=== PATIENT | female | born 1980 | race American Indian/Alaskan Native ===

== ENCOUNTER 2016-05-09 16:28 | Observation (INO) | payer OTHER ==
[2016-05-09 16:42] VITALS: BMI 20.7
[2016-05-09] MEDS ORDERED: Sodium Chloride 0.9% 1,000 ML IV STA (17:12)
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
[2016-05-09 17:40] LABS: HEMATOCRIT 24.5 % (36.0-48.0); MEAN CELL VOLUME 95.7 fL (80.0-105.0); MEAN CORPUSCULAR HEMOGLOBIN 34.4 pg (25.0-35.0); MEAN CORPUSCULAR HGB CONC 35.9 g/dl (31.0-37.0); MEAN PLATELET VOLUME 10.7 fl (7.0-11.0); PLATELET COUNT 149 10^3/uL (120.0-450.0); WHITE BLOOD COUNT 8.3 10^3/ul (4.5-11.0)
[2016-05-09 17:43] LABS: ADD MANUAL DIFF? YES
[2016-05-09 17:44] LABS: RETIC% 15.89 % (0.5-1.5)
[2016-05-09 17:47] LABS: ALB/GLOB RATIO 0.8 (1.1-1.8); ALKALINE PHOSPHATASE 121 U/L (38-133); ALT/SGPT 91 U/L (7-56); AST/SGOT 148 U/L (15-39); BILIRUBIN,TOTAL 2.6 mg/dL (0.2-1.3); BLOOD UREA NITROGEN 16 mg/dL (7-21); CALCIUM 9.2 mg/dL (8.4-10.5); CARBON DIOXIDE 33 mmol/L (21-33); CHLORIDE 96 mmol/L (98-107); GFR AFRICAN-AMERICAN > 60; GLUCOSE,RANDOM 107 mg/dL (70-110); POTASSIUM 4.3 mmol/L (3.6-5.0); SODIUM 137 mmol/L (132-148); TOTAL PROTEIN 8.4 g/dL (5.8-8.3)
[2016-05-09] MEDS ORDERED: HYDROmorphone 1 mg/ml ISec IVP STA ×2 (18:20→19:53)
[2016-05-09 18:21] LABS: EOSINOPHIL 3 % (0.0-3.0); NEUTROPHIL 38 % (50.0-70.0); NUCLEATED RED BLOOD CELL 3 %
[2016-05-09 18:22] LABS: ANISOCYTOSIS 2+; HYPOCHROMIA 1+; LARGE PLATELETS PRESENT; MICROCYTOSIS 1+; POIKILOCYTOSIS 2+; POLYCHROMASIA 1+; TARGET CELLS 1+
[2016-05-09 19:32] LABS: INR 1.09 (0.93-1.08); PARTIAL THROMBOPLASTIN TIME 27.3 Seconds (23.7-30.8)
[2016-05-09] MEDS ORDERED: Sodium Chloride 0.9% 500 ML IV STA (19:54)
[2016-05-10] MEDS ORDERED: FLUTICASONE PROPIONATE 110 MCG PO PRN (00:35)
[2016-05-10] MEDS: HYDROmorphone 0.5 mg/0.5 ml ISec IVP PRN ×6 (00:56→20:32)
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
[2016-05-10] MEDS: Potassium Chloride 20 MEQ in Dextrose 5%/0.45% NS 1,000 ML IV SCH ×3 (01:56→17:09)
[2016-05-10 07:52] LABS: ADD MANUAL DIFF? NO
[2016-05-10 07:58] LABS: BASO # 0.03 K/mm3 (0.0-2.0); BASO % 0.4 % (0.0-3.0); EOS # 0.1 (0.0-0.7); EOS % 1.7 % (1.5-5.0); GRAN % 33.4 % (50.0-68.0); LYMPH % 51.9 % (22.0-35.0); MEAN CELL VOLUME 97.6 fL (80.0-105.0); MEAN CORPUSCULAR HEMOGLOBIN 34.4 pg (25.0-35.0); MEAN CORPUSCULAR HGB CONC 35.3 g/dl (31.0-37.0); MEAN PLATELET VOLUME 10.2 fl (7.0-11.0); MONO % 12.6 % (1.0-6.0); PLATELET COUNT 135 10^3/uL (120.0-450.0); WHITE BLOOD COUNT 7.8 10^3/ul (4.5-11.0)
[2016-05-10 08:12] LABS: ALB/GLOB RATIO 0.8 (1.1-1.8); ALKALINE PHOSPHATASE 100 U/L (38-133); ALT/SGPT 82 U/L (7-56); AST/SGOT 129 U/L (15-39); BILIRUBIN,DIRECT 0.8 mg/dL (0.0-0.4); BILIRUBIN,TOTAL 1.8 mg/dL (0.2-1.3); BLOOD UREA NITROGEN 11 mg/dL (7-21); CALCIUM 8.1 mg/dL (8.4-10.5); CARBON DIOXIDE 29 mmol/L (21-33); CHLORIDE 102 mmol/L (98-107); GFR AFRICAN-AMERICAN > 60; GLUCOSE,RANDOM 97 mg/dL (70-110); MAGNESIUM 1.7 mg/dL (1.7-2.2); PHOSPHOROUS 4.4 mg/dL (2.5-4.5); POTASSIUM 4.5 mmol/L (3.6-5.0); SODIUM 136 mmol/L (132-148); TOTAL PROTEIN 7.2 g/dL (5.8-8.3)
[2016-05-10 08:16] LABS: IRON 224 ug/dL (45-180)
[2016-05-10 08:25] LABS: HEMATOCRIT 20.7 % (36.0-48.0)
[2016-05-10 08:40] LABS: ARTERIAL BLOOD GAS HCO3 23.7 mmol/L (21-28); ARTERIAL BLOOD GAS O2 CAPACITY 9.8 mL/dl (16-24); ARTERIAL BLOOD GAS O2 CONTENT 9.7 ML/dl (15-23); ARTERIAL BLOOD GAS PH 7.35 (7.35-7.45); ARTERIAL BLOOD HGB O2 SAT 93.9 % (95.0-98.0); CARBOXYHEMOGLOBIN 4.1 % (0.5-1.5); HHB 1.4 % (0-5); METHEMOGLOBIN 0.6 % (0.0-3.0)
[2016-05-10] MEDS: Pantoprazole 40 mg EC Tab PO SCH ×2 (08:59→17:00)
[2016-05-10] MEDS: POLYETHYLENE GLYCOL 3350 17 GM/Dose PACKET PO SCH (08:59)
[2016-05-10] MEDS: Divalproex 250 mg DR (BID formulation) PO SCH ×2 (08:59→17:02)
--- NOTE | 2016-05-10 09:08 | RAD ---
HISTORY: back pain COMPARISON: 04/22/2016 FINDINGS: LUNGS: No active pulmonary disease. PLEURA: No significant pleural effusion identified, no pneumothorax apparent. CARDIOVASCULAR: Mild cardiomegaly OSSEOUS STRUCTURES: No significant abnormalities. VISUALIZED UPPER ABDOMEN: Normal. OTHER FINDINGS: Right-sided Port-A-Cath IMPRESSION: No active disease.
--- NOTE | 2016-05-10 10:42 | CARD ---
APPROVED REPORT EKG Measurement Heart [id number] <Conclusion> Normal sinus rhythm Nonspecific T wave abnormality No change
[2016-05-10 13:10] LABS: FOLATE 5.9 ng/mL
[2016-05-11] MEDS: HYDROmorphone 0.5 mg/0.5 ml ISec IVP PRN ×3 (01:41→13:05)
[2016-05-11 07:27] LABS: MEAN CELL VOLUME 97.8 fL (80.0-105.0); MEAN CORPUSCULAR HEMOGLOBIN 34.6 pg (25.0-35.0); MEAN CORPUSCULAR HGB CONC 35.4 g/dl (31.0-37.0); MEAN PLATELET VOLUME 10.4 fl (7.0-11.0); PLATELET COUNT 151 10^3/uL (120.0-450.0); WHITE BLOOD COUNT 7.7 10^3/ul (4.5-11.0)
[2016-05-11 07:29] VITALS: O2SAT 97
[2016-05-11 07:35] LABS: ALB/GLOB RATIO 0.8 (1.1-1.8); ALKALINE PHOSPHATASE 98 U/L (38-133); ALT/SGPT 96 U/L (7-56); AST/SGOT 144 U/L (15-39); BILIRUBIN,TOTAL 2.2 mg/dL (0.2-1.3); BLOOD UREA NITROGEN 10 mg/dL (7-21); CALCIUM 8.7 mg/dL (8.4-10.5); CARBON DIOXIDE 30 mmol/L (21-33); CHLORIDE 99 mmol/L (98-107); GFR AFRICAN-AMERICAN > 60; GLUCOSE,RANDOM 104 mg/dL (70-110); MAGNESIUM 1.6 mg/dL (1.7-2.2); PHOSPHOROUS 4.7 mg/dL (2.5-4.5); POTASSIUM 5.1 mmol/L (3.6-5.0); SODIUM 133 mmol/L (132-148); TOTAL PROTEIN 7.6 g/dL (5.8-8.3)
[2016-05-11 07:52] LABS: RETIC% 15.21 % (0.5-1.5)
[2016-05-11 07:53] LABS: HEMATOCRIT 22.3 % (36.0-48.0)
[2016-05-11] MEDS ORDERED: Magnesium Sulfate 2 GM in Sodium Chloride 0.9% 100 ML IVPB ONE (07:56)
[2016-05-11] MEDS: Divalproex 250 mg DR (BID formulation) PO SCH (09:27)
[2016-05-11] MEDS: Potassium Chloride 20 MEQ in Dextrose 5%/0.45% NS 1,000 ML IV SCH (09:27)
[2016-05-11] MEDS: Pantoprazole 40 mg EC Tab PO SCH (09:28)
[2016-05-11] MEDS: POLYETHYLENE GLYCOL 3350 17 GM/Dose PACKET PO SCH (09:39)
--- NOTE | 2016-05-11 12:40 | CP.PCM.DIS ---
<Taya Ron - Last Filed: 05/11/16 22:36> Provider - Provider Date of Admission: 05/10/16 00:05 Attending physician: Marco Green MD Primary care physician: Charissa Gill MD Consults: Heme/onc Tristian Palmer Time Spent in preparation of Discharge (in minutes): 40 Diagnosis - Discharge Diagnosis (1) Sickle cell crisis Status: Resolved (2) Depression Status: Chronic (3) Elevated LFTs Status: Chronic (4) Bipolar disorder Status: Chronic (5) Anxiety Status: Chronic (6) Cerebral palsy Status: Chronic Hospital Course - Lab Results Lab Results: Most Recent Lab Values WBC 7.7 10^3/ul (4.5-11.0) 05/11/16 07:12 RBC 2.28 10^6/uL (3.5-6.1) L 05/11/16 07:12 Hgb 7.9 gm/dL (12.0-16.0) L 05/11/16 07:12 Hct 22.3 % (36.0-48.0) L 05/11/16 07:12 MCV 97.8 fL (80.0-105.0) 05/11/16 07:12 MCH 34.6 pg (25.0-35.0) 05/11/16 07:12 MCHC 35.4 g/dl (31.0-37.0) 05/11/16 07:12 Plt Count 151 10^3/uL (120.0-450.0) 05/11/16 07:12 MPV 10.4 fl (7.0-11.0) 05/11/16 07:12 Gran % 33.4 % (50.0-68.0) L 05/10/16 07:30 Lymph % (Auto) 51.9 % (22.0-35.0) H 05/10/16 07:30 Woodruff % (Auto) 12.6 % (1.0-6.0) H 05/10/16 07:30 Eos % (Auto) 1.7 % (1.5-5.0) 05/10/16 07:30 Baso % (Auto) 0.4 % (0.0-3.0) 05/10/16 07:30 Gran # 2.60 (1.4-6.5) 05/10/16 07:30 Lymph # 4.0 (1.2-3.4) H 05/10/16 07:30 Woodruff # 1.0 (0.1-0.6) H 05/10/16 07:30 Eos # 0.1 (0.0-0.7) 05/10/16 07:30 Baso # 0.03 K/mm3 (0.0-2.0) 05/10/16 07:30 Neutrophils % (Manual) 38 % (50.0-70.0) L 05/09/16 17:30 Lymphocytes % (Manual) 51 % (22.0-35.0) H 05/09/16 17:30 Monocytes % (Manual) 8 % (1.0-6.0) H 05/09/16 17:30 Eosinophils % (Manual) 3 % (0.0-3.0) 05/09/16 17:30 Nucleated RBC % 3 % 05/09/16 17:30 Large Platelets Present 05/09/16 17:30 Polychromasia 1+ 05/09/16 17:30 Hypochromasia 1+ 05/09/16 17:30 Poikilocytosis (manual 2+ 05/09/16 17:30 Anisocytosis (manual) 2+ 05/09/16 17:30 Microcytosis (manual) 1+ 05/09/16 17:30 Macrocytosis (manual) 1+ 05/09/16 17:30 Sickle Cells 2+ 05/09/16 17:30 Target Cells 1+ 05/09/16 17:30 Retic Count 15.21 % (0.5-1.5) H* 05/11/16 07:00 PT 11.8 Seconds (9.9-11.8) 05/09/16 17:50 INR 1.09 (0.93-1.08) H 05/09/16 17:50 APTT 27.3 Seconds (23.7-30.8) 05/09/16 17:50 pCO2 43 mm/Hg (35-45) 05/10/16 08:30 pO2 87.0 mm/Hg (80-100) 05/10/16 08:30 HCO3 23.7 mmol/L (21-28) 05/10/16 08:30 ABG pH 7.35 (7.35-7.45) 05/10/16 08:30 ABG Total CO2 25.0 mmol.L (22-28) 05/10/16 08:30 ABG O2 Saturation 98.5 % (95-98) H 05/10/16 08:30 ABG O2 Content 9.7 ML/dl (15-23) L 05/10/16 08:30 ABG Base Excess -1.8 mmol/L (-2.0-3.0) 05/10/16 08:30 ABG Hemoglobin 7.2 g/dL (11.7-17.4) L 05/10/16 08:30 ABG Carboxyhemoglobin 4.1 % (0.5-1.5) H 05/10/16 08:30 POC ABG HHb (Measured) 1.4 % (0-5) 05/10/16 08:30 ABG Methemoglobin 0.6 % (0.0-3.0) 05/10/16 08:30 ABG O2 Capacity 9.8 mL/dl (16-24) L 05/10/16 08:30 Hgb O2 Saturation 93.9 % (95.0-98.0) L 05/10/16 08:30 FiO2 21.0 % 05/10/16 08:30 Sodium 133 mmol/L (132-148) 05/11/16 07:12 Potassium 5.1 mmol/L (3.6-5.0) H 05/11/16 07:12 Chloride 99 mmol/L (98-107) 05/11/16 07:12 Carbon Dioxide 30 mmol/L (21-33) 05/11/16 07:12 Anion Gap 9 (10-20) L 05/11/16 07:12 BUN 10 mg/dL (7-21) 05/11/16 07:12 Creatinine 0.4 mg/dL (0.5-1.4) L 05/11/16 07:12 Est GFR ( Amer) > 60 05/11/16 07:12 Est GFR (Non-Af Amer) > 60 05/11/16 07:12 Random Glucose 104 mg/dL (70-110) 05/11/16 07:12 Calcium 8.7 mg/dL (8.4-10.5) 05/11/16 07:12 Phosphorus 4.7 mg/dL (2.5-4.5) H 05/11/16 07:12 Magnesium 1.6 mg/dL (1.7-2.2) L 05/11/16 07:12 Iron 224 ug/dL (45-180) H 05/10/16 07:30 TIBC 230 ug/dL (265-497) L 05/10/16 07:30 % Saturation 97 % (20-55) H 05/10/16 07:30 Transferrin 158.55 mg/dL (206-381) L 05/10/16 07:30 Ferritin > 63776.0 ng/mL 05/10/16 07:30 Total Bilirubin 2.2 mg/dL (0.2-1.3) H 05/11/16 07:12 Direct Bilirubin 0.8 mg/dL (0.0-0.4) H 05/10/16 07:30 AST 144 U/L (15-39) H 05/11/16 07:12 ALT 96 U/L (7-56) H 05/11/16 07:12 Alkaline Phosphatase 98 U/L (38-133) 05/11/16 07:12 Lactate Dehydrogenase 782 U/L (333-699) H 05/09/16 17:30 Total Protein 7.6 g/dL (5.8-8.3) 05/11/16 07:12 Albumin 3.4 g/dL (3.0-4.8) 05/11/16 07:12 Globulin 4.2 gm/dL 05/11/16 07:12 Albumin/Globulin Ratio 0.8 (1.1-1.8) L 05/11/16 07:12 Vitamin B12 417 pg/mL (239-931) 05/10/16 07:30 Folate 5.9 ng/mL 05/10/16 07:30 Valproic Acid 10 ug/mL (50.0-100.0) L 05/10/16 07:30 Blood Type B POSITIVE 05/10/16 00:49 Antibody Screen Negative 05/10/16 00:49 BBK History Checked Patient has bt 05/10/16 00:49 - Hospital Course Hospital Course: 35 year old female with past medical history of cerebral palsy , bipolar disorder, depression, sickle cell disease, PTSD, anxiety, pancreatitis , previous sickle cell crisis, and asthma presents for generalized body aches. Patient was recently admitted to [facility] for sickle cell crisis, and was discharged on 04/30/16. She initially states that her body aches began 1 day prior, but on repeat questioning states they have been ongoing for ~1 week. She describes it as a generalized body pain, burning sensation, similar to her prior sickle cell crises. Home pain medications failed to control her pain. Denies chest pain, shortness of breath, nausea, emesis, focal weakness, vision changes, loss of gait, or syncopal/near-syncopal episodes. Pain control with 0.5mg IV dailudid prn and aggressive fluid hydration. Iron panel showed Iron of 224, TIBC of 230, saturation of 97, transferrin of 158.55, B12, Folate lvl within normal limits. Heme/onc was consulted. Patient seems to resting comfortably, plan on decreasing fluid rate over the weekend. Pain managment remains the same, on regular diet. Throughout patient's hospital course patient did not speak much, most of her response were one or two words. Nursing staff report patient was seen ambulating by herself without difficulties, but refused to be walked by staff. When patient was asked if there is any social issues at home, she denied. Offered psychiatry consult but refused. The discharge plan and follow ups were extensively discussed with the patient who verbalized with understanding. At this time, after discussion of all issues, the patient was deemed medically fit for discharge. - Date & Time of H&P Date of H&P: 05/10/16 Time of H&P: 02:39 Discharge Exam - Head Exam Head Exam: ATRAUMATIC, NORMAL INSPECTION, NORMOCEPHALIC - Eye Exam Eye Exam: Normal appearance - ENT Exam ENT Exam: Mucous Membranes Moist - Neck Exam Neck exam: Normal Inspection - Respiratory Exam Respiratory Exam: Clear to PA & Lateral, NORMAL BREATHING PATTERN, UNREMARKABLE - Cardiovascular Exam Cardiovascular Exam: Tachycardia, REGULAR RHYTHM, +S1, +S2 - GI/Abdominal Exam GI & Abdominal Exam: Normal Bowel Sounds, Soft - Extremities Exam Extremities exam: pedal pulses present - Neurological Exam Neurological exam: Alert, Oriented x3 - Psychiatric Exam Psychiatric exam: Flat Affect - Skin Skin Exam: Intact, Normal Color, Warm Discharge Plan - Follow Up Plan Condition: GOOD Disposition: HOME/ ROUTINE Instructions: Sickle Cell Crisis (DC) Additional Instructions: Patient was instructed with follow up with PMD and Heme/onc within 1 week of hospital discharge Patient will take home meds as instructed Go to the nearest ED if symptoms worsen or return Referrals: Charissa Gill MD [Primary Care Provider] - Tristian Palacios MD [Staff Provider] - <Marco Green - Last Filed: 05/12/16 11:20> Provider - Provider Date of Admission: 05/10/16 00:05 Attending physician: Marco Green MD Primary care physician: Charissa Gill MD Hospital Course - Lab Results Lab Results: Most Recent Lab Values WBC 7.7 10^3/ul (4.5-11.0) 05/11/16 07:12 RBC 2.28 10^6/uL (3.5-6.1) L 05/11/16 07:12 Hgb 7.9 gm/dL (12.0-16.0) L 05/11/16 07:12 Hct 22.3 % (36.0-48.0) L 05/11/16 07:12 MCV 97.8 fL (80.0-105.0) 05/11/16 07:12 MCH 34.6 pg (25.0-35.0) 05/11/16 07:12 MCHC 35.4 g/dl (31.0-37.0) 05/11/16 07:12 Plt Count 151 10^3/uL (120.0-450.0) 05/11/16 07:12 MPV 10.4 fl (7.0-11.0) 05/11/16 07:12 Gran % 33.4 % (50.0-68.0) L 05/10/16 07:30 Lymph % (Auto) 51.9 % (22.0-35.0) H 05/10/16 07:30 Woodruff % (Auto) 12.6 % (1.0-6.0) H 05/10/16 07:30 Eos % (Auto) 1.7 % (1.5-5.0) 05/10/16 07:30 Baso % (Auto) 0.4 % (0.0-3.0) 05/10/16 07:30 Gran # 2.60 (1.4-6.5) 05/10/16 07:30 Lymph # 4.0 (1.2-3.4) H 05/10/16 07:30 Woodruff # 1.0 (0.1-0.6) H 05/10/16 07:30 Eos # 0.1 (0.0-0.7) 05/10/16 07:30 Baso # 0.03 K/mm3 (0.0-2.0) 05/10/16 07:30 Neutrophils % (Manual) 38 % (50.0-70.0) L 05/09/16 17:30 Lymphocytes % (Manual) 51 % (22.0-35.0) H 05/09/16 17:30 Monocytes % (Manual) 8 % (1.0-6.0) H 05/09/16 17:30 Eosinophils % (Manual) 3 % (0.0-3.0) 05/09/16 17:30 Nucleated RBC % 3 % 05/09/16 17:30 Large Platelets Present 05/09/16 17:30 Polychromasia 1+ 05/09/16 17:30 Hypochromasia 1+ 05/09/16 17:30 Poikilocytosis (manual 2+ 05/09/16 17:30 Anisocytosis (manual) 2+ 05/09/16 17:30 Microcytosis (manual) 1+ 05/09/16 17:30 Macrocytosis (manual) 1+ 05/09/16 17:30 Sickle Cells 2+ 05/09/16 17:30 Target Cells 1+ 05/09/16 17:30 Retic Count 15.21 % (0.5-1.5) H* 05/11/16 07:00 PT 11.8 Seconds (9.9-11.8) 05/09/16 17:50 INR 1.09 (0.93-1.08) H 05/09/16 17:50 APTT 27.3 Seconds (23.7-30.8) 05/09/16 17:50 pCO2 43 mm/Hg (35-45) 05/10/16 08:30 pO2 87.0 mm/Hg (80-100) 05/10/16 08:30 HCO3 23.7 mmol/L (21-28) 05/10/16 08:30 ABG pH 7.35 (7.35-7.45) 05/10/16 08:30 ABG Total CO2 25.0 mmol.L (22-28) 05/10/16 08:30 ABG O2 Saturation 98.5 % (95-98) H 05/10/16 08:30 ABG O2 Content 9.7 ML/dl (15-23) L 05/10/16 08:30 ABG Base Excess -1.8 mmol/L (-2.0-3.0) 05/10/16 08:30 ABG Hemoglobin 7.2 g/dL (11.7-17.4) L 05/10/16 08:30 ABG Carboxyhemoglobin 4.1 % (0.5-1.5) H 05/10/16 08:30 POC ABG HHb (Measured) 1.4 % (0-5) 05/10/16 08:30 ABG Methemoglobin 0.6 % (0.0-3.0) 05/10/16 08:30 ABG O2 Capacity 9.8 mL/dl (16-24) L 05/10/16 08:30 Hgb O2 Saturation 93.9 % (95.0-98.0) L 05/10/16 08:30 FiO2 21.0 % 05/10/16 08:30 Sodium 133 mmol/L (132-148) 05/11/16 07:12 Potassium 5.1 mmol/L (3.6-5.0) H 05/11/16 07:12 Chloride 99 mmol/L (98-107) 05/11/16 07:12 Carbon Dioxide 30 mmol/L (21-33) 05/11/16 07:12 Anion Gap 9 (10-20) L 05/11/16 07:12 BUN 10 mg/dL (7-21) 05/11/16 07:12 Creatinine 0.4 mg/dL (0.5-1.4) L 05/11/16 07:12 Est GFR ( Amer) > 60 05/11/16 07:12 Est GFR (Non-Af Amer) > 60 05/11/16 07:12 Random Glucose 104 mg/dL (70-110) 05/11/16 07:12 Calcium 8.7 mg/dL (8.4-10.5) 05/11/16 07:12 Phosphorus 4.7 mg/dL (2.5-4.5) H 05/11/16 07:12 Magnesium 1.6 mg/dL (1.7-2.2) L 05/11/16 07:12 Iron 224 ug/dL (45-180) H 05/10/16 07:30 TIBC 230 ug/dL (265-497) L 05/10/16 07:30 % Saturation 97 % (20-55) H 05/10/16 07:30 Transferrin 158.55 mg/dL (206-381) L 05/10/16 07:30 Ferritin > 89777.0 ng/mL 05/10/16 07:30 Total Bilirubin 2.2 mg/dL (0.2-1.3) H 05/11/16 07:12 Direct Bilirubin 0.8 mg/dL (0.0-0.4) H 05/10/16 07:30 AST 144 U/L (15-39) H 05/11/16 07:12 ALT 96 U/L (7-56) H 05/11/16 07:12 Alkaline Phosphatase 98 U/L (38-133) 05/11/16 07:12 Lactate Dehydrogenase 782 U/L (333-699) H 05/09/16 17:30 Total Protein 7.6 g/dL (5.8-8.3) 05/11/16 07:12 Albumin 3.4 g/dL (3.0-4.8) 05/11/16 07:12 Globulin 4.2 gm/dL 05/11/16 07:12 Albumin/Globulin Ratio 0.8 (1.1-1.8) L 05/11/16 07:12 Vitamin B12 417 pg/mL (239-931) 05/10/16 07:30 Folate 5.9 ng/mL 05/10/16 07:30 Valproic Acid 10 ug/mL (50.0-100.0) L 05/10/16 07:30 Blood Type B POSITIVE 05/10/16 00:49 Antibody Screen Negative 05/10/16 00:49 BBK History Checked Patient has bt 05/10/16 00:49 Attending/Attestation - Attestation I have personally seen and examined this patient.: Yes I have fully participated in the care of the patient.: Yes I have reviewed all pertinent clinical information, including history, physical exam and plan: Yes Notes (Text): 05/11/16 35 year old female with past medical history of bipolar, depression, anemia, history of iron overload, and sickle cell disease who presented with generalized aches. She was admitted for acute sickle cell crisis. She was started on iv fluids, oxygen and analgesics. Her symptoms improved the following 2 days. She appeared comfortable in bed. As per nurse she has been ambulating in her room. She was seen by her biomed tech as well. She has anemia which is stable. Patient is discharged to her [place] [facility] today. Follow up with her pmd. Follow up with biomed tech. Marco Green MD Hospitalist.
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
[2016-05-11 16:08] VITALS: BP 102/71; PULSE 82; RESP 18; TEMP 98.6
== END 2016-05-11 17:46 | disposition home or self-care (01) ==
LOC: ED 16:28 → ERH 05-10 00:05 → 3RNO 05-10 02:41
PROVIDERS: ADMIT Hospitalist; ATTEND Internal Medicine
DX: D57.00 Hb-SS disease with crisis, unspecified (principal); E83.111 Hemochromatosis due to repeated red blood cell transfusions; D69.6 Thrombocytopenia, unspecified; F31.9 Bipolar disorder, unspecified; Z96.643 Presence of artificial hip joint, bilateral; F43.10 Post-traumatic stress disorder, unspecified; G80.9 Cerebral palsy, unspecified; I10 Essential (primary) hypertension; J45.909 Unspecified asthma, uncomplicated; Z87.440 Personal history of urinary (tract) infections; Z90.49 Acquired absence of other specified parts of digestive tract; Z90.81 Acquired absence of spleen; Z87.42 Personal history of other diseases of the female genital tract; Z88.6 Allergy status to analgesic agent; Z88.5 Allergy status to narcotic agent; Z91.018 Allergy to other foods; R71.8 Other abnormality of red blood cells; D75.89 Other specified diseases of blood and blood-forming organs; J84.10 Pulmonary fibrosis, unspecified; Z87.19 Personal history of other diseases of the digestive system; K59.00 Constipation, unspecified; R79.89 Other specified abnormal findings of blood chemistry
CPT/HCPCS: 36415; 71010; 80053; 80164; 82248; 82607; 82728; 82746; 82803; 83615; 83735; 84100; 84466; 85025; 85027; 85044; 85610; 85730; 86850; 86900; 93005; 96361; 96365; 96375; 96376; 99283; G0378; J1170; J2405; J3475; J7040; J7042

== ENCOUNTER 2016-05-19 07:25 | Observation (INO) | payer OTHER ==
[2016-05-19 07:27] VITALS: BMI 20.7
[2016-05-19 07:55] VITALS: RESP 18; TEMP 98.7
[2016-05-19] MEDS ORDERED: Sodium Chloride 0.9% 1,000 ML IV STA ×2 (08:07→09:25)
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
[2016-05-19 09:09] LABS: ADD MANUAL DIFF? NO
[2016-05-19 09:20] LABS: BASO # 0.03 [, K/mm3] (0.0-2.0); BASO % 0.3 % (0.0-3.0); EOS # 0.1 (0.0-0.7); EOS % 0.9 % (1.5-5.0); GRAN # 5.44 (1.4-6.5); GRAN % 56.8 % (50.0-68.0); LYMPH # 3.1 (1.2-3.4); LYMPH % 32.4 % (22.0-35.0); MEAN CELL VOLUME 101.7 fL (80.0-105.0); MEAN CORPUSCULAR HEMOGLOBIN 36.6 pg (25.0-35.0); MEAN PLATELET VOLUME 10.6 fl (7.0-11.0); MONO # 0.9 (0.1-0.6); MONO % 9.6 % (1.0-6.0); PLATELET COUNT 97 [, 10^3/uL] (120.0-450.0); WHITE BLOOD COUNT 9.6 [, 10^3/ul] (4.5-11.0)
[2016-05-19 09:22] LABS: HEMATOCRIT 23.6 % (36.0-48.0)
[2016-05-19 09:23] LABS: RETIC% 16.19 % (0.5-1.5)
[2016-05-19 09:26] LABS: ALB/GLOB RATIO 0.9 (1.1-1.8); ALKALINE PHOSPHATASE 124 U/L (38-133); ALT/SGPT 108 U/L (7-56); AST/SGOT 165 U/L (15-39); BILIRUBIN,TOTAL 2.7 mg/dL (0.2-1.3); BLOOD UREA NITROGEN 18 mg/dL (7-21); CALCIUM 9.1 mg/dL (8.4-10.5); CARBON DIOXIDE 28 mmol/L (21-33); CHLORIDE 97 mmol/L (98-107); GFR AFRICAN-AMERICAN > 60; GLUCOSE,RANDOM 98 mg/dL (70-110); MAGNESIUM 1.6 mg/dL (1.7-2.2); SODIUM 136 mmol/L (132-148); TOTAL PROTEIN 8.7 g/dL (5.8-8.3)
[2016-05-19 09:37] LABS: TROPONIN I 0.02 ng/mL
[2016-05-19 12:49] VITALS: O2SAT 98
[2016-05-19 12:50] VITALS: BP 122/70; PULSE 88
[2016-05-19] MEDS ORDERED: HYDROmorphone 1 mg/ml ISec IVP STA (12:59)
--- NOTE | 2016-05-19 14:18 | RAD ---
HISTORY: chest pain COMPARISON: 04/22/2016 FINDINGS: The right IJV line terminates at the cavoatrial junction. LUNGS: There are low lung volumes. There is airspace disease in the left lower lobe. PLEURA: No significant pleural effusion identified, no pneumothorax apparent. CARDIOVASCULAR: Normal. OSSEOUS STRUCTURES: No significant abnormalities. VISUALIZED UPPER ABDOMEN: Normal. OTHER FINDINGS: None. IMPRESSION: Suspect left lower lobe atelectasis/pneumonia.
--- NOTE | 2016-05-19 18:26 | CARD ---
APPROVED REPORT EKG Measurement Heart [id number] <Conclusion> Normal sinus rhythm Nonspecific T wave abnormality Abnormal ECG
== END 2016-05-19 14:04 | disposition home or self-care (01) ==
LOC: ED 07:25 → EROBSV 08:09
PROVIDERS: ADMIT Emergency Medicine; ATTEND Emergency Medicine
DX: D57.00 Hb-SS disease with crisis, unspecified (principal); I10 Essential (primary) hypertension
CPT/HCPCS: 36415; 71010; 80053; 82550; 83615; 83735; 84484; 85025; 85044; 93005; 96361; 96374; 99284; G0378; J1170; J7040

== ENCOUNTER 2016-05-19 23:36 | Observation (INO) | payer OTHER ==
[2016-05-19 23:36] VITALS: BMI 20.7
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
[2016-05-20] MEDS ORDERED: Sodium Chloride 0.9% 1,000 ML IV STA (00:07)
[2016-05-20] MEDS ORDERED: HYDROmorphone 1 mg/ml ISec IVP STA ×2 (00:08→01:26)
[2016-05-20] MEDS ORDERED: DiphenhydrAMINE 50 mg/ml Inj IVP ONE ×2 (00:08→01:26)
[2016-05-20] MEDS ORDERED: Sodium Chloride 0.9% 1,000 ML IV SCH ×2 (00:15→02:45)
[2016-05-20 00:51] LABS: MEAN CELL VOLUME 101.7 fL (80.0-105.0); MEAN CORPUSCULAR HEMOGLOBIN 37.1 pg (25.0-35.0); MEAN CORPUSCULAR HGB CONC 36.4 g/dl (31.0-37.0); PLATELET COUNT 105 10^3/uL (120.0-450.0); WHITE BLOOD COUNT 10.1 10^3/ul (4.5-11.0)
[2016-05-20 01:01] LABS: INR 1.11 (0.93-1.08); PARTIAL THROMBOPLASTIN TIME 28.8 Seconds (23.7-30.8)
[2016-05-20 01:03] LABS: ALB/GLOB RATIO 0.9 (1.1-1.8); ALKALINE PHOSPHATASE 121 U/L (38-133); ALT/SGPT 98 U/L (7-56); AST/SGOT 148 U/L (15-39); BILIRUBIN,TOTAL 2.5 mg/dL (0.2-1.3); BLOOD UREA NITROGEN 11 mg/dL (7-21); CALCIUM 8.9 mg/dL (8.4-10.5); CARBON DIOXIDE 27 mmol/L (21-33); CHLORIDE 95 mmol/L (98-107); GFR AFRICAN-AMERICAN > 60; GLUCOSE,RANDOM 99 mg/dL (70-110); POTASSIUM 4.6 mmol/L (3.6-5.0); SODIUM 131 mmol/L (132-148); TOTAL PROTEIN 8.3 g/dL (5.8-8.3)
[2016-05-20 01:06] LABS: HEMATOCRIT 23.6 % (36.0-48.0); RETIC% 15.23 % (0.5-1.5)
[2016-05-20 01:14] LABS: TROPONIN I 0.02 ng/mL
[2016-05-20 01:24] LABS: RED CELL DISTRIBUTION WIDTH 32.9 % (11.5-14.5)
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
[2016-05-20 07:04] LABS: ALB/GLOB RATIO 0.8 (1.1-1.8); ALKALINE PHOSPHATASE 105 U/L (38-133); ALT/SGPT 97 U/L (7-56); AST/SGOT 139 U/L (15-39); BILIRUBIN,TOTAL 2.5 mg/dL (0.2-1.3); BLOOD UREA NITROGEN 9 mg/dL (7-21); CALCIUM 8.3 mg/dL (8.4-10.5); CARBON DIOXIDE 26 mmol/L (21-33); CHLORIDE 102 mmol/L (98-107); GFR AFRICAN-AMERICAN > 60; GLUCOSE,RANDOM 88 mg/dL (70-110); POTASSIUM 4.3 mmol/L (3.6-5.0); SODIUM 137 mmol/L (132-148); TOTAL PROTEIN 7.6 g/dL (5.8-8.3)
[2016-05-20 07:11] LABS: MEAN CELL VOLUME 102.4 fL (80.0-105.0); MEAN CORPUSCULAR HEMOGLOBIN 36.5 pg (25.0-35.0); MEAN CORPUSCULAR HGB CONC 35.7 g/dl (31.0-37.0); PLATELET COUNT 102 10^3/uL (120.0-450.0); WHITE BLOOD COUNT 9.7 10^3/ul (4.5-11.0)
[2016-05-20 07:19] LABS: IRON 175 ug/dL (45-180)
[2016-05-20 07:46] LABS: ADD MANUAL DIFF? YES; HEMATOCRIT 21.3 % (36.0-48.0)
--- NOTE | 2016-05-20 08:29 | RAD ---
HISTORY: pain COMPARISON: 05/19/2016 FINDINGS: LUNGS: No active pulmonary disease. PLEURA: No significant pleural effusion identified, no pneumothorax apparent. CARDIOVASCULAR: Mild cardiomegaly OSSEOUS STRUCTURES: No significant abnormalities. VISUALIZED UPPER ABDOMEN: Normal. OTHER FINDINGS: None. IMPRESSION: No active disease.
[2016-05-20 08:53] LABS: ATYPICAL LYMPHOCYTE 3 % (0.0-0.0)
[2016-05-20 08:54] LABS: ANISOCYTOSIS 1+; HYPOCHROMIA 2+; NEUTROPHIL 45 % (50.0-70.0); PLATELET ESTIMATE LOW (NORMAL); POIKILOCYTOSIS SLIGHT; POLYCHROMASIA SLIGHT; TARGET CELLS SLIGHT
[2016-05-20 08:55] LABS: NUCLEATED RED BLOOD CELL 1 %
[2016-05-20 08:56] LABS: OVALOCYTES 1+; TEAR DROP CELLS SLIGHT
[2016-05-20] MEDS: HYDROmorphone 0.5 mg/0.5 ml ISec IVP PRN ×4 (09:18→21:46)
[2016-05-20] MEDS: Divalproex 250 mg DR (BID formulation) PO SCH ×2 (09:21→17:26)
[2016-05-20] MEDS: Multivitamin Therapeutic Tab PO SCH (09:21)
--- NOTE | 2016-05-20 11:46 | CARD ---
APPROVED REPORT EKG Measurement Heart [id number] <Conclusion> Normal sinus rhythm Minimal voltage criteria for LVH, may be normal variant Nonspecific T wave abnormality Abnormal ECG
[2016-05-20] MEDS: Sodium Chloride 0.9% 1,000 ML IV SCH (13:19)
[2016-05-20] MEDS: QUEtiapine 50 mg XR Tab PO SCH (13:20)
[2016-05-20] MEDS: Hydrocerin(120 gm) TOP SCH (19:00)
[2016-05-20] MEDS: Mometasone 220 mcg/puff-14 puff Inh IH SCH (19:20)
[2016-05-21] MEDS: HYDROmorphone 0.5 mg/0.5 ml ISec IVP PRN ×6 (02:43→22:03)
[2016-05-21 06:58] LABS: ALB/GLOB RATIO 0.8 (1.1-1.8); ALKALINE PHOSPHATASE 115 U/L (38-133); ALT/SGPT 91 U/L (7-56); AST/SGOT 130 U/L (15-39); BILIRUBIN,TOTAL 2.4 mg/dL (0.2-1.3); BLOOD UREA NITROGEN 6 mg/dL (7-21); CALCIUM 8.4 mg/dL (8.4-10.5); CARBON DIOXIDE 27 mmol/L (21-33); CHLORIDE 102 mmol/L (98-107); GFR AFRICAN-AMERICAN > 60; GLUCOSE,RANDOM 86 mg/dL (70-110); POTASSIUM 4.1 mmol/L (3.6-5.0); SODIUM 137 mmol/L (132-148); TOTAL PROTEIN 7.5 g/dL (5.8-8.3)
[2016-05-21 07:16] LABS: MEAN CELL VOLUME 104.2 fL (80.0-105.0); MEAN CORPUSCULAR HEMOGLOBIN 37.2 pg (25.0-35.0); MEAN CORPUSCULAR HGB CONC 35.7 g/dl (31.0-37.0); MEAN PLATELET VOLUME 10.4 fl (7.0-11.0); PLATELET COUNT 126 10^3/uL (120.0-450.0); WHITE BLOOD COUNT 7.6 10^3/ul (4.5-11.0)
[2016-05-21 07:39] LABS: HEMATOCRIT 22.4 % (36.0-48.0)
[2016-05-21 07:40] LABS: RETIC% 12.86 % (0.5-1.5)
[2016-05-21 08:05] VITALS: RESP 18
[2016-05-21] MEDS: Divalproex 250 mg DR (BID formulation) PO SCH ×2 (10:57→18:32)
[2016-05-21] MEDS: Multivitamin Therapeutic Tab PO SCH (10:57)
[2016-05-21] MEDS: Hydrocerin(120 gm) TOP SCH (10:59)
[2016-05-21] MEDS: Sodium Chloride 0.9% 1,000 ML IV SCH (11:03)
[2016-05-21] MEDS: QUEtiapine 50 mg XR Tab PO SCH (13:51)
--- NOTE | 2016-05-21 16:01 | CP.PCM.PN ---
<Taya Ron - Last Filed: 05/21/16 22:59> Subjective - Date & Time of Evaluation Date of Evaluation: 05/21/16 Time of Evaluation: 09:00 - Subjective Subjective: Patient seen and examined at bedside. No acute events overnight. Patient is lethargic during examination, responded with short, one word answers. Patient reports of decreased of appetite and unable to ambulate due to weakness, but she was able walk to the restroom by herself. Patient still complains of chest pain and abdominal pain, requesting for more pain medication. Objective - Vital Signs/Intake and Output Vital Signs (last 24 hours): Temp Pulse Resp BP Pulse Ox 98.9 F 83 18 97/61 L 100 05/21/16 07:30 05/21/16 07:30 05/21/16 07:30 05/21/16 07:30 05/21/16 07:30 Intake and Output: 05/21/16 05/21/16 06:59 18:59 Intake Total 240 1560 Output Total 600 Balance 240 960 - Medications Medications: Current Medications Divalproex Sodium (Depakote Dr (*Bid*)) 250 mg PO BID [facility] PRN Reason: Protocol Last Admin: 05/21/16 10:57 Dose: 250 mg Docusate Sodium (Colace) 100 mg PO TID [facility] Last Admin: 05/21/16 13:52 Dose: Not Given Famotidine (Pepcid) 20 mg PO DAILY [facility] Last Admin: 05/21/16 10:57 Dose: 20 mg Folic Acid (Folic Acid) 1 mg PO DAILY [facility] Last Admin: 05/21/16 10:57 Dose: 1 mg Hydromorphone HCl (Dilaudid) 0.5 mg IVP Q4H PRN PRN Reason: Pain, severe (8-10) Last Admin: 05/21/16 14:49 Dose: 0.5 mg Hydroxyurea (Hydrea) 500 mg PO BID [facility] Last Admin: 05/21/16 10:59 Dose: 500 mg Sodium Chloride (Sodium Chloride 0.9%) 1,000 mls @ 80 mls/hr IV .[id number] [facility] Mometasone Furoate (Asmanex Twisthaler 220 Mcg) 220 puff IH QPM [facility] Last Admin: 05/20/16 19:20 Dose: 1 puff Multi-Ingredient Cream (Hydrocerin Cream) 0 ea TOP DAILY [facility] Last Admin: 05/21/16 10:59 Dose: 1 appl Multivitamins (Thera Tab) 1 tab PO DAILY [facility] Last Admin: 05/21/16 10:57 Dose: 1 tab Quetiapine Fumarate (Seroquel Xr) 100 mg PO DAILY [facility] PRN Reason: Protocol Last Admin: 05/21/16 13:51 Dose: Not Given Trazodone HCl (Desyrel) 50 mg PO HS [facility] Last Admin: 05/20/16 21:46 Dose: 50 mg Vitamin E (Vitamin E 400 Units Cap) 400 intlu PO DAILY [facility] Last Admin: 05/21/16 10:57 Dose: 400 intlu - Labs Labs: 05/21/16 06:00 05/21/16 06:00 PT 12.0 Seconds (9.9-11.8) H 05/20/16 00:20 INR 1.11 (0.93-1.08) H 05/20/16 00:20 APTT 28.8 Seconds (23.7-30.8) 05/20/16 00:20 - Constitutional Appears: No Acute Distress, Chronically Ill - Head Exam Head Exam: ATRAUMATIC, NORMOCEPHALIC - Eye Exam Eye Exam: Normal appearance - ENT Exam ENT Exam: Mucous Membranes Moist - Neck Exam Neck Exam: Normal Inspection - Respiratory Exam Respiratory Exam: Clear to Ausculation Bilateral, NORMAL BREATHING PATTERN. absent: Rhonchi, Wheezes, Respiratory Distress - Cardiovascular Exam Cardiovascular Exam: REGULAR RHYTHM, +S1, +S2. absent: Murmur - GI/Abdominal Exam GI & Abdominal Exam: Soft, Tenderness (diffused abdominal tenderness), Normal Bowel Sounds. absent: Hernia - Extremities Exam Extremities Exam: Normal Capillary Refill. absent: Pedal Edema, Tenderness - Neurological Exam Neurological Exam: Alert, Awake, Oriented x3 - Psychiatric Exam Additional comments: lethargic - Skin Skin Exam: Intact, Warm Assessment and Plan - Assessment and Plan (Free Text) Assessment: 35 year old female with past medical history of cerebral palsy, sickle cell anemia, HTN, bipolar disorder, and asthma was admitted for sickle cell crisis Generalized body aches Likely secondary to sickle cell crisis, known multiple crises Sees Dr. Palacios as outpatient, consultation placed H/H improving 822.4 today, with no active bleeding Decreased IVF NS to 80ml/hr Retic count improved, 12.86 today Iron 175, TIBC 240, %Sat 73 Continue dilaudid 0.5mg q4 PRN for pain Continue MVI and folate Continue Hydroxyurea 500mg po BID NC 2L O2 Vitals q4h Aspiration and fall precautions Advanced to regular diet as pt's lethargy improved Transaminitis - chronic At about known range of values Previous work up has been negative Improving AST/ALT, 130/91 Psych illness Will continue home medications Prophylactic measures Pepcid for GI ppx Colace for constipation Incentive spirometer <Marco Green - Last Filed: 05/22/16 06:47> Objective - Vital Signs/Intake and Output Vital Signs (last 24 hours): Temp Pulse Resp BP Pulse Ox 98.9 F 93 H 18 117/82 97 05/21/16 16:00 05/21/16 16:00 05/21/16 16:00 05/21/16 16:00 05/21/16 16:00 Intake and Output: 05/21/16 05/22/16 18:59 06:59 Intake Total 1560 120 Output Total 600 1000 Balance 960 -880 - Medications Medications: Current Medications Divalproex Sodium (Depakote Dr (*Bid*)) 250 mg PO BID [facility] PRN Reason: Protocol Last Admin: 05/21/16 18:32 Dose: 250 mg Docusate Sodium (Colace) 100 mg PO TID [facility] Last Admin: 05/21/16 18:33 Dose: 100 mg Famotidine (Pepcid) 20 mg PO DAILY [facility] Last Admin: 05/21/16 10:57 Dose: 20 mg Folic Acid (Folic Acid) 1 mg PO DAILY [facility] Last Admin: 05/21/16 10:57 Dose: 1 mg Hydromorphone HCl (Dilaudid) 0.5 mg IVP Q4H PRN PRN Reason: Pain, severe (8-10) Last Admin: 05/22/16 06:07 Dose: 0.5 mg Hydroxyurea (Hydrea) 500 mg PO BID [facility] Last Admin: 05/21/16 18:32 Dose: 500 mg Sodium Chloride (Sodium Chloride 0.9%) 1,000 mls @ 80 mls/hr IV .[id number] [facility] Mometasone Furoate (Asmanex Twisthaler 220 Mcg) 220 puff IH QPM [facility] Last Admin: 05/21/16 18:34 Dose: 1 puff Multi-Ingredient Cream (Hydrocerin Cream) 0 ea TOP DAILY [facility] Last Admin: 05/21/16 10:59 Dose: 1 appl Multivitamins (Thera Tab) 1 tab PO DAILY [facility] Last Admin: 05/21/16 10:57 Dose: 1 tab Quetiapine Fumarate (Seroquel Xr) 100 mg PO DAILY [facility] PRN Reason: Protocol Last Admin: 05/21/16 13:51 Dose: Not Given Trazodone HCl (Desyrel) 50 mg PO HS [facility] Last Admin: 05/21/16 22:03 Dose: 50 mg Vitamin E (Vitamin E 400 Units Cap) 400 intlu PO DAILY [facility] Last Admin: 05/21/16 10:57 Dose: 400 intlu - Labs Labs: 05/21/16 06:00 05/21/16 06:00 PT 12.0 Seconds (9.9-11.8) H 05/20/16 00:20 INR 1.11 (0.93-1.08) H 05/20/16 00:20 APTT 28.8 Seconds (23.7-30.8) 05/20/16 00:20 Attending/Attestation - Attestation I have personally seen and examined this patient.: Yes I have fully participated in the care of the patient.: Yes I have reviewed all pertinent clinical information, including history, physical exam and plan: Yes Notes (Text): 05/21/16 35 year old female with past medical history of sickle cell anemia, history of iron overload and bipolar disorder presented with generalized pain secondary to sickle cell crisis. She is on iv fluids and analgesics. Symptoms are slowly improving. Hematology is following the patient. Anemia and LFTs are stable. Reticulocyte count is improving. Out of bed to chair is ordered. Possible d/c planning in 24-48 hrs if symptoms continue to improve. Marco Green MD Hospitalist.
[2016-05-21] MEDS: Mometasone 220 mcg/puff-14 puff Inh IH SCH (18:34)
--- NOTE | 2016-05-22 01:09 | CP.PCM.CON ---
History of Present Illness - History of Present Illness History of Present Illness: 35 year old female with a history of sickle cell anemia and bipolar disorder, admitted with sickle cell vasocclusive crisis. She reports her pain began in her back and legs and spread to her whole body. This is consistent with prior sickle cell pain crisis. She denies shortness of breath and chest pain. Past medical history: Sickle cell disease, bipolar disorder. Past surgical history: portacath removal, cholecystectomy Family history: Both parents have sickle trait. Social history: Denies tobacco, alcohol, and illicit drug use. Allergies: Acetaminophen, aspirin, oxycodone. Review of systems: All remaining ROS including HEENT, cardiovascular, respiratory, gastrointestinal, genitourinary, musculoskeletal, dermatologic, neurologic, and psychiatric are negative unless mentioned in the HPI. Past Patient History - Infectious Disease Hx of Infectious Diseases: None - Tetanus Immunizations Tetanus Immunization: Up to Date - Past Medical History & Family History Past Medical History?: Yes - Past Social History Smoking Status: Unknown If Ever Smoked - CARDIAC Hx Cardiac Disorders: Yes Hx Hypertension: Yes - PULMONARY Hx Respiratory Disorders: Yes Hx Asthma: Yes Hx Bronchitis: Yes - NEUROLOGICAL Hx Neurological Disorder: Yes - HEENT Hx HEENT Problems: No - RENAL Hx Chronic Kidney Disease: No - ENDOCRINE/METABOLIC Hx Endocrine Disorders: Yes - HEMATOLOGICAL/ONCOLOGICAL Hx Blood Disorders: Yes Hx Anemia: Yes (Sickle Cell) Hx Sickle Cell Disease: Yes - INTEGUMENTARY Hx Dermatological Problems: No - MUSCULOSKELETAL/RHEUMATOLOGICAL Hx Falls: Yes - GASTROINTESTINAL Hx Gastrointestinal Disorders: Yes Hx Gall Bladder Disease: Yes (Cholecystectomy) Hx Pancreatitis: Yes - GENITOURINARY/GYNECOLOGICAL Hx Genitourinary Disorders: Yes Hx Sexually Transmitted Disorders: Yes (GENITAL HERPES) Hx Urinary Tract Infection: Yes - PSYCHIATRIC Hx Substance Use: No - SURGICAL HISTORY Hx Cholecystectomy: Yes Hx Joint Replacement: Yes Hx Musculoskeletal Surgery: Yes Hx Splenectomy: Yes - ANESTHESIA Hx Anesthesia: Yes Hx Anesthesia Reactions: No Hx Malignant Hyperthermia: No Meds Allergies/Adverse Reactions: Allergies Allergy/AdvReac Type Severity Reaction Status Date / Time acetaminophen Allergy RASH Verified 05/19/16 07:50 aspirin Allergy RASH Verified 05/19/16 07:50 coconut oil Allergy RASH Verified 05/19/16 07:50 morphine Allergy SWELLING Verified 05/19/16 07:50 mushroom Allergy URTICARIA Verified 05/19/16 07:50 oxycodone Allergy RASH Verified 05/19/16 07:50 - Medications Medications: Current Medications Divalproex Sodium (Depakote Dr (*Bid*)) 250 mg PO BID [facility] PRN Reason: Protocol Last Admin: 05/21/16 18:32 Dose: 250 mg Docusate Sodium (Colace) 100 mg PO TID [facility] Last Admin: 05/21/16 18:33 Dose: 100 mg Famotidine (Pepcid) 20 mg PO DAILY [facility] Last Admin: 05/21/16 10:57 Dose: 20 mg Folic Acid (Folic Acid) 1 mg PO DAILY [facility] Last Admin: 05/21/16 10:57 Dose: 1 mg Hydromorphone HCl (Dilaudid) 0.5 mg IVP Q4H PRN PRN Reason: Pain, severe (8-10) Last Admin: 05/21/16 22:03 Dose: 0.5 mg Hydroxyurea (Hydrea) 500 mg PO BID [facility] Last Admin: 05/21/16 18:32 Dose: 500 mg Sodium Chloride (Sodium Chloride 0.9%) 1,000 mls @ 80 mls/hr IV .[id number] [facility] Mometasone Furoate (Asmanex Twisthaler 220 Mcg) 220 puff IH QPM [facility] Last Admin: 05/21/16 18:34 Dose: 1 puff Multi-Ingredient Cream (Hydrocerin Cream) 0 ea TOP DAILY [facility] Last Admin: 05/21/16 10:59 Dose: 1 appl Multivitamins (Thera Tab) 1 tab PO DAILY [facility] Last Admin: 05/21/16 10:57 Dose: 1 tab Quetiapine Fumarate (Seroquel Xr) 100 mg PO DAILY [facility] PRN Reason: Protocol Last Admin: 05/21/16 13:51 Dose: Not Given Trazodone HCl (Desyrel) 50 mg PO HS [facility] Last Admin: 05/21/16 22:03 Dose: 50 mg Vitamin E (Vitamin E 400 Units Cap) 400 intlu PO DAILY [facility] Last Admin: 05/21/16 10:57 Dose: 400 intlu Physical Exam - Head Exam Head Exam: ATRAUMATIC - Eye Exam Eye Exam: Scleral icterus - ENT Exam ENT Exam: Mucous Membranes Dry - Respiratory Exam Respiratory Exam: NORMAL BREATHING PATTERN - Cardiovascular Exam Cardiovascular Exam: +S1, +S2 - GI/Abdominal Exam GI & Abdominal Exam: Normal Bowel Sounds - Extremities Exam Extremities exam: Positive for: normal inspection - Neurological Exam Neurological exam: Oriented x3 - Psychiatric Exam Psychiatric exam: Flat Affect, Normal Mood - Skin Skin Exam: Warm Results - Vital Signs Recent Vital Signs: Last Vital Signs Temp 98.9 F 05/21/16 16:00 Pulse 93 H 05/21/16 16:00 Resp 18 05/21/16 16:00 BP 117/82 05/21/16 16:00 Pulse Ox 97 05/21/16 16:00 - Labs Result Diagrams: 05/21/16 06:00 05/21/16 06:00 Labs: Laboratory Results - last 24 hr 05/21/16 06:00 WBC 7.6 D RBC 2.15 L Hgb 8.0 L Hct 22.4 L MCV 104.2 MCH 37.2 H MCHC 35.7 Plt Count 126 MPV 10.4 Retic Count 12.86 H* Sodium 137 Potassium 4.1 Chloride 102 Carbon Dioxide 27 Anion Gap 12 BUN 6 L Creatinine 0.4 L Est GFR ( Amer) > 60 Est GFR (Non-Af Amer) > 60 Random Glucose 86 Calcium 8.4 Total Bilirubin 2.4 H AST 130 H ALT 91 H Alkaline Phosphatase 115 Total Protein 7.5 Albumin 3.3 Globulin 4.2 Albumin/Globulin Ratio 0.8 L Assessment & Plan (1) Sickle cell pain crisis Assessment and Plan: IV fluids, folic acid, pain meds, 02 via NC Status: Acute (2) Iron overload due to repeated red blood cell transfusions Assessment and Plan: outpatient chelation Status: Chronic (3) Thrombocytopenia Assessment and Plan: secondary to hydroxyurea Status: Acute (4) Sickle cell anemia Assessment and Plan: folic acid and hydrea Thank you for this interesting consult. Status: Chronic
[2016-05-22] MEDS: HYDROmorphone 0.5 mg/0.5 ml ISec IVP PRN ×4 (01:51→15:06)
[2016-05-22 07:16] LABS: MEAN CORPUSCULAR HEMOGLOBIN 37.2 pg (25.0-35.0); MEAN CORPUSCULAR HGB CONC 36.9 g/dl (31.0-37.0); PLATELET COUNT 93 10^3/uL (120.0-450.0); WHITE BLOOD COUNT 7.2 10^3/ul (4.5-11.0)
[2016-05-22 07:20] VITALS: BP 103/65; PULSE 115; TEMP 99.1; O2SAT 98
[2016-05-22 07:26] LABS: ALB/GLOB RATIO 0.8 (1.1-1.8); ALKALINE PHOSPHATASE 126 U/L (38-133); ALT/SGPT 83 U/L (7-56); AST/SGOT 117 U/L (15-39); BILIRUBIN,TOTAL 3.1 mg/dL (0.2-1.3); BLOOD UREA NITROGEN 8 mg/dL (7-21); CALCIUM 8.5 mg/dL (8.4-10.5); CARBON DIOXIDE 29 mmol/L (21-33); CHLORIDE 100 mmol/L (95-110); GFR AFRICAN-AMERICAN > 60; GLUCOSE,RANDOM 104 mg/dL (70-110); POTASSIUM 4.4 mmol/L (3.6-5.0); SODIUM 136 mmol/L (132-148); TOTAL PROTEIN 7.6 g/dL (5.8-8.3)
[2016-05-22 07:35] LABS: HEMATOCRIT 19.8 % (36.0-48.0); RETIC% 12.18 % (0.5-1.5)
[2016-05-22] MEDS: Sodium Chloride 0.9% 1,000 ML IV SCH ×2 (08:01→13:44)
[2016-05-22] MEDS: QUEtiapine 50 mg XR Tab PO SCH (10:21)
[2016-05-22] MEDS: Divalproex 250 mg DR (BID formulation) PO SCH ×2 (10:22→17:34)
[2016-05-22] MEDS: Hydrocerin(120 gm) TOP SCH (10:22)
[2016-05-22] MEDS: Multivitamin Therapeutic Tab PO SCH (10:26)
--- NOTE | 2016-05-22 15:17 | CP.PCM.DIS ---
<Taya Ron - Last Filed: 05/23/16 22:49> Provider - Provider Date of Admission: 05/20/16 01:55 Attending physician: Marco Green MD Primary care physician: Dr. Jhaveri Consults: Heme/onco: Dr. Palacios Time Spent in preparation of Discharge (in minutes): 40 Diagnosis - Discharge Diagnosis (1) Sickle cell pain crisis Status: Chronic (2) Transaminitis Status: Chronic (3) Bipolar disorder Status: Chronic (4) Cerebral palsy Status: Chronic (5) Hypertension Status: Chronic Hospital Course - Lab Results Lab Results: Most Recent Lab Values WBC 7.2 10^3/ul (4.5-11.0) 05/22/16 06:30 RBC 1.96 10^6/uL (3.5-6.1) L 05/22/16 06:30 Hgb 7.3 gm/dL (12.0-16.0) L 05/22/16 06:30 Hct 19.8 % (36.0-48.0) L* 05/22/16 06:30 MCV 101.0 fL (80.0-105.0) 05/22/16 06:30 MCH 37.2 pg (25.0-35.0) H 05/22/16 06:30 MCHC 36.9 g/dl (31.0-37.0) 05/22/16 06:30 RDW 32.9 % (11.5-14.5) H 05/20/16 00:20 Plt Count 93 10^3/uL (120.0-450.0) L 05/22/16 06:30 MPV 10.0 fl (7.0-11.0) 05/22/16 06:30 Neutrophils % (Manual) 45 % (50.0-70.0) L 05/20/16 06:35 Lymphocytes % (Manual) 46 % (22.0-35.0) H 05/20/16 06:35 Atypical Lymphs % 3 % (0.0-0.0) H 05/20/16 06:35 Monocytes % (Manual) 6 % (1.0-6.0) 05/20/16 06:35 Nucleated RBC % 1 % 05/20/16 06:35 Platelet Evaluation Low (NORMAL) 05/20/16 06:35 Polychromasia Slight 05/20/16 06:35 Hypochromasia 2+ 05/20/16 06:35 Poikilocytosis (manual Slight 05/20/16 06:35 Basophilic Stippling Slight 05/20/16 06:35 Anisocytosis (manual) 1+ 05/20/16 06:35 Macrocytosis (manual) Slight 05/20/16 06:35 Target Cells Slight 05/20/16 06:35 Tear Drop Cells Slight 05/20/16 06:35 Ovalocytes 1+ 05/20/16 06:35 Retic Count 12.18 % (0.5-1.5) H* 05/22/16 06:30 PT 12.0 Seconds (9.9-11.8) H 05/20/16 00:20 INR 1.11 (0.93-1.08) H 05/20/16 00:20 APTT 28.8 Seconds (23.7-30.8) 05/20/16 00:20 Sodium 136 mmol/L (132-148) 05/22/16 06:30 Potassium 4.4 mmol/L (3.6-5.0) 05/22/16 06:30 Chloride 100 mmol/L (95-110) 05/22/16 06:30 Carbon Dioxide 29 mmol/L (21-33) 05/22/16 06:30 Anion Gap 11 (10-20) 05/22/16 06:30 BUN 8 mg/dL (7-21) 05/22/16 06:30 Creatinine 0.4 mg/dL (0.5-1.4) L 05/22/16 06:30 Est GFR ( Amer) > 60 05/22/16 06:30 Est GFR (Non-Af Amer) > 60 05/22/16 06:30 Random Glucose 104 mg/dL (70-110) 05/22/16 06:30 Calcium 8.5 mg/dL (8.4-10.5) 05/22/16 06:30 Iron 175 ug/dL (45-180) 05/20/16 06:35 TIBC 240 ug/dL (265-497) L 05/20/16 06:35 % Saturation 73 % (20-55) H 05/20/16 06:35 Ferritin > 67855.0 ng/mL 05/20/16 06:35 Total Bilirubin 3.1 mg/dL (0.2-1.3) H 05/22/16 06:30 AST 117 U/L (15-39) H 05/22/16 06:30 ALT 83 U/L (7-56) H 05/22/16 06:30 Alkaline Phosphatase 126 U/L (38-133) 05/22/16 06:30 Lactate Dehydrogenase 745 U/L (333-699) H 05/20/16 00:20 Total Creatine Kinase < 20 U/L (35-230) L 05/20/16 00:20 Troponin I 0.02 ng/mL 05/20/16 00:20 Total Protein 7.6 g/dL (5.8-8.3) 05/22/16 06:30 Albumin 3.4 g/dL (3.0-4.8) 05/22/16 06:30 Globulin 4.2 gm/dL 05/22/16 06:30 Albumin/Globulin Ratio 0.8 (1.1-1.8) L 05/22/16 06:30 - Hospital Course Hospital Course: 35 year old female with past medical history of cerebral palsy, sickle cell anemia, HTN, bipolar disorder, and asthma, who [place] [facility] with 10/10 body aches for 2 days. Patient was recently admitted 04/30/16 and then again on 05/10/16. Patient states that she did well for some time after discharge but then began to have a return of her pain. Patient describes pain as generalized, originally starting in the legs, 10/10 at its worst, constant with ups and downs, non-radiating, dull-ache in nature, not associated with other symptoms, worsened by movement, not improved by anything, and just like her previous sickle cell crises. Patient denies any changes that may have lead to this particular pain and denied any trauma. Patient states that the pain has gotten so bad that she has been unable to walk around which she can normally do and has decreased her appetite as well. In the ED, CXR showed no active disease. Her reticulocyte count was 15.32. Patient was given IVF, Benadryl, dilaudid. Upon admission, patient was placed on NS@ 100ml/hr, hydroxyurea, multivitamin and folate. Iron was normal, TIBC was slightly on the lower range of 240. patient's heme/onc Dr. Palacios was consulted. Patient's reticulocyte count and LFT improve steadily during her hospital course. Patient was advanced to regular diet, tolerated well. Patient refused to participate in physical therapy but stated she was able to go use the restroom by herself. The discharge plan and follow ups were extensively discussed with the patient. At this time, after discussion of all issues, the patient was deemed medically fit for discharge. - Date & Time of H&P Date of H&P: 05/20/16 Time of H&P: 02:37 Discharge Exam - Head Exam Head Exam: ATRAUMATIC - Eye Exam Eye Exam: EOMI, PERRL - ENT Exam ENT Exam: Mucous Membranes Moist - Neck Exam Neck exam: Normal Inspection - Respiratory Exam Respiratory Exam: Clear to PA & Lateral. absent: Rhonchi, Wheezes, Respiratory Distress - Cardiovascular Exam Cardiovascular Exam: REGULAR RHYTHM, RRR, +S1, +S2 - GI/Abdominal Exam GI & Abdominal Exam: Normal Bowel Sounds, Soft. absent: Tenderness - Extremities Exam Additional comments: tenderness to palpation of extremities - Neurological Exam Neurological exam: Alert, Oriented x3 - Psychiatric Exam Psychiatric exam: Flat Affect - Skin Skin Exam: Dry, Intact, Warm Discharge Plan - Follow Up Plan Condition: STABLE Disposition: OTHER INSTITUTION Instructions: Asthma (DC), Bipolar Disorder (DC), Sickle Cell Crisis (DC), Cerebral Palsy (DC), Chronic Hypertension (DC) Additional Instructions: -Patient was instructed to follow up with PMD and heme/onc Dr. Palacios -Patient will continue to take medications as prescribed -Go to the nearest ED if symptoms return or worsen Referrals: Tristian Palacios MD [Staff Provider] - <Marco Green - Last Filed: 05/24/16 06:39> Provider - Provider Date of Admission: 05/20/16 01:55 Attending physician: Marco Green MD Hospital Course - Lab Results Lab Results: Most Recent Lab Values WBC 7.2 10^3/ul (4.5-11.0) 05/22/16 06:30 RBC 1.96 10^6/uL (3.5-6.1) L 05/22/16 06:30 Hgb 7.3 gm/dL (12.0-16.0) L 05/22/16 06:30 Hct 19.8 % (36.0-48.0) L* 05/22/16 06:30 MCV 101.0 fL (80.0-105.0) 05/22/16 06:30 MCH 37.2 pg (25.0-35.0) H 05/22/16 06:30 MCHC 36.9 g/dl (31.0-37.0) 05/22/16 06:30 RDW 32.9 % (11.5-14.5) H 05/20/16 00:20 Plt Count 93 10^3/uL (120.0-450.0) L 05/22/16 06:30 MPV 10.0 fl (7.0-11.0) 05/22/16 06:30 Neutrophils % (Manual) 45 % (50.0-70.0) L 05/20/16 06:35 Lymphocytes % (Manual) 46 % (22.0-35.0) H 05/20/16 06:35 Atypical Lymphs % 3 % (0.0-0.0) H 05/20/16 06:35 Monocytes % (Manual) 6 % (1.0-6.0) 05/20/16 06:35 Nucleated RBC % 1 % 05/20/16 06:35 Platelet Evaluation Low (NORMAL) 05/20/16 06:35 Polychromasia Slight 05/20/16 06:35 Hypochromasia 2+ 05/20/16 06:35 Poikilocytosis (manual Slight 05/20/16 06:35 Basophilic Stippling Slight 05/20/16 06:35 Anisocytosis (manual) 1+ 05/20/16 06:35 Macrocytosis (manual) Slight 05/20/16 06:35 Target Cells Slight 05/20/16 06:35 Tear Drop Cells Slight 05/20/16 06:35 Ovalocytes 1+ 05/20/16 06:35 Retic Count 12.18 % (0.5-1.5) H* 05/22/16 06:30 PT 12.0 Seconds (9.9-11.8) H 05/20/16 00:20 INR 1.11 (0.93-1.08) H 05/20/16 00:20 APTT 28.8 Seconds (23.7-30.8) 05/20/16 00:20 Sodium 136 mmol/L (132-148) 05/22/16 06:30 Potassium 4.4 mmol/L (3.6-5.0) 05/22/16 06:30 Chloride 100 mmol/L (95-110) 05/22/16 06:30 Carbon Dioxide 29 mmol/L (21-33) 05/22/16 06:30 Anion Gap 11 (10-20) 05/22/16 06:30 BUN 8 mg/dL (7-21) 05/22/16 06:30 Creatinine 0.4 mg/dL (0.5-1.4) L 05/22/16 06:30 Est GFR ( Amer) > 60 05/22/16 06:30 Est GFR (Non-Af Amer) > 60 05/22/16 06:30 Random Glucose 104 mg/dL (70-110) 05/22/16 06:30 Calcium 8.5 mg/dL (8.4-10.5) 05/22/16 06:30 Iron 175 ug/dL (45-180) 05/20/16 06:35 TIBC 240 ug/dL (265-497) L 05/20/16 06:35 % Saturation 73 % (20-55) H 05/20/16 06:35 Ferritin > 12282.0 ng/mL 05/20/16 06:35 Total Bilirubin 3.1 mg/dL (0.2-1.3) H 05/22/16 06:30 AST 117 U/L (15-39) H 05/22/16 06:30 ALT 83 U/L (7-56) H 05/22/16 06:30 Alkaline Phosphatase 126 U/L (38-133) 05/22/16 06:30 Lactate Dehydrogenase 745 U/L (333-699) H 05/20/16 00:20 Total Creatine Kinase < 20 U/L (35-230) L 05/20/16 00:20 Troponin I 0.02 ng/mL 05/20/16 00:20 Total Protein 7.6 g/dL (5.8-8.3) 05/22/16 06:30 Albumin 3.4 g/dL (3.0-4.8) 05/22/16 06:30 Globulin 4.2 gm/dL 05/22/16 06:30 Albumin/Globulin Ratio 0.8 (1.1-1.8) L 05/22/16 06:30 Attending/Attestation - Attestation I have personally seen and examined this patient.: Yes I have fully participated in the care of the patient.: Yes I have reviewed all pertinent clinical information, including history, physical exam and plan: Yes Notes (Text): 05/22/16 35 year old female with past medical history of sickle cell anemia, history of iron overload and bipolar disorder presented with generalized pain secondary to sickle cell crisis. She was started on iv fluids and analgesics with improvement of symptoms. She looks fairly comfortable today. She was out of bed to chair yesterday. She was seen by her slat twister. Her LFTs are stable. Her anemia is baseline. She does have history of iron overload after multiple transfusions. She is discharged home to follow up with her pmd. Follow up with slat twister. Monitor labs (hemoglobin/LFTs) closely as outpatient. Marco Green MD Hospitalist.
[2016-05-22] MEDS: Mometasone 220 mcg/puff-14 puff Inh IH SCH (17:35)
== END 2016-05-22 18:50 | disposition home or self-care (01) ==
LOC: ED 23:36 → ERH 05-20 01:55 → 5RNO 05-20 03:17
PROVIDERS: ADMIT Hospitalist; ATTEND Internal Medicine
DX: D57.00 Hb-SS disease with crisis, unspecified (principal); G80.9 Cerebral palsy, unspecified; F31.9 Bipolar disorder, unspecified; I10 Essential (primary) hypertension; D69.6 Thrombocytopenia, unspecified; J45.909 Unspecified asthma, uncomplicated; E83.111 Hemochromatosis due to repeated red blood cell transfusions; R74.0 Nonspecific elevation of levels of transaminase and lactic acid dehydrogenase [LDH]; Z88.6 Allergy status to analgesic agent; Z83.2 Family history of diseases of the blood and blood-forming organs and certain disorders involving the immune mechanism
CPT/HCPCS: 36415; 71010; 80053; 82550; 82728; 83540; 83550; 83615; 84484; 85025; 85027; 85044; 85610; 85730; 93005; 96361; 96374; 96375; 96376; 99283; G0378; J1170; J1200; J7040

== ENCOUNTER 2016-05-27 14:36 | Inpatient (IN) | payer OTHER ==
[2016-05-27] MEDS ORDERED: Sodium Chloride 0.9% 1,000 ML IV STA (15:06)
[2016-05-27] MEDS ORDERED: HYDROmorphone 1 mg/ml ISec IVP STA ×3 (15:07→16:53)
[2016-05-27] MEDS ORDERED: DiphenhydrAMINE 50 mg/ml Inj IVP STA (15:07)
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
[2016-05-27 16:25] LABS: PH,URINE 7.5 (4.7-8.0); URINE BILIRUBIN NEGATIVE (NEGATIVE); URINE BLOOD NEGATIVE (NEGATIVE); URINE GLUCOSE (UA) NEGATIVE (NEGATIVE); URINE KETONE NEGATIVE (NEGATIVE); URINE LEUKOCYTE ESTERASE NEGATIVE Leu/uL (NEGATIVE); URINE PROTEIN NEGATIVE mg/dL (<30 mg/dL)
[2016-05-27 16:30] LABS: MEAN CELL VOLUME 107.9 fL (80.0-105.0); MEAN CORPUSCULAR HEMOGLOBIN 38.1 pg (25.0-35.0); MEAN CORPUSCULAR HGB CONC 35.3 g/dl (31.0-37.0); MEAN PLATELET VOLUME 10.7 fl (7.0-11.0); PLATELET COUNT 165 10^3/uL (120.0-450.0); RED CELL DISTRIBUTION WIDTH 37.8 % (11.5-14.5); WHITE BLOOD COUNT 16.3 10^3/ul (4.5-11.0)
[2016-05-27 16:37] LABS: ALB/GLOB RATIO 0.8 (1.1-1.8); ALKALINE PHOSPHATASE 136 U/L (38-133); ALT/SGPT 70 U/L (7-56); AST/SGOT 110 U/L (15-39); BILIRUBIN,TOTAL 2.7 mg/dL (0.2-1.3); BLOOD UREA NITROGEN 14 mg/dL (7-21); CALCIUM 8.8 mg/dL (8.4-10.5); CARBON DIOXIDE 30 mmol/L (21-33); CHLORIDE 101 mmol/L (98-107); GFR AFRICAN-AMERICAN > 60; GLUCOSE,RANDOM 100 mg/dL (70-110); SODIUM 139 mmol/L (132-148); URINE APPEARANCE CLEAR (CLEAR); URINE COLOR YELLOW (YELLOW)
[2016-05-27 16:42] LABS: HEMATOCRIT 21.8 % (36.0-48.0); RETIC% 22.67 % (0.5-1.5)
[2016-05-27 16:43] LABS: ADD MANUAL DIFF? YES
[2016-05-27] MEDS: Sodium Chloride 0.9% 1,000 ML IV SCH ×2 (17:42→22:48)
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
--- NOTE | 2016-05-27 18:51 | CARD ---
APPROVED REPORT EKG Measurement Heart [id number] <Conclusion> Normal sinus rhythm Minimal voltage criteria for LVH, may be normal variant Nonspecific T wave abnormality Abnormal ECG
[2016-05-27 19:28] LABS: CORRECTED WBC 9.1 K/mm3 (4.5-11.0); EOSINOPHIL 2 % (0.0-3.0); HYPOCHROMIA 2+; NEUTROPHIL 61 % (50.0-70.0); NUCLEATED RED BLOOD CELL 79 %; PLATELET ESTIMATE NORMAL (NORMAL)
[2016-05-27 19:29] LABS: ANISOCYTOSIS 2+; MICROCYTOSIS 2+; SPHEROCYTE SLIGHT; STOMATOCYTE 1+; TARGET CELLS SLIGHT
[2016-05-27] MEDS: QUEtiapine 50 mg XR Tab PO SCH (20:52)
[2016-05-27] MEDS: Multivitamin Therapeutic Tab PO SCH (20:52)
[2016-05-27] MEDS: DiphenhydrAMINE 50 mg/ml Inj IVP PRN (22:16)
[2016-05-27] MEDS: HYDROmorphone 0.5 mg/0.5 ml ISec IVP PRN (22:16)
[2016-05-27 22:35] VITALS: BMI 22.6
[2016-05-28] MEDS: HYDROmorphone 0.5 mg/0.5 ml ISec IVP PRN ×5 (02:57→21:44)
[2016-05-28] MEDS: Sodium Chloride 0.9% 1,000 ML IV SCH ×5 (02:58→23:39)
[2016-05-28 06:35] LABS: MEAN CELL VOLUME 108.4 fL (80.0-105.0); MEAN CORPUSCULAR HEMOGLOBIN 37.7 pg (25.0-35.0); MEAN CORPUSCULAR HGB CONC 34.8 g/dl (31.0-37.0); MEAN PLATELET VOLUME 10.3 fl (7.0-11.0); PLATELET COUNT 125 10^3/uL (120.0-450.0)
[2016-05-28 06:42] LABS: HEMATOCRIT 18.1 % (36.0-48.0); RETIC% 24.88 % (0.5-1.5)
[2016-05-28 06:43] LABS: ADD MANUAL DIFF? YES
[2016-05-28 06:59] LABS: BLOOD UREA NITROGEN 9 mg/dL (7-21); CALCIUM 7.9 mg/dL (8.4-10.5); CARBON DIOXIDE 26 mmol/L (21-33); CHLORIDE 108 mmol/L (98-107); GFR AFRICAN-AMERICAN > 60; GLUCOSE,RANDOM 80 mg/dL (70-110); POTASSIUM 4.1 mmol/L (3.6-5.0); SODIUM 139 mmol/L (132-148)
--- NOTE | 2016-05-28 08:13 | RAD ---
HISTORY: medical clearance COMPARISON: 05/19/2016 FINDINGS: LUNGS: Patchy opacity right base and at left base. Infiltrate versus atelectasis. Followup advised. PLEURA: No significant pleural effusion identified, no pneumothorax apparent. CARDIOVASCULAR: Normal heart size. Right central venous infusion port. OSSEOUS STRUCTURES: No significant abnormalities. VISUALIZED UPPER ABDOMEN: Normal. OTHER FINDINGS: None. IMPRESSION: Bibasilar patchy opacities. Rule out developing pneumonia.
[2016-05-28 08:21] LABS: EOSINOPHIL 1 % (0.0-3.0)
[2016-05-28 08:22] LABS: ANISOCYTOSIS 1+; CORRECTED WBC 11.1 K/mm3 (4.5-11.0); HYPOCHROMIA 2+; MYELOCYTE 1 %; NEUTROPHIL 59 % (50.0-70.0); NUCLEATED RED BLOOD CELL 35 %; PLATELET ESTIMATE LOW (NORMAL); POIKILOCYTOSIS SLIGHT; POLYCHROMASIA 1+
[2016-05-28] MEDS: DiphenhydrAMINE 50 mg/ml Inj IVP PRN ×3 (08:22→21:44)
[2016-05-28 08:23] LABS: OVALOCYTES SLIGHT; STOMATOCYTE SLIGHT; TEAR DROP CELLS SLIGHT
--- NOTE | 2016-05-28 09:28 | CP.PCM.PN ---
<Harman Benoit - Last Filed: 05/28/16 14:16> Subjective - Date & Time of Evaluation Date of Evaluation: 05/28/16 Time of Evaluation: 07:35 - Subjective Subjective: PGY-1 Medicine Progress Note for Dr. Pritchett Patient seen and examined at bedside. No acute event overnight. Patient lying in bed in acute distress. Patient is complaining of pain in chest, hips, and legs. Patient stated that it is 10/10, excruciating pain. She is asking for pain medication since pain is unbearable. Her hemoglobin today was low, so 1 unit of PRBC will be transfused today. Denied fever/chills, SOB, palpitations, n /v/d, numbness/tingling, urinary symptoms, incontinence. Objective - Vital Signs/Intake and Output Vital Signs (last 24 hours): Temp Pulse Resp BP Pulse Ox 98.3 F 85 18 102/65 94 L 05/28/16 06:00 05/28/16 08:21 05/28/16 06:00 05/28/16 08:21 05/28/16 06:00 Intake and Output: 05/28/16 05/28/16 06:59 18:59 Intake Total 3000 Balance 3000 - Medications Medications: Current Medications Diphenhydramine HCl (Benadryl) 25 mg IVP Q6 PRN PRN Reason: Itching / Pruritus Last Admin: 05/28/16 08:22 Dose: 25 mg Divalproex Sodium (Depakote Dr (*Bid*)) 250 mg PO BID [facility] PRN Reason: Protocol Docusate Sodium (Colace) 100 mg PO TID [facility] Last Admin: 05/27/16 20:01 Dose: 100 mg Enoxaparin Sodium (Lovenox) 40 mg SC DAILY [facility] PRN Reason: Protocol Famotidine (Pepcid) 20 mg PO DAILY [facility] Last Admin: 05/27/16 20:01 Dose: 20 mg Folic Acid (Folic Acid) 1 mg PO DAILY [facility] Last Admin: 05/27/16 20:02 Dose: 1 mg Hydromorphone HCl (Dilaudid) 0.5 mg IVP Q4H PRN PRN Reason: Pain, moderate (4-7) Last Admin: 05/28/16 08:23 Dose: 0.5 mg Hydroxyurea (Hydrea) 500 mg PO BID [facility] Last Admin: 05/27/16 20:52 Dose: 500 mg Sodium Chloride (Sodium Chloride 0.9%) 1,000 mls @ 200 mls/hr IV .Q5H [facility] Last Admin: 05/28/16 08:24 Dose: 200 mls/hr Multi-Ingredient Cream (Hydrocerin Cream) 0 ea TOP DAILY [facility] Multivitamins (Thera Tab) 1 tab PO DAILY [facility] Last Admin: 05/27/16 20:52 Dose: 1 tab Quetiapine Fumarate (Seroquel Xr) 100 mg PO DAILY [facility] PRN Reason: Protocol Last Admin: 05/27/16 20:52 Dose: 100 mg Trazodone HCl (Desyrel) 50 mg PO HS PRN PRN Reason: Pain, moderate (4-7) - Labs Labs: 05/28/16 06:00 05/28/16 06:00 - Constitutional Appears: In Acute Distress - Head Exam Head Exam: ATRAUMATIC, NORMOCEPHALIC - Eye Exam Eye Exam: EOMI, Normal appearance Pupil Exam: PERRL - ENT Exam ENT Exam: Mucous Membranes Moist - Neck Exam Neck Exam: Normal Inspection - Respiratory Exam Respiratory Exam: Chest Wall Tenderness, Clear to Ausculation Bilateral, NORMAL BREATHING PATTERN - Cardiovascular Exam Cardiovascular Exam: RRR, +S1 - GI/Abdominal Exam GI & Abdominal Exam: Soft, Tenderness, Normal Bowel Sounds. absent: Distended, Firm, Guarding, Rigid, Rebound - Extremities Exam Extremities Exam: Normal Capillary Refill, Tenderness. absent: Calf Tenderness , Pedal Edema - Back Exam Back Exam: absent: CVA tenderness (L), CVA tenderness (R) - Neurological Exam Neurological Exam: Alert, Awake, CN II-XII Intact, Oriented x3 - Psychiatric Exam Psychiatric exam: Agitated - Skin Skin Exam: Dry, Intact, Normal Color, Warm Assessment and Plan - Assessment and Plan (Free Text) Plan: 35 year old female with PMH for cerebral palsy, sickle cell anemia, HTN, bipolar disorder, and asthma, who presented to [facility] with generalized pain 1. Sickle Cell Crisis Hgb 6.3 transfuse 1 unit PRBC, consent obtained Retic count increasing to 24.88 NS @ 200 ml/hr dilaudid 0.5 mg q4 PRN for pain Multivitamin 1 tab PO daily Folic Acid 1 mg PO daily Hydroxyurea 500 PO BID Heme/Onc consult, Dr. Palacios, help appreciated Aspiration and fall precautions Regular diet 2. Bipolar Disorder Depakote 250 mg PO BID Trazodone 50 mg PO HS PRN Seroquel 100 mg PO daily 3. Prophyactic measures Colace 100 PO TID Pepcid 20 mg PO daily Lovenox 40 mg SC daily Hydrocerin cream PRN <ShreyasNetojayjeff - Last Filed: 05/28/16 15:20> Objective - Vital Signs/Intake and Output Vital Signs (last 24 hours): Temp Pulse Resp BP Pulse Ox 98.1 F 83 17 104/66 94 L 05/28/16 13:08 05/28/16 13:08 05/28/16 13:08 05/28/16 13:08 05/28/16 06:00 Intake and Output: 05/28/16 05/28/16 06:59 18:59 Intake Total 3000 757 Output Total 700 Balance 3000 57 - Medications Medications: Current Medications Diphenhydramine HCl (Benadryl) 25 mg IVP Q6 PRN PRN Reason: Itching / Pruritus Last Admin: 05/28/16 08:22 Dose: 25 mg Divalproex Sodium (Depakote Dr (*Bid*)) 250 mg PO BID [facility] PRN Reason: Protocol Last Admin: 05/28/16 10:26 Dose: 250 mg Docusate Sodium (Colace) 100 mg PO TID [facility] Last Admin: 05/28/16 13:50 Dose: Not Given Enoxaparin Sodium (Lovenox) 40 mg SC DAILY [facility] PRN Reason: Protocol Last Admin: 05/28/16 09:48 Dose: 40 mg Famotidine (Pepcid) 20 mg PO DAILY [facility] Last Admin: 05/28/16 09:48 Dose: 20 mg Folic Acid (Folic Acid) 1 mg PO DAILY [facility] Last Admin: 05/28/16 09:48 Dose: 1 mg Hydromorphone HCl (Dilaudid) 0.5 mg IVP Q4H PRN PRN Reason: Pain, moderate (4-7) Last Admin: 05/28/16 12:29 Dose: 0.5 mg Hydroxyurea (Hydrea) 500 mg PO BID [facility] Last Admin: 05/28/16 10:26 Dose: 500 mg Sodium Chloride (Sodium Chloride 0.9%) 1,000 mls @ 200 mls/hr IV .Q5H [facility] Last Admin: 05/28/16 12:26 Dose: Not Given Multi-Ingredient Cream (Hydrocerin Cream) 0 ea TOP DAILY [facility] Last Admin: 05/28/16 10:26 Dose: 1 applic Multivitamins (Thera Tab) 1 tab PO DAILY [facility] Last Admin: 05/28/16 09:48 Dose: 1 tab Quetiapine Fumarate (Seroquel Xr) 100 mg PO DAILY [facility] PRN Reason: Protocol Last Admin: 05/28/16 09:48 Dose: 100 mg Trazodone HCl (Desyrel) 50 mg PO HS PRN PRN Reason: Pain, moderate (4-7) - Labs Labs: 05/28/16 06:00 05/28/16 06:00 Assessment and Plan - Assessment and Plan (Free Text) Assessment: Attending note: patient seen and examined with resident. This is a 35 year old female with history of sickle cell anemia, cerebral palsy , bipolar disorder who got admitted for evaluation of vaso-occlusive crises. continue oxygen, IV fluids, IV Dilaudid. still with generalized bodyache. retic count is 24. 1 unit of PRBC transfusion ordered. Continue hydrea and folic acid. Hematology evaluation requested. Chelation as an outpatient for iron overload is recommended. Upon discharge patient will follow up with hematology and was PMD . Attending/Attestation - Attestation I have personally seen and examined this patient.: Yes I have fully participated in the care of the patient.: Yes I have reviewed all pertinent clinical information, including history, physical exam and plan: Yes
[2016-05-28] MEDS: Enoxaparin 40 mg Syringe SC SCH (09:48)
[2016-05-28] MEDS: QUEtiapine 50 mg XR Tab PO SCH (09:48)
[2016-05-28] MEDS: Multivitamin Therapeutic Tab PO SCH (09:48)
[2016-05-28] MEDS: Divalproex 250 mg DR (BID formulation) PO SCH ×2 (10:26→17:52)
[2016-05-28] MEDS: Hydrocerin(120 gm) TOP SCH (10:26)
[2016-05-28] MEDS ORDERED: HYDROmorphone 0.5 mg/0.5 ml ISec IVP ONE (10:59)
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
[2016-05-29] MEDS: HYDROmorphone 0.5 mg/0.5 ml ISec IVP PRN ×5 (03:09→23:45)
[2016-05-29] MEDS: DiphenhydrAMINE 50 mg/ml Inj IVP PRN ×3 (03:09→23:48)
[2016-05-29] MEDS: Sodium Chloride 0.9% 1,000 ML IV SCH ×4 (04:15→19:25)
[2016-05-29] MEDS: Divalproex 250 mg DR (BID formulation) PO SCH ×2 (09:52→18:22)
[2016-05-29] MEDS: QUEtiapine 50 mg XR Tab PO SCH (09:52)
[2016-05-29] MEDS: Multivitamin Therapeutic Tab PO SCH (09:52)
[2016-05-29] MEDS: Enoxaparin 40 mg Syringe SC SCH (09:53)
--- NOTE | 2016-05-29 10:10 | CP.PCM.PN ---
<Brandy Galarza - Last Filed: 05/29/16 13:43> Subjective - Date & Time of Evaluation Date of Evaluation: 05/29/16 Time of Evaluation: 09:30 - Subjective Subjective: Hospitalists Progress note for Dr. Pritchett Pt s/e at bedside this AM. NAEO. Patient is able to be roused but lethargic because she just received her pain medication injection. Reports she is in pain but does not answer any other questions. Objective - Vital Signs/Intake and Output Vital Signs (last 24 hours): Temp Pulse Resp BP Pulse Ox 98.5 F 87 19 120/77 96 05/28/16 16:00 05/28/16 16:00 05/28/16 16:00 05/28/16 16:00 05/28/16 16:00 Intake and Output: 05/29/16 05/29/16 06:59 18:59 Intake Total 3320 Output Total 800 Balance 2520 - Medications Medications: Current Medications Diphenhydramine HCl (Benadryl) 25 mg IVP Q6 PRN PRN Reason: Itching / Pruritus Last Admin: 05/29/16 03:09 Dose: 25 mg Divalproex Sodium (Depakote Dr (*Bid*)) 250 mg PO BID [facility] PRN Reason: Protocol Last Admin: 05/29/16 09:52 Dose: 250 mg Docusate Sodium (Colace) 100 mg PO TID [facility] Last Admin: 05/29/16 09:53 Dose: 100 mg Enoxaparin Sodium (Lovenox) 40 mg SC DAILY [facility] PRN Reason: Protocol Last Admin: 05/29/16 09:53 Dose: 40 mg Famotidine (Pepcid) 20 mg PO DAILY [facility] Last Admin: 05/29/16 09:53 Dose: 20 mg Folic Acid (Folic Acid) 1 mg PO DAILY [facility] Last Admin: 05/29/16 09:53 Dose: 1 mg Hydromorphone HCl (Dilaudid) 0.5 mg IVP Q4H PRN PRN Reason: Pain, moderate (4-7) Last Admin: 05/29/16 08:03 Dose: 0.5 mg Hydroxyurea (Hydrea) 500 mg PO BID [facility] Last Admin: 05/28/16 17:57 Dose: 500 mg Sodium Chloride (Sodium Chloride 0.9%) 1,000 mls @ 200 mls/hr IV .Q5H [facility] Last Admin: 05/29/16 09:54 Dose: 200 mls/hr Multi-Ingredient Cream (Hydrocerin Cream) 0 ea TOP DAILY [facility] Last Admin: 05/28/16 10:26 Dose: 1 applic Multivitamins (Thera Tab) 1 tab PO DAILY [facility] Last Admin: 05/29/16 09:52 Dose: 1 tab Quetiapine Fumarate (Seroquel Xr) 100 mg PO DAILY [facility] PRN Reason: Protocol Last Admin: 05/29/16 09:52 Dose: 100 mg Trazodone HCl (Desyrel) 50 mg PO HS PRN PRN Reason: Pain, moderate (4-7) - Labs Labs: 05/28/16 06:00 05/28/16 06:00 - Constitutional Appears: Non-toxic, No Acute Distress - Head Exam Head Exam: ATRAUMATIC, NORMOCEPHALIC - Eye Exam Eye Exam: Normal appearance. absent: Conjunctival injection, Scleral icterus - ENT Exam ENT Exam: Mucous Membranes Moist, Normal Oropharynx - Respiratory Exam Respiratory Exam: Clear to Ausculation Bilateral, NORMAL BREATHING PATTERN. absent: Accessory Muscle Use, Respiratory Distress - Cardiovascular Exam Cardiovascular Exam: RRR, +S1, +S2 - GI/Abdominal Exam GI & Abdominal Exam: Soft, Tenderness (diffusely tender to palpation worst in the RLQ). absent: Distended - Extremities Exam Extremities Exam: absent: Calf Tenderness, Pedal Edema - Neurological Exam Neurological Exam: Altered - Psychiatric Exam Psychiatric exam: Flat Affect - Skin Skin Exam: Dry, Normal Color, Warm Assessment and Plan - Assessment and Plan (Free Text) Assessment: 35 year old female with PMH including cerebral palsy, sickle cell anemia, HTN, bipolar disorder, and asthma, who presented to [facility] with generalized pain in sickle cell crisis 1. Sickle Cell Crisis Hgb 8.5 up from 6.3 yesterday after 1PRBC unit transfused Retic count decreasing to 19.8 from 24.88 yesterday NS @ 200 ml/hr dilaudid 0.5 mg q4 PRN for pain Multivitamin 1 tab PO daily Folic Acid 1 mg PO daily Hydroxyurea 500 PO BID Heme/Onc consult, Dr. Palacios, recs: hydration, folate, avoid transfusion therapy as much as possible d/t liver transaminitis, outpatient chelation therapy Aspiration and fall precautions Regular diet--encourage fluid intake 2. Bipolar Disorder Depakote 250 mg PO BID Trazodone 50 mg PO HS PRN Seroquel 100 mg PO daily 3. Prophyactic measures Colace 100 PO TID Pepcid 20 mg PO daily Lovenox 40 mg SC daily Hydrocerin cream PRN Dispo: anticipate continued inpatient admission to for at least the next 24 hours <Jemma Pritchett - Last Filed: 05/29/16 17:44> Objective - Vital Signs/Intake and Output Vital Signs (last 24 hours): Temp Pulse Resp BP Pulse Ox 99 F 83 20 116/76 96 05/29/16 16:00 05/29/16 16:00 05/29/16 16:00 05/29/16 16:00 05/29/16 16:00 Intake and Output: 05/29/16 05/29/16 06:59 18:59 Intake Total 3320 420 Output Total 800 1400 Balance 2520 -980 - Medications Medications: Current Medications Diphenhydramine HCl (Benadryl) 25 mg IVP Q6 PRN PRN Reason: Itching / Pruritus Last Admin: 05/29/16 03:09 Dose: 25 mg Divalproex Sodium (Depakote Dr (*Bid*)) 250 mg PO BID [facility] PRN Reason: Protocol Last Admin: 05/29/16 09:52 Dose: 250 mg Docusate Sodium (Colace) 100 mg PO TID [facility] Last Admin: 05/29/16 14:05 Dose: 100 mg Enoxaparin Sodium (Lovenox) 40 mg SC DAILY [facility] PRN Reason: Protocol Last Admin: 05/29/16 09:53 Dose: 40 mg Famotidine (Pepcid) 20 mg PO DAILY [facility] Last Admin: 05/29/16 09:53 Dose: 20 mg Folic Acid (Folic Acid) 1 mg PO DAILY [facility] Last Admin: 05/29/16 09:53 Dose: 1 mg Hydromorphone HCl (Dilaudid) 0.5 mg IVP Q4H PRN PRN Reason: Pain, moderate (4-7) Last Admin: 05/29/16 14:05 Dose: 0.5 mg Hydroxyurea (Hydrea) 500 mg PO BID [facility] Last Admin: 05/29/16 10:24 Dose: 500 mg Sodium Chloride (Sodium Chloride 0.9%) 1,000 mls @ 200 mls/hr IV .Q5H [facility] Last Admin: 05/29/16 15:10 Dose: 200 mls/hr Levofloxacin/Dextrose (Levaquin 500mg) 100 mls @ 100 mls/hr IVPB DAILY [facility] Last Admin: 05/29/16 15:08 Dose: 100 mls/hr Multi-Ingredient Cream (Hydrocerin Cream) 0 ea TOP DAILY [facility] Last Admin: 05/29/16 11:00 Dose: 1 applic Multivitamins (Thera Tab) 1 tab PO DAILY [facility] Last Admin: 05/29/16 09:52 Dose: 1 tab Quetiapine Fumarate (Seroquel Xr) 100 mg PO DAILY [facility] PRN Reason: Protocol Last Admin: 05/29/16 09:52 Dose: 100 mg Trazodone HCl (Desyrel) 50 mg PO HS PRN PRN Reason: Pain, moderate (4-7) - Labs Labs: 05/29/16 10:20 05/29/16 10:20 Assessment and Plan - Assessment and Plan (Free Text) Assessment: Attending note: patient seen and examined with resident. This is a 35 year old female with history of sickle cell anemia, cerebral palsy , bipolar disorder who got admitted for evaluation of vaso-occlusive crises. continue oxygen, IV fluids, IV Dilaudid. improving slowly. patient got 1 unit of PRBC transfusion yesterday. Hb is 8.5. retic count is 19. Continue hydrea and folic acid. Hematology evaluation appreciated. leukocytosis is improving; chest x-ray showed possible infiltrate vs atelectasis. repeat cxr ordered. Patient is afebrile and nontoxic. procalcitonin level ordered. started on levofloxacin. Chelation as an outpatient for iron overload is recommended. Upon discharge patient will follow up with hematology and was PMD . Attending/Attestation - Attestation I have personally seen and examined this patient.: Yes I have fully participated in the care of the patient.: Yes I have reviewed all pertinent clinical information, including history, physical exam and plan: Yes
[2016-05-29 10:53] LABS: HEMATOCRIT 23.8 % (36.0-48.0); MEAN CELL VOLUME 104.4 fL (80.0-105.0); MEAN CORPUSCULAR HEMOGLOBIN 37.3 pg (25.0-35.0); MEAN CORPUSCULAR HGB CONC 35.7 g/dl (31.0-37.0); MEAN PLATELET VOLUME 10.5 fl (7.0-11.0); PLATELET COUNT 151 10^3/uL (120.0-450.0); RED CELL DISTRIBUTION WIDTH 33.2 % (11.5-14.5); WHITE BLOOD COUNT 10.2 10^3/ul (4.5-11.0)
[2016-05-29 10:58] LABS: ALB/GLOB RATIO 0.7 (1.1-1.8); ALKALINE PHOSPHATASE 128 U/L (38-133); ALT/SGPT 89 U/L (7-56); AST/SGOT 110 U/L (15-39); BILIRUBIN,TOTAL 3.1 mg/dL (0.2-1.3); BLOOD UREA NITROGEN 4 mg/dL (7-21); CALCIUM 7.9 mg/dL (8.4-10.5); CARBON DIOXIDE 25 mmol/L (21-33); CHLORIDE 109 mmol/L (98-107); GFR AFRICAN-AMERICAN > 60; GLUCOSE,RANDOM 80 mg/dL (70-110); POTASSIUM 3.6 mmol/L (3.6-5.0); SODIUM 140 mmol/L (132-148)
[2016-05-29] MEDS: Hydrocerin(120 gm) TOP SCH (11:00)
[2016-05-29 11:02] LABS: RETIC% 19.81 % (0.5-1.5)
[2016-05-29 11:51] LABS: ADD MANUAL DIFF? YES
[2016-05-29 11:52] LABS: ANISOCYTOSIS 2+; EOSINOPHIL 2 % (0.0-3.0); HYPOCHROMIA 2+; MYELOCYTE 3 %; NEUTROPHIL 56 % (50.0-70.0); NUCLEATED RED BLOOD CELL 27 %; PLATELET ESTIMATE NORMAL (NORMAL); POIKILOCYTOSIS 1+; POLYCHROMASIA 1+
[2016-05-29 11:53] LABS: OVALOCYTES 1+; TEAR DROP CELLS SLIGHT
--- NOTE | 2016-05-29 16:51 | RAD ---
HISTORY: r/o pneumonia follow up COMPARISON: No prior. TECHNIQUE: Chest PA and lateral FINDINGS: LUNGS: Poor inspiration with low lung volumes, crowded bronchovascular markings and mild bibasilar atelectasis and or residual infiltrates slightly improved from prior study. Findings may represent a improving pneumonic infiltrates however underlying mild venous congestion not completely excluded. Questionable small layering effusions. . PLEURA: No pneumothorax apparent. CARDIOVASCULAR: Heart appears enlarged. OSSEOUS STRUCTURES: No significant abnormalities. VISUALIZED UPPER ABDOMEN: Normal. OTHER FINDINGS: No change right IJ MediPort tip in the SVC. IMPRESSION: Poor inspiration with low lung volumes, crowded bronchovascular markings and mild bibasilar atelectasis and or residual infiltrates slightly improved from prior study. Findings may represent a improving pneumonic infiltrates however underlying mild venous congestion not completely excluded. Questionable small layering effusions.
--- NOTE | 2016-05-29 19:39 | CP.PCM.PN ---
Subjective - Date & Time of Evaluation Date of Evaluation: 05/29/16 Time of Evaluation: 18:00 - Subjective Subjective: Has pain Objective - Vital Signs/Intake and Output Vital Signs (last 24 hours): Temp Pulse Resp BP Pulse Ox 99 F 83 20 116/76 96 05/29/16 16:00 05/29/16 16:00 05/29/16 16:00 05/29/16 16:00 05/29/16 16:00 Intake and Output: 05/29/16 05/30/16 18:59 06:59 Intake Total 420 Output Total 1400 Balance -980 - Medications Medications: Current Medications Diphenhydramine HCl (Benadryl) 25 mg IVP Q6 PRN PRN Reason: Itching / Pruritus Last Admin: 05/29/16 18:22 Dose: 25 mg Divalproex Sodium (Depakote Dr (*Bid*)) 250 mg PO BID [facility] PRN Reason: Protocol Last Admin: 05/29/16 18:22 Dose: 250 mg Docusate Sodium (Colace) 100 mg PO TID [facility] Last Admin: 05/29/16 18:22 Dose: 100 mg Enoxaparin Sodium (Lovenox) 40 mg SC DAILY [facility] PRN Reason: Protocol Last Admin: 05/29/16 09:53 Dose: 40 mg Famotidine (Pepcid) 20 mg PO DAILY [facility] Last Admin: 05/29/16 09:53 Dose: 20 mg Folic Acid (Folic Acid) 1 mg PO DAILY [facility] Last Admin: 05/29/16 09:53 Dose: 1 mg Hydromorphone HCl (Dilaudid) 0.5 mg IVP Q4H PRN PRN Reason: Pain, moderate (4-7) Last Admin: 05/29/16 18:23 Dose: 0.5 mg Hydroxyurea (Hydrea) 500 mg PO BID [facility] Last Admin: 05/29/16 18:25 Dose: 500 mg Sodium Chloride (Sodium Chloride 0.9%) 1,000 mls @ 200 mls/hr IV .Q5H [facility] Last Admin: 05/29/16 19:25 Dose: Not Given Levofloxacin/Dextrose (Levaquin 500mg) 100 mls @ 100 mls/hr IVPB DAILY [facility] Last Admin: 05/29/16 15:08 Dose: 100 mls/hr Multi-Ingredient Cream (Hydrocerin Cream) 0 ea TOP DAILY [facility] Last Admin: 05/29/16 11:00 Dose: 1 applic Multivitamins (Thera Tab) 1 tab PO DAILY [facility] Last Admin: 05/29/16 09:52 Dose: 1 tab Quetiapine Fumarate (Seroquel Xr) 100 mg PO DAILY [facility] PRN Reason: Protocol Last Admin: 05/29/16 09:52 Dose: 100 mg Trazodone HCl (Desyrel) 50 mg PO HS PRN PRN Reason: Pain, moderate (4-7) - Labs Labs: 05/29/16 10:20 05/29/16 10:20 - Head Exam Head Exam: ATRAUMATIC - Eye Exam Eye Exam: Normal appearance - ENT Exam ENT Exam: Mucous Membranes Dry - Respiratory Exam Respiratory Exam: NORMAL BREATHING PATTERN - Cardiovascular Exam Cardiovascular Exam: +S1, +S2 - GI/Abdominal Exam GI & Abdominal Exam: Normal Bowel Sounds - Neurological Exam Neurological Exam: Oriented x3 - Psychiatric Exam Psychiatric exam: Normal Affect, Normal Mood - Skin Skin Exam: Warm Assessment and Plan (1) Sickle cell pain crisis Assessment & Plan: IV fluids, pain meds, folic acid, 02 via NC s/p PRBC transfusion Status: Acute (2) Iron overload due to repeated red blood cell transfusions Assessment & Plan: minimize transfusion support outpatient chelation Status: Chronic (3) Thrombocytopenia Assessment & Plan: mild, secondary to hydrea Status: Acute (4) Sickle cell anemia Assessment & Plan: folic acid and hydrea Status: Chronic
[2016-05-30] MEDS: Sodium Chloride 0.9% 1,000 ML IV SCH ×5 (00:59→20:00)
[2016-05-30] MEDS: HYDROmorphone 0.5 mg/0.5 ml ISec IVP PRN ×5 (03:25→20:06)
[2016-05-30 06:48] LABS: MEAN CELL VOLUME 104.7 fL (80.0-105.0); MEAN CORPUSCULAR HEMOGLOBIN 37.3 pg (25.0-35.0); MEAN CORPUSCULAR HGB CONC 35.6 g/dl (31.0-37.0); MEAN PLATELET VOLUME 10.3 fl (7.0-11.0); PLATELET COUNT 130 10^3/uL (120.0-450.0); RED CELL DISTRIBUTION WIDTH 32.7 % (11.5-14.5); WHITE BLOOD COUNT 9.1 10^3/ul (4.5-11.0)
[2016-05-30 06:49] LABS: ALB/GLOB RATIO 0.7 (1.1-1.8); ALKALINE PHOSPHATASE 120 U/L (38-133); ALT/SGPT 87 U/L (7-56); AST/SGOT 106 U/L (15-39); BLOOD UREA NITROGEN 5 mg/dL (7-21); CALCIUM 7.8 mg/dL (8.4-10.5); CARBON DIOXIDE 25 mmol/L (21-33); CHLORIDE 110 mmol/L (98-107); GFR AFRICAN-AMERICAN > 60; GLUCOSE,RANDOM 75 mg/dL (70-110); POTASSIUM 3.7 mmol/L (3.6-5.0); SODIUM 142 mmol/L (132-148); TOTAL PROTEIN 6.5 g/dL (5.8-8.3)
[2016-05-30 06:54] LABS: ADD MANUAL DIFF? YES
[2016-05-30 06:56] LABS: RETIC% 20.44 % (0.5-1.5)
[2016-05-30 06:57] LABS: HEMATOCRIT 22.2 % (36.0-48.0)
[2016-05-30] MEDS: DiphenhydrAMINE 50 mg/ml Inj IVP PRN ×2 (07:43→15:58)
[2016-05-30 08:56] LABS: ATYPICAL LYMPHOCYTE 2 % (0.0-0.0); EOSINOPHIL 5 % (0.0-3.0); NEUTROPHIL 61 % (50.0-70.0)
[2016-05-30 08:57] LABS: ANISOCYTOSIS 2+; CORRECTED WBC 7.5 K/mm3 (4.5-11.0); HYPOCHROMIA 2+; NUCLEATED RED BLOOD CELL 22 %; OVALOCYTES 1+; PLATELET ESTIMATE NORMAL (NORMAL); POIKILOCYTOSIS 2+; POLYCHROMASIA 1+; TARGET CELLS SLIGHT; TEAR DROP CELLS SLIGHT
[2016-05-30] MEDS: Multivitamin Therapeutic Tab PO SCH (10:07)
[2016-05-30] MEDS: Enoxaparin 40 mg Syringe SC SCH (10:07)
[2016-05-30] MEDS: Hydrocerin(120 gm) TOP SCH (10:09)
[2016-05-30] MEDS: QUEtiapine 50 mg XR Tab PO SCH (10:13)
[2016-05-30] MEDS: Divalproex 250 mg DR (BID formulation) PO SCH ×2 (10:14→17:43)
--- NOTE | 2016-05-30 12:59 | CP.PCM.PN ---
<Brandy Galarza - Last Filed: 05/30/16 13:06> Subjective - Date & Time of Evaluation Date of Evaluation: 05/30/16 Time of Evaluation: 10:45 - Subjective Subjective: Hospitalists progress note for Dr. Pritchett Pt s/e at bedside this AM. NAEO. Patient is still mildly lethargic, but more interactive than yesterday. States that she has sharp, diffuse chest pain worse with inhalation and exhalation, but denies any palpitations or tachycardia. Denies any SOB but reports an intermittent non-productive cough. Also complains of R leg pain but denies fevers, chills, nausea, vomiting, diarrhea, constipation. Encouraged PO fluid intake and incentive spirometer use. Objective - Vital Signs/Intake and Output Vital Signs (last 24 hours): Temp Pulse Resp BP Pulse Ox 98.3 F 71 20 119/74 97 05/30/16 06:00 05/30/16 06:00 05/30/16 06:00 05/30/16 06:00 05/30/16 06:00 Intake and Output: 05/30/16 05/30/16 06:59 18:59 Intake Total 240 Output Total 1200 Balance -960 - Medications Medications: Current Medications Diphenhydramine HCl (Benadryl) 25 mg IVP Q6 PRN PRN Reason: Itching / Pruritus Last Admin: 05/30/16 07:43 Dose: 25 mg Divalproex Sodium (Depakote Dr (*Bid*)) 250 mg PO BID [facility] PRN Reason: Protocol Last Admin: 05/30/16 10:14 Dose: 250 mg Docusate Sodium (Colace) 100 mg PO TID [facility] Last Admin: 05/30/16 10:05 Dose: 100 mg Enoxaparin Sodium (Lovenox) 40 mg SC DAILY [facility] PRN Reason: Protocol Last Admin: 05/30/16 10:07 Dose: 40 mg Famotidine (Pepcid) 20 mg PO DAILY [facility] Last Admin: 05/30/16 10:07 Dose: 20 mg Folic Acid (Folic Acid) 1 mg PO DAILY [facility] Last Admin: 05/30/16 10:07 Dose: 1 mg Hydromorphone HCl (Dilaudid) 0.5 mg IVP Q4H PRN PRN Reason: Pain, moderate (4-7) Last Admin: 05/30/16 12:08 Dose: 0.5 mg Hydroxyurea (Hydrea) 500 mg PO BID [facility] Last Admin: 05/30/16 10:07 Dose: 500 mg Sodium Chloride (Sodium Chloride 0.9%) 1,000 mls @ 200 mls/hr IV .Q5H [facility] Last Admin: 05/30/16 10:07 Dose: 200 mls/hr Levofloxacin/Dextrose (Levaquin 500mg) 100 mls @ 100 mls/hr IVPB DAILY [facility] Last Admin: 05/30/16 10:08 Dose: 100 mls/hr Multi-Ingredient Cream (Hydrocerin Cream) 0 ea TOP DAILY [facility] Last Admin: 05/30/16 10:09 Dose: 1 applic Multivitamins (Thera Tab) 1 tab PO DAILY [facility] Last Admin: 05/30/16 10:07 Dose: 1 tab Quetiapine Fumarate (Seroquel Xr) 100 mg PO DAILY [facility] PRN Reason: Protocol Last Admin: 05/30/16 10:13 Dose: 100 mg Trazodone HCl (Desyrel) 50 mg PO HS PRN PRN Reason: Pain, moderate (4-7) - Labs Labs: 05/30/16 06:30 05/30/16 06:30 - Constitutional Appears: Non-toxic, No Acute Distress - Head Exam Head Exam: ATRAUMATIC, NORMOCEPHALIC - Eye Exam Eye Exam: Normal appearance. absent: Conjunctival injection, Scleral icterus - ENT Exam ENT Exam: Mucous Membranes Moist, Normal Oropharynx - Respiratory Exam Respiratory Exam: Clear to Ausculation Bilateral, NORMAL BREATHING PATTERN. absent: Accessory Muscle Use, Respiratory Distress - Cardiovascular Exam Cardiovascular Exam: RRR, +S1, +S2. absent: Murmur - GI/Abdominal Exam GI & Abdominal Exam: Soft. absent: Distended, Tenderness - Extremities Exam Extremities Exam: Calf Tenderness (R calf tenderness). absent: Pedal Edema Additional comments: no calf swelling or erythema, dependent 1+ pitting edema on dependent portions of lower extremities BL - Neurological Exam Neurological Exam: Altered, Awake - Psychiatric Exam Psychiatric exam: Flat Affect, Normal Mood - Skin Skin Exam: Dry, Intact, Normal Color, Warm Assessment and Plan - Assessment and Plan (Free Text) Assessment: 35 year old female with PMH including cerebral palsy, sickle cell anemia, HTN, bipolar disorder, and asthma, who presented to [facility] [place] with generalized pain in sickle cell crisis 1. Sickle Cell Crisis Hgb down to 7.9 from 8.5 yesterday. Continue to monitor closely Retic count up to 20.44 from 19.8 yesterday NS @ 200 ml/hr dilaudid 0.5 mg q4 PRN for pain Multivitamin 1 tab PO daily Folic Acid 1 mg PO daily Hydroxyurea 500 PO BID Heme/Onc consult, Dr. Palacios, recs: hydration, folate, avoid transfusion therapy as much as possible d/t liver transaminitis, outpatient chelation therapy Aspiration and fall precautions Regular diet--encourage fluid intake 2. Bilateral pulmonary opacities: pneumonia vs atelectasis vs acute chest syndrome CXR on 05/27: Bibasilar patchy infiltrates--atelectasis vs pneumonia CXR P&A on 05/29: improving pneumonic infiltrates vs mild venous congestion, possible small effusion 1unit PRBC's administered 2 days ago CBC down to 9.1 from 16.3 at admit Levaquin 500mg QD Duonebs Q6 Incentive spirometer Respiratory therapy consult--Appreciate help 3. Bipolar Disorder Depakote 250 mg PO BID Trazodone 50 mg PO HS PRN Seroquel 100 mg PO daily 4. Prophylactic measures Colace 100 PO TID Pepcid 20 mg PO daily Lovenox 40 mg SC daily Hydrocerin cream PRN Dispo: anticipate continued inpatient admission to for at least the next 24 hours PT/OT consults <Jemam Pritchett - Last Filed: 05/30/16 16:45> Objective - Vital Signs/Intake and Output Vital Signs (last 24 hours): Temp Pulse Resp BP Pulse Ox 98.6 F 84 18 129/88 92 L 05/30/16 16:00 05/30/16 16:00 05/30/16 16:00 05/30/16 16:00 05/30/16 16:00 Intake and Output: 05/30/16 05/30/16 06:59 18:59 Intake Total 240 480 Output Total 1200 800 Balance -960 -320 - Medications Medications: Current Medications Albuterol/Ipratropium (Duoneb 3 Mg/0.5 Mg (3 Ml) Ud) 3 ml IH [id number] [facility] Diphenhydramine HCl (Benadryl) 25 mg IVP Q6 PRN PRN Reason: Itching / Pruritus Last Admin: 05/30/16 15:58 Dose: 25 mg Divalproex Sodium (Depakote Dr (*Bid*)) 250 mg PO BID [facility] PRN Reason: Protocol Last Admin: 05/30/16 10:14 Dose: 250 mg Docusate Sodium (Colace) 100 mg PO TID [facility] Last Admin: 05/30/16 14:24 Dose: 100 mg Enoxaparin Sodium (Lovenox) 40 mg SC DAILY [facility] PRN Reason: Protocol Last Admin: 05/30/16 10:07 Dose: 40 mg Famotidine (Pepcid) 20 mg PO DAILY [facility] Last Admin: 05/30/16 10:07 Dose: 20 mg Folic Acid (Folic Acid) 1 mg PO DAILY [facility] Last Admin: 05/30/16 10:07 Dose: 1 mg Hydromorphone HCl (Dilaudid) 0.5 mg IVP Q4H PRN PRN Reason: Pain, moderate (4-7) Last Admin: 05/30/16 15:58 Dose: 0.5 mg Hydroxyurea (Hydrea) 500 mg PO BID [facility] Last Admin: 05/30/16 10:07 Dose: 500 mg Sodium Chloride (Sodium Chloride 0.9%) 1,000 mls @ 200 mls/hr IV .Q5H [facility] Last Admin: 05/30/16 15:59 Dose: 200 mls/hr Levofloxacin/Dextrose (Levaquin 500mg) 100 mls @ 100 mls/hr IVPB DAILY [facility] Last Admin: 05/30/16 10:08 Dose: 100 mls/hr Multi-Ingredient Cream (Hydrocerin Cream) 0 ea TOP DAILY [facility] Last Admin: 05/30/16 10:09 Dose: 1 applic Multivitamins (Thera Tab) 1 tab PO DAILY [facility] Last Admin: 05/30/16 10:07 Dose: 1 tab Quetiapine Fumarate (Seroquel Xr) 100 mg PO DAILY [facility] PRN Reason: Protocol Last Admin: 05/30/16 10:13 Dose: 100 mg Trazodone HCl (Desyrel) 50 mg PO HS PRN PRN Reason: Pain, moderate (4-7) - Labs Labs: 05/30/16 06:30 05/30/16 06:30 Assessment and Plan - Assessment and Plan (Free Text) Assessment: Attending note: patient seen and examined with resident. This is a 35 year old female with history of sickle cell anemia, cerebral palsy , bipolar disorder who got admitted for evaluation of vaso-occlusive crises. continue oxygen, IV fluids, IV Dilaudid. improving slowly. patient got 1 unit of PRBC transfusion. Hb is 7.9. retic count is 20. Continue hydrea and folic acid. Hematology evaluation appreciated. leukocytosis resolved. chest x-ray showed possible infiltrate vs atelectasis. repeat cxr showed improving infiltrate with possible congestion. Patient is afebrile and nontoxic. procalcitonin level is low. on levofloxacin. Chelation as an outpatient for iron overload is recommended. Upon discharge patient will follow up with hematology and was PMD .
[2016-05-30] MEDS: Albuterol-Ipratrop 3 mg / 0.5 (3 ml) UD IH SCH (20:13)
--- NOTE | 2016-05-31 | CP.PCM.PN ---
Subjective - Date & Time of Evaluation Date of Evaluation: 05/30/16 Time of Evaluation: 16:00 - Subjective Subjective: Has pain in legs Objective - Vital Signs/Intake and Output Vital Signs (last 24 hours): Temp Pulse Resp BP Pulse Ox 98.6 F 84 18 129/88 92 L 05/30/16 16:00 05/30/16 16:00 05/30/16 16:00 05/30/16 16:00 05/30/16 16:00 Intake and Output: 05/30/16 05/31/16 18:59 06:59 Intake Total 480 360 Output Total 800 600 Balance -320 -240 - Medications Medications: Current Medications Albuterol/Ipratropium (Duoneb 3 Mg/0.5 Mg (3 Ml) Ud) 3 ml IH Q9PGION [facility] Last Admin: 05/30/16 20:13 Dose: 3 ml Diphenhydramine HCl (Benadryl) 25 mg IVP Q6 PRN PRN Reason: Itching / Pruritus Last Admin: 05/30/16 15:58 Dose: 25 mg Divalproex Sodium (Depakote Dr (*Bid*)) 250 mg PO BID [facility] PRN Reason: Protocol Last Admin: 05/30/16 17:43 Dose: 250 mg Docusate Sodium (Colace) 100 mg PO TID [facility] Last Admin: 05/30/16 17:43 Dose: 100 mg Enoxaparin Sodium (Lovenox) 40 mg SC DAILY [facility] PRN Reason: Protocol Last Admin: 05/30/16 10:07 Dose: 40 mg Famotidine (Pepcid) 20 mg PO DAILY [facility] Last Admin: 05/30/16 10:07 Dose: 20 mg Folic Acid (Folic Acid) 1 mg PO DAILY [facility] Last Admin: 05/30/16 10:07 Dose: 1 mg Hydromorphone HCl (Dilaudid) 0.5 mg IVP Q4H PRN PRN Reason: Pain, moderate (4-7) Last Admin: 05/30/16 20:06 Dose: 0.5 mg Hydroxyurea (Hydrea) 500 mg PO BID [facility] Last Admin: 05/30/16 17:44 Dose: 500 mg Sodium Chloride (Sodium Chloride 0.9%) 1,000 mls @ 200 mls/hr IV .Q5H [facility] Last Admin: 05/30/16 15:59 Dose: 200 mls/hr Levofloxacin/Dextrose (Levaquin 500mg) 100 mls @ 100 mls/hr IVPB DAILY [facility] Last Admin: 05/30/16 10:08 Dose: 100 mls/hr Multi-Ingredient Cream (Hydrocerin Cream) 0 ea TOP DAILY [facility] Last Admin: 05/30/16 10:09 Dose: 1 applic Multivitamins (Thera Tab) 1 tab PO DAILY [facility] Last Admin: 05/30/16 10:07 Dose: 1 tab Quetiapine Fumarate (Seroquel Xr) 100 mg PO DAILY [facility] PRN Reason: Protocol Last Admin: 05/30/16 10:13 Dose: 100 mg Trazodone HCl (Desyrel) 50 mg PO PRN PRN Reason: Pain, moderate (4-7) - Labs Labs: 05/30/16 06:30 05/30/16 06:30 - Head Exam Head Exam: ATRAUMATIC - Eye Exam Eye Exam: Scleral icterus - ENT Exam ENT Exam: Mucous Membranes Dry - Respiratory Exam Respiratory Exam: NORMAL BREATHING PATTERN - Cardiovascular Exam Cardiovascular Exam: +S1, +S2 - GI/Abdominal Exam GI & Abdominal Exam: Normal Bowel Sounds Assessment and Plan (1) Sickle cell pain crisis Assessment & Plan: IV fluids, folic acid, pain meds, 02 via NC s/p PRBC transfusion Status: Acute (2) Iron overload due to repeated red blood cell transfusions Assessment & Plan: outpatient chelation Status: Chronic (3) Thrombocytopenia Assessment & Plan: mild secondary to hydrea Status: Acute (4) Sickle cell anemia Assessment & Plan: folic acid and hydrea Status: Chronic
[2016-05-31] MEDS: HYDROmorphone 0.5 mg/0.5 ml ISec IVP PRN ×6 (01:14→21:17)
[2016-05-31] MEDS: DiphenhydrAMINE 50 mg/ml Inj IVP PRN ×3 (01:14→17:04)
[2016-05-31] MEDS: Albuterol-Ipratrop 3 mg / 0.5 (3 ml) UD IH SCH ×4 (01:49→19:40)
[2016-05-31] MEDS: Sodium Chloride 0.9% 1,000 ML IV SCH ×4 (02:00→22:16)
[2016-05-31 06:39] LABS: BASO # 0.03 K/mm3 (0.0-2.0); BASO % 0.4 % (0.0-3.0); EOS # 0.2 (0.0-0.7); GRAN # 4.54 (1.4-6.5); GRAN % 53.1 % (50.0-68.0); LYMPH # 3.3 (1.2-3.4); LYMPH % 38.2 % (22.0-35.0); MEAN CELL VOLUME 104.9 fL (80.0-105.0); MEAN CORPUSCULAR HEMOGLOBIN 37.2 pg (25.0-35.0); MEAN CORPUSCULAR HGB CONC 35.5 g/dl (31.0-37.0); MEAN PLATELET VOLUME 9.6 fl (7.0-11.0); MONO # 0.5 (0.1-0.6); MONO % 6.3 % (1.0-6.0); PLATELET COUNT 138 10^3/uL (120.0-450.0); RED CELL DISTRIBUTION WIDTH 31.1 % (11.5-14.5)
[2016-05-31 06:50] LABS: HEMATOCRIT 23.4 % (36.0-48.0)
[2016-05-31 07:02] LABS: ADD MANUAL DIFF? NO; ALB/GLOB RATIO 0.7 (1.1-1.8); ALKALINE PHOSPHATASE 108 U/L (38-133); ALT/SGPT 79 U/L (7-56); AST/SGOT 96 U/L (15-39); BILIRUBIN,TOTAL 2.4 mg/dL (0.2-1.3); BLOOD UREA NITROGEN 3 mg/dL (7-21); CALCIUM 7.7 mg/dL (8.4-10.5); CARBON DIOXIDE 27 mmol/L (21-33); CHLORIDE 108 mmol/L (98-107); GFR AFRICAN-AMERICAN > 60; GLUCOSE,RANDOM 97 mg/dL (70-110); POTASSIUM 3.3 mmol/L (3.6-5.0); SODIUM 141 mmol/L (132-148); TOTAL PROTEIN 6.6 g/dL (5.8-8.3)
--- NOTE | 2016-05-31 08:55 | CP.PCM.PN ---
<Ayana Benoity - Last Filed: 05/31/16 12:19> Subjective - Date & Time of Evaluation Date of Evaluation: 05/31/16 Time of Evaluation: 07:20 - Subjective Subjective: PGY-1 Medicine Progress Note for Dr. Pritchett Patient seen and examined at bedside. No acute event overnight. Patient lying in bed comfortably. She is still complaining of pain in hips and bilateral chest. Patient has poor oral intake. She has not been drinking or eating much. Denied fever/chills, sob, palpitations, abd pain, n/v/d, constipation. Objective - Vital Signs/Intake and Output Vital Signs (last 24 hours): Temp Pulse Resp BP Pulse Ox 98.6 F 84 18 129/88 92 L 05/30/16 16:00 05/30/16 16:00 05/30/16 16:00 05/30/16 16:00 05/30/16 16:00 Intake and Output: 05/31/16 05/31/16 06:59 18:59 Intake Total 360 240 Output Total 600 Balance -240 240 - Medications Medications: Current Medications Albuterol/Ipratropium (Duoneb 3 Mg/0.5 Mg (3 Ml) Ud) 3 ml IH [id number] [facility] Last Admin: 05/31/16 08:20 Dose: Not Given Diphenhydramine HCl (Benadryl) 25 mg IVP Q6 PRN PRN Reason: Itching / Pruritus Last Admin: 05/31/16 01:14 Dose: 25 mg Divalproex Sodium (Depakote Dr (*Bid*)) 250 mg PO BID [facility] PRN Reason: Protocol Last Admin: 05/30/16 17:43 Dose: 250 mg Docusate Sodium (Colace) 100 mg PO TID [facility] Last Admin: 05/30/16 17:43 Dose: 100 mg Enoxaparin Sodium (Lovenox) 40 mg SC DAILY [facility] PRN Reason: Protocol Last Admin: 05/30/16 10:07 Dose: 40 mg Famotidine (Pepcid) 20 mg PO DAILY [facility] Last Admin: 05/30/16 10:07 Dose: 20 mg Folic Acid (Folic Acid) 1 mg PO DAILY [facility] Last Admin: 05/30/16 10:07 Dose: 1 mg Hydromorphone HCl (Dilaudid) 0.5 mg IVP Q4H PRN PRN Reason: Pain, moderate (4-7) Last Admin: 05/31/16 05:02 Dose: 0.5 mg Hydroxyurea (Hydrea) 500 mg PO BID [facility] Last Admin: 05/30/16 17:44 Dose: 500 mg Sodium Chloride (Sodium Chloride 0.9%) 1,000 mls @ 200 mls/hr IV .Q5H [facility] Last Admin: 05/31/16 02:00 Dose: 200 mls/hr Levofloxacin/Dextrose (Levaquin 500mg) 100 mls @ 100 mls/hr IVPB DAILY [facility] Last Admin: 05/30/16 10:08 Dose: 100 mls/hr Multi-Ingredient Cream (Hydrocerin Cream) 0 ea TOP DAILY [facility] Last Admin: 05/30/16 10:09 Dose: 1 applic Multivitamins (Thera Tab) 1 tab PO DAILY [facility] Last Admin: 05/30/16 10:07 Dose: 1 tab Quetiapine Fumarate (Seroquel Xr) 100 mg PO DAILY [facility] PRN Reason: Protocol Last Admin: 05/30/16 10:13 Dose: 100 mg Trazodone HCl (Desyrel) 50 mg PO HS PRN PRN Reason: Pain, moderate (4-7) - Labs Labs: 05/31/16 06:30 05/31/16 06:30 - Constitutional Appears: No Acute Distress - Head Exam Head Exam: ATRAUMATIC, NORMOCEPHALIC - Eye Exam Eye Exam: EOMI, Normal appearance Pupil Exam: PERRL - ENT Exam ENT Exam: Mucous Membranes Moist - Neck Exam Neck Exam: Normal Inspection - Respiratory Exam Respiratory Exam: Clear to Ausculation Bilateral, NORMAL BREATHING PATTERN - Cardiovascular Exam Cardiovascular Exam: REGULAR RHYTHM, +S1, +S2 - GI/Abdominal Exam GI & Abdominal Exam: Soft, Normal Bowel Sounds. absent: Tenderness - Extremities Exam Extremities Exam: Normal Capillary Refill - Back Exam Back Exam: absent: CVA tenderness (L), CVA tenderness (R) - Neurological Exam Neurological Exam: Alert, Awake, CN II-XII Intact, Oriented x3 - Psychiatric Exam Psychiatric exam: Normal Affect, Normal Mood - Skin Skin Exam: Dry, Intact, Normal Color, Warm Assessment and Plan - Assessment and Plan (Free Text) Plan: 35 year old female with PMH including cerebral palsy, sickle cell anemia, HTN, bipolar disorder, and asthma, who presented to [facility] with generalized pain in sickle cell crisis 1. Sickle Cell Crisis Continue to monitor closely Hgb Retic count downtrending NS @ 125 ml/hr Dilaudid 0.5 mg q4 PRN for pain Multivitamin 1 tab PO daily Folic Acid 1 mg PO daily Hydroxyurea 500 PO BID Heme/Onc consult, Dr. Palacios, recs: hydration, folate, avoid transfusion therapy as much as possible d/t liver transaminitis, outpatient chelation therapy Aspiration and fall precautions Regular diet--encourage fluid intake 2. Bilateral pulmonary opacities: pneumonia vs atelectasis vs acute chest syndrome CXR on 05/27: Bibasilar patchy infiltrates--atelectasis vs pneumonia CXR P&A on 05/29: improving pneumonic infiltrates vs mild venous congestion, possible small effusion transfused 1 unit PRBC this admission Levaquin 500 mg IVPB daily Duonebs Q6 Incentive spirometer Respiratory therapy consult, help appreciated 3. Bipolar Disorder Depakote 250 mg PO BID Trazodone 50 mg PO HS PRN Seroquel 100 mg PO daily 4. Prophylactic measures Colace 100 PO TID Pepcid 20 mg PO daily Lovenox 40 mg SC daily Hydrocerin cream PRN <Jemma Pritchett - Last Filed: 05/31/16 15:48> Objective - Vital Signs/Intake and Output Vital Signs (last 24 hours): Temp Pulse Resp BP Pulse Ox 98.1 F 84 20 131/89 100 05/31/16 06:00 05/31/16 06:00 05/31/16 06:00 05/31/16 06:00 05/31/16 06:00 Intake and Output: 05/31/16 05/31/16 06:59 18:59 Intake Total 360 240 Output Total 600 Balance -240 240 - Medications Medications: Current Medications Albuterol/Ipratropium (Duoneb 3 Mg/0.5 Mg (3 Ml) Ud) 3 ml IH [id number] [facility] Last Admin: 05/31/16 13:37 Dose: Not Given Diphenhydramine HCl (Benadryl) 25 mg IVP Q6 PRN PRN Reason: Itching / Pruritus Last Admin: 05/31/16 09:08 Dose: 25 mg Divalproex Sodium (Depakote Dr (*Bid*)) 250 mg PO BID [facility] PRN Reason: Protocol Last Admin: 05/31/16 09:07 Dose: 250 mg Docusate Sodium (Colace) 100 mg PO TID [facility] Last Admin: 05/31/16 13:00 Dose: 100 mg Enoxaparin Sodium (Lovenox) 40 mg SC DAILY [facility] PRN Reason: Protocol Last Admin: 05/31/16 09:06 Dose: 40 mg Famotidine (Pepcid) 20 mg PO DAILY [facility] Last Admin: 05/31/16 09:07 Dose: 20 mg Folic Acid (Folic Acid) 1 mg PO DAILY [facility] Last Admin: 05/31/16 09:08 Dose: 1 mg Hydromorphone HCl (Dilaudid) 0.5 mg IVP Q4H PRN PRN Reason: Pain, moderate (4-7) Last Admin: 05/31/16 13:01 Dose: 0.5 mg Hydroxyurea (Hydrea) 500 mg PO BID [facility] Last Admin: 05/31/16 10:35 Dose: 500 mg Levofloxacin/Dextrose (Levaquin 500mg) 100 mls @ 100 mls/hr IVPB DAILY [facility] Last Admin: 05/31/16 09:05 Dose: 100 mls/hr Sodium Chloride (Sodium Chloride 0.9%) 1,000 mls @ 125 mls/hr IV .Q8H [facility] Multi-Ingredient Cream (Hydrocerin Cream) 0 ea TOP DAILY [facility] Last Admin: 05/31/16 10:35 Dose: 1 applic Multivitamins (Thera Tab) 1 tab PO DAILY [facility] Last Admin: 05/31/16 09:06 Dose: 1 tab Quetiapine Fumarate (Seroquel Xr) 100 mg PO DAILY [facility] PRN Reason: Protocol Last Admin: 05/31/16 09:07 Dose: 100 mg Trazodone HCl (Desyrel) 50 mg PO HS PRN PRN Reason: Pain, moderate (4-7) - Labs Labs: 05/31/16 06:30 05/31/16 06:30 Assessment and Plan - Assessment and Plan (Free Text) Assessment: Attending note: patient seen and examined with resident. This is a 35 year old female with history of sickle cell anemia, cerebral palsy , bipolar disorder who got admitted for evaluation of vaso-occlusive crises. continue oxygen, IV fluids, IV Dilaudid. improving slowly. patient got 1 unit of PRBC transfusion. Hb is8.3. retic count is 17.5 . Continue hydrea and folic acid. Hematology evaluation appreciated. leukocytosis resolved. chest x-ray showed possible infiltrate vs atelectasis. repeat cxr showed improving infiltrate with possible congestion. Patient is afebrile and nontoxic. procalcitonin level is low. on levofloxacin. Chelation as an outpatient for iron overload is recommended. Upon discharge patient will follow up with hematology and was PMD . Attending/Attestation - Attestation I have personally seen and examined this patient.: Yes I have fully participated in the care of the patient.: Yes I have reviewed all pertinent clinical information, including history, physical exam and plan: Yes
[2016-05-31] MEDS ORDERED: Potassium Chloride 20 mEq ER Tab PO ONE (08:56)
[2016-05-31] MEDS: Enoxaparin 40 mg Syringe SC SCH (09:06)
[2016-05-31] MEDS: Multivitamin Therapeutic Tab PO SCH (09:06)
[2016-05-31] MEDS: Divalproex 250 mg DR (BID formulation) PO SCH ×2 (09:07→17:05)
[2016-05-31] MEDS: QUEtiapine 50 mg XR Tab PO SCH (09:07)
[2016-05-31] MEDS: Hydrocerin(120 gm) TOP SCH (10:35)
[2016-05-31 10:51] LABS: WHITE BLOOD COUNT 8.5 10^3/ul (4.5-11.0)
[2016-06-01] MEDS: DiphenhydrAMINE 50 mg/ml Inj IVP PRN ×3 (01:20→17:53)
[2016-06-01] MEDS: HYDROmorphone 0.5 mg/0.5 ml ISec IVP PRN ×5 (01:20→21:44)
[2016-06-01] MEDS: Albuterol-Ipratrop 3 mg / 0.5 (3 ml) UD IH SCH ×4 (03:06→20:45)
[2016-06-01] MEDS: Sodium Chloride 0.9% 1,000 ML IV SCH ×2 (05:43→10:19)
[2016-06-01 06:19] LABS: ADD MANUAL DIFF? NO
[2016-06-01 06:24] LABS: BASO # 0.02 K/mm3 (0.0-2.0); BASO % 0.3 % (0.0-3.0); EOS # 0.2 (0.0-0.7); EOS % 1.9 % (1.5-5.0); GRAN # 3.63 (1.4-6.5); GRAN % 46.8 % (50.0-68.0); LYMPH # 3.4 (1.2-3.4); LYMPH % 43.9 % (22.0-35.0); MEAN CELL VOLUME 105.5 fL (80.0-105.0); MEAN CORPUSCULAR HEMOGLOBIN 36.7 pg (25.0-35.0); MEAN CORPUSCULAR HGB CONC 34.8 g/dl (31.0-37.0); MEAN PLATELET VOLUME 9.6 fl (7.0-11.0); MONO # 0.6 (0.1-0.6); MONO % 7.1 % (1.0-6.0); PLATELET COUNT 103 10^3/uL (120.0-450.0); RED CELL DISTRIBUTION WIDTH 30.1 % (11.5-14.5); WHITE BLOOD COUNT 7.8 10^3/ul (4.5-11.0)
[2016-06-01 06:30] LABS: ALB/GLOB RATIO 0.8 (1.1-1.8); ALKALINE PHOSPHATASE 110 U/L (38-133); ALT/SGPT 71 U/L (7-56); AST/SGOT 87 U/L (15-39); BILIRUBIN,TOTAL 2.5 mg/dL (0.2-1.3); BLOOD UREA NITROGEN 4 mg/dL (7-21); CALCIUM 7.9 mg/dL (8.4-10.5); CARBON DIOXIDE 27 mmol/L (21-33); CHLORIDE 108 mmol/L (95-110); GFR AFRICAN-AMERICAN > 60; GLUCOSE,RANDOM 89 mg/dL (70-110); POTASSIUM 3.9 mmol/L (3.6-5.0); SODIUM 143 mmol/L (132-148); TOTAL PROTEIN 6.7 g/dL (5.8-8.3)
[2016-06-01 06:39] LABS: RETIC% 14.09 % (0.5-1.5)
[2016-06-01] MEDS ORDERED: Magnesium Citrate Oral SOL (300 ml) PO ONE (08:45)
[2016-06-01] MEDS: Divalproex 250 mg DR (BID formulation) PO SCH (09:42)
[2016-06-01] MEDS: QUEtiapine 50 mg XR Tab PO SCH (09:43)
[2016-06-01] MEDS: Multivitamin Therapeutic Tab PO SCH (09:43)
[2016-06-01] MEDS: POLYETHYLENE GLYCOL 3350 17 GM/Dose PACKET PO SCH ×2 (09:44→17:51)
[2016-06-01] MEDS: Enoxaparin 40 mg Syringe SC SCH (09:44)
--- NOTE | 2016-06-01 12:19 | CP.PCM.PN ---
<Joao Conklin - Last Filed: 06/01/16 19:07> Subjective - Date & Time of Evaluation Date of Evaluation: 06/01/16 Time of Evaluation: 07:30 - Subjective Subjective: Patient seen and examined at bedside. No acute events overnight. Patient lying in bed comfortably. ROS was unable to be obtained due to pt. declining interview , but she did complain of constipation. Objective - Vital Signs/Intake and Output Vital Signs (last 24 hours): Temp Pulse Resp BP Pulse Ox 98.3 F 74 18 133/90 95 06/01/16 11:01 06/01/16 11:01 06/01/16 11:01 06/01/16 11:01 06/01/16 11:01 Intake and Output: 06/01/16 06/01/16 06:59 18:59 Intake Total 2400 Output Total 500 Balance 1900 - Medications Medications: Current Medications Albuterol/Ipratropium (Duoneb 3 Mg/0.5 Mg (3 Ml) Ud) 3 ml IH [id number] [facility] Last Admin: 06/01/16 07:17 Dose: Not Given Diphenhydramine HCl (Benadryl) 25 mg IVP Q6 PRN PRN Reason: Itching / Pruritus Last Admin: 06/01/16 09:42 Dose: 25 mg Divalproex Sodium (Depakote Dr (*Bid*)) 250 mg PO BID [facility] PRN Reason: Protocol Last Admin: 06/01/16 09:42 Dose: 250 mg Docusate Sodium (Colace) 100 mg PO TID [facility] Last Admin: 06/01/16 09:43 Dose: 100 mg Enoxaparin Sodium (Lovenox) 40 mg SC DAILY [facility] PRN Reason: Protocol Last Admin: 06/01/16 09:44 Dose: 40 mg Famotidine (Pepcid) 20 mg PO DAILY [facility] Last Admin: 06/01/16 09:41 Dose: 20 mg Folic Acid (Folic Acid) 1 mg PO DAILY [facility] Last Admin: 06/01/16 09:43 Dose: 1 mg Hydromorphone HCl (Dilaudid) 0.5 mg IVP Q4H PRN PRN Reason: Pain, moderate (4-7) Last Admin: 06/01/16 06:00 Dose: 0.5 mg Hydroxyurea (Hydrea) 500 mg PO BID [facility] Last Admin: 06/01/16 09:53 Dose: 500 mg Levofloxacin/Dextrose (Levaquin 500mg) 100 mls @ 100 mls/hr IVPB DAILY [facility] Last Admin: 06/01/16 09:48 Dose: 100 mls/hr Sodium Chloride (Sodium Chloride 0.9%) 1,000 mls @ 125 mls/hr IV .Q8H [facility] Last Admin: 06/01/16 10:19 Dose: 125 mls/hr Multi-Ingredient Cream (Hydrocerin Cream) 0 ea TOP DAILY [facility] Last Admin: 05/31/16 10:35 Dose: 1 applic Multivitamins (Thera Tab) 1 tab PO DAILY [facility] Last Admin: 06/01/16 09:43 Dose: 1 tab Polyethylene Glycol (Miralax) 17 gm PO BID [facility] Last Admin: 06/01/16 09:44 Dose: 17 gm Quetiapine Fumarate (Seroquel Xr) 100 mg PO DAILY [facility] PRN Reason: Protocol Last Admin: 06/01/16 09:43 Dose: 100 mg Trazodone HCl (Desyrel) 50 mg PO PRN PRN Reason: Pain, moderate (4-7) - Labs Labs: 06/01/16 06:15 06/01/16 06:15 - Constitutional Appears: Non-toxic, No Acute Distress - Head Exam Head Exam: ATRAUMATIC, NORMOCEPHALIC - Eye Exam Eye Exam: EOMI - ENT Exam ENT Exam: Mucous Membranes Moist - Respiratory Exam Respiratory Exam: Clear to Ausculation Bilateral, NORMAL BREATHING PATTERN - Cardiovascular Exam Cardiovascular Exam: REGULAR RHYTHM, +S1, +S2. absent: JVD - GI/Abdominal Exam GI & Abdominal Exam: Soft, Tenderness - Neurological Exam Neurological Exam: Alert, Awake, Oriented x3 - Psychiatric Exam Psychiatric exam: Depressed, Flat Affect - Skin Skin Exam: Dry, Intact, Normal Color, Warm Assessment and Plan - Assessment and Plan (Free Text) Assessment: 35 year old female who is well known to this hospital with PMH including cerebral palsy, sickle cell anemia, HTN, bipolar disorder, and asthma, who presented to [facility] with generalized pain in sickle cell crisis. Plan: 1. Sickle Cell Crisis Continue to monitor CBC closely Hgb 8.0 on 06/01 Retic count downtrending to 14.5 on 06/01 NS @ 125 ml/hr Dilaudid 0.5 mg q4 PRN for pain Multivitamin 1 tab PO daily Folic Acid 1 mg PO daily Hydroxyurea 500 PO BID Heme/Onc consult, Dr. Palacios, recs: hydration, folate, avoid transfusion therapy as much as possible d/t liver transaminitis, outpatient chelation therapy Aspiration and fall precautions Regular diet--encourage fluid intake 2. Bilateral pulmonary opacities: pneumonia vs atelectasis vs acute chest syndrome CXR on 05/27: Bibasilar patchy infiltrates--atelectasis vs pneumonia CXR P&A on 05/29: improving pneumonic infiltrates vs mild venous congestion, possible small effusion transfused 1 unit PRBC this admission Levaquin 500 mg IVPB daily Duonebs Q6 Incentive spirometer Respiratory therapy consult, help appreciated 3. Bipolar Disorder Depakote 250 mg PO BID Trazodone 50 mg PO HS PRN Seroquel 100 mg PO daily 4. Constipation Colace 100 PO TID Mirlax 17gm PO BID Mag Citrate one time dose 5. Prophylactic measures Pepcid 20 mg PO daily Lovenox 40 mg SC daily Hydrocerin cream PRN <Jemma Pritchett - Last Filed: 06/02/16 10:57> Objective - Vital Signs/Intake and Output Vital Signs (last 24 hours): Temp Pulse Resp BP Pulse Ox 98.3 F 83 18 127/81 94 L 06/02/16 09:36 06/02/16 09:36 06/02/16 09:36 06/02/16 09:36 06/02/16 09:36 Intake and Output: 06/02/16 06/02/16 06:59 18:59 Intake Total 120 Output Total 900 Balance -780 - Medications Medications: Current Medications Albuterol/Ipratropium (Duoneb 3 Mg/0.5 Mg (3 Ml) Ud) 3 ml IH [id number] [facility] Last Admin: 06/02/16 08:55 Dose: 3 ml Diphenhydramine HCl (Benadryl) 25 mg IVP Q6 PRN PRN Reason: Itching / Pruritus Last Admin: 06/02/16 10:20 Dose: 25 mg Divalproex Sodium (Depakote Dr (*Bid*)) 250 mg PO BID [facility] PRN Reason: Protocol Last Admin: 06/02/16 10:20 Dose: 250 mg Docusate Sodium (Colace) 100 mg PO TID [facility] Last Admin: 06/02/16 10:19 Dose: 100 mg Enoxaparin Sodium (Lovenox) 40 mg SC DAILY [facility] PRN Reason: Protocol Last Admin: 06/02/16 10:20 Dose: 40 mg Famotidine (Pepcid) 20 mg PO DAILY [facility] Last Admin: 06/02/16 10:18 Dose: 20 mg Folic Acid (Folic Acid) 1 mg PO DAILY [facility] Last Admin: 06/02/16 10:19 Dose: 1 mg Hydromorphone HCl (Dilaudid) 0.5 mg IVP Q4H PRN PRN Reason: Pain, moderate (4-7) Last Admin: 06/02/16 10:21 Dose: 0.5 mg Hydroxyurea (Hydrea) 500 mg PO BID [facility] Last Admin: 06/02/16 10:23 Dose: 500 mg Levofloxacin/Dextrose (Levaquin 500mg) 100 mls @ 100 mls/hr IVPB DAILY [facility] Last Admin: 06/02/16 10:20 Dose: 100 mls/hr Sodium Chloride (Sodium Chloride 0.9%) 1,000 mls @ 125 mls/hr IV .Q8H [facility] Last Admin: 06/02/16 04:02 Dose: Not Given Multi-Ingredient Cream (Hydrocerin Cream) 0 ea TOP DAILY [facility] Last Admin: 06/01/16 13:10 Dose: 1 applic Multivitamins (Thera Tab) 1 tab PO DAILY [facility] Last Admin: 06/02/16 10:19 Dose: 1 tab Polyethylene Glycol (Miralax) 17 gm PO BID [facility] Last Admin: 06/02/16 10:19 Dose: 17 gm Quetiapine Fumarate (Seroquel Xr) 100 mg PO DAILY [facility] PRN Reason: Protocol Last Admin: 06/02/16 10:17 Dose: 100 mg Trazodone HCl (Desyrel) 50 mg PO HS PRN PRN Reason: Pain, moderate (4-7) Last Admin: 06/01/16 21:44 Dose: 50 mg - Labs Labs: 06/02/16 05:30 06/02/16 05:30 Assessment and Plan - Assessment and Plan (Free Text) Assessment: Attending note: patient seen and examined with resident. This is a 35 year old female with history of sickle cell anemia, cerebral palsy , bipolar disorder who got admitted for evaluation of vaso-occlusive crises. continue oxygen, IV fluids, IV Dilaudid. improving slowly. patient got 1 unit of PRBC transfusion. HB is 8. retic count is 14 . Continue hydrea and folic acid. Hematology evaluation appreciated. leukocytosis resolved. chest x-ray showed possible infiltrate vs atelectasis. repeat cxr showed improving infiltrate with possible congestion. Patient is afebrile and nontoxic. procalcitonin level is low. on levofloxacin. Chelation as an outpatient for iron overload is recommended. Upon discharge patient will follow up with hematology and was PMD . Attending/Attestation - Attestation I have personally seen and examined this patient.: Yes I have fully participated in the care of the patient.: Yes I have reviewed all pertinent clinical information, including history, physical exam and plan: Yes
[2016-06-01] MEDS: Hydrocerin(120 gm) TOP SCH (13:10)
--- NOTE | 2016-06-01 16:46 | CP.PCM.PN ---
Subjective - Date & Time of Evaluation Date of Evaluation: 06/01/16 Time of Evaluation: 15:00 - Subjective Subjective: Has pain in legs Objective - Vital Signs/Intake and Output Vital Signs (last 24 hours): Temp Pulse Resp BP Pulse Ox 98.3 F 74 18 133/90 95 06/01/16 11:01 06/01/16 11:01 06/01/16 11:01 06/01/16 11:01 06/01/16 11:01 Intake and Output: 06/01/16 06/01/16 06:59 18:59 Intake Total 2400 480 Output Total 500 Balance 1900 480 - Medications Medications: Current Medications Albuterol/Ipratropium (Duoneb 3 Mg/0.5 Mg (3 Ml) Ud) 3 ml IH [id number] [facility] Last Admin: 06/01/16 13:13 Dose: Not Given Diphenhydramine HCl (Benadryl) 25 mg IVP Q6 PRN PRN Reason: Itching / Pruritus Last Admin: 06/01/16 09:42 Dose: 25 mg Divalproex Sodium (Depakote Dr (*Bid*)) 250 mg PO BID [facility] PRN Reason: Protocol Last Admin: 06/01/16 09:42 Dose: 250 mg Docusate Sodium (Colace) 100 mg PO TID [facility] Last Admin: 06/01/16 13:09 Dose: 100 mg Enoxaparin Sodium (Lovenox) 40 mg SC DAILY [facility] PRN Reason: Protocol Last Admin: 06/01/16 09:44 Dose: 40 mg Famotidine (Pepcid) 20 mg PO DAILY [facility] Last Admin: 06/01/16 09:41 Dose: 20 mg Folic Acid (Folic Acid) 1 mg PO DAILY [facility] Last Admin: 06/01/16 09:43 Dose: 1 mg Hydromorphone HCl (Dilaudid) 0.5 mg IVP Q4H PRN PRN Reason: Pain, moderate (4-7) Last Admin: 06/01/16 13:08 Dose: 0.5 mg Hydroxyurea (Hydrea) 500 mg PO BID [facility] Last Admin: 06/01/16 09:53 Dose: 500 mg Levofloxacin/Dextrose (Levaquin 500mg) 100 mls @ 100 mls/hr IVPB DAILY [facility] Last Admin: 06/01/16 09:48 Dose: 100 mls/hr Sodium Chloride (Sodium Chloride 0.9%) 1,000 mls @ 125 mls/hr IV .Q8H [facility] Last Admin: 06/01/16 10:19 Dose: 125 mls/hr Multi-Ingredient Cream (Hydrocerin Cream) 0 ea TOP DAILY [facility] Last Admin: 06/01/16 13:10 Dose: 1 applic Multivitamins (Thera Tab) 1 tab PO DAILY [facility] Last Admin: 06/01/16 09:43 Dose: 1 tab Polyethylene Glycol (Miralax) 17 gm PO BID [facility] Last Admin: 06/01/16 09:44 Dose: 17 gm Quetiapine Fumarate (Seroquel Xr) 100 mg PO DAILY [facility] PRN Reason: Protocol Last Admin: 06/01/16 09:43 Dose: 100 mg Trazodone HCl (Desyrel) 50 mg PO PRN PRN Reason: Pain, moderate (4-7) - Labs Labs: 06/01/16 06:15 06/01/16 06:15 - Head Exam Head Exam: ATRAUMATIC - Eye Exam Eye Exam: Scleral icterus - ENT Exam ENT Exam: Mucous Membranes Dry - Respiratory Exam Respiratory Exam: NORMAL BREATHING PATTERN - Cardiovascular Exam Cardiovascular Exam: +S1, +S2 - GI/Abdominal Exam GI & Abdominal Exam: Normal Bowel Sounds Assessment and Plan (1) Sickle cell pain crisis Assessment & Plan: IV fluids, pain meds, folic acid, 02 via NC s/p PRBC transfusion Status: Acute (2) Iron overload due to repeated red blood cell transfusions Assessment & Plan: outpatient chelation Status: Chronic (3) Thrombocytopenia Assessment & Plan: secondary to hydrea Status: Acute (4) Sickle cell anemia Assessment & Plan: outpatient folic acid and hydrea Status: Chronic
[2016-06-02] MEDS: DiphenhydrAMINE 50 mg/ml Inj IVP PRN ×3 (01:29→18:26)
[2016-06-02] MEDS: HYDROmorphone 0.5 mg/0.5 ml ISec IVP PRN ×6 (01:29→21:53)
[2016-06-02] MEDS: Albuterol-Ipratrop 3 mg / 0.5 (3 ml) UD IH SCH ×4 (01:43→19:30)
[2016-06-02] MEDS: Sodium Chloride 0.9% 1,000 ML IV SCH ×2 (04:02→11:19)
[2016-06-02 05:39] LABS: ADD MANUAL DIFF? NO
[2016-06-02 05:51] LABS: ALB/GLOB RATIO 0.8 (1.1-1.8); ALKALINE PHOSPHATASE 110 U/L (38-133); ALT/SGPT 69 U/L (7-56); AST/SGOT 82 U/L (15-39); BILIRUBIN,TOTAL 2.9 mg/dL (0.2-1.3); BLOOD UREA NITROGEN 4 mg/dL (7-21); CALCIUM 8.1 mg/dL (8.4-10.5); CARBON DIOXIDE 31 mmol/L (21-33); CHLORIDE 104 mmol/L (98-107); GFR AFRICAN-AMERICAN > 60; GLUCOSE,RANDOM 83 mg/dL (70-110); POTASSIUM 3.7 mmol/L (3.6-5.0); SODIUM 139 mmol/L (132-148)
[2016-06-02 05:52] LABS: BASO # 0.02 K/mm3 (0.0-2.0); BASO % 0.3 % (0.0-3.0); EOS # 0.1 (0.0-0.7); EOS % 1.5 % (1.5-5.0); GRAN # 3.04 (1.4-6.5); GRAN % 41.5 % (50.0-68.0); LYMPH # 3.7 (1.2-3.4); LYMPH % 50.3 % (22.0-35.0); MEAN CELL VOLUME 104.6 fL (80.0-105.0); MEAN CORPUSCULAR HEMOGLOBIN 36.5 pg (25.0-35.0); MEAN CORPUSCULAR HGB CONC 34.9 g/dl (31.0-37.0); MEAN PLATELET VOLUME 9.4 fl (7.0-11.0); MONO # 0.5 (0.1-0.6); MONO % 6.4 % (1.0-6.0); PLATELET COUNT 78 10^3/uL (120.0-450.0); RED CELL DISTRIBUTION WIDTH 28.9 % (11.5-14.5); WHITE BLOOD COUNT 7.3 10^3/ul (4.5-11.0)
[2016-06-02 05:53] LABS: RETIC% 11.16 % (0.5-1.5)
[2016-06-02 05:54] LABS: HEMATOCRIT 22.9 % (36.0-48.0)
[2016-06-02] MEDS: QUEtiapine 50 mg XR Tab PO SCH (10:17)
[2016-06-02] MEDS: Multivitamin Therapeutic Tab PO SCH (10:19)
[2016-06-02] MEDS: POLYETHYLENE GLYCOL 3350 17 GM/Dose PACKET PO SCH ×2 (10:19→18:21)
[2016-06-02] MEDS: Enoxaparin 40 mg Syringe SC SCH (10:20)
[2016-06-02] MEDS: Divalproex 250 mg DR (BID formulation) PO SCH ×2 (10:20→18:21)
--- NOTE | 2016-06-02 10:51 | CP.PCM.PN ---
<KayceeHarman - Last Filed: 06/02/16 10:46> Subjective - Date & Time of Evaluation Date of Evaluation: 06/02/16 Time of Evaluation: 08:30 - Subjective Subjective: PGY-1 Medicine Progress Note for Dr. Pritchett Patient seen and examined at bedside. No acute event overnight. Patient lying in bed in mild distress and crying. Patient is complaining of upper abdominal pain. She stated she is constipated. Patient was encouraged to drink Mag Citrate but was refusing due to "bad taste." Patient has not had BM in a couple days. She is also complaining of generalized pain still. Denied fever/chills, cp , sob, palpitations, abd pain, n/v/d. Objective - Vital Signs/Intake and Output Vital Signs (last 24 hours): Temp Pulse Resp BP Pulse Ox 98.3 F 83 18 127/81 94 L 06/02/16 09:36 06/02/16 09:36 06/02/16 09:36 06/02/16 09:36 06/02/16 09:36 Intake and Output: 06/02/16 06/02/16 06:59 18:59 Intake Total 120 Output Total 900 Balance -780 - Medications Medications: Current Medications Albuterol/Ipratropium (Duoneb 3 Mg/0.5 Mg (3 Ml) Ud) 3 ml IH [id number] [facility] Last Admin: 06/02/16 08:55 Dose: 3 ml Diphenhydramine HCl (Benadryl) 25 mg IVP Q6 PRN PRN Reason: Itching / Pruritus Last Admin: 06/02/16 10:20 Dose: 25 mg Divalproex Sodium (Depakote Dr (*Bid*)) 250 mg PO BID [facility] PRN Reason: Protocol Last Admin: 06/02/16 10:20 Dose: 250 mg Docusate Sodium (Colace) 100 mg PO TID [facility] Last Admin: 06/02/16 10:19 Dose: 100 mg Enoxaparin Sodium (Lovenox) 40 mg SC DAILY [facility] PRN Reason: Protocol Last Admin: 06/02/16 10:20 Dose: 40 mg Famotidine (Pepcid) 20 mg PO DAILY [facility] Last Admin: 06/02/16 10:18 Dose: 20 mg Folic Acid (Folic Acid) 1 mg PO DAILY [facility] Last Admin: 06/02/16 10:19 Dose: 1 mg Hydromorphone HCl (Dilaudid) 0.5 mg IVP Q4H PRN PRN Reason: Pain, moderate (4-7) Last Admin: 06/02/16 10:21 Dose: 0.5 mg Hydroxyurea (Hydrea) 500 mg PO BID [facility] Last Admin: 06/02/16 10:23 Dose: 500 mg Levofloxacin/Dextrose (Levaquin 500mg) 100 mls @ 100 mls/hr IVPB DAILY [facility] Last Admin: 06/02/16 10:20 Dose: 100 mls/hr Sodium Chloride (Sodium Chloride 0.9%) 1,000 mls @ 125 mls/hr IV .Q8H [facility] Last Admin: 06/02/16 04:02 Dose: Not Given Multi-Ingredient Cream (Hydrocerin Cream) 0 ea TOP DAILY [facility] Last Admin: 06/01/16 13:10 Dose: 1 applic Multivitamins (Thera Tab) 1 tab PO DAILY [facility] Last Admin: 06/02/16 10:19 Dose: 1 tab Polyethylene Glycol (Miralax) 17 gm PO BID [facility] Last Admin: 06/02/16 10:19 Dose: 17 gm Quetiapine Fumarate (Seroquel Xr) 100 mg PO DAILY [facility] PRN Reason: Protocol Last Admin: 06/02/16 10:17 Dose: 100 mg Trazodone HCl (Desyrel) 50 mg PO HS PRN PRN Reason: Pain, moderate (4-7) Last Admin: 06/01/16 21:44 Dose: 50 mg - Labs Labs: 06/02/16 05:30 06/02/16 05:30 - Constitutional Appears: In Acute Distress (crying ) - Head Exam Head Exam: ATRAUMATIC, NORMOCEPHALIC - Eye Exam Eye Exam: EOMI, Normal appearance Pupil Exam: PERRL - ENT Exam ENT Exam: Mucous Membranes Moist - Neck Exam Neck Exam: Normal Inspection - Respiratory Exam Respiratory Exam: Clear to Ausculation Bilateral, NORMAL BREATHING PATTERN - Cardiovascular Exam Cardiovascular Exam: RRR, +S1, +S2 - GI/Abdominal Exam GI & Abdominal Exam: Distended (mild), Soft, Tenderness (upper abdomen), Normal Bowel Sounds. absent: Guarding, Rebound - Extremities Exam Extremities Exam: Normal Capillary Refill. absent: Calf Tenderness - Back Exam Back Exam: absent: CVA tenderness (L), CVA tenderness (R) - Neurological Exam Neurological Exam: Alert, Awake, CN II-XII Intact, Oriented x3 - Psychiatric Exam Psychiatric exam: Anxious - Skin Skin Exam: Dry, Intact, Normal Color, Warm Assessment and Plan - Assessment and Plan (Free Text) Plan: 35 year old female who is well known to this hospital with PMH including cerebral palsy, sickle cell anemia, HTN, bipolar disorder and asthma, admitted for sickle cell crisis. 1. Sickle Cell Crisis Continue to monitor Hgb (8.0 today) Retic count downtrending 11.16 NS @ 125 ml/hr Dilaudid 0.5 mg Q4H PRN for pain Multivitamin 1 tab PO daily Folic Acid 1 mg PO daily Hydroxyurea 500 mg PO BID Heme/Onc consult, Dr. Palacios, help appreciated (hydration, folate, avoid transfusion therapy as much as possible d/t liver transaminitis, outpatient chelation therapy) Aspiration and fall precautions Regular diet--encourage fluid intake 2. Bilateral pulmonary opacities pneumonia vs atelectasis vs acute chest syndrome CXR on 05/27: Bibasilar patchy infiltrates--atelectasis vs pneumonia CXR P&A on 05/29: improving pneumonic infiltrates vs mild venous congestion, possible small effusion transfused 1 unit PRBC this admission Levaquin 500 mg IVPB daily Duonebs 3 mL IH Q6H Incentive spirometer Respiratory therapy consult, help appreciated 3. Bipolar Disorder Depakote 250 mg PO BID Trazodone 50 mg PO HS PRN Seroquel 100 mg PO daily 4. Constipation Colace 100 PO TID Mirlax 17gm PO BID Mag Citrate 300 mL PO ONCE 5. Prophylactic measures Pepcid 20 mg PO daily Lovenox 40 mg SC daily Hydrocerin cream PRN <Jemma Pritchett - Last Filed: 06/02/16 14:55> Objective - Vital Signs/Intake and Output Vital Signs (last 24 hours): Temp Pulse Resp BP Pulse Ox 98.3 F 83 18 127/81 94 L 06/02/16 09:36 06/02/16 09:36 06/02/16 09:36 06/02/16 09:36 06/02/16 09:36 Intake and Output: 06/02/16 06/02/16 06:59 18:59 Intake Total 120 Output Total 900 Balance -780 - Medications Medications: Current Medications Albuterol/Ipratropium (Duoneb 3 Mg/0.5 Mg (3 Ml) Ud) 3 ml IH [id number] [facility] Last Admin: 06/02/16 14:05 Dose: 3 ml Diphenhydramine HCl (Benadryl) 25 mg IVP Q6 PRN PRN Reason: Itching / Pruritus Last Admin: 06/02/16 10:20 Dose: 25 mg Divalproex Sodium (Depakote Dr (*Bid*)) 250 mg PO BID [facility] PRN Reason: Protocol Last Admin: 06/02/16 10:20 Dose: 250 mg Docusate Sodium (Colace) 100 mg PO TID [facility] Last Admin: 06/02/16 14:15 Dose: 100 mg Enoxaparin Sodium (Lovenox) 40 mg SC DAILY [facility] PRN Reason: Protocol Last Admin: 06/02/16 10:20 Dose: 40 mg Famotidine (Pepcid) 20 mg PO DAILY [facility] Last Admin: 06/02/16 10:18 Dose: 20 mg Folic Acid (Folic Acid) 1 mg PO DAILY [facility] Last Admin: 06/02/16 10:19 Dose: 1 mg Hydromorphone HCl (Dilaudid) 0.5 mg IVP Q4H PRN PRN Reason: Pain, moderate (4-7) Last Admin: 06/02/16 14:15 Dose: 0.5 mg Hydroxyurea (Hydrea) 500 mg PO BID [facility] Last Admin: 06/02/16 10:23 Dose: 500 mg Levofloxacin/Dextrose (Levaquin 500mg) 100 mls @ 100 mls/hr IVPB DAILY [facility] Last Admin: 06/02/16 10:20 Dose: 100 mls/hr Sodium Chloride (Sodium Chloride 0.9%) 1,000 mls @ 125 mls/hr IV .Q8H [facility] Last Admin: 06/02/16 11:19 Dose: 125 mls/hr Multi-Ingredient Cream (Hydrocerin Cream) 0 ea TOP DAILY [facility] Last Admin: 06/02/16 11:19 Dose: 1 applic Multivitamins (Thera Tab) 1 tab PO DAILY [facility] Last Admin: 06/02/16 10:19 Dose: 1 tab Polyethylene Glycol (Miralax) 17 gm PO BID [facility] Last Admin: 06/02/16 10:19 Dose: 17 gm Quetiapine Fumarate (Seroquel Xr) 100 mg PO DAILY [facility] PRN Reason: Protocol Last Admin: 06/02/16 10:17 Dose: 100 mg Trazodone HCl (Desyrel) 50 mg PO HS PRN PRN Reason: Pain, moderate (4-7) Last Admin: 06/01/16 21:44 Dose: 50 mg - Labs Labs: 06/02/16 05:30 06/02/16 05:30 Assessment and Plan - Assessment and Plan (Free Text) Assessment: Attending note: patient seen and examined with resident. This is a 35 year old female with history of sickle cell anemia, cerebral palsy , bipolar disorder who got admitted for evaluation of vaso-occlusive crises. continue oxygen, IV fluids, IV Dilaudid. improving slowly. patient got 1 unit of PRBC transfusion. HB is 8. retic count is 11 . Continue hydrea and folic acid. Hematology evaluation appreciated. leukocytosis resolved. chest x-ray showed possible infiltrate vs atelectasis. repeat cxr showed improving infiltrate with possible congestion. Patient is afebrile and nontoxic. procalcitonin level is low. on levofloxacin. constipation; patient one bowel movement yesterday. continue Colace, MiraLAX and magnesium citrate one dose. Chelation as an outpatient for iron overload is recommended. possible discharge home tomorrow. Upon discharge patient will follow up with hematology and was PMD . Attending/Attestation - Attestation I have personally seen and examined this patient.: Yes I have fully participated in the care of the patient.: Yes I have reviewed all pertinent clinical information, including history, physical exam and plan: Yes
[2016-06-02] MEDS: Hydrocerin(120 gm) TOP SCH (11:19)
[2016-06-02 18:20] VITALS: RESP 20
[2016-06-03] MEDS: Albuterol-Ipratrop 3 mg / 0.5 (3 ml) UD IH SCH ×4 (01:42→20:29)
[2016-06-03] MEDS: DiphenhydrAMINE 50 mg/ml Inj IVP PRN ×3 (03:18→19:42)
[2016-06-03] MEDS: HYDROmorphone 0.5 mg/0.5 ml ISec IVP PRN ×6 (03:19→23:46)
[2016-06-03 04:09] LABS: ALB/GLOB RATIO 0.8 (1.1-1.8); ALKALINE PHOSPHATASE 110 U/L (38-133); ALT/SGPT 65 U/L (7-56); AST/SGOT 87 U/L (15-39); BILIRUBIN,TOTAL 2.5 mg/dL (0.2-1.3); BLOOD UREA NITROGEN 3 mg/dL (7-21); CALCIUM 8.3 mg/dL (8.4-10.5); CARBON DIOXIDE 30 mmol/L (21-33); CHLORIDE 104 mmol/L (98-107); GFR AFRICAN-AMERICAN > 60; GLUCOSE,RANDOM 84 mg/dL (70-110); POTASSIUM 3.7 mmol/L (3.6-5.0); SODIUM 140 mmol/L (132-148); TOTAL PROTEIN 6.8 g/dL (5.8-8.3)
[2016-06-03 05:05] LABS: BASO # 0.04 K/mm3 (0.0-2.0); BASO % 0.6 % (0.0-3.0); EOS # 0.2 (0.0-0.7); EOS % 2.9 % (1.5-5.0); GRAN # 3.14 (1.4-6.5); GRAN % 47.7 % (50.0-68.0); LYMPH # 2.7 (1.2-3.4); LYMPH % 40.4 % (22.0-35.0); MEAN CELL VOLUME 104.9 fL (80.0-105.0); MEAN CORPUSCULAR HEMOGLOBIN 37.6 pg (25.0-35.0); MEAN CORPUSCULAR HGB CONC 35.8 g/dl (31.0-37.0); MEAN PLATELET VOLUME 10.5 fl (7.0-11.0); MONO # 0.6 (0.1-0.6); MONO % 8.4 % (1.0-6.0); PLATELET COUNT 82 10^3/uL (120.0-450.0); WHITE BLOOD COUNT 6.6 10^3/ul (4.5-11.0)
[2016-06-03 05:12] LABS: HEMATOCRIT 21.5 % (36.0-48.0)
[2016-06-03 05:13] LABS: RETIC% 9.78 % (0.5-1.5)
[2016-06-03 05:14] LABS: ADD MANUAL DIFF? NO
[2016-06-03] MEDS: Sodium Chloride 0.9% 1,000 ML IV SCH ×3 (06:12→17:14)
[2016-06-03] MEDS: POLYETHYLENE GLYCOL 3350 17 GM/Dose PACKET PO SCH ×2 (10:05→17:14)
[2016-06-03] MEDS: Multivitamin Therapeutic Tab PO SCH (10:05)
[2016-06-03] MEDS: QUEtiapine 50 mg XR Tab PO SCH (10:05)
[2016-06-03] MEDS: Divalproex 250 mg DR (BID formulation) PO SCH ×2 (10:06→17:14)
[2016-06-03] MEDS: Enoxaparin 40 mg Syringe SC SCH (10:06)
[2016-06-03] MEDS: Hydrocerin(120 gm) TOP SCH (10:08)
--- NOTE | 2016-06-03 14:17 | CP.PCM.PN ---
<Elisha Mace - Last Filed: 06/03/16 16:41> Subjective - Date & Time of Evaluation Date of Evaluation: 06/03/16 Time of Evaluation: 14:13 - Subjective Subjective: HOSPITALIST PROGRESS NOTE Pt seen and examined at bedside. No acute events overnight. Pt is c/o of chronic Cp and abd pain. Pt also has cough present but denies having any SOB. Pt is tolerating diet and denies having any N/V/D/C. Objective - Vital Signs/Intake and Output Vital Signs (last 24 hours): Temp Pulse Resp BP Pulse Ox 98 F 84 20 134/93 H 100 06/03/16 07:45 06/03/16 07:45 06/03/16 07:45 06/03/16 07:45 06/03/16 07:45 Intake and Output: 06/03/16 06/03/16 06:59 18:59 Intake Total 360 Output Total 2000 Balance -1640 - Medications Medications: Current Medications Albuterol/Ipratropium (Duoneb 3 Mg/0.5 Mg (3 Ml) Ud) 3 ml IH [id number] [facility] Last Admin: 06/03/16 13:55 Dose: Not Given Diphenhydramine HCl (Benadryl) 25 mg IVP Q6 PRN PRN Reason: Itching / Pruritus Last Admin: 06/03/16 10:06 Dose: 25 mg Divalproex Sodium (Depakote Dr (*Bid*)) 250 mg PO BID [facility] PRN Reason: Protocol Last Admin: 06/03/16 10:06 Dose: 250 mg Docusate Sodium (Colace) 100 mg PO TID [facility] Last Admin: 06/03/16 13:39 Dose: 100 mg Enoxaparin Sodium (Lovenox) 40 mg SC DAILY [facility] PRN Reason: Protocol Last Admin: 06/03/16 10:06 Dose: 40 mg Famotidine (Pepcid) 20 mg PO DAILY [facility] Last Admin: 06/03/16 10:05 Dose: 20 mg Folic Acid (Folic Acid) 1 mg PO DAILY [facility] Last Admin: 06/03/16 10:05 Dose: 1 mg Hydromorphone HCl (Dilaudid) 0.5 mg IVP Q4H PRN PRN Reason: Pain, moderate (4-7) Last Admin: 06/03/16 10:12 Dose: 0.5 mg Hydroxyurea (Hydrea) 500 mg PO BID [facility] Last Admin: 06/03/16 10:08 Dose: 500 mg Levofloxacin/Dextrose (Levaquin 500mg) 100 mls @ 100 mls/hr IVPB DAILY [facility] Last Admin: 06/03/16 10:05 Dose: 100 mls/hr Sodium Chloride (Sodium Chloride 0.9%) 1,000 mls @ 125 mls/hr IV .Q8H [facility] Last Admin: 06/03/16 10:08 Dose: 125 mls/hr Multi-Ingredient Cream (Hydrocerin Cream) 0 ea TOP DAILY [facility] Last Admin: 06/03/16 10:08 Dose: 1 applic Multivitamins (Thera Tab) 1 tab PO DAILY [facility] Last Admin: 06/03/16 10:05 Dose: 1 tab Polyethylene Glycol (Miralax) 17 gm PO BID [facility] Last Admin: 06/03/16 10:05 Dose: 17 gm Quetiapine Fumarate (Seroquel Xr) 100 mg PO DAILY [facility] PRN Reason: Protocol Last Admin: 06/03/16 10:05 Dose: 100 mg Trazodone HCl (Desyrel) 50 mg PO HS PRN PRN Reason: Pain, moderate (4-7) Last Admin: 06/01/16 21:44 Dose: 50 mg - Labs Labs: 06/03/16 03:30 06/03/16 03:30 - Constitutional Appears: Non-toxic, No Acute Distress - Head Exam Head Exam: ATRAUMATIC - ENT Exam ENT Exam: Mucous Membranes Moist - Respiratory Exam Respiratory Exam: Clear to Ausculation Bilateral. absent: Accessory Muscle Use , Rales, Rhonchi, Wheezes - Cardiovascular Exam Cardiovascular Exam: REGULAR RHYTHM, +S1, +S2. absent: Gallop, Rubs, Murmur - GI/Abdominal Exam GI & Abdominal Exam: Soft. absent: Distended, Firm, Guarding, Rigid, Tenderness - Extremities Exam Extremities Exam: absent: Pedal Edema - Neurological Exam Neurological Exam: Alert, Awake, Oriented x3 - Psychiatric Exam Psychiatric exam: Normal Affect, Normal Mood - Skin Skin Exam: Dry, Intact, Normal Color, Warm Assessment and Plan - Assessment and Plan (Free Text) Assessment: 35 year old female who is well known to this hospital with PMH including cerebral palsy, sickle cell anemia, HTN, bipolar disorder and asthma, admitted for sickle cell crisis. 1. Sickle Cell Crisis Continue to monitor Hgb (7.7 today) Retic count downtrending 9.78 NS @ 125 ml/hr Dilaudid 0.5 mg Q4H PRN for pain Multivitamin 1 tab PO daily Folic Acid 1 mg PO daily Hydroxyurea 500 mg PO BID Heme/Onc consult, Dr. Palacios, help appreciated (hydration, folate, avoid transfusion therapy as much as possible d/t liver transaminitis, outpatient chelation therapy) Aspiration and fall precautions Regular diet--encourage fluid intake 2. Bilateral pulmonary opacities pneumonia vs atelectasis vs acute chest syndrome Procal is low Will repeat CXR today CXR on 05/27: Bibasilar patchy infiltrates--atelectasis vs pneumonia CXR P&A on 05/29: improving pneumonic infiltrates vs mild venous congestion, possible small effusion transfused 1 unit PRBC this admission Levaquin 500 mg IVPB daily Duonebs 3 mL IH Q6H Incentive spirometer Respiratory therapy consult, help appreciated 3. Bipolar Disorder Depakote 250 mg PO BID Trazodone 50 mg PO HS PRN Seroquel 100 mg PO daily 4. Constipation Colace 100 PO TID Mirlax 17gm PO BID Mag Citrate 300 mL PO ONCE 5. Prophylactic measures Pepcid 20 mg PO daily Lovenox 40 mg SC daily Hydrocerin cream PRN Case discussed with attending Dr. Lyndsey Noble <Lyndsey Noble - Last Filed: 06/03/16 17:08> Objective - Vital Signs/Intake and Output Vital Signs (last 24 hours): Temp Pulse Resp BP Pulse Ox 98 F 84 20 134/93 H 100 06/03/16 07:45 06/03/16 07:45 06/03/16 07:45 06/03/16 07:45 06/03/16 07:45 Intake and Output: 06/03/16 06/03/16 06:59 18:59 Intake Total 360 Output Total 2000 Balance -1640 - Medications Medications: Current Medications Albuterol/Ipratropium (Duoneb 3 Mg/0.5 Mg (3 Ml) Ud) 3 ml IH [id number] [facility] Last Admin: 06/03/16 13:55 Dose: Not Given Diphenhydramine HCl (Benadryl) 25 mg IVP Q6 PRN PRN Reason: Itching / Pruritus Last Admin: 06/03/16 10:06 Dose: 25 mg Divalproex Sodium (Depakote Dr (*Bid*)) 250 mg PO BID [facility] PRN Reason: Protocol Last Admin: 06/03/16 10:06 Dose: 250 mg Docusate Sodium (Colace) 100 mg PO TID [facility] Last Admin: 06/03/16 13:39 Dose: 100 mg Enoxaparin Sodium (Lovenox) 40 mg SC DAILY [facility] PRN Reason: Protocol Last Admin: 06/03/16 10:06 Dose: 40 mg Famotidine (Pepcid) 20 mg PO DAILY [facility] Last Admin: 06/03/16 10:05 Dose: 20 mg Folic Acid (Folic Acid) 1 mg PO DAILY [facility] Last Admin: 06/03/16 10:05 Dose: 1 mg Hydromorphone HCl (Dilaudid) 0.5 mg IVP Q4H PRN PRN Reason: Pain, moderate (4-7) Last Admin: 06/03/16 15:39 Dose: 0.5 mg Hydroxyurea (Hydrea) 500 mg PO BID [facility] Last Admin: 06/03/16 10:08 Dose: 500 mg Levofloxacin/Dextrose (Levaquin 500mg) 100 mls @ 100 mls/hr IVPB DAILY [facility] Last Admin: 06/03/16 10:05 Dose: 100 mls/hr Sodium Chloride (Sodium Chloride 0.9%) 1,000 mls @ 125 mls/hr IV .Q8H [facility] Last Admin: 06/03/16 10:08 Dose: 125 mls/hr Multi-Ingredient Cream (Hydrocerin Cream) 0 ea TOP DAILY [facility] Last Admin: 06/03/16 10:08 Dose: 1 applic Multivitamins (Thera Tab) 1 tab PO DAILY [facility] Last Admin: 06/03/16 10:05 Dose: 1 tab Polyethylene Glycol (Miralax) 17 gm PO BID [facility] Last Admin: 06/03/16 10:05 Dose: 17 gm Quetiapine Fumarate (Seroquel Xr) 100 mg PO DAILY [facility] PRN Reason: Protocol Last Admin: 06/03/16 10:05 Dose: 100 mg Trazodone HCl (Desyrel) 50 mg PO HS PRN PRN Reason: Pain, moderate (4-7) Last Admin: 06/01/16 21:44 Dose: 50 mg - Labs Labs: 06/03/16 03:30 06/03/16 03:30 Attending/Attestation - Attestation I have personally seen and examined this patient.: Yes I have fully participated in the care of the patient.: Yes I have reviewed all pertinent clinical information, including history, physical exam and plan: Yes Notes (Text): I have seen and examined patient at bedside with the resident. Agree with the above note. Briefly, this is a 35 year old female with history of sickle cell anemia, cerebral palsy, bipolar disorder who got admitted for evaluation of vaso -occlusive crises. Still complaining of abdominal and chest pain. Continue oxygen, IV fluids, IV Dilaudid. She was given 1 unit of PRBC transfusion during this hospitalization. Hb is stable. Retic is 9 today. Continue hydrea and folic acid. Hematology evaluation appreciated. CXR showed improving infiltrate with possible congestion. Procalcitonin level is low. She has been on levofloxacin. She has one BM yesterday. Continue colace and miralax. Chelation as an outpatient for iron overload is recommended. Possible discharge home tomorrow. Upon discharge patient will follow up with hematology and was PMD . Dr Lyndsey Noble
--- NOTE | 2016-06-03 14:59 | RAD ---
HISTORY: cough COMPARISON: 05/29/2016 FINDINGS: LUNGS: No active pulmonary disease. PLEURA: No significant pleural effusion identified, no pneumothorax apparent. CARDIOVASCULAR: Mild to moderate cardiomegaly and mild vascular congestion OSSEOUS STRUCTURES: No significant abnormalities. VISUALIZED UPPER ABDOMEN: Normal. OTHER FINDINGS: None. IMPRESSION: Mild to moderate cardiomegaly and mild vascular congestion
--- NOTE | 2016-06-03 21:05 | CP.PCM.PN ---
Subjective - Date & Time of Evaluation Date of Evaluation: 06/03/16 Time of Evaluation: 18:00 - Subjective Subjective: Has pain. Objective - Vital Signs/Intake and Output Vital Signs (last 24 hours): Temp Pulse Resp BP Pulse Ox 98.4 F 89 20 123/87 96 06/03/16 16:00 06/03/16 16:00 06/03/16 16:00 06/03/16 16:00 06/03/16 16:00 - Medications Medications: Current Medications Albuterol/Ipratropium (Duoneb 3 Mg/0.5 Mg (3 Ml) Ud) 3 ml IH [id number] [facility] Last Admin: 06/03/16 20:29 Dose: 3 ml Diphenhydramine HCl (Benadryl) 25 mg IVP Q6 PRN PRN Reason: Itching / Pruritus Last Admin: 06/03/16 19:42 Dose: 25 mg Divalproex Sodium (Depakote Dr (*Bid*)) 250 mg PO BID [facility] PRN Reason: Protocol Last Admin: 06/03/16 17:14 Dose: 250 mg Docusate Sodium (Colace) 100 mg PO TID [facility] Last Admin: 06/03/16 17:14 Dose: 100 mg Enoxaparin Sodium (Lovenox) 40 mg SC DAILY [facility] PRN Reason: Protocol Last Admin: 06/03/16 10:06 Dose: 40 mg Famotidine (Pepcid) 20 mg PO DAILY [facility] Last Admin: 06/03/16 10:05 Dose: 20 mg Folic Acid (Folic Acid) 1 mg PO DAILY [facility] Last Admin: 06/03/16 10:05 Dose: 1 mg Hydromorphone HCl (Dilaudid) 0.5 mg IVP Q4H PRN PRN Reason: Pain, moderate (4-7) Last Admin: 06/03/16 19:42 Dose: 0.5 mg Hydroxyurea (Hydrea) 500 mg PO BID [facility] Last Admin: 06/03/16 17:50 Dose: 500 mg Levofloxacin/Dextrose (Levaquin 500mg) 100 mls @ 100 mls/hr IVPB DAILY [facility] Last Admin: 06/03/16 10:05 Dose: 100 mls/hr Sodium Chloride (Sodium Chloride 0.9%) 1,000 mls @ 125 mls/hr IV .Q8H [facility] Last Admin: 06/03/16 17:14 Dose: 125 mls/hr Multi-Ingredient Cream (Hydrocerin Cream) 0 ea TOP DAILY [facility] Last Admin: 06/03/16 10:08 Dose: 1 applic Multivitamins (Thera Tab) 1 tab PO DAILY [facility] Last Admin: 06/03/16 10:05 Dose: 1 tab Polyethylene Glycol (Miralax) 17 gm PO BID [facility] Last Admin: 06/03/16 17:14 Dose: 17 gm Quetiapine Fumarate (Seroquel Xr) 100 mg PO DAILY [facility] PRN Reason: Protocol Last Admin: 06/03/16 10:05 Dose: 100 mg Trazodone HCl (Desyrel) 50 mg PO PRN PRN Reason: Pain, moderate (4-7) Last Admin: 06/01/16 21:44 Dose: 50 mg - Labs Labs: 06/03/16 03:30 06/03/16 03:30 - Head Exam Head Exam: ATRAUMATIC - Eye Exam Eye Exam: Scleral icterus - ENT Exam ENT Exam: Mucous Membranes Dry - Respiratory Exam Respiratory Exam: NORMAL BREATHING PATTERN - Cardiovascular Exam Cardiovascular Exam: +S1, +S2 - GI/Abdominal Exam GI & Abdominal Exam: Normal Bowel Sounds Assessment and Plan (1) Sickle cell pain crisis Assessment & Plan: IV fluids, pain meds, folic acid, 02 via NC s/p PRBC transfusion Status: Acute (2) Iron overload due to repeated red blood cell transfusions Assessment & Plan: outpatient chelation Status: Chronic (3) Thrombocytopenia Assessment & Plan: secondary to hydrea Status: Acute (4) Sickle cell anemia Assessment & Plan: folic acid and hydrea Status: Chronic
[2016-06-04] MEDS: Sodium Chloride 0.9% 1,000 ML IV SCH (01:24)
[2016-06-04] MEDS: HYDROmorphone 0.5 mg/0.5 ml ISec IVP PRN ×3 (03:44→12:41)
[2016-06-04 06:22] LABS: MEAN CELL VOLUME 104.3 fL (80.0-105.0); MEAN CORPUSCULAR HEMOGLOBIN 36.5 pg (25.0-35.0); MEAN PLATELET VOLUME 10.1 fl (7.0-11.0); PLATELET COUNT 96 10^3/uL (120.0-450.0); RED CELL DISTRIBUTION WIDTH 28.3 % (11.5-14.5); WHITE BLOOD COUNT 7.5 10^3/ul (4.5-11.0)
[2016-06-04 06:33] LABS: ALB/GLOB RATIO 0.7 (1.1-1.8); ALKALINE PHOSPHATASE 107 U/L (38-133); ALT/SGPT 67 U/L (7-56); AST/SGOT 91 U/L (15-39); BILIRUBIN,TOTAL 2.5 mg/dL (0.2-1.3); BLOOD UREA NITROGEN 3 mg/dL (7-21); CALCIUM 8.1 mg/dL (8.4-10.5); CARBON DIOXIDE 30 mmol/L (21-33); CHLORIDE 104 mmol/L (98-107); GFR AFRICAN-AMERICAN > 60; GLUCOSE,RANDOM 89 mg/dL (70-110); POTASSIUM 3.9 mmol/L (3.6-5.0); SODIUM 141 mmol/L (132-148); TOTAL PROTEIN 6.9 g/dL (5.8-8.3)
[2016-06-04 06:41] LABS: HEMATOCRIT 21.7 % (36.0-48.0)
[2016-06-04 06:42] LABS: ADD MANUAL DIFF? YES
[2016-06-04 07:00] LABS: BAND 1 % (0-2); BASOPHIL 1 % (0.0-1.0); CORRECTED WBC 6.9 K/mm3 (4.5-11.0); EOSINOPHIL 2 % (0.0-3.0); HYPOCHROMIA 2+; NEUTROPHIL 41 % (50.0-70.0); NUCLEATED RED BLOOD CELL 9 %; PLATELET ESTIMATE LOW (NORMAL); POLYCHROMASIA 1+; TARGET CELLS 3+
[2016-06-04] MEDS: DiphenhydrAMINE 50 mg/ml Inj IVP PRN (07:52)
[2016-06-04 08:12] LABS: RETIC% 12.13 % (0.5-1.5)
[2016-06-04] MEDS: Albuterol-Ipratrop 3 mg / 0.5 (3 ml) UD IH SCH ×2 (08:15→13:27)
[2016-06-04] MEDS: Hydrocerin(120 gm) TOP SCH (10:18)
[2016-06-04] MEDS: POLYETHYLENE GLYCOL 3350 17 GM/Dose PACKET PO SCH (10:18)
[2016-06-04] MEDS: Multivitamin Therapeutic Tab PO SCH (10:18)
[2016-06-04] MEDS: QUEtiapine 50 mg XR Tab PO SCH (10:18)
[2016-06-04] MEDS: Enoxaparin 40 mg Syringe SC SCH (10:18)
[2016-06-04] MEDS: Divalproex 250 mg DR (BID formulation) PO SCH (10:19)
--- NOTE | 2016-06-04 16:15 | CP.PCM.DIS ---
<Elisha Mace - Last Filed: 06/04/16 16:06> Provider - Provider Date of Admission: 05/27/16 17:28 Attending physician: Lyndsey Noble MD Primary care physician: Charissa Gill MD Consults: Heme/onc: Dr. Palacios Time Spent in preparation of Discharge (in minutes): 45 Diagnosis - Discharge Diagnosis (1) Sickle cell pain crisis Status: Acute (2) Thrombocytopenia Status: Chronic (3) Abdominal pain Status: Chronic (4) Cerebral palsy Status: Chronic Hospital Course - Lab Results Lab Results: Most Recent Lab Values WBC 7.5 10^3/ul (4.5-11.0) 06/04/16 05:45 RBC 2.08 10^6/uL (3.5-6.1) L 06/04/16 05:45 Hgb 7.6 gm/dL (12.0-16.0) L 06/04/16 05:45 Hct 21.7 % (36.0-48.0) L 06/04/16 05:45 MCV 104.3 fL (80.0-105.0) 06/04/16 05:45 MCH 36.5 pg (25.0-35.0) H 06/04/16 05:45 MCHC 35.0 g/dl (31.0-37.0) 06/04/16 05:45 RDW 28.3 % (11.5-14.5) H 06/04/16 05:45 Plt Count 96 10^3/uL (120.0-450.0) L 06/04/16 05:45 MPV 10.1 fl (7.0-11.0) 06/04/16 05:45 Gran % 47.7 % (50.0-68.0) L 06/03/16 03:30 Lymph % (Auto) 40.4 % (22.0-35.0) H 06/03/16 03:30 [place] % (Auto) 8.4 % (1.0-6.0) H 06/03/16 03:30 Eos % (Auto) 2.9 % (1.5-5.0) 06/03/16 03:30 Baso % (Auto) 0.6 % (0.0-3.0) 06/03/16 03:30 Gran # 3.14 (1.4-6.5) 06/03/16 03:30 Lymph # 2.7 (1.2-3.4) 06/03/16 03:30 [place] # 0.6 (0.1-0.6) 06/03/16 03:30 Eos # 0.2 (0.0-0.7) 06/03/16 03:30 Baso # 0.04 K/mm3 (0.0-2.0) 06/03/16 03:30 Corrected WBC (Man) 6.9 K/mm3 (4.5-11.0) 06/04/16 05:45 Neutrophils % (Manual) 41 % (50.0-70.0) L 06/04/16 05:45 Band Neutrophils % 1 % (0-2) 06/04/16 05:45 Lymphocytes % (Manual) 49 % (22.0-35.0) H 06/04/16 05:45 Atypical Lymphs % 2 % (0.0-0.0) H 05/30/16 06:30 Monocytes % (Manual) 6 % (1.0-6.0) 06/04/16 05:45 Eosinophils % (Manual) 2 % (0.0-3.0) 06/04/16 05:45 Basophils % (Manual) 1 % (0.0-1.0) 06/04/16 05:45 Myelocytes % 3 % 05/29/16 10:20 Nucleated RBC % 9 % 06/04/16 05:45 Platelet Evaluation Low (NORMAL) 06/04/16 05:45 Polychromasia 1+ 06/04/16 05:45 Hypochromasia 2+ 06/04/16 05:45 Poikilocytosis (manual 2+ 05/30/16 06:30 Anisocytosis (manual) 2+ 05/30/16 06:30 Microcytosis (manual) 2+ 05/27/16 16:00 Macrocytosis (manual) 1+ 05/30/16 06:30 Spherocytes Slight 05/27/16 16:00 Sickle Cells 2+ 06/04/16 05:45 Target Cells 3+ 06/04/16 05:45 Tear Drop Cells Slight 05/30/16 06:30 Ovalocytes 1+ 05/30/16 06:30 Stomatocytes Slight 05/28/16 06:00 Acanthocytes (Spur) Slight 05/30/16 06:30 Rouleaux Slight 05/30/16 06:30 Retic Count 12.13 % (0.5-1.5) H* 06/04/16 06:30 Sodium 141 mmol/L (132-148) 06/04/16 05:45 Potassium 3.9 mmol/L (3.6-5.0) 06/04/16 05:45 Chloride 104 mmol/L (98-107) 06/04/16 05:45 Carbon Dioxide 30 mmol/L (21-33) 06/04/16 05:45 Anion Gap 11 (10-20) 06/04/16 05:45 BUN 3 mg/dL (7-21) L 06/04/16 05:45 Creatinine 0.4 mg/dL (0.5-1.4) L 06/04/16 05:45 Est GFR ( Amer) > 60 06/04/16 05:45 Est GFR (Non-Af Amer) > 60 06/04/16 05:45 Random Glucose 89 mg/dL (70-110) 06/04/16 05:45 Calcium 8.1 mg/dL (8.4-10.5) L 06/04/16 05:45 Total Bilirubin 2.5 mg/dL (0.2-1.3) H 06/04/16 05:45 AST 91 U/L (15-39) H 06/04/16 05:45 ALT 67 U/L (7-56) H 06/04/16 05:45 Alkaline Phosphatase 107 U/L (38-133) 06/04/16 05:45 Total Protein 6.9 g/dL (5.8-8.3) 06/04/16 05:45 Albumin 2.9 g/dL (3.0-4.8) L 06/04/16 05:45 Globulin 4.0 gm/dL 06/04/16 05:45 Albumin/Globulin Ratio 0.7 (1.1-1.8) L 06/04/16 05:45 Procalcitonin 0.15 NG/ML (0.19-0.49) L 05/30/16 06:30 Urine Color Yellow (YELLOW) 05/27/16 16:00 Urine Appearance Clear (CLEAR) 05/27/16 16:00 Urine pH 7.5 (4.7-8.0) 05/27/16 16:00 Ur Specific [place] 1.015 (1.005-1.035) 05/27/16 16:00 Urine Protein Negative mg/dL (<30 mg/dL) 05/27/16 16:00 Urine Glucose (UA) Negative mg/dL (NEGATIVE) 05/27/16 16:00 Urine Ketones Negative mg/dL (NEGATIVE) 05/27/16 16:00 Urine Blood Negative (NEGATIVE) 05/27/16 16:00 Urine Nitrate Negative (NEGATIVE) 05/27/16 16:00 Urine Bilirubin Negative (NEGATIVE) 05/27/16 16:00 Urine Urobilinogen 1.0 E.U./dL (<1 E.U./dL) H 05/27/16 16:00 Ur Leukocyte Esterase Negative Luz/uL (NEGATIVE) 05/27/16 16:00 Urine HCG, Qual Negative (NEGATIVE) 05/27/16 16:00 Blood Type B POSITIVE 05/28/16 07:58 Antibody Screen Negative 05/28/16 07:58 Crossmatch See Detail 05/28/16 07:58 BBK History Checked Patient has bt 05/28/16 07:58 - Hospital Course Hospital Course: 35 year old female with PMH for cerebral palsy, sickle cell anemia, HTN, bipolar disorder, and asthma who presented to [facility] [place], [place] with generalized pain for 2 days. Patient was recently admitted three times this month for similar complaint. Patient stated that she was fine for 2 days but then pain came back worse. She rated pain as 10/10 in severity. She described pain as a constant, dull ache that started in the legs with radiation to hips and upper body. She said this pain is similar to previous sickle cell crises. Movement exacerbates pain while nothing alleviates it. Patient denies any trauma. Denied fever/chills , cp, sob, palpitations, abd pain, n/v/d, constipation, incontinence, numbness/ tingling. Patient had CXR on admission which showed bibasilar patchy opacities. EKG on admission showed NSR with nonspecific T wave changes. Patient was given IV fluids and home medication of hydrea and folic acid. Patient was also given pain medication. Patient hemoglobin the day after admission was 6.3 and she was transfused 1 unit of PRBC. Heme/onc was consulted and recommended minimal transfusions for anemia as well as the current medical management. Patient had 2 repeated CXR during hospital stay which showed improvement in the vascular congestion. Reticulocyte count was monitored daily during the stay and it improved daily. Patient's symptoms improved as well. Follow up with Primary physician in 1 week. Follow up with Dr. Palacios in 1 week If you experience any Shortness of breath, chest pain, nausea or vomiting call primary care physician and go to the nearest E.R. Patient is asked to continue the following medications: Trazadone 50 mg PO HS PRN, Tramadol 50 mg PO Q8, Seroquel 100 mg PO QD, Multivitamin 1 tab PO QD, Hydrea 500 mg PO BID, Hydrocerin cream 1 application top daily, Folic acid 1 mg PO QD, Fluticasone propionate 110 mcg PO BID, Depakote 250 mg PO BID, Colace 100 mg PO TID. Patient is given written scripts. Please see MAR for full details. - Date & Time of H&P Date of H&P: 06/04/16 Time of H&P: 16:07 Discharge Exam - Head Exam Head Exam: ATRAUMATIC - Eye Exam Eye Exam: EOMI - ENT Exam ENT Exam: Mucous Membranes Moist - Respiratory Exam Respiratory Exam: Clear to PA & Lateral. absent: Accessory Muscle Use, Rales, Rhonchi, Wheezes, Respiratory Distress - Cardiovascular Exam Cardiovascular Exam: REGULAR RHYTHM. absent: Diastolic murmur, Gallop, Rubs, Systolic Murmur - GI/Abdominal Exam GI & Abdominal Exam: Normal Bowel Sounds, Soft. absent: Distended, Firm, Guarding, Rebound, Tenderness - Neurological Exam Neurological exam: Alert, Oriented x3 - Psychiatric Exam Psychiatric exam: Normal Affect, Normal Mood - Skin Skin Exam: Dry, Intact, Normal Color, Warm Discharge Plan - Discharge Medications Prescriptions: Albuterol/Ipratropium [Duoneb 3 mg/0.5 mg (3 ml) UD] 3 ml IH [id number] #1 neb Fluticasone Propionate 110 mcg PO BID PRN #5 PRN Reason: SOB Tramadol HCl 50 mg PO Q8 PRN #20 PRN Reason: Pain, Mild (1-3) Docusate [Colace] 100 mg PO TID #90 cap Divalproex [Depakote DR (*BID*)] 250 mg PO BID #60 tcp traZODone [Desyrel] 50 mg PO HS PRN #15 tab PRN Reason: Pain, Moderate (4-7) Hydroxyurea [Hydrea] 500 mg PO BID #60 cap Hydrocerin [Hydrocerin Cream] 1 applic TOP DAILY #2 jar Polyethylene Glycol 3350 [Miralax] 17 gm PO BID #30 packet QUEtiapine [Seroquel XR] 100 mg PO DAILY #15 ter Multivitamin Therapeutic Tab [Thera Tab] 1 tab PO DAILY #30 tab - Follow Up Plan Condition: STABLE Disposition: OTHER INSTITUTION Instructions: Constipation (DC), Sickle Cell Crisis (DC) Additional Instructions: Follow up with Primary physician in 1 week. Follow up with Dr. Palacios in 1 week If you experience any Shortness of breath, chest pain, nausea or vomiting call primary care physician and go to the nearest E.R. Patient is asked to continue the following medications: Trazadone 50 mg PO HS PRN, Tramadol 50 mg PO Q8, Seroquel 100 mg PO QD, Multivitamin 1 tab PO QD, Hydrea 500 mg PO BID, Hydrocerin cream 1 application top daily, Folic acid 1 mg PO QD, Fluticasone propionate 110 mcg PO BID, Depakote 250 mg PO BID, Colace 100 mg PO TID. Patient is given written scripts. Referrals: Charissa Gill MD [Primary Care Provider] - <Lyndsey Noble - Last Filed: 06/04/16 17:28> Provider - Provider Date of Admission: 05/27/16 17:28 Attending physician: Lyndsey Noble MD Primary care physician: Charissa Gill MD Hospital Course - Lab Results Lab Results: Most Recent Lab Values WBC 7.5 10^3/ul (4.5-11.0) 06/04/16 05:45 RBC 2.08 10^6/uL (3.5-6.1) L 06/04/16 05:45 Hgb 7.6 gm/dL (12.0-16.0) L 06/04/16 05:45 Hct 21.7 % (36.0-48.0) L 06/04/16 05:45 MCV 104.3 fL (80.0-105.0) 06/04/16 05:45 MCH 36.5 pg (25.0-35.0) H 06/04/16 05:45 MCHC 35.0 g/dl (31.0-37.0) 06/04/16 05:45 RDW 28.3 % (11.5-14.5) H 06/04/16 05:45 Plt Count 96 10^3/uL (120.0-450.0) L 06/04/16 05:45 MPV 10.1 fl (7.0-11.0) 06/04/16 05:45 Gran % 47.7 % (50.0-68.0) L 06/03/16 03:30 Lymph % (Auto) 40.4 % (22.0-35.0) H 06/03/16 03:30 [place] % (Auto) 8.4 % (1.0-6.0) H 06/03/16 03:30 Eos % (Auto) 2.9 % (1.5-5.0) 06/03/16 03:30 Baso % (Auto) 0.6 % (0.0-3.0) 06/03/16 03:30 Gran # 3.14 (1.4-6.5) 06/03/16 03:30 Lymph # 2.7 (1.2-3.4) 06/03/16 03:30 [place] # 0.6 (0.1-0.6) 06/03/16 03:30 Eos # 0.2 (0.0-0.7) 06/03/16 03:30 Baso # 0.04 K/mm3 (0.0-2.0) 06/03/16 03:30 Corrected WBC (Man) 6.9 K/mm3 (4.5-11.0) 06/04/16 05:45 Neutrophils % (Manual) 41 % (50.0-70.0) L 06/04/16 05:45 Band Neutrophils % 1 % (0-2) 06/04/16 05:45 Lymphocytes % (Manual) 49 % (22.0-35.0) H 06/04/16 05:45 Atypical Lymphs % 2 % (0.0-0.0) H 05/30/16 06:30 Monocytes % (Manual) 6 % (1.0-6.0) 06/04/16 05:45 Eosinophils % (Manual) 2 % (0.0-3.0) 06/04/16 05:45 Basophils % (Manual) 1 % (0.0-1.0) 06/04/16 05:45 Myelocytes % 3 % 05/29/16 10:20 Nucleated RBC % 9 % 06/04/16 05:45 Platelet Evaluation Low (NORMAL) 06/04/16 05:45 Polychromasia 1+ 06/04/16 05:45 Hypochromasia 2+ 06/04/16 05:45 Poikilocytosis (manual 2+ 05/30/16 06:30 Anisocytosis (manual) 2+ 05/30/16 06:30 Microcytosis (manual) 2+ 05/27/16 16:00 Macrocytosis (manual) 1+ 05/30/16 06:30 Spherocytes Slight 05/27/16 16:00 Sickle Cells 2+ 06/04/16 05:45 Target Cells 3+ 06/04/16 05:45 Tear Drop Cells Slight 05/30/16 06:30 Ovalocytes 1+ 05/30/16 06:30 Stomatocytes Slight 05/28/16 06:00 Acanthocytes (Spur) Slight 05/30/16 06:30 Rouleaux Slight 05/30/16 06:30 Retic Count 12.13 % (0.5-1.5) H* 06/04/16 06:30 Sodium 141 mmol/L (132-148) 06/04/16 05:45 Potassium 3.9 mmol/L (3.6-5.0) 06/04/16 05:45 Chloride 104 mmol/L (98-107) 06/04/16 05:45 Carbon Dioxide 30 mmol/L (21-33) 06/04/16 05:45 Anion Gap 11 (10-20) 06/04/16 05:45 BUN 3 mg/dL (7-21) L 06/04/16 05:45 Creatinine 0.4 mg/dL (0.5-1.4) L 06/04/16 05:45 Est GFR ( Amer) > 60 06/04/16 05:45 Est GFR (Non-Af Amer) > 60 06/04/16 05:45 Random Glucose 89 mg/dL (70-110) 06/04/16 05:45 Calcium 8.1 mg/dL (8.4-10.5) L 06/04/16 05:45 Total Bilirubin 2.5 mg/dL (0.2-1.3) H 06/04/16 05:45 AST 91 U/L (15-39) H 06/04/16 05:45 ALT 67 U/L (7-56) H 06/04/16 05:45 Alkaline Phosphatase 107 U/L (38-133) 06/04/16 05:45 Total Protein 6.9 g/dL (5.8-8.3) 06/04/16 05:45 Albumin 2.9 g/dL (3.0-4.8) L 06/04/16 05:45 Globulin 4.0 gm/dL 06/04/16 05:45 Albumin/Globulin Ratio 0.7 (1.1-1.8) L 06/04/16 05:45 Procalcitonin 0.15 NG/ML (0.19-0.49) L 05/30/16 06:30 Urine Color Yellow (YELLOW) 05/27/16 16:00 Urine Appearance Clear (CLEAR) 05/27/16 16:00 Urine pH 7.5 (4.7-8.0) 05/27/16 16:00 Ur Specific [place] 1.015 (1.005-1.035) 05/27/16 16:00 Urine Protein Negative mg/dL (<30 mg/dL) 05/27/16 16:00 Urine Glucose (UA) Negative mg/dL (NEGATIVE) 05/27/16 16:00 Urine Ketones Negative mg/dL (NEGATIVE) 05/27/16 16:00 Urine Blood Negative (NEGATIVE) 05/27/16 16:00 Urine Nitrate Negative (NEGATIVE) 05/27/16 16:00 Urine Bilirubin Negative (NEGATIVE) 05/27/16 16:00 Urine Urobilinogen 1.0 E.U./dL (<1 E.U./dL) H 05/27/16 16:00 Ur Leukocyte Esterase Negative Luz/uL (NEGATIVE) 05/27/16 16:00 Urine HCG, Qual Negative (NEGATIVE) 05/27/16 16:00 Blood Type B POSITIVE 05/28/16 07:58 Antibody Screen Negative 05/28/16 07:58 Crossmatch See Detail 05/28/16 07:58 BBK History Checked Patient has bt 05/28/16 07:58 Attending/Attestation - Attestation I have personally seen and examined this patient.: Yes I have fully participated in the care of the patient.: Yes I have reviewed all pertinent clinical information, including history, physical exam and plan: Yes Notes (Text): I have seen and examined patient at bedside with the resident. Agree with the above note. Briefly, this is a 35 year old female with history of sickle cell anemia, cerebral palsy, bipolar disorder who got admitted for evaluation of vaso -occlusive crises. Patient does not appear to be in pain. She had abdominal pain most likely due to constipation. She was given 1 unit of PRBC transfusion during this hospitalization. Hb is stable. Continue hydrea and folic acid. Hematology evaluation appreciated. CXR showed improving infiltrate with possible congestion. Procalcitonin level is low. She has been on levofloxacin which will be stopped today. Continue colace and miralax. Chelation as an outpatient for iron overload is recommended. Upon discharge patient will follow up with hematology and PMD . Dr Lyndesy Noble
[2016-06-04 16:59] VITALS: BP 122/74; PULSE 93; TEMP 98.6; O2SAT 98
== END 2016-06-04 17:22 | disposition home or self-care (01) | DRG 395 ==
LOC: ED 14:36 → ERH 17:28 → 3RNO 21:13
PROVIDERS: ADMIT Internal Medicine; ATTEND Hospitalist
PROC: 30233N1 Transfusion of Nonautologous Red Blood Cells into Peripheral Vein, Percutaneous Approach (ICD-10-PCS; principal; 2016-05-30)
PROC: 3E0F7GC Introduction of Other Therapeutic Substance into Respiratory Tract, Via Natural or Artificial Opening (ICD-10-PCS; 2016-05-30)
DX: D57.00 Hb-SS disease with crisis, unspecified (principal); D69.6 Thrombocytopenia, unspecified; E83.111 Hemochromatosis due to repeated red blood cell transfusions; I10 Essential (primary) hypertension; F41.9 Anxiety disorder, unspecified; F43.10 Post-traumatic stress disorder, unspecified; J45.909 Unspecified asthma, uncomplicated; G80.9 Cerebral palsy, unspecified; F31.9 Bipolar disorder, unspecified; R52 Pain, unspecified; K59.00 Constipation, unspecified; D72.829 Elevated white blood cell count, unspecified; Z90.81 Acquired absence of spleen; Z90.49 Acquired absence of other specified parts of digestive tract

== ENCOUNTER 2016-06-10 17:47 | Inpatient (IN) | payer OTHER ==
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
[2016-06-10 19:11] LABS: ADD MANUAL DIFF? NO
[2016-06-10 19:30] LABS: ALB/GLOB RATIO 0.8 (1.1-1.8); ALKALINE PHOSPHATASE 120 U/L (38-133); ALT/SGPT 96 U/L (7-56); AST/SGOT 140 U/L (15-39); BILIRUBIN,TOTAL 2.7 mg/dL (0.2-1.3); BLOOD UREA NITROGEN 17 mg/dL (7-21); CALCIUM 9.2 mg/dL (8.4-10.5); CARBON DIOXIDE 30 mmol/L (21-33); CHLORIDE 100 mmol/L (98-107); GFR AFRICAN-AMERICAN > 60; GLUCOSE,RANDOM 108 mg/dL (70-110); POTASSIUM 4.3 mmol/L (3.6-5.0); SODIUM 138 mmol/L (132-148); TOTAL PROTEIN 8.6 g/dL (5.8-8.3)
[2016-06-10] MEDS ORDERED: HYDROmorphone 1 mg/ml ISec IVP STA (19:42)
[2016-06-10 19:43] LABS: BASO # 0.05 K/mm3 (0.0-2.0); BASO % 0.5 % (0.0-3.0); EOS # 0.2 (0.0-0.7); EOS % 1.6 % (1.5-5.0); GRAN # 4.78 (1.4-6.5); GRAN % 45.7 % (50.0-68.0); LYMPH # 4.3 (1.2-3.4); LYMPH % 40.8 % (22.0-35.0); MEAN CELL VOLUME 105.4 fL (80.0-105.0); MEAN CORPUSCULAR HEMOGLOBIN 37.8 pg (25.0-35.0); MEAN CORPUSCULAR HGB CONC 35.9 g/dl (31.0-37.0); MONO # 1.2 (0.1-0.6); MONO % 11.4 % (1.0-6.0); PLATELET COUNT 94 10^3/uL (120.0-450.0); RED CELL DISTRIBUTION WIDTH 27.9 % (11.5-14.5); WHITE BLOOD COUNT 10.5 10^3/ul (4.5-11.0)
[2016-06-10 19:46] LABS: HEMATOCRIT 23.4 % (36.0-48.0); RETIC% 14.82 % (0.5-1.5)
[2016-06-10 19:49] LABS: INR 1.15 (0.93-1.08); PARTIAL THROMBOPLASTIN TIME 38.4 Seconds (23.7-30.8)
[2016-06-10] MEDS ORDERED: DiphenhydrAMINE 50 mg/ml Inj IVP STA (19:54)
[2016-06-10] MEDS ORDERED: HYDROmorphone 0.5 mg/0.5 ml ISec IVP PRN (21:22)
[2016-06-10] MEDS ORDERED: Albuterol 0.083% Inhal Sol (2.5 mg/3 mL) UD IH PRN (21:41)
[2016-06-10] MEDS ORDERED: Sodium Chloride 0.9% 1,000 ML IV SCH (21:45)
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
[2016-06-10] MEDS ORDERED: cefTRIAXone 1 gm 100 ML IVPB STA (21:59)
[2016-06-10] MEDS ORDERED: Azithromycin 500MG/NS 250ml 250 ML IVPB STA (21:59)
[2016-06-10] MEDS ORDERED: ASMANEX 100 MCG INH SCH (22:00)
[2016-06-10] MEDS ORDERED: Albuterol-Ipratrop 3 mg / 0.5 (3 ml) UD IH PRN (22:22)
[2016-06-11] MEDS: HYDROmorphone 1 mg/ml ISec IVP PRN ×5 (01:00→20:49)
[2016-06-11] MEDS: Sodium Chloride 0.9% 1,000 ML IV SCH ×5 (02:44→18:33)
[2016-06-11 03:19] VITALS: BMI 18.7
[2016-06-11 05:52] LABS: URINE BILIRUBIN NEGATIVE (NEGATIVE); URINE BLOOD TRACE-LYSED (NEGATIVE); URINE GLUCOSE (UA) NEGATIVE (NEGATIVE); URINE KETONE NEGATIVE (NEGATIVE); URINE LEUKOCYTE ESTERASE NEGATIVE Leu/uL (NEGATIVE); URINE PROTEIN NEGATIVE mg/dL (<30 mg/dL)
[2016-06-11 06:11] LABS: URINE COLOR YELLOW (YELLOW)
[2016-06-11 06:12] LABS: URINE APPEARANCE CLEAR (CLEAR)
[2016-06-11 06:16] LABS: URINE BACTERIA OCC (NEG); URINE EPITHELIAL CELLS 0 - 2 /hpf (0-5); URINE RBC 0 - 2 /hpf (0-2); URINE WBC 0 - 2 /hpf (0-6)
[2016-06-11 06:30] LABS: ARTERIAL BLOOD GAS HCO3 28.2 mmol/L (21-28); ARTERIAL BLOOD GAS O2 CAPACITY 10.3 mL/dl (16-24); ARTERIAL BLOOD GAS O2 CONTENT 9.9 ML/dl (15-23); ARTERIAL BLOOD GAS PH 7.36 (7.35-7.45); ARTERIAL BLOOD HGB O2 SAT 89.9 % (95.0-98.0); CARBOXYHEMOGLOBIN 5.5 % (0.5-1.5); METHEMOGLOBIN 0.6 % (0.0-3.0)
[2016-06-11] MEDS: Pantoprazole 40 mg EC Tab PO SCH (07:56)
--- NOTE | 2016-06-11 07:59 | CP.PCM.PN ---
<Brandy Galarza - Last Filed: 06/11/16 18:41> Subjective - Date & Time of Evaluation Date of Evaluation: 06/11/16 Time of Evaluation: 09:45 - Subjective Subjective: Hosptalist progress note for Dr. Lyndsey Noble Patient s/e at bedside this AM. NAEO. Patient is lethargic and only answers questions with mono-syllables after multiple verbal proddings. Reports persistent chest pain and intermittent cough, denies palpitations, SOB, fevers, chills, nausea, vomiting, abdominal pain, extremity pain, calf tenderness or swelling, or any other symptoms. Objective - Vital Signs/Intake and Output Vital Signs (last 24 hours): Temp Pulse Resp BP Pulse Ox 98.4 F 104 H 19 113/82 99 06/11/16 05:25 06/11/16 05:25 06/11/16 05:25 06/11/16 05:25 06/11/16 05:25 Intake and Output: 06/11/16 06/11/16 06:59 18:59 Intake Total 520 Output Total 900 Balance -380 - Medications Medications: Current Medications Albuterol/Ipratropium (Duoneb 3 Mg/0.5 Mg (3 Ml) Ud) 3 ml IH Q2H PRN PRN Reason: Shortness of Breath Divalproex Sodium (Depakote Dr (*Bid*)) 250 mg PO BID ARLETTE PRN Reason: Protocol Folic Acid (Folic Acid) 1 mg PO DAILY ARLE[facility]E Hydromorphone HCl (Dilaudid) 0.5 mg IVP Q4H PRN PRN Reason: Pain, moderate (4-7) Hydromorphone HCl (Dilaudid) 1 mg IVP Q4H PRN PRN Reason: Pain, severe (8-10) Last Admin: 06/11/16 07:57 Dose: 1 mg Hydroxyurea (Hydrea) 500 mg PO BID ARLETTE Sodium Chloride (Sodium Chloride 0.9%) 1,000 mls @ 150 mls/hr IV .Q6H40M ARLETTE Last Admin: 06/11/16 03:48 Dose: Not Given Azithromycin (Zithromax 500mg In Ns) 250 mls @ 167 mls/hr IVPB DAILY ARLETTE PRN Reason: Protocol Ceftriaxone Sodium (Rocephin 1 Gram Ivpb) 100 mls @ 100 mls/hr IVPB DAILY AR[facility]E PRN Reason: Protocol Multivitamins/Minerals (Therapeutic-M Tab) 1 tab PO DAILY [facility]E Pantoprazole Sodium (Protonix Ec Tab) 40 mg PO ACB ARLETTE Last Admin: 06/11/16 07:56 Dose: 40 mg Trazodone HCl (Desyrel) 25 mg PO HS ARLETTE Last Admin: 06/11/16 02:11 Dose: 25 mg - Labs Labs: PT 12.4 Seconds (9.9-11.8) H 06/10/16 19:05 INR 1.15 (0.93-1.08) H 06/10/16 19:05 APTT 38.4 Seconds (23.7-30.8) H 06/10/16 19:05 - Constitutional Appears: Non-toxic, No Acute Distress - Head Exam Head Exam: ATRAUMATIC, NORMOCEPHALIC - Eye Exam Eye Exam: Normal appearance. absent: Conjunctival injection, Scleral icterus - ENT Exam ENT Exam: Mucous Membranes Moist, Normal Oropharynx - Respiratory Exam Respiratory Exam: Clear to Ausculation Bilateral, NORMAL BREATHING PATTERN. absent: Accessory Muscle Use, Respiratory Distress - Cardiovascular Exam Cardiovascular Exam: Tachycardia, REGULAR RHYTHM. absent: +S1, +S2, Murmur - GI/Abdominal Exam GI & Abdominal Exam: Distended (mild distention), Soft, Tenderness (moderate tenderness in the lower abdomen BL). absent: Guarding, Rigid, Rebound - Extremities Exam Extremities Exam: absent: Calf Tenderness, Pedal Edema, Tenderness - Neurological Exam Neurological Exam: Altered (lethargic), Awake, Oriented x3 - Psychiatric Exam Psychiatric exam: Flat Affect, Normal Mood - Skin Skin Exam: Dry, Intact, Normal Color, Warm Assessment and Plan - Assessment and Plan (Free Text) Assessment: This is a 35Y F with PMH sickle cell, cerebral palsy, asthma, HTN and bipolar disorder admitted for acute chest syndrome. Plan: 1. Acute chest syndrome CXR: moderate cardiomegaly, mild vascular congestion EKG: sinus tachycardia, LVH, non-specific t-wave abnormality. Grossly unchanged from prior ABG: mild hypercapnea, no acidosis/alkalosis d-dimer elevated at 1.98 Duplex ultrasound of LE BL: no DVT hgb stable at 8.4, retic count up 17 from 14.8 yesterday Plan - Rocephin, Zithromax - Continue NC 2L - Pt does not have hypoxia at present time, but if becomes hypoxic-consider exchange transfusion - Heme consulted- Dr. Palacios--appreciate recs - Duoneb prn - Hydroxyurea BID - NS@150 - Dilaudid prn pain - Continue to monitor CBC and reticulocyte count - MVI 2. Chronic systolic CHF ECHO 12/2015: LVEF: 40.2%, mild/mod systolic impairment, hypokinesis of left ventricle, mild pulmonary HTN Cardiology consult: continue IV hydration, rocephin, zithromax, lasix if necessary for fluid overload Plan - Continue to follow cardiology recs - lasix if necessary for fluid overload 3. Cerebral Palsy - Continue Depakote - Continue multivitamin and folic acid 4. Hx of Bipolar disorder - Continue Trazodone (home med) GI ppx: Protonix DVT ppx: SCDs patient seen and discussed with Dr. Lyndsey Galarza, PGY1 <Lyndsey Noble B - Last Filed: 06/17/16 17:17> Objective - Vital Signs/Intake and Output Vital Signs (last 24 hours): Temp Pulse Resp BP Pulse Ox 98.2 F 94 H 18 117/80 92 L 06/17/16 16:00 06/17/16 16:00 06/17/16 16:00 06/17/16 16:00 06/17/16 16:00 Intake and Output: 06/17/16 06/17/16 06:59 18:59 Intake Total 720 970 Output Total 500 Balance 220 970 - Medications Medications: Current Medications Albuterol/Ipratropium (Duoneb 3 Mg/0.5 Mg (3 Ml) Ud) 3 ml IH Q2H PRN PRN Reason: Shortness of Breath Diphenhydramine HCl (Benadryl) 25 mg IVP Q8 PRN PRN Reason: Allergy symptoms Last Admin: 06/17/16 13:09 Dose: 25 mg Divalproex Sodium (Depakote Dr (*Bid*)) 250 mg PO BID ARLETTE PRN Reason: Protocol Last Admin: 06/17/16 08:59 Dose: 250 mg Docusate Sodium (Colace) 100 mg PO BID [facility] Last Admin: 06/17/16 08:59 Dose: 100 mg Enoxaparin Sodium (Lovenox) 30 mg SC DAILY [facility] PRN Reason: Protocol Last Admin: 06/17/16 08:59 Dose: 30 mg Famotidine (Pepcid) 20 mg PO 1000,2200 [facility] Folic Acid (Folic Acid) 1 mg PO DAILY [facility] Last Admin: 06/17/16 08:59 Dose: 1 mg Guaifenesin (Robitussin) 200 mg PO Q4H PRN PRN Reason: Cough and congestion Last Admin: 06/13/16 21:02 Dose: 200 mg Hydromorphone HCl (Dilaudid) 0.5 mg IVP Q4H PRN PRN Reason: Pain, moderate (4-7) Hydromorphone HCl (Dilaudid) 1 mg IVP Q4H PRN PRN Reason: Pain, severe (8-10) Last Admin: 06/17/16 13:09 Dose: 1 mg Hydroxyurea (Hydrea) 500 mg PO BID [facility] Last Admin: 06/15/16 17:43 Dose: 500 mg Sodium Chloride (Sodium Chloride 0.9%) 1,000 mls @ 150 mls/hr IV .Q6H40M [facility] Last Admin: 06/16/16 09:53 Dose: 150 mls/hr Magnesium Hydroxide (Milk Of Magnesia) 30 ml PO DAILY PRN PRN Reason: Constipation Multivitamins/Minerals (Therapeutic-M Tab) 1 tab PO DAILY [facility] Last Admin: 06/17/16 08:59 Dose: 1 tab Ondansetron HCl (Zofran Inj) 4 mg IVP Q4H PRN PRN Reason: Nausea/Vomiting Last Admin: 06/11/16 18:57 Dose: 4 mg Trazodone HCl (Desyrel) 25 mg PO HS [facility] Last Admin: 06/16/16 21:04 Dose: 25 mg - Labs Labs: 06/17/16 05:45 06/17/16 05:45 PT 12.0 Seconds (9.9-11.8) H 06/13/16 10:45 INR 1.11 (0.93-1.08) H 06/13/16 10:45 APTT 38.4 Seconds (23.7-30.8) H 06/10/16 19:05 Attending/Attestation - Attestation I have personally seen and examined this patient.: Yes I have fully participated in the care of the patient.: Yes I have reviewed all pertinent clinical information, including history, physical exam and plan: Yes Notes (Text): I have seen and examined the patient with the resident.This is a 35 year old female with history of sickle cell anemia, cerebral palsy, bipolar disorder who got admitted for evaluation of vaso-occlusive crises/Acute chest syndrome. She appears very tired, lethargic and is answering questions minimally. Continue oxygen, IV fluids, IV Dilaudid. Retic count is high. Continue hydrea and folic acid. Hematology evaluation appreciated. Plan to avoid transfusion secondary to iron overload. Chest x-ray showed possible infiltrate vs atelectasis. Will order for repeat CXR. procalcitonin is is negative. Patient is afebrile and nontoxic and is on Rocephin and Zithromax. Chelation as an outpatient for iron overload is recommended. Upon discharge patient will follow up with hematology and was PMD . Dr Lyndsey Noble
[2016-06-11 08:13] LABS: ADD MANUAL DIFF? NO
[2016-06-11 08:21] LABS: BASO # 0.05 K/mm3 (0.0-2.0); BASO % 0.5 % (0.0-3.0); EOS # 0.2 (0.0-0.7); EOS % 2.2 % (1.5-5.0); GRAN # 4.93 (1.4-6.5); GRAN % 50.9 % (50.0-68.0); LYMPH # 3.5 (1.2-3.4); LYMPH % 36.1 % (22.0-35.0); MEAN CELL VOLUME 105.4 fL (80.0-105.0); MEAN CORPUSCULAR HEMOGLOBIN 37.5 pg (25.0-35.0); MEAN CORPUSCULAR HGB CONC 35.6 g/dl (31.0-37.0); MEAN PLATELET VOLUME 10.6 fl (7.0-11.0); MONO % 10.3 % (1.0-6.0); PLATELET COUNT 130 10^3/uL (120.0-450.0); RED CELL DISTRIBUTION WIDTH 27.3 % (11.5-14.5); WHITE BLOOD COUNT 9.7 10^3/ul (4.5-11.0)
[2016-06-11 08:26] LABS: HEMATOCRIT 23.6 % (36.0-48.0)
[2016-06-11 08:29] LABS: ALB/GLOB RATIO 0.8 (1.1-1.8); ALKALINE PHOSPHATASE 113 U/L (38-133); ALT/SGPT 91 U/L (7-56); AST/SGOT 133 U/L (15-39); BILIRUBIN,TOTAL 2.3 mg/dL (0.2-1.3); BLOOD UREA NITROGEN 13 mg/dL (7-21); CALCIUM 8.8 mg/dL (8.4-10.5); CARBON DIOXIDE 30 mmol/L (21-33); CHLORIDE 103 mmol/L (98-107); GFR AFRICAN-AMERICAN > 60; GLUCOSE,RANDOM 94 mg/dL (70-110); POTASSIUM 4.7 mmol/L (3.6-5.0); SODIUM 141 mmol/L (132-148); TOTAL PROTEIN 8.2 g/dL (5.8-8.3)
[2016-06-11 08:32] LABS: RETIC% 17.01 % (0.5-1.5)
[2016-06-11 08:34] LABS: INR 1.12 (0.93-1.08)
--- NOTE | 2016-06-11 09:17 | RAD ---
HISTORY: cp COMPARISON: 06/03/2016 FINDINGS: LUNGS: No active pulmonary disease. PLEURA: No significant pleural effusion identified, no pneumothorax apparent. CARDIOVASCULAR: Moderate cardiomegaly. Mild vascular congestion OSSEOUS STRUCTURES: No significant abnormalities. VISUALIZED UPPER ABDOMEN: Normal. OTHER FINDINGS: None. IMPRESSION: Moderate cardiomegaly. Mild vascular congestion
[2016-06-11] MEDS ORDERED: ASMANEX 100 MCG IH SCH (10:00)
[2016-06-11] MEDS: Divalproex 250 mg DR (BID formulation) PO SCH ×2 (10:29→17:51)
[2016-06-11] MEDS: Multivitamin With Minerals Tab PO SCH (10:29)
[2016-06-11] MEDS: cefTRIAXone 1 gm 100 ML IVPB SCH (10:30)
[2016-06-11] MEDS: HYDROmorphone 0.5 mg/0.5 ml ISec IVP PRN ×2 (11:40→17:52)
[2016-06-11] MEDS: Azithromycin 500MG/NS 250ml 250 ML IVPB SCH (11:42)
--- NOTE | 2016-06-11 12:10 | CARD ---
APPROVED REPORT EKG Measurement Heart [id number] <Conclusion> Sinus tachycardia Minimal voltage criteria for LVH, may be normal variant Nonspecific T wave abnormality Abnormal ECG
--- NOTE | 2016-06-11 13:57 | CON ---
DATE: 06/11/2016 REASON FOR CONSULTATION: Chest pain. HISTORY OF PRESENT ILLNESS: The patient is a 35-year-old who has a history of sickle cell anemia, hy pertension, bipolar disorder, bronchial asthma, presented because of sharp chest pain associated with shortness of breath and productive cough. The patient denies any fever or chills. The patient was evaluated in December of last year and echocardiographic study revealed mildly to moderately impaired ejection fraction with global hypokinesis of the left ventricle, ejection fraction estimated at abou t 40% with mild pulmonary hypertension. SOCIAL HISTORY: The patient is a nonsmoker. MEDICATIONS: Depakote 250 mg twice a day, Desyrel 25 mg at bedtime, Dilaudid 0.5 mg intravenously q. 4 hours p.r.n., hydroxyurea 500 mg p.o. twice a day, Rocephin 1 gram intravenously once a day, folic acid 1 mg once a day, ____ inhaler q.2 hours p.r.n., normal saline at 150 mL an hour, Zithromax 500 m g intravenously daily. PHYSICAL EXAMINATION: GENERAL: The patient is a young middle-aged female who does not appear to be in any distress. VITAL SIGNS: Blood pressure 125/84, heart rate 96, temperature 98.3, respirations 18. HEENT: Pale conjunctivae. CHEST: Bilateral rhonchi. HEART: S1, S2 regular. ABDOMEN: Soft. EXTREMITIES: No edema, no calf tenderness. LABORATORY DATA: Hemoglobin and hematocrit 8.4 and 23.6. White count and platelet count are within normal limits. Reticulocyte count is elevated at 17.01. D-dimer is slightly elevated at 1.98. Toda y's SMA-7 is within normal limits except for creatinine of 0.4. Total bilirubin is 2.3. Urine pregn maurice test is negative. EKG revealed sinus tachycardia at rate 125, nonspecific T-wave changes. Ches t x-ray revealed mild cardiomegaly and mild vascular congestion. ASSESSMENT: 1. Atypical chest pain. 2. Consider sickle cell crisis. 3. Mild congestive heart failure. 4. Bipolar disorder. 5. Rule out underlying pneumonia. RECOMMENDATIONS: Continue current intravenous hydration. Continue IV Rocephin and IV Zithromax. Wa tch for any signs of volume overload. Consider IV Lasix if the patient develops florid CHF ____ hydr ation. Venous Doppler of lower extremity was negative for DVT in December of last year. Pedro Luis Deshpande MD cc: [id number] TT: 06/11/2016 13:56:46 Confirmation # [id number] Dictation # [id number]
[2016-06-11] MEDS ORDERED: POLYETHYLENE GLYCOL 3350 17 GM/Dose PACKET PO PRN (18:33)
--- NOTE | 2016-06-11 18:55 | US ---
HISTORY: Leg pain and swelling. Evaluate for DVT PHYSICIAN(S): Noé Whalen MD. TECHNIQUE: Duplex sonography and color-flow Doppler with graded compression were used to evaluate the deep venous systems of both lower extremities. FINDINGS: The visualized deep venous systems of both lower extremities are sonographically normal and compressible. Normal wave forms and augmentation are seen. There is no sonographic evidence for deep venous thrombosis in the visualized segments of both lower extremities. IMPRESSION: No sonographic evidence for deep venous thrombosis in the visualized segments of both lower extremities.
[2016-06-12] MEDS: Sodium Chloride 0.9% 1,000 ML IV SCH ×3 (00:52→22:24)
--- NOTE | 2016-06-12 00:52 | CP.PCM.CON ---
History of Present Illness - History of Present Illness History of Present Illness: 35 year old female with a history of sickle cell anemia and bipolar disorder, admitted with chest pain and concern for acute chest syndrome. She has been admitted more frequently from her baseline. She reports she has been having sharp chest pain. She denies fevers and chills. She has no shortness of breath. Past medical history: Sickle cell disease, bipolar disorder. Past surgical history: portacath removal, cholecystectomy Family history: Both parents have sickle trait. Social history: Denies tobacco, alcohol, and illicit drug use. Allergies: Acetaminophen, aspirin, oxycodone. Review of systems: All remaining ROS including HEENT, cardiovascular, respiratory, gastrointestinal, genitourinary, musculoskeletal, dermatologic, neurologic, and psychiatric are negative unless mentioned in the HPI. Past Patient History - Infectious Disease Hx of Infectious Diseases: None - Tetanus Immunizations Tetanus Immunization: Up to Date - Past Medical History & Family History Past Medical History?: Yes - Past Social History Smoking Status: Unknown If Ever Smoked - CARDIAC Hx Cardiac Disorders: No - PULMONARY Hx Respiratory Disorders: Yes Hx Asthma: Yes Hx Bronchitis: Yes Hx Pneumonia: Yes - NEUROLOGICAL Hx Neurological Disorder: Yes (cerebral palsy) - HEENT Hx HEENT Problems: No - RENAL Hx Chronic Kidney Disease: No - ENDOCRINE/METABOLIC Hx Endocrine Disorders: Yes - HEMATOLOGICAL/ONCOLOGICAL Hx Blood Disorders: Yes Hx Anemia: Yes (Sickle Cell) Hx Sickle Cell Disease: Yes - INTEGUMENTARY Hx Dermatological Problems: No - MUSCULOSKELETAL/RHEUMATOLOGICAL Hx Musculoskeletal Disorders: Yes Hx Falls: Yes - GASTROINTESTINAL Hx Gastrointestinal Disorders: Yes Hx Gall Bladder Disease: Yes (Cholecystectomy) Hx Pancreatitis: Yes - GENITOURINARY/GYNECOLOGICAL Hx Genitourinary Disorders: Yes Hx Sexually Transmitted Disorders: Yes (GENITAL HERPES) Hx Urinary Tract Infection: Yes - PSYCHIATRIC Hx Psychophysiologic Disorder: Yes Hx Anxiety: Yes Hx Bipolar Disorder: Yes Hx Depression: Yes Hx Substance Use: No - SURGICAL HISTORY Hx Surgeries: Yes Hx Cholecystectomy: Yes Hx Joint Replacement: Yes (R hip) Hx Splenectomy: Yes - ANESTHESIA Hx Anesthesia: Yes Hx Anesthesia Reactions: No Hx Malignant Hyperthermia: No Meds Allergies/Adverse Reactions: Allergies Allergy/AdvReac Type Severity Reaction Status Date / Time acetaminophen Allergy RASH Verified 06/10/16 18:11 aspirin Allergy RASH Verified 06/10/16 18:11 coconut oil Allergy RASH Verified 06/10/16 18:11 morphine Allergy SWELLING Verified 06/10/16 18:11 mushroom Allergy URTICARIA Verified 06/10/16 18:11 oxycodone Allergy RASH Verified 06/10/16 18:11 - Medications Medications: Current Medications Albuterol/Ipratropium (Duoneb 3 Mg/0.5 Mg (3 Ml) Ud) 3 ml IH Q2H PRN PRN Reason: Shortness of Breath Divalproex Sodium (Depakote Dr (*Bid*)) 250 mg PO BID [facility] PRN Reason: Protocol Last Admin: 06/11/16 17:51 Dose: 250 mg Docusate Sodium (Colace) 100 mg PO BID [facility] Last Admin: 06/11/16 18:59 Dose: 100 mg Folic Acid (Folic Acid) 1 mg PO DAILY [facility] Last Admin: 06/11/16 10:29 Dose: 1 mg Hydromorphone HCl (Dilaudid) 0.5 mg IVP Q4H PRN PRN Reason: Pain, moderate (4-7) Last Admin: 06/11/16 17:52 Dose: 0.5 mg Hydromorphone HCl (Dilaudid) 1 mg IVP Q4H PRN PRN Reason: Pain, severe (8-10) Last Admin: 06/11/16 20:49 Dose: 1 mg Hydroxyurea (Hydrea) 500 mg PO BID [facility] Last Admin: 06/11/16 18:33 Dose: 500 mg Sodium Chloride (Sodium Chloride 0.9%) 1,000 mls @ 150 mls/hr IV .Q6H40M [facility] Last Admin: 06/11/16 18:33 Dose: 150 mls/hr Azithromycin (Zithromax 500mg In Ns) 250 mls @ 167 mls/hr IVPB DAILY [facility] PRN Reason: Protocol Last Admin: 06/11/16 11:42 Dose: 167 mls/hr Ceftriaxone Sodium (Rocephin 1 Gram Ivpb) 100 mls @ 100 mls/hr IVPB DAILY [facility] PRN Reason: Protocol Last Admin: 06/11/16 10:30 Dose: 100 mls/hr Multivitamins/Minerals (Therapeutic-M Tab) 1 tab PO DAILY [facility] Last Admin: 06/11/16 10:29 Dose: 1 tab Ondansetron HCl (Zofran Inj) 4 mg IVP Q4H PRN PRN Reason: Nausea/Vomiting Last Admin: 06/11/16 18:57 Dose: 4 mg Pantoprazole Sodium (Protonix Ec Tab) 40 mg PO ACB [facility] Last Admin: 06/11/16 07:56 Dose: 40 mg Polyethylene Glycol (Miralax) 17 gm PO Q8H PRN PRN Reason: Constipation Trazodone HCl (Desyrel) 25 mg PO HS [facility] Last Admin: 06/11/16 21:43 Dose: 25 mg Physical Exam - Head Exam Head Exam: ATRAUMATIC - Eye Exam Eye Exam: Normal appearance - ENT Exam ENT Exam: Mucous Membranes Dry - Respiratory Exam Respiratory Exam: NORMAL BREATHING PATTERN - Cardiovascular Exam Cardiovascular Exam: +S1, +S2 - GI/Abdominal Exam GI & Abdominal Exam: Normal Bowel Sounds - Extremities Exam Extremities exam: Positive for: normal inspection - Neurological Exam Neurological exam: Oriented x3 - Psychiatric Exam Psychiatric exam: Normal Affect, Normal Mood - Skin Skin Exam: Warm Results - Vital Signs Recent Vital Signs: Last Vital Signs Temp 98.3 F 06/11/16 17:28 Pulse 99 H 06/11/16 18:00 Resp 18 06/11/16 17:28 BP 110/74 06/11/16 17:28 Pulse Ox 99 06/11/16 05:25 - Labs Result Diagrams: 06/11/16 08:02 06/11/16 08:02 Labs: Laboratory Results - last 24 hr 06/11/16 06/11/16 06/11/16 03:00 03:30 05:30 WBC RBC Hgb Hct MCV MCH MCHC RDW Plt Count MPV Gran % Lymph % (Auto) [place] % (Auto) Eos % (Auto) Baso % (Auto) Gran # Lymph # Childress # Eos # Baso # Retic Count PT INR D-Dimer, Quantitative pCO2 50 H pO2 73.0 L HCO3 28.2 H ABG pH 7.36 ABG Total CO2 29.7 H ABG O2 Saturation 95.7 ABG O2 Content 9.9 L ABG Base Excess 2.4 ABG Hemoglobin 7.7 L ABG Carboxyhemoglobin 5.5 H POC ABG HHb (Measured) 4.0 ABG Methemoglobin 0.6 ABG O2 Capacity 10.3 L Hgb O2 Saturation 89.9 L FiO2 21.0 Sodium Potassium Chloride Carbon Dioxide Anion Gap BUN Creatinine Est GFR ( Amer) Est GFR (Non-Af Amer) Random Glucose Calcium Total Bilirubin AST ALT Alkaline Phosphatase Troponin I 0.02 Total Protein Albumin Globulin Albumin/Globulin Ratio Procalcitonin Urine Color Yellow Urine Appearance Clear Urine pH 7.0 Ur Specific Ahmeek 1.010 Urine Protein Negative Urine Glucose (UA) Negative Urine Ketones Negative Urine Blood Trace-lysed H Urine Nitrate Negative Urine Bilirubin Negative Urine Urobilinogen 1.0 H Ur Leukocyte Esterase Negative Urine RBC 0 - 2 Urine WBC 0 - 2 Ur Epithelial Cells 0 - 2 Urine Bacteria Occ Urine HCG, Qual Negative 06/11/16 06/11/16 08:02 08:30 WBC 9.7 RBC 2.24 L Hgb 8.4 L Hct 23.6 L MCV 105.4 H MCH 37.5 H MCHC 35.6 RDW 27.3 H Plt Count 130 MPV 10.6 Gran % 50.9 Lymph % (Auto) 36.1 H Childress % (Auto) 10.3 H Eos % (Auto) 2.2 Baso % (Auto) 0.5 Gran # 4.93 Lymph # 3.5 H Childress # 1.0 H Eos # 0.2 Baso # 0.05 Retic Count 17.01 H* PT 12.1 H INR 1.12 H D-Dimer, Quantitative 1.98 H pCO2 pO2 HCO3 ABG pH ABG Total CO2 ABG O2 Saturation ABG O2 Content ABG Base Excess ABG Hemoglobin ABG Carboxyhemoglobin POC ABG HHb (Measured) ABG Methemoglobin ABG O2 Capacity Hgb O2 Saturation FiO2 Sodium 141 Potassium 4.7 Chloride 103 Carbon Dioxide 30 Anion Gap 13 BUN 13 Creatinine 0.4 L Est GFR ( Amer) > 60 Est GFR (Non-Af Amer) > 60 Random Glucose 94 Calcium 8.8 Total Bilirubin 2.3 H AST 133 H ALT 91 H Alkaline Phosphatase 113 Troponin I Total Protein 8.2 Albumin 3.7 Globulin 4.5 Albumin/Globulin Ratio 0.8 L Procalcitonin 0.41 Urine Color Urine Appearance Urine pH Ur Specific Ahmeek Urine Protein Urine Glucose (UA) Urine Ketones Urine Blood Urine Nitrate Urine Bilirubin Urine Urobilinogen Ur Leukocyte Esterase Urine RBC Urine WBC Ur Epithelial Cells Urine Bacteria Urine HCG, Qual Assessment & Plan (1) Acute chest syndrome Assessment and Plan: vital signs stable mild tachycardia IV fluids, pain meds, folic acid, 02 via NC Status: Acute (2) Iron overload due to repeated red blood cell transfusions Assessment and Plan: outpatient chelation Status: Chronic (3) Thrombocytopenia Assessment and Plan: mild secondary to hydrea Status: Chronic (4) Sickle cell anemia Assessment and Plan: folic acid and hydrea Thank you for this interesting consult. Status: Chronic
[2016-06-12] MEDS: HYDROmorphone 1 mg/ml ISec IVP PRN ×6 (00:54→20:24)
[2016-06-12 07:24] LABS: ADD MANUAL DIFF? NO
[2016-06-12 07:27] LABS: BASO # 0.07 K/mm3 (0.0-2.0); BASO % 0.8 % (0.0-3.0); EOS # 0.3 (0.0-0.7); EOS % 3.4 % (1.5-5.0); GRAN # 2.87 (1.4-6.5); GRAN % 32.8 % (50.0-68.0); LYMPH # 4.5 (1.2-3.4); LYMPH % 51.3 % (22.0-35.0); MEAN CORPUSCULAR HEMOGLOBIN 37.7 pg (25.0-35.0); MEAN CORPUSCULAR HGB CONC 35.2 g/dl (31.0-37.0); MEAN PLATELET VOLUME 10.4 fl (7.0-11.0); MONO % 11.7 % (1.0-6.0); PLATELET COUNT 145 10^3/uL (120.0-450.0); RED CELL DISTRIBUTION WIDTH 28.3 % (11.5-14.5); WHITE BLOOD COUNT 8.8 10^3/ul (4.5-11.0)
[2016-06-12 07:30] LABS: RETIC% 20.85 % (0.5-1.5)
[2016-06-12 07:35] LABS: INR 1.14 (0.93-1.08)
[2016-06-12 07:42] LABS: ALB/GLOB RATIO 0.8 (1.1-1.8); ALKALINE PHOSPHATASE 113 U/L (38-133); ALT/SGPT 96 U/L (7-56); AST/SGOT 140 U/L (15-39); BILIRUBIN,TOTAL 1.8 mg/dL (0.2-1.3); BLOOD UREA NITROGEN 8 mg/dL (7-21); CALCIUM 8.4 mg/dL (8.4-10.5); CARBON DIOXIDE 28 mmol/L (21-33); CHLORIDE 102 mmol/L (98-107); GFR AFRICAN-AMERICAN > 60; GLUCOSE,RANDOM 102 mg/dL (70-110); POTASSIUM 4.3 mmol/L (3.6-5.0); SODIUM 139 mmol/L (132-148); TOTAL PROTEIN 7.9 g/dL (5.8-8.3)
[2016-06-12] MEDS: Pantoprazole 40 mg EC Tab PO SCH (08:14)
[2016-06-12] MEDS: Divalproex 250 mg DR (BID formulation) PO SCH ×2 (11:03→18:10)
[2016-06-12] MEDS: Multivitamin With Minerals Tab PO SCH (11:04)
[2016-06-12] MEDS: Azithromycin 500MG/NS 250ml 250 ML IVPB SCH (11:04)
[2016-06-12] MEDS: cefTRIAXone 1 gm 100 ML IVPB SCH (11:05)
--- NOTE | 2016-06-12 12:53 | RAD ---
HISTORY: r/o infiltrate vs congestion COMPARISON: 06/10/2016 at 9:52 p.m. FINDINGS: LUNGS: Pulmonary vasculature borderline increased- minimal pulmonary venous congestion possible. No consolidation seen PLEURA: No significant pleural effusion identified, no pneumothorax apparent. CARDIOVASCULAR: Cardiomegaly unchanged. Right central line tip in right atrium not significantly changed OSSEOUS STRUCTURES: No significant abnormalities. VISUALIZED UPPER ABDOMEN: Normal. OTHER FINDINGS: None. IMPRESSION: Cardiomegaly and possible minimal pulmonary venous congestion findings not significantly changed. Right central line placement as above. No pneumothorax
[2016-06-12] MEDS: POLYETHYLENE GLYCOL 3350 17 GM/Dose PACKET PO SCH ×2 (13:00→21:18)
--- NOTE | 2016-06-12 16:52 | PN ---
DATE: 06/12/2016 The patient denies chest pain at this time. She is sleepy . PHYSICAL EXAMINATION: VITAL SIGNS: Blood pressure 127/79, heart rate 96, temperature 98.4, respirations 18. HEENT: Pale conjunctivae. CHEST: Minimal rhonchi. HEART: S1, S2 regular. EXTREMITIES: No edema. LABORATORIES: Today's hemoglobin and hematocrit 8.1 and 23. White count and platelet count are with in normal limits. Retic count still elevated at 20.85. Today's SMA-7 is within normal limits except for creatinine 0.4. Total bilirubin has improved to 1.8. ASSESSMENT: 1. Sickle cell crisis. 2. Atypical chest pain. 3. Mild congestive heart failure. 4. Bipolar disorder. RECOMMENDATIONS: Case was discussed with Dr. Noble, the wildlife conservationist. Continue current hydroxyurea, I V Rocephin and IV Zithromax. Continue hydration with normal saline at 150 mL an hour. Continue Depa kote and Desyrel. Pedro Luis Deshpande MD cc: [id number] TT: 06/12/2016 16:51:11 Confirmation # [id number] Dictation # [id number] dn
--- NOTE | 2016-06-12 17:24 | CP.PCM.PN ---
<Brandy Galarza - Last Filed: 06/12/16 23:17> Subjective - Date & Time of Evaluation Date of Evaluation: 06/12/16 Time of Evaluation: 07:30 - Subjective Subjective: Hospitalist progress note for Dr. Noble Pt s/e at bedside this. AM. NAEO. Patient is still lethargic but more alert and interactive today than yesterday. Patient complains of persistent chest pain and SOB, denies radiating pain to the shoulders or neck, cough, nausea, vomiting , fevers, chills, constipatin, dysuria, leg swelling or tenderness. Objective - Vital Signs/Intake and Output Vital Signs (last 24 hours): Temp Pulse Resp BP Pulse Ox 98.4 F 96 H 18 127/79 99 06/12/16 12:00 06/12/16 14:00 06/12/16 12:00 06/12/16 12:00 06/12/16 05:45 Intake and Output: 06/12/16 06/12/16 06:59 18:59 Intake Total 3600 360 Output Total 700 800 Balance 2900 -440 - Medications Medications: Current Medications Albuterol/Ipratropium (Duoneb 3 Mg/0.5 Mg (3 Ml) Ud) 3 ml IH Q2H PRN PRN Reason: Shortness of Breath Divalproex Sodium (Depakote Dr (*Bid*)) 250 mg PO BID [facility] PRN Reason: Protocol Last Admin: 06/12/16 11:03 Dose: 250 mg Docusate Sodium (Colace) 100 mg PO BID [facility] Last Admin: 06/12/16 11:03 Dose: 100 mg Folic Acid (Folic Acid) 1 mg PO DAILY [facility] Last Admin: 06/12/16 11:04 Dose: 1 mg Hydromorphone HCl (Dilaudid) 0.5 mg IVP Q4H PRN PRN Reason: Pain, moderate (4-7) Last Admin: 06/11/16 17:52 Dose: 0.5 mg Hydromorphone HCl (Dilaudid) 1 mg IVP Q4H PRN PRN Reason: Pain, severe (8-10) Last Admin: 06/12/16 16:09 Dose: 1 mg Hydroxyurea (Hydrea) 500 mg PO BID [facility] Last Admin: 06/12/16 11:59 Dose: 500 mg Sodium Chloride (Sodium Chloride 0.9%) 1,000 mls @ 150 mls/hr IV .Q6H40M [facility] Last Admin: 06/12/16 06:58 Dose: 150 mls/hr Azithromycin (Zithromax 500mg In Ns) 250 mls @ 167 mls/hr IVPB DAILY [facility] PRN Reason: Protocol Last Admin: 06/12/16 11:04 Dose: 167 mls/hr Ceftriaxone Sodium (Rocephin 1 Gram Ivpb) 100 mls @ 100 mls/hr IVPB DAILY [facility] PRN Reason: Protocol Last Admin: 06/12/16 11:05 Dose: 100 mls/hr Multivitamins/Minerals (Therapeutic-M Tab) 1 tab PO DAILY [facility] Last Admin: 06/12/16 11:04 Dose: 1 tab Ondansetron HCl (Zofran Inj) 4 mg IVP Q4H PRN PRN Reason: Nausea/Vomiting Last Admin: 06/11/16 18:57 Dose: 4 mg Pantoprazole Sodium (Protonix Ec Tab) 40 mg PO ACB [facility] Last Admin: 06/12/16 08:14 Dose: 40 mg Polyethylene Glycol (Miralax) 17 gm PO Q8H [facility] Trazodone HCl (Desyrel) 25 mg PO HS [facility] Last Admin: 06/11/16 21:43 Dose: 25 mg - Labs Labs: 06/12/16 06:30 06/12/16 06:30 PT 12.3 Seconds (9.9-11.8) H 06/12/16 06:30 INR 1.14 (0.93-1.08) H 06/12/16 06:30 APTT 38.4 Seconds (23.7-30.8) H 06/10/16 19:05 - Constitutional Appears: Non-toxic, No Acute Distress - Head Exam Head Exam: ATRAUMATIC, NORMOCEPHALIC - Eye Exam Eye Exam: Normal appearance. absent: Conjunctival injection, Scleral icterus - ENT Exam ENT Exam: Mucous Membranes Moist, Normal Oropharynx - Respiratory Exam Respiratory Exam: Decreased Breath Sounds, NORMAL BREATHING PATTERN. absent: Accessory Muscle Use, Rales, Rhonchi, Wheezes, Respiratory Distress - Cardiovascular Exam Cardiovascular Exam: Tachycardia, REGULAR RHYTHM, +S1, +S2. absent: Murmur - GI/Abdominal Exam GI & Abdominal Exam: Distended (moderately distended), Soft. absent: Tenderness - Extremities Exam Extremities Exam: absent: Calf Tenderness, Pedal Edema, Tenderness - Neurological Exam Neurological Exam: Altered, Awake, Oriented x3 - Psychiatric Exam Psychiatric exam: Depressed, Flat Affect - Skin Skin Exam: Dry, Intact, Normal Color, Warm Assessment and Plan - Assessment and Plan (Free Text) Assessment: This is a 35Y F with PMH sickle cell, cerebral palsy, asthma, HTN and bipolar disorder admitted for acute chest syndrome. Plan: 1. Acute chest syndrome CXR: moderate cardiomegaly, mild vascular congestion, no infiltrate hgb slight drop at 8.1 down from 8.4, retic count up to 20 from 17 yesterday Plan - Zithromax - Continue NC 2L - Pt does not have hypoxia at present time, but if becomes hypoxic-consider exchange transfusion - Heme consulted- Dr. Palacios--appreciate recs - Duoneb prn - Hydroxyurea BID - NS@150 - Dilaudid prn pain - Continue to monitor CBC and reticulocyte count - MVI 2. Chronic systolic CHF ECHO 12/2015: LVEF: 40.2%, mild/mod systolic impairment, hypokinesis of left ventricle, mild pulmonary HTN Cardiology consult: continue IV hydration, rocephin, zithromax, lasix if necessary for fluid overload Plan - Continue to follow cardiology recs - lasix if necessary for fluid overload - repeat CXR in the AM 3. Cerebral Palsy - Continue Depakote - Continue multivitamin and folic acid 4. Hx of Bipolar disorder - Continue Trazodone (home med) 5. Hx of constipation -miralax, colace -continue to monitor GI ppx: Protonix DVT ppx: SCDs patient seen and discussed with Dr. Lyndsey Galarza, PGY1 <Lyndsey Noble B - Last Filed: 06/17/16 17:16> Objective - Vital Signs/Intake and Output Vital Signs (last 24 hours): Temp Pulse Resp BP Pulse Ox 98.2 F 94 H 18 117/80 92 L 06/17/16 16:00 06/17/16 16:00 06/17/16 16:00 06/17/16 16:00 06/17/16 16:00 Intake and Output: 06/17/16 06/17/16 06:59 18:59 Intake Total 720 970 Output Total 500 Balance 220 970 - Medications Medications: Current Medications Albuterol/Ipratropium (Duoneb 3 Mg/0.5 Mg (3 Ml) Ud) 3 ml IH Q2H PRN PRN Reason: Shortness of Breath Diphenhydramine HCl (Benadryl) 25 mg IVP Q8 PRN PRN Reason: Allergy symptoms Last Admin: 06/17/16 13:09 Dose: 25 mg Divalproex Sodium (Depakote Dr (*Bid*)) 250 mg PO BID [facility] PRN Reason: Protocol Last Admin: 06/17/16 08:59 Dose: 250 mg Docusate Sodium (Colace) 100 mg PO BID [facility] Last Admin: 06/17/16 08:59 Dose: 100 mg Enoxaparin Sodium (Lovenox) 30 mg SC DAILY [facility] PRN Reason: Protocol Last Admin: 06/17/16 08:59 Dose: 30 mg Famotidine (Pepcid) 20 mg PO 1000,2200 [facility] Folic Acid (Folic Acid) 1 mg PO DAILY [facility] Last Admin: 06/17/16 08:59 Dose: 1 mg Guaifenesin (Robitussin) 200 mg PO Q4H PRN PRN Reason: Cough and congestion Last Admin: 06/13/16 21:02 Dose: 200 mg Hydromorphone HCl (Dilaudid) 0.5 mg IVP Q4H PRN PRN Reason: Pain, moderate (4-7) Hydromorphone HCl (Dilaudid) 1 mg IVP Q4H PRN PRN Reason: Pain, severe (8-10) Last Admin: 06/17/16 13:09 Dose: 1 mg Hydroxyurea (Hydrea) 500 mg PO BID [facility] Last Admin: 06/15/16 17:43 Dose: 500 mg Sodium Chloride (Sodium Chloride 0.9%) 1,000 mls @ 150 mls/hr IV .Q6H40M [facility] Last Admin: 06/16/16 09:53 Dose: 150 mls/hr Magnesium Hydroxide (Milk Of Magnesia) 30 ml PO DAILY [facility] PRN Reason: Constipation Multivitamins/Minerals (Therapeutic-M Tab) 1 tab PO DAILY [facility] Last Admin: 06/17/16 08:59 Dose: 1 tab Ondansetron HCl (Zofran Inj) 4 mg IVP Q4H PRN PRN Reason: Nausea/Vomiting Last Admin: 06/11/16 18:57 Dose: 4 mg Trazodone HCl (Desyrel) 25 mg PO HS [facility] Last Admin: 06/16/16 21:04 Dose: 25 mg - Labs Labs: 06/17/16 05:45 06/17/16 05:45 PT 12.0 Seconds (9.9-11.8) H 06/13/16 10:45 INR 1.11 (0.93-1.08) H 06/13/16 10:45 APTT 38.4 Seconds (23.7-30.8) H 06/10/16 19:05 Attending/Attestation - Attestation I have personally seen and examined this patient.: Yes I have fully participated in the care of the patient.: Yes I have reviewed all pertinent clinical information, including history, physical exam and plan: Yes Notes (Text): I have seen and examined the patient with the resident.This is a 35 year old female with history of sickle cell anemia, cerebral palsy, bipolar disorder who got admitted for evaluation of vaso-occlusive crises/Acute chest syndrome. Continue oxygen, IV fluids, IV Dilaudid. Retic count is improving. Continue hydrea and folic acid. Hematology evaluation appreciated. Plan to avoid transfusion secondary to iron overload. Chest x-ray showed possible infiltrate vs atelectasis. Will order for repeat CXR. procalcitonin is is negative. Patient is afebrile and nontoxic and is on Rocephin and Zithromax. Chelation as an outpatient for iron overload is recommended. Upon discharge patient will follow up with hematology and was PMD . Dr Lyndsey Noble
[2016-06-13] MEDS: HYDROmorphone 1 mg/ml ISec IVP PRN ×6 (00:03→21:42)
--- NOTE | 2016-06-13 01:08 | CP.PCM.PN ---
Subjective - Date & Time of Evaluation Date of Evaluation: 06/12/16 Time of Evaluation: 18:50 - Subjective Subjective: Has chest pain, more interactive today. Objective - Vital Signs/Intake and Output Vital Signs (last 24 hours): Temp Pulse Resp BP Pulse Ox 98.1 F 86 18 120/86 99 06/12/16 18:00 06/12/16 18:00 06/12/16 18:00 06/12/16 18:00 06/12/16 05:45 Intake and Output: 06/12/16 06/13/16 18:59 06:59 Intake Total 360 Output Total 800 Balance -440 - Medications Medications: Current Medications Albuterol/Ipratropium (Duoneb 3 Mg/0.5 Mg (3 Ml) Ud) 3 ml IH Q2H PRN PRN Reason: Shortness of Breath Divalproex Sodium (Depakote Dr (*Bid*)) 250 mg PO BID [facility] PRN Reason: Protocol Last Admin: 06/12/16 18:10 Dose: 250 mg Docusate Sodium (Colace) 100 mg PO BID [facility] Last Admin: 06/12/16 18:09 Dose: 100 mg Folic Acid (Folic Acid) 1 mg PO DAILY [facility] Last Admin: 06/12/16 11:04 Dose: 1 mg Hydromorphone HCl (Dilaudid) 0.5 mg IVP Q4H PRN PRN Reason: Pain, moderate (4-7) Last Admin: 06/11/16 17:52 Dose: 0.5 mg Hydromorphone HCl (Dilaudid) 1 mg IVP Q4H PRN PRN Reason: Pain, severe (8-10) Last Admin: 06/13/16 00:03 Dose: 1 mg Hydroxyurea (Hydrea) 500 mg PO BID [facility] Last Admin: 06/12/16 19:03 Dose: 500 mg Sodium Chloride (Sodium Chloride 0.9%) 1,000 mls @ 150 mls/hr IV .Q6H40M [facility] Last Admin: 06/12/16 22:24 Dose: 150 mls/hr Azithromycin (Zithromax 500mg In Ns) 250 mls @ 167 mls/hr IVPB DAILY [facility] PRN Reason: Protocol Last Admin: 06/12/16 11:04 Dose: 167 mls/hr Ceftriaxone Sodium (Rocephin 1 Gram Ivpb) 100 mls @ 100 mls/hr IVPB DAILY [facility] PRN Reason: Protocol Last Admin: 06/12/16 11:05 Dose: 100 mls/hr Multivitamins/Minerals (Therapeutic-M Tab) 1 tab PO DAILY [facility] Last Admin: 06/12/16 11:04 Dose: 1 tab Ondansetron HCl (Zofran Inj) 4 mg IVP Q4H PRN PRN Reason: Nausea/Vomiting Last Admin: 06/11/16 18:57 Dose: 4 mg Pantoprazole Sodium (Protonix Ec Tab) 40 mg PO ACB [facility] Last Admin: 06/12/16 08:14 Dose: 40 mg Polyethylene Glycol (Miralax) 17 gm PO Q8H [facility] Last Admin: 06/12/16 21:18 Dose: Not Given Trazodone HCl (Desyrel) 25 mg PO HS [facility] Last Admin: 06/12/16 21:19 Dose: 25 mg - Labs Labs: 06/12/16 06:30 06/12/16 06:30 PT 12.3 Seconds (9.9-11.8) H 06/12/16 06:30 INR 1.14 (0.93-1.08) H 06/12/16 06:30 APTT 38.4 Seconds (23.7-30.8) H 06/10/16 19:05 - Head Exam Head Exam: ATRAUMATIC - Eye Exam Eye Exam: Normal appearance - ENT Exam ENT Exam: Mucous Membranes Dry - Respiratory Exam Respiratory Exam: Decreased Breath Sounds - Cardiovascular Exam Cardiovascular Exam: +S1, +S2 - GI/Abdominal Exam GI & Abdominal Exam: Normal Bowel Sounds Assessment and Plan (1) Acute chest syndrome Assessment & Plan: stable vital signs tbili down trending, retic count elevated, H/H stable IV fluids, pain meds, folic acid, 02 via NC Status: Acute (2) Iron overload due to repeated red blood cell transfusions Assessment & Plan: transaminitis noted outpatient chelation minimize transfusion support Status: Chronic (3) Thrombocytopenia Assessment & Plan: improved Status: Chronic (4) Sickle cell anemia Assessment & Plan: folic acid and hydrea Status: Chronic
[2016-06-13] MEDS: Sodium Chloride 0.9% 1,000 ML IV SCH ×3 (04:08→20:00)
[2016-06-13] MEDS: POLYETHYLENE GLYCOL 3350 17 GM/Dose PACKET PO SCH ×3 (05:07→21:02)
[2016-06-13 07:48] LABS: BLOOD UREA NITROGEN 7 mg/dL (7-21); CALCIUM 8.6 mg/dL (8.4-10.5); CARBON DIOXIDE 27 mmol/L (21-33); CHLORIDE 104 mmol/L (98-107); GFR AFRICAN-AMERICAN > 60; GLUCOSE,RANDOM 84 mg/dL (70-110); POTASSIUM 4.9 mmol/L (3.6-5.0); SODIUM 139 mmol/L (132-148)
[2016-06-13 08:42] LABS: BASO # 0.03 K/mm3 (0.0-2.0); BASO % 0.3 % (0.0-3.0); EOS # 0.4 (0.0-0.7); EOS % 4.2 % (1.5-5.0); GRAN # 3.35 (1.4-6.5); GRAN % 37.3 % (50.0-68.0); LYMPH # 4.4 (1.2-3.4); LYMPH % 48.6 % (22.0-35.0); MEAN CELL VOLUME 107.7 fL (80.0-105.0); MEAN CORPUSCULAR HEMOGLOBIN 38.2 pg (25.0-35.0); MEAN CORPUSCULAR HGB CONC 35.4 g/dl (31.0-37.0); MEAN PLATELET VOLUME 10.2 fl (7.0-11.0); MONO # 0.9 (0.1-0.6); MONO % 9.6 % (1.0-6.0); PLATELET COUNT 136 10^3/uL (120.0-450.0); RED CELL DISTRIBUTION WIDTH 27.3 % (11.5-14.5)
[2016-06-13] MEDS: Pantoprazole 40 mg EC Tab PO SCH (08:46)
[2016-06-13 09:03] LABS: HEMATOCRIT 23.7 % (36.0-48.0)
[2016-06-13 09:04] LABS: ADD MANUAL DIFF? NO; RETIC% 18.78 % (0.5-1.5)
[2016-06-13] MEDS: cefTRIAXone 1 gm 100 ML IVPB SCH (09:10)
--- NOTE | 2016-06-13 09:38 | CP.PCM.PN ---
<RamyVibha - Last Filed: 06/13/16 16:09> Subjective - Date & Time of Evaluation Date of Evaluation: 06/13/16 Time of Evaluation: 16:09 - Subjective Subjective: Pt s&e. [place]. Pt cont to have CP. ambulates with help. +void, no other complaints Objective - Vital Signs/Intake and Output Vital Signs (last 24 hours): Temp Pulse Resp BP Pulse Ox 97.9 F 85 20 109/62 99 06/13/16 05:54 06/13/16 05:54 06/13/16 05:54 06/13/16 05:54 06/13/16 05:54 Intake and Output: 06/13/16 06/13/16 06:59 18:59 Intake Total 3620 Output Total 1200 Balance 2420 - Medications Medications: Current Medications Albuterol/Ipratropium (Duoneb 3 Mg/0.5 Mg (3 Ml) Ud) 3 ml IH Q2H PRN PRN Reason: Shortness of Breath Divalproex Sodium (Depakote Dr (*Bid*)) 250 mg PO BID [facility] PRN Reason: Protocol Last Admin: 06/12/16 18:10 Dose: 250 mg Docusate Sodium (Colace) 100 mg PO BID [facility] Last Admin: 06/12/16 18:09 Dose: 100 mg Folic Acid (Folic Acid) 1 mg PO DAILY [facility] Last Admin: 06/12/16 11:04 Dose: 1 mg Hydromorphone HCl (Dilaudid) 0.5 mg IVP Q4H PRN PRN Reason: Pain, moderate (4-7) Last Admin: 06/11/16 17:52 Dose: 0.5 mg Hydromorphone HCl (Dilaudid) 1 mg IVP Q4H PRN PRN Reason: Pain, severe (8-10) Last Admin: 06/13/16 08:46 Dose: 1 mg Hydroxyurea (Hydrea) 500 mg PO BID [facility] Last Admin: 06/12/16 19:03 Dose: 500 mg Sodium Chloride (Sodium Chloride 0.9%) 1,000 mls @ 150 mls/hr IV .Q6H40M [facility] Last Admin: 06/13/16 04:08 Dose: 150 mls/hr Azithromycin (Zithromax 500mg In Ns) 250 mls @ 167 mls/hr IVPB DAILY [facility] PRN Reason: Protocol Last Admin: 06/12/16 11:04 Dose: 167 mls/hr Ceftriaxone Sodium (Rocephin 1 Gram Ivpb) 100 mls @ 100 mls/hr IVPB DAILY [facility] PRN Reason: Protocol Last Admin: 06/13/16 09:10 Dose: 100 mls/hr Multivitamins/Minerals (Therapeutic-M Tab) 1 tab PO DAILY [facility] Last Admin: 06/12/16 11:04 Dose: 1 tab Ondansetron HCl (Zofran Inj) 4 mg IVP Q4H PRN PRN Reason: Nausea/Vomiting Last Admin: 06/11/16 18:57 Dose: 4 mg Pantoprazole Sodium (Protonix Ec Tab) 40 mg PO ACB [facility] Last Admin: 06/13/16 08:46 Dose: 40 mg Polyethylene Glycol (Miralax) 17 gm PO Q8H [facility] Last Admin: 06/13/16 05:07 Dose: Not Given Trazodone HCl (Desyrel) 25 mg PO HS [facility] Last Admin: 06/12/16 21:19 Dose: 25 mg - Labs Labs: 06/13/16 08:30 06/13/16 06:45 PT 12.3 Seconds (9.9-11.8) H 06/12/16 06:30 INR 1.14 (0.93-1.08) H 06/12/16 06:30 APTT 38.4 Seconds (23.7-30.8) H 06/10/16 19:05 - Constitutional Appears: Non-toxic - Head Exam Head Exam: ATRAUMATIC, NORMAL INSPECTION, NORMOCEPHALIC - Eye Exam Eye Exam: EOMI, Normal appearance, PERRL Pupil Exam: NORMAL ACCOMODATION, PERRL - ENT Exam ENT Exam: Mucous Membranes Moist, Normal Exam - Neck Exam Neck Exam: Full ROM, Normal Inspection. absent: Lymphadenopathy - Respiratory Exam Respiratory Exam: Clear to Ausculation Bilateral, NORMAL BREATHING PATTERN - Cardiovascular Exam Cardiovascular Exam: REGULAR RHYTHM, +S1, +S2. absent: Murmur - GI/Abdominal Exam GI & Abdominal Exam: Soft, Normal Bowel Sounds. absent: Distended, Tenderness - Extremities Exam Extremities Exam: Full ROM, Normal Capillary Refill, Normal Inspection. absent : Joint Swelling, Pedal Edema - Back Exam Back Exam: NORMAL INSPECTION - Neurological Exam Neurological Exam: Alert, Awake, CN II-XII Intact, Normal Gait, Oriented x3 - Psychiatric Exam Psychiatric exam: Normal Affect, Normal Mood Assessment and Plan - Assessment and Plan (Free Text) Assessment: This is a 35Y F with PMH sickle cell, cerebral palsy, asthma, HTN and bipolar disorder admitted for acute chest syndrome. Plan: 1. Acute chest syndrome CXR: moderate cardiomegaly, mild vascular congestion, no infiltrate hgb slight drop at 8.1 down from 8.4, retic count up to 20 from 17 yesterday Plan - Zithromax - Continue NC 2L - Pt does not have hypoxia at present time, but if becomes hypoxic-consider exchange transfusion - Heme consulted- Dr. Palacios- Outpt chelation - Duoneb prn - Hydroxyurea BID - NS@150 - Dilaudid prn pain - Continue to monitor CBC and reticulocyte count - MVI 2. Chronic systolic CHF ECHO 12/2015: LVEF: 40.2%, mild/mod systolic impairment, hypokinesis of left ventricle, mild pulmonary HTN Cardiology consult: continue IV hydration, rocephin, zithromax, lasix if necessary for fluid overload Plan - Continue to follow cardiology recs - lasix if necessary for fluid overload - repeat CXR: decreased lung volume. 3. Cerebral Palsy - Continue Depakote - Continue multivitamin and folic acid 4. Hx of Bipolar disorder - Continue Trazodone (home med) 5. Hx of constipation -miralax, colace -continue to monitor GI ppx: Protonix DVT ppx: SCDs <Jemma Pritchett - Last Filed: 06/13/16 17:41> Objective - Vital Signs/Intake and Output Vital Signs (last 24 hours): Temp Pulse Resp BP Pulse Ox 97.9 F 81 16 112/68 99 06/13/16 12:00 06/13/16 12:00 06/13/16 12:00 06/13/16 12:00 06/13/16 05:54 Intake and Output: 06/13/16 06/13/16 06:59 18:59 Intake Total 3620 Output Total 1200 Balance 2420 - Medications Medications: Current Medications Albuterol/Ipratropium (Duoneb 3 Mg/0.5 Mg (3 Ml) Ud) 3 ml IH Q2H PRN PRN Reason: Shortness of Breath Divalproex Sodium (Depakote Dr (*Bid*)) 250 mg PO BID [facility] PRN Reason: Protocol Last Admin: 06/13/16 11:07 Dose: 250 mg Docusate Sodium (Colace) 100 mg PO BID [facility] Last Admin: 06/13/16 11:07 Dose: 100 mg Folic Acid (Folic Acid) 1 mg PO DAILY [facility] Last Admin: 06/13/16 11:08 Dose: 1 mg Hydromorphone HCl (Dilaudid) 0.5 mg IVP Q4H PRN PRN Reason: Pain, moderate (4-7) Last Admin: 06/11/16 17:52 Dose: 0.5 mg Hydromorphone HCl (Dilaudid) 1 mg IVP Q4H PRN PRN Reason: Pain, severe (8-10) Last Admin: 06/13/16 13:10 Dose: 1 mg Hydroxyurea (Hydrea) 500 mg PO BID [facility] Last Admin: 06/12/16 19:03 Dose: 500 mg Sodium Chloride (Sodium Chloride 0.9%) 1,000 mls @ 150 mls/hr IV .Q6H40M [facility] Last Admin: 06/13/16 11:04 Dose: 150 mls/hr Azithromycin (Zithromax 500mg In Ns) 250 mls @ 167 mls/hr IVPB DAILY [facility] PRN Reason: Protocol Last Admin: 06/13/16 11:06 Dose: 167 mls/hr Ceftriaxone Sodium (Rocephin 1 Gram Ivpb) 100 mls @ 100 mls/hr IVPB DAILY [facility] PRN Reason: Protocol Last Admin: 06/13/16 09:10 Dose: 100 mls/hr Multivitamins/Minerals (Therapeutic-M Tab) 1 tab PO DAILY [facility] Last Admin: 06/13/16 11:08 Dose: 1 tab Ondansetron HCl (Zofran Inj) 4 mg IVP Q4H PRN PRN Reason: Nausea/Vomiting Last Admin: 06/11/16 18:57 Dose: 4 mg Pantoprazole Sodium (Protonix Ec Tab) 40 mg PO ACB [facility] Last Admin: 06/13/16 08:46 Dose: 40 mg Polyethylene Glycol (Miralax) 17 gm PO Q8H [facility] Last Admin: 06/13/16 13:07 Dose: Not Given Trazodone HCl (Desyrel) 25 mg PO HS [facility] Last Admin: 06/12/16 21:19 Dose: 25 mg - Labs Labs: 06/13/16 08:30 06/13/16 06:45 PT 12.0 Seconds (9.9-11.8) H 06/13/16 10:45 INR 1.11 (0.93-1.08) H 06/13/16 10:45 APTT 38.4 Seconds (23.7-30.8) H 06/10/16 19:05 Assessment and Plan - Assessment and Plan (Free Text) Assessment: Attending note: patient seen and examined with resident. This is a 35 year old female with history of sickle cell anemia, cerebral palsy , bipolar disorder who got admitted for evaluation of vaso-occlusive crises/ Acute chest syndrome. continue oxygen, IV fluids, IV Dilaudid. Retic count is improving. Continue hydrea and folic acid. Hematology evaluation appreciated. avoid transfusion secondary to iron overload. chest x-ray showed possible infiltrate vs atelectasis. repeat chest x-ray is negative for infiltrates or CHF. procalcitonin is is negative. Patient is afebrile and nontoxic. on Rocephin and Zithromax. bowel regimen with continue Colace, MiraLAX . Chelation as an outpatient for iron overload is recommended. bipolar disorder; continue medications. Upon discharge patient will follow up with hematology and was PMD . Attending/Attestation - Attestation I have personally seen and examined this patient.: Yes I have fully participated in the care of the patient.: Yes I have reviewed all pertinent clinical information, including history, physical exam and plan: Yes
--- NOTE | 2016-06-13 10:19 | RAD ---
HISTORY: Chest pain, assess for fluid overload COMPARISON: 06/12/2016 FINDINGS: The right MediPort terminates at the cavoatrial junction LUNGS: There are low lung volumes. There is left basilar atelectasis. There is no focal consolidation. PLEURA: No significant pleural effusion identified, no pneumothorax apparent. CARDIOVASCULAR: Normal. OSSEOUS STRUCTURES: No significant abnormalities. VISUALIZED UPPER ABDOMEN: Normal. OTHER FINDINGS: None. IMPRESSION: Right MediPort terminates at the cavoatrial junction. Low lung volumes may be related to poor inspiratory effort. No radiographic evidence for congestive heart failure.
[2016-06-13] MEDS: Azithromycin 500MG/NS 250ml 250 ML IVPB SCH (11:06)
[2016-06-13] MEDS: Divalproex 250 mg DR (BID formulation) PO SCH ×2 (11:07→18:52)
[2016-06-13] MEDS: Multivitamin With Minerals Tab PO SCH (11:08)
[2016-06-13 11:09] LABS: INR 1.11 (0.93-1.08)
--- NOTE | 2016-06-13 14:48 | PN ---
DATE: 06/13/2016 The patient is still experiencing sharp chest pain. Shortness of breath has improved. PHYSICAL EXAMINATION: VITAL SIGNS: Blood pressure 112/68, heart rate 81, temperature 97.9, respirations 16. HEENT: Pale conjunctivae. CHEST: Minimal rhonchi. HEART: S1, S2 regular. EXTREMITIES: No edema. LABORATORIES: Hemoglobin and hematocrit 8.4 and 23.7, white count and platelet count are within norm al limits. Today's retic count is 18.78. SMA-7 today is within normal limits except for BUN of 0.4. ASSESSMENT: 1. Sickle cell crisis. 2. Atypical chest pain. RECOMMENDATIONS: Continue current IV Dilaudid p.r.n. Continue hydroxyurea. Continue IV Rocephin an d IV Zithromax. Continue normal saline infusion at 150 mL an hour. Pedro Luis Deshpande MD cc: [id number] TT: 06/13/2016 14:48:07 Confirmation # [id number] Dictation # [id number] [email or web address]
[2016-06-13] MEDS ORDERED: guaiFENesin 200 mg/10 ml Syrup UD PO PRN (20:51)
[2016-06-14] MEDS: HYDROmorphone 1 mg/ml ISec IVP PRN ×5 (02:18→20:01)
[2016-06-14] MEDS: Sodium Chloride 0.9% 1,000 ML IV SCH ×3 (02:20→20:01)
[2016-06-14] MEDS: POLYETHYLENE GLYCOL 3350 17 GM/Dose PACKET PO SCH ×3 (05:04→20:31)
--- NOTE | 2016-06-14 05:20 | CP.PCM.PN ---
Subjective - Date & Time of Evaluation Date of Evaluation: 06/13/16 Time of Evaluation: 15:00 - Subjective Subjective: Has sharp chest pain Objective - Vital Signs/Intake and Output Vital Signs (last 24 hours): Temp Pulse Resp BP Pulse Ox 98.7 F 84 20 108/80 99 06/13/16 16:00 06/13/16 16:00 06/13/16 16:00 06/13/16 16:00 06/13/16 16:00 Intake and Output: 06/13/16 06/14/16 18:59 06:59 Intake Total 780 Output Total 1750 Balance -970 - Medications Medications: Current Medications Albuterol/Ipratropium (Duoneb 3 Mg/0.5 Mg (3 Ml) Ud) 3 ml IH Q2H PRN PRN Reason: Shortness of Breath Divalproex Sodium (Depakote Dr (*Bid*)) 250 mg PO BID [facility] PRN Reason: Protocol Last Admin: 06/13/16 18:52 Dose: 250 mg Docusate Sodium (Colace) 100 mg PO BID [facility] Last Admin: 06/13/16 18:52 Dose: 100 mg Folic Acid (Folic Acid) 1 mg PO DAILY [facility] Last Admin: 06/13/16 11:08 Dose: 1 mg Guaifenesin (Robitussin) 200 mg PO Q4H PRN PRN Reason: Cough and congestion Last Admin: 06/13/16 21:02 Dose: 200 mg Hydromorphone HCl (Dilaudid) 0.5 mg IVP Q4H PRN PRN Reason: Pain, moderate (4-7) Last Admin: 06/11/16 17:52 Dose: 0.5 mg Hydromorphone HCl (Dilaudid) 1 mg IVP Q4H PRN PRN Reason: Pain, severe (8-10) Last Admin: 06/14/16 02:18 Dose: 1 mg Hydroxyurea (Hydrea) 500 mg PO BID [facility] Last Admin: 06/13/16 18:52 Dose: 500 mg Sodium Chloride (Sodium Chloride 0.9%) 1,000 mls @ 150 mls/hr IV .Q6H40M [facility] Last Admin: 06/14/16 02:20 Dose: 150 mls/hr Azithromycin (Zithromax 500mg In Ns) 250 mls @ 167 mls/hr IVPB DAILY [facility] PRN Reason: Protocol Last Admin: 06/13/16 11:06 Dose: 167 mls/hr Ceftriaxone Sodium (Rocephin 1 Gram Ivpb) 100 mls @ 100 mls/hr IVPB DAILY [facility] PRN Reason: Protocol Last Admin: 06/13/16 09:10 Dose: 100 mls/hr Multivitamins/Minerals (Therapeutic-M Tab) 1 tab PO DAILY [facility] Last Admin: 06/13/16 11:08 Dose: 1 tab Ondansetron HCl (Zofran Inj) 4 mg IVP Q4H PRN PRN Reason: Nausea/Vomiting Last Admin: 06/11/16 18:57 Dose: 4 mg Pantoprazole Sodium (Protonix Ec Tab) 40 mg PO ACB [facility] Last Admin: 06/13/16 08:46 Dose: 40 mg Polyethylene Glycol (Miralax) 17 gm PO Q8H [facility] Last Admin: 06/14/16 05:04 Dose: Not Given Trazodone HCl (Desyrel) 25 mg PO HS [facility] Last Admin: 06/13/16 21:02 Dose: 25 mg - Labs Labs: 06/13/16 08:30 06/13/16 06:45 PT 12.0 Seconds (9.9-11.8) H 06/13/16 10:45 INR 1.11 (0.93-1.08) H 06/13/16 10:45 APTT 38.4 Seconds (23.7-30.8) H 06/10/16 19:05 - Head Exam Head Exam: ATRAUMATIC - Eye Exam Eye Exam: Normal appearance - ENT Exam ENT Exam: Mucous Membranes Dry - Respiratory Exam Respiratory Exam: NORMAL BREATHING PATTERN - Cardiovascular Exam Cardiovascular Exam: +S1, +S2 - GI/Abdominal Exam GI & Abdominal Exam: Normal Bowel Sounds Assessment and Plan (1) Acute chest syndrome Assessment & Plan: stable vital signs IV fluids, folic acid, pain meds, 02 via NC H/H stable Status: Acute (2) Iron overload due to repeated red blood cell transfusions Assessment & Plan: outpatient chelation LFTs elevated Status: Chronic (3) Thrombocytopenia Assessment & Plan: mild, secondary to hydrea Status: Chronic (4) Sickle cell anemia Assessment & Plan: folic acid and hydrea Status: Chronic
[2016-06-14 07:06] LABS: ADD MANUAL DIFF? NO
[2016-06-14 07:10] LABS: BASO # 0.03 K/mm3 (0.0-2.0); BASO % 0.4 % (0.0-3.0); EOS # 0.3 (0.0-0.7); EOS % 3.3 % (1.5-5.0); GRAN # 3.62 (1.4-6.5); GRAN % 44.7 % (50.0-68.0); LYMPH # 3.5 (1.2-3.4); LYMPH % 42.7 % (22.0-35.0); MEAN CELL VOLUME 107.7 fL (80.0-105.0); MEAN CORPUSCULAR HEMOGLOBIN 38.5 pg (25.0-35.0); MEAN CORPUSCULAR HGB CONC 35.7 g/dl (31.0-37.0); MEAN PLATELET VOLUME 9.8 fl (7.0-11.0); MONO # 0.7 (0.1-0.6); MONO % 8.9 % (1.0-6.0); PLATELET COUNT 105 10^3/uL (120.0-450.0); RED CELL DISTRIBUTION WIDTH 27.8 % (11.5-14.5); WHITE BLOOD COUNT 8.1 10^3/ul (4.5-11.0)
[2016-06-14 07:18] LABS: BLOOD UREA NITROGEN 7 mg/dL (7-21); CALCIUM 8.1 mg/dL (8.4-10.5); CARBON DIOXIDE 31 mmol/L (21-33); CHLORIDE 104 mmol/L (98-107); GFR AFRICAN-AMERICAN > 60; GLUCOSE,RANDOM 87 mg/dL (70-110); POTASSIUM 4.3 mmol/L (3.6-5.0); SODIUM 141 mmol/L (132-148)
[2016-06-14 07:31] LABS: RETIC% 15.95 % (0.5-1.5)
[2016-06-14] MEDS: Pantoprazole 40 mg EC Tab PO SCH (08:10)
[2016-06-14] MEDS: Multivitamin With Minerals Tab PO SCH (10:36)
[2016-06-14] MEDS: Divalproex 250 mg DR (BID formulation) PO SCH ×2 (10:36→17:47)
--- NOTE | 2016-06-14 12:24 | CP.PCM.PN ---
<Brandy Galarza - Last Filed: 06/14/16 12:24> Subjective - Date & Time of Evaluation Date of Evaluation: 06/14/16 Time of Evaluation: 08:00 - Subjective Subjective: Hospitalist progress note for Dr. Pritchett Pt s/e at bedside this AM. NAEO. Patient still complains of chest pain, but denies SOB, fevers, chills, nausea, vomiting, diarrhea, constipation, or any other symptoms. Objective - Vital Signs/Intake and Output Vital Signs (last 24 hours): Temp Pulse Resp BP Pulse Ox 98.7 F 84 20 108/80 99 06/13/16 16:00 06/13/16 16:00 06/13/16 16:00 06/13/16 16:00 06/13/16 16:00 Intake and Output: 06/14/16 06/14/16 06:59 18:59 Intake Total 780 0 Output Total 1750 Balance -970 0 - Medications Medications: Current Medications Albuterol/Ipratropium (Duoneb 3 Mg/0.5 Mg (3 Ml) Ud) 3 ml IH Q2H PRN PRN Reason: Shortness of Breath Divalproex Sodium (Depakote Dr (*Bid*)) 250 mg PO BID [facility] PRN Reason: Protocol Last Admin: 06/14/16 10:36 Dose: 250 mg Docusate Sodium (Colace) 100 mg PO BID [facility] Last Admin: 06/14/16 10:36 Dose: 100 mg Folic Acid (Folic Acid) 1 mg PO DAILY [facility] Last Admin: 06/14/16 10:36 Dose: 1 mg Guaifenesin (Robitussin) 200 mg PO Q4H PRN PRN Reason: Cough and congestion Last Admin: 06/13/16 21:02 Dose: 200 mg Hydromorphone HCl (Dilaudid) 0.5 mg IVP Q4H PRN PRN Reason: Pain, moderate (4-7) Last Admin: 06/11/16 17:52 Dose: 0.5 mg Hydromorphone HCl (Dilaudid) 1 mg IVP Q4H PRN PRN Reason: Pain, severe (8-10) Last Admin: 06/14/16 10:36 Dose: 1 mg Hydroxyurea (Hydrea) 500 mg PO BID [facility] Last Admin: 06/14/16 11:15 Dose: 500 mg Sodium Chloride (Sodium Chloride 0.9%) 1,000 mls @ 150 mls/hr IV .Q6H40M [facility] Last Admin: 06/14/16 02:20 Dose: 150 mls/hr Multivitamins/Minerals (Therapeutic-M Tab) 1 tab PO DAILY [facility] Last Admin: 06/14/16 10:36 Dose: 1 tab Ondansetron HCl (Zofran Inj) 4 mg IVP Q4H PRN PRN Reason: Nausea/Vomiting Last Admin: 06/11/16 18:57 Dose: 4 mg Pantoprazole Sodium (Protonix Ec Tab) 40 mg PO ACB [facility] Last Admin: 06/14/16 08:10 Dose: 40 mg Polyethylene Glycol (Miralax) 17 gm PO Q8H [facility] Last Admin: 06/14/16 05:04 Dose: Not Given Trazodone HCl (Desyrel) 25 mg PO HS [facility] Last Admin: 06/13/16 21:02 Dose: 25 mg - Labs Labs: 06/14/16 06:50 06/14/16 06:50 PT 12.0 Seconds (9.9-11.8) H 06/13/16 10:45 INR 1.11 (0.93-1.08) H 06/13/16 10:45 APTT 38.4 Seconds (23.7-30.8) H 06/10/16 19:05 - Constitutional Appears: Well, Non-toxic, No Acute Distress - Head Exam Head Exam: ATRAUMATIC, NORMOCEPHALIC - Eye Exam Eye Exam: Normal appearance. absent: Conjunctival injection, Scleral icterus - ENT Exam ENT Exam: Mucous Membranes Moist, Normal Oropharynx - Respiratory Exam Respiratory Exam: Clear to Ausculation Bilateral. absent: Accessory Muscle Use , Rales, Rhonchi, Wheezes, Respiratory Distress - Cardiovascular Exam Cardiovascular Exam: RRR, +S1, +S2. absent: Murmur - GI/Abdominal Exam GI & Abdominal Exam: Distended (mild distention), Soft. absent: Tenderness - Extremities Exam Extremities Exam: absent: Calf Tenderness, Pedal Edema, Tenderness - Neurological Exam Neurological Exam: Altered (lethargic), Awake, Oriented x3 - Psychiatric Exam Psychiatric exam: Flat Affect, Normal Mood - Skin Skin Exam: Dry, Intact, Normal Color, Warm Assessment and Plan - Assessment and Plan (Free Text) Assessment: This is a 35Y F with PMH sickle cell, cerebral palsy, asthma, HTN and bipolar disorder admitted for acute chest syndrome. Plan: 1. Acute chest syndrome CXR: moderate cardiomegaly, mild vascular congestion, no infiltrate hgb 7.4 this AM, retic count up to 15 down from 18 yesterday procalcitonin <0.05 Plan - D/C Zithromax - Continue NC 2L - Hold transfusion until hgb <7.0 - Heme consulted- Dr. Palacios- Outpt chelation - Duoneb prn - Hydroxyurea BID - NS@150--decrease tomorrow - Dilaudid prn pain - Continue to monitor CBC and reticulocyte count - MVI 2. Chronic systolic CHF ECHO 12/2015: LVEF: 40.2%, mild/mod systolic impairment, hypokinesis of left ventricle, mild pulmonary HTN Cardiology consult: continue IV hydration, rocephin, zithromax, lasix if necessary for fluid overload Plan - Continue to follow cardiology recs - lasix if necessary for fluid overload - Decrease IVF tomorrow if reticulocyte count continues to decrease 3. Cerebral Palsy - Continue Depakote - Continue multivitamin and folic acid 4. Hx of Bipolar disorder - Continue Trazodone (home med) 5. Hx of constipation -miralax, colace -continue to monitor GI ppx: Protonix DVT ppx: SCDs Patient <Jemma Pritchett - Last Filed: 06/14/16 15:03> Objective - Vital Signs/Intake and Output Vital Signs (last 24 hours): Temp Pulse Resp BP Pulse Ox 98.7 F 84 20 108/80 99 06/13/16 16:00 06/13/16 16:00 06/13/16 16:00 06/13/16 16:00 06/13/16 16:00 Intake and Output: 06/14/16 06/14/16 06:59 18:59 Intake Total 780 0 Output Total 1750 Balance -970 0 - Medications Medications: Current Medications Albuterol/Ipratropium (Duoneb 3 Mg/0.5 Mg (3 Ml) Ud) 3 ml IH Q2H PRN PRN Reason: Shortness of Breath Divalproex Sodium (Depakote Dr (*Bid*)) 250 mg PO BID [facility] PRN Reason: Protocol Last Admin: 06/14/16 10:36 Dose: 250 mg Docusate Sodium (Colace) 100 mg PO BID [facility] Last Admin: 06/14/16 10:36 Dose: 100 mg Folic Acid (Folic Acid) 1 mg PO DAILY [facility] Last Admin: 06/14/16 10:36 Dose: 1 mg Guaifenesin (Robitussin) 200 mg PO Q4H PRN PRN Reason: Cough and congestion Last Admin: 06/13/16 21:02 Dose: 200 mg Hydromorphone HCl (Dilaudid) 0.5 mg IVP Q4H PRN PRN Reason: Pain, moderate (4-7) Last Admin: 06/14/16 12:40 Dose: 0.5 mg Hydromorphone HCl (Dilaudid) 1 mg IVP Q4H PRN PRN Reason: Pain, severe (8-10) Last Admin: 06/14/16 10:36 Dose: 1 mg Hydroxyurea (Hydrea) 500 mg PO BID [facility] Last Admin: 06/14/16 11:15 Dose: 500 mg Sodium Chloride (Sodium Chloride 0.9%) 1,000 mls @ 150 mls/hr IV .Q6H40M [facility] Last Admin: 06/14/16 02:20 Dose: 150 mls/hr Multivitamins/Minerals (Therapeutic-M Tab) 1 tab PO DAILY [facility] Last Admin: 06/14/16 10:36 Dose: 1 tab Ondansetron HCl (Zofran Inj) 4 mg IVP Q4H PRN PRN Reason: Nausea/Vomiting Last Admin: 06/11/16 18:57 Dose: 4 mg Pantoprazole Sodium (Protonix Ec Tab) 40 mg PO ACB [facility] Last Admin: 06/14/16 08:10 Dose: 40 mg Polyethylene Glycol (Miralax) 17 gm PO Q8H [facility] Last Admin: 06/14/16 12:31 Dose: Not Given Trazodone HCl (Desyrel) 25 mg PO HS [facility] Last Admin: 06/13/16 21:02 Dose: 25 mg - Labs Labs: 06/14/16 06:50 06/14/16 06:50 PT 12.0 Seconds (9.9-11.8) H 06/13/16 10:45 INR 1.11 (0.93-1.08) H 06/13/16 10:45 APTT 38.4 Seconds (23.7-30.8) H 06/10/16 19:05 Assessment and Plan - Assessment and Plan (Free Text) Assessment: Attending note: patient seen and examined with resident. This is a 35 year old female with history of sickle cell anemia, cerebral palsy , bipolar disorder who got admitted for evaluation of vaso-occlusive crises/ Acute chest syndrome. continue oxygen, IV fluids, IV Dilaudid. Retic count is improving. hb is 7.5. Continue hydrea and folic acid. Hematology evaluation appreciated. avoid transfusion secondary to iron overload. bowel regimen with continue Colace, MiraLAX . Chelation as an outpatient for iron overload is recommended. bipolar disorder; continue medications. Upon discharge patient will follow up with hematology and was PMD . Attending/Attestation - Attestation I have personally seen and examined this patient.: Yes I have fully participated in the care of the patient.: Yes I have reviewed all pertinent clinical information, including history, physical exam and plan: Yes
[2016-06-14] MEDS: HYDROmorphone 0.5 mg/0.5 ml ISec IVP PRN ×2 (12:40→17:56)
[2016-06-14] MEDS: DiphenhydrAMINE 50 mg/ml Inj IVP PRN (18:20)
--- NOTE | 2016-06-14 18:36 | PN ---
DATE: 06/14/2016 The patient complains of sharp chest pain upon breathing. She denies any abdominal pain, denies any dizziness. PHYSICAL EXAMINATION: VITAL SIGNS: Blood pressure 108/80, heart rate 84, temperature 98.7, respirations 20. HEENT: Pale conjunctivae. CHEST: Minimal rhonchi. HEART: S1, S2 regular. EXTREMITIES: No edema. LABORATORIES: Hemoglobin and hematocrit are 7.5 and 21.0, platelet count is 105,000. Retic count to day is 15.95. Today's SMA-7 is within normal limits except for creatinine of 0.4. ASSESSMENT: 1. Atypical chest pain, myocardial infarction is ruled out. 2. Sickle cell anemia as well as crisis. RECOMMENDATIONS: Continue current IV hydration. Continue folic acid, hydroxyurea and p.r.n. IV Dila udid. Pedro Luis Deshpande MD cc: [id number] TT: 06/14/2016 18:35:03 Confirmation # [id number] Dictation # [id number] mn
[2016-06-15] MEDS: HYDROmorphone 1 mg/ml ISec IVP PRN ×4 (03:30→17:42)
[2016-06-15] MEDS: POLYETHYLENE GLYCOL 3350 17 GM/Dose PACKET PO SCH ×3 (04:17→21:24)
[2016-06-15 06:48] LABS: ADD MANUAL DIFF? NO
[2016-06-15 06:49] LABS: BASO # 0.03 K/mm3 (0.0-2.0); BASO % 0.4 % (0.0-3.0); EOS # 0.3 (0.0-0.7); EOS % 3.4 % (1.5-5.0); GRAN # 3.69 (1.4-6.5); GRAN % 45.9 % (50.0-68.0); LYMPH # 3.3 (1.2-3.4); LYMPH % 40.5 % (22.0-35.0); MEAN CELL VOLUME 106.5 fL (80.0-105.0); MEAN CORPUSCULAR HEMOGLOBIN 38.5 pg (25.0-35.0); MEAN CORPUSCULAR HGB CONC 36.2 g/dl (31.0-37.0); MEAN PLATELET VOLUME 9.7 fl (7.0-11.0); MONO # 0.8 (0.1-0.6); MONO % 9.8 % (1.0-6.0); PLATELET COUNT 94 10^3/uL (120.0-450.0); RED CELL DISTRIBUTION WIDTH 27.8 % (11.5-14.5)
[2016-06-15 06:51] LABS: HEMATOCRIT 21.3 % (36.0-48.0)
[2016-06-15 06:53] LABS: RETIC% 13.22 % (0.5-1.5)
[2016-06-15 07:02] LABS: BLOOD UREA NITROGEN 8 mg/dL (7-21); CALCIUM 8.4 mg/dL (8.4-10.5); CARBON DIOXIDE 32 mmol/L (21-33); CHLORIDE 104 mmol/L (98-107); GFR AFRICAN-AMERICAN > 60; GLUCOSE,RANDOM 82 mg/dL (70-110); POTASSIUM 4.2 mmol/L (3.6-5.0); SODIUM 142 mmol/L (132-148)
[2016-06-15] MEDS: Pantoprazole 40 mg EC Tab PO SCH (07:44)
[2016-06-15] MEDS: Divalproex 250 mg DR (BID formulation) PO SCH ×2 (10:05→17:42)
[2016-06-15] MEDS: Enoxaparin 30 mg Syringe SC SCH (10:05)
[2016-06-15] MEDS: Multivitamin With Minerals Tab PO SCH (10:05)
[2016-06-15] MEDS: Sodium Chloride 0.9% 1,000 ML IV SCH (10:06)
[2016-06-15] MEDS: HYDROmorphone 0.5 mg/0.5 ml ISec IVP PRN ×3 (10:10→21:24)
--- NOTE | 2016-06-15 11:17 | CP.PCM.PN ---
<Elisha Mace - Last Filed: 06/15/16 11:08> Subjective - Date & Time of Evaluation Date of Evaluation: 06/15/16 Time of Evaluation: 11:08 - Subjective Subjective: HOSPITALIST PROGRESS NOTE Pt seen and examined at bedside. No acute events overnight. Patient is tolerating Pt continues to c/o of chest pain. Denies having any SOB, abd pain, N/V/D/C, fevers or chills. Objective - Vital Signs/Intake and Output Vital Signs (last 24 hours): Temp Pulse Resp BP Pulse Ox 98.7 F 71 20 134/84 100 06/15/16 07:55 06/15/16 07:55 06/15/16 07:55 06/15/16 07:55 06/15/16 07:55 Intake and Output: 06/15/16 06/15/16 06:59 18:59 Intake Total 660 120 Output Total 1050 Balance -390 120 - Medications Medications: Current Medications Albuterol/Ipratropium (Duoneb 3 Mg/0.5 Mg (3 Ml) Ud) 3 ml IH Q2H PRN PRN Reason: Shortness of Breath Diphenhydramine HCl (Benadryl) 25 mg IVP Q4H PRN PRN Reason: Allergy symptoms Last Admin: 06/14/16 18:20 Dose: 25 mg Divalproex Sodium (Depakote Dr (*Bid*)) 250 mg PO BID [facility] PRN Reason: Protocol Last Admin: 06/15/16 10:05 Dose: 250 mg Docusate Sodium (Colace) 100 mg PO BID [facility] Last Admin: 06/15/16 10:05 Dose: 100 mg Enoxaparin Sodium (Lovenox) 30 mg SC DAILY [facility] PRN Reason: Protocol Last Admin: 06/15/16 10:05 Dose: 30 mg Folic Acid (Folic Acid) 1 mg PO DAILY [facility] Last Admin: 06/15/16 10:05 Dose: 1 mg Guaifenesin (Robitussin) 200 mg PO Q4H PRN PRN Reason: Cough and congestion Last Admin: 06/13/16 21:02 Dose: 200 mg Hydromorphone HCl (Dilaudid) 0.5 mg IVP Q4H PRN PRN Reason: Pain, moderate (4-7) Last Admin: 06/15/16 10:10 Dose: 0.5 mg Hydromorphone HCl (Dilaudid) 1 mg IVP Q4H PRN PRN Reason: Pain, severe (8-10) Last Admin: 06/15/16 07:41 Dose: 1 mg Hydroxyurea (Hydrea) 500 mg PO BID [facility] Last Admin: 06/15/16 10:09 Dose: 500 mg Sodium Chloride (Sodium Chloride 0.9%) 1,000 mls @ 125 mls/hr IV .Q8H [facility] Last Admin: 06/15/16 10:06 Dose: 125 mls/hr Multivitamins/Minerals (Therapeutic-M Tab) 1 tab PO DAILY [facility] Last Admin: 06/15/16 10:05 Dose: 1 tab Ondansetron HCl (Zofran Inj) 4 mg IVP Q4H PRN PRN Reason: Nausea/Vomiting Last Admin: 06/11/16 18:57 Dose: 4 mg Pantoprazole Sodium (Protonix Ec Tab) 40 mg PO ACB [facility] Last Admin: 06/15/16 07:44 Dose: 40 mg Polyethylene Glycol (Miralax) 17 gm PO Q8H [facility] Last Admin: 06/15/16 04:17 Dose: Not Given Trazodone HCl (Desyrel) 25 mg PO HS [facility] Last Admin: 06/14/16 21:05 Dose: 25 mg - Labs Labs: 06/15/16 06:46 06/15/16 06:46 PT 12.0 Seconds (9.9-11.8) H 06/13/16 10:45 INR 1.11 (0.93-1.08) H 06/13/16 10:45 APTT 38.4 Seconds (23.7-30.8) H 06/10/16 19:05 - Constitutional Appears: Non-toxic, No Acute Distress - Head Exam Head Exam: ATRAUMATIC - Eye Exam Eye Exam: EOMI - Respiratory Exam Respiratory Exam: Clear to Ausculation Bilateral, NORMAL BREATHING PATTERN. absent: Rales, Rhonchi, Wheezes - Cardiovascular Exam Cardiovascular Exam: REGULAR RHYTHM, +S1, +S2. absent: Gallop, Rubs, Murmur - GI/Abdominal Exam GI & Abdominal Exam: Soft. absent: Distended, Firm, Guarding, Rigid, Tenderness , Normal Bowel Sounds - Extremities Exam Extremities Exam: absent: Calf Tenderness, Pedal Edema - Neurological Exam Neurological Exam: Alert, Awake, Oriented x3 - Psychiatric Exam Psychiatric exam: Normal Affect, Normal Mood - Skin Skin Exam: Dry, Intact, Normal Color, Warm Assessment and Plan - Assessment and Plan (Free Text) Assessment: This is a 35Y F with PMH sickle cell, cerebral palsy, asthma, HTN and bipolar disorder admitted for acute chest syndrome. Plan: 1. Acute chest syndrome CXR: moderate cardiomegaly, mild vascular congestion, no infiltrate Hgb stable today. retic count 13.22 down from 15 yesterday procalcitonin <0.05 Plan - Continue NC 2L - Hold transfusion until hgb <7.0 - Heme consulted- Dr. Bai- Outpt chelation - Duoneb prn - Hydroxyurea BID, folic acid qd - NS@125 - Dilaudid prn pain - Continue to monitor CBC and reticulocyte count - MVI 2. Chronic systolic CHF ECHO 12/2015: LVEF: 40.2%, mild/mod systolic impairment, hypokinesis of left ventricle, mild pulmonary HTN Cardiology consult: continue IV hydration, rocephin, zithromax, lasix if necessary for fluid overload Plan - Continue to follow cardiology recs - lasix if necessary for fluid overload - Decrease IVF tomorrow if reticulocyte count continues to decrease 3. Cerebral Palsy - Continue Depakote - Continue multivitamin and folic acid 4. Hx of Bipolar disorder - Continue Trazodone (home med) 5. Hx of constipation -miralax, colace -continue to monitor GI ppx: Protonix DVT ppx: SCDs Case discussed with attending Dr. Pritchett <Jemma Pritchett - Last Filed: 06/15/16 13:28> Objective - Vital Signs/Intake and Output Vital Signs (last 24 hours): Temp Pulse Resp BP Pulse Ox 98.7 F 71 20 134/84 100 06/15/16 07:55 06/15/16 07:55 06/15/16 07:55 06/15/16 07:55 06/15/16 07:55 Intake and Output: 06/15/16 06/15/16 06:59 18:59 Intake Total 660 120 Output Total 1050 Balance -390 120 - Medications Medications: Current Medications Albuterol/Ipratropium (Duoneb 3 Mg/0.5 Mg (3 Ml) Ud) 3 ml IH Q2H PRN PRN Reason: Shortness of Breath Diphenhydramine HCl (Benadryl) 25 mg IVP Q4H PRN PRN Reason: Allergy symptoms Last Admin: 06/14/16 18:20 Dose: 25 mg Divalproex Sodium (Depakote Dr (*Bid*)) 250 mg PO BID [facility] PRN Reason: Protocol Last Admin: 06/15/16 10:05 Dose: 250 mg Docusate Sodium (Colace) 100 mg PO BID [facility] Last Admin: 06/15/16 10:05 Dose: 100 mg Enoxaparin Sodium (Lovenox) 30 mg SC DAILY [facility] PRN Reason: Protocol Last Admin: 06/15/16 10:05 Dose: 30 mg Folic Acid (Folic Acid) 1 mg PO DAILY [facility] Last Admin: 06/15/16 10:05 Dose: 1 mg Guaifenesin (Robitussin) 200 mg PO Q4H PRN PRN Reason: Cough and congestion Last Admin: 06/13/16 21:02 Dose: 200 mg Hydromorphone HCl (Dilaudid) 0.5 mg IVP Q4H PRN PRN Reason: Pain, moderate (4-7) Last Admin: 06/15/16 10:10 Dose: 0.5 mg Hydromorphone HCl (Dilaudid) 1 mg IVP Q4H PRN PRN Reason: Pain, severe (8-10) Last Admin: 06/15/16 13:04 Dose: 1 mg Hydroxyurea (Hydrea) 500 mg PO BID [facility] Last Admin: 06/15/16 10:09 Dose: 500 mg Sodium Chloride (Sodium Chloride 0.9%) 1,000 mls @ 125 mls/hr IV .Q8H [facility] Last Admin: 06/15/16 10:06 Dose: 125 mls/hr Multivitamins/Minerals (Therapeutic-M Tab) 1 tab PO DAILY [facility] Last Admin: 06/15/16 10:05 Dose: 1 tab Ondansetron HCl (Zofran Inj) 4 mg IVP Q4H PRN PRN Reason: Nausea/Vomiting Last Admin: 06/11/16 18:57 Dose: 4 mg Pantoprazole Sodium (Protonix Ec Tab) 40 mg PO ACB [facility] Last Admin: 06/15/16 07:44 Dose: 40 mg Polyethylene Glycol (Miralax) 17 gm PO Q8H [facility] Last Admin: 06/15/16 04:17 Dose: Not Given Trazodone HCl (Desyrel) 25 mg PO HS [facility] Last Admin: 06/14/16 21:05 Dose: 25 mg - Labs Labs: 06/15/16 06:46 06/15/16 06:46 PT 12.0 Seconds (9.9-11.8) H 06/13/16 10:45 INR 1.11 (0.93-1.08) H 06/13/16 10:45 APTT 38.4 Seconds (23.7-30.8) H 06/10/16 19:05 Assessment and Plan - Assessment and Plan (Free Text) Assessment: Attending note: patient seen and examined with resident. This is a 35 year old female with history of sickle cell anemia, cerebral palsy , bipolar disorder who got admitted for evaluation of vaso-occlusive crises/ Acute chest syndrome. continue oxygen, IV fluids, IV Dilaudid. Retic count is improving. hb is 7.7. retic count is 13. Continue hydrea and folic acid. . avoid transfusion secondary to iron overload. Case discussed with hematology dr. bai in detail. bowel regimen with continue Colace, MiraLAX . Chelation as an outpatient for iron overload is recommended. bipolar disorder; continue medications. Upon discharge patient will follow up with hematology and was PMD . Attending/Attestation - Attestation I have personally seen and examined this patient.: Yes I have fully participated in the care of the patient.: Yes I have reviewed all pertinent clinical information, including history, physical exam and plan: Yes
--- NOTE | 2016-06-15 18:39 | CP.PCM.PN ---
Subjective - Date & Time of Evaluation Date of Evaluation: 06/15/16 Time of Evaluation: 17:00 - Subjective Subjective: Still having chest pain but appears more comfortable Objective - Vital Signs/Intake and Output Vital Signs (last 24 hours): Temp Pulse Resp BP Pulse Ox 98.6 F 87 19 101/67 96 06/15/16 16:40 06/15/16 16:40 06/15/16 16:40 06/15/16 16:40 06/15/16 16:40 Intake and Output: 06/15/16 06/15/16 06:59 18:59 Intake Total 660 840 Output Total 1050 Balance -390 840 - Medications Medications: Current Medications Albuterol/Ipratropium (Duoneb 3 Mg/0.5 Mg (3 Ml) Ud) 3 ml IH Q2H PRN PRN Reason: Shortness of Breath Diphenhydramine HCl (Benadryl) 25 mg IVP Q4H PRN PRN Reason: Allergy symptoms Last Admin: 06/14/16 18:20 Dose: 25 mg Divalproex Sodium (Depakote Dr (*Bid*)) 250 mg PO BID [facility] PRN Reason: Protocol Last Admin: 06/15/16 17:42 Dose: 250 mg Docusate Sodium (Colace) 100 mg PO BID [facility] Last Admin: 06/15/16 17:42 Dose: 100 mg Enoxaparin Sodium (Lovenox) 30 mg SC DAILY [facility] PRN Reason: Protocol Last Admin: 06/15/16 10:05 Dose: 30 mg Folic Acid (Folic Acid) 1 mg PO DAILY [facility] Last Admin: 06/15/16 10:05 Dose: 1 mg Guaifenesin (Robitussin) 200 mg PO Q4H PRN PRN Reason: Cough and congestion Last Admin: 06/13/16 21:02 Dose: 200 mg Hydromorphone HCl (Dilaudid) 0.5 mg IVP Q4H PRN PRN Reason: Pain, moderate (4-7) Last Admin: 06/15/16 16:05 Dose: 0.5 mg Hydromorphone HCl (Dilaudid) 1 mg IVP Q4H PRN PRN Reason: Pain, severe (8-10) Last Admin: 06/15/16 17:42 Dose: 1 mg Hydroxyurea (Hydrea) 500 mg PO BID [facility] Last Admin: 06/15/16 17:43 Dose: 500 mg Sodium Chloride (Sodium Chloride 0.9%) 1,000 mls @ 125 mls/hr IV .Q8H [facility] Last Admin: 06/15/16 10:06 Dose: 125 mls/hr Multivitamins/Minerals (Therapeutic-M Tab) 1 tab PO DAILY [facility] Last Admin: 06/15/16 10:05 Dose: 1 tab Ondansetron HCl (Zofran Inj) 4 mg IVP Q4H PRN PRN Reason: Nausea/Vomiting Last Admin: 06/11/16 18:57 Dose: 4 mg Pantoprazole Sodium (Protonix Ec Tab) 40 mg PO ACB [facility] Last Admin: 06/15/16 07:44 Dose: 40 mg Polyethylene Glycol (Miralax) 17 gm PO Q8H [facility] Last Admin: 06/15/16 14:53 Dose: Not Given Trazodone HCl (Desyrel) 25 mg PO HS [facility] Last Admin: 06/14/16 21:05 Dose: 25 mg - Labs Labs: 06/15/16 06:46 06/15/16 06:46 PT 12.0 Seconds (9.9-11.8) H 06/13/16 10:45 INR 1.11 (0.93-1.08) H 06/13/16 10:45 APTT 38.4 Seconds (23.7-30.8) H 06/10/16 19:05 - Head Exam Head Exam: ATRAUMATIC - ENT Exam ENT Exam: Mucous Membranes Dry - Respiratory Exam Respiratory Exam: NORMAL BREATHING PATTERN - Cardiovascular Exam Cardiovascular Exam: +S1, +S2 - GI/Abdominal Exam GI & Abdominal Exam: Normal Bowel Sounds Assessment and Plan (1) Acute chest syndrome Assessment & Plan: IV fluids, pain meds, folic acid, o2 via NC vital stable Status: Acute (2) Iron overload due to repeated red blood cell transfusions Assessment & Plan: minimize transfusion support outpatient chelation Status: Chronic (3) Thrombocytopenia Assessment & Plan: secondary to hydrea Status: Chronic (4) Sickle cell anemia Assessment & Plan: outpatient folic acid and hydrea Status: Chronic
[2016-06-15] MEDS: DiphenhydrAMINE 50 mg/ml Inj IVP PRN (21:23)
[2016-06-16] MEDS: HYDROmorphone 1 mg/ml ISec IVP PRN ×6 (00:50→21:04)
[2016-06-16] MEDS: HYDROmorphone 0.5 mg/0.5 ml ISec IVP PRN (02:49)
[2016-06-16] MEDS: Sodium Chloride 0.9% 1,000 ML IV SCH ×2 (03:56→09:53)
[2016-06-16] MEDS: DiphenhydrAMINE 50 mg/ml Inj IVP PRN ×4 (04:01→17:07)
[2016-06-16] MEDS: POLYETHYLENE GLYCOL 3350 17 GM/Dose PACKET PO SCH ×3 (06:04→22:00)
[2016-06-16 06:17] LABS: BASO # 0.03 K/mm3 (0.0-2.0); BASO % 0.4 % (0.0-3.0); EOS # 0.3 (0.0-0.7); EOS % 3.2 % (1.5-5.0); GRAN # 3.31 (1.4-6.5); GRAN % 39.3 % (50.0-68.0); LYMPH # 4.1 (1.2-3.4); LYMPH % 48.5 % (22.0-35.0); MEAN CORPUSCULAR HEMOGLOBIN 38.3 pg (25.0-35.0); MEAN CORPUSCULAR HGB CONC 36.1 g/dl (31.0-37.0); MEAN PLATELET VOLUME 9.4 fl (7.0-11.0); MONO # 0.7 (0.1-0.6); MONO % 8.6 % (1.0-6.0); PLATELET COUNT 77 10^3/uL (120.0-450.0); WHITE BLOOD COUNT 8.4 10^3/ul (4.5-11.0)
[2016-06-16 06:26] LABS: HEMATOCRIT 19.4 % (36.0-48.0); RETIC% 14.34 % (0.5-1.5)
[2016-06-16 06:27] LABS: BLOOD UREA NITROGEN 7 mg/dL (7-21); CALCIUM 8.2 mg/dL (8.4-10.5); CARBON DIOXIDE 31 mmol/L (21-33); CHLORIDE 102 mmol/L (95-110); GFR AFRICAN-AMERICAN > 60; GLUCOSE,RANDOM 87 mg/dL (70-110); SODIUM 140 mmol/L (132-148)
[2016-06-16 06:58] LABS: ADD MANUAL DIFF? NO
[2016-06-16] MEDS: Pantoprazole 40 mg EC Tab PO SCH (08:04)
[2016-06-16] MEDS: Multivitamin With Minerals Tab PO SCH (09:52)
[2016-06-16] MEDS: Enoxaparin 30 mg Syringe SC SCH (09:52)
[2016-06-16] MEDS: Divalproex 250 mg DR (BID formulation) PO SCH ×2 (09:52→17:08)
--- NOTE | 2016-06-16 10:25 | CP.PCM.PN ---
<Elisha Mace - Last Filed: 06/16/16 10:21> Subjective - Date & Time of Evaluation Date of Evaluation: 06/16/16 Time of Evaluation: 10:50 - Subjective Subjective: HOSPITALIST PROGRESS NOTE Pt seen and exmained. resting comfortably. No acute events overnight. Denies having any Cp, SOB, abd pain. tolerating diet. Objective - Vital Signs/Intake and Output Vital Signs (last 24 hours): Temp Pulse Resp BP Pulse Ox 98.6 F 87 19 101/67 96 06/15/16 16:40 06/15/16 16:40 06/15/16 16:40 06/15/16 16:40 06/15/16 16:40 - Medications Medications: Current Medications Albuterol/Ipratropium (Duoneb 3 Mg/0.5 Mg (3 Ml) Ud) 3 ml IH Q2H PRN PRN Reason: Shortness of Breath Diphenhydramine HCl (Benadryl) 25 mg IVP Q8 PRN PRN Reason: Allergy symptoms Divalproex Sodium (Depakote Dr (*Bid*)) 250 mg PO BID [facility] PRN Reason: Protocol Last Admin: 06/16/16 09:52 Dose: 250 mg Docusate Sodium (Colace) 100 mg PO BID [facility] Last Admin: 06/16/16 09:52 Dose: 100 mg Enoxaparin Sodium (Lovenox) 30 mg SC DAILY [facility] PRN Reason: Protocol Last Admin: 06/16/16 09:52 Dose: 30 mg Folic Acid (Folic Acid) 1 mg PO DAILY [facility] Last Admin: 06/16/16 09:53 Dose: 1 mg Guaifenesin (Robitussin) 200 mg PO Q4H PRN PRN Reason: Cough and congestion Last Admin: 06/13/16 21:02 Dose: 200 mg Hydromorphone HCl (Dilaudid) 0.5 mg IVP Q4H PRN PRN Reason: Pain, moderate (4-7) Last Admin: 06/16/16 02:49 Dose: 0.5 mg Hydromorphone HCl (Dilaudid) 1 mg IVP Q4H PRN PRN Reason: Pain, severe (8-10) Last Admin: 06/16/16 08:04 Dose: 1 mg Hydroxyurea (Hydrea) 500 mg PO BID [facility] Last Admin: 06/15/16 17:43 Dose: 500 mg Sodium Chloride (Sodium Chloride 0.9%) 1,000 mls @ 150 mls/hr IV .Q6H40M [facility] Last Admin: 06/16/16 09:53 Dose: 150 mls/hr Multivitamins/Minerals (Therapeutic-M Tab) 1 tab PO DAILY [facility] Last Admin: 06/16/16 09:52 Dose: 1 tab Ondansetron HCl (Zofran Inj) 4 mg IVP Q4H PRN PRN Reason: Nausea/Vomiting Last Admin: 06/11/16 18:57 Dose: 4 mg Pantoprazole Sodium (Protonix Ec Tab) 40 mg PO ACB [facility] Last Admin: 06/16/16 08:04 Dose: 40 mg Polyethylene Glycol (Miralax) 17 gm PO Q8H [facility] Last Admin: 06/16/16 06:04 Dose: Not Given Trazodone HCl (Desyrel) 25 mg PO HS [facility] Last Admin: 06/15/16 21:24 Dose: 25 mg - Labs Labs: 06/16/16 06:10 06/16/16 06:10 PT 12.0 Seconds (9.9-11.8) H 06/13/16 10:45 INR 1.11 (0.93-1.08) H 06/13/16 10:45 APTT 38.4 Seconds (23.7-30.8) H 06/10/16 19:05 - Constitutional Appears: Non-toxic, No Acute Distress - Head Exam Head Exam: ATRAUMATIC - Respiratory Exam Respiratory Exam: Clear to Ausculation Bilateral. absent: Rales, Rhonchi, Wheezes - Cardiovascular Exam Cardiovascular Exam: REGULAR RHYTHM, +S1, +S2. absent: Gallop, Rubs, Murmur - GI/Abdominal Exam GI & Abdominal Exam: Soft. absent: Distended, Firm, Guarding, Rigid, Tenderness - Skin Skin Exam: Dry, Intact, Warm Assessment and Plan - Assessment and Plan (Free Text) Assessment: This is a 35Y F with PMH sickle cell, cerebral palsy, asthma, HTN and bipolar disorder admitted for acute chest syndrome. Plan: 1. Acute chest syndrome CXR: moderate cardiomegaly, mild vascular congestion, no infiltrate Hgb decreased from 7.7 to 7.0. Retic count increased from 13.22 to 14.34 procalcitonin <0.05 Plan - Continue NC 2L - Hold transfusion until hgb <7.0. will order type and cross. will also check hepatitis panel. - Heme consulted- Dr. Bai- Outpt chelation - Duoneb prn - Hydroxyurea BID (hold), folic acid qd - NS@150 - Dilaudid prn pain - Continue to monitor CBC and reticulocyte count - MVI 2. Chronic systolic CHF ECHO 12/2015: LVEF: 40.2%, mild/mod systolic impairment, hypokinesis of left ventricle, mild pulmonary HTN Cardiology consult: continue IV hydration, rocephin, zithromax, lasix if necessary for fluid overload Plan - Continue to follow cardiology recs - lasix if necessary for fluid overload - Decrease IVF tomorrow if reticulocyte count continues to decrease 3. Cerebral Palsy - Continue Depakote - Continue multivitamin and folic acid 4. Hx of Bipolar disorder - Continue Trazodone (home med) 5. Hx of constipation -miralax, colace -continue to monitor GI ppx: Protonix DVT ppx: SCDs Case discussed with attending Dr. Pritchett <Jemma Pritchett - Last Filed: 06/16/16 10:58> Objective - Vital Signs/Intake and Output Vital Signs (last 24 hours): Temp Pulse Resp BP Pulse Ox 98.6 F 87 19 101/67 96 06/15/16 16:40 06/15/16 16:40 06/15/16 16:40 06/15/16 16:40 06/15/16 16:40 - Medications Medications: Current Medications Albuterol/Ipratropium (Duoneb 3 Mg/0.5 Mg (3 Ml) Ud) 3 ml IH Q2H PRN PRN Reason: Shortness of Breath Diphenhydramine HCl (Benadryl) 25 mg IVP Q8 PRN PRN Reason: Allergy symptoms Divalproex Sodium (Depakote Dr (*Bid*)) 250 mg PO BID [facility] PRN Reason: Protocol Last Admin: 06/16/16 09:52 Dose: 250 mg Docusate Sodium (Colace) 100 mg PO BID [facility] Last Admin: 06/16/16 09:52 Dose: 100 mg Enoxaparin Sodium (Lovenox) 30 mg SC DAILY [facility] PRN Reason: Protocol Last Admin: 06/16/16 09:52 Dose: 30 mg Folic Acid (Folic Acid) 1 mg PO DAILY [facility] Last Admin: 06/16/16 09:53 Dose: 1 mg Guaifenesin (Robitussin) 200 mg PO Q4H PRN PRN Reason: Cough and congestion Last Admin: 06/13/16 21:02 Dose: 200 mg Hydromorphone HCl (Dilaudid) 0.5 mg IVP Q4H PRN PRN Reason: Pain, moderate (4-7) Last Admin: 06/16/16 02:49 Dose: 0.5 mg Hydromorphone HCl (Dilaudid) 1 mg IVP Q4H PRN PRN Reason: Pain, severe (8-10) Last Admin: 06/16/16 08:04 Dose: 1 mg Hydroxyurea (Hydrea) 500 mg PO BID [facility] Last Admin: 06/15/16 17:43 Dose: 500 mg Sodium Chloride (Sodium Chloride 0.9%) 1,000 mls @ 150 mls/hr IV .Q6H40M [facility] Last Admin: 06/16/16 09:53 Dose: 150 mls/hr Multivitamins/Minerals (Therapeutic-M Tab) 1 tab PO DAILY [facility] Last Admin: 06/16/16 09:52 Dose: 1 tab Ondansetron HCl (Zofran Inj) 4 mg IVP Q4H PRN PRN Reason: Nausea/Vomiting Last Admin: 06/11/16 18:57 Dose: 4 mg Pantoprazole Sodium (Protonix Ec Tab) 40 mg PO ACB [facility] Last Admin: 06/16/16 08:04 Dose: 40 mg Polyethylene Glycol (Miralax) 17 gm PO Q8H [facility] Last Admin: 06/16/16 06:04 Dose: Not Given Trazodone HCl (Desyrel) 25 mg PO HS [facility] Last Admin: 06/15/16 21:24 Dose: 25 mg - Labs Labs: 06/16/16 06:10 06/16/16 06:10 PT 12.0 Seconds (9.9-11.8) H 06/13/16 10:45 INR 1.11 (0.93-1.08) H 06/13/16 10:45 APTT 38.4 Seconds (23.7-30.8) H 06/10/16 19:05 Assessment and Plan - Assessment and Plan (Free Text) Assessment: Attending note: patient seen and examined with resident. This is a 35 year old female with history of sickle cell anemia, cerebral palsy , bipolar disorder who got admitted for evaluation of vaso-occlusive crises/ Acute chest syndrome. continue oxygen, IV fluids, IV Dilaudid. Retic count is improving. hb is 7.0. retic count is 14. Hold hydrea due to thrombocytopenia worsening. restart as outpatient. Continue folic acid. avoid transfusion secondary to iron overload. follow-up CBC tomorrow. Transfusion if hemoglobin less than 7. Case discussed with hematology dr. bai in detail. bowel regimen with continue Colace, MiraLAX . Chelation as an outpatient for iron overload is recommended. bipolar disorder; continue medications. Upon discharge patient will follow up with hematology and was PMD . Attending/Attestation - Attestation I have personally seen and examined this patient.: Yes I have fully participated in the care of the patient.: Yes I have reviewed all pertinent clinical information, including history, physical exam and plan: Yes
[2016-06-17] MEDS: HYDROmorphone 1 mg/ml ISec IVP PRN ×6 (00:58→21:24)
[2016-06-17] MEDS: POLYETHYLENE GLYCOL 3350 17 GM/Dose PACKET PO SCH (04:42)
[2016-06-17 06:15] LABS: BLOOD UREA NITROGEN 7 mg/dL (7-21); CALCIUM 8.1 mg/dL (8.4-10.5); CARBON DIOXIDE 29 mmol/L (21-33); CHLORIDE 102 mmol/L (98-107); GFR AFRICAN-AMERICAN > 60; GLUCOSE,RANDOM 84 mg/dL (70-110); SODIUM 139 mmol/L (132-148)
[2016-06-17 06:24] LABS: BASO # 0.04 K/mm3 (0.0-2.0); BASO % 0.4 % (0.0-3.0); EOS # 0.3 (0.0-0.7); EOS % 3.5 % (1.5-5.0); GRAN # 4.19 (1.4-6.5); GRAN % 45.5 % (50.0-68.0); LYMPH # 3.7 (1.2-3.4); LYMPH % 39.9 % (22.0-35.0); MEAN CELL VOLUME 104.1 fL (80.0-105.0); MEAN CORPUSCULAR HEMOGLOBIN 38.6 pg (25.0-35.0); MEAN CORPUSCULAR HGB CONC 37.1 g/dl (31.0-37.0); MEAN PLATELET VOLUME 9.9 fl (7.0-11.0); MONO % 10.7 % (1.0-6.0); PLATELET COUNT 85 10^3/uL (120.0-450.0); RED CELL DISTRIBUTION WIDTH 27.5 % (11.5-14.5); WHITE BLOOD COUNT 9.2 10^3/ul (4.5-11.0)
[2016-06-17 06:28] LABS: HEMATOCRIT 17.8 % (36.0-48.0); RETIC% 14.98 % (0.5-1.5)
[2016-06-17 06:56] LABS: ADD MANUAL DIFF? NO
[2016-06-17] MEDS: Pantoprazole 40 mg EC Tab PO SCH (08:47)
[2016-06-17] MEDS: Multivitamin With Minerals Tab PO SCH (08:59)
[2016-06-17] MEDS: Divalproex 250 mg DR (BID formulation) PO SCH ×2 (08:59→17:25)
[2016-06-17] MEDS: Enoxaparin 30 mg Syringe SC SCH (08:59)
--- NOTE | 2016-06-17 10:19 | CARD ---
APPROVED REPORT EKG Measurement Heart [id number] IA [id number] <Conclusion> Normal sinus rhythm Nonspecific T wave abnormality Abnormal ECG
[2016-06-17] MEDS ORDERED: Magnesium Hydroxide Susp 30 ml UD PO PRN (12:05)
--- NOTE | 2016-06-17 12:10 | CP.PCM.PN ---
<Alberto Duvall - Last Filed: 06/17/16 12:07> Subjective - Date & Time of Evaluation Date of Evaluation: 06/17/16 Time of Evaluation: 07:20 - Subjective Subjective: Hopitalist Progress Note: Pt seen and examined at bedside. No acute events overnight. Pt is resting comfortably in bed. C/o of mild chest pain controlled with pain meds. Denies any Smith, dizziness, f/c, SOB, abd pain, n/v, urinary or bm changes. Objective - Vital Signs/Intake and Output Vital Signs (last 24 hours): Temp Pulse Resp BP Pulse Ox 98.3 F 92 H 17 116/78 94 L 06/17/16 06:00 06/17/16 06:00 06/17/16 06:00 06/17/16 06:00 06/17/16 06:00 Intake and Output: 06/17/16 06/17/16 06:59 18:59 Intake Total 720 Output Total 500 Balance 220 - Medications Medications: Current Medications Albuterol/Ipratropium (Duoneb 3 Mg/0.5 Mg (3 Ml) Ud) 3 ml IH Q2H PRN PRN Reason: Shortness of Breath Diphenhydramine HCl (Benadryl) 25 mg IVP Q8 PRN PRN Reason: Allergy symptoms Last Admin: 06/16/16 17:07 Dose: 25 mg Divalproex Sodium (Depakote Dr (*Bid*)) 250 mg PO BID [facility] PRN Reason: Protocol Last Admin: 06/17/16 08:59 Dose: 250 mg Docusate Sodium (Colace) 100 mg PO BID [facility] Last Admin: 06/17/16 08:59 Dose: 100 mg Enoxaparin Sodium (Lovenox) 30 mg SC DAILY [facility] PRN Reason: Protocol Last Admin: 06/17/16 08:59 Dose: 30 mg Famotidine (Pepcid) 20 mg PO 1000,2200 [facility] Folic Acid (Folic Acid) 1 mg PO DAILY [facility] Last Admin: 06/17/16 08:59 Dose: 1 mg Guaifenesin (Robitussin) 200 mg PO Q4H PRN PRN Reason: Cough and congestion Last Admin: 06/13/16 21:02 Dose: 200 mg Hydroxyurea (Hydrea) 500 mg PO BID [facility] Last Admin: 06/15/16 17:43 Dose: 500 mg Sodium Chloride (Sodium Chloride 0.9%) 1,000 mls @ 150 mls/hr IV .Q6H40M [facility] Last Admin: 06/16/16 09:53 Dose: 150 mls/hr Magnesium Hydroxide (Milk Of Magnesia) 30 ml PO DAILY PRN PRN Reason: Constipation Multivitamins/Minerals (Therapeutic-M Tab) 1 tab PO DAILY [facility] Last Admin: 06/17/16 08:59 Dose: 1 tab Ondansetron HCl (Zofran Inj) 4 mg IVP Q4H PRN PRN Reason: Nausea/Vomiting Last Admin: 06/11/16 18:57 Dose: 4 mg Trazodone HCl (Desyrel) 25 mg PO [facility] Last Admin: 06/16/16 21:04 Dose: 25 mg - Labs Labs: 06/17/16 05:45 06/17/16 05:45 PT 12.0 Seconds (9.9-11.8) H 06/13/16 10:45 INR 1.11 (0.93-1.08) H 06/13/16 10:45 APTT 38.4 Seconds (23.7-30.8) H 06/10/16 19:05 - Constitutional Appears: No Acute Distress - Head Exam Head Exam: ATRAUMATIC, NORMAL INSPECTION, NORMOCEPHALIC - Eye Exam Eye Exam: EOMI, Normal appearance, PERRL Pupil Exam: NORMAL ACCOMODATION, PERRL - ENT Exam ENT Exam: Mucous Membranes Moist, Normal Exam - Neck Exam Neck Exam: Full ROM, Normal Inspection. absent: Lymphadenopathy - Respiratory Exam Respiratory Exam: Clear to Ausculation Bilateral, NORMAL BREATHING PATTERN. absent: Wheezes - Cardiovascular Exam Cardiovascular Exam: REGULAR RHYTHM, RRR, +S1, +S2. absent: Murmur - GI/Abdominal Exam GI & Abdominal Exam: Soft. absent: Distended, Tenderness - Extremities Exam Extremities Exam: Full ROM, Normal Capillary Refill, Normal Inspection. absent : Joint Swelling, Pedal Edema - Neurological Exam Neurological Exam: Alert, Awake, Oriented x3 - Psychiatric Exam Psychiatric exam: Normal Affect, Normal Mood - Skin Skin Exam: Dry, Intact, Normal Color, Warm Assessment and Plan - Assessment and Plan (Free Text) Assessment: This is a 35Y F with PMH sickle cell, cerebral palsy, asthma, HTN and bipolar disorder admitted for acute chest syndrome. 1. Acute chest syndrome - Dilaudid prn pain - folic acid qd - NS@150 - CXR: moderate cardiomegaly, mild vascular congestion, no infiltrate - Hgb decreased from 7.0 --> 6.6 1 Unit of PRBC ordered - Retic count increased from 14.34 --> 14.98 cont to monitor - Procalcitonin <0.05 - Continue NC 2L - Duoneb prn - Hold transfusion until hgb <7.0 - Heme consulted- Dr. Palacios- Outpt chelation - Hydroxyurea BID (hold) - f/u hepatitis panel. 2. Chronic systolic CHF - ECHO 12/2015: LVEF: 40.2%, mild/mod systolic impairment, hypokinesis of left ventricle, mild pulmonary HTN - Cardiology consult: continue current management - Decrease IVF if reticulocyte count continues to decrease 3. Cerebral Palsy - Stable - Continue multivitamin and folic acid 4. Hx of Bipolar disorder - Continue Depakote - Continue Trazodone (home med) 5. Hx of constipation - D/ivonne miralax, and added Milk of mag - Cont colace - continue to monitor 6. GI ppx: Protonix - DVT ppx: SCDs Case and plan was seen, reviewed, and discussed in detail with Dr Noble. <Lyndsey Noble - Last Filed: 06/17/16 17:13> Objective - Vital Signs/Intake and Output Vital Signs (last 24 hours): Temp Pulse Resp BP Pulse Ox 98.2 F 94 H 18 117/80 92 L 06/17/16 16:00 06/17/16 16:00 06/17/16 16:00 06/17/16 16:00 06/17/16 16:00 Intake and Output: 06/17/16 06/17/16 06:59 18:59 Intake Total 720 970 Output Total 500 Balance 220 970 - Medications Medications: Current Medications Albuterol/Ipratropium (Duoneb 3 Mg/0.5 Mg (3 Ml) Ud) 3 ml IH Q2H PRN PRN Reason: Shortness of Breath Diphenhydramine HCl (Benadryl) 25 mg IVP Q8 PRN PRN Reason: Allergy symptoms Last Admin: 06/17/16 13:09 Dose: 25 mg Divalproex Sodium (Depakote Dr (*Bid*)) 250 mg PO BID [facility] PRN Reason: Protocol Last Admin: 06/17/16 08:59 Dose: 250 mg Docusate Sodium (Colace) 100 mg PO BID [facility] Last Admin: 06/17/16 08:59 Dose: 100 mg Enoxaparin Sodium (Lovenox) 30 mg SC DAILY [facility] PRN Reason: Protocol Last Admin: 06/17/16 08:59 Dose: 30 mg Famotidine (Pepcid) 20 mg PO 1000,2200 [facility] Folic Acid (Folic Acid) 1 mg PO DAILY [facility] Last Admin: 06/17/16 08:59 Dose: 1 mg Guaifenesin (Robitussin) 200 mg PO Q4H PRN PRN Reason: Cough and congestion Last Admin: 06/13/16 21:02 Dose: 200 mg Hydromorphone HCl (Dilaudid) 0.5 mg IVP Q4H PRN PRN Reason: Pain, moderate (4-7) Hydromorphone HCl (Dilaudid) 1 mg IVP Q4H PRN PRN Reason: Pain, severe (8-10) Last Admin: 06/17/16 13:09 Dose: 1 mg Hydroxyurea (Hydrea) 500 mg PO BID [facility] Last Admin: 06/15/16 17:43 Dose: 500 mg Sodium Chloride (Sodium Chloride 0.9%) 1,000 mls @ 150 mls/hr IV .Q6H40M [facility] Last Admin: 06/16/16 09:53 Dose: 150 mls/hr Magnesium Hydroxide (Milk Of Magnesia) 30 ml PO DAILY PRN PRN Reason: Constipation Multivitamins/Minerals (Therapeutic-M Tab) 1 tab PO DAILY [facility] Last Admin: 06/17/16 08:59 Dose: 1 tab Ondansetron HCl (Zofran Inj) 4 mg IVP Q4H PRN PRN Reason: Nausea/Vomiting Last Admin: 06/11/16 18:57 Dose: 4 mg Trazodone HCl (Desyrel) 25 mg PO [facility] Last Admin: 06/16/16 21:04 Dose: 25 mg - Labs Labs: 06/17/16 05:45 06/17/16 05:45 PT 12.0 Seconds (9.9-11.8) H 04/20/17 10:45 INR 1.11 (0.93-1.08) H 06/13/16 10:45 APTT 38.4 Seconds (23.7-30.8) H 06/10/16 19:05 Attending/Attestation - Attestation I have personally seen and examined this patient.: Yes I have fully participated in the care of the patient.: Yes I have reviewed all pertinent clinical information, including history, physical exam and plan: Yes Notes (Text): I have seen and examined patient at bedside. Agree with the note above with the addition/ exception of the following: This is a 35 year old female with history of sickle cell anemia, cerebral palsy, bipolar disorder who got admitted for evaluation of vaso-occlusive crises. She appears comfortable however continues to complain of chest pain. Hb is 6.6 today and retic is 14. Will transfuse her 1 unit of prbc. Consent obtained for blood transfusion. Continue oxygen, IVF, anagesics. Hold hydrea due to thrombocytopenia worsening. Will restart upon discharge. Continue folic acid. She needs Chelation as an outpatient for iron overload is recommended. Continue depakote for bipolar disorder. Upon discharge patient will follow up with hematology and was PMD . Dr Lyndsey Noble
[2016-06-17] MEDS: DiphenhydrAMINE 50 mg/ml Inj IVP PRN (13:09)
[2016-06-17] MEDS: Sodium Chloride 0.9% 1,000 ML IV SCH (17:26)
[2016-06-17 20:34] LABS: MEAN CELL VOLUME 98.6 fL (80.0-105.0); MEAN CORPUSCULAR HGB CONC 36.5 g/dl (31.0-37.0); MEAN PLATELET VOLUME 10.6 fl (7.0-11.0); PLATELET COUNT 114 10^3/uL (120.0-450.0); WHITE BLOOD COUNT 8.6 10^3/ul (4.5-11.0)
[2016-06-17 20:41] LABS: ADD MANUAL DIFF? YES
[2016-06-17 20:45] LABS: HEMATOCRIT 21.9 % (36.0-48.0)
[2016-06-17 21:45] LABS: ANISOCYTOSIS 1+; EOSINOPHIL 2 % (0.0-3.0)
[2016-06-17 21:47] LABS: NEUTROPHIL 40 % (50.0-70.0)
[2016-06-18] MEDS: HYDROmorphone 1 mg/ml ISec IVP PRN ×4 (01:25→19:57)
[2016-06-18] MEDS: Sodium Chloride 0.9% 1,000 ML IV SCH ×2 (01:27→19:54)
[2016-06-18 08:38] LABS: MEAN CELL VOLUME 98.2 fL (80.0-105.0); MEAN CORPUSCULAR HEMOGLOBIN 36.2 pg (25.0-35.0); MEAN CORPUSCULAR HGB CONC 36.9 g/dl (31.0-37.0); MEAN PLATELET VOLUME 10.2 fl (7.0-11.0); RED CELL DISTRIBUTION WIDTH 30.2 % (11.5-14.5); WHITE BLOOD COUNT 7.4 10^3/ul (4.5-11.0)
[2016-06-18 08:40] LABS: RETIC% 19.32 % (0.5-1.5)
[2016-06-18 08:41] LABS: HEMATOCRIT 21.4 % (36.0-48.0)
[2016-06-18 08:47] LABS: ALB/GLOB RATIO 0.7 (1.1-1.8); ALKALINE PHOSPHATASE 102 U/L (38-133); ALT/SGPT 74 U/L (7-56); AST/SGOT 123 U/L (15-39); BILIRUBIN,TOTAL 2.6 mg/dL (0.2-1.3); BLOOD UREA NITROGEN 3 mg/dL (7-21); CARBON DIOXIDE 28 mmol/L (21-33); CHLORIDE 105 mmol/L (95-110); GFR AFRICAN-AMERICAN > 60; GLUCOSE,RANDOM 87 mg/dL (70-110); POTASSIUM 3.7 mmol/L (3.6-5.0); SODIUM 141 mmol/L (132-148); TOTAL PROTEIN 7.2 g/dL (5.8-8.3)
--- NOTE | 2016-06-18 09:20 | CP.PCM.PN ---
<Shahla Gannon - Last Filed: 06/18/16 11:11> Subjective - Date & Time of Evaluation Date of Evaluation: 06/18/16 Time of Evaluation: 09:16 - Subjective Subjective: Hospitalist Progress Note Patient seen and examined at bedside. There were no acute overnight events. She reports that she still has chest pain. It does not radiate. It is worse with deep breaths. Upon examination, patient was resting comfortably in bed. She denies SOB, fever, chills, n/v/d, abdominal pain, dysuria or hematuria. Objective - Vital Signs/Intake and Output Vital Signs (last 24 hours): Temp Pulse Resp BP Pulse Ox 98.2 F 94 H 18 117/80 92 L 06/17/16 16:00 06/17/16 16:00 06/17/16 16:00 06/17/16 16:00 06/17/16 16:00 Intake and Output: 06/18/16 06/18/16 06:59 18:59 Intake Total 360 Output Total 300 Balance 60 - Medications Medications: Current Medications Albuterol/Ipratropium (Duoneb 3 Mg/0.5 Mg (3 Ml) Ud) 3 ml IH Q2H PRN PRN Reason: Shortness of Breath Diphenhydramine HCl (Benadryl) 25 mg IVP Q8 PRN PRN Reason: Allergy symptoms Last Admin: 06/17/16 13:09 Dose: 25 mg Divalproex Sodium (Depakote Dr (*Bid*)) 250 mg PO BID [facility] PRN Reason: Protocol Last Admin: 06/17/16 17:25 Dose: 250 mg Docusate Sodium (Colace) 100 mg PO BID [facility] Last Admin: 06/17/16 17:25 Dose: 100 mg Enoxaparin Sodium (Lovenox) 30 mg SC DAILY [facility] PRN Reason: Protocol Last Admin: 06/17/16 08:59 Dose: 30 mg Famotidine (Pepcid) 20 mg PO 1000,2200 [facility] Last Admin: 06/17/16 21:23 Dose: 20 mg Folic Acid (Folic Acid) 1 mg PO DAILY [facility] Last Admin: 06/17/16 08:59 Dose: 1 mg Guaifenesin (Robitussin) 200 mg PO Q4H PRN PRN Reason: Cough and congestion Last Admin: 06/13/16 21:02 Dose: 200 mg Hydromorphone HCl (Dilaudid) 0.5 mg IVP Q4H PRN PRN Reason: Pain, moderate (4-7) Hydromorphone HCl (Dilaudid) 1 mg IVP Q4H PRN PRN Reason: Pain, severe (8-10) Last Admin: 06/18/16 01:25 Dose: 1 mg Hydroxyurea (Hydrea) 500 mg PO BID [facility] Last Admin: 06/15/16 17:43 Dose: 500 mg Sodium Chloride (Sodium Chloride 0.9%) 1,000 mls @ 150 mls/hr IV .Q6H40M [facility] Last Admin: 06/18/16 01:27 Dose: 150 mls/hr Magnesium Hydroxide (Milk Of Magnesia) 30 ml PO DAILY PRN PRN Reason: Constipation Multivitamins/Minerals (Therapeutic-M Tab) 1 tab PO DAILY [facility] Last Admin: 06/17/16 08:59 Dose: 1 tab Ondansetron HCl (Zofran Inj) 4 mg IVP Q4H PRN PRN Reason: Nausea/Vomiting Last Admin: 06/11/16 18:57 Dose: 4 mg Trazodone HCl (Desyrel) 25 mg PO HS [facility] Last Admin: 06/17/16 21:24 Dose: 25 mg - Labs Labs: 06/18/16 08:30 06/18/16 08:30 PT 12.0 Seconds (9.9-11.8) H 06/13/16 10:45 INR 1.11 (0.93-1.08) H 06/13/16 10:45 APTT 38.4 Seconds (23.7-30.8) H 06/10/16 19:05 - Constitutional Appears: No Acute Distress - Head Exam Head Exam: ATRAUMATIC, NORMAL INSPECTION, NORMOCEPHALIC - Eye Exam Eye Exam: Normal appearance Pupil Exam: NORMAL ACCOMODATION - ENT Exam ENT Exam: Mucous Membranes Moist - Respiratory Exam Respiratory Exam: NORMAL BREATHING PATTERN. absent: Clear to Ausculation Bilateral, Rales, Rhonchi, Wheezes Additional comments: R portocath in place - Cardiovascular Exam Cardiovascular Exam: REGULAR RHYTHM, +S1, +S2. absent: Gallop, Rubs, Murmur - GI/Abdominal Exam GI & Abdominal Exam: Soft, Normal Bowel Sounds. absent: Rigid, Tenderness, Mass , Rebound - Extremities Exam Extremities Exam: Normal Inspection. absent: Calf Tenderness, Pedal Edema - Neurological Exam Neurological Exam: Alert, Awake, CN II-XII Intact, Oriented x3 - Psychiatric Exam Psychiatric exam: Normal Affect, Normal Mood - Skin Skin Exam: Dry, Intact, Normal Color, Warm Assessment and Plan - Assessment and Plan (Free Text) Assessment: This is a 35Y AA F with PMH cerebral palsy, HTN, bipolar disorder and sickle cell disease admitted for acute chest syndrome secondary to sickle cell crisis. Plan: 1. Acute Chest Syndrome - Secondary to sickle cell crisis - Transfused 1U of PRBC yesterday - Hgb increased from 6.6 to 7.9 - Now in hemolysis- Reticulocyte increase from 15 to 19.32. with bilirubin increased to 2.6 from 1.7 - Continue to monitor CBC and reticulocyte count - Continue Pain control with dilaudid - Continue NC 2L to maintain spO2>90% - Duoneb prn SOB - Hep panel negative - Continue to hold Hydroxyurea for low platelets - Heme consulted- recommended outpatient chelation therapy - Zofran prn nausea 2. CHF (Chronic) - Continue IVF- NS@150 - will decrease IVF if reticulocyte count decreases - Cardiology Consulted- continue current management - Daily weight, strict I&O - Robitussin prn cough 3. Hx Cerebral Palsy - Continue Depakote - Continue multivitamin and folic acid 4. Hx of Bipolar disorder - Continue Trazodone and Depakote 5. Hx of constipation - Continue colace and milk of mag - continue to monitor GI ppx: Pepcid DVT ppx: Lovenox Case seen, discussed and reviewed with attending Geraldine Gannon PGY1 <Lyndsey Noble - Last Filed: 06/18/16 16:34> Objective - Vital Signs/Intake and Output Vital Signs (last 24 hours): Temp Pulse Resp BP Pulse Ox 97.8 F 71 20 151/94 H 97 06/18/16 06:00 06/18/16 06:00 06/18/16 06:00 06/18/16 06:00 06/18/16 06:00 Intake and Output: 06/18/16 06/18/16 06:59 18:59 Intake Total 360 600 Output Total 300 Balance 60 600 - Medications Medications: Current Medications Albuterol/Ipratropium (Duoneb 3 Mg/0.5 Mg (3 Ml) Ud) 3 ml IH Q2H PRN PRN Reason: Shortness of Breath Diphenhydramine HCl (Benadryl) 25 mg IVP Q8 PRN PRN Reason: Allergy symptoms Last Admin: 06/18/16 14:48 Dose: 25 mg Divalproex Sodium (Depakote Dr (*Bid*)) 250 mg PO BID [facility] PRN Reason: Protocol Last Admin: 06/18/16 09:24 Dose: 250 mg Docusate Sodium (Colace) 100 mg PO BID [facility] Last Admin: 06/18/16 09:24 Dose: 100 mg Enoxaparin Sodium (Lovenox) 30 mg SC DAILY [facility] PRN Reason: Protocol Last Admin: 06/18/16 09:25 Dose: 30 mg Famotidine (Pepcid) 20 mg PO 1000,2200 [facility] Last Admin: 06/18/16 09:25 Dose: 20 mg Folic Acid (Folic Acid) 1 mg PO DAILY [facility] Last Admin: 06/18/16 09:25 Dose: 1 mg Guaifenesin (Robitussin) 200 mg PO Q4H PRN PRN Reason: Cough and congestion Last Admin: 06/13/16 21:02 Dose: 200 mg Hydromorphone HCl (Dilaudid) 0.5 mg IVP Q4H PRN PRN Reason: Pain, moderate (4-7) Hydromorphone HCl (Dilaudid) 1 mg IVP Q4H PRN PRN Reason: Pain, severe (8-10) Last Admin: 06/18/16 14:49 Dose: 1 mg Hydroxyurea (Hydrea) 500 mg PO BID [facility] Last Admin: 06/18/16 10:04 Dose: 500 mg Sodium Chloride (Sodium Chloride 0.9%) 1,000 mls @ 150 mls/hr IV .Q6H40M [facility] Last Admin: 06/18/16 01:27 Dose: 150 mls/hr Magnesium Hydroxide (Milk Of Magnesia) 30 ml PO DAILY PRN PRN Reason: Constipation Multivitamins/Minerals (Therapeutic-M Tab) 1 tab PO DAILY [facility] Last Admin: 06/18/16 09:25 Dose: 1 tab Ondansetron HCl (Zofran Inj) 4 mg IVP Q4H PRN PRN Reason: Nausea/Vomiting Last Admin: 06/11/16 18:57 Dose: 4 mg Trazodone HCl (Desyrel) 25 mg PO HS [facility] Last Admin: 06/17/16 21:24 Dose: 25 mg - Labs Labs: 06/18/16 08:30 06/18/16 08:30 PT 12.0 Seconds (9.9-11.8) H 06/13/16 10:45 INR 1.11 (0.93-1.08) H 06/13/16 10:45 APTT 38.4 Seconds (23.7-30.8) H 06/10/16 19:05 Attending/Attestation - Attestation I have personally seen and examined this patient.: Yes I have fully participated in the care of the patient.: Yes I have reviewed all pertinent clinical information, including history, physical exam and plan: Yes Notes (Text): I have seen and examined patient at bedside. Agree with the note above with the addition/ exception of the following: This is a 35 year old female with history of sickle cell anemia, cerebral palsy, bipolar disorder who got admitted for evaluation of vaso-occlusive crises. She appears comfortable however continues to complain of chest pain which gets worse with deep breaths. Hb is 7.8 today and retic is 18. She was given 1 unit of prbc yesterday. Continue oxygen, IVF, anagesics. Hold hydrea due to thrombocytopenia. Will restart upon discharge. Continue folic acid. She needs Chelation as an outpatient for iron overload is recommended. Continue depakote for bipolar disorder. Will discuss with casework specialist regarding her disposition plan and multiple readmissions. Upon discharge patient will follow up with hematology and was PMD . Dr Lyndsey Noble
[2016-06-18] MEDS: Divalproex 250 mg DR (BID formulation) PO SCH ×2 (09:24→17:18)
[2016-06-18] MEDS: Multivitamin With Minerals Tab PO SCH (09:25)
[2016-06-18] MEDS: Enoxaparin 30 mg Syringe SC SCH (09:25)
[2016-06-18] MEDS: DiphenhydrAMINE 50 mg/ml Inj IVP PRN (14:48)
[2016-06-19] MEDS: HYDROmorphone 1 mg/ml ISec IVP PRN ×4 (00:05→22:53)
[2016-06-19] MEDS: DiphenhydrAMINE 50 mg/ml Inj IVP PRN ×3 (00:28→22:53)
[2016-06-19] MEDS: Sodium Chloride 0.9% 1,000 ML IV SCH ×3 (02:54→19:24)
[2016-06-19 06:53] LABS: ALB/GLOB RATIO 0.7 (1.1-1.8); ALKALINE PHOSPHATASE 102 U/L (38-133); ALT/SGPT 78 U/L (7-56); AST/SGOT 114 U/L (15-39); BILIRUBIN,TOTAL 2.5 mg/dL (0.2-1.3); BLOOD UREA NITROGEN 3 mg/dL (7-21); CALCIUM 8.1 mg/dL (8.4-10.5); CARBON DIOXIDE 27 mmol/L (21-33); CHLORIDE 107 mmol/L (98-107); GFR AFRICAN-AMERICAN > 60; GLUCOSE,RANDOM 88 mg/dL (70-110); POTASSIUM 3.7 mmol/L (3.6-5.0); SODIUM 141 mmol/L (132-148); TOTAL PROTEIN 7.1 g/dL (5.8-8.3)
[2016-06-19 07:20] LABS: MEAN CELL VOLUME 99.1 fL (80.0-105.0); MEAN CORPUSCULAR HEMOGLOBIN 35.2 pg (25.0-35.0); MEAN CORPUSCULAR HGB CONC 35.5 g/dl (31.0-37.0); MEAN PLATELET VOLUME 10.1 fl (7.0-11.0); RED CELL DISTRIBUTION WIDTH 30.6 % (11.5-14.5); WHITE BLOOD COUNT 7.3 10^3/ul (4.5-11.0)
--- NOTE | 2016-06-19 07:20 | CP.PCM.PN ---
Subjective - Date & Time of Evaluation Date of Evaluation: 06/18/16 Time of Evaluation: 19:05 - Subjective Subjective: Has chest pain, appetite improved Objective - Vital Signs/Intake and Output Vital Signs (last 24 hours): Temp Pulse Resp BP Pulse Ox 98.8 F 70 18 146/90 99 06/18/16 18:00 06/18/16 18:00 06/18/16 18:00 06/18/16 18:00 06/18/16 18:00 Intake and Output: 06/19/16 06/19/16 06:59 18:59 Intake Total 3880 Output Total 3200 Balance 680 - Medications Medications: Current Medications Albuterol/Ipratropium (Duoneb 3 Mg/0.5 Mg (3 Ml) Ud) 3 ml IH Q2H PRN PRN Reason: Shortness of Breath Diphenhydramine HCl (Benadryl) 25 mg IVP Q8 PRN PRN Reason: Allergy symptoms Last Admin: 06/19/16 00:28 Dose: 25 mg Divalproex Sodium (Depakote Dr (*Bid*)) 250 mg PO BID [facility] PRN Reason: Protocol Last Admin: 06/18/16 17:18 Dose: 250 mg Docusate Sodium (Colace) 100 mg PO BID [facility] Last Admin: 06/18/16 17:18 Dose: 100 mg Enoxaparin Sodium (Lovenox) 30 mg SC DAILY [facility] PRN Reason: Protocol Last Admin: 06/18/16 09:25 Dose: 30 mg Famotidine (Pepcid) 20 mg PO 1000,2200 [facility] Last Admin: 06/18/16 21:42 Dose: 20 mg Folic Acid (Folic Acid) 1 mg PO DAILY [facility] Last Admin: 06/18/16 09:25 Dose: 1 mg Guaifenesin (Robitussin) 200 mg PO Q4H PRN PRN Reason: Cough and congestion Last Admin: 06/13/16 21:02 Dose: 200 mg Hydromorphone HCl (Dilaudid) 0.5 mg IVP Q4H PRN PRN Reason: Pain, moderate (4-7) Hydromorphone HCl (Dilaudid) 1 mg IVP Q4H PRN PRN Reason: Pain, severe (8-10) Last Admin: 06/19/16 06:04 Dose: 1 mg Hydroxyurea (Hydrea) 500 mg PO BID [facility] Last Admin: 06/18/16 10:04 Dose: 500 mg Sodium Chloride (Sodium Chloride 0.9%) 1,000 mls @ 150 mls/hr IV .Q6H40M [facility] Last Admin: 06/19/16 02:54 Dose: 150 mls/hr Magnesium Hydroxide (Milk Of Magnesia) 30 ml PO DAILY PRN PRN Reason: Constipation Multivitamins/Minerals (Therapeutic-M Tab) 1 tab PO DAILY [facility] Last Admin: 06/18/16 09:25 Dose: 1 tab Ondansetron HCl (Zofran Inj) 4 mg IVP Q4H PRN PRN Reason: Nausea/Vomiting Last Admin: 06/11/16 18:57 Dose: 4 mg Trazodone HCl (Desyrel) 25 mg PO [facility] Last Admin: 06/18/16 21:42 Dose: 25 mg - Labs Labs: 06/18/16 08:30 06/19/16 05:30 PT 12.0 Seconds (9.9-11.8) H 06/13/16 10:45 INR 1.11 (0.93-1.08) H 06/13/16 10:45 APTT 38.4 Seconds (23.7-30.8) H 06/10/16 19:05 - Head Exam Head Exam: ATRAUMATIC - Eye Exam Eye Exam: Normal appearance - ENT Exam ENT Exam: Mucous Membranes Dry - Respiratory Exam Respiratory Exam: NORMAL BREATHING PATTERN - Cardiovascular Exam Cardiovascular Exam: +S1, +S2 - GI/Abdominal Exam GI & Abdominal Exam: Normal Bowel Sounds Assessment and Plan (1) Acute chest syndrome Assessment & Plan: IV fluids, pain meds, folic acid, 02 via NC s/p PRBC transfusion Status: Acute (2) Iron overload due to repeated red blood cell transfusions Assessment & Plan: outpatient chelation Status: Chronic (3) Thrombocytopenia Assessment & Plan: mild secondary to hydrea Status: Chronic (4) Sickle cell anemia Assessment & Plan: folic acid and hydrea Status: Chronic
[2016-06-19 07:51] LABS: HEMATOCRIT 21.4 % (36.0-48.0)
[2016-06-19 07:52] LABS: RETIC% 21.44 % (0.5-1.5)
[2016-06-19] MEDS: Multivitamin With Minerals Tab PO SCH (09:20)
[2016-06-19] MEDS: Divalproex 250 mg DR (BID formulation) PO SCH ×2 (09:21→17:16)
[2016-06-19] MEDS: Enoxaparin 30 mg Syringe SC SCH (09:21)
[2016-06-19] MEDS: HYDROmorphone 0.5 mg/0.5 ml ISec IVP PRN ×2 (09:40→18:57)
--- NOTE | 2016-06-19 11:36 | CP.PCM.PN ---
<Shahla Gannon - Last Filed: 06/19/16 11:29> Subjective - Date & Time of Evaluation Date of Evaluation: 06/19/16 Time of Evaluation: 11:29 - Subjective Subjective: Hospitalist Progress Note Patient seen and examined at bedside. There were no acute overnight events. She reports that she still has chest pain especially with movement and deep breaths. She denies SOB, n/v/d, numbness/tingling, dysuria, hematuria, fever or chills. Objective - Vital Signs/Intake and Output Vital Signs (last 24 hours): Temp Pulse Resp BP Pulse Ox 98.7 F 89 20 117/80 100 06/19/16 06:00 06/19/16 06:00 06/19/16 06:00 06/19/16 06:00 06/19/16 06:00 Intake and Output: 06/19/16 06/19/16 06:59 18:59 Intake Total 3880 1000 Output Total 3200 Balance 680 1000 - Medications Medications: Current Medications Albuterol/Ipratropium (Duoneb 3 Mg/0.5 Mg (3 Ml) Ud) 3 ml IH Q2H PRN PRN Reason: Shortness of Breath Diphenhydramine HCl (Benadryl) 25 mg IVP Q8 PRN PRN Reason: Allergy symptoms Last Admin: 06/19/16 11:01 Dose: 25 mg Divalproex Sodium (Depakote Dr (*Bid*)) 250 mg PO BID [facility] PRN Reason: Protocol Last Admin: 06/19/16 09:21 Dose: 250 mg Docusate Sodium (Colace) 100 mg PO BID [facility] Last Admin: 06/19/16 09:20 Dose: 100 mg Enoxaparin Sodium (Lovenox) 30 mg SC DAILY [facility] PRN Reason: Protocol Last Admin: 06/19/16 09:21 Dose: 30 mg Famotidine (Pepcid) 20 mg PO 1000,2200 [facility] Last Admin: 06/19/16 09:21 Dose: 20 mg Folic Acid (Folic Acid) 1 mg PO DAILY [facility] Last Admin: 06/19/16 09:20 Dose: 1 mg Guaifenesin (Robitussin) 200 mg PO Q4H PRN PRN Reason: Cough and congestion Last Admin: 06/13/16 21:02 Dose: 200 mg Hydromorphone HCl (Dilaudid) 0.5 mg IVP Q4H PRN PRN Reason: Pain, moderate (4-7) Last Admin: 06/19/16 09:40 Dose: 0.5 mg Hydromorphone HCl (Dilaudid) 1 mg IVP Q4H PRN PRN Reason: Pain, severe (8-10) Last Admin: 06/19/16 06:04 Dose: 1 mg Hydroxyurea (Hydrea) 500 mg PO BID [facility] Last Admin: 06/18/16 10:04 Dose: 500 mg Sodium Chloride (Sodium Chloride 0.9%) 1,000 mls @ 150 mls/hr IV .Q6H40M [facility] Last Admin: 06/19/16 09:34 Dose: 150 mls/hr Magnesium Hydroxide (Milk Of Magnesia) 30 ml PO DAILY PRN PRN Reason: Constipation Multivitamins/Minerals (Therapeutic-M Tab) 1 tab PO DAILY [facility] Last Admin: 06/19/16 09:20 Dose: 1 tab Ondansetron HCl (Zofran Inj) 4 mg IVP Q4H PRN PRN Reason: Nausea/Vomiting Last Admin: 06/11/16 18:57 Dose: 4 mg Trazodone HCl (Desyrel) 25 mg PO HS [facility] Last Admin: 06/18/16 21:42 Dose: 25 mg - Labs Labs: 06/19/16 05:30 06/19/16 05:30 PT 12.0 Seconds (9.9-11.8) H 06/13/16 10:45 INR 1.11 (0.93-1.08) H 06/13/16 10:45 APTT 38.4 Seconds (23.7-30.8) H 06/10/16 19:05 - Constitutional Appears: No Acute Distress - Head Exam Head Exam: ATRAUMATIC, NORMAL INSPECTION, NORMOCEPHALIC - Eye Exam Eye Exam: Normal appearance Pupil Exam: NORMAL ACCOMODATION - ENT Exam ENT Exam: Mucous Membranes Moist - Neck Exam Neck Exam: Normal Inspection - Respiratory Exam Respiratory Exam: Clear to Ausculation Bilateral, NORMAL BREATHING PATTERN. absent: Rales, Rhonchi, Wheezes - Cardiovascular Exam Cardiovascular Exam: REGULAR RHYTHM, +S1, +S2. absent: Gallop, Rubs, Murmur - GI/Abdominal Exam GI & Abdominal Exam: Soft, Normal Bowel Sounds. absent: Rigid, Tenderness, Mass , Rebound - Extremities Exam Extremities Exam: Normal Inspection. absent: Calf Tenderness, Pedal Edema - Neurological Exam Neurological Exam: Alert, Awake, CN II-XII Intact - Psychiatric Exam Psychiatric exam: Normal Affect, Normal Mood - Skin Skin Exam: Dry, Normal Color, Warm Assessment and Plan - Assessment and Plan (Free Text) Assessment: This is a 35Y AA F with PMH cerebral palsy, HTN, bipolar disorder and sickle cell disease admitted for acute chest syndrome secondary to sickle cell crisis. Plan: 1. Acute Chest Syndrome - Secondary to sickle cell crisis- now in active crisis - Hgb 7.6. Retic increased to 21 - Spoke with Dr. Palacios- will transfuse 1U PRBC today. We will monitor her CBC in AM and transfuse 1 more Unit depending on labs - Dilaudid prn pain, Duoneb prn SOB - Continue NC 2L to maintain spO2>90% - Hydroxyurea on hold for low platelets - Zofran prn nausea, Robitussin prn cough 2. CHF (Chronic) - Continue NS@150 - Cardiology Consulted- continue current management - Daily weight, strict I&O 3. Hx Cerebral Palsy - Continue Deparkote, multivitamin and folic acid 4. Hx of Bipolar disorder - Continue Trazodone and Depakote 5. Hx of constipation - Continue Colace and Milk of magnesia GI ppx: Pepcid DVT ppx: Lovenox Case seen, discussed and reviewed with attending Geraldine Gannon PGY1 <Lyndsey Noble B - Last Filed: 06/19/16 15:11> Objective - Vital Signs/Intake and Output Vital Signs (last 24 hours): Temp Pulse Resp BP Pulse Ox 98.7 F 89 20 117/80 100 06/19/16 06:00 06/19/16 06:00 06/19/16 06:00 06/19/16 06:00 06/19/16 06:00 Intake and Output: 06/19/16 06/19/16 06:59 18:59 Intake Total 3880 1000 Output Total 3200 Balance 680 1000 - Medications Medications: Current Medications Albuterol/Ipratropium (Duoneb 3 Mg/0.5 Mg (3 Ml) Ud) 3 ml IH Q2H PRN PRN Reason: Shortness of Breath Diphenhydramine HCl (Benadryl) 25 mg IVP Q8 PRN PRN Reason: Allergy symptoms Last Admin: 06/19/16 11:01 Dose: 25 mg Divalproex Sodium (Depakote Dr (*Bid*)) 250 mg PO BID [facility] PRN Reason: Protocol Last Admin: 06/19/16 09:21 Dose: 250 mg Docusate Sodium (Colace) 100 mg PO BID [facility] Last Admin: 06/19/16 09:20 Dose: 100 mg Enoxaparin Sodium (Lovenox) 30 mg SC DAILY [facility] PRN Reason: Protocol Last Admin: 06/19/16 09:21 Dose: 30 mg Famotidine (Pepcid) 20 mg PO 1000,2200 [facility] Last Admin: 06/19/16 09:21 Dose: 20 mg Folic Acid (Folic Acid) 1 mg PO DAILY [facility] Last Admin: 06/19/16 09:20 Dose: 1 mg Guaifenesin (Robitussin) 200 mg PO Q4H PRN PRN Reason: Cough and congestion Last Admin: 06/13/16 21:02 Dose: 200 mg Hydromorphone HCl (Dilaudid) 0.5 mg IVP Q4H PRN PRN Reason: Pain, moderate (4-7) Last Admin: 06/19/16 09:40 Dose: 0.5 mg Hydromorphone HCl (Dilaudid) 1 mg IVP Q4H PRN PRN Reason: Pain, severe (8-10) Last Admin: 06/19/16 14:45 Dose: 1 mg Hydroxyurea (Hydrea) 500 mg PO BID [facility] Last Admin: 06/18/16 10:04 Dose: 500 mg Sodium Chloride (Sodium Chloride 0.9%) 1,000 mls @ 150 mls/hr IV .Q6H40M [facility] Last Admin: 06/19/16 09:34 Dose: 150 mls/hr Magnesium Hydroxide (Milk Of Magnesia) 30 ml PO DAILY PRN PRN Reason: Constipation Multivitamins/Minerals (Therapeutic-M Tab) 1 tab PO DAILY [facility] Last Admin: 06/19/16 09:20 Dose: 1 tab Ondansetron HCl (Zofran Inj) 4 mg IVP Q4H PRN PRN Reason: Nausea/Vomiting Last Admin: 04/18/17 18:57 Dose: 4 mg Trazodone HCl (Desyrel) 25 mg PO HS [facility] Last Admin: 06/18/16 21:42 Dose: 25 mg - Labs Labs: 06/19/16 05:30 06/19/16 05:30 PT 12.0 Seconds (9.9-11.8) H 06/13/16 10:45 INR 1.11 (0.93-1.08) H 06/13/16 10:45 APTT 38.4 Seconds (23.7-30.8) H 06/10/16 19:05 Attending/Attestation - Attestation I have personally seen and examined this patient.: Yes I have fully participated in the care of the patient.: Yes I have reviewed all pertinent clinical information, including history, physical exam and plan: Yes Notes (Text): I have seen and examined patient at bedside. Agree with the note above with the addition/ exception of the following: This is a 35 year old female with history of sickle cell anemia, cerebral palsy, bipolar disorder who got admitted for evaluation of vaso-occlusive crises/ acute chest syndrome. She appears comfortable however she continues to complain of chest pain which gets worse with deep breaths or with sitting up. Hb is 7.6 today and retic is 21. She was given 1 unit of prbc 2 days ago. Plan to transfuse 1 unit of prbc today as well. Continue oxygen, IVF, anagesics. Hold hydrea due to thrombocytopenia. Will restart upon discharge. Continue folic acid. She needs Chelation as an outpatient for iron overload is recommended. Continue depakote for bipolar disorder. Will discuss with case supervisor regarding her disposition plan and multiple readmissions. Upon discharge patient will follow up with hematology and PMD . Dr Lyndsey Noble
--- NOTE | 2016-06-19 22:44 | CP.PCM.PN ---
Subjective - Date & Time of Evaluation Date of Evaluation: 06/19/16 Time of Evaluation: 19:05 - Subjective Subjective: Cont. to have chest pain, exacerbated by deep breaths Objective - Vital Signs/Intake and Output Vital Signs (last 24 hours): Temp Pulse Resp BP Pulse Ox 98.2 F 80 18 132/90 100 06/19/16 18:30 06/19/16 18:30 06/19/16 18:30 06/19/16 18:30 06/19/16 16:00 Intake and Output: 06/19/16 06/20/16 18:59 06:59 Intake Total 1283 1000 Balance 1283 1000 - Medications Medications: Current Medications Albuterol/Ipratropium (Duoneb 3 Mg/0.5 Mg (3 Ml) Ud) 3 ml IH Q2H PRN PRN Reason: Shortness of Breath Diphenhydramine HCl (Benadryl) 25 mg IVP Q8 PRN PRN Reason: Allergy symptoms Last Admin: 06/19/16 11:01 Dose: 25 mg Divalproex Sodium (Depakote Dr (*Bid*)) 250 mg PO BID [facility] PRN Reason: Protocol Last Admin: 06/19/16 17:16 Dose: 250 mg Docusate Sodium (Colace) 100 mg PO BID [facility] Last Admin: 06/19/16 17:16 Dose: 100 mg Enoxaparin Sodium (Lovenox) 30 mg SC DAILY [facility] PRN Reason: Protocol Last Admin: 06/19/16 09:21 Dose: 30 mg Famotidine (Pepcid) 20 mg PO 1000,2200 [facility] Last Admin: 06/19/16 09:21 Dose: 20 mg Folic Acid (Folic Acid) 1 mg PO DAILY [facility] Last Admin: 06/19/16 09:20 Dose: 1 mg Guaifenesin (Robitussin) 200 mg PO Q4H PRN PRN Reason: Cough and congestion Last Admin: 06/13/16 21:02 Dose: 200 mg Hydromorphone HCl (Dilaudid) 0.5 mg IVP Q4H PRN PRN Reason: Pain, moderate (4-7) Last Admin: 06/19/16 18:57 Dose: 0.5 mg Hydromorphone HCl (Dilaudid) 1 mg IVP Q4H PRN PRN Reason: Pain, severe (8-10) Last Admin: 06/19/16 14:45 Dose: 1 mg Hydroxyurea (Hydrea) 500 mg PO BID [facility] Last Admin: 06/18/16 10:04 Dose: 500 mg Sodium Chloride (Sodium Chloride 0.9%) 1,000 mls @ 150 mls/hr IV .Q6H40M [facility] Last Admin: 06/19/16 19:24 Dose: 150 mls/hr Magnesium Hydroxide (Milk Of Magnesia) 30 ml PO DAILY PRN PRN Reason: Constipation Multivitamins/Minerals (Therapeutic-M Tab) 1 tab PO DAILY [facility] Last Admin: 06/19/16 09:20 Dose: 1 tab Ondansetron HCl (Zofran Inj) 4 mg IVP Q4H PRN PRN Reason: Nausea/Vomiting Last Admin: 06/11/16 18:57 Dose: 4 mg Trazodone HCl (Desyrel) 25 mg PO HS [facility] Last Admin: 06/18/16 21:42 Dose: 25 mg - Labs Labs: 06/19/16 05:30 06/19/16 05:30 PT 12.0 Seconds (9.9-11.8) H 06/13/16 10:45 INR 1.11 (0.93-1.08) H 06/13/16 10:45 APTT 38.4 Seconds (23.7-30.8) H 06/10/16 19:05 - Head Exam Head Exam: ATRAUMATIC - Eye Exam Eye Exam: Normal appearance - ENT Exam ENT Exam: Mucous Membranes Dry - Respiratory Exam Respiratory Exam: NORMAL BREATHING PATTERN - Cardiovascular Exam Cardiovascular Exam: +S1, +S2 - GI/Abdominal Exam GI & Abdominal Exam: Normal Bowel Sounds Assessment and Plan (1) Acute chest syndrome Assessment & Plan: IV fluids, pain meds, folic acid, 02 via NC 1U PRBC today Status: Acute (2) Iron overload due to repeated red blood cell transfusions Assessment & Plan: outpatient chelation Status: Chronic (3) Thrombocytopenia Assessment & Plan: mild secondary to hydrea Status: Chronic (4) Sickle cell anemia Assessment & Plan: outpatient folic acid and hydrea Status: Chronic
[2016-06-20] MEDS: Sodium Chloride 0.9% 1,000 ML IV SCH ×3 (02:00→21:59)
[2016-06-20] MEDS: HYDROmorphone 0.5 mg/0.5 ml ISec IVP PRN ×4 (04:32→18:08)
[2016-06-20 06:58] LABS: ALB/GLOB RATIO 0.7 (1.1-1.8); ALKALINE PHOSPHATASE 108 U/L (38-133); ALT/SGPT 78 U/L (7-56); AST/SGOT 118 U/L (15-39); BILIRUBIN,TOTAL 2.6 mg/dL (0.2-1.3); BLOOD UREA NITROGEN 2 mg/dL (7-21); CALCIUM 8.3 mg/dL (8.4-10.5); CARBON DIOXIDE 29 mmol/L (21-33); CHLORIDE 108 mmol/L (98-107); GFR AFRICAN-AMERICAN > 60; GLUCOSE,RANDOM 84 mg/dL (70-110); POTASSIUM 3.6 mmol/L (3.6-5.0); SODIUM 143 mmol/L (132-148); TOTAL PROTEIN 7.3 g/dL (5.8-8.3)
[2016-06-20 07:03] LABS: HEMATOCRIT 25.1 % (36.0-48.0); MEAN CELL VOLUME 95.8 fL (80.0-105.0); MEAN CORPUSCULAR HGB CONC 35.5 g/dl (31.0-37.0); PLATELET COUNT 111 10^3/uL (120.0-450.0); RED CELL DISTRIBUTION WIDTH 30.3 % (11.5-14.5); WHITE BLOOD COUNT 8.1 10^3/ul (4.5-11.0)
[2016-06-20 07:38] LABS: RETIC% 16.04 % (0.5-1.5)
[2016-06-20] MEDS: DiphenhydrAMINE 50 mg/ml Inj IVP PRN ×2 (08:43→18:15)
--- NOTE | 2016-06-20 09:32 | CP.PCM.PN ---
<JagdeepShahla - Last Filed: 06/20/16 12:41> Subjective - Date & Time of Evaluation Date of Evaluation: 06/20/16 Time of Evaluation: 09:25 - Subjective Subjective: Hospitalist Progress Note Patient seen and examined at bedside. There were no acute overnight events. She still says her chest hurts with deep respiration. She denies n/v/d, numbness/ tingling, SOB, hematuria, dysuria. Objective - Vital Signs/Intake and Output Vital Signs (last 24 hours): Temp Pulse Resp BP Pulse Ox 98.8 F 70 20 136/89 94 L 06/20/16 06:00 06/20/16 06:00 06/20/16 06:00 06/20/16 06:00 06/20/16 06:00 Intake and Output: 06/20/16 06/20/16 06:59 18:59 Intake Total 3920 1000 Output Total 0 Balance 3920 1000 - Medications Medications: Current Medications Albuterol/Ipratropium (Duoneb 3 Mg/0.5 Mg (3 Ml) Ud) 3 ml IH Q2H PRN PRN Reason: Shortness of Breath Diphenhydramine HCl (Benadryl) 25 mg IVP Q8 PRN PRN Reason: Allergy symptoms Last Admin: 06/20/16 08:43 Dose: 25 mg Divalproex Sodium (Depakote Dr (*Bid*)) 250 mg PO BID [facility] PRN Reason: Protocol Last Admin: 06/19/16 17:16 Dose: 250 mg Docusate Sodium (Colace) 100 mg PO BID [facility] Last Admin: 06/19/16 17:16 Dose: 100 mg Enoxaparin Sodium (Lovenox) 30 mg SC DAILY [facility] PRN Reason: Protocol Last Admin: 06/19/16 09:21 Dose: 30 mg Famotidine (Pepcid) 20 mg PO 1000,2200 [facility] Last Admin: 06/19/16 22:54 Dose: 20 mg Folic Acid (Folic Acid) 1 mg PO DAILY [facility] Last Admin: 06/19/16 09:20 Dose: 1 mg Guaifenesin (Robitussin) 200 mg PO Q4H PRN PRN Reason: Cough and congestion Last Admin: 06/13/16 21:02 Dose: 200 mg Hydromorphone HCl (Dilaudid) 0.5 mg IVP Q4H PRN PRN Reason: Pain, moderate (4-7) Last Admin: 06/20/16 08:44 Dose: 0.5 mg Hydromorphone HCl (Dilaudid) 1 mg IVP Q4H PRN PRN Reason: Pain, severe (8-10) Last Admin: 06/19/16 22:53 Dose: 1 mg Hydroxyurea (Hydrea) 500 mg PO BID [facility] Last Admin: 06/18/16 10:04 Dose: 500 mg Sodium Chloride (Sodium Chloride 0.9%) 1,000 mls @ 150 mls/hr IV .Q6H40M [facility] Last Admin: 06/20/16 08:45 Dose: 150 mls/hr Magnesium Hydroxide (Milk Of Magnesia) 30 ml PO DAILY PRN PRN Reason: Constipation Last Admin: 06/19/16 23:04 Dose: 30 ml Multivitamins/Minerals (Therapeutic-M Tab) 1 tab PO DAILY [facility] Last Admin: 06/19/16 09:20 Dose: 1 tab Ondansetron HCl (Zofran Inj) 4 mg IVP Q4H PRN PRN Reason: Nausea/Vomiting Last Admin: 06/11/16 18:57 Dose: 4 mg Trazodone HCl (Desyrel) 25 mg PO HS [facility] Last Admin: 06/19/16 22:55 Dose: 25 mg - Labs Labs: 06/20/16 05:30 06/20/16 05:30 PT 12.0 Seconds (9.9-11.8) H 06/13/16 10:45 INR 1.11 (0.93-1.08) H 06/13/16 10:45 APTT 38.4 Seconds (23.7-30.8) H 06/10/16 19:05 - Constitutional Appears: No Acute Distress - Head Exam Head Exam: ATRAUMATIC, NORMAL INSPECTION, NORMOCEPHALIC - Eye Exam Eye Exam: Normal appearance, PERRL Pupil Exam: NORMAL ACCOMODATION, PERRL - ENT Exam ENT Exam: Mucous Membranes Moist - Neck Exam Neck Exam: Full ROM, Normal Inspection - Respiratory Exam Respiratory Exam: Clear to Ausculation Bilateral, NORMAL BREATHING PATTERN. absent: Rales, Rhonchi, Wheezes - Cardiovascular Exam Cardiovascular Exam: REGULAR RHYTHM, +S1, +S2. absent: Gallop, Rubs, Murmur - GI/Abdominal Exam GI & Abdominal Exam: Soft, Normal Bowel Sounds. absent: Rigid, Tenderness, Mass - Extremities Exam Extremities Exam: Normal Inspection. absent: Calf Tenderness, Pedal Edema - Neurological Exam Neurological Exam: Alert, Awake, CN II-XII Intact - Skin Skin Exam: Dry, Intact, Normal Color, Warm Assessment and Plan - Assessment and Plan (Free Text) Assessment: This is a 35Y AA F with PMH cerebral palsy, HTN, bipolar disorder and sickle cell disease admitted for acute chest syndrome secondary to sickle cell crisis. Plan: 1. Acute Chest Syndrome - Secondary to sickle cell crisis - s/p transfusion 1U PRBC- Hgb increased to 8.9, retic decreased to 16 - spoke with Dr. Palacios- will transfuse one more unit PRBC - Continue Duoneb prn, pain control prn, Zofran prn nausea, Robitussin prn cough - NC 2L to maintain spO2>90% - Hydroxyurea on hold for low platelets 2. CHF (Chronic) - NS@150 - Daily weight - strict I&O - Cardiology Consulted 3. Cerebral Palsy - Deparkote, Folic acid, Multivitamin 4.Bipolar disorder - Continue Trazodone - Continue Depakote 5. Hx of constipation - Colace and Milk of magnesia GI ppx: Pepcid DVT ppx: Lovenox Case seen, discussed and reviewed with attending Geraldine Gannon PGY1 <Lyndsey Noble - Last Filed: 06/20/16 15:17> Objective - Vital Signs/Intake and Output Vital Signs (last 24 hours): Temp Pulse Resp BP Pulse Ox 98.6 F 88 17 122/77 94 L 06/20/16 15:01 06/20/16 15:01 06/20/16 15:01 06/20/16 15:01 06/20/16 06:00 Intake and Output: 06/20/16 06/20/16 06:59 18:59 Intake Total 3920 1420 Output Total 0 Balance 3920 1420 - Medications Medications: Current Medications Albuterol/Ipratropium (Duoneb 3 Mg/0.5 Mg (3 Ml) Ud) 3 ml IH Q2H PRN PRN Reason: Shortness of Breath Diphenhydramine HCl (Benadryl) 25 mg IVP Q8 PRN PRN Reason: Allergy symptoms Last Admin: 06/20/16 08:43 Dose: 25 mg Divalproex Sodium (Depakote Dr (*Bid*)) 250 mg PO BID [facility] PRN Reason: Protocol Last Admin: 06/20/16 10:51 Dose: 250 mg Docusate Sodium (Colace) 100 mg PO BID [facility] Last Admin: 06/20/16 10:52 Dose: 100 mg Enoxaparin Sodium (Lovenox) 30 mg SC DAILY [facility] PRN Reason: Protocol Last Admin: 06/20/16 10:52 Dose: 30 mg Famotidine (Pepcid) 20 mg PO 1000,2200 [facility] Last Admin: 06/20/16 10:52 Dose: 20 mg Folic Acid (Folic Acid) 1 mg PO DAILY [facility] Last Admin: 06/20/16 10:52 Dose: 1 mg Guaifenesin (Robitussin) 200 mg PO Q4H PRN PRN Reason: Cough and congestion Last Admin: 06/13/16 21:02 Dose: 200 mg Hydromorphone HCl (Dilaudid) 0.5 mg IVP Q4H PRN PRN Reason: Pain, moderate (4-7) Last Admin: 06/20/16 12:52 Dose: 0.5 mg Hydromorphone HCl (Dilaudid) 1 mg IVP Q4H PRN PRN Reason: Pain, severe (8-10) Last Admin: 06/19/16 22:53 Dose: 1 mg Hydroxyurea (Hydrea) 500 mg PO BID [facility] Last Admin: 06/18/16 10:04 Dose: 500 mg Sodium Chloride (Sodium Chloride 0.9%) 1,000 mls @ 150 mls/hr IV .Q6H40M [facility] Last Admin: 06/20/16 08:45 Dose: 150 mls/hr Magnesium Hydroxide (Milk Of Magnesia) 30 ml PO DAILY PRN PRN Reason: Constipation Last Admin: 06/19/16 23:04 Dose: 30 ml Multivitamins/Minerals (Therapeutic-M Tab) 1 tab PO DAILY [facility] Last Admin: 06/20/16 10:52 Dose: 1 tab Ondansetron HCl (Zofran Inj) 4 mg IVP Q4H PRN PRN Reason: Nausea/Vomiting Last Admin: 06/11/16 18:57 Dose: 4 mg Trazodone HCl (Desyrel) 25 mg PO HS [facility] Last Admin: 06/19/16 22:55 Dose: 25 mg - Labs Labs: 06/20/16 05:30 06/20/16 05:30 PT 12.0 Seconds (9.9-11.8) H 06/13/16 10:45 INR 1.11 (0.93-1.08) H 06/13/16 10:45 APTT 38.4 Seconds (23.7-30.8) H 06/10/16 19:05 Attending/Attestation - Attestation I have personally seen and examined this patient.: Yes I have fully participated in the care of the patient.: Yes I have reviewed all pertinent clinical information, including history, physical exam and plan: Yes Notes (Text): I have seen and examined patient at bedside. Agree with the note above with the addition/ exception of the following: This is a 35 year old female with history of sickle cell anemia, cerebral palsy, bipolar disorder who got admitted for evaluation of vaso-occlusive crises/ acute chest syndrome. She appears comfortable however she continues to complain of chest pain which gets worse with deep breaths or with sitting up. Hb is 8.6 today and retic is 16. She was given 2 units of prbc so far. Plan to give one more unit today. Continue oxygen, IVF, anagesics. Hold hydrea due to thrombocytopenia. Will restart upon discharge. Continue folic acid. She needs Chelation as an outpatient for iron overload is recommended. Continue depakote for bipolar disorder. Discussed with caser regarding her disposition plan and multiple readmissions. Upon discharge patient will follow up with hematology and PMD . Dr Lyndsey Noble
[2016-06-20] MEDS: Divalproex 250 mg DR (BID formulation) PO SCH ×2 (10:51→18:08)
[2016-06-20] MEDS: Enoxaparin 30 mg Syringe SC SCH (10:52)
[2016-06-20] MEDS: Multivitamin With Minerals Tab PO SCH (10:52)
[2016-06-20] MEDS: HYDROmorphone 1 mg/ml ISec IVP PRN (21:52)
[2016-06-21] MEDS: HYDROmorphone 0.5 mg/0.5 ml ISec IVP PRN (05:02)
[2016-06-21] MEDS: DiphenhydrAMINE 50 mg/ml Inj IVP PRN ×3 (06:32→22:19)
[2016-06-21 07:13] LABS: ALB/GLOB RATIO 0.8 (1.1-1.8); ALKALINE PHOSPHATASE 100 U/L (38-133); ALT/SGPT 71 U/L (7-56); AST/SGOT 117 U/L (15-39); BILIRUBIN,TOTAL 2.6 mg/dL (0.2-1.3); BLOOD UREA NITROGEN 3 mg/dL (7-21); CALCIUM 8.6 mg/dL (8.4-10.5); CARBON DIOXIDE 28 mmol/L (21-33); CHLORIDE 102 mmol/L (98-107); GFR AFRICAN-AMERICAN > 60; GLUCOSE,RANDOM 114 mg/dL (70-110); SODIUM 139 mmol/L (132-148); TOTAL PROTEIN 7.4 g/dL (5.8-8.3)
[2016-06-21 07:20] LABS: HEMATOCRIT 29.8 % (36.0-48.0); MEAN CELL VOLUME 95.2 fL (80.0-105.0); MEAN CORPUSCULAR HEMOGLOBIN 34.2 pg (25.0-35.0); MEAN CORPUSCULAR HGB CONC 35.9 g/dl (31.0-37.0); MEAN PLATELET VOLUME 9.9 fl (7.0-11.0); RED CELL DISTRIBUTION WIDTH 28.5 % (11.5-14.5); WHITE BLOOD COUNT 7.3 10^3/ul (4.5-11.0)
[2016-06-21 07:25] LABS: POTASSIUM 3.8 mmol/L (3.6-5.0)
[2016-06-21 07:28] LABS: RETIC% 12.56 % (0.5-1.5)
[2016-06-21] MEDS: Divalproex 250 mg DR (BID formulation) PO SCH ×2 (09:15→17:17)
[2016-06-21] MEDS: Enoxaparin 30 mg Syringe SC SCH (09:16)
[2016-06-21] MEDS: Multivitamin With Minerals Tab PO SCH (09:16)
[2016-06-21] MEDS: Sodium Chloride 0.9% 1,000 ML IV SCH ×2 (09:18→21:09)
[2016-06-21] MEDS: HYDROmorphone 1 mg/ml ISec IVP PRN ×5 (09:23→22:25)
--- NOTE | 2016-06-21 10:44 | CP.PCM.PN ---
<JagdeepShahla - Last Filed: 06/21/16 10:41> Subjective - Date & Time of Evaluation Date of Evaluation: 06/21/16 Time of Evaluation: 10:41 - Subjective Subjective: Hospitalist Progress Note Patient seen and examined at bedside. There were no acute overnight events. The patient was resting comfortably this AM. Once awoken, patient reports that her chest hurts and reports it does not radiate. It is worse with deep breaths. It is located in the middle of her upper chest. She has had this pain since admission. She denies SOB, n/v/d, numbness/tingling, dysuria or hematuria. Objective - Vital Signs/Intake and Output Vital Signs (last 24 hours): Temp Pulse Resp BP Pulse Ox 98.1 F 82 20 131/87 97 06/20/16 17:36 06/20/16 17:36 06/20/16 17:36 06/20/16 17:36 06/20/16 16:00 Intake and Output: 06/21/16 06/21/16 06:59 18:59 Intake Total 900 1000 Output Total 350 Balance 550 1000 - Medications Medications: Current Medications Albuterol/Ipratropium (Duoneb 3 Mg/0.5 Mg (3 Ml) Ud) 3 ml IH Q2H PRN PRN Reason: Shortness of Breath Diphenhydramine HCl (Benadryl) 25 mg IVP Q8 PRN PRN Reason: Allergy symptoms Last Admin: 06/21/16 06:32 Dose: 25 mg Divalproex Sodium (Depakote Dr (*Bid*)) 250 mg PO BID [facility] PRN Reason: Protocol Last Admin: 06/21/16 09:15 Dose: 250 mg Docusate Sodium (Colace) 100 mg PO BID [facility] Last Admin: 06/21/16 09:15 Dose: 100 mg Enoxaparin Sodium (Lovenox) 30 mg SC DAILY [facility] PRN Reason: Protocol Last Admin: 06/21/16 09:16 Dose: 30 mg Famotidine (Pepcid) 20 mg PO 1000,2200 [facility] Last Admin: 06/21/16 09:15 Dose: 20 mg Folic Acid (Folic Acid) 1 mg PO DAILY [facility] Last Admin: 06/21/16 09:16 Dose: 1 mg Guaifenesin (Robitussin) 200 mg PO Q4H PRN PRN Reason: Cough and congestion Last Admin: 06/13/16 21:02 Dose: 200 mg Hydromorphone HCl (Dilaudid) 0.5 mg IVP Q4H PRN PRN Reason: Pain, moderate (4-7) Last Admin: 06/21/16 05:02 Dose: 0.5 mg Hydromorphone HCl (Dilaudid) 1 mg IVP Q4H PRN PRN Reason: Pain, severe (8-10) Last Admin: 06/21/16 09:23 Dose: 1 mg Hydroxyurea (Hydrea) 500 mg PO BID [facility] Last Admin: 06/18/16 10:04 Dose: 500 mg Sodium Chloride (Sodium Chloride 0.9%) 1,000 mls @ 100 mls/hr IV .Q10H [facility] Last Admin: 06/21/16 09:18 Dose: 100 mls/hr Magnesium Hydroxide (Milk Of Magnesia) 30 ml PO DAILY PRN PRN Reason: Constipation Last Admin: 06/19/16 23:04 Dose: 30 ml Multivitamins/Minerals (Therapeutic-M Tab) 1 tab PO DAILY [facility] Last Admin: 06/21/16 09:16 Dose: 1 tab Ondansetron HCl (Zofran Inj) 4 mg IVP Q4H PRN PRN Reason: Nausea/Vomiting Last Admin: 06/11/16 18:57 Dose: 4 mg Trazodone HCl (Desyrel) 25 mg PO HS [facility] Last Admin: 06/20/16 21:52 Dose: 25 mg - Labs Labs: 06/21/16 05:00 06/21/16 05:00 PT 12.0 Seconds (9.9-11.8) H 06/13/16 10:45 INR 1.11 (0.93-1.08) H 06/13/16 10:45 APTT 38.4 Seconds (23.7-30.8) H 06/10/16 19:05 - Constitutional Appears: No Acute Distress - Head Exam Head Exam: NORMAL INSPECTION - Eye Exam Eye Exam: Normal appearance Pupil Exam: NORMAL ACCOMODATION - ENT Exam ENT Exam: Mucous Membranes Moist - Neck Exam Neck Exam: Normal Inspection - Respiratory Exam Respiratory Exam: Clear to Ausculation Bilateral, NORMAL BREATHING PATTERN. absent: Rales, Rhonchi, Wheezes - Cardiovascular Exam Cardiovascular Exam: REGULAR RHYTHM, +S1, +S2. absent: Gallop, Rubs - GI/Abdominal Exam GI & Abdominal Exam: Soft, Normal Bowel Sounds. absent: Rigid, Tenderness, Mass , Rebound - Extremities Exam Extremities Exam: Normal Inspection. absent: Calf Tenderness, Pedal Edema - Neurological Exam Neurological Exam: Awake, CN II-XII Intact - Psychiatric Exam Psychiatric exam: Normal Affect, Normal Mood - Skin Skin Exam: Dry, Normal Color, Warm Assessment and Plan - Assessment and Plan (Free Text) Assessment: This is a 35Y AA F with PMH cerebral palsy, HTN, bipolar disorder and sickle cell disease admitted for acute chest syndrome secondary to sickle cell crisis. Plan: 1. Acute Chest Syndrome - Secondary to sickle cell crisis - s/p transfusion 2U PRBC - Retic now down to 12.56 (was 16) and Hgb increased to 10.7 (was 8.9) - Hydrea on hold for low platelet count - Continue pain control with Dilaudid - Duoneb prn SOB, Robitussin prn cough - Maintain spO2>90%, NC prn 2. CHF - Chronic (EF 40%) - Continue to monitor Daily weight and strict I&O - NS@100 - Cardiology Consulted- continue present management 3. Cerebral Palsy - Continue Depakote, Folic acid, Multivitamin 4.Bipolar disorder - Trazodone and Depakote 5. Hx of constipation - Continue colace and milk of magnesia GI ppx: Pepcid DVT ppx: Lovenox Case seen, discussed and reviewed with attending Geraldine Gannon PGY1 <Lyndsey Nbole - Last Filed: 06/21/16 17:48> Objective - Vital Signs/Intake and Output Vital Signs (last 24 hours): Temp Pulse Resp BP Pulse Ox 98.4 F 81 19 112/77 98 06/21/16 16:00 06/21/16 16:00 06/21/16 16:00 06/21/16 16:00 06/21/16 16:00 Intake and Output: 06/21/16 06/21/16 06:59 18:59 Intake Total 900 1000 Output Total 350 Balance 550 1000 - Medications Medications: Current Medications Albuterol/Ipratropium (Duoneb 3 Mg/0.5 Mg (3 Ml) Ud) 3 ml IH Q2H PRN PRN Reason: Shortness of Breath Diphenhydramine HCl (Benadryl) 25 mg IVP Q8 PRN PRN Reason: Allergy symptoms Last Admin: 06/21/16 14:24 Dose: 25 mg Divalproex Sodium (Depakote Dr (*Bid*)) 250 mg PO BID [facility] PRN Reason: Protocol Last Admin: 06/21/16 17:17 Dose: 250 mg Docusate Sodium (Colace) 100 mg PO BID [facility] Last Admin: 06/21/16 17:17 Dose: 100 mg Enoxaparin Sodium (Lovenox) 30 mg SC DAILY [facility] PRN Reason: Protocol Last Admin: 06/21/16 09:16 Dose: 30 mg Famotidine (Pepcid) 20 mg PO 1000,2200 [facility] Last Admin: 06/21/16 09:15 Dose: 20 mg Folic Acid (Folic Acid) 1 mg PO DAILY [facility] Last Admin: 06/21/16 09:16 Dose: 1 mg Guaifenesin (Robitussin) 200 mg PO Q4H PRN PRN Reason: Cough and congestion Last Admin: 06/13/16 21:02 Dose: 200 mg Hydromorphone HCl (Dilaudid) 0.5 mg IVP Q4H PRN PRN Reason: Pain, moderate (4-7) Hydromorphone HCl (Dilaudid) 1 mg IVP Q4H PRN PRN Reason: Pain, severe (8-10) Last Admin: 06/21/16 14:24 Dose: 1 mg Hydroxyurea (Hydrea) 500 mg PO BID [facility] Last Admin: 06/18/16 10:04 Dose: 500 mg Sodium Chloride (Sodium Chloride 0.9%) 1,000 mls @ 100 mls/hr IV .Q10H [facility] Last Admin: 06/21/16 09:18 Dose: 100 mls/hr Ibuprofen (Motrin Tab) 400 mg PO Q6H PRN PRN Reason: Pain, moderate (4-7) Magnesium Hydroxide (Milk Of Magnesia) 30 ml PO DAILY PRN PRN Reason: Constipation Last Admin: 06/19/16 23:04 Dose: 30 ml Multivitamins/Minerals (Therapeutic-M Tab) 1 tab PO DAILY [facility] Last Admin: 06/21/16 09:16 Dose: 1 tab Ondansetron HCl (Zofran Inj) 4 mg IVP Q4H PRN PRN Reason: Nausea/Vomiting Last Admin: 06/11/16 18:57 Dose: 4 mg Trazodone HCl (Desyrel) 25 mg PO HS [facility] Last Admin: 06/20/16 21:52 Dose: 25 mg - Labs Labs: 06/21/16 05:00 06/21/16 05:00 PT 12.0 Seconds (9.9-11.8) H 06/13/16 10:45 INR 1.11 (0.93-1.08) H 06/13/16 10:45 APTT 38.4 Seconds (23.7-30.8) H 06/10/16 19:05 Attending/Attestation - Attestation I have personally seen and examined this patient.: Yes I have fully participated in the care of the patient.: Yes I have reviewed all pertinent clinical information, including history, physical exam and plan: Yes Notes (Text): I have seen and examined patient at bedside. Agree with the note above with the addition/ exception of the following: This is a 35 year old female with history of sickle cell anemia, cerebral palsy, bipolar disorder who got admitted for evaluation of vaso-occlusive crises/ acute chest syndrome. Patient still complains of chest pain. Hb is 10.7 today and retic is 12. She was given 3 units of prbc so far. Discussed with Dr Palacios. Motrin prn started. Continue oxygen, IVF, anagesics. Hold hydrea due to thrombocytopenia. Will restart upon discharge. Continue folic acid. She needs Chelation as an outpatient for iron overload is recommended. Continue depakote for bipolar disorder. Discussed with case management specialist regarding her disposition plan and multiple readmissions. Upon discharge patient will follow up with hematology and PMD . Dr Lyndsey Noble
[2016-06-22] MEDS: HYDROmorphone 1 mg/ml ISec IVP PRN ×5 (03:21→22:07)
[2016-06-22] MEDS: Sodium Chloride 0.9% 1,000 ML IV SCH (04:30)
[2016-06-22 07:15] LABS: ALB/GLOB RATIO 0.7 (1.1-1.8); ALKALINE PHOSPHATASE 102 U/L (38-133); ALT/SGPT 75 U/L (7-56); AST/SGOT 120 U/L (15-39); BILIRUBIN,TOTAL 2.9 mg/dL (0.2-1.3); BLOOD UREA NITROGEN 3 mg/dL (7-21); CALCIUM 8.4 mg/dL (8.4-10.5); CARBON DIOXIDE 30 mmol/L (21-33); CHLORIDE 103 mmol/L (98-107); GFR AFRICAN-AMERICAN > 60; GLUCOSE,RANDOM 82 mg/dL (70-110); SODIUM 141 mmol/L (132-148); TOTAL PROTEIN 7.4 g/dL (5.8-8.3)
[2016-06-22 07:47] LABS: HEMATOCRIT 29.8 % (36.0-48.0); MEAN CELL VOLUME 96.1 fL (80.0-105.0); MEAN CORPUSCULAR HEMOGLOBIN 33.9 pg (25.0-35.0); MEAN CORPUSCULAR HGB CONC 35.2 g/dl (31.0-37.0); MEAN PLATELET VOLUME 10.6 fl (7.0-11.0); PLATELET COUNT 78 10^3/uL (120.0-450.0); WHITE BLOOD COUNT 7.2 10^3/ul (4.5-11.0)
[2016-06-22 07:48] LABS: RETIC% 12.11 % (0.5-1.5)
[2016-06-22] MEDS: DiphenhydrAMINE 50 mg/ml Inj IVP PRN ×2 (08:19→17:30)
[2016-06-22] MEDS: Multivitamin With Minerals Tab PO SCH (11:15)
[2016-06-22] MEDS: Divalproex 250 mg DR (BID formulation) PO SCH ×2 (11:15→17:30)
[2016-06-22] MEDS: Enoxaparin 30 mg Syringe SC SCH (11:16)
--- NOTE | 2016-06-22 12:54 | CP.PCM.PN ---
<Alberto Duvall - Last Filed: 06/22/16 12:50> Subjective - Date & Time of Evaluation Date of Evaluation: 06/22/16 Time of Evaluation: 08:00 - Subjective Subjective: Hospitalist Progress Note Patient seen and examined at bedside. There were no acute overnight events. Patient was resting comfortably in bed. C/o mild chest pain that is non radiating. She denies Smith, dizziness, f/c, SOB, n/v/d, dysuria or hematuria. Objective - Vital Signs/Intake and Output Vital Signs (last 24 hours): Temp Pulse Resp BP Pulse Ox 98.1 F 72 18 133/91 H 95 06/22/16 06:00 06/22/16 06:00 06/22/16 06:00 06/22/16 06:00 06/22/16 06:00 Intake and Output: 06/22/16 06/22/16 06:59 18:59 Intake Total 120 Output Total 1050 Balance -930 - Medications Medications: Current Medications Albuterol/Ipratropium (Duoneb 3 Mg/0.5 Mg (3 Ml) Ud) 3 ml IH Q2H PRN PRN Reason: Shortness of Breath Diphenhydramine HCl (Benadryl) 25 mg IVP Q8 PRN PRN Reason: Allergy symptoms Last Admin: 06/22/16 08:19 Dose: 25 mg Divalproex Sodium (Depakote Dr (*Bid*)) 250 mg PO BID [facility] PRN Reason: Protocol Last Admin: 06/22/16 11:15 Dose: 250 mg Docusate Sodium (Colace) 100 mg PO BID [facility] Last Admin: 06/22/16 11:15 Dose: 100 mg Enoxaparin Sodium (Lovenox) 30 mg SC DAILY [facility] PRN Reason: Protocol Last Admin: 06/22/16 11:16 Dose: 30 mg Famotidine (Pepcid) 20 mg PO 1000,2200 [facility] Last Admin: 06/22/16 11:15 Dose: 20 mg Folic Acid (Folic Acid) 1 mg PO DAILY [facility] Last Admin: 06/22/16 11:15 Dose: 1 mg Guaifenesin (Robitussin) 200 mg PO Q4H PRN PRN Reason: Cough and congestion Last Admin: 06/13/16 21:02 Dose: 200 mg Hydromorphone HCl (Dilaudid) 0.5 mg IVP Q4H PRN PRN Reason: Pain, moderate (4-7) Hydromorphone HCl (Dilaudid) 1 mg IVP Q4H PRN PRN Reason: Pain, severe (8-10) Last Admin: 06/22/16 08:20 Dose: 1 mg Hydroxyurea (Hydrea) 500 mg PO BID [facility] Last Admin: 06/18/16 10:04 Dose: 500 mg Sodium Chloride (Sodium Chloride 0.9%) 1,000 mls @ 100 mls/hr IV .Q10H [facility] Last Admin: 06/22/16 04:30 Dose: 100 mls/hr Ibuprofen (Motrin Tab) 400 mg PO Q6H PRN PRN Reason: Pain, moderate (4-7) Magnesium Hydroxide (Milk Of Magnesia) 30 ml PO DAILY PRN PRN Reason: Constipation Last Admin: 06/19/16 23:04 Dose: 30 ml Multivitamins/Minerals (Therapeutic-M Tab) 1 tab PO DAILY [facility] Last Admin: 06/22/16 11:15 Dose: 1 tab Ondansetron HCl (Zofran Inj) 4 mg IVP Q4H PRN PRN Reason: Nausea/Vomiting Last Admin: 06/11/16 18:57 Dose: 4 mg Trazodone HCl (Desyrel) 25 mg PO [facility] Last Admin: 06/21/16 21:03 Dose: 25 mg - Labs Labs: 06/22/16 06:30 06/22/16 06:30 PT 12.0 Seconds (9.9-11.8) H 06/13/16 10:45 INR 1.11 (0.93-1.08) H 06/13/16 10:45 APTT 38.4 Seconds (23.7-30.8) H 06/10/16 19:05 - Constitutional Appears: No Acute Distress - Head Exam Head Exam: ATRAUMATIC, NORMAL INSPECTION, NORMOCEPHALIC - Eye Exam Eye Exam: EOMI, Normal appearance, PERRL Pupil Exam: NORMAL ACCOMODATION, PERRL - ENT Exam ENT Exam: Mucous Membranes Moist, Normal Exam - Respiratory Exam Respiratory Exam: Clear to Ausculation Bilateral, NORMAL BREATHING PATTERN. absent: Wheezes - Cardiovascular Exam Cardiovascular Exam: REGULAR RHYTHM, RRR, +S1, +S2. absent: Murmur - GI/Abdominal Exam GI & Abdominal Exam: Soft. absent: Distended, Tenderness - Extremities Exam Extremities Exam: Full ROM, Normal Capillary Refill, Normal Inspection. absent : Joint Swelling, Pedal Edema - Back Exam Back Exam: NORMAL INSPECTION - Neurological Exam Neurological Exam: Alert, Awake, CN II-XII Intact, Oriented x3 - Psychiatric Exam Psychiatric exam: Normal Affect, Normal Mood - Skin Skin Exam: Dry, Intact, Normal Color, Warm Assessment and Plan - Assessment and Plan (Free Text) Assessment: This is a 35Y AA F with PMH cerebral palsy, HTN, bipolar disorder and sickle cell disease admitted for acute chest syndrome secondary to sickle cell crisis. 1. Acute Chest Syndrome 2/2 sickle cell crisis - s/p transfusion 2U PRBC - Retic now down to 12.56 --> 12.11 - Hgb 10.5 - Hydrea on hold for low platelet count - Pain control with Dilaudid and motrin - Duoneb prn SOB, Robitussin prn cough - Maintain spO2>90%, NC prn 2. CHF - Chronic (EF 40%) - Continue to monitor Daily weight and strict I&O - fluids NS@100 - Cardiology Consulted- continue present management 3. Cerebral Palsy - Continue Depakote, Folic acid, Multivitamin 4.Bipolar disorder - Trazodone and Depakote 5. Hx of constipation - Continue colace and milk of magnesia 6. GI ppx: Pepcid DVT ppx: Lovenox Case and plan was seen, reviewed, and discussed in detail with Dr Silverman. <Lyndsey Noble - Last Filed: 06/22/16 15:17> Objective - Vital Signs/Intake and Output Vital Signs (last 24 hours): Temp Pulse Resp BP Pulse Ox 98.1 F 72 18 133/91 H 95 06/22/16 06:00 06/22/16 06:00 06/22/16 06:00 06/22/16 06:00 06/22/16 06:00 Intake and Output: 06/22/16 06/22/16 06:59 18:59 Intake Total 120 Output Total 1050 Balance -930 - Medications Medications: Current Medications Albuterol/Ipratropium (Duoneb 3 Mg/0.5 Mg (3 Ml) Ud) 3 ml IH Q2H PRN PRN Reason: Shortness of Breath Diphenhydramine HCl (Benadryl) 25 mg IVP Q8 PRN PRN Reason: Allergy symptoms Last Admin: 06/22/16 08:19 Dose: 25 mg Divalproex Sodium (Depakote Dr (*Bid*)) 250 mg PO BID [facility] PRN Reason: Protocol Last Admin: 06/22/16 11:15 Dose: 250 mg Docusate Sodium (Colace) 100 mg PO BID [facility] Last Admin: 06/22/16 11:15 Dose: 100 mg Enoxaparin Sodium (Lovenox) 30 mg SC DAILY [facility] PRN Reason: Protocol Last Admin: 06/22/16 11:16 Dose: 30 mg Famotidine (Pepcid) 20 mg PO 1000,2200 [facility] Last Admin: 06/22/16 11:15 Dose: 20 mg Folic Acid (Folic Acid) 1 mg PO DAILY [facility] Last Admin: 06/22/16 11:15 Dose: 1 mg Guaifenesin (Robitussin) 200 mg PO Q4H PRN PRN Reason: Cough and congestion Last Admin: 06/13/16 21:02 Dose: 200 mg Hydromorphone HCl (Dilaudid) 0.5 mg IVP Q4H PRN PRN Reason: Pain, moderate (4-7) Hydromorphone HCl (Dilaudid) 1 mg IVP Q4H PRN PRN Reason: Pain, severe (8-10) Last Admin: 06/22/16 12:49 Dose: 1 mg Hydroxyurea (Hydrea) 500 mg PO BID [facility] Last Admin: 06/18/16 10:04 Dose: 500 mg Sodium Chloride (Sodium Chloride 0.9%) 1,000 mls @ 100 mls/hr IV .Q10H [facility] Last Admin: 06/22/16 04:30 Dose: 100 mls/hr Ibuprofen (Motrin Tab) 400 mg PO Q6H PRN PRN Reason: Pain, moderate (4-7) Magnesium Hydroxide (Milk Of Magnesia) 30 ml PO DAILY PRN PRN Reason: Constipation Last Admin: 06/19/16 23:04 Dose: 30 ml Multivitamins/Minerals (Therapeutic-M Tab) 1 tab PO DAILY [facility] Last Admin: 06/22/16 11:15 Dose: 1 tab Ondansetron HCl (Zofran Inj) 4 mg IVP Q4H PRN PRN Reason: Nausea/Vomiting Last Admin: 06/11/16 18:57 Dose: 4 mg Trazodone HCl (Desyrel) 25 mg PO HS [facility] Last Admin: 06/21/16 21:03 Dose: 25 mg - Labs Labs: 06/22/16 06:30 06/22/16 06:30 PT 12.0 Seconds (9.9-11.8) H 06/13/16 10:45 INR 1.11 (0.93-1.08) H 06/13/16 10:45 APTT 38.4 Seconds (23.7-30.8) H 06/10/16 19:05 Attending/Attestation - Attestation I have personally seen and examined this patient.: Yes I have fully participated in the care of the patient.: Yes I have reviewed all pertinent clinical information, including history, physical exam and plan: Yes Notes (Text): I have seen and examined patient at bedside. Agree with the note above with the addition/ exception of the following: This is a 35 year old female with history of sickle cell anemia, cerebral palsy, bipolar disorder who got admitted for evaluation of vaso-occlusive crises/ acute chest syndrome. Patient states that today chest pain is slightly better but not completely resolved. Discussed with Dr Palacios in detail yesterday. Most likely chest pain is secondary to costochonditis and therefore trial with NSAID's started. Explained to the patient that her blood work looks good and she will probably be discharged in a day if she continues to feel better. Patient verbalized understanding. She was given 3 units of prbc so far. Continue oxygen, IVF, anagesics. Hold hydrea due to thrombocytopenia. Will restart upon discharge. Continue folic acid. She needs Chelation as an outpatient for iron overload is recommended. Continue depakote for bipolar disorder. Discussed with bilingual patient support caseworker regarding her disposition plan and multiple readmissions. Upon discharge patient will follow up with hematology and PMD . Dr Lyndsey Noble
[2016-06-22] MEDS: HYDROmorphone 0.5 mg/0.5 ml ISec IVP PRN (17:30)
--- NOTE | 2016-06-23 01:18 | CP.PCM.PN ---
Subjective - Date & Time of Evaluation Date of Evaluation: 06/21/16 Time of Evaluation: 13:00 - Subjective Subjective: Has burning chest pain Objective - Vital Signs/Intake and Output Vital Signs (last 24 hours): Temp Pulse Resp BP Pulse Ox 98.1 F 72 18 133/91 H 95 06/22/16 06:00 06/22/16 06:00 06/22/16 06:00 06/22/16 06:00 06/22/16 06:00 Intake and Output: 06/22/16 06/23/16 18:59 06:59 Intake Total 120 Output Total 200 Balance -80 - Medications Medications: Current Medications Albuterol/Ipratropium (Duoneb 3 Mg/0.5 Mg (3 Ml) Ud) 3 ml IH Q2H PRN PRN Reason: Shortness of Breath Diphenhydramine HCl (Benadryl) 25 mg IVP Q8 PRN PRN Reason: Allergy symptoms Last Admin: 06/22/16 17:30 Dose: 25 mg Divalproex Sodium (Depakote Dr (*Bid*)) 250 mg PO BID [facility] PRN Reason: Protocol Last Admin: 06/22/16 17:30 Dose: 250 mg Docusate Sodium (Colace) 100 mg PO BID [facility] Last Admin: 06/22/16 17:30 Dose: 100 mg Enoxaparin Sodium (Lovenox) 30 mg SC DAILY [facility] PRN Reason: Protocol Last Admin: 06/22/16 11:16 Dose: 30 mg Famotidine (Pepcid) 20 mg PO 1000,2200 [facility] Last Admin: 06/22/16 22:08 Dose: 20 mg Folic Acid (Folic Acid) 1 mg PO DAILY [facility] Last Admin: 06/22/16 11:15 Dose: 1 mg Guaifenesin (Robitussin) 200 mg PO Q4H PRN PRN Reason: Cough and congestion Last Admin: 06/13/16 21:02 Dose: 200 mg Hydromorphone HCl (Dilaudid) 0.5 mg IVP Q4H PRN PRN Reason: Pain, moderate (4-7) Last Admin: 06/22/16 17:30 Dose: 0.5 mg Hydromorphone HCl (Dilaudid) 1 mg IVP Q4H PRN PRN Reason: Pain, severe (8-10) Last Admin: 06/22/16 22:07 Dose: 1 mg Hydroxyurea (Hydrea) 500 mg PO BID [facility] Last Admin: 06/18/16 10:04 Dose: 500 mg Sodium Chloride (Sodium Chloride 0.9%) 1,000 mls @ 100 mls/hr IV .Q10H [facility] Last Admin: 06/22/16 04:30 Dose: 100 mls/hr Ibuprofen (Motrin Tab) 400 mg PO Q6H PRN PRN Reason: Pain, moderate (4-7) Magnesium Hydroxide (Milk Of Magnesia) 30 ml PO DAILY PRN PRN Reason: Constipation Last Admin: 06/19/16 23:04 Dose: 30 ml Multivitamins/Minerals (Therapeutic-M Tab) 1 tab PO DAILY [facility] Last Admin: 06/22/16 11:15 Dose: 1 tab Ondansetron HCl (Zofran Inj) 4 mg IVP Q4H PRN PRN Reason: Nausea/Vomiting Last Admin: 06/11/16 18:57 Dose: 4 mg Trazodone HCl (Desyrel) 25 mg PO HS [facility] Last Admin: 06/22/16 22:05 Dose: 25 mg - Labs Labs: 06/22/16 06:30 06/22/16 06:30 PT 12.0 Seconds (9.9-11.8) H 06/13/16 10:45 INR 1.11 (0.93-1.08) H 06/13/16 10:45 APTT 38.4 Seconds (23.7-30.8) H 06/10/16 19:05 - Head Exam Head Exam: ATRAUMATIC - Eye Exam Eye Exam: Normal appearance - ENT Exam ENT Exam: Mucous Membranes Dry - Respiratory Exam Respiratory Exam: NORMAL BREATHING PATTERN - Cardiovascular Exam Cardiovascular Exam: +S1, +S2 - GI/Abdominal Exam GI & Abdominal Exam: Normal Bowel Sounds Assessment and Plan (1) Acute chest syndrome Assessment & Plan: IV fluids, pain meds, folic acid, [address] kemp for NSAID use for pleuritic chest pain Status: Acute (2) Iron overload due to repeated red blood cell transfusions Assessment & Plan: outpatient chelation Status: Chronic (3) Thrombocytopenia Assessment & Plan: secondary to hyrea Status: Chronic (4) Sickle cell anemia Assessment & Plan: folic acid and hydrea Status: Chronic
[2016-06-23] MEDS: DiphenhydrAMINE 50 mg/ml Inj IVP PRN ×2 (02:18→16:43)
[2016-06-23] MEDS: HYDROmorphone 1 mg/ml ISec IVP PRN ×2 (02:20→06:08)
[2016-06-23] MEDS: Sodium Chloride 0.9% 1,000 ML IV SCH ×2 (05:43→16:43)
[2016-06-23 06:22] LABS: ALB/GLOB RATIO 0.7 (1.1-1.8); ALKALINE PHOSPHATASE 105 U/L (38-133); ALT/SGPT 76 U/L (7-56); AST/SGOT 124 U/L (15-39); BILIRUBIN,TOTAL 3.1 mg/dL (0.2-1.3); BLOOD UREA NITROGEN 6 mg/dL (7-21); CALCIUM 8.5 mg/dL (8.4-10.5); CARBON DIOXIDE 30 mmol/L (21-33); CHLORIDE 102 mmol/L (98-107); GFR AFRICAN-AMERICAN > 60; GLUCOSE,RANDOM 89 mg/dL (70-110); POTASSIUM 4.1 mmol/L (3.6-5.0); SODIUM 138 mmol/L (132-148); TOTAL PROTEIN 7.5 g/dL (5.8-8.3)
[2016-06-23 06:40] LABS: MEAN CELL VOLUME 96.2 fL (80.0-105.0); MEAN CORPUSCULAR HGB CONC 35.3 g/dl (31.0-37.0); MEAN PLATELET VOLUME 10.5 fl (7.0-11.0); PLATELET COUNT 66 10^3/uL (120.0-450.0); RED CELL DISTRIBUTION WIDTH 25.4 % (11.5-14.5); WHITE BLOOD COUNT 7.1 10^3/ul (4.5-11.0)
[2016-06-23 06:50] LABS: RETIC% 8.93 % (0.5-1.5)
[2016-06-23] MEDS: Multivitamin With Minerals Tab PO SCH (10:21)
[2016-06-23] MEDS: Divalproex 250 mg DR (BID formulation) PO SCH ×2 (10:21→17:33)
[2016-06-23] MEDS: Enoxaparin 30 mg Syringe SC SCH (10:21)
[2016-06-23] MEDS: HYDROmorphone 0.5 mg/0.5 ml ISec IVP PRN ×3 (10:24→20:13)
--- NOTE | 2016-06-23 11:25 | CP.PCM.PN ---
Subjective - Date & Time of Evaluation Date of Evaluation: 06/23/16 Time of Evaluation: 09:00 - Subjective Subjective: patient seen and examined with resident. Patient is resting comfortably. Denies any fevers, chills. Tolerating diet. Generalized bodyache is improving. Review of Systems - Constitutional Constitutional: absent: Fever, Chills - EENT Nose/Mouth/Throat: absent: Nasal Congestion - Cardiovascular Cardiovascular: absent: Chest Pain - Respiratory Respiratory: absent: Cough, Dyspnea, Dyspnea on Exertion - Musculoskeletal Musculoskeletal: Myalgias - Psychiatric Psychiatric: Depression - Hematologic/Lymphatic Hematologic: absent: Easy Bleeding, Easy Bruising Objective - Vital Signs/Intake and Output Vital Signs (last 24 hours): Temp Pulse Resp BP Pulse Ox 97.0 F L 70 17 133/84 95 06/23/16 06:00 06/23/16 06:00 06/23/16 06:00 06/23/16 06:00 06/23/16 06:00 Intake and Output: 06/23/16 06/23/16 06:59 18:59 Intake Total 1220 Output Total 800 Balance 420 - Medications Medications: Current Medications Albuterol/Ipratropium (Duoneb 3 Mg/0.5 Mg (3 Ml) Ud) 3 ml IH Q2H PRN PRN Reason: Shortness of Breath Diphenhydramine HCl (Benadryl) 25 mg IVP Q8 PRN PRN Reason: Allergy symptoms Last Admin: 06/23/16 02:18 Dose: 25 mg Divalproex Sodium (Depakote Dr (*Bid*)) 250 mg PO BID [facility] PRN Reason: Protocol Last Admin: 06/23/16 10:21 Dose: 250 mg Docusate Sodium (Colace) 100 mg PO BID [facility] Last Admin: 06/23/16 10:21 Dose: 100 mg Enoxaparin Sodium (Lovenox) 30 mg SC DAILY [facility] PRN Reason: Protocol Last Admin: 06/23/16 10:21 Dose: 30 mg Famotidine (Pepcid) 20 mg PO 1000,2200 [facility] Last Admin: 06/23/16 10:21 Dose: 20 mg Folic Acid (Folic Acid) 1 mg PO DAILY [facility] Last Admin: 06/23/16 10:21 Dose: 1 mg Guaifenesin (Robitussin) 200 mg PO Q4H PRN PRN Reason: Cough and congestion Last Admin: 06/13/16 21:02 Dose: 200 mg Hydromorphone HCl (Dilaudid) 0.5 mg IVP Q4H PRN PRN Reason: Pain, moderate (4-7) Last Admin: 06/23/16 10:24 Dose: 0.5 mg Hydroxyurea (Hydrea) 500 mg PO BID [facility] Last Admin: 06/18/16 10:04 Dose: 500 mg Sodium Chloride (Sodium Chloride 0.9%) 1,000 mls @ 100 mls/hr IV .Q10H [facility] Last Admin: 06/23/16 05:43 Dose: 100 mls/hr Ibuprofen (Motrin Tab) 400 mg PO Q6H PRN PRN Reason: Pain, moderate (4-7) Magnesium Hydroxide (Milk Of Magnesia) 30 ml PO DAILY PRN PRN Reason: Constipation Last Admin: 06/19/16 23:04 Dose: 30 ml Multivitamins/Minerals (Therapeutic-M Tab) 1 tab PO DAILY [facility] Last Admin: 06/23/16 10:21 Dose: 1 tab Ondansetron HCl (Zofran Inj) 4 mg IVP Q4H PRN PRN Reason: Nausea/Vomiting Last Admin: 06/11/16 18:57 Dose: 4 mg Trazodone HCl (Desyrel) 25 mg PO HS [facility] Last Admin: 06/22/16 22:05 Dose: 25 mg - Labs Labs: 06/23/16 06:00 06/23/16 06:00 PT 12.0 Seconds (9.9-11.8) H 06/13/16 10:45 INR 1.11 (0.93-1.08) H 06/13/16 10:45 APTT 38.4 Seconds (23.7-30.8) H 06/10/16 19:05 - Constitutional Appears: Well, Non-toxic - Head Exam Head Exam: NORMAL INSPECTION - Eye Exam Eye Exam: Normal appearance - ENT Exam ENT Exam: Mucous Membranes Moist - Respiratory Exam Respiratory Exam: Clear to Ausculation Bilateral - Cardiovascular Exam Cardiovascular Exam: REGULAR RHYTHM - GI/Abdominal Exam GI & Abdominal Exam: Soft, Normal Bowel Sounds. absent: Tenderness - Extremities Exam Extremities Exam: Tenderness - Back Exam Back Exam: absent: CVA tenderness (L), CVA tenderness (R) - Neurological Exam Neurological Exam: Alert - Psychiatric Exam Psychiatric exam: Flat Affect - Skin Skin Exam: Normal Color Assessment and Plan - Assessment and Plan (Free Text) Assessment: This is a 35 year old AAF with PMH cerebral palsy, HTN, bipolar disorder and sickle cell disease admitted for acute chest syndrome secondary to sickle cell crisis. 1. Acute Chest Syndrome 2/2 sickle cell crisis s/p 3 units PRBC transfusion. hemoglobin is 10.6. Retic count is 9.3. improving slowly. Possible discharge home tomorrow. continue oxygen, IV fluids,folic acid. Hydrea on hold for low platelet count Pain control with Dilaudid and motrin Duoneb prn SOB, Robitussin prn cough Maintain spO2>90%, NC prn 2. Cerebral Palsy 3.Bipolar disorder continue Trazodone , Depakote. 4. Hx of constipation Continue colace . 5. GI ppx: Pepcid DVT ppx: Lovenox upon discharge the patient will follow up with PMd DR. Gill and hematology DR. Palacios.
--- NOTE | 2016-06-23 21:29 | CP.PCM.PN ---
Subjective - Date & Time of Evaluation Date of Evaluation: 06/23/16 Time of Evaluation: 13:20 - Subjective Subjective: Has achy/burning chest pain but improving Objective - Vital Signs/Intake and Output Vital Signs (last 24 hours): Temp Pulse Resp BP Pulse Ox 97.0 F L 70 17 133/84 95 06/23/16 06:00 06/23/16 06:00 06/23/16 06:00 06/23/16 06:00 06/23/16 06:00 Intake and Output: 06/23/16 06/24/16 18:59 06:59 Intake Total 420 Output Total 600 Balance -180 - Medications Medications: Current Medications Albuterol/Ipratropium (Duoneb 3 Mg/0.5 Mg (3 Ml) Ud) 3 ml IH Q2H PRN PRN Reason: Shortness of Breath Diphenhydramine HCl (Benadryl) 25 mg IVP Q8 PRN PRN Reason: Allergy symptoms Last Admin: 06/23/16 16:43 Dose: 25 mg Divalproex Sodium (Depakote Dr (*Bid*)) 250 mg PO BID [facility] PRN Reason: Protocol Last Admin: 06/23/16 17:33 Dose: 250 mg Docusate Sodium (Colace) 100 mg PO BID [facility] Last Admin: 06/23/16 17:33 Dose: 100 mg Enoxaparin Sodium (Lovenox) 30 mg SC DAILY [facility] PRN Reason: Protocol Last Admin: 06/23/16 10:21 Dose: 30 mg Famotidine (Pepcid) 20 mg PO 1000,2200 [facility] Last Admin: 06/23/16 10:21 Dose: 20 mg Folic Acid (Folic Acid) 1 mg PO DAILY [facility] Last Admin: 06/23/16 10:21 Dose: 1 mg Guaifenesin (Robitussin) 200 mg PO Q4H PRN PRN Reason: Cough and congestion Last Admin: 06/13/16 21:02 Dose: 200 mg Hydromorphone HCl (Dilaudid) 0.5 mg IVP Q4H PRN PRN Reason: Pain, moderate (4-7) Last Admin: 06/23/16 20:13 Dose: 0.5 mg Hydroxyurea (Hydrea) 500 mg PO BID [facility] Last Admin: 06/18/16 10:04 Dose: 500 mg Sodium Chloride (Sodium Chloride 0.9%) 1,000 mls @ 100 mls/hr IV .Q10H [facility] Last Admin: 06/23/16 16:43 Dose: 100 mls/hr Ibuprofen (Motrin Tab) 400 mg PO Q6H PRN PRN Reason: Pain, moderate (4-7) Magnesium Hydroxide (Milk Of Magnesia) 30 ml PO DAILY PRN PRN Reason: Constipation Last Admin: 06/19/16 23:04 Dose: 30 ml Multivitamins/Minerals (Therapeutic-M Tab) 1 tab PO DAILY [facility] Last Admin: 06/23/16 10:21 Dose: 1 tab Ondansetron HCl (Zofran Inj) 4 mg IVP Q4H PRN PRN Reason: Nausea/Vomiting Last Admin: 06/11/16 18:57 Dose: 4 mg Trazodone HCl (Desyrel) 25 mg PO HS [facility] Last Admin: 06/22/16 22:05 Dose: 25 mg - Labs Labs: 06/23/16 06:00 06/23/16 06:00 PT 12.0 Seconds (9.9-11.8) H 06/13/16 10:45 INR 1.11 (0.93-1.08) H 06/13/16 10:45 APTT 38.4 Seconds (23.7-30.8) H 06/10/16 19:05 - Head Exam Head Exam: ATRAUMATIC - Eye Exam Eye Exam: Normal appearance - ENT Exam ENT Exam: Mucous Membranes Dry - Respiratory Exam Respiratory Exam: NORMAL BREATHING PATTERN - Cardiovascular Exam Cardiovascular Exam: +S1, +S2 - GI/Abdominal Exam GI & Abdominal Exam: Normal Bowel Sounds Assessment and Plan (1) Acute chest syndrome Assessment & Plan: IV fluids, pain meds, folic acid, 02 via NC s/p PRBC transfusion Status: Acute (2) Iron overload due to repeated red blood cell transfusions Assessment & Plan: outpatient chelation Status: Chronic (3) Thrombocytopenia Assessment & Plan: hydrea on hold consider D/C lovenox in AM if plt lower Status: Chronic (4) Sickle cell anemia Assessment & Plan: outpatient hydrea and folic acid Status: Chronic
[2016-06-24] MEDS: Sodium Chloride 0.9% 1,000 ML IV SCH ×2 (02:40→21:32)
[2016-06-24] MEDS: HYDROmorphone 0.5 mg/0.5 ml ISec IVP PRN ×5 (02:40→21:41)
[2016-06-24] MEDS: DiphenhydrAMINE 50 mg/ml Inj IVP PRN ×2 (05:29→15:51)
[2016-06-24 07:12] LABS: HEMATOCRIT 30.4 % (36.0-48.0); MEAN CELL VOLUME 95.9 fL (80.0-105.0); MEAN CORPUSCULAR HEMOGLOBIN 33.1 pg (25.0-35.0); MEAN CORPUSCULAR HGB CONC 34.5 g/dl (31.0-37.0); PLATELET COUNT 53 10^3/uL (120.0-450.0); RED CELL DISTRIBUTION WIDTH 23.7 % (11.5-14.5); RETIC% 7.92 % (0.5-1.5); WHITE BLOOD COUNT 8.1 10^3/ul (4.5-11.0)
[2016-06-24 07:18] LABS: ALB/GLOB RATIO 0.7 (1.1-1.8); ALKALINE PHOSPHATASE 106 U/L (38-133); ALT/SGPT 84 U/L (7-56); AST/SGOT 135 U/L (15-39); BILIRUBIN,TOTAL 2.8 mg/dL (0.2-1.3); BLOOD UREA NITROGEN 11 mg/dL (7-21); CALCIUM 8.2 mg/dL (8.4-10.5); CARBON DIOXIDE 28 mmol/L (21-33); CHLORIDE 103 mmol/L (95-110); GFR AFRICAN-AMERICAN > 60; GLUCOSE,RANDOM 88 mg/dL (70-110); POTASSIUM 4.4 mmol/L (3.6-5.0); SODIUM 138 mmol/L (132-148); TOTAL PROTEIN 7.6 g/dL (5.8-8.3)
[2016-06-24] MEDS: Multivitamin With Minerals Tab PO SCH (09:36)
[2016-06-24] MEDS: Divalproex 250 mg DR (BID formulation) PO SCH ×2 (09:36→17:35)
--- NOTE | 2016-06-24 10:01 | CP.PCM.PN ---
<SteffanieShahla augustine - Last Filed: 06/24/16 10:41> Subjective - Date & Time of Evaluation Date of Evaluation: 06/24/16 Time of Evaluation: 09:52 - Subjective Subjective: Hospitalist Progress Note Patient seen and examined at bedside. There were no acute overnight events. She says her chest still hurts with deep inspiration, but has improved since admission. She denies n/v/d, numbness/tingling, SOB, dysuria or hematuria. Objective - Vital Signs/Intake and Output Vital Signs (last 24 hours): Temp Pulse Resp BP Pulse Ox 97.7 F 85 17 103/69 94 L 06/24/16 06:00 06/24/16 06:00 06/24/16 06:00 06/24/16 06:00 06/24/16 06:00 Intake and Output: 06/24/16 06/24/16 06:59 18:59 Intake Total 3240 Output Total 1200 Balance 2040 - Medications Medications: Current Medications Albuterol/Ipratropium (Duoneb 3 Mg/0.5 Mg (3 Ml) Ud) 3 ml IH Q2H PRN PRN Reason: Shortness of Breath Diphenhydramine HCl (Benadryl) 25 mg IVP Q8 PRN PRN Reason: Allergy symptoms Last Admin: 06/24/16 05:29 Dose: 25 mg Divalproex Sodium (Depakote Dr (*Bid*)) 250 mg PO BID [facility] PRN Reason: Protocol Last Admin: 06/24/16 09:36 Dose: 250 mg Docusate Sodium (Colace) 100 mg PO BID [facility] Last Admin: 06/24/16 09:36 Dose: 100 mg Famotidine (Pepcid) 20 mg PO 1000,2200 [facility] Last Admin: 06/24/16 09:36 Dose: 20 mg Folic Acid (Folic Acid) 1 mg PO DAILY [facility] Last Admin: 06/24/16 09:36 Dose: 1 mg Guaifenesin (Robitussin) 200 mg PO Q4H PRN PRN Reason: Cough and congestion Last Admin: 06/13/16 21:02 Dose: 200 mg Hydromorphone HCl (Dilaudid) 0.5 mg IVP Q4H PRN PRN Reason: Pain, moderate (4-7) Last Admin: 06/24/16 09:37 Dose: 0.5 mg Hydroxyurea (Hydrea) 500 mg PO BID [facility] Last Admin: 06/18/16 10:04 Dose: 500 mg Sodium Chloride (Sodium Chloride 0.9%) 1,000 mls @ 100 mls/hr IV .Q10H [facility] Last Admin: 06/24/16 02:40 Dose: 100 mls/hr Ibuprofen (Motrin Tab) 400 mg PO Q6H PRN PRN Reason: Pain, moderate (4-7) Magnesium Hydroxide (Milk Of Magnesia) 30 ml PO DAILY PRN PRN Reason: Constipation Last Admin: 06/19/16 23:04 Dose: 30 ml Multivitamins/Minerals (Therapeutic-M Tab) 1 tab PO DAILY [facility] Last Admin: 06/24/16 09:36 Dose: 1 tab Ondansetron HCl (Zofran Inj) 4 mg IVP Q4H PRN PRN Reason: Nausea/Vomiting Last Admin: 06/11/16 18:57 Dose: 4 mg Trazodone HCl (Desyrel) 25 mg PO HS [facility] Last Admin: 06/23/16 21:33 Dose: 25 mg - Labs Labs: 06/24/16 06:00 06/24/16 06:00 PT 12.0 Seconds (9.9-11.8) H 06/13/16 10:45 INR 1.11 (0.93-1.08) H 06/13/16 10:45 APTT 38.4 Seconds (23.7-30.8) H 06/10/16 19:05 - Constitutional Appears: No Acute Distress - Head Exam Head Exam: NORMAL INSPECTION - Eye Exam Pupil Exam: NORMAL ACCOMODATION - ENT Exam ENT Exam: Mucous Membranes Moist - Neck Exam Neck Exam: Full ROM, Normal Inspection - Respiratory Exam Respiratory Exam: Clear to Ausculation Bilateral, NORMAL BREATHING PATTERN. absent: Rales, Rhonchi, Wheezes, Respiratory Distress, Stridor - Cardiovascular Exam Cardiovascular Exam: REGULAR RHYTHM, +S1, +S2. absent: Gallop, Rubs, Murmur - GI/Abdominal Exam GI & Abdominal Exam: Soft, Normal Bowel Sounds. absent: Rigid, Tenderness, Mass , Rebound - Extremities Exam Extremities Exam: Normal Inspection. absent: Calf Tenderness, Pedal Edema - Neurological Exam Neurological Exam: Awake, CN II-XII Intact, Oriented x3 - Psychiatric Exam Psychiatric exam: Normal Affect, Normal Mood - Skin Skin Exam: Dry, Normal Color, Warm Assessment and Plan - Assessment and Plan (Free Text) Assessment: This is a 35Y Female with PMH cerebral palsy, HTN, bipolar disorder and sickle cell disease admitted for acute chest syndrome secondary to sickle cell crisis. Plan: 1. Acute chest syndrome- improved - s/p PRBC x 3 - Hgb stable at 10.5, Retic now 7.9 - Continue to monitor CBC - Dilaudid and Motrin prn pain, Zofran prn nausea, Robitussin prn cough - Duoneb prn SOB - NS@100 - Outpatient chelation therapy - Continue O2 supplementation and folic acid 2. Thrombocytopenia - r/o HIT - Platelets dropped to 53 over past few days - Lovenox stopped - Continue to hold Hydrea - Will check manual diff, HIT-AB and serotonin assay - Spoke with Dr. Palacios- if platelets increase in AM- pt can be d/c and will follow up lab results as outpatient 3. CHF (Chronic) - NS@100 - Strict I&O, daily weight - Continue to monitor for fluid overload 4. Cerebral palsy - Continue Depakote, Multivitamin 5. Bipolar Disorder - Continue Depakote and Trazodone 6. Constipation - Continue colace and milk of mag GI ppx: Pepcid DVT ppx: SCDs Dispo: If platelets increase tomorrow- will D/C in AM. Pt can follow up with Dr. Gill (PMD) and Dr. Palacios (Heme) as outpatient Case seen, discussed and reviewed with attending Geraldine Gannon PGY1 <Jemma Pritchett - Last Filed: 06/24/16 14:10> Objective - Vital Signs/Intake and Output Vital Signs (last 24 hours): Temp Pulse Resp BP Pulse Ox 97.7 F 85 17 103/69 94 L 06/24/16 06:00 06/24/16 06:00 06/24/16 06:00 06/24/16 06:00 06/24/16 06:00 Intake and Output: 06/24/16 06/24/16 06:59 18:59 Intake Total 3240 Output Total 1200 Balance 2040 - Medications Medications: Current Medications Albuterol/Ipratropium (Duoneb 3 Mg/0.5 Mg (3 Ml) Ud) 3 ml IH Q2H PRN PRN Reason: Shortness of Breath Diphenhydramine HCl (Benadryl) 25 mg IVP Q8 PRN PRN Reason: Allergy symptoms Last Admin: 06/24/16 05:29 Dose: 25 mg Divalproex Sodium (Depakote Dr (*Bid*)) 250 mg PO BID [facility] PRN Reason: Protocol Last Admin: 06/24/16 09:36 Dose: 250 mg Docusate Sodium (Colace) 100 mg PO BID [facility] Last Admin: 06/24/16 09:36 Dose: 100 mg Famotidine (Pepcid) 20 mg PO 1000,2200 [facility] Last Admin: 06/24/16 09:36 Dose: 20 mg Folic Acid (Folic Acid) 1 mg PO DAILY [facility] Last Admin: 06/24/16 09:36 Dose: 1 mg Guaifenesin (Robitussin) 200 mg PO Q4H PRN PRN Reason: Cough and congestion Last Admin: 06/13/16 21:02 Dose: 200 mg Hydromorphone HCl (Dilaudid) 0.5 mg IVP Q4H PRN PRN Reason: Pain, moderate (4-7) Last Admin: 06/24/16 13:42 Dose: 0.5 mg Hydroxyurea (Hydrea) 500 mg PO BID [facility] Last Admin: 06/18/16 10:04 Dose: 500 mg Sodium Chloride (Sodium Chloride 0.9%) 1,000 mls @ 100 mls/hr IV .Q10H [facility] Last Admin: 06/24/16 02:40 Dose: 100 mls/hr Ibuprofen (Motrin Tab) 400 mg PO Q6H PRN PRN Reason: Pain, moderate (4-7) Magnesium Hydroxide (Milk Of Magnesia) 30 ml PO DAILY PRN PRN Reason: Constipation Last Admin: 06/19/16 23:04 Dose: 30 ml Multivitamins/Minerals (Therapeutic-M Tab) 1 tab PO DAILY [facility] Last Admin: 06/24/16 09:36 Dose: 1 tab Ondansetron HCl (Zofran Inj) 4 mg IVP Q4H PRN PRN Reason: Nausea/Vomiting Last Admin: 06/11/16 18:57 Dose: 4 mg Trazodone HCl (Desyrel) 25 mg PO HS [facility] Last Admin: 06/23/16 21:33 Dose: 25 mg - Labs Labs: 06/24/16 06:00 06/24/16 06:00 PT 12.0 Seconds (9.9-11.8) H 06/13/16 10:45 INR 1.11 (0.93-1.08) H 06/13/16 10:45 APTT 38.4 Seconds (23.7-30.8) H 06/10/16 19:05 Attending/Attestation - Attestation I have personally seen and examined this patient.: Yes I have fully participated in the care of the patient.: Yes I have reviewed all pertinent clinical information, including history, physical exam and plan: Yes Notes (Text): 06/24/16 14:08 Attending note; Patient seen and examined with resident. Currently complaining of nonspecific chest and back discomfort. Sitting in chair. Sickle cell crisis is improving. Retic count is 7.9. thrombocytopenia; Hydrea on hold. DC heparin or Lovenox. IF platelet count improves possible discharge home tomorrow with close outpatient follow-up. Case discussed with hematology Dr. palacios in detail. 06/24/16 14:10
[2016-06-24 20:43] VITALS: RESP 19
[2016-06-25] MEDS: HYDROmorphone 0.5 mg/0.5 ml ISec IVP PRN ×2 (04:02→09:20)
[2016-06-25 07:03] LABS: HEMATOCRIT 29.8 % (36.0-48.0); MEAN CELL VOLUME 95.5 fL (80.0-105.0); MEAN CORPUSCULAR HEMOGLOBIN 32.7 pg (25.0-35.0); MEAN CORPUSCULAR HGB CONC 34.2 g/dl (31.0-37.0); PLATELET COUNT 56 10^3/uL (120.0-450.0); RED CELL DISTRIBUTION WIDTH 23.1 % (11.5-14.5); WHITE BLOOD COUNT 6.5 10^3/ul (4.5-11.0)
[2016-06-25 07:13] LABS: ALB/GLOB RATIO 0.8 (1.1-1.8); ALKALINE PHOSPHATASE 95 U/L (38-133); ALT/SGPT 80 U/L (7-56); AST/SGOT 128 U/L (15-39); BILIRUBIN,TOTAL 3.2 mg/dL (0.2-1.3); BLOOD UREA NITROGEN 8 mg/dL (7-21); CALCIUM 8.7 mg/dL (8.4-10.5); CARBON DIOXIDE 26 mmol/L (21-33); CHLORIDE 103 mmol/L (98-107); GFR AFRICAN-AMERICAN > 60; GLUCOSE,RANDOM 92 mg/dL (70-110); POTASSIUM 4.4 mmol/L (3.6-5.0); SODIUM 137 mmol/L (132-148); TOTAL PROTEIN 8.1 g/dL (5.8-8.3)
[2016-06-25 09:01] VITALS: BP 127/99; PULSE 70; TEMP 98.3; O2SAT 100
[2016-06-25] MEDS: Multivitamin With Minerals Tab PO SCH (09:20)
[2016-06-25] MEDS: Divalproex 250 mg DR (BID formulation) PO SCH ×2 (09:20→17:12)
--- NOTE | 2016-06-25 09:45 | CP.PCM.DIS ---
<Shahla Gannon - Last Filed: 06/25/16 13:31> Provider - Provider Date of Admission: 06/10/16 21:12 Attending physician: Jemma Pritchett MD Primary care physician: Charissa Gill MD Consults: Cardio: Dr. Deshpande Heme: Dr. Palacios Time Spent in preparation of Discharge (in minutes): 45 Hospital Course - Lab Results Lab Results: Most Recent Lab Values WBC 6.5 10^3/ul (4.5-11.0) 06/25/16 06:30 RBC 3.12 10^6/uL (3.5-6.1) L 06/25/16 06:30 Hgb 10.2 gm/dL (12.0-16.0) L 06/25/16 06:30 Hct 29.8 % (36.0-48.0) L 06/25/16 06:30 MCV 95.5 fL (80.0-105.0) 06/25/16 06:30 MCH 32.7 pg (25.0-35.0) 06/25/16 06:30 MCHC 34.2 g/dl (31.0-37.0) 06/25/16 06:30 RDW 23.1 % (11.5-14.5) H 06/25/16 06:30 Plt Count 56 10^3/uL (120.0-450.0) L 06/25/16 06:30 Manual Plt Count 60 K/mm3 (120-450) L* 06/25/16 06:30 MPV 10.5 fl (7.0-11.0) 06/23/16 06:00 Gran % 45.5 % (50.0-68.0) L 06/17/16 05:45 Lymph % (Auto) 39.9 % (22.0-35.0) H 06/17/16 05:45 Davison % (Auto) 10.7 % (1.0-6.0) H 06/17/16 05:45 Eos % (Auto) 3.5 % (1.5-5.0) 06/17/16 05:45 Baso % (Auto) 0.4 % (0.0-3.0) 06/17/16 05:45 Gran # 4.19 (1.4-6.5) 06/17/16 05:45 Lymph # 3.7 (1.2-3.4) H 06/17/16 05:45 Davison # 1.0 (0.1-0.6) H 06/17/16 05:45 Eos # 0.3 (0.0-0.7) 06/17/16 05:45 Baso # 0.04 K/mm3 (0.0-2.0) 06/17/16 05:45 Neutrophils % (Manual) 40 % (50.0-70.0) L 06/17/16 20:10 Lymphocytes % (Manual) 50 % (22.0-35.0) H 06/17/16 20:10 Monocytes % (Manual) 8 % (1.0-6.0) H 06/17/16 20:10 Eosinophils % (Manual) 2 % (0.0-3.0) 06/17/16 20:10 Anisocytosis (manual) 1+ 06/17/16 20:10 Retic Count 5.10 % (0.5-1.5) H 06/25/16 06:30 PT 12.0 Seconds (9.9-11.8) H 06/13/16 10:45 INR 1.11 (0.93-1.08) H 06/13/16 10:45 APTT 38.4 Seconds (23.7-30.8) H 06/10/16 19:05 D-Dimer, Quantitative 1.98 mg/L FEU (0-0.50) H 06/11/16 08:30 pCO2 50 mm/Hg (35-45) H 06/11/16 05:30 pO2 73.0 mm/Hg (80-100) L 06/11/16 05:30 HCO3 28.2 mmol/L (21-28) H 06/11/16 05:30 ABG pH 7.36 (7.35-7.45) 06/11/16 05:30 ABG Total CO2 29.7 mmol.L (22-28) H 06/11/16 05:30 ABG O2 Saturation 95.7 % (95-98) 06/11/16 05:30 ABG O2 Content 9.9 ML/dl (15-23) L 06/11/16 05:30 ABG Base Excess 2.4 mmol/L (-2.0-3.0) 06/11/16 05:30 ABG Hemoglobin 7.7 g/dL (11.7-17.4) L 06/11/16 05:30 ABG Carboxyhemoglobin 5.5 % (0.5-1.5) H 06/11/16 05:30 POC ABG HHb (Measured) 4.0 % (0-5) 06/11/16 05:30 ABG Methemoglobin 0.6 % (0.0-3.0) 06/11/16 05:30 ABG O2 Capacity 10.3 mL/dl (16-24) L 06/11/16 05:30 Hgb O2 Saturation 89.9 % (95.0-98.0) L 06/11/16 05:30 FiO2 21.0 % 06/11/16 05:30 Sodium 137 mmol/L (132-148) 06/25/16 06:30 Potassium 4.4 mmol/L (3.6-5.0) 06/25/16 06:30 Chloride 103 mmol/L (98-107) 06/25/16 06:30 Carbon Dioxide 26 mmol/L (21-33) 06/25/16 06:30 Anion Gap 12 (10-20) 06/25/16 06:30 BUN 8 mg/dL (7-21) 06/25/16 06:30 Creatinine 0.4 mg/dL (0.5-1.4) L 06/25/16 06:30 Est GFR ( Amer) > 60 06/25/16 06:30 Est GFR (Non-Af Amer) > 60 06/25/16 06:30 Random Glucose 92 mg/dL (70-110) 06/25/16 06:30 Calcium 8.7 mg/dL (8.4-10.5) 06/25/16 06:30 Total Bilirubin 3.2 mg/dL (0.2-1.3) H 06/25/16 06:30 AST 128 U/L (15-39) H 06/25/16 06:30 ALT 80 U/L (7-56) H 06/25/16 06:30 Alkaline Phosphatase 95 U/L (38-133) 06/25/16 06:30 Troponin I 0.02 ng/mL 06/11/16 03:00 Total Protein 8.1 g/dL (5.8-8.3) 06/25/16 06:30 Albumin 3.5 g/dL (3.0-4.8) 06/25/16 06:30 Globulin 4.6 gm/dL 06/25/16 06:30 Albumin/Globulin Ratio 0.8 (1.1-1.8) L 06/25/16 06:30 Procalcitonin 0.41 NG/ML (0.19-0.49) 06/11/16 08:30 Beta HCG, Quant < 2.39 mIU/mL (0-6.15) 06/10/16 19:05 Urine Color Yellow (YELLOW) 06/11/16 03:30 Urine Appearance Clear (CLEAR) 06/11/16 03:30 Urine pH 7.0 (4.7-8.0) 06/11/16 03:30 Ur Specific [place] 1.010 (1.005-1.035) 06/11/16 03:30 Urine Protein Negative mg/dL (<30 mg/dL) 06/11/16 03:30 Urine Glucose (UA) Negative mg/dL (NEGATIVE) 06/11/16 03:30 Urine Ketones Negative mg/dL (NEGATIVE) 06/11/16 03:30 Urine Blood Trace-lysed (NEGATIVE) H 06/11/16 03:30 Urine Nitrate Negative (NEGATIVE) 06/11/16 03:30 Urine Bilirubin Negative (NEGATIVE) 06/11/16 03:30 Urine Urobilinogen 1.0 E.U./dL (<1 E.U./dL) H 06/11/16 03:30 Ur Leukocyte Esterase Negative Luz/uL (NEGATIVE) 06/11/16 03:30 Urine RBC 0 - 2 /hpf (0-2) 06/11/16 03:30 Urine WBC 0 - 2 /hpf (0-6) 06/11/16 03:30 Ur Epithelial Cells 0 - 2 /hpf (0-5) 06/11/16 03:30 Urine Bacteria Occ (NEG) 06/11/16 03:30 Urine HCG, Qual Negative (NEGATIVE) 06/11/16 03:30 Hepatitis A IgM Ab Negative (NEGATIVE) 06/17/16 05:45 Hep Bs Antigen Negative (NEGATIVE) 06/17/16 05:45 Hep B Core IgM Ab Negative (NEGATIVE) 06/17/16 05:45 Hepatitis C Antibody Negative (NEGATIVE) 06/17/16 05:45 Blood Type B POSITIVE 06/19/16 12:21 Antibody Screen Negative 06/19/16 12:21 Crossmatch See Detail 06/19/16 12:21 BBK History Checked Patient has bt 06/19/16 12:21 - Hospital Course Hospital Course: This is a 35Y Female with PMH cerebral palsy, HTN, bipolar disorder, CHF (EF~40%) and sickle cell disease admitted for acute chest syndrome secondary to sickle cell crisis. Cardiology was consulted for the chest pain. As per cardiology, the patient is stable and should continue present management.The patient remained stable throughout her stay and received 3 PRBC. Her CBC and reticulocyte count was monitored daily. Her reticulocyte count has trended down and her hemoglobin remained stable. Of note, patient did develop thrombocytopenia. Her lovenox was stopped and she was monitored for Heparin-induced thrombocytopenia. Her platelets did become to increase after lovenox d/c. Hematology, Dr. Palacios, who sees her as outpatient was consulted. He reports that the patient will need outpatient chelation therapy for iron overload and will follow up with the HIT-ab lab results as outpatient. The patient was also instructed to not take her Hydrea for thrombocytopenia. The decision to continue the medication will be up to Dr. Palacios. She will continue her other home medications and states she does not need refills. She still complains of chest discomfort with deep inspiration. She was given a prescription for Motrin 400mg TID prn pain as well as Protonix 40mg qd both for 5 days. She can follow up with Dr. Palacios in 1 week as well as her PMD Dr. Gill. - Date & Time of H&P Date of H&P: 06/10/16 Time of H&P: 21:00 Discharge Exam - Head Exam Head Exam: NORMAL INSPECTION - Eye Exam Eye Exam: EOMI, Normal appearance, PERRL Pupil Exam: NORMAL ACCOMODATION, PERRL - ENT Exam ENT Exam: Mucous Membranes Moist - Neck Exam Neck exam: Full Rom - Respiratory Exam Respiratory Exam: Clear to PA & Lateral, NORMAL BREATHING PATTERN, UNREMARKABLE. absent: Rales, Rhonchi, Wheezes - Cardiovascular Exam Cardiovascular Exam: REGULAR RHYTHM, +S1, +S2. absent: Gallop, Rubs, Systolic Murmur - GI/Abdominal Exam GI & Abdominal Exam: Normal Bowel Sounds, Soft, Unremarkable. absent: Guarding , Mass, Rebound, Rigid, Tenderness - Extremities Exam Extremities exam: normal inspection - Neurological Exam Neurological exam: Alert, CN II-XII Intact, Oriented x3 - Psychiatric Exam Psychiatric exam: Normal Affect, Normal Mood - Skin Skin Exam: Dry, Intact, Normal Color, Warm Discharge Plan - Discharge Medications Prescriptions: Ibuprofen [Motrin] 400 mg PO TID #15 tab Pantoprazole Sodium [Protonix] 40 mg PO DAILY #5 ect - Follow Up Plan Condition: FAIR Disposition: HOME/ ROUTINE Instructions: Chest Pain (DC), Sickle Cell Crisis (DC) Additional Instructions: 1. Please do not take Hydrea until you follow up with Dr. Palacios in 1 week 2. Please follow up with Dr. Jhaveri in 1 week. 3. Continue home medications. Except Hydrea 4. Follow up with Dr. Palacios for outpatient chelation therapy. 5. Take Motrin 400mg Three times per day prn pain. Please take Protonix once daily with Motrin to reduce risk of GI upset. Referrals: Charissa Gill MD [Primary Care Provider] - Tristian Palacios MD [Staff Provider] - Clinical Quality Measures - Date & Time of Discharge Summary Date of Discharge Summary: 06/25/16 Time of Discharge Summary: 13:33 <Jemma Pritchett - Last Filed: 06/25/16 14:52> Provider - Provider Date of Admission: 06/10/16 21:12 Attending physician: Jemma Pritchett MD Primary care physician: Charissa Gill MD Hospital Course - Lab Results Lab Results: Most Recent Lab Values WBC 6.5 10^3/ul (4.5-11.0) 06/25/16 06:30 RBC 3.12 10^6/uL (3.5-6.1) L 06/25/16 06:30 Hgb 10.2 gm/dL (12.0-16.0) L 06/25/16 06:30 Hct 29.8 % (36.0-48.0) L 06/25/16 06:30 MCV 95.5 fL (80.0-105.0) 06/25/16 06:30 MCH 32.7 pg (25.0-35.0) 06/25/16 06:30 MCHC 34.2 g/dl (31.0-37.0) 06/25/16 06:30 RDW 23.1 % (11.5-14.5) H 06/25/16 06:30 Plt Count 56 10^3/uL (120.0-450.0) L 06/25/16 06:30 Manual Plt Count 60 K/mm3 (120-450) L* 06/25/16 06:30 MPV 10.5 fl (7.0-11.0) 06/23/16 06:00 Gran % 45.5 % (50.0-68.0) L 06/17/16 05:45 Lymph % (Auto) 39.9 % (22.0-35.0) H 06/17/16 05:45 Davison % (Auto) 10.7 % (1.0-6.0) H 06/17/16 05:45 Eos % (Auto) 3.5 % (1.5-5.0) 06/17/16 05:45 Baso % (Auto) 0.4 % (0.0-3.0) 06/17/16 05:45 Gran # 4.19 (1.4-6.5) 06/17/16 05:45 Lymph # 3.7 (1.2-3.4) H 06/17/16 05:45 Davison # 1.0 (0.1-0.6) H 06/17/16 05:45 Eos # 0.3 (0.0-0.7) 06/17/16 05:45 Baso # 0.04 K/mm3 (0.0-2.0) 06/17/16 05:45 Neutrophils % (Manual) 40 % (50.0-70.0) L 06/17/16 20:10 Lymphocytes % (Manual) 50 % (22.0-35.0) H 06/17/16 20:10 Monocytes % (Manual) 8 % (1.0-6.0) H 06/17/16 20:10 Eosinophils % (Manual) 2 % (0.0-3.0) 06/17/16 20:10 Anisocytosis (manual) 1+ 06/17/16 20:10 Retic Count 5.10 % (0.5-1.5) H 06/25/16 06:30 PT 12.0 Seconds (9.9-11.8) H 06/13/16 10:45 INR 1.11 (0.93-1.08) H 06/13/16 10:45 APTT 38.4 Seconds (23.7-30.8) H 06/10/16 19:05 D-Dimer, Quantitative 1.98 mg/L FEU (0-0.50) H 06/11/16 08:30 pCO2 50 mm/Hg (35-45) H 06/11/16 05:30 pO2 73.0 mm/Hg (80-100) L 06/11/16 05:30 HCO3 28.2 mmol/L (21-28) H 06/11/16 05:30 ABG pH 7.36 (7.35-7.45) 06/11/16 05:30 ABG Total CO2 29.7 mmol.L (22-28) H 06/11/16 05:30 ABG O2 Saturation 95.7 % (95-98) 06/11/16 05:30 ABG O2 Content 9.9 ML/dl (15-23) L 06/11/16 05:30 ABG Base Excess 2.4 mmol/L (-2.0-3.0) 06/11/16 05:30 ABG Hemoglobin 7.7 g/dL (11.7-17.4) L 06/11/16 05:30 ABG Carboxyhemoglobin 5.5 % (0.5-1.5) H 06/11/16 05:30 POC ABG HHb (Measured) 4.0 % (0-5) 06/11/16 05:30 ABG Methemoglobin 0.6 % (0.0-3.0) 06/11/16 05:30 ABG O2 Capacity 10.3 mL/dl (16-24) L 06/11/16 05:30 Hgb O2 Saturation 89.9 % (95.0-98.0) L 06/11/16 05:30 FiO2 21.0 % 06/11/16 05:30 Sodium 137 mmol/L (132-148) 06/25/16 06:30 Potassium 4.4 mmol/L (3.6-5.0) 06/25/16 06:30 Chloride 103 mmol/L (98-107) 06/25/16 06:30 Carbon Dioxide 26 mmol/L (21-33) 06/25/16 06:30 Anion Gap 12 (10-20) 06/25/16 06:30 BUN 8 mg/dL (7-21) 06/25/16 06:30 Creatinine 0.4 mg/dL (0.5-1.4) L 06/25/16 06:30 Est GFR ( Amer) > 60 06/25/16 06:30 Est GFR (Non-Af Amer) > 60 06/25/16 06:30 Random Glucose 92 mg/dL (70-110) 06/25/16 06:30 Calcium 8.7 mg/dL (8.4-10.5) 06/25/16 06:30 Total Bilirubin 3.2 mg/dL (0.2-1.3) H 06/25/16 06:30 AST 128 U/L (15-39) H 06/25/16 06:30 ALT 80 U/L (7-56) H 06/25/16 06:30 Alkaline Phosphatase 95 U/L (38-133) 06/25/16 06:30 Troponin I 0.02 ng/mL 06/11/16 03:00 Total Protein 8.1 g/dL (5.8-8.3) 06/25/16 06:30 Albumin 3.5 g/dL (3.0-4.8) 06/25/16 06:30 Globulin 4.6 gm/dL 06/25/16 06:30 Albumin/Globulin Ratio 0.8 (1.1-1.8) L 06/25/16 06:30 Procalcitonin 0.41 NG/ML (0.19-0.49) 06/11/16 08:30 Beta HCG, Quant < 2.39 mIU/mL (0-6.15) 06/10/16 19:05 Urine Color Yellow (YELLOW) 06/11/16 03:30 Urine Appearance Clear (CLEAR) 06/11/16 03:30 Urine pH 7.0 (4.7-8.0) 06/11/16 03:30 Ur Specific [place] 1.010 (1.005-1.035) 06/11/16 03:30 Urine Protein Negative mg/dL (<30 mg/dL) 06/11/16 03:30 Urine Glucose (UA) Negative mg/dL (NEGATIVE) 06/11/16 03:30 Urine Ketones Negative mg/dL (NEGATIVE) 06/11/16 03:30 Urine Blood Trace-lysed (NEGATIVE) H 06/11/16 03:30 Urine Nitrate Negative (NEGATIVE) 06/11/16 03:30 Urine Bilirubin Negative (NEGATIVE) 06/11/16 03:30 Urine Urobilinogen 1.0 E.U./dL (<1 E.U./dL) H 06/11/16 03:30 Ur Leukocyte Esterase Negative Luz/uL (NEGATIVE) 06/11/16 03:30 Urine RBC 0 - 2 /hpf (0-2) 06/11/16 03:30 Urine WBC 0 - 2 /hpf (0-6) 06/11/16 03:30 Ur Epithelial Cells 0 - 2 /hpf (0-5) 06/11/16 03:30 Urine Bacteria Occ (NEG) 06/11/16 03:30 Urine HCG, Qual Negative (NEGATIVE) 06/11/16 03:30 Hepatitis A IgM Ab Negative (NEGATIVE) 06/17/16 05:45 Hep Bs Antigen Negative (NEGATIVE) 06/17/16 05:45 Hep B Core IgM Ab Negative (NEGATIVE) 06/17/16 05:45 Hepatitis C Antibody Negative (NEGATIVE) 06/17/16 05:45 Blood Type B POSITIVE 06/19/16 12:21 Antibody Screen Negative 06/19/16 12:21 Crossmatch See Detail 06/19/16 12:21 BBK History Checked Patient has bt 06/19/16 12:21 Attending/Attestation - Attestation I have personally seen and examined this patient.: Yes I have fully participated in the care of the patient.: Yes I have reviewed all pertinent clinical information, including history, physical exam and plan: Yes Notes (Text): 06/25/16 14:50 Attending note; Patient seen and examined with resident. 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 Currently complaining of nonspecific discomfort. Sickle cell crisis resolved. Retic count is 5.1. HB is 10.2. thrombocytopenia; Hydrea on hold. Follow up with Dr. Palacios in 3 to 5 days. Case discussed with hematology Dr. palacios in detail. Follow-up with PMD . 06/25/16 14:50
[2016-06-25] MEDS: DiphenhydrAMINE 50 mg/ml Inj IVP PRN (09:48)
[2016-06-25] MEDS ORDERED: HYDROmorphone 0.5 mg/0.5 ml ISec IVP STA (16:39)
[2016-06-26 13:46] LABS: HEPARIN-IND PLATELET AB Negative (Negative)
[2016-06-26 16:40] LABS: UFH SRA RESULT Negative (Negative)
== END 2016-06-25 18:29 | disposition home or self-care (01) | DRG 574 ==
LOC: ED 17:47 → ERH 21:12 → 2RNO 06-11 02:54 → 3RNO 06-13 12:28
PROVIDERS: ADMIT Internal Medicine; ATTEND Internal Medicine
PROC: 30233N1 Transfusion of Nonautologous Red Blood Cells into Peripheral Vein, Percutaneous Approach (ICD-10-PCS; principal; 2016-06-17)
DX: D57.01 Hb-SS disease with acute chest syndrome (principal); I50.22 Chronic systolic (congestive) heart failure; I11.0 Hypertensive heart disease with heart failure; D69.6 Thrombocytopenia, unspecified; E83.111 Hemochromatosis due to repeated red blood cell transfusions; I27.2 Other secondary pulmonary hypertension; F31.9 Bipolar disorder, unspecified; J45.909 Unspecified asthma, uncomplicated; G80.9 Cerebral palsy, unspecified; K59.00 Constipation, unspecified; Z88.6 Allergy status to analgesic agent

== ENCOUNTER 2016-07-01 15:42 | Emergency (ER) | payer OTHER ==
[2016-07-01 16:16] VITALS: BMI 19.2
[2016-07-01 16:19] VITALS: RESP 18; O2SAT 98
[2016-07-01] MEDS ORDERED: Albuterol-Ipratrop 3 mg / 0.5 (3 ml) UD IH STA (16:35)
[2016-07-01 17:29] LABS: ADD MANUAL DIFF? NO
[2016-07-01 17:41] LABS: BASO # 0.05 [, K/mm3] (0.0-2.0); BASO % 0.8 % (0.0-3.0); EOS # 0.1 (0.0-0.7); EOS % 1.4 % (1.5-5.0); GRAN # 3.12 (1.4-6.5); GRAN % 47.3 % (50.0-68.0); LYMPH # 2.5 (1.2-3.4); LYMPH % 37.7 % (22.0-35.0); MEAN CELL VOLUME 93.7 fL (80.0-105.0); MEAN CORPUSCULAR HEMOGLOBIN 32.5 pg (25.0-35.0); MEAN CORPUSCULAR HGB CONC 34.7 g/dl (31.0-37.0); MEAN PLATELET VOLUME 11.1 fl (7.0-11.0); MONO # 0.8 (0.1-0.6); MONO % 12.8 % (1.0-6.0); PLATELET COUNT 140 [, 10^3/uL] (120.0-450.0); RED CELL DISTRIBUTION WIDTH 22.6 % (11.5-14.5); WHITE BLOOD COUNT 6.6 [, 10^3/ul] (4.5-11.0)
[2016-07-01] MEDS ORDERED: HYDROmorphone 1 mg/ml ISec IVP STA (17:43)
[2016-07-01 17:47] LABS: HEMATOCRIT 23.9 % (36.0-48.0)
[2016-07-01 17:48] LABS: URINE BILIRUBIN NEGATIVE (NEGATIVE); URINE BLOOD NEGATIVE (NEGATIVE); URINE GLUCOSE (UA) NEGATIVE (NEGATIVE); URINE KETONE NEGATIVE (NEGATIVE); URINE LEUKOCYTE ESTERASE NEGATIVE Leu/uL (NEGATIVE); URINE PROTEIN NEGATIVE mg/dL (<30 mg/dL)
[2016-07-01 17:48] LABS: ALB/GLOB RATIO 0.7 (1.1-1.8); ALKALINE PHOSPHATASE 110 U/L (38-133); ALT/SGPT 129 U/L (7-56); AST/SGOT 163 U/L (15-39); BILIRUBIN,TOTAL 2.1 mg/dL (0.2-1.3); BLOOD UREA NITROGEN 15 mg/dL (7-21); CALCIUM 8.7 mg/dL (8.4-10.5); CARBON DIOXIDE 30 mmol/L (21-33); CHLORIDE 103 mmol/L (98-107); GFR AFRICAN-AMERICAN > 60; GLUCOSE,RANDOM 96 mg/dL (70-110); MAGNESIUM 1.7 mg/dL (1.7-2.2); POTASSIUM 4.4 mmol/L (3.6-5.0); SODIUM 140 mmol/L (132-148); TOTAL PROTEIN 8.5 g/dL (5.8-8.3)
[2016-07-01 17:49] LABS: URINE APPEARANCE CLEAR (CLEAR); URINE COLOR YELLOW (YELLOW)
[2016-07-01 17:57] LABS: TROPONIN I 0.02 ng/mL
--- NOTE | 2016-07-01 19:03 | ED PDOC ---
Arrival/HPI - General Chief Complaint: Chest Pain Time Seen by Provider: 07/01/16 15:44 Historian: Patient - History of Present Illness Narrative History of Present Illness (Text): 07/01/16 15:45 A 35 year old female, who has a extensive past medical history, presents to the emergency department complaining of her typical chest pains. Patient presented to the emergency department numerous times and has been admitted multiple times for the same complaints. Patient denies any shortness of breath, fever, cough or other complaints. Patient was recently discharged from the hospital after being evaluated for the same time. PMD: Dr. Gill Time/Duration: Prior to Arrival Symptom Onset: Sudden Symptom Course: Unchanged Quality: Other Activities at Onset: Rest Context: Home Past Medical History - Provider Review Nursing Documentation Reviewed: Yes - Infectious Disease Hx of Infectious Diseases: None - Tetanus Immunization Tetanus Immunization: Up to Date - Cardiac Hx Cardiac Disorders: No - Pulmonary Hx Respiratory Disorders: Yes Hx Asthma: Yes Hx Bronchitis: Yes Hx Pneumonia: Yes - Neurological Hx Neurological Disorder: Yes (cerebral palsy) - HEENT Hx HEENT Disorder: No - Renal Hx Renal Disorder: No - Endocrine/Metabolic Hx Endocrine Disorders: Yes - Hematological/Oncological Hx Blood Disorders: Yes Hx Anemia: Yes (Sickle Cell) Hx Sickle Cell Disease: Yes - Integumentary Hx Dermatological Disorder: No - Musculoskeletal/Rheumatological Hx Musculoskeletal Disorders: Yes Hx Falls: Yes - Gastrointestinal Hx Gastrointestinal Disorders: Yes Hx Gall Bladder Disease: Yes (Cholecystectomy) Hx Pancreatitis: Yes - Genitourinary/Gynecological Hx Genitourinary Disorders: Yes Hx Sexually Transmitted Diseases: Yes (GENITAL HERPES) Hx Urinary Tract Infection: Yes - Psychiatric Hx Psychophysiologic Disorder: Yes Hx Anxiety: Yes Hx Bipolar Disorder: Yes Hx Depression: Yes Hx Substance Use: No - Surgical History Hx Cholecystectomy: Yes Hx Joint Replacement: Yes (R hip) Hx Splenectomy: Yes - Anesthesia Hx Anesthesia: Yes Hx Anesthesia Reactions: No Hx Malignant Hyperthermia: No - Suicidal Assessment Feels Threatened In Home Enviroment: No Family/Social History - Physician Review Nursing Documentation Reviewed: Yes Family/Social History: Unknown Family HX Smoking Status: Unknown If Ever Smoked Hx Alcohol Use: No Hx Substance Use: No Hx Substance Use Treatment: No Allergies/Home Meds Allergies/Adverse Reactions: Allergies acetaminophen Allergy (Verified 07/01/16 16:16) RASH aspirin Allergy (Verified 07/01/16 16:16) RASH coconut oil Allergy (Verified 07/01/16 16:16) RASH morphine Allergy (Verified 07/01/16 16:16) SWELLING mushroom Allergy (Verified 07/01/16 16:16) URTICARIA oxycodone Allergy (Verified 07/01/16 16:16) RASH Home Medications: Home Meds Medication Instructions Recorded Confirmed Albuterol HFA [Ventolin HFA 90 90 mcg IH PRN PRN 06/10/16 06/10/16 mcg/actuation (8 g)] Ammonium Lactate 12% [Lac-Hydrin 1 appful TOP DAILY 06/10/16 06/10/16 12% Cream (140 g)] Levonorgestrel-Ethin Estradiol 1 tab PO DAILY 06/10/16 06/10/16 [Aviane-28 Tablet] Mometasone Furoate [Asmanex Hfa] 100 mcg IH BID 06/10/16 06/10/16 Multivitamin with Iron [Tab-A-Will 1 tab PO DAILY 06/10/16 06/10/16 with Iron] traZODone [Desyrel] 25 mg PO HS 06/10/16 06/10/16 Review of Systems - Physician Review All systems were reviewed & negative as marked: Yes - Review of Systems Constitutional: absent: Fevers Respiratory: absent: SOB, Cough Cardiovascular: Chest Pain Physical Exam Vital Signs Reviewed: Yes Vital Signs Temp Pulse Resp BP Pulse Ox 07/02/16 00:30 97.9 F 96 H 18 120/66 98 07/01/16 17:54 114 H 18 118/68 98 07/01/16 16:19 98.0 F 120 H 18 121/79 98 Temperature: Afebrile Blood Pressure: Normal Pulse: Tachycardic Respiratory Rate: Normal Appearance: Positive for: Well-Appearing, Non-Toxic, Comfortable Pain Distress: None Mental Status: Positive for: Alert and Oriented X 3 - Systems Exam Head: Present: Atraumatic, Normocephalic Pupils: Present: PERRL Extroacular Muscles: Present: EOMI Conjunctiva: Present: Normal Mouth: Present: Moist Mucous Membranes Neck: Present: Normal Range of Motion Respiratory/Chest: Present: Clear to Auscultation, Good Air Exchange. No: Respiratory Distress, Accessory Muscle Use Cardiovascular: Present: Normal S1, S2, Tachycardic. No: Murmurs Abdomen: Present: Normal Bowel Sounds. No: Tenderness, Distention, Peritoneal Signs Back: Present: Normal Inspection Upper Extremity: Present: Normal Inspection. No: Cyanosis, Edema Lower Extremity: Present: Normal Inspection. No: Edema Neurological: Present: GCS=15, CN II-XII Intact, Speech Normal Skin: Present: Warm, Dry, Normal Color. No: Rashes Psychiatric: Present: Alert, Oriented x 3, Normal Insight, Normal Concentration Medical Decision Making ED Course and Treatment: 07/01/16 15:45 Impression: A 35 year old female with chest pain. Differential Diagnosis include but are not limited to: ACS Plan: -- EKG -- Chest X-ray -- Labs -- Urinalysis -- Duoneb and Solu-Medrol -- Reassess and disposition Prior Visits: Notes and results from previous visits were reviewed. Patient last discharged from the hospital 6 days ago after a 2 and half week stay and work up for the same complaint. Progress Notes: EKG: Ordered, reviewed, and independently interpreted the EKG. Rate : 116 BPM Rhythm : Sinus tachycardia Interpretation : normal axis, normal intervals. - Lab Interpretations Lab Results: 07/01/16 17:00 07/01/16 17:00 Lab Results 07/01/16 17:30: Urine Color Yellow, Urine Appearance Clear, Urine pH 7.0, Ur Specific [place] 1.010, Urine Protein Negative, Urine Glucose (UA) Negative, Urine Ketones Negative, Urine Blood Negative, Urine Nitrate Negative, Urine Bilirubin Negative, Urine Urobilinogen 2.0 H, Ur Leukocyte Esterase Negative 07/01/16 17:00: Sodium 140, Potassium 4.4, Chloride 103, Carbon Dioxide 30, Anion Gap 11, BUN 15, Creatinine 0.5, Est GFR ( Amer) > 60, Est GFR (Non- Af Amer) > 60, Random Glucose 96, Calcium 8.7, Magnesium 1.7, Total Bilirubin 2.1 H, AST 163 H, ALT 129 H, Alkaline Phosphatase 110, Lactate Dehydrogenase 600 , Total Creatine Kinase < 20 L, Troponin I 0.02, Total Protein 8.5 H, Albumin 3.6, Globulin 4.9, Albumin/Globulin Ratio 0.7 L 07/01/16 17:00: WBC 6.6, RBC 2.55 L, Hgb 8.3 L, Hct 23.9 L, MCV 93.7, MCH 32.5, MCHC 34.7, RDW 22.6 H, Plt Count 140, MPV 11.1 H, Gran % 47.3 L, Lymph % (Auto) 37.7 H, Bell % (Auto) 12.8 H, Eos % (Auto) 1.4 L, Baso % (Auto) 0.8, Gran # 3.12 , Lymph # 2.5, Bell # 0.8 H, Eos # 0.1, Baso # 0.05 I have reviewed the lab results: Yes - RAD Interpretation Radiology Orders: 07/01/16 16:30 CHEST PORTABLE [RAD] Stat - Medication Orders Current Medication Orders: Discontinued Medications Albuterol/Ipratropium (Duoneb 3 Mg/0.5 Mg (3 Ml) Ud) 3 ml IH STAT STA Stop: 07/01/16 16:36 Last Admin: 07/01/16 17:38 Dose: 3 ml Hydromorphone HCl (Dilaudid) 1 mg IVP STAT STA Stop: 07/01/16 17:44 Last Admin: 07/01/16 18:07 Dose: 1 mg Methylprednisolone (Solu-Medrol) 125 mg IVP STAT STA Stop: 07/01/16 16:36 Last Admin: 07/01/16 17:38 Dose: 125 mg - Scribe Statement The provider has reviewed the documentation as recorded by the Marco Antonio Cerda Provider Scribe Attestation: All medical record entries made by the Kelseaibarmando were at my direction and personally dictated by me. I have reviewed the chart and agree that the record accurately reflects my personal performance of the history, physical exam, medical decision making, and the department course for this patient. I have also personally directed, reviewed, and agree with the discharge instructions and disposition. Disposition/Present on Arrival - Present on Arrival Any Indicators Present on Arrival: No History of DVT/PE: No History of Uncontrolled Diabetes: No Urinary Catheter: No History of Decub. Ulcer: No History Surgical Site Infection Following: None - Disposition Have Diagnosis and Disposition been Completed?: Yes Diagnosis: Sickle cell anemia Disposition: HOME/ ROUTINE Disposition Time: 18:00 Condition: GOOD Discharge Instructions (ExitCare): Sickle Cell Anemia (GEN) Additional Instructions: Thank you for letting us take care of you today. Your provider was Dr. Laboy. You were treated for sickle cell disease. The emergency medical care you received today was directed at your acute symptoms. If you were prescribed any medication, please fill it and take as directed. It may take several days for your symptoms to resolve. Return to the Emergency Department if your symptoms worsen, do not improve, or if you have any other problems. Please contact your doctor or call one of the physicians/clinics you have been referred to that are listed on the Patient Visit Information form that is included in your discharge packet. Bring any paperwork you were given at discharge with you along with any medications you are taking to your follow up visit. Our treatment cannot replace ongoing medical care by a primary care provider (PCP) outside of the emergency department. Thank you for allowing the [facility] team to be part of your care today. Follow up with your doctor in 3-4 days to be re-evaluated. Referrals: Charissa Gill MD [Primary Care Provider] - Follow up with primary
[2016-07-02 01:31] VITALS: BP 120/66; PULSE 96; TEMP 97.9
--- NOTE | 2016-07-02 07:25 | RAD ---
HISTORY: chest pain COMPARISON: Comparison is made to the previous study dated 06/13/2016 FINDINGS: LUNGS: No evidence of new infiltrate or consolidation in the lungs. PLEURA: No significant pleural effusion identified, no pneumothorax apparent. CARDIOVASCULAR: The cardiac silhouette is prominent in size this portable study. OSSEOUS STRUCTURES: No significant abnormalities. VISUALIZED UPPER ABDOMEN: Normal. OTHER FINDINGS: Right-sided Infusaport is seen in place. IMPRESSION: No significant interval change since the previous exam noted.
--- NOTE | 2016-07-02 08:51 | CARD ---
APPROVED REPORT EKG Measurement Heart [id number] [place] P33 [id number] <Conclusion> Sinus tachycardia Moderate voltage criteria for LVH, may be normal variant T wave abnormality, consider anterior ischemia Abnormal ECG
== END 2016-07-02 01:20 | disposition home or self-care (01) ==
LOC: ED 15:42
DX: D57.1 Sickle-cell disease without crisis (principal)
CPT/HCPCS: 71010; 80053; 81003; 82550; 83615; 83735; 84484; 85025; 93005; 96374; 96375; 99284; J1170; J2930

== ENCOUNTER 2016-07-05 12:52 | Inpatient (IN) | payer OTHER ==
[2016-07-05 13:12] VITALS: BMI 27.4
--- NOTE | 2016-07-05 13:33 | ED PDOC ---
Arrival/HPI - General Historian: Patient - History of Present Illness Time/Duration: Other (Prior to EMS arrival) Symptom Course: Unchanged Quality: Other Context: Other <Vance Castillo - Last Filed: 07/05/16 18:49> <Nile Salcedo - Last Filed: 07/05/16 21:10> - General Time Seen by Provider: 07/05/16 13:32 - History of Present Illness Narrative History of Present Illness (Text): 07/05/16 13:33 A 35 year old female, whose past medical history includes cerebral palsy, bipolar disorder, depression, sickle cell disease, hypertension, anxiety, pancreatitis and asthma, presents to the emergency department complaining of retrosternal chest pain prior to EMS arrival. Patient describes her pain as a pressure sensation and denies any radiation. She denies any relieving or exacerbating factors. Patient denies any fever, chills, nausea, vomiting, abdominal pain, shortness of breath or any other complaints. PMD: Dr. Gill (Vance Castillo) Past Medical History - Provider Review Nursing Documentation Reviewed: Yes - Infectious Disease Hx of Infectious Diseases: None - Tetanus Immunization Tetanus Immunization: Up to Date - Cardiac Hx Cardiac Disorders: No - Pulmonary Hx Respiratory Disorders: Yes Hx Asthma: Yes Hx Bronchitis: Yes Hx Pneumonia: Yes - Neurological Hx Neurological Disorder: Yes (cerebral palsy) - HEENT Hx HEENT Disorder: No - Renal Hx Renal Disorder: No - Endocrine/Metabolic Hx Endocrine Disorders: Yes - Hematological/Oncological Hx Blood Disorders: Yes Hx Anemia: Yes (Sickle Cell) Hx Sickle Cell Disease: Yes - Integumentary Hx Dermatological Disorder: No - Musculoskeletal/Rheumatological Hx Musculoskeletal Disorders: Yes Hx Falls: Yes - Gastrointestinal Hx Gastrointestinal Disorders: Yes Hx Gall Bladder Disease: Yes (Cholecystectomy) Hx Pancreatitis: Yes - Genitourinary/Gynecological Hx Genitourinary Disorders: Yes Hx Sexually Transmitted Diseases: Yes (GENITAL HERPES) Hx Urinary Tract Infection: Yes - Psychiatric Hx Psychophysiologic Disorder: Yes Hx Anxiety: Yes Hx Bipolar Disorder: Yes Hx Depression: Yes Hx Substance Use: No - Surgical History Hx Cholecystectomy: Yes Hx Joint Replacement: Yes (R hip) Hx Splenectomy: Yes - Anesthesia Hx Anesthesia: Yes Hx Anesthesia Reactions: No Hx Malignant Hyperthermia: No - Suicidal Assessment Feels Threatened In Home Enviroment: No <Vance Castillo - Last Filed: 07/05/16 18:49> Family/Social History - Physician Review Nursing Documentation Reviewed: Yes Family/Social History: No Known Family HX Smoking Status: Unknown If Ever Smoked Hx Alcohol Use: No Hx Substance Use: No Hx Substance Use Treatment: No <Vance Castillo - Last Filed: 07/05/16 18:49> Allergies/Home Meds <Vance Castillo - Last Filed: 07/05/16 18:49> <Nile Salcedo - Last Filed: 07/05/16 21:10> Allergies/Adverse Reactions: Allergies acetaminophen Allergy (Verified 07/01/16 16:16) RASH aspirin Allergy (Verified 07/01/16 16:16) RASH coconut oil Allergy (Verified 07/01/16 16:16) RASH morphine Allergy (Verified 07/01/16 16:16) SWELLING mushroom Allergy (Verified 07/01/16 16:16) URTICARIA oxycodone Allergy (Verified 07/01/16 16:16) RASH Home Medications: Home Meds Medication Instructions Recorded Confirmed Albuterol HFA [Ventolin HFA 90 90 mcg IH PRN PRN 06/10/16 06/10/16 mcg/actuation (8 g)] Ammonium Lactate 12% [Lac-Hydrin 1 appful TOP DAILY 06/10/16 06/10/16 12% Cream (140 g)] Levonorgestrel-Ethin Estradiol 1 tab PO DAILY 06/10/16 06/10/16 [Aviane-28 Tablet] Mometasone Furoate [Asmanex Hfa] 100 mcg IH BID 06/10/16 06/10/16 Multivitamin with Iron [Tab-A-Will 1 tab PO DAILY 06/10/16 06/10/16 with Iron] traZODone [Desyrel] 25 mg PO HS 06/10/16 06/10/16 Physical Exam Vital Signs Reviewed: Yes Temperature: Afebrile Blood Pressure: Normal Pulse: Tachycardic Respiratory Rate: Normal Appearance: Positive for: Well-Appearing, Non-Toxic, Comfortable Pain Distress: None Mental Status: Positive for: Alert and Oriented X 3 <Vance Castillo - Last Filed: 07/05/16 18:49> <Nile Salcedo - Last Filed: 07/05/16 21:10> - Physical Exam Narrative Physical Exam (Text): - Review of Systems Constitutional: Normal. absent: Fatigue, Weight Change, Fevers Eyes: Normal ENT: Normal Respiratory: Normal absent: SOB, Cough, Sputum Cardiovascular: (+) Chest pain absent: Palpitations, Syncope Gastrointestinal: Normal absent: Abdominal pain, Diarrhea, Nausea, Vomiting Genitourinary: Normal. absent: Dysuria, Frequency, Hematuria Musculoskeletal: Normal. absent: Arthralgias, Back Pain, Neck Pain Skin: Normal Neurological: Normal absent: Focal Weakness Endocrine: Normal Hemo/Lymphatic: Normal Psychiatric: Normal - Physical exam Patient appears age appropriate, speaking full sentences without difficulty - Systems Exam Head: Present: Atraumatic, Normocephalic Pupils: Present: PERRL Extraocular Muscles: Present: EOMI Conjunctiva: Present: Normal Mouth: Present: Moist Mucous Membranes Neck: Present: Normal Range of Motion. No: MIDLINE TENDERNESS, Paraspinal Tenderness Respiratory/Chest: Present: Clear to Auscultation, Good Air Exchange. No: Respiratory Distress, Accessory Muscle Use, Tachypnic Cardiovascular: Present: Regular Rate and Rhythm, Normal S1, S2, Peripheral Pulses Present. No: Murmurs Abdomen: Present: Normal Bowel Sounds, No: Tenderness, Peritoneal Signs, Rebound, Guarding, Distention Back: Present: Normal Inspection. No: Midline Tenderness, Paraspinal Tenderness Upper Extremity: Present: Normal Inspection. No: Cyanosis, Edema Lower Extremity: Present: Normal Inspection. No: Edema Neurological: Present: GCS=15, Speech Normal, cranial nerves II through XII fully intact with no cerebellar abnormality, neuro-sensory fully intact. No focal neurological deficits. Skin: Present: Warm, Dry, Normal Color. No: Rashes Lymphatic: Present: OX3, NI, NC Psychiatric: Present: Alert, Oriented x 3, Normal Insight, Normal Concentration (Zelikson,Vance) Vital Signs Temp Pulse Pulse Resp BP BP Pulse Ox 07/05/16 19:50 75 18 124/62 98 07/05/16 17:01 79 18 126/65 98 07/05/16 15:35 89 18 128/67 98 07/05/16 14:42 92 H 18 130/68 98 07/05/16 13:12 98.2 F 100 H 18 132/71 98 07/05/16 13:10 100 H 132/71 Medical Decision Making <Vance Castillo - Last Filed: 07/05/16 18:49> <Nile Salcedo - Last Filed: 07/05/16 21:10> ED Course and Treatment: 07/05/16 13:33 Impression: A 35 year old female with retrosternal chest pain. Physical exam unremarkable. Plan: -- Chest xray -- EKG -- Labs -- Aspirin -- Reassess and disposition Prior Visits: Notes and results from previous visits were reviewed. Patient last seen in ED on 07/01/16 for chest pain. (Vance Castillo) 07/05/16 20:37 Case was endorsed to me from pending CT chest angio.Results negative for PE.Pt. interviewed and examimed.Pt. now with generalized body aches she states c/w her sickle cell disease.Pain meds ordered.Pt. will be kept for obsevation /pain management.Case d/w registered medical transcriptionist and house doctor .Accepted to the hospitalist service (Nile Salcedo) - RAD Interpretation Radiology Orders: 07/05/16 13:38 CHEST PORTABLE [RAD] Stat - Medication Orders Current Medication Orders: Discontinued Medications Diphenhydramine HCl (Benadryl) 25 mg IVP ONCE ONE Stop: 07/05/16 20:23 Hydromorphone HCl (Dilaudid) 1 mg IVP STAT STA Stop: 07/05/16 20:23 ED OBSERVATION Date of observation admission: 07/05/16 Time of observation admission: 13:38 <Vance Castillo - Last Filed: 07/05/16 18:49> <Nile Salcedo - Last Filed: 07/05/16 21:10> - Observation admission statement Patient is being placed in observation because:: Chest pain (Vance Castillo) - Goals of Observation Goals of observation are:: Monitor and treat patients symptoms (Vance Castillo) - Progress Note Progress Note: 07/05/16 13:38 Patient with chest pain. Chest xray, EKG, labs ordered. Will re-evaluate after medication administered. EKG shows NSR at [address]-segment elevations, normal intervals. Interpreted by me. 07/05/16 18:49 informed by RN that pt has no IV access pt states her port is good for IV contrast which she has received in the past 07/05/16 19:00 signed out in stable condition to Dr. Salcedo, pending CT, reeval, dispo ( Vance Castillo) 07/05/16 19:00 Patient signed out to me pending CT read, reevaluation, and disposition. 35 year old female presented with retrosternal chest pain prior to arrival. 07/05/16 20:24 EXAM: CT Angiography Chest With Intravenous Contrast FINDINGS: Artifacts: Motion artifact degrades image quality. Heart, aorta and Pulmonary arteries: The heart is enlarged.There is minimal fluid in the pericardial recesses.There is no aneurysm or dissection.There are vascular calcifications.there are no central pulmonary emboli. Allowing for patient motion, no peripheral emboli are identified. Lungs and pleural spaces: Trachea and main bronchi are patent. There are asymmetric groundglass opacities bilaterally. There is airspace at the lung bases right greater than left. There is nodular scarring at the right base similar to that seen on the prior study. There is no lobar or segmental consolidation. There are no effusions. Mediastinum: There are mildly enlarged mediastinal nodes. There are no pathologically enlarged hilar nodes. Esophagus is unremarkable. There is a small hiatal hernia. Thyroid: Thyroid is not optimally demonstrated. Bones/joints: There are degenerative changes in the osseus structures. Soft tissues: unremarkable Upper abdomen: The spleen is absent. Liver is incompletely imaged but appears enlarged. Tubes, lines and devices: There is a Port-A-Cath in the right chest wall. Catheter tip is at the cavoatrial junction. IMPRESSION: Limited by patient motion, no aneurysm, dissection or pulmonary embolus; asymmetric airspace disease with scarring at the lung bases right greater than left, no lobar or segmental consolidation Dictated and Authenticated by: Kirsty Self MD 07/05/2016 8:13 PM Eastern Time ([place] & [place]) (Nile Salcedo) Disposition/Present on Arrival - Present on Arrival Any Indicators Present on Arrival: No History of DVT/PE: No History of Uncontrolled Diabetes: No Urinary Catheter: No History Surgical Site Infection Following: None - Disposition Have Diagnosis and Disposition been Completed?: Yes Disposition Time: 13:38 Patient Plan: Observation <Vance Castillo - Last Filed: 07/05/16 18:49> - Present on Arrival Any Indicators Present on Arrival: No History of DVT/PE: No History of Uncontrolled Diabetes: No Urinary Catheter: No History of Decub. Ulcer: No History Surgical Site Infection Following: None - Disposition Have Diagnosis and Disposition been Completed?: Yes Disposition Time: 20:36 Patient Plan: Observation <Nile Salcedo - Last Filed: 07/05/16 21:10> - Disposition Diagnosis: Chest pain, Sickle cell pain crisis Disposition: HOSPITALIZED Patient Problems: Current Active Problems Problem Status Onset Chest pain Acute Sickle cell pain crisis Acute Condition: STABLE
[2016-07-05 16:25] LABS: MEAN CELL VOLUME 95.2 fL (80.0-105.0); MEAN CORPUSCULAR HEMOGLOBIN 33.3 pg (25.0-35.0); MEAN PLATELET VOLUME 10.4 fl (7.0-11.0); PLATELET COUNT 165 10^3/uL (120.0-450.0); RED CELL DISTRIBUTION WIDTH 23.8 % (11.5-14.5); WHITE BLOOD COUNT 10.2 10^3/ul (4.5-11.0)
[2016-07-05 16:29] LABS: ALB/GLOB RATIO 0.8 (1.1-1.8); ALKALINE PHOSPHATASE 120 U/L (38-133); ALT/SGPT 106 U/L (7-56); AST/SGOT 130 U/L (15-39); BILIRUBIN,TOTAL 1.6 mg/dL (0.2-1.3); BLOOD UREA NITROGEN 16 mg/dL (7-21); CALCIUM 7.5 mg/dL (8.4-10.5); CARBON DIOXIDE 28 mmol/L (21-33); CHLORIDE 101 mmol/L (98-107); GFR AFRICAN-AMERICAN > 60; GLUCOSE,RANDOM 87 mg/dL (70-110); POTASSIUM 5.2 mmol/L (3.6-5.0); SODIUM 138 mmol/L (132-148); TOTAL PROTEIN 8.9 g/dL (5.8-8.3)
[2016-07-05 16:31] LABS: ADD MANUAL DIFF? YES
[2016-07-05 16:38] LABS: INR 1.14 (0.93-1.08); PARTIAL THROMBOPLASTIN TIME 29.2 Seconds (23.7-30.8)
[2016-07-05 16:40] LABS: TROPONIN I 0.02 ng/mL
[2016-07-05 16:52] LABS: D DIMER 0.75 mg/L FEU (0-0.50)
[2016-07-05 17:16] LABS: ATYPICAL LYMPHOCYTE 2 % (0.0-0.0)
[2016-07-05 17:17] LABS: ANISOCYTOSIS 1+; EOSINOPHIL 2 % (0.0-3.0); HYPOCHROMIA 2+; LARGE PLATELETS PRESENT; MICROCYTOSIS 1+; NEUTROPHIL 40 % (50.0-70.0); NUCLEATED RED BLOOD CELL 3 %; OVALOCYTES 1+; POIKILOCYTOSIS 2+; POLYCHROMASIA 1+; TARGET CELLS 1+
[2016-07-05] MEDS ORDERED: Iohexol 350 MG/100 ML VIAL ONE (18:22)
--- NOTE | 2016-07-05 20:13 | CT ---
EXAM: CT Angiography Chest With Intravenous Contrast CLINICAL HISTORY: 35 years old, female; Signs and symptoms; Dyspnea; Additional info: R/O pe TECHNIQUE: Axial computed tomographic angiography images of the chest with intravenous contrast using pulmonary embolism protocol. This CT exam was performed using one or more of the following dose reduction techniques: automated exposure control, adjustment of the mA and/or kV according to patient size, and/or use of iterative reconstruction technique. MIP reconstructed images were created and reviewed. Coronal and sagittal reformatted images were created and reviewed. CONTRAST: 100 mL of [id number] administered intravenously. EXAM DATE/TIME: 07/05/2016 5:10 PM COMPARISON: CT - CHEST W/O CONTRAST 06/22/2015 10:46:48 PM FINDINGS: Artifacts: Motion artifact degrades image quality. Heart, aorta and Pulmonary arteries: The heart is enlarged.There is minimal fluid in the pericardial recesses.There is no aneurysm or dissection.There are vascular calcifications.there are no central pulmonary emboli. Allowing for patient motion, no peripheral emboli are identified. Lungs and pleural spaces: Trachea and main bronchi are patent. There are asymmetric groundglass opacities bilaterally. There is airspace at the lung bases right greater than left. There is nodular scarring at the right base similar to that seen on the prior study. There is no lobar or segmental consolidation. There are no effusions. Mediastinum: There are mildly enlarged mediastinal nodes. There are no pathologically enlarged hilar nodes. Esophagus is unremarkable. There is a small hiatal hernia. Thyroid: Thyroid is not optimally demonstrated. Bones/joints: There are degenerative changes in the osseus structures. Soft tissues: unremarkable Upper abdomen: The spleen is absent. Liver is incompletely imaged but appears enlarged. Tubes, lines and devices: There is a Port-A-Cath in the right chest wall. Catheter tip is at the cavoatrial junction. IMPRESSION: Limited by patient motion, no aneurysm, dissection or pulmonary embolus; asymmetric airspace disease with scarring at the lung bases right greater than left, no lobar or segmental consolidation Additional findings as described above.
[2016-07-05] MEDS ORDERED: DiphenhydrAMINE 50 mg/ml Inj IVP ONE (20:22)
[2016-07-05] MEDS ORDERED: HYDROmorphone 1 mg/ml ISec IVP STA (20:22)
[2016-07-05] MEDS ORDERED: Sodium Chloride 0.9% 1,000 ML IV SCH (22:15)
[2016-07-05 22:49] LABS: RETIC% 6.64 % (0.5-1.5)
--- NOTE | 2016-07-05 23:26 | CP.PCM.HP ---
<Juan C Frias - Last Filed: 07/06/16 00:18> History of Present Illness - History of Present Illness History of Present Illness: 35 y/o F with PMH sickle cell, cerebral palsy, asthma, HTN and bipolar disorder presents to the ED for chest pain x 1 day. Pt states the pain came on suddenly this morning and has had similar pain in the past. She reports the pain is located in the middle of her chest and is nonradiating. The pain is constant and she rates the pain as a 10/10. Pt states pain feels like someone is consistently punching her in the chest. She states she took pain medication at home, but it did not help. Pt frequently comes into the hospital with similar symptoms. She denies having any recent cough, cold, mucous production, or fevers. Pt was here 1 month ago for a similar sickle cell crisis. Of note, pt did not follow up with hematology, Philip Dumont, as instructed to in prior discharge. Pt was suppose to stop taking hydroxyurea, but states she has not. She denies SOB, n/v/d, fever, chills, numbness/tingling, headaches, dysuria, body aches. PMH: sickle cell, cerebral palsy, asthma, HTN and bipolar disorder Surgical Hx: Hip surgery, Portacath, Cholecystectomy SH: Denies tobacco, alcohol, or illicit drug use FH: Sickle cell trait in both parents All: tylenol, ASA, coconut oil, Morphine, Mushroom Medication: See MAR Present on Admission - Present on Admission Any Indicators Present on Admission: No Review of Systems - Constitutional Constitutional: absent: Fatigue, Fever - EENT Eyes: absent: Blurred Vision, Change in Vision Nose/Mouth/Throat: absent: Nasal Congestion, Nasal Discharge - Cardiovascular Cardiovascular: Chest Pain. absent: Irregular Heart Rhythm - Respiratory Respiratory: absent: Cough, Dyspnea - Gastrointestinal Gastrointestinal: absent: Abdominal Pain, Diarrhea, Vomiting - Genitourinary Genitourinary: absent: Difficulty Urinating, Dysuria - Integumentary Integumentary: absent: New Lesions, Rash - Neurological Neurological: absent: Numbness, Syncope, Tingling - Hematologic/Lymphatic Hematologic: absent: Easy Bleeding, Easy Bruising Past Patient History - Infectious Disease Hx of Infectious Diseases: None - Tetanus Immunizations Tetanus Immunization: Up to Date - Past Medical History & Family History Past Medical History?: Yes - Past Social History Smoking Status: Unknown If Ever Smoked - CARDIAC Hx Cardiac Disorders: No - PULMONARY Hx Respiratory Disorders: Yes Hx Asthma: Yes Hx Bronchitis: Yes Hx Pneumonia: Yes - NEUROLOGICAL Hx Neurological Disorder: Yes (cerebral palsy) - HEENT Hx HEENT Problems: No - RENAL Hx Chronic Kidney Disease: No - ENDOCRINE/METABOLIC Hx Endocrine Disorders: Yes - HEMATOLOGICAL/ONCOLOGICAL Hx Blood Disorders: Yes Hx Anemia: Yes (Sickle Cell) Hx Sickle Cell Disease: Yes - INTEGUMENTARY Hx Dermatological Problems: No - MUSCULOSKELETAL/RHEUMATOLOGICAL Hx Musculoskeletal Disorders: Yes Hx Falls: Yes - GASTROINTESTINAL Hx Gastrointestinal Disorders: Yes Hx Gall Bladder Disease: Yes (Cholecystectomy) Hx Pancreatitis: Yes - GENITOURINARY/GYNECOLOGICAL Hx Genitourinary Disorders: Yes Hx Sexually Transmitted Disorders: Yes (GENITAL HERPES) Hx Urinary Tract Infection: Yes - PSYCHIATRIC Hx Psychophysiologic Disorder: Yes Hx Anxiety: Yes Hx Bipolar Disorder: Yes Hx Depression: Yes Hx Substance Use: No - SURGICAL HISTORY Hx Cholecystectomy: Yes Hx Joint Replacement: Yes (R hip) Hx Splenectomy: Yes - ANESTHESIA Hx Anesthesia: Yes Hx Anesthesia Reactions: No Hx Malignant Hyperthermia: No Meds Allergies/Adverse Reactions: Allergies Allergy/AdvReac Type Severity Reaction Status Date / Time acetaminophen Allergy RASH Verified 07/01/16 16:16 aspirin Allergy RASH Verified 07/01/16 16:16 coconut oil Allergy RASH Verified 07/01/16 16:16 morphine Allergy SWELLING Verified 07/01/16 16:16 mushroom Allergy URTICARIA Verified 07/01/16 16:16 oxycodone Allergy RASH Verified 07/01/16 16:16 Physical Exam - Constitutional Appears: Toxic, No Acute Distress - Head Exam Head Exam: ATRAUMATIC, NORMAL INSPECTION, NORMOCEPHALIC - Eye Exam Eye Exam: EOMI, Normal appearance, PERRL - ENT Exam ENT Exam: Mucous Membranes Dry - Neck Exam Neck exam: Positive for: Normal Inspection. Negative for: Lymphadenopathy - Respiratory Exam Respiratory Exam: Chest Wall Tenderness, Clear to Auscultation Bilateral, NORMAL BREATHING PATTERN. absent: Rales, Rhonchi - Cardiovascular Exam Cardiovascular Exam: RRR, +S1, +S2 - GI/Abdominal Exam GI & Abdominal Exam: Normal Bowel Sounds, Soft. absent: Tenderness - Extremities Exam Extremities exam: Positive for: normal inspection. Negative for: calf tenderness, pedal edema - Neurological Exam Neurological exam: Alert, CN II-XII Intact, Oriented x3 - Skin Skin Exam: Dry, Normal Color, Warm Results - Vital Signs Recent Vital Signs: Last Vital Signs Temp 98.2 F 07/05/16 13:12 Pulse 96 H 07/05/16 21:40 Resp 18 07/05/16 21:40 BP 118/80 07/05/16 21:40 Pulse Ox 98 07/05/16 21:40 - Labs Result Diagrams: 07/05/16 16:08 07/05/16 16:08 Labs: Laboratory Results - last 24 hr 07/05/16 07/05/16 07/05/16 16:08 16:08 16:08 WBC 10.2 D RBC 2.52 L Hgb 8.4 L Hct 24.0 L MCV 95.2 MCH 33.3 MCHC 35.0 RDW 23.8 H Plt Count 165 MPV 10.4 Neutrophils % (Manual) 40 L Lymphocytes % (Manual) 49 H Atypical Lymphs % 2 H Monocytes % (Manual) 7 H Eosinophils % (Manual) 2 Nucleated RBC % 3 Large Platelets Present Polychromasia 1+ Hypochromasia 2+ Poikilocytosis (manual 2+ Anisocytosis (manual) 1+ Microcytosis (manual) 1+ Macrocytosis (manual) 1+ Sickle Cells 1+ Target Cells 1+ Ovalocytes 1+ Retic Count PT 12.3 H INR 1.14 H APTT 29.2 D-Dimer, Quantitative 0.75 H Sodium 138 Potassium 5.2 H Chloride 101 Carbon Dioxide 28 Anion Gap 14 BUN 16 Creatinine 0.4 L Est GFR ( Amer) > 60 Est GFR (Non-Af Amer) > 60 Random Glucose 87 Calcium 7.5 L Total Bilirubin 1.6 H AST 130 H ALT 106 H Alkaline Phosphatase 120 Lactate Dehydrogenase 559 Total Creatine Kinase < 20 L Troponin I 0.02 Total Protein 8.9 H Albumin 3.9 Globulin 5.1 Albumin/Globulin Ratio 0.8 L 07/05/16 16:08 WBC RBC Hgb Hct MCV MCH MCHC RDW Plt Count MPV Neutrophils % (Manual) Lymphocytes % (Manual) Atypical Lymphs % Monocytes % (Manual) Eosinophils % (Manual) Nucleated RBC % Large Platelets Polychromasia Hypochromasia Poikilocytosis (manual Anisocytosis (manual) Microcytosis (manual) Macrocytosis (manual) Sickle Cells Target Cells Ovalocytes Retic Count 6.64 H PT INR APTT D-Dimer, Quantitative Sodium Potassium Chloride Carbon Dioxide Anion Gap BUN Creatinine Est GFR ( Amer) Est GFR (Non-Af Amer) Random Glucose Calcium Total Bilirubin AST ALT Alkaline Phosphatase Lactate Dehydrogenase Total Creatine Kinase Troponin I Total Protein Albumin Globulin Albumin/Globulin Ratio Assessment & Plan - Assessment and Plan (Free Text) Plan: 35 y/o F with PMH of sickle cell, cerebral palsy, asthma, HTN and bipolar disorder presents with acute chest syndrome secondary to sickle cell crisis. Pt will be admitted to remote telemetry for further management. Pt will be started on IVF and adequate pain control. Plan: 1. Acute chest syndrome Continue to monitor CBC and reticulocyte count in AM Hydroxyurea will be held as per last hematology note. Pt has not followed up with hematology. NS@150 Dilaudid prn 2. Hx of Cerebral Palsy Continue Depakote Continue multivitamin and folic acid 3. Hx of Bipolar disorder Continue Trazodone 4. Hx of Asthma Continue albuterol prn PPX Protonix SCDs Seen, reviewed, and discussed with attending Rodriguez, PGY-1 <Elsa ANGUIANO,Jonathan - Last Filed: 07/06/16 04:10> Results - Vital Signs Recent Vital Signs: Last Vital Signs Temp 98.2 F 07/05/16 13:12 Pulse 96 H 07/05/16 21:40 Resp 21 07/06/16 00:35 BP 118/80 07/05/16 21:40 Pulse Ox 98 07/05/16 21:40 - Labs Result Diagrams: 07/05/16 16:08 07/05/16 16:08 Labs: Laboratory Results - last 24 hr 07/05/16 07/05/16 07/05/16 16:08 16:08 16:08 WBC 10.2 D RBC 2.52 L Hgb 8.4 L Hct 24.0 L MCV 95.2 MCH 33.3 MCHC 35.0 RDW 23.8 H Plt Count 165 MPV 10.4 Neutrophils % (Manual) 40 L Lymphocytes % (Manual) 49 H Atypical Lymphs % 2 H Monocytes % (Manual) 7 H Eosinophils % (Manual) 2 Nucleated RBC % 3 Large Platelets Present Polychromasia 1+ Hypochromasia 2+ Poikilocytosis (manual 2+ Anisocytosis (manual) 1+ Microcytosis (manual) 1+ Macrocytosis (manual) 1+ Sickle Cells 1+ Target Cells 1+ Ovalocytes 1+ Retic Count PT 12.3 H INR 1.14 H APTT 29.2 D-Dimer, Quantitative 0.75 H Sodium 138 Potassium 5.2 H Chloride 101 Carbon Dioxide 28 Anion Gap 14 BUN 16 Creatinine 0.4 L Est GFR ( Amer) > 60 Est GFR (Non-Af Amer) > 60 Random Glucose 87 Calcium 7.5 L Total Bilirubin 1.6 H AST 130 H ALT 106 H Alkaline Phosphatase 120 Lactate Dehydrogenase 559 Total Creatine Kinase < 20 L Troponin I 0.02 Total Protein 8.9 H Albumin 3.9 Globulin 5.1 Albumin/Globulin Ratio 0.8 L 07/05/16 16:08 WBC RBC Hgb Hct MCV MCH MCHC RDW Plt Count MPV Neutrophils % (Manual) Lymphocytes % (Manual) Atypical Lymphs % Monocytes % (Manual) Eosinophils % (Manual) Nucleated RBC % Large Platelets Polychromasia Hypochromasia Poikilocytosis (manual Anisocytosis (manual) Microcytosis (manual) Macrocytosis (manual) Sickle Cells Target Cells Ovalocytes Retic Count 6.64 H PT INR APTT D-Dimer, Quantitative Sodium Potassium Chloride Carbon Dioxide Anion Gap BUN Creatinine Est GFR ( Amer) Est GFR (Non-Af Amer) Random Glucose Calcium Total Bilirubin AST ALT Alkaline Phosphatase Lactate Dehydrogenase Total Creatine Kinase Troponin I Total Protein Albumin Globulin Albumin/Globulin Ratio Attending/Attestation - Attestation I have personally seen and examined this patient.: Yes I have fully participated in the care of the patient.: Yes I have reviewed all pertinent clinical information: Yes Notes (Text): 07/06/16 04:04 -I agree with the above H&P completed by the resident physician EXCEPT for the following additions and/or corrections: The patient is a 35 year old woman with a history of sickle cell anemia, cerebral palsy, asthma and HTN, who presents with generalized body pain consistent with her previous sickle cell related pain crises. Of note, the patient is being admitted for sickle cell pain crisis (and NOT acute chest syndrome as incorrectly stated in the resident's assessment and plan above). The patient doesn't have any significant respiratory symptoms and no new infiltrates on her chest imaging. She will be treated with aggressive IVF's and pain control with IV Dilaudid. 07/06/16 04:09
[2016-07-06] MEDS ORDERED: Albuterol 0.083% Inhal Sol (2.5 mg/3 mL) UD IH PRN ×2 (02:09→16:32)
[2016-07-06] MEDS: DiphenhydrAMINE 50 mg/ml Inj IVP PRN ×4 (04:21→22:05)
[2016-07-06] MEDS: HYDROmorphone 1 mg/ml ISec IVP PRN ×5 (04:22→22:05)
[2016-07-06 05:15] LABS: MEAN CELL VOLUME 95.2 fL (80.0-105.0); MEAN CORPUSCULAR HEMOGLOBIN 32.9 pg (25.0-35.0); MEAN CORPUSCULAR HGB CONC 34.5 g/dl (31.0-37.0); MEAN PLATELET VOLUME 10.1 fl (7.0-11.0); RED CELL DISTRIBUTION WIDTH 23.7 % (11.5-14.5); WHITE BLOOD COUNT 10.8 10^3/ul (4.5-11.0)
[2016-07-06 05:24] LABS: ALB/GLOB RATIO 0.7 (1.1-1.8); ALKALINE PHOSPHATASE 112 U/L (38-133); ALT/SGPT 106 U/L (7-56); AST/SGOT 130 U/L (15-39); BILIRUBIN,TOTAL 1.5 mg/dL (0.2-1.3); BLOOD UREA NITROGEN 14 mg/dL (7-21); CALCIUM 8.6 mg/dL (8.4-10.5); CARBON DIOXIDE 28 mmol/L (21-33); CHLORIDE 104 mmol/L (98-107); GFR AFRICAN-AMERICAN > 60; GLUCOSE,RANDOM 76 mg/dL (70-110); POTASSIUM 4.6 mmol/L (3.6-5.0); SODIUM 139 mmol/L (132-148); TOTAL PROTEIN 8.4 g/dL (5.8-8.3)
[2016-07-06 05:36] LABS: TROPONIN I 0.02 ng/mL
[2016-07-06] MEDS: Sodium Chloride 0.9% 1,000 ML IV SCH ×5 (05:58→23:00)
[2016-07-06] MEDS: Ammonium Lactate 12% Cream (140 g) TOP SCH (09:10)
[2016-07-06] MEDS: Divalproex 250 mg DR (BID formulation) PO SCH ×2 (09:12→18:01)
--- NOTE | 2016-07-06 09:47 | CARD ---
APPROVED REPORT EKG Measurement Heart [id number] <Conclusion> Normal sinus rhythm Nonspecific T wave abnormality No change
--- NOTE | 2016-07-06 10:11 | CARD ---
APPROVED REPORT EKG Measurement Heart [id number] <Conclusion> Normal sinus rhythm Mild NSSTW changes No change
--- NOTE | 2016-07-06 10:38 | RAD ---
PROCEDURE: CHEST RADIOGRAPH HISTORY: cough COMPARISON: 07/01/2016 FINDINGS: LUNGS: Increased pulmonary vascular congestion. PLEURA: No significant pleural effusion. CARDIOVASCULAR: Enlarged heart. OSSEOUS STRUCTURES: No significant abnormalities. VISUALIZED UPPER ABDOMEN: Upper abdomen is suboptimally evaluated. OTHER FINDINGS: Right-sided medication port with the distal tip of the catheter overlying the projection of the right atrium, as before. IMPRESSION: Increased pulmonary vascular congestion. Other findings as above.
[2016-07-06 16:14] LABS: TROPONIN I 0.02 ng/mL
[2016-07-07] MEDS: HYDROmorphone 1 mg/ml ISec IVP PRN ×6 (02:33→22:50)
[2016-07-07] MEDS: Pantoprazole 40 mg EC Tab PO SCH (05:50)
[2016-07-07] MEDS: Sodium Chloride 0.9% 1,000 ML IV SCH ×3 (05:51→19:53)
[2016-07-07] MEDS: DiphenhydrAMINE 50 mg/ml Inj IVP PRN ×3 (06:30→18:32)
[2016-07-07 08:01] LABS: MEAN CORPUSCULAR HEMOGLOBIN 32.6 pg (25.0-35.0); MEAN CORPUSCULAR HGB CONC 34.3 g/dl (31.0-37.0); MEAN PLATELET VOLUME 10.3 fl (7.0-11.0); RED CELL DISTRIBUTION WIDTH 23.1 % (11.5-14.5); WHITE BLOOD COUNT 10.6 10^3/ul (4.5-11.0)
[2016-07-07 08:06] LABS: ALB/GLOB RATIO 0.7 (1.1-1.8); ALKALINE PHOSPHATASE 109 U/L (38-133); ALT/SGPT 99 U/L (7-56); AST/SGOT 123 U/L (15-39); BILIRUBIN,TOTAL 1.6 mg/dL (0.2-1.3); BLOOD UREA NITROGEN 9 mg/dL (7-21); CALCIUM 8.3 mg/dL (8.4-10.5); CARBON DIOXIDE 27 mmol/L (21-33); CHLORIDE 104 mmol/L (98-107); GFR AFRICAN-AMERICAN > 60; GLUCOSE,RANDOM 79 mg/dL (70-110); POTASSIUM 4.5 mmol/L (3.6-5.0); SODIUM 137 mmol/L (132-148); TOTAL PROTEIN 7.7 g/dL (5.8-8.3)
[2016-07-07 08:26] LABS: RETIC% 7.54 % (0.5-1.5)
[2016-07-07] MEDS: Divalproex 250 mg DR (BID formulation) PO SCH ×2 (09:29→18:31)
[2016-07-07] MEDS: Ammonium Lactate 12% Cream (140 g) TOP SCH (09:29)
--- NOTE | 2016-07-07 11:07 | CP.PCM.PN ---
<Joao Conklin - Last Filed: 07/07/16 15:51> Subjective - Date & Time of Evaluation Date of Evaluation: 07/06/16 Time of Evaluation: 08:00 - Subjective Subjective: 35 y/o F with PMH sickle cell, cerebral palsy, asthma, HTN and bipolar disorder presents to the ED for chest pain x 1 day. Pt states the pain came on suddenly this morning and has had similar pain in the past. She reports the pain is located in the middle of her chest and is nonradiating. Today, pt. has no new complaints and denies headaches, fever, chills SOB, n/v/d, or body aches. Objective - Vital Signs/Intake and Output Vital Signs (last 24 hours): Temp Pulse Resp BP Pulse Ox 98.7 F 81 18 100/70 94 L 07/07/16 06:00 07/07/16 06:00 07/07/16 06:00 07/07/16 06:00 07/07/16 06:00 Intake and Output: 07/07/16 07/07/16 06:59 18:59 Intake Total 1860 Output Total 1300 Balance 560 - Medications Medications: Current Medications Albuterol Sulfate (Albuterol 0.083% Inhal Rika (2.5 Mg/3 Ml) Ud) 2.5 mg IH [id number] PRN PRN Reason: Shortness of Breath Last Admin: 07/06/16 16:37 Dose: 2.5 mg Benzonatate (Tessalon Perles) 100 mg PO TID [facility] Last Admin: 07/07/16 09:29 Dose: 100 mg Diphenhydramine HCl (Benadryl) 25 mg IVP Q6H PRN PRN Reason: Other Last Admin: 07/07/16 06:30 Dose: 25 mg Divalproex Sodium (Depakote Dr (*Bid*)) 250 mg PO BID [facility] PRN Reason: Protocol Last Admin: 07/07/16 09:29 Dose: 250 mg Folic Acid (Folic Acid) 1 mg PO DAILY [facility] Last Admin: 07/07/16 09:29 Dose: 1 mg Hydromorphone HCl (Dilaudid) 1 mg IVP Q4H PRN PRN Reason: Pain, severe (8-10) Last Admin: 07/07/16 10:41 Dose: 1 mg Sodium Chloride (Sodium Chloride 0.9%) 1,000 mls @ 150 mls/hr IV .Q6H40M [facility] Last Admin: 07/07/16 05:51 Dose: 150 mls/hr Lactic Acid (Lac-Hydrin 12% Cream (140 G)) 0 ea TOP DAILY [facility] Last Admin: 07/07/16 09:29 Dose: 1 g Lorazepam (Ativan) 2 mg IVP Q4H PRN; Protocol PRN Reason: Seizure activity Pantoprazole Sodium (Protonix Ec Tab) 40 mg PO 0630 [facility] Last Admin: 07/07/16 05:50 Dose: 40 mg Trazodone HCl (Desyrel) 25 mg PO HS [facility] Last Admin: 07/06/16 22:00 Dose: 25 mg - Labs Labs: 07/07/16 06:30 07/07/16 06:30 PT 12.3 Seconds (9.9-11.8) H 07/05/16 16:08 INR 1.14 (0.93-1.08) H 07/05/16 16:08 APTT 29.2 Seconds (23.7-30.8) 07/05/16 16:08 - Constitutional Appears: Cachectic, Chronically Ill - Head Exam Head Exam: ATRAUMATIC, NORMOCEPHALIC - Eye Exam Eye Exam: EOMI - ENT Exam ENT Exam: Mucous Membranes Moist - Neck Exam Neck Exam: absent: Lymphadenopathy, Thyromegaly - Respiratory Exam Respiratory Exam: Clear to Ausculation Bilateral, NORMAL BREATHING PATTERN. absent: Wheezes - Cardiovascular Exam Cardiovascular Exam: REGULAR RHYTHM, RRR, +S1, +S2. absent: JVD - GI/Abdominal Exam GI & Abdominal Exam: Soft, Normal Bowel Sounds. absent: Tenderness - Extremities Exam Extremities Exam: absent: Joint Swelling, Pedal Edema - Neurological Exam Neurological Exam: Alert, Awake - Psychiatric Exam Psychiatric exam: Flat Affect, Normal Mood - Skin Skin Exam: Dry, Intact, Normal Color, Warm Assessment and Plan - Assessment and Plan (Free Text) Assessment: 35 y/o F with PMH of sickle cell, cerebral palsy, asthma, HTN and bipolar disorder presents with acute chest syndrome secondary to sickle cell crisis. Pt will be admitted to remote telemetry for further management. Pt will be started on IVF and adequate pain control. Plan: 1. Sickle Cell Crisis Continue to monitor CBC and reticulocyte count in AM Hydroxyurea will be held as per last hematology note. Pt has not followed up with hematology. NS@150 Dilaudid 1mg q4 prn Chest CT please see full report -limited by pt. motion, no aneurysm, dissection or PE -asymmetric airspace dz with scarring at the lung bases R>L, no lobar or segmental consolidation. Chest XRAY -Increased pulm vasc filiberto EKG -NSR at 76 -Mild NSSTW changes Troponins "-" x3 Hgb of 7.6 - will not transfuse unless Hgb falls below 7.0 Type & Screen Folic Acid 1mg PO daily 2. Hx of Cerebral Palsy Continue Depakote 250mg PO BID Continue multivitamin and folic acid 3. Hx of Bipolar disorder Continue Trazodone 4. Hx of Asthma Continue albuterol prn Tessalon Pearls 100mg PO TID 5. Insomnia Trazadone 25mg HS PPX Protonix 40mg daily SCDs Benedryll 25mg IV q6 prn Ammonium Lactate topical Seen, reviewed, and discussed with attending <Lyndsey Noble - Last Filed: 07/15/16 14:36> Objective - Vital Signs/Intake and Output Vital Signs (last 24 hours): Temp Pulse Resp BP Pulse Ox 98.9 F 78 20 130/81 97 07/15/16 08:53 07/15/16 08:53 07/15/16 08:53 07/15/16 08:53 07/15/16 08:53 Intake and Output: 07/15/16 07/15/16 06:59 18:59 Intake Total 4800 360 Balance 4800 360 - Medications Medications: Current Medications Albuterol Sulfate (Albuterol 0.083% Inhal Rika (2.5 Mg/3 Ml) Ud) 2.5 mg IH [id number] PRN PRN Reason: Shortness of Breath Last Admin: 07/06/16 16:37 Dose: 2.5 mg Dexamethasone (Decadron) 2 mg PO DAILY [facility] Last Admin: 07/15/16 12:32 Dose: 2 mg Diphenhydramine HCl (Benadryl) 25 mg IVP Q6H PRN PRN Reason: Other Last Admin: 07/15/16 08:42 Dose: 25 mg Divalproex Sodium (Depakote Dr (*Bid*)) 250 mg PO BID [facility] PRN Reason: Protocol Last Admin: 07/15/16 09:11 Dose: 250 mg Folic Acid (Folic Acid) 1 mg PO DAILY [facility] Last Admin: 07/15/16 09:12 Dose: 1 mg Guaifenesin (Robitussin) 100 mg PO Q4H PRN PRN Reason: Cough Hydromorphone HCl (Dilaudid) 0.5 mg IVP Q4H PRN PRN Reason: Pain, severe (8-10) Last Admin: 07/15/16 12:29 Dose: 0.5 mg Sodium Chloride (Sodium Chloride 0.9%) 1,000 mls @ 200 mls/hr IV .Q5H [facility] Last Admin: 07/15/16 05:30 Dose: 200 mls/hr Lactic Acid (Lac-Hydrin 12% Cream (140 G)) 0 ea TOP DAILY [facility] Last Admin: 07/14/16 10:38 Dose: 1 applic Lorazepam (Ativan) 1 mg IVP Q4H PRN; Protocol PRN Reason: Seizure activity Pantoprazole Sodium (Protonix Ec Tab) 40 mg PO 0630 [facility] Last Admin: 07/15/16 05:31 Dose: 40 mg Trazodone HCl (Desyrel) 25 mg PO HS [facility] Last Admin: 07/14/16 21:17 Dose: 25 mg - Labs Labs: 07/15/16 06:30 07/15/16 06:30 PT 12.3 Seconds (9.9-11.8) H 07/05/16 16:08 INR 1.14 (0.93-1.08) H 07/05/16 16:08 APTT 29.2 Seconds (23.7-30.8) 07/05/16 16:08 Attending/Attestation - Attestation I have personally seen and examined this patient.: Yes I have fully participated in the care of the patient.: Yes I have reviewed all pertinent clinical information, including history, physical exam and plan: Yes Notes (Text): Patient seen and examined with the resident. Agree with the above note with the following additions/ exceptions: This is 35 year old female with a past medical history of sickle cell anemia, bipolar disorder, cerebral palsy is admitted with sickle cell crisis. Continue oxygen, IV fluids, IV Dilaudid, folic acid. Patient is crying in pain today. Complains that her appetite is suppressed. Hydrea is on hold secondary to thrombocytopenia. Hematology evaluation pending. Avoid transfusions due to iron overload. Upon discharge the patient will follow-up with PMD . Follow-up with hematology Dr. Palacios for outpatient chelation therapy. Dr Lyndsey Noble
--- NOTE | 2016-07-07 16:28 | CP.PCM.PN ---
<Joao Conklin - Last Filed: 07/07/16 17:26> Subjective - Date & Time of Evaluation Date of Evaluation: 07/07/16 Time of Evaluation: 08:00 - Subjective Subjective: 35 y/o F with PMH sickle cell, cerebral palsy, asthma, HTN and bipolar disorder presents to the ED for chest pain x 1 day. Pt states the pain came on suddenly this morning and has had similar pain in the past. She reports the pain is located in the middle of her chest and is nonradiating. Today, pt. complains of a cough which exacerbates her chest pain. She denies headaches, fever, chills SOB, n/v/d, or body aches. Objective - Vital Signs/Intake and Output Vital Signs (last 24 hours): Temp Pulse Resp BP Pulse Ox 98.7 F 90 18 100/70 94 L 07/07/16 06:00 07/07/16 13:59 07/07/16 06:00 07/07/16 06:00 07/07/16 06:00 Intake and Output: 07/07/16 07/07/16 06:59 18:59 Intake Total 1860 Output Total 1300 Balance 560 - Medications Medications: Current Medications Albuterol Sulfate (Albuterol 0.083% Inhal Rika (2.5 Mg/3 Ml) Ud) 2.5 mg IH [id number] PRN PRN Reason: Shortness of Breath Last Admin: 07/06/16 16:37 Dose: 2.5 mg Benzonatate (Tessalon Perles) 100 mg PO TID [facility] Last Admin: 07/07/16 13:29 Dose: 100 mg Diphenhydramine HCl (Benadryl) 25 mg IVP Q6H PRN PRN Reason: Other Last Admin: 07/07/16 13:28 Dose: 25 mg Divalproex Sodium (Depakote Dr (*Bid*)) 250 mg PO BID [facility] PRN Reason: Protocol Last Admin: 07/07/16 09:29 Dose: 250 mg Folic Acid (Folic Acid) 1 mg PO DAILY [facility] Last Admin: 07/07/16 09:29 Dose: 1 mg Hydromorphone HCl (Dilaudid) 1 mg IVP Q4H PRN PRN Reason: Pain, severe (8-10) Last Admin: 07/07/16 14:33 Dose: 1 mg Sodium Chloride (Sodium Chloride 0.9%) 1,000 mls @ 150 mls/hr IV .Q6H40M [facility] Last Admin: 07/07/16 13:30 Dose: 150 mls/hr Lactic Acid (Lac-Hydrin 12% Cream (140 G)) 0 ea TOP DAILY [facility] Last Admin: 07/07/16 09:29 Dose: 1 g Lorazepam (Ativan) 2 mg IVP Q4H PRN; Protocol PRN Reason: Seizure activity Pantoprazole Sodium (Protonix Ec Tab) 40 mg PO 0630 [facility] Last Admin: 07/07/16 05:50 Dose: 40 mg Trazodone HCl (Desyrel) 25 mg PO HS [facility] Last Admin: 07/06/16 22:00 Dose: 25 mg - Labs Labs: 07/07/16 06:30 07/07/16 06:30 PT 12.3 Seconds (9.9-11.8) H 07/05/16 16:08 INR 1.14 (0.93-1.08) H 07/05/16 16:08 APTT 29.2 Seconds (23.7-30.8) 07/05/16 16:08 - Constitutional Appears: Cachectic, Chronically Ill - Head Exam Head Exam: ATRAUMATIC, NORMOCEPHALIC - Eye Exam Eye Exam: EOMI - ENT Exam ENT Exam: Mucous Membranes Moist - Neck Exam Neck Exam: absent: Lymphadenopathy, Thyromegaly - Respiratory Exam Respiratory Exam: Clear to Ausculation Bilateral, NORMAL BREATHING PATTERN. absent: Wheezes - Cardiovascular Exam Cardiovascular Exam: REGULAR RHYTHM, RRR, +S1, +S2. absent: JVD - GI/Abdominal Exam GI & Abdominal Exam: Soft, Normal Bowel Sounds. absent: Tenderness - Extremities Exam Extremities Exam: absent: Joint Swelling, Pedal Edema - Neurological Exam Neurological Exam: Alert, Awake - Psychiatric Exam Psychiatric exam: Flat Affect, Normal Mood - Skin Skin Exam: Dry, Intact, Normal Color, Warm Assessment and Plan - Assessment and Plan (Free Text) Assessment: 35 y/o F with PMH of sickle cell, cerebral palsy, asthma, HTN and bipolar disorder presents in likely sickle cell crisis. Plan: 1. Sickle Cell Crisis Continue to monitor CBC and reticulocyte count in AM Hydroxyurea will be held as per last hematology note. Pt has not followed up with hematology. NS@150 Dilaudid 1mg q4 prn Chest CT please see full report -limited by pt. motion, no aneurysm, dissection or PE -asymmetric airspace dz with scarring at the lung bases R>L, no lobar or segmental consolidation. Chest XRAY -Increased pulm vasc filiberto EKG -NSR at 76 -Mild NSSTW changes Troponins "-" x3 Hgb of 7.6 - will not transfuse unless Hgb falls below 7.0 Type & Screen Folic Acid 1mg PO daily If retic are >10 and Hgb not stable, continue treatment 2. Hx of Cerebral Palsy Continue Depakote 250mg PO BID Continue multivitamin and folic acid 3. Hx of Bipolar disorder Continue Trazodone 4. Hx of Asthma Continue albuterol prn Tessalon Pearls 100mg PO TID 5. Insomnia Trazadone 25mg HS PPX Protonix 40mg daily SCDs Benedryll 25mg IV q6 prn Ammonium Lactate topical Seen, reviewed, and discussed with attending <Lyndsey Noble - Last Filed: 07/15/16 14:21> Objective - Vital Signs/Intake and Output Vital Signs (last 24 hours): Temp Pulse Resp BP Pulse Ox 98.9 F 78 20 130/81 97 07/15/16 08:53 07/15/16 08:53 07/15/16 08:53 07/15/16 08:53 07/15/16 08:53 Intake and Output: 07/15/16 07/15/16 06:59 18:59 Intake Total 4800 360 Balance 4800 360 - Medications Medications: Current Medications Albuterol Sulfate (Albuterol 0.083% Inhal Rika (2.5 Mg/3 Ml) Ud) 2.5 mg IH [id number] PRN PRN Reason: Shortness of Breath Last Admin: 07/06/16 16:37 Dose: 2.5 mg Dexamethasone (Decadron) 2 mg PO DAILY [facility] Last Admin: 07/15/16 12:32 Dose: 2 mg Diphenhydramine HCl (Benadryl) 25 mg IVP Q6H PRN PRN Reason: Other Last Admin: 07/15/16 08:42 Dose: 25 mg Divalproex Sodium (Depakote Dr (*Bid*)) 250 mg PO BID [facility] PRN Reason: Protocol Last Admin: 07/15/16 09:11 Dose: 250 mg Folic Acid (Folic Acid) 1 mg PO DAILY [facility] Last Admin: 07/15/16 09:12 Dose: 1 mg Guaifenesin (Robitussin) 100 mg PO Q4H PRN PRN Reason: Cough Hydromorphone HCl (Dilaudid) 0.5 mg IVP Q4H PRN PRN Reason: Pain, severe (8-10) Last Admin: 07/15/16 12:29 Dose: 0.5 mg Sodium Chloride (Sodium Chloride 0.9%) 1,000 mls @ 200 mls/hr IV .Q5H [facility] Last Admin: 07/15/16 05:30 Dose: 200 mls/hr Lactic Acid (Lac-Hydrin 12% Cream (140 G)) 0 ea TOP DAILY [facility] Last Admin: 07/14/16 10:38 Dose: 1 applic Lorazepam (Ativan) 1 mg IVP Q4H PRN; Protocol PRN Reason: Seizure activity Pantoprazole Sodium (Protonix Ec Tab) 40 mg PO 0630 [facility] Last Admin: 07/15/16 05:31 Dose: 40 mg Trazodone HCl (Desyrel) 25 mg PO HS [facility] Last Admin: 07/14/16 21:17 Dose: 25 mg - Labs Labs: 07/15/16 06:30 07/15/16 06:30 PT 12.3 Seconds (9.9-11.8) H 07/05/16 16:08 INR 1.14 (0.93-1.08) H 07/05/16 16:08 APTT 29.2 Seconds (23.7-30.8) 07/05/16 16:08 Attending/Attestation - Attestation I have personally seen and examined this patient.: Yes I have fully participated in the care of the patient.: Yes I have reviewed all pertinent clinical information, including history, physical exam and plan: Yes Notes (Text): Patient seen and examined with the resident. Agree with the above note with the following additions/ exceptions: This is 35 year old female with a past medical history of sickle cell anemia, bipolar disorder, cerebral palsy is admitted with sickle cell crisis. Continue oxygen, IV fluids, IV Dilaudid, folic acid. Hydrea is on hold secondary to thrombocytopenia. Hematology evaluation pending. Avoid transfusions due to iron overload. Upon discharge the patient will follow-up with PMD . Follow-up with hematology Dr. Palacios for outpatient chelation therapy. Dr Lyndsey Noble
--- NOTE | 2016-07-08 00:39 | CP.PCM.CON ---
History of Present Illness - History of Present Illness History of Present Illness: 35 year old female with a history of sickle cell anemia and bipolar disorder, admitted with chest pain. She has been admitted more frequently from her baseline. She reports she has been having sharp chest pain. CT angio of the chest was negative for PE. She denies fevers and chills. She has no shortness of breath. Past medical history: Sickle cell disease, bipolar disorder. Past surgical history: portacath removal, cholecystectomy Family history: Both parents have sickle trait. Social history: Denies tobacco, alcohol, and illicit drug use. Allergies: Acetaminophen, aspirin, oxycodone. Review of systems: All remaining ROS including HEENT, cardiovascular, respiratory, gastrointestinal, genitourinary, musculoskeletal, dermatologic, neurologic, and psychiatric are negative unless mentioned in the HPI. Past Patient History - Infectious Disease Hx of Infectious Diseases: None - Tetanus Immunizations Tetanus Immunization: Up to Date - Past Medical History & Family History Past Medical History?: Yes - Past Social History Smoking Status: Former Smoker - CARDIAC Hx Cardiac Disorders: Yes Hx Angina: Yes Hx Hypertension: Yes - PULMONARY Hx Respiratory Disorders: Yes Hx Asthma: Yes Hx Bronchitis: Yes Hx Pneumonia: Yes Hx Respiratory Aspiration: Yes - NEUROLOGICAL Hx Neurological Disorder: No - HEENT Hx HEENT Problems: No - RENAL Hx Chronic Kidney Disease: No - ENDOCRINE/METABOLIC Hx Endocrine Disorders: Yes - HEMATOLOGICAL/ONCOLOGICAL Hx Blood Disorders: Yes Hx Sickle Cell Disease: Yes Other/Comment: sickle cell - INTEGUMENTARY Hx Dermatological Problems: Yes Hx Eczema: Yes - MUSCULOSKELETAL/RHEUMATOLOGICAL Hx Musculoskeletal Disorders: Yes Hx Back Pain: Yes Hx Falls: No Hx Unsteady Gait: Yes - GASTROINTESTINAL Hx Gastrointestinal Disorders: Yes Hx Gastroesophageal Reflux: Yes Hx Pancreatitis: Yes - GENITOURINARY/GYNECOLOGICAL Hx Genitourinary Disorders: Yes Hx Urinary Tract Infection: Yes - PSYCHIATRIC Hx Psychophysiologic Disorder: Yes Hx Anxiety: Yes Hx Bipolar Disorder: Yes - SURGICAL HISTORY Hx Surgeries: Yes Hx Cholecystectomy: Yes Hx Splenectomy: Yes - ANESTHESIA Hx Anesthesia: Yes Hx Anesthesia Reactions: No Hx Malignant Hyperthermia: No Meds Allergies/Adverse Reactions: Allergies Allergy/AdvReac Type Severity Reaction Status Date / Time acetaminophen Allergy RASH Verified 07/01/16 16:16 aspirin Allergy RASH Verified 07/01/16 16:16 coconut oil Allergy RASH Verified 07/01/16 16:16 morphine Allergy SWELLING Verified 07/01/16 16:16 mushroom Allergy URTICARIA Verified 07/01/16 16:16 oxycodone Allergy RASH Verified 07/01/16 16:16 - Medications Medications: Current Medications Albuterol Sulfate (Albuterol 0.083% Inhal Rika (2.5 Mg/3 Ml) Ud) 2.5 mg IH [id number] PRN PRN Reason: Shortness of Breath Last Admin: 07/06/16 16:37 Dose: 2.5 mg Benzonatate (Tessalon Perles) 100 mg PO TID [facility] Last Admin: 07/07/16 18:32 Dose: 100 mg Diphenhydramine HCl (Benadryl) 25 mg IVP Q6H PRN PRN Reason: Other Last Admin: 07/07/16 18:32 Dose: 25 mg Divalproex Sodium (Depakote Dr (*Bid*)) 250 mg PO BID [facility] PRN Reason: Protocol Last Admin: 07/07/16 18:31 Dose: 250 mg Folic Acid (Folic Acid) 1 mg PO DAILY [facility] Last Admin: 07/07/16 09:29 Dose: 1 mg Hydromorphone HCl (Dilaudid) 1 mg IVP Q4H PRN PRN Reason: Pain, severe (8-10) Last Admin: 07/07/16 22:50 Dose: 1 mg Sodium Chloride (Sodium Chloride 0.9%) 1,000 mls @ 150 mls/hr IV .Q6H40M [facility] Last Admin: 07/07/16 19:53 Dose: 150 mls/hr Lactic Acid (Lac-Hydrin 12% Cream (140 G)) 0 ea TOP DAILY [facility] Last Admin: 07/07/16 09:29 Dose: 1 g Lorazepam (Ativan) 2 mg IVP Q4H PRN; Protocol PRN Reason: Seizure activity Pantoprazole Sodium (Protonix Ec Tab) 40 mg PO 0630 [facility] Last Admin: 07/07/16 05:50 Dose: 40 mg Trazodone HCl (Desyrel) 25 mg PO HS [facility] Last Admin: 07/07/16 21:24 Dose: 25 mg Physical Exam - Head Exam Head Exam: ATRAUMATIC - Eye Exam Eye Exam: Normal appearance - ENT Exam ENT Exam: Mucous Membranes Dry - Respiratory Exam Respiratory Exam: NORMAL BREATHING PATTERN - Cardiovascular Exam Cardiovascular Exam: +S1, +S2 - GI/Abdominal Exam GI & Abdominal Exam: Normal Bowel Sounds - Neurological Exam Neurological exam: Oriented x3 - Psychiatric Exam Psychiatric exam: Normal Affect, Normal Mood - Skin Skin Exam: Warm Results - Vital Signs Recent Vital Signs: Last Vital Signs Temp 98.4 F 07/07/16 18:55 Pulse 74 07/07/16 18:55 Resp 19 07/07/16 18:55 BP 107/77 07/07/16 18:55 Pulse Ox 95 07/07/16 18:55 - Labs Result Diagrams: 07/07/16 06:30 07/07/16 06:30 Labs: Laboratory Results - last 24 hr 07/07/16 07/07/16 07/07/16 06:30 06:30 06:30 WBC 10.6 RBC 2.21 L Hgb 7.2 L Hct 21.0 L MCV 95.0 MCH 32.6 MCHC 34.3 RDW 23.1 H Plt Count 133 MPV 10.3 Retic Count Sodium 137 Potassium 4.5 Chloride 104 Carbon Dioxide 27 Anion Gap 11 BUN 9 Creatinine 0.4 L Est GFR ( Amer) > 60 Est GFR (Non-Af Amer) > 60 Random Glucose 79 Calcium 8.3 L Total Bilirubin 1.6 H AST 123 H ALT 99 H Alkaline Phosphatase 109 Total Protein 7.7 Albumin 3.1 Globulin 4.6 Albumin/Globulin Ratio 0.7 L Blood Type B POSITIVE Antibody Screen Negative BBK History Checked Patient has bt 07/07/16 06:30 WBC RBC Hgb Hct MCV MCH MCHC RDW Plt Count MPV Retic Count 7.54 H Sodium Potassium Chloride Carbon Dioxide Anion Gap BUN Creatinine Est GFR ( Amer) Est GFR (Non-Af Amer) Random Glucose Calcium Total Bilirubin AST ALT Alkaline Phosphatase Total Protein Albumin Globulin Albumin/Globulin Ratio Blood Type Antibody Screen BBK History Checked Assessment & Plan (1) Sickle cell pain crisis Assessment and Plan: IV fluids, pain meds, folic acid, 02 via NC Status: Acute (2) Thrombocytopenia Assessment and Plan: mild secondary to hydrea; can be restarted as outpatient Status: Chronic (3) Iron overload due to repeated red blood cell transfusions Assessment and Plan: minimize transfusions outpatient chelation Status: Chronic (4) Sickle cell anemia Assessment and Plan: outpatient folic acid and hydrea Thank you for this interesting consult. Status: Chronic
[2016-07-08] MEDS: HYDROmorphone 1 mg/ml ISec IVP PRN ×4 (02:29→14:58)
[2016-07-08] MEDS: DiphenhydrAMINE 50 mg/ml Inj IVP PRN ×3 (02:30→18:38)
[2016-07-08] MEDS: Sodium Chloride 0.9% 1,000 ML IV SCH ×4 (03:00→18:38)
[2016-07-08] MEDS: Pantoprazole 40 mg EC Tab PO SCH (05:27)
[2016-07-08 07:18] LABS: MEAN CELL VOLUME 94.9 fL (80.0-105.0); MEAN CORPUSCULAR HEMOGLOBIN 33.2 pg (25.0-35.0); MEAN PLATELET VOLUME 10.7 fl (7.0-11.0); RED CELL DISTRIBUTION WIDTH 23.2 % (11.5-14.5); WHITE BLOOD COUNT 10.8 10^3/ul (4.5-11.0)
[2016-07-08 07:51] LABS: ALB/GLOB RATIO 0.7 (1.1-1.8); ALKALINE PHOSPHATASE 106 U/L (38-133); ALT/SGPT 96 U/L (7-56); AST/SGOT 119 U/L (15-39); BILIRUBIN,TOTAL 1.7 mg/dL (0.2-1.3); BLOOD UREA NITROGEN 7 mg/dL (7-21); CALCIUM 8.2 mg/dL (8.4-10.5); CARBON DIOXIDE 26 mmol/L (21-33); CHLORIDE 104 mmol/L (98-107); GFR AFRICAN-AMERICAN > 60; GLUCOSE,RANDOM 92 mg/dL (70-110); POTASSIUM 4.1 mmol/L (3.6-5.0); SODIUM 138 mmol/L (132-148); TOTAL PROTEIN 7.4 g/dL (5.8-8.3)
[2016-07-08 08:04] LABS: HEMATOCRIT 20.3 % (36.0-48.0)
--- NOTE | 2016-07-08 10:32 | CP.PCM.PN ---
<Joao Conklin - Last Filed: 07/08/16 16:08> Subjective - Date & Time of Evaluation Date of Evaluation: 07/08/16 Time of Evaluation: 07:10 - Subjective Subjective: 35 y/o F with PMH sickle cell, cerebral palsy, asthma, HTN and bipolar disorder presents to the ED for chest pain x 1 day. Pt states the pain came on suddenly this morning and has had similar pain in the past. She reports the pain is located in the middle of her chest and is nonradiating. Today, she only complained of mild chest pain and was able to sit up in bed to eat her meal. She denies headaches, fever, chills SOB, n/v/d, or body aches. Objective - Vital Signs/Intake and Output Vital Signs (last 24 hours): Temp Pulse Resp BP Pulse Ox 98.4 F 98 H 18 114/83 95 07/08/16 06:00 07/08/16 06:00 07/08/16 06:00 07/08/16 06:00 07/08/16 06:00 Intake and Output: 07/08/16 07/08/16 06:59 18:59 Intake Total 2220 Output Total 1200 Balance 1020 - Medications Medications: Current Medications Albuterol Sulfate (Albuterol 0.083% Inhal Rika (2.5 Mg/3 Ml) Ud) 2.5 mg IH [id number] PRN PRN Reason: Shortness of Breath Last Admin: 07/06/16 16:37 Dose: 2.5 mg Benzonatate (Tessalon Perles) 100 mg PO TID [facility] Last Admin: 07/07/16 18:32 Dose: 100 mg Diphenhydramine HCl (Benadryl) 25 mg IVP Q6H PRN PRN Reason: Other Last Admin: 07/08/16 02:30 Dose: 25 mg Divalproex Sodium (Depakote Dr (*Bid*)) 250 mg PO BID [facility] PRN Reason: Protocol Last Admin: 07/07/16 18:31 Dose: 250 mg Folic Acid (Folic Acid) 1 mg PO DAILY [facility] Last Admin: 07/07/16 09:29 Dose: 1 mg Hydromorphone HCl (Dilaudid) 1 mg IVP Q4H PRN PRN Reason: Pain, severe (8-10) Last Admin: 07/08/16 06:14 Dose: 1 mg Sodium Chloride (Sodium Chloride 0.9%) 1,000 mls @ 150 mls/hr IV .Q6H40M [facility] Last Admin: 07/08/16 03:00 Dose: 150 mls/hr Lactic Acid (Lac-Hydrin 12% Cream (140 G)) 0 ea TOP DAILY [facility] Last Admin: 07/07/16 09:29 Dose: 1 g Lorazepam (Ativan) 2 mg IVP Q4H PRN; Protocol PRN Reason: Seizure activity Pantoprazole Sodium (Protonix Ec Tab) 40 mg PO 0630 [facility] Last Admin: 07/08/16 05:27 Dose: 40 mg Trazodone HCl (Desyrel) 25 mg PO HS [facility] Last Admin: 07/07/16 21:24 Dose: 25 mg - Labs Labs: 07/08/16 07:00 07/08/16 07:00 PT 12.3 Seconds (9.9-11.8) H 07/05/16 16:08 INR 1.14 (0.93-1.08) H 07/05/16 16:08 APTT 29.2 Seconds (23.7-30.8) 07/05/16 16:08 - Constitutional Appears: Non-toxic, No Acute Distress - Head Exam Head Exam: ATRAUMATIC, NORMOCEPHALIC - Eye Exam Eye Exam: EOMI - ENT Exam ENT Exam: Mucous Membranes Moist - Neck Exam Neck Exam: absent: Lymphadenopathy, Thyromegaly - Respiratory Exam Respiratory Exam: Clear to Ausculation Bilateral, NORMAL BREATHING PATTERN. absent: Wheezes - Cardiovascular Exam Cardiovascular Exam: Tachycardia, REGULAR RHYTHM, +S1, +S2 - GI/Abdominal Exam GI & Abdominal Exam: Soft, Normal Bowel Sounds. absent: Tenderness - Extremities Exam Extremities Exam: absent: Joint Swelling, Tenderness - Neurological Exam Neurological Exam: Alert, Awake, Oriented x3 - Psychiatric Exam Psychiatric exam: Flat Affect, Normal Mood - Skin Skin Exam: Dry, Intact, Normal Color, Warm Assessment and Plan - Assessment and Plan (Free Text) Assessment: 35 y/o F with PMH of sickle cell, cerebral palsy, asthma, HTN and bipolar disorder presents in likely sickle cell crisis. Plan: 1. Sickle Cell Crisis Continue to monitor CBC and reticulocyte count in AM Hydroxyurea will be held as per last hematology note. Pt has not followed up with hematology. NS@150 Dilaudid 1mg q4 prn Chest CT please see full report -limited by pt. motion, no aneurysm, dissection or PE -asymmetric airspace dz with scarring at the lung bases R>L, no lobar or segmental consolidation. Chest XRAY -Increased pulm vasc filiberto EKG -NSR at 76 -Mild NSSTW changes Troponins "-" x3 Hgb of 7.1 on 07/08 - will not transfuse unless Hgb falls below 7.0 Type & Screen Folic Acid 1mg PO daily Retic on 07/08 9.76 will continue treatment 2. Hx of Cerebral Palsy Continue Depakote 250mg PO BID Continue multivitamin and folic acid 3. Hx of Bipolar disorder Continue Trazodone 4. Hx of Asthma Continue albuterol prn Tessalon Pearls 100mg PO TID 5. Insomnia Trazadone 25mg HS PPX Protonix 40mg daily SCDs Benedryll 25mg IV q6 prn Ammonium Lactate topical Seen, reviewed, and discussed with attending <Jemma Pritchett - Last Filed: 07/08/16 17:21> Objective - Vital Signs/Intake and Output Vital Signs (last 24 hours): Temp Pulse Resp BP Pulse Ox 98.4 F 98 H 18 114/83 95 07/08/16 06:00 07/08/16 06:00 07/08/16 06:00 07/08/16 06:00 07/08/16 06:00 Intake and Output: 07/08/16 07/08/16 06:59 18:59 Intake Total 2220 720 Output Total 1200 1000 Balance 1020 -280 - Medications Medications: Current Medications Albuterol Sulfate (Albuterol 0.083% Inhal Rika (2.5 Mg/3 Ml) Ud) 2.5 mg IH [id number] PRN PRN Reason: Shortness of Breath Last Admin: 07/06/16 16:37 Dose: 2.5 mg Benzonatate (Tessalon Perles) 100 mg PO TID [facility] Last Admin: 07/08/16 14:57 Dose: Not Given Diphenhydramine HCl (Benadryl) 25 mg IVP Q6H PRN PRN Reason: Other Last Admin: 07/08/16 10:48 Dose: 25 mg Divalproex Sodium (Depakote Dr (*Bid*)) 250 mg PO BID [facility] PRN Reason: Protocol Last Admin: 07/08/16 10:48 Dose: 250 mg Folic Acid (Folic Acid) 1 mg PO DAILY [facility] Last Admin: 07/08/16 10:48 Dose: 1 mg Hydromorphone HCl (Dilaudid) 0.5 mg IVP Q4H PRN PRN Reason: Pain, severe (8-10) Sodium Chloride (Sodium Chloride 0.9%) 1,000 mls @ 150 mls/hr IV .Q6H40M [facility] Last Admin: 07/08/16 17:07 Dose: 150 mls/hr Lactic Acid (Lac-Hydrin 12% Cream (140 G)) 0 ea TOP DAILY [facility] Last Admin: 07/08/16 10:50 Dose: 1 applic Lorazepam (Ativan) 2 mg IVP Q4H PRN; Protocol PRN Reason: Seizure activity Pantoprazole Sodium (Protonix Ec Tab) 40 mg PO 0630 [facility] Last Admin: 07/08/16 05:27 Dose: 40 mg Trazodone HCl (Desyrel) 25 mg PO HS [facility] Last Admin: 07/07/16 21:24 Dose: 25 mg - Labs Labs: 07/08/16 07:00 07/08/16 07:00 PT 12.3 Seconds (9.9-11.8) H 07/05/16 16:08 INR 1.14 (0.93-1.08) H 07/05/16 16:08 APTT 29.2 Seconds (23.7-30.8) 07/05/16 16:08 Attending/Attestation - Attestation I have personally seen and examined this patient.: Yes I have fully participated in the care of the patient.: Yes I have reviewed all pertinent clinical information, including history, physical exam and plan: Yes Notes (Text): 07/08/16 17:18 Attending note; Patient seen and examined with the resident. Patient is a 35-year-old female with a past medical history of sickle cell anemia, bipolar disorder, cerebral palsy is admitted with sickle cell crisis. Continue oxygen, IV fluids, IV Dilaudid, folic acid. Hydrea is on hold secondary to thrombocytopenia. Hematology evaluation with Dr. Palacios appreciated. Avoid transfusions due to iron overload. Upon discharge the patient will follow-up with PMD . Follow-up with hematology Dr. Palacios for outpatient chelation therapy.
[2016-07-08] MEDS: Divalproex 250 mg DR (BID formulation) PO SCH ×2 (10:48→18:38)
[2016-07-08] MEDS: Ammonium Lactate 12% Cream (140 g) TOP SCH (10:50)
[2016-07-08 11:41] LABS: RETIC% 9.76 % (0.5-1.5)
[2016-07-08] MEDS: HYDROmorphone 0.5 mg/0.5 ml ISec IVP PRN ×2 (18:38→22:19)
[2016-07-09] MEDS: HYDROmorphone 0.5 mg/0.5 ml ISec IVP PRN ×5 (02:25→23:38)
[2016-07-09] MEDS: DiphenhydrAMINE 50 mg/ml Inj IVP PRN ×3 (02:25→19:31)
[2016-07-09] MEDS: Pantoprazole 40 mg EC Tab PO SCH (05:54)
[2016-07-09 06:20] LABS: MEAN CELL VOLUME 94.1 fL (80.0-105.0); MEAN CORPUSCULAR HEMOGLOBIN 33.2 pg (25.0-35.0); MEAN CORPUSCULAR HGB CONC 35.3 g/dl (31.0-37.0); MEAN PLATELET VOLUME 10.3 fl (7.0-11.0); PLATELET COUNT 136 10^3/uL (120.0-450.0); RED CELL DISTRIBUTION WIDTH 24.1 % (11.5-14.5); WHITE BLOOD COUNT 12.1 10^3/ul (4.5-11.0)
[2016-07-09 06:37] LABS: ALB/GLOB RATIO 0.7 (1.1-1.8); ALKALINE PHOSPHATASE 112 U/L (38-133); ALT/SGPT 97 U/L (7-56); AST/SGOT 120 U/L (15-39); BILIRUBIN,TOTAL 1.6 mg/dL (0.2-1.3); BLOOD UREA NITROGEN 5 mg/dL (7-21); CALCIUM 8.6 mg/dL (8.4-10.5); CARBON DIOXIDE 29 mmol/L (21-33); CHLORIDE 104 mmol/L (95-110); GFR AFRICAN-AMERICAN > 60; GLUCOSE,RANDOM 87 mg/dL (70-110); POTASSIUM 4.1 mmol/L (3.6-5.0); SODIUM 139 mmol/L (132-148); TOTAL PROTEIN 7.5 g/dL (5.8-8.3)
[2016-07-09 06:42] LABS: HEMATOCRIT 20.7 % (36.0-48.0); RETIC% 14.02 % (0.5-1.5)
[2016-07-09 07:02] LABS: ADD MANUAL DIFF? YES
[2016-07-09 07:04] LABS: BAND 1 % (0-2); CORRECTED WBC 11.5 K/mm3 (4.5-11.0); EOSINOPHIL 2 % (0.0-3.0); MYELOCYTE 4 %; NEUTROPHIL 48 % (50.0-70.0); NUCLEATED RED BLOOD CELL 5 %; PLATELET ESTIMATE NORMAL (NORMAL)
[2016-07-09 07:05] LABS: ANISOCYTOSIS 2+; POIKILOCYTOSIS 2+; TARGET CELLS 3+
[2016-07-09 07:06] LABS: POLYCHROMASIA 1+
[2016-07-09] MEDS: Divalproex 250 mg DR (BID formulation) PO SCH ×2 (10:25→17:28)
[2016-07-09] MEDS: Ammonium Lactate 12% Cream (140 g) TOP SCH (10:45)
--- NOTE | 2016-07-09 12:40 | CP.PCM.PN ---
<Joao Conklin - Last Filed: 07/09/16 17:03> Subjective - Date & Time of Evaluation Date of Evaluation: 07/09/16 Time of Evaluation: 08:00 - Subjective Subjective: 35 y/o F with PMH sickle cell, cerebral palsy, asthma, HTN and bipolar disorder presents to the ED for chest pain x 1 day. Pt stated the pain came on suddenly that morning and has had similar pain in the past. She reported the pain is located in the middle of her chest and is nonradiating. Today, she complained of the same chest pain. She appeared tired and would only respond to yes/no questions. She denies headaches, fever, chills SOB, n/v/d, or body aches. Objective - Vital Signs/Intake and Output Vital Signs (last 24 hours): Temp Pulse Resp BP Pulse Ox 98.7 F 85 16 111/75 97 07/09/16 06:00 07/09/16 06:00 07/09/16 06:00 07/09/16 06:00 07/09/16 06:00 Intake and Output: 07/09/16 07/09/16 06:59 18:59 Intake Total 120 Output Total 900 Balance -780 - Medications Medications: Current Medications Albuterol Sulfate (Albuterol 0.083% Inhal Rika (2.5 Mg/3 Ml) Ud) 2.5 mg IH [id number] PRN PRN Reason: Shortness of Breath Last Admin: 07/06/16 16:37 Dose: 2.5 mg Benzonatate (Tessalon Perles) 100 mg PO TID [facility] Last Admin: 07/09/16 10:25 Dose: 100 mg Diphenhydramine HCl (Benadryl) 25 mg IVP Q6H PRN PRN Reason: Other Last Admin: 07/09/16 10:25 Dose: 25 mg Divalproex Sodium (Depakote Dr (*Bid*)) 250 mg PO BID [facility] PRN Reason: Protocol Last Admin: 07/09/16 10:25 Dose: 250 mg Folic Acid (Folic Acid) 1 mg PO DAILY [facility] Last Admin: 07/09/16 10:25 Dose: 1 mg Hydromorphone HCl (Dilaudid) 0.5 mg IVP Q4H PRN PRN Reason: Pain, severe (8-10) Last Admin: 07/09/16 10:25 Dose: 0.5 mg Sodium Chloride (Sodium Chloride 0.9%) 1,000 mls @ 150 mls/hr IV .Q6H40M [facility] Last Admin: 07/08/16 18:38 Dose: 150 mls/hr Lactic Acid (Lac-Hydrin 12% Cream (140 G)) 0 ea TOP DAILY [facility] Last Admin: 07/09/16 10:45 Dose: 1 applic Lorazepam (Ativan) 2 mg IVP Q4H PRN; Protocol PRN Reason: Seizure activity Pantoprazole Sodium (Protonix Ec Tab) 40 mg PO 0630 [facility] Last Admin: 07/09/16 05:54 Dose: 40 mg Trazodone HCl (Desyrel) 25 mg PO HS [facility] Last Admin: 07/08/16 21:20 Dose: 25 mg - Labs Labs: 07/09/16 06:00 07/09/16 06:00 PT 12.3 Seconds (9.9-11.8) H 07/05/16 16:08 INR 1.14 (0.93-1.08) H 07/05/16 16:08 APTT 29.2 Seconds (23.7-30.8) 07/05/16 16:08 - Constitutional Appears: Non-toxic, No Acute Distress - Head Exam Head Exam: ATRAUMATIC, NORMOCEPHALIC - Eye Exam Eye Exam: EOMI - ENT Exam ENT Exam: Mucous Membranes Moist - Neck Exam Neck Exam: absent: Lymphadenopathy, Thyromegaly - Respiratory Exam Respiratory Exam: Clear to Ausculation Bilateral, NORMAL BREATHING PATTERN. absent: Wheezes - Cardiovascular Exam Cardiovascular Exam: Tachycardia, REGULAR RHYTHM, +S1, +S2 - GI/Abdominal Exam GI & Abdominal Exam: Soft, Normal Bowel Sounds. absent: Tenderness - Extremities Exam Extremities Exam: absent: Joint Swelling, Tenderness - Neurological Exam Neurological Exam: Alert, Awake, Oriented x3 - Psychiatric Exam Psychiatric exam: Flat Affect, Normal Mood - Skin Skin Exam: Dry, Intact, Normal Color, Warm Assessment and Plan - Assessment and Plan (Free Text) Assessment: 35 y/o F with PMH of sickle cell, cerebral palsy, asthma, HTN and bipolar disorder presents in likely sickle cell crisis. Her reticulocyte count has been increasing. Plan: 1. Sickle Cell Crisis Continue to monitor CBC and reticulocyte count in AM -Hgb is stable above 7 and reticulocytes are trending up. Hydroxyurea will be held as per last hematology note. Pt has not followed up with hematology. NS@150 Dilaudid 1mg q4 prn Chest CT please see full report -limited by pt. motion, no aneurysm, dissection or PE -asymmetric airspace dz with scarring at the lung bases R>L, no lobar or segmental consolidation. Chest XRAY -Increased pulm vasc filiberto EKG -NSR at 76 -Mild NSSTW changes Troponins "-" x3 Hgb of 7.1 on 07/08 - will not transfuse unless Hgb falls below 7.0 Hgb of 7.3 on 07/09 Type & Screen Folic Acid 1mg PO daily Retic on 07/08 9.76 Retic on 07/09 14.02 will continue treatment 2. Hx of Cerebral Palsy Continue Depakote 250mg PO BID Continue multivitamin and folic acid 3. Hx of Bipolar disorder Continue Trazodone 4. Hx of Asthma Continue albuterol prn Tessalon Pearls 100mg PO TID 5. Insomnia Trazadone 25mg HS PPX Protonix 40mg daily SCDs Benedryll 25mg IV q6 prn Ammonium Lactate topical Seen, reviewed, and discussed with attending <Jemma Pritchett - Last Filed: 07/10/16 16:59> Objective - Vital Signs/Intake and Output Vital Signs (last 24 hours): Temp Pulse Resp BP Pulse Ox 98.6 F 81 20 129/85 97 07/10/16 10:07 07/10/16 10:07 07/10/16 10:07 07/10/16 10:07 07/09/16 16:00 Intake and Output: 07/10/16 07/10/16 06:59 18:59 Intake Total 360 540 Output Total 600 1800 Balance -240 -1260 - Medications Medications: Current Medications Albuterol Sulfate (Albuterol 0.083% Inhal Rika (2.5 Mg/3 Ml) Ud) 2.5 mg IH [id number] PRN PRN Reason: Shortness of Breath Last Admin: 07/06/16 16:37 Dose: 2.5 mg Benzonatate (Tessalon Perles) 100 mg PO TID [facility] Last Admin: 07/10/16 14:54 Dose: 100 mg Diphenhydramine HCl (Benadryl) 25 mg IVP Q6H PRN PRN Reason: Other Last Admin: 07/10/16 14:48 Dose: 25 mg Divalproex Sodium (Depakote Dr (*Bid*)) 250 mg PO BID [facility] PRN Reason: Protocol Last Admin: 07/10/16 10:23 Dose: 250 mg Folic Acid (Folic Acid) 1 mg PO DAILY [facility] Last Admin: 07/10/16 10:24 Dose: 1 mg Hydromorphone HCl (Dilaudid) 0.5 mg IVP Q4H PRN PRN Reason: Pain, severe (8-10) Last Admin: 07/10/16 14:48 Dose: 0.5 mg Sodium Chloride (Sodium Chloride 0.9%) 1,000 mls @ 200 mls/hr IV .Q5H [facility] Last Admin: 07/10/16 15:32 Dose: 200 mls/hr Lactic Acid (Lac-Hydrin 12% Cream (140 G)) 0 ea TOP DAILY [facility] Last Admin: 07/10/16 10:30 Dose: 1 applic Lorazepam (Ativan) 2 mg IVP Q4H PRN; Protocol PRN Reason: Seizure activity Pantoprazole Sodium (Protonix Ec Tab) 40 mg PO 0630 [facility] Last Admin: 07/10/16 05:31 Dose: 40 mg Trazodone HCl (Desyrel) 25 mg PO HS [facility] Last Admin: 07/09/16 21:27 Dose: 25 mg - Labs Labs: 07/10/16 05:30 07/10/16 05:30 PT 12.3 Seconds (9.9-11.8) H 07/05/16 16:08 INR 1.14 (0.93-1.08) H 07/05/16 16:08 APTT 29.2 Seconds (23.7-30.8) 07/05/16 16:08 Attending/Attestation - Attestation I have personally seen and examined this patient.: Yes I have fully participated in the care of the patient.: Yes I have reviewed all pertinent clinical information, including history, physical exam and plan: Yes Notes (Text): 07/10/16 16:58 Attending note; Patient seen and examined with the resident. Patient is a 35-year-old female with a past medical history of sickle cell anemia, bipolar disorder, cerebral palsy is admitted with sickle cell crisis. Continue oxygen, IV fluids, IV Dilaudid, folic acid. Hydrea is on hold secondary to thrombocytopenia. Hematology evaluation with Dr. Palacios appreciated. reticulocyte count is 17 today. IV fluids increased. Avoid transfusions due to iron overload. Upon discharge the patient will follow-up with PMD . Follow-up with hematology Dr. Palacios for outpatient chelation therapy.
[2016-07-09] MEDS: Sodium Chloride 0.9% 1,000 ML IV SCH (13:02)
[2016-07-10] MEDS: DiphenhydrAMINE 50 mg/ml Inj IVP PRN ×3 (05:30→23:17)
[2016-07-10] MEDS: Pantoprazole 40 mg EC Tab PO SCH (05:31)
[2016-07-10] MEDS: Sodium Chloride 0.9% 1,000 ML IV SCH ×5 (05:31→20:22)
[2016-07-10] MEDS: HYDROmorphone 0.5 mg/0.5 ml ISec IVP PRN ×5 (05:31→23:12)
[2016-07-10 06:34] LABS: ADD MANUAL DIFF? NO
[2016-07-10 07:07] LABS: ALB/GLOB RATIO 0.7 (1.1-1.8); ALKALINE PHOSPHATASE 114 U/L (38-133); ALT/SGPT 87 U/L (7-56); AST/SGOT 109 U/L (15-39); BILIRUBIN,TOTAL 1.7 mg/dL (0.2-1.3); BLOOD UREA NITROGEN 5 mg/dL (7-21); CALCIUM 8.5 mg/dL (8.4-10.5); CARBON DIOXIDE 28 mmol/L (21-33); CHLORIDE 105 mmol/L (98-107); GFR AFRICAN-AMERICAN > 60; GLUCOSE,RANDOM 86 mg/dL (70-110); POTASSIUM 3.8 mmol/L (3.6-5.0); SODIUM 141 mmol/L (132-148); TOTAL PROTEIN 7.6 g/dL (5.8-8.3)
[2016-07-10 07:33] LABS: MEAN CELL VOLUME 94.8 fL (80.0-105.0); MEAN CORPUSCULAR HEMOGLOBIN 32.3 pg (25.0-35.0); MEAN CORPUSCULAR HGB CONC 34.1 g/dl (31.0-37.0); PLATELET COUNT 137 10^3/uL (120.0-450.0); RED CELL DISTRIBUTION WIDTH 25.3 % (11.5-14.5)
[2016-07-10 07:36] LABS: RETIC% 17.05 % (0.5-1.5)
[2016-07-10 08:22] LABS: HEMATOCRIT 21.7 % (36.0-48.0)
[2016-07-10 08:27] LABS: BASO # 0.08 K/mm3 (0.0-2.0); BASO % 0.6 % (0.0-3.0); EOS # 0.4 (0.0-0.7); EOS % 2.8 % (1.5-5.0); GRAN # 6.37 (1.4-6.5); GRAN % 50.5 % (50.0-68.0); LYMPH # 4.6 (1.2-3.4); LYMPH % 36.4 % (22.0-35.0); MONO # 1.2 (0.1-0.6); MONO % 9.7 % (1.0-6.0)
--- NOTE | 2016-07-10 09:54 | CP.PCM.PN ---
<Joao Conklin - Last Filed: 07/10/16 17:07> Subjective - Date & Time of Evaluation Date of Evaluation: 07/10/16 Time of Evaluation: 07:00 - Subjective Subjective: 35 y/o F with PMH sickle cell, cerebral palsy, asthma, HTN and bipolar disorder presented to the ED for chest pain x 1 day. There were no acute events overnight. Today, she complained of chest pain that was not better or worse since admission. She appeared tired and would only respond to yes/no questions again. Her reticulocyte count was up at 17. She was again encouraged to eat. She denies headaches, fever, chills SOB, n/v/d, or body aches. Objective - Vital Signs/Intake and Output Vital Signs (last 24 hours): Temp Pulse Resp BP Pulse Ox 98.7 F 95 H 19 121/84 97 07/09/16 16:00 07/09/16 18:00 07/09/16 16:00 07/09/16 16:00 07/09/16 16:00 Intake and Output: 07/10/16 07/10/16 06:59 18:59 Intake Total 360 0 Output Total 600 700 Balance -240 -700 - Medications Medications: Current Medications Albuterol Sulfate (Albuterol 0.083% Inhal Rika (2.5 Mg/3 Ml) Ud) 2.5 mg IH [id number] PRN PRN Reason: Shortness of Breath Last Admin: 07/06/16 16:37 Dose: 2.5 mg Benzonatate (Tessalon Perles) 100 mg PO TID [facility] Last Admin: 07/09/16 17:27 Dose: 100 mg Diphenhydramine HCl (Benadryl) 25 mg IVP Q6H PRN PRN Reason: Other Last Admin: 07/10/16 05:30 Dose: 25 mg Divalproex Sodium (Depakote Dr (*Bid*)) 250 mg PO BID [facility] PRN Reason: Protocol Last Admin: 07/09/16 17:28 Dose: 250 mg Folic Acid (Folic Acid) 1 mg PO DAILY [facility] Last Admin: 07/09/16 10:25 Dose: 1 mg Hydromorphone HCl (Dilaudid) 0.5 mg IVP Q4H PRN PRN Reason: Pain, severe (8-10) Last Admin: 07/10/16 05:31 Dose: 0.5 mg Sodium Chloride (Sodium Chloride 0.9%) 1,000 mls @ 150 mls/hr IV .Q6H40M [facility] Last Admin: 07/10/16 05:31 Dose: 150 mls/hr Lactic Acid (Lac-Hydrin 12% Cream (140 G)) 0 ea TOP DAILY [facility] Last Admin: 07/09/16 10:45 Dose: 1 applic Lorazepam (Ativan) 2 mg IVP Q4H PRN; Protocol PRN Reason: Seizure activity Pantoprazole Sodium (Protonix Ec Tab) 40 mg PO 0630 [facility] Last Admin: 07/10/16 05:31 Dose: 40 mg Trazodone HCl (Desyrel) 25 mg PO HS [facility] Last Admin: 07/09/16 21:27 Dose: 25 mg - Labs Labs: 07/10/16 05:30 07/10/16 05:30 PT 12.3 Seconds (9.9-11.8) H 07/05/16 16:08 INR 1.14 (0.93-1.08) H 07/05/16 16:08 APTT 29.2 Seconds (23.7-30.8) 07/05/16 16:08 - Constitutional Appears: Non-toxic, No Acute Distress - Head Exam Head Exam: ATRAUMATIC, NORMOCEPHALIC - Eye Exam Eye Exam: EOMI - ENT Exam ENT Exam: Mucous Membranes Moist - Neck Exam Neck Exam: absent: Lymphadenopathy, Thyromegaly - Respiratory Exam Respiratory Exam: Clear to Ausculation Bilateral, NORMAL BREATHING PATTERN. absent: Wheezes - Cardiovascular Exam Cardiovascular Exam: Tachycardia, REGULAR RHYTHM, +S1, +S2 - GI/Abdominal Exam GI & Abdominal Exam: Soft, Normal Bowel Sounds. absent: Tenderness - Extremities Exam Extremities Exam: absent: Joint Swelling, Tenderness - Neurological Exam Neurological Exam: Alert, Awake, Oriented x3 - Psychiatric Exam Psychiatric exam: Flat Affect, Normal Mood - Skin Skin Exam: Dry, Intact, Normal Color, Warm Assessment and Plan - Assessment and Plan (Free Text) Assessment: 35 y/o F with PMH of sickle cell, cerebral palsy, asthma, HTN and bipolar disorder presents in likely sickle cell crisis. Her reticulocyte count has been increasing since admission. Plan: 1. Sickle Cell Crisis Continue to monitor CBC and reticulocyte count in AM -Hgb is stable above 7 and reticulocytes are trending up. Hydroxyurea will be held as per last hematology note. Pt has not followed up with hematology. increase NS to 200ml/hr Dilaudid 1mg q4 prn Continue multivitamin and folic acid Chest CT please see full report -limited by pt. motion, no aneurysm, dissection or PE -asymmetric airspace dz with scarring at the lung bases R>L, no lobar or segmental consolidation. Chest XRAY -Increased pulm vasc filiberto EKG -NSR at 76 -Mild NSSTW changes Troponins "-" x3 Hgb of 7.1 on 07/08 - will not transfuse unless Hgb falls below 7.0 Hgb of 7.3 on 07/09, 7.4 on 07/10 Type & Screen Folic Acid 1mg PO daily Retic on 07/08 9.76 Retic on 07/09 14.02 Retic on 07/10 17.05 will continue treatment 2. Hx of Cerebral Palsy 3. Hx of Bipolar disorder Continue Depakote 250mg PO BID Continue Trazodone 4. Hx of Asthma Continue albuterol prn Tessalon Pearls 100mg PO TID 5. Insomnia Trazadone 25mg HS PPX Protonix 40mg daily SCDs Benedryll 25mg IV q6 prn Ammonium Lactate topical Seen, reviewed, and discussed with attending <Jemma Pritchett - Last Filed: 07/10/16 17:30> Objective - Vital Signs/Intake and Output Vital Signs (last 24 hours): Temp Pulse Resp BP Pulse Ox 98.6 F 81 20 129/85 97 07/10/16 10:07 07/10/16 10:07 07/10/16 10:07 07/10/16 10:07 07/09/16 16:00 Intake and Output: 07/10/16 07/10/16 06:59 18:59 Intake Total 360 540 Output Total 600 1800 Balance -240 -1260 - Medications Medications: Current Medications Albuterol Sulfate (Albuterol 0.083% Inhal Rika (2.5 Mg/3 Ml) Ud) 2.5 mg IH [id number] PRN PRN Reason: Shortness of Breath Last Admin: 07/06/16 16:37 Dose: 2.5 mg Benzonatate (Tessalon Perles) 100 mg PO TID [facility] Last Admin: 07/10/16 17:18 Dose: 100 mg Diphenhydramine HCl (Benadryl) 25 mg IVP Q6H PRN PRN Reason: Other Last Admin: 07/10/16 14:48 Dose: 25 mg Divalproex Sodium (Depakote Dr (*Bid*)) 250 mg PO BID [facility] PRN Reason: Protocol Last Admin: 07/10/16 17:18 Dose: 250 mg Folic Acid (Folic Acid) 1 mg PO DAILY [facility] Last Admin: 07/10/16 10:24 Dose: 1 mg Hydromorphone HCl (Dilaudid) 0.5 mg IVP Q4H PRN PRN Reason: Pain, severe (8-10) Last Admin: 07/10/16 14:48 Dose: 0.5 mg Sodium Chloride (Sodium Chloride 0.9%) 1,000 mls @ 200 mls/hr IV .Q5H [facility] Last Admin: 07/10/16 15:32 Dose: 200 mls/hr Lactic Acid (Lac-Hydrin 12% Cream (140 G)) 0 ea TOP DAILY [facility] Last Admin: 07/10/16 10:30 Dose: 1 applic Lorazepam (Ativan) 1 mg IVP Q4H PRN; Protocol PRN Reason: Seizure activity Pantoprazole Sodium (Protonix Ec Tab) 40 mg PO 0630 [facility] Last Admin: 07/10/16 05:31 Dose: 40 mg Trazodone HCl (Desyrel) 25 mg PO HS [facility] Last Admin: 07/09/16 21:27 Dose: 25 mg - Labs Labs: 07/10/16 05:30 07/10/16 05:30 PT 12.3 Seconds (9.9-11.8) H 07/05/16 16:08 INR 1.14 (0.93-1.08) H 07/05/16 16:08 APTT 29.2 Seconds (23.7-30.8) 07/05/16 16:08 Attending/Attestation - Attestation I have personally seen and examined this patient.: Yes I have fully participated in the care of the patient.: Yes I have reviewed all pertinent clinical information, including history, physical exam and plan: Yes Notes (Text): 07/10/16 17:30 Attending note; Patient seen and examined with the resident. Patient is a 35-year-old female with a past medical history of sickle cell anemia, bipolar disorder, cerebral palsy is admitted with sickle cell crisis. Continue oxygen, IV fluids, IV Dilaudid, folic acid. Hydrea is on hold secondary to thrombocytopenia. Hematology evaluation with Dr. Palacios appreciated. reticulocyte count is 17. IV fluid increased. Monitor closely. Avoid transfusions due to iron overload. Upon discharge the patient will follow-up with PMD . Follow-up with hematology Dr. Palacios for outpatient chelation therapy.
[2016-07-10] MEDS: Divalproex 250 mg DR (BID formulation) PO SCH ×2 (10:23→17:18)
[2016-07-10] MEDS: Ammonium Lactate 12% Cream (140 g) TOP SCH (10:30)
--- NOTE | 2016-07-10 19:17 | CP.PCM.PN ---
Subjective - Date & Time of Evaluation Date of Evaluation: 07/10/16 Time of Evaluation: 19:00 - Subjective Subjective: Has chest pain Objective - Vital Signs/Intake and Output Vital Signs (last 24 hours): Temp Pulse Resp BP Pulse Ox 98.6 F 82 20 129/85 97 07/10/16 10:07 07/10/16 18:00 07/10/16 10:07 07/10/16 10:07 07/09/16 16:00 Intake and Output: 07/10/16 07/11/16 18:59 06:59 Intake Total 540 Output Total 1800 Balance -1260 - Medications Medications: Current Medications Albuterol Sulfate (Albuterol 0.083% Inhal Rika (2.5 Mg/3 Ml) Ud) 2.5 mg IH [id number] PRN PRN Reason: Shortness of Breath Last Admin: 07/06/16 16:37 Dose: 2.5 mg Benzonatate (Tessalon Perles) 100 mg PO TID [facility] Last Admin: 07/10/16 17:18 Dose: 100 mg Diphenhydramine HCl (Benadryl) 25 mg IVP Q6H PRN PRN Reason: Other Last Admin: 07/10/16 14:48 Dose: 25 mg Divalproex Sodium (Depakote Dr (*Bid*)) 250 mg PO BID [facility] PRN Reason: Protocol Last Admin: 07/10/16 17:18 Dose: 250 mg Folic Acid (Folic Acid) 1 mg PO DAILY [facility] Last Admin: 07/10/16 10:24 Dose: 1 mg Hydromorphone HCl (Dilaudid) 0.5 mg IVP Q4H PRN PRN Reason: Pain, severe (8-10) Last Admin: 07/10/16 14:48 Dose: 0.5 mg Sodium Chloride (Sodium Chloride 0.9%) 1,000 mls @ 200 mls/hr IV .Q5H [facility] Last Admin: 07/10/16 15:32 Dose: 200 mls/hr Lactic Acid (Lac-Hydrin 12% Cream (140 G)) 0 ea TOP DAILY [facility] Last Admin: 07/10/16 10:30 Dose: 1 applic Lorazepam (Ativan) 1 mg IVP Q4H PRN; Protocol PRN Reason: Seizure activity Pantoprazole Sodium (Protonix Ec Tab) 40 mg PO 0630 [facility] Last Admin: 07/10/16 05:31 Dose: 40 mg Trazodone HCl (Desyrel) 25 mg PO HS [facility] Last Admin: 07/09/16 21:27 Dose: 25 mg - Labs Labs: 07/10/16 05:30 07/10/16 05:30 PT 12.3 Seconds (9.9-11.8) H 07/05/16 16:08 INR 1.14 (0.93-1.08) H 07/05/16 16:08 APTT 29.2 Seconds (23.7-30.8) 07/05/16 16:08 - Head Exam Head Exam: ATRAUMATIC - Eye Exam Eye Exam: Normal appearance - ENT Exam ENT Exam: Mucous Membranes Dry - Respiratory Exam Respiratory Exam: NORMAL BREATHING PATTERN - Cardiovascular Exam Cardiovascular Exam: +S1, +S2 - GI/Abdominal Exam GI & Abdominal Exam: Normal Bowel Sounds Assessment and Plan (1) Sickle cell pain crisis Assessment & Plan: IV fluids, pain meds, folic acid, 02 via NC H/H fairly stable Status: Acute (2) Thrombocytopenia Assessment & Plan: mild secondary to hydroxyurea Status: Chronic (3) Iron overload due to repeated red blood cell transfusions Assessment & Plan: outpatient chelation Status: Chronic (4) Sickle cell anemia Assessment & Plan: folic acid and hydrea Status: Chronic
[2016-07-11] MEDS: Sodium Chloride 0.9% 1,000 ML IV SCH (19:30)
[2016-07-11] MEDS: HYDROmorphone 0.5 mg/0.5 ml ISec IVP PRN (21:06)
[2016-07-12] MEDS: HYDROmorphone 0.5 mg/0.5 ml ISec IVP PRN ×6 (01:09→21:02)
[2016-07-12] MEDS: DiphenhydrAMINE 50 mg/ml Inj IVP PRN ×3 (01:09→17:17)
[2016-07-12] MEDS: Sodium Chloride 0.9% 1,000 ML IV SCH ×5 (01:12→21:24)
[2016-07-12] MEDS: Pantoprazole 40 mg EC Tab PO SCH (05:49)
[2016-07-12 06:59] LABS: ADD MANUAL DIFF? NO
[2016-07-12 07:15] LABS: BASO # 0.05 K/mm3 (0.0-2.0); BASO % 0.4 % (0.0-3.0); EOS # 0.4 (0.0-0.7); EOS % 2.9 % (1.5-5.0); GRAN # 6.95 (1.4-6.5); GRAN % 53.9 % (50.0-68.0); LYMPH # 4.6 (1.2-3.4); LYMPH % 35.4 % (22.0-35.0); MEAN CELL VOLUME 93.1 fL (80.0-105.0); MEAN CORPUSCULAR HEMOGLOBIN 31.9 pg (25.0-35.0); MEAN CORPUSCULAR HGB CONC 34.3 g/dl (31.0-37.0); MEAN PLATELET VOLUME 10.5 fl (7.0-11.0); MONO % 7.4 % (1.0-6.0); PLATELET COUNT 110 10^3/uL (120.0-450.0); RED CELL DISTRIBUTION WIDTH 24.6 % (11.5-14.5); WHITE BLOOD COUNT 12.9 10^3/ul (4.5-11.0)
[2016-07-12 07:49] LABS: ALB/GLOB RATIO 0.7 (1.1-1.8); ALKALINE PHOSPHATASE 107 U/L (38-133); ALT/SGPT 72 U/L (7-56); AST/SGOT 85 U/L (15-39); BILIRUBIN,TOTAL 2.1 mg/dL (0.2-1.3); BLOOD UREA NITROGEN 4 mg/dL (7-21); CALCIUM 8.2 mg/dL (8.4-10.5); CARBON DIOXIDE 27 mmol/L (21-33); CHLORIDE 104 mmol/L (98-107); GFR AFRICAN-AMERICAN > 60; GLUCOSE,RANDOM 81 mg/dL (70-110); POTASSIUM 3.7 mmol/L (3.6-5.0); SODIUM 140 mmol/L (132-148); TOTAL PROTEIN 7.3 g/dL (5.8-8.3)
[2016-07-12 08:22] LABS: HEMATOCRIT 21.6 % (36.0-48.0)
[2016-07-12 08:27] LABS: RETIC% 16.93 % (0.5-1.5)
[2016-07-12] MEDS: Divalproex 250 mg DR (BID formulation) PO SCH ×2 (09:36→17:17)
[2016-07-12] MEDS: Ammonium Lactate 12% Cream (140 g) TOP SCH (09:37)
--- NOTE | 2016-07-12 09:43 | CP.PCM.PN ---
<Joao Conklin - Last Filed: 07/12/16 21:55> Subjective - Date & Time of Evaluation Date of Evaluation: 07/12/16 Time of Evaluation: 07:45 - Subjective Subjective: 35 y/o F with PMH sickle cell, cerebral palsy, asthma, HTN and bipolar disorder presented to the ED for chest pain x 1 day. There were no acute events overnight. Pt. is still complaining of chest pain, made worse on palpation that has not improved since admission. Her reticulocyte count came down slightly to 16.93. She was again encouraged to eat. She denies headache, fever, chills, SOB , n/v/d, or body aches. Objective - Vital Signs/Intake and Output Vital Signs (last 24 hours): Temp Pulse Resp BP Pulse Ox 98.0 F 71 20 119/79 98 07/12/16 00:00 07/12/16 06:00 07/12/16 00:00 07/12/16 00:00 07/12/16 00:00 Intake and Output: 07/12/16 07/12/16 06:59 18:59 Intake Total 2880 0 Output Total 800 400 Balance 2080 -400 - Medications Medications: Current Medications Albuterol Sulfate (Albuterol 0.083% Inhal Rika (2.5 Mg/3 Ml) Ud) 2.5 mg IH [id number] PRN PRN Reason: Shortness of Breath Last Admin: 07/06/16 16:37 Dose: 2.5 mg Benzonatate (Tessalon Perles) 100 mg PO TID [facility] Last Admin: 07/12/16 09:24 Dose: 100 mg Diphenhydramine HCl (Benadryl) 25 mg IVP Q6H PRN PRN Reason: Other Last Admin: 07/12/16 09:22 Dose: 25 mg Divalproex Sodium (Depakote Dr (*Bid*)) 250 mg PO BID [facility] PRN Reason: Protocol Last Admin: 07/12/16 09:36 Dose: 250 mg Folic Acid (Folic Acid) 1 mg PO DAILY [facility] Last Admin: 07/12/16 09:24 Dose: 1 mg Hydromorphone HCl (Dilaudid) 0.5 mg IVP Q4H PRN PRN Reason: Pain, severe (8-10) Last Admin: 07/12/16 09:23 Dose: 0.5 mg Sodium Chloride (Sodium Chloride 0.9%) 1,000 mls @ 200 mls/hr IV .Q5H [facility] Last Admin: 07/12/16 09:37 Dose: 200 mls/hr Lactic Acid (Lac-Hydrin 12% Cream (140 G)) 0 ea TOP DAILY [facility] Last Admin: 07/12/16 09:37 Dose: 1 applic Lorazepam (Ativan) 1 mg IVP Q4H PRN; Protocol PRN Reason: Seizure activity Pantoprazole Sodium (Protonix Ec Tab) 40 mg PO 0630 [facility] Last Admin: 07/12/16 05:49 Dose: 40 mg Trazodone HCl (Desyrel) 25 mg PO HS [facility] Last Admin: 07/11/16 21:15 Dose: 25 mg - Labs Labs: 07/12/16 06:00 07/12/16 06:00 PT 12.3 Seconds (9.9-11.8) H 07/05/16 16:08 INR 1.14 (0.93-1.08) H 07/05/16 16:08 APTT 29.2 Seconds (23.7-30.8) 07/05/16 16:08 - Constitutional Appears: Non-toxic, No Acute Distress - Head Exam Head Exam: ATRAUMATIC, NORMOCEPHALIC - Eye Exam Eye Exam: EOMI - ENT Exam ENT Exam: Mucous Membranes Moist - Neck Exam Neck Exam: absent: Lymphadenopathy, Thyromegaly - Respiratory Exam Respiratory Exam: Clear to Ausculation Bilateral, NORMAL BREATHING PATTERN. absent: Wheezes - Cardiovascular Exam Cardiovascular Exam: Tachycardia, REGULAR RHYTHM, +S1, +S2 - GI/Abdominal Exam GI & Abdominal Exam: Soft, Normal Bowel Sounds. absent: Tenderness - Extremities Exam Extremities Exam: absent: Joint Swelling, Tenderness - Neurological Exam Neurological Exam: Alert, Awake, Oriented x3 - Psychiatric Exam Psychiatric exam: Flat Affect, Normal Mood - Skin Skin Exam: Dry, Intact, Normal Color, Warm Assessment and Plan - Assessment and Plan (Free Text) Assessment: 35 y/o F with PMH of sickle cell, cerebral palsy, asthma, HTN and bipolar disorder presents in likely sickle cell crisis. Pt. has been stable with Hgb of 7.4 and she has had elevated Reticulocytes. Continue oxygen, IV fluids, IV Dilaudid, folic acid. Plan: 1. Sickle Cell Crisis Continue to monitor CBC and reticulocyte count in AM -Hgb is stable above 7 and reticulocytes are 16.93 Hydroxyurea will be held as per last hematology note. Pt has not followed up with hematology. increase NS to 200ml/hr Dilaudid 1mg q4 prn Multivitamin and folic acid Chest CT please see full report -limited by pt. motion, no aneurysm, dissection or PE -asymmetric airspace dz with scarring at the lung bases R>L, no lobar or segmental consolidation. Chest XRAY -Increased pulm vasc filiberto EKG -NSR at 76 -Mild NSSTW changes Troponins "-" x3 Hgb of 7.1 on 07/08 - will not transfuse unless Hgb falls below 7.0 Hgb of 7.3 on 07/09, 7.4 on 07/10, 7.4 on 07/12 Type & Screen Folic Acid 1mg PO daily Retic on 07/08 9.76 Retic on 07/09 14.02 Retic on 07/10 17.05 Retic on 07/12 16.93 2. Hx of Cerebral Palsy 3. Hx of Bipolar disorder Continue Depakote 250mg PO BID Continue Trazodone 4. Hx of Asthma Continue albuterol prn Tessalon Pearls 100mg PO TID 5. Insomnia Trazadone 25mg HS PPX Protonix 40mg daily SCDs Benedryll 25mg IV q6 prn Ammonium Lactate topical <ShivamasaCharan fredericka - Last Filed: 07/13/16 14:42> Objective - Vital Signs/Intake and Output Vital Signs (last 24 hours): Temp Pulse Resp BP Pulse Ox 98.4 F 72 18 140/87 97 07/13/16 08:11 07/13/16 08:11 07/13/16 08:11 07/13/16 08:11 07/13/16 08:11 Intake and Output: 07/13/16 07/13/16 06:59 18:59 Intake Total 2400 480 Output Total 1000 Balance 2400 -520 - Medications Medications: Current Medications Albuterol Sulfate (Albuterol 0.083% Inhal Rika (2.5 Mg/3 Ml) Ud) 2.5 mg IH [id number] PRN PRN Reason: Shortness of Breath Last Admin: 07/06/16 16:37 Dose: 2.5 mg Benzonatate (Tessalon Perles) 100 mg PO TID [facility] Last Admin: 07/13/16 10:14 Dose: 100 mg Diphenhydramine HCl (Benadryl) 25 mg IVP Q6H PRN PRN Reason: Other Last Admin: 07/13/16 10:21 Dose: 25 mg Divalproex Sodium (Depakote Dr (*Bid*)) 250 mg PO BID [facility] PRN Reason: Protocol Last Admin: 07/13/16 10:14 Dose: 250 mg Folic Acid (Folic Acid) 1 mg PO DAILY [facility] Last Admin: 07/13/16 10:14 Dose: 1 mg Hydromorphone HCl (Dilaudid) 0.5 mg IVP Q4H PRN PRN Reason: Pain, severe (8-10) Last Admin: 07/13/16 10:15 Dose: 0.5 mg Sodium Chloride (Sodium Chloride 0.9%) 1,000 mls @ 200 mls/hr IV .Q5H [facility] Last Admin: 07/13/16 10:15 Dose: 200 mls/hr Lactic Acid (Lac-Hydrin 12% Cream (140 G)) 0 ea TOP DAILY [facility] Last Admin: 07/13/16 10:15 Dose: 1 applic Lorazepam (Ativan) 1 mg IVP Q4H PRN; Protocol PRN Reason: Seizure activity Pantoprazole Sodium (Protonix Ec Tab) 40 mg PO 0630 [facility] Last Admin: 07/13/16 06:50 Dose: 40 mg Trazodone HCl (Desyrel) 25 mg PO HS [facility] Last Admin: 07/12/16 21:19 Dose: 25 mg - Labs Labs: 07/13/16 06:00 07/13/16 06:00 PT 12.3 Seconds (9.9-11.8) H 07/05/16 16:08 INR 1.14 (0.93-1.08) H 07/05/16 16:08 APTT 29.2 Seconds (23.7-30.8) 07/05/16 16:08 Attending/Attestation - Attestation I have personally seen and examined this patient.: Yes I have fully participated in the care of the patient.: Yes I have reviewed all pertinent clinical information, including history, physical exam and plan: Yes Notes (Text): 07/13/16 14:41 Attending note; Patient seen and examined with the resident. Patient is a 35-year-old female with a past medical history of sickle cell anemia, bipolar disorder, cerebral palsy is admitted with sickle cell crisis. Continue oxygen, IV fluids, IV Dilaudid, folic acid. Hydrea is on hold secondary to thrombocytopenia. Hematology evaluation with Dr. Palacios appreciated. reticulocyte count is 16.93. HB is 7.4. IV fluid increased. Monitor closely. Avoid transfusions due to iron overload. Upon discharge the patient will follow-up with PMD . Follow-up with hematology Dr. Palacios for outpatient chelation therapy.
[2016-07-12 12:30] LABS: HEMATOCRIT 22.1 % (36.0-48.0); MEAN CELL VOLUME 94.8 fL (80.0-105.0); MEAN CORPUSCULAR HEMOGLOBIN 33.5 pg (25.0-35.0); MEAN CORPUSCULAR HGB CONC 35.3 g/dl (31.0-37.0); MEAN PLATELET VOLUME 11.1 fl (7.0-11.0); RED CELL DISTRIBUTION WIDTH 25.2 % (11.5-14.5); RETIC% 16.58 % (0.5-1.5); WHITE BLOOD COUNT 12.1 10^3/ul (4.5-11.0)
[2016-07-12 13:33] LABS: ALB/GLOB RATIO 0.7 (1.1-1.8); ALKALINE PHOSPHATASE 109 U/L (38-133); ALT/SGPT 79 U/L (7-56); AST/SGOT 93 U/L (15-39); BILIRUBIN,TOTAL 1.9 mg/dL (0.2-1.3); BLOOD UREA NITROGEN 4 mg/dL (7-21); CALCIUM 8.5 mg/dL (8.4-10.5); CARBON DIOXIDE 28 mmol/L (21-33); CHLORIDE 105 mmol/L (98-107); GFR AFRICAN-AMERICAN > 60; GLUCOSE,RANDOM 82 mg/dL (70-110); SODIUM 140 mmol/L (132-148); TOTAL PROTEIN 7.4 g/dL (5.8-8.3)
[2016-07-13] MEDS: HYDROmorphone 0.5 mg/0.5 ml ISec IVP PRN ×5 (01:06→19:40)
[2016-07-13] MEDS: Sodium Chloride 0.9% 1,000 ML IV SCH ×5 (04:03→23:48)
[2016-07-13 06:40] LABS: ADD MANUAL DIFF? NO
[2016-07-13] MEDS: Pantoprazole 40 mg EC Tab PO SCH (06:50)
[2016-07-13 06:58] LABS: ALB/GLOB RATIO 0.8 (1.1-1.8); ALKALINE PHOSPHATASE 111 U/L (38-133); ALT/SGPT 76 U/L (7-56); AST/SGOT 99 U/L (15-39); BILIRUBIN,TOTAL 2.7 mg/dL (0.2-1.3); BLOOD UREA NITROGEN 5 mg/dL (7-21); CALCIUM 8.4 mg/dL (8.4-10.5); CARBON DIOXIDE 28 mmol/L (21-33); CHLORIDE 107 mmol/L (98-107); GFR AFRICAN-AMERICAN > 60; GLUCOSE,RANDOM 90 mg/dL (70-110); POTASSIUM 3.8 mmol/L (3.6-5.0); SODIUM 140 mmol/L (132-148); TOTAL PROTEIN 7.1 g/dL (5.8-8.3)
[2016-07-13 07:10] LABS: BASO # 0.07 K/mm3 (0.0-2.0); BASO % 0.5 % (0.0-3.0); EOS # 0.4 (0.0-0.7); EOS % 2.3 % (1.5-5.0); GRAN % 57.2 % (50.0-68.0); LYMPH % 32.9 % (22.0-35.0); MEAN CELL VOLUME 92.7 fL (80.0-105.0); MEAN CORPUSCULAR HEMOGLOBIN 32.5 pg (25.0-35.0); MEAN PLATELET VOLUME 10.3 fl (7.0-11.0); MONO # 1.1 (0.1-0.6); MONO % 7.1 % (1.0-6.0); PLATELET COUNT 110 10^3/uL (120.0-450.0); RED CELL DISTRIBUTION WIDTH 24.2 % (11.5-14.5)
[2016-07-13 08:20] LABS: HEMATOCRIT 21.7 % (36.0-48.0); RETIC% 18.36 % (0.5-1.5)
[2016-07-13] MEDS: Divalproex 250 mg DR (BID formulation) PO SCH ×2 (10:14→19:51)
[2016-07-13] MEDS: Ammonium Lactate 12% Cream (140 g) TOP SCH (10:15)
[2016-07-13] MEDS: DiphenhydrAMINE 50 mg/ml Inj IVP PRN ×2 (10:21→19:40)
--- NOTE | 2016-07-13 14:37 | CP.PCM.PN ---
Subjective - Date & Time of Evaluation Date of Evaluation: 07/12/16 Time of Evaluation: 19:30 - Subjective Subjective: Has chronic chest pain Objective - Vital Signs/Intake and Output Vital Signs (last 24 hours): Temp Pulse Resp BP Pulse Ox 98.4 F 72 18 140/87 97 07/13/16 08:11 07/13/16 08:11 07/13/16 08:11 07/13/16 08:11 07/13/16 08:11 Intake and Output: 07/13/16 07/13/16 06:59 18:59 Intake Total 2400 Balance 2400 - Medications Medications: Current Medications Albuterol Sulfate (Albuterol 0.083% Inhal Rika (2.5 Mg/3 Ml) Ud) 2.5 mg IH [id number] PRN PRN Reason: Shortness of Breath Last Admin: 07/06/16 16:37 Dose: 2.5 mg Benzonatate (Tessalon Perles) 100 mg PO TID [facility] Last Admin: 07/13/16 10:14 Dose: 100 mg Diphenhydramine HCl (Benadryl) 25 mg IVP Q6H PRN PRN Reason: Other Last Admin: 07/13/16 10:21 Dose: 25 mg Divalproex Sodium (Depakote Dr (*Bid*)) 250 mg PO BID [facility] PRN Reason: Protocol Last Admin: 07/13/16 10:14 Dose: 250 mg Folic Acid (Folic Acid) 1 mg PO DAILY [facility] Last Admin: 07/13/16 10:14 Dose: 1 mg Hydromorphone HCl (Dilaudid) 0.5 mg IVP Q4H PRN PRN Reason: Pain, severe (8-10) Last Admin: 07/13/16 10:15 Dose: 0.5 mg Sodium Chloride (Sodium Chloride 0.9%) 1,000 mls @ 200 mls/hr IV .Q5H [facility] Last Admin: 07/13/16 10:15 Dose: 200 mls/hr Lactic Acid (Lac-Hydrin 12% Cream (140 G)) 0 ea TOP DAILY [facility] Last Admin: 07/13/16 10:15 Dose: 1 applic Lorazepam (Ativan) 1 mg IVP Q4H PRN; Protocol PRN Reason: Seizure activity Pantoprazole Sodium (Protonix Ec Tab) 40 mg PO 0630 [facility] Last Admin: 07/13/16 06:50 Dose: 40 mg Trazodone HCl (Desyrel) 25 mg PO HS [facility] Last Admin: 07/12/16 21:19 Dose: 25 mg - Labs Labs: 07/13/16 06:00 07/13/16 06:00 PT 12.3 Seconds (9.9-11.8) H 07/05/16 16:08 INR 1.14 (0.93-1.08) H 07/05/16 16:08 APTT 29.2 Seconds (23.7-30.8) 07/05/16 16:08 - Head Exam Head Exam: ATRAUMATIC - Eye Exam Eye Exam: Normal appearance - ENT Exam ENT Exam: Mucous Membranes Dry - Respiratory Exam Respiratory Exam: NORMAL BREATHING PATTERN - Cardiovascular Exam Cardiovascular Exam: +S1, +S2 - GI/Abdominal Exam GI & Abdominal Exam: Normal Bowel Sounds - Extremities Exam Extremities Exam: Normal Inspection Assessment and Plan (1) Sickle cell pain crisis Assessment & Plan: IV fluids, pain meds, folic acid, 02 via NC Status: Acute (2) Thrombocytopenia Assessment & Plan: mild, no intervention Status: Chronic (3) Iron overload due to repeated red blood cell transfusions Assessment & Plan: outpatient chelation Status: Chronic (4) Sickle cell anemia Assessment & Plan: folic acid and hydrea Status: Chronic
--- NOTE | 2016-07-13 14:38 | CP.PCM.PN ---
Subjective - Date & Time of Evaluation Date of Evaluation: 07/13/16 Time of Evaluation: 13:50 - Subjective Subjective: Has chronic chest pain. Objective - Vital Signs/Intake and Output Vital Signs (last 24 hours): Temp Pulse Resp BP Pulse Ox 98.4 F 72 18 140/87 97 07/13/16 08:11 07/13/16 08:11 07/13/16 08:11 07/13/16 08:11 07/13/16 08:11 Intake and Output: 07/13/16 07/13/16 06:59 18:59 Intake Total 2400 480 Output Total 1000 Balance 2400 -520 - Medications Medications: Current Medications Albuterol Sulfate (Albuterol 0.083% Inhal Rika (2.5 Mg/3 Ml) Ud) 2.5 mg IH [id number] PRN PRN Reason: Shortness of Breath Last Admin: 07/06/16 16:37 Dose: 2.5 mg Benzonatate (Tessalon Perles) 100 mg PO TID [facility] Last Admin: 07/13/16 10:14 Dose: 100 mg Diphenhydramine HCl (Benadryl) 25 mg IVP Q6H PRN PRN Reason: Other Last Admin: 07/13/16 10:21 Dose: 25 mg Divalproex Sodium (Depakote Dr (*Bid*)) 250 mg PO BID [facility] PRN Reason: Protocol Last Admin: 07/13/16 10:14 Dose: 250 mg Folic Acid (Folic Acid) 1 mg PO DAILY [facility] Last Admin: 07/13/16 10:14 Dose: 1 mg Hydromorphone HCl (Dilaudid) 0.5 mg IVP Q4H PRN PRN Reason: Pain, severe (8-10) Last Admin: 07/13/16 10:15 Dose: 0.5 mg Sodium Chloride (Sodium Chloride 0.9%) 1,000 mls @ 200 mls/hr IV .Q5H [facility] Last Admin: 07/13/16 10:15 Dose: 200 mls/hr Lactic Acid (Lac-Hydrin 12% Cream (140 G)) 0 ea TOP DAILY [facility] Last Admin: 07/13/16 10:15 Dose: 1 applic Lorazepam (Ativan) 1 mg IVP Q4H PRN; Protocol PRN Reason: Seizure activity Pantoprazole Sodium (Protonix Ec Tab) 40 mg PO 0630 [facility] Last Admin: 07/13/16 06:50 Dose: 40 mg Trazodone HCl (Desyrel) 25 mg PO HS [facility] Last Admin: 07/12/16 21:19 Dose: 25 mg - Labs Labs: 07/13/16 06:00 07/13/16 06:00 PT 12.3 Seconds (9.9-11.8) H 07/05/16 16:08 INR 1.14 (0.93-1.08) H 07/05/16 16:08 APTT 29.2 Seconds (23.7-30.8) 07/05/16 16:08 - Head Exam Head Exam: ATRAUMATIC - Eye Exam Eye Exam: Normal appearance - ENT Exam ENT Exam: Mucous Membranes Dry - Respiratory Exam Respiratory Exam: NORMAL BREATHING PATTERN - Cardiovascular Exam Cardiovascular Exam: +S1, +S2 - GI/Abdominal Exam GI & Abdominal Exam: Normal Bowel Sounds Assessment and Plan (1) Sickle cell pain crisis Assessment & Plan: IV fluids, pain meds, folic acid, 02 via NC Status: Acute (2) Thrombocytopenia Assessment & Plan: mild, no intervention Status: Chronic (3) Iron overload due to repeated red blood cell transfusions Assessment & Plan: outpatient chelation Status: Chronic (4) Sickle cell anemia Assessment & Plan: folic acid and hydre Status: Chronic
--- NOTE | 2016-07-13 18:28 | CP.PCM.PN ---
<Tamy Norwood - Last Filed: 07/13/16 18:28> Subjective - Date & Time of Evaluation Date of Evaluation: 07/13/16 Time of Evaluation: 11:30 - Subjective Subjective: PGY-1 Medicine progress note Patient seen and examined at bedside. No acute distress. There were no acute events overnight per nurse. Pt. is still complaining of chest pain, made worse on palpation that has not improved since admission. She also report abdominal tenderness. Her reticulocyte count has increased compared to yesterday. She was again encouraged to eat. She denies headache, fever, chills, SOB, n/v/d. Objective - Vital Signs/Intake and Output Vital Signs (last 24 hours): Temp Pulse Resp BP Pulse Ox 97 F L 90 20 161/81 H 97 07/13/16 17:17 07/13/16 17:17 07/13/16 17:17 07/13/16 17:17 07/13/16 08:11 Intake and Output: 07/13/16 07/13/16 06:59 18:59 Intake Total 2400 480 Output Total 1000 Balance 2400 -520 - Medications Medications: Current Medications Albuterol Sulfate (Albuterol 0.083% Inhal Rika (2.5 Mg/3 Ml) Ud) 2.5 mg IH [id number] PRN PRN Reason: Shortness of Breath Last Admin: 07/06/16 16:37 Dose: 2.5 mg Benzonatate (Tessalon Perles) 100 mg PO TID [facility] Last Admin: 07/13/16 14:45 Dose: Not Given Diphenhydramine HCl (Benadryl) 25 mg IVP Q6H PRN PRN Reason: Other Last Admin: 07/13/16 10:21 Dose: 25 mg Divalproex Sodium (Depakote Dr (*Bid*)) 250 mg PO BID [facility] PRN Reason: Protocol Last Admin: 07/13/16 10:14 Dose: 250 mg Folic Acid (Folic Acid) 1 mg PO DAILY [facility] Last Admin: 07/13/16 10:14 Dose: 1 mg Hydromorphone HCl (Dilaudid) 0.5 mg IVP Q4H PRN PRN Reason: Pain, severe (8-10) Last Admin: 07/13/16 15:30 Dose: 0.5 mg Sodium Chloride (Sodium Chloride 0.9%) 1,000 mls @ 200 mls/hr IV .Q5H [facility] Last Admin: 07/13/16 15:46 Dose: 200 mls/hr Lactic Acid (Lac-Hydrin 12% Cream (140 G)) 0 ea TOP DAILY [facility] Last Admin: 07/13/16 10:15 Dose: 1 applic Lorazepam (Ativan) 1 mg IVP Q4H PRN; Protocol PRN Reason: Seizure activity Pantoprazole Sodium (Protonix Ec Tab) 40 mg PO 0630 [facility] Last Admin: 07/13/16 06:50 Dose: 40 mg Trazodone HCl (Desyrel) 25 mg PO HS [facility] Last Admin: 07/12/16 21:19 Dose: 25 mg - Labs Labs: 07/13/16 06:00 07/13/16 06:00 PT 12.3 Seconds (9.9-11.8) H 07/05/16 16:08 INR 1.14 (0.93-1.08) H 07/05/16 16:08 APTT 29.2 Seconds (23.7-30.8) 07/05/16 16:08 - Constitutional Appears: No Acute Distress - Head Exam Head Exam: ATRAUMATIC, NORMOCEPHALIC - Eye Exam Eye Exam: Normal appearance - ENT Exam ENT Exam: Mucous Membranes Moist - Respiratory Exam Respiratory Exam: Chest Wall Tenderness, Clear to Ausculation Bilateral, NORMAL BREATHING PATTERN. absent: Decreased Breath Sounds, Rhonchi, Wheezes, Respiratory Distress - Cardiovascular Exam Cardiovascular Exam: REGULAR RHYTHM. absent: Tachycardia, Murmur - GI/Abdominal Exam GI & Abdominal Exam: Soft, Tenderness, Normal Bowel Sounds. absent: Firm, Guarding - Extremities Exam Extremities Exam: Normal Inspection - Neurological Exam Neurological Exam: Alert, Awake, Oriented x3 Assessment and Plan - Assessment and Plan (Free Text) Assessment: 35 y/o F with PMH of sickle cell, cerebral palsy, asthma, HTN and bipolar disorder presents in likely sickle cell crisis. Pt. has been stable with Hgb of 7.6 today and she has had elevated Reticulocytes. Continue oxygen, IV fluids, IV Dilaudid, folic acid. Plan: 1. Sickle Cell Crisis - Continue to monitor CBC and reticulocyte count in AM - Hgb is stable above 7 and reticulocytes are elevated at 18.36 - Hydroxyurea will be held as per last hematology note. Pt has not followed up with hematology. - cont NS at 200ml/hr - Dilaudid 1mg q4 prn - Multivitamin and folic acid - will not transfuse unless Hgb falls below 7.0 - Type & Screen - chest pain and abd pain likely due to crisis 2. chest pain - Chest CT was limited by pt. motion, showed no aneurysm, dissection or PE, asymmetric airspace dz with scarring at the lung bases R>L, no lobar or segmental consolidation. (please see full report) - Chest XRAY showed Increased pulm vasc filiberto - EKG showed NSR at 76, Mild NSSTW changes - Troponins negative x3 3. Hx of Bipolar disorder - Continue Depakote 250mg PO BID - Continue Trazodone 4. Hx of Asthma - Continue albuterol prn - Tessalon Pearls 100mg PO TID 5. Insomnia - Trazadone 25mg HS 6. Hx of Cerebral Palsy PPX Protonix 40mg daily SCDs Benedryll 25mg IV q6 prn Ammonium Lactate topical <Jemma Pritchett - Last Filed: 07/14/16 11:39> Objective - Vital Signs/Intake and Output Vital Signs (last 24 hours): Temp Pulse Resp BP Pulse Ox 97.7 F 75 18 140/75 98 07/14/16 08:28 07/14/16 08:28 07/14/16 08:28 07/14/16 08:28 07/14/16 08:28 Intake and Output: 07/14/16 07/14/16 06:59 18:59 Intake Total 4800 Balance 4800 - Medications Medications: Current Medications Albuterol Sulfate (Albuterol 0.083% Inhal Rika (2.5 Mg/3 Ml) Ud) 2.5 mg IH [id number] PRN PRN Reason: Shortness of Breath Last Admin: 07/06/16 16:37 Dose: 2.5 mg Benzonatate (Tessalon Perles) 100 mg PO TID [facility] Last Admin: 07/14/16 10:37 Dose: 100 mg Diphenhydramine HCl (Benadryl) 25 mg IVP Q6H PRN PRN Reason: Other Last Admin: 07/14/16 10:35 Dose: 25 mg Divalproex Sodium (Depakote Dr (*Bid*)) 250 mg PO BID [facility] PRN Reason: Protocol Last Admin: 07/14/16 10:37 Dose: 250 mg Folic Acid (Folic Acid) 1 mg PO DAILY [facility] Last Admin: 07/14/16 10:37 Dose: 1 mg Hydromorphone HCl (Dilaudid) 0.5 mg IVP Q4H PRN PRN Reason: Pain, severe (8-10) Last Admin: 07/14/16 10:36 Dose: 0.5 mg Sodium Chloride (Sodium Chloride 0.9%) 1,000 mls @ 200 mls/hr IV .Q5H [facility] Last Admin: 07/14/16 10:38 Dose: 200 mls/hr Lactic Acid (Lac-Hydrin 12% Cream (140 G)) 0 ea TOP DAILY [facility] Last Admin: 07/14/16 10:38 Dose: 1 applic Lorazepam (Ativan) 1 mg IVP Q4H PRN; Protocol PRN Reason: Seizure activity Pantoprazole Sodium (Protonix Ec Tab) 40 mg PO 0630 [facility] Last Admin: 07/14/16 05:31 Dose: 40 mg Trazodone HCl (Desyrel) 25 mg PO HS [facility] Last Admin: 07/13/16 21:20 Dose: 25 mg - Labs Labs: 07/14/16 05:45 07/14/16 05:45 PT 12.3 Seconds (9.9-11.8) H 07/05/16 16:08 INR 1.14 (0.93-1.08) H 07/05/16 16:08 APTT 29.2 Seconds (23.7-30.8) 07/05/16 16:08 Attending/Attestation - Attestation I have personally seen and examined this patient.: Yes I have fully participated in the care of the patient.: Yes I have reviewed all pertinent clinical information, including history, physical exam and plan: Yes Notes (Text): 07/14/16 11:38 Attending note; Patient seen and examined with the resident. Patient is a 35-year-old female with a past medical history of sickle cell anemia, bipolar disorder, cerebral palsy is admitted with sickle cell crisis. Continue oxygen, IV fluids, IV Dilaudid, folic acid. Hydrea is on hold secondary to thrombocytopenia. Hematology evaluation with Dr. Palacios appreciated. reticulocyte count is 18.3. HB is 7.6. continue IV fluid increased. Monitor closely. Avoid transfusions due to iron overload. Upon discharge the patient will follow-up with PMD . Follow-up with hematology Dr. Palacios for outpatient chelation therapy.
[2016-07-14] MEDS: HYDROmorphone 0.5 mg/0.5 ml ISec IVP PRN ×6 (00:37→23:33)
[2016-07-14] MEDS: Sodium Chloride 0.9% 1,000 ML IV SCH ×6 (02:16→23:33)
[2016-07-14] MEDS: DiphenhydrAMINE 50 mg/ml Inj IVP PRN ×3 (05:05→18:45)
[2016-07-14] MEDS: Pantoprazole 40 mg EC Tab PO SCH (05:31)
[2016-07-14 05:50] LABS: ADD MANUAL DIFF? NO
[2016-07-14 06:01] LABS: BASO # 0.05 K/mm3 (0.0-2.0); BASO % 0.4 % (0.0-3.0); EOS # 0.3 (0.0-0.7); EOS % 2.4 % (1.5-5.0); GRAN # 6.99 (1.4-6.5); GRAN % 53.1 % (50.0-68.0); LYMPH # 4.8 (1.2-3.4); LYMPH % 36.4 % (22.0-35.0); MEAN CELL VOLUME 92.3 fL (80.0-105.0); MEAN CORPUSCULAR HEMOGLOBIN 32.4 pg (25.0-35.0); MEAN CORPUSCULAR HGB CONC 35.1 g/dl (31.0-37.0); MEAN PLATELET VOLUME 10.7 fl (7.0-11.0); MONO % 7.7 % (1.0-6.0); PLATELET COUNT 95 10^3/uL (120.0-450.0); RED CELL DISTRIBUTION WIDTH 24.7 % (11.5-14.5); WHITE BLOOD COUNT 13.2 10^3/ul (4.5-11.0)
[2016-07-14 06:08] LABS: RETIC% 20.28 % (0.5-1.5)
[2016-07-14 06:09] LABS: HEMATOCRIT 20.5 % (36.0-48.0)
[2016-07-14 06:12] LABS: ALB/GLOB RATIO 0.8 (1.1-1.8); ALKALINE PHOSPHATASE 113 U/L (38-133); ALT/SGPT 76 U/L (7-56); AST/SGOT 101 U/L (15-39); BILIRUBIN,TOTAL 2.7 mg/dL (0.2-1.3); BLOOD UREA NITROGEN 6 mg/dL (7-21); CALCIUM 8.2 mg/dL (8.4-10.5); CARBON DIOXIDE 29 mmol/L (21-33); CHLORIDE 107 mmol/L (98-107); GFR AFRICAN-AMERICAN > 60; GLUCOSE,RANDOM 87 mg/dL (70-110); POTASSIUM 3.7 mmol/L (3.6-5.0); SODIUM 140 mmol/L (132-148)
[2016-07-14] MEDS: Divalproex 250 mg DR (BID formulation) PO SCH ×2 (10:37→18:29)
[2016-07-14] MEDS: Ammonium Lactate 12% Cream (140 g) TOP SCH (10:38)
--- NOTE | 2016-07-14 11:36 | CP.PCM.PN ---
<Elisha Mace - Last Filed: 07/14/16 11:31> Subjective - Date & Time of Evaluation Date of Evaluation: 07/14/16 Time of Evaluation: 11:31 - Subjective Subjective: HOSPITALISTS PROGRESS NOTE Pt is seen and examined at bedside. No acute events overnight. Patient continues to complain of CP. She denies having any SOB, abd pain, N/V/D/C. Patient is tolerating diet. Objective - Vital Signs/Intake and Output Vital Signs (last 24 hours): Temp Pulse Resp BP Pulse Ox 97.7 F 75 18 140/75 98 07/14/16 08:28 07/14/16 08:28 07/14/16 08:28 07/14/16 08:28 07/14/16 08:28 Intake and Output: 07/14/16 07/14/16 06:59 18:59 Intake Total 4800 Balance 4800 - Medications Medications: Current Medications Albuterol Sulfate (Albuterol 0.083% Inhal Rika (2.5 Mg/3 Ml) Ud) 2.5 mg IH [id number] PRN PRN Reason: Shortness of Breath Last Admin: 07/06/16 16:37 Dose: 2.5 mg Benzonatate (Tessalon Perles) 100 mg PO TID [facility] Last Admin: 07/14/16 10:37 Dose: 100 mg Diphenhydramine HCl (Benadryl) 25 mg IVP Q6H PRN PRN Reason: Other Last Admin: 07/14/16 10:35 Dose: 25 mg Divalproex Sodium (Depakote Dr (*Bid*)) 250 mg PO BID [facility] PRN Reason: Protocol Last Admin: 07/14/16 10:37 Dose: 250 mg Folic Acid (Folic Acid) 1 mg PO DAILY [facility] Last Admin: 07/14/16 10:37 Dose: 1 mg Hydromorphone HCl (Dilaudid) 0.5 mg IVP Q4H PRN PRN Reason: Pain, severe (8-10) Last Admin: 07/14/16 10:36 Dose: 0.5 mg Sodium Chloride (Sodium Chloride 0.9%) 1,000 mls @ 200 mls/hr IV .Q5H [facility] Last Admin: 07/14/16 10:38 Dose: 200 mls/hr Lactic Acid (Lac-Hydrin 12% Cream (140 G)) 0 ea TOP DAILY [facility] Last Admin: 07/14/16 10:38 Dose: 1 applic Lorazepam (Ativan) 1 mg IVP Q4H PRN; Protocol PRN Reason: Seizure activity Pantoprazole Sodium (Protonix Ec Tab) 40 mg PO 0630 [facility] Last Admin: 07/14/16 05:31 Dose: 40 mg Trazodone HCl (Desyrel) 25 mg PO HS [facility] Last Admin: 07/13/16 21:20 Dose: 25 mg - Labs Labs: 07/14/16 05:45 07/14/16 05:45 PT 12.3 Seconds (9.9-11.8) H 07/05/16 16:08 INR 1.14 (0.93-1.08) H 07/05/16 16:08 APTT 29.2 Seconds (23.7-30.8) 07/05/16 16:08 - Constitutional Appears: Non-toxic, No Acute Distress - Head Exam Head Exam: ATRAUMATIC - ENT Exam ENT Exam: Mucous Membranes Moist - Respiratory Exam Respiratory Exam: Clear to Ausculation Bilateral. absent: Rales, Rhonchi, Wheezes - Cardiovascular Exam Cardiovascular Exam: REGULAR RHYTHM, +S1, +S2 - GI/Abdominal Exam GI & Abdominal Exam: Soft. absent: Distended, Firm, Guarding, Rigid, Tenderness - Extremities Exam Extremities Exam: absent: Pedal Edema, Tenderness - Neurological Exam Neurological Exam: Alert, Awake, Oriented x3 - Psychiatric Exam Psychiatric exam: Normal Affect, Normal Mood - Skin Skin Exam: Dry, Intact, Normal Color, Warm Assessment and Plan - Assessment and Plan (Free Text) Assessment: 35 y/o F with PMH of sickle cell, cerebral palsy, asthma, HTN and bipolar disorder presents in likely sickle cell crisis. Today, hgb is trending down and retic count has increased to 20.28 Plan: 1. Sickle Cell Crisis - Continue to monitor CBC and reticulocyte count in AM - Hydroxyurea will be held as per last hematology note. Pt has not followed up with hematology. - cont NS at 200ml/hr - Dilaudid 1mg q4 prn - Multivitamin and folic acid - will not transfuse unless Hgb falls below 7.0 - Type & Screen - chest pain and abd pain likely due to crisis - Regular diet with nutritional supplements (Ensure) ordered 2. chest pain - Chest CT from 07/05 was limited by pt. motion, showed no aneurysm, dissection or PE, asymmetric airspace dz with scarring at the lung bases R>L, no lobar or segmental consolidation. (please see full report) - Chest XRAY showed Increased pulm vasc filiberto - EKG showed NSR at 76, Mild NSSTW changes - Troponins negative x3 3. Hx of Bipolar disorder - Continue Depakote 250mg PO BID - Continue Trazodone 4. Hx of Asthma - Continue albuterol prn - Tessalon Pearls 100mg PO TID 5. Insomnia - Trazadone 25mg HS 6. Hx of Cerebral Palsy PPX Protonix 40mg daily SCDs Benedryll 25mg IV q6 prn Ammonium Lactate topical <Jemma Pritchett - Last Filed: 07/14/16 11:40> Objective - Vital Signs/Intake and Output Vital Signs (last 24 hours): Temp Pulse Resp BP Pulse Ox 97.7 F 75 18 140/75 98 07/14/16 08:28 07/14/16 08:28 07/14/16 08:28 07/14/16 08:28 07/14/16 08:28 Intake and Output: 07/14/16 07/14/16 06:59 18:59 Intake Total 4800 Balance 4800 - Medications Medications: Current Medications Albuterol Sulfate (Albuterol 0.083% Inhal Rika (2.5 Mg/3 Ml) Ud) 2.5 mg IH [id number] PRN PRN Reason: Shortness of Breath Last Admin: 07/06/16 16:37 Dose: 2.5 mg Benzonatate (Tessalon Perles) 100 mg PO TID [facility] Last Admin: 07/14/16 10:37 Dose: 100 mg Diphenhydramine HCl (Benadryl) 25 mg IVP Q6H PRN PRN Reason: Other Last Admin: 07/14/16 10:35 Dose: 25 mg Divalproex Sodium (Depakote Dr (*Bid*)) 250 mg PO BID [facility] PRN Reason: Protocol Last Admin: 07/14/16 10:37 Dose: 250 mg Folic Acid (Folic Acid) 1 mg PO DAILY [facility] Last Admin: 07/14/16 10:37 Dose: 1 mg Hydromorphone HCl (Dilaudid) 0.5 mg IVP Q4H PRN PRN Reason: Pain, severe (8-10) Last Admin: 07/14/16 10:36 Dose: 0.5 mg Sodium Chloride (Sodium Chloride 0.9%) 1,000 mls @ 200 mls/hr IV .Q5H [facility] Last Admin: 07/14/16 10:38 Dose: 200 mls/hr Lactic Acid (Lac-Hydrin 12% Cream (140 G)) 0 ea TOP DAILY [facility] Last Admin: 07/14/16 10:38 Dose: 1 applic Lorazepam (Ativan) 1 mg IVP Q4H PRN; Protocol PRN Reason: Seizure activity Pantoprazole Sodium (Protonix Ec Tab) 40 mg PO 0630 [facility] Last Admin: 07/14/16 05:31 Dose: 40 mg Trazodone HCl (Desyrel) 25 mg PO HS [facility] Last Admin: 07/13/16 21:20 Dose: 25 mg - Labs Labs: 07/14/16 05:45 07/14/16 05:45 PT 12.3 Seconds (9.9-11.8) H 07/05/16 16:08 INR 1.14 (0.93-1.08) H 07/05/16 16:08 APTT 29.2 Seconds (23.7-30.8) 07/05/16 16:08 Attending/Attestation - Attestation I have personally seen and examined this patient.: Yes I have fully participated in the care of the patient.: Yes I have reviewed all pertinent clinical information, including history, physical exam and plan: Yes Notes (Text): 07/14/16 11:40 Attending note; Patient seen and examined with the resident. Patient is a 35-year-old female with a past medical history of sickle cell anemia, bipolar disorder, cerebral palsy is admitted with sickle cell crisis. Continue oxygen, IV fluids, IV Dilaudid, folic acid. Hydrea is on hold secondary to thrombocytopenia. Hematology evaluation with Dr. Palacios appreciated. reticulocyte count is 20. HB is 7.2. IV fluid increased. Monitor closely. we'll transfuse if HB is less than 7. Mild leukocytosis; secondary to crisis. Patient is afebrilend nontoxic. Avoid transfusions due to iron overload. Upon discharge the patient will follow-up with PMD . Follow-up with hematology Dr. Palacios for outpatient chelation therapy.
[2016-07-15] MEDS: DiphenhydrAMINE 50 mg/ml Inj IVP PRN ×3 (03:42→17:00)
[2016-07-15] MEDS: HYDROmorphone 0.5 mg/0.5 ml ISec IVP PRN ×5 (03:43→22:03)
[2016-07-15] MEDS: Sodium Chloride 0.9% 1,000 ML IV SCH ×4 (05:30→21:54)
[2016-07-15] MEDS: Pantoprazole 40 mg EC Tab PO SCH (05:31)
[2016-07-15 06:43] LABS: ADD MANUAL DIFF? NO
[2016-07-15 07:16] LABS: BASO # 0.04 K/mm3 (0.0-2.0); BASO % 0.3 % (0.0-3.0); EOS # 0.3 (0.0-0.7); EOS % 2.2 % (1.5-5.0); GRAN # 6.59 (1.4-6.5); GRAN % 54.2 % (50.0-68.0); LYMPH # 4.2 (1.2-3.4); LYMPH % 34.7 % (22.0-35.0); MEAN CELL VOLUME 91.9 fL (80.0-105.0); MEAN CORPUSCULAR HEMOGLOBIN 32.7 pg (25.0-35.0); MEAN CORPUSCULAR HGB CONC 35.6 g/dl (31.0-37.0); MEAN PLATELET VOLUME 10.2 fl (7.0-11.0); MONO % 8.6 % (1.0-6.0); PLATELET COUNT 110 10^3/uL (120.0-450.0); RED CELL DISTRIBUTION WIDTH 25.2 % (11.5-14.5); WHITE BLOOD COUNT 12.2 10^3/ul (4.5-11.0)
[2016-07-15 07:20] LABS: ALB/GLOB RATIO 0.8 (1.1-1.8); ALKALINE PHOSPHATASE 111 U/L (38-133); ALT/SGPT 74 U/L (7-56); AST/SGOT 100 U/L (15-39); BILIRUBIN,TOTAL 2.8 mg/dL (0.2-1.3); BLOOD UREA NITROGEN 3 mg/dL (7-21); CALCIUM 8.1 mg/dL (8.4-10.5); CARBON DIOXIDE 28 mmol/L (21-33); CHLORIDE 107 mmol/L (98-107); GFR AFRICAN-AMERICAN > 60; GLUCOSE,RANDOM 81 mg/dL (70-110); POTASSIUM 3.7 mmol/L (3.6-5.0); SODIUM 140 mmol/L (132-148); TOTAL PROTEIN 6.9 g/dL (5.8-8.3)
[2016-07-15 07:54] LABS: HEMATOCRIT 20.5 % (36.0-48.0)
[2016-07-15 07:55] LABS: RETIC% 21.38 % (0.5-1.5)
[2016-07-15] MEDS: Divalproex 250 mg DR (BID formulation) PO SCH ×2 (09:11→17:00)
[2016-07-15] MEDS ORDERED: guaiFENesin 100 mg/5 ml Syrup UD PO PRN (12:00)
[2016-07-15] MEDS: Ammonium Lactate 12% Cream (140 g) TOP SCH (14:36)
--- NOTE | 2016-07-15 18:44 | CP.PCM.PN ---
<ConklinJoao - Last Filed: 07/15/16 22:15> Subjective - Date & Time of Evaluation Date of Evaluation: 07/15/16 Time of Evaluation: 07:30 - Subjective Subjective: HOSPITALISTS PROGRESS NOTE Pt is seen and examined at bedside. No acute events overnight. Patient continues to complain of CP. She denies having any SOB, abd pain, N/V/D/C. Since her stay she normally eats about one meal a day. However, she has been more talkative and willing to provide information. Objective - Vital Signs/Intake and Output Vital Signs (last 24 hours): Temp Pulse Resp BP Pulse Ox 98.9 F 78 20 130/81 97 07/15/16 08:53 07/15/16 08:53 07/15/16 08:53 07/15/16 08:53 07/15/16 08:53 Intake and Output: 07/15/16 07/15/16 06:59 18:59 Intake Total 4800 360 Balance 4800 360 - Medications Medications: Current Medications Albuterol Sulfate (Albuterol 0.083% Inhal Rika (2.5 Mg/3 Ml) Ud) 2.5 mg IH [id number] PRN PRN Reason: Shortness of Breath Last Admin: 07/06/16 16:37 Dose: 2.5 mg Dexamethasone (Decadron) 2 mg PO DAILY [facility] Last Admin: 07/15/16 12:32 Dose: 2 mg Diphenhydramine HCl (Benadryl) 25 mg IVP Q6H PRN PRN Reason: Other Last Admin: 07/15/16 17:00 Dose: 25 mg Divalproex Sodium (Depakote Dr (*Bid*)) 250 mg PO BID [facility] PRN Reason: Protocol Last Admin: 07/15/16 17:00 Dose: 250 mg Folic Acid (Folic Acid) 1 mg PO DAILY [facility] Last Admin: 07/15/16 09:12 Dose: 1 mg Guaifenesin (Robitussin) 100 mg PO Q4H PRN PRN Reason: Cough Hydromorphone HCl (Dilaudid) 0.5 mg IVP Q4H PRN PRN Reason: Pain, severe (8-10) Last Admin: 07/15/16 17:00 Dose: 0.5 mg Sodium Chloride (Sodium Chloride 0.9%) 1,000 mls @ 200 mls/hr IV .Q5H [facility] Last Admin: 07/15/16 16:44 Dose: 200 mls/hr Lactic Acid (Lac-Hydrin 12% Cream (140 G)) 0 ea TOP DAILY [facility] Last Admin: 07/15/16 14:36 Dose: 1 applic Lorazepam (Ativan) 1 mg IVP Q4H PRN; Protocol PRN Reason: Seizure activity Pantoprazole Sodium (Protonix Ec Tab) 40 mg PO 0630 [facility] Last Admin: 07/15/16 05:31 Dose: 40 mg Trazodone HCl (Desyrel) 25 mg PO HS [facility] Last Admin: 07/14/16 21:17 Dose: 25 mg - Labs Labs: 07/15/16 06:30 07/15/16 06:30 PT 12.3 Seconds (9.9-11.8) H 07/05/16 16:08 INR 1.14 (0.93-1.08) H 07/05/16 16:08 APTT 29.2 Seconds (23.7-30.8) 07/05/16 16:08 - Constitutional Appears: Non-toxic, No Acute Distress - Head Exam Head Exam: ATRAUMATIC, NORMOCEPHALIC - Eye Exam Eye Exam: EOMI - ENT Exam ENT Exam: Mucous Membranes Moist - Neck Exam Neck Exam: absent: Lymphadenopathy, Thyromegaly - Respiratory Exam Respiratory Exam: Clear to Ausculation Bilateral, NORMAL BREATHING PATTERN. absent: Wheezes - Cardiovascular Exam Cardiovascular Exam: Tachycardia, REGULAR RHYTHM, +S1, +S2 - GI/Abdominal Exam GI & Abdominal Exam: Soft, Normal Bowel Sounds. absent: Tenderness - Extremities Exam Extremities Exam: absent: Joint Swelling, Tenderness - Neurological Exam Neurological Exam: Alert, Awake, Oriented x3 - Psychiatric Exam Psychiatric exam: Flat Affect, Normal Mood - Skin Skin Exam: Dry, Intact, Normal Color, Warm Assessment and Plan - Assessment and Plan (Free Text) Assessment: 35 y/o F with PMH of sickle cell, cerebral palsy, asthma, HTN and bipolar disorder presents in likely sickle cell crisis. Pt. has been stable with Hgb of 7.4 and she has had elevated Reticulocytes. Continue oxygen, IV fluids, IV Dilaudid, folic acid. Plan: 1. Sickle Cell Crisis Continue to monitor CBC and reticulocyte count in AM -Hgb is stable above 7 and reticulocytes are 16.93 Hydroxyurea will be held as per last hematology note. Pt has not followed up with hematology. increase NS to 200ml/hr Dilaudid 1mg q4 prn Multivitamin and folic acid Chest CT please see full report -limited by pt. motion, no aneurysm, dissection or PE -asymmetric airspace dz with scarring at the lung bases R>L, no lobar or segmental consolidation. Chest XRAY -Increased pulm vasc filiberto EKG -NSR at 76 -Mild NSSTW changes Troponins "-" x3 Hgb of 7.1 on 07/08 - will not transfuse unless Hgb falls below 7.0 Hgb of 7.3 on 07/09, 7.4 on 07/10, 7.4 on 07/12 Type & Screen Folic Acid 1mg PO daily Retic on 07/08 9.76 Retic on 07/09 14.02 Retic on 07/10 17.05 Retic on 07/12 16.93 Retic on 07/15 21.38 Heme/Onc Consult - Dr. Stevens - appreciate recs 2. Hx of Cerebral Palsy 3. Hx of Bipolar disorder Continue Depakote 250mg PO BID Continue Trazodone 4. Hx of Asthma Continue albuterol prn Robitussin 100mg PO q4 prn for cough 5. Insomnia Trazadone 25mg HS 6. Anorexia Dexamethasone 2mg daily PPX Protonix 40mg daily SCDs Benedryl 25mg IV q6 prn Ammonium Lactate topical <Lyndsey Noble B - Last Filed: 07/16/16 16:30> Objective - Vital Signs/Intake and Output Vital Signs (last 24 hours): Temp Pulse Resp BP Pulse Ox 98.7 F 82 20 135/84 97 07/16/16 06:00 07/16/16 06:00 07/16/16 06:00 07/16/16 06:00 07/16/16 06:00 Intake and Output: 07/16/16 07/16/16 06:59 18:59 Intake Total 3360 Output Total 1500 Balance 1860 - Medications Medications: Current Medications Albuterol Sulfate (Albuterol 0.083% Inhal Rika (2.5 Mg/3 Ml) Ud) 2.5 mg IH [id number] PRN PRN Reason: Shortness of Breath Last Admin: 07/06/16 16:37 Dose: 2.5 mg Albuterol/Ipratropium (Duoneb 3 Mg/0.5 Mg (3 Ml) Ud) 3 ml IH [id number] [facility] Last Admin: 07/16/16 13:35 Dose: 3 ml Dexamethasone (Decadron) 2 mg PO DAILY [facility] Last Admin: 07/16/16 10:52 Dose: Not Given Diphenhydramine HCl (Benadryl) 25 mg IVP Q6H PRN PRN Reason: Other Last Admin: 07/16/16 11:23 Dose: 25 mg Divalproex Sodium (Depakote Dr (*Bid*)) 250 mg PO BID [facility] PRN Reason: Protocol Last Admin: 07/16/16 10:44 Dose: 250 mg Folic Acid (Folic Acid) 1 mg PO DAILY [facility] Last Admin: 07/16/16 10:44 Dose: 1 mg Guaifenesin (Robitussin) 100 mg PO Q4H PRN PRN Reason: Cough Hydromorphone HCl (Dilaudid) 0.5 mg IVP Q4H PRN PRN Reason: Pain, severe (8-10) Last Admin: 07/16/16 11:24 Dose: 0.5 mg Sodium Chloride (Sodium Chloride 0.9%) 1,000 mls @ 200 mls/hr IV .Q5H [facility] Last Admin: 07/16/16 07:56 Dose: 200 mls/hr Lactic Acid (Lac-Hydrin 12% Cream (140 G)) 0 ea TOP DAILY [facility] Last Admin: 07/16/16 10:46 Dose: 1 applic Lorazepam (Ativan) 1 mg IVP Q4H PRN; Protocol PRN Reason: Seizure activity Pantoprazole Sodium (Protonix Ec Tab) 40 mg PO 0630 [facility] Last Admin: 07/16/16 05:47 Dose: 40 mg Trazodone HCl (Desyrel) 25 mg PO HS [facility] Last Admin: 07/15/16 21:53 Dose: 25 mg - Labs Labs: 07/16/16 07:30 07/16/16 07:30 PT 12.3 Seconds (9.9-11.8) H 07/05/16 16:08 INR 1.14 (0.93-1.08) H 07/05/16 16:08 APTT 29.2 Seconds (23.7-30.8) 07/05/16 16:08 Attending/Attestation - Attestation I have personally seen and examined this patient.: Yes I have fully participated in the care of the patient.: Yes I have reviewed all pertinent clinical information, including history, physical exam and plan: Yes Notes (Text): I have seen and examined patient with the resident. This is 35 year old female with history of sickle cell anemia, bipolar disorder, cerebral palsy, CHF with systolic dysfunction (EF~ 40%) who was admitted with sickle cell crisis. Continue oxygen, IV fluids, IV Dilaudid and folic acid. Hydrea is on hold secondary to thrombocytopenia. Hematology evaluation with Dr. Palacios appreciated. Reticulocyte count is 21. Hb is 7.2. Continue IVF. we'll transfuse if HB is less than 7. Avoid transfusions due to iron overload. Complains of loss of appetite. Discussed with Chemical Educator. Will start dexamethasone. Mild leukocytosis is secondary to crisis. Patient is afebrile and nontoxic. Upon discharge the patient will follow-up with PMD . Follow-up with hematology Dr. Palacios for outpatient chelation therapy. Dr Lyndsey Noble
[2016-07-16] MEDS: HYDROmorphone 0.5 mg/0.5 ml ISec IVP PRN ×5 (02:59→22:15)
[2016-07-16] MEDS: DiphenhydrAMINE 50 mg/ml Inj IVP PRN ×3 (02:59→17:20)
[2016-07-16] MEDS: Sodium Chloride 0.9% 1,000 ML IV SCH ×4 (03:04→22:16)
[2016-07-16] MEDS: Pantoprazole 40 mg EC Tab PO SCH (05:47)
[2016-07-16 07:39] LABS: ADD MANUAL DIFF? NO
[2016-07-16 07:52] LABS: ALB/GLOB RATIO 0.8 (1.1-1.8); ALKALINE PHOSPHATASE 129 U/L (38-133); ALT/SGPT 77 U/L (7-56); AST/SGOT 117 U/L (15-39); BILIRUBIN,TOTAL 2.9 mg/dL (0.2-1.3); BLOOD UREA NITROGEN 4 mg/dL (7-21); CALCIUM 8.4 mg/dL (8.4-10.5); CARBON DIOXIDE 26 mmol/L (21-33); CHLORIDE 106 mmol/L (95-110); GFR AFRICAN-AMERICAN > 60; GLUCOSE,RANDOM 108 mg/dL (70-110); POTASSIUM 3.9 mmol/L (3.6-5.0); SODIUM 139 mmol/L (132-148); TOTAL PROTEIN 7.4 g/dL (5.8-8.3)
[2016-07-16 08:03] LABS: BASO # 0.03 K/mm3 (0.0-2.0); BASO % 0.2 % (0.0-3.0); EOS # 0.1 (0.0-0.7); GRAN # 8.49 (1.4-6.5); GRAN % 58.4 % (50.0-68.0); LYMPH # 4.7 (1.2-3.4); MEAN CELL VOLUME 92.6 fL (80.0-105.0); MEAN CORPUSCULAR HEMOGLOBIN 32.9 pg (25.0-35.0); MEAN CORPUSCULAR HGB CONC 35.5 g/dl (31.0-37.0); MEAN PLATELET VOLUME 10.9 fl (7.0-11.0); MONO # 1.2 (0.1-0.6); MONO % 8.4 % (1.0-6.0); PLATELET COUNT 119 10^3/uL (120.0-450.0); RED CELL DISTRIBUTION WIDTH 25.7 % (11.5-14.5); WHITE BLOOD COUNT 14.5 10^3/ul (4.5-11.0)
[2016-07-16 08:10] LABS: HEMATOCRIT 21.4 % (36.0-48.0); RETIC% 22.72 % (0.5-1.5)
--- NOTE | 2016-07-16 09:52 | CP.PCM.PN ---
<Joao Conklin - Last Filed: 07/16/16 16:47> Subjective - Date & Time of Evaluation Date of Evaluation: 07/16/16 Time of Evaluation: 07:30 - Subjective Subjective: HOSPITALISTS PROGRESS NOTE Pt is seen and examined at bedside. No acute events overnight. Patient continues to complain of CP. She denies having any SOB, abd pain, N/V/D/C. She did eat most of her breakfast today and she was encouraged to eat more. Objective - Vital Signs/Intake and Output Vital Signs (last 24 hours): Temp Pulse Resp BP Pulse Ox 98.7 F 82 20 135/84 97 07/16/16 06:00 07/16/16 06:00 07/16/16 06:00 07/16/16 06:00 07/16/16 06:00 Intake and Output: 07/16/16 07/16/16 06:59 18:59 Intake Total 3360 Output Total 1500 Balance 1860 - Medications Medications: Current Medications Albuterol Sulfate (Albuterol 0.083% Inhal Rika (2.5 Mg/3 Ml) Ud) 2.5 mg IH [id number] PRN PRN Reason: Shortness of Breath Last Admin: 07/06/16 16:37 Dose: 2.5 mg Dexamethasone (Decadron) 2 mg PO DAILY [facility] Last Admin: 07/15/16 12:32 Dose: 2 mg Diphenhydramine HCl (Benadryl) 25 mg IVP Q6H PRN PRN Reason: Other Last Admin: 07/16/16 02:59 Dose: 25 mg Divalproex Sodium (Depakote Dr (*Bid*)) 250 mg PO BID [facility] PRN Reason: Protocol Last Admin: 07/15/16 17:00 Dose: 250 mg Folic Acid (Folic Acid) 1 mg PO DAILY [facility] Last Admin: 07/15/16 09:12 Dose: 1 mg Guaifenesin (Robitussin) 100 mg PO Q4H PRN PRN Reason: Cough Hydromorphone HCl (Dilaudid) 0.5 mg IVP Q4H PRN PRN Reason: Pain, severe (8-10) Last Admin: 07/16/16 07:48 Dose: 0.5 mg Sodium Chloride (Sodium Chloride 0.9%) 1,000 mls @ 200 mls/hr IV .Q5H [facility] Last Admin: 07/16/16 07:56 Dose: 200 mls/hr Lactic Acid (Lac-Hydrin 12% Cream (140 G)) 0 ea TOP DAILY [facility] Last Admin: 07/15/16 14:36 Dose: 1 applic Lorazepam (Ativan) 1 mg IVP Q4H PRN; Protocol PRN Reason: Seizure activity Pantoprazole Sodium (Protonix Ec Tab) 40 mg PO 0630 [facility] Last Admin: 07/16/16 05:47 Dose: 40 mg Trazodone HCl (Desyrel) 25 mg PO HS [facility] Last Admin: 07/15/16 21:53 Dose: 25 mg - Labs Labs: 07/16/16 07:30 07/16/16 07:30 PT 12.3 Seconds (9.9-11.8) H 07/05/16 16:08 INR 1.14 (0.93-1.08) H 07/05/16 16:08 APTT 29.2 Seconds (23.7-30.8) 07/05/16 16:08 - Constitutional Appears: Non-toxic, No Acute Distress - Head Exam Head Exam: ATRAUMATIC, NORMOCEPHALIC - Eye Exam Eye Exam: EOMI - ENT Exam ENT Exam: Mucous Membranes Moist - Neck Exam Neck Exam: absent: Lymphadenopathy, Thyromegaly - Respiratory Exam Respiratory Exam: Clear to Ausculation Bilateral, NORMAL BREATHING PATTERN. absent: Wheezes - Cardiovascular Exam Cardiovascular Exam: Tachycardia, REGULAR RHYTHM, +S1, +S2 - GI/Abdominal Exam GI & Abdominal Exam: Soft, Normal Bowel Sounds. absent: Tenderness - Extremities Exam Extremities Exam: absent: Joint Swelling, Tenderness - Neurological Exam Neurological Exam: Alert, Awake, Oriented x3 - Psychiatric Exam Psychiatric exam: Flat Affect, Normal Mood - Skin Skin Exam: Dry, Intact, Normal Color, Warm Assessment and Plan - Assessment and Plan (Free Text) Assessment: 35 y/o F with PMH of sickle cell, cerebral palsy, asthma, HTN and bipolar disorder presents in likely sickle cell crisis. Pt. has been stable with Hgb of 7.4 and she has had elevated Reticulocytes. Continue oxygen, IV fluids, IV Dilaudid, folic acid. Plan: 1. Sickle Cell Crisis Continue to monitor CBC and reticulocyte count in AM -Hgb is stable above 7 and reticulocytes are trending up to 22.72 -will not transfuse unless Hgb falls below 7.0 -Type & Screen -Folic Acid 1mg PO daily Heme/Onc Consult - Dr. Stevens - appreciate recs Hydroxyurea will be held as per last hematology note. Pt has not followed up with hematology. increase NS to 200ml/hr Dilaudid 1mg q4 prn Multivitamin Chest CT - please see full report -limited by pt. motion, no aneurysm, dissection or PE -asymmetric airspace dz with scarring at the lung bases R>L, no lobar or segmental consolidation. Chest XRAY -Increased pulm vasc filiberto EKG -NSR at 76 -Mild NSSTW changes Troponins "-" x3 2. Hx of Bipolar disorder Continue Depakote 250mg PO BID Continue Trazodone 3. Hx of Asthma Continue albuterol prn added Duonebs 3ml IH q6 [facility] Robitussin 100mg PO q4 prn for cough 4. Insomnia Trazadone 25mg HS 5. Anorexia Dexamethasone 2mg daily PPX Protonix 40mg daily SCDs Benedryl 25mg IV q6 prn Ammonium Lactate topical <Lyndsey Noble - Last Filed: 07/17/16 10:09> Objective - Vital Signs/Intake and Output Vital Signs (last 24 hours): Temp Pulse Resp BP Pulse Ox 97.6 F 80 20 134/90 98 07/16/16 16:00 07/16/16 16:00 07/16/16 16:00 07/16/16 16:00 07/16/16 16:00 Intake and Output: 07/17/16 07/17/16 06:59 18:59 Intake Total 3060 Output Total 700 Balance 2360 - Medications Medications: Current Medications Albuterol Sulfate (Albuterol 0.083% Inhal Rika (2.5 Mg/3 Ml) Ud) 2.5 mg IH [id number] PRN PRN Reason: Shortness of Breath Last Admin: 07/06/16 16:37 Dose: 2.5 mg Albuterol/Ipratropium (Duoneb 3 Mg/0.5 Mg (3 Ml) Ud) 3 ml IH [id number] [facility] Last Admin: 07/17/16 08:11 Dose: Not Given Dexamethasone (Decadron) 2 mg PO DAILY [facility] Last Admin: 07/16/16 10:52 Dose: Not Given Diphenhydramine HCl (Benadryl) 25 mg IVP Q6H PRN PRN Reason: Other Last Admin: 07/17/16 08:29 Dose: 25 mg Divalproex Sodium (Depakote Dr (*Bid*)) 250 mg PO BID [facility] PRN Reason: Protocol Last Admin: 07/16/16 17:21 Dose: 250 mg Folic Acid (Folic Acid) 1 mg PO DAILY [facility] Last Admin: 07/16/16 10:44 Dose: 1 mg Guaifenesin (Robitussin) 100 mg PO Q4H PRN PRN Reason: Cough Hydromorphone HCl (Dilaudid) 0.5 mg IVP Q4H PRN PRN Reason: Pain, severe (8-10) Last Admin: 07/17/16 08:23 Dose: 0.5 mg Sodium Chloride (Sodium Chloride 0.9%) 1,000 mls @ 200 mls/hr IV .Q5H [facility] Last Admin: 07/17/16 05:36 Dose: 200 mls/hr Lactic Acid (Lac-Hydrin 12% Cream (140 G)) 0 ea TOP DAILY [facility] Last Admin: 07/16/16 10:46 Dose: 1 applic Lorazepam (Ativan) 1 mg IVP Q4H PRN; Protocol PRN Reason: Seizure activity Pantoprazole Sodium (Protonix Ec Tab) 40 mg PO 0630 [facility] Last Admin: 07/17/16 05:36 Dose: 40 mg Trazodone HCl (Desyrel) 25 mg PO HS [facility] Last Admin: 07/16/16 21:35 Dose: 25 mg - Labs Labs: 07/17/16 07:00 07/17/16 07:00 PT 12.3 Seconds (9.9-11.8) H 07/05/16 16:08 INR 1.14 (0.93-1.08) H 07/05/16 16:08 APTT 29.2 Seconds (23.7-30.8) 07/05/16 16:08 Attending/Attestation - Attestation I have personally seen and examined this patient.: Yes I have fully participated in the care of the patient.: Yes I have reviewed all pertinent clinical information, including history, physical exam and plan: Yes Notes (Text): I have seen and examined patient with the resident. This is 35 year old female with history of sickle cell anemia, bipolar disorder, cerebral palsy, CHF with systolic dysfunction (EF~ 40%) who was admitted with sickle cell crisis. Continue oxygen, IV fluids, IV Dilaudid and folic acid. Hydrea is on hold secondary to thrombocytopenia. Hematology evaluation with Dr. Palacios appreciated. Reticulocyte count is 22. Hb is 7.6. Continue IVF. Plan to transfuse if HB is less than 7. Avoid transfusions due to iron overload. Complains of loss of appetite. Discussed with Sales Support Specialist who recommended to start dexamethasone however she refused to take that. Mild leukocytosis is secondary to crisis. Patient is afebrile and nontoxic. Upon discharge the patient will follow-up with PMD . Follow-up with hematology Dr. Palacios for outpatient chelation therapy. Dr Lyndsey Noble
[2016-07-16] MEDS: Divalproex 250 mg DR (BID formulation) PO SCH ×2 (10:44→17:21)
[2016-07-16] MEDS: Ammonium Lactate 12% Cream (140 g) TOP SCH (10:46)
[2016-07-16] MEDS: Albuterol-Ipratrop 3 mg / 0.5 (3 ml) UD IH SCH ×2 (13:35→19:38)
--- NOTE | 2016-07-16 19:41 | CP.PCM.PN ---
Subjective - Date & Time of Evaluation Date of Evaluation: 07/16/16 Time of Evaluation: 19:00 - Subjective Subjective: Has same chest pain Objective - Vital Signs/Intake and Output Vital Signs (last 24 hours): Temp Pulse Resp BP Pulse Ox 97.6 F 80 20 134/90 98 07/16/16 16:00 07/16/16 16:00 07/16/16 16:00 07/16/16 16:00 07/16/16 16:00 - Medications Medications: Current Medications Albuterol Sulfate (Albuterol 0.083% Inhal Rika (2.5 Mg/3 Ml) Ud) 2.5 mg IH [id number] PRN PRN Reason: Shortness of Breath Last Admin: 07/06/16 16:37 Dose: 2.5 mg Albuterol/Ipratropium (Duoneb 3 Mg/0.5 Mg (3 Ml) Ud) 3 ml IH [id number] [facility] Last Admin: 07/16/16 19:38 Dose: 3 ml Dexamethasone (Decadron) 2 mg PO DAILY [facility] Last Admin: 07/16/16 10:52 Dose: Not Given Diphenhydramine HCl (Benadryl) 25 mg IVP Q6H PRN PRN Reason: Other Last Admin: 07/16/16 17:20 Dose: 25 mg Divalproex Sodium (Depakote Dr (*Bid*)) 250 mg PO BID [facility] PRN Reason: Protocol Last Admin: 07/16/16 17:21 Dose: 250 mg Folic Acid (Folic Acid) 1 mg PO DAILY [facility] Last Admin: 07/16/16 10:44 Dose: 1 mg Guaifenesin (Robitussin) 100 mg PO Q4H PRN PRN Reason: Cough Hydromorphone HCl (Dilaudid) 0.5 mg IVP Q4H PRN PRN Reason: Pain, severe (8-10) Last Admin: 07/16/16 17:20 Dose: 0.5 mg Sodium Chloride (Sodium Chloride 0.9%) 1,000 mls @ 200 mls/hr IV .Q5H [facility] Last Admin: 07/16/16 17:20 Dose: 200 mls/hr Lactic Acid (Lac-Hydrin 12% Cream (140 G)) 0 ea TOP DAILY [facility] Last Admin: 07/16/16 10:46 Dose: 1 applic Lorazepam (Ativan) 1 mg IVP Q4H PRN; Protocol PRN Reason: Seizure activity Pantoprazole Sodium (Protonix Ec Tab) 40 mg PO 0630 [facility] Last Admin: 07/16/16 05:47 Dose: 40 mg Trazodone HCl (Desyrel) 25 mg PO HS [facility] Last Admin: 07/15/16 21:53 Dose: 25 mg - Labs Labs: 07/16/16 07:30 07/16/16 07:30 PT 12.3 Seconds (9.9-11.8) H 07/05/16 16:08 INR 1.14 (0.93-1.08) H 07/05/16 16:08 APTT 29.2 Seconds (23.7-30.8) 07/05/16 16:08 - Head Exam Head Exam: ATRAUMATIC - Eye Exam Eye Exam: Normal appearance - ENT Exam ENT Exam: Mucous Membranes Dry - Respiratory Exam Respiratory Exam: NORMAL BREATHING PATTERN - Cardiovascular Exam Cardiovascular Exam: +S1, +S2 - GI/Abdominal Exam GI & Abdominal Exam: Normal Bowel Sounds Assessment and Plan (1) Sickle cell pain crisis Assessment & Plan: IV fluids, folic acid, pain meds, 02 via NC Status: Acute (2) Thrombocytopenia Assessment & Plan: improving Status: Chronic (3) Iron overload due to repeated red blood cell transfusions Assessment & Plan: outpatient chelation Status: Chronic (4) Sickle cell anemia Assessment & Plan: hydrea and folic acid Status: Chronic
[2016-07-17] MEDS: Albuterol-Ipratrop 3 mg / 0.5 (3 ml) UD IH SCH ×4 (02:40→22:45)
[2016-07-17] MEDS: HYDROmorphone 0.5 mg/0.5 ml ISec IVP PRN ×2 (02:42→08:23)
[2016-07-17] MEDS: DiphenhydrAMINE 50 mg/ml Inj IVP PRN ×3 (02:42→13:52)
[2016-07-17] MEDS: Sodium Chloride 0.9% 1,000 ML IV SCH (05:36)
[2016-07-17] MEDS: Pantoprazole 40 mg EC Tab PO SCH (05:36)
[2016-07-17 07:38] LABS: ADD MANUAL DIFF? NO
[2016-07-17 07:54] LABS: BASO # 0.05 K/mm3 (0.0-2.0); BASO % 0.4 % (0.0-3.0); EOS # 0.2 (0.0-0.7); EOS % 1.4 % (1.5-5.0); GRAN # 6.92 (1.4-6.5); GRAN % 50.6 % (50.0-68.0); LYMPH # 5.2 (1.2-3.4); LYMPH % 38.3 % (22.0-35.0); MEAN CELL VOLUME 92.6 fL (80.0-105.0); MEAN CORPUSCULAR HEMOGLOBIN 33.3 pg (25.0-35.0); MEAN PLATELET VOLUME 10.8 fl (7.0-11.0); MONO # 1.3 (0.1-0.6); MONO % 9.3 % (1.0-6.0); PLATELET COUNT 119 10^3/uL (120.0-450.0); RED CELL DISTRIBUTION WIDTH 26.1 % (11.5-14.5); WHITE BLOOD COUNT 13.7 10^3/ul (4.5-11.0)
[2016-07-17 08:05] LABS: ALB/GLOB RATIO 0.8 (1.1-1.8); ALKALINE PHOSPHATASE 97 U/L (38-133); ALT/SGPT 72 U/L (7-56); AST/SGOT 96 U/L (15-39); BILIRUBIN,TOTAL 2.1 mg/dL (0.2-1.3); BLOOD UREA NITROGEN 3 mg/dL (7-21); CALCIUM 8.3 mg/dL (8.4-10.5); CARBON DIOXIDE 27 mmol/L (21-33); CHLORIDE 108 mmol/L (98-107); GFR AFRICAN-AMERICAN > 60; GLUCOSE,RANDOM 93 mg/dL (70-110); POTASSIUM 3.3 mmol/L (3.6-5.0); SODIUM 142 mmol/L (132-148); TOTAL PROTEIN 6.8 g/dL (5.8-8.3)
[2016-07-17 08:46] LABS: RETIC% 24.08 % (0.5-1.5)
[2016-07-17] MEDS ORDERED: Potassium Chloride 20 mEq ER Tab PO ONE (09:29)
[2016-07-17] MEDS: Divalproex 250 mg DR (BID formulation) PO SCH ×3 (11:07→18:05)
[2016-07-17] MEDS: Ammonium Lactate 12% Cream (140 g) TOP SCH (11:10)
[2016-07-17] MEDS: HYDROmorphone 0.5 mg/0.5 ml ISec IVP SCH ×2 (12:48→18:31)
--- NOTE | 2016-07-17 13:46 | CP.PCM.PN ---
<ConklinJoao - Last Filed: 07/17/16 21:11> Subjective - Date & Time of Evaluation Date of Evaluation: 07/17/16 Time of Evaluation: 08:00 - Subjective Subjective: PGY-1 [facility] PROGRESS NOTE Pt is seen and examined at bedside. No acute events overnight. Patient continues to complain of CP. She denies having any SOB, abd pain, N/V/D/C and is eating more. She received one breathing treatment yesterday with no change in her cough. Objective - Vital Signs/Intake and Output Vital Signs (last 24 hours): Temp Pulse Resp BP Pulse Ox 97.4 F L 90 18 119/77 98 07/17/16 06:00 07/17/16 06:00 07/17/16 06:00 07/17/16 06:00 07/17/16 06:00 Intake and Output: 07/17/16 07/17/16 06:59 18:59 Intake Total 3060 Output Total 700 Balance 2360 - Medications Medications: Current Medications Albuterol Sulfate (Albuterol 0.083% Inhal Rika (2.5 Mg/3 Ml) Ud) 2.5 mg IH [id number] PRN PRN Reason: Shortness of Breath Last Admin: 07/06/16 16:37 Dose: 2.5 mg Albuterol/Ipratropium (Duoneb 3 Mg/0.5 Mg (3 Ml) Ud) 3 ml IH [id number] [facility]PL[facility] Last Admin: 07/17/16 08:11 Dose: Not Given Dexamethasone (Decadron) 2 mg PO DAILY [facility] Last Admin: 07/17/16 11:08 Dose: 2 mg Diphenhydramine HCl (Benadryl) 25 mg IVP Q6H PRN PRN Reason: Other Last Admin: 07/17/16 08:29 Dose: 25 mg Divalproex Sodium (Depakote Dr (*Bid*)) 250 mg PO BID [facility] PRN Reason: Protocol Last Admin: 07/17/16 11:09 Dose: 250 mg Folic Acid (Folic Acid) 1 mg PO DAILY [facility] Last Admin: 07/17/16 11:10 Dose: 1 mg Guaifenesin (Robitussin) 100 mg PO Q4H PRN PRN Reason: Cough Hydromorphone HCl (Dilaudid) 0.5 mg IVP Q6 [facility] Last Admin: 07/17/16 12:48 Dose: 0.5 mg Sodium Chloride (Sodium Chloride 0.9%) 1,000 mls @ 200 mls/hr IV .Q5H [facility] Last Admin: 07/17/16 05:36 Dose: 200 mls/hr Lactic Acid (Lac-Hydrin 12% Cream (140 G)) 0 ea TOP DAILY [facility] Last Admin: 07/17/16 11:10 Dose: 1 applic Lorazepam (Ativan) 1 mg IVP Q4H PRN; Protocol PRN Reason: Seizure activity Pantoprazole Sodium (Protonix Ec Tab) 40 mg PO 0630 [facility] Last Admin: 07/17/16 05:36 Dose: 40 mg Trazodone HCl (Desyrel) 25 mg PO HS [facility] Last Admin: 07/16/16 21:35 Dose: 25 mg - Labs Labs: 07/17/16 07:00 07/17/16 07:00 PT 12.3 Seconds (9.9-11.8) H 07/05/16 16:08 INR 1.14 (0.93-1.08) H 07/05/16 16:08 APTT 29.2 Seconds (23.7-30.8) 07/05/16 16:08 - Constitutional Appears: Non-toxic, No Acute Distress - Head Exam Head Exam: ATRAUMATIC, NORMOCEPHALIC - Eye Exam Eye Exam: EOMI - ENT Exam ENT Exam: Mucous Membranes Moist - Neck Exam Neck Exam: absent: Lymphadenopathy, Thyromegaly - Respiratory Exam Respiratory Exam: Clear to Ausculation Bilateral, NORMAL BREATHING PATTERN. absent: Wheezes - Cardiovascular Exam Cardiovascular Exam: Tachycardia, REGULAR RHYTHM, +S1, +S2 - GI/Abdominal Exam GI & Abdominal Exam: Soft, Normal Bowel Sounds. absent: Tenderness - Extremities Exam Extremities Exam: absent: Joint Swelling, Tenderness - Neurological Exam Neurological Exam: Alert, Awake, Oriented x3 - Psychiatric Exam Psychiatric exam: Flat Affect, Normal Mood - Skin Skin Exam: Dry, Intact, Normal Color, Warm Assessment and Plan - Assessment and Plan (Free Text) Assessment: 35 y/o F with PMH of sickle cell, cerebral palsy, asthma, HTN and bipolar disorder presents in likely sickle cell crisis. Pt. has been stable with Hgb in the low 7's and she has had elevated Reticulocytes. Continue oxygen, IV fluids, IV Dilaudid, folic acid. Plan: 1. Sickle Cell Crisis Continue to monitor CBC and reticulocyte count in AM -Hgb is stable above 7 and reticulocytes are trending up to 22.72 -will not transfuse unless Hgb falls below 7.0 -Type & Screen -Folic Acid 1mg PO daily -Transfused 1u of blood, will follow CBC in the am Heme/Onc Consult - Dr. Stevens - appreciate recs Hydroxyurea will be held as per last hematology note. Pt has not followed up with hematology. increase NS to 200ml/hr changed Dilaudid to 1mg q6 prn Multivitamin Chest CT - please see full report -limited by pt. motion, no aneurysm, dissection or PE -asymmetric airspace dz with scarring at the lung bases R>L, no lobar or segmental consolidation. -Maalox prn Chest XRAY -Increased pulm vasc filiberto EKG -NSR at 76 -Mild NSSTW changes Troponins "-" x3 2. Hx of Bipolar disorder Continue Depakote 250mg PO BID Continue Trazodone 3. Hx of Asthma Continue albuterol prn added Duonebs 3ml IH q6 [facility] Robitussin 100mg PO q4 prn for cough 4. Insomnia Trazadone 25mg HS 5. Anorexia Dexamethasone 2mg daily PPX Protonix 40mg daily, Maalox prn SCDs Benedryl 25mg IV q6 prn Ammonium Lactate topical <Lyndsey Noble - Last Filed: 07/18/16 09:12> Objective - Vital Signs/Intake and Output Vital Signs (last 24 hours): Temp Pulse Resp BP Pulse Ox 97.4 F L 76 18 142/102 H 96 07/18/16 08:47 07/18/16 08:47 07/18/16 08:47 07/18/16 08:47 07/18/16 08:47 Intake and Output: 07/18/16 07/18/16 06:59 18:59 Intake Total 670 Output Total 750 Balance -80 - Medications Medications: Current Medications Al Hydrox/Mg Hydrox/Simethicone (Maalox Plus 30 Ml) 30 ml PO DAILY PRN PRN Reason: Indigestion / Heartburn Albuterol Sulfate (Albuterol 0.083% Inhal Rika (2.5 Mg/3 Ml) Ud) 2.5 mg IH [id number] PRN PRN Reason: Shortness of Breath Last Admin: 07/06/16 16:37 Dose: 2.5 mg Albuterol/Ipratropium (Duoneb 3 Mg/0.5 Mg (3 Ml) Ud) 3 ml IH [id number] REPLACED BY [facility] Last Admin: 07/18/16 08:32 Dose: 3 ml Dexamethasone (Decadron) 2 mg PO DAILY [facility] Last Admin: 07/17/16 11:08 Dose: 2 mg Diphenhydramine HCl (Benadryl) 25 mg IVP Q6H PRN PRN Reason: Other Last Admin: 07/18/16 06:56 Dose: 25 mg Divalproex Sodium (Depakote Dr (*Bid*)) 250 mg PO BID [facility]PL[facility] PRN Reason: Protocol Last Admin: 07/17/16 18:05 Dose: 250 mg Folic Acid (Folic Acid) 1 mg PO DAILY [facility] Last Admin: 07/17/16 11:10 Dose: 1 mg Guaifenesin (Robitussin) 100 mg PO Q4H PRN PRN Reason: Cough Hydromorphone HCl (Dilaudid) 0.5 mg IVP Q6 [facility]PL[facility] Last Admin: 07/18/16 06:57 Dose: 0.5 mg Sodium Chloride (Sodium Chloride 0.9%) 1,000 mls @ 200 mls/hr IV .Q5H REPLACED BY [facility] Last Admin: 07/17/16 05:36 Dose: 200 mls/hr Lactic Acid (Lac-Hydrin 12% Cream (140 G)) 0 ea TOP DAILY [facility] Last Admin: 07/17/16 11:10 Dose: 1 applic Lorazepam (Ativan) 1 mg IVP Q4H PRN; Protocol PRN Reason: Seizure activity Pantoprazole Sodium (Protonix Ec Tab) 40 mg PO 0630 [facility] Last Admin: 07/18/16 06:56 Dose: 40 mg Trazodone HCl (Desyrel) 25 mg PO HS [facility]PL[facility] Last Admin: 07/17/16 22:08 Dose: 25 mg - Labs Labs: 07/18/16 07:00 07/18/16 07:00 PT 12.3 Seconds (9.9-11.8) H 07/05/16 16:08 INR 1.14 (0.93-1.08) H 07/05/16 16:08 APTT 29.2 Seconds (23.7-30.8) 07/05/16 16:08 Attending/Attestation - Attestation I have personally seen and examined this patient.: Yes I have fully participated in the care of the patient.: Yes I have reviewed all pertinent clinical information, including history, physical exam and plan: Yes Notes (Text): I have seen and examined patient with the resident. This is 35 year old female with history of sickle cell anemia, bipolar disorder, cerebral palsy, CHF with systolic dysfunction (EF~ 40%) who was admitted with sickle cell crisis. Continue oxygen, IV fluids, IV Dilaudid and folic acid. Hydrea is on hold secondary to thrombocytopenia. Hematology evaluation with Dr. Palacios appreciated. Reticulocyte count is 24. Hb is 7.2. Continue IVF. Will give 1 units of prbc as per heme onc. Avoid transfusions due to iron overload. Complains of loss of appetite. Discussed with Driver Manager who recommended to start dexamethasone however she refused to take that. Mild leukocytosis is secondary to crisis. Patient is afebrile and nontoxic. It seems like that she had multiple admissions in the hospital due to social issue which she does not want to discuss with us. Dr Palacios recommended psych consult. As per him, patient has been very depressed and anxious for the past 6 months due to issues with her sisters and required multiple hospitalization. She also refused to go to [facility]. Patient currently resides in shelter. Upon discharge the patient will follow-up with PMD . Follow-up with hematology Dr. Palacios for outpatient chelation therapy. Dr Lyndsey Noble
[2016-07-17] MEDS ORDERED: Alum-Mag Hydrox-Simethicone Susp (30 mL) PO STA (14:17)
[2016-07-17] MEDS ORDERED: Alum-Mag Hydrox-Simethicone Susp (30 mL) PO PRN (14:17)
[2016-07-18] MEDS: DiphenhydrAMINE 50 mg/ml Inj IVP PRN ×2 (00:07→06:56)
[2016-07-18] MEDS: HYDROmorphone 0.5 mg/0.5 ml ISec IVP SCH ×2 (00:07→06:57)
[2016-07-18] MEDS: Pantoprazole 40 mg EC Tab PO SCH ×2 (06:55→06:56)
[2016-07-18 07:14] LABS: ADD MANUAL DIFF? NO
[2016-07-18 07:22] LABS: BASO # 0.04 K/mm3 (0.0-2.0); BASO % 0.3 % (0.0-3.0); EOS # 0.2 (0.0-0.7); EOS % 1.4 % (1.5-5.0); GRAN # 6.58 (1.4-6.5); GRAN % 48.6 % (50.0-68.0); HEMATOCRIT 25.5 % (36.0-48.0); LYMPH # 5.6 (1.2-3.4); LYMPH % 41.1 % (22.0-35.0); MEAN CELL VOLUME 90.1 fL (80.0-105.0); MEAN CORPUSCULAR HEMOGLOBIN 31.4 pg (25.0-35.0); MEAN CORPUSCULAR HGB CONC 34.9 g/dl (31.0-37.0); MONO # 1.2 (0.1-0.6); MONO % 8.6 % (1.0-6.0); PLATELET COUNT 116 10^3/uL (120.0-450.0); RED CELL DISTRIBUTION WIDTH 24.7 % (11.5-14.5); WHITE BLOOD COUNT 13.6 10^3/ul (4.5-11.0)
[2016-07-18 07:36] LABS: RETIC% 20.82 % (0.5-1.5)
[2016-07-18 07:48] LABS: ALB/GLOB RATIO 0.9 (1.1-1.8); ALKALINE PHOSPHATASE 110 U/L (38-133); ALT/SGPT 76 U/L (7-56); AST/SGOT 107 U/L (15-39); BILIRUBIN,TOTAL 2.9 mg/dL (0.2-1.3); BLOOD UREA NITROGEN 7 mg/dL (7-21); CALCIUM 8.9 mg/dL (8.4-10.5); CARBON DIOXIDE 27 mmol/L (21-33); CHLORIDE 105 mmol/L (95-110); GFR AFRICAN-AMERICAN > 60; GLUCOSE,RANDOM 99 mg/dL (70-110); POTASSIUM 4.1 mmol/L (3.6-5.0); SODIUM 140 mmol/L (132-148); TOTAL PROTEIN 7.6 g/dL (5.8-8.3)
[2016-07-18] MEDS: Albuterol-Ipratrop 3 mg / 0.5 (3 ml) UD IH SCH ×3 (08:32→19:59)
[2016-07-18] MEDS ORDERED: Sodium Chloride 0.9% 1,000 ML IV SCH (09:10)
--- NOTE | 2016-07-18 14:59 | CON ---
DATE: 07/18/2016 Shortly, patient is a 35-year-old -Wel[place] female with history of neurocognitive disorder. T he patient has low intellectual functioning. The patient also has history of mental illness, major d epressive disorder versus schizoaffective disorder. The patient was admitted on the medical floor, a s per patient, for chest pain. The patient has sickle cell anemia, most likely sickle cell crisis. Psych consult was called for evaluation of depressive symptoms as well as patient has history of bein g on psychotropic medication. The patient was seen and examined. The patient presented to be [facility], but patient was able to provide minimal information. The patient reported that she did not slee p last night and that is why she feels sleepy. The patient reported that her chest pain is a little better. The patient reported that she was compliant with the medication. She lives in a custodial. This clinical writer had no access to the previous records because [facility] is down. Medical team resumed a ll of the psychotropic medication what she needs to be on. We will continue monitoring. As per nurs ing staff, patient does not have any behavioral issues. Pleasant, cooperative, socially appropriate. PAST PSYCHIATRIC HISTORY: The patient has multiple admissions into the psychiatric inpatient unit in the past, was on psychotropic medications in the past. The patient has history of threatening to ki ll herself or kill others. This clinical writer needs to check previous records. MENTAL STATUS EXAMINATION: The patient presented to be sleepy, easily arousable. Intermittent eye c ontact. Speech was underproductive. There is some poverty of speech and poverty of thoughts. Mood described as "I'm fine." Affect was flat. Thought process concrete. Thought content: The patient denied visual, auditory, or tactile hallucinations, denied paranoid ideations. The patient does not present to be psychotic, but guarded. Insight and judgment are limited. Impulses are well controlle d. IMPRESSION: As per history, patient has neurocognitive deficit, low intelligence quotient, history o f schizoaffective disorder. The patient has sickle cell anemia, most likely has sickle cell crisis. PLAN: Medications were confirmed and resumed by medical team. We will check previous history. We w ill monitor patient closely. The patient does not need to be on 1:1 as of now. Collateral informati on will be obtained from the custodial where patient lives. Thank you very much for letting me participate in care of your patient. Fadia Odonnell MD cc: [phone] TT: 07/18/2016 14:58:20 Confirmation # [id number] Dictation # [id number]
--- NOTE | 2016-07-18 19:54 | CARD ---
APPROVED REPORT EXAM: Two-dimensional and M-mode echocardiogram with Doppler and color Doppler. INDICATION CP/POSSIBLE PERICARDIAL EFFUSION 2D DIMENSIONS Left Atrium (2D)4.9 (1.6-4.0cm)IVSd0.9 (0.7-1.1cm) LVDd4.9 (3.9-5.9cm)PWd1.1 (0.7-1.1cm) LVDs3.9 (2.5-4.0cm)FS (%) 19.4 % LVEF (%)39.7 (>50%) M-Mode DIMENSIONS Aortic Root3.00 (2.2-3.7cm)Aortic Cusp Exc.1.90 (1.5-2.0cm) Aortic Valve AoV Peak Jekyjorx316.0cm/Nicci Peak GR.13mmHg Mitral Valve E/A ratio0.0 TDI E/Lateral E'0.0E/Medial E'0.0 Pulmonary Valve PV Peak Kbzxdgig41.3cm/sPV Peak Grad.2mmHg Tricuspid Valve TR Peak [id number]/sRAP [id number] Peak Gr.35mmHg [id number] LEFT VENTRICLE The left ventricle is normal size. There is normal left ventricular wall thickness. The systolic function is mildly to moderately impaired.EF-35-40% There is global hypokinesis of the left ventricle. Transmitral Doppler flow pattern is Grade III-reversible restrictive diastolic dysfunction. No left ventricle thrombus noted on this study. There is no ventricular septal defect visualized. There is no left ventricular aneurysm. There is no mass noted in the left ventricle. RIGHT VENTRICLE The right ventricle is normal size. There is normal right ventricular wall thickness. The right ventricular systolic function is normal. ATRIA The left atrium is mildly dilated. The right atrium size is normal. The interatrial septum is intact with no evidence for an atrial septal defect. AORTIC VALVE The aortic valve is thickened but opens well. There is trace aortic regurgitation. There is no aortic valvular stenosis. There is no aortic valvular vegetation. MITRAL VALVE The mitral valve is thickened but opens well. Mitral regurgitation is mild to moderate. There is no mitral valve stenosis. There is no evidence of mitral valve prolapse. TRICUSPID VALVE The tricuspid valve leaflets are thickened , but open well. There is moderate tricuspid regurgitation.RVSP-45 mmof hg. There is no tricuspid valve stenosis. There is no tricuspid valve prolapse or vegetation. PULMONIC VALVE The pulmonic valve is mildly thickened. There is trace pulmonic valvular regurgitation. There is no pulmonic valvular stenosis. GREAT VESSELS The aortic root is normal in size. The ascending aorta is normal in size. The pulmonary artery is normal. The IVC is dilated. PERICARDIAL EFFUSION There is no pleural effusion. There is no pericardial effusion. <Conclusion> The left ventricle is normal size. There is normal left ventricular wall thickness. The systolic function is mildly to moderately impaired.EF-35-40% There is trace aortic regurgitation. Mitral regurgitation is mild to moderate. There is moderate tricuspid regurgitation.RVSP-45 mmof hg. The IVC is dilated. There is no pericardial effusion. No thrombus or vegetation noted.
--- NOTE | 2016-07-18 21:15 | CP.PCM.PN ---
Subjective - Date & Time of Evaluation Date of Evaluation: 07/18/16 Time of Evaluation: 19:00 - Subjective Subjective: Has burning chest pain Objective - Vital Signs/Intake and Output Vital Signs (last 24 hours): Temp Pulse Resp BP Pulse Ox 99.9 F H 93 H 20 136/90 96 07/18/16 16:00 07/18/16 16:00 07/18/16 16:00 07/18/16 16:00 07/18/16 16:00 - Medications Medications: Current Medications Al Hydrox/Mg Hydrox/Simethicone (Maalox Plus 30 Ml) 30 ml PO DAILY PRN PRN Reason: Indigestion / Heartburn Albuterol Sulfate (Albuterol 0.083% Inhal Rika (2.5 Mg/3 Ml) Ud) 2.5 mg IH [id number] PRN PRN Reason: Shortness of Breath Last Admin: 07/06/16 16:37 Dose: 2.5 mg Albuterol/Ipratropium (Duoneb 3 Mg/0.5 Mg (3 Ml) Ud) 3 ml IH [id number] [facility] Last Admin: 07/18/16 19:59 Dose: 3 ml Dexamethasone (Decadron) 2 mg PO DAILY [facility] Last Admin: 07/17/16 11:08 Dose: 2 mg Diphenhydramine HCl (Benadryl) 25 mg IVP Q6H PRN PRN Reason: Other Last Admin: 07/18/16 06:56 Dose: 25 mg Divalproex Sodium (Depakote Dr (*Bid*)) 250 mg PO BID [facility] PRN Reason: Protocol Last Admin: 07/17/16 18:05 Dose: 250 mg Folic Acid (Folic Acid) 1 mg PO DAILY [facility] Last Admin: 07/17/16 11:10 Dose: 1 mg Guaifenesin (Robitussin) 100 mg PO Q4H PRN PRN Reason: Cough Hydromorphone HCl (Dilaudid) 0.5 mg IVP Q6 [facility] Last Admin: 07/18/16 06:57 Dose: 0.5 mg Sodium Chloride (Sodium Chloride 0.9%) 1,000 mls @ 150 mls/hr IV .Q6H40M [facility] Lactic Acid (Lac-Hydrin 12% Cream (140 G)) 0 ea TOP DAILY [facility] Last Admin: 07/17/16 11:10 Dose: 1 applic Lorazepam (Ativan) 1 mg IVP Q4H PRN; Protocol PRN Reason: Seizure activity Pantoprazole Sodium (Protonix Ec Tab) 40 mg PO 0630 [facility] Last Admin: 07/18/16 06:56 Dose: 40 mg Trazodone HCl (Desyrel) 25 mg PO HS [facility] Last Admin: 07/17/16 22:08 Dose: 25 mg - Labs Labs: 07/18/16 07:00 07/18/16 07:00 PT 12.3 Seconds (9.9-11.8) H 07/05/16 16:08 INR 1.14 (0.93-1.08) H 07/05/16 16:08 APTT 29.2 Seconds (23.7-30.8) 07/05/16 16:08 - Head Exam Head Exam: ATRAUMATIC - Eye Exam Eye Exam: Normal appearance - ENT Exam ENT Exam: Mucous Membranes Dry - Respiratory Exam Respiratory Exam: NORMAL BREATHING PATTERN - Cardiovascular Exam Cardiovascular Exam: +S1, +S2 - GI/Abdominal Exam GI & Abdominal Exam: Normal Bowel Sounds Assessment and Plan (1) Sickle cell pain crisis Assessment & Plan: IV fluids, pain meds, folic acid, 02 via NC s/p PRBC transfusion Status: Acute (2) Thrombocytopenia Status: Chronic (3) Iron overload due to repeated red blood cell transfusions Status: Chronic (4) Sickle cell anemia Assessment & Plan: folic acid and hydrea Status: Chronic
--- NOTE | 2016-07-18 22:30 | CP.PCM.PN ---
<Joao Conklin - Last Filed: 07/19/16 00:13> Subjective - Date & Time of Evaluation Date of Evaluation: 07/18/16 Time of Evaluation: 07:30 - Subjective Subjective: PGY-1 HOSPITALISTS PROGRESS NOTE Pt is seen and examined at bedside. No acute events overnight. Patient continues to complain of CP. She denies having any SOB, abd pain, N/V/D/C and is eating more. Psych consult was ordered to assess whether another cause, possibly psychosomatic could be contributing to her CP. Objective - Vital Signs/Intake and Output Vital Signs (last 24 hours): Temp Pulse Resp BP Pulse Ox 99.9 F H 93 H 20 136/90 96 07/18/16 16:00 07/18/16 16:00 07/18/16 16:00 07/18/16 16:00 07/18/16 16:00 Intake and Output: 07/18/16 07/19/16 18:59 06:59 Intake Total 480 Output Total 500 Balance -20 - Medications Medications: Current Medications Al Hydrox/Mg Hydrox/Simethicone (Maalox Plus 30 Ml) 30 ml PO DAILY PRN PRN Reason: Indigestion / Heartburn Albuterol Sulfate (Albuterol 0.083% Inhal Rika (2.5 Mg/3 Ml) Ud) 2.5 mg IH [id number] PRN PRN Reason: Shortness of Breath Last Admin: 07/06/16 16:37 Dose: 2.5 mg Albuterol/Ipratropium (Duoneb 3 Mg/0.5 Mg (3 Ml) Ud) 3 ml IH [id number] [facility] Last Admin: 07/18/16 19:59 Dose: 3 ml Dexamethasone (Decadron) 2 mg PO DAILY [facility] Last Admin: 07/17/16 11:08 Dose: 2 mg Diphenhydramine HCl (Benadryl) 25 mg IVP Q6H PRN PRN Reason: Other Last Admin: 07/18/16 06:56 Dose: 25 mg Divalproex Sodium (Depakote Dr (*Bid*)) 250 mg PO BID [facility] PRN Reason: Protocol Last Admin: 07/17/16 18:05 Dose: 250 mg Folic Acid (Folic Acid) 1 mg PO DAILY [facility] Last Admin: 07/17/16 11:10 Dose: 1 mg Guaifenesin (Robitussin) 100 mg PO Q4H PRN PRN Reason: Cough Hydromorphone HCl (Dilaudid) 0.5 mg IVP Q6 [facility] Last Admin: 07/18/16 06:57 Dose: 0.5 mg Sodium Chloride (Sodium Chloride 0.9%) 1,000 mls @ 150 mls/hr IV .Q6H40M [facility] Lactic Acid (Lac-Hydrin 12% Cream (140 G)) 0 ea TOP DAILY [facility] Last Admin: 07/17/16 11:10 Dose: 1 applic Lorazepam (Ativan) 1 mg IVP Q4H PRN; Protocol PRN Reason: Seizure activity Pantoprazole Sodium (Protonix Ec Tab) 40 mg PO 0630 [facility] Last Admin: 07/18/16 06:56 Dose: 40 mg Trazodone HCl (Desyrel) 25 mg PO HS [facility] Last Admin: 07/17/16 22:08 Dose: 25 mg - Labs Labs: 07/18/16 07:00 07/18/16 07:00 PT 12.3 Seconds (9.9-11.8) H 07/05/16 16:08 INR 1.14 (0.93-1.08) H 07/05/16 16:08 APTT 29.2 Seconds (23.7-30.8) 07/05/16 16:08 - Constitutional Appears: Non-toxic, No Acute Distress - Head Exam Head Exam: ATRAUMATIC, NORMOCEPHALIC - Eye Exam Eye Exam: EOMI - ENT Exam ENT Exam: Mucous Membranes Moist - Neck Exam Neck Exam: absent: Lymphadenopathy, Thyromegaly - Respiratory Exam Respiratory Exam: Clear to Ausculation Bilateral, NORMAL BREATHING PATTERN. absent: Wheezes - Cardiovascular Exam Cardiovascular Exam: Tachycardia, REGULAR RHYTHM, +S1, +S2 - GI/Abdominal Exam GI & Abdominal Exam: Soft, Normal Bowel Sounds. absent: Tenderness - Extremities Exam Extremities Exam: absent: Joint Swelling, Tenderness - Neurological Exam Neurological Exam: Alert, Awake, Oriented x3 - Psychiatric Exam Psychiatric exam: Flat Affect, Normal Mood - Skin Skin Exam: Dry, Intact, Normal Color, Warm Assessment and Plan - Assessment and Plan (Free Text) Assessment: 35 y/o F with PMH of sickle cell, cerebral palsy, asthma, HTN and bipolar disorder presents in likely sickle cell crisis. Pt. has been stable with Hgb in the low 7's and she has had elevated Reticulocytes. Continue oxygen, IV fluids, IV Dilaudid, folic acid. Plan: 1. Sickle Cell Crisis Continue to monitor CBC and reticulocyte count in AM -Hgb is stable above 7 and reticulocytes are trending up to 22.72 -will not transfuse unless Hgb falls below 7.0 -Type & Screen -Folic Acid 1mg PO daily -Transfused 1u of blood, will follow CBC in the am Hgb jumped to 8.9 an reticulocytes dropped to 20.82 Heme/Onc Consult - Dr. Stevens - appreciate recs Hydroxyurea will be held as per last hematology note. Pt has not followed up with hematology. increase NS to 200ml/hr changed Dilaudid to 1mg q6 prn Multivitamin 2. Chest Pain Chest CT - please see full report -limited by pt. motion, no aneurysm, dissection or PE -asymmetric airspace dz with scarring at the lung bases R>L, no lobar or segmental consolidation. -Maalox prn Chest XRAY -Increased pulm vasc filiberto EKG -NSR at 76 -Mild NSSTW changes Troponins "-" x3 Echocardiogram -EF 35-40% -trace AR, mild to mod MR, mod TR -IVC dilated -no pericardial effusion, no thrombus or vegetations Psych Consult - possibly psychosomatic etiology -appreciate recs. 3. Hx of Bipolar disorder Continue Depakote 250mg PO BID Continue Trazodone 4. Hx of Asthma Continue albuterol prn added Duonebs 3ml IH q6 ARLETTE Robitussin 100mg PO q4 prn for cough 5. Insomnia Trazadone 25mg HS 6. Anorexia Dexamethasone 2mg daily PPX Protonix 40mg daily, Maalox prn SCDs Benedryl 25mg IV q6 prn Ammonium Lactate topical <Lyndsey Noble - Last Filed: 07/19/16 11:45> Objective - Vital Signs/Intake and Output Vital Signs (last 24 hours): Temp Pulse Resp BP Pulse Ox 98.4 F 81 18 133/95 H 99 07/19/16 08:05 07/19/16 08:05 07/19/16 08:05 07/19/16 08:05 07/19/16 08:05 Intake and Output: 07/19/16 07/19/16 06:59 18:59 Intake Total 480 Output Total 500 Balance -20 - Medications Medications: Current Medications Al Hydrox/Mg Hydrox/Simethicone (Maalox Plus 30 Ml) 30 ml PO DAILY PRN PRN Reason: Indigestion / Heartburn Albuterol Sulfate (Albuterol 0.083% Inhal Rika (2.5 Mg/3 Ml) Ud) 2.5 mg IH [id number] PRN PRN Reason: Shortness of Breath Last Admin: 07/06/16 16:37 Dose: 2.5 mg Albuterol/Ipratropium (Duoneb 3 Mg/0.5 Mg (3 Ml) Ud) 3 ml IH [id number] [facility] Last Admin: 07/19/16 07:50 Dose: Not Given Dexamethasone (Decadron) 2 mg PO DAILY [facility] Last Admin: 07/17/16 11:08 Dose: 2 mg Diphenhydramine HCl (Benadryl) 25 mg IVP Q6H PRN PRN Reason: Other Last Admin: 07/18/16 06:56 Dose: 25 mg Divalproex Sodium (Depakote Dr (*Bid*)) 250 mg PO BID ARLETTE PRN Reason: Protocol Last Admin: 07/17/16 18:05 Dose: 250 mg Folic Acid (Folic Acid) 1 mg PO DAILY [facility] Last Admin: 07/17/16 11:10 Dose: 1 mg Guaifenesin (Robitussin) 100 mg PO Q4H PRN PRN Reason: Cough Hydromorphone HCl (Dilaudid) 0.5 mg IVP Q6 [facility] Last Admin: 07/19/16 06:16 Dose: Not Given Sodium Chloride (Sodium Chloride 0.9%) 1,000 mls @ 150 mls/hr IV .Q6H40M [facility] Lactic Acid (Lac-Hydrin 12% Cream (140 G)) 0 ea TOP DAILY [facility] Last Admin: 07/17/16 11:10 Dose: 1 applic Lorazepam (Ativan) 1 mg IVP Q4H PRN; Protocol PRN Reason: Seizure activity Pantoprazole Sodium (Protonix Ec Tab) 40 mg PO 0630 [facility] Last Admin: 07/19/16 06:39 Dose: 40 mg Trazodone HCl (Desyrel) 25 mg PO HS [facility] Last Admin: 07/18/16 22:28 Dose: 25 mg - Labs Labs: 07/18/16 07:00 07/18/16 07:00 PT 12.3 Seconds (9.9-11.8) H 07/05/16 16:08 INR 1.14 (0.93-1.08) H 07/05/16 16:08 APTT 29.2 Seconds (23.7-30.8) 07/05/16 16:08 Attending/Attestation - Attestation I have personally seen and examined this patient.: Yes I have fully participated in the care of the patient.: Yes I have reviewed all pertinent clinical information, including history, physical exam and plan: Yes Notes (Text): I have seen and examined patient with the resident. This is 35 year old female with history of sickle cell anemia, bipolar disorder, cerebral palsy, CHF with systolic dysfunction (EF~ 40%) who was admitted with sickle cell crisis. Continue oxygen, IV fluids, IV Dilaudid and folic acid. Hydrea is on hold secondary to thrombocytopenia. Hematology evaluation with Dr. Palacios appreciated. Reticulocyte count is 20. Hb is 8.9. Continue IVF. Status post 1 unit of prbc. Avoid transfusions due to iron overload. Complains of loss of appetite. Discussed with [employer] who recommended to start dexamethasone however she refused to take that. Mild leukocytosis is secondary to crisis. Patient is afebrile and nontoxic. It seems like that she had multiple admissions in the hospital due to social issue which she does not want to discuss with us. Dr Palacios recommended psych consult. As per him, patient has been very depressed and anxious for the past 6 months due to issues with her sisters and required multiple hospitalization. She also refused to go to long-term. Patient currently resides in [facility]. Psych consult appreciated. Patient is cleared to go home. Upon discharge the patient will follow-up with PMD . Follow-up with hematology Dr. Palacios for outpatient chelation therapy. Dr Lyndsey Noble
--- NOTE | 2016-07-18 22:31 | CP.PCM.DIS ---
<Lyndsey Noble - Last Filed: 07/20/16 09:47> Provider - Provider Date of Admission: 07/06/16 22:11 Attending physician: Lyndsey Noble MD Primary care physician: Charissa Gill MD [facility] - Lab Results Lab Results: Most Recent Lab Values WBC 13.6 10^3/ul (4.5-11.0) H 07/18/16 07:00 RBC 2.83 10^6/uL (3.5-6.1) L 07/18/16 07:00 Hgb 8.9 gm/dL (12.0-16.0) L 07/18/16 07:00 Hct 25.5 % (36.0-48.0) L 07/18/16 07:00 MCV 90.1 fL (80.0-105.0) 07/18/16 07:00 MCH 31.4 pg (25.0-35.0) 07/18/16 07:00 MCHC 34.9 g/dl (31.0-37.0) 07/18/16 07:00 RDW 24.7 % (11.5-14.5) H 07/18/16 07:00 Plt Count 116 10^3/uL (120.0-450.0) L 07/18/16 07:00 MPV 10.8 fl (7.0-11.0) 07/17/16 07:00 Gran % 48.6 % (50.0-68.0) L 07/18/16 07:00 Lymph % (Auto) 41.1 % (22.0-35.0) H 07/18/16 07:00 [place] % (Auto) 8.6 % (1.0-6.0) H 07/18/16 07:00 Eos % (Auto) 1.4 % (1.5-5.0) L 07/18/16 07:00 Baso % (Auto) 0.3 % (0.0-3.0) 07/18/16 07:00 Gran # 6.58 (1.4-6.5) H 07/18/16 07:00 Lymph # 5.6 (1.2-3.4) H 07/18/16 07:00 [place] # 1.2 (0.1-0.6) H 07/18/16 07:00 Eos # 0.2 (0.0-0.7) 07/18/16 07:00 Baso # 0.04 K/mm3 (0.0-2.0) 07/18/16 07:00 Corrected WBC (Man) 11.5 K/mm3 (4.5-11.0) H 07/09/16 06:00 Neutrophils % (Manual) 48 % (50.0-70.0) L 07/09/16 06:00 Band Neutrophils % 1 % (0-2) 07/09/16 06:00 Lymphocytes % (Manual) 35 % (22.0-35.0) 07/09/16 06:00 Atypical Lymphs % 2 % (0.0-0.0) H 07/05/16 16:08 Monocytes % (Manual) 10 % (1.0-6.0) H 07/09/16 06:00 Eosinophils % (Manual) 2 % (0.0-3.0) 07/09/16 06:00 Myelocytes % 4 % 07/09/16 06:00 Nucleated RBC % 5 % 07/09/16 06:00 Platelet Evaluation Normal (NORMAL) 07/09/16 06:00 Large Platelets Present 07/05/16 16:08 Polychromasia 1+ 07/09/16 06:00 Hypochromasia 2+ 07/05/16 16:08 Poikilocytosis (manual 2+ 07/09/16 06:00 Anisocytosis (manual) 2+ 07/09/16 06:00 Microcytosis (manual) 1+ 07/05/16 16:08 Macrocytosis (manual) 1+ 07/05/16 16:08 Sickle Cells 2+ 07/09/16 06:00 Target Cells 3+ 07/09/16 06:00 Ovalocytes 1+ 07/05/16 16:08 Retic Count 20.82 % (0.5-1.5) H* 07/18/16 07:00 PT 12.3 Seconds (9.9-11.8) H 07/05/16 16:08 INR 1.14 (0.93-1.08) H 07/05/16 16:08 APTT 29.2 Seconds (23.7-30.8) 07/05/16 16:08 D-Dimer, Quantitative 0.75 mg/L FEU (0-0.50) H 07/05/16 16:08 Sodium 140 mmol/L (132-148) 07/18/16 07:00 Potassium 4.1 mmol/L (3.6-5.0) 07/18/16 07:00 Chloride 105 mmol/L (95-110) 07/18/16 07:00 Carbon Dioxide 27 mmol/L (21-33) 07/18/16 07:00 Anion Gap 12 (10-20) 07/18/16 07:00 BUN 7 mg/dL (7-21) 07/18/16 07:00 Creatinine 0.5 mg/dL (0.5-1.4) 07/18/16 07:00 Est GFR ( Amer) > 60 07/18/16 07:00 Est GFR (Non-Af Amer) > 60 07/18/16 07:00 Random Glucose 99 mg/dL (70-110) 07/18/16 07:00 Calcium 8.9 mg/dL (8.4-10.5) 07/18/16 07:00 Total Bilirubin 2.9 mg/dL (0.2-1.3) H 07/18/16 07:00 AST 107 U/L (15-39) H 07/18/16 07:00 ALT 76 U/L (7-56) H 07/18/16 07:00 Alkaline Phosphatase 110 U/L (38-133) 07/18/16 07:00 Lactate Dehydrogenase 512 U/L (333-699) 07/06/16 15:30 Total Creatine Kinase < 20 U/L (35-230) L 07/06/16 15:30 Troponin I 0.02 ng/mL 07/06/16 15:30 Total Protein 7.6 g/dL (5.8-8.3) 07/18/16 07:00 Albumin 3.6 g/dL (3.0-4.8) 07/18/16 07:00 Globulin 4.0 gm/dL 07/18/16 07:00 Albumin/Globulin Ratio 0.9 (1.1-1.8) L 07/18/16 07:00 Urine HCG, Qual Negative (NEGATIVE) 07/06/16 08:19 Blood Type B POSITIVE 07/17/16 16:02 Antibody Screen Negative 07/17/16 16:02 Crossmatch See Detail 07/17/16 16:02 BBK History Checked Patient has bt 07/17/16 16:02 Discharge Plan - Follow Up Plan Condition: STABLE Disposition: HOME/ ROUTINE Instructions: Chest Pain (ED), Chest Pain (DC), Chest Pain (GEN), Sickle Cell Crisis (DC) Additional Instructions: Pt. is medically stable for discharge. Please resume your home medications. Please return if your symptoms worsen or any new concerning symptoms arise. Please follow up with Dr. Stevens, your network operations center engineer within 1 week. Please follow up with your primary care provider within 1 week. Please eat a healthy diet and exercise regularly. Thank you for allowing us to take part in your care. Referrals: Charissa Gill MD [Primary Care Provider] - Attending/Attestation - Attestation I have personally seen and examined this patient.: Yes I have fully participated in the care of the patient.: Yes I have reviewed all pertinent clinical information, including history, physical exam and plan: Yes Notes (Text): I have seen and examined patient with the resident. This is 35 year old female with history of sickle cell anemia, bipolar disorder, cerebral palsy, CHF with systolic dysfunction (EF~ 40%) who was admitted with sickle cell crisis. She was given oxygen, IV fluids, IV Dilaudid and folic acid. Hydrea was on hold secondary to thrombocytopenia and recommend to resume at home. Hematology evaluation with Dr. Palacios appreciated. Reticulocyte count is 20. Hb is 8.9. She was given 1 unit of prbc. Avoid unnecessary transfusions due to iron overload. Today patient feels well and is agreeable to go back to [facility]. Complains of loss of appetite. Discussed with [employer] who recommended to start dexamethasone however she refused to take that. Mild leukocytosis is secondary to crisis. Patient is afebrile and nontoxic. It seems like that she had multiple admissions in the hospital due to social issue which she does not want to discuss with us. Dr Palacios recommended psych consult. As per him, patient has been very depressed and anxious for the past 6 months due to issues with her sisters and required multiple hospitalization. She also refused to go to [facility]. Patient currently resides in [facility]. Psych consult appreciated. Patient is cleared to go home. Upon discharge the patient will follow-up with PMD . Follow-up with hematology Dr. Palacios for outpatient chelation therapy. Dr Lyndsey Noble <Joao Conklin - Last Filed: 07/20/16 17:21> Provider - Provider Date of Admission: 07/06/16 22:11 Attending physician: Lyndsey Noble MD Primary care physician: Charissa Gill MD Time Spent in preparation of Discharge (in minutes): 35 Diagnosis - Discharge Diagnosis (1) Chest pain Status: Acute Hospital Course - Lab Results Lab Results: Most Recent Lab Values WBC 13.6 10^3/ul (4.5-11.0) H 07/18/16 07:00 RBC 2.83 10^6/uL (3.5-6.1) L 07/18/16 07:00 Hgb 8.9 gm/dL (12.0-16.0) L 07/18/16 07:00 Hct 25.5 % (36.0-48.0) L 07/18/16 07:00 MCV 90.1 fL (80.0-105.0) 07/18/16 07:00 MCH 31.4 pg (25.0-35.0) 07/18/16 07:00 MCHC 34.9 g/dl (31.0-37.0) 07/18/16 07:00 RDW 24.7 % (11.5-14.5) H 07/18/16 07:00 Plt Count 116 10^3/uL (120.0-450.0) L 07/18/16 07:00 MPV 10.8 fl (7.0-11.0) 07/17/16 07:00 Gran % 48.6 % (50.0-68.0) L 07/18/16 07:00 Lymph % (Auto) 41.1 % (22.0-35.0) H 07/18/16 07:00 [place] % (Auto) 8.6 % (1.0-6.0) H 07/18/16 07:00 Eos % (Auto) 1.4 % (1.5-5.0) L 07/18/16 07:00 Baso % (Auto) 0.3 % (0.0-3.0) 07/18/16 07:00 Gran # 6.58 (1.4-6.5) H 07/18/16 07:00 Lymph # 5.6 (1.2-3.4) H 07/18/16 07:00 [place] # 1.2 (0.1-0.6) H 07/18/16 07:00 Eos # 0.2 (0.0-0.7) 07/18/16 07:00 Baso # 0.04 K/mm3 (0.0-2.0) 07/18/16 07:00 Corrected WBC (Man) 11.5 K/mm3 (4.5-11.0) H 07/09/16 06:00 Neutrophils % (Manual) 48 % (50.0-70.0) L 07/09/16 06:00 Band Neutrophils % 1 % (0-2) 07/09/16 06:00 Lymphocytes % (Manual) 35 % (22.0-35.0) 07/09/16 06:00 Atypical Lymphs % 2 % (0.0-0.0) H 07/05/16 16:08 Monocytes % (Manual) 10 % (1.0-6.0) H 07/09/16 06:00 Eosinophils % (Manual) 2 % (0.0-3.0) 07/09/16 06:00 Myelocytes % 4 % 07/09/16 06:00 Nucleated RBC % 5 % 07/09/16 06:00 Platelet Evaluation Normal (NORMAL) 07/09/16 06:00 Large Platelets Present 07/05/16 16:08 Polychromasia 1+ 07/09/16 06:00 Hypochromasia 2+ 07/05/16 16:08 Poikilocytosis (manual 2+ 07/09/16 06:00 Anisocytosis (manual) 2+ 07/09/16 06:00 Microcytosis (manual) 1+ 07/05/16 16:08 Macrocytosis (manual) 1+ 07/05/16 16:08 Sickle Cells 2+ 07/09/16 06:00 Target Cells 3+ 07/09/16 06:00 Ovalocytes 1+ 07/05/16 16:08 Retic Count 20.82 % (0.5-1.5) H* 07/18/16 07:00 PT 12.3 Seconds (9.9-11.8) H 07/05/16 16:08 INR 1.14 (0.93-1.08) H 07/05/16 16:08 APTT 29.2 Seconds (23.7-30.8) 07/05/16 16:08 D-Dimer, Quantitative 0.75 mg/L FEU (0-0.50) H 07/05/16 16:08 Sodium 140 mmol/L (132-148) 07/18/16 07:00 Potassium 4.1 mmol/L (3.6-5.0) 07/18/16 07:00 Chloride 105 mmol/L (95-110) 07/18/16 07:00 Carbon Dioxide 27 mmol/L (21-33) 07/18/16 07:00 Anion Gap 12 (10-20) 07/18/16 07:00 BUN 7 mg/dL (7-21) 07/18/16 07:00 Creatinine 0.5 mg/dL (0.5-1.4) 07/18/16 07:00 Est GFR ( Amer) > 60 07/18/16 07:00 Est GFR (Non-Af Amer) > 60 07/18/16 07:00 Random Glucose 99 mg/dL (70-110) 07/18/16 07:00 Calcium 8.9 mg/dL (8.4-10.5) 07/18/16 07:00 Total Bilirubin 2.9 mg/dL (0.2-1.3) H 07/18/16 07:00 AST 107 U/L (15-39) H 07/18/16 07:00 ALT 76 U/L (7-56) H 07/18/16 07:00 Alkaline Phosphatase 110 U/L (38-133) 07/18/16 07:00 Lactate Dehydrogenase 512 U/L (333-699) 07/06/16 15:30 Total Creatine Kinase < 20 U/L (35-230) L 07/06/16 15:30 Troponin I 0.02 ng/mL 07/06/16 15:30 Total Protein 7.6 g/dL (5.8-8.3) 07/18/16 07:00 Albumin 3.6 g/dL (3.0-4.8) 07/18/16 07:00 Globulin 4.0 gm/dL 07/18/16 07:00 Albumin/Globulin Ratio 0.9 (1.1-1.8) L 07/18/16 07:00 Urine HCG, Qual Negative (NEGATIVE) 07/06/16 08:19 Blood Type B POSITIVE 07/17/16 16:02 Antibody Screen Negative 07/17/16 16:02 Crossmatch See Detail 07/17/16 16:02 BBK History Checked Patient has bt 07/17/16 16:02 - Hospital Course Hospital Course: 35 y/o F with PMH sickle cell, cerebral palsy, asthma, HTN and bipolar disorder presented to the ED for chest pain. Pt states the pain came on suddenly this morning and has had similar pain in the past. She reports the pain is located in the middle of her chest and is nonradiating. Serial Troponins were negative, EKG showed mild non-specific ST changes and chest xray showed pulm vasc congestion. Echocardiogram showed EF 35-40% with no evidence of pericardial effusion, thrombus or vegetations. Chest CT showed no evidence of aneurysm, dissection or PE. Psych was also consulted to asses there could be another cause to her hospital admission. Also, during her stay her Hgb was low, just above 7 and her reticulocytes were increasing daily. Pt. was monitored for possible sickle cell crisis, but clinically did not appear in a crisis. Pt. was transfused 1u of blood and Hgb/reticulocytes count improved markedly. She was discharged home and advised to follow up with her Hemetologist and PMD. This is a brief account of her stay. For more details please see her chart. - Date & Time of H&P Date of H&P: 07/19/16 Time of H&P: 08:20 Discharge Exam - Head Exam Head Exam: ATRAUMATIC - Eye Exam Eye Exam: EOMI - ENT Exam ENT Exam: Mucous Membranes Moist - Neck Exam Neck exam: Full Rom - Respiratory Exam Respiratory Exam: Clear to PA & Lateral, NORMAL BREATHING PATTERN, UNREMARKABLE - Cardiovascular Exam Cardiovascular Exam: REGULAR RHYTHM, RRR, +S1, +S2. absent: JVD - GI/Abdominal Exam GI & Abdominal Exam: Normal Bowel Sounds, Soft, Unremarkable. absent: Tenderness - Extremities Exam Extremities exam: pedal pulses present - Back Exam Back exam: absent: CVA tenderness (L), CVA tenderness (R), rash noted, tenderness - Neurological Exam Neurological exam: Alert, Oriented x3 - Psychiatric Exam Psychiatric exam: Agitated - Skin Skin Exam: Dry, Intact, Normal Color, Warm
[2016-07-19] MEDS: Albuterol-Ipratrop 3 mg / 0.5 (3 ml) UD IH SCH ×2 (01:37→07:50)
[2016-07-19 01:55] VITALS: RESP 18
[2016-07-19] MEDS: HYDROmorphone 0.5 mg/0.5 ml ISec IVP SCH ×2 (06:13→06:16)
[2016-07-19] MEDS: Pantoprazole 40 mg EC Tab PO SCH (06:39)
[2016-07-19 08:06] VITALS: BP 133/95; PULSE 81; TEMP 98.4; O2SAT 99
--- NOTE | 2016-07-19 11:26 | PN ---
DATE: 07/19/2016 Shortly, the patient is a 35-year-old -[place] female with long history of schizoaffective di sorder. The patient also has neurocognitive disorder. The patient was admitted on the medical side for sickle cell crisis. Psych consult was called for evaluation of mood symptoms. The patient was s een and examined initially yesterday. This technical report writer is following up on this patient today. The patien t presented to be alert. The patient denied feeling depressed, denied thoughts of harming herself or others, denied hearing voices, denied seeing things. The patient is aware of her discharge plan. T he patient does not have any behavioral disturbances. VITAL SIGNS: Stable. Blood pressure 133/95. MEDICATIONS: Reviewed. The patient is on dexamethasone, Benadryl, Depakote 250 twice a day, folic a solange, Robitussin, Dilaudid, lorazepam as needed, sodium chloride, trazodone 25 mg at the nighttime. Labs reviewed. MENTAL STATUS EXAMINATION: The patient presented to be alert. There is some psychomotor retardation . Intermittent eye contact. Speech was minimal, low volume, underproductive. Thought process seems to be concrete. Thought content: The patient denied visual, auditory, or tactile hallucinations. Denied paranoid ideations. The patient denied thoughts of harming herself or others, denied intent o r plan. Insight and judgment are limited, but impulses are well predictable. IMPRESSION: As per history, schizoaffective disorder, multiple medical issues, sickle cell crisis wh ich is improving. The patient also has neurocognitive limitation. PLAN: Continue current management. Continue current medications. The patient will be discharged to day to the residential. The patient needs to be followed up with outpatient psychiatrist within 1 wee k after discharge from the medical side. The patient seems to be not in danger to self or others. T here is no behavioral incident on the medical floor. Thank you very much for letting me participate in care of your patient. This technical report writer discussed the ca se with Dr. Raysa Noble yesterday. Fadia Odonnell MD cc: [id number] TT: 07/19/2016 11:25:24 Confirmation # [id number] Dictation # [id number] tn
== END 2016-07-19 11:59 | disposition home or self-care (01) | DRG 574 ==
LOC: ED 12:52 → EROBSV 13:46 → ERH 20:33 → 3RSO 07-06 00:17 → OBSVTOIN 07-06 22:11
PROVIDERS: ADMIT Internal Medicine; ATTEND Hospitalist
PROC: 30233N1 Transfusion of Nonautologous Red Blood Cells into Peripheral Vein, Percutaneous Approach (ICD-10-PCS; principal; 2016-07-17)
DX: D57.00 Hb-SS disease with crisis, unspecified (principal); I50.20 Unspecified systolic (congestive) heart failure; I11.0 Hypertensive heart disease with heart failure; F25.9 Schizoaffective disorder, unspecified; D69.59 Other secondary thrombocytopenia; T45.1X5A Adverse effect of antineoplastic and immunosuppressive drugs, initial encounter; G80.9 Cerebral palsy, unspecified; F31.9 Bipolar disorder, unspecified; J45.909 Unspecified asthma, uncomplicated; E83.111 Hemochromatosis due to repeated red blood cell transfusions; G47.00 Insomnia, unspecified; R63.0 Anorexia; F45.8 Other somatoform disorders; F45.41 Pain disorder exclusively related to psychological factors; R07.89 Other chest pain; Z88.6 Allergy status to analgesic agent; Z83.2 Family history of diseases of the blood and blood-forming organs and certain disorders involving the immune mechanism

== ENCOUNTER 2016-08-09 00:24 | Inpatient (IN) | payer OTHER ==
[2016-08-09 00:42] VITALS: BMI 20.7
--- NOTE | 2016-08-09 00:45 | ED PDOC ---
Arrival/HPI - General Historian: Patient - History of Present Illness Time/Duration: < week Quality: Aching Context: Home <Maryanne Michelle - Last Filed: 08/09/16 01:35> <Lobo Tong - Last Filed: 08/09/16 04:55> - General Time Seen by Provider: 08/09/16 00:32 - History of Present Illness Narrative History of Present Illness (Text): 08/09/16 00:45 This 35 year old female, whose past medical history includes cerebral palsy, bipolar disorder, depression, sickle cell disease, hypertension, anxiety, pancreatitis and asthma, presents to the emergency department complaining of upper and lower back pain x 5 days. Patient denies trauma, sob, cp, abdominal pain, pelvic pain, urinary symptoms, dizziness, recent travel or sick contact. Patient was texting when I entered her room. (Maryanne Michelle) Past Medical History - Provider Review Nursing Documentation Reviewed: Yes - Infectious Disease Hx of Infectious Diseases: None - Tetanus Immunization Tetanus Immunization: Up to Date - Cardiac Hx Cardiac Disorders: Yes Hx Angina: Yes Hx Hypertension: Yes - Pulmonary Hx Respiratory Disorders: Yes Hx Asthma: Yes Hx Bronchitis: Yes Hx Pneumonia: Yes Hx Respiratory Aspiration: Yes - Neurological Hx Neurological Disorder: No - HEENT Hx HEENT Disorder: No - Renal Hx Renal Disorder: No - Endocrine/Metabolic Hx Endocrine Disorders: Yes - Hematological/Oncological Hx Blood Disorders: Yes Hx Sickle Cell Disease: Yes Other/Comment: sickle cell - Integumentary Hx Dermatological Disorder: Yes Hx Eczema: Yes - Musculoskeletal/Rheumatological Hx Musculoskeletal Disorders: Yes Hx Back Pain: Yes Hx Falls: No Hx Unsteady Gait: Yes - Gastrointestinal Hx Gastrointestinal Disorders: Yes Hx Gastroesophageal Reflux: Yes Hx Pancreatitis: Yes - Genitourinary/Gynecological Hx Genitourinary Disorders: Yes Hx Urinary Tract Infection: Yes - Psychiatric Hx Psychophysiologic Disorder: Yes Hx Anxiety: Yes Hx Bipolar Disorder: Yes Hx Substance Use: No - Surgical History Hx Cholecystectomy: Yes Hx Splenectomy: Yes - Anesthesia Hx Anesthesia: Yes Hx Anesthesia Reactions: No Hx Malignant Hyperthermia: No - Suicidal Assessment Feels Threatened In Home Enviroment: No <Maryanne Michelle - Last Filed: 08/09/16 01:35> Family/Social History - Physician Review Nursing Documentation Reviewed: Yes Family/Social History: No Known Family HX Smoking Status: Former Smoker Hx Alcohol Use: No Hx Substance Use: No Hx Substance Use Treatment: No <Maryanne Michelle P - Last Filed: 08/09/16 01:35> Allergies/Home Meds <Maryanne Michelle P - Last Filed: 08/09/16 01:35> <Lobo Tong - Last Filed: 08/09/16 04:55> Allergies/Adverse Reactions: Allergies acetaminophen Allergy (Verified 07/01/16 16:16) RASH aspirin Allergy (Verified 07/01/16 16:16) RASH coconut oil Allergy (Verified 07/01/16 16:16) RASH morphine Allergy (Verified 07/01/16 16:16) SWELLING mushroom Allergy (Verified 07/01/16 16:16) URTICARIA oxycodone Allergy (Verified 07/01/16 16:16) RASH Review of Systems - Review of Systems Constitutional: Normal. absent: Fatigue, Weight Change, Fevers Eyes: Normal ENT: Normal Respiratory: Normal, Cough. absent: SOB, Sputum, Wheezing Cardiovascular: Normal Gastrointestinal: Normal Genitourinary Female: Normal Musculoskeletal: Back Pain, Myalgias Skin: Normal. absent: Rash Neurological: Normal. absent: Headache, Dizziness Endocrine: Normal Hemo/Lymphatic: Normal Psychiatric: Normal <Maryanne Michelle P - Last Filed: 08/09/16 01:35> Physical Exam Temperature: Afebrile Blood Pressure: Normal Pulse: Tachycardic Respiratory Rate: Normal Appearance: Positive for: Well-Appearing, Non-Toxic, Comfortable Pain Distress: None Mental Status: Positive for: Alert and Oriented X 3 - Systems Exam Head: Present: Atraumatic, Normocephalic Pupils: Present: PERRL Extroacular Muscles: Present: EOMI Conjunctiva: Present: Normal Mouth: Present: Moist Mucous Membranes Neck: Present: Normal Range of Motion. No: Meningeal Signs Respiratory/Chest: Present: Clear to Auscultation, Good Air Exchange. No: Respiratory Distress, Accessory Muscle Use Cardiovascular: Present: Regular Rate and Rhythm, Normal S1, S2. No: Murmurs Abdomen: Present: Normal Bowel Sounds. No: Tenderness, Distention, Peritoneal Signs Back: Present: Normal Inspection Upper Extremity: Present: Normal Inspection, Normal ROM, NORMAL PULSES, Neurovascularly Intact, Capillary Refill < 2s. No: Cyanosis, Edema Lower Extremity: Present: Normal Inspection, NORMAL PULSES, Normal ROM, Neurovascularly Intact, Capillary Refill < 2 s. No: Edema Neurological: Present: GCS=15, CN II-XII Intact, Speech Normal, Motor Func Grossly Intact, Normal Sensory Function, Normal Cerebellar Funct, Memory Normal Skin: Present: Warm, Dry, Normal Color. No: Rashes Psychiatric: Present: Alert, Oriented x 3, Normal Insight, Normal Concentration <Michelle,Nahim P - Last Filed: 08/09/16 01:35> Medical Decision Making Reassessment Condition: Re-examined, Improved <Michelle,Nahim P - Last Filed: 08/09/16 01:35> <Lobo Tong - Last Filed: 08/09/16 04:55> ED Course and Treatment: 08/09/16 04:52 Patient seen and evaluated. She continues to be in pain and tachycardic. Hgb is 7.8 with reticulocyte count >22%; will hold on transfusion at this time, per last hematology note. Given dilaudid with minimal relief. CXR is unchanged from previous. Will observe further for treatment of sickle cell crisis. Case discussed with Dr. Good. (Lobo Tong) - Lab Interpretations Lab Results: 08/09/16 03:19 08/09/16 03:19 Lab Results 08/09/16 03:19: Sodium 138, Potassium 4.1, Chloride 103, Carbon Dioxide 28, Anion Gap 11, BUN 10, Creatinine 0.4 L, Est GFR ( Amer) > 60, Est GFR ( Non-Af Amer) > 60, Random Glucose 98, Calcium 8.6, Total Bilirubin 3.2 H, AST 178 H, ALT 112 H, Alkaline Phosphatase 169 H, Lactate Dehydrogenase 884 H, Total Protein 8.2, Albumin 3.6, Globulin 4.6, Albumin/Globulin Ratio 0.8 L 08/09/16 03:19: WBC 11.9 H, RBC 2.30 L, Hgb 7.8 L, Hct 22.6 L, MCV 98.3, MCH 33.9, MCHC 34.5, RDW 26.8 H, Plt Count 150, MPV 11.1 H, Gran % 53.0, Lymph % ( Auto) 35.8 H, Winston % (Auto) 9.0 H, Eos % (Auto) 1.6, Baso % (Auto) 0.6, Gran # 6.30, Lymph # 4.3 H, Winston # 1.1 H, Eos # 0.2, Baso # 0.07, Retic Count 22.82 H* 08/09/16 01:07: Urine HCG, Qual Negative - RAD Interpretation Narrative RAD Interpretations (Text): 08/09/16 01:35 Chest x-rays: No infiltrates (Maryanne Michelle) Radiology Orders: 08/09/16 00:44 CXR [CHEST PORTABLE] [RAD] Stat - Medication Orders Current Medication Orders: Discontinued Medications Hydromorphone HCl (Dilaudid) 1 mg IVP STAT STA Stop: 08/09/16 01:03 Last Admin: 08/09/16 03:24 Dose: 1 mg Disposition/Present on Arrival - Present on Arrival History of DVT/PE: No History of Uncontrolled Diabetes: No Urinary Catheter: No History Surgical Site Infection Following: None <Maryanne Michelle - Last Filed: 08/09/16 01:35> - Present on Arrival Any Indicators Present on Arrival: No - Disposition Have Diagnosis and Disposition been Completed?: Yes Disposition Time: 04:40 Patient Plan: Observation <Lobo Tong - Last Filed: 08/09/16 04:55> - Disposition Diagnosis: Sickle cell pain crisis Disposition: HOSPITALIZED Condition: FAIR
[2016-08-09] MEDS ORDERED: HYDROmorphone 1 mg/ml ISec IVP STA (01:02)
[2016-08-09 03:41] LABS: ADD MANUAL DIFF? NO
[2016-08-09 03:49] LABS: BASO # 0.07 K/mm3 (0.0-2.0); BASO % 0.6 % (0.0-3.0); EOS # 0.2 (0.0-0.7); EOS % 1.6 % (1.5-5.0); LYMPH # 4.3 (1.2-3.4); LYMPH % 35.8 % (22.0-35.0); MEAN CELL VOLUME 98.3 fL (80.0-105.0); MEAN CORPUSCULAR HEMOGLOBIN 33.9 pg (25.0-35.0); MEAN CORPUSCULAR HGB CONC 34.5 g/dl (31.0-37.0); MEAN PLATELET VOLUME 11.1 fl (7.0-11.0); MONO # 1.1 (0.1-0.6); PLATELET COUNT 150 10^3/uL (120.0-450.0); RED CELL DISTRIBUTION WIDTH 26.8 % (11.5-14.5); WHITE BLOOD COUNT 11.9 10^3/ul (4.5-11.0)
[2016-08-09 03:55] LABS: ALB/GLOB RATIO 0.8 (1.1-1.8); ALKALINE PHOSPHATASE 169 U/L (38-133); ALT/SGPT 112 U/L (7-56); AST/SGOT 178 U/L (15-39); BILIRUBIN,TOTAL 3.2 mg/dL (0.2-1.3); BLOOD UREA NITROGEN 10 mg/dL (7-21); CALCIUM 8.6 mg/dL (8.4-10.5); CARBON DIOXIDE 28 mmol/L (21-33); CHLORIDE 103 mmol/L (98-107); GFR AFRICAN-AMERICAN > 60; GLUCOSE,RANDOM 98 mg/dL (70-110); POTASSIUM 4.1 mmol/L (3.6-5.0); SODIUM 138 mmol/L (132-148); TOTAL PROTEIN 8.2 g/dL (5.8-8.3)
[2016-08-09 04:02] LABS: HEMATOCRIT 22.6 % (36.0-48.0); RETIC% 22.82 % (0.5-1.5)
--- NOTE | 2016-08-09 05:03 | CP.PCM.HP ---
<Ethan Lam - Last Filed: 08/09/16 05:26> History of Present Illness - History of Present Illness History of Present Illness: CC: Pain everywhere This is a 35yo F well known to the medical service w/ a PMhx of cerebral palsy, bipolar disorder, depression, sickle cell disease, hypertension, anxiety, pancreatitis and asthma, CHF w/ EF of 35% and many social problems who is coming to the hospital complaining of pain everywhere. Upon questioning multiple times, she finally localized the majority of her pain to her back, but again states that the pain is simply 'everywhere'. she states that she is taking all of her medications as prescribed. She states she has not missed any of them. States that the tramadol that she is given as an outpatient does not help her pain at all. She denies all other symptoms; denies SOB, ABBOTT, CP, abdominal pain, N/V/D, dysuria/freq/urg, lower exrtremity pain/swelling, depression/anxiety/thoughts to hurt self or others PMhx: cerebral palsy, bipolar disorder, depression, sickle cell disease, hypertension, anxiety, pancreatitis and asthma, CHF w/ EF of 35% Meds: please refer to MAR; she did not bring her list in with her this time but all medicatoins that were given on her last admission were re-started Social: lives in a snf; was not very forthcoming about how that's going; former smoker, stopped 10 years ago; denies EtOH or other drugs Surgeries: gallbladder removal for stones Allergies: morphine and oxycodone although demanding dilaudid for pain control Present on Admission - Present on Admission Any Indicators Present on Admission: No History of DVT/PE: No History of Uncontrolled Diabetes: No Urinary Catheter: No Decubitus Ulcer Present: No Past Patient History - Infectious Disease Hx of Infectious Diseases: None - Tetanus Immunizations Tetanus Immunization: Up to Date - Past Medical History & Family History Past Medical History?: Yes - Past Social History Smoking Status: Former Smoker - CARDIAC Hx Cardiac Disorders: Yes Hx Angina: Yes Hx Hypertension: Yes - PULMONARY Hx Respiratory Disorders: Yes Hx Asthma: Yes Hx Bronchitis: Yes Hx Pneumonia: Yes Hx Respiratory Aspiration: Yes - NEUROLOGICAL Hx Neurological Disorder: No - HEENT Hx HEENT Problems: No - RENAL Hx Chronic Kidney Disease: No - ENDOCRINE/METABOLIC Hx Endocrine Disorders: Yes - HEMATOLOGICAL/ONCOLOGICAL Hx Blood Disorders: Yes Hx Sickle Cell Disease: Yes Other/Comment: sickle cell - INTEGUMENTARY Hx Dermatological Problems: Yes Hx Eczema: Yes - MUSCULOSKELETAL/RHEUMATOLOGICAL Hx Musculoskeletal Disorders: Yes Hx Back Pain: Yes Hx Falls: No Hx Unsteady Gait: Yes - GASTROINTESTINAL Hx Gastrointestinal Disorders: Yes Hx Gastroesophageal Reflux: Yes Hx Pancreatitis: Yes - GENITOURINARY/GYNECOLOGICAL Hx Genitourinary Disorders: Yes Hx Urinary Tract Infection: Yes - PSYCHIATRIC Hx Psychophysiologic Disorder: Yes Hx Anxiety: Yes Hx Bipolar Disorder: Yes Hx Substance Use: No - SURGICAL HISTORY Hx Cholecystectomy: Yes Hx Splenectomy: Yes - ANESTHESIA Hx Anesthesia: Yes Hx Anesthesia Reactions: No Hx Malignant Hyperthermia: No Meds Allergies/Adverse Reactions: Allergies Allergy/AdvReac Type Severity Reaction Status Date / Time acetaminophen Allergy RASH Verified 07/01/16 16:16 aspirin Allergy RASH Verified 07/01/16 16:16 coconut oil Allergy RASH Verified 07/01/16 16:16 morphine Allergy SWELLING Verified 07/01/16 16:16 mushroom Allergy URTICARIA Verified 07/01/16 16:16 oxycodone Allergy RASH Verified 07/01/16 16:16 Physical Exam - Constitutional Appears: Well, Non-toxic Additional comments: lethargic female responding appropriately to questions, able to move all extremities in no obvious signs of distress - Head Exam Head Exam: ATRAUMATIC - Eye Exam Eye Exam: EOMI - ENT Exam ENT Exam: Mucous Membranes Moist - Respiratory Exam Respiratory Exam: Clear to Auscultation Bilateral, NORMAL BREATHING PATTERN. absent: Rales, Rhonchi, Wheezes - Cardiovascular Exam Cardiovascular Exam: REGULAR RHYTHM - GI/Abdominal Exam GI & Abdominal Exam: Normal Bowel Sounds, Soft. absent: Tenderness - Rectal Exam Rectal Exam: Deferred - Extremities Exam Extremities exam: Positive for: normal inspection. Negative for: calf tenderness, pedal edema - Back Exam Back exam: NORMAL INSPECTION. absent: CVA tenderness (L), CVA tenderness (R) - Neurological Exam Neurological exam: Alert, Oriented x3 - Psychiatric Exam Psychiatric exam: Normal Affect - Skin Skin Exam: Intact Results - Vital Signs Recent Vital Signs: Last Vital Signs Temp 98.3 F 08/09/16 00:46 Pulse 107 H 08/09/16 00:46 Resp 18 08/09/16 00:46 BP 124/84 08/09/16 00:46 Pulse Ox 98 08/09/16 00:46 - Labs Result Diagrams: 08/09/16 03:19 08/09/16 03:19 Assessment & Plan - Assessment and Plan (Free Text) Assessment: 35yo F admitted for intractable pain 2/2 to sickle cell disease Intractable Pain -This patients labs in terms of hemoglobin and reticulocyte count are at what seems her baseline on last discharge -pain seeking behavior; patient demanding dilaudid -dilaudid ordered with benadryl; patient only taking tramadol at home -patient is resting comfortably in bed, was sleeping for the majority of the night cerebral palsy -patient is only ambulatory with wheelchair bipolar disorder -will continue with depakote Sickle cell disease/Crisis -Heme Onc Consult; Dr Palacios; Recs appreciated -retic count at baseline hypertension -metoprolol and lisinopril ordered asthma, -PRN albuterol CHF w/ EF of 35% -metoprolol 12.5mg BID -lisinopril 2.5mg daily Prophylaxis -Lovenox SC -Pepcid -heart healthy diet Case discussed with Dr. Latisha Lam PGY1 Night Float Decision To Admit - Pt Status Changed To: Hospital Disposition Of: Observation - . Bed Request Type: Med/Surg Admitting Physician: Brittnee Good <Brittnee Good - Last Filed: 08/10/16 03:38> Results - Vital Signs Recent Vital Signs: Last Vital Signs Temp 98 F 08/09/16 16:00 Pulse 86 08/09/16 17:58 Resp 16 08/09/16 16:00 BP 120/85 08/09/16 17:58 Pulse Ox 99 08/09/16 16:00 - Labs Result Diagrams: 08/09/16 03:19 08/09/16 03:19 Attending/Attestation - Attestation I have personally seen and examined this patient.: Yes I have fully participated in the care of the patient.: Yes I have reviewed all pertinent clinical information: Yes Notes (Text): 08/10/16 03:37 Patient was [facility] in [facility] [place] Agree with history, physical examination, assessment and plan.
[2016-08-09] MEDS ORDERED: Albuterol 0.083% Inhal Sol (2.5 mg/3 mL) UD IH PRN ×2 (05:04→05:20)
[2016-08-09] MEDS ORDERED: Sodium Chloride 0.9% 1,000 ML IV SCH (05:15)
[2016-08-09] MEDS ORDERED: DiphenhydrAMINE 50 mg/ml Inj IVP PRN (05:20)
[2016-08-09] MEDS: HYDROmorphone 2 mg/ml ISec IVP PRN ×2 (08:10→12:41)
--- NOTE | 2016-08-09 09:16 | RAD ---
HISTORY: cough COMPARISON: 07/06/2016 FINDINGS: LUNGS: No active pulmonary disease. PLEURA: No significant pleural effusion identified, no pneumothorax apparent. CARDIOVASCULAR: Mild cardiomegaly OSSEOUS STRUCTURES: No significant abnormalities. VISUALIZED UPPER ABDOMEN: Normal. OTHER FINDINGS: Right-sided Port-A-Cath IMPRESSION: No active disease.
[2016-08-09] MEDS: Multivitamin With Minerals Tab PO SCH ×2 (10:23→12:24)
[2016-08-09] MEDS: Divalproex 250 mg DR (BID formulation) PO SCH ×3 (10:23→18:01)
[2016-08-09] MEDS: Sodium Chloride 0.9% 1,000 ML IV SCH ×2 (12:21→17:39)
[2016-08-09] MEDS: Aluminum Hydrox Gel 320 mg/5 ml Susp(480 ml) PO SCH (13:50)
[2016-08-09] MEDS: HYDROmorphone 1 mg/ml ISec IVP PRN ×2 (18:11→21:46)
[2016-08-09] MEDS: Mometasone 220 mcg/puff-14 puff Inh IH SCH (20:16)
[2016-08-09] MEDS: DiphenhydrAMINE 50 mg/ml Inj IVP PRN (21:45)
[2016-08-10] MEDS: HYDROmorphone 1 mg/ml ISec IVP PRN ×6 (01:19→21:16)
[2016-08-10] MEDS: DiphenhydrAMINE 50 mg/ml Inj IVP PRN ×4 (04:47→21:17)
[2016-08-10 06:58] LABS: ADD MANUAL DIFF? NO
[2016-08-10 07:11] LABS: BASO # 0.04 K/mm3 (0.0-2.0); BASO % 0.3 % (0.0-3.0); EOS # 0.2 (0.0-0.7); EOS % 1.3 % (1.5-5.0); GRAN # 6.27 (1.4-6.5); GRAN % 52.2 % (50.0-68.0); LYMPH # 4.4 (1.2-3.4); LYMPH % 36.9 % (22.0-35.0); MEAN CORPUSCULAR HEMOGLOBIN 33.2 pg (25.0-35.0); MEAN CORPUSCULAR HGB CONC 33.5 g/dl (31.0-37.0); MEAN PLATELET VOLUME 10.7 fl (7.0-11.0); MONO # 1.1 (0.1-0.6); MONO % 9.3 % (1.0-6.0); PLATELET COUNT 131 10^3/uL (120.0-450.0); RED CELL DISTRIBUTION WIDTH 25.2 % (11.5-14.5)
[2016-08-10 07:19] LABS: ALB/GLOB RATIO 0.8 (1.1-1.8); ALKALINE PHOSPHATASE 148 U/L (38-133); ALT/SGPT 108 U/L (7-56); AST/SGOT 160 U/L (15-39); BILIRUBIN,TOTAL 2.6 mg/dL (0.2-1.3); BLOOD UREA NITROGEN 10 mg/dL (7-21); CALCIUM 8.1 mg/dL (8.4-10.5); CARBON DIOXIDE 25 mmol/L (21-33); CHLORIDE 110 mmol/L (98-107); GFR AFRICAN-AMERICAN > 60; GLUCOSE,RANDOM 92 mg/dL (70-110); MAGNESIUM 1.8 mg/dL (1.7-2.2); POTASSIUM 4.4 mmol/L (3.6-5.0); SODIUM 139 mmol/L (132-148); TOTAL PROTEIN 7.6 g/dL (5.8-8.3)
[2016-08-10 07:25] LABS: HEMATOCRIT 20.6 % (36.0-48.0)
[2016-08-10 07:26] LABS: RETIC% 21.06 % (0.5-1.5)
[2016-08-10] MEDS: Divalproex 250 mg DR (BID formulation) PO SCH ×2 (09:00→17:16)
[2016-08-10] MEDS: Aluminum Hydrox Gel 320 mg/5 ml Susp(480 ml) PO SCH (09:01)
[2016-08-10] MEDS: Multivitamin With Minerals Tab PO SCH (09:01)
[2016-08-10] MEDS ORDERED: guaiFENesin 200 mg/10 ml Syrup UD PO PRN (12:09)
--- NOTE | 2016-08-10 12:10 | CP.PCM.PN ---
<Alberto Duvall - Last Filed: 08/10/16 12:07> Subjective - Date & Time of Evaluation Date of Evaluation: 08/10/16 Time of Evaluation: 09:30 - Subjective Subjective: Hospitalist Progress note: Pt seen and examined at bedside. No acute events overnight. Pt c/o of mild chest pain associated with sickle cell worse with cough. No other complaints. Pt denies any al, dizziness, f/c, sob, abd pain, n/v/d. Objective - Vital Signs/Intake and Output Vital Signs (last 24 hours): Temp Pulse Resp BP Pulse Ox 98 F 83 16 115/69 99 08/09/16 16:00 08/10/16 09:08 08/09/16 16:00 08/10/16 09:08 08/09/16 16:00 Intake and Output: 08/10/16 08/10/16 06:59 18:59 Intake Total 420 Balance 420 - Medications Medications: Current Medications Acetaminophen (Tylenol 325mg Tab) 650 mg PO Q6H PRN PRN Reason: Fever >100.4 F Albuterol Sulfate (Albuterol 0.083% Inhal Rika (2.5 Mg/3 Ml) Ud) 2.5 mg IH Q2H PRN PRN Reason: SOb Aluminum Hydroxide (Aluminum Hydroxide Gel 320mg /5ml Susp (Bulk)) 30 ml PO DAILY [facility] Last Admin: 08/10/16 09:01 Dose: Not Given Diphenhydramine HCl (Benadryl) 25 mg IVP Q4H PRN PRN Reason: Allergy symptoms Last Admin: 08/10/16 04:47 Dose: 25 mg Divalproex Sodium (Depakote Dr (*Bid*)) 250 mg PO BID [facility]LETTE PRN Reason: Protocol Last Admin: 08/10/16 09:00 Dose: 250 mg Famotidine (Pepcid) 20 mg PO BID [facility] Last Admin: 08/10/16 09:01 Dose: 20 mg Folic Acid (Folic Acid) 1 mg PO DAILY [facility] Last Admin: 08/10/16 09:01 Dose: 1 mg Hydromorphone HCl (Dilaudid) 1 mg IVP Q4H PRN PRN Reason: Pain, severe (8-10) Last Admin: 08/10/16 09:06 Dose: 1 mg Sodium Chloride (Sodium Chloride 0.9%) 1,000 mls @ 200 mls/hr IV .Q5H [facility] Last Admin: 08/09/16 17:39 Dose: 200 mls/hr Lisinopril (Zestril) 2.5 mg PO DAILY [facility] Last Admin: 08/10/16 09:08 Dose: 2.5 mg Metoprolol Tartrate (Lopressor) 12.5 mg PO BID [facility] Last Admin: 08/10/16 09:07 Dose: 12.5 mg Mometasone Furoate (Asmanex Twisthaler 220 Mcg) 1 puff IH QPM [facility] Last Admin: 08/09/16 20:16 Dose: 1 puff Multivitamins/Minerals (Therapeutic-M Tab) 1 tab PO 0800 [facility] Last Admin: 08/10/16 09:01 Dose: 1 tab Tramadol HCl (Ultram) 50 mg PO TID [facility] Last Admin: 08/10/16 09:01 Dose: Not Given - Labs Labs: 08/10/16 06:45 08/10/16 06:45 - Constitutional Appears: Well, No Acute Distress - Head Exam Head Exam: ATRAUMATIC, NORMAL INSPECTION, NORMOCEPHALIC - Eye Exam Eye Exam: EOMI, Normal appearance, PERRL - ENT Exam ENT Exam: Mucous Membranes Moist, Normal Exam - Neck Exam Neck Exam: Full ROM, Normal Inspection. absent: Lymphadenopathy - Respiratory Exam Respiratory Exam: Clear to Ausculation Bilateral, NORMAL BREATHING PATTERN. absent: Wheezes - Cardiovascular Exam Cardiovascular Exam: REGULAR RHYTHM, RRR, +S1, +S2. absent: Murmur - GI/Abdominal Exam GI & Abdominal Exam: Soft, Normal Bowel Sounds. absent: Distended, Tenderness - Extremities Exam Extremities Exam: Full ROM, Normal Capillary Refill, Normal Inspection. absent : Joint Swelling, Pedal Edema - Back Exam Back Exam: NORMAL INSPECTION - Neurological Exam Neurological Exam: Alert, Awake, Oriented x3 - Psychiatric Exam Psychiatric exam: Normal Affect, Normal Mood - Skin Skin Exam: Dry, Intact, Normal Color, Warm Assessment and Plan - Assessment and Plan (Free Text) Assessment: 35yo F with pmh of cerebral palsy, bipolar disorder, depression, sickle cell disease, hypertension, anxiety, pancreatitis and asthma, CHF w/ EF of 35% admitted for intractable pain 2/2 to sickle cell disease. 1. Intractable Pain 2/2 sickle cell dx - Cont Dilaudid 1mg Q4H for pain - D/ivonne Tramadol - Cont NS @ 200 2. Anemia - 2/2 Sickle cell disease - Hb of 7.8--> 6.9 - Conent for blood obtained; Ordered 1 unit PRBC -Heme Onc Consult; Dr Palacios; Recs appreciated -retic count 22.82-->21.06 - Monitor CBC and retic count 3. cerebral palsy -patient is only ambulatory with wheelchair 4. bipolar disorder -will continue with depakote 5. hypertension - Cont metoprolol and lisinopril 6. asthma, - PRN albuterol 7. CHF w/ EF of 35% -metoprolol 12.5mg BID -lisinopril 2.5mg daily 8. Prophylaxis - SCD & Pepcid -heart healthy diet Case and plan was seen reviewed and discussed in detail with Dr Green. <Marco Green - Last Filed: 08/10/16 12:54> Objective - Vital Signs/Intake and Output Vital Signs (last 24 hours): Temp Pulse Resp BP Pulse Ox 98 F 83 16 115/69 99 08/09/16 16:00 08/10/16 09:08 08/09/16 16:00 08/10/16 09:08 08/09/16 16:00 Intake and Output: 08/10/16 08/10/16 06:59 18:59 Intake Total 420 Balance 420 - Medications Medications: Current Medications Acetaminophen (Tylenol 325mg Tab) 650 mg PO Q6H PRN PRN Reason: Fever >100.4 F Albuterol Sulfate (Albuterol 0.083% Inhal Rika (2.5 Mg/3 Ml) Ud) 2.5 mg IH Q2H PRN PRN Reason: SOb Aluminum Hydroxide (Aluminum Hydroxide Gel 320mg /5ml Susp (Bulk)) 30 ml PO DAILY [facility] Last Admin: 08/10/16 09:01 Dose: Not Given Diphenhydramine HCl (Benadryl) 25 mg IVP Q4H PRN PRN Reason: Allergy symptoms Last Admin: 08/10/16 04:47 Dose: 25 mg Divalproex Sodium (Depakote Dr (*Bid*)) 250 mg PO BID ARLETTE PRN Reason: Protocol Last Admin: 08/10/16 09:00 Dose: 250 mg Famotidine (Pepcid) 20 mg PO BID [facility] Last Admin: 08/10/16 09:01 Dose: 20 mg Folic Acid (Folic Acid) 1 mg PO DAILY [facility] Last Admin: 08/10/16 09:01 Dose: 1 mg Guaifenesin (Robitussin) 200 mg PO Q4H PRN PRN Reason: Cough and congestion Hydromorphone HCl (Dilaudid) 1 mg IVP Q4H PRN PRN Reason: Pain, severe (8-10) Last Admin: 08/10/16 09:06 Dose: 1 mg Sodium Chloride (Sodium Chloride 0.9%) 1,000 mls @ 200 mls/hr IV .Q5H [facility] Last Admin: 08/09/16 17:39 Dose: 200 mls/hr Lisinopril (Zestril) 2.5 mg PO DAILY [facility] Last Admin: 08/10/16 09:08 Dose: 2.5 mg Metoprolol Tartrate (Lopressor) 12.5 mg PO BID [facility] Last Admin: 08/10/16 09:07 Dose: 12.5 mg Mometasone Furoate (Asmanex Twisthaler 220 Mcg) 1 puff IH QPM [facility] Last Admin: 08/09/16 20:16 Dose: 1 puff Multivitamins/Minerals (Therapeutic-M Tab) 1 tab PO 0800 [facility] Last Admin: 08/10/16 09:01 Dose: 1 tab - Labs Labs: 08/10/16 06:45 08/10/16 06:45 Attending/Attestation - Attestation I have personally seen and examined this patient.: Yes I have fully participated in the care of the patient.: Yes I have reviewed all pertinent clinical information, including history, physical exam and plan: Yes Notes (Text): 08/10/16 12:50 35 year old female with past medical history of sickle cell disease, hypertension, asthma, cerebral palsy, and bipolar/depression who presented with sickle cell crisis. Continue with iv fluids and analgesics. Hematology evaluation is pending. Hemoglobin is 6.9 today and she has consented for 1 unit of prbc transfusion. Will monitor closely as she has history of iron overload due to multiple transfusions in the past. Marco Green MD Hospitalist.
[2016-08-10] MEDS: Sodium Chloride 0.9% 1,000 ML IV SCH ×3 (13:12→23:00)
[2016-08-10] MEDS: Mometasone 220 mcg/puff-14 puff Inh IH SCH (17:16)
[2016-08-11] MEDS: HYDROmorphone 1 mg/ml ISec IVP PRN ×6 (01:32→21:56)
[2016-08-11] MEDS: DiphenhydrAMINE 50 mg/ml Inj IVP PRN ×4 (01:39→21:56)
[2016-08-11 06:21] LABS: URINE BILIRUBIN NEGATIVE (NEGATIVE); URINE BLOOD TRACE-INTACT (NEGATIVE); URINE GLUCOSE (UA) NEGATIVE (NEGATIVE); URINE KETONE NEGATIVE (NEGATIVE); URINE LEUKOCYTE ESTERASE NEGATIVE Leu/uL (NEGATIVE); URINE PROTEIN NEGATIVE mg/dL (<30 mg/dL)
[2016-08-11 06:25] LABS: URINE APPEARANCE CLEAR (CLEAR); URINE COLOR YELLOW (YELLOW)
[2016-08-11 06:45] LABS: URINE BACTERIA RARE (NEG); URINE EPITHELIAL CELLS 0 - 2 /hpf (0-5); URINE RBC 0 - 2 /hpf (0-2)
[2016-08-11 07:50] LABS: ADD MANUAL DIFF? NO
[2016-08-11 08:18] LABS: ALB/GLOB RATIO 0.8 (1.1-1.8); ALKALINE PHOSPHATASE 154 U/L (38-133); ALT/SGPT 100 U/L (7-56); AST/SGOT 145 U/L (15-39); BILIRUBIN,TOTAL 2.7 mg/dL (0.2-1.3); BLOOD UREA NITROGEN 11 mg/dL (7-21); CALCIUM 8.3 mg/dL (8.4-10.5); CARBON DIOXIDE 24 mmol/L (21-33); CHLORIDE 106 mmol/L (95-110); GFR AFRICAN-AMERICAN > 60; GLUCOSE,RANDOM 78 mg/dL (70-110); POTASSIUM 4.2 mmol/L (3.6-5.0); SODIUM 136 mmol/L (132-148); TOTAL PROTEIN 7.3 g/dL (5.8-8.3)
[2016-08-11 08:21] LABS: BASO # 0.03 K/mm3 (0.0-2.0); BASO % 0.3 % (0.0-3.0); EOS # 0.2 (0.0-0.7); GRAN # 4.95 (1.4-6.5); GRAN % 44.7 % (50.0-68.0); LYMPH # 4.6 (1.2-3.4); LYMPH % 41.9 % (22.0-35.0); MEAN CELL VOLUME 95.8 fL (80.0-105.0); MEAN CORPUSCULAR HEMOGLOBIN 33.1 pg (25.0-35.0); MEAN CORPUSCULAR HGB CONC 34.5 g/dl (31.0-37.0); MEAN PLATELET VOLUME 10.5 fl (7.0-11.0); MONO # 1.2 (0.1-0.6); MONO % 11.1 % (1.0-6.0); PLATELET COUNT 118 10^3/uL (120.0-450.0); WHITE BLOOD COUNT 11.1 10^3/ul (4.5-11.0)
[2016-08-11 08:25] LABS: RETIC% 16.63 % (0.5-1.5)
[2016-08-11 08:58] LABS: HEMATOCRIT 22.6 % (36.0-48.0)
[2016-08-11] MEDS: Divalproex 250 mg DR (BID formulation) PO SCH ×2 (10:03→18:22)
[2016-08-11] MEDS: Multivitamin With Minerals Tab PO SCH (10:04)
[2016-08-11] MEDS: Aluminum Hydrox Gel 320 mg/5 ml Susp(480 ml) PO SCH (10:05)
--- NOTE | 2016-08-11 12:08 | CP.PCM.PN ---
<Rafat Vega - Last Filed: 08/11/16 12:10> Subjective - Date & Time of Evaluation Date of Evaluation: 08/11/16 Time of Evaluation: 12:05 - Subjective Subjective: Medicine progress note. Attending: Dr. Green. Pt seen/examined at bedside. No acute distress. Pt still in some pain. Retic count improving, s/p 1 unit of blood that had to arrive from [place]. Will f/u CBC. Objective - Vital Signs/Intake and Output Vital Signs (last 24 hours): Temp Pulse Resp BP Pulse Ox 98 F 91 H 18 115/78 99 08/11/16 08:26 08/11/16 10:12 08/11/16 08:26 08/11/16 10:12 08/11/16 08:26 Intake and Output: 08/11/16 08/11/16 06:59 18:59 Intake Total 1317 Output Total 400 Balance 917 - Medications Medications: Current Medications Acetaminophen (Tylenol 325mg Tab) 650 mg PO Q6H PRN PRN Reason: Fever >100.4 F Albuterol Sulfate (Albuterol 0.083% Inhal Rika (2.5 Mg/3 Ml) Ud) 2.5 mg IH Q2H PRN PRN Reason: SOb Aluminum Hydroxide (Aluminum Hydroxide Gel 320mg /5ml Susp (Bulk)) 30 ml PO DAILY [facility] Last Admin: 08/11/16 10:05 Dose: Not Given Diphenhydramine HCl (Benadryl) 25 mg IVP Q4H PRN PRN Reason: Allergy symptoms Last Admin: 08/11/16 10:04 Dose: 25 mg Divalproex Sodium (Depakote Dr (*Bid*)) 250 mg PO BID [facility] PRN Reason: Protocol Last Admin: 08/11/16 10:03 Dose: 250 mg Famotidine (Pepcid) 20 mg PO BID [facility] Last Admin: 08/11/16 10:04 Dose: 20 mg Folic Acid (Folic Acid) 1 mg PO DAILY [facility] Last Admin: 08/11/16 10:03 Dose: 1 mg Guaifenesin (Robitussin) 200 mg PO Q4H PRN PRN Reason: Cough and congestion Hydromorphone HCl (Dilaudid) 1 mg IVP Q4H PRN PRN Reason: Pain, severe (8-10) Last Admin: 08/11/16 10:04 Dose: 1 mg Sodium Chloride (Sodium Chloride 0.9%) 1,000 mls @ 100 mls/hr IV .Q10H [facility] Last Admin: 08/10/16 23:00 Dose: 100 mls/hr Lisinopril (Zestril) 2.5 mg PO DAILY [facility] Last Admin: 08/11/16 10:04 Dose: 2.5 mg Metoprolol Tartrate (Lopressor) 12.5 mg PO BID [facility] Last Admin: 08/11/16 10:04 Dose: 12.5 mg Mometasone Furoate (Asmanex Twisthaler 220 Mcg) 1 puff IH QPM [facility] Last Admin: 08/10/16 17:16 Dose: 1 puff Multivitamins/Minerals (Therapeutic-M Tab) 1 tab PO 0800 [facility] Last Admin: 08/11/16 10:04 Dose: 1 tab - Labs Labs: 08/11/16 07:50 08/11/16 07:50 - Constitutional Appears: Non-toxic, No Acute Distress - Head Exam Head Exam: ATRAUMATIC, NORMAL INSPECTION, NORMOCEPHALIC - Eye Exam Eye Exam: EOMI - ENT Exam ENT Exam: Mucous Membranes Moist - Neck Exam Neck Exam: Full ROM, Normal Inspection - Respiratory Exam Respiratory Exam: NORMAL BREATHING PATTERN. absent: Respiratory Distress - Cardiovascular Exam Cardiovascular Exam: +S1, +S2 - GI/Abdominal Exam GI & Abdominal Exam: Tenderness, Normal Bowel Sounds Additional comments: Mild tenderness to palpation - Extremities Exam Extremities Exam: Full ROM, Normal Inspection - Neurological Exam Neurological Exam: Alert, Awake, Oriented x3 - Psychiatric Exam Psychiatric exam: Flat Affect - Skin Skin Exam: Dry, Intact, Normal Color, Warm Assessment and Plan - Assessment and Plan (Free Text) Assessment: This is a 35 yo female with past medical hx of cerebral palsy, bipolar disorder , depression, sickle cell disease, hypertension, anxiety, pancreatitis and asthma, CHF w/ EF of 35% admitted for intractable pain 2/2 to sickle cell disease. 1. Intractable Pain 2/2 sickle cell dx - Cont Dilaudid 1mg Q4H for pain - D/ivonne Tramadol - Cont NS @ 200>> will decrease fluids in light of CHF hx 2. Anemia - 2/2 Sickle cell disease -Heme Onc Consult; Dr Palacios; Recs appreciated -retic count trending down -s/p 1 unit; will f/u CBC to monitor for stability - Monitor CBC and retic count -continue folic acid daily 3. cerebral palsy -patient is only ambulatory with wheelchair -continue to monitor 4. bipolar disorder -will continue with depakote 5. hypertension - Continue metoprolol and lisinopril 6. asthma, - PRN albuterol 7. CHF w/ EF of 35% -metoprolol 12.5mg BID -lisinopril 2.5mg daily -will decrease fluid rate. 8. Prophylaxis - SCD & Pepcid -heart healthy diet Case and plan was seen reviewed and discussed in detail with Dr Green. <Marco Green - Last Filed: 08/12/16 09:04> Objective - Vital Signs/Intake and Output Vital Signs (last 24 hours): Temp Pulse Resp BP Pulse Ox 97.7 F 106 H 16 123/81 92 L 08/12/16 07:30 08/12/16 07:30 08/12/16 07:30 08/12/16 07:30 08/12/16 07:30 Intake and Output: 08/12/16 08/12/16 06:59 18:59 Intake Total 600 Balance 600 - Medications Medications: Current Medications Acetaminophen (Tylenol 325mg Tab) 650 mg PO Q6H PRN PRN Reason: Fever >100.4 F Albuterol Sulfate (Albuterol 0.083% Inhal Rika (2.5 Mg/3 Ml) Ud) 2.5 mg IH Q2H PRN PRN Reason: SOb Aluminum Hydroxide (Aluminum Hydroxide Gel 320mg /5ml Susp (Bulk)) 30 ml PO DAILY [facility] Last Admin: 08/11/16 10:05 Dose: Not Given Benzonatate (Tessalon Perles) 100 mg PO BID PRN PRN Reason: Cough Diphenhydramine HCl (Benadryl) 25 mg IVP Q4H PRN PRN Reason: Allergy symptoms Last Admin: 08/12/16 07:03 Dose: 25 mg Divalproex Sodium (Depmichael Dumont (*Bid*)) 250 mg PO BID [facility] PRN Reason: Protocol Last Admin: 08/11/16 18:22 Dose: 250 mg Famotidine (Pepcid) 20 mg PO BID [facility] Last Admin: 06/18/17 18:22 Dose: 20 mg Folic Acid (Folic Acid) 1 mg PO DAILY [facility] Last Admin: 08/11/16 10:03 Dose: 1 mg Guaifenesin (Robitussin) 200 mg PO Q4H PRN PRN Reason: Cough and congestion Hydromorphone HCl (Dilaudid) 1 mg IVP Q4H PRN PRN Reason: Pain, severe (8-10) Last Admin: 08/12/16 07:03 Dose: 1 mg Sodium Chloride (Sodium Chloride 0.9%) 1,000 mls @ 100 mls/hr IV .Q10H [facility] Last Admin: 08/12/16 01:24 Dose: 100 mls/hr Lisinopril (Zestril) 2.5 mg PO DAILY [facility] Last Admin: 08/11/16 10:04 Dose: 2.5 mg Metoclopramide HCl (Reglan) 10 mg IVP Q8H PRN PRN Reason: Vomitus Metoprolol Tartrate (Lopressor) 12.5 mg PO BID [facility] Last Admin: 08/11/16 18:23 Dose: 12.5 mg Mometasone Furoate (Asmanex Twisthaler 220 Mcg) 1 puff IH QPM [facility] Last Admin: 08/11/16 18:22 Dose: 1 puff Multivitamins/Minerals (Therapeutic-M Tab) 1 tab PO 1000 [facility] Ondansetron HCl (Zofran Inj) 8 mg IVP Q6H PRN PRN Reason: Nausea/Vomiting Last Admin: 08/12/16 07:02 Dose: 8 mg - Labs Labs: 08/12/16 07:00 08/12/16 07:00 Attending/Attestation - Attestation I have personally seen and examined this patient.: Yes I have fully participated in the care of the patient.: Yes I have reviewed all pertinent clinical information, including history, physical exam and plan: Yes Notes (Text): 08/11/16 35 year old female with past medical history of sickle cell disease, hypertension, asthma, cerebral palsy, and bipolar/depression who presented with sickle cell crisis. Continue with iv fluids and analgesics. Hematology evaluation is pending. Hemoglobin was 6.9 yesterday who which she received 1 unit of prbc transfusion. Repeat hemoglobin today is 7.8. Will monitor closely as she has history of iron overload due to multiple transfusions in the past. Reticulocyte count also improved today to 16.63. Marco Green MD Hospitalist.
[2016-08-11] MEDS: Sodium Chloride 0.9% 1,000 ML IV SCH (14:09)
[2016-08-11] MEDS: Mometasone 220 mcg/puff-14 puff Inh IH SCH (18:22)
--- NOTE | 2016-08-11 23:36 | CP.PCM.CON ---
History of Present Illness - History of Present Illness History of Present Illness: 35 year old female with a history of sickle cell anemia and bipolar disorder, admitted with sickle cell pain crisis. She has been admitted more frequently from her baseline. She reports she has been having sharp chest pain and diffuse bone pain. She denies fevers and chills. She has no shortness of breath. Past medical history: Sickle cell disease, bipolar disorder. Past surgical history: portacath removal, cholecystectomy Family history: Both parents have sickle trait. Social history: Denies tobacco, alcohol, and illicit drug use. Allergies: Acetaminophen, aspirin, oxycodone. Review of systems: All remaining ROS including HEENT, cardiovascular, respiratory, gastrointestinal, genitourinary, musculoskeletal, dermatologic, neurologic, and psychiatric are negative unless mentioned in the HPI. Past Patient History - Infectious Disease Hx of Infectious Diseases: None - Tetanus Immunizations Tetanus Immunization: Up to Date - Past Medical History & Family History Past Medical History?: Yes - Past Social History Smoking Status: Former Smoker - CARDIAC Hx Angina: Yes Hx Hypertension: Yes - PULMONARY Hx Asthma: Yes - NEUROLOGICAL Hx Neurological Disorder: No - HEENT Hx HEENT Problems: No - RENAL Hx Chronic Kidney Disease: No - ENDOCRINE/METABOLIC Hx Endocrine Disorders: Yes - HEMATOLOGICAL/ONCOLOGICAL Hx Anemia: Yes - INTEGUMENTARY Hx Dermatological Problems: Yes Hx Eczema: Yes - MUSCULOSKELETAL/RHEUMATOLOGICAL Hx Falls: No - GASTROINTESTINAL Hx Gastrointestinal Disorders: Yes Hx Gastroesophageal Reflux: Yes Hx Pancreatitis: Yes - GENITOURINARY/GYNECOLOGICAL Hx Genitourinary Disorders: Yes Hx Urinary Tract Infection: Yes - PSYCHIATRIC Hx Substance Use: No - SURGICAL HISTORY Hx Cholecystectomy: Yes Hx Splenectomy: Yes - ANESTHESIA Hx Anesthesia: Yes Hx Anesthesia Reactions: No Hx Malignant Hyperthermia: No Meds Allergies/Adverse Reactions: Allergies Allergy/AdvReac Type Severity Reaction Status Date / Time acetaminophen Allergy RASH Verified 07/01/16 16:16 aspirin Allergy RASH Verified 07/01/16 16:16 coconut oil Allergy RASH Verified 07/01/16 16:16 morphine Allergy SWELLING Verified 07/01/16 16:16 mushroom Allergy URTICARIA Verified 07/01/16 16:16 oxycodone Allergy RASH Verified 07/01/16 16:16 - Medications Medications: Current Medications Acetaminophen (Tylenol 325mg Tab) 650 mg PO Q6H PRN PRN Reason: Fever >100.4 F Albuterol Sulfate (Albuterol 0.083% Inhal Rika (2.5 Mg/3 Ml) Ud) 2.5 mg IH Q2H PRN PRN Reason: SOb Aluminum Hydroxide (Aluminum Hydroxide Gel 320mg /5ml Susp (Bulk)) 30 ml PO DAILY [facility] Last Admin: 08/11/16 10:05 Dose: Not Given Benzonatate (Tessalon Perles) 100 mg PO BID PRN PRN Reason: Cough Diphenhydramine HCl (Benadryl) 25 mg IVP Q4H PRN PRN Reason: Allergy symptoms Last Admin: 08/11/16 21:56 Dose: 25 mg Divalproex Sodium (Depakote Dr (*Bid*)) 250 mg PO BID [facility] PRN Reason: Protocol Last Admin: 08/11/16 18:22 Dose: 250 mg Famotidine (Pepcid) 20 mg PO BID [facility] Last Admin: 08/11/16 18:22 Dose: 20 mg Folic Acid (Folic Acid) 1 mg PO DAILY [facility] Last Admin: 08/11/16 10:03 Dose: 1 mg Guaifenesin (Robitussin) 200 mg PO Q4H PRN PRN Reason: Cough and congestion Hydromorphone HCl (Dilaudid) 1 mg IVP Q4H PRN PRN Reason: Pain, severe (8-10) Last Admin: 08/11/16 21:56 Dose: 1 mg Sodium Chloride (Sodium Chloride 0.9%) 1,000 mls @ 100 mls/hr IV .Q10H [facility] Last Admin: 08/11/16 14:09 Dose: 100 mls/hr Lisinopril (Zestril) 2.5 mg PO DAILY [facility] Last Admin: 08/11/16 10:04 Dose: 2.5 mg Metoprolol Tartrate (Lopressor) 12.5 mg PO BID [facility] Last Admin: 08/11/16 18:23 Dose: 12.5 mg Mometasone Furoate (Asmanex Twisthaler 220 Mcg) 1 puff IH QPM [facility] Last Admin: 08/11/16 18:22 Dose: 1 puff Multivitamins/Minerals (Therapeutic-M Tab) 1 tab PO 0800 [facility] Last Admin: 08/11/16 10:04 Dose: 1 tab Physical Exam - Head Exam Head Exam: ATRAUMATIC - Eye Exam Eye Exam: Normal appearance - ENT Exam ENT Exam: Mucous Membranes Dry - Respiratory Exam Respiratory Exam: NORMAL BREATHING PATTERN - Cardiovascular Exam Cardiovascular Exam: +S1, +S2 - GI/Abdominal Exam GI & Abdominal Exam: Normal Bowel Sounds - Extremities Exam Extremities exam: Positive for: normal inspection - Neurological Exam Neurological exam: Oriented x3 - Psychiatric Exam Psychiatric exam: Depressed - Skin Skin Exam: Warm Results - Vital Signs Recent Vital Signs: Last Vital Signs Temp 98.2 F 08/11/16 16:00 Pulse 95 H 08/11/16 18:23 Resp 18 08/11/16 16:00 BP 116/79 08/11/16 18:23 Pulse Ox 98 08/11/16 16:00 - Labs Result Diagrams: 08/11/16 07:50 08/11/16 07:50 Labs: Laboratory Results - last 24 hr 08/10/16 08/11/16 08/11/16 12:01 06:00 07:50 WBC 11.1 H RBC 2.36 L Hgb 7.8 L Hct 22.6 L MCV 95.8 MCH 33.1 MCHC 34.5 RDW 22.0 H Plt Count 118 L MPV 10.5 Gran % 44.7 L Lymph % (Auto) 41.9 H [place] % (Auto) 11.1 H Eos % (Auto) 2.0 Baso % (Auto) 0.3 Gran # 4.95 Lymph # 4.6 H [place] # 1.2 H Eos # 0.2 Baso # 0.03 Retic Count Sodium Potassium Chloride Carbon Dioxide Anion Gap BUN Creatinine Est GFR ( Amer) Est GFR (Non-Af Amer) Random Glucose Calcium Total Bilirubin AST ALT Alkaline Phosphatase Total Protein Albumin Globulin Albumin/Globulin Ratio Urine Color Yellow Urine Appearance Clear Urine pH 6.0 Ur Specific [place] 1.015 Urine Protein Negative Urine Glucose (UA) Negative Urine Ketones Negative Urine Blood Trace-intact H Urine Nitrate Negative Urine Bilirubin Negative Urine Urobilinogen 1.0 H Ur Leukocyte Esterase Negative Urine RBC 0 - 2 Urine WBC 1 - 3 Ur Epithelial Cells 0 - 2 Urine Bacteria Rare Blood Type B POSITIVE Antibody Screen Negative Crossmatch See Detail BBK History Checked Patient has bt 08/11/16 08/11/16 07:50 07:51 WBC RBC Hgb Hct MCV MCH MCHC RDW Plt Count MPV Gran % Lymph % (Auto) [place] % (Auto) Eos % (Auto) Baso % (Auto) Gran # Lymph # [place] # Eos # Baso # Retic Count 16.63 H* Sodium 136 Potassium 4.2 Chloride 106 Carbon Dioxide 24 Anion Gap 10 BUN 11 Creatinine 0.4 L Est GFR ( Amer) > 60 Est GFR (Non-Af Amer) > 60 Random Glucose 78 Calcium 8.3 L Total Bilirubin 2.7 H AST 145 H ALT 100 H Alkaline Phosphatase 154 H Total Protein 7.3 Albumin 3.3 Globulin 4.0 Albumin/Globulin Ratio 0.8 L Urine Color Urine Appearance Urine pH Ur Specific [place] Urine Protein Urine Glucose (UA) Urine Ketones Urine Blood Urine Nitrate Urine Bilirubin Urine Urobilinogen Ur Leukocyte Esterase Urine RBC Urine WBC Ur Epithelial Cells Urine Bacteria Blood Type Antibody Screen Crossmatch BBK History Checked Assessment & Plan (1) Sickle cell pain crisis Assessment and Plan: IV fluids, pain meds, folic acid, 02 via NC s/p PRBC transfusion Status: Acute (2) Leukocytosis Assessment and Plan: mild may be reactive to sickle crisis Status: Acute (3) Thrombocytopenia Assessment and Plan: mild, cont. to monitor Status: Chronic (4) Iron overload due to repeated red blood cell transfusions Assessment and Plan: outpatient chelation Status: Chronic (5) Sickle cell anemia Assessment and Plan: folic acid and hydrea Thank you for this interesting consult. Status: Chronic
[2016-08-12] MEDS: Sodium Chloride 0.9% 1,000 ML IV SCH ×2 (01:24→22:43)
[2016-08-12] MEDS: HYDROmorphone 1 mg/ml ISec IVP PRN ×3 (02:10→11:16)
[2016-08-12] MEDS: DiphenhydrAMINE 50 mg/ml Inj IVP PRN ×5 (02:10→20:19)
[2016-08-12 07:09] LABS: ADD MANUAL DIFF? NO
[2016-08-12 07:24] LABS: BASO # 0.03 K/mm3 (0.0-2.0); BASO % 0.3 % (0.0-3.0); EOS # 0.1 (0.0-0.7); EOS % 1.1 % (1.5-5.0); GRAN # 5.52 (1.4-6.5); GRAN % 62.3 % (50.0-68.0); LYMPH # 2.3 (1.2-3.4); MEAN CELL VOLUME 92.1 fL (80.0-105.0); MEAN CORPUSCULAR HEMOGLOBIN 32.9 pg (25.0-35.0); MEAN CORPUSCULAR HGB CONC 35.7 g/dl (31.0-37.0); MEAN PLATELET VOLUME 10.2 fl (7.0-11.0); MONO # 0.9 (0.1-0.6); MONO % 10.3 % (1.0-6.0); PLATELET COUNT 139 10^3/uL (120.0-450.0); RED CELL DISTRIBUTION WIDTH 22.9 % (11.5-14.5); WHITE BLOOD COUNT 8.9 10^3/ul (4.5-11.0)
[2016-08-12 07:36] LABS: ALB/GLOB RATIO 0.8 (1.1-1.8); ALKALINE PHOSPHATASE 166 U/L (38-133); ALT/SGPT 101 U/L (7-56); AST/SGOT 178 U/L (15-39); BILIRUBIN,TOTAL 4.5 mg/dL (0.2-1.3); BLOOD UREA NITROGEN 8 mg/dL (7-21); CALCIUM 8.5 mg/dL (8.4-10.5); CARBON DIOXIDE 28 mmol/L (21-33); CHLORIDE 105 mmol/L (95-110); GFR AFRICAN-AMERICAN > 60; GLUCOSE,RANDOM 95 mg/dL (70-110); POTASSIUM 3.9 mmol/L (3.6-5.0); SODIUM 138 mmol/L (132-148); TOTAL PROTEIN 7.4 g/dL (5.8-8.3)
[2016-08-12 07:38] LABS: HEMATOCRIT 22.1 % (36.0-48.0)
[2016-08-12 08:23] LABS: RETIC% 18.97 % (0.5-1.5)
[2016-08-12] MEDS: Divalproex 250 mg DR (BID formulation) PO SCH ×2 (09:03→18:17)
[2016-08-12] MEDS: Multivitamin With Minerals Tab PO SCH ×2 (09:04→13:00)
[2016-08-12] MEDS ORDERED: HYDROmorphone 1 mg/ml ISec IVP PRN (12:33)
--- NOTE | 2016-08-12 12:40 | CP.PCM.PN ---
<Rafat Vega - Last Filed: 08/12/16 12:43> Subjective - Date & Time of Evaluation Date of Evaluation: 08/12/16 Time of Evaluation: 12:35 - Subjective Subjective: Medicine progress note. Attending: Dr. Green Pt seen and examined at bedside. No acute distress. Pt had an episode of vomiting this morning. No fevers, chills, diarrhea. Retic count trending down, HGB stable. Objective - Vital Signs/Intake and Output Vital Signs (last 24 hours): Temp Pulse Resp BP Pulse Ox 97.7 F 106 H 16 123/81 92 L 08/12/16 07:30 08/12/16 09:02 08/12/16 07:30 08/12/16 09:02 08/12/16 07:30 Intake and Output: 08/12/16 08/12/16 06:59 18:59 Intake Total 600 Balance 600 - Medications Medications: Current Medications Acetaminophen (Tylenol 325mg Tab) 650 mg PO Q6H PRN PRN Reason: Fever >100.4 F Albuterol Sulfate (Albuterol 0.083% Inhal Rika (2.5 Mg/3 Ml) Ud) 2.5 mg IH Q2H PRN PRN Reason: SOb Aluminum Hydroxide (Aluminum Hydroxide Gel 320mg /5ml Susp (Bulk)) 30 ml PO DAILY [facility] Last Admin: 08/11/16 10:05 Dose: Not Given Benzonatate (Tessalon Perles) 100 mg PO BID PRN PRN Reason: Cough Diphenhydramine HCl (Benadryl) 25 mg IVP Q4H PRN PRN Reason: Allergy symptoms Last Admin: 08/12/16 11:18 Dose: 25 mg Divalproex Sodium (Depakote Dr (*Bid*)) 250 mg PO BID [facility] PRN Reason: Protocol Last Admin: 08/12/16 09:03 Dose: 250 mg Famotidine (Pepcid) 20 mg PO BID [facility] Last Admin: 08/12/16 09:03 Dose: 20 mg Folic Acid (Folic Acid) 1 mg PO DAILY [facility] Last Admin: 08/12/16 09:03 Dose: 1 mg Guaifenesin (Robitussin) 200 mg PO Q4H PRN PRN Reason: Cough and congestion Hydromorphone HCl (Dilaudid) 0.5 mg IVP Q4H PRN PRN Reason: Pain, severe (8-10) Sodium Chloride (Sodium Chloride 0.9%) 1,000 mls @ 100 mls/hr IV .Q10H [facility] Last Admin: 08/12/16 01:24 Dose: 100 mls/hr Lisinopril (Zestril) 2.5 mg PO DAILY [facility] Last Admin: 08/12/16 09:01 Dose: 2.5 mg Metoclopramide HCl (Reglan) 10 mg IVP Q8H PRN PRN Reason: Vomitus Metoprolol Tartrate (Lopressor) 12.5 mg PO BID [facility] Last Admin: 08/12/16 09:02 Dose: 12.5 mg Mometasone Furoate (Asmanex Twisthaler 220 Mcg) 1 puff IH QPM [facility] Last Admin: 08/11/16 18:22 Dose: 1 puff Multivitamins/Minerals (Therapeutic-M Tab) 1 tab PO 1000 [facility] Ondansetron HCl (Zofran Inj) 8 mg IVP Q6H PRN PRN Reason: Nausea/Vomiting Last Admin: 08/12/16 07:02 Dose: 8 mg - Labs Labs: 08/12/16 07:00 08/12/16 07:00 - Constitutional Appears: Non-toxic, No Acute Distress - Head Exam Head Exam: ATRAUMATIC, NORMAL INSPECTION, NORMOCEPHALIC - Eye Exam Eye Exam: EOMI - ENT Exam ENT Exam: Mucous Membranes Moist - Neck Exam Neck Exam: Full ROM, Normal Inspection - Respiratory Exam Respiratory Exam: NORMAL BREATHING PATTERN. absent: Respiratory Distress - Cardiovascular Exam Cardiovascular Exam: +S1, +S2 - GI/Abdominal Exam GI & Abdominal Exam: Soft, Normal Bowel Sounds. absent: Tenderness - Extremities Exam Extremities Exam: Full ROM, Normal Inspection - Neurological Exam Neurological Exam: Alert, Awake, Oriented x3 - Psychiatric Exam Psychiatric exam: Normal Affect, Normal Mood - Skin Skin Exam: Dry, Intact, Normal Color, Warm Assessment and Plan - Assessment and Plan (Free Text) Assessment: This is a 35 yo female with past medical hx of cerebral palsy, bipolar disorder , depression, sickle cell disease, hypertension, anxiety, pancreatitis and asthma, CHF w/ EF of 35% admitted for intractable pain 2/2 to sickle cell disease. 1. Intractable Pain 2/2 sickle cell dx - Taper Dilaudid to 0.5mg Q4H for pain - D/ivonne Tramadol - Cont NS @ 200>> will decrease fluids in light of CHF hx>> NS 100 currently 2. Anemia - 2/2 Sickle cell disease -Heme Onc Consult; Dr Palacios; Recs appreciated -retic count trending down -s/p 1 unit; will f/u CBC to monitor for stability - Monitor CBC and retic count -continue folic acid daily 3. cerebral palsy -patient is only ambulatory with wheelchair -continue to monitor 4. bipolar disorder -will continue with depakote 5. hypertension - Continue metoprolol and lisinopril 6. asthma, - PRN albuterol 7. CHF w/ EF of 35% -metoprolol 12.5mg BID -lisinopril 2.5mg daily -will decrease fluid rate. 8. Prophylaxis - SCD & Pepcid -heart healthy diet Case and plan was seen reviewed and discussed in detail with Dr Green. <Marco Green - Last Filed: 08/12/16 17:32> Objective - Vital Signs/Intake and Output Vital Signs (last 24 hours): Temp Pulse Resp BP Pulse Ox 99 F 90 16 121/86 92 L 08/12/16 16:00 08/12/16 16:00 08/12/16 16:00 08/12/16 16:00 08/12/16 16:00 Intake and Output: 08/12/16 08/12/16 06:59 18:59 Intake Total 600 360 Balance 600 360 - Medications Medications: Current Medications Acetaminophen (Tylenol 325mg Tab) 650 mg PO Q6H PRN PRN Reason: Fever >100.4 F Albuterol Sulfate (Albuterol 0.083% Inhal Rika (2.5 Mg/3 Ml) Ud) 2.5 mg IH Q2H PRN PRN Reason: SOb Aluminum Hydroxide (Aluminum Hydroxide Gel 320mg /5ml Susp (Bulk)) 30 ml PO DAILY [facility] Last Admin: 08/12/16 14:30 Dose: Not Given Benzonatate (Tessalon Perles) 100 mg PO BID PRN PRN Reason: Cough Diphenhydramine HCl (Benadryl) 25 mg IVP Q4H PRN PRN Reason: Allergy symptoms Last Admin: 08/12/16 15:43 Dose: 25 mg Divalproex Sodium (Depakote Dr (*Bid*)) 250 mg PO BID [facility] PRN Reason: Protocol Last Admin: 08/12/16 09:03 Dose: 250 mg Famotidine (Pepcid) 20 mg PO BID [facility] Last Admin: 08/12/16 09:03 Dose: 20 mg Folic Acid (Folic Acid) 1 mg PO DAILY [facility] Last Admin: 08/12/16 09:03 Dose: 1 mg Guaifenesin (Robitussin) 200 mg PO Q4H PRN PRN Reason: Cough and congestion Hydromorphone HCl (Dilaudid) 0.5 mg IVP Q4 PRN PRN Reason: Pain, severe (8-10) Last Admin: 08/12/16 15:42 Dose: 0.5 mg Sodium Chloride (Sodium Chloride 0.9%) 1,000 mls @ 100 mls/hr IV .Q10H [facility] Last Admin: 08/12/16 01:24 Dose: 100 mls/hr Lisinopril (Zestril) 2.5 mg PO DAILY [facility] Last Admin: 08/12/16 09:01 Dose: 2.5 mg Metoclopramide HCl (Reglan) 10 mg IVP Q8H PRN PRN Reason: Vomitus Metoprolol Tartrate (Lopressor) 12.5 mg PO BID [facility] Last Admin: 08/12/16 09:02 Dose: 12.5 mg Mometasone Furoate (Asmanex Twisthaler 220 Mcg) 1 puff IH QPM [facility] Last Admin: 08/11/16 18:22 Dose: 1 puff Multivitamins/Minerals (Therapeutic-M Tab) 1 tab PO 1000 [facility] Last Admin: 08/12/16 13:00 Dose: Not Given Ondansetron HCl (Zofran Inj) 4 mg IVP Q6H PRN PRN Reason: Nausea/Vomiting - Labs Labs: 08/12/16 07:00 08/12/16 07:00 Attending/Attestation - Attestation I have personally seen and examined this patient.: Yes I have fully participated in the care of the patient.: Yes I have reviewed all pertinent clinical information, including history, physical exam and plan: Yes Notes (Text): 08/12/16 17:31 35 year old female with past medical history of sickle cell disease, hypertension, asthma, cerebral palsy, and bipolar/depression who presented with sickle cell crisis. She is on iv fluids and analgesics. Hematology evaluation was appreciated. Her hemoglobin improved after one unit of prbc transfusion. Will monitor closely as she has history of iron overload due to multiple transfusions in the past. Today she is lethargic so we will begin to taper her dilaudid. Marco Green MD Hospitalist.
[2016-08-12] MEDS: Aluminum Hydrox Gel 320 mg/5 ml Susp(480 ml) PO SCH (14:30)
[2016-08-12] MEDS: HYDROmorphone 0.5 mg/0.5 ml ISec IVP PRN ×2 (15:42→20:20)
[2016-08-12] MEDS: Mometasone 220 mcg/puff-14 puff Inh IH SCH (18:19)
[2016-08-13] MEDS: HYDROmorphone 0.5 mg/0.5 ml ISec IVP PRN ×6 (00:23→22:56)
[2016-08-13] MEDS: DiphenhydrAMINE 50 mg/ml Inj IVP PRN ×6 (00:24→22:56)
[2016-08-13 07:06] LABS: ADD MANUAL DIFF? NO
[2016-08-13 07:16] LABS: BASO # 0.05 K/mm3 (0.0-2.0); BASO % 0.5 % (0.0-3.0); EOS # 0.2 (0.0-0.7); EOS % 1.9 % (1.5-5.0); GRAN # 4.73 (1.4-6.5); GRAN % 43.9 % (50.0-68.0); LYMPH # 4.4 (1.2-3.4); LYMPH % 40.9 % (22.0-35.0); MEAN CELL VOLUME 92.5 fL (80.0-105.0); MEAN CORPUSCULAR HEMOGLOBIN 32.9 pg (25.0-35.0); MEAN CORPUSCULAR HGB CONC 35.5 g/dl (31.0-37.0); MEAN PLATELET VOLUME 10.2 fl (7.0-11.0); MONO # 1.4 (0.1-0.6); MONO % 12.8 % (1.0-6.0); PLATELET COUNT 145 10^3/uL (120.0-450.0); RED CELL DISTRIBUTION WIDTH 22.7 % (11.5-14.5); WHITE BLOOD COUNT 10.8 10^3/ul (4.5-11.0)
[2016-08-13 07:31] LABS: ALB/GLOB RATIO 0.7 (1.1-1.8); ALKALINE PHOSPHATASE 141 U/L (38-133); ALT/SGPT 102 U/L (7-56); AST/SGOT 168 U/L (15-39); BILIRUBIN,TOTAL 4.4 mg/dL (0.2-1.3); BLOOD UREA NITROGEN 8 mg/dL (7-21); CALCIUM 8.2 mg/dL (8.4-10.5); CARBON DIOXIDE 28 mmol/L (21-33); CHLORIDE 107 mmol/L (98-107); GFR AFRICAN-AMERICAN > 60; GLUCOSE,RANDOM 86 mg/dL (70-110); MAGNESIUM 1.5 mg/dL (1.7-2.2); PHOSPHOROUS 3.4 mg/dL (2.5-4.5); POTASSIUM 3.8 mmol/L (3.6-5.0); SODIUM 139 mmol/L (132-148); TOTAL PROTEIN 6.9 g/dL (5.8-8.3)
[2016-08-13 08:10] LABS: HEMATOCRIT 21.1 % (36.0-48.0)
[2016-08-13] MEDS: Aluminum Hydrox Gel 320 mg/5 ml Susp(480 ml) PO SCH (10:39)
[2016-08-13] MEDS: Divalproex 250 mg DR (BID formulation) PO SCH ×2 (10:50→17:23)
[2016-08-13] MEDS: Multivitamin With Minerals Tab PO SCH (10:51)
--- NOTE | 2016-08-13 12:37 | CP.PCM.PN ---
<Rafat Vega - Last Filed: 08/13/16 12:38> Subjective - Date & Time of Evaluation Date of Evaluation: 08/13/16 Time of Evaluation: 12:35 - Subjective Subjective: Medicine progress note. Attending: Dr. Green Pt seen/examined at bedside. No acute distress. No events overnight. Pt still lethargic, ROS very limited. No more vomiting. Objective - Vital Signs/Intake and Output Vital Signs (last 24 hours): Temp Pulse Resp BP Pulse Ox 98.8 F 91 H 18 114/73 94 L 08/13/16 07:30 08/13/16 10:49 08/13/16 07:30 08/13/16 10:49 08/13/16 07:30 Intake and Output: 08/13/16 08/13/16 06:59 18:59 Intake Total 1520 Balance 1520 - Medications Medications: Current Medications Acetaminophen (Tylenol 325mg Tab) 650 mg PO Q6H PRN PRN Reason: Fever >100.4 F Albuterol Sulfate (Albuterol 0.083% Inhal Rika (2.5 Mg/3 Ml) Ud) 2.5 mg IH Q2H PRN PRN Reason: SOb Aluminum Hydroxide (Aluminum Hydroxide Gel 320mg /5ml Susp (Bulk)) 30 ml PO DAILY [facility] Last Admin: 08/13/16 10:39 Dose: Not Given Benzonatate (Tessalon Perles) 100 mg PO BID PRN PRN Reason: Cough Diphenhydramine HCl (Benadryl) 25 mg IVP Q4H PRN PRN Reason: Allergy symptoms Last Admin: 08/13/16 10:51 Dose: 25 mg Divalproex Sodium (Depakote Dr (*Bid*)) 250 mg PO BID [facility] PRN Reason: Protocol Last Admin: 08/13/16 10:50 Dose: 250 mg Famotidine (Pepcid) 20 mg PO BID [facility] Last Admin: 08/13/16 10:51 Dose: 20 mg Folic Acid (Folic Acid) 1 mg PO DAILY [facility] Last Admin: 08/13/16 10:49 Dose: 1 mg Guaifenesin (Robitussin) 200 mg PO Q4H PRN PRN Reason: Cough and congestion Hydromorphone HCl (Dilaudid) 0.5 mg IVP Q4 PRN PRN Reason: Pain, severe (8-10) Last Admin: 08/13/16 10:48 Dose: 0.5 mg Sodium Chloride (Sodium Chloride 0.9%) 1,000 mls @ 100 mls/hr IV .Q10H [facility] Last Admin: 08/12/16 22:43 Dose: 100 mls/hr Lisinopril (Zestril) 2.5 mg PO DAILY [facility] Last Admin: 08/13/16 10:50 Dose: 2.5 mg Metoclopramide HCl (Reglan) 10 mg IVP Q8H PRN PRN Reason: Vomitus Metoprolol Tartrate (Lopressor) 12.5 mg PO BID [facility] Last Admin: 08/13/16 10:49 Dose: 12.5 mg Mometasone Furoate (Asmanex Twisthaler 220 Mcg) 1 puff IH QPM [facility] Last Admin: 08/12/16 18:19 Dose: 1 puff Multivitamins/Minerals (Therapeutic-M Tab) 1 tab PO 1000 [facility] Last Admin: 08/13/16 10:51 Dose: 1 tab Ondansetron HCl (Zofran Inj) 4 mg IVP Q6H PRN PRN Reason: Nausea/Vomiting - Labs Labs: 08/13/16 06:30 08/13/16 06:30 - Constitutional Appears: Non-toxic, No Acute Distress - Head Exam Head Exam: ATRAUMATIC, NORMAL INSPECTION, NORMOCEPHALIC - Eye Exam Eye Exam: EOMI - ENT Exam ENT Exam: Mucous Membranes Moist - Neck Exam Neck Exam: Full ROM, Normal Inspection - Respiratory Exam Respiratory Exam: NORMAL BREATHING PATTERN. absent: Respiratory Distress - Cardiovascular Exam Cardiovascular Exam: +S1, +S2 - GI/Abdominal Exam GI & Abdominal Exam: Soft, Normal Bowel Sounds. absent: Tenderness - Extremities Exam Extremities Exam: Full ROM, Normal Inspection - Back Exam Back Exam: NORMAL INSPECTION - Neurological Exam Neurological Exam: Alert, Awake - Psychiatric Exam Psychiatric exam: Flat Affect - Skin Skin Exam: Dry, Intact, Normal Color, Warm Assessment and Plan - Assessment and Plan (Free Text) Assessment: This is a 35 yo female with past medical hx of cerebral palsy, bipolar disorder , depression, sickle cell disease, hypertension, anxiety, pancreatitis and asthma, CHF w/ EF of 35% admitted for intractable pain 2/2 to sickle cell disease. 1. Intractable Pain 2/2 sickle cell dx - Taper Dilaudid to 0.5mg Q4H for pain - D/ivonne Tramadol - Cont NS @ 200>> will decrease fluids in light of CHF hx>> NS 100 currently 2. Anemia - 2/2 Sickle cell disease -Heme Onc Consult; Dr Palacios; Recs appreciated -retic count trending down -s/p 1 unit; will f/u CBC to monitor for stability - Monitor CBC and retic count -continue folic acid daily 3. cerebral palsy -patient is only ambulatory with wheelchair -continue to monitor 4. bipolar disorder -will continue with depakote 5. hypertension - Continue metoprolol and lisinopril 6. asthma, - PRN albuterol 7. CHF w/ EF of 35% -metoprolol 12.5mg BID -lisinopril 2.5mg daily -will decrease fluid rate. 8. Prophylaxis - SCD & Pepcid -heart healthy diet Case and plan was seen reviewed and discussed in detail with Dr Green. <Marco Green - Last Filed: 08/13/16 17:35> Objective - Vital Signs/Intake and Output Vital Signs (last 24 hours): Temp Pulse Resp BP Pulse Ox 98.5 F 84 18 124/84 100 08/13/16 16:00 08/13/16 17:24 08/13/16 16:00 08/13/16 17:24 08/13/16 16:00 Intake and Output: 08/13/16 08/13/16 06:59 18:59 Intake Total 1520 Balance 1520 - Medications Medications: Current Medications Acetaminophen (Tylenol 325mg Tab) 650 mg PO Q6H PRN PRN Reason: Fever >100.4 F Albuterol Sulfate (Albuterol 0.083% Inhal Rika (2.5 Mg/3 Ml) Ud) 2.5 mg IH Q2H PRN PRN Reason: SOb Aluminum Hydroxide (Aluminum Hydroxide Gel 320mg /5ml Susp (Bulk)) 30 ml PO DAILY [facility] Last Admin: 08/13/16 10:39 Dose: Not Given Benzonatate (Tessalon Perles) 100 mg PO BID PRN PRN Reason: Cough Diphenhydramine HCl (Benadryl) 25 mg IVP Q4H PRN PRN Reason: Allergy symptoms Last Admin: 08/13/16 14:53 Dose: 25 mg Divalproex Sodium (Depakote Dr (*Bid*)) 250 mg PO BID [facility] PRN Reason: Protocol Last Admin: 08/13/16 17:23 Dose: 250 mg Famotidine (Pepcid) 20 mg PO BID [facility] Last Admin: 08/13/16 17:24 Dose: 20 mg Folic Acid (Folic Acid) 1 mg PO DAILY [facility] Last Admin: 08/13/16 10:49 Dose: 1 mg Guaifenesin (Robitussin) 200 mg PO Q4H PRN PRN Reason: Cough and congestion Hydromorphone HCl (Dilaudid) 0.5 mg IVP Q4 PRN PRN Reason: Pain, severe (8-10) Last Admin: 08/13/16 14:51 Dose: 0.5 mg Sodium Chloride (Sodium Chloride 0.9%) 1,000 mls @ 100 mls/hr IV .Q10H [facility] Last Admin: 08/12/16 22:43 Dose: 100 mls/hr Lisinopril (Zestril) 2.5 mg PO DAILY [facility] Last Admin: 08/13/16 10:50 Dose: 2.5 mg Metoclopramide HCl (Reglan) 10 mg IVP Q8H PRN PRN Reason: Vomitus Metoprolol Tartrate (Lopressor) 12.5 mg PO BID [facility] Last Admin: 08/13/16 17:24 Dose: 12.5 mg Mometasone Furoate (Asmanex Twisthaler 220 Mcg) 1 puff IH QPM [facility] Last Admin: 08/13/16 17:26 Dose: 1 puff Multivitamins/Minerals (Therapeutic-M Tab) 1 tab PO 1000 [facility] Last Admin: 08/13/16 10:51 Dose: 1 tab Ondansetron HCl (Zofran Inj) 4 mg IVP Q6H PRN PRN Reason: Nausea/Vomiting - Labs Labs: 08/13/16 06:30 08/13/16 06:30 Attending/Attestation - Attestation I have personally seen and examined this patient.: Yes I have fully participated in the care of the patient.: Yes I have reviewed all pertinent clinical information, including history, physical exam and plan: Yes Notes (Text): 08/13/16 17:31 35 year old female with past medical history of sickle cell disease, hypertension, asthma, cerebral palsy, and bipolar/depression who presented with sickle cell crisis. Continue with iv fluids and analgesics. She was seen by telephone operator receptionist, Dr. Palacios. Today she is not lethargic but does not conversant limiting her answers to 1 or 2 words. She received one unit of prbc transfusion since admission. Hemoglobin today is 7.5. Will monitor closely as she has history of iron overload due to multiple transfusions in the past. Marco Green MD Hospitalist.
[2016-08-13] MEDS: Mometasone 220 mcg/puff-14 puff Inh IH SCH (17:26)
[2016-08-13] MEDS: Sodium Chloride 0.9% 1,000 ML IV SCH (18:25)
--- NOTE | 2016-08-13 20:05 | CP.PCM.PN ---
Subjective - Date & Time of Evaluation Date of Evaluation: 08/13/16 Time of Evaluation: 14:20 - Subjective Subjective: Has pain Objective - Vital Signs/Intake and Output Vital Signs (last 24 hours): Temp Pulse Resp BP Pulse Ox 98.5 F 84 18 124/84 100 08/13/16 16:00 08/13/16 17:24 08/13/16 16:00 08/13/16 17:24 08/13/16 16:00 - Medications Medications: Current Medications Acetaminophen (Tylenol 325mg Tab) 650 mg PO Q6H PRN PRN Reason: Fever >100.4 F Albuterol Sulfate (Albuterol 0.083% Inhal Rika (2.5 Mg/3 Ml) Ud) 2.5 mg IH Q2H PRN PRN Reason: SOb Aluminum Hydroxide (Aluminum Hydroxide Gel 320mg /5ml Susp (Bulk)) 30 ml PO DAILY [facility] Last Admin: 08/13/16 10:39 Dose: Not Given Benzonatate (Tessalon Perles) 100 mg PO BID PRN PRN Reason: Cough Diphenhydramine HCl (Benadryl) 25 mg IVP Q4H PRN PRN Reason: Allergy symptoms Last Admin: 08/13/16 19:03 Dose: 25 mg Divalproex Sodium (Depakote Dr (*Bid*)) 250 mg PO BID [facility] PRN Reason: Protocol Last Admin: 08/13/16 17:23 Dose: 250 mg Famotidine (Pepcid) 20 mg PO BID [facility] Last Admin: 08/13/16 17:24 Dose: 20 mg Folic Acid (Folic Acid) 1 mg PO DAILY [facility] Last Admin: 08/13/16 10:49 Dose: 1 mg Guaifenesin (Robitussin) 200 mg PO Q4H PRN PRN Reason: Cough and congestion Hydromorphone HCl (Dilaudid) 0.5 mg IVP Q4 PRN PRN Reason: Pain, severe (8-10) Last Admin: 08/13/16 19:04 Dose: 0.5 mg Sodium Chloride (Sodium Chloride 0.9%) 1,000 mls @ 100 mls/hr IV .Q10H [facility] Last Admin: 08/13/16 18:25 Dose: 100 mls/hr Lisinopril (Zestril) 2.5 mg PO DAILY [facility] Last Admin: 08/13/16 10:50 Dose: 2.5 mg Metoclopramide HCl (Reglan) 10 mg IVP Q8H PRN PRN Reason: Vomitus Metoprolol Tartrate (Lopressor) 12.5 mg PO BID [facility] Last Admin: 08/13/16 17:24 Dose: 12.5 mg Mometasone Furoate (Asmanex Twisthaler 220 Mcg) 1 puff IH QPM [facility] Last Admin: 08/13/16 17:26 Dose: 1 puff Multivitamins/Minerals (Therapeutic-M Tab) 1 tab PO 1000 [facility] Last Admin: 08/13/16 10:51 Dose: 1 tab Ondansetron HCl (Zofran Inj) 4 mg IVP Q6H PRN PRN Reason: Nausea/Vomiting - Labs Labs: 08/13/16 06:30 08/13/16 06:30 - Head Exam Head Exam: ATRAUMATIC - Eye Exam Eye Exam: Scleral icterus - ENT Exam ENT Exam: Mucous Membranes Dry - Respiratory Exam Respiratory Exam: NORMAL BREATHING PATTERN - Cardiovascular Exam Cardiovascular Exam: +S1, +S2 - GI/Abdominal Exam GI & Abdominal Exam: Normal Bowel Sounds - Extremities Exam Extremities Exam: Pedal Edema Assessment and Plan (1) Sickle cell pain crisis Assessment & Plan: IV fluids, pain meds, folic acid, 02 via NC s/p PRBC transfusion Status: Acute (2) Iron overload due to repeated red blood cell transfusions Assessment & Plan: outpatient chelation minimize transfusion support Status: Chronic (3) Sickle cell anemia Assessment & Plan: folic acid and hydrea Status: Chronic
[2016-08-14] MEDS: DiphenhydrAMINE 50 mg/ml Inj IVP PRN ×4 (03:02→23:01)
[2016-08-14] MEDS: HYDROmorphone 0.5 mg/0.5 ml ISec IVP PRN ×3 (03:05→10:41)
[2016-08-14] MEDS: Sodium Chloride 0.9% 1,000 ML IV SCH ×2 (06:27→16:50)
[2016-08-14 06:59] LABS: ADD MANUAL DIFF? NO
[2016-08-14 07:13] LABS: BASO # 0.05 K/mm3 (0.0-2.0); BASO % 0.5 % (0.0-3.0); EOS # 0.2 (0.0-0.7); EOS % 2.3 % (1.5-5.0); GRAN # 4.92 (1.4-6.5); GRAN % 46.2 % (50.0-68.0); LYMPH # 4.2 (1.2-3.4); LYMPH % 39.7 % (22.0-35.0); MEAN CELL VOLUME 94.3 fL (80.0-105.0); MEAN CORPUSCULAR HEMOGLOBIN 32.6 pg (25.0-35.0); MEAN CORPUSCULAR HGB CONC 34.6 g/dl (31.0-37.0); MEAN PLATELET VOLUME 10.5 fl (7.0-11.0); MONO # 1.2 (0.1-0.6); MONO % 11.3 % (1.0-6.0); PLATELET COUNT 152 10^3/uL (120.0-450.0); RED CELL DISTRIBUTION WIDTH 22.8 % (11.5-14.5); WHITE BLOOD COUNT 10.6 10^3/ul (4.5-11.0)
[2016-08-14 07:26] LABS: ALB/GLOB RATIO 0.8 (1.1-1.8); ALKALINE PHOSPHATASE 127 U/L (38-133); ALT/SGPT 98 U/L (7-56); AST/SGOT 152 U/L (15-39); BILIRUBIN,TOTAL 2.6 mg/dL (0.2-1.3); BLOOD UREA NITROGEN 8 mg/dL (7-21); CALCIUM 8.1 mg/dL (8.4-10.5); CARBON DIOXIDE 27 mmol/L (21-33); CHLORIDE 107 mmol/L (98-107); GFR AFRICAN-AMERICAN > 60; GLUCOSE,RANDOM 81 mg/dL (70-110); MAGNESIUM 1.4 mg/dL (1.7-2.2); PHOSPHOROUS 3.7 mg/dL (2.5-4.5); POTASSIUM 3.4 mmol/L (3.6-5.0); SODIUM 139 mmol/L (132-148); TOTAL PROTEIN 6.4 g/dL (5.8-8.3)
[2016-08-14 07:36] LABS: HEMATOCRIT 21.7 % (36.0-48.0)
[2016-08-14] MEDS ORDERED: Magnesium Sulfate 2 GM in Sodium Chloride 0.9% 100 ML IVPB ONE (07:53)
[2016-08-14] MEDS ORDERED: Potassium Chloride 20 mEq ER Tab PO ONE (07:53)
[2016-08-14 09:10] LABS: RETIC% 23.18 % (0.5-1.5)
[2016-08-14] MEDS: Multivitamin With Minerals Tab PO SCH (10:42)
[2016-08-14] MEDS: Divalproex 250 mg DR (BID formulation) PO SCH ×2 (10:42→17:15)
--- NOTE | 2016-08-14 11:20 | CP.PCM.PN ---
<Rafat Vega - Last Filed: 08/14/16 11:21> Subjective - Date & Time of Evaluation Date of Evaluation: 08/14/16 Time of Evaluation: 11:20 - Subjective Subjective: Medicine progress note. Attending: Dr. Green Pt seen/examined at bedside. No acute distress. No events overnight. Pt not eating a lot, lying in bed. HGB stabe. No fevers, chills, vomiting, diarrhea. Objective - Vital Signs/Intake and Output Vital Signs (last 24 hours): Temp Pulse Resp BP Pulse Ox 98.5 F 85 20 113/72 94 L 08/14/16 07:30 08/14/16 10:44 08/14/16 07:30 08/14/16 10:44 08/14/16 07:30 Intake and Output: 08/14/16 08/14/16 06:59 18:59 Intake Total 3000 Balance 3000 - Medications Medications: Current Medications Acetaminophen (Tylenol 325mg Tab) 650 mg PO Q6H PRN PRN Reason: Fever >100.4 F Albuterol Sulfate (Albuterol 0.083% Inhal Rika (2.5 Mg/3 Ml) Ud) 2.5 mg IH Q2H PRN PRN Reason: SOb Aluminum Hydroxide (Aluminum Hydroxide Gel 320mg /5ml Susp (Bulk)) 30 ml PO DAILY [facility] Last Admin: 08/13/16 10:39 Dose: Not Given Benzonatate (Tessalon Perles) 100 mg PO BID PRN PRN Reason: Cough Diphenhydramine HCl (Benadryl) 25 mg IVP Q4H PRN PRN Reason: Allergy symptoms Last Admin: 08/14/16 06:32 Dose: 25 mg Divalproex Sodium (Depakote Dr (*Bid*)) 250 mg PO BID [facility] PRN Reason: Protocol Last Admin: 08/14/16 10:42 Dose: 250 mg Famotidine (Pepcid) 20 mg PO BID [facility] Last Admin: 08/14/16 10:42 Dose: 20 mg Folic Acid (Folic Acid) 1 mg PO DAILY [facility] Last Admin: 08/14/16 10:42 Dose: 1 mg Guaifenesin (Robitussin) 200 mg PO Q4H PRN PRN Reason: Cough and congestion Hydromorphone HCl (Dilaudid) 0.5 mg IVP Q4 PRN PRN Reason: Pain, severe (8-10) Last Admin: 08/14/16 10:41 Dose: 0.5 mg Sodium Chloride (Sodium Chloride 0.9%) 1,000 mls @ 100 mls/hr IV .Q10H [facility] Last Admin: 08/14/16 06:27 Dose: 100 mls/hr Lisinopril (Zestril) 2.5 mg PO DAILY [facility] Last Admin: 08/14/16 10:44 Dose: 2.5 mg Metoclopramide HCl (Reglan) 10 mg IVP Q8H PRN PRN Reason: Vomitus Metoprolol Tartrate (Lopressor) 12.5 mg PO BID [facility] Last Admin: 08/14/16 10:42 Dose: 12.5 mg Mometasone Furoate (Asmanex Twisthaler 220 Mcg) 1 puff IH QPM [facility] Last Admin: 08/13/16 17:26 Dose: 1 puff Multivitamins/Minerals (Therapeutic-M Tab) 1 tab PO 1000 [facility] Last Admin: 08/14/16 10:42 Dose: 1 tab Ondansetron HCl (Zofran Inj) 4 mg IVP Q6H PRN PRN Reason: Nausea/Vomiting - Labs Labs: 08/14/16 06:30 08/14/16 06:30 - Constitutional Appears: Non-toxic, No Acute Distress - Head Exam Head Exam: ATRAUMATIC, NORMAL INSPECTION, NORMOCEPHALIC - Eye Exam Eye Exam: EOMI - ENT Exam ENT Exam: Mucous Membranes Moist - Neck Exam Neck Exam: Full ROM, Normal Inspection - Respiratory Exam Respiratory Exam: NORMAL BREATHING PATTERN. absent: Respiratory Distress - Cardiovascular Exam Cardiovascular Exam: +S1, +S2 - GI/Abdominal Exam GI & Abdominal Exam: Soft, Normal Bowel Sounds. absent: Tenderness - Extremities Exam Extremities Exam: Full ROM, Normal Inspection - Neurological Exam Neurological Exam: Alert, Awake - Psychiatric Exam Psychiatric exam: Depressed, Flat Affect - Skin Skin Exam: Dry, Intact, Normal Color, Warm Assessment and Plan - Assessment and Plan (Free Text) Assessment: This is a 35 yo female with past medical hx of cerebral palsy, bipolar disorder , depression, sickle cell disease, hypertension, anxiety, pancreatitis and asthma, CHF w/ EF of 35% admitted for intractable pain 2/2 to sickle cell disease. 1. Intractable Pain 2/2 sickle cell dx - Taper Dilaudid to 0.5mg Q4H for pain - D/ivonne Tramadol - Cont NS @ 200>> will decrease fluids in light of CHF hx>> NS 100 currently -will taper benadryl to IV q 6 hrs 2. Anemia - 2/2 Sickle cell disease -Heme Onc Consult; Dr Palacios; Recs appreciated -retic count trending down -s/p 1 unit; will f/u CBC to monitor for stability - Monitor CBC and retic count -continue folic acid daily 3. cerebral palsy -patient is only ambulatory with wheelchair -continue to monitor 4. bipolar disorder -will continue with depakote 5. hypertension - Continue metoprolol and lisinopril 6. asthma, - PRN albuterol 7. CHF w/ EF of 35% -metoprolol 12.5mg BID -lisinopril 2.5mg daily -will decrease fluid rate. 8. Prophylaxis - SCD & Pepcid -heart healthy diet Case and plan was seen reviewed and discussed in detail with Dr Green. <Marco Green - Last Filed: 08/14/16 17:56> Objective - Vital Signs/Intake and Output Vital Signs (last 24 hours): Temp Pulse Resp BP Pulse Ox 97.8 F 83 20 158/95 H 93 L 08/14/16 16:36 08/14/16 17:06 08/14/16 16:36 08/14/16 17:06 08/14/16 16:36 Intake and Output: 08/14/16 08/14/16 06:59 18:59 Intake Total 3000 240 Balance 3000 240 - Medications Medications: Current Medications Acetaminophen (Tylenol 325mg Tab) 650 mg PO Q6H PRN PRN Reason: Fever >100.4 F Albuterol Sulfate (Albuterol 0.083% Inhal Rika (2.5 Mg/3 Ml) Ud) 2.5 mg IH Q2H PRN PRN Reason: SOb Aluminum Hydroxide (Aluminum Hydroxide Gel 320mg /5ml Susp (Bulk)) 30 ml PO DAILY [facility] Last Admin: 08/14/16 16:16 Dose: 30 ml Benzonatate (Tessalon Perles) 100 mg PO BID PRN PRN Reason: Cough Diphenhydramine HCl (Benadryl) 25 mg IVP Q6 PRN PRN Reason: Allergy symptoms Last Admin: 08/14/16 15:10 Dose: 25 mg Divalproex Sodium (Depakote Dr (*Bid*)) 250 mg PO BID [facility] PRN Reason: Protocol Last Admin: 08/14/16 17:15 Dose: 250 mg Famotidine (Pepcid) 20 mg PO BID [facility] Last Admin: 08/14/16 17:06 Dose: 20 mg Folic Acid (Folic Acid) 1 mg PO DAILY [facility] Last Admin: 08/14/16 10:42 Dose: 1 mg Guaifenesin (Robitussin) 200 mg PO Q4H PRN PRN Reason: Cough and congestion Hydromorphone HCl (Dilaudid) 0.5 mg IVP Q6 [facility] Last Admin: 08/14/16 17:09 Dose: 0.5 mg Sodium Chloride (Sodium Chloride 0.9%) 1,000 mls @ 100 mls/hr IV .Q10H [facility] Last Admin: 08/14/16 16:50 Dose: 100 mls/hr Lisinopril (Zestril) 2.5 mg PO DAILY [facility] Last Admin: 08/14/16 10:44 Dose: 2.5 mg Metoclopramide HCl (Reglan) 10 mg IVP Q8H PRN PRN Reason: Vomitus Metoprolol Tartrate (Lopressor) 12.5 mg PO BID [facility] Last Admin: 08/14/16 17:06 Dose: 12.5 mg Mometasone Furoate (Asmanex Twisthaler 220 Mcg) 1 puff IH QPM [facility] Last Admin: 08/13/16 17:26 Dose: 1 puff Multivitamins/Minerals (Therapeutic-M Tab) 1 tab PO 1000 [facility] Last Admin: 08/14/16 10:42 Dose: 1 tab Ondansetron HCl (Zofran Inj) 4 mg IVP Q6H PRN PRN Reason: Nausea/Vomiting - Labs Labs: 08/14/16 06:30 08/14/16 06:30 Attending/Attestation - Attestation I have personally seen and examined this patient.: Yes I have fully participated in the care of the patient.: Yes I have reviewed all pertinent clinical information, including history, physical exam and plan: Yes Notes (Text): 08/14/16 17:54 35 year old female with past medical history of sickle cell disease, hypertension, asthma, cerebral palsy, and bipolar/depression who presented with sickle cell crisis. She is on iv fluids and analgesics which we will taper. She was seen by restaurant inspector, Dr. Palacios. She received one unit of prbc transfusion since admission. Hemoglobin today is stable at 7.5. Will monitor closely as she has history of iron overload due to multiple transfusions in the past. Patient appears in depressed mood today. Does not answer to much questions except to one or two word answers. She is more withdrawn today as per staff as well. Will request for psychiatry evaluation. Marco Green MD Hospitalist.
[2016-08-14] MEDS: Aluminum Hydrox Gel 320 mg/5 ml Susp(480 ml) PO SCH (16:16)
[2016-08-14] MEDS: HYDROmorphone 0.5 mg/0.5 ml ISec IVP SCH ×2 (17:09→23:01)
[2016-08-14] MEDS: Mometasone 220 mcg/puff-14 puff Inh IH SCH (18:45)
[2016-08-15] MEDS: Sodium Chloride 0.9% 1,000 ML IV SCH ×2 (02:42→15:29)
[2016-08-15] MEDS: DiphenhydrAMINE 50 mg/ml Inj IVP PRN ×4 (05:04→23:17)
[2016-08-15] MEDS: HYDROmorphone 0.5 mg/0.5 ml ISec IVP SCH ×4 (05:04→23:17)
[2016-08-15 06:58] LABS: ADD MANUAL DIFF? NO
[2016-08-15 07:35] LABS: ALB/GLOB RATIO 0.7 (1.1-1.8); ALKALINE PHOSPHATASE 135 U/L (38-133); ALT/SGPT 93 U/L (7-56); AST/SGOT 143 U/L (15-39); BILIRUBIN,TOTAL 3.2 mg/dL (0.2-1.3); BLOOD UREA NITROGEN 8 mg/dL (7-21); CARBON DIOXIDE 28 mmol/L (21-33); CHLORIDE 108 mmol/L (98-107); GFR AFRICAN-AMERICAN > 60; GLUCOSE,RANDOM 81 mg/dL (70-110); MAGNESIUM 1.6 mg/dL (1.7-2.2); PHOSPHOROUS 3.2 mg/dL (2.5-4.5); POTASSIUM 3.8 mmol/L (3.6-5.0); SODIUM 140 mmol/L (132-148); TOTAL PROTEIN 6.8 g/dL (5.8-8.3)
[2016-08-15 07:37] LABS: BASO # 0.04 K/mm3 (0.0-2.0); BASO % 0.4 % (0.0-3.0); EOS # 0.2 (0.0-0.7); EOS % 1.9 % (1.5-5.0); GRAN # 4.87 (1.4-6.5); GRAN % 51.4 % (50.0-68.0); LYMPH # 3.4 (1.2-3.4); LYMPH % 35.6 % (22.0-35.0); MEAN CELL VOLUME 95.6 fL (80.0-105.0); MEAN CORPUSCULAR HEMOGLOBIN 32.3 pg (25.0-35.0); MEAN CORPUSCULAR HGB CONC 33.8 g/dl (31.0-37.0); MEAN PLATELET VOLUME 10.8 fl (7.0-11.0); MONO % 10.7 % (1.0-6.0); PLATELET COUNT 139 10^3/uL (120.0-450.0); RED CELL DISTRIBUTION WIDTH 24.8 % (11.5-14.5); WHITE BLOOD COUNT 9.5 10^3/ul (4.5-11.0)
[2016-08-15 07:43] LABS: HEMATOCRIT 21.6 % (36.0-48.0)
[2016-08-15] MEDS ORDERED: Magnesium Sulfate 2 GM in Sodium Chloride 0.9% 100 ML IVPB ONE (07:54)
[2016-08-15 08:12] LABS: RETIC% 24.75 % (0.5-1.5)
--- NOTE | 2016-08-15 10:27 | CON ---
DATE: 08/15/2016 HISTORY OF PRESENT ILLNESS: Shortly, the patient is a 35-year-old female with repor michelle history of bipolar disorder, cerebral palsy, developmental disability. The [facility]. The patient was seen in [facility] for outpatient. The patient was a dmitted on the medical side for evaluation of sickle cell crisis. Psych consult was called for evalu ation of mood symptoms. The patient has history of bipolar disorder on medication management. This patient is very familiar to this telegraphic typewriter operator from the previous admissions on the medical side. The patient was seen and evaluated today at the morning time. The patient presented to be sleepy. T he patient is on pain medication and Benadryl. The patient reported that she feels okay. Denied jhonny ng depressed. The patient denied hearing voices, denied seeing things, denied thoughts of harming he rself or others. PAST PSYCHIATRIC HISTORY: The patient has history of mental illness, cerebral palsy, but as per [facility] report, the patient has never been admitted to the psychiatric inpatient unit at least to the [facility]. MEDICATIONS: Reviewed. The patient is on Benadryl IV push, Depakote 250 b.i.d., Pepcid, folic acid, Robitussin, Dilaudid, lisinopril, Reglan, Lopressor. The patient also is on Zofran and sodium chlor [facility]. LABORATORY DATA: Reviewed. Hemoglobin 7.3, hematocrit 21.6, granulocytes within normal limits 4.87. Electrolytes: Chloride 108. AST and ALT are 143 and 93. Urinalysis: Blood trace. Microbiology: Reports reviewed. Discussed with the nursing staff. As per nursing staff, the patient wants to be on pain medication, asking [id number] to be given Dilaudid and Benadryl. After that, she wants to sleep all day lo ng. The patient does not have any agitation or aggression, but very low profile. Yesterday, the pat ient ate by herself. There are no signs of agitation or aggression, no signs of psychosis. This telegraphic typewriter operator called to the patient's pharmacy [facility] pharmacy, . Medications were confirmed in regard to the psychotropic medication. The patient was on Seroquel 100 mg daily. We will resume that. The patient was on Depakote 250 mg twice a day, multivitamins and folic acid. The patient was seen by ____ at [facility]. Last prescription was given in [place] [facility]. After that, Dr. Lyndsey Noble was giving the patient prescriptions, and the patient has frequent ho spitalizations to the medical side. MENTAL STATUS EXAMINATION: The patient presented to be sleepy, marginal personal hygiene. The patie nt's eye contact was intermittent. Mood described okay. Affect was flat. Thought process concrete. Thought content: The patient denied visual, auditory, or tactile hallucinations. Denied paranoid ideations. The patient denied thoughts of harming herself or others, denied intent or plan. Insight and judgment seem to be fair. Impulses are well controlled. IMPRESSION: As per history, the patient has bipolar disorder, developmental disability. The patient has also cerebral palsy. The patient has multiple medical issues - sickle cell, and the patient was admitted for evaluation and stabilization of sickle cell crisis. The patient also has history of fr equent urinary tract infection. PLAN: Continue current management. Depakote was resumed by medical team. We will follow up on Depa kote level tomorrow. Seroquel at the nighttime will be resumed. Please contact long term for more detailed information. Please make sure that the patient has a followup appointment at [facility]. Should you have any questions, give me a call back. This telegraphic typewriter operator will follow up o n this patient every other day. The patient seems to be stable. Should have any questions, give me a call back. Thank you very much for letting me participate in the care of your patient. Fadia Odonnell MD cc: [id number] TT: 08/15/2016 10:27:08 Confirmation # [id number] Dictation # [id number] manda
[2016-08-15] MEDS: Aluminum Hydrox Gel 320 mg/5 ml Susp(480 ml) PO SCH (10:45)
[2016-08-15] MEDS: Divalproex 250 mg DR (BID formulation) PO SCH ×2 (10:54→17:24)
[2016-08-15] MEDS: Multivitamin With Minerals Tab PO SCH (10:54)
--- NOTE | 2016-08-15 11:27 | CP.PCM.PN ---
<Rafat Vega - Last Filed: 08/15/16 11:27> Subjective - Date & Time of Evaluation Date of Evaluation: 08/15/16 Time of Evaluation: 11:25 - Subjective Subjective: Progress note. Attending: Dr. Green Pt seen and examined at bedside. No acute distress. No events overnight. Pt more alert during rounds, will get PT see. Psych consult pending. Plan for dc tomorrow. Objective - Vital Signs/Intake and Output Vital Signs (last 24 hours): Temp Pulse Resp BP Pulse Ox 98 F 81 18 132/84 95 08/15/16 08:31 08/15/16 10:52 08/15/16 08:31 08/15/16 10:52 08/15/16 08:31 Intake and Output: 08/15/16 08/15/16 06:59 18:59 Intake Total 3060 Balance 3060 - Medications Medications: Current Medications Acetaminophen (Tylenol 325mg Tab) 650 mg PO Q6H PRN PRN Reason: Fever >100.4 F Albuterol Sulfate (Albuterol 0.083% Inhal Rika (2.5 Mg/3 Ml) Ud) 2.5 mg IH Q2H PRN PRN Reason: SOb Aluminum Hydroxide (Aluminum Hydroxide Gel 320mg /5ml Susp (Bulk)) 30 ml PO DAILY [facility] Last Admin: 08/15/16 10:45 Dose: 30 ml Benzonatate (Tessalon Perles) 100 mg PO BID PRN PRN Reason: Cough Diphenhydramine HCl (Benadryl) 25 mg IVP Q6 PRN PRN Reason: Allergy symptoms Last Admin: 08/15/16 10:55 Dose: 25 mg Divalproex Sodium (Depakote Dr (*Bid*)) 250 mg PO BID [facility] PRN Reason: Protocol Last Admin: 08/15/16 10:54 Dose: 250 mg Famotidine (Pepcid) 20 mg PO BID [facility] Last Admin: 08/15/16 10:49 Dose: 20 mg Folic Acid (Folic Acid) 1 mg PO DAILY [facility] Last Admin: 08/15/16 10:54 Dose: 1 mg Guaifenesin (Robitussin) 200 mg PO Q4H PRN PRN Reason: Cough and congestion Last Admin: 08/15/16 05:21 Dose: 200 mg Hydromorphone HCl (Dilaudid) 0.5 mg IVP Q6 [facility] Last Admin: 08/15/16 11:03 Dose: 0.5 mg Sodium Chloride (Sodium Chloride 0.9%) 1,000 mls @ 100 mls/hr IV .Q10H [facility] Last Admin: 08/15/16 02:42 Dose: 100 mls/hr Lisinopril (Zestril) 2.5 mg PO DAILY [facility] Last Admin: 08/15/16 10:52 Dose: 2.5 mg Metoclopramide HCl (Reglan) 10 mg IVP Q8H PRN PRN Reason: Vomitus Metoprolol Tartrate (Lopressor) 12.5 mg PO BID [facility] Last Admin: 08/15/16 10:49 Dose: 12.5 mg Mometasone Furoate (Asmanex Twisthaler 220 Mcg) 1 puff IH QPM [facility] Last Admin: 08/13/16 17:26 Dose: 1 puff Multivitamins/Minerals (Therapeutic-M Tab) 1 tab PO 1000 [facility] Last Admin: 08/15/16 10:54 Dose: 1 tab Ondansetron HCl (Zofran Inj) 4 mg IVP Q6H PRN PRN Reason: Nausea/Vomiting Quetiapine Fumarate (Seroquel) 100 mg PO HS [facility] PRN Reason: Protocol - Labs Labs: 08/15/16 06:45 08/15/16 06:45 - Constitutional Appears: Non-toxic, No Acute Distress - Head Exam Head Exam: ATRAUMATIC, NORMAL INSPECTION, NORMOCEPHALIC - Eye Exam Eye Exam: EOMI - ENT Exam ENT Exam: Mucous Membranes Moist - Neck Exam Neck Exam: Full ROM, Normal Inspection - Respiratory Exam Respiratory Exam: NORMAL BREATHING PATTERN. absent: Respiratory Distress - Cardiovascular Exam Cardiovascular Exam: +S1, +S2 - GI/Abdominal Exam GI & Abdominal Exam: Soft, Tenderness, Normal Bowel Sounds - Extremities Exam Extremities Exam: Full ROM, Normal Inspection - Neurological Exam Neurological Exam: Alert, Awake, Oriented x3 - Psychiatric Exam Psychiatric exam: Normal Affect, Normal Mood - Skin Skin Exam: Dry, Intact, Normal Color, Warm Assessment and Plan - Assessment and Plan (Free Text) Assessment: This is a 35 yo female with past medical hx of cerebral palsy, bipolar disorder , depression, sickle cell disease, hypertension, anxiety, pancreatitis and asthma, CHF w/ EF of 35% admitted for intractable pain 2/2 to sickle cell disease. 1. Intractable Pain 2/2 sickle cell dx - Taper Dilaudid to 0.5mg Q6H for pain - D/ivonne Tramadol - Cont NS @ 200>> will decrease fluids in light of CHF hx>> NS 100 currently -will taper benadryl to IV q 6 hrs 2. Anemia - 2/2 Sickle cell disease -Heme Onc Consult; Dr Palacios; Recs appreciated -retic count trending down -s/p 1 unit; will f/u CBC to monitor for stability - Monitor CBC and retic count -continue folic acid daily 3. cerebral palsy -patient is only ambulatory with wheelchair -continue to monitor 4. bipolar disorder -will continue with depakote -psych consult. recs appreciated. 5. hypertension - Continue metoprolol and lisinopril 6. asthma, - PRN albuterol 7. CHF w/ EF of 35% -metoprolol 12.5mg BID -lisinopril 2.5mg daily -will decrease fluid rate. 8. Prophylaxis - SCD & Pepcid -heart healthy diet -PT to see and treat Dispo: plan for PT to see today, will get clearance from psych, plan for discharge tomorrow Case and plan was seen reviewed and discussed in detail with Dr Green. <Marco Green - Last Filed: 08/15/16 17:41> Objective - Vital Signs/Intake and Output Vital Signs (last 24 hours): Temp Pulse Resp BP Pulse Ox 98.2 F 79 20 103/72 95 08/15/16 16:00 08/15/16 16:00 08/15/16 16:00 08/15/16 16:00 08/15/16 16:00 Intake and Output: 08/15/16 08/15/16 06:59 18:59 Intake Total 3060 Balance 3060 - Medications Medications: Current Medications Acetaminophen (Tylenol 325mg Tab) 650 mg PO Q6H PRN PRN Reason: Fever >100.4 F Albuterol Sulfate (Albuterol 0.083% Inhal Rika (2.5 Mg/3 Ml) Ud) 2.5 mg IH Q2H PRN PRN Reason: SOb Aluminum Hydroxide (Aluminum Hydroxide Gel 320mg /5ml Susp (Bulk)) 30 ml PO DAILY [facility] Last Admin: 08/15/16 10:45 Dose: 30 ml Benzonatate (Tessalon Perles) 100 mg PO BID PRN PRN Reason: Cough Diphenhydramine HCl (Benadryl) 25 mg IVP Q6 PRN PRN Reason: Allergy symptoms Last Admin: 08/15/16 10:55 Dose: 25 mg Divalproex Sodium (Depakote Dr (*Bid*)) 250 mg PO BID [facility] PRN Reason: Protocol Last Admin: 08/15/16 10:54 Dose: 250 mg Famotidine (Pepcid) 20 mg PO BID [facility] Last Admin: 08/15/16 10:49 Dose: 20 mg Folic Acid (Folic Acid) 1 mg PO DAILY [facility] Last Admin: 08/15/16 10:54 Dose: 1 mg Guaifenesin (Robitussin) 200 mg PO Q4H PRN PRN Reason: Cough and congestion Last Admin: 08/15/16 05:21 Dose: 200 mg Hydromorphone HCl (Dilaudid) 0.5 mg IVP Q6 [facility] Last Admin: 08/15/16 11:03 Dose: 0.5 mg Sodium Chloride (Sodium Chloride 0.9%) 1,000 mls @ 100 mls/hr IV .Q10H [facility] Last Admin: 08/15/16 15:29 Dose: 100 mls/hr Lisinopril (Zestril) 2.5 mg PO DAILY [facility] Last Admin: 08/15/16 10:52 Dose: 2.5 mg Metoclopramide HCl (Reglan) 10 mg IVP Q8H PRN PRN Reason: Vomitus Metoprolol Tartrate (Lopressor) 12.5 mg PO BID [facility] Last Admin: 08/15/16 10:49 Dose: 12.5 mg Mometasone Furoate (Asmanex Twisthaler 220 Mcg) 1 puff IH QPM [facility] Last Admin: 08/14/16 18:45 Dose: Not Given Multivitamins/Minerals (Therapeutic-M Tab) 1 tab PO 1000 [facility] Last Admin: 08/15/16 10:54 Dose: 1 tab Ondansetron HCl (Zofran Inj) 4 mg IVP Q6H PRN PRN Reason: Nausea/Vomiting Quetiapine Fumarate (Seroquel) 100 mg PO HS [facility] PRN Reason: Protocol - Labs Labs: 08/15/16 06:45 08/15/16 06:45 Attending/Attestation - Attestation I have personally seen and examined this patient.: Yes I have fully participated in the care of the patient.: Yes I have reviewed all pertinent clinical information, including history, physical exam and plan: Yes Notes (Text): 08/15/16 17:39 35 year old female with past medical history of sickle cell disease, hypertension, asthma, cerebral palsy, and bipolar/depression who presented with sickle cell crisis. She is on iv fluids and analgesics. Hematology is following. She received one unit of prbc transfusion since admission. Hemoglobin has improved since. Will monitor closely as she has history of iron overload due to multiple transfusions in the past. Patient appears more alert today at her baseline. States she wasn't talking for the past few days because she "didn't feel like it". Psychiatry evaluation was requested from yesterday. D/c planning possibly tomorrow if no acute changes. Marco Green MD Hospitalist.
[2016-08-15] MEDS: Mometasone 220 mcg/puff-14 puff Inh IH SCH (17:19)
--- NOTE | 2016-08-15 17:20 | CP.PCM.PN ---
Subjective - Date & Time of Evaluation Date of Evaluation: 08/15/16 Time of Evaluation: 17:00 - Subjective Subjective: Appears better but reports to continued pain Objective - Vital Signs/Intake and Output Vital Signs (last 24 hours): Temp Pulse Resp BP Pulse Ox 98 F 81 18 132/84 95 08/15/16 08:31 08/15/16 10:52 08/15/16 08:31 08/15/16 10:52 08/15/16 08:31 Intake and Output: 08/15/16 08/15/16 06:59 18:59 Intake Total 3060 Balance 3060 - Medications Medications: Current Medications Acetaminophen (Tylenol 325mg Tab) 650 mg PO Q6H PRN PRN Reason: Fever >100.4 F Albuterol Sulfate (Albuterol 0.083% Inhal Rika (2.5 Mg/3 Ml) Ud) 2.5 mg IH Q2H PRN PRN Reason: SOb Aluminum Hydroxide (Aluminum Hydroxide Gel 320mg /5ml Susp (Bulk)) 30 ml PO DAILY [facility] Last Admin: 08/15/16 10:45 Dose: 30 ml Benzonatate (Tessalon Perles) 100 mg PO BID PRN PRN Reason: Cough Diphenhydramine HCl (Benadryl) 25 mg IVP Q6 PRN PRN Reason: Allergy symptoms Last Admin: 08/15/16 10:55 Dose: 25 mg Divalproex Sodium (Depakote Dr (*Bid*)) 250 mg PO BID [facility] PRN Reason: Protocol Last Admin: 08/15/16 10:54 Dose: 250 mg Famotidine (Pepcid) 20 mg PO BID [facility] Last Admin: 08/15/16 10:49 Dose: 20 mg Folic Acid (Folic Acid) 1 mg PO DAILY [facility] Last Admin: 08/15/16 10:54 Dose: 1 mg Guaifenesin (Robitussin) 200 mg PO Q4H PRN PRN Reason: Cough and congestion Last Admin: 08/15/16 05:21 Dose: 200 mg Hydromorphone HCl (Dilaudid) 0.5 mg IVP Q6 [facility] Last Admin: 08/15/16 11:03 Dose: 0.5 mg Sodium Chloride (Sodium Chloride 0.9%) 1,000 mls @ 100 mls/hr IV .Q10H [facility] Last Admin: 08/15/16 15:29 Dose: 100 mls/hr Lisinopril (Zestril) 2.5 mg PO DAILY [facility] Last Admin: 08/15/16 10:52 Dose: 2.5 mg Metoclopramide HCl (Reglan) 10 mg IVP Q8H PRN PRN Reason: Vomitus Metoprolol Tartrate (Lopressor) 12.5 mg PO BID [facility] Last Admin: 08/15/16 10:49 Dose: 12.5 mg Mometasone Furoate (Asmanex Twisthaler 220 Mcg) 1 puff IH QPM [facility] Last Admin: 08/14/16 18:45 Dose: Not Given Multivitamins/Minerals (Therapeutic-M Tab) 1 tab PO 1000 [facility] Last Admin: 08/15/16 10:54 Dose: 1 tab Ondansetron HCl (Zofran Inj) 4 mg IVP Q6H PRN PRN Reason: Nausea/Vomiting Quetiapine Fumarate (Seroquel) 100 mg PO HS [facility] PRN Reason: Protocol - Labs Labs: 08/15/16 06:45 08/15/16 06:45 - Head Exam Head Exam: ATRAUMATIC - Eye Exam Eye Exam: Normal appearance - ENT Exam ENT Exam: Mucous Membranes Dry - Respiratory Exam Respiratory Exam: Decreased Breath Sounds - Cardiovascular Exam Cardiovascular Exam: +S1, +S2 - GI/Abdominal Exam GI & Abdominal Exam: Normal Bowel Sounds - Extremities Exam Extremities Exam: Pedal Edema Assessment and Plan (1) Sickle cell pain crisis Assessment & Plan: IV fluids, pain meds, folic acid, 02 via NC s/p PRBC transfusion Status: Acute (2) Iron overload due to repeated red blood cell transfusions Assessment & Plan: outpatient chelation Status: Chronic (3) Sickle cell anemia Assessment & Plan: folic acid and hydrea Status: Chronic
[2016-08-16] MEDS: Sodium Chloride 0.9% 1,000 ML IV SCH (01:51)
[2016-08-16] MEDS: HYDROmorphone 0.5 mg/0.5 ml ISec IVP SCH ×3 (05:53→17:39)
[2016-08-16] MEDS: DiphenhydrAMINE 50 mg/ml Inj IVP PRN ×3 (05:53→17:38)
[2016-08-16] MEDS: Aluminum Hydrox Gel 320 mg/5 ml Susp(480 ml) PO SCH (11:23)
[2016-08-16] MEDS: Multivitamin With Minerals Tab PO SCH (11:34)
[2016-08-16] MEDS ORDERED: DiphenhydrAMINE 50 mg/ml Inj ONE (11:38)
[2016-08-16] MEDS ORDERED: Divalproex 250 mg DR (BID formulation) PO ONE (11:38)
[2016-08-16] MEDS ORDERED: HYDROmorphone 0.5 mg/0.5 ml ISec ONE (11:40)
[2016-08-16] MEDS ORDERED: Alum-Mag Hydrox-Simethicone Susp (30 mL) ONE (11:40)
[2016-08-16] MEDS: Divalproex 250 mg DR (BID formulation) PO SCH ×2 (11:40→17:31)
--- NOTE | 2016-08-16 13:06 | CP.PCM.DIS ---
<Rafat Vega - Last Filed: 08/17/16 09:56> Provider - Provider Date of Admission: 08/09/16 15:34 Attending physician: Marco Green MD Primary care physician: Charissa Gill MD Consults: Consults Philip Odonnell Time Spent in preparation of Discharge (in minutes): 45 Hospital Course - Lab Results Lab Results: Micro Results 08/10/16 06:45 Blood-Venous Blood Culture - Final NO GROWTH AFTER 5 DAYS 08/10/16 06:45 Blood-Venous Gram Stain - Final TEST NOT PERFORMED 08/11/16 06:00 Urine Urine Culture - Final 10-50,000 CFU/ML. MULTIPLE SPECIES. PROBABLE CONTAMINATION. Most Recent Lab Values WBC 9.5 10^3/ul (4.5-11.0) 08/15/16 06:45 RBC 2.26 10^6/uL (3.5-6.1) L 08/15/16 06:45 Hgb 7.3 gm/dL (12.0-16.0) L 08/15/16 06:45 Hct 21.6 % (36.0-48.0) L 08/15/16 06:45 MCV 95.6 fL (80.0-105.0) 08/15/16 06:45 MCH 32.3 pg (25.0-35.0) 08/15/16 06:45 MCHC 33.8 g/dl (31.0-37.0) 08/15/16 06:45 RDW 24.8 % (11.5-14.5) H 08/15/16 06:45 Plt Count 139 10^3/uL (120.0-450.0) 08/15/16 06:45 MPV 10.8 fl (7.0-11.0) 08/15/16 06:45 Gran % 51.4 % (50.0-68.0) 08/15/16 06:45 Lymph % (Auto) 35.6 % (22.0-35.0) H 08/15/16 06:45 Dawes % (Auto) 10.7 % (1.0-6.0) H 08/15/16 06:45 Eos % (Auto) 1.9 % (1.5-5.0) 08/15/16 06:45 Baso % (Auto) 0.4 % (0.0-3.0) 08/15/16 06:45 Gran # 4.87 (1.4-6.5) 08/15/16 06:45 Lymph # 3.4 (1.2-3.4) 08/15/16 06:45 Dawes # 1.0 (0.1-0.6) H 08/15/16 06:45 Eos # 0.2 (0.0-0.7) 08/15/16 06:45 Baso # 0.04 K/mm3 (0.0-2.0) 08/15/16 06:45 Retic Count 24.75 % (0.5-1.5) H* 08/15/16 06:45 Sodium 140 mmol/L (132-148) 08/15/16 06:45 Potassium 3.8 mmol/L (3.6-5.0) 08/15/16 06:45 Chloride 108 mmol/L (98-107) H 08/15/16 06:45 Carbon Dioxide 28 mmol/L (21-33) 08/15/16 06:45 Anion Gap 8 (10-20) L 08/15/16 06:45 BUN 8 mg/dL (7-21) 08/15/16 06:45 Creatinine 0.4 mg/dL (0.5-1.4) L 08/15/16 06:45 Est GFR ( Amer) > 60 08/15/16 06:45 Est GFR (Non-Af Amer) > 60 08/15/16 06:45 Random Glucose 81 mg/dL (70-110) 08/15/16 06:45 Calcium 8.0 mg/dL (8.4-10.5) L 08/15/16 06:45 Phosphorus 3.2 mg/dL (2.5-4.5) 08/15/16 06:45 Magnesium 1.6 mg/dL (1.7-2.2) L 08/15/16 06:45 Total Bilirubin 3.2 mg/dL (0.2-1.3) H 08/15/16 06:45 AST 143 U/L (15-39) H 08/15/16 06:45 ALT 93 U/L (7-56) H 08/15/16 06:45 Alkaline Phosphatase 135 U/L (38-133) H 08/15/16 06:45 Lactate Dehydrogenase 884 U/L (333-699) H 08/09/16 03:19 Total Protein 6.8 g/dL (5.8-8.3) 08/15/16 06:45 Albumin 2.9 g/dL (3.0-4.8) L 08/15/16 06:45 Globulin 3.9 gm/dL 08/15/16 06:45 Albumin/Globulin Ratio 0.7 (1.1-1.8) L 08/15/16 06:45 Urine Color Yellow (YELLOW) 08/11/16 06:00 Urine Appearance Clear (CLEAR) 08/11/16 06:00 Urine pH 6.0 (4.7-8.0) 08/11/16 06:00 Ur Specific [place] 1.015 (1.005-1.035) 08/11/16 06:00 Urine Protein Negative mg/dL (<30 mg/dL) 08/11/16 06:00 Urine Glucose (UA) Negative mg/dL (NEGATIVE) 08/11/16 06:00 Urine Ketones Negative mg/dL (NEGATIVE) 08/11/16 06:00 Urine Blood Trace-intact (NEGATIVE) H 08/11/16 06:00 Urine Nitrate Negative (NEGATIVE) 08/11/16 06:00 Urine Bilirubin Negative (NEGATIVE) 08/11/16 06:00 Urine Urobilinogen 1.0 E.U./dL (<1 E.U./dL) H 08/11/16 06:00 Ur Leukocyte Esterase Negative Luz/uL (NEGATIVE) 08/11/16 06:00 Urine RBC 0 - 2 /hpf (0-2) 08/11/16 06:00 Urine WBC 1 - 3 /hpf (0-6) 08/11/16 06:00 Ur Epithelial Cells 0 - 2 /hpf (0-5) 08/11/16 06:00 Urine Bacteria Rare (NEG) 08/11/16 06:00 Urine HCG, Qual Negative (NEGATIVE) 08/09/16 01:07 Valproic Acid 29 ug/mL (50.0-100.0) L 08/16/16 06:30 Blood Type B POSITIVE 08/10/16 12:01 Antibody Screen Negative 08/10/16 12:01 Crossmatch See Detail 08/10/16 12:01 BBK History Checked Patient has bt 08/10/16 12:01 - Hospital Course Hospital Course: Admit date- 08/09 DC date- 08/16 Attending: Norma Consults Philip Odonnell Stable for discharge Procedures- none No complications HPI: see h/p Labs: see lab data Hospital course This is a 35 yo female with past medical hx of cerebral palsy, bipolar disorder , depression, sickle cell disease, hypertension, anxiety, pancreatitis and asthma, CHF w/ EF of 35% admitted for intractable pain 2/2 to sickle cell disease. 1. Intractable Pain 2/2 sickle cell dx - Dilaudid given, then tapered to 0.5mg Q6H for pain -Tramadol given, then D/ivonne Tramadol - NS @ 200>> will decrease fluids in light of CHF hx>> NS 100 currently -benadryl given then, will taper benadryl to IV q 6 hrs 2. Anemia - 2/2 Sickle cell disease -Heme Onc Consult; Dr Palacios; Recs appreciated -retic count elevated, then retic count trending down -s/p 1 unit; will f/u CBC to monitor for stability - Monitor CBC and retic count -continue folic acid daily 3. cerebral palsy -patient is only ambulatory with wheelchair -continue to monitor 4. bipolar disorder -will continue with depakote -psych consult. recs appreciated. -seroquel added 5. hypertension - Continue metoprolol and lisinopril 6. asthma, - PRN albuterol 7. CHF w/ EF of 35% -metoprolol 12.5mg BID -lisinopril 2.5mg daily -will decrease fluid rate. 8. Prophylaxis - SCD & Pepcid -heart healthy diet -PT to see and treat DC meds: 1. depakote 250 mg PO BID 2. folic acid 1 mg po daily 3. lisinopril 2.5 mg po daily 4. lopressor 12.5 mg BID 5. mometasone inhaler 6. MVs daily 7. seroquel 100 mg PO HS DC instructions Please return if condition worsens. Please take all rx as prescribed. Please f/ u with heme onc as needed. Please fu with primary care doctor within 3 days - Date & Time of H&P Date of H&P: 08/09/16 Time of H&P: 05:03 Discharge Exam - Head Exam Head Exam: ATRAUMATIC - Eye Exam Eye Exam: EOMI - ENT Exam ENT Exam: Mucous Membranes Moist - Neck Exam Neck exam: Full Rom, Normal Inspection - Respiratory Exam Respiratory Exam: NORMAL BREATHING PATTERN, UNREMARKABLE - Cardiovascular Exam Cardiovascular Exam: +S1, +S2 - GI/Abdominal Exam GI & Abdominal Exam: Normal Bowel Sounds, Unremarkable - Extremities Exam Extremities exam: full ROM, normal inspection - Neurological Exam Neurological exam: Alert, Oriented x3 - Skin Skin Exam: Dry, Intact, Normal Color, Warm Discharge Plan - Discharge Medications Prescriptions: QUEtiapine [SEROquel] 100 mg PO HS #30 tab - Follow Up Plan Condition: STABLE Disposition: HOME/ ROUTINE Instructions: Chronic Pain (DC), Sickle Cell Crisis (DC), Sickle Cell Anemia ( DC), How to Care for Your Implanted Venous Access Port (DC), Fall Prevention (DC ) Additional Instructions: Discharge patient to home today. Follow up with PCP in the office next week. Report to the ED if your symptoms worsen. Referrals: Charissa Gill MD [Primary Care Provider] - <Marco Green - Last Filed: 08/17/16 13:55> Provider - Provider Date of Admission: 08/09/16 15:34 Attending physician: Marco Green MD Primary care physician: Charissa Gill MD Hospital Course - Lab Results Lab Results: Micro Results 08/10/16 06:45 Blood-Venous Blood Culture - Final NO GROWTH AFTER 5 DAYS 08/10/16 06:45 Blood-Venous Gram Stain - Final TEST NOT PERFORMED 08/11/16 06:00 Urine Urine Culture - Final 10-50,000 CFU/ML. MULTIPLE SPECIES. PROBABLE CONTAMINATION. Most Recent Lab Values WBC 9.5 10^3/ul (4.5-11.0) 08/15/16 06:45 RBC 2.26 10^6/uL (3.5-6.1) L 08/15/16 06:45 Hgb 7.3 gm/dL (12.0-16.0) L 08/15/16 06:45 Hct 21.6 % (36.0-48.0) L 08/15/16 06:45 MCV 95.6 fL (80.0-105.0) 08/15/16 06:45 MCH 32.3 pg (25.0-35.0) 08/15/16 06:45 MCHC 33.8 g/dl (31.0-37.0) 08/15/16 06:45 RDW 24.8 % (11.5-14.5) H 08/15/16 06:45 Plt Count 139 10^3/uL (120.0-450.0) 08/15/16 06:45 MPV 10.8 fl (7.0-11.0) 08/15/16 06:45 Gran % 51.4 % (50.0-68.0) 08/15/16 06:45 Lymph % (Auto) 35.6 % (22.0-35.0) H 08/15/16 06:45 Dawes % (Auto) 10.7 % (1.0-6.0) H 08/15/16 06:45 Eos % (Auto) 1.9 % (1.5-5.0) 08/15/16 06:45 Baso % (Auto) 0.4 % (0.0-3.0) 08/15/16 06:45 Gran # 4.87 (1.4-6.5) 08/15/16 06:45 Lymph # 3.4 (1.2-3.4) 08/15/16 06:45 Dawes # 1.0 (0.1-0.6) H 08/15/16 06:45 Eos # 0.2 (0.0-0.7) 08/15/16 06:45 Baso # 0.04 K/mm3 (0.0-2.0) 08/15/16 06:45 Retic Count 24.75 % (0.5-1.5) H* 08/15/16 06:45 Sodium 140 mmol/L (132-148) 08/15/16 06:45 Potassium 3.8 mmol/L (3.6-5.0) 08/15/16 06:45 Chloride 108 mmol/L (98-107) H 08/15/16 06:45 Carbon Dioxide 28 mmol/L (21-33) 08/15/16 06:45 Anion Gap 8 (10-20) L 08/15/16 06:45 BUN 8 mg/dL (7-21) 08/15/16 06:45 Creatinine 0.4 mg/dL (0.5-1.4) L 08/15/16 06:45 Est GFR ( Amer) > 60 08/15/16 06:45 Est GFR (Non-Af Amer) > 60 08/15/16 06:45 Random Glucose 81 mg/dL (70-110) 08/15/16 06:45 Calcium 8.0 mg/dL (8.4-10.5) L 08/15/16 06:45 Phosphorus 3.2 mg/dL (2.5-4.5) 08/15/16 06:45 Magnesium 1.6 mg/dL (1.7-2.2) L 08/15/16 06:45 Total Bilirubin 3.2 mg/dL (0.2-1.3) H 08/15/16 06:45 AST 143 U/L (15-39) H 08/15/16 06:45 ALT 93 U/L (7-56) H 08/15/16 06:45 Alkaline Phosphatase 135 U/L (38-133) H 08/15/16 06:45 Lactate Dehydrogenase 884 U/L (333-699) H 08/09/16 03:19 Total Protein 6.8 g/dL (5.8-8.3) 08/15/16 06:45 Albumin 2.9 g/dL (3.0-4.8) L 08/15/16 06:45 Globulin 3.9 gm/dL 08/15/16 06:45 Albumin/Globulin Ratio 0.7 (1.1-1.8) L 08/15/16 06:45 Urine Color Yellow (YELLOW) 08/11/16 06:00 Urine Appearance Clear (CLEAR) 08/11/16 06:00 Urine pH 6.0 (4.7-8.0) 08/11/16 06:00 Ur Specific [place] 1.015 (1.005-1.035) 08/11/16 06:00 Urine Protein Negative mg/dL (<30 mg/dL) 08/11/16 06:00 Urine Glucose (UA) Negative mg/dL (NEGATIVE) 08/11/16 06:00 Urine Ketones Negative mg/dL (NEGATIVE) 08/11/16 06:00 Urine Blood Trace-intact (NEGATIVE) H 08/11/16 06:00 Urine Nitrate Negative (NEGATIVE) 08/11/16 06:00 Urine Bilirubin Negative (NEGATIVE) 08/11/16 06:00 Urine Urobilinogen 1.0 E.U./dL (<1 E.U./dL) H 08/11/16 06:00 Ur Leukocyte Esterase Negative Luz/uL (NEGATIVE) 08/11/16 06:00 Urine RBC 0 - 2 /hpf (0-2) 08/11/16 06:00 Urine WBC 1 - 3 /hpf (0-6) 08/11/16 06:00 Ur Epithelial Cells 0 - 2 /hpf (0-5) 08/11/16 06:00 Urine Bacteria Rare (NEG) 08/11/16 06:00 Urine HCG, Qual Negative (NEGATIVE) 08/09/16 01:07 Valproic Acid 29 ug/mL (50.0-100.0) L 08/16/16 06:30 Blood Type B POSITIVE 08/10/16 12:01 Antibody Screen Negative 08/10/16 12:01 Crossmatch See Detail 08/10/16 12:01 BBK History Checked Patient has bt 08/10/16 12:01 Attending/Attestation - Attestation I have personally seen and examined this patient.: Yes I have fully participated in the care of the patient.: Yes I have reviewed all pertinent clinical information, including history, physical exam and plan: Yes Notes (Text): 08/16/16 35 year old female with past medical history of sickle cell disease, hypertension, asthma, cerebral palsy, and bipolar/depression who presented with sickle cell crisis. She is on iv fluids and analgesics. Her symptoms improved. She was seen by hematology. She received one unit of prbc transfusion since admission. Hemoglobin has improved since. She has history of iron overload due to multiple transfusions in the past. Overall her symptoms improved. She is discharged home to follow up with her pmd. Follow up with hematology. Marco Green MD Hospitalist.
[2016-08-16 17:55] VITALS: BP 113/78; PULSE 84
[2016-08-16 17:56] VITALS: RESP 20; TEMP 98.5; O2SAT 95
[2016-08-16] MEDS: Mometasone 220 mcg/puff-14 puff Inh IH SCH (18:12)
== END 2016-08-16 19:38 | disposition home or self-care (01) | DRG 395 ==
LOC: ED 00:24 → ERH 04:43 → 5RSO 05:46 → OBSVTOIN 15:34
PROVIDERS: ADMIT Hospitalist; ATTEND Internal Medicine
PROC: 30233N1 Transfusion of Nonautologous Red Blood Cells into Peripheral Vein, Percutaneous Approach (ICD-10-PCS; principal; 2016-08-11)
DX: D57.00 Hb-SS disease with crisis, unspecified (principal); I11.0 Hypertensive heart disease with heart failure; I50.9 Heart failure, unspecified; J45.909 Unspecified asthma, uncomplicated; G80.9 Cerebral palsy, unspecified; F41.9 Anxiety disorder, unspecified; F31.9 Bipolar disorder, unspecified; E83.111 Hemochromatosis due to repeated red blood cell transfusions; Z88.6 Allergy status to analgesic agent; Z83.2 Family history of diseases of the blood and blood-forming organs and certain disorders involving the immune mechanism; Z87.891 Personal history of nicotine dependence

== ENCOUNTER 2016-09-24 12:28 | Emergency (ER) | payer OTHER ==
--- NOTE | 2016-09-24 13:01 | ED PDOC ---
Arrival/HPI - General Chief Complaint: Psychiatric Evaluation Time Seen by Provider: 09/24/16 12:45 Historian: Patient - History of Present Illness Narrative History of Present Illness (Text): 09/24/16 13:00 A 35 year old female, whose past medical history includes cerebral palsy, bipolar disorder, depression, sickle cell disease, hypertension, pancreatitis, asthma and CHF, was sent into the emergency department from long term for evaluation. Patient was uncooperative and refusing to take her medication. On evaluation in emergency room, patient states she wants to kill herself. She reports her plan is to drink bleach. Patient denies any physical complaints. Patient is not forth coming with history. Time/Duration: Prior to Arrival Symptom Course: Unchanged Quality: Other Context: Other (detention) Past Medical History - Provider Review Nursing Documentation Reviewed: Yes - Infectious Disease Hx of Infectious Diseases: None - Tetanus Immunization Tetanus Immunization: Up to Date - Reproductive Menopause: No - Cardiac Hx Angina: Yes Hx Hypertension: Yes - Pulmonary Hx Asthma: Yes - Neurological Hx Neurological Disorder: No Other/Comment: CP - HEENT Hx HEENT Disorder: No - Renal Hx Renal Disorder: No - Endocrine/Metabolic Hx Endocrine Disorders: Yes - Hematological/Oncological Hx Anemia: Yes - Integumentary Hx Dermatological Disorder: Yes Hx Eczema: Yes - Musculoskeletal/Rheumatological Hx Falls: No - Gastrointestinal Hx Gastrointestinal Disorders: Yes Hx Gastroesophageal Reflux: Yes Hx Pancreatitis: Yes - Genitourinary/Gynecological Hx Genitourinary Disorders: Yes Hx Urinary Tract Infection: Yes - Psychiatric Hx Psychophysiologic Disorder: Yes Hx Anxiety: Yes Hx Bipolar Disorder: Yes Hx Substance Use: No - Surgical History Hx Cholecystectomy: Yes Hx Splenectomy: Yes - Anesthesia Hx Anesthesia: Yes Hx Anesthesia Reactions: No Hx Malignant Hyperthermia: No - Suicidal Assessment Feels Threatened In Home Enviroment: No Family/Social History - Physician Review Nursing Documentation Reviewed: Yes Family/Social History: No Known Family HX Smoking Status: Former Smoker Hx Alcohol Use: Yes Hx Substance Use: No Hx Substance Use Treatment: No Allergies/Home Meds Allergies/Adverse Reactions: Allergies acetaminophen Allergy (Verified 09/24/16 12:42) RASH aspirin Allergy (Verified 09/24/16 12:42) RASH coconut oil Allergy (Verified 09/24/16 12:42) RASH morphine Allergy (Verified 09/24/16 12:42) SWELLING mushroom Allergy (Verified 09/24/16 12:42) URTICARIA oxycodone Allergy (Verified 09/24/16 12:42) RASH Review of Systems - Physician Review All systems were reviewed & negative as marked: Yes - Review of Systems Constitutional: absent: Fevers, Night Sweats Respiratory: absent: SOB Cardiovascular: absent: Chest Pain Gastrointestinal: absent: Abdominal Pain, Nausea, Vomiting Psychiatric: Suicidal Ideation Physical Exam Vital Signs Reviewed: Yes Vital Signs Temp Pulse Resp BP Pulse Ox 09/24/16 20:40 16 147/74 09/24/16 14:29 82 18 112/78 97 09/24/16 12:40 98 F 90 16 108/72 98 Temperature: Afebrile Blood Pressure: Normal Pulse: Regular Respiratory Rate: Normal Appearance: Positive for: Well-Appearing, Non-Toxic, Comfortable Pain Distress: None Mental Status: Positive for: Alert and Oriented X 3, other (Uncooperative) - Systems Exam Head: Present: Atraumatic, Normocephalic Pupils: Present: PERRL Conjunctiva: Present: Other (conjunctival pallor) Mouth: Present: Other (On examination, patient refused to open her mouth) Neck: Present: Normal Range of Motion Respiratory/Chest: Present: Clear to Auscultation, Good Air Exchange. No: Respiratory Distress, Accessory Muscle Use Cardiovascular: Present: Regular Rate and Rhythm, Normal S1, S2. No: Murmurs Abdomen: Present: Normal Bowel Sounds. No: Tenderness, Distention, Peritoneal Signs Back: Present: Normal Inspection Upper Extremity: Present: Normal Inspection. No: Cyanosis, Edema Lower Extremity: Present: Normal Inspection. No: Edema Neurological: Present: GCS=15, CN II-XII Intact, Speech Normal Skin: Present: Warm, Dry, Normal Color. No: Rashes Psychiatric: Present: Alert, Oriented x 3, Suicidal Ideation Medical Decision Making ED Course and Treatment: 09/24/16 13:00 Impression: A 35 year old female with multiple medical conditions, which include depression and bipolar disorder, here for suicidal ideation. Patient is uncooperative with history and during physical exam, but is not combative. Plan is to medically clear patient and obtain PES evaluation. Plan: -- Chest xray -- EKG -- Labs -- Urinalysis -- Reassess and disposition Prior Visits: Notes and results from previous visits were reviewed. Patient last seen in the ED on 08/09/16 and hospitalized for sickle cell pain crisis. Patient had an echocardiogram performed on 07/17/16 which showed: Report Date: 07/18/16 19:54 Procedure: Two-dimensional and M-mode echocardiogram with Doppler and color Doppler. Dictated By: Jena Stewart MD Conclusion: 1. The left ventricle is normal size. 2. There is normal left ventricular wall thickness. 3. The systolic function is mildly to moderately impaired. EF-35-40% 4. There is trace aortic regurgitation. 5. Mitral regurgitation is mild to moderate. 6. There is moderate tricuspid regurgitation. RVSP-45 mmof hg. 7. The IVC is dilated 8. There is no pericardial effusion. 9. No thrombus or vegetation noted. Progress Notes: 09/24/16 14:50 Patient has been medically cleared for any acute medical conditions at this time. Abnormal lab results are chronic, with no acute or concerning findings. Patient was seen by PES breanne Alexander, who states patient will need medical screening from [facility]. EKG shows sinus tachycardia at [address]/T changes, normal intervals, normal axis. Interpreted by me. Patient's old ekg's are variable with nonspecific ST/T changes such as those present on previous. Today's EKG shows no changes c/w 10/18/15. Patient's recent echo is noted, no significant changes c/w previous in 01/09. CXR results are noted below. Patient with no cough or cp or fever or leukocytosis, changes are unlikely to be pneumonia. Report Date : 09/24/2016 17:41:28 Procedure: Chest xray Dictator : Keiko Wheeler MD IMPRESSION: Hypoinflation. Right-sided MediPort. Mild atelectasis or infiltrate at the medial mid right middle lobe. Borderline cardiomegaly, likely exaggerated by hypoinflation. Ectatic aorta. 09/24/16 20:48 As stated above, patient has been medically cleared awaiting [facility] screen. 09/24/16 23:28 Patient seen by [facility] and screened; now saying they want a repeat CBC with diff and repeat LFTs. - Lab Interpretations Lab Results: 09/24/16 14:00 09/24/16 14:00 Lab Results 09/24/16 16:40: Urine Opiates Screen Negative, Urine Methadone Screen Negative, Ur Barbiturates Screen Negative, Ur Phencyclidine Scrn Negative, Ur Amphetamines Screen Negative, U Benzodiazepines Scrn Negative, U Oth Cocaine Metabols Negative, U Cannabinoids Screen Negative 09/24/16 16:40: Urine Color Yellow, Urine Appearance Clear, Urine pH 7.5, Ur Specific [place] 1.010, Urine Protein Trace H, Urine Glucose (UA) Negative, Urine Ketones Negative, Urine Blood Trace-intact H, Urine Nitrate Negative, Urine Bilirubin Moderate H, Urine Urobilinogen >=8.0, Ur Leukocyte Esterase Negative, Urine RBC 0 - 2, Urine WBC 0 - 2, Ur Epithelial Cells 0 - 2, Urine HCG , Qual Negative 09/24/16 14:00: Troponin I 0.02 09/24/16 14:00: Beta HCG, Quant < 2.39 09/24/16 14:00: PT 13.3 H, INR 1.23 H, APTT 27.5 09/24/16 14:00: Alcohol, Quantitative < 10 09/24/16 14:00: Sodium 143, Potassium 4.5, Chloride 105, Carbon Dioxide 26, Anion Gap 17, BUN 11, Creatinine 0.4 L, Est GFR ( Amer) > 60, Est GFR ( Non-Af Amer) > 60, Random Glucose 103, Calcium 9.0, Total Bilirubin 5.5 H, AST 208 H, ALT 113 H, Alkaline Phosphatase 132, Total Protein 8.6 H, Albumin 4.0, Globulin 4.6, Albumin/Globulin Ratio 0.9 L, Lipase 56 09/24/16 14:00: WBC 8.2, RBC 2.04 L, Hgb 7.7 L, Hct 21.4 L, MCV 104.9, MCH 37.7 H, MCHC 36.0, RDW 26.8 H, Plt Count 84 L, MPV 10.3, Corrected WBC (Man) 7.7, Neutrophils % (Manual) 80 H, Band Neutrophils % 1, Lymphocytes % (Manual) 12 L, Monocytes % (Manual) 7 H, Nucleated RBC % 6, Platelet Evaluation Low, Hypochromasia 2+, Poikilocytosis (manual 1+, Anisocytosis (manual) 1+, Microcytosis (manual) Slight, Macrocytosis (manual) Slight, Sickle Cells 1+, Target Cells Slight, Tear Drop Cells Slight, Ovalocytes Slight I have reviewed the lab results: Yes - RAD Interpretation Radiology Orders: 09/24/16 13:03 CHEST PORTABLE [RAD] Stat - Scribe Statement The provider has reviewed the documentation as recorded by the Scribe Nelly Armenta Provider Scribe Attestation: All medical record entries made by the Scribe were at my direction and personally dictated by me. I have reviewed the chart and agree that the record accurately reflects my personal performance of the history, physical exam, medical decision making, and the department course for this patient. I have also personally directed, reviewed, and agree with the discharge instructions and disposition. Disposition/Present on Arrival - Present on Arrival Any Indicators Present on Arrival: No History of DVT/PE: No History of Uncontrolled Diabetes: No Urinary Catheter: No History of Decub. Ulcer: No History Surgical Site Infection Following: None - Disposition Have Diagnosis and Disposition been Completed?: Yes Diagnosis: Suicidal ideation Disposition Time: 23:30 Condition: FAIR Forms: [employer] ([place])
[2016-09-24 14:12] LABS: MEAN CELL VOLUME 104.9 fL (80.0-105.0); MEAN CORPUSCULAR HEMOGLOBIN 37.7 pg (25.0-35.0); MEAN PLATELET VOLUME 10.3 fl (7.0-11.0); PLATELET COUNT 84 10^3/uL (120.0-450.0); RBC 2.04 10^6/uL (3.5-6.1); RED CELL DISTRIBUTION WIDTH 26.8 % (11.5-14.5); WHITE BLOOD COUNT 8.2 10^3/ul (4.5-11.0)
[2016-09-24 14:15] LABS: HEMOGLOBIN 7.7 gm/dL (12.0-16.0)
[2016-09-24 14:21] LABS: ALB/GLOB RATIO 0.9 (1.1-1.8); ALT/SGPT 113 U/L (7-56); AST/SGOT 208 U/L (15-39); BLOOD UREA NITROGEN 11 mg/dL (7-21); GFR AFRICAN-AMERICAN > 60; GFR NON-AFRICAN AMERICAN > 60; LIPASE 56 U/L (23-300)
[2016-09-24 14:23] LABS: INR 1.23 (0.93-1.08); PARTIAL THROMBOPLASTIN TIME 27.5 Seconds (23.7-30.8); PROTHROMBIN TIME 13.3 Seconds (9.9-11.8)
[2016-09-24 14:33] LABS: BAND 1 % (0-2); CORRECTED WBC 7.7 K/mm3 (4.5-11.0); LYMPHOCYTE 12 % (22.0-35.0); MONOCYTE 7 % (1.0-6.0); NEUTROPHIL 80 % (50.0-70.0); NUCLEATED RED BLOOD CELL 6 %
[2016-09-24 14:35] LABS: ANISOCYTOSIS 1+; HYPOCHROMIA 2+; MICROCYTOSIS SLIGHT; POIKILOCYTOSIS 1+; TARGET CELLS SLIGHT
[2016-09-24 14:36] LABS: OVALOCYTES SLIGHT; PLATELET ESTIMATE LOW (NORMAL); SICKLE CELLS 1+; TEAR DROP CELLS SLIGHT
[2016-09-24 17:00] LABS: PH,URINE 7.5 (4.7-8.0); URINE BILIRUBIN MODERATE (NEGATIVE); URINE BLOOD TRACE-INTACT (NEGATIVE); URINE GLUCOSE (UA) NEGATIVE (NEGATIVE); URINE LEUKOCYTE ESTERASE NEGATIVE Leu/uL (NEGATIVE); URINE NITRATE NEGATIVE (NEGATIVE); URINE PROTEIN TRACE mg/dL (<30 mg/dL); URINE UROBILINOGEN >=8.0 E.U./dL (<1 E.U./dL)
[2016-09-24 17:22] LABS: URINE APPEARANCE CLEAR (CLEAR); URINE COLOR YELLOW (YELLOW)
[2016-09-24 17:23] LABS: HCG,QUALITATIVE URINE NEGATIVE (NEGATIVE); URINE EPITHELIAL CELLS 0 - 2 /hpf (0-5); URINE RBC 0 - 2 /hpf (0-2); URINE WBC 0 - 2 /hpf (0-6)
[2016-09-24 17:39] LABS: BARBITURATES, UR NEGATIVE (NEGATIVE); BENZODIAZEPINES, UR NEGATIVE (NEGATIVE); OPIATES, UR NEGATIVE (NEGATIVE); PHENCYCLIDINE, UR NEGATIVE (NEGATIVE)
--- NOTE | 2016-09-24 17:43 | RAD ---
HISTORY: psych COMPARISON: Chest x-ray performed 08/09/16 TECHNIQUE: Chest, one view. FINDINGS: Examination limited by habitus and hypoinflation. Right-sided MediPort extends to the expected location of the cavoatrial junction. LUNGS: Mild atelectasis or infiltrate at the medial mid right middle lobe. Please note that chest x-ray has limited sensitivity for the detection of pulmonary masses. PLEURA: No significant pleural effusion identified. No definite pneumothorax . CARDIOVASCULAR: Borderline cardiomegaly, presumably magnified by hypoinflation. Ectatic aorta. OSSEOUS STRUCTURES: No acute osseous abnormality identified. VISUALIZED UPPER ABDOMEN: Unremarkable. OTHER FINDINGS: None. IMPRESSION: Hypoinflation. Right-sided MediPort. Mild atelectasis or infiltrate at the medial mid right middle lobe. Borderline cardiomegaly, likely exaggerated by hypoinflation. Ectatic aorta.
[2016-09-24 20:40] VITALS: RESP 16
[2016-09-24 20:42] VITALS: BMI 27.4
[2016-09-25 02:25] LABS: BASO # 0.03 K/mm3 (0.0-2.0); BASO % 0.3 % (0.0-3.0); EOS % 0.1 % (1.5-5.0); GRAN # 5.29 (1.4-6.5); HEMOGLOBIN 8.2 gm/dL (12.0-16.0); LYMPH # 3.2 (1.2-3.4); LYMPH % 32.5 % (22.0-35.0); MEAN CELL VOLUME 104.2 fL (80.0-105.0); MEAN CORPUSCULAR HGB CONC 36.4 g/dl (31.0-37.0); MEAN PLATELET VOLUME 11.2 fl (7.0-11.0); MONO # 1.3 (0.1-0.6); MONO % 13.1 % (1.0-6.0); PLATELET COUNT 116 10^3/uL (120.0-450.0); RBC 2.16 10^6/uL (3.5-6.1); RED CELL DISTRIBUTION WIDTH 27.4 % (11.5-14.5); WHITE BLOOD COUNT 9.8 10^3/ul (4.5-11.0)
--- NOTE | 2016-09-25 02:53 | ED PDOC ---
Physical Exam Vital Signs Reviewed: Yes Vital Signs Temp Pulse Resp BP Pulse Ox 09/25/16 05:38 102 H 16 104/76 100 09/25/16 04:36 104 H 16 111/63 97 09/25/16 01:35 100 H 16 99 09/24/16 20:40 16 147/74 09/24/16 14:29 82 18 112/78 97 09/24/16 12:40 98 F 90 16 108/72 98 Temperature: Afebrile Blood Pressure: Normal Pulse: Regular Respiratory Rate: Normal Appearance: Positive for: Well-Appearing, Non-Toxic, Comfortable Pain Distress: None Mental Status: Positive for: Alert and Oriented X 3 Medical Decision Making ED Course and Treatment: 09/24/16 23:00 Patient was signed out to me by , pending labs, and [facility] screening. spoke with [facility] screener who stated that they want a repeat CBC and LFTs. 09/25/16 05:40 Repeat CBC and LFT results sent to [facility]. Pending evaluation. - Lab Interpretations Lab Results: 09/25/16 02:19 09/24/16 14:00 Lab Results 09/25/16 04:55: Total Bilirubin 5.2 H, Direct Bilirubin 2.3 H, AST 190 H, ALT 103 H, Alkaline Phosphatase 117, Total Protein 7.8, Albumin 3.5, Globulin 4.3, Albumin/Globulin Ratio 0.8 L 09/25/16 02:19: WBC 9.8, RBC 2.16 L, Hgb 8.2 L, Hct 22.5 L, MCV 104.2, MCH 38.0 H, MCHC 36.4, RDW 27.4 H, Plt Count 116 L, MPV 11.2 H, Gran % 54.0, Lymph % ( Auto) 32.5, [place] % (Auto) 13.1 H, Eos % (Auto) 0.1 L, Baso % (Auto) 0.3, Gran # 5.29, Lymph # 3.2, [place] # 1.3 H, Eos # 0.0, Baso # 0.03 09/24/16 16:40: Urine Opiates Screen Negative, Urine Methadone Screen Negative, Ur Barbiturates Screen Negative, Ur Phencyclidine Scrn Negative, Ur Amphetamines Screen Negative, U Benzodiazepines Scrn Negative, U Oth Cocaine Metabols Negative, U Cannabinoids Screen Negative 09/24/16 16:40: Urine Color Yellow, Urine Appearance Clear, Urine pH 7.5, Ur Specific [place] 1.010, Urine Protein Trace H, Urine Glucose (UA) Negative, Urine Ketones Negative, Urine Blood Trace-intact H, Urine Nitrate Negative, Urine Bilirubin Moderate H, Urine Urobilinogen >=8.0, Ur Leukocyte Esterase Negative, Urine RBC 0 - 2, Urine WBC 0 - 2, Ur Epithelial Cells 0 - 2, Urine HCG , Qual Negative 09/24/16 14:00: Troponin I 0.02 09/24/16 14:00: Beta HCG, Quant < 2.39 09/24/16 14:00: PT 13.3 H, INR 1.23 H, APTT 27.5 09/24/16 14:00: Alcohol, Quantitative < 10 09/24/16 14:00: Sodium 143, Potassium 4.5, Chloride 105, Carbon Dioxide 26, Anion Gap 17, BUN 11, Creatinine 0.4 L, Est GFR ( Amer) > 60, Est GFR ( Non-Af Amer) > 60, Random Glucose 103, Calcium 9.0, Total Bilirubin 5.5 H, AST 208 H, ALT 113 H, Alkaline Phosphatase 132, Total Protein 8.6 H, Albumin 4.0, Globulin 4.6, Albumin/Globulin Ratio 0.9 L, Lipase 56 09/24/16 14:00: WBC 8.2, RBC 2.04 L, Hgb 7.7 L, Hct 21.4 L, MCV 104.9, MCH 37.7 H, MCHC 36.0, RDW 26.8 H, Plt Count 84 L, MPV 10.3, Corrected WBC (Man) 7.7, Neutrophils % (Manual) 80 H, Band Neutrophils % 1, Lymphocytes % (Manual) 12 L, Monocytes % (Manual) 7 H, Nucleated RBC % 6, Platelet Evaluation Low, Hypochromasia 2+, Poikilocytosis (manual 1+, Anisocytosis (manual) 1+, Microcytosis (manual) Slight, Macrocytosis (manual) Slight, Sickle Cells 1+, Target Cells Slight, Tear Drop Cells Slight, Ovalocytes Slight - RAD Interpretation Radiology Orders: 09/24/16 13:03 CHEST PORTABLE [RAD] Stat - Transfer of Care Patient signed out to Dr:: [facility] [place] Disposition/Present on Arrival - Present on Arrival Any Indicators Present on Arrival: No History of DVT/PE: No History of Uncontrolled Diabetes: No Urinary Catheter: No History of Decub. Ulcer: No History Surgical Site Infection Following: None - Disposition Have Diagnosis and Disposition been Completed?: Yes Diagnosis: Suicidal ideation Disposition Time: 07:00 Patient Problems: Current Active Problems Problem Status Onset Suicidal ideation Acute Condition: FAIR Forms: [employer] (Urdu)
[2016-09-25 05:13] LABS: ALB/GLOB RATIO 0.8 (1.1-1.8); ALBUMIN 3.5 g/dL (3.0-4.8); BILIRUBIN,DIRECT 2.3 mg/dL (0.0-0.4)
--- NOTE | 2016-09-25 07:24 | ED PDOC ---
Physical Exam Vital Signs Reviewed: Yes Vital Signs Temp Pulse Resp BP Pulse Ox 09/25/16 07:52 99 F 104 H 16 120/80 98 09/25/16 05:38 102 H 16 104/76 100 09/25/16 04:36 104 H 16 111/63 97 09/25/16 01:35 100 H 16 99 09/24/16 20:40 16 147/74 09/24/16 14:29 82 18 112/78 97 09/24/16 12:40 98 F 90 16 108/72 98 Temperature: Afebrile Blood Pressure: Normal Pulse: Regular Respiratory Rate: Normal Appearance: Positive for: Well-Appearing, Non-Toxic, Comfortable Pain Distress: None Mental Status: Positive for: Alert and Oriented X 3 Medical Decision Making ED Course and Treatment: 09/25/16 07:00 Case endorsed to me by Dr. Degroot, pending [facility] and disposition. 09/25/16 13:19 Patient accepted by [facility] and will be transferred. No complaints at this time. Patient is comfortable. - Lab Interpretations Lab Results: 09/25/16 02:19 09/24/16 14:00 Lab Results 09/25/16 04:55: Total Bilirubin 5.2 H, Direct Bilirubin 2.3 H, AST 190 H, ALT 103 H, Alkaline Phosphatase 117, Total Protein 7.8, Albumin 3.5, Globulin 4.3, Albumin/Globulin Ratio 0.8 L 09/25/16 02:19: WBC 9.8, RBC 2.16 L, Hgb 8.2 L, Hct 22.5 L, MCV 104.2, MCH 38.0 H, MCHC 36.4, RDW 27.4 H, Plt Count 116 L, MPV 11.2 H, Gran % 54.0, Lymph % ( Auto) 32.5, [place] % (Auto) 13.1 H, Eos % (Auto) 0.1 L, Baso % (Auto) 0.3, Gran # 5.29, Lymph # 3.2, [place] # 1.3 H, Eos # 0.0, Baso # 0.03 09/24/16 16:40: Urine Opiates Screen Negative, Urine Methadone Screen Negative, Ur Barbiturates Screen Negative, Ur Phencyclidine Scrn Negative, Ur Amphetamines Screen Negative, U Benzodiazepines Scrn Negative, U Oth Cocaine Metabols Negative, U Cannabinoids Screen Negative 09/24/16 16:40: Urine Color Yellow, Urine Appearance Clear, Urine pH 7.5, Ur Specific [place] 1.010, Urine Protein Trace H, Urine Glucose (UA) Negative, Urine Ketones Negative, Urine Blood Trace-intact H, Urine Nitrate Negative, Urine Bilirubin Moderate H, Urine Urobilinogen >=8.0, Ur Leukocyte Esterase Negative, Urine RBC 0 - 2, Urine WBC 0 - 2, Ur Epithelial Cells 0 - 2, Urine HCG , Qual Negative 09/24/16 14:00: Troponin I 0.02 09/24/16 14:00: Beta HCG, Quant < 2.39 09/24/16 14:00: PT 13.3 H, INR 1.23 H, APTT 27.5 09/24/16 14:00: Alcohol, Quantitative < 10 09/24/16 14:00: Sodium 143, Potassium 4.5, Chloride 105, Carbon Dioxide 26, Anion Gap 17, BUN 11, Creatinine 0.4 L, Est GFR ( Amer) > 60, Est GFR ( Non-Af Amer) > 60, Random Glucose 103, Calcium 9.0, Total Bilirubin 5.5 H, AST 208 H, ALT 113 H, Alkaline Phosphatase 132, Total Protein 8.6 H, Albumin 4.0, Globulin 4.6, Albumin/Globulin Ratio 0.9 L, Lipase 56 09/24/16 14:00: WBC 8.2, RBC 2.04 L, Hgb 7.7 L, Hct 21.4 L, MCV 104.9, MCH 37.7 H, MCHC 36.0, RDW 26.8 H, Plt Count 84 L, MPV 10.3, Corrected WBC (Man) 7.7, Neutrophils % (Manual) 80 H, Band Neutrophils % 1, Lymphocytes % (Manual) 12 L, Monocytes % (Manual) 7 H, Nucleated RBC % 6, Platelet Evaluation Low, Hypochromasia 2+, Poikilocytosis (manual 1+, Anisocytosis (manual) 1+, Microcytosis (manual) Slight, Macrocytosis (manual) Slight, Sickle Cells 1+, Target Cells Slight, Tear Drop Cells Slight, Ovalocytes Slight - RAD Interpretation Radiology Orders: 09/24/16 13:03 CHEST PORTABLE [RAD] Stat Disposition/Present on Arrival - Present on Arrival Any Indicators Present on Arrival: No History of DVT/PE: No History of Uncontrolled Diabetes: No Urinary Catheter: No History of Decub. Ulcer: No History Surgical Site Infection Following: None - Disposition Have Diagnosis and Disposition been Completed?: Yes Diagnosis: Suicidal ideation Disposition: Transfer [facility] Disposition Time: 07:00 Patient Plan: Transfer To Patient Problems: Current Active Problems Problem Status Onset Suicidal ideation Acute Condition: FAIR Forms: [employer] (American)
[2016-09-25 07:52] VITALS: BP 120/80; PULSE 104; TEMP 99; O2SAT 98
--- NOTE | 2016-09-25 08:02 | CARD ---
APPROVED REPORT EKG Measurement Heart [id number] <Conclusion> Sinus tachycardia LVH by voltage STTW changes c/w ischemia
--- NOTE | 2016-09-25 16:31 | CON ---
HISTORY OF PRESENT ILLNESS: The patient is a 35-year-old female with multiple medical issues of cerebral palsy. The patient has sickle cell anemia. The patient has history of pancreatitis, history of bipolar disorder, history of hypertension, asthma, and CHF. The patient was brought in for evaluation of possible suicidal ideation. The patient was refusing to take her medication. The patient lives in care home. The patient also expressed suicidal plan to drink bleach. Also, while the patient was in the emergency room, the patient tried to commit suicide by putting cord around her neck. The patient is currently on one-to-one. This card writer hand offered the patient admission yesterday to the psychiatric inpatient unit. The patient states that she does not want to take medications and will be spitting them out and does not want to stay in the hospital. The patient was seen today at the emergency room. The patient presented with some psychomotor retardation, intense eye contact, monotonic speech, poverty of speech and thoughts. The patient has cognitive deficits as well. The patient has like demeanor. The patient said that she does not want to live anymore because of the arguments in the care home. The patient also reported that she does not want to take any medications. The patient also reported that she wants to and she does not want to live anymore. The patient reports that still having suicidal ideations as well as homicidal ideation towards one of the care home member. At present moment, the patient wants to go home and does not have rational decision making capacity. The patient denied history of being admitted to the psychiatric inpatient unit, but reported having history of suicidal attempts, most recent was prior to come to the hospital. The chart reviewed. VITAL SIGNS: The patient is tachycardic. Temperature 99, blood pressure 120/80, respirations 16, oxygen saturation is 98%. MEDICATIONS: Reviewed. There is no as needed medications. This card writer hand is familiar with this patient from the consultation based on services on the medical side. The patient was on Depakote 250 twice a day and also trazodone 25 mg at the nighttime in the past. LABORATORY DATA: Reviewed. Hemoglobin and hematocrit 8.2 and 22.5 respectively. Chemistry reviewed. The patient has AST is 190 and ALT 103. Urinalysis showed bilirubin, moderate blood trace, protein trace. Toxicology is negative for any substances. MENTAL STATUS EXAMINATION GENERAL: The patient appears to be with psychomotor retardation. Poor personal hygiene. Intense eye contact. Monotonic speech, low volume, under productive. MOOD/AFFECT: Mood described as "I do not want to live anymore." Affect was flat. THOUGHT PROCESS: [place]. THOUGHT CONTENT: The patient states that she use to hear voices, last time was two days ago. Denied command type hallucinations. The patient states voices are saying "take medications and don't be disrespectful." Denied paranoid ideation. The patient appears to be guarded, internally preoccupied. The patient reported that she still have suicidal ideation with the plan to drink bleach or hang herself with the cord. INSIGHT: Poor. IMPULSES: Not predictable. IMPRESSION: The patient has history of bipolar disorder, rule out schizoaffective disorder. The patient has multiple medical issues; sickle cell crisis, cerebrum palsy, developmental disability, some neurocognitive deficit. The patient has history of pancreatitis, congestive heart failure and sickle cell crisis. PLAN: This card writer hand offered the patient's admission to the psychiatric inpatient unit. The patient states that she does not want to take medications and she will spit them out and on present moment, the patient's pose threat to self. [facility] was initiated. Additional lab work was requested by [facility] The patient is waiting for evaluation in possible [facility] involuntary commitment. The patient seems to be a comfortable. Th1is card writer hand will implement as needed medications. Should you have any questions, give me a call back. Case was discussed with Kristy in details as well as nursing staff. Thank you very much allowing me to participate in care of your patient. Fadia Odonnell MD
--- NOTE | 2016-09-26 11:21 | CP.PCM.PCO ---
Physician Communication Note - Physician Communication Note Physician Communication Note: [place] [facility] uneventfully
== END 2016-09-25 13:12 | disposition short-term general hospital (02) ==
LOC: ED 12:28
DX: R45.851 Suicidal ideations (principal); F31.9 Bipolar disorder, unspecified; I20.9 Angina pectoris, unspecified; I10 Essential (primary) hypertension; G80.9 Cerebral palsy, unspecified; D57.1 Sickle-cell disease without crisis; Z87.891 Personal history of nicotine dependence

== ENCOUNTER 2016-10-23 12:45 | Inpatient (IN) | payer OTHER ==
[2016-10-23 12:45] VITALS: BMI 27.4
--- NOTE | 2016-10-23 13:09 | ED PDOC ---
Arrival/HPI - General Chief Complaint: Pain, Chronic Time Seen by Provider: 10/23/16 12:56 Historian: Patient - History of Present Illness Narrative History of Present Illness (Text): 10/23/16 13:06 A 36 year old female, whose past medical history includes hypertension, asthma, CHF, pancreatitis, sickle cell disease, cerebral palsy, bipolar disorder, and depression, presents to the emergency department complaining of worsening right sided body pain since yesterday. Patient reports her symptoms feel similar to pervious sickle cell episode. Patient took Tramadol this morning, with no relief. She does have an outer lower abd pain that is relieved with urination. Patient notes a cough also but denies any fever, chills, nausea, vomiting, chest pain, shortness of breath, headache, dizziness, vision changes or any other complaints. Plastics Scientist: Dr. Palacios Time/Duration: Other (Yesterday) Symptom Course: Worsening Quality: Other Context: Home Past Medical History - Provider Review Nursing Documentation Reviewed: Yes - Infectious Disease Hx of Infectious Diseases: None - Tetanus Immunization Tetanus Immunization: Up to Date - Cardiac Hx Cardiac Disorders: Yes Hx Angina: Yes Hx Hypertension: Yes - Pulmonary Hx Asthma: Yes - Neurological Hx Neurological Disorder: No Other/Comment: CP - HEENT Hx HEENT Disorder: No - Renal Hx Renal Disorder: No - Endocrine/Metabolic Hx Endocrine Disorders: Yes - Hematological/Oncological Hx Blood Disorders: Yes Hx Anemia: Yes - Integumentary Hx Dermatological Disorder: Yes Hx Eczema: Yes - Musculoskeletal/Rheumatological Hx Falls: No - Gastrointestinal Hx Gastrointestinal Disorders: Yes Hx Gastroesophageal Reflux: Yes Hx Pancreatitis: Yes - Genitourinary/Gynecological Hx Genitourinary Disorders: Yes Hx Urinary Tract Infection: Yes - Psychiatric Hx Psychophysiologic Disorder: Yes Hx Anxiety: Yes Hx Bipolar Disorder: Yes Hx Substance Use: No - Surgical History Hx Cholecystectomy: Yes Hx Splenectomy: Yes - Anesthesia Hx Anesthesia: Yes Hx Anesthesia Reactions: No Hx Malignant Hyperthermia: No - Suicidal Assessment Feels Threatened In Home Enviroment: No Family/Social History - Physician Review Nursing Documentation Reviewed: Yes Family/Social History: No Known Family HX Smoking Status: Former Smoker Hx Alcohol Use: Yes Hx Substance Use: No Hx Substance Use Treatment: No Allergies/Home Meds Allergies/Adverse Reactions: Allergies acetaminophen Allergy (Verified 09/24/16 12:42) RASH aspirin Allergy (Verified 09/24/16 12:42) RASH coconut oil Allergy (Verified 09/24/16 12:42) RASH morphine Allergy (Verified 09/24/16 12:42) SWELLING mushroom Allergy (Verified 09/24/16 12:42) URTICARIA oxycodone Allergy (Verified 09/24/16 12:42) RASH Home Medications: Home Meds Medication Instructions Recorded Confirmed Albuterol HFA [Ventolin HFA 90 2 puff IH TID PRN 10/23/16 10/23/16 mcg/actuation (8 g)] Divalproex [Depakote DR (*BID*)] 250 mg PO TID 10/23/16 10/23/16 Ergocalciferol [Drisdol 50,000 1 cap PO Q7D 10/23/16 10/23/16 Intl Units Cap] Folic Acid [Folic Acid] 1 tab PO DAILY 10/23/16 10/23/16 Hydroxyurea [Hydrea] 1 tab PO DAILY 10/23/16 10/23/16 Multivitamin [Honey Bears] 1 tab PO DAILY 10/23/16 10/23/16 Polyethylene Glycol 3350 [Miralax] 1 packet PO DAILY 10/23/16 10/23/16 QUEtiapine [SEROquel] 1 tab PO DAILY 10/23/16 10/23/16 QUEtiapine [SEROquel] 200 mg PO HS 10/23/16 10/23/16 traMADol [Ultram] 1 tab PO DAILY PRN 10/23/16 10/23/16 Review of Systems - Physician Review All systems were reviewed & negative as marked: Yes - Review of Systems Constitutional: absent: Fevers, Night Sweats Eyes: absent: Vision Changes Respiratory: Cough. absent: SOB Cardiovascular: absent: Chest Pain Gastrointestinal: Abdominal Pain (relieved with urination). absent: Nausea, Vomiting Musculoskeletal: Other (Right sided body pain) Neurological: absent: Headache, Dizziness Physical Exam Vital Signs Reviewed: Yes Vital Signs Temp Pulse Resp BP Pulse Ox 10/23/16 16:00 97 H 18 103/78 100 10/23/16 14:16 104 H 18 101/73 100 10/23/16 14:09 89 18 104/70 100 10/23/16 12:54 98.0 F 98 H 18 107/75 100 Temperature: Afebrile Blood Pressure: Normal Pulse: Tachycardic Respiratory Rate: Normal Appearance: Positive for: Well-Appearing, Non-Toxic, Uncomfortable Pain Distress: None Mental Status: Positive for: Alert and Oriented X 3 - Systems Exam Head: Present: Atraumatic, Normocephalic Pupils: Present: PERRL Conjunctiva: Present: Normal Mouth: Present: Dry, Other (Small scab on left lower lip) Pharnyx: No: ERYTHEMA, EXUDATE, TONSILS ENLARGED Neck: Present: Normal Range of Motion Respiratory/Chest: Present: Clear to Auscultation, Good Air Exchange. No: Respiratory Distress, Accessory Muscle Use Cardiovascular: Present: Regular Rate and Rhythm, Normal S1, S2. No: Murmurs Abdomen: Present: Normal Bowel Sounds. No: Tenderness, Distention, Peritoneal Signs Back: Present: Normal Inspection Upper Extremity: Present: Normal Inspection, Normal ROM, NORMAL PULSES, Neurovascularly Intact. No: Cyanosis, Edema, Tenderness, Swelling Lower Extremity: Present: Normal Inspection, NORMAL PULSES, Normal ROM, Neurovascularly Intact, Other (Pt prefers to keep knees flexed). No: Edema, CALF TENDERNESS, Tenderness, Swelling Neurological: Present: GCS=15, CN II-XII Intact, Speech Normal Skin: Present: Warm, Dry, Normal Color. No: Rashes Psychiatric: Present: Alert, Oriented x 3, Normal Insight, Normal Concentration Medical Decision Making ED Course and Treatment: 10/23/16 13:06 Impression: A 36 year old female with right sided body pain, similar to previous sickle cell episodes. Plan: -- EKG -- Labs -- Urinalysis -- Dilaudid, Toradol and IV fluids -- Reassess and observation and disposition - Lab Interpretations I have reviewed the lab results: Yes - Medication Orders Current Medication Orders: Ceftriaxone Sodium (Rocephin 1 Gram Ivpb) 1 gm in 100 mls @ 200 mls/hr IV ONCE STA PRN Reason: Protocol Stop: 10/23/16 16:34 Last Admin: 10/23/16 16:11 Dose: 200 mls/hr Discontinued Medications Diphenhydramine HCl (Benadryl) 12.5 mg PO STAT STA Stop: 10/23/16 14:49 Last Admin: 10/23/16 14:55 Dose: 12.5 mg Hydromorphone HCl (Dilaudid) 1 mg IVP STAT STA Stop: 10/23/16 13:15 Last Admin: 10/23/16 13:41 Dose: 1 mg Sodium Chloride (Sodium Chloride 0.9%) 1,000 mls @ 1,000 mls/hr IV .Q1H STA Stop: 10/23/16 14:11 Last Admin: 10/23/16 13:41 Dose: 1,000 mls/hr Ketorolac Tromethamine (Toradol) 30 mg IVP STAT STA Stop: 10/23/16 13:15 Last Admin: 10/23/16 13:41 Dose: 30 mg ED OBSERVATION Date of observation admission: 10/23/16 Time of observation admission: 12:56 - Observation admission statement Patient is being placed in observation because:: Sickle cell disease - Goals of Observation Goals of observation are:: Monitor and treat patient symptoms - Progress Note Progress Note: 10/23/16 12:56 Patient with right sided body pain, similar to previous sickle cell episodes. EKG shows sinus tachycardia at 104 BPM with normal axis, normal intervals, nonspecific ST/T changes with no changes from prior on 09/24/16. Interpreted by me. 10/23/16 14:30 Patient reports mild improvement in pain but still there. 10/23/16 15:50 Pain is still present and urine also showing UTI, consistent with the pressure that is relieved with urination. Blood work is consistent with HgbSS baseline. Given persistence of symptoms, along with uti - will place on observation further for treatment of sickle cell crisis and UTI. 10/23/16 16:00 Case was discussed with Dr. Tapia. - Scribe Statement The provider has reviewed the documentation as recorded by the Marco Antonio Armenta Provider Scribe Attestation: All medical record entries made by the Scribe were at my direction and personally dictated by me. I have reviewed the chart and agree that the record accurately reflects my personal performance of the history, physical exam, medical decision making, and the department course for this patient. I have also personally directed, reviewed, and agree with the discharge instructions and disposition. Disposition/Present on Arrival - Present on Arrival Any Indicators Present on Arrival: No History of DVT/PE: No History of Uncontrolled Diabetes: No Urinary Catheter: No History of Decub. Ulcer: No History Surgical Site Infection Following: None - Disposition Have Diagnosis and Disposition been Completed?: Yes Diagnosis: Sickle cell pain crisis, UTI (lower urinary tract infection) Disposition: HOSPITALIZED Disposition Time: 15:50 Patient Plan: Observation Condition: FAIR
[2016-10-23] MEDS ORDERED: Sodium Chloride 0.9% 1,000 ML IV STA (13:12)
[2016-10-23] MEDS ORDERED: HYDROmorphone 1 mg/ml ISec IVP STA (13:14)
[2016-10-23 13:44] LABS: MEAN CELL VOLUME 110.8 fl (80.0-105.0); MEAN CORPUSCULAR HEMOGLOBIN 40.3 pg (25.0-35.0); MEAN CORPUSCULAR HGB CONC 36.4 g/dl (31.0-37.0); MEAN PLATELET VOLUME 10.9 fl (7.0-11.0); PLATELET COUNT 131 10^3/uL (120.0-450.0); RED CELL DISTRIBUTION WIDTH 20.5 % (11.5-14.5); WHITE BLOOD COUNT 12.4 10^3/ul (4.5-11.0)
[2016-10-23 13:54] LABS: HEMATOCRIT 19.5 % (36.0-48.0); RETIC% 19.69 % (0.5-1.5)
[2016-10-23 14:02] LABS: ALB/GLOB RATIO 0.8 (1.1-1.8); ALKALINE PHOSPHATASE 123 U/L (38-133); ALT/SGPT 66 U/L (7-56); AST/SGOT 138 U/L (15-39); BILIRUBIN,TOTAL 4.2 mg/dL (0.2-1.3); BLOOD UREA NITROGEN 10 mg/dL (7-21); CALCIUM 8.7 mg/dL (8.4-10.5); CARBON DIOXIDE 25 mmol/L (21-33); CHLORIDE 106 mmol/L (98-107); GFR AFRICAN-AMERICAN > 60; GLUCOSE,RANDOM 96 mg/dL (70-110); LIPASE 28 U/L (23-300); POTASSIUM 4.3 mmol/L (3.6-5.0); SODIUM 140 mmol/L (132-148); TOTAL PROTEIN 7.7 g/dL (5.8-8.3)
[2016-10-23 14:05] LABS: ATYPICAL LYMPHOCYTE 2 % (0.0-0.0); CORRECTED WBC 10.4 K/mm3 (4.5-11.0); MYELOCYTE 1 %; NEUTROPHIL 64 % (50.0-70.0); NUCLEATED RED BLOOD CELL 19 %; PLATELET ESTIMATE SL. DEC (NORMAL)
[2016-10-23 14:06] LABS: ANISOCYTOSIS 2+; HYPOCHROMIA 3+; OVALOCYTES 1+; POIKILOCYTOSIS 1+; POLYCHROMASIA SLIGHT; SPHEROCYTE SLIGHT; TARGET CELLS SLIGHT; TEAR DROP CELLS SLIGHT
[2016-10-23 14:07] LABS: TOXIC GRANULATION SLIGHT
[2016-10-23 14:19] LABS: INR 1.19 (0.93-1.08)
[2016-10-23 14:24] LABS: PARTIAL THROMBOPLASTIN TIME > 180.0 Seconds (23.7-30.8)
[2016-10-23] MEDS ORDERED: DiphenhydrAMINE 12.5 mg/5 ml LIQ UD (5 ml) PO STA (14:48)
[2016-10-23 15:25] LABS: URINE BILIRUBIN SMALL (NEGATIVE); URINE BLOOD LARGE (NEGATIVE); URINE GLUCOSE (UA) NEGATIVE (NEGATIVE); URINE KETONE NEGATIVE (NEGATIVE); URINE LEUKOCYTE ESTERASE TRACE Leu/uL (NEGATIVE); URINE PROTEIN TRACE mg/dL (<30 mg/dL)
[2016-10-23 15:34] LABS: URINE APPEARANCE CLEAR (CLEAR); URINE COLOR AMBER (YELLOW)
[2016-10-23 15:53] LABS: URINE AMORPHOUS SEDIMENT TRACE
[2016-10-23] MEDS ORDERED: cefTRIAXone 1 gm 1 GM/100 ML BAG IV STA (16:05)
[2016-10-23] MEDS ORDERED: Albuterol HFA 90 mcg/actuation (8 g) IH PRN (17:26)
[2016-10-23] MEDS ORDERED: Albuterol 0.083% Inhal Sol (2.5 mg/3 mL) UD IH PRN (17:35)
--- NOTE | 2016-10-23 18:10 | CP.PCM.HP ---
<Esteban Aly - Last Filed: 10/23/16 22:34> History of Present Illness - History of Present Illness History of Present Illness: This is a 36 year old female with a significant PMHx of sickle cell anemia who presents with generalized pain most prominent on the right shoulder x 1 day. Patient did not want to come to the hospital yesterday because it was her birthday. Patient is well known to [facility] [place], and has been treated at this hospital in the past for similar symptoms. Patient states the pain is aggravated when she moves around. She also states that when she squeezes her right shoulder the pain radiates to her leg and back. Past chart states patient has history of CHF and HTN which she denies. ROS: Complains of: Headache, and minor cough Denies: SOB, Chest Pain, dizziness, Abdominal pain, Nausea, Vomiting, Diarrhea, Constipation, or any changes in vision. PMHx: BiPolar, questionable CHF, Asthma, Questionable HTN, cerebral palsy PSHx: Bilateral Hip Surgery, cholecystectomy Allergies: ASA, percocet, morphine, coconut oil, mushrooms Social: Denies Tobacco, Alcohol, or any illicit drug use Family Hx: Sickle Cell (Nephew and Sister), Breast Cancer (Maternal Aunt) PMD: Dr. Gill Heme/Onc: Dr. Palacios Present on Admission - Present on Admission Any Indicators Present on Admission: No Past Patient History - Infectious Disease Hx of Infectious Diseases: None - Tetanus Immunizations Tetanus Immunization: Up to Date - Past Medical History & Family History Past Medical History?: Yes - Past Social History Smoking Status: Former Smoker - CARDIAC Hx Cardiac Disorders: Yes Hx Angina: Yes Hx Hypertension: Yes - PULMONARY Hx Asthma: Yes - NEUROLOGICAL Hx Neurological Disorder: No Other/Comment: CP - HEENT Hx HEENT Problems: No - RENAL Hx Chronic Kidney Disease: No - ENDOCRINE/METABOLIC Hx Endocrine Disorders: Yes - HEMATOLOGICAL/ONCOLOGICAL Hx Blood Disorders: Yes Hx Anemia: Yes - INTEGUMENTARY Hx Dermatological Problems: Yes Hx Eczema: Yes - MUSCULOSKELETAL/RHEUMATOLOGICAL Hx Falls: No - GASTROINTESTINAL Hx Gastrointestinal Disorders: Yes Hx Gastroesophageal Reflux: Yes Hx Pancreatitis: Yes - GENITOURINARY/GYNECOLOGICAL Hx Genitourinary Disorders: Yes Hx Urinary Tract Infection: Yes - PSYCHIATRIC Hx Psychophysiologic Disorder: Yes Hx Anxiety: Yes Hx Bipolar Disorder: Yes Hx Substance Use: No - SURGICAL HISTORY Hx Cholecystectomy: Yes Hx Splenectomy: Yes - ANESTHESIA Hx Anesthesia: Yes Hx Anesthesia Reactions: No Hx Malignant Hyperthermia: No Meds Allergies/Adverse Reactions: Allergies Allergy/AdvReac Type Severity Reaction Status Date / Time acetaminophen Allergy RASH Verified 09/24/16 12:42 aspirin Allergy RASH Verified 09/24/16 12:42 coconut oil Allergy RASH Verified 09/24/16 12:42 morphine Allergy SWELLING Verified 09/24/16 12:42 mushroom Allergy URTICARIA Verified 09/24/16 12:42 oxycodone Allergy RASH Verified 09/24/16 12:42 Physical Exam - Constitutional Appears: Non-toxic - Head Exam Head Exam: ATRAUMATIC, NORMOCEPHALIC - Eye Exam Eye Exam: EOMI, Normal appearance, PERRL. absent: Nystagmus, Scleral icterus - ENT Exam ENT Exam: Mucous Membranes Dry - Cardiovascular Exam Cardiovascular Exam: +S1, +S2, Systolic Murmur. absent: +S4 - GI/Abdominal Exam GI & Abdominal Exam: Normal Bowel Sounds, Soft, Tenderness. absent: Organomegaly - Neurological Exam Neurological exam: Alert, CN II-XII Intact, Oriented x3 - Psychiatric Exam Psychiatric exam: Normal Affect, Normal Mood Results - Vital Signs Recent Vital Signs: Last Vital Signs Temp 98.0 F 10/23/16 12:54 Pulse 97 H 10/23/16 16:00 Resp 18 10/23/16 16:00 BP 103/78 10/23/16 16:00 Pulse Ox 100 10/23/16 16:00 - Labs Result Diagrams: 10/23/16 13:30 10/23/16 13:30 Labs: Laboratory Results - last 24 hr 10/23/16 10/23/16 10/23/16 13:30 13:30 13:30 WBC 12.4 H D RBC 1.76 L Hgb 7.1 L Hct 19.5 L* MCV 110.8 H MCH 40.3 H MCHC 36.4 RDW 20.5 H Plt Count 131 MPV 10.9 Corrected WBC (Man) 10.4 Neutrophils % (Manual) 64 Lymphocytes % (Manual) 24 Atypical Lymphs % 2 H Monocytes % (Manual) 9 H Myelocytes % 1 Nucleated RBC % 19 Toxic Granulation Slight Platelet Evaluation Sl. dec Polychromasia Slight Hypochromasia 3+ Poikilocytosis (manual 1+ Anisocytosis (manual) 2+ Macrocytosis (manual) 2+ Spherocytes Slight Sickle Cells 2+ Target Cells Slight Tear Drop Cells Slight Ovalocytes 1+ Retic Count 19.69 H* PT 12.9 H INR 1.19 H APTT > 180.0 H* Sodium 140 Potassium 4.3 Chloride 106 Carbon Dioxide 25 Anion Gap 13 BUN 10 Creatinine 0.4 L Est GFR ( Amer) > 60 Est GFR (Non-Af Amer) > 60 Random Glucose 96 Calcium 8.7 Total Bilirubin 4.2 H AST 138 H ALT 66 H Alkaline Phosphatase 123 Total Protein 7.7 Albumin 3.4 Globulin 4.2 Albumin/Globulin Ratio 0.8 L Lipase 28 Urine Color Urine Appearance Urine pH Ur Specific [place] Urine Protein Urine Glucose (UA) Urine Ketones Urine Blood Urine Nitrate Urine Bilirubin Urine Urobilinogen Ur Leukocyte Esterase Urine RBC Urine WBC Ur Epithelial Cells Amorphous Sediment Urine Other Blood Type Antibody Screen BBK History Checked 10/23/16 10/23/16 13:30 15:10 WBC RBC Hgb Hct MCV MCH MCHC RDW Plt Count MPV Corrected WBC (Man) Neutrophils % (Manual) Lymphocytes % (Manual) Atypical Lymphs % Monocytes % (Manual) Myelocytes % Nucleated RBC % Toxic Granulation Platelet Evaluation Polychromasia Hypochromasia Poikilocytosis (manual Anisocytosis (manual) Macrocytosis (manual) Spherocytes Sickle Cells Target Cells Tear Drop Cells Ovalocytes Retic Count PT INR APTT Sodium Potassium Chloride Carbon Dioxide Anion Gap BUN Creatinine Est GFR ( Amer) Est GFR (Non-Af Amer) Random Glucose Calcium Total Bilirubin AST ALT Alkaline Phosphatase Total Protein Albumin Globulin Albumin/Globulin Ratio Lipase Urine Color Abigail Urine Appearance Clear Urine pH 6.0 Ur Specific [place] 1.020 Urine Protein Trace H Urine Glucose (UA) Negative Urine Ketones Negative Urine Blood Large H Urine Nitrate Positive H Urine Bilirubin Small H Urine Urobilinogen 2.0 H Ur Leukocyte Esterase Trace H Urine RBC 5 - 10 Urine WBC 1 - 3 Ur Epithelial Cells 6 - 8 Amorphous Sediment Trace Urine Other Mucus Blood Type B POSITIVE Antibody Screen Negative BBK History Checked Patient has bt Assessment & Plan - Assessment and Plan (Free Text) Assessment: This is a 35 yo female with past medical hx of cerebral palsy, bipolar disorder ,sickle cell disease, anxiety, asthma, CHF w/ EF of 35%, and elevated BP admitted for intractable generalized pain most prominent in right shoulder. Pain 2/2 to sickle cell disease. Plan: 1. Intractable Pain 2/2 sickle cell dx - Dilaudid 1 IVP Q4 for pain - Benadryl for pruritic 2/2 to dilaudid - normal Saline 100ml per hour - 2. Anemia - 2/2 Sickle cell disease -Monitor H&G -Transfuse 1 unit if Hgb less than 7 -Heme Onc Consult- Dr Palacios -monitor CBC and reticulocyte count daily -Cont. Home Hyroxyurea -Cont. Home Vitamins 3. UTI -Ceftriaxone IV 4. bipolar disorder -Cont. Home Depakote & Seroquel 5. Asthma - PRN albuterol -Asmanex 6. CHF w/ EF of 35% Patient denies this history. Past charts reveal Echocardiogram what showed EF of 35-40%. Patient was given Metoprolol and lisinopril for treatment. We will hold for now and order. CXR for tomorrow morning. Patient currently doesnt complain of being SOB and lungs are CTA. GI/DVT Proph Protonix/SCDs <Elzbieta ANGUIANO,Jena - Last Filed: 10/26/16 12:09> Results - Vital Signs Recent Vital Signs: Last Vital Signs Temp 98.9 F 10/26/16 07:30 Pulse 108 H 10/26/16 07:30 Resp 20 10/26/16 07:30 BP 118/84 10/26/16 07:30 Pulse Ox 99 10/26/16 07:30 - Labs Result Diagrams: 10/26/16 05:51 10/26/16 05:51 Labs: Laboratory Results - last 24 hr 10/25/16 10/26/16 10/26/16 06:20 05:51 05:51 WBC 16.4 H RBC 2.26 L Hgb 8.7 L Hct 24.4 L MCV 108.0 H MCH 38.5 H MCHC 35.7 RDW 23.4 H Plt Count 140 MPV 11.0 Retic Count 22.78 H* Sodium 140 Potassium 3.7 Chloride 109 H Carbon Dioxide 24 Anion Gap 11 BUN 7 Creatinine 0.4 L Est GFR ( Amer) > 60 Est GFR (Non-Af Amer) > 60 Random Glucose 97 Calcium 8.1 L Ferritin > 66994.0 Total Bilirubin 3.2 H AST 125 H ALT 62 H Alkaline Phosphatase 129 H Total Protein 6.9 Albumin 2.9 L Globulin 4.0 Albumin/Globulin Ratio 0.7 L Attending/Attestation - Attestation I have personally seen and examined this patient.: Yes I have fully participated in the care of the patient.: Yes I have reviewed all pertinent clinical information: Yes Notes (Text): 10/26/16 12:05 Patient was seen and examined with medical doctor nuclear medicine. Agreed with resident assessment and plan. Patient is euvolemic, we miranda start patient on IV hydration, pain medication and IV antibiotics for UTI. We will monitor CBC, Reticulocyte count and will follow up cultures. Management plan was discussed in detail with patient and family who was at bed side. Education was provided. 35 year old female with past medical history of sickle cell disease, hypertension, asthma, cerebral palsy, CHF with systolic dysfunction EF 35% -40 % and bipolar disorder and depression with sickle cell crisis and UTI,
[2016-10-23] MEDS: cefTRIAXone 1 gm 1 GM/100 ML BAG IVPB SCH (18:16)
[2016-10-23] MEDS: HYDROmorphone 1 mg/ml ISec IVP PRN (18:59)
[2016-10-23] MEDS: Sodium Chloride 0.45% 1,000 ML IV SCH (19:05)
[2016-10-23] MEDS: Divalproex 250 mg DR (BID formulation) PO SCH (19:05)
[2016-10-23] MEDS: DiphenhydrAMINE 50 mg/ml Inj IVP PRN (20:05)
[2016-10-23] MEDS ORDERED: Pneumococcal 23-Valent Vaccine IM ONE (21:50)
[2016-10-24] MEDS: HYDROmorphone 1 mg/ml ISec IVP PRN ×6 (00:03→21:15)
[2016-10-24] MEDS: Pantoprazole 40 mg Susp UD PO SCH (05:15)
[2016-10-24] MEDS: Sodium Chloride 0.45% 1,000 ML IV SCH (05:27)
[2016-10-24] MEDS: DiphenhydrAMINE 50 mg/ml Inj IVP PRN ×2 (09:10→21:16)
[2016-10-24] MEDS: POLYETHYLENE GLYCOL 3350 17 GM/Dose PACKET PO SCH (09:10)
[2016-10-24] MEDS: Divalproex 250 mg DR (BID formulation) PO SCH ×3 (09:11→17:15)
[2016-10-24] MEDS: Multivitamin Therapeutic Tab PO SCH (09:11)
[2016-10-24] MEDS: cefTRIAXone 1 gm 1 GM/100 ML BAG IVPB SCH (09:12)
--- NOTE | 2016-10-24 09:24 | RAD ---
HISTORY: Hx of CHF COMPARISON: 09/24/2016 FINDINGS: LUNGS: Patchy infiltrate in the right upper lobe. Minimal infiltrate at right lung base PLEURA: No significant pleural effusion identified, no pneumothorax apparent. CARDIOVASCULAR: Moderate cardiomegaly OSSEOUS STRUCTURES: No significant abnormalities. VISUALIZED UPPER ABDOMEN: Normal. OTHER FINDINGS: None. IMPRESSION: Patchy infiltrate in the right upper lobe. Minimal infiltrate at right lung base
[2016-10-24 09:26] LABS: MEAN CORPUSCULAR HEMOGLOBIN 40.1 pg (25.0-35.0); MEAN CORPUSCULAR HGB CONC 35.8 g/dl (31.0-37.0); MEAN PLATELET VOLUME 11.2 fl (7.0-11.0); PLATELET COUNT 109 10^3/uL (120.0-450.0); RED CELL DISTRIBUTION WIDTH 21.7 % (11.5-14.5); WHITE BLOOD COUNT 15.4 10^3/ul (4.5-11.0)
[2016-10-24 09:31] LABS: ALB/GLOB RATIO 0.8 (1.1-1.8); ALKALINE PHOSPHATASE 130 U/L (38-133); ALT/SGPT 67 U/L (7-56); AST/SGOT 150 U/L (15-39); BILIRUBIN,TOTAL 4.1 mg/dL (0.2-1.3); BLOOD UREA NITROGEN 13 mg/dL (7-21); CALCIUM 8.1 mg/dL (8.4-10.5); CARBON DIOXIDE 23 mmol/L (21-33); CHLORIDE 104 mmol/L (98-107); GFR AFRICAN-AMERICAN > 60; GLUCOSE,RANDOM 87 mg/dL (70-110); POTASSIUM 4.2 mmol/L (3.6-5.0); SODIUM 137 mmol/L (132-148); TOTAL PROTEIN 7.7 g/dL (5.8-8.3)
[2016-10-24 09:33] LABS: HEMATOCRIT 18.7 % (36.0-48.0)
--- NOTE | 2016-10-24 09:49 | CARD ---
APPROVED REPORT EKG Measurement Heart [id number] <Conclusion> Sinus tachycardia Nonspecific ST and T wave abnormality Abnormal ECG
[2016-10-24] MEDS ORDERED: MULTIVITAMIN PO SCH (10:00)
[2016-10-24 11:09] LABS: EOSINOPHIL 3 % (0.0-3.0); MYELOCYTE 2 %; NEUTROPHIL 58 % (50.0-70.0)
[2016-10-24 11:10] LABS: ANISOCYTOSIS 3+; HYPOCHROMIA 2+; LARGE PLATELETS PRESENT; PLATELET ESTIMATE LOW (NORMAL); POIKILOCYTOSIS 1+; POLYCHROMASIA 1+
[2016-10-24 11:11] LABS: BURR CELLS SLIGHT; CORRECTED WBC 10.5 K/mm3 (4.5-11.0); NUCLEATED RED BLOOD CELL 47 %; OVALOCYTES 1+; TARGET CELLS SLIGHT; TEAR DROP CELLS 1+; TOXIC GRANULATION SLIGHT
--- NOTE | 2016-10-24 14:37 | CP.PCM.PN ---
<Esteban Aly - Last Filed: 10/24/16 14:50> Subjective - Date & Time of Evaluation Date of Evaluation: 10/24/16 Time of Evaluation: 11:00 - Subjective Subjective: Patient has been seen and examined at bedside. She reported SOB that improves with oxygen. She also states her pain is being controlled. ROS limited due to patient drowsiness. Objective - Vital Signs/Intake and Output Vital Signs (last 24 hours): Temp Pulse Resp BP Pulse Ox 97.8 F 100 H 20 107/72 98 10/24/16 07:00 10/24/16 07:00 10/24/16 07:00 10/24/16 07:00 10/24/16 07:00 - Medications Medications: Current Medications Albuterol Sulfate (Albuterol 0.083% Inhal Rika (2.5 Mg/3 Ml) Ud) 2.5 mg IH [id number] PRN PRN Reason: Shortness of Breath Diphenhydramine HCl (Benadryl) 25 mg IVP BID PRN PRN Reason: Itching / Pruritus Last Admin: 10/24/16 09:10 Dose: 25 mg Divalproex Sodium (Depakote Dr (*Bid*)) 250 mg PO TID [facility] PRN Reason: Protocol Last Admin: 10/24/16 13:37 Dose: 250 mg Ergocalciferol (Drisdol 50,000 Intl Units Cap) 1 cap PO Q7D [facility] Folic Acid (Folic Acid) 1 mg PO DAILY [facility] Last Admin: 10/24/16 09:13 Dose: 1 mg Hydromorphone HCl (Dilaudid) 1 mg IVP Q4H PRN PRN Reason: Pain, severe (8-10) Last Admin: 10/24/16 13:38 Dose: 1 mg Hydroxyurea (Hydrea) 500 mg PO DAILY [facility] Last Admin: 10/24/16 09:28 Dose: 500 mg Sodium Chloride (Sodium Chloride 0.45%) 1,000 mls @ 100 mls/hr IV .Q10H [facility] Last Admin: 10/24/16 05:27 Dose: 100 mls/hr Ceftriaxone Sodium (Rocephin 1 Gram Ivpb) 1 gm in 100 mls @ 100 mls/hr IVPB DAILY [facility] PRN Reason: Protocol Last Admin: 10/24/16 09:12 Dose: 100 mls/hr Mometasone Furoate (Asmanex Twisthaler 220 Mcg) 1 puff IH QPM [facility] Multivitamins (Thera Tab) 1 tab PO DAILY [facility] Last Admin: 10/24/16 09:11 Dose: 1 tab Ondansetron HCl (Zofran Inj) 4 mg IVP Q4H PRN PRN Reason: Nausea/Vomiting Pantoprazole Sodium (Protonix Susp) 40 mg PO 0600 [facility] Last Admin: 10/24/16 05:15 Dose: 40 mg Polyethylene Glycol (Miralax) 17 gm PO DAILY [facility] Last Admin: 10/24/16 09:10 Dose: 17 gm Quetiapine Fumarate (Seroquel) 200 mg PO HS [facility] PRN Reason: Protocol Last Admin: 10/24/16 00:03 Dose: 200 mg Quetiapine Fumarate (Seroquel) 50 mg PO QAM [facility] PRN Reason: Protocol Last Admin: 10/24/16 09:11 Dose: 50 mg - Labs Labs: PT 12.9 Seconds (9.9-11.8) H 10/23/16 13:30 INR 1.19 (0.93-1.08) H 10/23/16 13:30 APTT > 180.0 Seconds (23.7-30.8) H* 10/23/16 13:30 - Head Exam Head Exam: ATRAUMATIC, NORMOCEPHALIC Additional comments: scab on lip. - Eye Exam Eye Exam: Normal appearance. absent: Scleral icterus - ENT Exam ENT Exam: Mucous Membranes Dry - Respiratory Exam Respiratory Exam: Clear to Ausculation Bilateral. absent: Rales, Rhonchi, Wheezes - Cardiovascular Exam Cardiovascular Exam: +S1, +S2, Murmur. absent: JVD - GI/Abdominal Exam GI & Abdominal Exam: Soft, Tenderness. absent: Distended, Rigid - Extremities Exam Extremities Exam: absent: Normal Capillary Refill, Pedal Edema Additional comments: Right shoulder tender to palpation. Restricted ROM. - Psychiatric Exam Psychiatric exam: Flat Affect Assessment and Plan - Assessment and Plan (Free Text) Assessment: This is a 35 yo female with past medical hx of cerebral palsy, bipolar disorder ,sickle cell disease, anxiety, asthma, CHF w/ EF of 35%, and elevated BP admitted for intractable generalized pain most prominent in right shoulder. Pain 2/2 to sickle cell disease. Plan: 1. Intractable Pain 2/2 sickle cell dx - Dilaudid 1 IVP Q4 for pain - Benadryl for pruritic 2/2 to dilaudid - normal Saline 100ml per hour - Patient was tachycardic likely because of the pain 2. Anemia - 2/2 Sickle cell disease -Monitor H&G. Hemoglobin 6.7 today. Will type and crossmatch for possible transfusion tomorrow. -Transfuse 1 unit if Hgb less than 7 -Heme Onc Consult- Dr Palacios -monitor CBC and reticulocyte count daily -Cont. Home Hyroxyurea -Cont. Home Vitamins 3. UTI - Cont. Ceftriaxone IV Day 2 -Leukocytosis @15.4 today. -Urine cultures pending. 4. Bipolar disorder -Cont. Home Depakote & Seroquel 5. Asthma - PRN albuterol -Asmanex 6. CHF w/ EF of 35% -CXR read Patchy infiltrate in the ifht upper lobe. Minimal infiltrate at right lung base GI/DVT Proph Protonix/SCDs Esteban Aly PGY1 Patient seen and discussed with Attending. <Jemma Pritchett - Last Filed: 10/24/16 16:16> Objective - Vital Signs/Intake and Output Vital Signs (last 24 hours): Temp Pulse Resp BP Pulse Ox 97.8 F 100 H 20 107/72 98 10/24/16 07:00 10/24/16 07:00 10/24/16 07:00 10/24/16 07:00 10/24/16 07:00 - Medications Medications: Current Medications Albuterol Sulfate (Albuterol 0.083% Inhal Rika (2.5 Mg/3 Ml) Ud) 2.5 mg IH [id number] PRN PRN Reason: Shortness of Breath Diphenhydramine HCl (Benadryl) 25 mg IVP BID PRN PRN Reason: Itching / Pruritus Last Admin: 10/24/16 09:10 Dose: 25 mg Divalproex Sodium (Thad Dumont (*Bid*)) 250 mg PO TID [facility] PRN Reason: Protocol Last Admin: 10/24/16 13:37 Dose: 250 mg Ergocalciferol (Drisdol 50,000 Intl Units Cap) 1 cap PO Q7D [facility] Folic Acid (Folic Acid) 1 mg PO DAILY [facility] Last Admin: 10/24/16 09:13 Dose: 1 mg Hydromorphone HCl (Dilaudid) 1 mg IVP Q4H PRN PRN Reason: Pain, severe (8-10) Last Admin: 10/24/16 13:38 Dose: 1 mg Hydroxyurea (Hydrea) 500 mg PO DAILY [facility] Last Admin: 10/24/16 09:28 Dose: 500 mg Sodium Chloride (Sodium Chloride 0.45%) 1,000 mls @ 100 mls/hr IV .Q10H [facility] Last Admin: 10/24/16 05:27 Dose: 100 mls/hr Ceftriaxone Sodium (Rocephin 1 Gram Ivpb) 1 gm in 100 mls @ 100 mls/hr IVPB DAILY [facility] PRN Reason: Protocol Last Admin: 10/24/16 09:12 Dose: 100 mls/hr Mometasone Furoate (Asmanex Twisthaler 220 Mcg) 1 puff IH QPM [facility] Multivitamins (Thera Tab) 1 tab PO DAILY [facility] Last Admin: 10/24/16 09:11 Dose: 1 tab Ondansetron HCl (Zofran Inj) 4 mg IVP Q4H PRN PRN Reason: Nausea/Vomiting Pantoprazole Sodium (Protonix Susp) 40 mg PO 0600 [facility] Last Admin: 10/24/16 05:15 Dose: 40 mg Polyethylene Glycol (Miralax) 17 gm PO DAILY [facility] Last Admin: 10/24/16 09:10 Dose: 17 gm Quetiapine Fumarate (Seroquel) 200 mg PO HS [facility] PRN Reason: Protocol Last Admin: 10/24/16 00:03 Dose: 200 mg Quetiapine Fumarate (Seroquel) 50 mg PO QAM [facility] PRN Reason: Protocol Last Admin: 10/24/16 09:11 Dose: 50 mg - Labs Labs: PT 12.9 Seconds (9.9-11.8) H 10/23/16 13:30 INR 1.19 (0.93-1.08) H 10/23/16 13:30 APTT > 180.0 Seconds (23.7-30.8) H* 10/23/16 13:30 Attending/Attestation - Attestation I have personally seen and examined this patient.: Yes I have fully participated in the care of the patient.: Yes I have reviewed all pertinent clinical information, including history, physical exam and plan: Yes Notes (Text): 10/24/16 16:13 attending note; Patient seen and examined with resident. Patient is a 35 year old female with history of sickle cell anemia, bipolar disorder, cerebral palsy, CHF with systolic dysfunction (EF~ 40%) who was admitted with sickle cell crisis. Continue oxygen, IV fluids, IV Dilaudid and folic acid. Hematology evaluation with Dr. Palacios appreciated. Reticulocyte count is 19.69. Hb is 6.7. Avoid transfusions due to iron overload. We will follow up with hematology. Mild leukocytosis is secondary to crisis. Patient is afebrile and nontoxic. UA with positive nitrate and leukocyte Estrace. Urine culture pending. On IV Rocephin. follow-up culture results. Bipolar disorder; continue home meds. Needs close hematology upon discharge.
[2016-10-24] MEDS: Mometasone 220 mcg/puff-14 puff Inh IH SCH (17:15)
[2016-10-24] MEDS: Petrolatum-Mineral Oil Oint (100gm) TOP SCH (18:45)
--- NOTE | 2016-10-24 22:13 | CP.PCM.CON ---
History of Present Illness - History of Present Illness History of Present Illness: 36 year old female with a history of sickle cell anemia and bipolar disorder, admitted with sickle cell pain crisis. She has been having worsening shoulder pain which radiates across her back and ribs. Her pain worsened yesterday during her birthday and was not relieved with oral pain meds which prompted her to come to the ER. She denies fevers and chills. She has no chest pain. Past medical history: Sickle cell disease, bipolar disorder. Past surgical history: portacath removal, cholecystectomy Family history: Both parents have sickle trait. Social history: Denies tobacco, alcohol, and illicit drug use. Allergies: Acetaminophen, aspirin, oxycodone. Review of systems: All remaining ROS including HEENT, cardiovascular, respiratory, gastrointestinal, genitourinary, musculoskeletal, dermatologic, neurologic, and psychiatric are negative unless mentioned in the HPI. Past Patient History - Infectious Disease Hx of Infectious Diseases: None - Tetanus Immunizations Tetanus Immunization: Up to Date - Past Medical History & Family History Past Medical History?: Yes - Past Social History Smoking Status: Former Smoker - CARDIAC Hx Cardiac Disorders: Yes Hx Angina: Yes Hx Hypertension: Yes - PULMONARY Hx Asthma: Yes - NEUROLOGICAL Hx Neurological Disorder: No Other/Comment: CP - HEENT Hx HEENT Problems: No - RENAL Hx Chronic Kidney Disease: No - ENDOCRINE/METABOLIC Hx Endocrine Disorders: Yes - HEMATOLOGICAL/ONCOLOGICAL Hx Blood Disorders: Yes Hx Anemia: Yes - INTEGUMENTARY Hx Dermatological Problems: Yes Hx Eczema: Yes - MUSCULOSKELETAL/RHEUMATOLOGICAL Hx Falls: No - GASTROINTESTINAL Hx Gastrointestinal Disorders: Yes Hx Gastroesophageal Reflux: Yes Hx Pancreatitis: Yes - GENITOURINARY/GYNECOLOGICAL Hx Genitourinary Disorders: Yes Hx Urinary Tract Infection: Yes - PSYCHIATRIC Hx Psychophysiologic Disorder: Yes Hx Anxiety: Yes Hx Bipolar Disorder: Yes Hx Substance Use: No - SURGICAL HISTORY Hx Cholecystectomy: Yes Hx Splenectomy: Yes - ANESTHESIA Hx Anesthesia: Yes Hx Anesthesia Reactions: No Hx Malignant Hyperthermia: No Meds Allergies/Adverse Reactions: Allergies Allergy/AdvReac Type Severity Reaction Status Date / Time acetaminophen Allergy RASH Verified 09/24/16 12:42 aspirin Allergy RASH Verified 09/24/16 12:42 coconut oil Allergy RASH Verified 09/24/16 12:42 morphine Allergy SWELLING Verified 09/24/16 12:42 mushroom Allergy URTICARIA Verified 09/24/16 12:42 oxycodone Allergy RASH Verified 09/24/16 12:42 - Medications Medications: Current Medications Albuterol Sulfate (Albuterol 0.083% Inhal Rika (2.5 Mg/3 Ml) Ud) 2.5 mg IH [id number] PRN PRN Reason: Shortness of Breath Diphenhydramine HCl (Benadryl) 25 mg IVP BID PRN PRN Reason: Itching / Pruritus Last Admin: 10/24/16 21:16 Dose: 25 mg Divalproex Sodium (Depakote Dr (*Bid*)) 250 mg PO TID [facility] PRN Reason: Protocol Last Admin: 10/24/16 17:15 Dose: 250 mg Ergocalciferol (Drisdol 50,000 Intl Units Cap) 1 cap PO Q7D [facility] Folic Acid (Folic Acid) 1 mg PO DAILY [facility] Last Admin: 10/24/16 09:13 Dose: 1 mg Hydromorphone HCl (Dilaudid) 1 mg IVP Q4H PRN PRN Reason: Pain, severe (8-10) Last Admin: 10/24/16 21:15 Dose: 1 mg Hydroxyurea (Hydrea) 500 mg PO DAILY [facility] Last Admin: 10/24/16 09:28 Dose: 500 mg Sodium Chloride (Sodium Chloride 0.45%) 1,000 mls @ 100 mls/hr IV .Q10H [facility] Last Admin: 10/24/16 05:27 Dose: 100 mls/hr Ceftriaxone Sodium (Rocephin 1 Gram Ivpb) 1 gm in 100 mls @ 100 mls/hr IVPB DAILY [facility] PRN Reason: Protocol Last Admin: 10/24/16 09:12 Dose: 100 mls/hr Mometasone Furoate (Asmanex Twisthaler 220 Mcg) 1 puff IH QPM [facility] Last Admin: 10/24/16 17:15 Dose: 1 puff Multi-Ingredient Ointment (Hydrophor Oint) 0 gm TOP Q6H [facility] Last Admin: 10/24/16 18:45 Dose: 1 applic Multivitamins (Thera Tab) 1 tab PO DAILY [facility] Last Admin: 10/24/16 09:11 Dose: 1 tab Ondansetron HCl (Zofran Inj) 4 mg IVP Q4H PRN PRN Reason: Nausea/Vomiting Pantoprazole Sodium (Protonix Susp) 40 mg PO 0600 [facility] Last Admin: 10/24/16 05:15 Dose: 40 mg Polyethylene Glycol (Miralax) 17 gm PO DAILY [facility] Last Admin: 10/24/16 09:10 Dose: 17 gm Quetiapine Fumarate (Seroquel) 200 mg PO HS [facility] PRN Reason: Protocol Last Admin: 10/24/16 21:16 Dose: 200 mg Quetiapine Fumarate (Seroquel) 50 mg PO QAM [facility] PRN Reason: Protocol Last Admin: 10/24/16 09:11 Dose: 50 mg Physical Exam - Head Exam Head Exam: ATRAUMATIC - Eye Exam Eye Exam: Normal appearance - ENT Exam ENT Exam: Mucous Membranes Dry - Respiratory Exam Respiratory Exam: NORMAL BREATHING PATTERN - Cardiovascular Exam Cardiovascular Exam: +S1, +S2 - GI/Abdominal Exam GI & Abdominal Exam: Normal Bowel Sounds - Extremities Exam Additional comments: +contractures - Neurological Exam Neurological exam: Oriented x3 - Psychiatric Exam Psychiatric exam: Normal Affect, Normal Mood - Skin Skin Exam: Warm Results - Vital Signs Recent Vital Signs: Last Vital Signs Temp 97.8 F 10/24/16 16:51 Pulse 66 10/24/16 16:51 Resp 20 10/24/16 16:51 BP 111/69 10/24/16 16:51 Pulse Ox 100 10/24/16 16:51 - Labs Result Diagrams: 10/24/16 09:01 10/24/16 09:01 Assessment & Plan (1) Sickle cell pain crisis Assessment and Plan: IV fluids, pain meds, folic acid, 02 via NC recommend transfusing 1 unit PRBC Status: Acute (2) Leukocytosis Assessment and Plan: on antibiotics may have reactive component from sickle cell Status: Acute (3) Thrombocytopenia Assessment and Plan: mild likely secondary to hydroxyurea Status: Chronic (4) Iron overload due to repeated red blood cell transfusions Assessment and Plan: outpatient chelation Status: Chronic (5) Sickle cell anemia Assessment and Plan: Folic acid and hydrea Thank you for this interesting consult. Status: Chronic
[2016-10-25] MEDS: HYDROmorphone 1 mg/ml ISec IVP PRN ×2 (03:09→06:54)
[2016-10-25 06:45] LABS: INR 1.21 (0.93-1.08); PARTIAL THROMBOPLASTIN TIME 33.6 Seconds (23.7-30.8)
[2016-10-25 06:47] LABS: HEMATOCRIT 24.4 % (36.0-48.0); MEAN CELL VOLUME 107.5 fl (80.0-105.0); MEAN CORPUSCULAR HEMOGLOBIN 37.9 pg (25.0-35.0); MEAN CORPUSCULAR HGB CONC 35.2 g/dl (31.0-37.0); MEAN PLATELET VOLUME 11.1 fl (7.0-11.0); PLATELET COUNT 109 10^3/uL (120.0-450.0); RED CELL DISTRIBUTION WIDTH 21.6 % (11.5-14.5); WHITE BLOOD COUNT 18.1 10^3/ul (4.5-11.0)
[2016-10-25] MEDS: Pantoprazole 40 mg Susp UD PO SCH (06:47)
[2016-10-25] MEDS: Petrolatum-Mineral Oil Oint (100gm) TOP SCH ×3 (06:47→23:30)
[2016-10-25 06:58] LABS: RETIC% 21.45 % (0.5-1.5)
[2016-10-25 07:00] LABS: IRON 166 ug/dL (45-180)
[2016-10-25 07:10] LABS: ALB/GLOB RATIO 0.8 (1.1-1.8); ALKALINE PHOSPHATASE 146 U/L (38-126); ALT/SGPT 66 U/L (7-56); AST/SGOT 150 U/L (14-36); BILIRUBIN,TOTAL 3.9 mg/dL (0.2-1.3); BLOOD UREA NITROGEN 12 mg/dL (7-21); CALCIUM 8.3 mg/dL (8.4-10.5); CARBON DIOXIDE 22 mmol/L (21-33); CHLORIDE 103 mmol/L (98-107); GFR AFRICAN-AMERICAN > 60; GLUCOSE,RANDOM 104 mg/dL (70-110); POTASSIUM 4.3 mmol/L (3.6-5.0); SODIUM 135 mmol/L (132-148); TOTAL PROTEIN 7.7 g/dL (5.8-8.3)
[2016-10-25] MEDS: Multivitamin Therapeutic Tab PO SCH (10:39)
[2016-10-25] MEDS: Sodium Chloride 0.45% 1,000 ML IV SCH (10:42)
[2016-10-25] MEDS: cefTRIAXone 1 gm 1 GM/100 ML BAG IVPB SCH (10:55)
[2016-10-25] MEDS: Divalproex 250 mg DR (BID formulation) PO SCH ×3 (11:12→18:29)
[2016-10-25] MEDS: POLYETHYLENE GLYCOL 3350 17 GM/Dose PACKET PO SCH (11:14)
--- NOTE | 2016-10-25 13:24 | CP.PCM.PN ---
<Esteban Aly - Last Filed: 10/25/16 13:34> Subjective - Date & Time of Evaluation Date of Evaluation: 10/25/16 Time of Evaluation: 10:00 - Subjective Subjective: Patient has been seen and examined. No overnight events reported. ROS limited due to patient's drowsiness s/p medications. She reports improved SOB and right shoulder pain. Objective - Vital Signs/Intake and Output Vital Signs (last 24 hours): Temp Pulse Resp BP Pulse Ox 99.1 F 112 H 20 118/88 100 10/25/16 08:28 10/25/16 08:28 10/25/16 08:28 10/25/16 08:28 10/25/16 08:28 Intake and Output: 10/25/16 10/25/16 06:59 18:59 Intake Total 815 Balance 815 - Medications Medications: Current Medications Albuterol Sulfate (Albuterol 0.083% Inhal Rika (2.5 Mg/3 Ml) Ud) 2.5 mg IH [id number] PRN PRN Reason: Shortness of Breath Diphenhydramine HCl (Benadryl) 25 mg IVP BID PRN PRN Reason: Itching / Pruritus Last Admin: 10/24/16 21:16 Dose: 25 mg Divalproex Sodium (Depakote Dr (*Bid*)) 250 mg PO TID [facility] PRN Reason: Protocol Last Admin: 10/25/16 11:12 Dose: 250 mg Ergocalciferol (Drisdol 50,000 Intl Units Cap) 1 cap PO Q7D [facility] Folic Acid (Folic Acid) 1 mg PO DAILY [facility] Last Admin: 10/25/16 11:12 Dose: 1 mg Hydromorphone HCl (Dilaudid) 0.5 mg IVP Q4H PRN PRN Reason: Pain, severe (8-10) Hydroxyurea (Hydrea) 500 mg PO DAILY [facility] Last Admin: 10/25/16 11:12 Dose: 500 mg Sodium Chloride (Sodium Chloride 0.45%) 1,000 mls @ 100 mls/hr IV .Q10H [facility] Last Admin: 10/25/16 10:42 Dose: 100 mls/hr Ceftriaxone Sodium (Rocephin 1 Gram Ivpb) 1 gm in 100 mls @ 100 mls/hr IVPB DAILY [facility] PRN Reason: Protocol Last Admin: 10/25/16 10:55 Dose: 100 mls/hr Mometasone Furoate (Asmanex Twisthaler 220 Mcg) 1 puff IH QPM [facility] Last Admin: 10/24/16 17:15 Dose: 1 puff Multi-Ingredient Ointment (Hydrophor Oint) 0 gm TOP Q6H [facility] Last Admin: 10/25/16 06:47 Dose: 1 applic Multivitamins (Thera Tab) 1 tab PO DAILY [facility] Last Admin: 10/25/16 10:39 Dose: 1 tab Ondansetron HCl (Zofran Inj) 4 mg IVP Q4H PRN PRN Reason: Nausea/Vomiting Pantoprazole Sodium (Protonix Susp) 40 mg PO 0600 [facility] Last Admin: 10/25/16 06:47 Dose: 40 mg Polyethylene Glycol (Miralax) 17 gm PO DAILY [facility] Last Admin: 10/25/16 11:14 Dose: 17 gm Quetiapine Fumarate (Seroquel) 200 mg PO HS [facility] PRN Reason: Protocol Last Admin: 10/24/16 21:16 Dose: 200 mg Quetiapine Fumarate (Seroquel) 50 mg PO QAM [facility] PRN Reason: Protocol Last Admin: 10/25/16 11:13 Dose: 50 mg - Labs Labs: 10/25/16 06:20 10/25/16 06:20 PT 13.1 Seconds (9.9-11.8) H 10/25/16 06:20 INR 1.21 (0.93-1.08) H 10/25/16 06:20 APTT 33.6 Seconds (23.7-30.8) H 10/25/16 06:20 - Constitutional Appears: No Acute Distress, Chronically Ill - Head Exam Head Exam: ATRAUMATIC, NORMOCEPHALIC Additional comments: Scab on Lip - Eye Exam Eye Exam: Normal appearance - ENT Exam ENT Exam: Mucous Membranes Moist - Respiratory Exam Respiratory Exam: Clear to Ausculation Bilateral. absent: Rales, Rhonchi - Cardiovascular Exam Cardiovascular Exam: Tachycardia, REGULAR RHYTHM, +S1, +S2 - GI/Abdominal Exam GI & Abdominal Exam: Soft, Normal Bowel Sounds. absent: Tenderness - Extremities Exam Extremities Exam: absent: Pedal Edema - Neurological Exam Neurological Exam: Awake, Oriented x3 - Psychiatric Exam Psychiatric exam: Flat Affect Assessment and Plan - Assessment and Plan (Free Text) Assessment: This is a 35 yo female with past medical hx of cerebral palsy, bipolar disorder ,sickle cell disease, anxiety, asthma, CHF w/ EF of 35%, and elevated BP admitted for intractable generalized pain most prominent in right shoulder. Pain 2/2 to sickle cell disease. Plan: 1. Intractable Pain 2/2 sickle cell dx - Dilaudid 1 IVP Q4 for pain decreased to 0.5mg - Benadryl for pruritic 2/2 to dilaudid - normal Saline 100ml per hour - Patient was tachycardic likely because of the pain 2. Anemia - 2/2 Sickle cell disease -Monitor H&G. Hemoglobin 6.7 today. Will type and crossmatch for possible transfusion tomorrow. -Transfuse 1 unit if Hgb less than 7 -Ferritin lvls ordered -Heme Onc Consult- Dr Palacios -monitor CBC and reticulocyte count daily. Retic count 21.45 today (Increased). -Cont. Home Hyroxyurea -Cont. Home Vitamins 3. UTI - Cont. Ceftriaxone IV Day 3 -Leukocytosis @15.4 today likely 2/2 to crisis -Preliminary Urine cultures showed gram negative rods. -ID consulted, recs appreciated. 4. Thrombocytopenia -likely 2/2 hydroxyurea. (109 today) 5. Bipolar disorder -Cont. Home Depakote & Seroquel 6. Asthma - PRN albuterol -Asmanex 7. CHF w/ EF of 35% -CXR read Patchy infiltrate in the ifht upper lobe. Minimal infiltrate at right lung base GI/DVT Proph Protonix/SCDs Dispo: Hydrophor Ointment for scab on lip Esteban Aly PGY1 Patient seen and discussed with Attending. <Jemma Pritchett - Last Filed: 10/25/16 14:10> Objective - Vital Signs/Intake and Output Vital Signs (last 24 hours): Temp Pulse Resp BP Pulse Ox 99.1 F 112 H 20 118/88 100 10/25/16 08:28 10/25/16 08:28 10/25/16 08:28 10/25/16 08:28 10/25/16 08:28 Intake and Output: 10/25/16 10/25/16 06:59 18:59 Intake Total 815 Balance 815 - Medications Medications: Current Medications Albuterol Sulfate (Albuterol 0.083% Inhal Rika (2.5 Mg/3 Ml) Ud) 2.5 mg IH [id number] PRN PRN Reason: Shortness of Breath Diphenhydramine HCl (Benadryl) 25 mg IVP BID PRN PRN Reason: Itching / Pruritus Last Admin: 10/24/16 21:16 Dose: 25 mg Divalproex Sodium (Depakote Dr (*Bid*)) 250 mg PO TID [facility] PRN Reason: Protocol Last Admin: 10/25/16 11:12 Dose: 250 mg Ergocalciferol (Drisdol 50,000 Intl Units Cap) 1 cap PO Q7D [facility] Folic Acid (Folic Acid) 1 mg PO DAILY [facility] Last Admin: 10/25/16 11:12 Dose: 1 mg Hydromorphone HCl (Dilaudid) 0.5 mg IVP Q4H PRN PRN Reason: Pain, severe (8-10) Last Admin: 10/25/16 13:52 Dose: 0.5 mg Hydroxyurea (Hydrea) 500 mg PO DAILY [facility] Last Admin: 10/25/16 11:12 Dose: 500 mg Ceftriaxone Sodium (Rocephin 1 Gram Ivpb) 1 gm in 100 mls @ 100 mls/hr IVPB DAILY [facility] PRN Reason: Protocol Last Admin: 10/25/16 10:55 Dose: 100 mls/hr Sodium Chloride (Sodium Chloride 0.9%) 1,000 mls @ 125 mls/hr IV .Q8H [facility] Mometasone Furoate (Asmanex Twisthaler 220 Mcg) 1 puff IH QPM [facility] Last Admin: 10/24/16 17:15 Dose: 1 puff Multi-Ingredient Ointment (Hydrophor Oint) 0 gm TOP Q6H [facility] Last Admin: 10/25/16 11:15 Dose: 1 applic Multivitamins (Thera Tab) 1 tab PO DAILY [facility] Last Admin: 10/25/16 10:39 Dose: 1 tab Ondansetron HCl (Zofran Inj) 4 mg IVP Q4H PRN PRN Reason: Nausea/Vomiting Pantoprazole Sodium (Protonix Susp) 40 mg PO 0600 [facility] Last Admin: 10/25/16 06:47 Dose: 40 mg Polyethylene Glycol (Miralax) 17 gm PO DAILY [facility] Last Admin: 10/25/16 11:14 Dose: 17 gm Quetiapine Fumarate (Seroquel) 200 mg PO HS [facility] PRN Reason: Protocol Last Admin: 10/24/16 21:16 Dose: 200 mg Quetiapine Fumarate (Seroquel) 50 mg PO QAM [facility] PRN Reason: Protocol Last Admin: 10/25/16 11:13 Dose: 50 mg - Labs Labs: 10/25/16 06:20 10/25/16 06:20 PT 13.1 Seconds (9.9-11.8) H 10/25/16 06:20 INR 1.21 (0.93-1.08) H 10/25/16 06:20 APTT 33.6 Seconds (23.7-30.8) H 10/25/16 06:20 Attending/Attestation - Attestation I have personally seen and examined this patient.: Yes I have fully participated in the care of the patient.: Yes I have reviewed all pertinent clinical information, including history, physical exam and plan: Yes Notes (Text): 10/25/16 14:08 attending note; Patient seen and examined with resident. Patient is a 35 year old female with history of sickle cell anemia, bipolar disorder, cerebral palsy, CHF with systolic dysfunction (EF~ 40%) who was admitted with sickle cell crisis. Continue oxygen, IV fluids, IV Dilaudid and folic acid. Hematology evaluation with Dr. Palacios appreciated. Reticulocyte count is 21.45. Hb is 8.6. s/p 1 unit PRBC transfusion yesterday. Decreased pain medication. Mild leukocytosis is secondary to crisis. Patient is afebrile and nontoxic. UA with positive nitrate and leukocyte Estrace. Urine culture pending. On IV Rocephin. follow-up culture results. Bipolar disorder; continue home meds. Needs close hematology upon discharge.
[2016-10-25] MEDS: HYDROmorphone 0.5 mg/0.5 ml ISec IVP PRN ×2 (13:52→20:05)
[2016-10-25] MEDS: Sodium Chloride 0.9% 1,000 ML IV SCH ×2 (14:40→21:24)
[2016-10-26] MEDS: HYDROmorphone 0.5 mg/0.5 ml ISec IVP PRN ×5 (03:16→21:46)
[2016-10-26 06:14] LABS: ALB/GLOB RATIO 0.7 (1.1-1.8); ALKALINE PHOSPHATASE 129 U/L (38-126); ALT/SGPT 62 U/L (7-56); AST/SGOT 125 U/L (14-36); BILIRUBIN,TOTAL 3.2 mg/dL (0.2-1.3); BLOOD UREA NITROGEN 7 mg/dL (7-21); CALCIUM 8.1 mg/dL (8.4-10.5); CARBON DIOXIDE 24 mmol/L (21-33); CHLORIDE 109 mmol/L (98-107); GFR AFRICAN-AMERICAN > 60; GLUCOSE,RANDOM 97 mg/dL (70-110); POTASSIUM 3.7 mmol/L (3.6-5.0); SODIUM 140 mmol/L (132-148); TOTAL PROTEIN 6.9 g/dL (5.8-8.3)
[2016-10-26] MEDS: Petrolatum-Mineral Oil Oint (100gm) TOP SCH ×4 (06:15→22:32)
[2016-10-26] MEDS: Pantoprazole 40 mg Susp UD PO SCH (06:15)
[2016-10-26] MEDS: Sodium Chloride 0.9% 1,000 ML IV SCH ×3 (06:30→22:45)
[2016-10-26 06:31] LABS: HEMATOCRIT 24.4 % (36.0-48.0); MEAN CORPUSCULAR HEMOGLOBIN 38.5 pg (25.0-35.0); MEAN CORPUSCULAR HGB CONC 35.7 g/dl (31.0-37.0); PLATELET COUNT 140 10^3/uL (120.0-450.0); RED CELL DISTRIBUTION WIDTH 23.4 % (11.5-14.5); WHITE BLOOD COUNT 16.4 10^3/ul (4.5-11.0)
[2016-10-26 06:40] LABS: RETIC% 22.78 % (0.5-1.5)
[2016-10-26] MEDS: Divalproex 250 mg DR (BID formulation) PO SCH ×3 (09:32→17:16)
[2016-10-26] MEDS: Multivitamin Therapeutic Tab PO SCH (09:32)
[2016-10-26] MEDS: cefTRIAXone 1 gm 1 GM/100 ML BAG IVPB SCH (09:33)
[2016-10-26] MEDS: POLYETHYLENE GLYCOL 3350 17 GM/Dose PACKET PO SCH (09:33)
--- NOTE | 2016-10-26 12:42 | CP.PCM.PN ---
"<Esteban Aly - Last Filed: 10/26/16 12:55> Subjective - Date & Time of Evaluation Date of Evaluation: 10/26/16 Time of Evaluation: 12:39 - Subjective Subjective: Patient has been seen and examined. She reports shoulder pain that has not improved, and slight headache. Denies SOB, Chest pain, palpitations, n/v/d/ or constipation. Objective - Vital Signs/Intake and Output Vital Signs (last 24 hours): Temp Pulse Resp BP Pulse Ox 98.9 F 108 H 20 118/84 99 10/26/16 07:30 10/26/16 07:30 10/26/16 07:30 10/26/16 07:30 10/26/16 07:30 Intake and Output: 10/26/16 10/26/16 06:59 18:59 Intake Total 540 Output Total 0 Balance 540 - Medications Medications: Current Medications Albuterol Sulfate (Albuterol 0.083% Inhal Rika (2.5 Mg/3 Ml) Ud) 2.5 mg IH [id number] PRN PRN Reason: Shortness of Breath Diphenhydramine HCl (Benadryl) 25 mg IVP BID PRN PRN Reason: Itching / Pruritus Last Admin: 10/24/16 21:16 Dose: 25 mg Divalproex Sodium (Depakote Dr (*Bid*)) 250 mg PO TID [facility] PRN Reason: Protocol Last Admin: 10/26/16 09:32 Dose: 250 mg Ergocalciferol (Drisdol 50,000 Intl Units Cap) 1 cap PO Q7D [facility] Folic Acid (Folic Acid) 1 mg PO DAILY [facility] Last Admin: 10/26/16 09:32 Dose: 1 mg Hydromorphone HCl (Dilaudid) 0.5 mg IVP Q4H PRN PRN Reason: Pain, severe (8-10) Last Admin: 10/26/16 11:06 Dose: 0.5 mg Hydroxyurea (Hydrea) 500 mg PO DAILY [facility] Last Admin: 10/25/16 18:30 Dose: 500 mg Ceftriaxone Sodium (Rocephin 1 Gram Ivpb) 1 gm in 100 mls @ 100 mls/hr IVPB DAILY [facility] PRN Reason: Protocol Last Admin: 10/26/16 09:33 Dose: 100 mls/hr Sodium Chloride (Sodium Chloride 0.9%) 1,000 mls @ 125 mls/hr IV .Q8H [facility] Last Admin: 10/26/16 06:30 Dose: 125 mls/hr Mometasone Furoate (Asmanex Twisthaler 220 Mcg) 1 puff IH QPM [facility] Last Admin: 10/24/16 17:15 Dose: 1 puff Multi-Ingredient Ointment (Hydrophor Oint) 0 gm TOP Q6H [facility] Last Admin: 10/26/16 06:15 Dose: 1 applic Multivitamins (Thera Tab) 1 tab PO DAILY [facility] Last Admin: 10/26/16 09:32 Dose: 1 tab Ondansetron HCl (Zofran Inj) 4 mg IVP Q4H PRN PRN Reason: Nausea/Vomiting Pantoprazole Sodium (Protonix Susp) 40 mg PO 0600 [facility] Last Admin: 10/26/16 06:15 Dose: 40 mg Polyethylene Glycol (Miralax) 17 gm PO DAILY [facility] Last Admin: 10/26/16 09:33 Dose: 17 gm Quetiapine Fumarate (Seroquel) 200 mg PO HS [facility] PRN Reason: Protocol Last Admin: 10/25/16 21:24 Dose: 200 mg Quetiapine Fumarate (Seroquel) 50 mg PO QAM [facility] PRN Reason: Protocol Last Admin: 10/26/16 09:33 Dose: 50 mg Tramadol HCl (Ultram) 25 mg PO TID [facility] Last Admin: 10/26/16 09:52 Dose: 25 mg - Labs Labs: 10/26/16 05:51 10/26/16 05:51 PT 13.1 Seconds (9.9-11.8) H 10/25/16 06:20 INR 1.21 (0.93-1.08) H 10/25/16 06:20 APTT 33.6 Seconds (23.7-30.8) H 10/25/16 06:20 - Head Exam Head Exam: ATRAUMATIC, NORMAL INSPECTION, NORMOCEPHALIC Additional comments: scab on lip (improved) - Eye Exam Eye Exam: EOMI, Normal appearance - ENT Exam ENT Exam: Mucous Membranes Moist - Respiratory Exam Respiratory Exam: Clear to Ausculation Bilateral. absent: Rhonchi, Wheezes - Cardiovascular Exam Cardiovascular Exam: +S1, +S2. absent: Tachycardia - GI/Abdominal Exam GI & Abdominal Exam: Soft, Normal Bowel Sounds. absent: Organomegaly - Extremities Exam Additional comments: Right Shoulder tender to palpation. ROM restricted. - Psychiatric Exam Psychiatric exam: Normal Affect, Normal Mood Assessment and Plan - Assessment and Plan (Free Text) Assessment: This is a 35 yo female with past medical hx of cerebral palsy, bipolar disorder ,sickle cell disease, anxiety, asthma, CHF w/ EF of 35%, and elevated BP admitted for intractable generalized pain most prominent in right shoulder. Pain 2/2 to sickle cell disease. Plan: 1. Intractable Pain 2/2 sickle cell dx - Dilaudid 0.5 IVP Q4 for pain | Tramadol 25mg TID for pain - Benadryl for pruritic 2/2 to dilaudid - normal Saline 100ml per hour - Patient was tachycardic likely because of the pain 2. Anemia - 2/2 Sickle cell disease -Monitor H&G. 8.7 today | Monitor Retic count increased to 22.78 today. -Transfuse 1 unit if Hgb less than 7 -Ferritin lvls > 1000 -Heme Onc Consult- Dr Palacios -Cont. Home Hyroxyurea -Cont. Home Vitamins 3. UTI - Cont. Ceftriaxone IV Day 3 -Leukocytosis dec. to 16.4 today likely 2/2 to crisis -Preliminary Urine cultures showed Klebsiella Pneumonia -ID consulted, recs appreciated. 4. Thrombocytopenia (Stable) -likely 2/2 hydroxyurea. (140 today) 5. Bipolar disorder -Cont. Home Depakote & Seroquel 6. Asthma - PRN albuterol -Asmanex 7. CHF w/ EF of 35% -CXR read Patchy infiltrate in the ifht upper lobe. Minimal infiltrate at right lung base GI/DVT Proph Protonix/SCDs Esteban Aly PGY1 Patient seen and discussed with Attending. <Elzbieta ANGUIANO,Jena - Last Filed: 10/26/16 15:44> Objective - Vital Signs/Intake and Output Vital Signs (last 24 hours): Temp Pulse Resp BP Pulse Ox 98.9 F 108 H 20 118/84 99 10/26/16 07:30 10/26/16 07:30 10/26/16 07:30 10/26/16 07:30 10/26/16 07:30 Intake and Output: 10/26/16 10/26/16 06:59 18:59 Intake Total 540 Output Total 0 Balance 540 - Medications Medications: Current Medications Albuterol Sulfate (Albuterol 0.083% Inhal Rika (2.5 Mg/3 Ml) Ud) 2.5 mg IH [id number] PRN PRN Reason: Shortness of Breath Diphenhydramine HCl (Benadryl) 25 mg IVP BID PRN PRN Reason: Itching / Pruritus Last Admin: 10/24/16 21:16 Dose: 25 mg Divalproex Sodium (Depakote Dr (*Bid*)) 250 mg PO TID [facility] PRN Reason: Protocol Last Admin: 10/26/16 14:43 Dose: 250 mg Ergocalciferol (Drisdol 50,000 Intl Units Cap) 1 cap PO Q7D [facility] Folic Acid (Folic Acid) 1 mg PO DAILY [facility] Last Admin: 10/26/16 09:32 Dose: 1 mg Hydromorphone HCl (Dilaudid) 0.5 mg IVP Q4H PRN PRN Reason: Pain, severe (8-10) Last Admin: 10/26/16 11:06 Dose: 0.5 mg Hydroxyurea (Hydrea) 500 mg PO DAILY [facility] Last Admin: 10/26/16 13:54 Dose: 500 mg Ceftriaxone Sodium (Rocephin 1 Gram Ivpb) 1 gm in 100 mls @ 100 mls/hr IVPB DAILY [facility] PRN Reason: Protocol Last Admin: 10/26/16 09:33 Dose: 100 mls/hr Sodium Chloride (Sodium Chloride 0.9%) 1,000 mls @ 125 mls/hr IV .Q8H [facility] Last Admin: 10/26/16 14:43 Dose: 125 mls/hr Mometasone Furoate (Asmanex Twisthaler 220 Mcg) 1 puff IH QPM [facility] Last Admin: 10/24/16 17:15 Dose: 1 puff Multi-Ingredient Ointment (Hydrophor Oint) 0 gm TOP Q6H [facility] Last Admin: 10/26/16 14:43 Dose: 1 applic Multivitamins (Thera Tab) 1 tab PO DAILY [facility] Last Admin: 10/26/16 09:32 Dose: 1 tab Ondansetron HCl (Zofran Inj) 4 mg IVP Q4H PRN PRN Reason: Nausea/Vomiting Pantoprazole Sodium (Protonix Susp) 40 mg PO 0600 [facility] Last Admin: 10/26/16 06:15 Dose: 40 mg Polyethylene Glycol (Miralax) 17 gm PO DAILY [facility] Last Admin: 10/26/16 09:33 Dose: 17 gm Quetiapine Fumarate (Seroquel) 200 mg PO HS [facility] PRN Reason: Protocol Last Admin: 10/25/16 21:24 Dose: 200 mg Quetiapine Fumarate (Seroquel) 50 mg PO QAM [facility] PRN Reason: Protocol Last Admin: 10/26/16 09:33 Dose: 50 mg Tramadol HCl (Ultram) 25 mg PO TID [facility] Last Admin: 10/26/16 14:44 Dose: 25 mg - Labs Labs: 10/26/16 05:51 10/26/16 05:51 PT 13.1 Seconds (9.9-11.8) H 10/25/16 06:20 INR 1.21 (0.93-1.08) H 10/25/16 06:20 APTT 33.6 Seconds (23.7-30.8) H 10/25/16 06:20 Attending/Attestation - Attestation I have personally seen and examined this patient.: Yes I have fully participated in the care of the patient.: Yes I have reviewed all pertinent clinical information, including history, physical exam and plan: Yes Notes (Text): 10/26/16 15:39 Patient was seen and examined with medical investigator. Agreed with resident assessment and plan. 35 year old female with PMH of sickle cell disease, hypertension, asthma, cerebral palsy, and bipolar/depression was admitted with sickle cell crisis and UTI,.Patient hemoglobin is stable after one unit of PRBC.Reticulocyte count is still high, patient pain medications are adjusted.We will continue IV fluid , there is no sign of heart failure at athis time.Patient is on Rocephin for K.Pneumonia UTI. Management plan was discussed in detail with patient, need reinforcement. Education was provided. 10/26/16 15:42"
[2016-10-26] MEDS: Mometasone 220 mcg/puff-14 puff Inh IH SCH (18:32)
[2016-10-27] MEDS: HYDROmorphone 0.5 mg/0.5 ml ISec IVP PRN ×4 (04:35→22:27)
[2016-10-27] MEDS: Petrolatum-Mineral Oil Oint (100gm) TOP SCH ×4 (05:26→22:45)
[2016-10-27] MEDS: Pantoprazole 40 mg Susp UD PO SCH (05:26)
[2016-10-27] MEDS: Sodium Chloride 0.9% 1,000 ML IV SCH ×3 (05:27→22:28)
[2016-10-27] MEDS: DiphenhydrAMINE 50 mg/ml Inj IVP PRN ×2 (05:28→11:45)
[2016-10-27 05:55] LABS: MEAN CELL VOLUME 107.7 fl (80.0-105.0); MEAN CORPUSCULAR HEMOGLOBIN 38.6 pg (25.0-35.0); MEAN CORPUSCULAR HGB CONC 35.9 g/dl (31.0-37.0); MEAN PLATELET VOLUME 10.3 fl (7.0-11.0); WHITE BLOOD COUNT 10.6 10^3/ul (4.5-11.0)
[2016-10-27 05:58] LABS: HEMATOCRIT 23.7 % (36.0-48.0)
[2016-10-27 05:59] LABS: RETIC% 17.78 % (0.5-1.5)
[2016-10-27 06:02] LABS: ALB/GLOB RATIO 0.7 (1.1-1.8); ALKALINE PHOSPHATASE 119 U/L (38-126); ALT/SGPT 60 U/L (7-56); AST/SGOT 107 U/L (14-36); BILIRUBIN,TOTAL 2.8 mg/dL (0.2-1.3); BLOOD UREA NITROGEN 5 mg/dL (7-21); CALCIUM 7.5 mg/dL (8.4-10.5); CARBON DIOXIDE 22 mmol/L (21-33); CHLORIDE 110 mmol/L (98-107); GFR AFRICAN-AMERICAN > 60; GLUCOSE,RANDOM 87 mg/dL (70-110); POTASSIUM 3.4 mmol/L (3.6-5.0); SODIUM 139 mmol/L (132-148); TOTAL PROTEIN 6.4 g/dL (5.8-8.3)
[2016-10-27] MEDS ORDERED: Potassium Chloride 20 mEq ER Tab PO STA (08:53)
[2016-10-27] MEDS: cefTRIAXone 1 gm 1 GM/100 ML BAG IVPB SCH (10:05)
[2016-10-27] MEDS: Multivitamin Therapeutic Tab PO SCH (10:05)
[2016-10-27] MEDS: Divalproex 250 mg DR (BID formulation) PO SCH ×3 (10:05→17:07)
[2016-10-27] MEDS: POLYETHYLENE GLYCOL 3350 17 GM/Dose PACKET PO SCH (10:06)
--- NOTE | 2016-10-27 13:24 | CP.PCM.PN ---
"<JharmandoLillygabe - Last Filed: 10/27/16 13:21> Subjective - Date & Time of Evaluation Date of Evaluation: 10/27/16 Time of Evaluation: 13:21 - Subjective Subjective: Patient has been seen and examined at bedside. Patient states that she is still in pain but it has improved. Reports increased range of motion in her right shoulder. Expressed that she was ready to go home. Denies Chest Pain, SOB, Abdominal Pain, changes in urination or bowel habits. Objective - Vital Signs/Intake and Output Vital Signs (last 24 hours): Temp Pulse Resp BP Pulse Ox 97.7 F 53 L 20 136/83 95 10/27/16 07:30 10/27/16 10:22 10/27/16 07:30 10/27/16 10:22 10/27/16 07:30 Intake and Output: 10/27/16 10/27/16 06:59 18:59 Intake Total 180 Balance 180 - Medications Medications: Current Medications Albuterol Sulfate (Albuterol 0.083% Inhal Rika (2.5 Mg/3 Ml) Ud) 2.5 mg IH [id number] PRN PRN Reason: Shortness of Breath Diphenhydramine HCl (Benadryl) 25 mg IVP BID PRN PRN Reason: Itching / Pruritus Last Admin: 10/27/16 11:45 Dose: 25 mg Divalproex Sodium (Depakote Dr (*Bid*)) 250 mg PO TID [facility] PRN Reason: Protocol Last Admin: 10/27/16 10:05 Dose: 250 mg Ergocalciferol (Drisdol 50,000 Intl Units Cap) 1 cap PO Q7D [facility] Folic Acid (Folic Acid) 1 mg PO DAILY [facility] Last Admin: 10/27/16 10:05 Dose: 1 mg Hydromorphone HCl (Dilaudid) 0.5 mg IVP Q8 PRN PRN Reason: Pain, severe (8-10) Last Admin: 10/27/16 10:08 Dose: 0.5 mg Hydroxyurea (Hydrea) 500 mg PO DAILY [facility] Last Admin: 10/27/16 10:11 Dose: 500 mg Ceftriaxone Sodium (Rocephin 1 Gram Ivpb) 1 gm in 100 mls @ 100 mls/hr IVPB DAILY [facility] PRN Reason: Protocol Last Admin: 10/27/16 10:05 Dose: 100 mls/hr Sodium Chloride (Sodium Chloride 0.9%) 1,000 mls @ 125 mls/hr IV .Q8H [facility] Last Admin: 10/27/16 05:27 Dose: 125 mls/hr Mometasone Furoate (Asmanex Twisthaler 220 Mcg) 1 puff IH QPM [facility] Last Admin: 10/26/16 18:32 Dose: 1 puff Multi-Ingredient Ointment (Hydrophor Oint) 0 gm TOP Q6H [facility] Last Admin: 10/27/16 11:59 Dose: 1 applic Multivitamins (Thera Tab) 1 tab PO DAILY [facility] Last Admin: 10/27/16 10:05 Dose: 1 tab Ondansetron HCl (Zofran Inj) 4 mg IVP Q4H PRN PRN Reason: Nausea/Vomiting Last Admin: 10/27/16 04:35 Dose: 4 mg Pantoprazole Sodium (Protonix Susp) 40 mg PO 0600 [facility] Last Admin: 10/27/16 05:26 Dose: 40 mg Polyethylene Glycol (Miralax) 17 gm PO DAILY [facility] Last Admin: 10/27/16 10:06 Dose: 17 gm Quetiapine Fumarate (Seroquel) 200 mg PO HS [facility] PRN Reason: Protocol Last Admin: 10/26/16 21:45 Dose: 200 mg Quetiapine Fumarate (Seroquel) 50 mg PO QAM [facility] PRN Reason: Protocol Last Admin: 10/27/16 10:05 Dose: 50 mg Tramadol HCl (Ultram) 25 mg PO TID [facility] Last Admin: 10/27/16 10:06 Dose: 25 mg - Labs Labs: 10/27/16 05:48 10/27/16 05:48 PT 13.1 Seconds (9.9-11.8) H 10/25/16 06:20 INR 1.21 (0.93-1.08) H 10/25/16 06:20 APTT 33.6 Seconds (23.7-30.8) H 10/25/16 06:20 - Constitutional Appears: No Acute Distress - Head Exam Head Exam: ATRAUMATIC, NORMOCEPHALIC Additional comments: scab on lip improving. - Eye Exam Eye Exam: Normal appearance - ENT Exam ENT Exam: Mucous Membranes Moist - Respiratory Exam Respiratory Exam: Clear to Ausculation Bilateral, NORMAL BREATHING PATTERN. absent: Rales, Rhonchi, Wheezes - Cardiovascular Exam Cardiovascular Exam: +S1, +S2. absent: Tachycardia - GI/Abdominal Exam GI & Abdominal Exam: Soft, Normal Bowel Sounds. absent: Organomegaly - Extremities Exam Extremities Exam: Normal Capillary Refill, Normal Inspection - Neurological Exam Neurological Exam: Alert, Awake, Oriented x3 - Psychiatric Exam Psychiatric exam: Normal Affect, Normal Mood - Additional Findings Additional findings: Patient has generalized tenderness 2/2 to sickle cell crisis which has improved. Assessment and Plan - Assessment and Plan (Free Text) Assessment: This is a 35 yo female with past medical hx of cerebral palsy, bipolar disorder ,sickle cell disease, anxiety, asthma, CHF w/ EF of 35%, and elevated BP admitted for intractable generalized pain most prominent in right shoulder. Pain 2/2 to sickle cell disease. Plan: 1. Intractable Pain 2/2 sickle cell dx - Dilaudid 0.5 IVP Q4 for pain | Tramadol 25mg TID for pain. Will hold pain meds if patient is drowsy - Benadryl for pruritic 2/2 to dilaudid - normal Saline 100ml per hour 2. Anemia - 2/2 Sickle cell disease -Monitor H&G. 8.5 today | Monitor Retic count decreased to 17.78 today. -Transfuse 1 unit if Hgb less than 7 -Ferritin lvls > 1000 -Heme Onc Consult- Dr Palacios recs appreciated -Cont. Home Hyroxyurea -Cont. Home Vitamins 3. UTI - Cont. Ceftriaxone IV Day 4 -Leukocytosis resolved. -Preliminary Urine cultures showed Klebsiella Pneumonia -ID consulted, recs appreciated. 4. Thrombocytopenia (Stable) -likely 2/2 hydroxyurea. (122 today) 5. Bipolar disorder -Cont. Home Depakote & Seroquel 6. Asthma - PRN albuterol -Asmanex 7. CHF w/ EF of 35% -CXR read Patchy infiltrate in the rught upper lobe. Minimal infiltrate at right lung base GI/DVT Proph Protonix/SCDs Esteban Aly PGY1 Patient seen and discussed with Attending. <Jemma Pritchett - Last Filed: 10/27/16 14:37> Objective - Vital Signs/Intake and Output Vital Signs (last 24 hours): Temp Pulse Resp BP Pulse Ox 97.7 F 53 L 20 136/83 95 10/27/16 07:30 10/27/16 10:22 10/27/16 07:30 10/27/16 10:22 10/27/16 07:30 Intake and Output: 10/27/16 10/27/16 06:59 18:59 Intake Total 180 Balance 180 - Medications Medications: Current Medications Albuterol Sulfate (Albuterol 0.083% Inhal Rika (2.5 Mg/3 Ml) Ud) 2.5 mg IH [id number] PRN PRN Reason: Shortness of Breath Diphenhydramine HCl (Benadryl) 25 mg IVP BID PRN PRN Reason: Itching / Pruritus Last Admin: 10/27/16 11:45 Dose: 25 mg Divalproex Sodium (Depakote Dr (*Bid*)) 250 mg PO TID [facility] PRN Reason: Protocol Last Admin: 10/27/16 10:05 Dose: 250 mg Ergocalciferol (Drisdol 50,000 Intl Units Cap) 1 cap PO Q7D [facility] Folic Acid (Folic Acid) 1 mg PO DAILY [facility] Last Admin: 10/27/16 10:05 Dose: 1 mg Hydromorphone HCl (Dilaudid) 0.5 mg IVP Q8 PRN PRN Reason: Pain, severe (8-10) Last Admin: 10/27/16 10:08 Dose: 0.5 mg Hydroxyurea (Hydrea) 500 mg PO DAILY [facility] Last Admin: 10/27/16 10:11 Dose: 500 mg Ceftriaxone Sodium (Rocephin 1 Gram Ivpb) 1 gm in 100 mls @ 100 mls/hr IVPB DAILY [facility] PRN Reason: Protocol Last Admin: 10/27/16 10:05 Dose: 100 mls/hr Sodium Chloride (Sodium Chloride 0.9%) 1,000 mls @ 125 mls/hr IV .Q8H [facility] Last Admin: 10/27/16 05:27 Dose: 125 mls/hr Mometasone Furoate (Asmanex Twisthaler 220 Mcg) 1 puff IH QPM [facility] Last Admin: 10/26/16 18:32 Dose: 1 puff Multi-Ingredient Ointment (Hydrophor Oint) 0 gm TOP Q6H [facility] Last Admin: 10/27/16 11:59 Dose: 1 applic Multivitamins (Thera Tab) 1 tab PO DAILY [facility] Last Admin: 10/27/16 10:05 Dose: 1 tab Ondansetron HCl (Zofran Inj) 4 mg IVP Q4H PRN PRN Reason: Nausea/Vomiting Last Admin: 10/27/16 04:35 Dose: 4 mg Pantoprazole Sodium (Protonix Susp) 40 mg PO 0600 [facility] Last Admin: 10/27/16 05:26 Dose: 40 mg Polyethylene Glycol (Miralax) 17 gm PO DAILY [facility] Last Admin: 10/27/16 10:06 Dose: 17 gm Quetiapine Fumarate (Seroquel) 200 mg PO HS [facility] PRN Reason: Protocol Last Admin: 10/26/16 21:45 Dose: 200 mg Quetiapine Fumarate (Seroquel) 50 mg PO QAM [facility] PRN Reason: Protocol Last Admin: 10/27/16 10:05 Dose: 50 mg Tramadol HCl (Ultram) 25 mg PO TID [facility] Last Admin: 10/27/16 10:06 Dose: 25 mg - Labs Labs: 10/27/16 05:48 10/27/16 05:48 PT 13.1 Seconds (9.9-11.8) H 10/25/16 06:20 INR 1.21 (0.93-1.08) H 10/25/16 06:20 APTT 33.6 Seconds (23.7-30.8) H 10/25/16 06:20 Attending/Attestation - Attestation I have personally seen and examined this patient.: Yes I have fully participated in the care of the patient.: Yes I have reviewed all pertinent clinical information, including history, physical exam and plan: Yes Notes (Text): 10/27/16 14:35 attending note; Patient seen and examined with resident. Patient is a 35 year old female with history of sickle cell anemia, bipolar disorder, cerebral palsy, CHF with systolic dysfunction (EF~ 40%) who was admitted with sickle cell crisis. Continue oxygen, IV fluids, IV Dilaudid and folic acid. Hematology evaluation with Dr. Palacios appreciated. Reticulocyte count is 17.7 improving slowly. Hb is 8.5. s/p 1 unit PRBC transfusion yesterday. Mild leukocytosis is secondary to crisis. resolving. Klebsiella UTI. continue Rocephin. Bipolar disorder; continue home meds. possible discharge home within 24-48 hours if clinically stable. Needs close hematology upon discharge. 10/27/16 14:36 10/27/16 14:36"
[2016-10-27] MEDS: Enoxaparin 30 mg Syringe SC SCH (17:10)
[2016-10-27] MEDS: Mometasone 220 mcg/puff-14 puff Inh IH SCH (17:19)
[2016-10-28] MEDS: HYDROmorphone 0.5 mg/0.5 ml ISec IVP PRN ×3 (04:55→21:33)
[2016-10-28] MEDS: Pantoprazole 40 mg Susp UD PO SCH (05:45)
[2016-10-28] MEDS: Petrolatum-Mineral Oil Oint (100gm) TOP SCH ×3 (05:45→17:55)
[2016-10-28 06:25] LABS: HEMATOCRIT 24.4 % (36.0-48.0); MEAN CELL VOLUME 109.4 fl (80.0-105.0); MEAN CORPUSCULAR HEMOGLOBIN 38.1 pg (25.0-35.0); MEAN CORPUSCULAR HGB CONC 34.8 g/dl (31.0-37.0); MEAN PLATELET VOLUME 10.4 fl (7.0-11.0); PLATELET COUNT 90 10^3/uL (120.0-450.0)
[2016-10-28 06:33] LABS: RETIC% 14.02 % (0.5-1.5)
[2016-10-28 06:34] LABS: WHITE BLOOD COUNT 7.6 10^3/ul (4.5-11.0)
[2016-10-28 06:58] LABS: ALB/GLOB RATIO 0.7 (1.1-1.8); ALKALINE PHOSPHATASE 120 U/L (38-126); ALT/SGPT 53 U/L (7-56); AST/SGOT 94 U/L (14-36); BILIRUBIN,TOTAL 2.8 mg/dL (0.2-1.3); BLOOD UREA NITROGEN 2 mg/dL (7-21); CALCIUM 7.7 mg/dL (8.4-10.5); CARBON DIOXIDE 23 mmol/L (21-33); CHLORIDE 111 mmol/L (95-110); GFR AFRICAN-AMERICAN > 60; GLUCOSE,RANDOM 96 mg/dL (70-110); POTASSIUM 3.8 mmol/L (3.6-5.0); SODIUM 140 mmol/L (132-148); TOTAL PROTEIN 6.5 g/dL (5.8-8.3)
[2016-10-28] MEDS: Divalproex 250 mg DR (BID formulation) PO SCH ×3 (10:24→17:55)
[2016-10-28] MEDS: POLYETHYLENE GLYCOL 3350 17 GM/Dose PACKET PO SCH (10:25)
[2016-10-28] MEDS: Multivitamin Therapeutic Tab PO SCH (10:25)
[2016-10-28] MEDS: cefTRIAXone 1 gm 1 GM/100 ML BAG IVPB SCH (10:25)
[2016-10-28] MEDS: Enoxaparin 30 mg Syringe SC SCH (10:27)
[2016-10-28] MEDS ORDERED: Sodium Chloride 0.9% 1,000 ML IV SCH (10:30)
--- NOTE | 2016-10-28 15:38 | CP.PCM.PN ---
<Landon Melchor - Last Filed: 10/28/16 15:39> Subjective - Date & Time of Evaluation Date of Evaluation: 10/28/16 Time of Evaluation: 08:51 - Subjective Subjective: This patient was seen and examined at bedside in no acute distress. Per nursing there was no events overnight. She reports pain in her extremities bilaterally. The remainder of ROS was unable to obtain due to the pain medications making her drowsy. Objective - Vital Signs/Intake and Output Vital Signs (last 24 hours): Temp Pulse Resp BP Pulse Ox 98.3 F 101 H 20 115/85 100 10/28/16 07:30 10/28/16 07:30 10/28/16 07:30 10/28/16 07:30 10/28/16 07:30 Intake and Output: 10/28/16 10/28/16 06:59 18:59 Intake Total 240 240 Output Total 1 Balance 239 240 - Medications Medications: Current Medications Albuterol Sulfate (Albuterol 0.083% Inhal Rika (2.5 Mg/3 Ml) Ud) 2.5 mg IH [id number] PRN PRN Reason: Shortness of Breath Diphenhydramine HCl (Benadryl) 25 mg IVP BID PRN PRN Reason: Itching / Pruritus Last Admin: 10/27/16 11:45 Dose: 25 mg Divalproex Sodium (Depakote Dr (*Bid*)) 250 mg PO TID [facility] PRN Reason: Protocol Last Admin: 10/28/16 10:24 Dose: 250 mg Enoxaparin Sodium (Lovenox) 30 mg SC DAILY [facility] PRN Reason: Protocol Last Admin: 10/28/16 10:27 Dose: 30 mg Ergocalciferol (Drisdol 50,000 Intl Units Cap) 1 cap PO Q7D [facility] Folic Acid (Folic Acid) 1 mg PO DAILY [facility] Last Admin: 10/28/16 10:25 Dose: 1 mg Hydromorphone HCl (Dilaudid) 0.5 mg IVP Q6H PRN PRN Reason: Pain, severe (8-10) Hydroxyurea (Hydrea) 500 mg PO DAILY [facility] Last Admin: 10/28/16 10:28 Dose: 500 mg Ceftriaxone Sodium (Rocephin 1 Gram Ivpb) 1 gm in 100 mls @ 100 mls/hr IVPB DAILY [facility] PRN Reason: Protocol Last Admin: 10/28/16 10:25 Dose: 100 mls/hr Sodium Chloride (Sodium Chloride 0.9%) 1,000 mls @ 100 mls/hr IV .Q10H [facility] Last Admin: 10/28/16 13:03 Dose: 100 mls/hr Mometasone Furoate (Asmanex Twisthaler 220 Mcg) 1 puff IH QPM [facility] Last Admin: 10/27/16 17:19 Dose: 1 puff Multi-Ingredient Ointment (Hydrophor Oint) 0 gm TOP Q6H [facility] Last Admin: 10/28/16 13:10 Dose: 1 applic Multivitamins (Thera Tab) 1 tab PO DAILY [facility] Last Admin: 10/28/16 10:25 Dose: 1 tab Ondansetron HCl (Zofran Inj) 4 mg IVP Q4H PRN PRN Reason: Nausea/Vomiting Last Admin: 10/27/16 04:35 Dose: 4 mg Pantoprazole Sodium (Protonix Susp) 40 mg PO 0600 [facility] Last Admin: 10/28/16 05:45 Dose: 40 mg Polyethylene Glycol (Miralax) 17 gm PO DAILY [facility] Last Admin: 10/28/16 10:25 Dose: 17 gm Quetiapine Fumarate (Seroquel) 200 mg PO HS [facility] PRN Reason: Protocol Last Admin: 10/27/16 22:27 Dose: 200 mg Quetiapine Fumarate (Seroquel) 50 mg PO QAM [facility] PRN Reason: Protocol Last Admin: 10/28/16 10:30 Dose: Not Given - Labs Labs: 10/28/16 06:15 10/28/16 06:15 PT 13.1 Seconds (9.9-11.8) H 10/25/16 06:20 INR 1.21 (0.93-1.08) H 10/25/16 06:20 APTT 33.6 Seconds (23.7-30.8) H 10/25/16 06:20 - Head Exam Head Exam: ATRAUMATIC, NORMAL INSPECTION - Eye Exam Eye Exam: EOMI, Normal appearance, PERRL Pupil Exam: NORMAL ACCOMODATION, PERRL. absent: Irregular - ENT Exam ENT Exam: Mucous Membranes Moist - Neck Exam Neck Exam: Full ROM, Normal Inspection - Respiratory Exam Respiratory Exam: Clear to Ausculation Bilateral, NORMAL BREATHING PATTERN. absent: Respiratory Distress - Cardiovascular Exam Cardiovascular Exam: REGULAR RHYTHM, +S1, +S2 - GI/Abdominal Exam GI & Abdominal Exam: Soft, Normal Bowel Sounds - Extremities Exam Extremities Exam: Joint Swelling, Tenderness - Psychiatric Exam Psychiatric exam: Normal Affect - Skin Skin Exam: Dry, Intact Assessment and Plan - Assessment and Plan (Free Text) Assessment: Intractable pain secondary to sickle cell crisis. -Pain medications were d/c'ed this morning in anticipation of her discharge. Around Noon Tramadol and .5mg Dilaudid Q6 PRN were ordered after patient began complaining of pain that was 10/. -Continue Benadryl for the pruritic reactions secondary to Dilaudid -Continue IV fluids at 100cc/hr -Patient remains Tachycardic at 106 most likely due to her pain. Continue to monitor Anemia- Secondary to sickle cell disease -Monitor H/H. Today Hemoglobin was 8.5. Monitor for any drop below 7 and consider transfusion ( 1 Unit) -Heme consult read and appreciated -Retic count 14.02 (Down from 17.75). Continue with serial Retic draws. -Continue Hydroxyurea and home vitamins UTI -Continue Ceftriaxone Day 5. -No signs of leukocytosis for the second day. -Prelim urine cultures grew Klebsiella Pneumoniae -ID consult noted and appreciated. Thrombocytopenia -most likely due to her sickle cell disease -Platelet count today 90 (down from 122 10/27/16) CHF with EF of 35% -CXR reads "patchy infiltrate in right upper lobe. Minimal infiltrate at right lung base." -Continue to monitor vital signs. Bipolar Disorder -continue Depakote and Seroquel Asthma -PRN albuterol. GI/DVT ppx -continue Protonix and SCD's <Jemma Pritchett - Last Filed: 10/28/16 16:46> Objective - Vital Signs/Intake and Output Vital Signs (last 24 hours): Temp Pulse Resp BP Pulse Ox 98.9 F 107 H 20 116/70 94 L 10/28/16 16:01 10/28/16 16:01 10/28/16 16:01 10/28/16 16:01 10/28/16 16:01 Intake and Output: 10/28/16 10/28/16 06:59 18:59 Intake Total 240 240 Output Total 1 Balance 239 240 - Medications Medications: Current Medications Albuterol Sulfate (Albuterol 0.083% Inhal Rika (2.5 Mg/3 Ml) Ud) 2.5 mg IH [id number] PRN PRN Reason: Shortness of Breath Diphenhydramine HCl (Benadryl) 25 mg IVP BID PRN PRN Reason: Itching / Pruritus Last Admin: 10/27/16 11:45 Dose: 25 mg Divalproex Sodium (Depakote Dr (*Bid*)) 250 mg PO TID [facility] PRN Reason: Protocol Last Admin: 10/28/16 10:24 Dose: 250 mg Enoxaparin Sodium (Lovenox) 30 mg SC DAILY [facility] PRN Reason: Protocol Last Admin: 10/28/16 10:27 Dose: 30 mg Ergocalciferol (Drisdol 50,000 Intl Units Cap) 1 cap PO Q7D [facility] Folic Acid (Folic Acid) 1 mg PO DAILY [facility] Last Admin: 10/28/16 10:25 Dose: 1 mg Hydromorphone HCl (Dilaudid) 0.5 mg IVP Q6H PRN PRN Reason: Pain, severe (8-10) Last Admin: 10/28/16 15:53 Dose: 0.5 mg Hydroxyurea (Hydrea) 500 mg PO DAILY [facility] Last Admin: 10/28/16 10:28 Dose: 500 mg Ceftriaxone Sodium (Rocephin 1 Gram Ivpb) 1 gm in 100 mls @ 100 mls/hr IVPB DAILY [facility] PRN Reason: Protocol Last Admin: 10/28/16 10:25 Dose: 100 mls/hr Sodium Chloride (Sodium Chloride 0.9%) 1,000 mls @ 100 mls/hr IV .Q10H [facility] Last Admin: 10/28/16 13:03 Dose: 100 mls/hr Mometasone Furoate (Asmanex Twisthaler 220 Mcg) 1 puff IH QPM [facility] Last Admin: 10/27/16 17:19 Dose: 1 puff Multi-Ingredient Ointment (Hydrophor Oint) 0 gm TOP Q6H [facility] Last Admin: 10/28/16 13:10 Dose: 1 applic Multivitamins (Thera Tab) 1 tab PO DAILY [facility] Last Admin: 10/28/16 10:25 Dose: 1 tab Ondansetron HCl (Zofran Inj) 4 mg IVP Q4H PRN PRN Reason: Nausea/Vomiting Last Admin: 10/27/16 04:35 Dose: 4 mg Pantoprazole Sodium (Protonix Susp) 40 mg PO 0600 [facility] Last Admin: 10/28/16 05:45 Dose: 40 mg Polyethylene Glycol (Miralax) 17 gm PO DAILY [facility] Last Admin: 10/28/16 10:25 Dose: 17 gm Quetiapine Fumarate (Seroquel) 200 mg PO HS [facility] PRN Reason: Protocol Last Admin: 10/27/16 22:27 Dose: 200 mg Quetiapine Fumarate (Seroquel) 50 mg PO QAM [facility] PRN Reason: Protocol Last Admin: 10/28/16 10:30 Dose: Not Given - Labs Labs: 10/28/16 06:15 10/28/16 06:15 PT 13.1 Seconds (9.9-11.8) H 10/25/16 06:20 INR 1.21 (0.93-1.08) H 10/25/16 06:20 APTT 33.6 Seconds (23.7-30.8) H 10/25/16 06:20 Attending/Attestation - Attestation I have personally seen and examined this patient.: Yes I have fully participated in the care of the patient.: Yes I have reviewed all pertinent clinical information, including history, physical exam and plan: Yes Notes (Text): 10/28/16 16:44 attending note; Patient seen and examined with resident. Patient is a 35 year old female with history of sickle cell anemia, bipolar disorder, cerebral palsy, CHF with systolic dysfunction (EF~ 40%) who was admitted with sickle cell crisis. Continue oxygen, IV fluids, IV Dilaudid and folic acid. Hematology evaluation with Dr. Palacios appreciated. Reticulocyte count is 14. improving slowly. Hb is 8.5. s/p 1 unit PRBC transfusion. Still with significant musculoskeletal pain. Klebsiella UTI. continue Rocephin. Leukocytosis resolved. Bipolar disorder; continue home meds. possible discharge home tomorrow. Needs close hematology upon discharge. 10/28/16 16:45
[2016-10-28] MEDS: DiphenhydrAMINE 50 mg/ml Inj IVP PRN (22:38)
[2016-10-29] MEDS: HYDROmorphone 0.5 mg/0.5 ml ISec IVP PRN ×4 (03:30→22:42)
[2016-10-29] MEDS: Pantoprazole 40 mg Susp UD PO SCH (05:48)
[2016-10-29 06:52] LABS: BASO # 0.04 K/mm3 (0.0-2.0); BASO % 0.6 % (0.0-3.0); EOS # 0.1 (0.0-0.7); EOS % 1.7 % (1.5-5.0); GRAN # 3.14 (1.4-6.5); GRAN % 44.1 % (50.0-68.0); LYMPH # 2.5 (1.2-3.4); LYMPH % 35.2 % (22.0-35.0); MEAN CELL VOLUME 108.9 fl (80.0-105.0); MEAN CORPUSCULAR HEMOGLOBIN 38.1 pg (25.0-35.0); MONO # 1.3 (0.1-0.6); MONO % 18.4 % (1.0-6.0); PLATELET COUNT 68 10^3/uL (120.0-450.0); RED CELL DISTRIBUTION WIDTH 20.6 % (11.5-14.5); WHITE BLOOD COUNT 7.1 10^3/ul (4.5-11.0)
[2016-10-29 06:56] LABS: RETIC% 9.17 % (0.5-1.5)
[2016-10-29] MEDS: DiphenhydrAMINE 50 mg/ml Inj IVP PRN ×2 (09:33→22:46)
[2016-10-29] MEDS: Divalproex 250 mg DR (BID formulation) PO SCH ×2 (09:33→16:44)
[2016-10-29] MEDS: Multivitamin Therapeutic Tab PO SCH (09:33)
[2016-10-29] MEDS: Enoxaparin 30 mg Syringe SC SCH (09:33)
[2016-10-29] MEDS: cefTRIAXone 1 gm 1 GM/100 ML BAG IVPB SCH (09:34)
[2016-10-29] MEDS: POLYETHYLENE GLYCOL 3350 17 GM/Dose PACKET PO SCH (09:35)
[2016-10-29 10:01] LABS: BLOOD UREA NITROGEN 3 mg/dL (7-21); CALCIUM 7.6 mg/dL (8.4-10.5); CARBON DIOXIDE 26 mmol/L (21-33); CHLORIDE 109 mmol/L (98-107); GFR AFRICAN-AMERICAN > 60; GLUCOSE,RANDOM 82 mg/dL (70-110); POTASSIUM 3.8 mmol/L (3.6-5.0); SODIUM 139 mmol/L (132-148)
[2016-10-29] MEDS ORDERED: Benzocaine/Menthol (Cepacol) Lozenge MT PRN (12:03)
--- NOTE | 2016-10-29 12:21 | CP.PCM.PN ---
<SenthiltravisLillygabe - Last Filed: 10/29/16 13:08> Subjective - Date & Time of Evaluation Date of Evaluation: 10/29/16 Time of Evaluation: 12:20 - Subjective Subjective: Patient has been seen and examined. No events overnight. She reports CP and SOB upon coughing and denies CP and SOB at rest. Patient still has generalized pain; most prominent in the right shoulder that has improved. She denies any N/V/D, constipation, fever, chills. She states her dysuria has been improving over the past couple of days. Objective - Vital Signs/Intake and Output Vital Signs (last 24 hours): Temp Pulse Resp BP Pulse Ox 97.3 F L 105 H 20 103/66 94 L 10/29/16 07:30 10/29/16 07:30 10/29/16 07:30 10/29/16 07:30 10/29/16 07:30 Intake and Output: 10/29/16 10/29/16 06:59 18:59 Intake Total 360 Balance 360 - Medications Medications: Current Medications Albuterol Sulfate (Albuterol 0.083% Inhal Rika (2.5 Mg/3 Ml) Ud) 2.5 mg IH [id number] PRN PRN Reason: Shortness of Breath Benzocaine/Menthol (Cepacol Sore Throat) 1 rosanna MT Q2H PRN PRN Reason: Sore Throat Diphenhydramine HCl (Benadryl) 25 mg IVP BID PRN PRN Reason: Itching / Pruritus Last Admin: 10/29/16 09:33 Dose: 25 mg Divalproex Sodium (Depakote Dr (*Bid*)) 250 mg PO TID [facility] PRN Reason: Protocol Last Admin: 10/29/16 09:33 Dose: 250 mg Enoxaparin Sodium (Lovenox) 30 mg SC DAILY [facility] PRN Reason: Protocol Last Admin: 10/29/16 09:33 Dose: 30 mg Ergocalciferol (Drisdol 50,000 Intl Units Cap) 1 cap PO Q7D [facility] Folic Acid (Folic Acid) 1 mg PO DAILY [facility] Last Admin: 10/29/16 09:33 Dose: 1 mg Hydromorphone HCl (Dilaudid) 0.5 mg IVP Q6H PRN PRN Reason: Pain, severe (8-10) Last Admin: 10/29/16 09:32 Dose: 0.5 mg Hydroxyurea (Hydrea) 500 mg PO DAILY [facility] Last Admin: 10/29/16 11:05 Dose: Not Given Ceftriaxone Sodium (Rocephin 1 Gram Ivpb) 1 gm in 100 mls @ 100 mls/hr IVPB DAILY [facility] PRN Reason: Protocol Last Admin: 10/29/16 09:34 Dose: 100 mls/hr Sodium Chloride (Sodium Chloride 0.9%) 1,000 mls @ 100 mls/hr IV .Q10H [facility] Last Admin: 10/28/16 13:03 Dose: 100 mls/hr Mometasone Furoate (Asmanex Twisthaler 220 Mcg) 1 puff IH QPM [facility] Last Admin: 10/27/16 17:19 Dose: 1 puff Multi-Ingredient Ointment (Hydrophor Oint) 0 gm TOP Q6H [facility] Last Admin: 10/28/16 17:55 Dose: 1 applic Multivitamins (Thera Tab) 1 tab PO DAILY [facility] Last Admin: 10/29/16 09:33 Dose: 1 tab Ondansetron HCl (Zofran Inj) 4 mg IVP Q4H PRN PRN Reason: Nausea/Vomiting Last Admin: 10/27/16 04:35 Dose: 4 mg Pantoprazole Sodium (Protonix Susp) 40 mg PO 0600 [facility] Last Admin: 10/29/16 05:48 Dose: 40 mg Polyethylene Glycol (Miralax) 17 gm PO DAILY [facility] Last Admin: 10/29/16 09:35 Dose: 17 gm Quetiapine Fumarate (Seroquel) 200 mg PO HS [facility] PRN Reason: Protocol Last Admin: 10/28/16 21:33 Dose: 200 mg Quetiapine Fumarate (Seroquel) 50 mg PO QAM [facility] PRN Reason: Protocol Last Admin: 10/29/16 09:33 Dose: 50 mg - Labs Labs: 10/29/16 05:45 10/29/16 09:40 PT 13.1 Seconds (9.9-11.8) H 10/25/16 06:20 INR 1.21 (0.93-1.08) H 10/25/16 06:20 APTT 33.6 Seconds (23.7-30.8) H 10/25/16 06:20 - Constitutional Appears: No Acute Distress - Head Exam Head Exam: ATRAUMATIC, NORMOCEPHALIC - Eye Exam Eye Exam: EOMI, Normal appearance - Respiratory Exam Respiratory Exam: Clear to Ausculation Bilateral, NORMAL BREATHING PATTERN. absent: Rhonchi, Wheezes - Cardiovascular Exam Cardiovascular Exam: RRR, +S1, +S2. absent: JVD - GI/Abdominal Exam GI & Abdominal Exam: Soft, Tenderness, Normal Bowel Sounds - Extremities Exam Extremities Exam: Normal Capillary Refill. absent: Joint Swelling, Pedal Edema - Back Exam Additional comments: Right shoulde TTP; reduced ROM - Neurological Exam Neurological Exam: Alert, Awake, Oriented x3 - Psychiatric Exam Psychiatric exam: Depressed - Skin Skin Exam: Dry, Intact, Normal Color, Warm Assessment and Plan - Assessment and Plan (Free Text) Assessment: This is a 35 yo female with past medical hx of cerebral palsy, bipolar disorder ,sickle cell disease, anxiety, asthma, CHF w/ EF of 35%, and elevated BP admitted for intractable generalized pain most prominent in right shoulder. Pain 2/2 to sickle cell disease. Plan: 1. Intractable pain secondary to sickle cell crisis. -Continue Dilaudid 0.5 Q6 -Continue Benadryl for the pruritic reactions secondary to Dilaudid -Continue IV fluids at 100cc/hr -Monitor HR due to bouts of tachycardia -Will add PT today 2. Anemia- Secondary to sickle cell disease -Monitor H/H. Today Hemoglobin was 7.7. Monitor for any drop below 7 and consider transfusion ( 1 Unit) -Heme consult read and appreciated -Retic count 9.17 (Down from 14.02). Continue with serial Retic draws. 3. UTI -Continue Ceftriaxone Day 6. -No leukocytosis -Final urine cultures grew Klebsiella Pneumoniae -ID consult noted and appreciated. Thrombocytopenia -most likely due to her sickle cell disease -Platelet count today 68 Hydroxyurea held. CHF with EF of 35% -CXR (10/24/16) read "patchy infiltrate in right upper lobe. Minimal infiltrate at right lung base." Lung sounds clear. -Continue to monitor vital signs. Bipolar Disorder -continue Depakote and Seroquel -Psych Consult for depressive symptoms. Asthma -PRN albuterol. -Cont. Asmanex GI/DVT ppx -continue Protonix and SCD's- Dispo: Discussed discharge planning with case management. She will be going back to her care home upon discharge from [facility]. <Jemma Pritchett - Last Filed: 10/29/16 18:42> Objective - Vital Signs/Intake and Output Vital Signs (last 24 hours): Temp Pulse Resp BP Pulse Ox 98.4 F 103 H 20 103/73 98 10/29/16 16:22 10/29/16 16:22 10/29/16 16:22 10/29/16 16:22 10/29/16 16:22 Intake and Output: 10/29/16 10/29/16 06:59 18:59 Intake Total 360 360 Balance 360 360 - Medications Medications: Current Medications Albuterol Sulfate (Albuterol 0.083% Inhal Rika (2.5 Mg/3 Ml) Ud) 2.5 mg IH [id number] PRN PRN Reason: Shortness of Breath Benzocaine/Menthol (Cepacol Sore Throat) 1 rosanna MT Q2H PRN PRN Reason: Sore Throat Diphenhydramine HCl (Benadryl) 25 mg IVP BID PRN PRN Reason: Itching / Pruritus Last Admin: 10/29/16 09:33 Dose: 25 mg Divalproex Sodium (Depakote Dr (*Bid*)) 250 mg PO TID [facility] PRN Reason: Protocol Last Admin: 10/29/16 16:44 Dose: 250 mg Enoxaparin Sodium (Lovenox) 30 mg SC DAILY [facility] PRN Reason: Protocol Last Admin: 10/29/16 09:33 Dose: 30 mg Ergocalciferol (Drisdol 50,000 Intl Units Cap) 1 cap PO Q7D [facility] Folic Acid (Folic Acid) 1 mg PO DAILY [facility] Last Admin: 10/29/16 09:33 Dose: 1 mg Hydromorphone HCl (Dilaudid) 0.5 mg IVP Q6H PRN PRN Reason: Pain, severe (8-10) Last Admin: 10/29/16 16:43 Dose: 0.5 mg Hydroxyurea (Hydrea) 500 mg PO DAILY [facility] Last Admin: 10/29/16 11:05 Dose: Not Given Ceftriaxone Sodium (Rocephin 1 Gram Ivpb) 1 gm in 100 mls @ 100 mls/hr IVPB DAILY [facility] PRN Reason: Protocol Last Admin: 10/29/16 09:34 Dose: 100 mls/hr Sodium Chloride (Sodium Chloride 0.9%) 1,000 mls @ 75 mls/hr IV .[id number] [facility] Mometasone Furoate (Asmanex Twisthaler 220 Mcg) 1 puff IH QPM [facility] Last Admin: 10/29/16 16:45 Dose: 1 puff Multi-Ingredient Ointment (Hydrophor Oint) 0 gm TOP Q6H [facility] Last Admin: 10/29/16 16:44 Dose: 1 applic Multivitamins (Thera Tab) 1 tab PO DAILY [facility] Last Admin: 10/29/16 09:33 Dose: 1 tab Ondansetron HCl (Zofran Inj) 4 mg IVP Q4H PRN PRN Reason: Nausea/Vomiting Last Admin: 10/27/16 04:35 Dose: 4 mg Pantoprazole Sodium (Protonix Susp) 40 mg PO 0600 [facility] Last Admin: 10/29/16 05:48 Dose: 40 mg Polyethylene Glycol (Miralax) 17 gm PO DAILY [facility] Last Admin: 10/29/16 09:35 Dose: 17 gm Quetiapine Fumarate (Seroquel) 200 mg PO HS [facility] PRN Reason: Protocol Last Admin: 10/28/16 21:33 Dose: 200 mg Quetiapine Fumarate (Seroquel) 50 mg PO QAM [facility] PRN Reason: Protocol Last Admin: 10/29/16 09:33 Dose: 50 mg - Labs Labs: 10/29/16 05:45 10/29/16 09:40 PT 13.1 Seconds (9.9-11.8) H 10/25/16 06:20 INR 1.21 (0.93-1.08) H 10/25/16 06:20 APTT 33.6 Seconds (23.7-30.8) H 10/25/16 06:20 Attending/Attestation - Attestation I have personally seen and examined this patient.: Yes I have fully participated in the care of the patient.: Yes I have reviewed all pertinent clinical information, including history, physical exam and plan: Yes Notes (Text): 10/29/16 18:41 attending note; Patient seen and examined with resident. Patient is a 35 year old female with history of sickle cell anemia, bipolar disorder, cerebral palsy, CHF with systolic dysfunction (EF~ 40%) who was admitted with sickle cell crisis. Continue oxygen, IV fluids, IV Dilaudid and folic acid. Hematology evaluation with Dr. Palacios appreciated. Reticulocyte count is 9. improving slowly. Hb is 7.7. s/p 1 unit PRBC transfusion. Still with significant musculoskeletal pain. complaining of arm and leg stiffness. requesting physical therapy. Depression; Patient is requesting psychiatric evaluation. Case discussed with psychiatrist in detail. Klebsiella UTI. continue Rocephin. Leukocytosis resolved. Bipolar disorder; continue home meds. Needs close hematology upon discharge.
[2016-10-29] MEDS: Petrolatum-Mineral Oil Oint (100gm) TOP SCH ×2 (16:44→23:00)
[2016-10-29] MEDS: Mometasone 220 mcg/puff-14 puff Inh IH SCH ×2 (16:44→16:45)
--- NOTE | 2016-10-30 00:39 | CON ---
DATE: 10/29/2016 HISTORY OF PRESENT ILLNESS: The patient is a 36-year-old female with multiple medical issues including cerebral palsy, bipolar disorder. The patient also has history sickle cell anemia, anxiety, asthma, congestive heart failure with ejection fraction of 35%. The patient was admitted on the medical side for evaluation of worsening of right side body of the pain. The patient also was found to have urinary tract infection. Psych consult was called for evaluation of mood symptoms and possible depression. This marketing writer appears familiar with the patient from the multiple admissions to the medical side and this marketing writer providing services as a consultation. Most recently, the patient was discharged from the [facility], where the patient was admitted for suicidal ideation with a plan. The patient was seen and examined today. The patient presented to be withdrawn, flat affect, covered herself with a blanket. The patient is not willing to have interview. The patient said that she does not want to talk because she soiled off her bed. PHYSICAL EXAMINATION VITAL SIGNS: This marketing writer reviewed vital signs, seem to be stable. Pulse is 105, temperature 97.3, blood pressure 103/66, respirations 20 and oxygen saturation of 94. MEDICATIONS: Reviewed. Albuterol, Cepacol, Rocephin, Benadryl, Depakote twice a day, Lovenox, Drisdol, folic acid, Dilaudid, hydroxyurea, mometasone, multivitamins, Zofran, Protonix, and MiraLax. The patient also is on Seroquel 200 mg in the nighttime and 50 mg in the morning time and sodium chloride. LABORATORY DATA: Reviewed. Hematology: Hemoglobin 7.7 and hematocrit 22.0. Granulocytes are 3.14. Coagulation reviewed. Chemistry reviewed. AST and ALT are trending down. Urinalysis showed infection, leukocyte esterase trace, nitrites positive, blood large, and protein trace. Klebsiella pneumoniae in urine. MENTAL STATUS EXAMINATION: The patient was not willing to have interview and this marketing writer will come back tomorrow. Discussed with Dr. Pritchett. The patient was verbalizing that she is feeling depressed and missing her verbalizing thoughts of killing herself or others. IMPRESSION: Per history, the patient has bipolar disorder and cerebral palsy. The patient has multiple medical issues, congestive heart failure with ejection fraction of 35%; thrombocytopenia; urinary tract infection, is on ceftriaxone; anemia secondary to sickle cell disease; and intractable pain, most likely due to sickle cell crisis as well as asthma. PLAN: Continue current management. Medications were reviewed. Continue everything as it as. Depakote level will be checked tomorrow. This marketing writer will attempt to speak to the patient tomorrow. The patient seems to be at her baseline but in order have full assessment, this marketing writer needs to have to come back tomorrow and evaluate the patient if the patient is willing to. Should you have any questions, give me a call back. Fadia Odonnell MD
[2016-10-30] MEDS: Sodium Chloride 0.9% 1,000 ML IV SCH ×2 (02:00→14:44)
[2016-10-30] MEDS: Pantoprazole 40 mg Susp UD PO SCH (06:08)
[2016-10-30] MEDS: Petrolatum-Mineral Oil Oint (100gm) TOP SCH ×3 (06:08→16:48)
[2016-10-30] MEDS: HYDROmorphone 0.5 mg/0.5 ml ISec IVP PRN ×2 (06:09→12:14)
[2016-10-30 07:27] LABS: BLOOD UREA NITROGEN 4 mg/dL (7-21); CALCIUM 7.6 mg/dL (8.4-10.5); CARBON DIOXIDE 27 mmol/L (21-33); CHLORIDE 108 mmol/L (98-107); GFR AFRICAN-AMERICAN > 60; GLUCOSE,RANDOM 77 mg/dL (70-110); SODIUM 140 mmol/L (132-148)
[2016-10-30] MEDS: Divalproex 250 mg DR (BID formulation) PO SCH ×4 (10:41→17:57)
[2016-10-30] MEDS: Enoxaparin 30 mg Syringe SC SCH (10:41)
[2016-10-30] MEDS: Multivitamin Therapeutic Tab PO SCH (10:42)
[2016-10-30] MEDS: cefTRIAXone 1 gm 1 GM/100 ML BAG IVPB SCH (10:42)
[2016-10-30] MEDS: POLYETHYLENE GLYCOL 3350 17 GM/Dose PACKET PO SCH (10:43)
--- NOTE | 2016-10-30 12:47 | CP.PCM.PN ---
<Esteban Aly - Last Filed: 10/30/16 12:44> Subjective - Date & Time of Evaluation Date of Evaluation: 10/30/16 Time of Evaluation: 12:44 - Subjective Subjective: Patient has been seen and examined. No overnight events reported. Denies any SOB, CP, N/V/D or constipation. Still reports generalized pain (especially in shoulder). She states all her pain has improved. Asked to take off SCDs because it has been bothering her. Patient states she is having trouble using the Asmanex. She also wishes to sit up in a chair. Objective - Vital Signs/Intake and Output Vital Signs (last 24 hours): Temp Pulse Resp BP Pulse Ox 99.2 F 110 H 21 109/78 94 L 10/30/16 07:00 10/30/16 07:00 10/30/16 07:00 10/30/16 07:00 10/30/16 07:00 Intake and Output: 10/30/16 10/30/16 06:59 18:59 Intake Total 480 Balance 480 - Medications Medications: Current Medications Albuterol Sulfate (Albuterol 0.083% Inhal Rika (2.5 Mg/3 Ml) Ud) 2.5 mg IH [id number] PRN PRN Reason: Shortness of Breath Benzocaine/Menthol (Cepacol Sore Throat) 1 rosanna MT Q2H PRN PRN Reason: Sore Throat Last Admin: 10/30/16 10:53 Dose: 1 rosanna Diphenhydramine HCl (Benadryl) 25 mg IVP BID PRN PRN Reason: Itching / Pruritus Last Admin: 10/29/16 22:46 Dose: 25 mg Divalproex Sodium (Depakote Dr (*Bid*)) 250 mg PO TID ARLETTE PRN Reason: Protocol Last Admin: 10/29/16 16:44 Dose: 250 mg Enoxaparin Sodium (Lovenox) 30 mg SC DAILY ARLETTE PRN Reason: Protocol Last Admin: 10/30/16 10:41 Dose: 30 mg Ergocalciferol (Drisdol 50,000 Intl Units Cap) 1 cap PO Q7D [facility] Folic Acid (Folic Acid) 1 mg PO DAILY [facility] Last Admin: 10/30/16 10:42 Dose: 1 mg Hydromorphone HCl (Dilaudid) 0.5 mg IVP Q6H PRN PRN Reason: Pain, severe (8-10) Last Admin: 10/30/16 12:14 Dose: 0.5 mg Hydroxyurea (Hydrea) 500 mg PO DAILY [facility] Last Admin: 10/29/16 11:05 Dose: Not Given Ceftriaxone Sodium (Rocephin 1 Gram Ivpb) 1 gm in 100 mls @ 100 mls/hr IVPB DAILY ARLETTE PRN Reason: Protocol Last Admin: 10/30/16 10:42 Dose: 100 mls/hr Sodium Chloride (Sodium Chloride 0.9%) 1,000 mls @ 75 mls/hr IV .[id number] [facility] Last Admin: 10/30/16 02:00 Dose: 75 mls/hr Mometasone Furoate (Asmanex Twisthaler 220 Mcg) 1 puff IH QPM [facility] Last Admin: 10/29/16 16:45 Dose: 1 puff Multi-Ingredient Ointment (Hydrophor Oint) 0 gm TOP Q6H [facility] Last Admin: 10/30/16 06:08 Dose: 1 applic Multivitamins (Thera Tab) 1 tab PO DAILY [facility] Last Admin: 10/30/16 10:42 Dose: 1 tab Ondansetron HCl (Zofran Inj) 4 mg IVP Q4H PRN PRN Reason: Nausea/Vomiting Last Admin: 10/27/16 04:35 Dose: 4 mg Pantoprazole Sodium (Protonix Susp) 40 mg PO 0600 [facility] Last Admin: 10/30/16 06:08 Dose: 40 mg Polyethylene Glycol (Miralax) 17 gm PO DAILY [facility] Last Admin: 10/30/16 10:43 Dose: Not Given Quetiapine Fumarate (Seroquel) 200 mg PO HS [facility] PRN Reason: Protocol Last Admin: 10/29/16 21:33 Dose: 200 mg Quetiapine Fumarate (Seroquel) 50 mg PO QAM [facility] PRN Reason: Protocol Last Admin: 10/30/16 10:41 Dose: 50 mg - Labs Labs: 10/29/16 05:45 10/30/16 07:00 PT 13.1 Seconds (9.9-11.8) H 10/25/16 06:20 INR 1.21 (0.93-1.08) H 10/25/16 06:20 APTT 33.6 Seconds (23.7-30.8) H 10/25/16 06:20 - Constitutional Appears: Well, Non-toxic, No Acute Distress - Head Exam Head Exam: ATRAUMATIC, NORMAL INSPECTION, NORMOCEPHALIC - Eye Exam Eye Exam: EOMI, Normal appearance - ENT Exam ENT Exam: Mucous Membranes Moist - Respiratory Exam Respiratory Exam: Clear to Ausculation Bilateral, NORMAL BREATHING PATTERN. absent: Rales, Rhonchi - Cardiovascular Exam Cardiovascular Exam: RRR, +S1, +S2 - GI/Abdominal Exam GI & Abdominal Exam: Soft. absent: Tenderness - Extremities Exam Extremities Exam: Normal Capillary Refill. absent: Pedal Edema Additional comments: Upper and Lower Ext. B/L TTP. Decreased ROM on right shoulder. - Neurological Exam Neurological Exam: Alert, Awake, Oriented x3 - Psychiatric Exam Psychiatric exam: Normal Affect, Normal Mood Assessment and Plan - Assessment and Plan (Free Text) Assessment: This is a 35 yo female with past medical hx of cerebral palsy, bipolar disorder ,sickle cell disease, anxiety, asthma, CHF w/ EF of 35%, and elevated BP admitted for intractable generalized pain most prominent in right shoulder. Pain 2/2 to sickle cell disease. Plan: 1. Intractable pain secondary to sickle cell crisis. -Continue Dilaudid 0.5 Q6 -Continue Benadryl for the pruritic reactions secondary to Dilaudid -Continue IV fluids at 100cc/hr -Monitor HR due to bouts of tachycardia -PT eval/treat for decompensation 2. Anemia- Secondary to sickle cell disease -Monitor H/H. Hemoglobin was 7.7 yesterday. Monitor for any drop below 7 and consider transfusion ( 1 Unit) -Heme consult read and appreciated -Retic trending down 3. UTI -Continue Ceftriaxone Day 7. -No leukocytosis -Final urine cultures grew Klebsiella Pneumoniae -ID consult noted and appreciated. Thrombocytopenia -most likely due to her sickle cell disease -Platelet count today 68 yesterday Hydroxyurea held. Will cont. if plts > 80 CHF with EF of 35% -CXR (10/24/16) read "patchy infiltrate in right upper lobe. Minimal infiltrate at right lung base." Lung sounds clear. -Continue to monitor vital signs. Bipolar Disorder -continue Depakote and Seroquel -Psych Consulted recs appreciated Asthma -PRN albuterol. -Cont. Asmanex. Asmanex use education by nurse von. GI/DVT ppx -continue Protonix and SCD's- Dispo: Will discuss discharge planning with case management again. Patient is deconditioned. We will wait for PT recommendations for DC planning. <ShreyasJemma - Last Filed: 10/30/16 17:27> Objective - Vital Signs/Intake and Output Vital Signs (last 24 hours): Temp Pulse Resp BP Pulse Ox 98.9 F 109 H 18 109/82 98 10/30/16 16:40 10/30/16 16:40 10/30/16 16:40 10/30/16 16:40 10/30/16 16:40 Intake and Output: 10/30/16 10/30/16 06:59 18:59 Intake Total 480 180 Balance 480 180 - Medications Medications: Current Medications Albuterol Sulfate (Albuterol 0.083% Inhal Rika (2.5 Mg/3 Ml) Ud) 2.5 mg IH [id number] PRN PRN Reason: Shortness of Breath Benzocaine/Menthol (Cepacol Sore Throat) 1 rosanna MT Q2H PRN PRN Reason: Sore Throat Last Admin: 10/30/16 10:53 Dose: 1 rosanna Diphenhydramine HCl (Benadryl) 25 mg IVP BID PRN PRN Reason: Itching / Pruritus Last Admin: 10/30/16 13:11 Dose: 25 mg Divalproex Sodium (Depakote Dr (*Bid*)) 250 mg PO TID ARLETTE PRN Reason: Protocol Last Admin: 10/30/16 17:14 Dose: 250 mg Enoxaparin Sodium (Lovenox) 30 mg SC DAILY ARLETTE PRN Reason: Protocol Last Admin: 10/30/16 10:41 Dose: 30 mg Ergocalciferol (Drisdol 50,000 Intl Units Cap) 1 cap PO Q7D [facility] Last Admin: 10/30/16 17:14 Dose: 1 cap Folic Acid (Folic Acid) 1 mg PO DAILY [facility] Last Admin: 10/30/16 10:42 Dose: 1 mg Hydroxyurea (Hydrea) 500 mg PO DAILY [facility] Last Admin: 10/29/16 11:05 Dose: Not Given Ceftriaxone Sodium (Rocephin 1 Gram Ivpb) 1 gm in 100 mls @ 100 mls/hr IVPB DAILY [facility] PRN Reason: Protocol Last Admin: 10/30/16 10:42 Dose: 100 mls/hr Sodium Chloride (Sodium Chloride 0.9%) 1,000 mls @ 75 mls/hr IV .[id number] [facility] Last Admin: 10/30/16 14:44 Dose: Not Given Mometasone Furoate (Asmanex Twisthaler 220 Mcg) 1 puff IH QPM [facility] Last Admin: 10/29/16 16:45 Dose: 1 puff Multi-Ingredient Ointment (Hydrophor Oint) 0 gm TOP Q6H [facility] Last Admin: 10/30/16 16:48 Dose: Not Given Multivitamins (Thera Tab) 1 tab PO DAILY [facility] Last Admin: 10/30/16 10:42 Dose: 1 tab Ondansetron HCl (Zofran Inj) 4 mg IVP Q4H PRN PRN Reason: Nausea/Vomiting Last Admin: 10/27/16 04:35 Dose: 4 mg Pantoprazole Sodium (Protonix Susp) 40 mg PO 0600 [facility] Last Admin: 10/30/16 06:08 Dose: 40 mg Polyethylene Glycol (Miralax) 17 gm PO DAILY [facility] Last Admin: 10/30/16 10:43 Dose: Not Given Quetiapine Fumarate (Seroquel) 200 mg PO HS [facility] PRN Reason: Protocol Last Admin: 10/29/16 21:33 Dose: 200 mg Quetiapine Fumarate (Seroquel) 50 mg PO QAM [facility] PRN Reason: Protocol Last Admin: 10/30/16 10:41 Dose: 50 mg - Labs Labs: 10/29/16 05:45 10/30/16 07:00 PT 13.1 Seconds (9.9-11.8) H 10/25/16 06:20 INR 1.21 (0.93-1.08) H 10/25/16 06:20 APTT 33.6 Seconds (23.7-30.8) H 10/25/16 06:20 Attending/Attestation - Attestation I have personally seen and examined this patient.: Yes I have fully participated in the care of the patient.: Yes I have reviewed all pertinent clinical information, including history, physical exam and plan: Yes Notes (Text): 10/30/16 17:27 attending note; Patient seen and examined with resident. Patient is a 35 year old female with history of sickle cell anemia, bipolar disorder, cerebral palsy, CHF with systolic dysfunction (EF~ 40%) who was admitted with sickle cell crisis. Continue oxygen, IV fluids, IV Dilaudid and folic acid. Hematology evaluation with Dr. Palacios appreciated. Reticulocyte count is 9. improving slowly. Hb is 7.7. s/p 1 unit PRBC transfusion. Still with significant musculoskeletal pain. complaining of arm and leg stiffness. requesting physical therapy. Depression; Patient is requesting psychiatric evaluation. Case discussed with psychiatrist in detail. Klebsiella UTI. continue Rocephin. Leukocytosis resolved. Bipolar disorder; continue home meds. Needs close hematology upon discharge.
[2016-10-30] MEDS: DiphenhydrAMINE 50 mg/ml Inj IVP PRN (13:11)
--- NOTE | 2016-10-30 15:57 | CP.PCM.DIS ---
<Esteban Aly - Last Filed: 10/30/16 15:54> Provider - Provider Date of Admission: 10/24/16 13:37 Attending physician: Jemma Pritchett MD Consults: [place]- Dr. Palacios Psych - Dr. Odonnell Time Spent in preparation of Discharge (in minutes): 40 Diagnosis - Discharge Diagnosis (1) Sickle cell pain crisis Status: Chronic (2) UTI (lower urinary tract infection) Status: Acute Hospital Course - Lab Results Lab Results: Micro Results 10/25/16 19:00 Urine Urine Culture - Final No Growth (<1,000 CFU/ML) Most Recent Lab Values WBC 7.1 10^3/ul (4.5-11.0) 10/29/16 05:45 RBC 2.02 10^6/uL (3.5-6.1) L 10/29/16 05:45 Hgb 7.7 g/dL (12.0-16.0) L 10/29/16 05:45 Hct 22.0 % (36.0-48.0) L 10/29/16 05:45 MCV 108.9 fl (80.0-105.0) H 10/29/16 05:45 MCH 38.1 pg (25.0-35.0) H 10/29/16 05:45 MCHC 35.0 g/dl (31.0-37.0) 10/29/16 05:45 RDW 20.6 % (11.5-14.5) H 10/29/16 05:45 Plt Count 68 10^3/uL (120.0-450.0) L 10/29/16 05:45 MPV 11.0 fl (7.0-11.0) 10/29/16 05:45 Gran % 44.1 % (50.0-68.0) L 10/29/16 05:45 Lymph % (Auto) 35.2 % (22.0-35.0) H 10/29/16 05:45 [place] % (Auto) 18.4 % (1.0-6.0) H 10/29/16 05:45 Eos % (Auto) 1.7 % (1.5-5.0) 10/29/16 05:45 Baso % (Auto) 0.6 % (0.0-3.0) 10/29/16 05:45 Gran # 3.14 (1.4-6.5) 10/29/16 05:45 Lymph # 2.5 (1.2-3.4) 10/29/16 05:45 [place] # 1.3 (0.1-0.6) H 10/29/16 05:45 Eos # 0.1 (0.0-0.7) 10/29/16 05:45 Baso # 0.04 K/mm3 (0.0-2.0) 10/29/16 05:45 Corrected WBC (Man) 10.5 K/mm3 (4.5-11.0) 10/24/16 09:01 Neutrophils % (Manual) 58 % (50.0-70.0) 10/24/16 09:01 Lymphocytes % (Manual) 29 % (22.0-35.0) 10/24/16 09:01 Atypical Lymphs % 2 % (0.0-0.0) H 10/23/16 13:30 Monocytes % (Manual) 8 % (1.0-6.0) H 10/24/16 09:01 Eosinophils % (Manual) 3 % (0.0-3.0) 10/24/16 09:01 Myelocytes % 2 % 10/24/16 09:01 Nucleated RBC % 47 % 10/24/16 09:01 Toxic Granulation Slight 10/24/16 09:01 Platelet Evaluation Low (NORMAL) 10/24/16 09:01 Large Platelets Present 10/24/16 09:01 Polychromasia 1+ 10/24/16 09:01 Hypochromasia 2+ 10/24/16 09:01 Poikilocytosis (manual 1+ 10/24/16 09:01 Anisocytosis (manual) 3+ 10/24/16 09:01 Macrocytosis (manual) 3+ 10/24/16 09:01 Spherocytes Slight 10/23/16 13:30 Sickle Cells 3+ 10/24/16 09:01 Target Cells Slight 10/24/16 09:01 Tear Drop Cells 1+ 10/24/16 09:01 Ovalocytes 1+ 10/24/16 09:01 Aleena Cells Slight 10/24/16 09:01 Retic Count 9.17 % (0.5-1.5) H* 10/29/16 05:45 Haptoglobin <15 mg/dL (43-212) L 10/24/16 07:00 PT 13.1 Seconds (9.9-11.8) H 10/25/16 06:20 INR 1.21 (0.93-1.08) H 10/25/16 06:20 APTT 33.6 Seconds (23.7-30.8) H 10/25/16 06:20 Sodium 140 mmol/L (132-148) 10/30/16 07:00 Potassium 4.0 mmol/L (3.6-5.0) 10/30/16 07:00 Chloride 108 mmol/L (98-107) H 10/30/16 07:00 Carbon Dioxide 27 mmol/L (21-33) 10/30/16 07:00 Anion Gap 9 (10-20) L 10/30/16 07:00 BUN 4 mg/dL (7-21) L 10/30/16 07:00 Creatinine 0.4 mg/dL (0.5-1.4) L 10/30/16 07:00 Est GFR ( Amer) > 60 10/30/16 07:00 Est GFR (Non-Af Amer) > 60 10/30/16 07:00 Random Glucose 77 mg/dL (70-110) 10/30/16 07:00 Calcium 7.6 mg/dL (8.4-10.5) L 10/30/16 07:00 Iron 166 ug/dL (45-180) 10/25/16 06:20 TIBC 184 ug/dL (265-497) L 10/25/16 06:20 % Saturation 90 % (20-55) H 10/25/16 06:20 Ferritin > 76728.0 ng/mL 10/25/16 06:20 Total Bilirubin 2.8 mg/dL (0.2-1.3) H 10/28/16 06:15 AST 94 U/L (14-36) H 10/28/16 06:15 ALT 53 U/L (7-56) 10/28/16 06:15 Alkaline Phosphatase 120 U/L (38-126) 10/28/16 06:15 Total Protein 6.5 g/dL (5.8-8.3) 10/28/16 06:15 Albumin 2.6 g/dL (3.0-4.8) L 10/28/16 06:15 Globulin 3.9 gm/dL 10/28/16 06:15 Albumin/Globulin Ratio 0.7 (1.1-1.8) L 10/28/16 06:15 Lipase 28 U/L (23-300) 10/23/16 13:30 Urine Color Abigail (YELLOW) 10/23/16 15:10 Urine Appearance Clear (CLEAR) 10/23/16 15:10 Urine pH 6.0 (4.7-8.0) 10/23/16 15:10 Ur Specific Tar[place]y 1.020 (1.005-1.035) 10/23/16 15:10 Urine Protein Trace mg/dL (<30 mg/dL) H 10/23/16 15:10 Urine Glucose (UA) Negative mg/dL (NEGATIVE) 10/23/16 15:10 Urine Ketones Negative mg/dL (NEGATIVE) 10/23/16 15:10 Urine Blood Large (NEGATIVE) H 10/23/16 15:10 Urine Nitrate Positive (NEGATIVE) H 10/23/16 15:10 Urine Bilirubin Small (NEGATIVE) H 10/23/16 15:10 Urine Urobilinogen 2.0 E.U./dL (<1 E.U./dL) H 10/23/16 15:10 Ur Leukocyte Esterase Trace Luz/uL (NEGATIVE) H 10/23/16 15:10 Urine RBC 5 - 10 /hpf (0-2) 10/23/16 15:10 Urine WBC 1 - 3 /hpf (0-6) 10/23/16 15:10 Ur Epithelial Cells 6 - 8 /hpf (0-5) 10/23/16 15:10 Amorphous Sediment Trace 10/23/16 15:10 Urine Other Mucus 10/23/16 15:10 Blood Type B POSITIVE 10/23/16 13:30 Antibody Screen Negative 10/23/16 13:30 Crossmatch See Detail 10/23/16 13:30 BBK History Checked Patient has bt 10/23/16 13:30 - Hospital Course Hospital Course: This patient is a 36 year old female with a significant PMHx of sickle cell anemia, BiPolar DO, CHF, Asthma, and cerebral palsy who was admitted to [facility] for generalized inretractable pain 2/2 sickle cell crisis. Patient had a reticulocyte count of 19.69 on admission. Heme was consulted on the case (Dr. Palacios) Patient was treated with fluid hydration and analgesics (Dilaudid and Tramadol). Reticulocyte reduced to <10 which is about her baseline. Hemoglobin dropped below 8 and she was transfused 1 unit of Luekoreduced PRBCs. Hospital course was also complicated by Klebsiella Pneumonieae UTI which was treated with Rocephin. Psychiatry was also consulted on the case due to patient Patient will be pescribed Tramadol 50 TID for pain control. [facility], and she is to follow up with Dr. Palacios in 3 days. Patient is agreeable with plan and medications. CXR- Patchy infiltrate in the right upper lobe. Minimal infiltrate at the right lung base. EKG Sinus Tach/Non-specific T wave and ST abnormality. Patient seen and discussed with Attending. Esteban Aly PGY1 - Date & Time of H&P Date of H&P: 10/30/16 Time of H&P: 15:56 Discharge Exam - Head Exam Head Exam: ATRAUMATIC, NORMAL INSPECTION, NORMOCEPHALIC - Additional Findings Additional findings: Please see progress note on today's date for physical exam. Discharge Plan - Discharge Medications Prescriptions: traMADol [Ultram] 50 mg PO TID #12 tab - Follow Up Plan Condition: FAIR Disposition: HOME/ ROUTINE Instructions: Urinary Tract Infection in Women (DC), Urinary Tract Infection in Men (DC), Sickle Cell Anemia (DC), Myelodysplastic Syndromes (DC), Myelodysplastic Syndromes (GEN), Acute Abdominal Pain (DC), Acute Abdominal Pain (GEN), Dysuria (GEN) Additional Instructions: 1. follow up with Dr. palacios in 3 days. <Jemma Pritchett - Last Filed: 10/30/16 17:31> Provider - Provider Date of Admission: 10/24/16 13:37 Attending physician: Jemma Pritchett MD Hospital Course - Lab Results Lab Results: Micro Results 10/25/16 19:00 Urine Urine Culture - Final No Growth (<1,000 CFU/ML) Most Recent Lab Values WBC 7.1 10^3/ul (4.5-11.0) 10/29/16 05:45 RBC 2.02 10^6/uL (3.5-6.1) L 10/29/16 05:45 Hgb 7.7 g/dL (12.0-16.0) L 10/29/16 05:45 Hct 22.0 % (36.0-48.0) L 10/29/16 05:45 MCV 108.9 fl (80.0-105.0) H 10/29/16 05:45 MCH 38.1 pg (25.0-35.0) H 10/29/16 05:45 MCHC 35.0 g/dl (31.0-37.0) 10/29/16 05:45 RDW 20.6 % (11.5-14.5) H 10/29/16 05:45 Plt Count 68 10^3/uL (120.0-450.0) L 10/29/16 05:45 MPV 11.0 fl (7.0-11.0) 10/29/16 05:45 Gran % 44.1 % (50.0-68.0) L 10/29/16 05:45 Lymph % (Auto) 35.2 % (22.0-35.0) H 10/29/16 05:45 [place] % (Auto) 18.4 % (1.0-6.0) H 10/29/16 05:45 Eos % (Auto) 1.7 % (1.5-5.0) 10/29/16 05:45 Baso % (Auto) 0.6 % (0.0-3.0) 10/29/16 05:45 Gran # 3.14 (1.4-6.5) 10/29/16 05:45 Lymph # 2.5 (1.2-3.4) 10/29/16 05:45 [place] # 1.3 (0.1-0.6) H 10/29/16 05:45 Eos # 0.1 (0.0-0.7) 10/29/16 05:45 Baso # 0.04 K/mm3 (0.0-2.0) 10/29/16 05:45 Corrected WBC (Man) 10.5 K/mm3 (4.5-11.0) 10/24/16 09:01 Neutrophils % (Manual) 58 % (50.0-70.0) 10/24/16 09:01 Lymphocytes % (Manual) 29 % (22.0-35.0) 10/24/16 09:01 Atypical Lymphs % 2 % (0.0-0.0) H 10/23/16 13:30 Monocytes % (Manual) 8 % (1.0-6.0) H 10/24/16 09:01 Eosinophils % (Manual) 3 % (0.0-3.0) 10/24/16 09:01 Myelocytes % 2 % 10/24/16 09:01 Nucleated RBC % 47 % 10/24/16 09:01 Toxic Granulation Slight 10/24/16 09:01 Platelet Evaluation Low (NORMAL) 10/24/16 09:01 Large Platelets Present 10/24/16 09:01 Polychromasia 1+ 10/24/16 09:01 Hypochromasia 2+ 10/24/16 09:01 Poikilocytosis (manual 1+ 10/24/16 09:01 Anisocytosis (manual) 3+ 10/24/16 09:01 Macrocytosis (manual) 3+ 10/24/16 09:01 Spherocytes Slight 10/23/16 13:30 Sickle Cells 3+ 10/24/16 09:01 Target Cells Slight 10/24/16 09:01 Tear Drop Cells 1+ 10/24/16 09:01 Ovalocytes 1+ 10/24/16 09:01 [place] Cells Slight 10/24/16 09:01 Retic Count 9.17 % (0.5-1.5) H* 10/29/16 05:45 Haptoglobin <15 mg/dL (43-212) L 10/24/16 07:00 PT 13.1 Seconds (9.9-11.8) H 10/25/16 06:20 INR 1.21 (0.93-1.08) H 10/25/16 06:20 APTT 33.6 Seconds (23.7-30.8) H 10/25/16 06:20 Sodium 140 mmol/L (132-148) 10/30/16 07:00 Potassium 4.0 mmol/L (3.6-5.0) 10/30/16 07:00 Chloride 108 mmol/L (98-107) H 10/30/16 07:00 Carbon Dioxide 27 mmol/L (21-33) 10/30/16 07:00 Anion Gap 9 (10-20) L 10/30/16 07:00 BUN 4 mg/dL (7-21) L 10/30/16 07:00 Creatinine 0.4 mg/dL (0.5-1.4) L 10/30/16 07:00 Est GFR ( Amer) > 60 10/30/16 07:00 Est GFR (Non-Af Amer) > 60 10/30/16 07:00 Random Glucose 77 mg/dL (70-110) 10/30/16 07:00 Calcium 7.6 mg/dL (8.4-10.5) L 10/30/16 07:00 Iron 166 ug/dL (45-180) 10/25/16 06:20 TIBC 184 ug/dL (265-497) L 10/25/16 06:20 % Saturation 90 % (20-55) H 10/25/16 06:20 Ferritin > 77952.0 ng/mL 10/25/16 06:20 Total Bilirubin 2.8 mg/dL (0.2-1.3) H 10/28/16 06:15 AST 94 U/L (14-36) H 10/28/16 06:15 ALT 53 U/L (7-56) 10/28/16 06:15 Alkaline Phosphatase 120 U/L (38-126) 10/28/16 06:15 Total Protein 6.5 g/dL (5.8-8.3) 10/28/16 06:15 Albumin 2.6 g/dL (3.0-4.8) L 10/28/16 06:15 Globulin 3.9 gm/dL 10/28/16 06:15 Albumin/Globulin Ratio 0.7 (1.1-1.8) L 10/28/16 06:15 Lipase 28 U/L (23-300) 10/23/16 13:30 Urine Color Abigail (YELLOW) 10/23/16 15:10 Urine Appearance Clear (CLEAR) 10/23/16 15:10 Urine pH 6.0 (4.7-8.0) 10/23/16 15:10 Ur Specific [place] 1.020 (1.005-1.035) 10/23/16 15:10 Urine Protein Trace mg/dL (<30 mg/dL) H 10/23/16 15:10 Urine Glucose (UA) Negative mg/dL (NEGATIVE) 10/23/16 15:10 Urine Ketones Negative mg/dL (NEGATIVE) 10/23/16 15:10 Urine Blood Large (NEGATIVE) H 10/23/16 15:10 Urine Nitrate Positive (NEGATIVE) H 10/23/16 15:10 Urine Bilirubin Small (NEGATIVE) H 10/23/16 15:10 Urine Urobilinogen 2.0 E.U./dL (<1 E.U./dL) H 10/23/16 15:10 Ur Leukocyte Esterase Trace Luz/uL (NEGATIVE) H 10/23/16 15:10 Urine RBC 5 - 10 /hpf (0-2) 10/23/16 15:10 Urine WBC 1 - 3 /hpf (0-6) 10/23/16 15:10 Ur Epithelial Cells 6 - 8 /hpf (0-5) 10/23/16 15:10 Amorphous Sediment Trace 10/23/16 15:10 Urine Other Mucus 10/23/16 15:10 Blood Type B POSITIVE 10/23/16 13:30 Antibody Screen Negative 10/23/16 13:30 Crossmatch See Detail 10/23/16 13:30 BBK History Checked Patient has bt 10/23/16 13:30 Attending/Attestation - Attestation I have personally seen and examined this patient.: Yes I have fully participated in the care of the patient.: Yes I have reviewed all pertinent clinical information, including history, physical exam and plan: Yes Notes (Text): 10/30/16 17:28 Attending note; Patient seen and examined with resident. Patient is a 35 year old female with history of sickle cell anemia, bipolar disorder, cerebral palsy, CHF with systolic dysfunction (EF~ 40%) who was admitted with sickle cell crisis. Treated with oxygen, IV fluids, IV Dilaudid and folic acid. Hematology evaluation with Dr. Palacios appreciated. Reticulocyte count is 9. improving slowly. Hb is 7.7. s/p 1 unit PRBC transfusion. Pain is improving. complaining of arm and leg stiffness.PT evaluation Appreciated. Home physical therapy prescription given. Case discussed with director of casework department and home health care social worker in detail. Depression;psych evaluation appreciated.Case discussed with psychiatrist in detail. Klebsiella UTI. Treated with IV Rocephin. Leukocytosis resolved. Bipolar disorder; continue home meds. Needs close hematology upon discharge. diagnosis; Sickle cell crisis Bipolar disorder Cerebral palsy UTI Anemia Status post blood transfusion Wheelchair-bound/mobility disorder 10/30/16 17:30
[2016-10-30 16:41] VITALS: BP 109/82; PULSE 109; RESP 18; TEMP 98.9; O2SAT 98
[2016-10-30] MEDS: Ergocalciferol 50,000 Intl Units Cap PO SCH ×2 (17:14→17:57)
[2016-10-30] MEDS: Mometasone 220 mcg/puff-14 puff Inh IH SCH (17:40)
--- NOTE | 2016-10-30 19:45 | CP.PCM.PN ---
Subjective - Date & Time of Evaluation Date of Evaluation: 10/31/16 Time of Evaluation: 19:00 - Subjective Subjective: Had fall trying to transfer in bathroom Objective - Vital Signs/Intake and Output Vital Signs (last 24 hours): Temp Pulse Resp BP Pulse Ox 98.9 F 109 H 18 109/82 98 10/30/16 16:40 10/30/16 16:40 10/30/16 16:40 10/30/16 16:40 10/30/16 16:40 Intake and Output: 10/30/16 10/31/16 18:59 06:59 Intake Total 180 Balance 180 - Medications Medications: Current Medications Albuterol Sulfate (Albuterol 0.083% Inhal Rika (2.5 Mg/3 Ml) Ud) 2.5 mg IH [id number] PRN PRN Reason: Shortness of Breath Benzocaine/Menthol (Cepacol Sore Throat) 1 rosanna MT Q2H PRN PRN Reason: Sore Throat Last Admin: 10/30/16 10:53 Dose: 1 rosanna Diphenhydramine HCl (Benadryl) 25 mg IVP BID PRN PRN Reason: Itching / Pruritus Last Admin: 10/30/16 13:11 Dose: 25 mg Divalproex Sodium (Depakote Dr (*Bid*)) 250 mg PO TID [facility] PRN Reason: Protocol Last Admin: 10/30/16 17:57 Dose: 250 mg Enoxaparin Sodium (Lovenox) 30 mg SC DAILY [facility] PRN Reason: Protocol Last Admin: 10/30/16 10:41 Dose: 30 mg Ergocalciferol (Drisdol 50,000 Intl Units Cap) 1 cap PO Q7D [facility] Last Admin: 10/30/16 17:57 Dose: 1 cap Folic Acid (Folic Acid) 1 mg PO DAILY [facility] Last Admin: 10/30/16 10:42 Dose: 1 mg Hydroxyurea (Hydrea) 500 mg PO DAILY [facility] Last Admin: 10/29/16 11:05 Dose: Not Given Ceftriaxone Sodium (Rocephin 1 Gram Ivpb) 1 gm in 100 mls @ 100 mls/hr IVPB DAILY [facility] PRN Reason: Protocol Last Admin: 10/30/16 10:42 Dose: 100 mls/hr Sodium Chloride (Sodium Chloride 0.9%) 1,000 mls @ 75 mls/hr IV .[id number] [facility] Last Admin: 10/30/16 14:44 Dose: Not Given Mometasone Furoate (Asmanex Twisthaler 220 Mcg) 1 puff IH QPM [facility] Last Admin: 10/30/16 17:40 Dose: Not Given Multi-Ingredient Ointment (Hydrophor Oint) 0 gm TOP Q6H [facility] Last Admin: 10/30/16 16:48 Dose: Not Given Multivitamins (Thera Tab) 1 tab PO DAILY [facility] Last Admin: 10/30/16 10:42 Dose: 1 tab Ondansetron HCl (Zofran Inj) 4 mg IVP Q4H PRN PRN Reason: Nausea/Vomiting Last Admin: 10/27/16 04:35 Dose: 4 mg Pantoprazole Sodium (Protonix Susp) 40 mg PO 0600 [facility] Last Admin: 10/30/16 06:08 Dose: 40 mg Polyethylene Glycol (Miralax) 17 gm PO DAILY [facility] Last Admin: 10/30/16 10:43 Dose: Not Given Quetiapine Fumarate (Seroquel) 200 mg PO HS [facility] PRN Reason: Protocol Last Admin: 10/29/16 21:33 Dose: 200 mg Quetiapine Fumarate (Seroquel) 50 mg PO QAM [facility] PRN Reason: Protocol Last Admin: 10/30/16 10:41 Dose: 50 mg - Labs Labs: 10/29/16 05:45 10/30/16 07:00 PT 13.1 Seconds (9.9-11.8) H 10/25/16 06:20 INR 1.21 (0.93-1.08) H 10/25/16 06:20 APTT 33.6 Seconds (23.7-30.8) H 10/25/16 06:20 - Head Exam Head Exam: ATRAUMATIC - Eye Exam Eye Exam: Normal appearance - ENT Exam ENT Exam: Mucous Membranes Dry - Respiratory Exam Respiratory Exam: NORMAL BREATHING PATTERN - Cardiovascular Exam Cardiovascular Exam: +S1, +S2 - GI/Abdominal Exam GI & Abdominal Exam: Normal Bowel Sounds - Extremities Exam Extremities Exam: Pedal Edema Assessment and Plan (1) Sickle cell pain crisis Assessment & Plan: IV fluids, pain meds, folic acid, 02 via NC Status: Chronic (2) Thrombocytopenia Assessment & Plan: likely related to hydroxyurea Status: Chronic (3) Iron overload due to repeated red blood cell transfusions Assessment & Plan: outpatient chelation Status: Chronic (4) Sickle cell anemia Assessment & Plan: folic acid and hydrea Status: Chronic
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
--- NOTE | 2016-10-31 00:24 | PN ---
SUBJECTIVE: The patient was followed up today. The patient seems to be better today. Yesterday, the patient refused to talk to this senior technical writer. Today, the patient said that she feels fine. She denied that she is depressed. She denied that she wanted to kill herself or others. The patient denies hearing voices, denied seeing things. The patient reported that she has followup appointment with nurse practitioner Oliver, at [facility] and next appointment is in November. As per collateral information from the medical staff as well as nursing staff, the patient is not exhibiting any aggressive or agitated behavior. The patient has multiple medical issues as well as neurological problems, but the patient does not meet the criteria for psychiatric admission, could be discharged and discharge was signed off. PHYSICAL EXAMINATION: VITAL SIGNS: Stable. Temperature 98.9, pulse is 109, blood pressure 109/82, respiration 18, oxygen saturation is 98. MEDICATIONS: Reviewed. The patient is on Rocephin, Benadryl, Depakote, Lovenox, Drisdol, folic acid, hydroxyurea, multivitamins, Zofran, Protonix, MiraLax, Seroquel 200 mg in the nighttime and 50 mg in the morning time and sodium chloride. LABORATORY DATA: Reviewed. Discussed with medical attending Dr. Jordan. MENTAL STATUS EXAMINATION: The patient presented to be alert, intermittent eye contract, flat affect, Mood described "I'm okay." Thought process is concrete. Thought content, the patient denied visual, auditory, or tactile hallucinations. Denied paranoid ideation. The patient denied thoughts of harming herself or others. Denied intent or plan. Insight and judgement are fair. Impulses are well controlled. IMPRESSION: Rule-out mood disorder due to general medical condition. As per history, the patient has bipolar disorder, rule-out mood disorder and anxiety disorder due to general medical condition. PLAN: Continue current management. Continue Seroquel and Depakote. The patient has followup appointment at [facility] with the nurse practitioner, Oliver. The patient pose no imminent danger to self or others. This senior technical writer will sign off. Should they have any questions, give me a call back. Thank you very much for letting me to participate in care of your patient. Fadia Odonnell MD [facility] # [id number]
== END 2016-10-30 20:30 | disposition home or self-care (01) | DRG 574 ==
LOC: ED 12:45 → EROBSV 12:56 → ERH 16:08 → 5RNO 17:11 → OBSVTOIN 10-24 13:37
PROVIDERS: ADMIT Internal Medicine; ATTEND Internal Medicine
PROC: 30233N1 Transfusion of Nonautologous Red Blood Cells into Peripheral Vein, Percutaneous Approach (ICD-10-PCS; principal; 2016-10-24)
DX: D57.00 Hb-SS disease with crisis, unspecified (principal); I50.20 Unspecified systolic (congestive) heart failure; N39.0 Urinary tract infection, site not specified; B96.1 Klebsiella pneumoniae [K. pneumoniae] as the cause of diseases classified elsewhere; D69.6 Thrombocytopenia, unspecified; F31.9 Bipolar disorder, unspecified; G80.9 Cerebral palsy, unspecified; E83.111 Hemochromatosis due to repeated red blood cell transfusions; J45.909 Unspecified asthma, uncomplicated; F41.9 Anxiety disorder, unspecified; M79.1 Myalgia; Z99.3 Dependence on wheelchair; Z88.6 Allergy status to analgesic agent; Z88.5 Allergy status to narcotic agent

== ENCOUNTER 2016-11-01 11:18 | Emergency (ER) | payer OTHER ==
[2016-11-01 11:18] VITALS: BMI 27.4
[2016-11-01 11:33] VITALS: RESP 18; TEMP 98.5; O2SAT 100
[2016-11-01] MEDS ORDERED: Silver Sulfadiazine 1% Cream (20 gm) TOP STA (12:24)
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
[2016-11-01] MEDS ORDERED: Silver Sulfadiazine 1% Cream (25 gm) TP STA (12:40)
[2016-11-01 13:29] VITALS: BP 109/78; PULSE 66
[2016-11-02] MEDS ORDERED: Lidocaine 1% Inj (20ml) ONE (00:59)
== END 2016-11-01 13:48 | disposition home or self-care (01) ==
LOC: ED 11:18
DX: T22.20XA Burn of second degree of shoulder and upper limb, except wrist and hand, unspecified site, initial encounter (principal); X08.8XXA Exposure to other specified smoke, fire and flames, initial encounter; Y93.9 Activity, unspecified; Y92.9 Unspecified place or not applicable

== ENCOUNTER 2016-11-04 16:06 | Inpatient (IN) | payer OTHER ==
[2016-11-04 16:27] VITALS: BMI 25.4
[2016-11-04] MEDS ORDERED: HYDROmorphone 1 mg/ml ISec IVP STA ×2 (17:31→20:59)
[2016-11-04] MEDS ORDERED: DiphenhydrAMINE 50 mg/ml Inj IVP STA ×2 (17:31→20:59)
[2016-11-04 18:31] LABS: BASO # 0.02 K/mm3 (0.0-2.0); BASO % 0.2 % (0.0-3.0); EOS # 0.1 (0.0-0.7); EOS % 0.5 % (1.5-5.0); GRAN # 4.13 (1.4-6.5); GRAN % 35.8 % (50.0-68.0); LYMPH # 5.6 (1.2-3.4); LYMPH % 48.1 % (22.0-35.0); MEAN CELL VOLUME 109.8 fl (80.0-105.0); MEAN CORPUSCULAR HEMOGLOBIN 37.8 pg (25.0-35.0); MEAN CORPUSCULAR HGB CONC 34.4 g/dl (31.0-37.0); MEAN PLATELET VOLUME 10.4 fl (7.0-11.0); MONO # 1.8 (0.1-0.6); MONO % 15.4 % (1.0-6.0); RED CELL DISTRIBUTION WIDTH 23.9 % (11.5-14.5); WHITE BLOOD COUNT 11.5 10^3/ul (4.5-11.0)
[2016-11-04 18:36] LABS: ALB/GLOB RATIO 0.7 (1.1-1.8); ALKALINE PHOSPHATASE 174 U/L (38-126); ALT/SGPT 78 U/L (7-56); AST/SGOT 177 U/L (14-36); BILIRUBIN,TOTAL 3.3 mg/dL (0.2-1.3); BLOOD UREA NITROGEN 4 mg/dL (7-21); CALCIUM 8.2 mg/dL (8.4-10.5); CARBON DIOXIDE 30 mmol/L (21-33); CHLORIDE 107 mmol/L (98-107); GFR AFRICAN-AMERICAN > 60; GLUCOSE,RANDOM 115 mg/dL (70-110); SODIUM 145 mmol/L (132-148); TOTAL PROTEIN 7.2 g/dL (5.8-8.3)
[2016-11-04 18:43] LABS: HEMATOCRIT 21.2 % (36.0-48.0)
[2016-11-04 18:56] LABS: INR 1.39 (0.93-1.08)
[2016-11-04] MEDS ORDERED: Potassium Chloride 20 mEq/15 ml LIQ UD PO STA (19:00)
[2016-11-04 19:26] LABS: PARTIAL THROMBOPLASTIN TIME > 180.0 Seconds (23.7-30.8)
--- NOTE | 2016-11-04 19:39 | ED PDOC ---
Arrival/HPI - General Historian: Patient - History of Present Illness Time/Duration: Other (5 days) Symptom Course: Unchanged Quality: Other Context: Home - General Chief Complaint: Lower Extremity Problem/Injury Time Seen by Provider: 11/04/16 16:45 - History of Present Illness Narrative History of Present Illness (Text): 11/04/16 19:39 A 36 year old female, whose past medical history includes cerebral palsy and sickle cell disease, presents to the emergency department complaining of bilateral lower extremity swelling and pain for the past 5 days. Patient was seen by PMD today and referred to the emergency room for further evaluation concerning possible poor circulation. Patient states she has never experienced these symptoms before. Patient denies any trauma, injury, fever, chills, nausea , vomiting, abdominal pain, chest pain, shortness of breath or any other complaints. Patient reports she was hospitalized more than 1 week ago for sickle cell crisis. Dr. Jhaveri (Tonie Grissom PA-C) Past Medical History - Provider Review Nursing Documentation Reviewed: Yes - Infectious Disease Hx of Infectious Diseases: None - Tetanus Immunization Tetanus Immunization: Up to Date - Cardiac Hx Cardiac Disorders: Yes Hx Hypertension: Yes - Pulmonary Hx Asthma: Yes - Neurological Hx Neurological Disorder: No Other/Comment: CP - HEENT Hx HEENT Disorder: No - Renal Hx Renal Disorder: No - Endocrine/Metabolic Hx Endocrine Disorders: Yes - Hematological/Oncological Hx Blood Disorders: Yes Hx Anemia: Yes - Integumentary Hx Dermatological Disorder: Yes Hx Eczema: Yes - Musculoskeletal/Rheumatological Hx Falls: No - Gastrointestinal Hx Gastrointestinal Disorders: Yes Hx Gastroesophageal Reflux: Yes Hx Pancreatitis: Yes - Genitourinary/Gynecological Hx Genitourinary Disorders: Yes Hx Urinary Tract Infection: Yes - Psychiatric Hx Psychophysiologic Disorder: Yes Hx Anxiety: Yes Hx Bipolar Disorder: Yes Hx Substance Use: No - Surgical History Hx Cholecystectomy: Yes Hx Splenectomy: Yes - Anesthesia Hx Anesthesia: Yes Hx Anesthesia Reactions: No Hx Malignant Hyperthermia: No - Suicidal Assessment Feels Threatened In Home Enviroment: No Family/Social History - Physician Review Nursing Documentation Reviewed: Yes Family/Social History: No Known Family HX Smoking Status: Former Smoker Hx Alcohol Use: (uncertain) Hx Substance Use: No Hx Substance Use Treatment: No Allergies/Home Meds Allergies/Adverse Reactions: Allergies acetaminophen Allergy (Verified 09/24/16 12:42) RASH aspirin Allergy (Verified 09/24/16 12:42) RASH coconut oil Allergy (Verified 09/24/16 12:42) RASH morphine Allergy (Verified 09/24/16 12:42) SWELLING mushroom Allergy (Verified 09/24/16 12:42) URTICARIA oxycodone Allergy (Verified 09/24/16 12:42) RASH Home Medications: Home Meds Medication Instructions Recorded Confirmed Albuterol HFA [Ventolin HFA 90 2 puff IH TID PRN 10/23/16 11/04/16 mcg/actuation (8 g)] Divalproex [Depakote DR (*BID*)] 250 mg PO TID 10/23/16 11/04/16 Ergocalciferol [Drisdol 50,000 1 cap PO Q7D 10/23/16 11/04/16 Intl Units Cap] Folic Acid [Folic Acid] 1 tab PO DAILY 10/23/16 11/04/16 Hydroxyurea [Hydrea] 1 tab PO DAILY 10/23/16 11/04/16 Multivitamin [Honey Bears] 1 tab PO DAILY 10/23/16 11/04/16 Polyethylene Glycol 3350 [Miralax] 1 packet PO DAILY 10/23/16 11/04/16 QUEtiapine [SEROquel] 1 tab PO DAILY 10/23/16 11/04/16 QUEtiapine [SEROquel] 200 mg PO HS 10/23/16 11/04/16 Review of Systems - Physician Review All systems were reviewed & negative as marked: Yes - Review of Systems Constitutional: absent: Fevers, Night Sweats Respiratory: absent: SOB Cardiovascular: absent: Chest Pain Gastrointestinal: absent: Abdominal Pain, Nausea, Vomiting Musculoskeletal: Other (Bilateral lower extremity swelling and pain) Physical Exam Vital Signs Reviewed: Yes Temperature: Afebrile Blood Pressure: Hypertensive Pulse: Tachycardic Respiratory Rate: Normal Appearance: Positive for: Well-Appearing, Non-Toxic, Comfortable (laying in bed) Pain Distress: None Mental Status: Positive for: Alert and Oriented X 3 - Systems Exam Head: Present: Atraumatic, Normocephalic Pupils: Present: PERRL Extroacular Muscles: Present: EOMI Conjunctiva: Present: Normal Mouth: Present: Moist Mucous Membranes Neck: Present: Normal Range of Motion Respiratory/Chest: Present: Clear to Auscultation, Good Air Exchange. No: Respiratory Distress, Accessory Muscle Use Cardiovascular: Present: Regular Rate and Rhythm, Normal S1, S2. No: Murmurs Abdomen: Present: Normal Bowel Sounds. No: Tenderness, Distention, Peritoneal Signs Back: Present: Normal Inspection Upper Extremity: Present: Normal Inspection. No: Cyanosis, Edema Lower Extremity: Present: Edema (+2 pitting edema to bilateral feet extending up to thighs), Normal ROM, Temperature Abnormalties (b/l feet are cold to touch) , Neurovascularly Intact. No: CALF TENDERNESS, NORMAL PULSES (Weak femoral and DP pulses, Popliteal pulse not palpable), Erythema, Deformity Neurological: Present: GCS=15, CN II-XII Intact, Speech Normal Skin: Present: Warm, Dry, Normal Color. No: Rashes Psychiatric: Present: Alert, Oriented x 3, Normal Insight, Normal Concentration Vital Signs Temp Pulse Resp BP Pulse Ox 11/04/16 22:45 111/75 11/04/16 22:28 16 99 11/04/16 22:20 112 H 18 111/75 84 L 11/04/16 17:47 110 H 18 118/89 97 11/04/16 16:36 98.3 F 112 H 16 120/97 H 97 Medical Decision Making - Lab Interpretations I have reviewed the lab results: Yes ED Course and Treatment: I was available for consultation during PA evaluation. The chart was reviewed by me, and I agree with disposition. The documented history was done by the physician mems device scientist. The documented physical exam was done by the physician mems device scientist. The documented procedures were done by the physician mems device scientist. (Vance Castillo) 11/04/16 19:39 Impression: A 36 year old female with bilateral lower extremity swelling and pain DDx : arterial occlusion, DVT, CHF Plan: -- Duplex lower extremity ultrasound -- Lower extremity art non-inv ultrasound -- EKG -- Labs -- Benadryl, Dilaudid and Potassium chloride -- Reassess and disposition Progress Notes: Considering the potential diagnosis of arterial occlusion, US arterials w/ CANDACE b /l LE ordered STAT. US tech called immediately. Patient sent to US. Lab results reviewed : K 3.0. Given KCL 40 meq PO. BNP is noted to be elevated. CXR is still pending. Lasix [address] Jhaveri request that the patient be admitted under the hospitalist. On re-evaluation, patient is laying in bed, reports of continued pain. PE is unchanged. US duplex of veins show no DVT, US of duplex arterial - shows CANDACE of 0.41 with absent b/l popliteal and DP pulse, official reading by Dr. Whalen is still pending. Considering high likelyhood of arterial occlusion, heparin bolus ordered and drip. Heparin bolus administered. US duplex arterial b/l LE show no evidence of acute occlusion, heparin drip canceled. Diagnostic results d/w the patient. Patient continued to c/o b/l leg pain. Medicated with another dose of dilaudid and benadryl IV. CXR reviewed - shows venous congestion. Considering patient's presentation of b/l LE edema, elevated BNP and CXR findings, patient likely has CHF. Patient's retic count is also 18. Arrangements made for inpatient admission under the hospitalist service for CHF and sickle cell crisis. Case d/w the Dr. Noble and the medical office supervisor. (Jaciel MCGEE,Tonie Jama) - Lab Interpretations Lab Results: 11/04/16 18:05 11/04/16 18:05 Lab Results 11/04/16 18:05: Retic Count 18.75 H* 11/04/16 18:05: Sodium 145, Potassium 3.0 L, Chloride 107, Carbon Dioxide 30, Anion Gap 11, BUN 4 L, Creatinine 0.4 L, Est GFR ( Amer) > 60, Est GFR ( Non-Af Amer) > 60, Random Glucose 115 H, Calcium 8.2 L, Total Bilirubin 3.3 H, AST 177 H D, ALT 78 H, Alkaline Phosphatase 174 H D, NT-Pro-B Natriuret Pep 4070 H, Total Protein 7.2, Albumin 3.0, Globulin 4.3, Albumin/Globulin Ratio 0.7 L 11/04/16 18:05: PT 15.0 H, INR 1.39 H, APTT > 180.0 H* 11/04/16 18:05: WBC 11.5 H D, RBC 1.93 L, Hgb 7.3 L, Hct 21.2 L, MCV 109.8 H, MCH 37.8 H, MCHC 34.4, RDW 23.9 H, Plt Count 137, MPV 10.4, Gran % 35.8 L, Lymph % (Auto) 48.1 H, [place] % (Auto) 15.4 H, Eos % (Auto) 0.5 L, Baso % (Auto) 0.2, Gran # 4.13, Lymph # 5.6 H, [place] # 1.8 H, Eos # 0.1, Baso # 0.02 - RAD Interpretation Radiology Orders: 11/04/16 17:20 DUPLEX LOWER EXTRM VEIN BILAT [US] Stat LOWER EXT ART NON-INV COMPL [US] Stat 11/04/16 17:25 CHEST PORTABLE [RAD] Stat - Medication Orders Current Medication Orders: Divalproex Sodium (Depakote Dr (*Bid*)) 250 mg PO TID ARLETTE PRN Reason: Protocol Folic Acid (Folic Acid) 1 mg PO DAILY ARLETTE Hydromorphone HCl (Dilaudid) 1 mg IVP Q4H PRN PRN Reason: Pain, Mild (1-3) Hydroxyurea (Hydrea) 500 mg PO DAILY ARLETTE Multivitamins (Thera Tab) 1 tab PO DAILY ARLETTE Polyethylene Glycol (Miralax) 17 gm PO DAILY ARLETTE Discontinued Medications Diphenhydramine HCl (Benadryl) 25 mg IVP STAT STA Stop: 11/04/16 17:32 Last Admin: 11/04/16 18:00 Dose: 25 mg Diphenhydramine HCl (Benadryl) 25 mg IVP STAT STA Stop: 11/04/16 21:00 Last Admin: 11/04/16 21:16 Dose: 25 mg Furosemide (Lasix) 20 mg IVP STAT STA Stop: 11/04/16 21:28 Last Admin: 11/04/16 22:45 Dose: 20 mg Heparin Sodium (Porcine) (Heparin) 3,200 units 50 units/kg (3200 units) IV ONCE ONE PRN Reason: Protocol Stop: 11/04/16 20:33 Last Admin: 11/04/16 21:14 Dose: 3,200 units Hydromorphone HCl (Dilaudid) 1 mg IVP STAT STA Stop: 11/04/16 17:32 Last Admin: 11/04/16 18:02 Dose: 1 mg Hydromorphone HCl (Dilaudid) 1 mg IVP STAT STA Stop: 11/04/16 21:00 Last Admin: 11/04/16 21:18 Dose: 1 mg Potassium Chloride (Potassium Chloride Oral Soln) 40 meq PO STAT STA Stop: 11/04/16 19:01 Last Admin: 11/04/16 20:21 Dose: 40 meq - PA / COMPUTER CLERK / Resident Statement MD/DO has reviewed & agrees with the documentation as recorded. - Scribe Statement The provider has reviewed the documentation as recorded by the Scribe - Scribe Statement Nelly Armenta Provider Scribe Attestation: All medical record entries made by the Scribe were at my direction and personally dictated by me. I have reviewed the chart and agree that the record accurately reflects my personal performance of the history, physical exam, medical decision making, and the department course for this patient. I have also personally directed, reviewed, and agree with the discharge instructions and disposition. (Jaciel MCGEE,Tonie Jama) Disposition/Present on Arrival - Present on Arrival Any Indicators Present on Arrival: No History of DVT/PE: No History of Uncontrolled Diabetes: No Urinary Catheter: No History of Decub. Ulcer: No History Surgical Site Infection Following: None - Disposition Have Diagnosis and Disposition been Completed?: Yes Disposition Time: 21:00 Patient Plan: Admission - Disposition Diagnosis: Sickle cell pain crisis, CHF (congestive heart failure), Leg edema Disposition: HOSPITALIZED Patient Problems: Current Active Problems Problem Status Onset CHF (congestive heart failure) Acute Leg edema Acute Sickle cell pain crisis Chronic Condition: STABLE
--- NOTE | 2016-11-04 20:14 | US ---
HISTORY: Leg pain and swelling. Evaluate for DVT PHYSICIAN(S): Noé Whalen MD. TECHNIQUE: Duplex sonography and color-flow Doppler with graded compression were used to evaluate the deep venous systems of both lower extremities. The exam is limited by edema. FINDINGS: The visualized deep venous systems of both lower extremities are sonographically normal and compressible. Normal wave forms and augmentation are seen. There is no sonographic evidence for deep venous thrombosis in the visualized segments of both lower extremities. IMPRESSION: No sonographic evidence for deep venous thrombosis in the visualized segments of both lower extremities.
--- NOTE | 2016-11-04 20:15 | US ---
PROCEDURE: Lower extremity CANDACE exam HISTORY: Peripheral vascular disease with pain and claudication. Previous smoker. PHYSICIAN(S): Noé Whalen MD. FINDINGS: The resting CANDACE's are not obtainable due to calcification The left brachial pressure is noncompressible. The PVR waveforms are relatively normal and symmetric at all levels. No evidence of significant occlusive disease is appreciated IMPRESSION: 1. Limited study. 2. PVR waveforms are relatively normal and symmetric at all levels. No significant occlusive disease is appreciated.
[2016-11-04 21:47] LABS: RETIC% 18.75 % (0.5-1.5)
--- NOTE | 2016-11-05 00:55 | CP.PCM.HP ---
History of Present Illness - History of Present Illness History of Present Illness: 36 year old AA female with past medical history of sickle cell disease, Bipolar disorder, cerebral palsy, Asthma, and CHF presents to the emergency department complaining of bilateral lower extremity swelling and pain for the past couple of days. She also states her legs are painful and it hurts when they are touched. Patient saw her PMD today and was told to come into the emergency room. Patient denies fever, chills, nausea, vomiting, abdominal pain, chest pain, shortness of breath, or trauma. Patient also states she was hospitalized more than a week ago for sickle cell crisis. The patient was lethargic and not able to give all the history and ROS. PMH: Bipolar disorder, CHF (EF of 39.7 Echo done 07/10), asthma, Sickle cell, cerebral palsy PSH: Bilateral Hip Surgery, cholecystectomy Social: Denies Tobacco, Alcohol, or any illicit drug use Family Hx: Sickle Cell (Nephew and Sister), Breast Cancer (Maternal Aunt) Medications: Divalproex, Folate, MVI, Dilaudid, Hydroxyurea, Pantoprazole Allergies: ASA, percocet, morphine, oxycodone, mushrooms, coconut oil Heme/Onc: Dr. Palacios Present on Admission - Present on Admission Any Indicators Present on Admission: No Review of Systems - Constitutional Constitutional: As Per HPI - EENT Eyes: As Per HPI Nose/Mouth/Throat: As Per HPI - Breasts Breasts: As Per HPI - Cardiovascular Cardiovascular: As Per HPI - Respiratory Respiratory: absent: Dyspnea - Gastrointestinal Gastrointestinal: absent: Abdominal Pain - Musculoskeletal Musculoskeletal: As Per HPI - Integumentary Integumentary: As Per HPI - Neurological Neurological: As Per HPI - Psychiatric Psychiatric: As Per HPI Past Patient History - Infectious Disease Hx of Infectious Diseases: None - Tetanus Immunizations Tetanus Immunization: Up to Date - Past Medical History & Family History Past Medical History?: Yes - Past Social History Smoking Status: Former Smoker - CARDIAC Hx Cardiac Disorders: Yes Hx Hypertension: Yes - PULMONARY Hx Asthma: Yes - NEUROLOGICAL Hx Neurological Disorder: No Other/Comment: CP - HEENT Hx HEENT Problems: No - RENAL Hx Chronic Kidney Disease: No - ENDOCRINE/METABOLIC Hx Endocrine Disorders: Yes - HEMATOLOGICAL/ONCOLOGICAL Hx Blood Disorders: Yes Hx Anemia: Yes - INTEGUMENTARY Hx Dermatological Problems: Yes Hx Eczema: Yes - MUSCULOSKELETAL/RHEUMATOLOGICAL Hx Falls: No - GASTROINTESTINAL Hx Gastrointestinal Disorders: Yes Hx Gastroesophageal Reflux: Yes Hx Pancreatitis: Yes - GENITOURINARY/GYNECOLOGICAL Hx Genitourinary Disorders: Yes Hx Urinary Tract Infection: Yes - PSYCHIATRIC Hx Psychophysiologic Disorder: Yes Hx Anxiety: Yes Hx Bipolar Disorder: Yes - SURGICAL HISTORY Hx Cholecystectomy: Yes Hx Splenectomy: Yes - ANESTHESIA Hx Anesthesia: Yes Hx Anesthesia Reactions: No Hx Malignant Hyperthermia: No Meds Allergies/Adverse Reactions: Allergies Allergy/AdvReac Type Severity Reaction Status Date / Time acetaminophen Allergy RASH Verified 09/24/16 12:42 aspirin Allergy RASH Verified 09/24/16 12:42 coconut oil Allergy RASH Verified 09/24/16 12:42 morphine Allergy SWELLING Verified 09/24/16 12:42 mushroom Allergy URTICARIA Verified 09/24/16 12:42 oxycodone Allergy RASH Verified 09/24/16 12:42 Physical Exam - Constitutional Additional comments: ill appearing - Head Exam Head Exam: ATRAUMATIC, NORMAL INSPECTION - Eye Exam Eye Exam: PERRL - Respiratory Exam Respiratory Exam: Rales Additional comments: Rales heard on lower lung haider - Cardiovascular Exam Cardiovascular Exam: REGULAR RHYTHM, +S1, +S2 - GI/Abdominal Exam GI & Abdominal Exam: Normal Bowel Sounds - Extremities Exam Extremities exam: Positive for: pedal edema Additional comments: biltaral edema 2+ - Neurological Exam Neurological exam: Oriented x3 Results - Vital Signs Recent Vital Signs: Last Vital Signs Temp 98.3 F 11/04/16 16:36 Pulse 112 H 11/04/16 22:20 Resp 16 11/04/16 22:28 BP 111/75 11/04/16 22:45 Pulse Ox 99 11/04/16 22:28 - Labs Result Diagrams: 11/05/16 06:30 11/05/16 06:30 Assessment & Plan - Assessment and Plan (Free Text) Assessment: 36 year old female with past medical history of sickle cell disease, Bipolar disorder, cerebral palsy, Asthma, and CHF presents to the emergency department complaining of bilateral lower extremity swelling and pain for the past couple of days. She is being worked up for worsening of her CHF. Plan: 1. Sickle Cell Disease - Hgb of 7.3, continue to monitor - retic count of 18.75 , continue to monitor - Consulted hematology Dr. Stewart, who advised to adhere to regular sickle cell management procedure, and to not transfuse since Hgb is close to her usualy baseline. - Will speak to Dr. Palacios who has previous experience with the patient - Head CT with out contrast ordered to see if any thrombus - hydromorphone given - Hydroxyurea given - Folic acid and MVI started 2. Bilateral lower leg edema secondary to CHF exacerbation - lower extremity US did not reveal any thrombosis or occlusions - EF of 39.7 from June 2016 - Chest x ray ordered - Serial Troponins and serial EKGs ordered - rales at the lower lung bases 3. Hypokalemia - Potassium of 3.0 - Potassium repleted in ED - Recheck AM labs 4. History of Bipolar Disorder -continue home medications 5. GI/DVT prophylaxis -protonix, SCD
--- NOTE | 2016-11-05 02:07 | CT ---
EXAM: CT Head Without Intravenous Contrast CLINICAL HISTORY: 36 years old, female; Signs and symptoms; Other: Incontinence; Additional info: Incontinence and sickle cell crises TECHNIQUE: Axial computed tomography images of the head/brain without intravenous contrast. All CT scans at this facility use one or more dose reduction techniques, viz.: automated exposure control; ma/kV adjustment per patient size (including targeted exams where dose is matched to indication; i.e. head); or iterative reconstruction technique. COMPARISON: No relevant prior studies available. FINDINGS: Brain: Mild atrophy. No intracranial hemorrhage. No mass. No definite edema. Ventricles: No hydrocephalus. Bones/joints: No acute fracture. Soft tissues: Unremarkable. Sinuses: LEFT frontal retention cyst. Mastoid air cells: No mastoid effusion. Orbits: Unremarkable as visualized. IMPRESSION: 1. No acute intracranial abnormality. 2. Incidental/non-acute findings are described above.
[2016-11-05] MEDS: HYDROmorphone 1 mg/ml ISec IVP PRN ×5 (02:42→22:01)
[2016-11-05 06:52] LABS: BASO # 0.04 K/mm3 (0.0-2.0); BASO % 0.3 % (0.0-3.0); EOS # 0.1 (0.0-0.7); EOS % 0.8 % (1.5-5.0); GRAN # 8.05 (1.4-6.5); GRAN % 63.3 % (50.0-68.0); LYMPH # 3.1 (1.2-3.4); LYMPH % 24.4 % (22.0-35.0); MEAN CELL VOLUME 111.1 fl (80.0-105.0); MEAN CORPUSCULAR HEMOGLOBIN 38.1 pg (25.0-35.0); MEAN CORPUSCULAR HGB CONC 34.3 g/dl (31.0-37.0); MONO # 1.4 (0.1-0.6); MONO % 11.2 % (1.0-6.0); RED CELL DISTRIBUTION WIDTH 23.3 % (11.5-14.5); WHITE BLOOD COUNT 12.7 10^3/ul (4.5-11.0)
[2016-11-05 07:01] LABS: BLOOD UREA NITROGEN 3 mg/dL (7-21); CALCIUM 8.1 mg/dL (8.4-10.5); CARBON DIOXIDE 34 mmol/L (21-33); CHLORIDE 106 mmol/L (98-107); GFR AFRICAN-AMERICAN > 60; GLUCOSE,RANDOM 115 mg/dL (70-110); POTASSIUM 3.5 mmol/L (3.6-5.0); SODIUM 146 mmol/L (132-148)
[2016-11-05 07:12] LABS: TROPONIN I 0.05 ng/mL
--- NOTE | 2016-11-05 08:50 | RAD ---
HISTORY: leg edema COMPARISON: 10/24/2016 FINDINGS: LUNGS: No active pulmonary disease. PLEURA: No significant pleural effusion identified, no pneumothorax apparent. CARDIOVASCULAR: Moderate cardiomegaly OSSEOUS STRUCTURES: No significant abnormalities. VISUALIZED UPPER ABDOMEN: Normal. OTHER FINDINGS: Right-sided Port-A-Cath IMPRESSION: No active disease. Moderate cardiomegaly
[2016-11-05] MEDS: Divalproex 250 mg DR (BID formulation) PO SCH ×3 (09:08→17:38)
[2016-11-05] MEDS: POLYETHYLENE GLYCOL 3350 17 GM/Dose PACKET PO SCH ×2 (09:09→09:21)
[2016-11-05] MEDS: Multivitamin Therapeutic Tab PO SCH (10:24)
[2016-11-05] MEDS ORDERED: Sodium Chloride 0.9% 1,000 ML IV SCH ×2 (10:45)
--- NOTE | 2016-11-05 11:52 | CP.PCM.CON ---
History of Present Illness - History of Present Illness History of Present Illness: 36 year old female with a history of sickle cell anemia and bipolar disorder, cardiomyopathy with reduced EF, admitted with sickle cell pain crisis and LE swelling. She was recently discharged for sickle cell pain crisis and was found to have an EF of 35%. She notes to shortness of breath and swelling of her legs. She feels this exacerbated her sickle pain and now has diffuse body pain. She denies fevers and chills. Past medical history: Sickle cell disease, bipolar disorder, cardiomyopathy. Past surgical history: portacath removal, cholecystectomy Family history: Both parents have sickle trait. Social history: Denies tobacco, alcohol, and illicit drug use. Allergies: Acetaminophen, aspirin, oxycodone. Review of systems: All remaining ROS including HEENT, cardiovascular, respiratory, gastrointestinal, genitourinary, musculoskeletal, dermatologic, neurologic, and psychiatric are negative unless mentioned in the HPI. Past Patient History - Infectious Disease Hx of Infectious Diseases: None - Tetanus Immunizations Tetanus Immunization: Up to Date - Past Medical History & Family History Past Medical History?: Yes - Past Social History Smoking Status: Former Smoker - CARDIAC Hx Cardiac Disorders: Yes Hx Hypertension: Yes - PULMONARY Hx Asthma: Yes - NEUROLOGICAL Hx Neurological Disorder: No Other/Comment: CP - HEENT Hx HEENT Problems: No - RENAL Hx Chronic Kidney Disease: No - ENDOCRINE/METABOLIC Hx Endocrine Disorders: Yes - HEMATOLOGICAL/ONCOLOGICAL Hx Blood Disorders: Yes Hx Anemia: Yes - INTEGUMENTARY Hx Dermatological Problems: Yes Hx Eczema: Yes - MUSCULOSKELETAL/RHEUMATOLOGICAL Hx Falls: No - GASTROINTESTINAL Hx Gastrointestinal Disorders: Yes Hx Gastroesophageal Reflux: Yes Hx Pancreatitis: Yes - GENITOURINARY/GYNECOLOGICAL Hx Genitourinary Disorders: Yes Hx Urinary Tract Infection: Yes - PSYCHIATRIC Hx Psychophysiologic Disorder: Yes Hx Anxiety: Yes Hx Bipolar Disorder: Yes - SURGICAL HISTORY Hx Cholecystectomy: Yes Hx Splenectomy: Yes - ANESTHESIA Hx Anesthesia: Yes Hx Anesthesia Reactions: No Hx Malignant Hyperthermia: No Meds Allergies/Adverse Reactions: Allergies Allergy/AdvReac Type Severity Reaction Status Date / Time acetaminophen Allergy RASH Verified 09/24/16 12:42 aspirin Allergy RASH Verified 09/24/16 12:42 coconut oil Allergy RASH Verified 09/24/16 12:42 morphine Allergy SWELLING Verified 09/24/16 12:42 mushroom Allergy URTICARIA Verified 09/24/16 12:42 oxycodone Allergy RASH Verified 09/24/16 12:42 - Medications Medications: Current Medications Diphenhydramine HCl (Benadryl) 25 mg PO Q8H PRN PRN Reason: WITH DILAUDID Last Admin: 11/05/16 10:24 Dose: 25 mg Divalproex Sodium (Depakote Dr (*Bid*)) 250 mg PO TID [facility] PRN Reason: Protocol Last Admin: 11/05/16 09:08 Dose: 250 mg Folic Acid (Folic Acid) 1 mg PO DAILY [facility] Last Admin: 11/05/16 09:09 Dose: 1 mg Hydromorphone HCl (Dilaudid) 1 mg IVP Q4H PRN PRN Reason: Pain, Mild (1-3) Last Admin: 11/05/16 09:08 Dose: 1 mg Hydroxyurea (Hydrea) 500 mg PO DAILY [facility] Last Admin: 11/05/16 10:24 Dose: 500 mg Sodium Chloride (Sodium Chloride 0.9%) 1,000 mls @ 75 mls/hr IV .[id number] [facility] Multivitamins (Thera Tab) 1 tab PO DAILY [facility] Last Admin: 11/05/16 10:24 Dose: 1 tab Pantoprazole Sodium (Protonix Inj) 40 mg IVP DAILY [facility] Last Admin: 11/05/16 09:09 Dose: 40 mg Polyethylene Glycol (Miralax) 17 gm PO DAILY [facility] Last Admin: 11/05/16 09:21 Dose: Not Given Physical Exam - Head Exam Head Exam: ATRAUMATIC - Eye Exam Eye Exam: Normal appearance - ENT Exam ENT Exam: Mucous Membranes Dry - Respiratory Exam Respiratory Exam: NORMAL BREATHING PATTERN - Cardiovascular Exam Cardiovascular Exam: +S1, +S2 - GI/Abdominal Exam GI & Abdominal Exam: Normal Bowel Sounds - Extremities Exam Extremities exam: Positive for: pedal edema - Neurological Exam Neurological exam: Oriented x3 - Psychiatric Exam Psychiatric exam: Normal Affect, Normal Mood Results - Vital Signs Recent Vital Signs: Last Vital Signs Temp 98.5 F 11/05/16 07:58 Pulse 110 H 11/05/16 07:58 Resp 18 11/05/16 07:58 BP 109/80 11/05/16 07:58 Pulse Ox 100 11/05/16 07:58 - Labs Result Diagrams: 11/06/16 08:41 11/06/16 08:41 Labs: Laboratory Results - last 24 hr 11/05/16 11/05/16 11/05/16 06:30 06:30 08:50 WBC 12.7 H RBC 1.89 L Hgb 7.2 L Hct 21.0 L MCV 111.1 H MCH 38.1 H MCHC 34.3 RDW 23.3 H Plt Count 111 L MPV 11.0 Gran % 63.3 Lymph % (Auto) 24.4 Sierra % (Auto) 11.2 H Eos % (Auto) 0.8 L Baso % (Auto) 0.3 Gran # 8.05 H Lymph # 3.1 Sierra # 1.4 H Eos # 0.1 Baso # 0.04 Sodium 146 Potassium 3.5 L Chloride 106 Carbon Dioxide 34 H Anion Gap 10 BUN 3 L Creatinine 0.4 L Est GFR ( Amer) > 60 Est GFR (Non-Af Amer) > 60 Random Glucose 115 H Calcium 8.1 L Troponin I 0.05 D Blood Type B POSITIVE Antibody Screen Negative BBK History Checked Patient has bt Assessment & Plan (1) Sickle cell pain crisis Assessment and Plan: IV fluids, pian meds, folic acid, 02 via AL Status: Chronic (2) Iron overload due to repeated red blood cell transfusions Assessment and Plan: on outpatient chelation minimize transfusion Status: Chronic (3) Leukocytosis Assessment and Plan: likely reactive to sickle cell Status: Acute (4) Sickle cell anemia Assessment and Plan: hydrea and folic acid Thank you for this interesting consult. Status: Chronic
--- NOTE | 2016-11-05 12:58 | CARD ---
APPROVED REPORT EKG Measurement Heart [id number] <Conclusion> Sinus tachycardia ST & T wave abnormality, consider anterolateral ischemia Abnormal ECG
--- NOTE | 2016-11-05 13:08 | CARD ---
APPROVED REPORT EKG Measurement Heart [id number] <Conclusion> Unusual P axis, possible ectopic atrial tachycardia ST & T wave abnormality, consider anterolateral ischemia Abnormal ECG
--- NOTE | 2016-11-05 17:30 | CON ---
DATE: 11/05/2016 HISTORY The patient is a 36-year-old woman with a history of sickle cell disease. She presented with diffuse body aches. She was also found to be edematous in the lower extremities. Her previous workup includes an echocardiogram that reveals an ejection fraction of 39%. There is moderate tricuspid regurgitation with [id number] pulmonary hypertension. PAST MEDICAL HISTORY Also includes a history of cerebral palsy SOCIAL HISTORY Not available. REVIEW OF SYSTEMS Not available. PHYSICAL EXAMINATION GENERAL: The patient is in bed, in no acute distress. VITAL SIGNS: Blood pressure 109/80, heart rate is 108, sinus tachycardia. NECK: Negative JVD. LUNGS: Without rales. HEART: Reveal S1 and S2. 2/6 systolic ejection murmur. EXTREMITIES: Trace edema. LABORATORIES Include hemoglobin is 7.2. Chemistries, BUN and creatinine is 0.4 with a BUN of 3. IMPRESSION 1. Sickle cell disease. 2. Sinus tachycardia secondary to crisis 3. Dilated cardiomyopathy. 4. Pedal edema. 5. Pulmonary hypertension. PLAN Given these findings, the patient needs to be adequately treated for pain. I agree with low doses of diuretics for her edema. Noé Valente MD
--- NOTE | 2016-11-05 22:43 | PCM.RRT ---
NEWSPAPER DELIVERER Nurse Assessment - Medication Medications Administered During NEWSPAPER DELIVERER: adenosine I.Reason for NEWSPAPER DELIVERER - A) Acute Change in Patient: (Select all that apply): Acute change in heart rate less than 50 or greater than 120 Subjective: Patient was found to have heart rate greater then 180, per nurse rate was sustained for 45 minutes. Attending physician and director of medical staff services were present at bedside. Patient states that she did not feel any palpitations. Patient was not in any respiratory distress, pulse ox was 99 on NC. - Neurological Status (Select all that apply): Alert, Responsive, Oriented, Follows Commands - Respiratory Oxygen Delivery Method: Nasal Cannula @L/min (previously on NC) - Constitutional Appears: No Acute Distress - Head Head Exam: ATRAUMATIC, NORMOCEPHALIC - Eyes Eye Exam: Normal appearance - Respiratory Exam Respiratory Exam: Rales, NORMAL BREATHING PATTERN. absent: Wheezes, Respiratory Distress - Cardiovascular Exam Cardiovascular Exam: Tachycardia, REGULAR RHYTHM. absent: Murmur - GI/Abdominal Exam GI & Abdominal Exam: Soft, Normal Bowel Sounds. absent: Distended, Firm, Tenderness - Neurological Exam Neurological Exam: Alert, Awake, Oriented x3 - Extremities Exam Extremities Exam: Normal Inspection. absent: Pedal Edema Plan - Assessment of Findings&Treatment Plan 36 yo female with sickle cell anemia admitted for CHF exacerbation found to have tachycardia with heart rate in the 180s for 45 minutes. Carotid message was not effective in reducing HR. Lasix 40mg was given prior to NEWSPAPER DELIVERER. Adenosine 6 mg were given. Patient heart rate improved after adenosine was given in 123. IVF were stopped. Patient was on supplemental oxygen prior to NEWSPAPER DELIVERER. CXR, EKG and ABG were ordered.
--- NOTE | 2016-11-05 22:50 | PCM.RRT ---
ROCKET ENGINE COMPONENT MECHANIC Nurse Assessment - Situation Date: 11/05/16 Time ROCKET ENGINE COMPONENT MECHANIC was called: 22:30 ROCKET ENGINE COMPONENT MECHANIC Location:: [address] [place] [address] ROCKET ENGINE COMPONENT MECHANIC Reason for Call: Tachycardia ROCKET ENGINE COMPONENT MECHANIC Called By: Physician - IV IV Inserted during ROCKET ENGINE COMPONENT MECHANIC?: No - Respiratory Oxygen Delivery Method: Nasal Cannula @L/min Oxygen Flow Rate: 2 - Medication Medications Administered During ROCKET ENGINE COMPONENT MECHANIC: adenosine - Diagnostic Test Ordered EKG: Yes Chest X-Ray: Yes - Stat Labs Ordered ROCKET ENGINE COMPONENT MECHANIC Stat Labs Ordered: ABG CPR started during ROCKET ENGINE COMPONENT MECHANIC?: No - Vital Signs Vital Sign: Rapid Response Vital Sign Blood Pressure 107/73 Pulse Rate 179 Respiratory Rate 20 Oxygen Saturation 100 - Adama Coma Scale Coma Scale Eye Opening: Spontaneous Coma Scale Motor: Obeys Commands Movement Coma Scale Verbal: Oriented - Time ROCKET ENGINE COMPONENT MECHANIC Ended Time ROCKET ENGINE COMPONENT MECHANIC Ended: 22:37 - Vital Signs at end of ROCKET ENGINE COMPONENT MECHANIC Vital Signs at end of ROCKET ENGINE COMPONENT MECHANIC: Rapid Response End Vital Sign Blood Pressure 109/81 Pulse Rate 129 Respiratory Rate 20 O2 Sat by Pulse Oximetry 100 - Recommendations 5) ROCKET ENGINE COMPONENT MECHANIC Level of Care Recommendations: Remain in current setting (remote tele) Notifications: Attending Physician - Respiratory Oxygen Delivery Method: Nasal Cannula @L/min Oxygen Flow Rate: 2
[2016-11-06] MEDS: HYDROmorphone 1 mg/ml ISec IVP PRN ×4 (03:09→20:28)
--- NOTE | 2016-11-06 07:34 | RAD ---
HISTORY: water quality specialist COMPARISON: 11/04/2016 FINDINGS: LUNGS: No interval change perceived. Markedly shallow right lung volume moderate shallow left lung volume. Overall interstitial and bronchovascular markings appear prominent as before. Left perihilar diffuse faint air bronchogram suggested-not significantly changed. Left perihilar blending patchy airspace opacities edema and/or infiltrates not excluded. Given the consistent shallow lung volumes, if further evaluation needed consider CT chest. PLEURA: No significant pleural effusion identified, no pneumothorax apparent. CARDIOVASCULAR: Cardiomegaly-similar. Right Port-A-Cath tip right atrium OSSEOUS STRUCTURES: No significant abnormalities. VISUALIZED UPPER ABDOMEN: Right upper quadrant cholecystectomy clips OTHER FINDINGS: None. IMPRESSION: Persistent shallow lung volumes. Persistent prominent diffuse interstitial lung markings -interstitial pulmonary edema slightly greater confluence -left jeffery hilar region possible. No interval change perceived Given the consistent shallow lung volumes, if further evaluation needed, consider CT chest. Right Port-A-Cath inserted- tip right atrium.
[2016-11-06 08:48] LABS: MEAN CELL VOLUME 107.6 fl (80.0-105.0); MEAN CORPUSCULAR HEMOGLOBIN 37.8 pg (25.0-35.0); MEAN CORPUSCULAR HGB CONC 35.2 g/dl (31.0-37.0); MEAN PLATELET VOLUME 10.1 fl (7.0-11.0); WHITE BLOOD COUNT 15.8 10^3/ul (4.5-11.0)
[2016-11-06 08:55] LABS: ALB/GLOB RATIO 0.7 (1.1-1.8); ALKALINE PHOSPHATASE 178 U/L (38-126); ALT/SGPT 72 U/L (7-56); AST/SGOT 180 U/L (14-36); BILIRUBIN,TOTAL 6.7 mg/dL (0.2-1.3); BLOOD UREA NITROGEN 6 mg/dL (7-21); CALCIUM 8.2 mg/dL (8.4-10.5); CARBON DIOXIDE 29 mmol/L (21-33); CHLORIDE 104 mmol/L (98-107); GFR AFRICAN-AMERICAN > 60; GLUCOSE,RANDOM 101 mg/dL (70-110); SODIUM 141 mmol/L (132-148); TOTAL PROTEIN 7.4 g/dL (5.8-8.3)
[2016-11-06 08:56] LABS: INR 1.47 (0.93-1.08); PARTIAL THROMBOPLASTIN TIME 33.4 Seconds (23.7-30.8)
[2016-11-06 08:57] LABS: HEMATOCRIT 19.9 % (36.0-48.0)
[2016-11-06 08:58] LABS: RETIC% 25.68 % (0.5-1.5)
[2016-11-06 09:05] LABS: TROPONIN I 0.07 ng/mL
--- NOTE | 2016-11-06 09:21 | PN ---
DATE: 11/06/2016 SUBJECTIVE: The patient's pain is improved. She is resting comfortably this morning. PHYSICAL EXAMINATION: VITAL SIGNS: Blood pressure is 108/76. She remains tachycardic at 110. NECK: Negative JVD. LUNGS: Without rales. HEART: Reveal S1 and S2. EXTREMITIES: Edema is better. LABORATORY DATA: Hemoglobin is 13 after transfusions. Chemistries, BUN and creatinine are unremarkable. Troponins are negative. IMPRESSION 1. Sickle cell disease. 2. Marked anemia. 3. Tachycardia secondary to pain and anemia. 4. Pulmonary hypertension. Given these findings, the patient's treatment is mild diuretics for edema as well as maintaining her hemoglobin at a reasonable state. The patient was intolerant to YAJAIRA inhibitors in the past. Noé Valente MD
[2016-11-06] MEDS: Multivitamin Therapeutic Tab PO SCH (10:56)
[2016-11-06] MEDS: Divalproex 250 mg DR (BID formulation) PO SCH ×3 (10:56→18:19)
[2016-11-06] MEDS: POLYETHYLENE GLYCOL 3350 17 GM/Dose PACKET PO SCH (10:57)
[2016-11-06] MEDS: guaiFENesin 100 mg/5 ml Syrup UD PO PRN (12:33)
--- NOTE | 2016-11-06 15:41 | CP.PCM.PN ---
<JermainEsteban - Last Filed: 11/06/16 15:38> Subjective - Date & Time of Evaluation Date of Evaluation: 11/06/16 Time of Evaluation: 15:38 - Subjective Subjective: Patient has been seen and examined. Overnight. FLIGHT PHYSICIAN was called for have tachycardia with heart rate in the 180s for 45 minutes. Carotid message was not effective in reducing HR. Lasix 40mg was given prior to FLIGHT PHYSICIAN. Adenosine 6 mg were given. Patient heart rate improved after adenosine was given in 123. IVF were stopped. Today patient still complains of LE swelling and pain which has both improved. She denies any CP, SOB, palpitations, changes in bowel habits or urinary symptoms. Objective - Vital Signs/Intake and Output Vital Signs (last 24 hours): Temp Pulse Resp BP Pulse Ox 99 F 120 H 20 117/77 100 11/06/16 13:43 11/06/16 13:43 11/06/16 13:43 11/06/16 13:43 11/06/16 06:00 Intake and Output: 11/06/16 11/06/16 06:59 18:59 Intake Total 120 0 Output Total 0 Balance 120 0 - Medications Medications: Current Medications Diphenhydramine HCl (Benadryl) 25 mg PO Q8H PRN PRN Reason: WITH DILAUDID Last Admin: 11/06/16 10:56 Dose: 25 mg Divalproex Sodium (Depakote Dr (*Bid*)) 250 mg PO TID [facility] PRN Reason: Protocol Last Admin: 11/06/16 15:15 Dose: 250 mg Folic Acid (Folic Acid) 1 mg PO DAILY [facility] Last Admin: 11/06/16 10:56 Dose: 1 mg Furosemide (Lasix) 20 mg PO DAILY [facility] Last Admin: 11/06/16 10:56 Dose: 20 mg Guaifenesin (Robitussin) 100 mg PO Q4H PRN PRN Reason: Cough Last Admin: 11/06/16 12:33 Dose: 100 mg Hydromorphone HCl (Dilaudid) 1 mg IVP Q4H PRN PRN Reason: Pain, Mild (1-3) Last Admin: 11/06/16 08:48 Dose: 1 mg Hydroxyurea (Hydrea) 500 mg PO DAILY [facility] Last Admin: 11/06/16 11:29 Dose: 500 mg Multivitamins (Thera Tab) 1 tab PO DAILY [facility] Last Admin: 11/06/16 10:56 Dose: 1 tab Pantoprazole Sodium (Protonix Inj) 40 mg IVP DAILY [facility] Last Admin: 11/06/16 10:55 Dose: 40 mg Polyethylene Glycol (Miralax) 17 gm PO DAILY [facility] Last Admin: 11/06/16 10:57 Dose: 17 gm - Labs Labs: 11/06/16 08:41 11/06/16 08:41 PT 15.9 Seconds (9.9-11.8) H 11/06/16 08:41 INR 1.47 (0.93-1.08) H 11/06/16 08:41 APTT 33.4 Seconds (23.7-30.8) H 11/06/16 08:41 - Constitutional Appears: In Acute Distress, Chronically Ill - Head Exam Head Exam: ATRAUMATIC, NORMAL INSPECTION, NORMOCEPHALIC - Eye Exam Eye Exam: Normal appearance - Respiratory Exam Additional comments: slight rales in R lower lung base. CTA everywhere else. - Cardiovascular Exam Cardiovascular Exam: +S1, +S2, Murmur - GI/Abdominal Exam GI & Abdominal Exam: Soft, Normal Bowel Sounds. absent: Tenderness - Extremities Exam Extremities Exam: Pedal Edema, Tenderness - Neurological Exam Neurological Exam: Alert, Awake, Oriented x3 - Psychiatric Exam Psychiatric exam: Anxious, Depressed - Skin Skin Exam: Intact, Normal Color, Warm Assessment and Plan - Assessment and Plan (Free Text) Assessment: 36 year old female with past medical history of sickle cell disease, Bipolar disorder, cerebral palsy, Asthma, and CHF presents to the emergency department complaining of bilateral lower extremity swelling and pain for the past couple of days. She is being worked up for worsening of her CHF. Plan: 1. Sickle Cell Disease -Hgb 7 today. Will transfuse 1 unit today. Patient is Iron overload and per Heme will receive outpatient chelation therapy. - retic count of 25.68 continue to monitor - Heme consulted (Philip) recs appreciated - Head CT is negative. - Dilauded 1 Q4 for pain - Hydroxyurea given - Folic acid and MVI started 2. Bilateral lower leg edema secondary to CHF exacerbation - Lower Ext. US showed no evidence of DVT -Started Lasix 20 - EF of 39.7 from June 2016 - Troponins normal x 3. -CXR read persistent shallow lung volumes. Persistent prominent diffuse interstitial lung markings-interstitial pulmonary edema slightly greater confluence left jeffery hilar region possible. No interval change perceived. Right port-a-cath inserted in right atrium. 3. Hypokalemia Repleted; 4.0 today 4. History of Bipolar Disorder/Psych -continue home medications -Consider Psych consult 5. GI/DVT prophylaxis -protonix, SCD Patient seen, discussed, and reviewed with Attending Esteban Aly PGY-1 <Jemma Pritchett - Last Filed: 11/06/16 17:29> Objective - Vital Signs/Intake and Output Vital Signs (last 24 hours): Temp Pulse Resp BP Pulse Ox 99.2 F 119 H 20 121/78 100 11/06/16 16:13 11/06/16 16:13 11/06/16 16:13 11/06/16 16:13 11/06/16 16:00 Intake and Output: 11/06/16 11/06/16 06:59 18:59 Intake Total 120 325 Output Total 0 Balance 120 325 - Medications Medications: Current Medications Diphenhydramine HCl (Benadryl) 25 mg PO Q8H PRN PRN Reason: WITH DILAUDID Last Admin: 11/06/16 10:56 Dose: 25 mg Divalproex Sodium (Depakote Dr (*Bid*)) 250 mg PO TID [facility] PRN Reason: Protocol Last Admin: 11/06/16 15:15 Dose: 250 mg Folic Acid (Folic Acid) 1 mg PO DAILY [facility] Last Admin: 11/06/16 10:56 Dose: 1 mg Furosemide (Lasix) 20 mg PO DAILY [facility] Last Admin: 11/06/16 10:56 Dose: 20 mg Guaifenesin (Robitussin) 100 mg PO Q4H PRN PRN Reason: Cough Last Admin: 11/06/16 12:33 Dose: 100 mg Hydromorphone HCl (Dilaudid) 1 mg IVP Q4H PRN PRN Reason: Pain, Mild (1-3) Last Admin: 11/06/16 16:19 Dose: 1 mg Hydroxyurea (Hydrea) 500 mg PO DAILY [facility] Last Admin: 11/06/16 11:29 Dose: 500 mg Multivitamins (Thera Tab) 1 tab PO DAILY [facility] Last Admin: 11/06/16 10:56 Dose: 1 tab Pantoprazole Sodium (Protonix Inj) 40 mg IVP DAILY [facility] Last Admin: 11/06/16 10:55 Dose: 40 mg Polyethylene Glycol (Miralax) 17 gm PO DAILY [facility] Last Admin: 11/06/16 10:57 Dose: 17 gm - Labs Labs: 11/06/16 08:41 11/06/16 08:41 PT 15.9 Seconds (9.9-11.8) H 11/06/16 08:41 INR 1.47 (0.93-1.08) H 11/06/16 08:41 APTT 33.4 Seconds (23.7-30.8) H 11/06/16 08:41 Attending/Attestation - Attestation I have personally seen and examined this patient.: Yes I have fully participated in the care of the patient.: Yes I have reviewed all pertinent clinical information, including history, physical exam and plan: Yes Notes (Text): 11/06/16 17:22 Attending note; Patient seen and examined with resident. Patient is a 36-year-old female well known to our service is admitted with acute sickle cell crisis and lower extremity edema. Patient with a significant past medical history of sickle cell disease multiple crisis, anemia, multiple transfusions, iron overload, elevated LFTs, cardiomyopathy is admitted with generalized pain and lower extremity edema. Rectal count is elevated; started on low-dose IV fluids. Monitor closely. Continue oxygen, folic acid, Hydrea, IV Dilaudid. Cardiomyopathy; lower extremity edema. Doppler is negative for DVT. Got 1 dose of Lasix. Recent echo showed ejection fraction of 35-40%. Cardiology evaluation appreciated. Anemia; transfuse 1 unit of PRBC. Hematology evaluation appreciated. Elevated bilirubin/LFTs; secondary to acute hemolysis/sickle cell crisis. History of iron overload due to multiple transfusions. Patient is getting deferoxamine as outpatient. Monitor closely. Ultrasound ordered. Bipolar disorder; continue to monitor closely with psychiatrist. Cerebral palsy. Prognosis is poor. Upon discharge the patient will follow-up with supervisor education Dr. bai.
--- NOTE | 2016-11-06 16:29 | CP.PCM.PCO ---
Physician Communication Note - Physician Communication Note Physician Communication Note: pt had blood transfusion, was falling asleep durign the interview, will f/u
[2016-11-06] MEDS ORDERED: Metoprolol 1 mg/ml Inj IVP ONE (18:31)
--- NOTE | 2016-11-06 19:14 | PCM.RRT ---
<MaxRoxana - Last Filed: 11/06/16 19:30> [facility] Nurse Assessment - Situation Date: 11/06/16 Time [facility] was called: 18:35 [facility] Responder Arrival Time: 18:36 [facility] Location:: [address] [place] [address] Room Number: 368-1 [facility] Reason for Call: Tachycardia [facility] Called By: RN, Other Disciplines - IV IV Inserted during [facility]YSICIST [facility]?: No - Respiratory Oxygen Delivery Method: Nasal Cannula @L/min Oxygen Flow Rate: 2 Received Nebulizer Treatments:: No Was the Patient Ventilated with Bag/Mask 100% O2?: No Secretions Suctioned?: No Was the Patient Intubated?: No Was the Patient Placed on a Ventilator?: No - Medication Medications Administered During [facility]: LOPRESSOR 5MG IVP STAT - Diagnostic Test Ordered EKG: Yes (1837) - Stat Labs Ordered [facility] Stat Labs Ordered: BMP CPR started during PHYSICIST [facility]?: No - Vital Signs Vital Sign: Rapid Response Vital Sign Blood Pressure 109/70 Pulse Rate 117 Respiratory Rate 20 Temperature 99.6 F Oxygen Saturation 100 - Adama Coma Scale Coma Scale Eye Opening: Spontaneous Coma Scale Motor: Obeys Commands Movement Coma Scale Verbal: Oriented - Time [facility] Ended Time [facility] Ended: 18:44 - Vital Signs at end of [facility] Vital Signs at end of [facility]: Rapid Response End Vital Sign Blood Pressure 108/79 Pulse Rate 101 Respiratory Rate 18 Temperature 99.6 F O2 Sat by Pulse Oximetry 100 - Recommendations 5) [facility] Level of Care Recommendations: Remain in current setting (remote tele) Notifications: Attending Physician I.Reason for [facility] - A) Acute Change in Patient: (Select all that apply): Staff member or family is worried about patient - Respiratory Oxygen Delivery Method: Nasal Cannula @L/min Oxygen Flow Rate: 2 - Constitutional Appears: In Acute Distress - Head Head Exam: ATRAUMATIC, NORMOCEPHALIC - Eyes Eye Exam: EOMI, Normal appearance - Cardiovascular Exam Cardiovascular Exam: Tachycardia, +S1, +S2 - GI/Abdominal Exam GI & Abdominal Exam: Soft, Normal Bowel Sounds. absent: Guarding, Rebound - Neurological Exam Neurological Exam: Alert, Awake, CN II-XII Intact - Extremities Exam Extremities Exam: Normal Capillary Refill, Normal Inspection Plan - Assessment of Findings&Treatment Plan 36 year old female with sickle cell anemia admitted for CHF exacerbation who had 5 beats of V-tach. At this time, the patient was hemodynamically stable, in NAD, denied CP, or dyspnea. Stat EKG, Magnesium, phosphorus, CMP, troponin I, and CPK ordered. She has had previous rapid responses called (see previous notes for details). Will follow up labs and EKG, and will cue in night team about the event. <Brittnee Good - Last Filed: 11/06/16 20:45> [facility] Nurse Assessment - Vital Signs Vital Sign: Rapid Response Vital Sign Blood Pressure 109/70 Pulse Rate 117 Respiratory Rate 20 Temperature 99.6 F Oxygen Saturation 100 - Vital Signs at end of [facility] Vital Signs at end of [facility]: Rapid Response End Vital Sign Blood Pressure 108/79 Pulse Rate 101 Respiratory Rate 18 Temperature 99.6 F O2 Sat by Pulse Oximetry 100 Attending/Attestation - Attestation I have personally seen and examined this patient.: Yes I have fully participated in the care of the patient.: Yes I have reviewed all pertinent clinical information, including history, physical exam and plan: Yes Notes (Text): 11/06/16 20:44 Responded to RAPID RESPONSE announcement promptly. Agree with medical chief technician's note. Magnesium level was 1.3 . Replaced wth 2 GM Mag Braulio order.
[2016-11-06 19:19] LABS: ALB/GLOB RATIO 0.7 (1.1-1.8); ALKALINE PHOSPHATASE 180 U/L (38-126); ALT/SGPT 70 U/L (7-56); AST/SGOT 193 U/L (14-36); BILIRUBIN,TOTAL 7.3 mg/dL (0.2-1.3); BLOOD UREA NITROGEN 8 mg/dL (7-21); CALCIUM 8.2 mg/dL (8.4-10.5); CARBON DIOXIDE 26 mmol/L (21-33); CHLORIDE 103 mmol/L (98-107); GFR AFRICAN-AMERICAN > 60; GLUCOSE,RANDOM 107 mg/dL (70-110); MAGNESIUM 1.3 mg/dL (1.7-2.2); PHOSPHOROUS 3.4 mg/dL (2.5-4.5); POTASSIUM 4.1 mmol/L (3.6-5.0); SODIUM 141 mmol/L (132-148); TOTAL PROTEIN 7.6 g/dL (5.8-8.3)
[2016-11-06] MEDS ORDERED: Magnesium Sulfate 2 GM in Sodium Chloride 0.9% 100 ML IVPB ONE (20:40)
[2016-11-06 21:09] LABS: VENOUS BLOOD GAS BASE EXCESS 6.9 mmol/L (0.0-2.0); VENOUS BLOOD PH 7.38 (7.32-7.43)
[2016-11-07] MEDS: Pantoprazole 40 mg EC Tab PO SCH (06:23)
[2016-11-07 07:01] LABS: URINE BILIRUBIN SMALL (NEGATIVE); URINE BLOOD LARGE (NEGATIVE); URINE GLUCOSE (UA) NEGATIVE (NEGATIVE); URINE KETONE NEGATIVE (NEGATIVE); URINE LEUKOCYTE ESTERASE SMALL Leu/uL (NEGATIVE); URINE PROTEIN NEGATIVE mg/dL (<30 mg/dL)
[2016-11-07 07:02] LABS: URINE APPEARANCE SL CLOUDY (CLEAR); URINE COLOR YELLOW (YELLOW)
[2016-11-07 07:23] LABS: HEMATOCRIT 24.4 % (36.0-48.0); MEAN CELL VOLUME 102.1 fl (80.0-105.0); MEAN CORPUSCULAR HGB CONC 35.2 g/dl (31.0-37.0); MEAN PLATELET VOLUME 10.6 fl (7.0-11.0); RED CELL DISTRIBUTION WIDTH 24.6 % (11.5-14.5); WHITE BLOOD COUNT 14.9 10^3/ul (4.5-11.0)
[2016-11-07 07:28] LABS: URINE BACTERIA FEW (NEG)
[2016-11-07 07:40] LABS: RETIC% 21.27 % (0.5-1.5)
[2016-11-07 08:03] LABS: ALB/GLOB RATIO 0.7 (1.1-1.8); ALKALINE PHOSPHATASE 173 U/L (38-126); ALT/SGPT 69 U/L (7-56); AST/SGOT 218 U/L (14-36); BILIRUBIN,TOTAL 5.8 mg/dL (0.2-1.3); BLOOD UREA NITROGEN 9 mg/dL (7-21); CALCIUM 8.1 mg/dL (8.4-10.5); CARBON DIOXIDE 33 mmol/L (21-33); CHLORIDE 103 mmol/L (98-107); GFR AFRICAN-AMERICAN > 60; GLUCOSE,RANDOM 94 mg/dL (70-110); POTASSIUM 3.5 mmol/L (3.6-5.0); SODIUM 143 mmol/L (132-148); TOTAL PROTEIN 7.1 g/dL (5.8-8.3)
[2016-11-07 08:04] LABS: TROPONIN I 0.06 ng/mL
[2016-11-07] MEDS ORDERED: Potassium Chloride 20 mEq ER Tab PO STA (08:18)
--- NOTE | 2016-11-07 08:44 | CARD ---
APPROVED REPORT EKG Measurement Heart [id number] <Conclusion> Sinus tachycardia T wave Inv ersions in V3,V4,V5 correlate clinically.
[2016-11-07] MEDS: POLYETHYLENE GLYCOL 3350 17 GM/Dose PACKET PO SCH (09:35)
[2016-11-07] MEDS: Multivitamin Therapeutic Tab PO SCH (09:36)
[2016-11-07] MEDS: Divalproex 250 mg DR (BID formulation) PO SCH ×3 (09:37→17:59)
[2016-11-07] MEDS: HYDROmorphone 1 mg/ml ISec IVP PRN ×2 (09:39→18:02)
--- NOTE | 2016-11-07 10:41 | CARD ---
APPROVED REPORT EKG Measurement Heart [id number] <Conclusion> Normal sinus rhythm Nonspecific T wave abnormality Abnormal ECG
[2016-11-07] MEDS ORDERED: Magnesium Sulfate 2 GM in Sodium Chloride 0.9% 100 ML IVPB ONE (10:56)
--- NOTE | 2016-11-07 12:44 | CP.PCM.PN ---
Addendum entered and electronically signed by Esteban Aly DO 11/07/16 16:21: Plan: Started patient on Coreg 6.25 BID for elevated HR. Original Note: <Esteban Aly - Last Filed: 11/07/16 13:01> Subjective - Date & Time of Evaluation Date of Evaluation: 11/07/16 Time of Evaluation: 12:40 - Subjective Subjective: Patient has been seen and examined. DIRECTOR OF RECRUITMENT called last night due 5 beats V-tach. Patient was given loperssor which reduced HR to low 100's. ROS limited today due to patient not speaking much. She did admit to not having any Chest Pain or SOB. Still complains of lower extremity pain. Objective - Vital Signs/Intake and Output Vital Signs (last 24 hours): Temp Pulse Resp BP Pulse Ox 98.5 F 99 H 20 109/77 95 11/07/16 12:00 11/07/16 12:00 11/07/16 12:00 11/07/16 12:00 11/07/16 06:00 Intake and Output: 11/07/16 11/07/16 06:59 18:59 Intake Total 0 Balance 0 - Medications Medications: Current Medications Diphenhydramine HCl (Benadryl) 25 mg PO Q8H PRN PRN Reason: WITH DILAUDID Last Admin: 11/06/16 20:29 Dose: 25 mg Divalproex Sodium (Depakote Dr (*Bid*)) 250 mg PO TID [facility] PRN Reason: Protocol Last Admin: 11/07/16 09:37 Dose: 250 mg Folic Acid (Folic Acid) 1 mg PO DAILY [facility] Last Admin: 11/07/16 09:36 Dose: 1 mg Furosemide (Lasix) 20 mg PO DAILY [facility] Last Admin: 11/07/16 09:37 Dose: 20 mg Guaifenesin (Robitussin) 100 mg PO Q4H PRN PRN Reason: Cough Last Admin: 11/06/16 12:33 Dose: 100 mg Hydromorphone HCl (Dilaudid) 1 mg IVP Q4H PRN PRN Reason: Pain, Mild (1-3) Last Admin: 11/07/16 09:39 Dose: 1 mg Hydroxyurea (Hydrea) 500 mg PO DAILY [facility] Last Admin: 11/07/16 10:03 Dose: 500 mg Multivitamins (Thera Tab) 1 tab PO DAILY [facility] Last Admin: 11/07/16 09:36 Dose: 1 tab Pantoprazole Sodium (Protonix Ec Tab) 40 mg PO 0600 [facility] Last Admin: 11/07/16 06:23 Dose: Not Given Polyethylene Glycol (Miralax) 17 gm PO DAILY [facility] Last Admin: 11/07/16 09:35 Dose: 17 gm - Labs Labs: 11/07/16 07:00 11/07/16 07:00 PT 15.9 Seconds (9.9-11.8) H 11/06/16 08:41 INR 1.47 (0.93-1.08) H 11/06/16 08:41 APTT 33.4 Seconds (23.7-30.8) H 11/06/16 08:41 - Constitutional Appears: Non-toxic, No Acute Distress - Head Exam Head Exam: ATRAUMATIC, NORMAL INSPECTION, NORMOCEPHALIC - Eye Exam Eye Exam: Normal appearance - Respiratory Exam Respiratory Exam: Rales. absent: Clear to Ausculation Bilateral Additional comments: Rales in right lower lung base. - Cardiovascular Exam Cardiovascular Exam: Tachycardia, REGULAR RHYTHM, +S1, +S2 - GI/Abdominal Exam GI & Abdominal Exam: Soft, Normal Bowel Sounds. absent: Tenderness - Extremities Exam Additional comments: Reduced pedal edema. Distal LE tender to palpation. - Neurological Exam Neurological Exam: Awake, Oriented x3. absent: Alert - Psychiatric Exam Psychiatric exam: Depressed Assessment and Plan - Assessment and Plan (Free Text) Assessment: 36 year old female with past medical history of sickle cell disease, Bipolar disorder, cerebral palsy, Asthma, and CHF presents to the emergency department complaining of bilateral lower extremity swelling and pain for the past couple of days. She is being worked up for worsening of her CHF. Plan: 1. Sickle Cell Disease -Hgb 8.6 today s/p 1 unit. - Retic count is 21.27 today. RI=6.08 indicating adequate response. - Heme consulted (Philip) recs appreciated - Head CT is negative. - Dilauded 1 Q4 for pain - Hydroxyurea given - Folic acid and MVI started 2. Bilateral lower leg edema secondary to CHF exacerbation - Lower Ext. US showed no evidence of DVT -Started Lasix 20 - EF of 39.7 from June 2016 - Troponins normal x 3. -CXR (9/14) read persistent shallow lung volumes. Persistent prominent diffuse interstitial lung markings-interstitial pulmonary edema slightly greater confluence left jeffery hilar region possible. No interval change perceived. Right port-a-cath inserted in right atrium. 3. Hypokalemia 3.5 today (Repleted) Goal of 4.0 4. History of Bipolar Disorder/Psych -continue home medications -Patient was somnolent during Psych visit so Psych will try interview again today. 5. GI/DVT prophylaxis -protonix, SCD Dispo: patient had Leukocytosis likely from stress demargination. which is now resolving. Blood and urine cultures pending. Patient seen, discussed, and reviewed with Attending Esteban Aly PGY-1 <Elzbieta ANGUIANO,Jena - Last Filed: 11/07/16 18:19> Objective - Vital Signs/Intake and Output Vital Signs (last 24 hours): Temp Pulse Resp BP Pulse Ox 98 F 104 H 20 107/79 95 11/07/16 16:53 11/07/16 17:59 11/07/16 16:53 11/07/16 16:53 11/07/16 06:00 Intake and Output: 11/07/16 11/07/16 06:59 18:59 Intake Total 0 240 Balance 0 240 - Medications Medications: Current Medications Carvedilol (Coreg) 6.25 mg PO BID [facility] Last Admin: 11/07/16 17:59 Dose: 6.25 mg Diphenhydramine HCl (Benadryl) 25 mg PO Q8H PRN PRN Reason: WITH DILAUDID Last Admin: 11/07/16 14:05 Dose: 25 mg Divalproex Sodium (Depakote Dr (*Bid*)) 250 mg PO TID [facility] PRN Reason: Protocol Last Admin: 11/07/16 17:59 Dose: 250 mg Folic Acid (Folic Acid) 1 mg PO DAILY [facility] Last Admin: 11/07/16 09:36 Dose: 1 mg Furosemide (Lasix) 20 mg PO DAILY [facility] Last Admin: 11/07/16 09:37 Dose: 20 mg Guaifenesin (Robitussin) 100 mg PO Q4H PRN PRN Reason: Cough Last Admin: 11/06/16 12:33 Dose: 100 mg Hydromorphone HCl (Dilaudid) 1 mg IVP Q4H PRN PRN Reason: Pain, Mild (1-3) Last Admin: 11/07/16 18:02 Dose: 1 mg Hydroxyurea (Hydrea) 500 mg PO DAILY [facility] Last Admin: 11/07/16 10:03 Dose: 500 mg Multivitamins (Thera Tab) 1 tab PO DAILY [facility] Last Admin: 11/07/16 09:36 Dose: 1 tab Pantoprazole Sodium (Protonix Ec Tab) 40 mg PO 0600 [facility] Last Admin: 11/07/16 06:23 Dose: Not Given Polyethylene Glycol (Miralax) 17 gm PO DAILY [facility] Last Admin: 11/07/16 09:35 Dose: 17 gm Trazodone HCl (Desyrel) 50 mg PO HS [facility] - Labs Labs: 11/07/16 07:00 11/07/16 07:00 PT 15.9 Seconds (9.9-11.8) H 11/06/16 08:41 INR 1.47 (0.93-1.08) H 11/06/16 08:41 APTT 33.4 Seconds (23.7-30.8) H 11/06/16 08:41 Attending/Attestation - Attestation I have personally seen and examined this patient.: Yes I have fully participated in the care of the patient.: Yes I have reviewed all pertinent clinical information, including history, physical exam and plan: Yes Notes (Text): 11/07/16 18:16 Patient was seen and examined with medical voucher clerk. 35 year old female with PMH of sickle cell disease, hypertension, asthma, cerebral palsy,CHF with systolic dysfunction and bipolar/depression was admitted with sickle cell crisis , worsening anemia and fluid overload, had episide of tachycardia s VT and was transfered to telemetry.Patient is feeling better.Leg swelling is improving.Dyspnea is getting better.We will start patient on coreg 6.25 mg BID. Electrolyte has been replaced Management plan was discussed in detail with patient Education was provided.. l
[2016-11-07 13:07] LABS: BILIRUBIN,DIRECT 3.8 mg/dL (0.0-0.4)
--- NOTE | 2016-11-07 13:17 | PN ---
DATE: 11/07/2016 CARDIOLOGY FOLLOWUP SUBJECTIVE: The patient is comfortable, treated with IV hydration and medications. PHYSICAL EXAMINATION: VITAL SIGNS: Blood pressure 132/78, heart rate is in the 90s. NECK: Negative JVD. LUNGS: Without rales. HEART: Reveals S1 and S2. EXTREMITIES: Without edema. book mender revealed an episode of 5 beat wide-complex tachycardia. Her magnesium was 1.3. Currently, the magnesium is 1.80 after replacement. The potassium remains at 3.5. IMPRESSION: 1. Sickle cell disease. 2. Cardiomyopathy. 3. An episode of wide-complex tachycardia which has no hemodynamic significance. 4. Hypomagnesemia. 5. Hypokalemia. PLAN: Given these findings, we will replace the potassium and magnesium. We will monitor on telemetry for another 24 hours. Noé Valente MD
--- NOTE | 2016-11-07 13:34 | CP.PCM.CON ---
<Anoop Terry V - Last Filed: 11/07/16 22:00> Meds Allergies/Adverse Reactions: Allergies Allergy/AdvReac Type Severity Reaction Status Date / Time acetaminophen Allergy RASH Verified 09/24/16 12:42 aspirin Allergy RASH Verified 09/24/16 12:42 coconut oil Allergy RASH Verified 09/24/16 12:42 morphine Allergy SWELLING Verified 09/24/16 12:42 mushroom Allergy URTICARIA Verified 09/24/16 12:42 oxycodone Allergy RASH Verified 09/24/16 12:42 - Medications Medications: Current Medications Carvedilol (Coreg) 6.25 mg PO BID [facility] Last Admin: 11/07/16 17:59 Dose: 6.25 mg Diphenhydramine HCl (Benadryl) 25 mg PO Q8H PRN PRN Reason: WITH DILAUDID Last Admin: 11/07/16 14:05 Dose: 25 mg Divalproex Sodium (Depakote Dr (*Bid*)) 250 mg PO TID ARLETTE PRN Reason: Protocol Last Admin: 11/07/16 17:59 Dose: 250 mg Folic Acid (Folic Acid) 1 mg PO DAILY [facility] Last Admin: 11/07/16 09:36 Dose: 1 mg Furosemide (Lasix) 20 mg PO DAILY [facility] Last Admin: 11/07/16 09:37 Dose: 20 mg Guaifenesin (Robitussin) 100 mg PO Q4H PRN PRN Reason: Cough Last Admin: 11/06/16 12:33 Dose: 100 mg Hydromorphone HCl (Dilaudid) 1 mg IVP Q4H PRN PRN Reason: Pain, Mild (1-3) Last Admin: 11/07/16 18:02 Dose: 1 mg Hydroxyurea (Hydrea) 500 mg PO DAILY [facility] Last Admin: 11/07/16 10:03 Dose: 500 mg Multivitamins (Thera Tab) 1 tab PO DAILY [facility] Last Admin: 11/07/16 09:36 Dose: 1 tab Pantoprazole Sodium (Protonix Ec Tab) 40 mg PO 0600 [facility] Last Admin: 11/07/16 06:23 Dose: Not Given Polyethylene Glycol (Miralax) 17 gm PO DAILY [facility] Last Admin: 11/07/16 09:35 Dose: 17 gm Trazodone HCl (Desyrel) 50 mg PO HS ARLETTE Results - Vital Signs Recent Vital Signs: Last Vital Signs Temp 98 F 11/07/16 16:53 Pulse 94 H 11/07/16 18:00 Resp 20 11/07/16 16:53 BP 107/79 11/07/16 16:53 Pulse Ox 95 11/07/16 06:00 - Labs Result Diagrams: 11/07/16 07:00 11/07/16 07:00 Labs: Laboratory Results - last 24 hr 11/07/16 11/07/16 11/07/16 06:20 07:00 07:00 WBC 14.9 H RBC 2.39 L Hgb 8.6 L Hct 24.4 L MCV 102.1 D MCH 36.0 H MCHC 35.2 RDW 24.6 H Plt Count 244 MPV 10.6 Retic Count 21.27 H* Sodium 143 Potassium 3.5 L Chloride 103 Carbon Dioxide 33 Anion Gap 11 BUN 9 Creatinine 0.6 Est GFR ( Amer) > 60 Est GFR (Non-Af Amer) > 60 POC Glucose (mg/dL) Random Glucose 94 Calcium 8.1 L Magnesium Total Bilirubin 5.8 H Direct Bilirubin 3.8 H AST 218 H ALT 69 H Alkaline Phosphatase 173 H Troponin I 0.06 Total Protein 7.1 Albumin 2.8 L Globulin 4.3 Albumin/Globulin Ratio 0.7 L Urine Color Yellow Urine Appearance Sl cloudy Urine pH 6.0 Ur Specific [place] 1.010 Urine Protein Negative Urine Glucose (UA) Negative Urine Ketones Negative Urine Blood Large H Urine Nitrate Negative Urine Bilirubin Small H Urine Urobilinogen 1.0 H Ur Leukocyte Esterase Small H Urine RBC 1 - 3 Urine WBC 2 - 5 Ur Epithelial Cells 3 - 4 Urine Bacteria Few 11/07/16 11/07/16 08:30 12:13 WBC RBC Hgb Hct MCV MCH MCHC RDW Plt Count MPV Retic Count Sodium Potassium Chloride Carbon Dioxide Anion Gap BUN Creatinine Est GFR ( Amer) Est GFR (Non-Af Amer) POC Glucose (mg/dL) 130 H Random Glucose Calcium Magnesium 1.8 Total Bilirubin Direct Bilirubin AST ALT Alkaline Phosphatase Troponin I Total Protein Albumin Globulin Albumin/Globulin Ratio Urine Color Urine Appearance Urine pH Ur Specific [place] Urine Protein Urine Glucose (UA) Urine Ketones Urine Blood Urine Nitrate Urine Bilirubin Urine Urobilinogen Ur Leukocyte Esterase Urine RBC Urine WBC Ur Epithelial Cells Urine Bacteria Attending/Attestation - Attestation I have personally seen and examined this patient.: Yes I have fully participated in the care of the patient.: Yes I have reviewed all pertinent clinical information: Yes Notes (Text): This is an addendum to GI progress report dictated by Avani Ibanez APN.The patient was seen and examined earlier. Medical records, lab studies, imagings were reviewed. Last 24 hours events reviewed. Agreed with the above treatment plan as outlined in Avani Ibanez NP's notes the with the addition of the following on examination abdomen was soft there is mild tenderness on deep palpation. No rebound or guarding Ultrasound scan revealed a normal CBD status post cholecystectomy Both the direct and indirect bilirubin have been elevated Sickle cell crisis with hemostasis. thank you much for allowing us to precipitate in the care of the patient we will Continue to closely follow her care and suggest further management based on the clinical course 11/07/16 22:01 <Avani Ibanez - Last Filed: 11/08/16 07:46> History of Present Illness - History of Present Illness History of Present Illness: Seen and examined at bedside earlier today, chart reviewed. Request for GI consult is for Sickle Cell Crisis and iron overload HPI: this is a 36-year-old female with a past medical history of sickle cell disease, cerebral palsy and bipolar disorder sent to the emergency room for further evaluation by her PMD for complaints of lower extremity swelling and pain for the past couple of days. She complains of discomfort to her legs when it is touch. She was recently hospitalized a few weeks ago for sickle cell crisis. On admission she had a extremity of the ultrasound which was negative for DVT.the patient also complained of nausea, vomiting and abdominal pain, she was able to eat her breakfast, no episodes of hematemesis or complaints of melena. She did receive a unit of packed RBCs yesterday, hemoglobin was 7 and her reticulocyte count is noted to be elevating. The patient states that she did have an endoscopy about a year or 2 ago at [facility], does not recall any acute findings. The patient is a poor historian. No complaints of change in bowel habits,diarrhea, dysphagia, shortness of breath or chest pain. Past medical history: Sickle cell disease, bipolar disorder, CHF, asthma, cerebral palsy Past surgical history: Bilateral hip surgery and cholecystectomy Family history: Nephew/sister sickle cell, maternal aunt: Breast cancer Social history: Denies tobacco, EtOH or substance abuse. Medications: Reviewed as per MAR Allergies: Aspirin, Percocet, morphine, mushrooms, coconut oil, oxycodone ROS: Systems reviewed with positive findings see HPI Past Patient History - Infectious Disease Hx of Infectious Diseases: None - Tetanus Immunizations Tetanus Immunization: Up to Date - Past Medical History & Family History Past Medical History?: Yes - Past Social History Smoking Status: Former Smoker - CARDIAC Hx Cardiac Disorders: Yes Hx Hypertension: Yes - PULMONARY Hx Asthma: Yes - NEUROLOGICAL Hx Neurological Disorder: No Other/Comment: CP - HEENT Hx HEENT Problems: No - RENAL Hx Chronic Kidney Disease: No - ENDOCRINE/METABOLIC Hx Endocrine Disorders: Yes - HEMATOLOGICAL/ONCOLOGICAL Hx Blood Disorders: Yes Hx Anemia: Yes - INTEGUMENTARY Hx Dermatological Problems: Yes Hx Eczema: Yes - MUSCULOSKELETAL/RHEUMATOLOGICAL Hx Falls: No - GASTROINTESTINAL Hx Gastrointestinal Disorders: Yes Hx Gastroesophageal Reflux: Yes Hx Pancreatitis: Yes - GENITOURINARY/GYNECOLOGICAL Hx Genitourinary Disorders: Yes Hx Urinary Tract Infection: Yes - PSYCHIATRIC Hx Psychophysiologic Disorder: Yes Hx Anxiety: Yes Hx Bipolar Disorder: Yes - SURGICAL HISTORY Hx Cholecystectomy: Yes Hx Splenectomy: Yes - ANESTHESIA Hx Anesthesia: Yes Hx Anesthesia Reactions: No Hx Malignant Hyperthermia: No Meds - Medications Medications: Current Medications Diphenhydramine HCl (Benadryl) 25 mg PO Q8H PRN PRN Reason: WITH DILAUDID Last Admin: 11/06/16 20:29 Dose: 25 mg Divalproex Sodium (Depakote Dr (*Bid*)) 250 mg PO TID [facility] PRN Reason: Protocol Last Admin: 11/07/16 09:37 Dose: 250 mg Folic Acid (Folic Acid) 1 mg PO DAILY [facility] Last Admin: 11/07/16 09:36 Dose: 1 mg Furosemide (Lasix) 20 mg PO DAILY [facility] Last Admin: 11/07/16 09:37 Dose: 20 mg Guaifenesin (Robitussin) 100 mg PO Q4H PRN PRN Reason: Cough Last Admin: 11/06/16 12:33 Dose: 100 mg Hydromorphone HCl (Dilaudid) 1 mg IVP Q4H PRN PRN Reason: Pain, Mild (1-3) Last Admin: 11/07/16 09:39 Dose: 1 mg Hydroxyurea (Hydrea) 500 mg PO DAILY [facility] Last Admin: 11/07/16 10:03 Dose: 500 mg Multivitamins (Thera Tab) 1 tab PO DAILY [facility] Last Admin: 11/07/16 09:36 Dose: 1 tab Pantoprazole Sodium (Protonix Ec Tab) 40 mg PO 0600 [facility] Last Admin: 11/07/16 06:23 Dose: Not Given Polyethylene Glycol (Miralax) 17 gm PO DAILY [facility] Last Admin: 11/07/16 09:35 Dose: 17 gm Physical Exam - Constitutional Appears: No Acute Distress - Head Exam Head Exam: NORMOCEPHALIC - Eye Exam Eye Exam: Scleral icterus - ENT Exam ENT Exam: Mucous Membranes Moist - Neck Exam Neck exam: Positive for: Normal Inspection - Respiratory Exam Respiratory Exam: Decreased Breath Sounds, Rales, NORMAL BREATHING PATTERN. absent: Wheezes, Respiratory Distress - Cardiovascular Exam Cardiovascular Exam: +S1, +S2 - GI/Abdominal Exam GI & Abdominal Exam: Normal Bowel Sounds, Soft, Tenderness (mid abdomen). absent: Guarding, Organomegaly, Rebound - Extremities Exam Extremities exam: Positive for: pedal edema, pedal pulses present - Neurological Exam Neurological exam: Oriented x3 - Skin Skin Exam: Dry, Warm Results - Vital Signs Recent Vital Signs: Last Vital Signs Temp 98.5 F 11/07/16 12:00 Pulse 99 H 11/07/16 12:00 Resp 20 11/07/16 12:00 BP 109/77 11/07/16 12:00 Pulse Ox 95 11/07/16 06:00 - Labs Result Diagrams: 11/07/16 07:00 11/07/16 07:00 Labs: Laboratory Results - last 24 hr 11/05/16 11/06/16 11/06/16 08:50 16:30 16:30 WBC RBC Hgb Hct MCV MCH MCHC RDW Plt Count MPV Retic Count pO2 VBG pH VBG pCO2 VBG HCO3 VBG Total CO2 VBG O2 Sat (Calc) VBG Base Excess VBG Potassium Glucose Lactate FiO2 Sodium 141 Potassium 4.1 Chloride 103 Carbon Dioxide 26 Anion Gap 16 BUN 8 Creatinine 0.8 Est GFR ( Amer) > 60 Est GFR (Non-Af Amer) > 60 Random Glucose 107 Calcium 8.2 L Phosphorus 3.4 Magnesium 1.3 L Total Bilirubin 7.3 H AST 193 H ALT 70 H Alkaline Phosphatase 180 H Troponin I 0.07 Total Protein 7.6 Albumin 3.1 Globulin 4.5 Albumin/Globulin Ratio 0.7 L Venous Blood Potassium Urine Color Urine Appearance Urine pH Ur Specific [place] Urine Protein Urine Glucose (UA) Urine Ketones Urine Blood Urine Nitrate Urine Bilirubin Urine Urobilinogen Ur Leukocyte Esterase Urine RBC Urine WBC Ur Epithelial Cells Urine Bacteria Crossmatch See Detail 11/06/16 11/07/16 11/07/16 20:30 06:20 07:00 WBC 14.9 H RBC 2.39 L Hgb 8.6 L Hct 24.4 L MCV 102.1 D MCH 36.0 H MCHC 35.2 RDW 24.6 H Plt Count 244 MPV 10.6 Retic Count 21.27 H* pO2 50 VBG pH 7.38 VBG pCO2 56.0 VBG HCO3 33.1 H VBG Total CO2 34.8 H VBG O2 Sat (Calc) 85.4 H VBG Base Excess 6.9 H VBG Potassium 4.2 Glucose 121 H Lactate 1.8 FiO2 21.0 Sodium 140.0 Potassium Chloride 105.0 Carbon Dioxide Anion Gap BUN Creatinine Est GFR ( Amer) Est GFR (Non-Af Amer) Random Glucose Calcium Phosphorus Magnesium Total Bilirubin AST ALT Alkaline Phosphatase Troponin I Total Protein Albumin Globulin Albumin/Globulin Ratio Venous Blood Potassium 4.2 Urine Color Yellow Urine Appearance Sl cloudy Urine pH 6.0 Ur Specific [place] 1.010 Urine Protein Negative Urine Glucose (UA) Negative Urine Ketones Negative Urine Blood Large H Urine Nitrate Negative Urine Bilirubin Small H Urine Urobilinogen 1.0 H Ur Leukocyte Esterase Small H Urine RBC 1 - 3 Urine WBC 2 - 5 Ur Epithelial Cells 3 - 4 Urine Bacteria Few Crossmatch 11/07/16 11/07/16 07:00 08:30 WBC RBC Hgb Hct MCV MCH MCHC RDW Plt Count MPV Retic Count pO2 VBG pH VBG pCO2 VBG HCO3 VBG Total CO2 VBG O2 Sat (Calc) VBG Base Excess VBG Potassium Glucose Lactate FiO2 Sodium 143 Potassium 3.5 L Chloride 103 Carbon Dioxide 33 Anion Gap 11 BUN 9 Creatinine 0.6 Est GFR ( Amer) > 60 Est GFR (Non-Af Amer) > 60 Random Glucose 94 Calcium 8.1 L Phosphorus Magnesium 1.8 Total Bilirubin 5.8 H AST 218 H ALT 69 H Alkaline Phosphatase 173 H Troponin I 0.06 Total Protein 7.1 Albumin 2.8 L Globulin 4.3 Albumin/Globulin Ratio 0.7 L Venous Blood Potassium Urine Color Urine Appearance Urine pH Ur Specific [place] Urine Protein Urine Glucose (UA) Urine Ketones Urine Blood Urine Nitrate Urine Bilirubin Urine Urobilinogen Ur Leukocyte Esterase Urine RBC Urine WBC Ur Epithelial Cells Urine Bacteria Crossmatch Assessment & Plan - Assessment and Plan (Free Text) Assessment: Assessment: Sickle cell crisis Lower extremity pain and edema CHF. Elevated reticulocyte count/hyperbilirubinemia Asthma Cerebral palsy Plan: Follow-up reticulocyte count Check direct bilirubin trend H&H Monitor for overt GI bleed Continue IV hydration Continue PPI Continue bowel regimen DVT prophylaxis/SCDs hematology FU Thank you for this consult and for allowing us to participate in your patient's care, we'll make further recommendations based upon clinical course. Seen and discussed with Dr. Terry.
[2016-11-07] MEDS ORDERED: Metoprolol 1 mg/ml Inj IVP ONE ×2 (14:39→14:44)
--- NOTE | 2016-11-07 17:34 | PN ---
SUBJECTIVE: The patient was followed up today. The patient presented to be more alert. The patient said that she did not sleep last night, they tried to offer the patient to be on trazodone. The patient said "What do you mean, I'm taking trazodone?". The patient medications list did not indicate that the patient was on that medication before, but as per history the patient was taking and we will resume that medication. The patient denied feeling depressed. Denied thoughts of killing herself or others. Denied intent or plan. The patient denied hearing voices at the moment, but the patient reported when she feels angry, she could here some voices but not now. PHYSICAL EXAMINATION: VITAL SIGNS: Stable but the patient has tachycardia of 169 and 99. Temperature 98.5, blood pressure 113/77, respiration 20, oxygen saturation is 95. MEDICATIONS: Reviewed. Benadryl, Depakote 250 mg three times a day, trazodone will be resumed, multivitamins, hydroxyurea, Dilaudid. LABORATORY DATA: Reviewed. Most recent was from today. The reticulocytes are trending down. WBC is 14.9. Chemistry reviewed. AST and ALT is elevated. Potassium 3.5. Urinalysis; leukocyte esterase small. MENTAL STATUS EXAMINATION: As this underwriter described above, alert and oriented. Mood pleasant. Intermittent eye contact. The patient was under productive of low volume. Mood described "I'm not depressed." Affect was constricted. Thought process is concrete. Thought content, the patient denied visual, auditory, or tactile hallucinations. Denied paranoid ideation. The patient denied thoughts of harming herself or others. Denied intent or plan. Insight and judgement are fair. Impulses are well controlled. IMPRESSION: Rule out mood disorder due to general medical condition. Rule out bipolar disorder. The patient has multiple medical issues, sickle cell crisis. The patient also has history of cerebral palsy. PLAN: Trazodone was resumed. The patient is on Benadryl and Depakote. We will continue current management. Continue current medication. Should they have any questions, give me a call back. Meanwhile, the patient pose no imminent danger to self or others. Should they have questions, call to reconsult. This underwriter will sign-off. Thank you very much. Fadia Odonnell MD Psychiatric # [id number]
--- NOTE | 2016-11-07 18:22 | CP.PCM.CON ---
History of Present Illness - History of Present Illness History of Present Illness: Infectious Disease Consultation: November 07, 2016 36 yo AA female well known to me from previous hospitalizations at [facility] and [facility] presented with generalized pains and admitted for Sickle Cell vasoocclusive Crisis. Patient with lower extremity swelling. She again complains of diffuse body pains. PMHx: Sickle Cell Disease, Cerebral Palsy, Asthma, frequent UTIs, CVA, Bipolar disorder, Cardiomyopathy with reduced EF of 35%. PSHx: cholecystectomy, port-a-cath placement Allergies: Morphine, Acetaminophen, Aspirin, Oxycodone Social Hx: Ex-smoker, no EtOH or illicit drug use Active Medications Carvedilol (Coreg) 6.25 mg PO BID [facility] Last Admin: 11/07/16 17:59 Dose: 6.25 mg Diphenhydramine HCl (Benadryl) 25 mg PO Q8H PRN PRN Reason: WITH DILAUDID Last Admin: 11/07/16 14:05 Dose: 25 mg Divalproex Sodium (Depakote Dr (*Bid*)) 250 mg PO TID [facility] PRN Reason: Protocol Last Admin: 11/07/16 17:59 Dose: 250 mg Folic Acid (Folic Acid) 1 mg PO DAILY [facility] Last Admin: 11/07/16 09:36 Dose: 1 mg Furosemide (Lasix) 20 mg PO DAILY [facility] Last Admin: 11/07/16 09:37 Dose: 20 mg Guaifenesin (Robitussin) 100 mg PO Q4H PRN PRN Reason: Cough Last Admin: 11/06/16 12:33 Dose: 100 mg Hydromorphone HCl (Dilaudid) 1 mg IVP Q4H PRN PRN Reason: Pain, Mild (1-3) Last Admin: 11/07/16 18:02 Dose: 1 mg Hydroxyurea (Hydrea) 500 mg PO DAILY [facility] Last Admin: 11/07/16 10:03 Dose: 500 mg Multivitamins (Thera Tab) 1 tab PO DAILY [facility] Last Admin: 11/07/16 09:36 Dose: 1 tab Pantoprazole Sodium (Protonix Ec Tab) 40 mg PO 0600 [facility] Last Admin: 11/07/16 06:23 Dose: Not Given Polyethylene Glycol (Miralax) 17 gm PO DAILY [facility] Last Admin: 11/07/16 09:35 Dose: 17 gm Trazodone HCl (Desyrel) 50 mg PO HS [facility] Family Hx: Sickle Cell trait in parents. ROS: Patient with fevers. Generalized pains. no chills, no cough, no shortness of breath, no headaches, no dizziness. No chest pain or abdominal pain. Generalized pains most intense in the back and neck. No melena, hematuria, hematemesis, hematochezia. No vision loss or hearing loss. No loss of consciousness. Past Patient History - Infectious Disease Hx of Infectious Diseases: None - Tetanus Immunizations Tetanus Immunization: Up to Date - Past Medical History & Family History Past Medical History?: Yes - Past Social History Smoking Status: Former Smoker - CARDIAC Hx Cardiac Disorders: Yes Hx Hypertension: Yes - PULMONARY Hx Asthma: Yes - NEUROLOGICAL Hx Neurological Disorder: No Other/Comment: CP - HEENT Hx HEENT Problems: No - RENAL Hx Chronic Kidney Disease: No - ENDOCRINE/METABOLIC Hx Endocrine Disorders: Yes - HEMATOLOGICAL/ONCOLOGICAL Hx Blood Disorders: Yes Hx Anemia: Yes - INTEGUMENTARY Hx Dermatological Problems: Yes Hx Eczema: Yes - MUSCULOSKELETAL/RHEUMATOLOGICAL Hx Falls: No - GASTROINTESTINAL Hx Gastrointestinal Disorders: Yes Hx Gastroesophageal Reflux: Yes Hx Pancreatitis: Yes - GENITOURINARY/GYNECOLOGICAL Hx Genitourinary Disorders: Yes Hx Urinary Tract Infection: Yes - PSYCHIATRIC Hx Psychophysiologic Disorder: Yes Hx Anxiety: Yes Hx Bipolar Disorder: Yes - SURGICAL HISTORY Hx Cholecystectomy: Yes Hx Splenectomy: Yes - ANESTHESIA Hx Anesthesia: Yes Hx Anesthesia Reactions: No Hx Malignant Hyperthermia: No Meds Allergies/Adverse Reactions: Allergies Allergy/AdvReac Type Severity Reaction Status Date / Time acetaminophen Allergy RASH Verified 09/24/16 12:42 aspirin Allergy RASH Verified 09/24/16 12:42 coconut oil Allergy RASH Verified 09/24/16 12:42 morphine Allergy SWELLING Verified 09/24/16 12:42 mushroom Allergy URTICARIA Verified 09/24/16 12:42 oxycodone Allergy RASH Verified 09/24/16 12:42 - Medications Medications: Current Medications Carvedilol (Coreg) 6.25 mg PO BID [facility] Diphenhydramine HCl (Benadryl) 25 mg PO Q8H PRN PRN Reason: WITH DILAUDID Last Admin: 11/07/16 14:05 Dose: 25 mg Divalproex Sodium (Depakote Dr (*Bid*)) 250 mg PO TID [facility] PRN Reason: Protocol Last Admin: 11/07/16 14:05 Dose: 250 mg Folic Acid (Folic Acid) 1 mg PO DAILY [facility] Last Admin: 11/07/16 09:36 Dose: 1 mg Furosemide (Lasix) 20 mg PO DAILY [facility] Last Admin: 11/07/16 09:37 Dose: 20 mg Guaifenesin (Robitussin) 100 mg PO Q4H PRN PRN Reason: Cough Last Admin: 11/06/16 12:33 Dose: 100 mg Hydromorphone HCl (Dilaudid) 1 mg IVP Q4H PRN PRN Reason: Pain, Mild (1-3) Last Admin: 11/07/16 09:39 Dose: 1 mg Hydroxyurea (Hydrea) 500 mg PO DAILY [facility] Last Admin: 11/07/16 10:03 Dose: 500 mg Multivitamins (Thera Tab) 1 tab PO DAILY [facility] Last Admin: 11/07/16 09:36 Dose: 1 tab Pantoprazole Sodium (Protonix Ec Tab) 40 mg PO 0600 [facility] Last Admin: 11/07/16 06:23 Dose: Not Given Polyethylene Glycol (Miralax) 17 gm PO DAILY [facility] Last Admin: 11/07/16 09:35 Dose: 17 gm Trazodone HCl (Desyrel) 50 mg PO [facility] Physical Exam - Constitutional Appears: Non-toxic, No Acute Distress, Chronically Ill - Head Exam Head Exam: ATRAUMATIC, NORMOCEPHALIC - Eye Exam Eye Exam: EOMI, PERRL Pupil Exam: NORMAL ACCOMODATION, PERRL - ENT Exam ENT Exam: Mucous Membranes Moist, Normal External Ear Exam, TM's Normal Bilaterally - Neck Exam Neck exam: Positive for: Full Rom, Normal Inspection - Respiratory Exam Respiratory Exam: Clear to Auscultation Bilateral, NORMAL BREATHING PATTERN. absent: Rales, Rhonchi, Wheezes - Cardiovascular Exam Cardiovascular Exam: REGULAR RHYTHM, RRR, +S1, +S2 - GI/Abdominal Exam GI & Abdominal Exam: Normal Bowel Sounds, Soft. absent: Distended, Tenderness - Extremities Exam Extremities exam: Positive for: joint swelling, pedal edema - Neurological Exam Neurological exam: Alert, CN II-XII Intact, Oriented x3 - Psychiatric Exam Psychiatric exam: Depressed, Flat Affect - Skin Skin Exam: Intact, Normal Color Results - Vital Signs Recent Vital Signs: Last Vital Signs Temp 98 F 11/07/16 16:53 Pulse 98 H 11/07/16 16:53 Resp 20 11/07/16 16:53 BP 107/79 11/07/16 16:53 Pulse Ox 95 11/07/16 06:00 - Labs Result Diagrams: 11/07/16 07:00 11/07/16 07:00 Labs: Laboratory Results - last 24 hr 11/06/16 11/06/16 11/07/16 16:30 20:30 06:20 WBC RBC Hgb Hct MCV MCH MCHC RDW Plt Count MPV Retic Count pO2 50 VBG pH 7.38 VBG pCO2 56.0 VBG HCO3 33.1 H VBG Total CO2 34.8 H VBG O2 Sat (Calc) 85.4 H VBG Base Excess 6.9 H VBG Potassium 4.2 Glucose 121 H Lactate 1.8 FiO2 21.0 Sodium 141 140.0 Potassium 4.1 Chloride 103 105.0 Carbon Dioxide 26 Anion Gap 16 BUN 8 Creatinine 0.8 Est GFR ( Amer) > 60 Est GFR (Non-Af Amer) > 60 POC Glucose (mg/dL) Random Glucose 107 Calcium 8.2 L Phosphorus 3.4 Magnesium 1.3 L Total Bilirubin 7.3 H Direct Bilirubin AST 193 H ALT 70 H Alkaline Phosphatase 180 H Troponin I Total Protein 7.6 Albumin 3.1 Globulin 4.5 Albumin/Globulin Ratio 0.7 L Venous Blood Potassium 4.2 Urine Color Yellow Urine Appearance Sl cloudy Urine pH 6.0 Ur Specific [place] 1.010 Urine Protein Negative Urine Glucose (UA) Negative Urine Ketones Negative Urine Blood Large H Urine Nitrate Negative Urine Bilirubin Small H Urine Urobilinogen 1.0 H Ur Leukocyte Esterase Small H Urine RBC 1 - 3 Urine WBC 2 - 5 Ur Epithelial Cells 3 - 4 Urine Bacteria Few 11/07/16 11/07/16 11/07/16 07:00 07:00 08:30 WBC 14.9 H RBC 2.39 L Hgb 8.6 L Hct 24.4 L MCV 102.1 D MCH 36.0 H MCHC 35.2 RDW 24.6 H Plt Count 244 MPV 10.6 Retic Count 21.27 H* pO2 VBG pH VBG pCO2 VBG HCO3 VBG Total CO2 VBG O2 Sat (Calc) VBG Base Excess VBG Potassium Glucose Lactate FiO2 Sodium 143 Potassium 3.5 L Chloride 103 Carbon Dioxide 33 Anion Gap 11 BUN 9 Creatinine 0.6 Est GFR ( Amer) > 60 Est GFR (Non-Af Amer) > 60 POC Glucose (mg/dL) Random Glucose 94 Calcium 8.1 L Phosphorus Magnesium 1.8 Total Bilirubin 5.8 H Direct Bilirubin 3.8 H AST 218 H ALT 69 H Alkaline Phosphatase 173 H Troponin I 0.06 Total Protein 7.1 Albumin 2.8 L Globulin 4.3 Albumin/Globulin Ratio 0.7 L Venous Blood Potassium Urine Color Urine Appearance Urine pH Ur Specific [place] Urine Protein Urine Glucose (UA) Urine Ketones Urine Blood Urine Nitrate Urine Bilirubin Urine Urobilinogen Ur Leukocyte Esterase Urine RBC Urine WBC Ur Epithelial Cells Urine Bacteria 11/07/16 12:13 WBC RBC Hgb Hct MCV MCH MCHC RDW Plt Count MPV Retic Count pO2 VBG pH VBG pCO2 VBG HCO3 VBG Total CO2 VBG O2 Sat (Calc) VBG Base Excess VBG Potassium Glucose Lactate FiO2 Sodium Potassium Chloride Carbon Dioxide Anion Gap BUN Creatinine Est GFR ( Amer) Est GFR (Non-Af Amer) POC Glucose (mg/dL) 130 H Random Glucose Calcium Phosphorus Magnesium Total Bilirubin Direct Bilirubin AST ALT Alkaline Phosphatase Troponin I Total Protein Albumin Globulin Albumin/Globulin Ratio Venous Blood Potassium Urine Color Urine Appearance Urine pH Ur Specific [place] Urine Protein Urine Glucose (UA) Urine Ketones Urine Blood Urine Nitrate Urine Bilirubin Urine Urobilinogen Ur Leukocyte Esterase Urine RBC Urine WBC Ur Epithelial Cells Urine Bacteria Assessment & Plan - Assessment and Plan (Free Text) Assessment: 36 yo AA female with leukocytosis as high as 15.8 presenting again with Sickle Cell Crisis. Patient with blood and urine cultures pending. Currently off of antibiotics. She continues to complain about generalized pains. Long history of Sickle Cell disease. Patient also with Iron Overload secondary to repeated transfusions of PBRCs in the recent past. Supportive care. Thank you for allowing me to participate in the care of the patient, we will follow with you.
--- NOTE | 2016-11-08 01:43 | CP.PCM.PN ---
Subjective - Date & Time of Evaluation Date of Evaluation: 11/06/16 Time of Evaluation: 13:00 - Subjective Subjective: Has pain, swelling Objective - Vital Signs/Intake and Output Vital Signs (last 24 hours): Temp Pulse Resp BP Pulse Ox 98.6 F 91 H 20 94/56 L 95 11/08/16 00:01 11/08/16 00:01 11/08/16 00:01 11/08/16 00:01 11/07/16 06:00 Intake and Output: 11/07/16 11/08/16 18:59 06:59 Intake Total 240 Balance 240 - Medications Medications: Current Medications Carvedilol (Coreg) 6.25 mg PO BID [facility] Last Admin: 11/07/16 17:59 Dose: 6.25 mg Diphenhydramine HCl (Benadryl) 25 mg PO Q8H PRN PRN Reason: WITH DILAUDID Last Admin: 11/07/16 14:05 Dose: 25 mg Divalproex Sodium (Depakote Dr (*Bid*)) 250 mg PO TID [facility] PRN Reason: Protocol Last Admin: 11/07/16 17:59 Dose: 250 mg Folic Acid (Folic Acid) 1 mg PO DAILY [facility] Last Admin: 11/07/16 09:36 Dose: 1 mg Furosemide (Lasix) 20 mg PO DAILY [facility] Last Admin: 11/07/16 09:37 Dose: 20 mg Guaifenesin (Robitussin) 100 mg PO Q4H PRN PRN Reason: Cough Last Admin: 11/06/16 12:33 Dose: 100 mg Hydromorphone HCl (Dilaudid) 1 mg IVP Q4H PRN PRN Reason: Pain, Mild (1-3) Last Admin: 11/07/16 18:02 Dose: 1 mg Hydroxyurea (Hydrea) 500 mg PO DAILY [facility] Last Admin: 11/07/16 10:03 Dose: 500 mg Multivitamins (Thera Tab) 1 tab PO DAILY [facility] Last Admin: 11/07/16 09:36 Dose: 1 tab Pantoprazole Sodium (Protonix Ec Tab) 40 mg PO 0600 [facility] Last Admin: 11/07/16 06:23 Dose: Not Given Polyethylene Glycol (Miralax) 17 gm PO DAILY [facility] Last Admin: 11/07/16 09:35 Dose: 17 gm Trazodone HCl (Desyrel) 50 mg PO HS [facility] Last Admin: 11/07/16 22:51 Dose: 50 mg - Labs Labs: 11/07/16 07:00 11/07/16 07:00 PT 15.9 Seconds (9.9-11.8) H 11/06/16 08:41 INR 1.47 (0.93-1.08) H 11/06/16 08:41 APTT 33.4 Seconds (23.7-30.8) H 11/06/16 08:41 - Head Exam Head Exam: ATRAUMATIC - Eye Exam Eye Exam: Normal appearance - ENT Exam ENT Exam: Mucous Membranes Dry - Respiratory Exam Respiratory Exam: NORMAL BREATHING PATTERN - Cardiovascular Exam Cardiovascular Exam: +S1, +S2 - GI/Abdominal Exam GI & Abdominal Exam: Normal Bowel Sounds - Extremities Exam Extremities Exam: Pedal Edema Assessment and Plan (1) Sickle cell pain crisis Assessment & Plan: pain meds, folic acid, 02 via NC IV hydration limited due to cardiomyopathy encourage PO hydration Status: Chronic (2) Iron overload due to repeated red blood cell transfusions Assessment & Plan: on outpatient chelation minimize transfusion support Status: Chronic (3) Leukocytosis Assessment & Plan: chronic likely reactive Status: Acute (4) Sickle cell anemia Assessment & Plan: hydrea and folic acid Status: Chronic
--- NOTE | 2016-11-08 01:45 | CP.PCM.PN ---
Subjective - Date & Time of Evaluation Date of Evaluation: 11/07/16 Time of Evaluation: 16:35 - Subjective Subjective: Has pain and swelling of feet Objective - Vital Signs/Intake and Output Vital Signs (last 24 hours): Temp Pulse Resp BP Pulse Ox 98.6 F 91 H 20 94/56 L 95 11/08/16 00:01 11/08/16 00:01 11/08/16 00:01 11/08/16 00:01 11/07/16 06:00 Intake and Output: 11/07/16 11/08/16 18:59 06:59 Intake Total 240 Balance 240 - Medications Medications: Current Medications Carvedilol (Coreg) 6.25 mg PO BID [facility] Last Admin: 11/07/16 17:59 Dose: 6.25 mg Diphenhydramine HCl (Benadryl) 25 mg PO Q8H PRN PRN Reason: WITH DILAUDID Last Admin: 11/07/16 14:05 Dose: 25 mg Divalproex Sodium (Depakote Dr (*Bid*)) 250 mg PO TID [facility] PRN Reason: Protocol Last Admin: 11/07/16 17:59 Dose: 250 mg Folic Acid (Folic Acid) 1 mg PO DAILY [facility] Last Admin: 11/07/16 09:36 Dose: 1 mg Furosemide (Lasix) 20 mg PO DAILY [facility] Last Admin: 11/07/16 09:37 Dose: 20 mg Guaifenesin (Robitussin) 100 mg PO Q4H PRN PRN Reason: Cough Last Admin: 11/06/16 12:33 Dose: 100 mg Hydromorphone HCl (Dilaudid) 1 mg IVP Q4H PRN PRN Reason: Pain, Mild (1-3) Last Admin: 11/07/16 18:02 Dose: 1 mg Hydroxyurea (Hydrea) 500 mg PO DAILY [facility] Last Admin: 11/07/16 10:03 Dose: 500 mg Multivitamins (Thera Tab) 1 tab PO DAILY [facility] Last Admin: 11/07/16 09:36 Dose: 1 tab Pantoprazole Sodium (Protonix Ec Tab) 40 mg PO 0600 [facility] Last Admin: 11/07/16 06:23 Dose: Not Given Polyethylene Glycol (Miralax) 17 gm PO DAILY [facility] Last Admin: 11/07/16 09:35 Dose: 17 gm Trazodone HCl (Desyrel) 50 mg PO [facility] Last Admin: 11/07/16 22:51 Dose: 50 mg - Labs Labs: 11/07/16 07:00 11/07/16 07:00 PT 15.9 Seconds (9.9-11.8) H 11/06/16 08:41 INR 1.47 (0.93-1.08) H 11/06/16 08:41 APTT 33.4 Seconds (23.7-30.8) H 11/06/16 08:41 - Head Exam Head Exam: ATRAUMATIC - Eye Exam Eye Exam: Normal appearance - ENT Exam ENT Exam: Mucous Membranes Dry - Respiratory Exam Respiratory Exam: NORMAL BREATHING PATTERN - Cardiovascular Exam Cardiovascular Exam: +S1, +S2 - GI/Abdominal Exam GI & Abdominal Exam: Normal Bowel Sounds - Extremities Exam Extremities Exam: Pedal Edema Assessment and Plan (1) Sickle cell pain crisis Assessment & Plan: pain meds, folic acid, 02 via NC IV hydration limited by cardiomyopathy Status: Chronic (2) Iron overload due to repeated red blood cell transfusions Assessment & Plan: on outpatient chelation minimize transfusion support Status: Chronic (3) Leukocytosis Assessment & Plan: chronic likely reactive Status: Acute (4) Sickle cell anemia Assessment & Plan: hydrea and folic acid Status: Chronic
[2016-11-08] MEDS: HYDROmorphone 1 mg/ml ISec IVP PRN ×4 (05:24→18:00)
[2016-11-08] MEDS: Pantoprazole 40 mg EC Tab PO SCH (05:25)
[2016-11-08 07:44] LABS: MEAN CORPUSCULAR HEMOGLOBIN 36.5 pg (25.0-35.0); MEAN CORPUSCULAR HGB CONC 35.4 g/dl (31.0-37.0); MEAN PLATELET VOLUME 10.4 fl (7.0-11.0); WHITE BLOOD COUNT 13.1 10^3/ul (4.5-11.0)
[2016-11-08 08:02] LABS: ALB/GLOB RATIO 0.6 (1.1-1.8); ALKALINE PHOSPHATASE 172 U/L (38-126); ALT/SGPT 82 U/L (7-56); AST/SGOT 299 U/L (14-36); BILIRUBIN,TOTAL 5.3 mg/dL (0.2-1.3); BLOOD UREA NITROGEN 10 mg/dL (7-21); CALCIUM 8.1 mg/dL (8.4-10.5); CARBON DIOXIDE 32 mmol/L (21-33); CHLORIDE 103 mmol/L (98-107); GFR AFRICAN-AMERICAN > 60; GLUCOSE,RANDOM 99 mg/dL (70-110); POTASSIUM 4.2 mmol/L (3.6-5.0); SODIUM 142 mmol/L (132-148)
[2016-11-08 08:04] LABS: HEMATOCRIT 23.7 % (36.0-48.0); RETIC% 18.37 % (0.5-1.5)
--- NOTE | 2016-11-08 08:48 | CARD ---
APPROVED REPORT EKG Measurement Heart [id number] <Conclusion> Normal sinus rhythm T wave Inversions in V3,V4,V5,V6.
[2016-11-08] MEDS: Multivitamin Therapeutic Tab PO SCH (09:42)
[2016-11-08] MEDS: Divalproex 250 mg DR (BID formulation) PO SCH ×3 (09:43→17:59)
[2016-11-08] MEDS: POLYETHYLENE GLYCOL 3350 17 GM/Dose PACKET PO SCH (09:43)
[2016-11-08 10:38] LABS: MAGNESIUM 1.9 mg/dL (1.7-2.2); PHOSPHOROUS 3.3 mg/dL (2.5-4.5)
--- NOTE | 2016-11-08 11:31 | CP.PCM.PN ---
<Avani Ibanez - Last Filed: 11/08/16 11:31> Subjective - Date & Time of Evaluation Date of Evaluation: 11/08/16 Time of Evaluation: 09:55 - Subjective Subjective: S&E at bedside, earlier today, No BM X 2days, just drank Miralax, No N.V, tolerated breakfast so far. No acute overnight events, Lower extremity some improvement.No SOB or CP, abdominal pain better. Objective - Vital Signs/Intake and Output Vital Signs (last 24 hours): Temp Pulse Resp BP Pulse Ox 98.4 F 91 H 20 105/77 95 11/08/16 06:00 11/08/16 09:42 11/08/16 06:00 11/08/16 11:20 11/07/16 06:00 Intake and Output: 11/08/16 11/08/16 06:59 18:59 Intake Total 240 Output Total 600 Balance -360 - Medications Medications: Current Medications Carvedilol (Coreg) 6.25 mg PO BID [facility] Last Admin: 11/08/16 09:42 Dose: 6.25 mg Diphenhydramine HCl (Benadryl) 25 mg PO Q8H PRN PRN Reason: WITH DILAUDID Last Admin: 11/07/16 14:05 Dose: 25 mg Divalproex Sodium (Depakote Dr (*Bid*)) 250 mg PO TID [facility] PRN Reason: Protocol Last Admin: 11/08/16 09:43 Dose: 250 mg Folic Acid (Folic Acid) 1 mg PO DAILY [facility] Last Admin: 11/08/16 09:43 Dose: 1 mg Furosemide (Lasix) 20 mg PO DAILY [facility] Last Admin: 11/08/16 09:42 Dose: 20 mg Guaifenesin (Robitussin) 100 mg PO Q4H PRN PRN Reason: Cough Last Admin: 11/06/16 12:33 Dose: 100 mg Hydromorphone HCl (Dilaudid) 1 mg IVP Q4H PRN PRN Reason: Pain, Mild (1-3) Last Admin: 11/08/16 09:43 Dose: 1 mg Hydroxyurea (Hydrea) 500 mg PO DAILY [facility] Last Admin: 11/08/16 09:42 Dose: 500 mg Multivitamins (Thera Tab) 1 tab PO DAILY [facility] Last Admin: 11/08/16 09:42 Dose: 1 tab Pantoprazole Sodium (Protonix Ec Tab) 40 mg PO 0600 [facility] Last Admin: 11/08/16 05:25 Dose: 40 mg Polyethylene Glycol (Miralax) 17 gm PO DAILY [facility] Last Admin: 11/08/16 09:43 Dose: 17 gm Trazodone HCl (Desyrel) 50 mg PO HS [facility] Last Admin: 11/07/16 22:51 Dose: 50 mg - Labs Labs: 11/08/16 07:37 11/08/16 07:37 PT 15.9 Seconds (9.9-11.8) H 11/06/16 08:41 INR 1.47 (0.93-1.08) H 11/06/16 08:41 APTT 33.4 Seconds (23.7-30.8) H 11/06/16 08:41 - Constitutional Appears: No Acute Distress - Head Exam Head Exam: NORMOCEPHALIC - Eye Exam Eye Exam: Normal appearance. absent: Scleral icterus - ENT Exam ENT Exam: Mucous Membranes Moist - Neck Exam Neck Exam: Normal Inspection - Respiratory Exam Respiratory Exam: NORMAL BREATHING PATTERN. absent: Respiratory Distress - Cardiovascular Exam Cardiovascular Exam: +S1, +S2 - GI/Abdominal Exam GI & Abdominal Exam: Soft, Tenderness (RUQ), Normal Bowel Sounds. absent: Guarding, Rebound - Extremities Exam Extremities Exam: Normal Capillary Refill, Pedal Edema. absent: Calf Tenderness - Neurological Exam Neurological Exam: Alert, Awake, Oriented x3 - Skin Skin Exam: Dry, Warm Assessment and Plan - Assessment and Plan (Free Text) Assessment: Assessment: Sickle cell crisis Lower extremity pain and edema CHF. Elevated reticulocyte count/hyperbilirubinemia Asthma Cerebral palsy Plan: Follow-up reticulocyte count trend H&H Monitor for overt GI bleed Continue IV hydration Continue PPI Continue bowel regimen. may give extra dose of Miralax today DVT prophylaxis/SCDs out pt chelation as per hematology Seen and discussed with Dr. Terry. <Anoop Terry V - Last Filed: 11/08/16 20:05> Objective - Vital Signs/Intake and Output Vital Signs (last 24 hours): Temp Pulse Resp BP Pulse Ox 97 F L 98 H 18 109/76 95 11/08/16 11:54 11/08/16 11:54 11/08/16 11:54 11/08/16 17:59 11/07/16 06:00 Intake and Output: 11/08/16 11/09/16 18:59 06:59 Intake Total 300 Output Total 1200 Balance -900 - Medications Medications: Current Medications Carvedilol (Coreg) 12.5 mg PO BID [facility] Last Admin: 11/08/16 17:59 Dose: 12.5 mg Diphenhydramine HCl (Benadryl) 25 mg PO Q8H PRN PRN Reason: WITH DILAUDID Last Admin: 11/07/16 14:05 Dose: 25 mg Divalproex Sodium (Depakote Dr (*Bid*)) 250 mg PO TID [facility] PRN Reason: Protocol Last Admin: 11/08/16 17:59 Dose: 250 mg Folic Acid (Folic Acid) 1 mg PO DAILY [facility] Last Admin: 11/08/16 09:43 Dose: 1 mg Furosemide (Lasix) 20 mg PO DAILY [facility] Last Admin: 11/08/16 09:42 Dose: 20 mg Guaifenesin (Robitussin) 100 mg PO Q4H PRN PRN Reason: Cough Last Admin: 11/06/16 12:33 Dose: 100 mg Hydromorphone HCl (Dilaudid) 1 mg IVP Q4H PRN PRN Reason: Pain, Mild (1-3) Last Admin: 11/08/16 18:00 Dose: 1 mg Hydroxyurea (Hydrea) 500 mg PO DAILY [facility] Last Admin: 11/08/16 09:42 Dose: 500 mg Multivitamins (Thera Tab) 1 tab PO DAILY [facility] Last Admin: 11/08/16 09:42 Dose: 1 tab Pantoprazole Sodium (Protonix Ec Tab) 40 mg PO 0600 [facility] Last Admin: 11/08/16 05:25 Dose: 40 mg Polyethylene Glycol (Miralax) 17 gm PO DAILY [facility] Last Admin: 11/08/16 09:43 Dose: 17 gm Trazodone HCl (Desyrel) 50 mg PO HS [facility] Last Admin: 11/07/16 22:51 Dose: 50 mg - Labs Labs: 11/08/16 07:37 11/08/16 07:37 PT 15.9 Seconds (9.9-11.8) H 11/06/16 08:41 INR 1.47 (0.93-1.08) H 11/06/16 08:41 APTT 33.4 Seconds (23.7-30.8) H 11/06/16 08:41 Attending/Attestation - Attestation I have personally seen and examined this patient.: Yes I have fully participated in the care of the patient.: Yes I have reviewed all pertinent clinical information, including history, physical exam and plan: Yes Notes (Text): 11/08/16 20:05 p
[2016-11-08 11:55] VITALS: RESP 18
--- NOTE | 2016-11-08 14:23 | CP.PCM.PN ---
Subjective - Date & Time of Evaluation Date of Evaluation: 11/08/16 Time of Evaluation: 13:30 - Subjective Subjective: Infectious Disease Follow Up: November 08, 2016 36 yo AA female well known to me from previous hospitalizations at [facility] and [facility] presented with generalized pains and admitted for Sickle Cell vasoocclusive Crisis. Patient with lower extremity swelling. She again complains of diffuse body pains. Objective - Vital Signs/Intake and Output Vital Signs (last 24 hours): Temp Pulse Resp BP Pulse Ox 97 F L 98 H 18 101/78 95 11/08/16 11:54 11/08/16 11:54 11/08/16 11:54 11/08/16 11:54 11/07/16 06:00 Intake and Output: 11/08/16 11/08/16 06:59 18:59 Intake Total 240 Output Total 600 Balance -360 - Medications Medications: Current Medications Carvedilol (Coreg) 12.5 mg PO BID [facility] Diphenhydramine HCl (Benadryl) 25 mg PO Q8H PRN PRN Reason: WITH DILAUDID Last Admin: 11/07/16 14:05 Dose: 25 mg Divalproex Sodium (Depakote Dr (*Bid*)) 250 mg PO TID [facility] PRN Reason: Protocol Last Admin: 11/08/16 13:51 Dose: 250 mg Folic Acid (Folic Acid) 1 mg PO DAILY [facility] Last Admin: 11/08/16 09:43 Dose: 1 mg Furosemide (Lasix) 20 mg PO DAILY [facility] Last Admin: 11/08/16 09:42 Dose: 20 mg Guaifenesin (Robitussin) 100 mg PO Q4H PRN PRN Reason: Cough Last Admin: 11/06/16 12:33 Dose: 100 mg Hydromorphone HCl (Dilaudid) 1 mg IVP Q4H PRN PRN Reason: Pain, Mild (1-3) Last Admin: 11/08/16 13:51 Dose: 1 mg Hydroxyurea (Hydrea) 500 mg PO DAILY [facility] Last Admin: 11/08/16 09:42 Dose: 500 mg Multivitamins (Thera Tab) 1 tab PO DAILY [facility] Last Admin: 11/08/16 09:42 Dose: 1 tab Pantoprazole Sodium (Protonix Ec Tab) 40 mg PO 0600 [facility] Last Admin: 11/08/16 05:25 Dose: 40 mg Polyethylene Glycol (Miralax) 17 gm PO DAILY [facility] Last Admin: 11/08/16 09:43 Dose: 17 gm Trazodone HCl (Desyrel) 50 mg PO HS [facility] Last Admin: 11/07/16 22:51 Dose: 50 mg - Labs Labs: 11/08/16 07:37 11/08/16 07:37 PT 15.9 Seconds (9.9-11.8) H 11/06/16 08:41 INR 1.47 (0.93-1.08) H 11/06/16 08:41 APTT 33.4 Seconds (23.7-30.8) H 11/06/16 08:41 - Constitutional Appears: Non-toxic, No Acute Distress, Chronically Ill - Head Exam Head Exam: ATRAUMATIC, NORMOCEPHALIC - Eye Exam Eye Exam: EOMI, PERRL Pupil Exam: NORMAL ACCOMODATION, PERRL - ENT Exam ENT Exam: Mucous Membranes Moist, Normal External Ear Exam, TM's Normal Bilaterally - Neck Exam Neck Exam: Full ROM, Normal Inspection - Respiratory Exam Respiratory Exam: Clear to Ausculation Bilateral, NORMAL BREATHING PATTERN. absent: Rales, Rhonchi, Wheezes - Cardiovascular Exam Cardiovascular Exam: REGULAR RHYTHM, RRR, +S1, +S2 - GI/Abdominal Exam GI & Abdominal Exam: Soft, Normal Bowel Sounds. absent: Distended, Tenderness - Extremities Exam Extremities Exam: Full ROM, Normal Inspection - Neurological Exam Neurological Exam: Alert, Awake, CN II-XII Intact, Oriented x3 - Psychiatric Exam Psychiatric exam: Depressed, Flat Affect - Skin Skin Exam: Intact, Normal Color Assessment and Plan - Assessment and Plan (Free Text) Assessment: 36 yo AA female with leukocytosis as high as 15.8 presenting again with Sickle Cell Crisis. Patient with blood and urine cultures pending. Currently off of antibiotics. She continues to complain about generalized pains. Long history of Sickle Cell disease. Patient also with Iron Overload secondary to repeated transfusions of PBRCs in the recent past. Supportive care. She is awake and talkative today. Thank you for allowing me to participate in the care of the patient, we will follow with you.
--- NOTE | 2016-11-08 15:50 | PN ---
DATE: 11/08/2016 CARDIOLOGY FOLLOWUP SUBJECTIVE: The patient is more comfortable today. OBJECTIVE: VITAL SIGNS: Blood pressure 101/78, heart rates in the 90s, sinus rhythm. NECK: Negative JVD. LUNGS: Without rales. HEART: S1, S2. EXTREMITIES: Without edema. Hemoglobin is 8.4. Chemistries, BUN and creatinine unremarkable. LFTs are elevated. IMPRESSION: 1. Sickle cell disease. 2. Cardiomyopathy. 3. Anemia. 4. Status post correction of hypomagnesemia and hyperkalemia with resolution of her arrhythmia. Given these findings, we will increase her Coreg to 12.5 b.i.d. We will DC telemetry today.. Noé Valente MD
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
--- NOTE | 2016-11-08 20:12 | US ---
EXAM: US Abdomen Complete EXAM DATE/TIME: 11/08/2016 3:01 PM CLINICAL HISTORY: The patient age is 36 years old and is female; Pain and abnormal findings; Abnormal lab test; Elevated liver enzymes; Abdominal pain; Epigastric; Additional info: Elevated lfts, ruq pain Facility exam id and description: Us abd abdomen complete TECHNIQUE: Real-time ultrasound of the abdomen (complete) with image documentation. COMPARISON: CT - ABD PELVIS PO IV CONTRAST 12/22/2015 3:00:18 PM FINDINGS: Liver: The caudate lobe is enlarged measuring 5.9 x 4.2 cm. There is mild irregularity of hepatic contour. Heterogeneous increased echotexture is also visualized of the liver. These findings are consistent with the previously described cirrhosis. The liver measures 15.5 x 14.7 cm. Gallbladder: The gallbladder is surgically absent. Common bile duct: The common bile duct measures 0.5 cm in diameter, which is within normal limits. Pancreas: There is normal contour of the pancreas. The pancreas is heterogeneous in echogenicity, which is nonspecific. Kidneys: The right kidney measures 10.4 x 4.2 x 5.4 cm. The left kidney measures 9.7 x 6.0 x 5.5 cm. No shadowing stones. No hydronephrosis. Spleen: The spleen is poorly visualized. On the previous CT, the spleen is absent. Aorta: The visualized segment of the abdominal aorta is patent. There is a limited evaluation of the abdominal aorta. Inferior vena cava: The visualized segment of the IVC is patent. IMPRESSION: 1. The caudate lobe is enlarged measuring 5.9 x 4.2 cm. There is mild irregularity of hepatic contour. Heterogeneous increased echotexture is also visualized of the liver. These findings are consistent with the previously described cirrhosis. 2. The spleen is poorly visualized. On the previous CT, the spleen is absent. 3. Additional findings described above.
[2016-11-09] MEDS: HYDROmorphone 1 mg/ml ISec IVP PRN ×4 (00:52→20:46)
[2016-11-09] MEDS: Pantoprazole 40 mg EC Tab PO SCH (05:50)
[2016-11-09 07:23] LABS: ALB/GLOB RATIO 0.6 (1.1-1.8); ALKALINE PHOSPHATASE 178 U/L (38-126); ALT/SGPT 85 U/L (7-56); AST/SGOT 299 U/L (14-36); BILIRUBIN,TOTAL 4.9 mg/dL (0.2-1.3); BLOOD UREA NITROGEN 11 mg/dL (7-21); CARBON DIOXIDE 34 mmol/L (21-33); CHLORIDE 98 mmol/L (98-107); GFR AFRICAN-AMERICAN > 60; GLUCOSE,RANDOM 99 mg/dL (70-110); POTASSIUM 4.3 mmol/L (3.6-5.0); SODIUM 140 mmol/L (132-148)
[2016-11-09 07:42] LABS: MEAN CELL VOLUME 104.4 fl (80.0-105.0); MEAN CORPUSCULAR HEMOGLOBIN 36.9 pg (25.0-35.0); MEAN CORPUSCULAR HGB CONC 35.3 g/dl (31.0-37.0); MEAN PLATELET VOLUME 10.6 fl (7.0-11.0); PLATELET COUNT 184 10^3/uL (120.0-450.0); RED CELL DISTRIBUTION WIDTH 24.7 % (11.5-14.5); WHITE BLOOD COUNT 13.1 10^3/ul (4.5-11.0)
[2016-11-09 07:52] LABS: HEMATOCRIT 23.5 % (36.0-48.0)
[2016-11-09] MEDS: guaiFENesin 100 mg/5 ml Syrup UD PO PRN (09:35)
[2016-11-09] MEDS: Multivitamin Therapeutic Tab PO SCH (09:38)
[2016-11-09] MEDS: POLYETHYLENE GLYCOL 3350 17 GM/Dose PACKET PO SCH ×2 (09:39→18:09)
[2016-11-09] MEDS: Divalproex 250 mg DR (BID formulation) PO SCH ×3 (09:39→18:08)
[2016-11-09] MEDS ORDERED: Albuterol HFA 90 mcg/actuation (8 g) IH PRN (12:02)
--- NOTE | 2016-11-09 12:02 | CP.PCM.PN ---
Subjective - Date & Time of Evaluation Date of Evaluation: 11/09/16 Time of Evaluation: 08:15 - Subjective Subjective: Patient seen and examined at bedside. Appears comfortable on the phone. Complains of pedal edema. Review of Systems - Review of Systems All systems: reviewed and no additional remarkable complaints except - Constitutional Constitutional: Weakness. absent: Fever, Chills - EENT Eyes: absent: Blurred Vision - Cardiovascular Cardiovascular: absent: Chest Pain, Dyspnea on Exertion - Respiratory Respiratory: absent: Cough, Dyspnea - Gastrointestinal Gastrointestinal: absent: Abdominal Pain, Nausea, Vomiting - Genitourinary Genitourinary: absent: Pyuria - Musculoskeletal Musculoskeletal: As Par HPI, Muscle Cramps - Neurological Neurological: absent: Dizziness - Psychiatric Psychiatric: absent: Anxiety Objective - Vital Signs/Intake and Output Vital Signs (last 24 hours): Temp Pulse Resp BP Pulse Ox 98.6 F 94 H 18 95/56 L 96 11/09/16 07:30 11/09/16 07:30 11/09/16 07:30 11/09/16 09:38 11/09/16 07:30 Intake and Output: 11/09/16 11/09/16 06:59 18:59 Intake Total 0 Balance 0 - Medications Medications: Current Medications Carvedilol (Coreg) 12.5 mg PO BID [facility] Last Admin: 11/08/16 17:59 Dose: 12.5 mg Diphenhydramine HCl (Benadryl) 25 mg PO Q8H PRN PRN Reason: WITH DILAUDID Last Admin: 11/08/16 20:26 Dose: 25 mg Divalproex Sodium (Depakote Dr (*Bid*)) 250 mg PO TID [facility] PRN Reason: Protocol Last Admin: 11/09/16 09:39 Dose: 250 mg Folic Acid (Folic Acid) 1 mg PO DAILY [facility] Last Admin: 11/09/16 09:38 Dose: 1 mg Furosemide (Lasix) 20 mg PO DAILY [facility] Last Admin: 11/09/16 09:38 Dose: Not Given Guaifenesin (Robitussin) 100 mg PO Q4H PRN PRN Reason: Cough Last Admin: 11/09/16 09:35 Dose: 100 mg Hydromorphone HCl (Dilaudid) 1 mg IVP Q4H PRN PRN Reason: Pain, Mild (1-3) Last Admin: 11/09/16 05:50 Dose: 1 mg Hydroxyurea (Hydrea) 500 mg PO DAILY [facility] Last Admin: 11/09/16 10:27 Dose: 500 mg Multivitamins (Thera Tab) 1 tab PO DAILY [facility] Last Admin: 11/09/16 09:38 Dose: 1 tab Pantoprazole Sodium (Protonix Ec Tab) 40 mg PO 0600 [facility] Last Admin: 11/09/16 05:50 Dose: 40 mg Polyethylene Glycol (Miralax) 17 gm PO DAILY [facility] Last Admin: 11/09/16 09:39 Dose: 17 gm Trazodone HCl (Desyrel) 50 mg PO HS [facility] Last Admin: 11/09/16 00:52 Dose: 50 mg - Labs Labs: 11/09/16 06:55 11/09/16 06:55 PT 15.9 Seconds (9.9-11.8) H 11/06/16 08:41 INR 1.47 (0.93-1.08) H 11/06/16 08:41 APTT 33.4 Seconds (23.7-30.8) H 11/06/16 08:41 - Constitutional Appears: Well, No Acute Distress - Head Exam Head Exam: NORMAL INSPECTION - Eye Exam Eye Exam: EOMI - ENT Exam ENT Exam: Normal Exam - Neck Exam Neck Exam: Full ROM - Respiratory Exam Respiratory Exam: Clear to Ausculation Bilateral. absent: Rhonchi, Wheezes - Cardiovascular Exam Cardiovascular Exam: REGULAR RHYTHM, +S1, +S2 - GI/Abdominal Exam GI & Abdominal Exam: Soft, Normal Bowel Sounds. absent: Tenderness, Organomegaly - Extremities Exam Additional comments: pedal edema - Neurological Exam Neurological Exam: Alert, Awake, Oriented x3 - Psychiatric Exam Psychiatric exam: Normal Mood Assessment and Plan - Assessment and Plan (Free Text) Plan: This is a 36 year old female with past medical history of sickle cell disease, bipolar, asthma and CHF who presented with sickle cell crisis and CHF. 1. Sickle cell crisis - Continue with analgesics, folic acid, hydroxyurea and multivitamin. Will taper dilaudid to 1 mg q6h prn. Hematology is following as well. 2. Sickle cell anemia - Hemoglobin today is 8.3 with reticulocyte count of 18.9. Will continue to monitor. 3. CHF / Tachycardia - Continue with po lasix and coreg as per cardiology. 4. Transaminitis - GI is following. Abdominal ultrasound was reviewed which showed findings consistent with previously described cirrhosis. Will continue to monitor LFTs closely. 5. Bipolar - Patient is on depakote and trazodone. Continue with protonix for GI prophylaxis and SCDs for DVT prophylaxis.
[2016-11-09] MEDS ORDERED: Albuterol 0.083% Inhal Sol (2.5 mg/3 mL) UD IH PRN (12:09)
--- NOTE | 2016-11-09 17:11 | CP.PCM.PN ---
Subjective - Date & Time of Evaluation Date of Evaluation: 11/09/16 Time of Evaluation: 16:20 - Subjective Subjective: Infectious Disease Follow Up: November 09, 2016 36 yo AA female well known to me from previous hospitalizations at [facility] and [facility] presented with generalized pains and admitted for Sickle Cell vasoocclusive Crisis. Patient with lower extremity swelling. She again complains of diffuse body pains. Leukocytosis slowly improving. Now down to 13.1. Objective - Vital Signs/Intake and Output Vital Signs (last 24 hours): Temp Pulse Resp BP Pulse Ox 98.6 F 94 H 18 95/56 L 96 11/09/16 07:30 11/09/16 07:30 11/09/16 07:30 11/09/16 09:38 11/09/16 07:30 Intake and Output: 11/09/16 11/09/16 06:59 18:59 Intake Total 0 360 Balance 0 360 - Medications Medications: Current Medications Albuterol Sulfate (Albuterol 0.083% Inhal Rika (2.5 Mg/3 Ml) Ud) 2.5 mg IH TID PRN PRN Reason: Shortness of Breath Carvedilol (Coreg) 12.5 mg PO BID [facility] Last Admin: 11/09/16 12:29 Dose: Not Given Diphenhydramine HCl (Benadryl) 25 mg PO Q8H PRN PRN Reason: WITH DILAUDID Last Admin: 11/09/16 12:20 Dose: 25 mg Divalproex Sodium (Depakote Dr (*Bid*)) 250 mg PO TID [facility] PRN Reason: Protocol Last Admin: 11/09/16 14:24 Dose: 250 mg Folic Acid (Folic Acid) 1 mg PO DAILY [facility] Last Admin: 11/09/16 09:38 Dose: 1 mg Furosemide (Lasix) 20 mg PO DAILY [facility] Last Admin: 11/09/16 09:38 Dose: Not Given Guaifenesin (Robitussin) 100 mg PO Q4H PRN PRN Reason: Cough Last Admin: 11/09/16 09:35 Dose: 100 mg Hydromorphone HCl (Dilaudid) 1 mg IVP Q6H PRN PRN Reason: Pain, moderate (4-7) Last Admin: 11/09/16 12:17 Dose: 1 mg Hydroxyurea (Hydrea) 500 mg PO DAILY [facility] Last Admin: 11/09/16 10:27 Dose: 500 mg Multivitamins (Thera Tab) 1 tab PO DAILY [facility] Last Admin: 11/09/16 09:38 Dose: 1 tab Pantoprazole Sodium (Protonix Ec Tab) 40 mg PO 0600 [facility] Last Admin: 11/09/16 05:50 Dose: 40 mg Polyethylene Glycol (Miralax) 17 gm PO DAILY [facility] Last Admin: 11/09/16 09:39 Dose: 17 gm Trazodone HCl (Desyrel) 50 mg PO HS [facility] Last Admin: 11/09/16 00:52 Dose: 50 mg - Labs Labs: 11/09/16 06:55 11/09/16 06:55 PT 15.9 Seconds (9.9-11.8) H 11/06/16 08:41 INR 1.47 (0.93-1.08) H 11/06/16 08:41 APTT 33.4 Seconds (23.7-30.8) H 11/06/16 08:41 - Constitutional Appears: Non-toxic, No Acute Distress, Chronically Ill - Head Exam Head Exam: ATRAUMATIC, NORMOCEPHALIC - Eye Exam Eye Exam: EOMI, PERRL Pupil Exam: NORMAL ACCOMODATION, PERRL - ENT Exam ENT Exam: Mucous Membranes Moist, Normal External Ear Exam, TM's Normal Bilaterally - Neck Exam Neck Exam: Full ROM, Normal Inspection - Respiratory Exam Respiratory Exam: Clear to Ausculation Bilateral, NORMAL BREATHING PATTERN. absent: Decreased Breath Sounds, Rales, Rhonchi - Cardiovascular Exam Cardiovascular Exam: REGULAR RHYTHM, RRR, +S1, +S2 - GI/Abdominal Exam GI & Abdominal Exam: Soft, Normal Bowel Sounds. absent: Distended, Tenderness - Extremities Exam Extremities Exam: Full ROM, Normal Inspection - Neurological Exam Neurological Exam: Alert, Awake, CN II-XII Intact, Oriented x3 - Psychiatric Exam Psychiatric exam: Flat Affect, Normal Mood - Skin Skin Exam: Intact, Normal Color Assessment and Plan - Assessment and Plan (Free Text) Assessment: 36 yo AA female with leukocytosis as high as 15.8 presenting again with Sickle Cell Crisis. Patient with blood and urine cultures pending. Currently off of antibiotics. She continues to complain about generalized pains. Long history of Sickle Cell disease. Patient also with Iron Overload secondary to repeated transfusions of PBRCs in the recent past. Supportive care. She remains awake and talkative today. Thank you for allowing me to participate in the care of the patient, we will follow with you.
[2016-11-10] MEDS: Pantoprazole 40 mg EC Tab PO SCH (05:07)
[2016-11-10] MEDS: HYDROmorphone 1 mg/ml ISec IVP PRN ×2 (05:07→14:47)
[2016-11-10 08:44] LABS: HEMATOCRIT 24.7 % (36.0-48.0); MEAN CELL VOLUME 105.6 fl (80.0-105.0); MEAN CORPUSCULAR HEMOGLOBIN 36.8 pg (25.0-35.0); MEAN CORPUSCULAR HGB CONC 34.8 g/dl (31.0-37.0); MEAN PLATELET VOLUME 10.8 fl (7.0-11.0); PLATELET COUNT 170 10^3/uL (120.0-450.0); RED CELL DISTRIBUTION WIDTH 25.4 % (11.5-14.5); WHITE BLOOD COUNT 10.9 10^3/ul (4.5-11.0)
[2016-11-10 08:49] LABS: RETIC% 17.12 % (0.5-1.5)
[2016-11-10 09:11] LABS: ALB/GLOB RATIO 0.6 (1.1-1.8); ALKALINE PHOSPHATASE 193 U/L (38-126); ALT/SGPT 81 U/L (7-56); AST/SGOT 284 U/L (14-36); BILIRUBIN,TOTAL 4.9 mg/dL (0.2-1.3); BLOOD UREA NITROGEN 12 mg/dL (7-21); CALCIUM 8.2 mg/dL (8.4-10.5); CARBON DIOXIDE 33 mmol/L (21-33); CHLORIDE 98 mmol/L (98-107); GFR AFRICAN-AMERICAN > 60; GLUCOSE,RANDOM 99 mg/dL (70-110); POTASSIUM 4.2 mmol/L (3.6-5.0); SODIUM 138 mmol/L (132-148); TOTAL PROTEIN 7.3 g/dL (5.8-8.3)
[2016-11-10] MEDS: guaiFENesin 100 mg/5 ml Syrup UD PO PRN (10:03)
[2016-11-10] MEDS: Divalproex 250 mg DR (BID formulation) PO SCH ×3 (10:03→17:43)
[2016-11-10] MEDS: Multivitamin Therapeutic Tab PO SCH (10:03)
[2016-11-10] MEDS: POLYETHYLENE GLYCOL 3350 17 GM/Dose PACKET PO SCH ×2 (10:05→17:43)
--- NOTE | 2016-11-10 14:05 | CP.PCM.PN ---
Subjective - Date & Time of Evaluation Date of Evaluation: 11/10/16 Time of Evaluation: 13:59 - Subjective Subjective: Infectious Disease Follow Up: November 10, 2016 36 yo AA female well known to me from previous hospitalizations at [facility] and [facility] presented with generalized pains and admitted for Sickle Cell vasoocclusive Crisis. Patient with lower extremity swelling. She again complains of diffuse body pains. Leukocytosis slowly improving. Now down to 10.9. Acinectobacter and gram positive cocci in urine culture. Objective - Vital Signs/Intake and Output Vital Signs (last 24 hours): Temp Pulse Resp BP Pulse Ox 99.4 F 69 18 110/58 L 93 L 11/10/16 08:02 11/10/16 08:02 11/10/16 08:02 11/10/16 10:04 11/10/16 08:02 Intake and Output: 11/10/16 11/10/16 06:59 18:59 Intake Total 120 Balance 120 - Medications Medications: Current Medications Albuterol Sulfate (Albuterol 0.083% Inhal Rika (2.5 Mg/3 Ml) Ud) 2.5 mg IH TID PRN PRN Reason: Shortness of Breath Carvedilol (Coreg) 12.5 mg PO BID [facility] Last Admin: 11/10/16 10:03 Dose: 12.5 mg Ciprofloxacin (Cipro) 500 mg PO Q12 ARLETTE PRN Reason: Protocol Stop: 11/11/16 13:58 Diphenhydramine HCl (Benadryl) 25 mg PO Q8H PRN PRN Reason: WITH DILAUDID Last Admin: 11/10/16 07:09 Dose: 25 mg Divalproex Sodium (Depakote Dr (*Bid*)) 250 mg PO TID ARLETTE PRN Reason: Protocol Last Admin: 11/10/16 13:55 Dose: 250 mg Folic Acid (Folic Acid) 1 mg PO DAILY ARLETTE Last Admin: 11/10/16 10:03 Dose: 1 mg Furosemide (Lasix) 20 mg PO DAILY ARLETTE Last Admin: 11/10/16 10:04 Dose: 20 mg Guaifenesin (Robitussin) 100 mg PO Q4H PRN PRN Reason: Cough Last Admin: 11/10/16 10:03 Dose: 100 mg Hydromorphone HCl (Dilaudid) 1 mg IVP Q6H PRN PRN Reason: Pain, moderate (4-7) Last Admin: 11/10/16 05:07 Dose: 1 mg Hydroxyurea (Hydrea) 500 mg PO DAILY [facility] Last Admin: 11/10/16 12:44 Dose: 500 mg Multivitamins (Thera Tab) 1 tab PO DAILY [facility] Last Admin: 11/10/16 10:03 Dose: 1 tab Pantoprazole Sodium (Protonix Ec Tab) 40 mg PO 0600 [facility] Last Admin: 11/10/16 05:07 Dose: 40 mg Polyethylene Glycol (Miralax) 17 gm PO BID [facility] Last Admin: 11/10/16 10:05 Dose: 17 gm Trazodone HCl (Desyrel) 50 mg PO HS [facility] Last Admin: 11/09/16 22:51 Dose: 50 mg - Labs Labs: 11/10/16 08:30 11/10/16 08:30 PT 15.9 Seconds (9.9-11.8) H 11/06/16 08:41 INR 1.47 (0.93-1.08) H 11/06/16 08:41 APTT 33.4 Seconds (23.7-30.8) H 11/06/16 08:41 - Constitutional Appears: Non-toxic, No Acute Distress, Chronically Ill - Head Exam Head Exam: ATRAUMATIC, NORMOCEPHALIC - Eye Exam Eye Exam: EOMI, PERRL Pupil Exam: NORMAL ACCOMODATION, PERRL - ENT Exam ENT Exam: Mucous Membranes Moist, Normal External Ear Exam, TM's Normal Bilaterally - Neck Exam Neck Exam: Full ROM, Normal Inspection - Respiratory Exam Respiratory Exam: Clear to Ausculation Bilateral, NORMAL BREATHING PATTERN. absent: Rales, Rhonchi, Wheezes - Cardiovascular Exam Cardiovascular Exam: REGULAR RHYTHM, RRR, +S1, +S2 - GI/Abdominal Exam GI & Abdominal Exam: Soft, Normal Bowel Sounds. absent: Distended, Tenderness - Extremities Exam Extremities Exam: Full ROM, Normal Inspection - Neurological Exam Neurological Exam: Alert, Awake, CN II-XII Intact, Oriented x3 - Psychiatric Exam Psychiatric exam: Flat Affect, Normal Mood - Skin Skin Exam: Intact, Normal Color Assessment and Plan - Assessment and Plan (Free Text) Assessment: 36 yo AA female with leukocytosis as high as 15.8 presenting again with Sickle Cell Crisis. Patient with blood and urine cultures pending. Currently off of antibiotics. She continues to complain about generalized pains. Long history of Sickle Cell disease. Patient also with Iron Overload secondary to repeated transfusions of PBRCs in the recent past. Supportive care. She remains awake and talkative today. Started Cipro for the Acinectobacter and Gram positive cocci found in the urine cultures. Thank you for allowing me to participate in the care of the patient, we will follow with you.
--- NOTE | 2016-11-10 16:04 | CP.PCM.DIS ---
<Esteban Aly - Last Filed: 11/10/16 19:20> Provider - Provider Date of Admission: 11/04/16 21:30 Attending physician: Marco Green MD Primary care physician: Charissa Gill MD Consults: Cardio: Valente Heme: Clawson Psych: Fadia ID: Go Time Spent in preparation of Discharge (in minutes): 45 Diagnosis - Discharge Diagnosis (1) CHF (congestive heart failure) Status: Chronic (2) Sickle cell pain crisis Status: Chronic Hospital Course - Lab Results Lab Results: Micro Results 11/07/16 06:20 Urine,Clean Catch Urine Culture - Preliminary Acinetobacter Baumannii Gram Positive Cocci 11/06/16 20:30 Blood-Venous Blood Culture - Preliminary NO GROWTH AFTER 3 DAYS 11/06/16 20:30 Blood-Venous Blood Culture - Preliminary NO GROWTH AFTER 3 DAYS Most Recent Lab Values WBC 10.9 10^3/ul (4.5-11.0) 11/10/16 08:30 RBC 2.34 10^6/uL (3.5-6.1) L 11/10/16 08:30 Hgb 8.6 g/dL (12.0-16.0) L 11/10/16 08:30 Hct 24.7 % (36.0-48.0) L 11/10/16 08:30 MCV 105.6 fl (80.0-105.0) H 11/10/16 08:30 MCH 36.8 pg (25.0-35.0) H 11/10/16 08:30 MCHC 34.8 g/dl (31.0-37.0) 11/10/16 08:30 RDW 25.4 % (11.5-14.5) H 11/10/16 08:30 Plt Count 170 10^3/uL (120.0-450.0) 11/10/16 08:30 MPV 10.8 fl (7.0-11.0) 11/10/16 08:30 Gran % 63.3 % (50.0-68.0) 11/05/16 06:30 Lymph % (Auto) 24.4 % (22.0-35.0) 11/05/16 06:30 Blair % (Auto) 11.2 % (1.0-6.0) H 11/05/16 06:30 Eos % (Auto) 0.8 % (1.5-5.0) L 11/05/16 06:30 Baso % (Auto) 0.3 % (0.0-3.0) 11/05/16 06:30 Gran # 8.05 (1.4-6.5) H 11/05/16 06:30 Lymph # 3.1 (1.2-3.4) 11/05/16 06:30 Blair # 1.4 (0.1-0.6) H 11/05/16 06:30 Eos # 0.1 (0.0-0.7) 11/05/16 06:30 Baso # 0.04 K/mm3 (0.0-2.0) 11/05/16 06:30 Retic Count 17.12 % (0.5-1.5) H* 11/10/16 08:30 PT 15.9 Seconds (9.9-11.8) H 11/06/16 08:41 INR 1.47 (0.93-1.08) H 11/06/16 08:41 APTT 33.4 Seconds (23.7-30.8) H 11/06/16 08:41 pO2 50 mm/Hg (30-55) 11/06/16 20:30 VBG pH 7.38 (7.32-7.43) 11/06/16 20:30 VBG pCO2 56.0 (40-60) 11/06/16 20:30 VBG HCO3 33.1 mmol/l (21-28) H 11/06/16 20:30 VBG Total CO2 34.8 mmol.L (22-28) H 11/06/16 20:30 VBG O2 Sat (Calc) 85.4 % (40-65) H 11/06/16 20:30 VBG Base Excess 6.9 mmol/L (0.0-2.0) H 11/06/16 20:30 VBG Potassium 4.2 mmol/L (3.6-5.2) 11/06/16 20:30 Sodium 140.0 mmol/L (132-148) 11/06/16 20:30 Chloride 105.0 mmol/L (98-107) 11/06/16 20:30 Glucose 121 mg/dl (65-105) H 11/06/16 20:30 Lactate 1.8 mmol/L (0.7-2.1) 11/06/16 20:30 FiO2 21.0 % 11/06/16 20:30 Sodium 138 mmol/L (132-148) 11/10/16 08:30 Potassium 4.2 mmol/L (3.6-5.0) 11/10/16 08:30 Chloride 98 mmol/L (98-107) 11/10/16 08:30 Carbon Dioxide 33 mmol/L (21-33) 11/10/16 08:30 Anion Gap 11 (10-20) 11/10/16 08:30 BUN 12 mg/dL (7-21) 11/10/16 08:30 Creatinine 0.6 mg/dL (0.5-1.4) 11/10/16 08:30 Est GFR ( Amer) > 60 11/10/16 08:30 Est GFR (Non-Af Amer) > 60 11/10/16 08:30 POC Glucose (mg/dL) 120 mg/dL (65-110) H 11/08/16 07:33 Random Glucose 99 mg/dL (70-110) 11/10/16 08:30 Calcium 8.2 mg/dL (8.4-10.5) L 11/10/16 08:30 Phosphorus 3.3 mg/dL (2.5-4.5) 11/08/16 10:28 Magnesium 1.9 mg/dL (1.7-2.2) 11/08/16 10:28 Total Bilirubin 4.9 mg/dL (0.2-1.3) H 11/10/16 08:30 Direct Bilirubin 3.8 mg/dL (0.0-0.4) H 11/07/16 07:00 AST 284 U/L (14-36) H 11/10/16 08:30 ALT 81 U/L (7-56) H 11/10/16 08:30 Alkaline Phosphatase 193 U/L (38-126) H 11/10/16 08:30 Troponin I 0.06 ng/mL 11/07/16 07:00 NT-Pro-B Natriuret Pep 4070 pg/mL (0-450) H 11/04/16 18:05 Total Protein 7.3 g/dL (5.8-8.3) 11/10/16 08:30 Albumin 2.9 g/dL (3.0-4.8) L 11/10/16 08:30 Globulin 4.5 gm/dL 11/10/16 08:30 Albumin/Globulin Ratio 0.6 (1.1-1.8) L 11/10/16 08:30 Venous Blood Potassium 4.2 mmol/L (3.6-5.2) 11/06/16 20:30 Urine Color Yellow (YELLOW) 11/07/16 06:20 Urine Appearance Sl cloudy (CLEAR) 11/07/16 06:20 Urine pH 6.0 (4.7-8.0) 11/07/16 06:20 Ur Specific Falconer 1.010 (1.005-1.035) 11/07/16 06:20 Urine Protein Negative mg/dL (<30 mg/dL) 11/07/16 06:20 Urine Glucose (UA) Negative mg/dL (NEGATIVE) 11/07/16 06:20 Urine Ketones Negative mg/dL (NEGATIVE) 11/07/16 06:20 Urine Blood Large (NEGATIVE) H 11/07/16 06:20 Urine Nitrate Negative (NEGATIVE) 11/07/16 06:20 Urine Bilirubin Small (NEGATIVE) H 11/07/16 06:20 Urine Urobilinogen 1.0 E.U./dL (<1 E.U./dL) H 11/07/16 06:20 Ur Leukocyte Esterase Small Luz/uL (NEGATIVE) H 11/07/16 06:20 Urine RBC 1 - 3 /hpf (0-2) 11/07/16 06:20 Urine WBC 2 - 5 /hpf (0-6) 11/07/16 06:20 Ur Epithelial Cells 3 - 4 /hpf (0-5) 11/07/16 06:20 Urine Bacteria Few (NEG) 11/07/16 06:20 Urine HCG, Qual Negative (NEGATIVE) 11/08/16 08:25 Blood Type B POSITIVE 11/05/16 08:50 Antibody Screen Negative 11/05/16 08:50 Crossmatch See Detail 11/05/16 08:50 BBK History Checked Patient has bt 11/05/16 08:50 - Hospital Course Hospital Course: This is a 36 year old female with past medical history of sickle cell disease, bipolar, asthma and CHF who presented with sickle cell crisis and CHF exacerbation. Lower extremity US on admission showed no evidence of DVT. LE arterial US showed normal PVT waveforms. CANDACE not obtainable due to calcifications. Latest EKG showed Normal sinus rhythm with T wave inversions in V3, V4,V5,V6. CT abd/pelvis showed enlarged caudate lobe, mild irregularity of hepatic contour. Heterogenous increased echotexture (chronic findings) poorly visiualized spleen (absent on previous CT). Patient also had leukocytosis on admission, [place] 4070, and small leuk es in the urine. Urine cultures grew Acinetobacter Baumannii, and Gram positive cocci. She will go home with PO Ciprofloxacin for treatment of UTI. Patient was treated conservatively with fluid restriction and low dose diuretics. Reticulocyte count reduced from 25.68 on admission to 17.12 on day of discharge. Leukocytosis resolved, lower ext. edema resolved. Hospital course was complicated by 2 Rapid responses. 1st rapid response (11/05) was called for HR of 180 which was treated with adenosine. 2nd rapid response was called for 5 beats of V-tach. Patient was hemodynamically stable at the time and had no complaints. She was treated with Lopressor 5. She will follow up with PMD within one week. Patient is agreeable with plan and medications. Patient seen, reviewed, and discussed with Attending Esteban Aly PGY-1 - Date & Time of H&P Date of H&P: 11/10/16 Time of H&P: 11:10 Discharge Exam - Head Exam Head Exam: ATRAUMATIC, NORMOCEPHALIC - Eye Exam Eye Exam: EOMI, Normal appearance - ENT Exam ENT Exam: Mucous Membranes Moist - Respiratory Exam Respiratory Exam: Clear to PA & Lateral - Cardiovascular Exam Cardiovascular Exam: RRR, +S1, +S2 - Extremities Exam Additional comments: No pedal edema - Neurological Exam Neurological exam: Alert, Oriented x3 - Psychiatric Exam Psychiatric exam: Normal Affect, Normal Mood Discharge Plan - Discharge Medications Prescriptions: Ciprofloxacin [Cipro] 500 mg PO Q12 #20 tab - Follow Up Plan Condition: STABLE Disposition: HOME/ ROUTINE Instructions: Heart Failure (DC), Sickle Cell Crisis (DC), Ascites (DC), Edema (GEN) Additional Instructions: Follow up with PMD (Dr. Gill) within 1 week Complete antibiotic as prescribed Limit salt intake to 2300mg a day. Referrals: Charissa Gill MD [Primary Care Provider] - <Marco Green - Last Filed: 11/11/16 16:32> Provider - Provider Date of Admission: 11/04/16 21:30 Attending physician: Marco Green MD Primary care physician: Charissa Gill MD Hospital Course - Lab Results Lab Results: Micro Results 11/07/16 06:20 Urine,Clean Catch Urine Culture - Final Acinetobacter Baumannii Enterococcus Avium 11/06/16 20:30 Blood-Venous Blood Culture - Preliminary NO GROWTH AFTER 4 DAYS 11/06/16 20:30 Blood-Venous Blood Culture - Preliminary NO GROWTH AFTER 4 DAYS Most Recent Lab Values WBC 10.9 10^3/ul (4.5-11.0) 11/10/16 08:30 RBC 2.34 10^6/uL (3.5-6.1) L 11/10/16 08:30 Hgb 8.6 g/dL (12.0-16.0) L 11/10/16 08:30 Hct 24.7 % (36.0-48.0) L 11/10/16 08:30 MCV 105.6 fl (80.0-105.0) H 11/10/16 08:30 MCH 36.8 pg (25.0-35.0) H 11/10/16 08:30 MCHC 34.8 g/dl (31.0-37.0) 11/10/16 08:30 RDW 25.4 % (11.5-14.5) H 11/10/16 08:30 Plt Count 170 10^3/uL (120.0-450.0) 11/10/16 08:30 MPV 10.8 fl (7.0-11.0) 11/10/16 08:30 Gran % 63.3 % (50.0-68.0) 11/05/16 06:30 Lymph % (Auto) 24.4 % (22.0-35.0) 11/05/16 06:30 Blair % (Auto) 11.2 % (1.0-6.0) H 11/05/16 06:30 Eos % (Auto) 0.8 % (1.5-5.0) L 11/05/16 06:30 Baso % (Auto) 0.3 % (0.0-3.0) 11/05/16 06:30 Gran # 8.05 (1.4-6.5) H 11/05/16 06:30 Lymph # 3.1 (1.2-3.4) 11/05/16 06:30 Blair # 1.4 (0.1-0.6) H 11/05/16 06:30 Eos # 0.1 (0.0-0.7) 11/05/16 06:30 Baso # 0.04 K/mm3 (0.0-2.0) 11/05/16 06:30 Retic Count 17.12 % (0.5-1.5) H* 11/10/16 08:30 PT 15.9 Seconds (9.9-11.8) H 11/06/16 08:41 INR 1.47 (0.93-1.08) H 11/06/16 08:41 APTT 33.4 Seconds (23.7-30.8) H 11/06/16 08:41 pO2 50 mm/Hg (30-55) 11/06/16 20:30 VBG pH 7.38 (7.32-7.43) 11/06/16 20:30 VBG pCO2 56.0 (40-60) 11/06/16 20:30 VBG HCO3 33.1 mmol/l (21-28) H 11/06/16 20:30 VBG Total CO2 34.8 mmol.L (22-28) H 11/06/16 20:30 VBG O2 Sat (Calc) 85.4 % (40-65) H 11/06/16 20:30 VBG Base Excess 6.9 mmol/L (0.0-2.0) H 11/06/16 20:30 VBG Potassium 4.2 mmol/L (3.6-5.2) 11/06/16 20:30 Sodium 140.0 mmol/L (132-148) 11/06/16 20:30 Chloride 105.0 mmol/L (98-107) 11/06/16 20:30 Glucose 121 mg/dl (65-105) H 11/06/16 20:30 Lactate 1.8 mmol/L (0.7-2.1) 11/06/16 20:30 FiO2 21.0 % 11/06/16 20:30 Sodium 138 mmol/L (132-148) 11/10/16 08:30 Potassium 4.2 mmol/L (3.6-5.0) 11/10/16 08:30 Chloride 98 mmol/L (98-107) 11/10/16 08:30 Carbon Dioxide 33 mmol/L (21-33) 11/10/16 08:30 Anion Gap 11 (10-20) 11/10/16 08:30 BUN 12 mg/dL (7-21) 11/10/16 08:30 Creatinine 0.6 mg/dL (0.5-1.4) 11/10/16 08:30 Est GFR ( Amer) > 60 11/10/16 08:30 Est GFR (Non-Af Amer) > 60 11/10/16 08:30 POC Glucose (mg/dL) 120 mg/dL (65-110) H 11/08/16 07:33 Random Glucose 99 mg/dL (70-110) 11/10/16 08:30 Calcium 8.2 mg/dL (8.4-10.5) L 11/10/16 08:30 Phosphorus 3.3 mg/dL (2.5-4.5) 11/08/16 10:28 Magnesium 1.9 mg/dL (1.7-2.2) 11/08/16 10:28 Total Bilirubin 4.9 mg/dL (0.2-1.3) H 11/10/16 08:30 Direct Bilirubin 3.8 mg/dL (0.0-0.4) H 11/07/16 07:00 AST 284 U/L (14-36) H 11/10/16 08:30 ALT 81 U/L (7-56) H 11/10/16 08:30 Alkaline Phosphatase 193 U/L (38-126) H 11/10/16 08:30 Troponin I 0.06 ng/mL 11/07/16 07:00 NT-Pro-B Natriuret Pep 4070 pg/mL (0-450) H 11/04/16 18:05 Total Protein 7.3 g/dL (5.8-8.3) 11/10/16 08:30 Albumin 2.9 g/dL (3.0-4.8) L 11/10/16 08:30 Globulin 4.5 gm/dL 11/10/16 08:30 Albumin/Globulin Ratio 0.6 (1.1-1.8) L 11/10/16 08:30 Venous Blood Potassium 4.2 mmol/L (3.6-5.2) 11/06/16 20:30 Urine Color Yellow (YELLOW) 11/07/16 06:20 Urine Appearance Sl cloudy (CLEAR) 11/07/16 06:20 Urine pH 6.0 (4.7-8.0) 11/07/16 06:20 Ur Specific Falconer 1.010 (1.005-1.035) 11/07/16 06:20 Urine Protein Negative mg/dL (<30 mg/dL) 11/07/16 06:20 Urine Glucose (UA) Negative mg/dL (NEGATIVE) 11/07/16 06:20 Urine Ketones Negative mg/dL (NEGATIVE) 11/07/16 06:20 Urine Blood Large (NEGATIVE) H 11/07/16 06:20 Urine Nitrate Negative (NEGATIVE) 11/07/16 06:20 Urine Bilirubin Small (NEGATIVE) H 11/07/16 06:20 Urine Urobilinogen 1.0 E.U./dL (<1 E.U./dL) H 11/07/16 06:20 Ur Leukocyte Esterase Small Luz/uL (NEGATIVE) H 11/07/16 06:20 Urine RBC 1 - 3 /hpf (0-2) 11/07/16 06:20 Urine WBC 2 - 5 /hpf (0-6) 11/07/16 06:20 Ur Epithelial Cells 3 - 4 /hpf (0-5) 11/07/16 06:20 Urine Bacteria Few (NEG) 11/07/16 06:20 Urine HCG, Qual Negative (NEGATIVE) 11/08/16 08:25 Blood Type B POSITIVE 11/05/16 08:50 Antibody Screen Negative 11/05/16 08:50 Crossmatch See Detail 11/05/16 08:50 BBK History Checked Patient has bt 11/05/16 08:50 Attending/Attestation - Attestation I have personally seen and examined this patient.: Yes I have fully participated in the care of the patient.: Yes I have reviewed all pertinent clinical information, including history, physical exam and plan: Yes Notes (Text): 11/11/16 16:29 36 year old female with past medical history of sickle cell disease, bipolar, asthma and CHF who presented with sickle cell crisis and CHF. She was seen by cardiology and hematology. Her symptoms began to improve. She was also started on antibiotics for UTI. She was being followed by GI for elevated LFTs. Patient is discharged home to follow up with her pmd. Follow up with dental aide. Recommended to monitor LFTs closely; if persistently elevated may need to decrease depakote dose. Marco Green MD Hospitalist.
[2016-11-10 18:12] VITALS: BP 100/70; PULSE 92; TEMP 98.7; O2SAT 99
== END 2016-11-10 19:25 | disposition home or self-care (01) | DRG 574 ==
LOC: ED 16:06 → ERH 21:30 → 3RNO 22:58 → 2RSO 11-06 19:03 → 5RNO 11-08 15:15
PROVIDERS: ADMIT Internal Medicine; ATTEND Internal Medicine
PROC: 30233N1 Transfusion of Nonautologous Red Blood Cells into Peripheral Vein, Percutaneous Approach (ICD-10-PCS; principal; 2016-11-06)
DX: D57.00 Hb-SS disease with crisis, unspecified (principal); I50.22 Chronic systolic (congestive) heart failure; I47.2 Ventricular tachycardia; I42.0 Dilated cardiomyopathy; I11.0 Hypertensive heart disease with heart failure; E87.6 Hypokalemia; I07.1 Rheumatic tricuspid insufficiency; E83.111 Hemochromatosis due to repeated red blood cell transfusions; I27.2 Other secondary pulmonary hypertension; J45.909 Unspecified asthma, uncomplicated; G80.9 Cerebral palsy, unspecified; E83.42 Hypomagnesemia; F31.9 Bipolar disorder, unspecified; Z87.891 Personal history of nicotine dependence; Z88.6 Allergy status to analgesic agent

== ENCOUNTER 2016-11-11 20:35 | Inpatient (IN) | payer OTHER ==
[2016-11-11 20:41] VITALS: BMI 19.9
[2016-11-11] MEDS ORDERED: Morphine 4 mg/ml ISec IVP STA (21:10)
[2016-11-11] MEDS ORDERED: DiphenhydrAMINE 50 mg/ml Inj IVP STA (21:12)
[2016-11-11] MEDS ORDERED: HYDROmorphone 2 mg/ml ISec IVP STA (21:12)
--- NOTE | 2016-11-11 21:14 | ED PDOC ---
Arrival/HPI - History of Present Illness Time/Duration: 4-6 hours Symptom Onset: Gradual Symptom Course: Worsening Quality: Aching, Cramping Severity Level: 8 Activities at Onset: Rest Context: Home <Shahla Gannon - Last Filed: 11/11/16 21:50> <Melody Barreto - Last Filed: 11/11/16 22:23> - General Chief Complaint: GI Problem Time Seen by Provider: 11/11/16 20:37 - History of Present Illness Narrative History of Present Illness (Text): 11/11/16 21:16 This is a 36Y F with PMH of sickle cell disease, bipolar disorder, asthma and CHF who is here for nausea, vomiting and diarrhea x 1 day. She was discharged from [facility] [place] yesterday for CHF exacerbation and sickle cell crisis. She reports having RUQ abdominal pain that does not radiate. She has history of cholecystectomy. She has been vomiting up bile and has been nauseous. Her diarrhea is not dark in color. She denies CP, SOB, numbness/tingling, fever, chills, dysuria or hematuria. She was able to eat at 5hrs ago without any issues. She denies having any new foods or anyone with similar symptoms at home. (Shahla Gannon) Past Medical History - Provider Review Nursing Documentation Reviewed: Yes - Travel History Have you recently traveled outside [place] w/in the past 3 mons?: No - Infectious Disease Hx of Infectious Diseases: None - Tetanus Immunization Tetanus Immunization: Up to Date - Cardiac Hx Cardiac Disorders: Yes Hx Hypertension: Yes - Pulmonary Hx Asthma: Yes - Neurological Hx Neurological Disorder: No Other/Comment: CP - HEENT Hx HEENT Disorder: No - Renal Hx Renal Disorder: No - Endocrine/Metabolic Hx Endocrine Disorders: Yes - Hematological/Oncological Hx Blood Disorders: Yes Hx Anemia: Yes - Integumentary Hx Dermatological Disorder: Yes Hx Eczema: Yes - Musculoskeletal/Rheumatological Hx Falls: No - Gastrointestinal Hx Gastrointestinal Disorders: Yes Hx Gastroesophageal Reflux: Yes Hx Pancreatitis: Yes - Genitourinary/Gynecological Hx Genitourinary Disorders: Yes Hx Urinary Tract Infection: Yes - Psychiatric Hx Psychophysiologic Disorder: Yes Hx Anxiety: Yes Hx Bipolar Disorder: Yes Hx Substance Use: No - Surgical History Hx Cholecystectomy: Yes Hx Splenectomy: Yes - Anesthesia Hx Anesthesia: Yes Hx Anesthesia Reactions: No Hx Malignant Hyperthermia: No - Suicidal Assessment Feels Threatened In Home Enviroment: No <JagdeepShahla - Last Filed: 11/11/16 21:50> Family/Social History - Physician Review Nursing Documentation Reviewed: Yes Family/Social History: Other (sickle cell trait) Smoking Status: Former Smoker Hx Alcohol Use: (uncertain) Hx Substance Use: No Hx Substance Use Treatment: No <Shahla Gannon - Last Filed: 11/11/16 21:50> Allergies/Home Meds <Shahla Gannon - Last Filed: 11/11/16 21:50> <Melody Barreto - Last Filed: 11/11/16 22:23> Allergies/Adverse Reactions: Allergies acetaminophen Allergy (Verified 09/24/16 12:42) RASH aspirin Allergy (Verified 09/24/16 12:42) RASH coconut oil Allergy (Verified 09/24/16 12:42) RASH morphine Allergy (Verified 09/24/16 12:42) SWELLING mushroom Allergy (Verified 09/24/16 12:42) URTICARIA oxycodone Allergy (Verified 09/24/16 12:42) RASH Home Medications: Home Meds Medication Instructions Recorded Confirmed Albuterol HFA [Ventolin HFA 90 2 puff IH PRN PRN 11/11/16 11/11/16 mcg/actuation (8 g)] Ammonium Lactate 12% [Lac-Hydrin] 1 appl TP DAILY 11/11/16 11/11/16 Ergocalciferol (Vitamin D2) 50,000 unit PO QWK 11/11/16 11/11/16 [Vitamin D2] Folic Acid 1 mg PO DAILY 11/11/16 11/11/16 Hydroxyurea [Hydrea] 500 mg PO DAILY 11/11/16 11/11/16 Levonorgestrel-Ethin Estradiol 1 tab PO DAILY 11/11/16 11/11/16 [Aviane 0.02 mg-0.1 mg] Mometasone [Asmanex Twisthaler] 100 mcg IH BID 11/11/16 11/11/16 Multivitamin with Iron [Tab-A-Will 1 each PO DAILY 11/11/16 11/11/16 with Iron] traMADol [Ultram] 50 mg PO PRN PRN 11/11/16 11/11/16 Review of Systems - Physician Review All systems were reviewed & negative as marked: Yes - Review of Systems Constitutional: Normal. absent: Fevers ENT: Normal. absent: Sore Throat Respiratory: Normal. absent: SOB, Cough Cardiovascular: Normal. absent: Chest Pain, Palpitations Gastrointestinal: Abdominal Pain (RUQ), Diarrhea, Nausea, Vomiting Genitourinary Female: Normal. absent: Dysuria, Frequency Musculoskeletal: Normal. absent: Arthralgias, Back Pain Skin: Normal. absent: Rash, Pruritis Neurological: Normal. absent: Headache, Dizziness Endocrine: Normal. absent: Diaphoresis <Shahla Gannon - Last Filed: 11/11/16 21:50> Physical Exam Vital Signs Reviewed: Yes Temperature: Afebrile Blood Pressure: Normal Pulse: Regular Respiratory Rate: Normal Appearance: Positive for: Well-Appearing, Non-Toxic, Comfortable Pain Distress: None Mental Status: Positive for: Alert and Oriented X 3 - Systems Exam Head: Present: Atraumatic, Normocephalic Pupils: Present: PERRL Extroacular Muscles: Present: EOMI Conjunctiva: Present: Normal Mouth: Present: Moist Mucous Membranes Neck: Present: Normal Range of Motion Respiratory/Chest: Present: Clear to Auscultation, Good Air Exchange, Other (R port in place- clean and dry ). No: Respiratory Distress, Accessory Muscle Use Cardiovascular: Present: Regular Rate and Rhythm, Normal S1, S2. No: Murmurs Abdomen: Present: Tenderness (mild RUQ ), Normal Bowel Sounds. No: Distention, Peritoneal Signs, Rebound, Guarding, Hernias Back: Present: Normal Inspection Upper Extremity: Present: Normal Inspection. No: Cyanosis, Edema Lower Extremity: Present: Normal Inspection, Edema Neurological: Present: GCS=15, CN II-XII Intact, Speech Normal Skin: Present: Warm, Dry, Normal Color. No: Rashes Psychiatric: Present: Alert, Oriented x 3, Normal Insight, Normal Concentration <Shahla Gannon - Last Filed: 11/11/16 21:50> <Melody Barreto - Last Filed: 11/11/16 22:23> Vital Signs Temp Resp BP Pulse Ox 11/11/16 21:06 97.8 F 18 104/70 96 Medical Decision Making Re-evaluation Time: 21:50 - Lab Interpretations I have reviewed the lab results: Yes Interpretation: No sign. chg./baseline <Shahla Gannon - Last Filed: 11/11/16 21:50> <Melody Barreto - Last Filed: 11/11/16 22:23> ED Course and Treatment: 11/11/16 21:20 Impression: This is a 36Y F with PMH of sickle cell disease, bipolar disorder, asthma and CHF who is here for nausea, vomiting and diarrhea x 1 day. Differential Diagnosis included but are not limited to: sickle cell crisis v. pancreatitis v. gastroenteritis v. opiate dependence Plan: -- CBC, retic count, CMP, LDH, Lipase, Mag, Phos, U/A -- B-Hcg -- Benadryl, Morphine, Zofran -- Reassess and disposition Progress Notes: 11/11/16 21:51 Patient re-examined. NS ordered. Patient is less tender to palpation, but reports she is still nauseous. Reglan ordered. Labs reviewed (at pt's baseline) . 11/11/16 22:04 Spoke with medical coder and Dr. Good who accepted patient into his service. (Shahla Gannon) A 36 year old female with nausea, vomiting and diarrhea. In agreement with resident note, which includes further HPI details. Patient was seen and evaluated with resident, came up with plan and treatment together. Patient has had multiple episodes of vomiting and diarrhea. She has soft NT/ND abdomen. Her labs are at baseline. After multiple anti-emetics, she continues to have vomiting and diarrhea. I do not believe there is any indication for imaging as she has no complaint of abdominal pain and on exam her abdomen is soft NT/ND. Will have inpatient team also evaluate and they can order imaging if thought necessary. Will transfer to med/sx for intractable vomiting and diarrhea. ( Melody Barreto) - Lab Interpretations Lab Results: 11/11/16 21:20 11/11/16 21:20 Lab Results 11/11/16 21:20: Beta HCG, Quant < 2.39 11/11/16 21:20: Sodium 140, Potassium 3.7, Chloride 99, Carbon Dioxide 34 H, Anion Gap 11, BUN 7, Creatinine 0.4 L, Est GFR ( Amer) > 60, Est GFR (Non -Af Amer) > 60, Random Glucose 100, Calcium 8.7, Phosphorus 4.0, Magnesium 1.5 L , Total Bilirubin 4.7 H, AST 238 H, ALT 71 H, Alkaline Phosphatase 201 H, Lactate Dehydrogenase 1020 H, Total Protein 7.4, Albumin 2.9 L, Globulin 4.5, Albumin/Globulin Ratio 0.6 L, Lipase 188 11/11/16 21:20: WBC 6.7 D, RBC 2.73 L, Hgb 10.2 L, Hct 28.7 L, MCV 105.1 H, MCH 37.4 H, MCHC 35.5, RDW 26.0 H, Plt Count 164, MPV 11.0, Neutrophils % ( Manual) Pending, Lymphocytes % (Manual) Pending, Monocytes % (Manual) Pending, Retic Count 18.37 H* - Medication Orders Current Medication Orders: Sodium Chloride (Sodium Chloride 0.9%) 1,000 mls @ 100 mls/hr IV .Q10H ARLETTE Last Admin: 11/11/16 21:47 Dose: 100 mls/hr Discontinued Medications Diphenhydramine HCl (Benadryl) 50 mg IVP STAT STA Stop: 11/11/16 21:13 Hydromorphone HCl (Dilaudid) 2 mg IVP STAT STA Stop: 11/11/16 21:13 Metoclopramide HCl (Reglan) 10 mg IVP STAT STA Stop: 11/11/16 21:53 Ondansetron HCl (Zofran Inj) 4 mg IVP STAT STA Stop: 11/11/16 20:52 <Shahla Gannon - Last Filed: 11/11/16 21:50> - PA / CORE MAKER HELPER / Resident Statement / has reviewed & agrees with the documentation as recorded. MD/DO has examined the patient and agrees with the treatment plan. - Scribe Statement The provider has reviewed the documentation as recorded by the Scribe <Melody Barreto - Last Filed: 11/11/16 22:23> - Scribe Statement Nelly Armenta Provider Scribe Attestation: All medical record entries made by the Scribe were at my direction and personally dictated by me. I have reviewed the chart and agree that the record accurately reflects my personal performance of the history, physical exam, medical decision making, and the department course for this patient. I have also personally directed, reviewed, and agree with the discharge instructions and disposition. (Melody Barreto) Disposition/Present on Arrival - Present on Arrival Any Indicators Present on Arrival: No History of DVT/PE: No History of Uncontrolled Diabetes: No Urinary Catheter: No History of Decub. Ulcer: No History Surgical Site Infection Following: None - Disposition Have Diagnosis and Disposition been Completed?: Yes Disposition Time: 22:06 Patient Plan: Admission <Shahla Gannon - Last Filed: 11/11/16 21:50> <Melody Barreto - Last Filed: 11/11/16 22:23> - Disposition Diagnosis: Abdominal pain Disposition: HOSPITALIZED Patient Problems: Current Active Problems Problem Status Onset Abdominal pain Chronic Condition: FAIR Forms: [employer] (Bulgarian)
[2016-11-11 21:36] LABS: HEMATOCRIT 28.7 % (36.0-48.0); MEAN CELL VOLUME 105.1 fl (80.0-105.0); MEAN CORPUSCULAR HEMOGLOBIN 37.4 pg (25.0-35.0); MEAN CORPUSCULAR HGB CONC 35.5 g/dl (31.0-37.0); PLATELET COUNT 164 10^3/uL (120.0-450.0); WHITE BLOOD COUNT 6.7 10^3/ul (4.5-11.0)
[2016-11-11 21:43] LABS: RETIC% 18.37 % (0.5-1.5)
[2016-11-11] MEDS ORDERED: Sodium Chloride 0.9% 1,000 ML IV SCH (21:45)
[2016-11-11] MEDS: Sodium Chloride 0.9% 1,000 ML IV SCH (21:47)
[2016-11-11 21:49] LABS: ALB/GLOB RATIO 0.6 (1.1-1.8); ALKALINE PHOSPHATASE 201 U/L (38-126); ALT/SGPT 71 U/L (7-56); AST/SGOT 238 U/L (14-36); BILIRUBIN,TOTAL 4.7 mg/dL (0.2-1.3); BLOOD UREA NITROGEN 7 mg/dL (7-21); CALCIUM 8.7 mg/dL (8.4-10.5); CARBON DIOXIDE 34 mmol/L (21-33); CHLORIDE 99 mmol/L (98-107); GFR AFRICAN-AMERICAN > 60; GLUCOSE,RANDOM 100 mg/dL (70-110); LIPASE 188 U/L (23-300); MAGNESIUM 1.5 mg/dL (1.7-2.2); POTASSIUM 3.7 mmol/L (3.6-5.0); SODIUM 140 mmol/L (132-148); TOTAL PROTEIN 7.4 g/dL (5.8-8.3)
[2016-11-11 22:42] LABS: EOSINOPHIL 1 % (0.0-3.0); NEUTROPHIL 69 % (50.0-70.0)
[2016-11-11 22:45] LABS: CORRECTED WBC 4.9 K/mm3 (4.5-11.0); HYPOCHROMIA 1+; NUCLEATED RED BLOOD CELL 37 %; PLATELET ESTIMATE NORMAL (NORMAL)
[2016-11-11 22:46] LABS: LARGE PLATELETS PRESENT; MICROCYTOSIS 1+; STOMATOCYTE 1+; TARGET CELLS 1+
--- NOTE | 2016-11-12 01:36 | CP.PCM.HP ---
<Seth Adam - Last Filed: 11/12/16 20:09> History of Present Illness - History of Present Illness History of Present Illness: 36 year old AA female with past medical history of sickle cell disease, Bipolar disorder, cerebral palsy, Asthma, and CHF presents to the emergency department complaining of abdominal pain located in the RUQ. She states the pain started today, and describes it as a constant pain. She also states she has been vomiting up bile and has been nauseous. In addition, she says she has had diarrhea today several times with the stool being looser than normal but not completely water like. Her last meal was 5 hours ago and she ate hamburger helper. She denies CP, SOB, numbness/tingling, fever, chills, dysuria or hematuria. PMH: Bipolar disorder, CHF (EF of 39.7 Echo done 07/10), asthma, Sickle cell, cerebral palsy PSH: Bilateral Hip Surgery, cholecystectomy Social: Denies Tobacco, Alcohol, or any illicit drug use Family Hx: Sickle Cell (Nephew and Sister), Breast Cancer (Maternal Aunt) Medications: Divalproex, Folate, MVI, Dilaudid, Hydroxyurea, Pantoprazole Allergies: ASA, percocet, morphine, oxycodone, mushrooms, coconut oil Heme/Onc: Dr. Palacios Present on Admission - Present on Admission Any Indicators Present on Admission: No Review of Systems - Constitutional Constitutional: absent: Chills - EENT Eyes: absent: Change in Vision Ears: absent: Decreased Hearing, Ear Pain - Cardiovascular Cardiovascular: absent: Chest Pain, Dyspnea - Respiratory Respiratory: absent: Cough, Dyspnea - Gastrointestinal Gastrointestinal: Abdominal Pain, Diarrhea, Nausea, Vomiting - Musculoskeletal Musculoskeletal: absent: Numbness, Tingling - Neurological Neurological: absent: Weakness Past Patient History - Infectious Disease Hx of Infectious Diseases: None - Tetanus Immunizations Tetanus Immunization: Up to Date - Past Medical History & Family History Past Medical History?: Yes - Past Social History Smoking Status: Former Smoker - CARDIAC Hx Cardiac Disorders: Yes Hx Hypertension: Yes - PULMONARY Hx Asthma: Yes - NEUROLOGICAL Hx Neurological Disorder: No Other/Comment: CP - HEENT Hx HEENT Problems: No - RENAL Hx Chronic Kidney Disease: No - ENDOCRINE/METABOLIC Hx Endocrine Disorders: Yes - HEMATOLOGICAL/ONCOLOGICAL Hx Blood Disorders: Yes Hx Anemia: Yes - INTEGUMENTARY Hx Dermatological Problems: Yes Hx Eczema: Yes - MUSCULOSKELETAL/RHEUMATOLOGICAL Hx Falls: No - GASTROINTESTINAL Hx Gastrointestinal Disorders: Yes Hx Gastroesophageal Reflux: Yes Hx Pancreatitis: Yes - GENITOURINARY/GYNECOLOGICAL Hx Genitourinary Disorders: Yes Hx Urinary Tract Infection: Yes - PSYCHIATRIC Hx Psychophysiologic Disorder: Yes Hx Anxiety: Yes Hx Bipolar Disorder: Yes Hx Substance Use: No - SURGICAL HISTORY Hx Cholecystectomy: Yes Hx Splenectomy: Yes - ANESTHESIA Hx Anesthesia: Yes Hx Anesthesia Reactions: No Hx Malignant Hyperthermia: No Meds Allergies/Adverse Reactions: Allergies Allergy/AdvReac Type Severity Reaction Status Date / Time acetaminophen Allergy RASH Verified 09/24/16 12:42 aspirin Allergy RASH Verified 09/24/16 12:42 coconut oil Allergy RASH Verified 09/24/16 12:42 morphine Allergy SWELLING Verified 09/24/16 12:42 mushroom Allergy URTICARIA Verified 09/24/16 12:42 oxycodone Allergy RASH Verified 09/24/16 12:42 Physical Exam - Head Exam Head Exam: ATRAUMATIC, NORMAL INSPECTION, NORMOCEPHALIC - Eye Exam Eye Exam: EOMI - Respiratory Exam Respiratory Exam: NORMAL BREATHING PATTERN - Cardiovascular Exam Cardiovascular Exam: REGULAR RHYTHM, +S1, +S2 - GI/Abdominal Exam GI & Abdominal Exam: Tenderness - Back Exam Back exam: NORMAL INSPECTION. absent: tenderness - Neurological Exam Neurological exam: Alert, Oriented x3 Results - Vital Signs Recent Vital Signs: Last Vital Signs Temp 97.8 F 11/11/16 21:06 Pulse 100 H 11/11/16 23:06 Resp 18 11/11/16 23:06 BP 115/75 11/11/16 23:06 Pulse Ox 95 11/11/16 23:06 - Labs Result Diagrams: 11/12/16 06:40 11/12/16 06:40 Assessment & Plan - Assessment and Plan (Free Text) Assessment: 36 year old AA female with past medical history of sickle cell disease, Bipolar disorder, cerebral palsy, Asthma, and CHF presents to the emergency department complaining of abdominal pain located in the RUQ. She states the pain started today, and describes it as a constant pain. She also states she has been vomiting up bile and has been nauseous. She is being worked up for abdominal pain secondary to her sickle cell disease. Plan: 1. Abdominal Pain likely secondary to sickle cell disease - Hgb of 10.2, continue to monitor - retic count of 18.37, continue to monitor - hydromorphone given - Hydroxyurea given - Folic acid and MVI started - Heme consulted 2. Hypomagnesia -Magnesium 1.5 continue to monitor 3. CHF Chronic - EF of 39.7 from June 2016 4. History of Bipolar Disorder -continue home medications 5. GI/DVT prophylaxis -pantoprazole started -SCD <Brittnee Good - Last Filed: 11/13/16 04:15> Results - Vital Signs Recent Vital Signs: Last Vital Signs Temp 98.4 F 11/13/16 00:05 Pulse 97 H 11/13/16 00:05 Resp 20 11/13/16 00:05 BP 99/80 L 11/13/16 00:05 Pulse Ox 98 11/13/16 00:05 - Labs Result Diagrams: 11/12/16 06:40 11/12/16 06:40 Labs: Laboratory Results - last 24 hr 11/12/16 11/12/16 06:40 06:40 WBC 8.2 D RBC 2.51 L Hgb 9.1 L Hct 26.5 L MCV 105.6 H MCH 36.3 H MCHC 34.3 RDW 25.6 H Plt Count 125 MPV 10.9 Gran % 56.8 Lymph % (Auto) 30.5 [place] % (Auto) 11.6 H Eos % (Auto) 0.7 L Baso % (Auto) 0.4 Gran # 4.87 Lymph # 2.6 [place] # 1.0 H Eos # 0.1 Baso # 0.03 Sodium 144 Potassium 4.1 Chloride 104 Carbon Dioxide 33 Anion Gap 11 BUN 10 Creatinine 0.6 Est GFR ( Amer) > 60 Est GFR (Non-Af Amer) > 60 Random Glucose 92 Calcium 8.2 L Total Bilirubin 5.2 H AST 225 H ALT 70 H Alkaline Phosphatase 180 H Lactate Dehydrogenase 1004 H Total Protein 6.9 Albumin 2.7 L Globulin 4.3 Albumin/Globulin Ratio 0.6 L Attending/Attestation - Attestation I have personally seen and examined this patient.: Yes I have fully participated in the care of the patient.: Yes I have reviewed all pertinent clinical information: Yes Notes (Text): 11/13/16 04:14 Patient was seen when she was in [facility] room in the ER. Agree with history , physical examination, assessment and plan.
[2016-11-12] MEDS ORDERED: Albuterol 0.083% Inhal Sol (2.5 mg/3 mL) UD IH PRN (01:55)
[2016-11-12] MEDS: Pantoprazole 40 mg EC Tab PO SCH (06:10)
[2016-11-12 06:52] LABS: HEMATOCRIT 26.5 % (36.0-48.0); MEAN CELL VOLUME 105.6 fl (80.0-105.0); MEAN CORPUSCULAR HEMOGLOBIN 36.3 pg (25.0-35.0); MEAN CORPUSCULAR HGB CONC 34.3 g/dl (31.0-37.0); MEAN PLATELET VOLUME 10.9 fl (7.0-11.0); RED CELL DISTRIBUTION WIDTH 25.6 % (11.5-14.5); WHITE BLOOD COUNT 8.2 10^3/ul (4.5-11.0)
[2016-11-12 07:28] LABS: ALB/GLOB RATIO 0.6 (1.1-1.8); ALKALINE PHOSPHATASE 180 U/L (38-126); ALT/SGPT 70 U/L (7-56); AST/SGOT 225 U/L (14-36); BILIRUBIN,TOTAL 5.2 mg/dL (0.2-1.3); BLOOD UREA NITROGEN 10 mg/dL (7-21); CALCIUM 8.2 mg/dL (8.4-10.5); CARBON DIOXIDE 33 mmol/L (21-33); CHLORIDE 104 mmol/L (98-107); GFR AFRICAN-AMERICAN > 60; GLUCOSE,RANDOM 92 mg/dL (70-110); POTASSIUM 4.1 mmol/L (3.6-5.0); SODIUM 144 mmol/L (132-148); TOTAL PROTEIN 6.9 g/dL (5.8-8.3)
[2016-11-12] MEDS: Sodium Chloride 0.9% 1,000 ML IV SCH (07:55)
[2016-11-12] MEDS: Ergocalciferol 50,000 Intl Units Cap PO SCH (09:20)
[2016-11-12] MEDS: HYDROmorphone 2 mg/ml ISec IVP PRN ×2 (09:29→15:06)
[2016-11-12 13:18] LABS: BASO % 0.4 % (0.0-3.0); EOS # 0.1 (0.0-0.7); EOS % 0.7 % (1.5-5.0); GRAN # 4.87 (1.4-6.5); GRAN % 56.8 % (50.0-68.0); LYMPH # 2.6 (1.2-3.4); LYMPH % 30.5 % (22.0-35.0); MONO % 11.6 % (1.0-6.0)
[2016-11-12 13:19] LABS: BASO # 0.03 K/mm3 (0.0-2.0)
[2016-11-12] MEDS: Multivitamin With Minerals Tab PO SCH (13:48)
--- NOTE | 2016-11-13 03:47 | CON ---
DATE: 11/12/2016 REASON FOR CONSULTATION: Abdominal pain, sickle cell disease. HISTORY OF PRESENT ILLNESS: Ms. Oseguera is a 36-year-old female, who was recently discharged from the hospital 2 days ago with abdominal pain. She presented to ED with similar complaints of abdominal pain. She has a history of sickle cell disease. She also has a history of CHF and bipolar disorder. She has cerebral palsy. Currently, getting IV hydration. Blood counts, hemoglobin, and hematocrit are stable. She is comfortable and right now, denies any pain, drowsy because of the pain medication or all the above. PAST MEDICAL HISTORY: Bipolar disorder, CHF, sickle cell disease, and cerebral palsy. PAST SURGICAL HISTORY: Bilateral hip surgery and cholecystectomy. SOCIAL HISTORY: No history of alcohol use, no history of tobacco use. FAMILY HISTORY: Positive for sickle cell and breast cancer. HOME MEDICATIONS: Folate, multivitamin, Dilaudid, hydroxyurea, and Protonix. ALLERGIES: ASPIRIN, PERCOCET, MORPHINE, OXYCODONE. REVIEW OF SYSTEMS: As per HPI. Rest of 12-point review of systems reviewed and negative. PHYSICAL EXAMINATION: GENERAL: Comfortable in bed, in no acute distress, sedated, arousable. VITAL SIGNS: Temperature is 98.7, heart rate 80 per minute, respiratory rate 18 per minute, blood pressure is 110/75, and pulse ox 95 per minute. HEENT: Normal. CHEST: Air entry present and equal bilaterally. No added sounds. CARDIOVASCULAR: Exam is within normal limits. ABDOMEN: Soft and nontender. No hepatosplenomegaly. EXTREMITIES: No edema. LABORATORY DATA: White count of 8.2, hemoglobin 9.1, hematocrit 26.5, and platelet count 125. Chemistry is within normal limits. AST elevated 225, ALT 17, alkaline phosphatase 180. LDH 1000. ASSESSMENT AND PLAN: 1. Abdominal pain. 2. Sickle cell disease. 3. CHF. 4. Transaminitis. PLAN: I would recommend continuing IV hydration, pain control. She has multiple allergies to narcotics. She is well sedated. As per the staff nurse, she is not in pain most of the time. Ultrasound done during last admission showed cirrhosis of liver, no acute pathology. She has transaminitis. I would recommend GI consultation for further evaluation of abdominal pain. She has UTI with Enterococcus and Acinetobacter. ID consultation and antibiotics as per ID. Continue hydroxyurea 500 mg daily. DVT prophylaxis with heparin 5000 subcutaneous b.i.d. Thanks for allowing us to participate in Ms. Oseguera's care. Alma Delia Royal MD [facility]
[2016-11-13] MEDS: Pantoprazole 40 mg EC Tab PO SCH (05:57)
[2016-11-13 07:06] LABS: BASO # 0.05 K/mm3 (0.0-2.0); BASO % 0.6 % (0.0-3.0); EOS # 0.1 (0.0-0.7); EOS % 1.7 % (1.5-5.0); GRAN # 3.89 (1.4-6.5); GRAN % 48.7 % (50.0-68.0); HEMATOCRIT 24.1 % (36.0-48.0); LYMPH # 2.7 (1.2-3.4); LYMPH % 33.8 % (22.0-35.0); MEAN CELL VOLUME 102.6 fl (80.0-105.0); MEAN CORPUSCULAR HEMOGLOBIN 35.7 pg (25.0-35.0); MEAN CORPUSCULAR HGB CONC 34.9 g/dl (31.0-37.0); MONO # 1.2 (0.1-0.6); MONO % 15.2 % (1.0-6.0); RED CELL DISTRIBUTION WIDTH 24.5 % (11.5-14.5)
[2016-11-13 07:35] LABS: ALB/GLOB RATIO 0.7 (1.1-1.8); ALKALINE PHOSPHATASE 179 U/L (38-126); ALT/SGPT 64 U/L (7-56); AST/SGOT 211 U/L (14-36); BILIRUBIN,TOTAL 5.9 mg/dL (0.2-1.3); BLOOD UREA NITROGEN 12 mg/dL (7-21); CALCIUM 7.9 mg/dL (8.4-10.5); CARBON DIOXIDE 28 mmol/L (21-33); CHLORIDE 101 mmol/L (98-107); GFR AFRICAN-AMERICAN > 60; GLUCOSE,RANDOM 88 mg/dL (70-110); POTASSIUM 4.2 mmol/L (3.6-5.0); SODIUM 138 mmol/L (132-148); TOTAL PROTEIN 7.1 g/dL (5.8-8.3)
[2016-11-13] MEDS: HYDROmorphone 2 mg/ml ISec IVP PRN ×2 (09:12→20:54)
[2016-11-13] MEDS: Multivitamin With Minerals Tab PO SCH (09:13)
[2016-11-13] MEDS ORDERED: Ammonium Lactate 12% Cream (140 g) TOP PRN ×2 (09:16→09:22)
[2016-11-13 09:40] LABS: RETIC% 22.77 % (0.5-1.5)
[2016-11-13] MEDS ORDERED: MOMETASONE IH SCH (10:00)
[2016-11-13] MEDS ORDERED: Piperacillin/Tazobact 3.375 gm 100 ML IVPB STA (11:18)
[2016-11-13] MEDS: MOMETASONE IH SCH ×2 (11:24→19:20)
--- NOTE | 2016-11-13 14:01 | CP.PCM.CON ---
History of Present Illness - History of Present Illness History of Present Illness: Infectious Disease Consultation: November 13, 2016 36 yo AA female well known to me from previous hospitalizations at [facility] and [facility] presented with generalized pains and admitted for Sickle Cell vasoocclusive Crisis. The patient was just discharged from [facility] a few days ago. She returns with abdominal pain, nausea, and vomiting. The patient did not exhibit a fever while hospitalized so far but came very close with a 100.0 F. Patient with nausea and vomiting and diarrhea. Her blood pressure is lower than her usual. Started on Zosyn for antibiotic treatment. PMHx: Sickle Cell Disease, Cerebral Palsy, Asthma, frequent UTIs, CVA, Bipolar disorder, Cardiomyopathy with reduced EF of 35%. PSHx: cholecystectomy, port-a-cath placement Allergies: Morphine, Acetaminophen, Aspirin, Oxycodone Social Hx: Ex-smoker, no EtOH or illicit drug use Active Medications Albuterol Sulfate (Albuterol 0.083% Inhal Rika (2.5 Mg/3 Ml) Ud) 2.5 mg IH [id number] PRN PRN Reason: Shortness of Breath Ergocalciferol (Drisdol 50,000 Intl Units Cap) 1 cap PO QWK [facility] Last Admin: 11/12/16 09:20 Dose: 1 cap Folic Acid (Folic Acid) 1 mg PO DAILY [facility] Last Admin: 11/13/16 09:13 Dose: 1 mg Heparin Sodium (Porcine) (Heparin) 5,000 units SC Q12 ARLETTE PRN Reason: Protocol Last Admin: 11/13/16 09:13 Dose: 5,000 units Hydromorphone HCl (Dilaudid) 2 mg IVP Q6H PRN PRN Reason: Pain, moderate (4-7) Last Admin: 11/13/16 09:12 Dose: 2 mg Hydroxyurea (Hydrea) 500 mg PO DAILY [facility] Last Admin: 11/13/16 12:56 Dose: 500 mg Lactic Acid (Lac-Hydrin 12% Cream (140 G)) 0 ea TOP DAILY PRN PRN Reason: Wound Multivitamins/Minerals (Therapeutic-M Tab) 1 tab PO DAILY [facility] Last Admin: 11/13/16 09:13 Dose: 1 tab Non-Formulary Medication (Mometasone [Asmanex Twisthaler 110 Mcg]) 100 mcg IH BID [facility] Last Admin: 11/13/16 11:24 Dose: Not Given Pantoprazole Sodium (Protonix Ec Tab) 40 mg PO 0600 [facility] Last Admin: 11/13/16 05:57 Dose: 40 mg Tramadol HCl (Ultram) 50 mg PO Q6 PRN PRN Reason: Pain, moderate (4-7) Last Admin: 11/13/16 01:57 Dose: 50 mg Family Hx: Sickle Cell trait in parents. ROS: Patient with fevers. Generalized pains. no chills, no cough, no shortness of breath, no headaches, no dizziness. No chest pain or abdominal pain. Generalized pains most intense in the back and neck. No melena, hematuria, hematemesis, hematochezia. No vision loss or hearing loss. No loss of consciousness. Past Patient History - Infectious Disease Hx of Infectious Diseases: None - Tetanus Immunizations Tetanus Immunization: Up to Date - Past Medical History & Family History Past Medical History?: Yes - Past Social History Smoking Status: Former Smoker - CARDIAC Hx Cardiac Disorders: Yes Hx Hypertension: Yes - PULMONARY Hx Asthma: Yes - NEUROLOGICAL Hx Neurological Disorder: No Other/Comment: CP - HEENT Hx HEENT Problems: No - RENAL Hx Chronic Kidney Disease: No - ENDOCRINE/METABOLIC Hx Endocrine Disorders: Yes - HEMATOLOGICAL/ONCOLOGICAL Hx Blood Disorders: Yes Hx Anemia: Yes - INTEGUMENTARY Hx Dermatological Problems: Yes Hx Eczema: Yes - MUSCULOSKELETAL/RHEUMATOLOGICAL Hx Falls: No - GASTROINTESTINAL Hx Gastrointestinal Disorders: Yes Hx Gastroesophageal Reflux: Yes Hx Pancreatitis: Yes - GENITOURINARY/GYNECOLOGICAL Hx Genitourinary Disorders: Yes Hx Urinary Tract Infection: Yes - PSYCHIATRIC Hx Psychophysiologic Disorder: Yes Hx Anxiety: Yes Hx Bipolar Disorder: Yes Hx Substance Use: No - SURGICAL HISTORY Hx Cholecystectomy: Yes Hx Splenectomy: Yes - ANESTHESIA Hx Anesthesia: Yes Hx Anesthesia Reactions: No Hx Malignant Hyperthermia: No Meds Allergies/Adverse Reactions: Allergies Allergy/AdvReac Type Severity Reaction Status Date / Time acetaminophen Allergy RASH Verified 09/24/16 12:42 aspirin Allergy RASH Verified 09/24/16 12:42 coconut oil Allergy RASH Verified 09/24/16 12:42 morphine Allergy SWELLING Verified 09/24/16 12:42 mushroom Allergy URTICARIA Verified 09/24/16 12:42 oxycodone Allergy RASH Verified 09/24/16 12:42 - Medications Medications: Current Medications Albuterol Sulfate (Albuterol 0.083% Inhal Rika (2.5 Mg/3 Ml) Ud) 2.5 mg IH [id number] PRN PRN Reason: Shortness of Breath Ergocalciferol (Drisdol 50,000 Intl Units Cap) 1 cap PO QWK [facility] Last Admin: 11/12/16 09:20 Dose: 1 cap Folic Acid (Folic Acid) 1 mg PO DAILY [facility] Last Admin: 11/13/16 09:13 Dose: 1 mg Heparin Sodium (Porcine) (Heparin) 5,000 units SC Q12 ARLETTE PRN Reason: Protocol Last Admin: 11/13/16 09:13 Dose: 5,000 units Hydromorphone HCl (Dilaudid) 2 mg IVP Q6H PRN PRN Reason: Pain, moderate (4-7) Last Admin: 11/13/16 09:12 Dose: 2 mg Hydroxyurea (Hydrea) 500 mg PO DAILY [facility] Last Admin: 11/13/16 12:56 Dose: 500 mg Lactic Acid (Lac-Hydrin 12% Cream (140 G)) 0 ea TOP DAILY PRN PRN Reason: Wound Multivitamins/Minerals (Therapeutic-M Tab) 1 tab PO DAILY [facility] Last Admin: 11/13/16 09:13 Dose: 1 tab Non-Formulary Medication (Mometasone [Asmanex Twisthaler 110 Mcg]) 100 mcg IH BID [facility] Last Admin: 11/13/16 11:24 Dose: Not Given Pantoprazole Sodium (Protonix Ec Tab) 40 mg PO 0600 [facility] Last Admin: 11/13/16 05:57 Dose: 40 mg Tramadol HCl (Ultram) 50 mg PO Q6 PRN PRN Reason: Pain, moderate (4-7) Last Admin: 11/13/16 01:57 Dose: 50 mg Physical Exam - Constitutional Appears: Non-toxic, Chronically Ill - Head Exam Head Exam: ATRAUMATIC, NORMOCEPHALIC - Eye Exam Eye Exam: EOMI, PERRL Pupil Exam: NORMAL ACCOMODATION, PERRL - ENT Exam ENT Exam: Mucous Membranes Moist, Normal External Ear Exam, TM's Normal Bilaterally - Neck Exam Neck exam: Positive for: Full Rom, Normal Inspection - Respiratory Exam Respiratory Exam: Clear to Auscultation Bilateral, NORMAL BREATHING PATTERN. absent: Rales, Rhonchi, Wheezes - Cardiovascular Exam Cardiovascular Exam: REGULAR RHYTHM, RRR, +S1, +S2 - GI/Abdominal Exam GI & Abdominal Exam: Normal Bowel Sounds, Soft. absent: Distended, Tenderness - Extremities Exam Extremities exam: Positive for: full ROM, normal inspection - Back Exam Back exam: NORMAL INSPECTION - Neurological Exam Neurological exam: Alert, CN II-XII Intact, Oriented x3 - Psychiatric Exam Psychiatric exam: Depressed, Flat Affect - Skin Skin Exam: Intact, Normal Color Results - Vital Signs Recent Vital Signs: Last Vital Signs Temp 100 F H 11/13/16 07:59 Pulse 104 H 11/13/16 07:59 Resp 20 11/13/16 07:59 BP 93/65 L 11/13/16 07:59 Pulse Ox 20 L 11/13/16 07:59 - Labs Result Diagrams: 11/13/16 06:50 11/13/16 06:50 Labs: Laboratory Results - last 24 hr 11/13/16 11/13/16 11/13/16 06:50 06:50 07:30 WBC 8.0 RBC 2.35 L Hgb 8.4 L Hct 24.1 L MCV 102.6 D MCH 35.7 H MCHC 34.9 RDW 24.5 H Plt Count 129 MPV 11.0 Gran % 48.7 L Lymph % (Auto) 33.8 [place] % (Auto) 15.2 H Eos % (Auto) 1.7 Baso % (Auto) 0.6 Gran # 3.89 Lymph # 2.7 [place] # 1.2 H Eos # 0.1 Baso # 0.05 Retic Count 22.77 H* Sodium 138 Potassium 4.2 Chloride 101 Carbon Dioxide 28 Anion Gap 13 BUN 12 Creatinine 0.7 Est GFR ( Amer) > 60 Est GFR (Non-Af Amer) > 60 Random Glucose 88 Calcium 7.9 L Total Bilirubin 5.9 H AST 211 H ALT 64 H Alkaline Phosphatase 179 H Lactate Dehydrogenase 1022 H Total Protein 7.1 Albumin 2.8 L Globulin 4.3 Albumin/Globulin Ratio 0.7 L Assessment & Plan - Assessment and Plan (Free Text) Assessment: 36 yo AA female with known Sickle Cell disease presenting with diarrhea and abdominal pain. Low blood pressure/borderline hypotension. Supportive care. Continue Zosyn for now. Velarde cultures. No leukocytosis noted however. Thank you for allowing me to participate in the care of the patient, we will follow with you.
--- NOTE | 2016-11-13 14:22 | CP.PCM.PN ---
<JharmandoLillygabe - Last Filed: 11/13/16 14:19> Subjective - Date & Time of Evaluation Date of Evaluation: 11/13/16 Time of Evaluation: 10:05 - Subjective Subjective: Patient has been seen and examined. She reports only slight abdominal pain. Denies any fevers, chills, headache, SOB, CP, or lower Ext. pain. She denies any changes in bowel habits or urinary symptoms. Objective - Vital Signs/Intake and Output Vital Signs (last 24 hours): Temp Pulse Resp BP Pulse Ox 100 F H 104 H 20 93/65 L 20 L 11/13/16 07:59 11/13/16 07:59 11/13/16 07:59 11/13/16 07:59 11/13/16 07:59 Intake and Output: 11/13/16 11/13/16 06:59 18:59 Intake Total 600 Balance 600 - Medications Medications: Current Medications Albuterol Sulfate (Albuterol 0.083% Inhal Rika (2.5 Mg/3 Ml) Ud) 2.5 mg IH [id number] PRN PRN Reason: Shortness of Breath Ergocalciferol (Drisdol 50,000 Intl Units Cap) 1 cap PO QWK [facility] Last Admin: 11/12/16 09:20 Dose: 1 cap Folic Acid (Folic Acid) 1 mg PO DAILY [facility] Last Admin: 11/13/16 09:13 Dose: 1 mg Heparin Sodium (Porcine) (Heparin) 5,000 units SC Q12 ARLETTE PRN Reason: Protocol Last Admin: 11/13/16 09:13 Dose: 5,000 units Hydromorphone HCl (Dilaudid) 2 mg IVP Q6H PRN PRN Reason: Pain, moderate (4-7) Last Admin: 11/13/16 09:12 Dose: 2 mg Hydroxyurea (Hydrea) 500 mg PO DAILY [facility] Last Admin: 11/13/16 12:56 Dose: 500 mg Lactic Acid (Lac-Hydrin 12% Cream (140 G)) 0 ea TOP DAILY PRN PRN Reason: Wound Multivitamins/Minerals (Therapeutic-M Tab) 1 tab PO DAILY [facility] Last Admin: 11/13/16 09:13 Dose: 1 tab Non-Formulary Medication (Mometasone [Asmanex Twisthaler 110 Mcg]) 100 mcg IH BID [facility] Last Admin: 11/13/16 11:24 Dose: Not Given Pantoprazole Sodium (Protonix Ec Tab) 40 mg PO 0600 [facility] Last Admin: 11/13/16 05:57 Dose: 40 mg Tramadol HCl (Ultram) 50 mg PO Q6 PRN PRN Reason: Pain, moderate (4-7) Last Admin: 11/13/16 01:57 Dose: 50 mg - Labs Labs: 11/13/16 06:50 11/13/16 06:50 - Constitutional Appears: Non-toxic, No Acute Distress - Head Exam Head Exam: ATRAUMATIC, NORMAL INSPECTION, NORMOCEPHALIC - Eye Exam Eye Exam: Normal appearance - ENT Exam ENT Exam: Mucous Membranes Moist - Respiratory Exam Respiratory Exam: Clear to Ausculation Bilateral. absent: Rales, Rhonchi - Cardiovascular Exam Cardiovascular Exam: Tachycardia, REGULAR RHYTHM, +S1, +S2 - GI/Abdominal Exam GI & Abdominal Exam: Soft, Tenderness - Extremities Exam Extremities Exam: absent: Pedal Edema - Neurological Exam Neurological Exam: Alert, Awake, Oriented x3 - Psychiatric Exam Psychiatric exam: Normal Affect, Normal Mood - Skin Skin Exam: Dry, Warm Additional comments: burn wounds on right UE (healing) Assessment and Plan - Assessment and Plan (Free Text) Assessment: 36 year old AA female with past medical history of sickle cell disease, Bipolar disorder, cerebral palsy, Asthma, and CHF presents to the emergency department complaining of abdominal pain located in the RUQ. She states the pain started today, and describes it as a constant pain. She also states she has been vomiting up bile and has been nauseous. She is being worked up for abdominal pain secondary to her sickle cell disease. Plan: 1. Abdominal Pain likely secondary to sickle cell disease - Hgb of 8.4 down from 9.1 yesterday. Likely Dilutional. Transfuse if < 7 - Retriculocyte increased. Gave 1 bag at 250ml per hour. - Hydroxyurea given - Tramadol 50 for pain control - Folic acid and MVI started - Heme consulted 2. Hypomagnesia -Magnesium 1.5 continue to monitor 3. CHF Chronic - EF of 39.7 from June 2016 -Lung sounds are clear 4. History of Bipolar Disorder -continue home medications 5. GI/DVT prophylaxis -pantoprazole started -SCD Patient seen, examined, and discussed with Attending Dispo: Pressures are lower than normal today. Gave 1 bag at 250ml/hr. Will reassess blood pressure after bag is finished. Peripheral smear ordered and reviewed. Esteban Aly PGY-1 <Elzbieta ANGUIANO,Jena - Last Filed: 11/15/16 12:27> Objective - Vital Signs/Intake and Output Vital Signs (last 24 hours): Temp Pulse Resp BP Pulse Ox 97.5 F L 88 18 108/75 97 11/15/16 07:26 11/15/16 07:26 11/15/16 07:26 11/15/16 10:04 11/15/16 07:26 Intake and Output: 11/15/16 11/15/16 06:59 18:59 Intake Total 60 120 Balance 60 120 - Medications Medications: Current Medications Albuterol Sulfate (Albuterol 0.083% Inhal Rika (2.5 Mg/3 Ml) Ud) 2.5 mg IH [id number] PRN PRN Reason: Shortness of Breath Ergocalciferol (Drisdol 50,000 Intl Units Cap) 1 cap PO QWK [facility] Last Admin: 11/12/16 09:20 Dose: 1 cap Folic Acid (Folic Acid) 1 mg PO DAILY [facility] Last Admin: 11/15/16 10:02 Dose: 1 mg Furosemide (Lasix) 20 mg IVP BID [facility] Last Admin: 11/15/16 10:04 Dose: 20 mg Heparin Sodium (Porcine) (Heparin) 5,000 units SC Q12 ARLETTE PRN Reason: Protocol Last Admin: 11/15/16 10:02 Dose: 5,000 units Hydromorphone HCl (Dilaudid) 1 mg IVP Q3H PRN PRN Reason: Pain, severe (8-10) Last Admin: 11/15/16 11:34 Dose: 1 mg Hydroxyurea (Hydrea) 500 mg PO DAILY [facility] Last Admin: 11/15/16 10:05 Dose: 500 mg Deferoxamine Mesylate 1,000 mg (/ Sodium Chloride) 500 mls @ 41.667 mls/hr IV 2100 [facility]LETTE Stop: 11/19/16 08:59 Last Admin: 11/14/16 21:21 Dose: 41.667 mls/hr Vancomycin HCl (Vancomycin 1gm) 1 gm in 250 mls @ 167 mls/hr IVPB DAILY [facility]TTE PRN Reason: Protocol Lactic Acid (Lac-Hydrin 12% Cream (140 G)) 0 ea TOP DAILY PRN PRN Reason: Wound Multivitamins/Minerals (Therapeutic-M Tab) 1 tab PO DAILY [facility] Last Admin: 11/15/16 10:02 Dose: 1 tab Non-Formulary Medication (Mometasone [Asmanex Twisthaler 110 Mcg]) 100 mcg IH BID [facility] Last Admin: 11/14/16 17:51 Dose: Not Given Pantoprazole Sodium (Protonix Ec Tab) 40 mg PO 0600 [facility] Last Admin: 11/15/16 06:35 Dose: 40 mg Tramadol HCl (Ultram) 50 mg PO Q6 PRN PRN Reason: Pain, moderate (4-7) Last Admin: 11/15/16 08:55 Dose: 50 mg - Labs Labs: 11/15/16 07:03 11/15/16 09:18 PT 32.2 Seconds (9.9-11.8) H* 11/15/16 07:03 INR 2.98 (0.93-1.08) H 11/15/16 07:03 Attending/Attestation - Attestation I have personally seen and examined this patient.: Yes I have fully participated in the care of the patient.: Yes I have reviewed all pertinent clinical information, including history, physical exam and plan: Yes Notes (Text): 11/15/16 12:22 Patient was seen and examined with nuclear medical technologist. 35 year old female with past medical history of sickle cell disease, hypertension, asthma, cardiomyopathy, EF 39% ,cerebral palsy, and bipolar/ depression , multiple admission for recurrent UTI and sickle cell crisis, has chronically elevated transaminase is admitted with sickle cell crisis, also has underlying sepsis , as she is running low blood pressure, lung sound are clear, will give IV fluid , will monitor for fluid overload , will get blood cultures and get UA.we will empirically start patient on Zosyn.We will get hematology and ID consult.We will also get Peripheral smear. Prognosis is guarded. Management plan was discussed in detail with patient Education was provided.
[2016-11-13] MEDS: Piperacillin/Tazobact 3.375 gm 100 ML IVPB SCH (19:20)
[2016-11-14] MEDS: Piperacillin/Tazobact 3.375 gm 100 ML IVPB SCH ×3 (00:20→11:01)
[2016-11-14] MEDS: Pantoprazole 40 mg EC Tab PO SCH (05:36)
[2016-11-14 07:45] LABS: BASO # 0.03 K/mm3 (0.0-2.0); BASO % 0.2 % (0.0-3.0); EOS % 0.1 % (1.5-5.0); GRAN # 10.05 (1.4-6.5); GRAN % 63.2 % (50.0-68.0); LYMPH # 2.9 (1.2-3.4); LYMPH % 18.3 % (22.0-35.0); MEAN CELL VOLUME 103.1 fl (80.0-105.0); MEAN CORPUSCULAR HEMOGLOBIN 36.3 pg (25.0-35.0); MEAN CORPUSCULAR HGB CONC 35.2 g/dl (31.0-37.0); MEAN PLATELET VOLUME 11.7 fl (7.0-11.0); MONO # 2.9 (0.1-0.6); MONO % 18.2 % (1.0-6.0); RED CELL DISTRIBUTION WIDTH 24.6 % (11.5-14.5); WHITE BLOOD COUNT 15.9 10^3/ul (4.5-11.0)
[2016-11-14 07:57] LABS: RETIC% 22.12 % (0.5-1.5)
[2016-11-14] MEDS ORDERED: Sodium Chloride 0.9% 100 ML IV SCH (10:45)
[2016-11-14] MEDS: Multivitamin With Minerals Tab PO SCH (11:01)
[2016-11-14 11:43] LABS: ALB/GLOB RATIO 0.6 (1.1-1.8); BILIRUBIN,TOTAL 17.9 mg/dL (0.2-1.3); POTASSIUM 5.3 mmol/L (3.6-5.0); TOTAL PROTEIN 7.5 g/dL (5.8-8.3)
[2016-11-14] MEDS ORDERED: Dextrose 50% SYRINGE Inj (50 ml) IVP STA ×2 (12:10)
--- NOTE | 2016-11-14 12:24 | CP.PCM.PCO ---
Physician Communication Note - Physician Communication Note Physician Communication Note: Finger stick sugar every 30 minutes, until blood sugar is more than 100
[2016-11-14] MEDS ORDERED: Sod Polystyrene Sulf 15 gm/60 ml Oral Susp PO ONE (12:27)
[2016-11-14] MEDS ORDERED: Dextrose 5%/0.9% NS 1,000 ML IV SCH (12:30)
[2016-11-14] MEDS: MOMETASONE IH SCH ×2 (13:53→17:51)
[2016-11-14 14:37] LABS: ALB/GLOB RATIO 0.6 (1.1-1.8); ALKALINE PHOSPHATASE 177 U/L (38-126); ALT/SGPT 182 U/L (7-56); BILIRUBIN,DIRECT 16.1 mg/dL (0.0-0.4); TOTAL PROTEIN 7.6 g/dL (5.8-8.3)
[2016-11-14 14:43] LABS: AST/SGOT 1384 U/L (14-36)
--- NOTE | 2016-11-14 14:44 | CP.PCM.CON ---
<Juan C Frias - Last Filed: 11/14/16 15:28> History of Present Illness - History of Present Illness History of Present Illness: GI Consult Note for Dr. Renee 36 y/o F with PMH of Sickle cell disease, CHF, Bipolar disorder, Asthma, Liver cirrhosis, and Cerebral palsy presented to the hospital for increased abdominal pain along with nausea and vomiting. Patient frequently comes to the hospital for similar symptoms. Patient was recent discharged from the hospital on and presented back to the hospital the next day. Patient reports chronically experiencing experiencing abdominal pain, however at this point pain had become worse. Patient was admitted for sickle cell crisis and managed conservatively with IVF and pain control regimen. Pt was found to have a short episode of hypotension this morning, along with hypoglycemia. Upon interview with the patient, she states she has abdominal pain, but would like to go home. She also complains of mild shortness of breath. Denies CP, N/V/D, dysphagia, constipation , hematochezia, hematemesis. PMH: Bipolar disorder, CHF, asthma, Sickle cell, cerebral palsy, Liver cirrhosis PSH: Bilateral Hip Surgery, cholecystectomy Family Hx: Sickle Cell, Breast Cancer Social Hx: Denies Tobacco, Alcohol, or any illicit drug use Medications: Reviewed, as per chart Allergies: ASA, percocet, morphine, oxycodone, mushrooms, coconut oil Review of Systems - Review of Systems Review of Systems: 12 point ROS as per HPI, otherwise negative Past Patient History - Infectious Disease Hx of Infectious Diseases: None - Tetanus Immunizations Tetanus Immunization: Up to Date - Past Medical History & Family History Past Medical History?: Yes - Past Social History Smoking Status: Former Smoker - CARDIAC Hx Cardiac Disorders: Yes Hx Hypertension: Yes - PULMONARY Hx Asthma: Yes - NEUROLOGICAL Hx Neurological Disorder: No Other/Comment: CP - HEENT Hx HEENT Problems: No - RENAL Hx Chronic Kidney Disease: No - ENDOCRINE/METABOLIC Hx Endocrine Disorders: Yes - HEMATOLOGICAL/ONCOLOGICAL Hx Blood Disorders: Yes Hx Anemia: Yes - INTEGUMENTARY Hx Dermatological Problems: Yes Hx Eczema: Yes - MUSCULOSKELETAL/RHEUMATOLOGICAL Hx Falls: No - GASTROINTESTINAL Hx Gastrointestinal Disorders: Yes Hx Gastroesophageal Reflux: Yes Hx Pancreatitis: Yes - GENITOURINARY/GYNECOLOGICAL Hx Genitourinary Disorders: Yes Hx Urinary Tract Infection: Yes - PSYCHIATRIC Hx Psychophysiologic Disorder: Yes Hx Anxiety: Yes Hx Bipolar Disorder: Yes Hx Substance Use: No - SURGICAL HISTORY Hx Cholecystectomy: Yes Hx Splenectomy: Yes - ANESTHESIA Hx Anesthesia: Yes Hx Anesthesia Reactions: No Hx Malignant Hyperthermia: No Meds Allergies/Adverse Reactions: Allergies Allergy/AdvReac Type Severity Reaction Status Date / Time acetaminophen Allergy RASH Verified 09/24/16 12:42 aspirin Allergy RASH Verified 09/24/16 12:42 coconut oil Allergy RASH Verified 09/24/16 12:42 morphine Allergy SWELLING Verified 09/24/16 12:42 mushroom Allergy URTICARIA Verified 09/24/16 12:42 oxycodone Allergy RASH Verified 09/24/16 12:42 - Medications Medications: Current Medications Albuterol Sulfate (Albuterol 0.083% Inhal Rika (2.5 Mg/3 Ml) Ud) 2.5 mg IH [id number] PRN PRN Reason: Shortness of Breath Ergocalciferol (Drisdol 50,000 Intl Units Cap) 1 cap PO QWK [facility] Last Admin: 11/12/16 09:20 Dose: 1 cap Folic Acid (Folic Acid) 1 mg PO DAILY [facility] Last Admin: 11/14/16 10:59 Dose: 1 mg Heparin Sodium (Porcine) (Heparin) 5,000 units SC Q12 ARLETTE PRN Reason: Protocol Last Admin: 11/14/16 10:59 Dose: 5,000 units Hydromorphone HCl (Dilaudid) 2 mg IVP Q6H PRN PRN Reason: Pain, moderate (4-7) Last Admin: 11/13/16 20:54 Dose: 2 mg Hydroxyurea (Hydrea) 500 mg PO DAILY [facility] Last Admin: 11/14/16 11:07 Dose: 500 mg Piperacillin Sod/Tazobactam Sod (Zosyn 3.375 In Ns 100ml) 100 mls @ 200 mls/hr IVPB Q6 ARLETTE PRN Reason: Protocol Last Admin: 11/14/16 11:01 Dose: 200 mls/hr Dextrose/Sodium Chloride (Dextrose 5%/0.9% Ns 1000 Ml) 1,000 mls @ 100 mls/hr IV .Q10H [facility] Lactic Acid (Lac-Hydrin 12% Cream (140 G)) 0 ea TOP DAILY PRN PRN Reason: Wound Multivitamins/Minerals (Therapeutic-M Tab) 1 tab PO DAILY [facility] Last Admin: 11/14/16 11:01 Dose: 1 tab Non-Formulary Medication (Mometasone [Asmanex Twisthaler 110 Mcg]) 100 mcg IH BID [facility] Last Admin: 11/14/16 13:53 Dose: Not Given Pantoprazole Sodium (Protonix Ec Tab) 40 mg PO 0600 [facility] Last Admin: 11/14/16 05:36 Dose: 40 mg Tramadol HCl (Ultram) 50 mg PO Q6 PRN PRN Reason: Pain, moderate (4-7) Last Admin: 11/14/16 11:02 Dose: 50 mg Physical Exam - Constitutional Appears: Non-toxic, No Acute Distress - Head Exam Head Exam: ATRAUMATIC, NORMAL INSPECTION, NORMOCEPHALIC - ENT Exam ENT Exam: Mucous Membranes Moist, Normal Exam - Respiratory Exam Respiratory Exam: Rales, Wheezes, NORMAL BREATHING PATTERN. absent: Rhonchi - Cardiovascular Exam Cardiovascular Exam: RRR, +S1, +S2 - GI/Abdominal Exam GI & Abdominal Exam: Normal Bowel Sounds, Soft, Tenderness (Diffuse tenderness to palpation, mainly in RUQ). absent: Guarding, Organomegaly, Rebound - Extremities Exam Extremities exam: Positive for: normal inspection, pedal edema (+1 edema to the knees). Negative for: calf tenderness - Neurological Exam Neurological exam: Alert, CN II-XII Intact, Oriented x3 - Psychiatric Exam Psychiatric exam: Normal Affect, Normal Mood - Skin Skin Exam: Intact, Normal Color, Warm Results - Vital Signs Recent Vital Signs: Last Vital Signs Temp 98.1 F 11/14/16 07:30 Pulse 97 H 11/14/16 07:30 Resp 20 11/14/16 07:30 BP 95/53 L 11/14/16 07:30 Pulse Ox 98 11/14/16 07:30 - Labs Result Diagrams: 11/14/16 07:30 11/14/16 11:26 Labs: Laboratory Results - last 24 hr 11/14/16 11/14/16 11/14/16 07:30 11:26 12:04 WBC 15.9 H D RBC 2.23 L Hgb 8.1 L Hct 23.0 L MCV 103.1 MCH 36.3 H MCHC 35.2 RDW 24.6 H Plt Count 102 L MPV 11.7 H Gran % 63.2 Lymph % (Auto) 18.3 L [place] % (Auto) 18.2 H Eos % (Auto) 0.1 L Baso % (Auto) 0.2 Gran # 10.05 H Lymph # 2.9 [place] # 2.9 H Eos # 0.0 Baso # 0.03 Retic Count 22.12 H* Sodium 138 Potassium 5.3 H Chloride 99 Carbon Dioxide 16 L Anion Gap 28 H BUN 20 Creatinine 1.7 H Est GFR ( Amer) 41 Est GFR (Non-Af Amer) 34 POC Glucose (mg/dL) < 20 L* Random Glucose 21 L* D Calcium 8.0 L Total Bilirubin 17.9 H AST 1165 H ALT 147 H Alkaline Phosphatase 180 H Total Protein 7.5 Albumin 2.9 L Globulin 4.6 Albumin/Globulin Ratio 0.6 L 11/14/16 11/14/16 12:30 13:04 WBC RBC Hgb Hct MCV MCH MCHC RDW Plt Count MPV Gran % Lymph % (Auto) [place] % (Auto) Eos % (Auto) Baso % (Auto) Gran # Lymph # [place] # Eos # Baso # Retic Count Sodium Potassium Chloride Carbon Dioxide Anion Gap BUN Creatinine Est GFR ( Amer) Est GFR (Non-Af Amer) POC Glucose (mg/dL) 38 L* 125 H Random Glucose Calcium Total Bilirubin AST ALT Alkaline Phosphatase Total Protein Albumin Globulin Albumin/Globulin Ratio Assessment & Plan - Assessment and Plan (Free Text) Plan: 36 y/o F with PMH of Sickle cell disease, CHF, Bipolar disorder, Asthma, Liver cirrhosis, and Cerebral palsy presents with sickle cell crisis in the setting of acute elevation of LFT's. Patient had severe elevation of LFT's and Bilirubin overnight. Pt does have a history of cirrhosis with known origin. Patient will be worked up for autoimmune liver disease, ischemic liver disease, and have imaging ordered to further assess the liver. Will continue to monitor patient. Plan: Abdominal US and Duplex US ordered Autoimmune workup Will check Factors 2, 5, 8 Avoid hepatotoxic medication Continue pain control Caution with IVF as patient will become fluid overloaded Continue Zosyn as per CHARLOTTE Frias, PGY-2 <Shaheed Renee - Last Filed: 11/14/16 15:33> Meds - Medications Medications: Current Medications Albuterol Sulfate (Albuterol 0.083% Inhal Rika (2.5 Mg/3 Ml) Ud) 2.5 mg IH [id number] PRN PRN Reason: Shortness of Breath Ergocalciferol (Drisdol 50,000 Intl Units Cap) 1 cap PO QWK [facility] Last Admin: 11/12/16 09:20 Dose: 1 cap Folic Acid (Folic Acid) 1 mg PO DAILY [facility] Last Admin: 11/14/16 10:59 Dose: 1 mg Heparin Sodium (Porcine) (Heparin) 5,000 units SC Q12 ARLETTE PRN Reason: Protocol Last Admin: 11/14/16 10:59 Dose: 5,000 units Hydromorphone HCl (Dilaudid) 0.5 mg IVP Q4H PRN PRN Reason: Pain, severe (8-10) Hydroxyurea (Hydrea) 500 mg PO DAILY [facility] Last Admin: 11/14/16 11:07 Dose: 500 mg Piperacillin Sod/Tazobactam Sod (Zosyn 3.375 In Ns 100ml) 100 mls @ 200 mls/hr IVPB Q6 ARLETTE PRN Reason: Protocol Last Admin: 11/14/16 11:01 Dose: 200 mls/hr Dextrose/Sodium Chloride (Dextrose 5%/0.9% Ns 1000 Ml) 1,000 mls @ 100 mls/hr IV .Q10H [facility] Last Admin: 11/14/16 14:38 Dose: 100 mls/hr Lactic Acid (Lac-Hydrin 12% Cream (140 G)) 0 ea TOP DAILY PRN PRN Reason: Wound Multivitamins/Minerals (Therapeutic-M Tab) 1 tab PO DAILY [facility] Last Admin: 11/14/16 11:01 Dose: 1 tab Non-Formulary Medication (Mometasone [Asmanex Twisthaler 110 Mcg]) 100 mcg IH BID [facility] Last Admin: 11/14/16 13:53 Dose: Not Given Pantoprazole Sodium (Protonix Ec Tab) 40 mg PO 0600 [facility] Last Admin: 11/14/16 05:36 Dose: 40 mg Tramadol HCl (Ultram) 50 mg PO Q6 PRN PRN Reason: Pain, moderate (4-7) Last Admin: 11/14/16 11:02 Dose: 50 mg Results - Vital Signs Recent Vital Signs: Last Vital Signs Temp 98.1 F 11/14/16 07:30 Pulse 97 H 11/14/16 07:30 Resp 20 11/14/16 07:30 BP 95/53 L 11/14/16 07:30 Pulse Ox 98 11/14/16 07:30 - Labs Result Diagrams: 11/14/16 07:30 11/14/16 11:26 Labs: Laboratory Results - last 24 hr 11/14/16 11/14/16 11/14/16 07:30 11:26 12:04 WBC 15.9 H D RBC 2.23 L Hgb 8.1 L Hct 23.0 L MCV 103.1 MCH 36.3 H MCHC 35.2 RDW 24.6 H Plt Count 102 L MPV 11.7 H Gran % 63.2 Lymph % (Auto) 18.3 L [place] % (Auto) 18.2 H Eos % (Auto) 0.1 L Baso % (Auto) 0.2 Gran # 10.05 H Lymph # 2.9 [place] # 2.9 H Eos # 0.0 Baso # 0.03 Retic Count 22.12 H* PT INR Sodium 138 Potassium 5.3 H Chloride 99 Carbon Dioxide 16 L Anion Gap 28 H BUN 20 Creatinine 1.7 H Est GFR ( Amer) 41 Est GFR (Non-Af Amer) 34 POC Glucose (mg/dL) < 20 L* Random Glucose 21 L* D Calcium 8.0 L Iron TIBC % Saturation Total Bilirubin 17.9 H Direct Bilirubin AST 1165 H ALT 147 H Alkaline Phosphatase 180 H Total Protein 7.5 Albumin 2.9 L Globulin 4.6 Albumin/Globulin Ratio 0.6 L Salicylates Acetaminophen 11/14/16 11/14/16 11/14/16 12:30 13:04 14:24 WBC RBC Hgb Hct MCV MCH MCHC RDW Plt Count MPV Gran % Lymph % (Auto) [place] % (Auto) Eos % (Auto) Baso % (Auto) Gran # Lymph # [place] # Eos # Baso # Retic Count PT INR Sodium Potassium Chloride Carbon Dioxide Anion Gap BUN Creatinine Est GFR ( Amer) Est GFR (Non-Af Amer) POC Glucose (mg/dL) 38 L* 125 H Random Glucose Calcium Iron TIBC % Saturation Total Bilirubin 19.1 H* Direct Bilirubin 16.1 H AST 1384 H ALT 182 H Alkaline Phosphatase 177 H Total Protein 7.6 Albumin 2.9 L Globulin 4.7 Albumin/Globulin Ratio 0.6 L Salicylates Acetaminophen 11/14/16 11/14/16 11/14/16 14:24 14:24 14:24 WBC RBC Hgb Hct MCV MCH MCHC RDW Plt Count MPV Gran % Lymph % (Auto) [place] % (Auto) Eos % (Auto) Baso % (Auto) Gran # Lymph # [place] # Eos # Baso # Retic Count PT 32.4 H* INR 3.00 H Sodium Potassium Chloride Carbon Dioxide Anion Gap BUN Creatinine Est GFR ( Amer) Est GFR (Non-Af Amer) POC Glucose (mg/dL) Random Glucose Calcium Iron 410 H TIBC 160 L % Saturation 257 H Total Bilirubin Direct Bilirubin AST ALT Alkaline Phosphatase Total Protein Albumin Globulin Albumin/Globulin Ratio Salicylates < 1 L Acetaminophen < 10.0 L Attending/Attestation - Attestation I have personally seen and examined this patient.: Yes I have fully participated in the care of the patient.: Yes I have reviewed all pertinent clinical information: Yes Notes (Text): 11/14/16 15:31 36 year old female with h/o sickle cell disease, CHF, bipolar, cirrhosis, CP, we are consulted for elevated lfts. 1. Elevated lfts Plan: -Cholestatic pattern, predominantly conjugated hyperbilirubinemia -viral serologies negative -check autoimmune -US abdomen with dopplers -likely related to sickle crisis in the setting of chronic liver disease -supportive care with hydration -abnormal INR noted, check factors II, V, VIII -if encephalopathy develops, would consider consultation with transplant center
[2016-11-14 14:48] LABS: BILIRUBIN,TOTAL 19.1 mg/dL (0.2-1.3)
[2016-11-14 15:04] LABS: IRON 410 ug/dL (45-180)
[2016-11-14] MEDS ORDERED: Vancomycin 750mg 750 MG/250 ML BAG IVPB SCH (15:45)
[2016-11-14] MEDS: HYDROmorphone 0.5 mg/0.5 ml ISec IVP PRN ×2 (16:39→21:22)
[2016-11-14 17:15] LABS: CALCIUM 8.3 mg/dL (8.4-10.5); POTASSIUM 5.1 mmol/L (3.6-5.0)
--- NOTE | 2016-11-14 17:35 | CP.PCM.PN ---
Subjective - Date & Time of Evaluation Date of Evaluation: 11/14/16 Time of Evaluation: 16:30 - Subjective Subjective: Infectious Disease Follow Up: November 14, 2016 36 yo AA female well known to me from previous hospitalizations at [facility] and [facility] presented with generalized pains and admitted for Sickle Cell vasoocclusive Crisis. The patient was [place] [facility] [place] She returns with abdominal pain, nausea, and vomiting. The patient did not exhibit a fever while hospitalized so far but came very close with a 100.0 F. Patient with nausea and vomiting and diarrhea. Her blood pressure is lower than her usual. Started on Zosyn for antibiotic treatment. Sudden elevation of LFTs. Objective - Vital Signs/Intake and Output Vital Signs (last 24 hours): Temp Pulse Resp BP Pulse Ox 97.1 F L 93 H 20 98/48 L 93 L 11/14/16 16:00 11/14/16 16:00 11/14/16 16:00 11/14/16 16:00 11/14/16 16:00 Intake and Output: 11/14/16 11/14/16 06:59 18:59 Intake Total 360 Balance 360 - Medications Medications: Current Medications Albuterol Sulfate (Albuterol 0.083% Inhal Rika (2.5 Mg/3 Ml) Ud) 2.5 mg IH [id number] PRN PRN Reason: Shortness of Breath Ergocalciferol (Drisdol 50,000 Intl Units Cap) 1 cap PO QWK [facility] Last Admin: 11/12/16 09:20 Dose: 1 cap Folic Acid (Folic Acid) 1 mg PO DAILY [facility] Last Admin: 11/14/16 10:59 Dose: 1 mg Heparin Sodium (Porcine) (Heparin) 5,000 units SC Q12 ARLETTE PRN Reason: Protocol Last Admin: 11/14/16 10:59 Dose: 5,000 units Hydromorphone HCl (Dilaudid) 0.5 mg IVP Q4H PRN PRN Reason: Pain, severe (8-10) Last Admin: 11/14/16 16:39 Dose: 0.5 mg Hydroxyurea (Hydrea) 500 mg PO DAILY [facility] Last Admin: 11/14/16 11:07 Dose: 500 mg Piperacillin Sod/Tazobactam Sod (Zosyn 3.375 In Ns 100ml) 100 mls @ 200 mls/hr IVPB Q6 ARLETTE PRN Reason: Protocol Last Admin: 11/14/16 11:01 Dose: 200 mls/hr Dextrose/Sodium Chloride (Dextrose 5%/0.9% Ns 1000 Ml) 1,000 mls @ 100 mls/hr IV .Q10H [facility] Last Admin: 11/14/16 14:38 Dose: 100 mls/hr Vancomycin HCl (Vancomycin 750 Mg In Ns) 750 mg in 250 mls @ 167 mls/hr IVPB Q12H ARLETTE PRN Reason: Protocol Last Admin: 11/14/16 16:37 Dose: 167 mls/hr Lactic Acid (Lac-Hydrin 12% Cream (140 G)) 0 ea TOP DAILY PRN PRN Reason: Wound Multivitamins/Minerals (Therapeutic-M Tab) 1 tab PO DAILY [facility] Last Admin: 11/14/16 11:01 Dose: 1 tab Non-Formulary Medication (Mometasone [Asmanex Twisthaler 110 Mcg]) 100 mcg IH BID [facility] Last Admin: 11/14/16 13:53 Dose: Not Given Pantoprazole Sodium (Protonix Ec Tab) 40 mg PO 0600 [facility] Last Admin: 11/14/16 05:36 Dose: 40 mg Tramadol HCl (Ultram) 50 mg PO Q6 PRN PRN Reason: Pain, moderate (4-7) Last Admin: 11/14/16 11:02 Dose: 50 mg - Labs Labs: 11/14/16 07:30 11/14/16 16:47 PT 32.4 Seconds (9.9-11.8) H* 11/14/16 14:24 INR 3.00 (0.93-1.08) H 11/14/16 14:24 - Constitutional Appears: Non-toxic, Chronically Ill - Head Exam Head Exam: ATRAUMATIC, NORMOCEPHALIC - Eye Exam Eye Exam: EOMI, PERRL Pupil Exam: NORMAL ACCOMODATION, PERRL - ENT Exam ENT Exam: Mucous Membranes Moist, Normal External Ear Exam, TM's Normal Bilaterally - Neck Exam Neck Exam: Full ROM, Normal Inspection - Respiratory Exam Respiratory Exam: Clear to Ausculation Bilateral, NORMAL BREATHING PATTERN. absent: Rales, Rhonchi, Wheezes - Cardiovascular Exam Cardiovascular Exam: REGULAR RHYTHM, RRR, +S1, +S2 - GI/Abdominal Exam GI & Abdominal Exam: Soft, Normal Bowel Sounds. absent: Distended, Tenderness - Extremities Exam Extremities Exam: Full ROM, Normal Inspection - Neurological Exam Neurological Exam: Alert, Awake, CN II-XII Intact, Oriented x3 - Psychiatric Exam Psychiatric exam: Depressed, Flat Affect - Skin Skin Exam: Intact, Normal Color Assessment and Plan - Assessment and Plan (Free Text) Assessment: 36 yo AA female with known Sickle Cell disease presenting with diarrhea and abdominal pain. Low blood pressure/borderline hypotension. Supportive care. Velarde cultures. No leukocytosis noted however. Coagulase negative staph according to FISH studies. Sudden increase in LFTs and creatinine. Will stop Zosyn and hold on any further antibiotics at this time. Zosyn can increase the LFTs which is listed as a potential serious reaction for Zosyn. Thank you for allowing me to participate in the care of the patient, we will follow with you.
--- NOTE | 2016-11-14 17:36 | CP.PCM.PN ---
<Esteban Aly - Last Filed: 11/14/16 17:32> Subjective - Date & Time of Evaluation Date of Evaluation: 11/14/16 Time of Evaluation: 13:00 - Subjective Subjective: Patient has been seen and examined. She complains of generalized tenderness more prominent in the lower ext. and abdomen. No complaints overnight. Day was complicated by asymptomatic hypoglycemia with sugars in the 20s. Patient was given D50. Objective - Vital Signs/Intake and Output Vital Signs (last 24 hours): Temp Pulse Resp BP Pulse Ox 97.1 F L 93 H 20 98/48 L 93 L 11/14/16 16:00 11/14/16 16:00 11/14/16 16:00 11/14/16 16:00 11/14/16 16:00 Intake and Output: 11/14/16 11/14/16 06:59 18:59 Intake Total 360 Balance 360 - Medications Medications: Current Medications Albuterol Sulfate (Albuterol 0.083% Inhal Rika (2.5 Mg/3 Ml) Ud) 2.5 mg IH [id number] PRN PRN Reason: Shortness of Breath Ergocalciferol (Drisdol 50,000 Intl Units Cap) 1 cap PO QWK ARLETTE Last Admin: 11/12/16 09:20 Dose: 1 cap Folic Acid (Folic Acid) 1 mg PO DAILY ARLETTE Last Admin: 11/14/16 10:59 Dose: 1 mg Heparin Sodium (Porcine) (Heparin) 5,000 units SC Q12 ARLETTE PRN Reason: Protocol Last Admin: 11/14/16 10:59 Dose: 5,000 units Hydromorphone HCl (Dilaudid) 0.5 mg IVP Q4H PRN PRN Reason: Pain, severe (8-10) Last Admin: 11/14/16 16:39 Dose: 0.5 mg Hydroxyurea (Hydrea) 500 mg PO DAILY ARLETTE Last Admin: 11/14/16 11:07 Dose: 500 mg Piperacillin Sod/Tazobactam Sod (Zosyn 3.375 In Ns 100ml) 100 mls @ 200 mls/hr IVPB Q6 ARLETTE PRN Reason: Protocol Last Admin: 11/14/16 11:01 Dose: 200 mls/hr Dextrose/Sodium Chloride (Dextrose 5%/0.9% Ns 1000 Ml) 1,000 mls @ 100 mls/hr IV .Q10H ARLETTE Last Admin: 11/14/16 14:38 Dose: 100 mls/hr Vancomycin HCl (Vancomycin 750 Mg In Ns) 750 mg in 250 mls @ 167 mls/hr IVPB Q12H ARLETTE PRN Reason: Protocol Last Admin: 11/14/16 16:37 Dose: 167 mls/hr Lactic Acid (Lac-Hydrin 12% Cream (140 G)) 0 ea TOP DAILY PRN PRN Reason: Wound Multivitamins/Minerals (Therapeutic-M Tab) 1 tab PO DAILY [facility] Last Admin: 11/14/16 11:01 Dose: 1 tab Non-Formulary Medication (Mometasone [Asmanex Twisthaler 110 Mcg]) 100 mcg IH BID [facility] Last Admin: 11/14/16 13:53 Dose: Not Given Pantoprazole Sodium (Protonix Ec Tab) 40 mg PO 0600 [facility] Last Admin: 11/14/16 05:36 Dose: 40 mg Tramadol HCl (Ultram) 50 mg PO Q6 PRN PRN Reason: Pain, moderate (4-7) Last Admin: 11/14/16 11:02 Dose: 50 mg - Labs Labs: 11/14/16 07:30 11/14/16 16:47 PT 32.4 Seconds (9.9-11.8) H* 11/14/16 14:24 INR 3.00 (0.93-1.08) H 11/14/16 14:24 - Constitutional Appears: Non-toxic - Head Exam Head Exam: ATRAUMATIC, NORMAL INSPECTION, NORMOCEPHALIC - Eye Exam Eye Exam: Normal appearance - ENT Exam ENT Exam: Mucous Membranes Moist - Respiratory Exam Additional comments: slight rales on left Upper lobe - Cardiovascular Exam Cardiovascular Exam: +S1, +S2 - GI/Abdominal Exam GI & Abdominal Exam: Soft, Tenderness - Extremities Exam Additional comments: +1 Edema - Neurological Exam Neurological Exam: Alert, Awake, Oriented x3 - Psychiatric Exam Psychiatric exam: Agitated, Anxious Assessment and Plan - Assessment and Plan (Free Text) Assessment: 36 year old AA female with past medical history of sickle cell disease, Bipolar disorder, cerebral palsy, Asthma, and CHF presents to the emergency department complaining of abdominal pain located in the RUQ. She states the pain started today, and describes it as a constant pain. She also states she has been vomiting up bile and has been nauseous. She is being worked up for abdominal pain secondary to her sickle cell disease. Plan: Abdominal Pain likely secondary to sickle cell disease - Hgb of 8.4 down from 9.1 yesterday. Likely Dilutional. Transfuse if < 7 - Reticulocyte count still elevated - Hydroxyurea - Dilauded 0.5 Q6 - Folic acid and MVI - Heme consulted - Abdominal US and Duplex US ordered, Autoimmune workup, check Factors 2, 5, 8 per GI -Dextrose 100ml/hr Bacteremia -Gram positive Cocci found in blood cultures -Vancomycin and Zosyn started -F/U with ID -Urine cultures pending Hypomagnesia -Magnesium 1.5 continue to monitor CHF Chronic - EF of 39.7 from June 2016 -Lung sounds are clear -Strict Is and Os -Daily weights History of Bipolar Disorder -continue home medications GI/DVT prophylaxis -pantoprazole started -SCD Patient seen, examined, and discussed with Attending Dispo: Bactremia found in blood stream. Vanc and Zosyn started. Will follow up with ID recs tomorrow. Esteban Aly PGY-1 <Elzbieta ANGUIANO,Jena - Last Filed: 11/15/16 12:31> Objective - Vital Signs/Intake and Output Vital Signs (last 24 hours): Temp Pulse Resp BP Pulse Ox 97.5 F L 88 18 108/75 97 11/15/16 07:26 11/15/16 07:26 11/15/16 07:26 11/15/16 10:04 11/15/16 07:26 Intake and Output: 11/15/16 11/15/16 06:59 18:59 Intake Total 60 120 Balance 60 120 - Medications Medications: Current Medications Albuterol Sulfate (Albuterol 0.083% Inhal Rika (2.5 Mg/3 Ml) Ud) 2.5 mg IH [id number] PRN PRN Reason: Shortness of Breath Ergocalciferol (Drisdol 50,000 Intl Units Cap) 1 cap PO QWK [facility] Last Admin: 11/12/16 09:20 Dose: 1 cap Folic Acid (Folic Acid) 1 mg PO DAILY [facility] Last Admin: 11/15/16 10:02 Dose: 1 mg Furosemide (Lasix) 20 mg IVP BID [facility] Last Admin: 11/15/16 10:04 Dose: 20 mg Heparin Sodium (Porcine) (Heparin) 5,000 units SC Q12 ARLETTE PRN Reason: Protocol Last Admin: 11/15/16 10:02 Dose: 5,000 units Hydromorphone HCl (Dilaudid) 1 mg IVP Q3H PRN PRN Reason: Pain, severe (8-10) Last Admin: 11/15/16 11:34 Dose: 1 mg Hydroxyurea (Hydrea) 500 mg PO DAILY [facility] Last Admin: 11/15/16 10:05 Dose: 500 mg Deferoxamine Mesylate 1,000 mg (/ Sodium Chloride) 500 mls @ 41.667 mls/hr IV 2100 ARLETTE Stop: 11/19/16 08:59 Last Admin: 11/14/16 21:21 Dose: 41.667 mls/hr Vancomycin HCl (Vancomycin 1gm) 1 gm in 250 mls @ 167 mls/hr IVPB DAILY ARLETTE PRN Reason: Protocol Lactic Acid (Lac-Hydrin 12% Cream (140 G)) 0 ea TOP DAILY PRN PRN Reason: Wound Multivitamins/Minerals (Therapeutic-M Tab) 1 tab PO DAILY [facility] Last Admin: 11/15/16 10:02 Dose: 1 tab Non-Formulary Medication (Mometasone [Asmanex Twisthaler 110 Mcg]) 100 mcg IH BID [facility] Last Admin: 11/14/16 17:51 Dose: Not Given Pantoprazole Sodium (Protonix Ec Tab) 40 mg PO 0600 [facility] Last Admin: 11/15/16 06:35 Dose: 40 mg Tramadol HCl (Ultram) 50 mg PO Q6 PRN PRN Reason: Pain, moderate (4-7) Last Admin: 11/15/16 08:55 Dose: 50 mg - Labs Labs: 11/15/16 07:03 11/15/16 09:18 PT 32.2 Seconds (9.9-11.8) H* 11/15/16 07:03 INR 2.98 (0.93-1.08) H 11/15/16 07:03 Attending/Attestation - Attestation I have personally seen and examined this patient.: Yes I have fully participated in the care of the patient.: Yes I have reviewed all pertinent clinical information, including history, physical exam and plan: Yes Notes (Text): 11/15/16 12:27 Patient was seen and examined with medical lead. 35 year old female with past medical history of sickle cell disease, hypertension, asthma, cardiomyopathy, EF 39% ,cerebral palsy, and bipolar/ depression , multiple admission for recurrent UTI and sickle cell crisis, has chronically elevated transaminase is admitted with sickle cell crisis, also has underlying sepsis , Patient liver functions are wosened today, Transaminase are very elevated, could be du to shock liver due to hypotension, also has underlying chronic liver disease on USG.We will get GI consult, avoid hepato toxic medications. Patient renal functions are also worsened today likely due to hypotension and sepsis, we will get UA, urine electrolyte, urinary creatinin. No hydronephrosis on USG. Prognosis is guarded. Management plan was discussed in detail with patient Education was provided.
--- NOTE | 2016-11-14 18:43 | CARD ---
APPROVED REPORT EKG Measurement Heart [id number] <Conclusion> Atrial fibrillation with rapid ventricular response Low voltage QRS Nonspecific T wave abnormality, probably digitalis effect Abnormal ECG
--- NOTE | 2016-11-14 18:48 | RAD ---
HISTORY: Pulmonary Congestion COMPARISON: 11/05/2016 FINDINGS: The right IJV line terminates at the cavoatrial junction. LUNGS: There is persistent severe pulmonary venous congestion. There is also left lower lobe atelectasis. PLEURA: No significant pleural effusion identified, no pneumothorax apparent. CARDIOVASCULAR: There is persistent moderate cardiomegaly. OSSEOUS STRUCTURES: No significant abnormalities. VISUALIZED UPPER ABDOMEN: Normal. OTHER FINDINGS: None. IMPRESSION: No change in severe pulmonary venous congestion. Persistent moderate cardiomegaly.
--- NOTE | 2016-11-14 20:18 | US ---
EXAM: US Abdomen Complete EXAM DATE/TIME: 11/14/2016 12:26 PM CLINICAL HISTORY: The patient age is 36 years old and is female; Abnormal findings; Abnormal lab test; Elevated liver enzymes; Additional info: Elevated lft Facility exam id and description: Us abd abdomen complete TECHNIQUE: Real-time ultrasound of the abdomen (complete) with image documentation. COMPARISON: CT - ABD PELVIS PO IV CONTRAST 12/22/2015 3:00:18 PM FINDINGS: Liver: The liver is increased in echogenicity. There is increased nodularity of the hepatic contour, suggestive of cirrhosis. The liver measures 16.1 x 13.3 cm. Gallbladder: The gallbladder is absent. Common bile duct: The common bile duct measures 0.6 cm in diameter. No dilation. Pancreas: There is limited evaluation of the pancreas. Kidneys: The right kidney measures 10.9 x 4.2 x 5.0 cm. The left kidney measures 10.1 x 5.3 x 5.6 cm. No shadowing stones. No hydronephrosis. Spleen: The spleen is poorly visualized/absent. Aorta: Limited evaluation. Inferior vena cava: Patent, as visualized. IMPRESSION: 1. The liver is increased in echogenicity. There is increased nodularity of the hepatic contour, suggestive of cirrhosis. 2. The spleen is poorly visualized/absent. 3. The gallbladder is absent. 4. Additional findings described above.
[2016-11-14] MEDS: SODIUM CHLORIDE 0.9% IV SCH (21:21)
[2016-11-14] MEDS: DEFEROXAMINE IV SCH (21:21)
[2016-11-15 00:55] LABS: PH,URINE 6.5 (4.7-8.0); URINE BILIRUBIN LARGE (NEGATIVE); URINE BLOOD MODERATE (NEGATIVE); URINE GLUCOSE (UA) 100 mg/dL (NEGATIVE); URINE KETONE TRACE mg/dL (NEGATIVE); URINE LEUKOCYTE ESTERASE NEGATIVE Leu/uL (NEGATIVE); URINE PROTEIN 100 mg/dL (<30 mg/dL)
[2016-11-15 00:56] LABS: URINE APPEARANCE CLOUDY (CLEAR); URINE COLOR BROWN (YELLOW)
[2016-11-15 01:08] LABS: URINE EPITHELIAL CELLS 0 - 2 /hpf (0-5); URINE WBC 0 - 2 /hpf (0-6)
[2016-11-15 01:10] LABS: URINE AMORPHOUS SEDIMENT SMALL; URINE BACTERIA FEW (NEG)
[2016-11-15] MEDS: HYDROmorphone 0.5 mg/0.5 ml ISec IVP PRN ×6 (02:35→21:55)
[2016-11-15] MEDS: Pantoprazole 40 mg EC Tab PO SCH (06:35)
[2016-11-15 07:11] LABS: MEAN CELL VOLUME 103.2 fl (80.0-105.0); MEAN CORPUSCULAR HEMOGLOBIN 35.9 pg (25.0-35.0); MEAN CORPUSCULAR HGB CONC 34.8 g/dl (31.0-37.0); MEAN PLATELET VOLUME 11.2 fl (7.0-11.0); PLATELET COUNT 143 10^3/uL (120.0-450.0); RED CELL DISTRIBUTION WIDTH 26.1 % (11.5-14.5); WHITE BLOOD COUNT 21.5 10^3/ul (4.5-11.0)
[2016-11-15 07:18] LABS: RETIC% 19.71 % (0.5-1.5)
[2016-11-15 07:22] LABS: INR 2.98 (0.93-1.08)
[2016-11-15 07:34] LABS: HEMATOCRIT 22.4 % (36.0-48.0)
[2016-11-15 07:45] LABS: ALB/GLOB RATIO 0.6 (1.1-1.8); CALCIUM 7.9 mg/dL (8.4-10.5); MAGNESIUM 1.6 mg/dL (1.7-2.2); PHOSPHOROUS 5.9 mg/dL (2.5-4.5); POTASSIUM 5.2 mmol/L (3.6-5.0); TOTAL PROTEIN 7.2 g/dL (5.8-8.3)
[2016-11-15 08:05] LABS: BILIRUBIN,TOTAL 21.1 mg/dL (0.2-1.3)
--- NOTE | 2016-11-15 09:09 | US ---
PROCEDURE: Portal vein duplex ultrasound. CLINICAL HISTORY: Cirrhosis. Deteriorating liver function. Evaluate for portal vein thrombosis. PHYSICIAN(S): Noé Whalen M.D. FINDINGS: Visualization is limited due to bowel gas. The extrahepatic portal vein is patent with hepatopetal flow. No sonographic evidence for thrombus or obstruction is seen. The 3 hepatic veins are visualized centrally and patent. The hepatic artery is patent. No significant ascites is appreciated. IMPRESSION: 1. Patent portal vein with hepatopetal flow. 2. Limited study.
[2016-11-15] MEDS ORDERED: Sod Polystyrene Sulf 15 gm/60 ml Oral Susp PO ONE (09:22)
--- NOTE | 2016-11-15 09:26 | CP.PCM.PN ---
<SolitarioStephanie - Last Filed: 11/15/16 09:35> Subjective - Date & Time of Evaluation Date of Evaluation: 11/15/16 Time of Evaluation: : - Subjective Subjective: Gastroenterology Fellow/PGY5 Progress Note Patient notes continued diffuse abdominal pain. Tolerating liquid diet. Having urine incontinence and no bowel movement per nursing. Oriented to person, place , and time with slow response to questioning. 12-point review of systems negative except for as above. Objective - Vital Signs/Intake and Output Vital Signs (last 24 hours): Temp Pulse Resp BP Pulse Ox 97.5 F L 88 18 91/58 L 97 11/15/16 07:26 11/15/16 07:26 11/15/16 07:26 11/15/16 07:26 11/15/16 07:26 Intake and Output: 11/15/16 11/15/16 06:59 18:59 Intake Total 60 120 Balance 60 120 - Medications Medications: Current Medications Albuterol Sulfate (Albuterol 0.083% Inhal Rika (2.5 Mg/3 Ml) Ud) 2.5 mg IH [id number] PRN PRN Reason: Shortness of Breath Ergocalciferol (Drisdol 50,000 Intl Units Cap) 1 cap PO QWK [facility] Last Admin: 11/12/16 09:20 Dose: 1 cap Folic Acid (Folic Acid) 1 mg PO DAILY [facility] Last Admin: 11/14/16 10:59 Dose: 1 mg Furosemide (Lasix) 20 mg IVP BID [facility] Heparin Sodium (Porcine) (Heparin) 5,000 units SC Q12 ARLETTE PRN Reason: Protocol Last Admin: 11/14/16 21:22 Dose: 5,000 units Hydromorphone HCl (Dilaudid) 0.5 mg IVP Q4H PRN PRN Reason: Pain, severe (8-10) Last Admin: 11/15/16 06:35 Dose: 0.5 mg Hydroxyurea (Hydrea) 500 mg PO DAILY [facility] Last Admin: 11/14/16 11:07 Dose: 500 mg Deferoxamine Mesylate 1,000 mg (/ Sodium Chloride) 500 mls @ 41.667 mls/hr IV 2100 ARLETTE Stop: 11/19/16 08:59 Last Admin: 11/14/16 21:21 Dose: 41.667 mls/hr Lactic Acid (Lac-Hydrin 12% Cream (140 G)) 0 ea TOP DAILY PRN PRN Reason: Wound Multivitamins/Minerals (Therapeutic-M Tab) 1 tab PO DAILY [facility] Last Admin: 11/14/16 11:01 Dose: 1 tab Non-Formulary Medication (Mometasone [Asmanex Twisthaler 110 Mcg]) 100 mcg IH BID [facility] Last Admin: 11/14/16 17:51 Dose: Not Given Pantoprazole Sodium (Protonix Ec Tab) 40 mg PO 0600 [facility] Last Admin: 11/15/16 06:35 Dose: 40 mg Tramadol HCl (Ultram) 50 mg PO Q6 PRN PRN Reason: Pain, moderate (4-7) Last Admin: 11/15/16 08:55 Dose: 50 mg - Labs Labs: 11/15/16 07:03 11/15/16 07:03 PT 32.2 Seconds (9.9-11.8) H* 11/15/16 07:03 INR 2.98 (0.93-1.08) H 11/15/16 07:03 - Constitutional Appears: Non-toxic, No Acute Distress, Chronically Ill - Head Exam Head Exam: ATRAUMATIC, NORMOCEPHALIC - Eye Exam Eye Exam: EOMI, PERRL Pupil Exam: PERRL. absent: Miosis, Mydriatic - ENT Exam ENT Exam: Mucous Membranes Moist, Normal Oropharynx - Neck Exam Neck Exam: Normal Inspection - Respiratory Exam Respiratory Exam: Clear to Ausculation Bilateral. absent: Rales, Rhonchi, Wheezes - Cardiovascular Exam Cardiovascular Exam: RRR, +S1, +S2. absent: Gallop, Rubs - GI/Abdominal Exam GI & Abdominal Exam: Soft, Tenderness, Normal Bowel Sounds. absent: Distended, Firm, Guarding, Rigid, Organomegaly, Rebound Additional comments: diffuse tenderness to palpation - Neurological Exam Neurological Exam: Alert, Awake, Oriented x3 - Psychiatric Exam Psychiatric exam: Normal Affect, Normal Mood - Skin Skin Exam: Dry, Intact, Normal Color, Warm Assessment and Plan - Assessment and Plan (Free Text) Assessment: 36 year old female with history of sCHF, EF 35-40% with Grade 3 diastolic dysfunction, Bipolar disorder, asthma, cerebral palsy, sickle cell disease, and cirrhosis presenting with abdominal pain, nausea, and vomiting. Active treatment of sickle cell crisis with GI consultation for acute elevation of chronic elevated transaminases and conjugated hyperbilirubinemia. No prior EGD or colonoscopy. Plan: >MELD 35 >ischemic hepatitis 2/2 sickle cell crisis with concern for impending progression to liver failure >signs of iron overload with suspicion of secondary hemochromatosis as etiology of underlying cirrhosis >abdominal U/S- no ascites >Duplex abdominal U/S-patent hepatic and portal veins >autoimmune workup - negative ASMA/AMA/PARVIN (12/2015), negative Hepatitis panel ( 05/2016) >11/14/16 Fe/TIBC ratio>2, ferritin >[id number] with no transfusion this admission >ordered ceruloplasmin and HFE gene to complete autoimmune workup >aggressive IVFs >supportive care: pain control, antiemetics >pending Factors II, V, VIII to differentiate DIC, liver failure, vitamin K deficiency >close monitoring for hepatic encephalopathy, at times having slow mentation >ordered Lactulose 20g BID titrate to goal 2-3 BMs/ day >low suspicion for hepatorenal syndrome- no ascites on U/S, Usodium 46 >FENA 0.5- hypovolemic, ischemia >contacted [facility] Liver transplant center- to discuss possible transfer- Hepatology fellow Dr. Rockwell- pager [phone] <Yusuf Garcia - Last Filed: 11/15/16 09:56> Objective - Vital Signs/Intake and Output Vital Signs (last 24 hours): Temp Pulse Resp BP Pulse Ox 97.5 F L 88 18 91/58 L 97 11/15/16 07:26 11/15/16 07:26 11/15/16 07:26 11/15/16 07:26 11/15/16 07:26 Intake and Output: 11/15/16 11/15/16 06:59 18:59 Intake Total 60 120 Balance 60 120 - Medications Medications: Current Medications Albuterol Sulfate (Albuterol 0.083% Inhal Rika (2.5 Mg/3 Ml) Ud) 2.5 mg IH [id number] PRN PRN Reason: Shortness of Breath Ergocalciferol (Drisdol 50,000 Intl Units Cap) 1 cap PO QWK [facility] Last Admin: 11/12/16 09:20 Dose: 1 cap Folic Acid (Folic Acid) 1 mg PO DAILY [facility] Last Admin: 11/14/16 10:59 Dose: 1 mg Furosemide (Lasix) 20 mg IVP BID [facility] Heparin Sodium (Porcine) (Heparin) 5,000 units SC Q12 ARLETTE PRN Reason: Protocol Last Admin: 11/14/16 21:22 Dose: 5,000 units Hydromorphone HCl (Dilaudid) 0.5 mg IVP Q4H PRN PRN Reason: Pain, severe (8-10) Last Admin: 11/15/16 06:35 Dose: 0.5 mg Hydroxyurea (Hydrea) 500 mg PO DAILY [facility] Last Admin: 11/14/16 11:07 Dose: 500 mg Deferoxamine Mesylate 1,000 mg (/ Sodium Chloride) 500 mls @ 41.667 mls/hr IV 2100 [facility] Stop: 11/19/16 08:59 Last Admin: 11/14/16 21:21 Dose: 41.667 mls/hr Lactic Acid (Lac-Hydrin 12% Cream (140 G)) 0 ea TOP DAILY PRN PRN Reason: Wound Multivitamins/Minerals (Therapeutic-M Tab) 1 tab PO DAILY [facility] Last Admin: 11/14/16 11:01 Dose: 1 tab Non-Formulary Medication (Mometasone [Asmanex Twisthaler 110 Mcg]) 100 mcg IH BID [facility] Last Admin: 11/14/16 17:51 Dose: Not Given Pantoprazole Sodium (Protonix Ec Tab) 40 mg PO 0600 [facility] Last Admin: 11/15/16 06:35 Dose: 40 mg Tramadol HCl (Ultram) 50 mg PO Q6 PRN PRN Reason: Pain, moderate (4-7) Last Admin: 11/15/16 08:55 Dose: 50 mg - Labs Labs: 11/15/16 07:03 11/15/16 09:18 PT 32.2 Seconds (9.9-11.8) H* 11/15/16 07:03 INR 2.98 (0.93-1.08) H 11/15/16 07:03 Attending/Attestation - Attestation I have personally seen and examined this patient.: Yes I have fully participated in the care of the patient.: Yes I have reviewed all pertinent clinical information, including history, physical exam and plan: Yes Notes (Text): 11/15/16 09:49 I have seen and examined patient with GI fellow. Patient seen resting in bed comfortably, though continues to endorse diffuse abdominal pain and lower extremity swelling. She denies nausea, vomiting, fever/chills. Tolerating PO liquids without difficulty. CHF Sickle cell disease Cerebral palsy, bipolar disorder Abdominal pain Cirrhosis - likely secondary to hemochromotosis given clinical picture Transaminitis - multifactorial etiology given underlying chronic liver disease in setting of acute sickle cell crisis Abdominal US/duplex reviewed by me showing patent portal vein, no ascites - Liquid diet, advance slowly as tolerated - Awaiting results of ceruloplasmin, HFE gene testing - Continue with supportive care, continue to monitor LFTs - Follow up hematology recommendations - Continue with lactulose therapy for prevention of HE, titrate so patient has 2 -3 bowel movements daily - Continue to monitor creatinine, follow up nephrology recommendations. Given clinical scenario, HRS must be entertained. - Patient with significantly elevated MELD and given acuity of medical condition , would suggest potential transfer to tertiary care facility with liver transplant capability and further management. Will discuss with [facility] and make further recommendations.
[2016-11-15 09:33] LABS: ALB/GLOB RATIO 0.6 (1.1-1.8); POTASSIUM 5.1 mmol/L (3.6-5.0); TOTAL PROTEIN 7.5 g/dL (5.8-8.3)
[2016-11-15 09:37] LABS: BILIRUBIN,TOTAL 21.6 mg/dL (0.2-1.3)
[2016-11-15] MEDS ORDERED: HYDROmorphone 1 mg/ml ISec IVP STA (09:42)
[2016-11-15] MEDS: Multivitamin With Minerals Tab PO SCH (10:02)
[2016-11-15] MEDS ORDERED: Meropenem 500 MG in Sodium Chloride 0.9% 100 ML IVPB SCH (10:15)
[2016-11-15 10:28] LABS: TROPONIN I 0.1 ng/mL
[2016-11-15 10:40] LABS: BAND 3 % (0-2)
[2016-11-15 10:41] LABS: ATYPICAL LYMPHOCYTE 1 % (0.0-0.0); EOSINOPHIL 1 % (0.0-3.0); PROMYELOCYTE 1 %
[2016-11-15 10:43] LABS: NEUTROPHIL 74 % (50.0-70.0)
[2016-11-15 10:44] LABS: PLATELET ESTIMATE NORMAL (NORMAL)
[2016-11-15 10:52] LABS: ANISOCYTOSIS 3+; CORRECTED WBC 13.4 K/mm3 (4.5-11.0); HYPOCHROMIA 2+; LARGE PLATELETS PRESENT; NUCLEATED RED BLOOD CELL 60 %; POIKILOCYTOSIS 2+; POLYCHROMASIA SLIGHT
[2016-11-15 10:53] LABS: OVALOCYTES 1+; TARGET CELLS SLIGHT; TEAR DROP CELLS SLIGHT
[2016-11-15] MEDS ORDERED: Sodium Chloride 0.9% 500 ML IV STA (11:26)
--- NOTE | 2016-11-15 13:04 | CP.PCM.PN ---
Subjective - Date & Time of Evaluation Date of Evaluation: 11/15/16 Time of Evaluation: 11:15 - Subjective Subjective: Infectious Disease Follow Up: November 15, 2016 36 yo AA female well known to me from previous hospitalizations at [facility] ([facility]3] and [facility] presented with generalized pains and admitted for Sickle Cell vasoocclusive Crisis. The patient was just discharged from [facility] a few days ago. She returns with abdominal pain, nausea, and vomiting. The patient did not exhibit a fever while hospitalized so far but came very close with a 100.0 F. Patient with nausea and vomiting and diarrhea. Her blood pressure is lower than her usual. Started on Zosyn for antibiotic treatment. Sudden elevation of LFTs. Zosyn stopped on 11/14/2016. Impending liver failure ? Acute Kidney Injury. Noted Vancomycin restarted. Would continue with Cefepime for the time being. There is a leukocytosis of 21.5 although corrected WBC is 13.4. Patient appears swollen in general. Noted GI notes discussing liver transplant. Supportive care. Case discussed with Dr. Noble. Renal dosing of antibiotics. Objective - Vital Signs/Intake and Output Vital Signs (last 24 hours): Temp Pulse Resp BP Pulse Ox 97.5 F L 88 18 108/75 97 11/15/16 07:26 11/15/16 07:26 11/15/16 07:26 11/15/16 10:04 11/15/16 07:26 Intake and Output: 11/15/16 11/15/16 06:59 18:59 Intake Total 60 120 Balance 60 120 - Medications Medications: Current Medications Albuterol Sulfate (Albuterol 0.083% Inhal Rika (2.5 Mg/3 Ml) Ud) 2.5 mg IH [id number] PRN PRN Reason: Shortness of Breath Ergocalciferol (Drisdol 50,000 Intl Units Cap) 1 cap PO QWK ARLETTE Last Admin: 11/12/16 09:20 Dose: 1 cap Folic Acid (Folic Acid) 1 mg PO DAILY ARLETTE Last Admin: 11/15/16 10:02 Dose: 1 mg Furosemide (Lasix) 20 mg IVP BID ARLETTE Last Admin: 11/15/16 10:04 Dose: 20 mg Heparin Sodium (Porcine) (Heparin) 5,000 units SC Q12 ARLETTE PRN Reason: Protocol Last Admin: 11/15/16 10:02 Dose: 5,000 units Hydromorphone HCl (Dilaudid) 1 mg IVP Q3H PRN PRN Reason: Pain, severe (8-10) Last Admin: 11/15/16 11:34 Dose: 1 mg Hydroxyurea (Hydrea) 500 mg PO DAILY [facility] Last Admin: 11/15/16 10:05 Dose: 500 mg Deferoxamine Mesylate 1,000 mg (/ Sodium Chloride) 500 mls @ 41.667 mls/hr IV 2100 ARLETTE Stop: 11/19/16 08:59 Last Admin: 11/14/16 21:21 Dose: 41.667 mls/hr Vancomycin HCl (Vancomycin 1gm) 1 gm in 250 mls @ 167 mls/hr IVPB DAILY ARLETTE PRN Reason: Protocol Lactic Acid (Lac-Hydrin 12% Cream (140 G)) 0 ea TOP DAILY PRN PRN Reason: Wound Multivitamins/Minerals (Therapeutic-M Tab) 1 tab PO DAILY [facility] Last Admin: 11/15/16 10:02 Dose: 1 tab Non-Formulary Medication (Mometasone [Asmanex Twisthaler 110 Mcg]) 100 mcg IH BID [facility] Last Admin: 11/14/16 17:51 Dose: Not Given Pantoprazole Sodium (Protonix Ec Tab) 40 mg PO 0600 [facility] Last Admin: 11/15/16 06:35 Dose: 40 mg Tramadol HCl (Ultram) 50 mg PO Q6 PRN PRN Reason: Pain, moderate (4-7) Last Admin: 11/15/16 08:55 Dose: 50 mg - Labs Labs: 11/15/16 07:03 11/15/16 09:18 PT 32.2 Seconds (9.9-11.8) H* 11/15/16 07:03 INR 2.98 (0.93-1.08) H 11/15/16 07:03 - Constitutional Appears: Toxic, No Acute Distress, Chronically Ill - Head Exam Head Exam: ATRAUMATIC, NORMOCEPHALIC - Eye Exam Eye Exam: EOMI, PERRL Pupil Exam: NORMAL ACCOMODATION, PERRL - ENT Exam ENT Exam: Mucous Membranes Moist, Normal External Ear Exam, TM's Normal Bilaterally - Neck Exam Neck Exam: Full ROM, Normal Inspection - Respiratory Exam Respiratory Exam: Clear to Ausculation Bilateral, NORMAL BREATHING PATTERN. absent: Rales, Rhonchi, Wheezes - Cardiovascular Exam Cardiovascular Exam: REGULAR RHYTHM, RRR, +S1, +S2 - GI/Abdominal Exam GI & Abdominal Exam: Soft, Normal Bowel Sounds. absent: Distended, Tenderness - Extremities Exam Extremities Exam: Joint Swelling, Pedal Edema - Neurological Exam Neurological Exam: Alert, Awake, CN II-XII Intact, Oriented x3 - Psychiatric Exam Psychiatric exam: Depressed, Flat Affect - Skin Skin Exam: Intact, Normal Color Assessment and Plan - Assessment and Plan (Free Text) Assessment: 36 yo AA female with known Sickle Cell disease presenting with diarrhea and abdominal pain. Low blood pressure/borderline hypotension. Supportive care. Velarde cultures. No leukocytosis noted however. Coagulase negative staph according to FISH studies. Sudden increase in LFTs and creatinine. Continue with renal dosing of Cefepime for now. Vancomycin should be adjusted for renal function. LFT are still increasing. Acute Kidney Injury. Transferred to MICU for further care. General edema of the patient. Still with generalized pains. Thank you for allowing me to participate in the care of the patient, we will follow with you.
--- NOTE | 2016-11-15 13:25 | CP.PCM.CON ---
History of Present Illness - History of Present Illness History of Present Illness: 36 year old female with a history of sickle cell anemia and bipolar disorder, secondary iron overload, cardiomyopathy with reduced EF, admitted with sickle cell pain crisis and swelling. She was recently discharged for sickle cell pain crisis and was found to have an EF of 35%. She notes to shortness of breath and swelling of her legs. She feels this exacerbated her sickle pain and now has diffuse body pain. She denies fevers and chills. Review of her blood work shows worsening LFTs and renal function. Past medical history: Sickle cell disease, bipolar disorder, cardiomyopathy. Past surgical history: portacath removal, cholecystectomy Family history: Both parents have sickle trait. Social history: Denies tobacco, alcohol, and illicit drug use. Allergies: Acetaminophen, aspirin, oxycodone. Review of systems: All remaining ROS including HEENT, cardiovascular, respiratory, gastrointestinal, genitourinary, musculoskeletal, dermatologic, neurologic, and psychiatric are negative unless mentioned in the HPI. Past Patient History - Infectious Disease Hx of Infectious Diseases: None - Tetanus Immunizations Tetanus Immunization: Up to Date - Past Medical History & Family History Past Medical History?: Yes - Past Social History Smoking Status: Former Smoker - CARDIAC Hx Cardiac Disorders: Yes Hx Hypertension: Yes - PULMONARY Hx Asthma: Yes - NEUROLOGICAL Hx Neurological Disorder: No Other/Comment: CP - HEENT Hx HEENT Problems: No - RENAL Hx Chronic Kidney Disease: No - ENDOCRINE/METABOLIC Hx Endocrine Disorders: Yes - HEMATOLOGICAL/ONCOLOGICAL Hx Blood Disorders: Yes Hx Anemia: Yes - INTEGUMENTARY Hx Dermatological Problems: Yes Hx Eczema: Yes - MUSCULOSKELETAL/RHEUMATOLOGICAL Hx Falls: No - GASTROINTESTINAL Hx Gastrointestinal Disorders: Yes Hx Gastroesophageal Reflux: Yes Hx Pancreatitis: Yes - GENITOURINARY/GYNECOLOGICAL Hx Genitourinary Disorders: Yes Hx Urinary Tract Infection: Yes - PSYCHIATRIC Hx Psychophysiologic Disorder: Yes Hx Anxiety: Yes Hx Bipolar Disorder: Yes Hx Substance Use: No - SURGICAL HISTORY Hx Cholecystectomy: Yes Hx Splenectomy: Yes - ANESTHESIA Hx Anesthesia: Yes Hx Anesthesia Reactions: No Hx Malignant Hyperthermia: No Meds Allergies/Adverse Reactions: Allergies Allergy/AdvReac Type Severity Reaction Status Date / Time acetaminophen Allergy RASH Verified 09/24/16 12:42 aspirin Allergy RASH Verified 09/24/16 12:42 coconut oil Allergy RASH Verified 09/24/16 12:42 morphine Allergy SWELLING Verified 09/24/16 12:42 mushroom Allergy URTICARIA Verified 09/24/16 12:42 oxycodone Allergy RASH Verified 09/24/16 12:42 - Medications Medications: Current Medications Albuterol Sulfate (Albuterol 0.083% Inhal Rika (2.5 Mg/3 Ml) Ud) 2.5 mg IH [id number] PRN PRN Reason: Shortness of Breath Ergocalciferol (Drisdol 50,000 Intl Units Cap) 1 cap PO QWK [facility] Last Admin: 11/12/16 09:20 Dose: 1 cap Folic Acid (Folic Acid) 1 mg PO DAILY [facility] Last Admin: 11/15/16 10:02 Dose: 1 mg Heparin Sodium (Porcine) (Heparin) 5,000 units SC Q12 ARLETTE PRN Reason: Protocol Last Admin: 11/15/16 10:02 Dose: 5,000 units Hydromorphone HCl (Dilaudid) 1 mg IVP Q3H PRN PRN Reason: Pain, severe (8-10) Last Admin: 11/15/16 11:34 Dose: 1 mg Hydroxyurea (Hydrea) 500 mg PO DAILY [facility] Last Admin: 11/15/16 10:05 Dose: 500 mg Deferoxamine Mesylate 1,000 mg (/ Sodium Chloride) 500 mls @ 41.667 mls/hr IV 2100 ARLETTE Stop: 11/19/16 08:59 Last Admin: 11/14/16 21:21 Dose: 41.667 mls/hr Vancomycin HCl (Vancomycin 1gm) 1 gm in 250 mls @ 167 mls/hr IVPB DAILY [facility] PRN Reason: Protocol Sodium Chloride (Sodium Chloride 0.45%) 1,000 mls @ 125 mls/hr IV .Q8H ARLETTE Cefepime HCl (Maxipime 1gm) 1 gm in 100 mls @ 100 mls/hr IVPB Q24H ARLETTE PRN Reason: Protocol Lactic Acid (Lac-Hydrin 12% Cream (140 G)) 0 ea TOP DAILY PRN PRN Reason: Wound Multivitamins/Minerals (Therapeutic-M Tab) 1 tab PO DAILY [facility] Last Admin: 11/15/16 10:02 Dose: 1 tab Non-Formulary Medication (Mometasone [Asmanex Twisthaler 110 Mcg]) 100 mcg IH BID [facility] Last Admin: 11/14/16 17:51 Dose: Not Given Pantoprazole Sodium (Protonix Ec Tab) 40 mg PO 0600 ARLETTE Last Admin: 11/15/16 06:35 Dose: 40 mg Tramadol HCl (Ultram) 50 mg PO Q6 PRN PRN Reason: Pain, moderate (4-7) Last Admin: 11/15/16 08:55 Dose: 50 mg Physical Exam - Head Exam Head Exam: ATRAUMATIC - Eye Exam Eye Exam: Normal appearance - ENT Exam ENT Exam: Mucous Membranes Dry - Respiratory Exam Respiratory Exam: Decreased Breath Sounds - Cardiovascular Exam Cardiovascular Exam: +S1, +S2 - GI/Abdominal Exam GI & Abdominal Exam: Normal Bowel Sounds - Extremities Exam Extremities exam: Positive for: pedal edema - Neurological Exam Neurological exam: Oriented x3 - Psychiatric Exam Psychiatric exam: Depressed, Flat Affect - Skin Skin Exam: Warm Results - Vital Signs Recent Vital Signs: Last Vital Signs Temp 97.5 F L 11/15/16 07:26 Pulse 88 11/15/16 07:26 Resp 18 11/15/16 07:26 BP 108/75 11/15/16 10:04 Pulse Ox 97 11/15/16 07:26 - Labs Result Diagrams: 11/15/16 07:03 11/15/16 09:18 Labs: Laboratory Results - last 24 hr 11/14/16 11/14/16 11/14/16 14:24 14:24 14:24 WBC RBC Hgb Hct MCV MCH MCHC RDW Plt Count MPV Corrected WBC (Man) Neutrophils % (Manual) Band Neutrophils % Lymphocytes % (Manual) Atypical Lymphs % Monocytes % (Manual) Eosinophils % (Manual) Promyelocytes % Nucleated RBC % Platelet Evaluation Large Platelets Polychromasia Hypochromasia Poikilocytosis (manual Anisocytosis (manual) Macrocytosis (manual) Sickle Cells Target Cells Tear Drop Cells Ovalocytes Retic Count PT 32.4 H* INR 3.00 H Sodium Potassium Chloride Carbon Dioxide Anion Gap BUN Creatinine Est GFR ( Amer) Est GFR (Non-Af Amer) POC Glucose (mg/dL) Random Glucose Lactic Acid Calcium Phosphorus Magnesium Iron TIBC % Saturation Ferritin > 80476.0 Total Bilirubin 19.1 H* Direct Bilirubin 16.1 H AST 1384 H ALT 182 H Alkaline Phosphatase 177 H Lactate Dehydrogenase Total Creatine Kinase Troponin I NT-Pro-B Natriuret Pep Total Protein 7.6 Albumin 2.9 L Globulin 4.7 Albumin/Globulin Ratio 0.6 L Ceruloplasmin Beta HCG, Quant Urine Color Urine Appearance Urine pH Ur Specific Batt[place] Urine Protein Urine Glucose (UA) Urine Ketones Urine Blood Urine Nitrate Urine Bilirubin Urine Urobilinogen Ur Leukocyte Esterase Urine RBC Urine WBC Ur Epithelial Cells Amorphous Sediment Urine Bacteria Urine Osmolality Ur Random Creatinine U Random Total Protein Ur Random Sodium Ur Random Potassium Salicylates < 1 L Urine Opiates Screen Urine Methadone Screen Acetaminophen < 10.0 L Ur Barbiturates Screen Ur Phencyclidine Scrn Ur Amphetamines Screen U Benzodiazepines Scrn U Oth Cocaine Metabols U Cannabinoids Screen 11/14/16 11/14/16 11/14/16 14:24 14:24 16:25 WBC RBC Hgb Hct MCV MCH MCHC RDW Plt Count MPV Corrected WBC (Man) Neutrophils % (Manual) Band Neutrophils % Lymphocytes % (Manual) Atypical Lymphs % Monocytes % (Manual) Eosinophils % (Manual) Promyelocytes % Nucleated RBC % Platelet Evaluation Large Platelets Polychromasia Hypochromasia Poikilocytosis (manual Anisocytosis (manual) Macrocytosis (manual) Sickle Cells Target Cells Tear Drop Cells Ovalocytes Retic Count PT INR Sodium Potassium Chloride Carbon Dioxide Anion Gap BUN Creatinine Est GFR ( Amer) Est GFR (Non-Af Amer) POC Glucose (mg/dL) 169 H Random Glucose Lactic Acid Calcium Phosphorus Magnesium Iron 410 H TIBC 160 L % Saturation 257 H Ferritin Total Bilirubin Direct Bilirubin AST ALT Alkaline Phosphatase Lactate Dehydrogenase Total Creatine Kinase Troponin I NT-Pro-B Natriuret Pep Total Protein Albumin Globulin Albumin/Globulin Ratio Ceruloplasmin Beta HCG, Quant < 2.39 Urine Color Urine Appearance Urine pH Ur Specific [place] Urine Protein Urine Glucose (UA) Urine Ketones Urine Blood Urine Nitrate Urine Bilirubin Urine Urobilinogen Ur Leukocyte Esterase Urine RBC Urine WBC Ur Epithelial Cells Amorphous Sediment Urine Bacteria Urine Osmolality Ur Random Creatinine U Random Total Protein Ur Random Sodium Ur Random Potassium Salicylates Urine Opiates Screen Urine Methadone Screen Acetaminophen Ur Barbiturates Screen Ur Phencyclidine Scrn Ur Amphetamines Screen U Benzodiazepines Scrn U Oth Cocaine Metabols U Cannabinoids Screen 11/14/16 11/14/16 11/14/16 16:47 16:47 16:47 WBC RBC Hgb Hct MCV MCH MCHC RDW Plt Count MPV Corrected WBC (Man) Neutrophils % (Manual) Band Neutrophils % Lymphocytes % (Manual) Atypical Lymphs % Monocytes % (Manual) Eosinophils % (Manual) Promyelocytes % Nucleated RBC % Platelet Evaluation Large Platelets Polychromasia Hypochromasia Poikilocytosis (manual Anisocytosis (manual) Macrocytosis (manual) Sickle Cells Target Cells Tear Drop Cells Ovalocytes Retic Count PT INR Sodium 138 Potassium 5.1 H Chloride 99 Carbon Dioxide 18 L Anion Gap 26 H BUN 23 H Creatinine 1.8 H Est GFR ( Amer) 38 Est GFR (Non-Af Amer) 31 POC Glucose (mg/dL) Random Glucose 151 H Lactic Acid Calcium 8.3 L Phosphorus Magnesium 1.5 L Iron TIBC % Saturation Ferritin Total Bilirubin Direct Bilirubin AST ALT Alkaline Phosphatase Lactate Dehydrogenase Total Creatine Kinase Troponin I NT-Pro-B Natriuret Pep Total Protein Albumin Globulin Albumin/Globulin Ratio Ceruloplasmin 44 Beta HCG, Quant Urine Color Urine Appearance Urine pH Ur Specific [place] Urine Protein Urine Glucose (UA) Urine Ketones Urine Blood Urine Nitrate Urine Bilirubin Urine Urobilinogen Ur Leukocyte Esterase Urine RBC Urine WBC Ur Epithelial Cells Amorphous Sediment Urine Bacteria Urine Osmolality Ur Random Creatinine U Random Total Protein Ur Random Sodium Ur Random Potassium Salicylates Urine Opiates Screen Urine Methadone Screen Acetaminophen Ur Barbiturates Screen Ur Phencyclidine Scrn Ur Amphetamines Screen U Benzodiazepines Scrn U Oth Cocaine Metabols U Cannabinoids Screen 11/14/16 11/15/16 11/15/16 21:05 00:20 00:20 WBC RBC Hgb Hct MCV MCH MCHC RDW Plt Count MPV Corrected WBC (Man) Neutrophils % (Manual) Band Neutrophils % Lymphocytes % (Manual) Atypical Lymphs % Monocytes % (Manual) Eosinophils % (Manual) Promyelocytes % Nucleated RBC % Platelet Evaluation Large Platelets Polychromasia Hypochromasia Poikilocytosis (manual Anisocytosis (manual) Macrocytosis (manual) Sickle Cells Target Cells Tear Drop Cells Ovalocytes Retic Count PT INR Sodium Potassium Chloride Carbon Dioxide Anion Gap BUN Creatinine Est GFR ( Amer) Est GFR (Non-Af Amer) POC Glucose (mg/dL) 129 H Random Glucose Lactic Acid Calcium Phosphorus Magnesium Iron TIBC % Saturation Ferritin Total Bilirubin Direct Bilirubin AST ALT Alkaline Phosphatase Lactate Dehydrogenase Total Creatine Kinase Troponin I NT-Pro-B Natriuret Pep Total Protein Albumin Globulin Albumin/Globulin Ratio Ceruloplasmin Beta HCG, Quant Urine Color Brown Urine Appearance Cloudy Urine pH 6.5 Ur Specific [place] 1.020 Urine Protein 100 H Urine Glucose (UA) 100 H Urine Ketones Trace H Urine Blood Moderate H Urine Nitrate Positive H Urine Bilirubin Large H Urine Urobilinogen 4.0 H Ur Leukocyte Esterase Negative Urine RBC 1 - 3 Urine WBC 0 - 2 Ur Epithelial Cells 0 - 2 Amorphous Sediment Small Urine Bacteria Few Urine Osmolality 322 Ur Random Creatinine 114 U Random Total Protein Cancelled Ur Random Sodium 46 Ur Random Potassium 66.7 Salicylates Urine Opiates Screen Positive H Urine Methadone Screen Negative Acetaminophen Ur Barbiturates Screen Negative Ur Phencyclidine Scrn Negative Ur Amphetamines Screen Negative U Benzodiazepines Scrn Negative U Oth Cocaine Metabols Negative U Cannabinoids Screen Negative 11/15/16 11/15/16 11/15/16 01:13 05:06 07:00 WBC RBC Hgb Hct MCV MCH MCHC RDW Plt Count MPV Corrected WBC (Man) Neutrophils % (Manual) Band Neutrophils % Lymphocytes % (Manual) Atypical Lymphs % Monocytes % (Manual) Eosinophils % (Manual) Promyelocytes % Nucleated RBC % Platelet Evaluation Large Platelets Polychromasia Hypochromasia Poikilocytosis (manual Anisocytosis (manual) Macrocytosis (manual) Sickle Cells Target Cells Tear Drop Cells Ovalocytes Retic Count PT INR Sodium Potassium Chloride Carbon Dioxide Anion Gap BUN Creatinine Est GFR ( Amer) Est GFR (Non-Af Amer) POC Glucose (mg/dL) 115 H 121 H Random Glucose Lactic Acid Calcium Phosphorus Magnesium Iron TIBC % Saturation Ferritin Total Bilirubin Direct Bilirubin AST ALT Alkaline Phosphatase Lactate Dehydrogenase Total Creatine Kinase Troponin I NT-Pro-B Natriuret Pep 46150 H Total Protein Albumin Globulin Albumin/Globulin Ratio Ceruloplasmin Beta HCG, Quant Urine Color Urine Appearance Urine pH Ur Specific [place] Urine Protein Urine Glucose (UA) Urine Ketones Urine Blood Urine Nitrate Urine Bilirubin Urine Urobilinogen Ur Leukocyte Esterase Urine RBC Urine WBC Ur Epithelial Cells Amorphous Sediment Urine Bacteria Urine Osmolality Ur Random Creatinine U Random Total Protein Ur Random Sodium Ur Random Potassium Salicylates Urine Opiates Screen Urine Methadone Screen Acetaminophen Ur Barbiturates Screen Ur Phencyclidine Scrn Ur Amphetamines Screen U Benzodiazepines Scrn U Oth Cocaine Metabols U Cannabinoids Screen 11/15/16 11/15/16 11/15/16 07:03 07:03 07:03 WBC 21.5 H D RBC 2.17 L Hgb 7.8 L Hct 22.4 L MCV 103.2 MCH 35.9 H MCHC 34.8 RDW 26.1 H Plt Count 143 MPV 11.2 H Corrected WBC (Man) 13.4 H Neutrophils % (Manual) 74 H Band Neutrophils % 3 H Lymphocytes % (Manual) 14 L Atypical Lymphs % 1 H Monocytes % (Manual) 6 Eosinophils % (Manual) 1 Promyelocytes % 1 Nucleated RBC % 60 Platelet Evaluation Normal Large Platelets Present Polychromasia Slight Hypochromasia 2+ Poikilocytosis (manual 2+ Anisocytosis (manual) 3+ Macrocytosis (manual) 1+ Sickle Cells 1+ Target Cells Slight Tear Drop Cells Slight Ovalocytes 1+ Retic Count 19.71 H* PT 32.2 H* INR 2.98 H Sodium 136 Potassium 5.2 H Chloride 99 Carbon Dioxide 23 Anion Gap 19 BUN 28 H Creatinine 2.1 H Est GFR ( Amer) 32 Est GFR (Non-Af Amer) 26 POC Glucose (mg/dL) Random Glucose 99 Lactic Acid Calcium 7.9 L Phosphorus 5.9 H Magnesium 1.6 L Iron TIBC % Saturation Ferritin Total Bilirubin 21.1 H* Direct Bilirubin AST 1852 H ALT 286 H Alkaline Phosphatase 181 H Lactate Dehydrogenase Total Creatine Kinase Troponin I NT-Pro-B Natriuret Pep Total Protein 7.2 Albumin 2.7 L Globulin 4.5 Albumin/Globulin Ratio 0.6 L Ceruloplasmin Beta HCG, Quant Urine Color Urine Appearance Urine pH Ur Specific [place] Urine Protein Urine Glucose (UA) Urine Ketones Urine Blood Urine Nitrate Urine Bilirubin Urine Urobilinogen Ur Leukocyte Esterase Urine RBC Urine WBC Ur Epithelial Cells Amorphous Sediment Urine Bacteria Urine Osmolality Ur Random Creatinine U Random Total Protein Ur Random Sodium Ur Random Potassium Salicylates Urine Opiates Screen Urine Methadone Screen Acetaminophen Ur Barbiturates Screen Ur Phencyclidine Scrn Ur Amphetamines Screen U Benzodiazepines Scrn U Oth Cocaine Metabols U Cannabinoids Screen 11/15/16 11/15/16 11/15/16 07:15 09:18 09:45 WBC RBC Hgb Hct MCV MCH MCHC RDW Plt Count MPV Corrected WBC (Man) Neutrophils % (Manual) Band Neutrophils % Lymphocytes % (Manual) Atypical Lymphs % Monocytes % (Manual) Eosinophils % (Manual) Promyelocytes % Nucleated RBC % Platelet Evaluation Large Platelets Polychromasia Hypochromasia Poikilocytosis (manual Anisocytosis (manual) Macrocytosis (manual) Sickle Cells Target Cells Tear Drop Cells Ovalocytes Retic Count PT INR Sodium 138 Potassium 5.1 H Chloride 99 Carbon Dioxide 24 Anion Gap 20 BUN 29 H Creatinine 2.1 H Est GFR ( Amer) 32 Est GFR (Non-Af Amer) 26 POC Glucose (mg/dL) 114 H Random Glucose 89 Lactic Acid Calcium 8.0 L Phosphorus Magnesium Iron TIBC % Saturation Ferritin Total Bilirubin 21.6 H* Direct Bilirubin AST 2077 H ALT 307 H Alkaline Phosphatase 179 H Lactate Dehydrogenase 3656 H Total Creatine Kinase 30 L Troponin I 0.10 D NT-Pro-B Natriuret Pep Total Protein 7.5 Albumin 2.8 L Globulin 4.7 Albumin/Globulin Ratio 0.6 L Ceruloplasmin Beta HCG, Quant Urine Color Urine Appearance Urine pH Ur Specific [place] Urine Protein Urine Glucose (UA) Urine Ketones Urine Blood Urine Nitrate Urine Bilirubin Urine Urobilinogen Ur Leukocyte Esterase Urine RBC Urine WBC Ur Epithelial Cells Amorphous Sediment Urine Bacteria Urine Osmolality Ur Random Creatinine U Random Total Protein Ur Random Sodium Ur Random Potassium Salicylates Urine Opiates Screen Urine Methadone Screen Acetaminophen Ur Barbiturates Screen Ur Phencyclidine Scrn Ur Amphetamines Screen U Benzodiazepines Scrn U Oth Cocaine Metabols U Cannabinoids Screen 11/15/16 09:46 WBC RBC Hgb Hct MCV MCH MCHC RDW Plt Count MPV Corrected WBC (Man) Neutrophils % (Manual) Band Neutrophils % Lymphocytes % (Manual) Atypical Lymphs % Monocytes % (Manual) Eosinophils % (Manual) Promyelocytes % Nucleated RBC % Platelet Evaluation Large Platelets Polychromasia Hypochromasia Poikilocytosis (manual Anisocytosis (manual) Macrocytosis (manual) Sickle Cells Target Cells Tear Drop Cells Ovalocytes Retic Count PT INR Sodium Potassium Chloride Carbon Dioxide Anion Gap BUN Creatinine Est GFR ( Amer) Est GFR (Non-Af Amer) POC Glucose (mg/dL) Random Glucose Lactic Acid 3.8 H Calcium Phosphorus Magnesium Iron TIBC % Saturation Ferritin Total Bilirubin Direct Bilirubin AST ALT Alkaline Phosphatase Lactate Dehydrogenase Total Creatine Kinase Troponin I NT-Pro-B Natriuret Pep Total Protein Albumin Globulin Albumin/Globulin Ratio Ceruloplasmin Beta HCG, Quant Urine Color Urine Appearance Urine pH Ur Specific [place] Urine Protein Urine Glucose (UA) Urine Ketones Urine Blood Urine Nitrate Urine Bilirubin Urine Urobilinogen Ur Leukocyte Esterase Urine RBC Urine WBC Ur Epithelial Cells Amorphous Sediment Urine Bacteria Urine Osmolality Ur Random Creatinine U Random Total Protein Ur Random Sodium Ur Random Potassium Salicylates Urine Opiates Screen Urine Methadone Screen Acetaminophen Ur Barbiturates Screen Ur Phencyclidine Scrn Ur Amphetamines Screen U Benzodiazepines Scrn U Oth Cocaine Metabols U Cannabinoids Screen Assessment & Plan (1) Sickle cell pain crisis Assessment and Plan: folic acid, pain meds, 02 via NC no current red cell exchange transfusion indication Status: Chronic (2) Iron overload due to repeated red blood cell transfusions Assessment and Plan: on outpatient chelation will start chelation inhouse concern for cardiomyopathy/liver disease from iron overload Status: Chronic (3) Leukocytosis Assessment and Plan: on antibiotics Status: Acute (4) Sickle cell anemia Assessment and Plan: folic acid and hydrea Thank you for this interesting consult. Status: Acute
--- NOTE | 2016-11-15 14:27 | CP.PCM.PN ---
"<JhEsteban roberts - Last Filed: 11/15/16 14:28> Subjective - Date & Time of Evaluation Date of Evaluation: 11/15/16 Time of Evaluation: 09:00 - Subjective Subjective: Patient has been seen and examined. She reports generalized pain, prominent in her abdomen. She denies SOB but does complain of chest pain that is reproducible with palpation. She denies any headache, dizziness, vision changes , dysuria, nausea, vomitting, or palpitations. Objective - Vital Signs/Intake and Output Vital Signs (last 24 hours): Temp Pulse Resp BP Pulse Ox 97.5 F L 88 18 108/75 97 11/15/16 07:26 11/15/16 07:26 11/15/16 07:26 11/15/16 10:04 11/15/16 07:26 Intake and Output: 11/15/16 11/15/16 06:59 18:59 Intake Total 60 120 Balance 60 120 - Medications Medications: Current Medications Albuterol Sulfate (Albuterol 0.083% Inhal Rika (2.5 Mg/3 Ml) Ud) 2.5 mg IH [id number] PRN PRN Reason: Shortness of Breath Ergocalciferol (Drisdol 50,000 Intl Units Cap) 1 cap PO QWK [facility] Last Admin: 11/12/16 09:20 Dose: 1 cap Folic Acid (Folic Acid) 1 mg PO DAILY [facility] Last Admin: 11/15/16 10:02 Dose: 1 mg Heparin Sodium (Porcine) (Heparin) 5,000 units SC Q12 ARLETTE PRN Reason: Protocol Last Admin: 11/15/16 10:02 Dose: 5,000 units Hydromorphone HCl (Dilaudid) 1 mg IVP Q3H PRN PRN Reason: Pain, severe (8-10) Last Admin: 11/15/16 11:34 Dose: 1 mg Hydroxyurea (Hydrea) 500 mg PO DAILY [facility] Last Admin: 11/15/16 10:05 Dose: 500 mg Deferoxamine Mesylate 1,000 mg (/ Sodium Chloride) 500 mls @ 41.667 mls/hr IV 2100 ARLETTE Stop: 11/19/16 08:59 Last Admin: 11/14/16 21:21 Dose: 41.667 mls/hr Vancomycin HCl (Vancomycin 1gm) 1 gm in 250 mls @ 167 mls/hr IVPB DAILY [facility]LETT[facility] PRN Reason: Protocol Sodium Chloride (Sodium Chloride 0.45%) 1,000 mls @ 125 mls/hr IV .Q8H ARLETTE Cefepime HCl (Maxipime 1gm) 1 gm in 100 mls @ 100 mls/hr IVPB Q24H ARLETTE PRN Reason: Protocol Lactic Acid (Lac-Hydrin 12% Cream (140 G)) 0 ea TOP DAILY PRN PRN Reason: Wound Multivitamins/Minerals (Therapeutic-M Tab) 1 tab PO DAILY [facility] Last Admin: 11/15/16 10:02 Dose: 1 tab Non-Formulary Medication (Mometasone [Asmanex Twisthaler 110 Mcg]) 100 mcg IH BID [facility]LETTE Last Admin: 11/14/16 17:51 Dose: Not Given Pantoprazole Sodium (Protonix Ec Tab) 40 mg PO 0600 ARLETTE Last Admin: 11/15/16 06:35 Dose: 40 mg Tramadol HCl (Ultram) 50 mg PO Q6 PRN PRN Reason: Pain, moderate (4-7) Last Admin: 11/15/16 08:55 Dose: 50 mg - Labs Labs: 11/15/16 07:03 11/15/16 09:18 PT 32.2 Seconds (9.9-11.8) H* 11/15/16 07:03 INR 2.98 (0.93-1.08) H 11/15/16 07:03 - Constitutional Appears: Non-toxic, In Acute Distress - Head Exam Head Exam: ATRAUMATIC, NORMAL INSPECTION, NORMOCEPHALIC - Eye Exam Eye Exam: Normal appearance. absent: Scleral icterus - ENT Exam ENT Exam: Mucous Membranes Moist - Respiratory Exam Respiratory Exam: Clear to Ausculation Bilateral - Cardiovascular Exam Cardiovascular Exam: RRR, +S1, +S2, Murmur - Extremities Exam Extremities Exam: Pedal Edema (+1) - Neurological Exam Neurological Exam: Alert, Awake, Oriented x3 - Psychiatric Exam Psychiatric exam: Anxious, Depressed - Skin Skin Exam: Dry, Intact, Normal Color, Warm Assessment and Plan - Assessment and Plan (Free Text) Assessment: 36 year old AA female with past medical history of sickle cell disease, Bipolar disorder, cerebral palsy, Asthma, and CHF presents to the emergency department complaining of abdominal pain located in the RUQ. She states the pain started today, and describes it as a constant pain. She also states she has been vomiting up bile and has been nauseous. She is being worked up for abdominal pain secondary to her sickle cell disease. Plan: Generalized pain likely 2/2 to sickle cell crisis - Hgb 7.8 Transfuse if < 7 - Reticulocyte decreased to 19.71 - Hydroxyurea - Dilauded 0.5 Q6 || Ultram 50 Q6 - Folic acid and MVI - Heme consulted Recs appreciated - Abdominal US and Duplex US ordered, Autoimmune workup, check Factors 2, 5, 8 per GI pending -Deferoxamine started by Heme -CBC with Diff -LDH 3656 Shock Liver -AST-2077, ALT-307, Alk Phos 178 -likely 2/2 to CHF vs sickle cell crisis -Abdominal US showed patent portal vein with hepatopetal flow (study was limited ) -GI consulted. Discussion of liver transplant due to significantly elevated MELD score. They will discuss with [facility] -Ceruloplasmin/Lipase WNL. -Alpha Fetoprotein WNL MELITON (prerenal vs vasoocclusive crisis or mixed) -Nephro consulted -Transferred to ICU UA showed Brown cloudy urine, 100 Protein, 100 Glucose, Trace Ketones, Positive nitrates, large bilirubin, 4.0 urobilinogen, negative Leuk Es. Urine Osmolality, random creatinine, random sodium an potassium WNL. CHF (Acute on Chronic) -BNP increased to 2076 -Patient hypotensive for >24 hours -CXR yesterday showed pulmonary congestion -transferred to ICU -Consider repeat Echo. -Cardiology consulted - EF of 39.7 from June 2016 -Lung sounds are clear -Strict Is and Os -Daily weights Bacteremia -Gram positive Cocci found in blood cultures -Vancomycin and Zosyn started -F/U with ID -Urine cultures pending. -Procal normal Hypomagnesia -Magnesium 1.5 continue to monitor History of Bipolar Disorder -continue home medications -Psych Consulted (Dr. Odonnell) GI/DVT prophylaxis -pantoprazole started -SCD Patient seen, examined, and discussed with Attending Dispo: Transferred to ICU today. Will follow up with consult recs. Esteban Aly PGY-1 <Elzbieta ANGUIANO,Jena - Last Filed: 11/15/16 15:08> Objective - Vital Signs/Intake and Output Vital Signs (last 24 hours): Temp Pulse Resp BP Pulse Ox 97.5 F L 88 18 108/75 97 11/15/16 07:26 11/15/16 07:26 11/15/16 07:26 11/15/16 10:04 11/15/16 07:26 Intake and Output: 11/15/16 11/15/16 06:59 18:59 Intake Total 60 120 Balance 60 120 - Medications Medications: Current Medications Albuterol Sulfate (Albuterol 0.083% Inhal Rika (2.5 Mg/3 Ml) Ud) 2.5 mg IH [id number] PRN PRN Reason: Shortness of Breath Ergocalciferol (Drisdol 50,000 Intl Units Cap) 1 cap PO QWK [facility] Last Admin: 11/12/16 09:20 Dose: 1 cap Folic Acid (Folic Acid) 1 mg PO DAILY [facility] Last Admin: 11/15/16 10:02 Dose: 1 mg Heparin Sodium (Porcine) (Heparin) 5,000 units SC Q12 ARLETTE PRN Reason: Protocol Last Admin: 11/15/16 10:02 Dose: 5,000 units Hydromorphone HCl (Dilaudid) 1 mg IVP Q3H PRN PRN Reason: Pain, severe (8-10) Last Admin: 11/15/16 11:34 Dose: 1 mg Hydroxyurea (Hydrea) 500 mg PO DAILY [facility] Last Admin: 11/15/16 10:05 Dose: 500 mg Deferoxamine Mesylate 1,000 mg (/ Sodium Chloride) 500 mls @ 41.667 mls/hr IV 2100 ARLETTE Stop: 11/19/16 08:59 Last Admin: 11/14/16 21:21 Dose: 41.667 mls/hr Vancomycin HCl (Vancomycin 1gm) 1 gm in 250 mls @ 167 mls/hr IVPB DAILY [facility]LETTE PRN Reason: Protocol Sodium Chloride (Sodium Chloride 0.45%) 1,000 mls @ 125 mls/hr IV .Q8H ARLETTE Cefepime HCl (Maxipime 1gm) 1 gm in 100 mls @ 100 mls/hr IVPB Q24H ARLETTE PRN Reason: Protocol Lactic Acid (Lac-Hydrin 12% Cream (140 G)) 0 ea TOP DAILY PRN PRN Reason: Wound Multivitamins/Minerals (Therapeutic-M Tab) 1 tab PO DAILY [facility] Last Admin: 11/15/16 10:02 Dose: 1 tab Non-Formulary Medication (Mometasone [Asmanex Twisthaler 110 Mcg]) 100 mcg IH BID [facility] Last Admin: 11/14/16 17:51 Dose: Not Given Pantoprazole Sodium (Protonix Ec Tab) 40 mg PO 0600 [facility] Last Admin: 11/15/16 06:35 Dose: 40 mg Tramadol HCl (Ultram) 50 mg PO Q6 PRN PRN Reason: Pain, moderate (4-7) Last Admin: 11/15/16 08:55 Dose: 50 mg - Labs Labs: 11/15/16 07:03 11/15/16 09:18 PT 32.2 Seconds (9.9-11.8) H* 11/15/16 07:03 INR 2.98 (0.93-1.08) H 11/15/16 07:03 Attending/Attestation - Attestation I have personally seen and examined this patient.: Yes I have fully participated in the care of the patient.: Yes I have reviewed all pertinent clinical information, including history, physical exam and plan: Yes Notes (Text): 11/15/16 15:02 Patient was seen and examined with medical technologist microbiology. 35 year old female with past medical history of sickle cell disease, hypertension, asthma, cardiomyopathy, EF 39% ,cerebral palsy, and bipolar/ depression , multiple admission for recurrent UTI and sickle cell crisis, has chronically elevated transaminase is admitted with sickle cell crisis, also has underlying sepsis , Patient is hypotensive with worsening liver function , AST > 2000,Billurubin >20 ,INR 2.8 suggestive of acute hepatic failure. Patient renal failures are also getting worse.Urine out is poor, creatinin has increased to 2.1 WBC is also elevated. Patient chest X rays showed congestion. Patient case was discussed with ICU attending and patient is for transfer to ICU. Case was also discussed with GI attending, GI team has discuss case with liver transplant team at [facility], plan for possible transfer to [facility] ICU . Patient case was also discussed with Nephrology and cardiology attending. Prognosis is guarded. Management plan was discussed in detail with patient Education was provided."
[2016-11-15] MEDS: Cefepime 1gm in NS 100ml 1 GM/100 ML BAG IVPB SCH (16:04)
[2016-11-15] MEDS: Sodium Chloride 0.45% 1,000 ML IV SCH ×3 (16:07→21:46)
[2016-11-15] MEDS: MOMETASONE IH SCH ×2 (18:27→21:20)
[2016-11-15] MEDS: Vancomycin 1gm in NS 250ml 1 GM/250 ML BAG IVPB SCH (18:28)
--- NOTE | 2016-11-15 19:10 | CP.CCUPN ---
<Polly Villanueva - Last Filed: 11/15/16 19:25> CCU Subjective - Physician Review Events Since Last Encounter (Free Text): 11/15/16 19:06 Worsening labs Subjective (Free Text): 11/15/16 19:06 Critical care progress note for Dr. Pat Villanueva, PGY-1 Pt S & E at bedside. Pt reports occasional intense chest pain, SOB. Denies N/V/F/C, other complaints. Critical Care Time Spent (in minutes): 35 CCU Objective - Vital Signs / Intake & Output Intake and Output (Last 8hrs): Intake & Output 11/15/16 11/15/16 11/15/16 06:59 14:59 22:59 Intake Total 120 Balance 120 Intake: Oral 120 - Physical Exam Head: Positive for: Atraumatic, Normocephalic Pupils: Positive for: PERRL Extroacular Muscles: Positive for: EOMI Conjunctiva: Positive for: Normal Mouth: Positive for: Moist Mucous Membranes Nose (External): Positive for: Atraumatic Neck: Positive for: Normal Range of Motion Respiratory/Chest: Positive for: Clear to Auscultation, Good Air Exchange, Other (R port in place- clean and dry ). Negative for: Respiratory Distress, Accessory Muscle Use Cardiovascular: Positive for: Regular Rate and Rhythm, Normal S1, S2. Negative for: Murmurs Abdomen: Positive for: Tenderness (mild RUQ ), Normal Bowel Sounds. Negative for: Distention, Peritoneal Signs, Rebound, Guarding, Hernias Back: Positive for: Normal Inspection Upper Extremity: Positive for: Normal Inspection. Negative for: Cyanosis, Edema Lower Extremity: Positive for: Normal Inspection, Edema Neurological: Positive for: GCS=15, CN II-XII Intact, Speech Normal. Negative for: Motor Func Grossly Intact (decreased) Skin: Positive for: Warm, Dry, Normal Color. Negative for: Rashes Psychiatric: Positive for: Alert, Oriented x 3, Normal Insight, Normal Concentration - Medications Active Medications: Active Medications Generic Name Dose Route Start Last Admin Trade Name Freq PRN Reason Stop Dose Admin Albuterol Sulfate 2.5 mg 11/12/16 01:55 Albuterol 0.083% Inhal Rika (2.5 Mg/3 Ml) Ud IH [id number] PRN Shortness of Breath Ergocalciferol 1 cap 11/12/16 10:00 11/12/16 09:20 Drisdol 50,000 Intl Units Cap PO 1 cap QWK ARLETTE Administration Folic Acid 1 mg 11/12/16 10:00 11/15/16 10:02 Folic Acid PO 1 mg DAILY ARLETTE Administration Furosemide 40 mg 11/16/16 10:00 Lasix IVP DAILY ARLETTE Heparin Sodium (Porcine) 5,000 units 11/13/16 01:15 11/15/16 10:02 Heparin SC 5,000 units Q12 ARLETTE Administration Protocol Hydromorphone HCl 1 mg 11/15/16 11:24 11/15/16 15:57 Dilaudid IVP 1 mg Q3H PRN Administration Pain, severe (8-10) Hydroxyurea 500 mg 11/12/16 10:00 11/15/16 10:05 Hydrea PO 500 mg DAILY ARLETTE Administration Deferoxamine Mesylate 1,000 mg 500 mls @ 41.667 mls/hr 11/14/16 21:00 21:21 / Sodium Chloride IV 11/19/16 08:59 41.667 mls/hr 2100 ARLETTE Administration Vancomycin HCl 1 gm in 250 mls @ 167 mls/hr 11/15/16 11:30 11/15/16 18:28 Vancomycin 1gm IVPB 167 mls/hr DAILY ARLETTE Administration Protocol Sodium Chloride 1,000 mls @ 125 mls/hr 11/15/16 13:00 11/15/16 16:07 Sodium Chloride 0.45% IV 125 mls/hr .Q8H ARLETTE Administration Cefepime HCl 1 gm in 100 mls @ 100 mls/hr 11/15/16 13:15 11/15/16 16:04 Maxipime 1gm IVPB 100 mls/hr Q24H ARLETTE Administration Protocol Lactic Acid 0 ea 11/13/16 09:22 Lac-Hydrin 12% Cream (140 G) TOP DAILY PRN Wound Multivitamins/Minerals 1 tab 11/12/16 11:30 11/15/16 10:02 Therapeutic-M Tab PO 1 tab DAILY ARLETTE Administration Non-Formulary Medication 100 mcg 11/13/16 10:00 11/15/16 18:27 Mometasone [Asmanex Twisthaler 110 Mcg] IH Not Given BID [facility] Pantoprazole Sodium 40 mg 11/12/16 06:00 11/15/16 06:35 Protonix Ec Tab PO 40 mg 0600 ARLETTE Administration Tramadol HCl 50 mg 11/12/16 01:44 11/15/16 08:55 Ultram PO 50 mg Q6 PRN Administration Pain, moderate (4-7) - Patient Studies Lab Studies: Microbiology Studies 11/14/16 18:06 Blood Culture - Preliminary Blood-Venous NO GROWTH AFTER 24 HOURS 11/14/16 16:47 Blood Culture - Preliminary Blood-Venous NO GROWTH AFTER 24 HOURS Lab Studies 11/15/16 11/15/16 11/15/16 Range/Units 15:45 09:46 09:45 WBC (4.5-11.0) 10^3/ul RBC (3.5-6.1) 10^6/uL Hgb (12.0-16.0) g/dL Hct (36.0-48.0) % MCV (80.0-105.0) fl MCH (25.0-35.0) pg MCHC (31.0-37.0) g/dl RDW (11.5-14.5) % Plt Count (120.0-450.0) 10^3/uL MPV (7.0-11.0) fl Corrected WBC (Man) (4.5-11.0) K/mm3 Neutrophils % (Manual) (50.0-70.0) % Band Neutrophils % (0-2) % Lymphocytes % (Manual) (22.0-35.0) % Atypical Lymphs % (0.0-0.0) % Monocytes % (Manual) (1.0-6.0) % Eosinophils % (Manual) (0.0-3.0) % Promyelocytes % % Nucleated RBC % % Platelet Evaluation (NORMAL) Large Platelets Polychromasia Hypochromasia Poikilocytosis (manual Anisocytosis (manual) Macrocytosis (manual) Sickle Cells Target Cells Tear Drop Cells Ovalocytes Retic Count (0.5-1.5) % PT (9.9-11.8) Seconds INR (0.93-1.08) Sodium (132-148) mmol/L Potassium (3.6-5.0) mmol/L Chloride (98-107) mmol/L Carbon Dioxide (21-33) mmol/L Anion Gap (10-20) BUN (7-21) mg/dL Creatinine (0.5-1.4) mg/dL Est GFR ( Amer) Est GFR (Non-Af Amer) POC Glucose (mg/dL) 94 (65-110) mg/dL Random Glucose (70-110) mg/dL Lactic Acid 3.8 H (0.7-2.1) mmol/L Calcium (8.4-10.5) mg/dL Phosphorus (2.5-4.5) mg/dL Magnesium (1.7-2.2) mg/dL Ferritin ng/mL Total Bilirubin (0.2-1.3) mg/dL AST (14-36) U/L ALT (7-56) U/L Alkaline Phosphatase (38-126) U/L Lactate Dehydrogenase 3656 H (333-699) U/L Total Creatine Kinase 30 L (35-230) U/L Troponin I 0.10 D ng/mL NT-Pro-B Natriuret Pep (0-450) pg/mL Total Protein (5.8-8.3) g/dL Albumin (3.0-4.8) g/dL Globulin gm/dL Albumin/Globulin Ratio (1.1-1.8) Ceruloplasmin (18-53) mg/dL Alpha Fetoprotein (0.0-7.5) ng/mL Urine Color (YELLOW) Urine Appearance (CLEAR) Urine pH (4.7-8.0) Ur Specific [place] (1.005-1.035) Urine Protein (<30 mg/dL) mg/dL Urine Glucose (UA) (NEGATIVE) mg/dL Urine Ketones (NEGATIVE) mg/dL Urine Blood (NEGATIVE) Urine Nitrate (NEGATIVE) Urine Bilirubin (NEGATIVE) Urine Urobilinogen (<1 E.U./dL) E.U./dL Ur Leukocyte Esterase (NEGATIVE) Luz/uL Urine RBC (0-2) /hpf Urine WBC (0-6) /hpf Ur Epithelial Cells (0-5) /hpf Amorphous Sediment Urine Bacteria (NEG) Urine Osmolality (50-645) mosm/kg Ur Random Creatinine mg/dL U Random Total Protein Ur Random Sodium meq/L Ur Random Potassium meq/L Urine Opiates Screen (NEGATIVE) Urine Methadone Screen (NEGATIVE) Ur Barbiturates Screen (NEGATIVE) Ur Phencyclidine Scrn (NEGATIVE) Ur Amphetamines Screen (NEGATIVE) U Benzodiazepines Scrn (NEGATIVE) U Oth Cocaine Metabols (NEGATIVE) U Cannabinoids Screen (NEGATIVE) 11/15/16 11/15/16 11/15/16 Range/Units 09:18 07:32 07:15 WBC (4.5-11.0) 10^3/ul RBC (3.5-6.1) 10^6/uL Hgb (12.0-16.0) g/dL Hct (36.0-48.0) % MCV (80.0-105.0) fl MCH (25.0-35.0) pg MCHC (31.0-37.0) g/dl RDW (11.5-14.5) % Plt Count (120.0-450.0) 10^3/uL MPV (7.0-11.0) fl Corrected WBC (Man) (4.5-11.0) K/mm3 Neutrophils % (Manual) (50.0-70.0) % Band Neutrophils % (0-2) % Lymphocytes % (Manual) (22.0-35.0) % Atypical Lymphs % (0.0-0.0) % Monocytes % (Manual) (1.0-6.0) % Eosinophils % (Manual) (0.0-3.0) % Promyelocytes % % Nucleated RBC % % Platelet Evaluation (NORMAL) Large Platelets Polychromasia Hypochromasia Poikilocytosis (manual Anisocytosis (manual) Macrocytosis (manual) Sickle Cells Target Cells Tear Drop Cells Ovalocytes Retic Count (0.5-1.5) % PT (9.9-11.8) Seconds INR (0.93-1.08) Sodium 138 (132-148) mmol/L Potassium 5.1 H (3.6-5.0) mmol/L Chloride 99 (98-107) mmol/L Carbon Dioxide 24 (21-33) mmol/L Anion Gap 20 (10-20) BUN 29 H (7-21) mg/dL Creatinine 2.1 H (0.5-1.4) mg/dL Est GFR ( Amer) 32 Est GFR (Non-Af Amer) 26 POC Glucose (mg/dL) 114 H (65-110) mg/dL Random Glucose 89 (70-110) mg/dL Lactic Acid (0.7-2.1) mmol/L Calcium 8.0 L (8.4-10.5) mg/dL Phosphorus (2.5-4.5) mg/dL Magnesium (1.7-2.2) mg/dL Ferritin ng/mL Total Bilirubin 21.6 H* (0.2-1.3) mg/dL AST 2077 H (14-36) U/L ALT 307 H (7-56) U/L Alkaline Phosphatase 179 H (38-126) U/L Lactate Dehydrogenase (333-699) U/L Total Creatine Kinase (35-230) U/L Troponin I ng/mL NT-Pro-B Natriuret Pep (0-450) pg/mL Total Protein 7.5 (5.8-8.3) g/dL Albumin 2.8 L (3.0-4.8) g/dL Globulin 4.7 gm/dL Albumin/Globulin Ratio 0.6 L (1.1-1.8) Ceruloplasmin (18-53) mg/dL Alpha Fetoprotein < 0.8 (0.0-7.5) ng/mL Urine Color (YELLOW) Urine Appearance (CLEAR) Urine pH (4.7-8.0) Ur Specific [place] (1.005-1.035) Urine Protein (<30 mg/dL) mg/dL Urine Glucose (UA) (NEGATIVE) mg/dL Urine Ketones (NEGATIVE) mg/dL Urine Blood (NEGATIVE) Urine Nitrate (NEGATIVE) Urine Bilirubin (NEGATIVE) Urine Urobilinogen (<1 E.U./dL) E.U./dL Ur Leukocyte Esterase (NEGATIVE) Luz/uL Urine RBC (0-2) /hpf Urine WBC (0-6) /hpf Ur Epithelial Cells (0-5) /hpf Amorphous Sediment Urine Bacteria (NEG) Urine Osmolality (50-645) mosm/kg Ur Random Creatinine mg/dL U Random Total Protein Ur Random Sodium meq/L Ur Random Potassium meq/L Urine Opiates Screen (NEGATIVE) Urine Methadone Screen (NEGATIVE) Ur Barbiturates Screen (NEGATIVE) Ur Phencyclidine Scrn (NEGATIVE) Ur Amphetamines Screen (NEGATIVE) U Benzodiazepines Scrn (NEGATIVE) U Oth Cocaine Metabols (NEGATIVE) U Cannabinoids Screen (NEGATIVE) 09/11/15/16 11/15/16 Range/Units 07:03 07:03 07:03 WBC 21.5 H D (4.5-11.0) 10^3/ul RBC 2.17 L (3.5-6.1) 10^6/uL Hgb 7.8 L (12.0-16.0) g/dL Hct 22.4 L (36.0-48.0) % MCV 103.2 (80.0-105.0) fl MCH 35.9 H (25.0-35.0) pg MCHC 34.8 (31.0-37.0) g/dl RDW 26.1 H (11.5-14.5) % Plt Count 143 (120.0-450.0) 10^3/uL MPV 11.2 H (7.0-11.0) fl Corrected WBC (Man) 13.4 H (4.5-11.0) K/mm3 Neutrophils % (Manual) 74 H (50.0-70.0) % Band Neutrophils % 3 H (0-2) % Lymphocytes % (Manual) 14 L (22.0-35.0) % Atypical Lymphs % 1 H (0.0-0.0) % Monocytes % (Manual) 6 (1.0-6.0) % Eosinophils % (Manual) 1 (0.0-3.0) % Promyelocytes % 1 % Nucleated RBC % 60 % Platelet Evaluation Normal (NORMAL) Large Platelets Present Polychromasia Slight Hypochromasia 2+ Poikilocytosis (manual 2+ Anisocytosis (manual) 3+ Macrocytosis (manual) 1+ Sickle Cells 1+ Target Cells Slight Tear Drop Cells Slight Ovalocytes 1+ Retic Count 19.71 H* (0.5-1.5) % PT 32.2 H* (9.9-11.8) Seconds INR 2.98 H (0.93-1.08) Sodium 136 (132-148) mmol/L Potassium 5.2 H (3.6-5.0) mmol/L Chloride 99 (98-107) mmol/L Carbon Dioxide 23 (21-33) mmol/L Anion Gap 19 (10-20) BUN 28 H (7-21) mg/dL Creatinine 2.1 H (0.5-1.4) mg/dL Est GFR ( Amer) 32 Est GFR (Non-Af Amer) 26 POC Glucose (mg/dL) (65-110) mg/dL Random Glucose 99 (70-110) mg/dL Lactic Acid (0.7-2.1) mmol/L Calcium 7.9 L (8.4-10.5) mg/dL Phosphorus 5.9 H (2.5-4.5) mg/dL Magnesium 1.6 L (1.7-2.2) mg/dL Ferritin ng/mL Total Bilirubin 21.1 H* (0.2-1.3) mg/dL AST 1852 H (14-36) U/L ALT 286 H (7-56) U/L Alkaline Phosphatase 181 H (38-126) U/L Lactate Dehydrogenase (333-699) U/L Total Creatine Kinase (35-230) U/L Troponin I ng/mL NT-Pro-B Natriuret Pep (0-450) pg/mL Total Protein 7.2 (5.8-8.3) g/dL Albumin 2.7 L (3.0-4.8) g/dL Globulin 4.5 gm/dL Albumin/Globulin Ratio 0.6 L (1.1-1.8) Ceruloplasmin (18-53) mg/dL Alpha Fetoprotein (0.0-7.5) ng/mL Urine Color (YELLOW) Urine Appearance (CLEAR) Urine pH (4.7-8.0) Ur Specific [place] (1.005-1.035) Urine Protein (<30 mg/dL) mg/dL Urine Glucose (UA) (NEGATIVE) mg/dL Urine Ketones (NEGATIVE) mg/dL Urine Blood (NEGATIVE) Urine Nitrate (NEGATIVE) Urine Bilirubin (NEGATIVE) Urine Urobilinogen (<1 E.U./dL) E.U./dL Ur Leukocyte Esterase (NEGATIVE) Luz/uL Urine RBC (0-2) /hpf Urine WBC (0-6) /hpf Ur Epithelial Cells (0-5) /hpf Amorphous Sediment Urine Bacteria (NEG) Urine Osmolality (50-645) mosm/kg Ur Random Creatinine mg/dL U Random Total Protein Ur Random Sodium meq/L Ur Random Potassium meq/L Urine Opiates Screen (NEGATIVE) Urine Methadone Screen (NEGATIVE) Ur Barbiturates Screen (NEGATIVE) Ur Phencyclidine Scrn (NEGATIVE) Ur Amphetamines Screen (NEGATIVE) U Benzodiazepines Scrn (NEGATIVE) U Oth Cocaine Metabols (NEGATIVE) U Cannabinoids Screen (NEGATIVE) 11/15/16 11/15/16 11/15/16 Range/Units 07:00 05:06 01:13 WBC (4.5-11.0) 10^3/ul RBC (3.5-6.1) 10^6/uL Hgb (12.0-16.0) g/dL Hct (36.0-48.0) % MCV (80.0-105.0) fl MCH (25.0-35.0) pg MCHC (31.0-37.0) g/dl RDW (11.5-14.5) % Plt Count (120.0-450.0) 10^3/uL MPV (7.0-11.0) fl Corrected WBC (Man) (4.5-11.0) K/mm3 Neutrophils % (Manual) (50.0-70.0) % Band Neutrophils % (0-2) % Lymphocytes % (Manual) (22.0-35.0) % Atypical Lymphs % (0.0-0.0) % Monocytes % (Manual) (1.0-6.0) % Eosinophils % (Manual) (0.0-3.0) % Promyelocytes % % Nucleated RBC % % Platelet Evaluation (NORMAL) Large Platelets Polychromasia Hypochromasia Poikilocytosis (manual Anisocytosis (manual) Macrocytosis (manual) Sickle Cells Target Cells Tear Drop Cells Ovalocytes Retic Count (0.5-1.5) % PT (9.9-11.8) Seconds INR (0.93-1.08) Sodium (132-148) mmol/L Potassium (3.6-5.0) mmol/L Chloride (98-107) mmol/L Carbon Dioxide (21-33) mmol/L Anion Gap (10-20) BUN (7-21) mg/dL Creatinine (0.5-1.4) mg/dL Est GFR ( Amer) Est GFR (Non-Af Amer) POC Glucose (mg/dL) 121 H 115 H (65-110) mg/dL Random Glucose (70-110) mg/dL Lactic Acid (0.7-2.1) mmol/L Calcium (8.4-10.5) mg/dL Phosphorus (2.5-4.5) mg/dL Magnesium (1.7-2.2) mg/dL Ferritin ng/mL Total Bilirubin (0.2-1.3) mg/dL AST (14-36) U/L ALT (7-56) U/L Alkaline Phosphatase (38-126) U/L Lactate Dehydrogenase (333-699) U/L Total Creatine Kinase (35-230) U/L Troponin I ng/mL NT-Pro-B Natriuret Pep 44754 H (0-450) pg/mL Total Protein (5.8-8.3) g/dL Albumin (3.0-4.8) g/dL Globulin gm/dL Albumin/Globulin Ratio (1.1-1.8) Ceruloplasmin (18-53) mg/dL Alpha Fetoprotein (0.0-7.5) ng/mL Urine Color (YELLOW) Urine Appearance (CLEAR) Urine pH (4.7-8.0) Ur Specific [place] (1.005-1.035) Urine Protein (<30 mg/dL) mg/dL Urine Glucose (UA) (NEGATIVE) mg/dL Urine Ketones (NEGATIVE) mg/dL Urine Blood (NEGATIVE) Urine Nitrate (NEGATIVE) Urine Bilirubin (NEGATIVE) Urine Urobilinogen (<1 E.U./dL) E.U./dL Ur Leukocyte Esterase (NEGATIVE) Luz/uL Urine RBC (0-2) /hpf Urine WBC (0-6) /hpf Ur Epithelial Cells (0-5) /hpf Amorphous Sediment Urine Bacteria (NEG) Urine Osmolality (50-645) mosm/kg Ur Random Creatinine mg/dL U Random Total Protein Ur Random Sodium meq/L Ur Random Potassium meq/L Urine Opiates Screen (NEGATIVE) Urine Methadone Screen (NEGATIVE) Ur Barbiturates Screen (NEGATIVE) Ur Phencyclidine Scrn (NEGATIVE) Ur Amphetamines Screen (NEGATIVE) U Benzodiazepines Scrn (NEGATIVE) U Oth Cocaine Metabols (NEGATIVE) U Cannabinoids Screen (NEGATIVE) 11/15/16 11/15/16 11/14/16 Range/Units 00:20 00:20 21:05 WBC (4.5-11.0) 10^3/ul RBC (3.5-6.1) 10^6/uL Hgb (12.0-16.0) g/dL Hct (36.0-48.0) % MCV (80.0-105.0) fl MCH (25.0-35.0) pg MCHC (31.0-37.0) g/dl RDW (11.5-14.5) % Plt Count (120.0-450.0) 10^3/uL MPV (7.0-11.0) fl Corrected WBC (Man) (4.5-11.0) K/mm3 Neutrophils % (Manual) (50.0-70.0) % Band Neutrophils % (0-2) % Lymphocytes % (Manual) (22.0-35.0) % Atypical Lymphs % (0.0-0.0) % Monocytes % (Manual) (1.0-6.0) % Eosinophils % (Manual) (0.0-3.0) % Promyelocytes % % Nucleated RBC % % Platelet Evaluation (NORMAL) Large Platelets Polychromasia Hypochromasia Poikilocytosis (manual Anisocytosis (manual) Macrocytosis (manual) Sickle Cells Target Cells Tear Drop Cells Ovalocytes Retic Count (0.5-1.5) % PT (9.9-11.8) Seconds INR (0.93-1.08) Sodium (132-148) mmol/L Potassium (3.6-5.0) mmol/L Chloride (98-107) mmol/L Carbon Dioxide (21-33) mmol/L Anion Gap (10-20) BUN (7-21) mg/dL Creatinine (0.5-1.4) mg/dL Est GFR ( Amer) Est GFR (Non-Af Amer) POC Glucose (mg/dL) 129 H (65-110) mg/dL Random Glucose (70-110) mg/dL Lactic Acid (0.7-2.1) mmol/L Calcium (8.4-10.5) mg/dL Phosphorus (2.5-4.5) mg/dL Magnesium (1.7-2.2) mg/dL Ferritin ng/mL Total Bilirubin (0.2-1.3) mg/dL AST (14-36) U/L ALT (7-56) U/L Alkaline Phosphatase (38-126) U/L Lactate Dehydrogenase (333-699) U/L Total Creatine Kinase (35-230) U/L Troponin I ng/mL NT-Pro-B Natriuret Pep (0-450) pg/mL Total Protein (5.8-8.3) g/dL Albumin (3.0-4.8) g/dL Globulin gm/dL Albumin/Globulin Ratio (1.1-1.8) Ceruloplasmin (18-53) mg/dL Alpha Fetoprotein (0.0-7.5) ng/mL Urine Color Brown (YELLOW) Urine Appearance Cloudy (CLEAR) Urine pH 6.5 (4.7-8.0) Ur Specific [place] 1.020 (1.005-1.035) Urine Protein 100 H (<30 mg/dL) mg/dL Urine Glucose (UA) 100 H (NEGATIVE) mg/dL Urine Ketones Trace H (NEGATIVE) mg/dL Urine Blood Moderate H (NEGATIVE) Urine Nitrate Positive H (NEGATIVE) Urine Bilirubin Large H (NEGATIVE) Urine Urobilinogen 4.0 H (<1 E.U./dL) E.U./dL Ur Leukocyte Esterase Negative (NEGATIVE) Luz/uL Urine RBC 1 - 3 (0-2) /hpf Urine WBC 0 - 2 (0-6) /hpf Ur Epithelial Cells 0 - 2 (0-5) /hpf Amorphous Sediment Small Urine Bacteria Few (NEG) Urine Osmolality 322 (50-645) mosm/kg Ur Random Creatinine 114 mg/dL U Random Total Protein Cancelled Ur Random Sodium 46 meq/L Ur Random Potassium 66.7 meq/L Urine Opiates Screen Positive H (NEGATIVE) Urine Methadone Screen Negative (NEGATIVE) Ur Barbiturates Screen Negative (NEGATIVE) Ur Phencyclidine Scrn Negative (NEGATIVE) Ur Amphetamines Screen Negative (NEGATIVE) U Benzodiazepines Scrn Negative (NEGATIVE) U Oth Cocaine Metabols Negative (NEGATIVE) U Cannabinoids Screen Negative (NEGATIVE) 11/14/16 11/14/16 11/14/16 Range/Units 16:47 16:47 14:24 WBC (4.5-11.0) 10^3/ul RBC (3.5-6.1) 10^6/uL Hgb (12.0-16.0) g/dL Hct (36.0-48.0) % MCV (80.0-105.0) fl MCH (25.0-35.0) pg MCHC (31.0-37.0) g/dl RDW (11.5-14.5) % Plt Count (120.0-450.0) 10^3/uL MPV (7.0-11.0) fl Corrected WBC (Man) (4.5-11.0) K/mm3 Neutrophils % (Manual) (50.0-70.0) % Band Neutrophils % (0-2) % Lymphocytes % (Manual) (22.0-35.0) % Atypical Lymphs % (0.0-0.0) % Monocytes % (Manual) (1.0-6.0) % Eosinophils % (Manual) (0.0-3.0) % Promyelocytes % % Nucleated RBC % % Platelet Evaluation (NORMAL) Large Platelets Polychromasia Hypochromasia Poikilocytosis (manual Anisocytosis (manual) Macrocytosis (manual) Sickle Cells Target Cells Tear Drop Cells Ovalocytes Retic Count (0.5-1.5) % PT (9.9-11.8) Seconds INR (0.93-1.08) Sodium (132-148) mmol/L Potassium (3.6-5.0) mmol/L Chloride (98-107) mmol/L Carbon Dioxide (21-33) mmol/L Anion Gap (10-20) BUN (7-21) mg/dL Creatinine (0.5-1.4) mg/dL Est GFR ( Amer) Est GFR (Non-Af Amer) POC Glucose (mg/dL) (65-110) mg/dL Random Glucose (70-110) mg/dL Lactic Acid (0.7-2.1) mmol/L Calcium (8.4-10.5) mg/dL Phosphorus (2.5-4.5) mg/dL Magnesium 1.5 L (1.7-2.2) mg/dL Ferritin > 73930.0 ng/mL Total Bilirubin (0.2-1.3) mg/dL AST (14-36) U/L ALT (7-56) U/L Alkaline Phosphatase (38-126) U/L Lactate Dehydrogenase (333-699) U/L Total Creatine Kinase (35-230) U/L Troponin I ng/mL NT-Pro-B Natriuret Pep (0-450) pg/mL Total Protein (5.8-8.3) g/dL Albumin (3.0-4.8) g/dL Globulin gm/dL Albumin/Globulin Ratio (1.1-1.8) Ceruloplasmin 44 (18-53) mg/dL Alpha Fetoprotein (0.0-7.5) ng/mL Urine Color (YELLOW) Urine Appearance (CLEAR) Urine pH (4.7-8.0) Ur Specific [place] (1.005-1.035) Urine Protein (<30 mg/dL) mg/dL Urine Glucose (UA) (NEGATIVE) mg/dL Urine Ketones (NEGATIVE) mg/dL Urine Blood (NEGATIVE) Urine Nitrate (NEGATIVE) Urine Bilirubin (NEGATIVE) Urine Urobilinogen (<1 E.U./dL) E.U./dL Ur Leukocyte Esterase (NEGATIVE) Luz/uL Urine RBC (0-2) /hpf Urine WBC (0-6) /hpf Ur Epithelial Cells (0-5) /hpf Amorphous Sediment Urine Bacteria (NEG) Urine Osmolality (50-645) mosm/kg Ur Random Creatinine mg/dL U Random Total Protein Ur Random Sodium meq/L Ur Random Potassium meq/L Urine Opiates Screen (NEGATIVE) Urine Methadone Screen (NEGATIVE) Ur Barbiturates Screen (NEGATIVE) Ur Phencyclidine Scrn (NEGATIVE) Ur Amphetamines Screen (NEGATIVE) U Benzodiazepines Scrn (NEGATIVE) U Oth Cocaine Metabols (NEGATIVE) U Cannabinoids Screen (NEGATIVE) Laboratory Results - last 24 hr 11/14/16 11/14/16 11/14/16 14:24 16:47 16:47 WBC RBC Hgb Hct MCV MCH MCHC RDW Plt Count MPV Corrected WBC (Man) Neutrophils % (Manual) Band Neutrophils % Lymphocytes % (Manual) Atypical Lymphs % Monocytes % (Manual) Eosinophils % (Manual) Promyelocytes % Nucleated RBC % Platelet Evaluation Large Platelets Polychromasia Hypochromasia Poikilocytosis (manual Anisocytosis (manual) Macrocytosis (manual) Sickle Cells Target Cells Tear Drop Cells Ovalocytes Retic Count PT INR Sodium Potassium Chloride Carbon Dioxide Anion Gap BUN Creatinine Est GFR ( Amer) Est GFR (Non-Af Amer) POC Glucose (mg/dL) Random Glucose Lactic Acid Calcium Phosphorus Magnesium 1.5 L Ferritin > 00580.0 Total Bilirubin AST ALT Alkaline Phosphatase Lactate Dehydrogenase Total Creatine Kinase Troponin I NT-Pro-B Natriuret Pep Total Protein Albumin Globulin Albumin/Globulin Ratio Ceruloplasmin 44 Alpha Fetoprotein Urine Color Urine Appearance Urine pH Ur Specific [place] Urine Protein Urine Glucose (UA) Urine Ketones Urine Blood Urine Nitrate Urine Bilirubin Urine Urobilinogen Ur Leukocyte Esterase Urine RBC Urine WBC Ur Epithelial Cells Amorphous Sediment Urine Bacteria Urine Osmolality Ur Random Creatinine U Random Total Protein Ur Random Sodium Ur Random Potassium Urine Opiates Screen Urine Methadone Screen Ur Barbiturates Screen Ur Phencyclidine Scrn Ur Amphetamines Screen U Benzodiazepines Scrn U Oth Cocaine Metabols U Cannabinoids Screen 11/14/16 11/15/16 11/15/16 21:05 00:20 00:20 WBC RBC Hgb Hct MCV MCH MCHC RDW Plt Count MPV Corrected WBC (Man) Neutrophils % (Manual) Band Neutrophils % Lymphocytes % (Manual) Atypical Lymphs % Monocytes % (Manual) Eosinophils % (Manual) Promyelocytes % Nucleated RBC % Platelet Evaluation Large Platelets Polychromasia Hypochromasia Poikilocytosis (manual Anisocytosis (manual) Macrocytosis (manual) Sickle Cells Target Cells Tear Drop Cells Ovalocytes Retic Count PT INR Sodium Potassium Chloride Carbon Dioxide Anion Gap BUN Creatinine Est GFR ( Amer) Est GFR (Non-Af Amer) POC Glucose (mg/dL) 129 H Random Glucose Lactic Acid Calcium Phosphorus Magnesium Ferritin Total Bilirubin AST ALT Alkaline Phosphatase Lactate Dehydrogenase Total Creatine Kinase Troponin I NT-Pro-B Natriuret Pep Total Protein Albumin Globulin Albumin/Globulin Ratio Ceruloplasmin Alpha Fetoprotein Urine Color Brown Urine Appearance Cloudy Urine pH 6.5 Ur Specific [place] 1.020 Urine Protein 100 H Urine Glucose (UA) 100 H Urine Ketones Trace H Urine Blood Moderate H Urine Nitrate Positive H Urine Bilirubin Large H Urine Urobilinogen 4.0 H Ur Leukocyte Esterase Negative Urine RBC 1 - 3 Urine WBC 0 - 2 Ur Epithelial Cells 0 - 2 Amorphous Sediment Small Urine Bacteria Few Urine Osmolality 322 Ur Random Creatinine 114 U Random Total Protein Cancelled Ur Random Sodium 46 Ur Random Potassium 66.7 Urine Opiates Screen Positive H Urine Methadone Screen Negative Ur Barbiturates Screen Negative Ur Phencyclidine Scrn Negative Ur Amphetamines Screen Negative U Benzodiazepines Scrn Negative U Oth Cocaine Metabols Negative U Cannabinoids Screen Negative 11/15/16 11/15/16 11/15/16 01:13 05:06 07:00 WBC RBC Hgb Hct MCV MCH MCHC RDW Plt Count MPV Corrected WBC (Man) Neutrophils % (Manual) Band Neutrophils % Lymphocytes % (Manual) Atypical Lymphs % Monocytes % (Manual) Eosinophils % (Manual) Promyelocytes % Nucleated RBC % Platelet Evaluation Large Platelets Polychromasia Hypochromasia Poikilocytosis (manual Anisocytosis (manual) Macrocytosis (manual) Sickle Cells Target Cells Tear Drop Cells Ovalocytes Retic Count PT INR Sodium Potassium Chloride Carbon Dioxide Anion Gap BUN Creatinine Est GFR ( Amer) Est GFR (Non-Af Amer) POC Glucose (mg/dL) 115 H 121 H Random Glucose Lactic Acid Calcium Phosphorus Magnesium Ferritin Total Bilirubin AST ALT Alkaline Phosphatase Lactate Dehydrogenase Total Creatine Kinase Troponin I NT-Pro-B Natriuret Pep 55811 H Total Protein Albumin Globulin Albumin/Globulin Ratio Ceruloplasmin Alpha Fetoprotein Urine Color Urine Appearance Urine pH Ur Specific [place] Urine Protein Urine Glucose (UA) Urine Ketones Urine Blood Urine Nitrate Urine Bilirubin Urine Urobilinogen Ur Leukocyte Esterase Urine RBC Urine WBC Ur Epithelial Cells Amorphous Sediment Urine Bacteria Urine Osmolality Ur Random Creatinine U Random Total Protein Ur Random Sodium Ur Random Potassium Urine Opiates Screen Urine Methadone Screen Ur Barbiturates Screen Ur Phencyclidine Scrn Ur Amphetamines Screen U Benzodiazepines Scrn U Oth Cocaine Metabols U Cannabinoids Screen 11/15/16 11/15/16 11/15/16 07:03 07:03 07:03 WBC 21.5 H D RBC 2.17 L Hgb 7.8 L Hct 22.4 L MCV 103.2 MCH 35.9 H MCHC 34.8 RDW 26.1 H Plt Count 143 MPV 11.2 H Corrected WBC (Man) 13.4 H Neutrophils % (Manual) 74 H Band Neutrophils % 3 H Lymphocytes % (Manual) 14 L Atypical Lymphs % 1 H Monocytes % (Manual) 6 Eosinophils % (Manual) 1 Promyelocytes % 1 Nucleated RBC % 60 Platelet Evaluation Normal Large Platelets Present Polychromasia Slight Hypochromasia 2+ Poikilocytosis (manual 2+ Anisocytosis (manual) 3+ Macrocytosis (manual) 1+ Sickle Cells 1+ Target Cells Slight Tear Drop Cells Slight Ovalocytes 1+ Retic Count 19.71 H* PT 32.2 H* INR 2.98 H Sodium 136 Potassium 5.2 H Chloride 99 Carbon Dioxide 23 Anion Gap 19 BUN 28 H Creatinine 2.1 H Est GFR ( Amer) 32 Est GFR (Non-Af Amer) 26 POC Glucose (mg/dL) Random Glucose 99 Lactic Acid Calcium 7.9 L Phosphorus 5.9 H Magnesium 1.6 L Ferritin Total Bilirubin 21.1 H* AST 1852 H ALT 286 H Alkaline Phosphatase 181 H Lactate Dehydrogenase Total Creatine Kinase Troponin I NT-Pro-B Natriuret Pep Total Protein 7.2 Albumin 2.7 L Globulin 4.5 Albumin/Globulin Ratio 0.6 L Ceruloplasmin Alpha Fetoprotein Urine Color Urine Appearance Urine pH Ur Specific [place] Urine Protein Urine Glucose (UA) Urine Ketones Urine Blood Urine Nitrate Urine Bilirubin Urine Urobilinogen Ur Leukocyte Esterase Urine RBC Urine WBC Ur Epithelial Cells Amorphous Sediment Urine Bacteria Urine Osmolality Ur Random Creatinine U Random Total Protein Ur Random Sodium Ur Random Potassium Urine Opiates Screen Urine Methadone Screen Ur Barbiturates Screen Ur Phencyclidine Scrn Ur Amphetamines Screen U Benzodiazepines Scrn U Oth Cocaine Metabols U Cannabinoids Screen 11/15/16 11/15/16 11/15/16 07:15 07:32 09:18 WBC RBC Hgb Hct MCV MCH MCHC RDW Plt Count MPV Corrected WBC (Man) Neutrophils % (Manual) Band Neutrophils % Lymphocytes % (Manual) Atypical Lymphs % Monocytes % (Manual) Eosinophils % (Manual) Promyelocytes % Nucleated RBC % Platelet Evaluation Large Platelets Polychromasia Hypochromasia Poikilocytosis (manual Anisocytosis (manual) Macrocytosis (manual) Sickle Cells Target Cells Tear Drop Cells Ovalocytes Retic Count PT INR Sodium 138 Potassium 5.1 H Chloride 99 Carbon Dioxide 24 Anion Gap 20 BUN 29 H Creatinine 2.1 H Est GFR ( Amer) 32 Est GFR (Non-Af Amer) 26 POC Glucose (mg/dL) 114 H Random Glucose 89 Lactic Acid Calcium 8.0 L Phosphorus Magnesium Ferritin Total Bilirubin 21.6 H* AST 2077 H ALT 307 H Alkaline Phosphatase 179 H Lactate Dehydrogenase Total Creatine Kinase Troponin I NT-Pro-B Natriuret Pep Total Protein 7.5 Albumin 2.8 L Globulin 4.7 Albumin/Globulin Ratio 0.6 L Ceruloplasmin Alpha Fetoprotein < 0.8 Urine Color Urine Appearance Urine pH Ur Specific [place] Urine Protein Urine Glucose (UA) Urine Ketones Urine Blood Urine Nitrate Urine Bilirubin Urine Urobilinogen Ur Leukocyte Esterase Urine RBC Urine WBC Ur Epithelial Cells Amorphous Sediment Urine Bacteria Urine Osmolality Ur Random Creatinine U Random Total Protein Ur Random Sodium Ur Random Potassium Urine Opiates Screen Urine Methadone Screen Ur Barbiturates Screen Ur Phencyclidine Scrn Ur Amphetamines Screen U Benzodiazepines Scrn U Oth Cocaine Metabols U Cannabinoids Screen 11/15/16 11/15/16 11/15/16 09:45 09:46 15:45 WBC RBC Hgb Hct MCV MCH MCHC RDW Plt Count MPV Corrected WBC (Man) Neutrophils % (Manual) Band Neutrophils % Lymphocytes % (Manual) Atypical Lymphs % Monocytes % (Manual) Eosinophils % (Manual) Promyelocytes % Nucleated RBC % Platelet Evaluation Large Platelets Polychromasia Hypochromasia Poikilocytosis (manual Anisocytosis (manual) Macrocytosis (manual) Sickle Cells Target Cells Tear Drop Cells Ovalocytes Retic Count PT INR Sodium Potassium Chloride Carbon Dioxide Anion Gap BUN Creatinine Est GFR ( Amer) Est GFR (Non-Af Amer) POC Glucose (mg/dL) 94 Random Glucose Lactic Acid 3.8 H Calcium Phosphorus Magnesium Ferritin Total Bilirubin AST ALT Alkaline Phosphatase Lactate Dehydrogenase 3656 H Total Creatine Kinase 30 L Troponin I 0.10 D NT-Pro-B Natriuret Pep Total Protein Albumin Globulin Albumin/Globulin Ratio Ceruloplasmin Alpha Fetoprotein Urine Color Urine Appearance Urine pH Ur Specific [place] Urine Protein Urine Glucose (UA) Urine Ketones Urine Blood Urine Nitrate Urine Bilirubin Urine Urobilinogen Ur Leukocyte Esterase Urine RBC Urine WBC Ur Epithelial Cells Amorphous Sediment Urine Bacteria Urine Osmolality Ur Random Creatinine U Random Total Protein Ur Random Sodium Ur Random Potassium Urine Opiates Screen Urine Methadone Screen Ur Barbiturates Screen Ur Phencyclidine Scrn Ur Amphetamines Screen U Benzodiazepines Scrn U Oth Cocaine Metabols U Cannabinoids Screen EKG/Cardiology Studies: Cardiology / EKG Studies 11/15/16 09:40 ELECTROCARDIOGRAM Stat Comment: Reason For Exam: chest pain PRE OP:: N Does Patient Have a Pacemaker?: No Fingerstick Blood Sugar Results: 114 Review of Systems - Review of Systems All systems: reviewed and no additional remarkable complaints except - Constitutional Constitutional: absent: Fever, Chills - EENT Eyes: UNREMARKABLE - Cardiovascular Cardiovascular: Chest Pain - Respiratory Respiratory: absent: Cough - Gastrointestinal Gastrointestinal: Abdominal Pain (occasional). absent: Nausea, Vomiting - Integumentary Integumentary: UNREMARKABLE - Neurological Neurological: UNREMARKABLE Critical Care Progress Note - Extremities/Vascular Does the Patient have a Central Venous Catheter?: No Does the Patient need a Central Venous Catheter?: No Does the Patient have a Diaz Catheter?: Yes Does the Patient need a Diaz Catheter?: Yes Catheter Insertion Criteria: Need for accurate measurement of output in critically ill patient - Prophylaxis GI Prophylaxis GI: PPI - Prophylaxis DVT Prophylaxis DVT: SCDs Assessment/Plan - Assessment and Plan (Free Text) Assessment: 36F w/PMH sig for Sickle cell disease, Bipolar d/o, Cerebral palsy, Asthma, CHF 35-40%, Grade III Diastolic dysfxn admitted to ICU 2/2 worsening lab work, possible acute chest syndrome Plan: Neuro hx Cerebal palsy AOx3 Stable Monitor CVS Hx CHF Lasix 40mg daily Daily wts Strict I/Os Cards following Pulm Duonebs SaO2 97% on 2L NC Target SaO2>88% Monitor Nephro MELITON vs. ARF BUN 29 Cr 2.1 1/2 NS@125 Hyperkalemia 5.1 Monitor Nephro following GI FLD Hyperbilirubinemia 21.6 Transaminitis GI Following - Liver transplant team contacted at [facility]- in talks regarding possible liver transplant Monitor Heme Sickle cell crisis Hgb 7.8 from 8.1 Hct 22.4 from 23.0 Retic count 19.71 PT 32.2 INR 2.98 Dilaudid 1mg Q3H ultram Desferal Ergocalciferol FOlic Acid Hydroxyurea MV Heme following ID Temp 97.5 Leukocytosis 21.5 from 15.9 Lactic acid 3.8 Cefepime Vanc ID following MSK PT/OT Speech therapy Psych Psych following GI/DVT ppx heparin Protonix SCDs Dispo Continue ICU care DW attending Kay, PGY-1 - Date & Time Date: 11/15/16 Time: 19:09 <Real ANGUIANO,Inaalexis H - Last Filed: 11/21/16 15:16> CCU Objective - Vital Signs / Intake & Output Vital Signs (Last 4 hours): Vital Signs Pulse Resp BP Pulse Ox 11/21/16 15:08 102 H 21 86/65 L 99 11/21/16 15:07 103 H 27 H 11/21/16 15:01 102 H 19 11/21/16 15:00 105 H 15 84/71 L 99 11/21/16 14:47 107 H 22 114/83 99 11/21/16 14:45 109 H 12 85/41 L 98 11/21/16 14:35 107 H 28 H 11/21/16 14:34 106 H 19 98/65 L 11/21/16 14:33 102 H 18 100 11/21/16 14:32 105 H 23 11/21/16 14:31 104 H 28 H 11/21/16 14:16 103 H 29 H 95/75 L 100 11/21/16 14:00 100 H 24 109/77 98 11/21/16 13:45 102 H 22 115/79 99 11/21/16 13:30 102 H 21 99/67 L 98 11/21/16 13:00 103 H 23 111/75 98 11/21/16 12:30 105 H 23 108/77 99 11/21/16 12:00 104 H 23 106/71 97 11/21/16 11:30 105 H 13 118/92 H 100 Intake and Output (Last 8hrs): Intake & Output 11/21/16 11/21/16 11/21/16 06:59 14:59 22:59 Intake Total 701 Output Total 400 Balance 301 Weight 170 lb 11.2 oz 170 lb Intake: IV 701 D10W 240 Left Femoral 67 right chest wall 200 Output: Urine 400 2-way Urethral 400 - Medications Active Medications: Active Medications Generic Name Dose Route Start Last Admin Trade Name Freq PRN Reason Stop Dose Admin Albuterol/Ipratropium 3 ml 11/16/16 14:00 11/21/16 13:33 Duoneb 3 Mg/0.5 Mg (3 Ml) Ud IH 3 ml [id number] ARLETTE Administration Budesonide 0.5 mg 11/16/16 20:00 11/21/16 07:34 Pulmicort Respules IH 0.5 mg [id number] ARLETTE Administration Ergocalciferol 1 cap 11/12/16 10:00 11/19/16 14:47 Drisdol 50,000 Intl Units Cap PO Not Given QWK ARLETTE Folic Acid 1 mg 11/12/16 10:00 11/21/16 10:07 Folic Acid PO Not Given DAILY ARLETTE Furosemide 40 mg 11/16/16 10:00 11/17/16 09:00 Lasix IVP 40 mg DAILY ARLETTE Administration Heparin Sodium (Porcine) 5,000 units 11/13/16 01:15 11/16/16 21:44 Heparin SC Not Given Q12 ARLETTE Protocol Hydrocortisone Sodium Succinate 50 mg 11/19/16 07:15 11/21/16 14:40 Solu-Cortef IVP 50 mg Q8 ARLETTE Administration Hydroxyurea 500 mg 11/12/16 10:00 11/21/16 10:08 Hydrea PO Not Given DAILY ARLETTE Vancomycin HCl 1 gm in 250 mls @ 167 mls/hr 11/15/16 11:30 11/20/16 10:12 Vancomycin 1gm IVPB 167 mls/hr DAILY ARLETTE Administration Protocol Cefepime HCl 1 gm in 100 mls @ 100 mls/hr 11/15/16 13:15 11/21/16 12:38 Maxipime 1gm IVPB 100 mls/hr Q24H ARLETTE Administration Protocol Dextrose 500 mls @ 20 mls/hr 11/16/16 18:45 11/20/16 17:46 Dextrose 10% In Water IV 20 mls/hr .Q24H ARLETTE Administration Propofol 1,000 mg in 100 mls @ 2.259 mls/hr 11/17/16 20:53 11/20/16 03:59 Diprivan IV 50 mcg/kg/min .Q24H PRN 22.589 mls/hr TITRATE PER MD ORDER Administration Protocol 5 MCG/KG/MIN NOREPINEPHRINE BIT/0.9 % NACL 4 mg in 250 mls @ 15 mls/hr 11/18/16 06:33 06:50 Levophed 4 Mg/ 250 Ml Ns Premixed IV 0 mcg/min .[id number] PRN 0 mls/hr TITRATE PER MD ORDER Titration Protocol 4 MCG/MIN Vasopressin 20 units/ Dextrose 101 mls @ 12.12 mls/hr 11/19/16 07:15 22:39 IV 12.12 mls/hr .[id number] ARLETTE Administration Protocol 0.04 U/MIN Metronidazole 500 mg in 100 mls @ 100 mls/hr 11/19/16 19:15 11/21/16 14:47 Flagyl IVPB 100 mls/hr Q8 ARLETTE Administration Protocol Dobutamine HCl/Dextrose 500 mg in 250 mls @ 5.647 mls/hr 11/20/16 07:32 11/21 07:49 Dobutamine/Dextrose 5% 500mg/250ml IV 5.647 mls/hr .Q24H PRN Administration TITRATE PER PROTOCOL Protocol 2.5 MCG/KG/MIN Lactic Acid 0 ea 11/13/16 09:22 Lac-Hydrin 12% Cream (140 G) TOP DAILY PRN Wound Lactulose 200 gm 11/19/16 12:00 11/21/16 05:10 Generlac [place] 11/24/16 12:01 200 gm Q6 ARLETTE Administration Multivitamins/Minerals 1 tab 11/12/16 11:30 11/21/16 10:07 Therapeutic-M Tab PO Not Given DAILY ARLETTE Pantoprazole Sodium 40 mg 11/19/16 22:00 11/21/16 10:06 Protonix Inj IVP 40 mg Q12 ARLETTE Administration Rifaximin 550 mg 11/18/16 10:15 11/19/16 14:57 Xifaxan PO Not Given BID ARLETTE Protocol - Patient Studies Lab Studies: Microbiology Studies 11/19/16 15:44 C. difficile Antigen & Toxin A,B (M - Final Stool Lab Studies 11/21/16 11/21/16 11/21/16 Range/Units 09:54 08:36 06:00 WBC (4.5-11.0) 10^3/ul RBC (3.5-6.1) 10^6/uL Hgb (12.0-16.0) g/dL Hct (36.0-48.0) % MCV (80.0-105.0) fl MCH (25.0-35.0) pg MCHC (31.0-37.0) g/dl RDW (11.5-14.5) % Plt Count (120.0-450.0) 10^3/uL Manual Plt Count 116 L (120-450) K/mm3 MPV (7.0-11.0) fl Baso % (Auto) (0.0-3.0) % Baso # (0.0-2.0) K/mm3 Corrected WBC (Man) (4.5-11.0) K/mm3 Neutrophils % (Manual) (50.0-70.0) % Band Neutrophils % (0-2) % Lymphocytes % (Manual) (22.0-35.0) % Monocytes % (Manual) (1.0-6.0) % Nucleated RBC % % Platelet Evaluation (NORMAL) Hypochromasia Poikilocytosis (manual Anisocytosis (manual) Microcytosis (manual) Ovalocytes Acanthocytes (Spur) Hemoglobinopathy Red Blood Count (3.80-5.10) Mill/mcL Hemoglobinopathy Hct (35.0-45.0) % Hemoglobinopathy Hgb (11.7-15.5) g/dL Hemoglobinopathy MCV (80.0-100.0) fL Hemoglobinopathy MCH (27.0-33.0) pg Hemoglobinopathy RDW (11.0-15.0) % PT (9.9-11.8) Seconds INR (0.93-1.08) Fibrinogen (187-400) mg/dL pCO2 42 (35-45) mm/Hg pO2 103.0 H (30-55) mm/Hg HCO3 28.5 H (21-28) mmol/L ABG pH 7.44 (7.35-7.45) ABG Total CO2 29.8 H (22-28) mmol.L ABG O2 Saturation 100.8 H (95-98) % ABG O2 Content 10.8 L (15-23) ML/dl ABG Base Excess 4.0 H (-2.0-3.0) mmol/L ABG Hemoglobin 7.9 L (11.7-17.4) g/dL ABG Carboxyhemoglobin 2.6 H (0.5-1.5) % POC ABG HHb (Measured) -0.8 L (0-5) % ABG Methemoglobin 2.5 (0.0-3.0) % ABG O2 Capacity 10.7 L (16-24) mL/dl ABG Potassium (3.6-5.2) mmol/L VBG pH (7.32-7.43) VBG pCO2 (40-60) VBG HCO3 (21-28) mmol/l VBG Total CO2 (22-28) mmol.L VBG O2 Sat (Calc) (40-65) % VBG Base Excess (0.0-2.0) mmol/L VBG Potassium (3.6-5.2) mmol/L Hgb O2 Saturation 95.6 (95.0-98.0) % Sodium (132-148) mmol/L Chloride (98-107) mmol/L Glucose (65-105) mg/dl Lactate (0.7-2.1) mmol/L FiO2 40.0 % Potassium (3.6-5.0) mmol/L Carbon Dioxide (21-33) mmol/L Anion Gap (10-20) BUN (7-21) mg/dL Creatinine (0.5-1.4) mg/dL Est GFR ( Amer) Est GFR (Non-Af Amer) POC Glucose (mg/dL) (65-110) mg/dL Random Glucose (70-110) mg/dL Calcium (8.4-10.5) mg/dL Phosphorus (2.5-4.5) mg/dL Magnesium (1.7-2.2) mg/dL Total Bilirubin (0.2-1.3) mg/dL AST (14-36) U/L ALT (7-56) U/L Alkaline Phosphatase (38-126) U/L Total Creatine Kinase (35-230) U/L Total Protein (5.8-8.3) g/dL Albumin (3.0-4.8) g/dL Globulin gm/dL Albumin/Globulin Ratio (1.1-1.8) Arterial Blood Potassium (3.6-5.2) mmol/L Venous Blood Potassium (3.6-5.2) mmol/L Vancomycin Trough 21.9 H* (5.0-10.0) ug/mL Ur L.pneumophila Ag (NEGATIVE) Blood Type Antibody Screen Crossmatch BBK History Checked 11/21/16 11/21/16 11/21/16 Range/Units 06:00 06:00 06:00 WBC 21.3 H D (4.5-11.0) 10^3/ul RBC 2.57 L (3.5-6.1) 10^6/uL Hgb 8.1 L (12.0-16.0) g/dL Hct 20.8 L* (36.0-48.0) % MCV 80.9 D (80.0-105.0) fl MCH 31.5 (25.0-35.0) pg MCHC 38.9 H (31.0-37.0) g/dl RDW 15.4 H (11.5-14.5) % Plt Count 93 L (120.0-450.0) 10^3/uL Manual Plt Count (120-450) K/mm3 MPV 8.5 (7.0-11.0) fl Baso % (Auto) (0.0-3.0) % Baso # (0.0-2.0) K/mm3 Corrected WBC (Man) 3.2 L (4.5-11.0) K/mm3 Neutrophils % (Manual) 70 (50.0-70.0) % Band Neutrophils % 4 H (0-2) % Lymphocytes % (Manual) 16 L (22.0-35.0) % Monocytes % (Manual) 10 H (1.0-6.0) % Nucleated RBC % 566 % Platelet Evaluation Low (NORMAL) Hypochromasia Slight Poikilocytosis (manual 1+ Anisocytosis (manual) Slight Microcytosis (manual) 1+ Ovalocytes Slight Acanthocytes (Spur) 1+ Hemoglobinopathy Red Blood Count (3.80-5.10) Mill/mcL Hemoglobinopathy Hct (35.0-45.0) % Hemoglobinopathy Hgb (11.7-15.5) g/dL Hemoglobinopathy MCV (80.0-100.0) fL Hemoglobinopathy MCH (27.0-33.0) pg Hemoglobinopathy RDW (11.0-15.0) % PT (9.9-11.8) Seconds INR (0.93-1.08) Fibrinogen (187-400) mg/dL pCO2 (35-45) mm/Hg pO2 64 H (30-55) mm/Hg HCO3 (21-28) mmol/L ABG pH (7.35-7.45) ABG Total CO2 (22-28) mmol.L ABG O2 Saturation (95-98) % ABG O2 Content (15-23) ML/dl ABG Base Excess (-2.0-3.0) mmol/L ABG Hemoglobin (11.7-17.4) g/dL ABG Carboxyhemoglobin (0.5-1.5) % POC ABG HHb (Measured) (0-5) % ABG Methemoglobin (0.0-3.0) % ABG O2 Capacity (16-24) mL/dl ABG Potassium (3.6-5.2) mmol/L VBG pH 7.37 (7.32-7.43) VBG pCO2 53.0 (40-60) VBG HCO3 30.6 H (21-28) mmol/l VBG Total CO2 32.2 H (22-28) mmol.L VBG O2 Sat (Calc) 97.9 H (40-65) % VBG Base Excess 4.0 H (0.0-2.0) mmol/L VBG Potassium 3.1 L (3.6-5.2) mmol/L Hgb O2 Saturation (95.0-98.0) % Sodium 134.0 136 (132-148) mmol/L Chloride 97.0 L 93 L (98-107) mmol/L Glucose 159 H (65-105) mg/dl Lactate 4.8 H* (0.7-2.1) mmol/L FiO2 21.0 % Potassium 3.1 L (3.6-5.0) mmol/L Carbon Dioxide 29 (21-33) mmol/L Anion Gap 17 (10-20) BUN 39 H (7-21) mg/dL Creatinine 1.8 H (0.5-1.4) mg/dL Est GFR ( Amer) 38 Est GFR (Non-Af Amer) 31 POC Glucose (mg/dL) (65-110) mg/dL Random Glucose 144 H (70-110) mg/dL Calcium 7.0 L (8.4-10.5) mg/dL Phosphorus 5.1 H (2.5-4.5) mg/dL Magnesium 1.5 L (1.7-2.2) mg/dL Total Bilirubin 20.7 H* (0.2-1.3) mg/dL AST 749 H D (14-36) U/L ALT 168 H (7-56) U/L Alkaline Phosphatase 484 H (38-126) U/L Total Creatine Kinase (35-230) U/L Total Protein 5.4 L (5.8-8.3) g/dL Albumin 2.6 L (3.0-4.8) g/dL Globulin 2.7 gm/dL Albumin/Globulin Ratio 1.0 L (1.1-1.8) Arterial Blood Potassium (3.6-5.2) mmol/L Venous Blood Potassium 3.1 L (3.6-5.2) mmol/L Vancomycin Trough (5.0-10.0) ug/mL Ur L.pneumophila Ag (NEGATIVE) Blood Type Antibody Screen Crossmatch BBK History Checked 11/21/16 11/21/16 11/21/16 Range/Units 06:00 05:45 00:40 WBC (4.5-11.0) 10^3/ul RBC (3.5-6.1) 10^6/uL Hgb (12.0-16.0) g/dL Hct (36.0-48.0) % MCV (80.0-105.0) fl MCH (25.0-35.0) pg MCHC (31.0-37.0) g/dl RDW (11.5-14.5) % Plt Count (120.0-450.0) 10^3/uL Manual Plt Count (120-450) K/mm3 MPV (7.0-11.0) fl Baso % (Auto) (0.0-3.0) % Baso # (0.0-2.0) K/mm3 Corrected WBC (Man) (4.5-11.0) K/mm3 Neutrophils % (Manual) (50.0-70.0) % Band Neutrophils % (0-2) % Lymphocytes % (Manual) (22.0-35.0) % Monocytes % (Manual) (1.0-6.0) % Nucleated RBC % % Platelet Evaluation (NORMAL) Hypochromasia Poikilocytosis (manual Anisocytosis (manual) Microcytosis (manual) Ovalocytes Acanthocytes (Spur) Hemoglobinopathy Red Blood Count (3.80-5.10) Mill/mcL Hemoglobinopathy Hct (35.0-45.0) % Hemoglobinopathy Hgb (11.7-15.5) g/dL Hemoglobinopathy MCV (80.0-100.0) fL Hemoglobinopathy MCH (27.0-33.0) pg Hemoglobinopathy RDW (11.0-15.0) % PT 19.5 H (9.9-11.8) Seconds INR 1.81 H (0.93-1.08) Fibrinogen 141.2 L (187-400) mg/dL pCO2 35 (35-45) mm/Hg pO2 168.0 H 56 H (30-55) mm/Hg HCO3 22.7 (21-28) mmol/L ABG pH 7.42 (7.35-7.45) ABG Total CO2 23.8 (22-28) mmol.L ABG O2 Saturation 101.0 H (95-98) % ABG O2 Content (15-23) ML/dl ABG Base Excess -1.3 (-2.0-3.0) mmol/L ABG Hemoglobin (11.7-17.4) g/dL ABG Carboxyhemoglobin (0.5-1.5) % POC ABG HHb (Measured) (0-5) % ABG Methemoglobin (0.0-3.0) % ABG O2 Capacity (16-24) mL/dl ABG Potassium 2.8 L (3.6-5.2) mmol/L VBG pH 7.34 (7.32-7.43) VBG pCO2 53.0 (40-60) VBG HCO3 28.6 H (21-28) mmol/l VBG Total CO2 30.2 H (22-28) mmol.L VBG O2 Sat (Calc) 95.8 H (40-65) % VBG Base Excess 1.8 (0.0-2.0) mmol/L VBG Potassium 3.2 L (3.6-5.2) mmol/L Hgb O2 Saturation (95.0-98.0) % Sodium 138.0 133.0 (132-148) mmol/L Chloride 108.0 H 97.0 L (98-107) mmol/L Glucose 130 H 184 H (65-105) mg/dl Lactate 3.7 H 5.0 H* (0.7-2.1) mmol/L FiO2 40.0 21.0 % Potassium (3.6-5.0) mmol/L Carbon Dioxide (21-33) mmol/L Anion Gap (10-20) BUN (7-21) mg/dL Creatinine (0.5-1.4) mg/dL Est GFR ( Amer) Est GFR (Non-Af Amer) POC Glucose (mg/dL) (65-110) mg/dL Random Glucose (70-110) mg/dL Calcium (8.4-10.5) mg/dL Phosphorus (2.5-4.5) mg/dL Magnesium (1.7-2.2) mg/dL Total Bilirubin (0.2-1.3) mg/dL AST (14-36) U/L ALT (7-56) U/L Alkaline Phosphatase (38-126) U/L Total Creatine Kinase (35-230) U/L Total Protein (5.8-8.3) g/dL Albumin (3.0-4.8) g/dL Globulin gm/dL Albumin/Globulin Ratio (1.1-1.8) Arterial Blood Potassium 2.8 L (3.6-5.2) mmol/L Venous Blood Potassium 3.2 L (3.6-5.2) mmol/L Vancomycin Trough (5.0-10.0) ug/mL Ur L.pneumophila Ag (NEGATIVE) Blood Type Antibody Screen Crossmatch BBK History Checked 11/20/16 11/20/16 11/20/16 Range/Units 20:31 20:31 20:31 WBC 13.9 H D (4.5-11.0) 10^3/ul RBC 3.04 L (3.5-6.1) 10^6/uL Hgb 9.0 L D (12.0-16.0) g/dL Hct 25.5 L (36.0-48.0) % MCV 83.9 (80.0-105.0) fl MCH 29.6 (25.0-35.0) pg MCHC 35.3 (31.0-37.0) g/dl RDW 14.9 H (11.5-14.5) % Plt Count 15 L* (120.0-450.0) 10^3/uL Manual Plt Count (120-450) K/mm3 MPV 10.3 (7.0-11.0) fl Baso % (Auto) 0.6 (0.0-3.0) % Baso # 0.09 (0.0-2.0) K/mm3 Corrected WBC (Man) (4.5-11.0) K/mm3 Neutrophils % (Manual) (50.0-70.0) % Band Neutrophils % (0-2) % Lymphocytes % (Manual) (22.0-35.0) % Monocytes % (Manual) (1.0-6.0) % Nucleated RBC % % Platelet Evaluation (NORMAL) Hypochromasia Poikilocytosis (manual Anisocytosis (manual) Microcytosis (manual) Ovalocytes Acanthocytes (Spur) Hemoglobinopathy Red Blood Count (3.80-5.10) Mill/mcL Hemoglobinopathy Hct (35.0-45.0) % Hemoglobinopathy Hgb (11.7-15.5) g/dL Hemoglobinopathy MCV (80.0-100.0) fL Hemoglobinopathy MCH (27.0-33.0) pg Hemoglobinopathy RDW (11.0-15.0) % PT (9.9-11.8) Seconds INR (0.93-1.08) Fibrinogen (187-400) mg/dL pCO2 (35-45) mm/Hg pO2 22 L (30-55) mm/Hg HCO3 (21-28) mmol/L ABG pH (7.35-7.45) ABG Total CO2 (22-28) mmol.L ABG O2 Saturation (95-98) % ABG O2 Content (15-23) ML/dl ABG Base Excess (-2.0-3.0) mmol/L ABG Hemoglobin (11.7-17.4) g/dL ABG Carboxyhemoglobin (0.5-1.5) % POC ABG HHb (Measured) (0-5) % ABG Methemoglobin (0.0-3.0) % ABG O2 Capacity (16-24) mL/dl ABG Potassium (3.6-5.2) mmol/L VBG pH 7.36 (7.32-7.43) VBG pCO2 47.0 (40-60) VBG HCO3 26.6 (21-28) mmol/l VBG Total CO2 28.0 (22-28) mmol.L VBG O2 Sat (Calc) 73.7 H (40-65) % VBG Base Excess 0.6 (0.0-2.0) mmol/L VBG Potassium 3.4 L (3.6-5.2) mmol/L Hgb O2 Saturation (95.0-98.0) % Sodium 133.0 134 (132-148) mmol/L Chloride 96.0 L 93 L (98-107) mmol/L Glucose 197 H (65-105) mg/dl Lactate 6.4 H* (0.7-2.1) mmol/L FiO2 21.0 % Potassium 3.3 L (3.6-5.0) mmol/L Carbon Dioxide 26 (21-33) mmol/L Anion Gap 18 (10-20) BUN 37 H (7-21) mg/dL Creatinine 1.7 H (0.5-1.4) mg/dL Est GFR ( Amer) 41 Est GFR (Non-Af Amer) 34 POC Glucose (mg/dL) (65-110) mg/dL Random Glucose 173 H (70-110) mg/dL Calcium 6.5 L* (8.4-10.5) mg/dL Phosphorus (2.5-4.5) mg/dL Magnesium (1.7-2.2) mg/dL Total Bilirubin 19.0 H* (0.2-1.3) mg/dL AST 1113 H (14-36) U/L ALT 184 H (7-56) U/L Alkaline Phosphatase 512 H D (38-126) U/L Total Creatine Kinase 165 (35-230) U/L Total Protein 5.2 L (5.8-8.3) g/dL Albumin 2.5 L (3.0-4.8) g/dL Globulin 2.7 gm/dL Albumin/Globulin Ratio 0.9 L (1.1-1.8) Arterial Blood Potassium (3.6-5.2) mmol/L Venous Blood Potassium 3.4 L (3.6-5.2) mmol/L Vancomycin Trough (5.0-10.0) ug/mL Ur L.pneumophila Ag (NEGATIVE) Blood Type Antibody Screen Crossmatch BBK History Checked 11/20/16 11/20/16 11/20/16 Range/Units 17:40 11:27 07:37 WBC (4.5-11.0) 10^3/ul RBC (3.5-6.1) 10^6/uL Hgb (12.0-16.0) g/dL Hct (36.0-48.0) % MCV (80.0-105.0) fl MCH (25.0-35.0) pg MCHC (31.0-37.0) g/dl RDW (11.5-14.5) % Plt Count (120.0-450.0) 10^3/uL Manual Plt Count (120-450) K/mm3 MPV (7.0-11.0) fl Baso % (Auto) (0.0-3.0) % Baso # (0.0-2.0) K/mm3 Corrected WBC (Man) (4.5-11.0) K/mm3 Neutrophils % (Manual) (50.0-70.0) % Band Neutrophils % (0-2) % Lymphocytes % (Manual) (22.0-35.0) % Monocytes % (Manual) (1.0-6.0) % Nucleated RBC % % Platelet Evaluation (NORMAL) Hypochromasia Poikilocytosis (manual Anisocytosis (manual) Microcytosis (manual) Ovalocytes Acanthocytes (Spur) Hemoglobinopathy Red Blood Count 3.11 L (3.80-5.10) Mill/mcL Hemoglobinopathy Hct 27.2 L (35.0-45.0) % Hemoglobinopathy Hgb 9.5 L (11.7-15.5) g/dL Hemoglobinopathy MCV 87.4 (80.0-100.0) fL Hemoglobinopathy MCH 30.7 (27.0-33.0) pg Hemoglobinopathy RDW 15.2 H (11.0-15.0) % PT (9.9-11.8) Seconds INR (0.93-1.08) Fibrinogen (187-400) mg/dL pCO2 (35-45) mm/Hg pO2 (30-55) mm/Hg HCO3 (21-28) mmol/L ABG pH (7.35-7.45) ABG Total CO2 (22-28) mmol.L ABG O2 Saturation (95-98) % ABG O2 Content (15-23) ML/dl ABG Base Excess (-2.0-3.0) mmol/L ABG Hemoglobin (11.7-17.4) g/dL ABG Carboxyhemoglobin (0.5-1.5) % POC ABG HHb (Measured) (0-5) % ABG Methemoglobin (0.0-3.0) % ABG O2 Capacity (16-24) mL/dl ABG Potassium (3.6-5.2) mmol/L VBG pH (7.32-7.43) VBG pCO2 (40-60) VBG HCO3 (21-28) mmol/l VBG Total CO2 (22-28) mmol.L VBG O2 Sat (Calc) (40-65) % VBG Base Excess (0.0-2.0) mmol/L VBG Potassium (3.6-5.2) mmol/L Hgb O2 Saturation (95.0-98.0) % Sodium (132-148) mmol/L Chloride (98-107) mmol/L Glucose (65-105) mg/dl Lactate (0.7-2.1) mmol/L FiO2 % Potassium (3.6-5.0) mmol/L Carbon Dioxide (21-33) mmol/L Anion Gap (10-20) BUN (7-21) mg/dL Creatinine (0.5-1.4) mg/dL Est GFR ( Amer) Est GFR (Non-Af Amer) POC Glucose (mg/dL) 198 H (65-110) mg/dL Random Glucose (70-110) mg/dL Calcium (8.4-10.5) mg/dL Phosphorus (2.5-4.5) mg/dL Magnesium (1.7-2.2) mg/dL Total Bilirubin (0.2-1.3) mg/dL AST (14-36) U/L ALT (7-56) U/L Alkaline Phosphatase (38-126) U/L Total Creatine Kinase (35-230) U/L Total Protein (5.8-8.3) g/dL Albumin (3.0-4.8) g/dL Globulin gm/dL Albumin/Globulin Ratio (1.1-1.8) Arterial Blood Potassium (3.6-5.2) mmol/L Venous Blood Potassium (3.6-5.2) mmol/L Vancomycin Trough (5.0-10.0) ug/mL Ur L.pneumophila Ag Negative (NEGATIVE) Blood Type Antibody Screen Crossmatch BBK History Checked 11/19/16 11/16/16 Range/Units 10:05 20:00 WBC (4.5-11.0) 10^3/ul RBC (3.5-6.1) 10^6/uL Hgb (12.0-16.0) g/dL Hct (36.0-48.0) % MCV (80.0-105.0) fl MCH (25.0-35.0) pg MCHC (31.0-37.0) g/dl RDW (11.5-14.5) % Plt Count (120.0-450.0) 10^3/uL Manual Plt Count (120-450) K/mm3 MPV (7.0-11.0) fl Baso % (Auto) (0.0-3.0) % Baso # (0.0-2.0) K/mm3 Corrected WBC (Man) (4.5-11.0) K/mm3 Neutrophils % (Manual) (50.0-70.0) % Band Neutrophils % (0-2) % Lymphocytes % (Manual) (22.0-35.0) % Monocytes % (Manual) (1.0-6.0) % Nucleated RBC % % Platelet Evaluation (NORMAL) Hypochromasia Poikilocytosis (manual Anisocytosis (manual) Microcytosis (manual) Ovalocytes Acanthocytes (Spur) Hemoglobinopathy Red Blood Count (3.80-5.10) Mill/mcL Hemoglobinopathy Hct (35.0-45.0) % Hemoglobinopathy Hgb (11.7-15.5) g/dL Hemoglobinopathy MCV (80.0-100.0) fL Hemoglobinopathy MCH (27.0-33.0) pg Hemoglobinopathy RDW (11.0-15.0) % PT (9.9-11.8) Seconds INR (0.93-1.08) Fibrinogen (187-400) mg/dL pCO2 (35-45) mm/Hg pO2 (30-55) mm/Hg HCO3 (21-28) mmol/L ABG pH (7.35-7.45) ABG Total CO2 (22-28) mmol.L ABG O2 Saturation (95-98) % ABG O2 Content (15-23) ML/dl ABG Base Excess (-2.0-3.0) mmol/L ABG Hemoglobin (11.7-17.4) g/dL ABG Carboxyhemoglobin (0.5-1.5) % POC ABG HHb (Measured) (0-5) % ABG Methemoglobin (0.0-3.0) % ABG O2 Capacity (16-24) mL/dl ABG Potassium (3.6-5.2) mmol/L VBG pH (7.32-7.43) VBG pCO2 (40-60) VBG HCO3 (21-28) mmol/l VBG Total CO2 (22-28) mmol.L VBG O2 Sat (Calc) (40-65) % VBG Base Excess (0.0-2.0) mmol/L VBG Potassium (3.6-5.2) mmol/L Hgb O2 Saturation (95.0-98.0) % Sodium (132-148) mmol/L Chloride (98-107) mmol/L Glucose (65-105) mg/dl Lactate (0.7-2.1) mmol/L FiO2 % Potassium (3.6-5.0) mmol/L Carbon Dioxide (21-33) mmol/L Anion Gap (10-20) BUN (7-21) mg/dL Creatinine (0.5-1.4) mg/dL Est GFR ( Amer) Est GFR (Non-Af Amer) POC Glucose (mg/dL) (65-110) mg/dL Random Glucose (70-110) mg/dL Calcium (8.4-10.5) mg/dL Phosphorus (2.5-4.5) mg/dL Magnesium (1.7-2.2) mg/dL Total Bilirubin (0.2-1.3) mg/dL AST (14-36) U/L ALT (7-56) U/L Alkaline Phosphatase (38-126) U/L Total Creatine Kinase (35-230) U/L Total Protein (5.8-8.3) g/dL Albumin (3.0-4.8) g/dL Globulin gm/dL Albumin/Globulin Ratio (1.1-1.8) Arterial Blood Potassium (3.6-5.2) mmol/L Venous Blood Potassium (3.6-5.2) mmol/L Vancomycin Trough (5.0-10.0) ug/mL Ur L.pneumophila Ag (NEGATIVE) Blood Type B POSITIVE Antibody Screen Negative Crossmatch See Detail See Detail BBK History Checked Patient has bt Laboratory Results - last 24 hr 11/16/16 11/19/16 11/20/16 20:00 10:05 07:37 WBC RBC Hgb Hct MCV MCH MCHC RDW Plt Count Manual Plt Count MPV Baso % (Auto) Baso # Corrected WBC (Man) Neutrophils % (Manual) Band Neutrophils % Lymphocytes % (Manual) Monocytes % (Manual) Nucleated RBC % Platelet Evaluation Hypochromasia Poikilocytosis (manual Anisocytosis (manual) Microcytosis (manual) Ovalocytes Acanthocytes (Spur) Hemoglobinopathy Red Blood Count Hemoglobinopathy Hct Hemoglobinopathy Hgb Hemoglobinopathy MCV Hemoglobinopathy MCH Hemoglobinopathy RDW PT INR Fibrinogen pCO2 pO2 HCO3 ABG pH ABG Total CO2 ABG O2 Saturation ABG O2 Content ABG Base Excess ABG Hemoglobin ABG Carboxyhemoglobin POC ABG HHb (Measured) ABG Methemoglobin ABG O2 Capacity ABG Potassium VBG pH VBG pCO2 VBG HCO3 VBG Total CO2 VBG O2 Sat (Calc) VBG Base Excess VBG Potassium Hgb O2 Saturation Sodium Chloride Glucose Lactate FiO2 Potassium Carbon Dioxide Anion Gap BUN Creatinine Est GFR ( Amer) Est GFR (Non-Af Amer) POC Glucose (mg/dL) Random Glucose Calcium Phosphorus Magnesium Total Bilirubin AST ALT Alkaline Phosphatase Total Creatine Kinase Total Protein Albumin Globulin Albumin/Globulin Ratio Arterial Blood Potassium Venous Blood Potassium Vancomycin Trough Ur L.pneumophila Ag Negative Blood Type B POSITIVE Antibody Screen Negative Crossmatch See Detail See Detail BBK History Checked Patient has bt 11/20/16 11/20/16 11/20/16 11:27 17:40 20:31 WBC 13.9 H D RBC 3.04 L Hgb 9.0 L D Hct 25.5 L MCV 83.9 MCH 29.6 MCHC 35.3 RDW 14.9 H Plt Count 15 L* Manual Plt Count MPV 10.3 Baso % (Auto) 0.6 Baso # 0.09 Corrected WBC (Man) Neutrophils % (Manual) Band Neutrophils % Lymphocytes % (Manual) Monocytes % (Manual) Nucleated RBC % Platelet Evaluation Hypochromasia Poikilocytosis (manual Anisocytosis (manual) Microcytosis (manual) Ovalocytes Acanthocytes (Spur) Hemoglobinopathy Red Blood Count 3.11 L Hemoglobinopathy Hct 27.2 L Hemoglobinopathy Hgb 9.5 L Hemoglobinopathy MCV 87.4 Hemoglobinopathy MCH 30.7 Hemoglobinopathy RDW 15.2 H PT INR Fibrinogen pCO2 pO2 HCO3 ABG pH ABG Total CO2 ABG O2 Saturation ABG O2 Content ABG Base Excess ABG Hemoglobin ABG Carboxyhemoglobin POC ABG HHb (Measured) ABG Methemoglobin ABG O2 Capacity ABG Potassium VBG pH VBG pCO2 VBG HCO3 VBG Total CO2 VBG O2 Sat (Calc) VBG Base Excess VBG Potassium Hgb O2 Saturation Sodium Chloride Glucose Lactate FiO2 Potassium Carbon Dioxide Anion Gap BUN Creatinine Est GFR ( Amer) Est GFR (Non-Af Amer) POC Glucose (mg/dL) 198 H Random Glucose Calcium Phosphorus Magnesium Total Bilirubin AST ALT Alkaline Phosphatase Total Creatine Kinase Total Protein Albumin Globulin Albumin/Globulin Ratio Arterial Blood Potassium Venous Blood Potassium Vancomycin Trough Ur L.pneumophila Ag Blood Type Antibody Screen Crossmatch BBK History Checked 11/20/16 11/20/16 11/21/16 20:31 20:31 00:40 WBC RBC Hgb Hct MCV MCH MCHC RDW Plt Count Manual Plt Count MPV Baso % (Auto) Baso # Corrected WBC (Man) Neutrophils % (Manual) Band Neutrophils % Lymphocytes % (Manual) Monocytes % (Manual) Nucleated RBC % Platelet Evaluation Hypochromasia Poikilocytosis (manual Anisocytosis (manual) Microcytosis (manual) Ovalocytes Acanthocytes (Spur) Hemoglobinopathy Red Blood Count Hemoglobinopathy Hct Hemoglobinopathy Hgb Hemoglobinopathy MCV Hemoglobinopathy MCH Hemoglobinopathy RDW PT INR Fibrinogen pCO2 pO2 22 L 56 H HCO3 ABG pH ABG Total CO2 ABG O2 Saturation ABG O2 Content ABG Base Excess ABG Hemoglobin ABG Carboxyhemoglobin POC ABG HHb (Measured) ABG Methemoglobin ABG O2 Capacity ABG Potassium VBG pH 7.36 7.34 VBG pCO2 47.0 53.0 VBG HCO3 26.6 28.6 H VBG Total CO2 28.0 30.2 H VBG O2 Sat (Calc) 73.7 H 95.8 H VBG Base Excess 0.6 1.8 VBG Potassium 3.4 L 3.2 L Hgb O2 Saturation Sodium 134 133.0 133.0 Chloride 93 L 96.0 L 97.0 L Glucose 197 H 184 H Lactate 6.4 H* 5.0 H* FiO2 21.0 21.0 Potassium 3.3 L Carbon Dioxide 26 Anion Gap 18 BUN 37 H Creatinine 1.7 H Est GFR ( Amer) 41 Est GFR (Non-Af Amer) 34 POC Glucose (mg/dL) Random Glucose 173 H Calcium 6.5 L* Phosphorus Magnesium Total Bilirubin 19.0 H* AST 1113 H ALT 184 H Alkaline Phosphatase 512 H D Total Creatine Kinase 165 Total Protein 5.2 L Albumin 2.5 L Globulin 2.7 Albumin/Globulin Ratio 0.9 L Arterial Blood Potassium Venous Blood Potassium 3.4 L 3.2 L Vancomycin Trough Ur L.pneumophila Ag Blood Type Antibody Screen Crossmatch BBK History Checked 11/21/16 11/21/16 11/21/16 05:45 06:00 06:00 WBC 21.3 H D RBC 2.57 L Hgb 8.1 L Hct 20.8 L* MCV 80.9 D MCH 31.5 MCHC 38.9 H RDW 15.4 H Plt Count 93 L Manual Plt Count MPV 8.5 Baso % (Auto) Baso # Corrected WBC (Man) 3.2 L Neutrophils % (Manual) 70 Band Neutrophils % 4 H Lymphocytes % (Manual) 16 L Monocytes % (Manual) 10 H Nucleated RBC % 566 Platelet Evaluation Low Hypochromasia Slight Poikilocytosis (manual 1+ Anisocytosis (manual) Slight Microcytosis (manual) 1+ Ovalocytes Slight Acanthocytes (Spur) 1+ Hemoglobinopathy Red Blood Count Hemoglobinopathy Hct Hemoglobinopathy Hgb Hemoglobinopathy MCV Hemoglobinopathy MCH Hemoglobinopathy RDW PT 19.5 H INR 1.81 H Fibrinogen 141.2 L pCO2 35 pO2 168.0 H HCO3 22.7 ABG pH 7.42 ABG Total CO2 23.8 ABG O2 Saturation 101.0 H ABG O2 Content ABG Base Excess -1.3 ABG Hemoglobin ABG Carboxyhemoglobin POC ABG HHb (Measured) ABG Methemoglobin ABG O2 Capacity ABG Potassium 2.8 L VBG pH VBG pCO2 VBG HCO3 VBG Total CO2 VBG O2 Sat (Calc) VBG Base Excess VBG Potassium Hgb O2 Saturation Sodium 138.0 Chloride 108.0 H Glucose 130 H Lactate 3.7 H FiO2 40.0 Potassium Carbon Dioxide Anion Gap BUN Creatinine Est GFR ( Amer) Est GFR (Non-Af Amer) POC Glucose (mg/dL) Random Glucose Calcium Phosphorus Magnesium Total Bilirubin AST ALT Alkaline Phosphatase Total Creatine Kinase Total Protein Albumin Globulin Albumin/Globulin Ratio Arterial Blood Potassium 2.8 L Venous Blood Potassium Vancomycin Trough Ur L.pneumophila Ag Blood Type Antibody Screen Crossmatch BBK History Checked 11/21/16 11/21/16 11/21/16 06:00 06:00 06:00 WBC RBC Hgb Hct MCV MCH MCHC RDW Plt Count Manual Plt Count 116 L MPV Baso % (Auto) Baso # Corrected WBC (Man) Neutrophils % (Manual) Band Neutrophils % Lymphocytes % (Manual) Monocytes % (Manual) Nucleated RBC % Platelet Evaluation Hypochromasia Poikilocytosis (manual Anisocytosis (manual) Microcytosis (manual) Ovalocytes Acanthocytes (Spur) Hemoglobinopathy Red Blood Count Hemoglobinopathy Hct Hemoglobinopathy Hgb Hemoglobinopathy MCV Hemoglobinopathy MCH Hemoglobinopathy RDW PT INR Fibrinogen pCO2 pO2 64 H HCO3 ABG pH ABG Total CO2 ABG O2 Saturation ABG O2 Content ABG Base Excess ABG Hemoglobin ABG Carboxyhemoglobin POC ABG HHb (Measured) ABG Methemoglobin ABG O2 Capacity ABG Potassium VBG pH 7.37 VBG pCO2 53.0 VBG HCO3 30.6 H VBG Total CO2 32.2 H VBG O2 Sat (Calc) 97.9 H VBG Base Excess 4.0 H VBG Potassium 3.1 L Hgb O2 Saturation Sodium 136 134.0 Chloride 93 L 97.0 L Glucose 159 H Lactate 4.8 H* FiO2 21.0 Potassium 3.1 L Carbon Dioxide 29 Anion Gap 17 BUN 39 H Creatinine 1.8 H Est GFR ( Amer) 38 Est GFR (Non-Af Amer) 31 POC Glucose (mg/dL) Random Glucose 144 H Calcium 7.0 L Phosphorus 5.1 H Magnesium 1.5 L Total Bilirubin 20.7 H* AST 749 H D ALT 168 H Alkaline Phosphatase 484 H Total Creatine Kinase Total Protein 5.4 L Albumin 2.6 L Globulin 2.7 Albumin/Globulin Ratio 1.0 L Arterial Blood Potassium Venous Blood Potassium 3.1 L Vancomycin Trough Ur L.pneumophila Ag Blood Type Antibody Screen Crossmatch BBK History Checked 11/21/16 11/21/16 08:36 09:54 WBC RBC Hgb Hct MCV MCH MCHC RDW Plt Count Manual Plt Count MPV Baso % (Auto) Baso # Corrected WBC (Man) Neutrophils % (Manual) Band Neutrophils % Lymphocytes % (Manual) Monocytes % (Manual) Nucleated RBC % Platelet Evaluation Hypochromasia Poikilocytosis (manual Anisocytosis (manual) Microcytosis (manual) Ovalocytes Acanthocytes (Spur) Hemoglobinopathy Red Blood Count Hemoglobinopathy Hct Hemoglobinopathy Hgb Hemoglobinopathy MCV Hemoglobinopathy MCH Hemoglobinopathy RDW PT INR Fibrinogen pCO2 42 pO2 103.0 H HCO3 28.5 H ABG pH 7.44 ABG Total CO2 29.8 H ABG O2 Saturation 100.8 H ABG O2 Content 10.8 L ABG Base Excess 4.0 H ABG Hemoglobin 7.9 L ABG Carboxyhemoglobin 2.6 H POC ABG HHb (Measured) -0.8 L ABG Methemoglobin 2.5 ABG O2 Capacity 10.7 L ABG Potassium VBG pH VBG pCO2 VBG HCO3 VBG Total CO2 VBG O2 Sat (Calc) VBG Base Excess VBG Potassium Hgb O2 Saturation 95.6 Sodium Chloride Glucose Lactate FiO2 40.0 Potassium Carbon Dioxide Anion Gap BUN Creatinine Est GFR ( Amer) Est GFR (Non-Af Amer) POC Glucose (mg/dL) Random Glucose Calcium Phosphorus Magnesium Total Bilirubin AST ALT Alkaline Phosphatase Total Creatine Kinase Total Protein Albumin Globulin Albumin/Globulin Ratio Arterial Blood Potassium Venous Blood Potassium Vancomycin Trough 21.9 H* Ur L.pneumophila Ag Blood Type Antibody Screen Crossmatch BBK History Checked Critical Care Progress Note - Nutrition Nutrition: Nutrition Category Date Time Status NPO Diet [DIET] Diets 11/18/16 Dinner Ordered Attending/Attestation - Attestation I have personally seen and examined this patient.: Yes I have fully participated in the care of the patient.: Yes I have reviewed all pertinent clinical information: Yes Notes (Text): 11/15/16 15:15 36 y/o F w/ presumed ACS SC crisis/ Pain crisis MODS w/ elevated TBILI and Renal failure Would need Exchange Transfusion Liver/hepatology follow up. Tx eval rejected by several institutions Poor prognosis cc time 55 min
[2016-11-15 19:42] LABS: PH,URINE 6.5 (4.7-8.0); URINE BILIRUBIN LARGE (NEGATIVE); URINE BLOOD LARGE (NEGATIVE); URINE GLUCOSE (UA) 250 mg/dL (NEGATIVE); URINE KETONE TRACE mg/dL (NEGATIVE); URINE LEUKOCYTE ESTERASE TRACE Leu/uL (NEGATIVE); URINE PROTEIN 100 mg/dL (<30 mg/dL)
[2016-11-15 19:43] LABS: URINE APPEARANCE CLOUDY (CLEAR); URINE COLOR BROWN (YELLOW)
[2016-11-15 19:54] LABS: URINE BACTERIA MOD (NEG)
[2016-11-15 19:58] LABS: MEAN CELL VOLUME 105.3 fl (80.0-105.0); MEAN CORPUSCULAR HEMOGLOBIN 36.5 pg (25.0-35.0); MEAN CORPUSCULAR HGB CONC 34.7 g/dl (31.0-37.0); MEAN PLATELET VOLUME 11.2 fl (7.0-11.0); PLATELET COUNT 131 10^3/uL (120.0-450.0); RED CELL DISTRIBUTION WIDTH 26.2 % (11.5-14.5)
[2016-11-15 20:12] LABS: ALB/GLOB RATIO 0.6 (1.1-1.8); CALCIUM 8.2 mg/dL (8.4-10.5); HEMATOCRIT 21.9 % (36.0-48.0); POTASSIUM 5.3 mmol/L (3.6-5.0); TOTAL PROTEIN 7.9 g/dL (5.8-8.3); WHITE BLOOD COUNT 27.3 10^3/ul (4.5-11.0)
[2016-11-15 20:13] LABS: BILIRUBIN,TOTAL 23.9 mg/dL (0.2-1.3)
[2016-11-15] MEDS ORDERED: Albuterol 0.083% Inhal Sol (2.5 mg/3 mL) UD IH PRN (20:32)
[2016-11-15] MEDS: Albuterol 0.083% Inhal Sol (2.5 mg/3 mL) UD IH PRN (20:40)
[2016-11-15 21:02] LABS: EOS # 0.3 (0.0-0.7); LYMPH # 4.7 (1.2-3.4); MONO # 2.5 (0.1-0.6)
[2016-11-15 21:03] LABS: CORRECTED WBC 6.8 K/mm3 (4.5-11.0); EOSINOPHIL 1 % (0.0-3.0); HYPOCHROMIA SLIGHT; NEUTROPHIL 73 % (50.0-70.0); NUCLEATED RED BLOOD CELL 304 %; PLATELET ESTIMATE NORMAL (NORMAL); POLYCHROMASIA 2+
[2016-11-15 21:04] LABS: ANISOCYTOSIS 4+; OVALOCYTES 2+; POIKILOCYTOSIS SLIGHT; TARGET CELLS 3+; TEAR DROP CELLS 1+
[2016-11-15] MEDS: SODIUM CHLORIDE 0.9% IV SCH (21:59)
[2016-11-15] MEDS: DEFEROXAMINE IV SCH (21:59)
[2016-11-16] MEDS ORDERED: DiphenhydrAMINE 50 mg/ml Inj IVP ONE (00:46)
--- NOTE | 2016-11-16 01:11 | CARD ---
APPROVED REPORT EKG Measurement Heart [id number] ID [id number] <Conclusion> Normal sinus rhythm Possible Anterior infarct, age undetermined Abnormal ECG
--- NOTE | 2016-11-16 01:12 | CON ---
DATE: HISTORY OF PRESENT ILLNESS: The patient is 36-year-old female, multiple medical issues, sickle cell disease, bipolar, asthma, CHF. Patient was admitted to CCU unit for nausea, vomiting and possible sepsis. Psych consult was called for evaluation of depression. This contract technical writer was attempted to speak to the patient, but patient was status post Dilaudid. Patient has multiple medical issues, which needs to be addressed first before Psychiatrist will intervene. At present moment, the patient has multiple medical problems. PHYSICAL EXAMINATION VITAL SIGNS: Unstable. Temperature 97.5, pulse is 97, blood pressure 91/58. LABORATORY DATA: Patient also has labs which show leucocytosis, WBC's 21.5, hemoglobin and hematocrit are 7.8 and 22.4. Reticulocyte count is 19.71. Chemistry also showed bilirubin elevated, AST and ALT is much elevated at 2000, 77 and 307 respectively. Mental status examination is not possible at present moment. Please re-consult after patient will be doing better from the medical standpoint. Discussed with the medical reimbursement specialist as well as attending doctor Dr. Pritchett. Please re-consult as needed. Thank you very much. Fadia Odonnell MD
[2016-11-16] MEDS: Sodium Chloride 0.45% 1,000 ML IV SCH ×2 (01:21→05:43)
--- NOTE | 2016-11-16 01:25 | CON ---
DATE: NEPHROLOGY CONSULTATION HISTORY OF PRESENT ILLNESS: The patient is a 36-year-old female with past medical history of sickle cell disease with multiple admissions for pancreatitis, bipolar disorder, cerebral palsy, asthma, and recently discovered CHF with reduced systolic function. Initially presented to ED three days ago with abdominal pain in the right lower quadrant. The patient had been vomiting up bile and also reported several episodes of loose stool; the patient found to have increased transaminases and with hypotension yesterday. Nephrology now being consulted for acute renal failure. The patient is lethargic at the time of interview; therefore unable to adequately answer questions; per the patient primary asset protection professional, she has had multiple blood transfusions over the past year and is likely iron overloaded from this; the patient has been having relatively new onset bilateral leg edema and echo done in June of this year revealed reduced systolic function of 40% as well as moderate tricuspid regurgitation and RV ST that was elevated; the patient has also been found to have markedly increased hyperbilirubinemia mainly direct, markedly increased transaminase levels and increased INR. The patient also had low grade temperature 100.0 two days ago and with blood culture drawing coag negative staph in one bottle. The patient was started on vancomycin and cefepime today in the setting of increased leukocytosis; PAST MEDICAL HISTORY: As above. PAST SURGICAL HISTORY: Status post cholecystectomy. FAMILY HISTORY: Both parents with sickle cell trait. SOCIAL HISTORY: Denies cigarette smoking. REVIEW OF SYSTEMS: Limited due to the patient lethargy. PHYSICAL EXAMINATION VITAL SIGNS: This morning blood pressure 91/58, heart rate 88, respirations 18, temperature 97.5, and O2 sat 97% on room air. GENERAL: Lethargic, not able to accurately answer questions. HEENT: Icteric. Dry mucous membranes. RESPIRATORY: Left-sided rales present, right side relatively clear to auscultation. No respiratory distress. HEART: S1 and S2 normal. No murmurs. No gallops. No rubs. No JVD noted. ABDOMEN: Soft, nondistended. : Diaz in place. No bladder distention. EXTREMITIES: 2+ bilateral lower leg edema. SKIN: Warm. No cyanosis. Decreased capillary refill. PSYCHIATRIC: Not agitated. LABORATORY DATA: This morning, CBC: WBC 21.5, hemoglobin 7.8 decreased from 10.2 four days ago, hematocrit 22.4, platelets 143. Chemistry panel: Sodium 138, potassium 5.1, chloride 99, bicarb 24, BUN 29, creatinine 2.1, glucose 89, calcium 8.0, total bilirubin 21.6, AST 2077, ALT 307, alk phos 179, LDH 3656, CK 30, albumin 2.8. Ferritin from yesterday greater than 10,000. INR 2.98. UA this morning, specific gravity 1.020, 100 mg/dL protein, moderate blood, large bilirubin. ASSESSMENT AND PLAN: 1. Acute renal failure, oliguric renal failure in the setting of acute and chronic liver failure; the patient also hypotensive and with possible sepsis; volume repletion has been limited due to low ejection fraction and concern for pulmonary edema; however, need to exclude any prerenal etiology and therefore volume repletion has to be the main stage of treatment from renal prospective; they need to ensure adequate flow through renal tubules to avoid vasoocclusion; hepatorenal syndrome is also in the differential in the setting of acute liver failure and again cannot be diagnosed until prerenal component is addressed; the patient with dry mucous membrane and relatively hypotensive; agree with critical care team to give normal saline bolus; we will also place on standing half NS at 125 mL per hour. 2. Sickle cell crisis, concerned for acute chest syndrome in the setting vasoocclusive disease; however, hematology feeling that chest x-ray findings being unilateral, did not support acute chest syndrome; discussed possibility of RBC exchange in the setting multiorgan dysfunction. However, hematology feels that this will cause further iron overload; therefore for now main stage of treatment will be IV fluids. 3. Acute liver failure, being seen by GI, who was considering referral for liver transplant; if renal failure is secondary to hepatorenal syndrome than without improvement and liver function, the patient may become dialysis dependent imminently, in which case MELD score would further increase. 4. Systemic inflammatory response syndrome/sepsis, the patient with one positive blood culture of unclear significance started on vancomycin 1 mg q. 24 hours and cefepime 1 g q. 24 hours; we will check random vancomycin level tomorrow and if elevated should wait until level is less than 20 to redose. 5. Congestive heart failure with systolic dysfunction. The patient clinically does not appear to be in decompensated congestive heart failure despite increase leg swelling and chest x-ray finding; would continue with volume repletion in the setting of possible vasoocclusive disease and acute kidney injury. Critical care time spent assessing the patient and discussing with care teams greater than 35 minutes. Rai Perez MD
--- NOTE | 2016-11-16 04:13 | CON ---
CARDIOLOGY CONSULT DATE: REASON FOR CONSULTATION: Congestive heart failure. HISTORY OF PRESENT ILLNESS: The patient is [id number] female, has history of sickle cell disease, cerebral palsy, bipolar disorder, congestive heart failure, presented because of right upper quadrant pain. The patient was transferred to the ICU today because of generalized pain as well as shortness of breath and acute renal failure. The patient's most recent echocardiography study was in June of this year, which reveled ejection fraction in the range of 35% to 40% with moderate tricuspid regurgitation and right ventricular systolic pressure estimated as 45 mmHg. SOCIAL HISTORY: Nonsmoker. MEDICATIONS: Albuterol inhaler q. 6 hours p.r.n., deferoxamine infusion, Dilaudid 4 mg intravenously q. 3 hours p.r.n., folic acid 1 mg p.o. daily, heparin 5000 units subcutaneous twice a day, hydroxyurea 500 mg daily, Maxipime 1 g intravenously daily, half normal saline at 125 mL an hour, vancomycin 1 g intravenously daily. PHYSICAL EXAMINATION: GENERAL: The patient is middle-aged female, who is moderately tachypneic and anxious. VITAL SIGNS: Blood pressure 91/58, pulse of 88, temperature 97.5, respirations 18. HEENT: Pale conjunctivae. CHEST: Diffused bilateral rhonchi. HEART: S1 and S2 regular. ABDOMEN: Soft. EXTREMITIES: 1+ pitting edema. LABORATORY DATA: Hemoglobin and hematocrit are 7.8 and 22.4, white count 21.5, platelet count 143,000. Urine drug screen is positive for opiates. SMA-7: Sodium 138, potassium 5.3, chloride 99, CO2 of 16, glucose was 21 at the time of the chemistry workup and currently is 125. BUN and creatinine are 20 and 1.7 respectively. Total bilirubin 17.5. AST is 1165 and ALT is 147. Alkaline phosphatase is 180. INR is 2.98 and PT is 32.2. The most recent venous Doppler of the lower extremity was from the 11/04/2016, which was negative for DVT. Abdominal ultrasound revealed the patient's portal vein with hepatoportal flow. Chest x-ray revealed cardiomegaly with moderate CHF. Head CT scan without contrast revealed no acute intracranial abnormality. EKG revealed sinus rhythm at the rate of 88, poor R wave progression. Blood cultures negative after 48 hours. However, one set was positive for coagulase negative staphylococcus after 4 sets. ASSESSMENT: 1. Congestive heart failure. 2. Sickle cell crisis. 3. Anemia. 4. History of cerebral palsy. 5. Coagulopathy. 6. Cholestasis and jaundice. RECOMMENDATIONS: Continue current hydroxyurea, folic acid, IV Maxipime, and IV vancomycin. May discontinue subcutaneous heparin if approved by the accounting tutor. Start Lasix at 40 mg intravenously daily. The patient is not suitable candidate for either Aldactone or YAJAIRA inhibitors at least at this time in view of acute renal insufficiency. Consider repeat venous Doppler of the lower extremities. Obtain hepatitis profile. Pedro Luis Deshpande MD
[2016-11-16] MEDS: HYDROmorphone 0.5 mg/0.5 ml ISec IVP PRN ×4 (05:37→17:15)
[2016-11-16] MEDS: Pantoprazole 40 mg EC Tab PO SCH (05:45)
[2016-11-16 06:05] LABS: BASO # 0.14 K/mm3 (0.0-2.0); BASO % 0.4 % (0.0-3.0); MEAN CELL VOLUME 105.5 fl (80.0-105.0); MEAN CORPUSCULAR HEMOGLOBIN 37.3 pg (25.0-35.0); MEAN CORPUSCULAR HGB CONC 35.4 g/dl (31.0-37.0); MEAN PLATELET VOLUME 10.9 fl (7.0-11.0); PLATELET COUNT 127 10^3/uL (120.0-450.0); RED CELL DISTRIBUTION WIDTH 25.5 % (11.5-14.5)
[2016-11-16 06:15] LABS: HEMATOCRIT 21.2 % (36.0-48.0); WHITE BLOOD COUNT 32.3 10^3/ul (4.5-11.0)
[2016-11-16 06:27] LABS: ALB/GLOB RATIO 0.6 (1.1-1.8); MAGNESIUM 1.6 mg/dL (1.7-2.2); PHOSPHOROUS 6.7 mg/dL (2.5-4.5)
[2016-11-16 06:36] LABS: RETIC% 18.68 % (0.5-1.5)
[2016-11-16 06:37] LABS: BILIRUBIN,TOTAL 24.7 mg/dL (0.2-1.3); POTASSIUM 5.6 mmol/L (3.6-5.0)
[2016-11-16] MEDS ORDERED: Sodium Chloride 0.9% 1,000 ML IV SCH (07:00)
[2016-11-16] MEDS ORDERED: Sod Polystyrene Sulf 15 gm/60 ml Oral Susp PO ONE ×2 (07:39→17:10)
[2016-11-16] MEDS: Albuterol 0.083% Inhal Sol (2.5 mg/3 mL) UD IH PRN (07:41)
[2016-11-16] MEDS ORDERED: Dextrose 50% SYRINGE Inj (50 ml) IVP ONE ×2 (07:48→16:48)
[2016-11-16] MEDS ORDERED: Dextrose 50% SYRINGE Inj (50 ml) ONE ×2 (07:49→07:50)
[2016-11-16] MEDS: Vancomycin 1gm in NS 250ml 1 GM/250 ML BAG IVPB SCH ×2 (08:52→14:33)
[2016-11-16] MEDS: Multivitamin With Minerals Tab PO SCH (09:01)
--- NOTE | 2016-11-16 09:02 | CP.PCM.PN ---
Subjective - Date & Time of Evaluation Date of Evaluation: 11/16/16 Time of Evaluation: 08:54 - Subjective Subjective: Patient seen and examined, remains lethargic appearing in critical care unit. No acute events overnight. She continues to describe diffuse abdominal and upper/lower extremity pain. No reported nausea, vomiting, diarrhea, fever/ chills. Review of vitals from today shows elevated BP, tachycardia. 12 point review of systems performed, negative aside from mentioned above. Objective - Vital Signs/Intake and Output Vital Signs (last 24 hours): Temp Pulse Resp BP Pulse Ox 97.5 F L 102 H 11 L 132/85 98 11/15/16 23:38 11/16/16 08:22 11/16/16 08:22 11/16/16 08:01 11/16/16 06:01 Intake and Output: 11/16/16 11/16/16 06:59 18:59 Intake Total 2806 Output Total 390 Balance 2416 - Medications Medications: Current Medications Albuterol/Ipratropium (Duoneb 3 Mg/0.5 Mg (3 Ml) Ud) 3 ml IH [id number] [facility] Budesonide (Pulmicort Respules) 0.5 mg IH [id number] [facility] Ergocalciferol (Drisdol 50,000 Intl Units Cap) 1 cap PO QWK [facility] Last Admin: 11/12/16 09:20 Dose: 1 cap Folic Acid (Folic Acid) 1 mg PO DAILY [facility] Last Admin: 11/15/16 10:02 Dose: 1 mg Furosemide (Lasix) 40 mg IVP DAILY [facility] Heparin Sodium (Porcine) (Heparin) 5,000 units SC Q12 [facility] PRN Reason: Protocol Last Admin: 11/15/16 21:45 Dose: 5,000 units Hydromorphone HCl (Dilaudid) 1 mg IVP Q3H PRN PRN Reason: Pain, severe (8-10) Last Admin: 11/16/16 05:37 Dose: 1 mg Hydroxyurea (Hydrea) 500 mg PO DAILY [facility] Last Admin: 11/15/16 10:05 Dose: 500 mg Deferoxamine Mesylate 1,000 mg (/ Sodium Chloride) 500 mls @ 41.667 mls/hr IV 2100 [facility] Stop: 11/19/16 08:59 Last Admin: 11/15/16 21:59 Dose: 41.667 mls/hr Vancomycin HCl (Vancomycin 1gm) 1 gm in 250 mls @ 167 mls/hr IVPB DAILY [facility] PRN Reason: Protocol Last Admin: 11/15/16 18:28 Dose: 167 mls/hr Cefepime HCl (Maxipime 1gm) 1 gm in 100 mls @ 100 mls/hr IVPB Q24H [facility] PRN Reason: Protocol Last Admin: 11/15/16 16:04 Dose: 100 mls/hr Sodium Chloride (Sodium Chloride 0.9%) 1,000 mls @ 125 mls/hr IV .Q8H [facility] Lactic Acid (Lac-Hydrin 12% Cream (140 G)) 0 ea TOP DAILY PRN PRN Reason: Wound Lactulose (Enulose) 20 gm PO BID [facility] Multivitamins/Minerals (Therapeutic-M Tab) 1 tab PO DAILY [facility] Last Admin: 11/15/16 10:02 Dose: 1 tab Non-Formulary Medication (Mometasone [Asmanex Twisthaler 110 Mcg]) 100 mcg IH BID [facility] Last Admin: 11/15/16 21:20 Dose: Not Given Pantoprazole Sodium (Protonix Ec Tab) 40 mg PO 0600 [facility] Last Admin: 11/16/16 05:45 Dose: 40 mg Tramadol HCl (Ultram) 50 mg PO Q6 PRN PRN Reason: Pain, moderate (4-7) Last Admin: 11/15/16 08:55 Dose: 50 mg - Labs Labs: 11/16/16 05:15 11/16/16 05:15 PT 32.4 Seconds (9.9-11.8) H* 11/15/16 19:50 INR 3.00 (0.93-1.08) H 11/15/16 19:50 - Constitutional Appears: No Acute Distress, Chronically Ill - Eye Exam Eye Exam: EOMI - ENT Exam ENT Exam: Mucous Membranes Dry - Respiratory Exam Respiratory Exam: Rhonchi - Cardiovascular Exam Cardiovascular Exam: +S1, +S2 - GI/Abdominal Exam GI & Abdominal Exam: Soft, Tenderness, Normal Bowel Sounds Additional comments: generalized tenderness to palpation, no rebound/guarding - Extremities Exam Extremities Exam: Pedal Edema - Skin Skin Exam: Dry, Intact, Normal Color, Warm Assessment and Plan - Assessment and Plan (Free Text) Assessment: 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 Acute sickle cell crisis Renal insufficiency Plan: - Liquid diet as tolerated - Lactulose 20g BID for HE prevention, titrate so patient has 2-3 bowel movements daily - Pain control and management of sickle cell crisis as per medical team - Continue with antibiotic therapy as per ID - Iron chelation therapy as per hematology, follow up recommendations regarding potential plasmapheresis - Monitor creatinine, follow up nephrology recommendations, consider initiation of medication for HRS though renal insufficiency also potentially caused by sickle cell crisis - Continue to monitor INR, LFTs, mental status - patient with signs of progressive liver failure, has been accepted for transfer to [facility] under hepatology service, awaiting bed availability.
[2016-11-16] MEDS ORDERED: Vitamin A/D oint 60G TP PRN (09:41)
[2016-11-16] MEDS ORDERED: Vitamins A & D Oint UD Foilpak TOP PRN (10:18)
--- NOTE | 2016-11-16 10:18 | RAD ---
HISTORY: r/o CHF COMPARISON: 11/14/2016 FINDINGS: The right MediPort terminates at the cavoatrial junction. LUNGS: There are persistent low lung volumes. There is interval improved aeration in the lungs. PLEURA: Suspect left pleural effusion. No pneumothorax. CARDIOVASCULAR: Stable cardiomegaly. OSSEOUS STRUCTURES: No significant abnormalities. VISUALIZED UPPER ABDOMEN: Normal. OTHER FINDINGS: None. IMPRESSION: Stable cardiomegaly and interval improved aeration in the lungs. Suspect left pleural effusion.
[2016-11-16 10:29] LABS: ANISOCYTOSIS 2+; HYPOCHROMIA 2+; MYELOCYTE 3 %; NEUTROPHIL 65 % (50.0-70.0); PLATELET ESTIMATE LOW (NORMAL); POIKILOCYTOSIS 1+; POLYCHROMASIA SLIGHT
[2016-11-16 10:30] LABS: OVALOCYTES SLIGHT; STOMATOCYTE SLIGHT; TEAR DROP CELLS SLIGHT
[2016-11-16 10:31] LABS: NUCLEATED RED BLOOD CELL 70 %
[2016-11-16 11:55] LABS: COAG FACTOR VIII ACTIVITY 404 % (50-180)
[2016-11-16 13:59] LABS: ARTERIAL BLOOD GAS HCO3 13.5 mmol/L (21-28); ARTERIAL BLOOD GAS PH 7.22 (7.35-7.45)
[2016-11-16] MEDS: Cefepime 1gm in NS 100ml 1 GM/100 ML BAG IVPB SCH (14:35)
--- NOTE | 2016-11-16 16:55 | PN ---
SUBJECTIVE: The patient is comfortable on nasal O2. She is still receiving IV fluid infusion at 125 mL an hour and Lasix 40 mg intravenous daily, however, with very scant urine output. PHYSICAL EXAMINATION: VITAL SIGNS: Blood pressure 132/85, heart rate 102, respirations 14, temperature 97.5. HEENT: Pale conjunctivae. CHEST: Bibasilar rhonchi. HEART: S1 and S2, regular. EXTREMITIES: 2+ pitting edema. LABORATORY DATA: Hemoglobin and hematocrit 7.5 and 21.2; white count 32.3; platelet count is 127,000. SMA-7: Sodium 135, potassium 5.6, chloride 99, CO2 is 17, glucose 68, BUN 33 and creatinine 2.2. AST is 2386, ALT is 352. Total bilirubin is 24.7. Acute hepatitis profile is negative. Chest x-ray revealed cardiomegaly as well as moderate CHF, suspect left pleural effusion. ASSESSMENT: 1. Congestive heart failure. 2. Sickle cell crisis. 3. Iron overload. 4. Acute renal failure. 5. Hyperkalemia. 6. Cholestasis, jaundice and elevated liver enzymes. RECOMMENDATIONS: Continue current deferoxamine infusion. Continue subcutaneous heparin 5000 units twice a day, hydroxyurea 500 mg once a day, intravenous Lasix at 40 mg once a day, normal saline at 125 mL an hour. Case was discussed at length with the electromedical equipment technician as well as the naval gunfire spotter, Dr. Perez. May attempt to either renal dopamine infusion or forced diuresis with 80 mg of IV Lasix. However, no cardiac intervention is indicated at this time. Kayexalate 30 gram was given today. A followup chemistry is recommended and the patient is awaiting transfer to [facility] in the liver unit. Pedro Luis Deshpande MD
[2016-11-16] MEDS ORDERED: Sodium Bicarbonate 8.4% 75 MEQ in Dextrose 5%/0.45% NS 1,000 ML IV SCH (17:30)
[2016-11-16 17:52] LABS: VENOUS BLOOD GAS BASE EXCESS -15.5 mmol/L (0.0-2.0); VENOUS BLOOD PH 7.13 (7.32-7.43)
[2016-11-16 18:58] LABS: ARTERIAL BLOOD GAS HCO3 12.5 mmol/L (21-28)
[2016-11-16 19:09] LABS: ARTERIAL BLOOD GAS PH 7.15 (7.35-7.45)
[2016-11-16] MEDS ORDERED: Sodium Bicarbonate (8.4%) 50 Meq Syringe IVP STA (19:13)
--- NOTE | 2016-11-16 19:24 | CP.PCM.PN ---
Subjective - Date & Time of Evaluation Date of Evaluation: 11/16/16 Time of Evaluation: 18:00 - Subjective Subjective: Infectious Disease Follow Up: November 16, 2016 36 yo AA female well known to me from previous hospitalizations at [facility] and [facility] presented with generalized pains and admitted for Sickle Cell vasoocclusive Crisis. The patient was just discharged from [facility] a few days ago. She returns with abdominal pain, nausea, and vomiting. The patient did not exhibit a fever while hospitalized so far but came very close with a 100.0 F. Patient with nausea and vomiting and diarrhea. Her blood pressure is lower than her usual. Started on Zosyn for antibiotic treatment. Sudden elevation of LFTs. Zosyn stopped on 11/14/2016. Impending liver failure ? Acute Kidney Injury. Noted Vancomycin restarted. Would continue with Cefepime for the time being. There is a leukocytosis of 32.3 although corrected WBC is 19.0. Patient appears swollen in general. AST and ALT are still increasing. Chelation therapy still in progress. Supportive care. Renal dosing of antibiotics. Objective - Vital Signs/Intake and Output Vital Signs (last 24 hours): Temp Pulse Resp BP Pulse Ox 97.7 F 98 H 21 142/119 H 100 11/16/16 16:30 11/16/16 17:24 11/16/16 13:40 11/16/16 14:52 11/16/16 15:00 - Medications Medications: Current Medications Albuterol/Ipratropium (Duoneb 3 Mg/0.5 Mg (3 Ml) Ud) 3 ml IH [id number] [facility] Budesonide (Pulmicort Respules) 0.5 mg IH [id number] [facility] Ergocalciferol (Drisdol 50,000 Intl Units Cap) 1 cap PO QWK [facility] Last Admin: 11/12/16 09:20 Dose: 1 cap Folic Acid (Folic Acid) 1 mg PO DAILY [facility] Last Admin: 11/16/16 09:01 Dose: 1 mg Furosemide (Lasix) 40 mg IVP DAILY [facility] Last Admin: 11/16/16 09:00 Dose: 40 mg Heparin Sodium (Porcine) (Heparin) 5,000 units SC Q12 [facility] PRN Reason: Protocol Last Admin: 11/16/16 09:01 Dose: 5,000 units Hydromorphone HCl (Dilaudid) 1 mg IVP Q3H PRN PRN Reason: Pain, severe (8-10) Last Admin: 11/16/16 17:15 Dose: 1 mg Hydroxyurea (Hydrea) 500 mg PO DAILY [facility] Last Admin: 11/16/16 17:22 Dose: 500 mg Deferoxamine Mesylate 1,000 mg (/ Sodium Chloride) 500 mls @ 41.667 mls/hr IV 2100 [facility] Stop: 11/19/16 08:59 Last Admin: 11/15/16 21:59 Dose: 41.667 mls/hr Vancomycin HCl (Vancomycin 1gm) 1 gm in 250 mls @ 167 mls/hr IVPB DAILY [facility] PRN Reason: Protocol Last Admin: 11/16/16 14:33 Dose: Not Given Cefepime HCl (Maxipime 1gm) 1 gm in 100 mls @ 100 mls/hr IVPB Q24H [facility] PRN Reason: Protocol Last Admin: 11/16/16 14:35 Dose: 100 mls/hr Sodium Bicarbonate 75 meq/ (Sodium Chloride) 1,075 mls @ 125 mls/hr IV .Q8H36M [facility] Dextrose (Dextrose 10% In Water) 500 mls @ 20 mls/hr IV .Q24H [facility] Lactic Acid (Lac-Hydrin 12% Cream (140 G)) 0 ea TOP DAILY PRN PRN Reason: Wound Lactulose (Enulose) 20 gm PO BID [facility] Last Admin: 11/16/16 12:30 Dose: Not Given Multivitamins/Minerals (Therapeutic-M Tab) 1 tab PO DAILY [facility] Last Admin: 11/16/16 09:01 Dose: 1 tab Non-Formulary Medication (Mometasone [Asmanex Twisthaler 110 Mcg]) 100 mcg IH BID [facility] Last Admin: 11/15/16 21:20 Dose: Not Given Pantoprazole Sodium (Protonix Ec Tab) 40 mg PO 0600 [facility] Last Admin: 11/16/16 05:45 Dose: 40 mg Tramadol HCl (Ultram) 50 mg PO Q6 PRN PRN Reason: Pain, moderate (4-7) Last Admin: 11/16/16 09:01 Dose: 50 mg Vitamin A (Vitamin A & D Oint Ud Foilpak) 1 ea TOP Q8 PRN PRN Reason: Dry skin - Labs Labs: 11/16/16 05:15 09/23/17 05:15 PT 32.4 Seconds (9.9-11.8) H* 11/15/16 19:50 INR 3.00 (0.93-1.08) H 11/15/16 19:50 - Constitutional Appears: Non-toxic, No Acute Distress, Chronically Ill - Head Exam Head Exam: ATRAUMATIC, NORMOCEPHALIC - Eye Exam Eye Exam: EOMI, PERRL Pupil Exam: NORMAL ACCOMODATION, PERRL - ENT Exam ENT Exam: Mucous Membranes Moist, Normal External Ear Exam, TM's Normal Bilaterally - Neck Exam Neck Exam: Full ROM, Normal Inspection - Respiratory Exam Respiratory Exam: Clear to Ausculation Bilateral, NORMAL BREATHING PATTERN. absent: Rales, Rhonchi, Wheezes - Cardiovascular Exam Cardiovascular Exam: REGULAR RHYTHM, RRR, +S1, +S2 - GI/Abdominal Exam GI & Abdominal Exam: Soft, Normal Bowel Sounds. absent: Distended, Tenderness - Extremities Exam Extremities Exam: Joint Swelling, Pedal Edema - Neurological Exam Neurological Exam: Alert, Awake, CN II-XII Intact, Oriented x3 - Psychiatric Exam Psychiatric exam: Depressed, Flat Affect - Skin Skin Exam: Intact, Normal Color Assessment and Plan - Assessment and Plan (Free Text) Assessment: 36 yo AA female with known Sickle Cell disease presenting with diarrhea and abdominal pain. Low blood pressure/borderline hypotension. Supportive care. Velarde cultures. No leukocytosis noted however. Coagulase negative staph according to FISH studies. Sudden increase in LFTs and creatinine. Continue with renal dosing of Cefepime for now. Vancomycin should be adjusted for renal function. LFT are continuing to increase. Acute Kidney Injury with creatinine of 2.2. Transferred to MICU for further care. General edema of the patient. Still with generalized pains. Increasing leukocytosis. If continues to increase, will consider use of meropenem. Noted that the patient's cultures are negative to date. Thank you for allowing me to participate in the care of the patient, we will follow with you.
--- NOTE | 2016-11-16 19:27 | CARD ---
APPROVED REPORT EKG Measurement Heart [id number] <Conclusion> Normal sinus rhythm Cannot rule out Anterior infarct, age undetermined Abnormal ECG
[2016-11-16] MEDS ORDERED: Phytonadione 10 MG in Sodium Chloride 0.9% 50 ML IV ONE (19:35)
--- NOTE | 2016-11-16 19:42 | CP.PCM.PN ---
Subjective - Date & Time of Evaluation Date of Evaluation: 11/16/16 Time of Evaluation: 18:00 - Subjective Subjective: More lethargic, tachypnic Objective - Vital Signs/Intake and Output Vital Signs (last 24 hours): Temp Pulse Resp BP Pulse Ox 97.7 F 98 H 21 142/119 H 100 11/16/16 16:30 11/16/16 17:24 11/16/16 13:40 11/16/16 14:52 11/16/16 15:00 - Medications Medications: Current Medications Albuterol/Ipratropium (Duoneb 3 Mg/0.5 Mg (3 Ml) Ud) 3 ml IH [id number] [facility] Budesonide (Pulmicort Respules) 0.5 mg IH [id number] [facility] Ergocalciferol (Drisdol 50,000 Intl Units Cap) 1 cap PO QWK [facility] Last Admin: 11/12/16 09:20 Dose: 1 cap Folic Acid (Folic Acid) 1 mg PO DAILY [facility] Last Admin: 11/16/16 09:01 Dose: 1 mg Furosemide (Lasix) 40 mg IVP DAILY [facility] Last Admin: 11/16/16 09:00 Dose: 40 mg Heparin Sodium (Porcine) (Heparin) 5,000 units SC Q12 [facility] PRN Reason: Protocol Last Admin: 11/16/16 09:01 Dose: 5,000 units Hydromorphone HCl (Dilaudid) 1 mg IVP Q3H PRN PRN Reason: Pain, severe (8-10) Last Admin: 11/16/16 17:15 Dose: 1 mg Hydroxyurea (Hydrea) 500 mg PO DAILY [facility] Last Admin: 11/16/16 17:22 Dose: 500 mg Vancomycin HCl (Vancomycin 1gm) 1 gm in 250 mls @ 167 mls/hr IVPB DAILY [facility] PRN Reason: Protocol Last Admin: 11/16/16 14:33 Dose: Not Given Cefepime HCl (Maxipime 1gm) 1 gm in 100 mls @ 100 mls/hr IVPB Q24H [facility] PRN Reason: Protocol Last Admin: 11/16/16 14:35 Dose: 100 mls/hr Sodium Bicarbonate 75 meq/ (Sodium Chloride) 1,075 mls @ 125 mls/hr IV .Q8H36M [facility] Dextrose (Dextrose 10% In Water) 500 mls @ 20 mls/hr IV .Q24H [facility] Phytonadione 10 mg/ Sodium (Chloride) 51 mls @ 100 mls/hr IV ONCE ONE Stop: 11/16/16 20:05 Lactic Acid (Lac-Hydrin 12% Cream (140 G)) 0 ea TOP DAILY PRN PRN Reason: Wound Lactulose (Enulose) 20 gm PO BID [facility] Last Admin: 11/16/16 12:30 Dose: Not Given Multivitamins/Minerals (Therapeutic-M Tab) 1 tab PO DAILY [facility] Last Admin: 11/16/16 09:01 Dose: 1 tab Non-Formulary Medication (Mometasone [Asmanex Twisthaler 110 Mcg]) 100 mcg IH BID [facility] Last Admin: 11/15/16 21:20 Dose: Not Given Pantoprazole Sodium (Protonix Ec Tab) 40 mg PO 0600 [facility] Last Admin: 11/16/16 05:45 Dose: 40 mg Tramadol HCl (Ultram) 50 mg PO Q6 PRN PRN Reason: Pain, moderate (4-7) Last Admin: 11/16/16 09:01 Dose: 50 mg Vitamin A (Vitamin A & D Oint Ud Foilpak) 1 ea TOP Q8 PRN PRN Reason: Dry skin - Labs Labs: 11/16/16 05:15 11/16/16 05:15 PT 32.4 Seconds (9.9-11.8) H* 11/15/16 19:50 INR 3.00 (0.93-1.08) H 11/15/16 19:50 - Head Exam Head Exam: ATRAUMATIC - Eye Exam Eye Exam: Normal appearance - ENT Exam ENT Exam: Mucous Membranes Dry - Respiratory Exam Respiratory Exam: Respiratory Distress - Cardiovascular Exam Cardiovascular Exam: +S1, +S2 - GI/Abdominal Exam GI & Abdominal Exam: Normal Bowel Sounds - Extremities Exam Extremities Exam: Pedal Edema - Neurological Exam Neurological Exam: Altered Assessment and Plan (1) Sickle cell pain crisis Assessment & Plan: concern for increased iron burden with red cell exchange but given continued clinical decline, worsening LFTs and renal function, will plan to to red cell exchange the patient see is awaiting transfer to [facility] Status: Chronic (2) Iron overload due to repeated red blood cell transfusions Status: Chronic (3) Leukocytosis Status: Acute (4) Sickle cell anemia Status: Acute
[2016-11-16] MEDS: Budesonide 0.5 mg/2 ml Inhal Susp UD IH SCH (20:00)
[2016-11-16] MEDS: Albuterol-Ipratrop 3 mg / 0.5 (3 ml) UD IH SCH (20:00)
--- NOTE | 2016-11-16 20:33 | CP.PCM.CON ---
History of Present Illness - History of Present Illness History of Present Illness: Surgery: Dr. Chandra CC: Dialysis catheter placement HPI: 36F w. pmh of sickle cell anemia, bipolar disorder, cardiomyopathy with reduced EF, presents w. sickle cell pain crisis. Pt is currently in ICU in multi -organ failure. Pt has been accepted to [facility] and is pending transfer when bed becomes available. In the meantime, surgery has been consulted for placement of dialysis catheter for red cell exchange. Pt is lethargic and unable to answer questions. Hx was gathered by review of medical records. PMH: sickle cell anemia, bipolar disorder, cardiomyopathy with reduced EF PSH: cholecystectomy, portacath Meds: MAR reviewed ALL: tylenol, ASA, morphine Social: No ETOH/tobacco/drugs Fhx: Parents have sickle cell trait Review of Systems - Review of Systems Systems not reviewed;Unavailable: Acuity of Condition Past Patient History - Infectious Disease Hx of Infectious Diseases: None - Tetanus Immunizations Tetanus Immunization: Up to Date - Past Medical History & Family History Past Medical History?: Yes - Past Social History Smoking Status: Former Smoker - CARDIAC Hx Cardiac Disorders: Yes Hx Hypertension: Yes - PULMONARY Hx Asthma: Yes - NEUROLOGICAL Hx Neurological Disorder: No Other/Comment: CP - HEENT Hx HEENT Problems: No - RENAL Hx Chronic Kidney Disease: No - ENDOCRINE/METABOLIC Hx Endocrine Disorders: Yes - HEMATOLOGICAL/ONCOLOGICAL Hx Blood Disorders: Yes Hx Anemia: Yes - INTEGUMENTARY Hx Dermatological Problems: Yes Hx Eczema: Yes - MUSCULOSKELETAL/RHEUMATOLOGICAL Hx Falls: No - GASTROINTESTINAL Hx Gastrointestinal Disorders: Yes Hx Gastroesophageal Reflux: Yes Hx Pancreatitis: Yes - GENITOURINARY/GYNECOLOGICAL Hx Genitourinary Disorders: Yes Hx Urinary Tract Infection: Yes - PSYCHIATRIC Hx Psychophysiologic Disorder: Yes Hx Anxiety: Yes Hx Bipolar Disorder: Yes Hx Substance Use: No - SURGICAL HISTORY Hx Cholecystectomy: Yes Hx Splenectomy: Yes - ANESTHESIA Hx Anesthesia: Yes Hx Anesthesia Reactions: No Hx Malignant Hyperthermia: No Meds Allergies/Adverse Reactions: Allergies Allergy/AdvReac Type Severity Reaction Status Date / Time acetaminophen Allergy RASH Verified 09/24/16 12:42 aspirin Allergy RASH Verified 09/24/16 12:42 coconut oil Allergy RASH Verified 09/24/16 12:42 morphine Allergy SWELLING Verified 09/24/16 12:42 mushroom Allergy URTICARIA Verified 09/24/16 12:42 oxycodone Allergy RASH Verified 09/24/16 12:42 - Medications Medications: Current Medications Albuterol/Ipratropium (Duoneb 3 Mg/0.5 Mg (3 Ml) Ud) 3 ml IH [id number] REPLACED BY [facility] Budesonide (Pulmicort Respules) 0.5 mg IH [id number] REPLACED BY [facility] Ergocalciferol (Drisdol 50,000 Intl Units Cap) 1 cap PO QWK REPLACED BY [facility] Last Admin: 11/12/16 09:20 Dose: 1 cap Folic Acid (Folic Acid) 1 mg PO DAILY REPLACED BY [facility] Last Admin: 11/16/16 09:01 Dose: 1 mg Furosemide (Lasix) 40 mg IVP DAILY REPLACED BY [facility] Last Admin: 11/16/16 09:00 Dose: 40 mg Heparin Sodium (Porcine) (Heparin) 5,000 units SC Q12 REPLACED BY [facility] PRN Reason: Protocol Last Admin: 11/16/16 09:01 Dose: 5,000 units Hydromorphone HCl (Dilaudid) 1 mg IVP Q3H PRN PRN Reason: Pain, severe (8-10) Last Admin: 11/16/16 17:15 Dose: 1 mg Hydroxyurea (Hydrea) 500 mg PO DAILY REPLACED BY [facility] Last Admin: 11/16/16 17:22 Dose: 500 mg Vancomycin HCl (Vancomycin 1gm) 1 gm in 250 mls @ 167 mls/hr IVPB DAILY REPLACED BY [facility] PRN Reason: Protocol Last Admin: 11/16/16 14:33 Dose: Not Given Cefepime HCl (Maxipime 1gm) 1 gm in 100 mls @ 100 mls/hr IVPB Q24H REPLACED BY [facility] PRN Reason: Protocol Last Admin: 11/16/16 14:35 Dose: 100 mls/hr Sodium Bicarbonate 75 meq/ (Sodium Chloride) 1,075 mls @ 125 mls/hr IV .Q8H36M REPLACED BY [facility] Dextrose (Dextrose 10% In Water) 500 mls @ 20 mls/hr IV .Q24H REPLACED BY [facility] Lactic Acid (Lac-Hydrin 12% Cream (140 G)) 0 ea TOP DAILY PRN PRN Reason: Wound Lactulose (Enulose) 20 gm PO BID REPLACED BY [facility] Last Admin: 11/16/16 12:30 Dose: Not Given Multivitamins/Minerals (Therapeutic-M Tab) 1 tab PO DAILY REPLACED BY [facility] Last Admin: 11/16/16 09:01 Dose: 1 tab Non-Formulary Medication (Mometasone [Asmanex Twisthaler 110 Mcg]) 100 mcg IH BID REPLACED BY [facility] Last Admin: 11/15/16 21:20 Dose: Not Given Pantoprazole Sodium (Protonix Ec Tab) 40 mg PO 0600 REPLACED BY [facility] Last Admin: 11/16/16 05:45 Dose: 40 mg Tramadol HCl (Ultram) 50 mg PO Q6 PRN PRN Reason: Pain, moderate (4-7) Last Admin: 11/16/16 09:01 Dose: 50 mg Vitamin A (Vitamin A & D Oint Ud Foilpak) 1 ea TOP Q8 PRN PRN Reason: Dry skin Physical Exam - Constitutional Appears: Toxic, In Acute Distress, Chronically Ill - Head Exam Head Exam: ATRAUMATIC, NORMOCEPHALIC - Eye Exam Eye Exam: EOMI, Scleral icterus - ENT Exam ENT Exam: Mucous Membranes Moist, Normal External Ear Exam - Respiratory Exam Respiratory Exam: NORMAL BREATHING PATTERN. absent: Accessory Muscle Use, Respiratory Distress - GI/Abdominal Exam GI & Abdominal Exam: Distended, Firm. absent: Guarding, Rebound, Rigid, Soft, Tenderness - Extremities Exam Extremities exam: Positive for: pedal edema. Negative for: calf tenderness Additional comments: B/L UE edema Results - Vital Signs Recent Vital Signs: Last Vital Signs Temp 97.7 F 11/16/16 16:30 Pulse 93 H 11/16/16 20:00 Resp 21 11/16/16 13:40 BP 117/95 H 11/16/16 20:00 Pulse Ox 98 11/16/16 20:00 - Labs Result Diagrams: 11/16/16 05:15 11/16/16 05:15 Labs: Laboratory Results - last 24 hr 11/14/16 11/15/16 11/15/16 16:47 19:50 19:50 WBC RBC Hgb Hct MCV MCH MCHC RDW Plt Count MPV Gran % 73.0 H Lymph % (Auto) 17.0 L Hand % (Auto) 9.0 H Eos % (Auto) 1.0 L Baso % (Auto) 0.0 Gran # 20.00 H Lymph # 4.7 H Hand # 2.5 H Eos # 0.3 Baso # 0.00 Corrected WBC (Man) 6.8 Neutrophils % (Manual) 73 H Lymphocytes % (Manual) 17 L Monocytes % (Manual) 9 H Eosinophils % (Manual) 1 Myelocytes % Nucleated RBC % 304 Platelet Evaluation Normal Polychromasia 2+ Hypochromasia Slight Poikilocytosis (manual Slight Anisocytosis (manual) 4+ Macrocytosis (manual) 3+ Sickle Cells Target Cells 3+ Tear Drop Cells 1+ Ovalocytes 2+ Stomatocytes Retic Count PT 32.4 H* INR 3.00 H Factor VIII Activity 404 H pCO2 pO2 HCO3 ABG pH ABG Total CO2 ABG O2 Saturation ABG Base Excess ABG Potassium VBG pH VBG pCO2 VBG HCO3 VBG Total CO2 VBG O2 Sat (Calc) VBG Base Excess VBG Potassium Glucose Lactate FiO2 Sodium Potassium Chloride Carbon Dioxide Anion Gap BUN Creatinine Est GFR ( Amer) Est GFR (Non-Af Amer) POC Glucose (mg/dL) Random Glucose Calcium Phosphorus Magnesium Total Bilirubin AST ALT Alkaline Phosphatase Total Protein Albumin Globulin Albumin/Globulin Ratio Arterial Blood Potassium Venous Blood Potassium Hepatitis A IgM Ab Hep Bs Antigen Hep B Core IgM Ab Hepatitis C Antibody 11/15/16 11/15/16 11/15/16 19:50 19:50 21:56 WBC RBC Hgb Hct MCV MCH MCHC RDW Plt Count MPV Gran % Lymph % (Auto) Hand % (Auto) Eos % (Auto) Baso % (Auto) Gran # Lymph # Hand # Eos # Baso # Corrected WBC (Man) Neutrophils % (Manual) Lymphocytes % (Manual) Monocytes % (Manual) Eosinophils % (Manual) Myelocytes % Nucleated RBC % Platelet Evaluation Polychromasia Hypochromasia Poikilocytosis (manual Anisocytosis (manual) Macrocytosis (manual) Sickle Cells Target Cells Tear Drop Cells Ovalocytes Stomatocytes Retic Count PT INR Factor VIII Activity pCO2 pO2 HCO3 ABG pH ABG Total CO2 ABG O2 Saturation ABG Base Excess ABG Potassium VBG pH VBG pCO2 VBG HCO3 VBG Total CO2 VBG O2 Sat (Calc) VBG Base Excess VBG Potassium Glucose Lactate FiO2 Sodium 136 Potassium 5.3 H Chloride 100 Carbon Dioxide 22 Anion Gap 19 BUN 32 H Creatinine 2.1 H Est GFR ( Amer) 32 Est GFR (Non-Af Amer) 26 POC Glucose (mg/dL) 96 Random Glucose 87 Calcium 8.2 L Phosphorus Magnesium Total Bilirubin 23.9 H* AST 2178 H ALT 337 H Alkaline Phosphatase 206 H Total Protein 7.9 Albumin 3.0 Globulin 4.9 Albumin/Globulin Ratio 0.6 L Arterial Blood Potassium Venous Blood Potassium Hepatitis A IgM Ab Negative Hep Bs Antigen Negative Hep B Core IgM Ab Negative Hepatitis C Antibody Negative 11/16/16 11/16/16 11/16/16 05:15 05:15 07:46 WBC 32.3 H* RBC 2.01 L Hgb 7.5 L Hct 21.2 L MCV 105.5 H MCH 37.3 H MCHC 35.4 RDW 25.5 H Plt Count 127 MPV 10.9 Gran % Lymph % (Auto) Hand % (Auto) Eos % (Auto) Baso % (Auto) 0.4 Gran # Lymph # Hand # Eos # Baso # 0.14 Corrected WBC (Man) 19.0 H Neutrophils % (Manual) 65 Lymphocytes % (Manual) 25 Monocytes % (Manual) 7 H Eosinophils % (Manual) Myelocytes % 3 Nucleated RBC % 70 Platelet Evaluation Low Polychromasia Slight Hypochromasia 2+ Poikilocytosis (manual 1+ Anisocytosis (manual) 2+ Macrocytosis (manual) 2+ Sickle Cells 1+ Target Cells Tear Drop Cells Slight Ovalocytes Slight Stomatocytes Slight Retic Count 18.68 H* PT INR Factor VIII Activity pCO2 pO2 HCO3 ABG pH ABG Total CO2 ABG O2 Saturation ABG Base Excess ABG Potassium VBG pH VBG pCO2 VBG HCO3 VBG Total CO2 VBG O2 Sat (Calc) VBG Base Excess VBG Potassium Glucose Lactate FiO2 Sodium 135 Potassium 5.6 H* Chloride 99 Carbon Dioxide 17 L Anion Gap 25 H BUN 33 H Creatinine 2.2 H Est GFR ( Amer) 30 Est GFR (Non-Af Amer) 25 POC Glucose (mg/dL) 55 L Random Glucose 58 L Calcium 8.0 L Phosphorus 6.7 H Magnesium 1.6 L Total Bilirubin 24.7 H* AST 2386 H ALT 352 H Alkaline Phosphatase 221 H Total Protein 8.0 Albumin 3.0 Globulin 5.0 Albumin/Globulin Ratio 0.6 L Arterial Blood Potassium Venous Blood Potassium Hepatitis A IgM Ab Hep Bs Antigen Hep B Core IgM Ab Hepatitis C Antibody 11/16/16 11/16/16 11/16/16 11:33 13:56 16:47 WBC RBC Hgb Hct MCV MCH MCHC RDW Plt Count MPV Gran % Lymph % (Auto) Hand % (Auto) Eos % (Auto) Baso % (Auto) Gran # Lymph # Hand # Eos # Baso # Corrected WBC (Man) Neutrophils % (Manual) Lymphocytes % (Manual) Monocytes % (Manual) Eosinophils % (Manual) Myelocytes % Nucleated RBC % Platelet Evaluation Polychromasia Hypochromasia Poikilocytosis (manual Anisocytosis (manual) Macrocytosis (manual) Sickle Cells Target Cells Tear Drop Cells Ovalocytes Stomatocytes Retic Count PT INR Factor VIII Activity pCO2 33 L pO2 87.0 HCO3 13.5 L ABG pH 7.22 L ABG Total CO2 14.5 L ABG O2 Saturation 100.1 H ABG Base Excess -13.1 L ABG Potassium 5.9 H VBG pH VBG pCO2 VBG HCO3 VBG Total CO2 VBG O2 Sat (Calc) VBG Base Excess VBG Potassium Glucose 63 L Lactate 8.2 H* FiO2 21.0 Sodium 131.0 L Potassium Chloride 102.0 Carbon Dioxide Anion Gap BUN Creatinine Est GFR ( Amer) Est GFR (Non-Af Amer) POC Glucose (mg/dL) 151 H 57 L Random Glucose Calcium Phosphorus Magnesium Total Bilirubin AST ALT Alkaline Phosphatase Total Protein Albumin Globulin Albumin/Globulin Ratio Arterial Blood Potassium 5.9 H Venous Blood Potassium Hepatitis A IgM Ab Hep Bs Antigen Hep B Core IgM Ab Hepatitis C Antibody 11/16/16 11/16/16 17:35 18:45 WBC RBC Hgb Hct MCV MCH MCHC RDW Plt Count MPV Gran % Lymph % (Auto) Hand % (Auto) Eos % (Auto) Baso % (Auto) Gran # Lymph # Hand # Eos # Baso # Corrected WBC (Man) Neutrophils % (Manual) Lymphocytes % (Manual) Monocytes % (Manual) Eosinophils % (Manual) Myelocytes % Nucleated RBC % Platelet Evaluation Polychromasia Hypochromasia Poikilocytosis (manual Anisocytosis (manual) Macrocytosis (manual) Sickle Cells Target Cells Tear Drop Cells Ovalocytes Stomatocytes Retic Count PT INR Factor VIII Activity pCO2 36 pO2 72 H 39.0 L* HCO3 12.5 L ABG pH 7.15 L* ABG Total CO2 13.6 L ABG O2 Saturation 67.8 L ABG Base Excess -15.5 L ABG Potassium 5.9 H VBG pH 7.13 L* VBG pCO2 39.0 L VBG HCO3 13.0 L VBG Total CO2 14.2 L VBG O2 Sat (Calc) 97.9 H VBG Base Excess -15.5 L VBG Potassium 5.8 H Glucose 133 H 100 Lactate 10.1 H* 9.7 H* FiO2 21.0 28.0 Sodium 131.0 L 132.0 Potassium Chloride 101.0 99.0 Carbon Dioxide Anion Gap BUN Creatinine Est GFR ( Amer) Est GFR (Non-Af Amer) POC Glucose (mg/dL) Random Glucose Calcium Phosphorus Magnesium Total Bilirubin AST ALT Alkaline Phosphatase Total Protein Albumin Globulin Albumin/Globulin Ratio Arterial Blood Potassium 5.9 H Venous Blood Potassium 5.8 H Hepatitis A IgM Ab Hep Bs Antigen Hep B Core IgM Ab Hepatitis C Antibody Assessment & Plan - Assessment and Plan (Free Text) Assessment: 36F in multi-organ failure 2/2 sickle cell crisis in need of dialysis catheter for RBC exchange -INR 3.0 -Pt to receive 2U FFP and vit K, will repeat INR and plan for dialysis catheter placement pending INR results -consent for procedure obtained from mother over phone -case d/w Dr. Prateek Granados PGY3
--- NOTE | 2016-11-16 20:35 | CP.PCM.PN ---
"<Landon Melchor - Last Filed: 11/16/16 21:42> Subjective - Date & Time of Evaluation Date of Evaluation: 11/16/16 Time of Evaluation: 20:34 - Subjective Subjective: Patient seen and examined at bedside. The patient is still reporting the chest pain and this morning was hypoglycemic. The patient was more lethargic and no easy abusable. The patient remainder of ROS was unobtainable due to her clinical condition. Objective - Vital Signs/Intake and Output Vital Signs (last 24 hours): Temp Pulse Resp BP Pulse Ox 97.7 F 93 H 21 117/95 H 98 11/16/16 16:30 11/16/16 20:00 11/16/16 13:40 11/16/16 20:00 11/16/16 20:00 Intake and Output: 11/16/16 11/17/16 18:59 06:59 Intake Total 1750 Output Total 200 Balance 1550 - Medications Medications: Current Medications Albuterol/Ipratropium (Duoneb 3 Mg/0.5 Mg (3 Ml) Ud) 3 ml IH [id number] ARLETTE Budesonide (Pulmicort Respules) 0.5 mg IH [id number] ARLETTE Ergocalciferol (Drisdol 50,000 Intl Units Cap) 1 cap PO QWK [facility] Last Admin: 11/12/16 09:20 Dose: 1 cap Folic Acid (Folic Acid) 1 mg PO DAILY [facility] Last Admin: 11/16/16 09:01 Dose: 1 mg Furosemide (Lasix) 40 mg IVP DAILY [facility] Last Admin: 11/16/16 09:00 Dose: 40 mg Heparin Sodium (Porcine) (Heparin) 5,000 units SC Q12 ARLETTE PRN Reason: Protocol Last Admin: 11/16/16 09:01 Dose: 5,000 units Hydromorphone HCl (Dilaudid) 1 mg IVP Q3H PRN PRN Reason: Pain, severe (8-10) Last Admin: 11/16/16 17:15 Dose: 1 mg Hydroxyurea (Hydrea) 500 mg PO DAILY [facility] Last Admin: 11/16/16 17:22 Dose: 500 mg Vancomycin HCl (Vancomycin 1gm) 1 gm in 250 mls @ 167 mls/hr IVPB DAILY [facility] PRN Reason: Protocol Last Admin: 11/16/16 14:33 Dose: Not Given Cefepime HCl (Maxipime 1gm) 1 gm in 100 mls @ 100 mls/hr IVPB Q24H ARLETTE PRN Reason: Protocol Last Admin: 11/16/16 14:35 Dose: 100 mls/hr Sodium Bicarbonate 75 meq/ (Sodium Chloride) 1,075 mls @ 125 mls/hr IV .Q8H36M ARLETTE Dextrose (Dextrose 10% In Water) 500 mls @ 20 mls/hr IV .Q24H [facility] Lactic Acid (Lac-Hydrin 12% Cream (140 G)) 0 ea TOP DAILY PRN PRN Reason: Wound Lactulose (Enulose) 20 gm PO BID [facility] Last Admin: 11/16/16 12:30 Dose: Not Given Multivitamins/Minerals (Therapeutic-M Tab) 1 tab PO DAILY [facility] Last Admin: 11/16/16 09:01 Dose: 1 tab Non-Formulary Medication (Mometasone [Asmanex Twisthaler 110 Mcg]) 100 mcg IH BID [facility] Last Admin: 11/15/16 21:20 Dose: Not Given Pantoprazole Sodium (Protonix Ec Tab) 40 mg PO 0600 [facility] Last Admin: 11/16/16 05:45 Dose: 40 mg Tramadol HCl (Ultram) 50 mg PO Q6 PRN PRN Reason: Pain, moderate (4-7) Last Admin: 11/16/16 09:01 Dose: 50 mg Vitamin A (Vitamin A & D Oint Ud Foilpak) 1 ea TOP Q8 PRN PRN Reason: Dry skin - Labs Labs: 11/16/16 05:15 11/16/16 05:15 PT 32.4 Seconds (9.9-11.8) H* 11/15/16 19:50 INR 3.00 (0.93-1.08) H 11/15/16 19:50 - Head Exam Head Exam: ATRAUMATIC, NORMAL INSPECTION, NORMOCEPHALIC - Eye Exam Eye Exam: EOMI, Normal appearance, PERRL Pupil Exam: NORMAL ACCOMODATION - ENT Exam ENT Exam: Mucous Membranes Moist - Neck Exam Neck Exam: Normal Inspection - Respiratory Exam Respiratory Exam: Decreased Breath Sounds, Clear to Ausculation Bilateral - Cardiovascular Exam Cardiovascular Exam: REGULAR RHYTHM, +S1, +S2. absent: Gallop, Rubs - GI/Abdominal Exam GI & Abdominal Exam: Soft, Normal Bowel Sounds. absent: Tenderness - Extremities Exam Extremities Exam: Joint Swelling, Tenderness - Back Exam Back Exam: NORMAL INSPECTION. absent: paraspinal tenderness - Neurological Exam Neurological Exam: Alert, Awake - Psychiatric Exam Psychiatric exam: Normal Affect, Normal Mood - Skin Skin Exam: Dry, Intact Assessment and Plan - Assessment and Plan (Free Text) Assessment: 36 year old AA female with past medical history of sickle cell disease, Bipolar disorder, cerebral palsy, Asthma, and CHF presents to the emergency department complaining of abdominal pain located in the RUQ. She states the pain started today, and describes it as a constant pain. She also states she has been vomiting up bile and has been nauseous. She is being worked up for abdominal pain secondary to her sickle cell disease. Plan: Generalized pain likely 2/2 to sickle cell crisis - Hgb 7.1 Transfuse if < 7 - Reticulocyte decreased to 18.6 - Hydroxyurea - Dilauded 0.5 Q6 || Ultram 50 Q6 - Folic acid and MVI - Heme consulted Recs appreciated - Abdominal US was negative and Duplex US pending, Autoimmune workup, Factors 2( 28), 5(11), 8(404) per GI pending -Deferoxamine started by Heme -CBC with Diff -LDH 3656 Shock Liver -AST-2077, ALT-307, Alk Phos 178 -likely 2/2 to CHF vs sickle cell crisis -Abdominal US showed patent portal vein with hepatopetal flow (study was limited ) -GI consulted. Discussion of liver transplant due to significantly elevated MELD score. Awaiting placement [facility] -Ceruloplasmin/Lipase WNL. -Alpha Fetoprotein WNL MELITON (prerenal vs vasoocclusive crisis or mixed) -Nephro consulted Rec's appreciated. -Transferred to ICU UA showed Brown cloudy urine, 100 Protein, 100 Glucose, Trace Ketones, Positive nitrates, large bilirubin, 4.0 urobilinogen, negative Leuk Es. Urine Osmolality, random creatinine, random sodium an potassium WNL. CHF (Acute on Chronic) -BNP increased to 2077 -Patient hypotensive for >24 hours -CXR showed pulmonary congestion -transferred to ICU -Consider repeat Echo. -Cardiology consulted - EF of 39.7 from June 2016 -Lung sounds are clear -Continue Strict Is and Os -Continue Daily weights Bacteremia -Gram positive Cocci found in blood cultures -Continue Vancomycin and Zosyn -ID rec's appreciated. -Urine cultures negative. -Procal normal Electrolye imbalance -Sodium polysterene given for Hyperkalemia. -Will closely monitor and replete as needed. Will trend with serial CMP's. History of Bipolar Disorder -continue home medications -Psych Consulted (Dr. Odonnell) GI/DVT prophylaxis -pantoprazole started -SCD <Jena Ruff MD - Last Filed: 11/17/16 11:16> Objective - Vital Signs/Intake and Output Vital Signs (last 24 hours): Temp Pulse Resp BP Pulse Ox 97.6 F 99 H 15 120/73 100 11/17/16 04:00 11/17/16 06:07 11/16/16 21:08 11/17/16 06:00 11/17/16 02:00 Intake and Output: 11/17/16 11/17/16 06:59 18:59 Intake Total 2511 Output Total 250 Balance 2261 - Medications Medications: Current Medications Albuterol/Ipratropium (Duoneb 3 Mg/0.5 Mg (3 Ml) Ud) 3 ml IH [id number] [facility] Last Admin: 11/17/16 08:00 Dose: 3 ml Budesonide (Pulmicort Respules) 0.5 mg IH [id number] [facility] Last Admin: 11/17/16 08:00 Dose: 0.5 mg Ergocalciferol (Drisdol 50,000 Intl Units Cap) 1 cap PO QWK [facility] Last Admin: 11/12/16 09:20 Dose: 1 cap Folic Acid (Folic Acid) 1 mg PO DAILY [facility] Last Admin: 11/16/16 09:01 Dose: 1 mg Furosemide (Lasix) 40 mg IVP DAILY [facility] Last Admin: 11/16/16 09:00 Dose: 40 mg Heparin Sodium (Porcine) (Heparin) 5,000 units SC Q12 ARLETTE PRN Reason: Protocol Last Admin: 11/16/16 21:44 Dose: Not Given Hydromorphone HCl (Dilaudid) 1 mg IVP Q3H PRN PRN Reason: Pain, severe (8-10) Last Admin: 11/17/16 04:29 Dose: 1 mg Hydroxyurea (Hydrea) 500 mg PO DAILY [facility] Last Admin: 11/16/16 17:22 Dose: 500 mg Vancomycin HCl (Vancomycin 1gm) 1 gm in 250 mls @ 167 mls/hr IVPB DAILY ARLETTE PRN Reason: Protocol Last Admin: 11/16/16 14:33 Dose: Not Given Cefepime HCl (Maxipime 1gm) 1 gm in 100 mls @ 100 mls/hr IVPB Q24H ARLETTE PRN Reason: Protocol Last Admin: 11/16/16 14:35 Dose: 100 mls/hr Dextrose (Dextrose 10% In Water) 500 mls @ 20 mls/hr IV .Q24H [facility] Last Admin: 11/16/16 19:30 Dose: 20 mls/hr Sodium Bicarbonate 150 meq/ (Dextrose) 1,150 mls @ 125 mls/hr IV .Q9H12M [facility] Last Admin: 11/16/16 23:51 Dose: 125 mls/hr Lactic Acid (Lac-Hydrin 12% Cream (140 G)) 0 ea TOP DAILY PRN PRN Reason: Wound Lactulose (Enulose) 20 gm PO BID [facility] Last Admin: 11/16/16 12:30 Dose: Not Given Multivitamins/Minerals (Therapeutic-M Tab) 1 tab PO DAILY [facility] Last Admin: 11/16/16 09:01 Dose: 1 tab Non-Formulary Medication (Mometasone [Asmanex Twisthaler 110 Mcg]) 100 mcg IH BID [facility] Last Admin: 11/15/16 21:20 Dose: Not Given Pantoprazole Sodium (Protonix Ec Tab) 40 mg PO 0600 [facility] Last Admin: 11/17/16 05:13 Dose: Not Given Tramadol HCl (Ultram) 50 mg PO Q6 PRN PRN Reason: Pain, moderate (4-7) Last Admin: 11/16/16 09:01 Dose: 50 mg Vitamin A (Vitamin A & D Oint Ud Foilpak) 1 ea TOP Q8 PRN PRN Reason: Dry skin - Labs Labs: 11/17/16 06:30 11/17/16 06:30 PT 22.3 Seconds (9.9-11.8) H 11/17/16 06:30 INR 2.06 (0.93-1.08) H 11/17/16 06:30 Attending/Attestation - Attestation I have personally seen and examined this patient.: Yes I have fully participated in the care of the patient.: Yes I have reviewed all pertinent clinical information, including history, physical exam and plan: Yes Notes (Text): 11/17/16 11:03 Patient was seen and examined with medical surgery nurse. 35 year old female with PMH of sickle cell disease, hypertension, asthma, cardiomyopathy, EF 39% ,cerebral palsy, and bipolar/depression , had multiple admission for recurrent UTI and sickle cell crisis, has chronically elevated transaminase was admitted with sickle cell crisis, also has underlying sepsis , Patient was also hypotensive and developed worsening liver function , AST/ALT are getting worse, AST 2383,[place] 24.7,,ALT 352 .Patient is also treated for iron overload .She is accepted by [facility] and is awaiting ICU bed. Patient renal failures are also getting worse.Urine out is poor, creatinin has increased to 2.2, also having episode of hypoglycemia.may need hemodialysis. WBC is also elevated on IV antibiotics as per ID. gi/Hematology/Nephrology are following, may also need exchange transfusion. Prognosis is guarded. 11/17/16 11:12"
--- NOTE | 2016-11-16 20:53 | PN ---
SUBJECTIVE: The patient is a 36-year-old female with past medical history of sickle cell disease, bipolar disorder, CHF with systolic dysfunction, admitted with sickle cell crisis, acute liver failure, nephrology following for acute renal failure. The patient is still reporting a lot of pain, did tolerate breakfast this morning, otherwise has been lethargic, getting Dilaudid for pain. VITAL SIGNS: This morning, blood pressure 132/85, heart rate 98, respirations 11, temperature 97.5, O2 saturation 97% on 2L O2 via nasal cannula. PHYSICAL EXAMINATION: GENERAL: In distress, not able to converse due to distress. HEENT: Pronounced icterus. Moist mucous membranes. RESPIRATORY: Rales on left, appears tachypneic at times. HEART: Muffled heart sounds. ABDOMEN: Tender to mild palpation. EXTREMITIES: 2+ bilateral lower leg edema. SKIN: Warm, no cyanosis. The lower extremities cold to touch. LABORATORY DATA: This morning, CBC: WBC 32.3, hemoglobin 7.5, hematocrit 21.2, platelets 127. Chemistry panel: Sodium 135, potassium 5.6, chloride 99, bicarb 17, BUN 33, creatinine 2.2, glucose 58, calcium 8.0, phosphorus 6.7, magnesium 1.6. Total bilirubin 24.7, albumin 3.0. ABG done this afternoon, pH 7.22, pCO2 33, CO2 87, lactate 8.2. Urine microscopy directly observed numerous granular casts, some coarse granular, some just bile stained, numerous red blood cells that are dysmorphic (but not classic for glomerulonephritis) ASSESSMENT AND PLAN: 1. Acute renal failure, borderline oliguria (615 mL urine output for yesterday) in the setting of sickle cell crisis with multiorgan dysfunction; the patient has been receiving IV fluids, although may still have an element of volume depletion in the setting of possible sepsis, however has had adequate perfusing pressures, and therefore, I do not think she is volume depleted at this point; progression to acute tubular necrosis is a likely possibility; however in the setting of liver dysfunction with hyperbilirubinemia, urine sediment showing granular casts is not definitive for acute tubular necrosis; hepatorenal syndrome is also in the differential, however blood pressures being normal do not support this; serum creatinine has remained relatively stable but this might be dilution also to some extent, otherwise with mild hyperkalemia in the setting of sickle cell crisis that is likely hemolysis. We will continue IV fluids for now, changing IV fluids to half normal saline with 75 mEq of sodium bicarb running at 125 mL per hour to the keep the patient's volume replete as well as correct for metabolic acidosis. 2. Sickle cell crisis, question of whether the patient would benefit from red blood cells exchange at this point particularly with multiorgan dysfunction, however, there is a concern for worsening iron overload and therefore hematology service not favoring this approach at this time; should continue to keep this as an option however the patient's overall status is worsening. 3. Hyperkalemia secondary to both acute renal failure as well as the component of hemolysis, the patient received dose of Kayexalate earlier today, will benefit from bicarb replacement as well. 4. Systemic inflammatory response syndrome/sepsis, the patient with worsening leukocytosis, repeat blood cultures has been negative. The patient currently on cefepime 1 g daily and vancomycin 1 g daily. Cefepime correctly dosed for creatinine clearance of above 30 mL per minute. Need to get vancomycin trough before fourth dose. Addendum: Patient becoming more acidotic with increasing lactic acidosis; clinically appears to be deteriorating; discussed case this evening with fabrication mig welder who in conferring with GI team is ordering RBC exchange in the setting of multi- organ dysfunction; will have surgical team place dialysis catheter (for the RBC exchange procedure) after correcting coagulopathy with FFP; As hyperkalemia, metabolic acidosis and volume overload are worsening in a setting of oliguria, will plan to initiate HD immediately after the RBC exchange. Critical care time assessing patient and conferring with multiple specialties > 35 minutes. Rai Perez MD [facility]
[2016-11-16 22:57] LABS: VENOUS BLOOD GAS BASE EXCESS -14.6 mmol/L (0.0-2.0); VENOUS BLOOD PH 7.21 (7.32-7.43)
[2016-11-16 23:07] LABS: INR 2.3 (0.93-1.08)
[2016-11-16] MEDS: Sodium Bicarbonate 8.4% 150 MEQ in Dextrose 5% In Water 1,000 ML IV SCH (23:51)
[2016-11-17] MEDS: Albuterol-Ipratrop 3 mg / 0.5 (3 ml) UD IH SCH ×4 (01:29→19:34)
[2016-11-17] MEDS: HYDROmorphone 0.5 mg/0.5 ml ISec IVP PRN (04:29)
[2016-11-17] MEDS: Pantoprazole 40 mg EC Tab PO SCH (05:13)
[2016-11-17 07:00] LABS: INR 2.06 (0.93-1.08)
[2016-11-17 07:30] LABS: HEMATOCRIT 16.9 % (36.0-48.0); MEAN CELL VOLUME 105.6 fl (80.0-105.0); MEAN CORPUSCULAR HEMOGLOBIN 37.5 pg (25.0-35.0); MEAN CORPUSCULAR HGB CONC 35.5 g/dl (31.0-37.0); MEAN PLATELET VOLUME 10.6 fl (7.0-11.0); PLATELET COUNT 119 10^3/uL (120.0-450.0); RED CELL DISTRIBUTION WIDTH 25.9 % (11.5-14.5)
--- NOTE | 2016-11-17 07:30 | CP.PCM.PN ---
Subjective - Date & Time of Evaluation Date of Evaluation: 11/17/16 Time of Evaluation: 07:28 - Subjective Subjective: General Surgery Progress Note for Dr. Chandra Patient seen and examined at bedside. No acute event overnight. Patient s/p transfusion of 2 units FFP today (6 total). Patient sedated. Objective - Vital Signs/Intake and Output Vital Signs (last 24 hours): Temp Pulse Resp BP Pulse Ox 97.6 F 99 H 15 120/73 100 11/17/16 04:00 11/17/16 06:07 11/16/16 21:08 11/17/16 06:00 11/17/16 02:00 Intake and Output: 11/17/16 11/17/16 06:59 18:59 Intake Total 2511 Output Total 250 Balance 2261 - Medications Medications: Current Medications Albuterol/Ipratropium (Duoneb 3 Mg/0.5 Mg (3 Ml) Ud) 3 ml IH [id number] [facility] Last Admin: 11/17/16 01:29 Dose: 3 ml Budesonide (Pulmicort Respules) 0.5 mg IH [id number] [facility] Last Admin: 11/16/16 20:00 Dose: 0.5 mg Ergocalciferol (Drisdol 50,000 Intl Units Cap) 1 cap PO QWK [facility] Last Admin: 11/12/16 09:20 Dose: 1 cap Folic Acid (Folic Acid) 1 mg PO DAILY [facility] Last Admin: 11/16/16 09:01 Dose: 1 mg Furosemide (Lasix) 40 mg IVP DAILY [facility] Last Admin: 11/16/16 09:00 Dose: 40 mg Heparin Sodium (Porcine) (Heparin) 5,000 units SC Q12 [facility] PRN Reason: Protocol Last Admin: 11/16/16 21:44 Dose: Not Given Hydromorphone HCl (Dilaudid) 1 mg IVP Q3H PRN PRN Reason: Pain, severe (8-10) Last Admin: 11/17/16 04:29 Dose: 1 mg Hydroxyurea (Hydrea) 500 mg PO DAILY [facility] Last Admin: 11/16/16 17:22 Dose: 500 mg Vancomycin HCl (Vancomycin 1gm) 1 gm in 250 mls @ 167 mls/hr IVPB DAILY [facility] PRN Reason: Protocol Last Admin: 11/16/16 14:33 Dose: Not Given Cefepime HCl (Maxipime 1gm) 1 gm in 100 mls @ 100 mls/hr IVPB Q24H [facility] PRN Reason: Protocol Last Admin: 11/16/16 14:35 Dose: 100 mls/hr Dextrose (Dextrose 10% In Water) 500 mls @ 20 mls/hr IV .Q24H [facility] Last Admin: 11/16/16 19:30 Dose: 20 mls/hr Sodium Bicarbonate 150 meq/ (Dextrose) 1,150 mls @ 125 mls/hr IV .Q9H12M [facility] Last Admin: 11/16/16 23:51 Dose: 125 mls/hr Lactic Acid (Lac-Hydrin 12% Cream (140 G)) 0 ea TOP DAILY PRN PRN Reason: Wound Lactulose (Enulose) 20 gm PO BID [facility] Last Admin: 11/16/16 12:30 Dose: Not Given Multivitamins/Minerals (Therapeutic-M Tab) 1 tab PO DAILY [facility] Last Admin: 11/16/16 09:01 Dose: 1 tab Non-Formulary Medication (Mometasone [Asmanex Twisthaler 110 Mcg]) 100 mcg IH BID [facility] Last Admin: 11/15/16 21:20 Dose: Not Given Pantoprazole Sodium (Protonix Ec Tab) 40 mg PO 0600 [facility] Last Admin: 11/17/16 05:13 Dose: Not Given Tramadol HCl (Ultram) 50 mg PO Q6 PRN PRN Reason: Pain, moderate (4-7) Last Admin: 11/16/16 09:01 Dose: 50 mg Vitamin A (Vitamin A & D Oint Ud Foilpak) 1 ea TOP Q8 PRN PRN Reason: Dry skin - Labs Labs: 11/16/16 05:15 11/16/16 05:15 PT 22.3 Seconds (9.9-11.8) H 11/17/16 06:30 INR 2.06 (0.93-1.08) H 11/17/16 06:30 - Constitutional Appears: Toxic, Chronically Ill - Head Exam Head Exam: ATRAUMATIC, NORMOCEPHALIC - Eye Exam Eye Exam: Scleral icterus - ENT Exam ENT Exam: Mucous Membranes Moist - Respiratory Exam Additional comments: labored breathing - Cardiovascular Exam Cardiovascular Exam: REGULAR RHYTHM - GI/Abdominal Exam GI & Abdominal Exam: Distended, Firm - Extremities Exam Extremities Exam: Pedal Edema - Neurological Exam Neurological Exam: Altered - Psychiatric Exam Psychiatric exam: Flat Affect - Skin Skin Exam: Dry, Intact Assessment and Plan - Assessment and Plan (Free Text) Plan: 36 F in multi-organ failure secondary to sickle cell crisis in need of dialysis catheter for RBC exchange -INR 2.06 -dialysis catheter placement likely today -consent obtained from mother -Will DW Dr. Prateek Benoit PGY1
[2016-11-17 07:43] LABS: ALB/GLOB RATIO 0.8 (1.1-1.8); CALCIUM 8.1 mg/dL (8.4-10.5); MAGNESIUM 1.7 mg/dL (1.7-2.2); PHOSPHOROUS 7.7 mg/dL (2.5-4.5); TOTAL PROTEIN 8.5 g/dL (5.8-8.3)
[2016-11-17 07:47] LABS: ARTERIAL BLOOD GAS HCO3 11.3 mmol/L (21-28); ARTERIAL BLOOD GAS O2 CAPACITY 7.8 mL/dl (16-24); ARTERIAL BLOOD GAS O2 CONTENT 7.9 ML/dl (15-23); ARTERIAL BLOOD GAS PH 7.23 (7.35-7.45); ARTERIAL BLOOD HGB O2 SAT 93.3 % (95.0-98.0); CARBOXYHEMOGLOBIN 5.5 % (0.5-1.5); HHB -0.8 % (0-5); METHEMOGLOBIN 1.9 % (0.0-3.0)
[2016-11-17 07:59] LABS: ANISOCYTOSIS 2+; BAND 1 % (0-2); CORRECTED WBC 7.8 K/mm3 (4.5-11.0); MYELOCYTE 6 %; NEUTROPHIL 74 % (50.0-70.0); NUCLEATED RED BLOOD CELL 441 %; PLATELET ESTIMATE LOW (NORMAL); POIKILOCYTOSIS 2+
[2016-11-17] MEDS: Budesonide 0.5 mg/2 ml Inhal Susp UD IH SCH ×2 (08:00→19:35)
[2016-11-17] MEDS: Sodium Bicarbonate 8.4% 150 MEQ in Dextrose 5% In Water 1,000 ML IV SCH ×2 (08:00→18:00)
--- NOTE | 2016-11-17 08:17 | CP.PCM.PN ---
Subjective - Date & Time of Evaluation Date of Evaluation: 11/17/16 Time of Evaluation: 08:08 - Subjective Subjective: Patient seen and examined. She remains lethargic appearing in critical care unit. She continues to endorse diffuse abdominal and upper/lower extremity discomfort, though is not able to fully participate in detailed conversation. No reported nausea, vomiting, fever/chills. Tolerating scant amounts of PO liquids. Review of vitals from this morning shows tachycardia. 12 point review of systems performed, negative aside from mentioned above. Objective - Vital Signs/Intake and Output Vital Signs (last 24 hours): Temp Pulse Resp BP Pulse Ox 97.6 F 99 H 15 120/73 100 11/17/16 04:00 11/17/16 06:07 11/16/16 21:08 11/17/16 06:00 11/17/16 02:00 Intake and Output: 11/17/16 11/17/16 06:59 18:59 Intake Total 2511 Output Total 250 Balance 2261 - Medications Medications: Current Medications Albuterol/Ipratropium (Duoneb 3 Mg/0.5 Mg (3 Ml) Ud) 3 ml IH [id number] [facility] Last Admin: 11/17/16 08:00 Dose: 3 ml Budesonide (Pulmicort Respules) 0.5 mg IH [id number] [facility] Last Admin: 11/17/16 08:00 Dose: 0.5 mg Ergocalciferol (Drisdol 50,000 Intl Units Cap) 1 cap PO QWK [facility] Last Admin: 11/12/16 09:20 Dose: 1 cap Folic Acid (Folic Acid) 1 mg PO DAILY [facility] Last Admin: 11/16/16 09:01 Dose: 1 mg Furosemide (Lasix) 40 mg IVP DAILY [facility] Last Admin: 11/16/16 09:00 Dose: 40 mg Heparin Sodium (Porcine) (Heparin) 5,000 units SC Q12 [facility] PRN Reason: Protocol Last Admin: 11/16/16 21:44 Dose: Not Given Hydromorphone HCl (Dilaudid) 1 mg IVP Q3H PRN PRN Reason: Pain, severe (8-10) Last Admin: 11/17/16 04:29 Dose: 1 mg Hydroxyurea (Hydrea) 500 mg PO DAILY [facility] Last Admin: 11/16/16 17:22 Dose: 500 mg Vancomycin HCl (Vancomycin 1gm) 1 gm in 250 mls @ 167 mls/hr IVPB DAILY [facility] PRN Reason: Protocol Last Admin: 11/16/16 14:33 Dose: Not Given Cefepime HCl (Maxipime 1gm) 1 gm in 100 mls @ 100 mls/hr IVPB Q24H [facility] PRN Reason: Protocol Last Admin: 11/16/16 14:35 Dose: 100 mls/hr Dextrose (Dextrose 10% In Water) 500 mls @ 20 mls/hr IV .Q24H [facility] Last Admin: 11/16/16 19:30 Dose: 20 mls/hr Sodium Bicarbonate 150 meq/ (Dextrose) 1,150 mls @ 125 mls/hr IV .Q9H12M [facility] Last Admin: 11/16/16 23:51 Dose: 125 mls/hr Lactic Acid (Lac-Hydrin 12% Cream (140 G)) 0 ea TOP DAILY PRN PRN Reason: Wound Lactulose (Enulose) 20 gm PO BID [facility] Last Admin: 11/16/16 12:30 Dose: Not Given Multivitamins/Minerals (Therapeutic-M Tab) 1 tab PO DAILY [facility] Last Admin: 11/16/16 09:01 Dose: 1 tab Non-Formulary Medication (Mometasone [Asmanex Twisthaler 110 Mcg]) 100 mcg IH BID [facility] Last Admin: 11/15/16 21:20 Dose: Not Given Pantoprazole Sodium (Protonix Ec Tab) 40 mg PO 0600 [facility] Last Admin: 11/17/16 05:13 Dose: Not Given Tramadol HCl (Ultram) 50 mg PO Q6 PRN PRN Reason: Pain, moderate (4-7) Last Admin: 11/16/16 09:01 Dose: 50 mg Vitamin A (Vitamin A & D Oint Ud Foilpak) 1 ea TOP Q8 PRN PRN Reason: Dry skin - Labs Labs: 11/17/16 06:30 11/16/16 05:15 PT 22.3 Seconds (9.9-11.8) H 11/17/16 06:30 INR 2.06 (0.93-1.08) H 11/17/16 06:30 - Constitutional Appears: In Acute Distress, Chronically Ill - Head Exam Head Exam: NORMAL INSPECTION - Eye Exam Eye Exam: EOMI, Scleral icterus - ENT Exam ENT Exam: Mucous Membranes Dry - Respiratory Exam Respiratory Exam: Rhonchi - Cardiovascular Exam Cardiovascular Exam: +S1, +S2 - GI/Abdominal Exam GI & Abdominal Exam: Soft, Tenderness, Normal Bowel Sounds Additional comments: generalized tenderness to palpation, no rebound/guarding - Extremities Exam Extremities Exam: Pedal Edema - Skin Skin Exam: Dry, Intact, Normal Color, Warm Assessment and Plan - Assessment and Plan (Free Text) Assessment: Cirrhosis, secondary hemochromotosis Sickle cell crisis Renal insufficiency Progressive liver failure Cerebral palsy, bipolar disorder Plan: - Liquid diet as tolerated - s/p 4 units FFP given today in preparation for surgical port placement - Continue with antibiotic therapy as per ID - H/H decrease noted, though no overt bleeding present, continue to monitor - Case discussed with hematology Dr. Palacios, plan to initiate plasmapheresis given clinical scenario with acute vasoocclusive crisis - Continue to monitor creatinine and follow up nephrology recommendations - Continue with lactulose BID, titrate so patient has 3 bowel movements daily - Patient becoming more tachypnic and less responsive, will likely require intubation for airway protection, discussed with joiner apprentice - Awaiting bed availability at [facility] for transfer to liver transplant service
[2016-11-17 08:53] LABS: BILIRUBIN,TOTAL 28.1 mg/dL (0.2-1.3); POTASSIUM 5.6 mmol/L (3.6-5.0)
--- NOTE | 2016-11-17 09:03 | RAD ---
HISTORY: CHF COMPARISON: 11/16/2016. FINDINGS: The right MediPort terminates at the cavoatrial junction. LUNGS: There are low lung volumes. The lungs are clear. PLEURA: No significant pleural effusion identified, no pneumothorax apparent. CARDIOVASCULAR: Stable. OSSEOUS STRUCTURES: No significant abnormalities. VISUALIZED UPPER ABDOMEN: Normal. OTHER FINDINGS: None. IMPRESSION: No acute findings.
[2016-11-17] MEDS: Vancomycin 1gm in NS 250ml 1 GM/250 ML BAG IVPB SCH (09:30)
--- NOTE | 2016-11-17 10:26 | CP.PCM.PN ---
"<Landon Melchor - Last Filed: 11/17/16 10:33> Subjective - Date & Time of Evaluation Date of Evaluation: 11/17/16 Time of Evaluation: 09:26 - Subjective Subjective: Patient was seen and examined by the bedside. Per the nursing the patient still is still lethargic and reports some discomfort. The patient is expected to undergo exchange therapy today. The patient is also still currently waiting for a bed at the [facility]. Remainder of ROS was unobtainable due to patient's current clinical condition. Objective - Vital Signs/Intake and Output Vital Signs (last 24 hours): Temp Pulse Resp BP Pulse Ox 97.6 F 99 H 15 120/73 100 11/17/16 04:00 11/17/16 06:07 11/16/16 21:08 11/17/16 06:00 11/17/16 02:00 Intake and Output: 11/17/16 11/17/16 06:59 18:59 Intake Total 2511 Output Total 250 Balance 2261 - Medications Medications: Current Medications Albuterol/Ipratropium (Duoneb 3 Mg/0.5 Mg (3 Ml) Ud) 3 ml IH [id number] [facility] Last Admin: 11/17/16 08:00 Dose: 3 ml Budesonide (Pulmicort Respules) 0.5 mg IH [id number] [facility] Last Admin: 11/17/16 08:00 Dose: 0.5 mg Ergocalciferol (Drisdol 50,000 Intl Units Cap) 1 cap PO QWK [facility] Last Admin: 11/12/16 09:20 Dose: 1 cap Folic Acid (Folic Acid) 1 mg PO DAILY [facility] Last Admin: 11/16/16 09:01 Dose: 1 mg Furosemide (Lasix) 40 mg IVP DAILY [facility] Last Admin: 11/16/16 09:00 Dose: 40 mg Heparin Sodium (Porcine) (Heparin) 5,000 units SC Q12 [facility] PRN Reason: Protocol Last Admin: 11/16/16 21:44 Dose: Not Given Hydromorphone HCl (Dilaudid) 1 mg IVP Q3H PRN PRN Reason: Pain, severe (8-10) Last Admin: 11/17/16 04:29 Dose: 1 mg Hydroxyurea (Hydrea) 500 mg PO DAILY [facility] Last Admin: 11/16/16 17:22 Dose: 500 mg Vancomycin HCl (Vancomycin 1gm) 1 gm in 250 mls @ 167 mls/hr IVPB DAILY [facility] PRN Reason: Protocol Last Admin: 11/16/16 14:33 Dose: Not Given Cefepime HCl (Maxipime 1gm) 1 gm in 100 mls @ 100 mls/hr IVPB Q24H [facility] PRN Reason: Protocol Last Admin: 11/16/16 14:35 Dose: 100 mls/hr Dextrose (Dextrose 10% In Water) 500 mls @ 20 mls/hr IV .Q24H [facility] Last Admin: 11/16/16 19:30 Dose: 20 mls/hr Sodium Bicarbonate 150 meq/ (Dextrose) 1,150 mls @ 125 mls/hr IV .Q9H12M [facility] Last Admin: 11/16/16 23:51 Dose: 125 mls/hr Lactic Acid (Lac-Hydrin 12% Cream (140 G)) 0 ea TOP DAILY PRN PRN Reason: Wound Lactulose (Enulose) 20 gm PO BID [facility] Last Admin: 11/16/16 12:30 Dose: Not Given Multivitamins/Minerals (Therapeutic-M Tab) 1 tab PO DAILY [facility] Last Admin: 11/16/16 09:01 Dose: 1 tab Non-Formulary Medication (Mometasone [Asmanex Twisthaler 110 Mcg]) 100 mcg IH BID [facility] Last Admin: 11/15/16 21:20 Dose: Not Given Pantoprazole Sodium (Protonix Ec Tab) 40 mg PO 0600 [facility] Last Admin: 11/17/16 05:13 Dose: Not Given Tramadol HCl (Ultram) 50 mg PO Q6 PRN PRN Reason: Pain, moderate (4-7) Last Admin: 11/16/16 09:01 Dose: 50 mg Vitamin A (Vitamin A & D Oint Ud Foilpak) 1 ea TOP Q8 PRN PRN Reason: Dry skin - Labs Labs: 11/17/16 06:30 11/17/16 06:30 PT 22.3 Seconds (9.9-11.8) H 11/17/16 06:30 INR 2.06 (0.93-1.08) H 11/17/16 06:30 - Constitutional Appears: In Acute Distress, Confused, Chronically Ill - Head Exam Head Exam: ATRAUMATIC, NORMAL INSPECTION, NORMOCEPHALIC - Eye Exam Eye Exam: EOMI, Normal appearance, PERRL. absent: Periorbital tenderness Pupil Exam: NORMAL ACCOMODATION - ENT Exam ENT Exam: Mucous Membranes Moist - Neck Exam Neck Exam: Normal Inspection. absent: Lymphadenopathy, Thyromegaly - Respiratory Exam Respiratory Exam: Clear to Ausculation Bilateral, Rhonchi, NORMAL BREATHING PATTERN - Cardiovascular Exam Cardiovascular Exam: REGULAR RHYTHM, RRR, +S1, +S2. absent: Gallop, Rubs - GI/Abdominal Exam GI & Abdominal Exam: Soft, Normal Bowel Sounds - Extremities Exam Extremities Exam: absent: Normal Inspection - Back Exam Back Exam: NORMAL INSPECTION. absent: paraspinal tenderness - Neurological Exam Neurological Exam: Alert, Awake - Psychiatric Exam Psychiatric exam: Agitated - Skin Skin Exam: Dry Assessment and Plan - Assessment and Plan (Free Text) Assessment: 36 year old AA female with past medical history of sickle cell disease, Bipolar disorder, cerebral palsy, Asthma, and CHF presents to the emergency department complaining of abdominal pain located in the RUQ. She states the pain started today, and describes it as a constant pain. She also states she has been vomiting up bile and has been nauseous. She is being worked up for abdominal pain secondary to her sickle cell disease. Plan: Generalized pain likely 2/2 to sickle cell crisis - Hgb 7.1 Transfuse if < 7 - Reticulocyte decreased to 18.6 - Hydroxyurea - Dilauded 0.5 Q6 || Ultram 50 Q6 - Folic acid and MVI - Heme consulted Recs appreciated - Abdominal US was negative and Duplex US pending, Autoimmune workup, Factors 2( 28), 5(11), 8(404) .GI rec's appreciated. -Deferoxamine started by Heme -CBC with Diff -Repeat CXR . Will f/u with results. -LDH 3656 Shock Liver -AST-2077, ALT-307, Alk Phos 178 -likely 2/2 to CHF vs sickle cell crisis -Abdominal US showed patent portal vein with hepatopetal flow (study was limited ) -GI consulted. Discussion of liver transplant due to significantly elevated MELD score. Awaiting placement [facility] -Ceruloplasmin/Lipase WNL. -Alpha Fetoprotein WNL MELITON (prerenal vs vasoocclusive crisis or mixed) -Nephro consulted Rec's appreciated. -Transferred to ICU UA showed Brown cloudy urine, 100 Protein, 100 Glucose, Trace Ketones, Positive nitrates, large bilirubin, 4.0 urobilinogen, negative Leuk Es. Urine Osmolality, random creatinine, random sodium an potassium WNL. CHF (Acute on Chronic) -BNP increased to 2077 -Patient hypotensive for >24 hours -CXR showed pulmonary congestion -transferred to ICU -Consider repeat Echo. -Cardiology consulted - EF of 39.7 from June 2016 -Lung sounds are clear -Continue Strict Is and Os -Continue Daily weights Bacteremia -Gram positive Cocci found in blood cultures -Continue Vancomycin and Zosyn -ID rec's appreciated. -Urine cultures negative. -Procal normal Electrolye imbalance -Sodium polysterene given for Hyperkalemia. -Will closely monitor and replete as needed. Will trend with serial CMP's. History of Bipolar Disorder -continue home medications -Psych Consulted (Dr. Odonnell) GI/DVT prophylaxis -pantoprazole started -SCD <Elzbieta ANGUIANO,Jena - Last Filed: 11/25/16 14:06> Objective - Vital Signs/Intake and Output Vital Signs (last 24 hours): Temp Pulse Resp BP Pulse Ox 98.2 F 92 H 12 91/46 L 95 11/25/16 12:00 11/25/16 12:00 11/25/16 12:00 11/25/16 12:00 11/25/16 12:00 Intake and Output: 11/25/16 11/25/16 06:59 18:59 Intake Total 436 Output Total 100 Balance 336 - Medications Medications: Current Medications Albuterol/Ipratropium (Duoneb 3 Mg/0.5 Mg (3 Ml) Ud) 3 ml IH [id number] [facility] Last Admin: 11/25/16 13:18 Dose: 3 ml Ergocalciferol (Drisdol 50,000 Intl Units Cap) 1 cap PO QWK [facility] Last Admin: 11/19/16 14:47 Dose: Not Given Folic Acid (Folic Acid) 1 mg PO DAILY [facility] Last Admin: 11/25/16 09:45 Dose: Not Given Furosemide (Lasix) 40 mg IVP DAILY [facility] Last Admin: 11/17/16 09:00 Dose: 40 mg Heparin Sodium (Porcine) (Heparin) 5,000 units SC Q12 [facility] PRN Reason: Protocol Last Admin: 11/16/16 21:44 Dose: Not Given Hydrocortisone Sodium Succinate (Solu-Cortef) 50 mg IVP Q12H [facility] Hydroxyurea (Hydrea) 500 mg PO DAILY [facility] Last Admin: 11/25/16 09:45 Dose: Not Given Vancomycin HCl (Vancomycin 1gm) 1 gm in 250 mls @ 167 mls/hr IVPB DAILY [facility] PRN Reason: Protocol Last Admin: 11/25/16 09:48 Dose: 167 mls/hr Cefepime HCl (Maxipime 1gm) 1 gm in 100 mls @ 100 mls/hr IVPB Q24H [facility] PRN Reason: Protocol Last Admin: 11/24/16 14:11 Dose: 100 mls/hr Dextrose (Dextrose 10% In Water) 500 mls @ 20 mls/hr IV .Q24H [facility] Last Admin: 11/23/16 21:51 Dose: Not Given Metronidazole (Flagyl) 500 mg in 100 mls @ 100 mls/hr IVPB Q8 [facility] PRN Reason: Protocol Last Admin: 11/25/16 05:28 Dose: 100 mls/hr Dobutamine HCl/Dextrose (Dobutamine/Dextrose 5% 500mg/250ml) 500 mg in 250 mls @ 5.647 mls/hr IV .Q24H PRN; Protocol; 2.5 MCG/KG/MIN PRN Reason: TITRATE PER PROTOCOL Last Admin: 11/25/16 05:28 Dose: 5.647 mls/hr Vasopressin 20 units/ Dextrose 101 mls @ 9.09 mls/hr IV .Q11H7M [facility]; 0.03 U/MIN PRN Reason: Protocol Last Admin: 11/25/16 10:59 Dose: 9.09 mls/hr Lactic Acid (Lac-Hydrin 12% Cream (140 G)) 0 ea TOP DAILY PRN PRN Reason: Wound Multivitamins/Minerals (Therapeutic-M Tab) 1 tab PO DAILY [facility] Last Admin: 11/25/16 09:45 Dose: Not Given Pantoprazole Sodium (Protonix Inj) 40 mg IVP Q12 [facility] Last Admin: 11/25/16 09:48 Dose: 40 mg Rifaximin (Xifaxan) 550 mg PO BID [facility] PRN Reason: Protocol Last Admin: 11/19/16 14:57 Dose: Not Given - Labs Labs: 11/25/16 05:20 11/25/16 05:20 PT 23.0 Seconds (9.9-11.8) H 11/25/16 13:20 INR 2.13 (0.93-1.08) H 11/25/16 13:20 APTT 57.7 Seconds (23.7-30.8) H 11/25/16 13:20 Attending/Attestation - Attestation I have personally seen and examined this patient.: Yes I have fully participated in the care of the patient.: Yes I have reviewed all pertinent clinical information, including history, physical exam and plan: Yes Notes (Text): 11/25/16 14:04 Patient was seen and examined with certified medical coding specialist. 35 year old female with past medical history of sickle cell disease, hypertension, asthma, cardiomyopathy, EF 39% ,cerebral palsy, and bipolar/ depression , multiple admission for recurrent UTI and sickle cell crisis, had chronically elevated transaminase is admitted with sickle cell crisis, also has underlying sepsis , Patient is now in acute liver failure , AST > 2932 , Bill[place]ubin >28.1, INR > and oilgouric renal , also has veno occulusive sickle cell crisis,(lactic acid is high due to micro ischemia) WBC is also elevated. Patient chest X rays showed congestion, plan for exchange transfusion and hemodialysis today, Patient is also awaiting for bed in ICU at [facility], Prognosis is guarded."
[2016-11-17] MEDS ORDERED: Sodium Bicarbonate (8.4%) 50 Meq Syringe IVP STA (10:50)
[2016-11-17] MEDS ORDERED: Insulin Regular 1 UNITS/0.01 ML ML IV STA (10:52)
[2016-11-17] MEDS ORDERED: Dextrose 50% SYRINGE Inj (50 ml) IVP ONE (11:09)
[2016-11-17] MEDS ORDERED: Rocuronium 10 mg/ml (5 ml) ONE ×2 (11:25→11:26)
[2016-11-17] MEDS ORDERED: Propofol 10 mg/ml Inj (20 ML) IVP ONE (11:26)
[2016-11-17] MEDS ORDERED: Propofol 10 mg/ml 1,000 MG/100 ML VIAL ONE (11:26)
[2016-11-17] MEDS ORDERED: Rocuronium 10 mg/ml (5 ml) IVP ONE (11:26)
[2016-11-17] MEDS ORDERED: Dextrose 50% SYRINGE Inj (50 ml) IVP SCH (11:30)
[2016-11-17] MEDS ORDERED: Insulin Regular 1 UNITS/0.01 ML ML IV SCH (11:30)
[2016-11-17] MEDS: Cefepime 1gm in NS 100ml 1 GM/100 ML BAG IVPB SCH (12:00)
--- NOTE | 2016-11-17 13:12 | RAD ---
HISTORY: intubation COMPARISON: 11/17/2016 at 8:47 a.m. FINDINGS: There is interval placement of endotracheal tube. The endotracheal tube terminates in the right mainstem bronchus. Repositioning is recommended. The right MediPort terminates in the SVC. LUNGS: There is developing haziness in the left lower lobe. There is mild subsegmental atelectasis in the right mid lung. There are low lung volumes. PLEURA: No significant pleural effusion identified, no pneumothorax apparent. CARDIOVASCULAR: Normal. OSSEOUS STRUCTURES: No significant abnormalities. VISUALIZED UPPER ABDOMEN: Normal. OTHER FINDINGS: None. IMPRESSION: 1. Endotracheal tube terminates in the right mainstem bronchus. Repositioning is recommended. 2. Suspect pleural effusions/atelectasis/pneumonia in the left lower lobe. Follow-up is advised.
[2016-11-17 13:34] LABS: ARTERIAL BLOOD GAS HCO3 11.7 mmol/L (21-28); ARTERIAL BLOOD GAS O2 CAPACITY 7.1 mL/dl (16-24); ARTERIAL BLOOD GAS O2 CONTENT 7.3 ML/dl (15-23); ARTERIAL BLOOD GAS PH 7.26 (7.35-7.45); ARTERIAL BLOOD HGB O2 SAT 96.8 % (95.0-98.0); CARBOXYHEMOGLOBIN 3.9 % (0.5-1.5); HHB -3.1 % (0-5); METHEMOGLOBIN 2.4 % (0.0-3.0)
--- NOTE | 2016-11-17 13:51 | PN ---
CLAIMS PROCESSOR NOTE DATE: 11/17/2016 SUBJECTIVE: The patient is very lethargic and on O2 via nasal cannula. The patient at this time is not complaining of any significant pain. The patient has occasional cough and chest congestion. No nausea or vomiting. Continues to get IV fluids with bicarb drip and is being monitored closely for her glucose and is getting IV dextrose support as well. Urine output has been decreased and the patient is scheduled for dialysis as well as plasma exchange transfusion. PHYSICAL EXAMINATION VITAL SIGNS: Her temperature is 97.6, pulse is 99, blood pressure is 120/73, and respirations are 20. HEENT: Head is atraumatic and normocephalic. Eyes: Reactive to light. Ear, nose, and throat: Seem to be within normal limits. NECK: Supple. No JVD. No thyroid enlargement or lymph nodes. HEART: Regular rate and rhythm. Normal S1 and S2. LUNGS: Revealed mild rhonchi bilaterally. ABDOMEN: Soft. Decreased bowel sounds. GENITALIA AND RECTAL: Deferred. MUSCULOSKELETAL: No joint deformities. EXTREMITIES: Revealed positive lower extremity edema. NEUROLOGIC: The patient is very lethargic and slow to respond. LABORATORY DATA: As far as her laboratories, her white count is 42.0, hemoglobin is 6.0, hematocrit is 16.9, and platelets of 119,000. The patient's PT is 22.3 and INR is 2.06. Arterial blood gas is pending. CMP is pending as well. 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 She has sickle chest syndrome as well as possible sepsis with increased white count. The patient has coagulopathy as well as metabolic acidosis, left pleural effusion, cardiomyopathy, and history of heart failure and pulmonary hypertension as well as asthma. PLAN: As far as our plan, we will continue with IV fluids. The patient is getting bicarb drip and we will follow the patient's laboratories closely and correct as needed. She is on O2 support and arterial blood gas is pending. The patient is scheduled for plasma exchange transfusion as well as dialysis. She has been given fresh frozen plasma and vitamin K to correct the coagulopathy. The patient is getting bronchodilators of DuoNeb and Lasix as well as cefepime and vancomycin. Her blood glucose is being monitored closely and she is getting IV dextrose with 10%. The patient is being followed closely by Hematology, GI, Infectious Disease, Surgery, Renal, and the PMD. We will continue to treat aggressively along the other consultants and the primary care doctor. Anish Delgadillo MD
--- NOTE | 2016-11-17 14:22 | CARD ---
APPROVED REPORT EKG Measurement Heart [id number] <Conclusion> Sinus tachycardia Low voltage QRS Nonspecific T wave abnormality Abnormal ECG
--- NOTE | 2016-11-17 15:21 | RAD ---
HISTORY: s/p dialysis cath insertion COMPARISON: 11/17/2016 at 12 p.m. FINDINGS: The endotracheal tube terminates in the right mainstem bronchus. Repositioning is recommended. The right MediPort terminates at the cavoatrial junction P LUNGS: There is atelectasis in the right mid lung. The left lung is clear. There are low lung volumes. PLEURA: No significant pleural effusion identified, no pneumothorax apparent. CARDIOVASCULAR: There is persistent cardiomegaly. OSSEOUS STRUCTURES: No significant abnormalities. VISUALIZED UPPER ABDOMEN: Normal. OTHER FINDINGS: None. IMPRESSION: 1. Endotracheal tube terminates in the right mainstem bronchus. Repositioning is recommended. 2. Right midlung atelectasis. Persistent low lung volumes.
[2016-11-17 16:32] LABS: MEAN CELL VOLUME 102.9 fl (80.0-105.0); MEAN CORPUSCULAR HGB CONC 35.9 g/dl (31.0-37.0); MEAN PLATELET VOLUME 10.9 fl (7.0-11.0); PLATELET COUNT 123 10^3/uL (120.0-450.0); RED CELL DISTRIBUTION WIDTH 25.3 % (11.5-14.5)
[2016-11-17 16:37] LABS: HEMATOCRIT 14.2 % (36.0-48.0); WHITE BLOOD COUNT 42.2 10^3/ul (4.5-11.0)
[2016-11-17 16:38] LABS: ALB/GLOB RATIO 0.8 (1.1-1.8); CALCIUM 7.6 mg/dL (8.4-10.5); POTASSIUM 4.7 mmol/L (3.6-5.0); TOTAL PROTEIN 7.6 g/dL (5.8-8.3)
[2016-11-17 16:41] LABS: BILIRUBIN,TOTAL 25.7 mg/dL (0.2-1.3)
[2016-11-17 18:50] LABS: ARTERIAL BLOOD GAS HCO3 21.2 mmol/L (21-28); ARTERIAL BLOOD GAS O2 CAPACITY 6.5 mL/dl (16-24); ARTERIAL BLOOD GAS O2 CONTENT 3.4 ML/dl (15-23); ARTERIAL BLOOD HGB O2 SAT 49.4 % (95.0-98.0); CARBOXYHEMOGLOBIN 4.8 % (0.5-1.5); HHB 44.3 % (0-5); METHEMOGLOBIN 1.6 % (0.0-3.0)
[2016-11-17] MEDS: Propofol 10 mg/ml 1,000 MG/100 ML VIAL IV PRN ×2 (19:00→22:42)
--- NOTE | 2016-11-17 19:17 | CP.PCM.PN ---
Subjective - Date & Time of Evaluation Date of Evaluation: 11/17/16 Time of Evaluation: 16:00 - Subjective Subjective: Infectious Disease Follow Up: November 17, 2016 36 yo AA female well known to me from previous hospitalizations at [facility] and [facility] presented with generalized pains and admitted for Sickle Cell vasoocclusive Crisis. The patient was just discharged from [facility] a few days ago. She returns with abdominal pain, nausea, and vomiting. The patient did not exhibit a fever while hospitalized so far but came very close with a 100.0 F. Patient with nausea and vomiting and diarrhea. Her blood pressure is lower than her usual. Started on Zosyn for antibiotic treatment. Sudden elevation of LFTs. Zosyn stopped on 11/14/2016. Impending liver failure ? Acute Kidney Injury. Noted Vancomycin restarted. Would continue with Cefepime for the time being. There is a leukocytosis of 42.0 although corrected WBC is 7.8. Patient appears swollen in general. AST and ALT are still increasing. Chelation therapy still in progress. Potential transfer to [facility]. Undergoing red cell exchange transfusion. Patient is now intubated and ventilated. Extremely poor prognosis. Supportive care. Renal dosing of antibiotics. Objective - Vital Signs/Intake and Output Vital Signs (last 24 hours): Temp Pulse Resp BP Pulse Ox 97.9 F 89 23 120/79 100 11/17/16 18:57 11/17/16 18:57 11/17/16 18:57 11/17/16 18:57 11/17/16 02:00 Intake and Output: 11/17/16 11/17/16 06:59 18:59 Intake Total 2511 0 Output Total 250 Balance 2261 0 - Medications Medications: Current Medications Albuterol/Ipratropium (Duoneb 3 Mg/0.5 Mg (3 Ml) Ud) 3 ml IH [id number] [facility] Last Admin: 11/17/16 13:02 Dose: 3 ml Budesonide (Pulmicort Respules) 0.5 mg IH [id number] [facility] Last Admin: 11/17/16 08:00 Dose: 0.5 mg Ergocalciferol (Drisdol 50,000 Intl Units Cap) 1 cap PO QWK [facility] Last Admin: 11/12/16 09:20 Dose: 1 cap Folic Acid (Folic Acid) 1 mg PO DAILY [facility] Last Admin: 11/16/16 09:01 Dose: 1 mg Furosemide (Lasix) 40 mg IVP DAILY [facility] Last Admin: 11/16/16 09:00 Dose: 40 mg Heparin Sodium (Porcine) (Heparin) 5,000 units SC Q12 [facility] PRN Reason: Protocol Last Admin: 11/16/16 21:44 Dose: Not Given Hydromorphone HCl (Dilaudid) 1 mg IVP Q3H PRN PRN Reason: Pain, severe (8-10) Last Admin: 11/17/16 04:29 Dose: 1 mg Hydroxyurea (Hydrea) 500 mg PO DAILY [facility] Last Admin: 11/16/16 17:22 Dose: 500 mg Vancomycin HCl (Vancomycin 1gm) 1 gm in 250 mls @ 167 mls/hr IVPB DAILY [facility] PRN Reason: Protocol Last Admin: 11/16/16 14:33 Dose: Not Given Cefepime HCl (Maxipime 1gm) 1 gm in 100 mls @ 100 mls/hr IVPB Q24H [facility] PRN Reason: Protocol Last Admin: 11/16/16 14:35 Dose: 100 mls/hr Dextrose (Dextrose 10% In Water) 500 mls @ 20 mls/hr IV .Q24H [facility] Last Admin: 11/16/16 19:30 Dose: 20 mls/hr Sodium Bicarbonate 150 meq/ (Dextrose) 1,150 mls @ 125 mls/hr IV .Q9H12M [facility] Last Admin: 11/16/16 23:51 Dose: 125 mls/hr Lactic Acid (Lac-Hydrin 12% Cream (140 G)) 0 ea TOP DAILY PRN PRN Reason: Wound Lactulose (Enulose) 20 gm PO BID [facility] Last Admin: 11/16/16 12:30 Dose: Not Given Midazolam HCl (Versed Inj) 1 mg IVP Q3H PRN PRN Reason: sedation Multivitamins/Minerals (Therapeutic-M Tab) 1 tab PO DAILY [facility] Last Admin: 11/16/16 09:01 Dose: 1 tab Non-Formulary Medication (Mometasone [Asmanex Twisthaler 110 Mcg]) 100 mcg IH BID [facility] Last Admin: 11/15/16 21:20 Dose: Not Given Pantoprazole Sodium (Protonix Ec Tab) 40 mg PO 0600 [facility] Last Admin: 11/17/16 05:13 Dose: Not Given Tramadol HCl (Ultram) 50 mg PO Q6 PRN PRN Reason: Pain, moderate (4-7) Last Admin: 11/16/16 09:01 Dose: 50 mg Vitamin A (Vitamin A & D Oint Ud Foilpak) 1 ea TOP Q8 PRN PRN Reason: Dry skin - Labs Labs: 11/17/16 16:00 11/17/16 16:00 PT 22.3 Seconds (9.9-11.8) H 11/17/16 06:30 INR 2.06 (0.93-1.08) H 11/17/16 06:30 - Constitutional Appears: Toxic, No Acute Distress, Chronically Ill - Head Exam Head Exam: ATRAUMATIC, NORMOCEPHALIC - Eye Exam Eye Exam: EOMI, PERRL Pupil Exam: NORMAL ACCOMODATION, PERRL - ENT Exam ENT Exam: Mucous Membranes Moist, Normal External Ear Exam, TM's Normal Bilaterally - Neck Exam Neck Exam: Full ROM, Normal Inspection - Respiratory Exam Respiratory Exam: Decreased Breath Sounds. absent: Rales, Rhonchi, Wheezes Additional comments: intubated and ventilated - Cardiovascular Exam Cardiovascular Exam: REGULAR RHYTHM, RRR, +S1, +S2 - GI/Abdominal Exam GI & Abdominal Exam: Soft, Normal Bowel Sounds. absent: Distended, Tenderness - Extremities Exam Extremities Exam: Joint Swelling, Pedal Edema - Neurological Exam Additional comments: intubated and ventilated - Psychiatric Exam Additional comments: unable to respond - Skin Skin Exam: Intact, Normal Color Assessment and Plan - Assessment and Plan (Free Text) Assessment: 36 yo AA female with known Sickle Cell disease presenting with diarrhea and abdominal pain. Low blood pressure/borderline hypotension. Supportive care. Velarde cultures. No leukocytosis noted however. Coagulase negative staph according to FISH studies. Sudden increase in LFTs and creatinine. Continue with renal dosing of Cefepime for now. Vancomycin should be adjusted for renal function. LFT are continuing to increase. Acute Kidney Injury with creatinine of 2.5. Remains in MICU for further care. General edema of the patient. Today patient was intubated and ventilated. Increasing leukocytosis. If continues to increase, will consider use of meropenem. Noted that the patient's cultures are negative to date. LFTs remain severely elevated. 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 Extremely poor prognosis. Impending respiratory failure. Generalized edema. Liver Cirrhosis. Possible transfer to [facility]. Thank you for allowing me to participate in the care of the patient, we will follow with you.
--- NOTE | 2016-11-17 19:28 | PCM.PROC ---
Procedures Attestation:: I certify that I have explained the specified Operation(s) or Procedure(s), risks, benefits and reasonable alternatives to the Patient and/or other person responsible. The opportunity was given to ask questions and all questions answered - Central Line Placement Left Femoral Hemodialysis Access Aseptic technique was employed throughout the procedure: Hand Hygiene done prior to procedure, Full sterile barriers (mask, hair cover, sterile gown, sterile gloves), Full body sterile drape, Chloraprep Antiseptic: 2 minute prep for Femoral CVP Time Out Performed: Yes Pt. Placed on Pulse Ox Monitor: Yes Central Line Prep: Chlorhexidine-Alcohol Combination Ultrasound Used for Placement: No Central Line Lumen Inserted: triple Central Line Length: 20 cm Post Procedure: Sutured in Place, Good Blood Return, All Ports Aspirated, Flushed, Capped, Sterile Dressing Applied Secured by: Suture Post procedure dressing: Clear vapor permeable, Chlorhexidine disc (Biopatch) Post Procedure X-Ray: Yes Patient Tolerated Procedure: Well, No Complications Immediate Complications: None Additional Comments: power trialysis catheter inserted
[2016-11-17 19:32] LABS: RETIC% 11.71 % (0.5-1.5)
[2016-11-17] MEDS: Multivitamin With Minerals Tab PO SCH (19:44)
[2016-11-17 20:00] LABS: BAND 9 % (0-2); CORRECTED WBC 6.2 K/mm3 (4.5-11.0); EOSINOPHIL 1 % (0.0-3.0); METAMYELOCYTE 1 %; MYELOCYTE 5 %; NEUTROPHIL 61 % (50.0-70.0); NUCLEATED RED BLOOD CELL 583 %
[2016-11-17 20:01] LABS: PLATELET ESTIMATE NORMAL (NORMAL)
[2016-11-17 20:11] LABS: ANISOCYTOSIS 1+; LARGE PLATELETS PRESENT; MICROCYTOSIS 2+; SPHEROCYTE SLIGHT
[2016-11-17 20:13] LABS: HYPOCHROMIA 2+; STOMATOCYTE SLIGHT; TARGET CELLS 1+
--- NOTE | 2016-11-17 22:14 | CP.PCM.PN ---
Subjective - Date & Time of Evaluation Date of Evaluation: 11/17/16 Time of Evaluation: 11:00 - Subjective Subjective: Patient with sickle cell disease, being treated chronically for iron overload, CHF w/ systolic dysfunction, admitted with sickle cell crisis, aucte liver injury and acute renal failure; Patient s/p HD catheter placement this evening, delayed due to cogulopathy and difficulty with catheter insertion; intubated earlier today for airway protection and overall deteriorating condition; Objective - Vital Signs/Intake and Output Vital Signs (last 24 hours): Temp Pulse Resp BP Pulse Ox 96.5 F L 83 22 97/62 L 100 11/17/16 21:24 11/17/16 21:24 11/17/16 21:24 11/17/16 21:24 11/17/16 02:00 Intake and Output: 11/17/16 11/18/16 18:59 06:59 Intake Total 0 350 Balance 0 350 - Medications Medications: Current Medications Albuterol/Ipratropium (Duoneb 3 Mg/0.5 Mg (3 Ml) Ud) 3 ml IH [id number] [facility] Last Admin: 11/17/16 19:34 Dose: 3 ml Budesonide (Pulmicort Respules) 0.5 mg IH [id number] [facility] Last Admin: 11/17/16 19:35 Dose: 0.5 mg Ergocalciferol (Drisdol 50,000 Intl Units Cap) 1 cap PO QWK [facility] Last Admin: 11/12/16 09:20 Dose: 1 cap Folic Acid (Folic Acid) 1 mg PO DAILY [facility] Last Admin: 11/17/16 19:43 Dose: Not Given Furosemide (Lasix) 40 mg IVP DAILY [facility] Last Admin: 11/17/16 09:00 Dose: 40 mg Heparin Sodium (Porcine) (Heparin) 5,000 units SC Q12 [facility] PRN Reason: Protocol Last Admin: 11/16/16 21:44 Dose: Not Given Hydromorphone HCl (Dilaudid) 1 mg IVP Q3H PRN PRN Reason: Pain, severe (8-10) Last Admin: 11/17/16 04:29 Dose: 1 mg Hydroxyurea (Hydrea) 500 mg PO DAILY [facility] Last Admin: 11/17/16 19:44 Dose: Not Given Vancomycin HCl (Vancomycin 1gm) 1 gm in 250 mls @ 167 mls/hr IVPB DAILY [facility] PRN Reason: Protocol Last Admin: 11/17/16 09:30 Dose: 167 mls/hr Cefepime HCl (Maxipime 1gm) 1 gm in 100 mls @ 100 mls/hr IVPB Q24H [facility] PRN Reason: Protocol Last Admin: 11/17/16 12:00 Dose: 100 mls/hr Dextrose (Dextrose 10% In Water) 500 mls @ 20 mls/hr IV .Q24H [facility] Last Admin: 11/17/16 18:30 Dose: 20 mls/hr Sodium Bicarbonate 150 meq/ (Dextrose) 1,150 mls @ 125 mls/hr IV .Q9H12M [facility] Last Admin: 11/17/16 18:00 Dose: 125 mls/hr Propofol (Diprivan) 1,000 mg in 100 mls @ 2.259 mls/hr IV .Q24H PRN; Protocol; 5 MCG/KG/MIN PRN Reason: TITRATE PER MD ORDER Last Titration: 11/17/16 21:54 Dose: 40 mcg/kg/min, 18.071 mls/hr Lactic Acid (Lac-Hydrin 12% Cream (140 G)) 0 ea TOP DAILY PRN PRN Reason: Wound Lactulose (Enulose) 20 gm PO BID [facility] Last Admin: 11/17/16 19:42 Dose: Not Given Midazolam HCl (Versed Inj) 1 mg IVP Q3H PRN PRN Reason: sedation Multivitamins/Minerals (Therapeutic-M Tab) 1 tab PO DAILY [facility] Last Admin: 11/17/16 19:44 Dose: Not Given Non-Formulary Medication (Mometasone [Asmanex Twisthaler 110 Mcg]) 100 mcg IH BID [facility] Last Admin: 11/15/16 21:20 Dose: Not Given Pantoprazole Sodium (Protonix Ec Tab) 40 mg PO 0600 [facility] Last Admin: 11/17/16 05:13 Dose: Not Given Tramadol HCl (Ultram) 50 mg PO Q6 PRN PRN Reason: Pain, moderate (4-7) Last Admin: 11/16/16 09:01 Dose: 50 mg Vitamin A (Vitamin A & D Oint Ud Foilpak) 1 ea TOP Q8 PRN PRN Reason: Dry skin - Labs Labs: 11/17/16 16:00 11/17/16 16:00 PT 22.3 Seconds (9.9-11.8) H 11/17/16 06:30 INR 2.06 (0.93-1.08) H 11/17/16 06:30 - Constitutional Appears: In Acute Distress - Eye Exam Eye Exam: Scleral icterus - Respiratory Exam Additional comments: rales present; tachypneic; - Cardiovascular Exam Cardiovascular Exam: REGULAR RHYTHM, +S1, +S2 - GI/Abdominal Exam GI & Abdominal Exam: Distended, Soft, Tenderness - Exam Additional comments: lovett in place; - Extremities Exam Additional comments: moderately edematous legs; - Neurological Exam Neurological Exam: Alert - Skin Additional comments: ext cool, delayed capillary refill; Assessment and Plan (1) Acute renal failure Assessment & Plan: Oliguric renal failure in the setting of acute liver injury and sickle cell crisis; exact etiology difficult to pinpoint (ATN v vaso-occlusion v HRS); hyperkalemia treated medically and improved; high anion gap acidosis from lactic acidosis being treated with bicarb drip and with stable pH; however, patient getting volume overloaded with hypoxemic respiratory failure and expecting more volume to be given with PRBC exchange; dialyzing tonight urgently to help respiratory status and to prevent impending hyperkalemia with planned prbc exchange this evening; -2K/2.5Ca/34HCO3 dialysate with UF goal 2L over 3 hrs; will plan for next HD tomorrow morning; Status: Acute (2) Acute hypoxemic respiratory failure Status: Acute (3) Acute exacerbation of CHF (congestive heart failure) Assessment & Plan: In the setting of volume overload and MELITON; systolic dysfunction; will benefit from UF; Status: Acute (4) Acute liver failure Assessment & Plan: Etiology unclear but has history of iron overload in setting of numerous transfusions; with marked lactic acidosis; awaiting bed at [facility] ICU; Status: Acute (5) Sickle cell anemia with crisis Assessment & Plan: Red cell exchange being planned tonight after pre-emptive HD; may help with multi-organ dysfunction; repeat HD tomorrow morning; Status: Acute - Assessment and Plan (Free Text) Assessment: Critical care time assessing patient, conferring with critical care team and coordinating 1st HD session > 50 minutes;
--- NOTE | 2016-11-18 01:12 | CP.PCM.PN ---
Subjective - Date & Time of Evaluation Date of Evaluation: 11/17/16 Time of Evaluation: 16:00 - Subjective Subjective: Vented, awaiting red cell exchange Objective - Vital Signs/Intake and Output Vital Signs (last 24 hours): Temp Pulse Resp BP Pulse Ox 96.5 F L 85 22 91/64 L 97 11/17/16 21:24 11/18/16 00:38 11/17/16 21:24 11/18/16 00:30 11/18/16 00:30 Intake and Output: 11/17/16 11/18/16 18:59 06:59 Intake Total 0 375 Balance 0 375 - Medications Medications: Current Medications Albuterol/Ipratropium (Duoneb 3 Mg/0.5 Mg (3 Ml) Ud) 3 ml IH [id number] [facility] Last Admin: 11/17/16 19:34 Dose: 3 ml Budesonide (Pulmicort Respules) 0.5 mg IH [id number] [facility] Last Admin: 11/17/16 19:35 Dose: 0.5 mg Ergocalciferol (Drisdol 50,000 Intl Units Cap) 1 cap PO QWK [facility] Last Admin: 11/12/16 09:20 Dose: 1 cap Folic Acid (Folic Acid) 1 mg PO DAILY [facility] Last Admin: 11/17/16 19:43 Dose: Not Given Furosemide (Lasix) 40 mg IVP DAILY [facility] Last Admin: 11/17/16 09:00 Dose: 40 mg Heparin Sodium (Porcine) (Heparin) 5,000 units SC Q12 [facility] PRN Reason: Protocol Last Admin: 11/16/16 21:44 Dose: Not Given Hydromorphone HCl (Dilaudid) 1 mg IVP Q3H PRN PRN Reason: Pain, severe (8-10) Last Admin: 11/17/16 04:29 Dose: 1 mg Hydroxyurea (Hydrea) 500 mg PO DAILY [facility] Last Admin: 11/17/16 19:44 Dose: Not Given Vancomycin HCl (Vancomycin 1gm) 1 gm in 250 mls @ 167 mls/hr IVPB DAILY [facility] PRN Reason: Protocol Last Admin: 11/17/16 09:30 Dose: 167 mls/hr Cefepime HCl (Maxipime 1gm) 1 gm in 100 mls @ 100 mls/hr IVPB Q24H [facility] PRN Reason: Protocol Last Admin: 11/17/16 12:00 Dose: 100 mls/hr Dextrose (Dextrose 10% In Water) 500 mls @ 20 mls/hr IV .Q24H [facility] Last Admin: 11/17/16 18:30 Dose: 20 mls/hr Sodium Bicarbonate 150 meq/ (Dextrose) 1,150 mls @ 125 mls/hr IV .Q9H12M [facility] Last Admin: 11/17/16 18:00 Dose: 125 mls/hr Propofol (Diprivan) 1,000 mg in 100 mls @ 2.259 mls/hr IV .Q24H PRN; Protocol; 5 MCG/KG/MIN PRN Reason: TITRATE PER MD ORDER Last Admin: 11/17/16 22:42 Dose: 40 mcg/kg/min, 18.071 mls/hr Lactic Acid (Lac-Hydrin 12% Cream (140 G)) 0 ea TOP DAILY PRN PRN Reason: Wound Lactulose (Enulose) 20 gm PO BID [facility] Last Admin: 11/17/16 19:42 Dose: Not Given Midazolam HCl (Versed Inj) 1 mg IVP Q3H PRN PRN Reason: sedation Multivitamins/Minerals (Therapeutic-M Tab) 1 tab PO DAILY [facility] Last Admin: 11/17/16 19:44 Dose: Not Given Non-Formulary Medication (Mometasone [Asmanex Twisthaler 110 Mcg]) 100 mcg IH BID [facility] Last Admin: 11/15/16 21:20 Dose: Not Given Pantoprazole Sodium (Protonix Ec Tab) 40 mg PO 0600 [facility] Last Admin: 11/17/16 05:13 Dose: Not Given Tramadol HCl (Ultram) 50 mg PO Q6 PRN PRN Reason: Pain, moderate (4-7) Last Admin: 11/16/16 09:01 Dose: 50 mg Vitamin A (Vitamin A & D Oint Ud Foilpak) 1 ea TOP Q8 PRN PRN Reason: Dry skin - Labs Labs: 11/17/16 16:00 11/17/16 16:00 PT 22.3 Seconds (9.9-11.8) H 11/17/16 06:30 INR 2.06 (0.93-1.08) H 11/17/16 06:30 - Head Exam Head Exam: ATRAUMATIC - Eye Exam Eye Exam: Normal appearance - ENT Exam ENT Exam: Mucous Membranes Dry - Respiratory Exam Respiratory Exam: Decreased Breath Sounds - Cardiovascular Exam Cardiovascular Exam: +S1, +S2 - GI/Abdominal Exam GI & Abdominal Exam: Normal Bowel Sounds - Extremities Exam Extremities Exam: Pedal Edema Assessment and Plan (1) Sickle cell pain crisis Assessment & Plan: for red cell exchange given multiorgan failure Status: Chronic (2) Iron overload due to repeated red blood cell transfusions Assessment & Plan: for transfer to [facility]; awaiting bed Status: Chronic (3) Leukocytosis Assessment & Plan: on antibiotics Status: Acute (4) Sickle cell anemia Status: Acute
[2016-11-18] MEDS: Albuterol-Ipratrop 3 mg / 0.5 (3 ml) UD IH SCH ×4 (01:34→20:27)
[2016-11-18 03:31] LABS: BASO # 0.08 K/mm3 (0.0-2.0); BASO % 0.8 % (0.0-3.0); HEMATOCRIT 24.2 % (36.0-48.0); MEAN CELL VOLUME 87.1 fl (80.0-105.0); MEAN CORPUSCULAR HEMOGLOBIN 30.6 pg (25.0-35.0); MEAN CORPUSCULAR HGB CONC 35.1 g/dl (31.0-37.0); MEAN PLATELET VOLUME 9.7 fl (7.0-11.0); RED CELL DISTRIBUTION WIDTH 15.2 % (11.5-14.5); WHITE BLOOD COUNT 9.6 10^3/ul (4.5-11.0)
[2016-11-18 03:40] LABS: PLATELET COUNT 32 10^3/uL (120.0-450.0)
[2016-11-18] MEDS: Propofol 10 mg/ml 1,000 MG/100 ML VIAL IV PRN ×2 (04:52→19:42)
[2016-11-18] MEDS ORDERED: Sodium Chloride 0.9% 500 ML IV STA (06:25)
[2016-11-18] MEDS: NOREPINEPHRINE BIT/0.9 % NACL 4 MG/250 ML BAG IV PRN ×2 (06:46→19:43)
[2016-11-18 07:01] LABS: ARTERIAL BLOOD GAS HCO3 22.6 mmol/L (21-28); ARTERIAL BLOOD GAS PH 7.53 (7.35-7.45)
[2016-11-18 07:03] LABS: HEMATOCRIT 26.4 % (36.0-48.0); MEAN CELL VOLUME 85.4 fl (80.0-105.0); MEAN CORPUSCULAR HEMOGLOBIN 30.4 pg (25.0-35.0); MEAN CORPUSCULAR HGB CONC 35.6 g/dl (31.0-37.0); MEAN PLATELET VOLUME 9.3 fl (7.0-11.0); PLATELET COUNT 40 10^3/uL (120.0-450.0); RED CELL DISTRIBUTION WIDTH 15.4 % (11.5-14.5); WHITE BLOOD COUNT 14.7 10^3/ul (4.5-11.0)
[2016-11-18 07:13] LABS: ALB/GLOB RATIO 0.7 (1.1-1.8); POTASSIUM 3.6 mmol/L (3.6-5.0); TOTAL PROTEIN 5.6 g/dL (5.8-8.3)
[2016-11-18 07:15] LABS: INR 2.3 (0.93-1.08)
[2016-11-18] MEDS: Budesonide 0.5 mg/2 ml Inhal Susp UD IH SCH ×2 (07:27→20:27)
--- NOTE | 2016-11-18 07:38 | CP.CCUPN ---
CCU Subjective - Physician Review Events Since Last Encounter (Free Text): 11/18/16 07:35 intubated over weekend, had plasma exchange- severe thrombcytopenia, ordered plts Subjective (Free Text): 11/15/16 19:06 Critical care progress note for Dr. Pat Villanueva, PGY-1 Pt S & E at bedside. Pt reports occasional intense chest pain, SOB. Denies N/V/F/C, other complaints. 11/18/16 07:35 Critical care progress note for Dr. Harris Villanueva, PGY-1 Pt S & E at bedside. Pt intubated, sedated, arousable to tactile stimuli. Per nursing- had Left femoral catheter inserted overnight, had HD, now with severe thrombocytopenia- awaiting plts transfusion. Critical Care Time Spent (in minutes): 35 CCU Objective - Vital Signs / Intake & Output Vital Signs (Last 4 hours): Vital Signs Pulse BP Pulse Ox 11/18/16 06:05 88 11/18/16 06:04 87 11/18/16 06:03 88 11/18/16 06:02 88 11/18/16 06:01 88 78/54 L 11/18/16 06:00 89 88 L 11/18/16 05:30 87 76/50 L 100 11/18/16 05:07 86 11/18/16 05:06 87 11/18/16 05:05 86 11/18/16 05:04 86 11/18/16 05:03 87 11/18/16 05:02 87 11/18/16 05:01 87 11/18/16 05:00 80/51 L 11/18/16 04:59 87 11/18/16 04:58 87 82/53 L 98 11/18/16 04:32 87 80/53 L 100 11/18/16 04:30 87 82/48 L 100 11/18/16 04:16 88 11/18/16 04:15 88 94/52 L 78 L 11/18/16 04:07 89 11/18/16 04:06 88 11/18/16 04:05 82 11/18/16 04:03 83 11/18/16 04:02 89 11/18/16 04:00 88 78/46 L 77 L 11/18/16 03:45 87 99 Intake and Output (Last 8hrs): Intake & Output 11/17/16 11/18/16 11/18/16 22:59 06:59 14:59 Intake Total 375 125 Output Total 300 Balance 375 -175 Intake: IV 50 125 Blood Product 325 Red Blood Cells Cp2d As3 325 Lr Unit [id number] Output: Urine 300 2-way Urethral 300 Other: # Bowel Movements 2 - Physical Exam Head: Positive for: Atraumatic, Normocephalic Conjunctiva: Positive for: Normal Mouth: Positive for: Moist Mucous Membranes. Negative for: Normal Teeth (poor dentition) Nose (External): Positive for: Atraumatic Neck: Positive for: Normal Range of Motion Respiratory/Chest: Positive for: Clear to Auscultation, Good Air Exchange, Other (R port in place- clean and dry ). Negative for: Respiratory Distress, Accessory Muscle Use Cardiovascular: Positive for: Regular Rate and Rhythm, Normal S1, S2. Negative for: Murmurs Abdomen: Positive for: Tenderness (mild RUQ ), Normal Bowel Sounds. Negative for: Distention, Peritoneal Signs, Rebound, Guarding, Hernias Back: Positive for: Normal Inspection Upper Extremity: Positive for: Normal Inspection. Negative for: Cyanosis, Edema Lower Extremity: Positive for: Normal Inspection, Edema Neurological: Positive for: GCS=15, CN II-XII Intact, Speech Normal. Negative for: Motor Func Grossly Intact (decreased) Skin: Positive for: Warm, Dry, Normal Color. Negative for: Rashes Psychiatric: Positive for: Alert, Oriented x 3, Normal Insight, Normal Concentration - Medications Active Medications: Active Medications Generic Name Dose Route Start Last Admin Trade Name Freq PRN Reason Stop Dose Admin Albuterol/Ipratropium 3 ml 11/16/16 14:00 11/18/16 07:27 Duoneb 3 Mg/0.5 Mg (3 Ml) Ud IH 3 ml [id number] ARLETTE Administration Budesonide 0.5 mg 11/16/16 20:00 11/18/16 07:27 Pulmicort Respules IH 0.5 mg [id number] ARLETTE Administration Ergocalciferol 1 cap 11/12/16 10:00 11/12/16 09:20 Drisdol 50,000 Intl Units Cap PO 1 cap QWK ARLETTE Administration Folic Acid 1 mg 11/12/16 10:00 11/17/16 19:43 Folic Acid PO Not Given DAILY ARLETTE Furosemide 40 mg 11/16/16 10:00 11/17/16 09:00 Lasix IVP 40 mg DAILY ARLETTE Administration Heparin Sodium (Porcine) 5,000 units 11/13/16 01:15 11/16/16 21:44 Heparin SC Not Given Q12 ARLETTE Protocol Hydromorphone HCl 1 mg 11/15/16 11:24 11/17/16 04:29 Dilaudid IVP 1 mg Q3H PRN Administration Pain, severe (8-10) Hydroxyurea 500 mg 11/12/16 10:00 11/17/16 19:44 Hydrea PO Not Given DAILY ARLETTE Vancomycin HCl 1 gm in 250 mls @ 167 mls/hr 11/15/16 11:30 11/17/16 09:30 Vancomycin 1gm IVPB 167 mls/hr DAILY ARLETTE Administration Protocol Cefepime HCl 1 gm in 100 mls @ 100 mls/hr 11/15/16 13:15 11/17/16 12:00 Maxipime 1gm IVPB 100 mls/hr Q24H ARLETTE Administration Protocol Dextrose 500 mls @ 20 mls/hr 11/16/16 18:45 11/17/16 18:30 Dextrose 10% In Water IV 20 mls/hr .Q24H ARLETTE Administration Sodium Bicarbonate 150 meq/ 1,150 mls @ 125 mls/hr 11/16/16 23:15 11/17/16 18 :00 Dextrose IV 125 mls/hr .[id number] ARLETTE Administration Propofol 1,000 mg in 100 mls @ 2.259 mls/hr 11/17/16 20:53 11/18/16 06:00 Diprivan IV 15 mcg/kg/min .Q24H PRN 6.777 mls/hr TITRATE PER MD ORDER Titration Protocol 5 MCG/KG/MIN NOREPINEPHRINE BIT/0.9 % NACL 4 mg in 250 mls @ 15 mls/hr 11/18/16 06:33 06:46 Levophed 4 Mg/ 250 Ml Ns Premixed IV 4 mcg/min .[id number] PRN 15 mls/hr TITRATE PER MD ORDER Administration Protocol 4 MCG/MIN Lactic Acid 0 ea 11/13/16 09:22 Lac-Hydrin 12% Cream (140 G) TOP DAILY PRN Wound Lactulose 20 gm 11/16/16 10:00 11/17/16 19:42 Enulose PO Not Given BID ARLETTE Midazolam HCl 1 mg 11/17/16 17:29 Versed Inj IVP Q3H PRN sedation Multivitamins/Minerals 1 tab 11/12/16 11:30 11/17/16 19:44 Therapeutic-M Tab PO Not Given DAILY ARLETTE Non-Formulary Medication 100 mcg 11/13/16 10:00 11/15/16 21:20 Mometasone [Asmanex Twisthaler 110 Mcg] IH Not Given BID ARLETTE Pantoprazole Sodium 40 mg 11/18/16 10:00 Protonix Inj IVP DAILY ARLETTE Tramadol HCl 50 mg 11/12/16 01:44 11/16/16 09:01 Ultram PO 50 mg Q6 PRN Administration Pain, moderate (4-7) Vitamin A 1 ea 11/16/16 10:18 Vitamin A & D Oint Ud Foilpak TOP Q8 PRN Dry skin - Patient Studies Lab Studies: Microbiology Studies 11/14/16 18:06 Blood Culture - Preliminary Blood-Venous NO GROWTH AFTER 3 DAYS 11/14/16 16:47 Blood Culture - Preliminary Blood-Venous NO GROWTH AFTER 3 DAYS 11/15/16 21:20 MRSA Culture (Admit) - Final Nose MRSA NOT DETECTED Lab Studies 11/18/16 11/18/16 11/18/16 Range/Units 06:55 06:30 06:30 WBC 14.7 H D (4.5-11.0) 10^3/ul RBC 3.09 L (3.5-6.1) 10^6/uL Hgb 9.4 L (12.0-16.0) g/dL Hct 26.4 L (36.0-48.0) % MCV 85.4 (80.0-105.0) fl MCH 30.4 (25.0-35.0) pg MCHC 35.6 (31.0-37.0) g/dl RDW 15.4 H (11.5-14.5) % Plt Count 40 L* (120.0-450.0) 10^3/uL MPV 9.3 (7.0-11.0) fl Gran % Lymph % (Auto) Butts % (Auto) Eos % (Auto) Baso % (Auto) Gran # Lymph # Butts # Eos # Baso # Corrected WBC (Man) (4.5-11.0) K/mm3 Neutrophils % (Manual) (50.0-70.0) % Band Neutrophils % (0-2) % Lymphocytes % (Manual) (22.0-35.0) % Monocytes % (Manual) (1.0-6.0) % Eosinophils % (Manual) (0.0-3.0) % Metamyelocytes % % Myelocytes % % Nucleated RBC % % Platelet Evaluation (NORMAL) Large Platelets Hypochromasia Poikilocytosis (manual Anisocytosis (manual) Microcytosis (manual) Macrocytosis (manual) Spherocytes Sickle Cells Target Cells Stomatocytes Schistocytes Retic Count (0.5-1.5) % PT 24.8 H (9.9-11.8) Seconds INR 2.30 H (0.93-1.08) pCO2 27 L (35-45) mm/Hg pO2 224.0 H (80-100) mm/Hg HCO3 22.6 (21-28) mmol/L ABG pH 7.53 H (7.35-7.45) ABG Total CO2 23.4 (22-28) mmol.L ABG O2 Saturation 101.6 H (95-98) % ABG O2 Content (15-23) ML/dl ABG Base Excess 1.1 (-2.0-3.0) mmol/L ABG Hemoglobin (11.7-17.4) g/dL ABG Carboxyhemoglobin (0.5-1.5) % POC ABG HHb (Measured) (0-5) % ABG Methemoglobin (0.0-3.0) % ABG O2 Capacity (16-24) mL/dl ABG Potassium 4.2 (3.6-5.2) mmol/L Hgb O2 Saturation (95.0-98.0) % Glucose 114 H (65-105) mg/dl Lactate 4.8 H* (0.7-2.1) mmol/L FiO2 100.0 % Sodium 135.0 (132-148) mmol/L Potassium (3.6-5.0) mmol/L Chloride 106.0 (98-107) mmol/L Carbon Dioxide (21-33) mmol/L Anion Gap (10-20) BUN (7-21) mg/dL Creatinine (0.5-1.4) mg/dL Est GFR ( Amer) Est GFR (Non-Af Amer) POC Glucose (mg/dL) (65-110) mg/dL Random Glucose (70-110) mg/dL Calcium (8.4-10.5) mg/dL Phosphorus (2.5-4.5) mg/dL Magnesium (1.7-2.2) mg/dL Total Bilirubin (0.2-1.3) mg/dL AST (14-36) U/L ALT (7-56) U/L Alkaline Phosphatase (38-126) U/L Total Protein (5.8-8.3) g/dL Albumin (3.0-4.8) g/dL Globulin gm/dL Albumin/Globulin Ratio (1.1-1.8) Arterial Blood Potassium 4.2 (3.6-5.2) mmol/L Random Vancomycin (20.0-40.0) ug/mL Blood Type Antibody Screen Crossmatch BBK History Checked 11/18/16 11/17/16 11/17/16 Range/Units 03:05 21:45 18:30 WBC 9.6 D (4.5-11.0) 10^3/ul RBC 2.78 L (3.5-6.1) 10^6/uL Hgb 8.5 L D (12.0-16.0) g/dL Hct 24.2 L (36.0-48.0) % MCV 87.1 D (80.0-105.0) fl MCH 30.6 (25.0-35.0) pg MCHC 35.1 (31.0-37.0) g/dl RDW 15.2 H (11.5-14.5) % Plt Count 32 L* (120.0-450.0) 10^3/uL MPV 9.7 (7.0-11.0) fl Gran % Lymph % (Auto) Butts % (Auto) Eos % (Auto) Baso % (Auto) 0.8 Gran # Lymph # Butts # Eos # Baso # 0.08 Corrected WBC (Man) (4.5-11.0) K/mm3 Neutrophils % (Manual) (50.0-70.0) % Band Neutrophils % (0-2) % Lymphocytes % (Manual) (22.0-35.0) % Monocytes % (Manual) (1.0-6.0) % Eosinophils % (Manual) (0.0-3.0) % Metamyelocytes % % Myelocytes % % Nucleated RBC % % Platelet Evaluation (NORMAL) Large Platelets Hypochromasia Poikilocytosis (manual Anisocytosis (manual) Microcytosis (manual) Macrocytosis (manual) Spherocytes Sickle Cells Target Cells Stomatocytes Schistocytes Retic Count (0.5-1.5) % PT (9.9-11.8) Seconds INR (0.93-1.08) pCO2 43 (35-45) mm/Hg pO2 27.0 L* (80-100) mm/Hg HCO3 21.2 (21-28) mmol/L ABG pH 7.30 L (7.35-7.45) ABG Total CO2 22.5 (22-28) mmol.L ABG O2 Saturation 52.7 L (95-98) % ABG O2 Content 3.4 L (15-23) ML/dl ABG Base Excess -4.7 L (-2.0-3.0) mmol/L ABG Hemoglobin 4.9 L (11.7-17.4) g/dL ABG Carboxyhemoglobin 4.8 H (0.5-1.5) % POC ABG HHb (Measured) 44.3 H (0-5) % ABG Methemoglobin 1.6 (0.0-3.0) % ABG O2 Capacity 6.5 L (16-24) mL/dl ABG Potassium (3.6-5.2) mmol/L Hgb O2 Saturation 49.4 L (95.0-98.0) % Glucose (65-105) mg/dl Lactate (0.7-2.1) mmol/L FiO2 60.0 % Sodium (132-148) mmol/L Potassium (3.6-5.0) mmol/L Chloride (98-107) mmol/L Carbon Dioxide (21-33) mmol/L Anion Gap (10-20) BUN (7-21) mg/dL Creatinine (0.5-1.4) mg/dL Est GFR ( Amer) Est GFR (Non-Af Amer) POC Glucose (mg/dL) (65-110) mg/dL Random Glucose (70-110) mg/dL Calcium (8.4-10.5) mg/dL Phosphorus (2.5-4.5) mg/dL Magnesium (1.7-2.2) mg/dL Total Bilirubin (0.2-1.3) mg/dL AST (14-36) U/L ALT (7-56) U/L Alkaline Phosphatase (38-126) U/L Total Protein (5.8-8.3) g/dL Albumin (3.0-4.8) g/dL Globulin gm/dL Albumin/Globulin Ratio (1.1-1.8) Arterial Blood Potassium (3.6-5.2) mmol/L Random Vancomycin 19.8 L (20.0-40.0) ug/mL Blood Type Antibody Screen Crossmatch BBK History Checked 11/17/16 11/17/16 11/17/16 Range/Units 16:04 16:00 16:00 WBC (4.5-11.0) 10^3/ul RBC (3.5-6.1) 10^6/uL Hgb (12.0-16.0) g/dL Hct (36.0-48.0) % MCV (80.0-105.0) fl MCH (25.0-35.0) pg MCHC (31.0-37.0) g/dl RDW (11.5-14.5) % Plt Count (120.0-450.0) 10^3/uL MPV (7.0-11.0) fl Gran % Lymph % (Auto) Butts % (Auto) Eos % (Auto) Baso % (Auto) Gran # Lymph # Butts # Eos # Baso # Corrected WBC (Man) (4.5-11.0) K/mm3 Neutrophils % (Manual) (50.0-70.0) % Band Neutrophils % (0-2) % Lymphocytes % (Manual) (22.0-35.0) % Monocytes % (Manual) (1.0-6.0) % Eosinophils % (Manual) (0.0-3.0) % Metamyelocytes % % Myelocytes % % Nucleated RBC % % Platelet Evaluation (NORMAL) Large Platelets Hypochromasia Poikilocytosis (manual Anisocytosis (manual) Microcytosis (manual) Macrocytosis (manual) Spherocytes Sickle Cells Target Cells Stomatocytes Schistocytes Retic Count 11.71 H* (0.5-1.5) % PT (9.9-11.8) Seconds INR (0.93-1.08) pCO2 (35-45) mm/Hg pO2 (80-100) mm/Hg HCO3 (21-28) mmol/L ABG pH (7.35-7.45) ABG Total CO2 (22-28) mmol.L ABG O2 Saturation (95-98) % ABG O2 Content (15-23) ML/dl ABG Base Excess (-2.0-3.0) mmol/L ABG Hemoglobin (11.7-17.4) g/dL ABG Carboxyhemoglobin (0.5-1.5) % POC ABG HHb (Measured) (0-5) % ABG Methemoglobin (0.0-3.0) % ABG O2 Capacity (16-24) mL/dl ABG Potassium (3.6-5.2) mmol/L Hgb O2 Saturation (95.0-98.0) % Glucose (65-105) mg/dl Lactate (0.7-2.1) mmol/L FiO2 % Sodium 136 (132-148) mmol/L Potassium 4.7 (3.6-5.0) mmol/L Chloride 95 L (98-107) mmol/L Carbon Dioxide 18 L (21-33) mmol/L Anion Gap 28 H (10-20) BUN 39 H (7-21) mg/dL Creatinine 2.5 H (0.5-1.4) mg/dL Est GFR ( Amer) 26 Est GFR (Non-Af Amer) 22 POC Glucose (mg/dL) 177 H (65-110) mg/dL Random Glucose 150 H (70-110) mg/dL Calcium 7.6 L (8.4-10.5) mg/dL Phosphorus (2.5-4.5) mg/dL Magnesium (1.7-2.2) mg/dL Total Bilirubin 25.7 H* (0.2-1.3) mg/dL AST 2820 H (14-36) U/L ALT 339 H (7-56) U/L Alkaline Phosphatase 311 H (38-126) U/L Total Protein 7.6 (5.8-8.3) g/dL Albumin 3.3 (3.0-4.8) g/dL Globulin 4.3 gm/dL Albumin/Globulin Ratio 0.8 L (1.1-1.8) Arterial Blood Potassium (3.6-5.2) mmol/L Random Vancomycin (20.0-40.0) ug/mL Blood Type Antibody Screen Crossmatch BBK History Checked 11/17/16 11/17/16 11/17/16 Range/Units 16:00 13:31 07:45 WBC 42.2 H* (4.5-11.0) 10^3/ul RBC 1.38 L (3.5-6.1) 10^6/uL Hgb 5.1 L* (12.0-16.0) g/dL Hct 14.2 L* (36.0-48.0) % MCV 102.9 (80.0-105.0) fl MCH 37.0 H (25.0-35.0) pg MCHC 35.9 (31.0-37.0) g/dl RDW 25.3 H (11.5-14.5) % Plt Count 123 (120.0-450.0) 10^3/uL MPV 10.9 (7.0-11.0) fl Gran % Lymph % (Auto) Butts % (Auto) Eos % (Auto) Baso % (Auto) Gran # Lymph # Butts # Eos # Baso # Corrected WBC (Man) 6.2 (4.5-11.0) K/mm3 Neutrophils % (Manual) 61 (50.0-70.0) % Band Neutrophils % 9 H (0-2) % Lymphocytes % (Manual) 19 L (22.0-35.0) % Monocytes % (Manual) 4 (1.0-6.0) % Eosinophils % (Manual) 1 (0.0-3.0) % Metamyelocytes % 1 % Myelocytes % 5 % Nucleated RBC % 583 % Platelet Evaluation Normal (NORMAL) Large Platelets Present Hypochromasia 2+ Poikilocytosis (manual Anisocytosis (manual) 1+ Microcytosis (manual) 2+ Macrocytosis (manual) Slight Spherocytes Slight Sickle Cells 1+ Target Cells 1+ Stomatocytes Slight Schistocytes Slight Retic Count (0.5-1.5) % PT (9.9-11.8) Seconds INR (0.93-1.08) pCO2 26 L (35-45) mm/Hg pO2 148.0 H (80-100) mm/Hg HCO3 11.7 L (21-28) mmol/L ABG pH 7.26 L (7.35-7.45) ABG Total CO2 12.5 L (22-28) mmol.L ABG O2 Saturation 103.3 H (95-98) % ABG O2 Content 7.3 L (15-23) ML/dl ABG Base Excess -14.1 L (-2.0-3.0) mmol/L ABG Hemoglobin 5.1 L (11.7-17.4) g/dL ABG Carboxyhemoglobin 3.9 H (0.5-1.5) % POC ABG HHb (Measured) -3.1 L (0-5) % ABG Methemoglobin 2.4 (0.0-3.0) % ABG O2 Capacity 7.1 L (16-24) mL/dl ABG Potassium (3.6-5.2) mmol/L Hgb O2 Saturation 96.8 (95.0-98.0) % Glucose (65-105) mg/dl Lactate (0.7-2.1) mmol/L FiO2 100.0 % Sodium (132-148) mmol/L Potassium (3.6-5.0) mmol/L Chloride (98-107) mmol/L Carbon Dioxide (21-33) mmol/L Anion Gap (10-20) BUN (7-21) mg/dL Creatinine (0.5-1.4) mg/dL Est GFR ( Amer) Est GFR (Non-Af Amer) POC Glucose (mg/dL) 169 H (65-110) mg/dL Random Glucose (70-110) mg/dL Calcium (8.4-10.5) mg/dL Phosphorus (2.5-4.5) mg/dL Magnesium (1.7-2.2) mg/dL Total Bilirubin (0.2-1.3) mg/dL AST (14-36) U/L ALT (7-56) U/L Alkaline Phosphatase (38-126) U/L Total Protein (5.8-8.3) g/dL Albumin (3.0-4.8) g/dL Globulin gm/dL Albumin/Globulin Ratio (1.1-1.8) Arterial Blood Potassium (3.6-5.2) mmol/L Random Vancomycin (20.0-40.0) ug/mL Blood Type Antibody Screen Crossmatch BBK History Checked 11/17/16 11/17/16 11/17/16 Range/Units 07:43 06:30 06:30 WBC (4.5-11.0) 10^3/ul RBC (3.5-6.1) 10^6/uL Hgb (12.0-16.0) g/dL Hct (36.0-48.0) % MCV (80.0-105.0) fl MCH (25.0-35.0) pg MCHC (31.0-37.0) g/dl RDW (11.5-14.5) % Plt Count (120.0-450.0) 10^3/uL MPV (7.0-11.0) fl Gran % TEST NOT PERFORMED Lymph % (Auto) TEST NOT PERFORMED Butts % (Auto) TEST NOT PERFORMED Eos % (Auto) TEST NOT PERFORMED Baso % (Auto) TEST NOT PERFORMED Gran # TEST NOT PERFORMED Lymph # TEST NOT PERFORMED Butts # TEST NOT PERFORMED Eos # TEST NOT PERFORMED Baso # TEST NOT PERFORMED Corrected WBC (Man) 7.8 (4.5-11.0) K/mm3 Neutrophils % (Manual) 74 H (50.0-70.0) % Band Neutrophils % 1 (0-2) % Lymphocytes % (Manual) 15 L (22.0-35.0) % Monocytes % (Manual) 4 (1.0-6.0) % Eosinophils % (Manual) (0.0-3.0) % Metamyelocytes % % Myelocytes % 6 % Nucleated RBC % 441 % Platelet Evaluation Low (NORMAL) Large Platelets Hypochromasia Poikilocytosis (manual 2+ Anisocytosis (manual) 2+ Microcytosis (manual) Macrocytosis (manual) 2+ Spherocytes Sickle Cells 2+ Target Cells Stomatocytes Schistocytes Retic Count (0.5-1.5) % PT (9.9-11.8) Seconds INR (0.93-1.08) pCO2 27 L (35-45) mm/Hg pO2 79.0 L (80-100) mm/Hg HCO3 11.3 L (21-28) mmol/L ABG pH 7.23 L (7.35-7.45) ABG Total CO2 12.1 L (22-28) mmol.L ABG O2 Saturation 100.9 H (95-98) % ABG O2 Content 7.9 L (15-23) ML/dl ABG Base Excess -14.9 L (-2.0-3.0) mmol/L ABG Hemoglobin 5.9 L (11.7-17.4) g/dL ABG Carboxyhemoglobin 5.5 H (0.5-1.5) % POC ABG HHb (Measured) -0.8 L (0-5) % ABG Methemoglobin 1.9 (0.0-3.0) % ABG O2 Capacity 7.8 L (16-24) mL/dl ABG Potassium (3.6-5.2) mmol/L Hgb O2 Saturation 93.3 L (95.0-98.0) % Glucose (65-105) mg/dl Lactate (0.7-2.1) mmol/L FiO2 32.0 % Sodium 136 (132-148) mmol/L Potassium 5.6 H* (3.6-5.0) mmol/L Chloride 97 L (98-107) mmol/L Carbon Dioxide 12 L (21-33) mmol/L Anion Gap 33 H (10-20) BUN 36 H (7-21) mg/dL Creatinine 2.6 H (0.5-1.4) mg/dL Est GFR ( Amer) 25 Est GFR (Non-Af Amer) 21 POC Glucose (mg/dL) (65-110) mg/dL Random Glucose 103 (70-110) mg/dL Calcium 8.1 L (8.4-10.5) mg/dL Phosphorus 7.7 H (2.5-4.5) mg/dL Magnesium 1.7 (1.7-2.2) mg/dL Total Bilirubin 28.1 H* (0.2-1.3) mg/dL AST 2932 H (14-36) U/L ALT 375 H (7-56) U/L Alkaline Phosphatase 289 H D (38-126) U/L Total Protein 8.5 H (5.8-8.3) g/dL Albumin 3.8 (3.0-4.8) g/dL Globulin 4.7 gm/dL Albumin/Globulin Ratio 0.8 L (1.1-1.8) Arterial Blood Potassium (3.6-5.2) mmol/L Random Vancomycin (20.0-40.0) ug/mL Blood Type Antibody Screen Crossmatch BBK History Checked 11/17/16 11/16/16 Range/Units 05:35 20:00 WBC (4.5-11.0) 10^3/ul RBC (3.5-6.1) 10^6/uL Hgb (12.0-16.0) g/dL Hct (36.0-48.0) % MCV (80.0-105.0) fl MCH (25.0-35.0) pg MCHC (31.0-37.0) g/dl RDW (11.5-14.5) % Plt Count (120.0-450.0) 10^3/uL MPV (7.0-11.0) fl Gran % Lymph % (Auto) Butts % (Auto) Eos % (Auto) Baso % (Auto) Gran # Lymph # Butts # Eos # Baso # Corrected WBC (Man) (4.5-11.0) K/mm3 Neutrophils % (Manual) (50.0-70.0) % Band Neutrophils % (0-2) % Lymphocytes % (Manual) (22.0-35.0) % Monocytes % (Manual) (1.0-6.0) % Eosinophils % (Manual) (0.0-3.0) % Metamyelocytes % % Myelocytes % % Nucleated RBC % % Platelet Evaluation (NORMAL) Large Platelets Hypochromasia Poikilocytosis (manual Anisocytosis (manual) Microcytosis (manual) Macrocytosis (manual) Spherocytes Sickle Cells Target Cells Stomatocytes Schistocytes Retic Count (0.5-1.5) % PT (9.9-11.8) Seconds INR (0.93-1.08) pCO2 (35-45) mm/Hg pO2 (80-100) mm/Hg HCO3 (21-28) mmol/L ABG pH (7.35-7.45) ABG Total CO2 (22-28) mmol.L ABG O2 Saturation (95-98) % ABG O2 Content (15-23) ML/dl ABG Base Excess (-2.0-3.0) mmol/L ABG Hemoglobin (11.7-17.4) g/dL ABG Carboxyhemoglobin (0.5-1.5) % POC ABG HHb (Measured) (0-5) % ABG Methemoglobin (0.0-3.0) % ABG O2 Capacity (16-24) mL/dl ABG Potassium (3.6-5.2) mmol/L Hgb O2 Saturation (95.0-98.0) % Glucose (65-105) mg/dl Lactate (0.7-2.1) mmol/L FiO2 % Sodium (132-148) mmol/L Potassium (3.6-5.0) mmol/L Chloride (98-107) mmol/L Carbon Dioxide (21-33) mmol/L Anion Gap (10-20) BUN (7-21) mg/dL Creatinine (0.5-1.4) mg/dL Est GFR ( Amer) Est GFR (Non-Af Amer) POC Glucose (mg/dL) 122 H (65-110) mg/dL Random Glucose (70-110) mg/dL Calcium (8.4-10.5) mg/dL Phosphorus (2.5-4.5) mg/dL Magnesium (1.7-2.2) mg/dL Total Bilirubin (0.2-1.3) mg/dL AST (14-36) U/L ALT (7-56) U/L Alkaline Phosphatase (38-126) U/L Total Protein (5.8-8.3) g/dL Albumin (3.0-4.8) g/dL Globulin gm/dL Albumin/Globulin Ratio (1.1-1.8) Arterial Blood Potassium (3.6-5.2) mmol/L Random Vancomycin (20.0-40.0) ug/mL Blood Type B POSITIVE Antibody Screen Negative Crossmatch See Detail BBK History Checked Patient has bt Laboratory Results - last 24 hr 09/23/17 09/24/17 09/24/17 20:00 05:35 06:30 WBC RBC Hgb Hct MCV MCH MCHC RDW Plt Count MPV Gran % TEST NOT PERFORMED Lymph % (Auto) TEST NOT PERFORMED Butts % (Auto) TEST NOT PERFORMED Eos % (Auto) TEST NOT PERFORMED Baso % (Auto) TEST NOT PERFORMED Gran # TEST NOT PERFORMED Lymph # TEST NOT PERFORMED Butts # TEST NOT PERFORMED Eos # TEST NOT PERFORMED Baso # TEST NOT PERFORMED Corrected WBC (Man) 7.8 Neutrophils % (Manual) 74 H Band Neutrophils % 1 Lymphocytes % (Manual) 15 L Monocytes % (Manual) 4 Eosinophils % (Manual) Metamyelocytes % Myelocytes % 6 Nucleated RBC % 441 Platelet Evaluation Low Large Platelets Hypochromasia Poikilocytosis (manual 2+ Anisocytosis (manual) 2+ Microcytosis (manual) Macrocytosis (manual) 2+ Spherocytes Sickle Cells 2+ Target Cells Stomatocytes Schistocytes Retic Count PT INR pCO2 pO2 HCO3 ABG pH ABG Total CO2 ABG O2 Saturation ABG O2 Content ABG Base Excess ABG Hemoglobin ABG Carboxyhemoglobin POC ABG HHb (Measured) ABG Methemoglobin ABG O2 Capacity ABG Potassium Hgb O2 Saturation Glucose Lactate FiO2 Sodium Potassium Chloride Carbon Dioxide Anion Gap BUN Creatinine Est GFR ( Amer) Est GFR (Non-Af Amer) POC Glucose (mg/dL) 122 H Random Glucose Calcium Phosphorus Magnesium Total Bilirubin AST ALT Alkaline Phosphatase Total Protein Albumin Globulin Albumin/Globulin Ratio Arterial Blood Potassium Random Vancomycin Blood Type B POSITIVE Antibody Screen Negative Crossmatch See Detail BBK History Checked Patient has bt 11/17/16 11/17/16 11/17/16 06:30 07:43 07:45 WBC RBC Hgb Hct MCV MCH MCHC RDW Plt Count MPV Gran % Lymph % (Auto) Butts % (Auto) Eos % (Auto) Baso % (Auto) Gran # Lymph # Butts # Eos # Baso # Corrected WBC (Man) Neutrophils % (Manual) Band Neutrophils % Lymphocytes % (Manual) Monocytes % (Manual) Eosinophils % (Manual) Metamyelocytes % Myelocytes % Nucleated RBC % Platelet Evaluation Large Platelets Hypochromasia Poikilocytosis (manual Anisocytosis (manual) Microcytosis (manual) Macrocytosis (manual) Spherocytes Sickle Cells Target Cells Stomatocytes Schistocytes Retic Count PT INR pCO2 27 L pO2 79.0 L HCO3 11.3 L ABG pH 7.23 L ABG Total CO2 12.1 L ABG O2 Saturation 100.9 H ABG O2 Content 7.9 L ABG Base Excess -14.9 L ABG Hemoglobin 5.9 L ABG Carboxyhemoglobin 5.5 H POC ABG HHb (Measured) -0.8 L ABG Methemoglobin 1.9 ABG O2 Capacity 7.8 L ABG Potassium Hgb O2 Saturation 93.3 L Glucose Lactate FiO2 32.0 Sodium 136 Potassium 5.6 H* Chloride 97 L Carbon Dioxide 12 L Anion Gap 33 H BUN 36 H Creatinine 2.6 H Est GFR ( Amer) 25 Est GFR (Non-Af Amer) 21 POC Glucose (mg/dL) 169 H Random Glucose 103 Calcium 8.1 L Phosphorus 7.7 H Magnesium 1.7 Total Bilirubin 28.1 H* AST 2932 H ALT 375 H Alkaline Phosphatase 289 H D Total Protein 8.5 H Albumin 3.8 Globulin 4.7 Albumin/Globulin Ratio 0.8 L Arterial Blood Potassium Random Vancomycin Blood Type Antibody Screen Crossmatch BBK History Checked 11/17/16 11/17/16 11/17/16 13:31 16:00 16:00 WBC 42.2 H* RBC 1.38 L Hgb 5.1 L* Hct 14.2 L* MCV 102.9 MCH 37.0 H MCHC 35.9 RDW 25.3 H Plt Count 123 MPV 10.9 Gran % Lymph % (Auto) Butts % (Auto) Eos % (Auto) Baso % (Auto) Gran # Lymph # Butts # Eos # Baso # Corrected WBC (Man) 6.2 Neutrophils % (Manual) 61 Band Neutrophils % 9 H Lymphocytes % (Manual) 19 L Monocytes % (Manual) 4 Eosinophils % (Manual) 1 Metamyelocytes % 1 Myelocytes % 5 Nucleated RBC % 583 Platelet Evaluation Normal Large Platelets Present Hypochromasia 2+ Poikilocytosis (manual Anisocytosis (manual) 1+ Microcytosis (manual) 2+ Macrocytosis (manual) Slight Spherocytes Slight Sickle Cells 1+ Target Cells 1+ Stomatocytes Slight Schistocytes Slight Retic Count PT INR pCO2 26 L pO2 148.0 H HCO3 11.7 L ABG pH 7.26 L ABG Total CO2 12.5 L ABG O2 Saturation 103.3 H ABG O2 Content 7.3 L ABG Base Excess -14.1 L ABG Hemoglobin 5.1 L ABG Carboxyhemoglobin 3.9 H POC ABG HHb (Measured) -3.1 L ABG Methemoglobin 2.4 ABG O2 Capacity 7.1 L ABG Potassium Hgb O2 Saturation 96.8 Glucose Lactate FiO2 100.0 Sodium 136 Potassium 4.7 Chloride 95 L Carbon Dioxide 18 L Anion Gap 28 H BUN 39 H Creatinine 2.5 H Est GFR ( Amer) 26 Est GFR (Non-Af Amer) 22 POC Glucose (mg/dL) Random Glucose 150 H Calcium 7.6 L Phosphorus Magnesium Total Bilirubin 25.7 H* AST 2820 H ALT 339 H Alkaline Phosphatase 311 H Total Protein 7.6 Albumin 3.3 Globulin 4.3 Albumin/Globulin Ratio 0.8 L Arterial Blood Potassium Random Vancomycin Blood Type Antibody Screen Crossmatch BBK History Checked 11/17/16 11/17/16 11/17/16 16:00 16:04 18:30 WBC RBC Hgb Hct MCV MCH MCHC RDW Plt Count MPV Gran % Lymph % (Auto) Butts % (Auto) Eos % (Auto) Baso % (Auto) Gran # Lymph # Butts # Eos # Baso # Corrected WBC (Man) Neutrophils % (Manual) Band Neutrophils % Lymphocytes % (Manual) Monocytes % (Manual) Eosinophils % (Manual) Metamyelocytes % Myelocytes % Nucleated RBC % Platelet Evaluation Large Platelets Hypochromasia Poikilocytosis (manual Anisocytosis (manual) Microcytosis (manual) Macrocytosis (manual) Spherocytes Sickle Cells Target Cells Stomatocytes Schistocytes Retic Count 11.71 H* PT INR pCO2 43 pO2 27.0 L* HCO3 21.2 ABG pH 7.30 L ABG Total CO2 22.5 ABG O2 Saturation 52.7 L ABG O2 Content 3.4 L ABG Base Excess -4.7 L ABG Hemoglobin 4.9 L ABG Carboxyhemoglobin 4.8 H POC ABG HHb (Measured) 44.3 H ABG Methemoglobin 1.6 ABG O2 Capacity 6.5 L ABG Potassium Hgb O2 Saturation 49.4 L Glucose Lactate FiO2 60.0 Sodium Potassium Chloride Carbon Dioxide Anion Gap BUN Creatinine Est GFR ( Amer) Est GFR (Non-Af Amer) POC Glucose (mg/dL) 177 H Random Glucose Calcium Phosphorus Magnesium Total Bilirubin AST ALT Alkaline Phosphatase Total Protein Albumin Globulin Albumin/Globulin Ratio Arterial Blood Potassium Random Vancomycin Blood Type Antibody Screen Crossmatch BBK History Checked 11/17/16 11/18/16 11/18/16 21:45 03:05 06:30 WBC 9.6 D 14.7 H D RBC 2.78 L 3.09 L Hgb 8.5 L D 9.4 L Hct 24.2 L 26.4 L MCV 87.1 D 85.4 MCH 30.6 30.4 MCHC 35.1 35.6 RDW 15.2 H 15.4 H Plt Count 32 L* 40 L* MPV 9.7 9.3 Gran % Lymph % (Auto) Butts % (Auto) Eos % (Auto) Baso % (Auto) 0.8 Gran # Lymph # Butts # Eos # Baso # 0.08 Corrected WBC (Man) Neutrophils % (Manual) Band Neutrophils % Lymphocytes % (Manual) Monocytes % (Manual) Eosinophils % (Manual) Metamyelocytes % Myelocytes % Nucleated RBC % Platelet Evaluation Large Platelets Hypochromasia Poikilocytosis (manual Anisocytosis (manual) Microcytosis (manual) Macrocytosis (manual) Spherocytes Sickle Cells Target Cells Stomatocytes Schistocytes Retic Count PT INR pCO2 pO2 HCO3 ABG pH ABG Total CO2 ABG O2 Saturation ABG O2 Content ABG Base Excess ABG Hemoglobin ABG Carboxyhemoglobin POC ABG HHb (Measured) ABG Methemoglobin ABG O2 Capacity ABG Potassium Hgb O2 Saturation Glucose Lactate FiO2 Sodium Potassium Chloride Carbon Dioxide Anion Gap BUN Creatinine Est GFR ( Amer) Est GFR (Non-Af Amer) POC Glucose (mg/dL) Random Glucose Calcium Phosphorus Magnesium Total Bilirubin AST ALT Alkaline Phosphatase Total Protein Albumin Globulin Albumin/Globulin Ratio Arterial Blood Potassium Random Vancomycin 19.8 L Blood Type Antibody Screen Crossmatch BBK History Checked 11/18/16 11/18/16 06:30 06:55 WBC RBC Hgb Hct MCV MCH MCHC RDW Plt Count MPV Gran % Lymph % (Auto) Butts % (Auto) Eos % (Auto) Baso % (Auto) Gran # Lymph # Butts # Eos # Baso # Corrected WBC (Man) Neutrophils % (Manual) Band Neutrophils % Lymphocytes % (Manual) Monocytes % (Manual) Eosinophils % (Manual) Metamyelocytes % Myelocytes % Nucleated RBC % Platelet Evaluation Large Platelets Hypochromasia Poikilocytosis (manual Anisocytosis (manual) Microcytosis (manual) Macrocytosis (manual) Spherocytes Sickle Cells Target Cells Stomatocytes Schistocytes Retic Count PT 24.8 H INR 2.30 H pCO2 27 L pO2 224.0 H HCO3 22.6 ABG pH 7.53 H ABG Total CO2 23.4 ABG O2 Saturation 101.6 H ABG O2 Content ABG Base Excess 1.1 ABG Hemoglobin ABG Carboxyhemoglobin POC ABG HHb (Measured) ABG Methemoglobin ABG O2 Capacity ABG Potassium 4.2 Hgb O2 Saturation Glucose 114 H Lactate 4.8 H* FiO2 100.0 Sodium 135.0 Potassium Chloride 106.0 Carbon Dioxide Anion Gap BUN Creatinine Est GFR ( Amer) Est GFR (Non-Af Amer) POC Glucose (mg/dL) Random Glucose Calcium Phosphorus Magnesium Total Bilirubin AST ALT Alkaline Phosphatase Total Protein Albumin Globulin Albumin/Globulin Ratio Arterial Blood Potassium 4.2 Random Vancomycin Blood Type Antibody Screen Crossmatch BBK History Checked EKG/Cardiology Studies: Cardiology / EKG Studies 11/17/16 10:50 EKG [ELECTROCARDIOGRAM] Stat Comment: Reason For Exam: HYPERKALEMIA Fingerstick Blood Sugar Results: 96
--- NOTE | 2016-11-18 07:45 | RAD ---
HISTORY: s/p left fem hemodialysis catheter placement COMPARISON: Abdomen KUB 08/02/2011 FINDINGS: BOWEL: Normal. No obstruction. No free air. Note, the apparatus not completely exclude in this examination. A left femoral central venous dialysis catheter placed with the tip terminating at the likely left distal common iliac vein. BONES: Diffuse osteopenia suggests osteoporosis. OTHER FINDINGS: Surgical clips in the right upper quadrant abdomen as well as of the right pelvis soft tissues. IMPRESSION: Status post left femoral central venous dialysis catheter placement with tip terminating at the distal common femoral vein region. No bowel obstruction or gross free air. Upper abdomen not completely included in this examination.
[2016-11-18 07:50] LABS: BILIRUBIN,TOTAL 19.9 mg/dL (0.2-1.3); CALCIUM 6.9 mg/dL (8.4-10.5)
--- NOTE | 2016-11-18 08:22 | RAD ---
HISTORY: intubated,f/u COMPARISON: Portable chest 11/17/2016 2:40 p.m.. FINDINGS: Right-sided chest port is unchanged in position. LUNGS: Interval left sided atelectasis or infiltrate is seen at the left side of the heart extending inferiorly and laterally history left hemidiaphragm at its mid to medial segment. Diminished right perihilar patchy density is seen with remaining right lung clear grossly though the lungs are at a late stage of expiration. PLEURA: Trace left pleural effusion appears to be developing. None is seen at the right and there is no pneumothorax bilaterally. CARDIOVASCULAR: Prominent cardiac silhouette remains. No pulmonary vascular derangement however. OSSEOUS STRUCTURES: No significant abnormalities. VISUALIZED UPPER ABDOMEN: Normal. OTHER FINDINGS: None. IMPRESSION: Mild interval worsening particularly at the left perihilar and basilar regions reflecting atelectasis or infiltrate with diminished right perihilar patchy and atelectasis or infiltrate. Prominent cardiac silhouette remains though partially obscured in the left side.
[2016-11-18 08:32] LABS: BAND 1 % (0-2); METAMYELOCYTE 1 %; MYELOCYTE 3 %; NEUTROPHIL 78 % (50.0-70.0)
[2016-11-18 08:34] LABS: CORRECTED WBC 1.7 K/mm3 (4.5-11.0); HYPOCHROMIA 2+; NUCLEATED RED BLOOD CELL 480 %; PLATELET ESTIMATE LOW (NORMAL); POLYCHROMASIA SLIGHT
[2016-11-18 08:35] LABS: ANISOCYTOSIS 2+; POIKILOCYTOSIS 1+
[2016-11-18 08:36] LABS: BURR CELLS 1+; OVALOCYTES 1+; TARGET CELLS SLIGHT; TEAR DROP CELLS SLIGHT
--- NOTE | 2016-11-18 08:50 | CP.PCM.PN ---
Subjective - Date & Time of Evaluation Date of Evaluation: 11/17/16 Time of Evaluation: 12:00 - Subjective Subjective: called to bedside by Dr. Delgadillo to intubate patient with impending respiratory failure DESCRIPTION OF PROCEDURE IN DETAIL The patient was lying in the supine position. The patient had continuous cardiac as well as pulse oximetry monitoring during the procedure. Rapid sequence induction was provided by administration of propofol followed by rocuronium. Laryngoscope was used to directly visualize the vocal cords. A 7.5mm endotracheal tube was visualized advancing between the cords to a level of 21cm at the lip. The sylette was then removed and discarded. Tube placement was also noted by fogging in the tube, equal and bilateral breath sounds, no sounds over the epigastrium, and end-tidal colorimetric monitoring. The cuff was inflated with 10ccs of air and the tube secured using a commercially available device. Tube placement was further confirmed via glydascope direct vizualization of ETT between the cords. A good pulse oximetry wave form was seen on the monitor throughout the procedure. The patient was then connected to the ventilator per Dr. Delgadillo's orders. F/u CXR and vent settings per food and nutrition professor's orders as well. patient remained on passive oxygenation, NC throughout the procedure. Objective - Vital Signs/Intake and Output Vital Signs (last 24 hours): Temp Pulse Resp BP Pulse Ox 97.9 F 92 H 17 81/57 L 95 11/18/16 08:11 11/18/16 08:11 11/18/16 08:11 11/18/16 08:11 11/18/16 06:00 Intake and Output: 11/18/16 11/18/16 06:59 18:59 Intake Total 500 0 Output Total 300 Balance 200 0 - Medications Medications: Current Medications Albuterol/Ipratropium (Duoneb 3 Mg/0.5 Mg (3 Ml) Ud) 3 ml IH [id number] [facility] Last Admin: 11/18/16 07:27 Dose: 3 ml Budesonide (Pulmicort Respules) 0.5 mg IH [id number] [facility] Last Admin: 11/18/16 07:27 Dose: 0.5 mg Ergocalciferol (Drisdol 50,000 Intl Units Cap) 1 cap PO QWK [facility] Last Admin: 11/12/16 09:20 Dose: 1 cap Folic Acid (Folic Acid) 1 mg PO DAILY [facility] Last Admin: 11/17/16 19:43 Dose: Not Given Furosemide (Lasix) 40 mg IVP DAILY [facility] Last Admin: 11/17/16 09:00 Dose: 40 mg Heparin Sodium (Porcine) (Heparin) 5,000 units SC Q12 ARLETTE PRN Reason: Protocol Last Admin: 11/16/16 21:44 Dose: Not Given Hydromorphone HCl (Dilaudid) 1 mg IVP Q3H PRN PRN Reason: Pain, severe (8-10) Last Admin: 11/17/16 04:29 Dose: 1 mg Hydroxyurea (Hydrea) 500 mg PO DAILY [facility] Last Admin: 11/17/16 19:44 Dose: Not Given Vancomycin HCl (Vancomycin 1gm) 1 gm in 250 mls @ 167 mls/hr IVPB DAILY [facility] PRN Reason: Protocol Last Admin: 11/17/16 09:30 Dose: 167 mls/hr Cefepime HCl (Maxipime 1gm) 1 gm in 100 mls @ 100 mls/hr IVPB Q24H [facility]LETTE PRN Reason: Protocol Last Admin: 11/17/16 12:00 Dose: 100 mls/hr Dextrose (Dextrose 10% In Water) 500 mls @ 20 mls/hr IV .Q24H [facility] Last Admin: 11/17/16 18:30 Dose: 20 mls/hr Sodium Bicarbonate 150 meq/ (Dextrose) 1,150 mls @ 125 mls/hr IV .Q9H12M [facility] Last Admin: 11/17/16 18:00 Dose: 125 mls/hr Propofol (Diprivan) 1,000 mg in 100 mls @ 2.259 mls/hr IV .Q24H PRN; Protocol; 5 MCG/KG/MIN PRN Reason: TITRATE PER MD ORDER Last Titration: 11/18/16 06:00 Dose: 15 mcg/kg/min, 6.777 mls/hr NOREPINEPHRINE BIT/0.9 % NACL (Levophed 4 Mg/ 250 Ml Ns Premixed) 4 mg in 250 mls @ 15 mls/hr IV .[id number] PRN; Protocol; 4 MCG/MIN PRN Reason: TITRATE PER MD ORDER Last Admin: 11/18/16 06:46 Dose: 4 mcg/min, 15 mls/hr Lactic Acid (Lac-Hydrin 12% Cream (140 G)) 0 ea TOP DAILY PRN PRN Reason: Wound Lactulose (Enulose) 20 gm PO BID [facility] Last Admin: 11/17/16 19:42 Dose: Not Given Midazolam HCl (Versed Inj) 1 mg IVP Q3H PRN PRN Reason: sedation Multivitamins/Minerals (Therapeutic-M Tab) 1 tab PO DAILY [facility] Last Admin: 11/17/16 19:44 Dose: Not Given Non-Formulary Medication (Mometasone [Asmanex Twisthaler 110 Mcg]) 100 mcg IH BID [facility] Last Admin: 11/15/16 21:20 Dose: Not Given Pantoprazole Sodium (Protonix Inj) 40 mg IVP DAILY [facility] Tramadol HCl (Ultram) 50 mg PO Q6 PRN PRN Reason: Pain, moderate (4-7) Last Admin: 11/16/16 09:01 Dose: 50 mg Vitamin A (Vitamin A & D Oint Ud Foilpak) 1 ea TOP Q8 PRN PRN Reason: Dry skin - Labs Labs: 11/18/16 06:30 11/18/16 06:30 PT 24.8 Seconds (9.9-11.8) H 11/18/16 06:30 INR 2.30 (0.93-1.08) H 11/18/16 06:30
--- NOTE | 2016-11-18 08:54 | PN ---
CLINICAL RESEARCH COORDINATOR NOTE DATE: 11/16/2016 SUBJECTIVE: The patient is resting in bed, complains of chest discomfort from her sickle cell disease. She is on O2 via nasal cannula. Does have occasional cough, phlegm and some congestion in her chest. No active nauseousness or vomiting this morning. Does have increased white count, but no active fever. PHYSICAL EXAMINATION: VITAL SIGNS: Her temperature is 97.5, pulse is 96, respirations are 18, and BP is 121/95. SKIN: Warm and dry. HEENT: Head atraumatic, normocephalic. Eyes reactive to light. Ear, nose and throat seemed to be within normal limits. NECK: Supple. No JVD. No thyroid enlargement. No lymph nodes. HEART: Has regular rate and rhythm. Normal S1 and S2. LUNGS: Reveal mild rhonchi bilaterally. ABDOMEN: Soft. Decreased bowel sounds. GENITALIA AND RECTAL: Deferred. MUSCULOSKELETAL: No joint deformities. EXTREMITIES: Reveal 1+ lower extremity edema. NEUROLOGICAL: She seems to be grossly intact. LABORATORY DATA: The patient's white count is 23.3, hemoglobin is 7.5, hematocrit 21.2, platelets of 127,000. Her CMP is pending, but the patient's glucose was 55 this morning. IMPRESSION: This patient presented with intractable vomiting. At this time, she is mildly hyponatremic. 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 The patient has increased white count, rule out sepsis and has a history of asthma as well. She has a history of cerebral palsy, bipolar disorder, congestive heart failure, and ejection fraction with cardiac status of 35 to 40% with tricuspid regurgitation and right ventricular systolic pressure of 45 resulting in some pulmonary hypertension. PLAN: We will continue with O2 via nasal cannula. I will order a chest x-ray this morning as well. The patient is started on DuoNeb on a q. 6 hours basis and added Pulmicort. We will monitor her urine output closely. She is on normal saline IV fluids at 125 mL an hour. The patient is being followed by Hematology and at this time the pain with the sickle cell is being treated with Dilaudid. She is on DuoNeb as well as subcu heparin and hydroxyurea. The patient is getting Lasix for appropriate diuresis and is on Maxipime and vancomycin for antibiotics. We will continue to treat aggressively along with the other consultants and the primary care doctor. Anish Delgadillo MD
[2016-11-18] MEDS ORDERED: Phytonadione 10 MG in Sodium Chloride 0.9% 50 ML IV ONE (09:59)
--- NOTE | 2016-11-18 10:48 | US ---
PROCEDURE: LIMITED ABDOMEN ULTRASOUND-RIGHT UPPER QUADRANT. HISTORY: evaluate for new onset ascites COMPARISON: TECHNIQUE: Limited transverse and sagittal images of the right upper quadrant was performed for evaluation of ascites. FINDINGS: Minimal perihepatic ascites identified as well as the perisplenic space. No prominent ascites appreciable. IMPRESSION: Minimal upper abdominal ascites as discussed above. No large volume of ascites identified.
[2016-11-18 11:38] LABS: VENOUS BLOOD GAS BASE EXCESS 3.7 mmol/L (0.0-2.0); VENOUS BLOOD PH 7.39 (7.32-7.43)
--- NOTE | 2016-11-18 12:11 | CP.PCM.PN ---
Subjective - Date & Time of Evaluation Date of Evaluation: 11/18/16 Time of Evaluation: 11:45 - Subjective Subjective: SURGERY PROGRESS NOTE FOR DR. PACE 36F seen and examined at bedside. Patient intubated and sedated in ICU. Objective - Vital Signs/Intake and Output Vital Signs (last 24 hours): Temp Pulse Resp BP Pulse Ox 98.5 F 95 H 17 95/70 L 95 11/18/16 10:26 11/18/16 10:34 11/18/16 10:26 11/18/16 10:30 11/18/16 06:00 Intake and Output: 11/18/16 11/18/16 06:59 18:59 Intake Total 500 33 Output Total 300 Balance 200 33 - Medications Medications: Current Medications Albuterol/Ipratropium (Duoneb 3 Mg/0.5 Mg (3 Ml) Ud) 3 ml IH [id number] [facility] Last Admin: 11/18/16 07:27 Dose: 3 ml Budesonide (Pulmicort Respules) 0.5 mg IH [id number] [facility] Last Admin: 11/18/16 07:27 Dose: 0.5 mg Ergocalciferol (Drisdol 50,000 Intl Units Cap) 1 cap PO QWK [facility] Last Admin: 11/12/16 09:20 Dose: 1 cap Folic Acid (Folic Acid) 1 mg PO DAILY [facility] Last Admin: 11/17/16 19:43 Dose: Not Given Furosemide (Lasix) 40 mg IVP DAILY [facility] Last Admin: 11/17/16 09:00 Dose: 40 mg Heparin Sodium (Porcine) (Heparin) 5,000 units SC Q12 ARLETTE PRN Reason: Protocol Last Admin: 11/16/16 21:44 Dose: Not Given Hydromorphone HCl (Dilaudid) 1 mg IVP Q3H PRN PRN Reason: Pain, severe (8-10) Last Admin: 11/17/16 04:29 Dose: 1 mg Hydroxyurea (Hydrea) 500 mg PO DAILY [facility] Last Admin: 11/17/16 19:44 Dose: Not Given Vancomycin HCl (Vancomycin 1gm) 1 gm in 250 mls @ 167 mls/hr IVPB DAILY [facility] PRN Reason: Protocol Last Admin: 11/17/16 09:30 Dose: 167 mls/hr Cefepime HCl (Maxipime 1gm) 1 gm in 100 mls @ 100 mls/hr IVPB Q24H [facility] PRN Reason: Protocol Last Admin: 11/17/16 12:00 Dose: 100 mls/hr Dextrose (Dextrose 10% In Water) 500 mls @ 20 mls/hr IV .Q24H [facility] Last Admin: 11/17/16 18:30 Dose: 20 mls/hr Sodium Bicarbonate 150 meq/ (Dextrose) 1,150 mls @ 125 mls/hr IV .Q9H12M [facility] Last Admin: 11/17/16 18:00 Dose: 125 mls/hr Propofol (Diprivan) 1,000 mg in 100 mls @ 2.259 mls/hr IV .Q24H PRN; Protocol; 5 MCG/KG/MIN PRN Reason: TITRATE PER MD ORDER Last Titration: 11/18/16 06:00 Dose: 15 mcg/kg/min, 6.777 mls/hr NOREPINEPHRINE BIT/0.9 % NACL (Levophed 4 Mg/ 250 Ml Ns Premixed) 4 mg in 250 mls @ 15 mls/hr IV .[id number] PRN; Protocol; 4 MCG/MIN PRN Reason: TITRATE PER MD ORDER Last Titration: 11/18/16 09:28 Dose: 5 mcg/min, 18.75 mls/hr Lactic Acid (Lac-Hydrin 12% Cream (140 G)) 0 ea TOP DAILY PRN PRN Reason: Wound Lactulose (Enulose) 20 gm PO BID [facility] Last Admin: 11/17/16 19:42 Dose: Not Given Midazolam HCl (Versed Inj) 1 mg IVP Q3H PRN PRN Reason: sedation Multivitamins/Minerals (Therapeutic-M Tab) 1 tab PO DAILY [facility] Last Admin: 11/17/16 19:44 Dose: Not Given Non-Formulary Medication (Mometasone [Asmanex Twisthaler 110 Mcg]) 100 mcg IH BID [facility] Last Admin: 11/15/16 21:20 Dose: Not Given Pantoprazole Sodium (Protonix Inj) 40 mg IVP DAILY [facility] Rifaximin (Xifaxan) 550 mg PO BID [facility] PRN Reason: Protocol Tramadol HCl (Ultram) 50 mg PO Q6 PRN PRN Reason: Pain, moderate (4-7) Last Admin: 11/16/16 09:01 Dose: 50 mg Vitamin A (Vitamin A & D Oint Ud Foilpak) 1 ea TOP Q8 PRN PRN Reason: Dry skin - Labs Labs: 11/18/16 06:30 11/18/16 06:30 PT 24.8 Seconds (9.9-11.8) H 11/18/16 06:30 INR 2.30 (0.93-1.08) H 11/18/16 06:30 - Constitutional Appears: In Acute Distress, Other (intubated) - Respiratory Exam Additional comments: intubated - Cardiovascular Exam Cardiovascular Exam: REGULAR RHYTHM, +S1, +S2 - Extremities Exam Additional comments: left femoral dialysis site CDI Assessment and Plan - Assessment and Plan (Free Text) Assessment: 36F s/p left femoral power trialysis catheter POD1 Plan: - Catheter site CDI - No further surgical intervention - Continue ICU management Discussed with Dr. Prateek Davis, PGY2
--- NOTE | 2016-11-18 12:37 | RAD ---
HISTORY: abdominal distention COMPARISON: Comparison made with prior plain film radiograph abdomen 11/17/2016 FINDINGS: Re- demonstrated is in situ left femoral vein dialysis catheter with tip overlying the level of the inferolateral corner L5 segment of BOWEL: No evidence acute mechanical bowel obstruction. BONES: Unremarkable. OTHER FINDINGS: None. IMPRESSION: No evidence of acute mechanical bowel obstruction. In situ dialysis catheter as above
[2016-11-18] MEDS: HYDROmorphone 0.5 mg/0.5 ml ISec IVP PRN (13:12)
[2016-11-18] MEDS: Cefepime 1gm in NS 100ml 1 GM/100 ML BAG IVPB SCH (13:15)
--- NOTE | 2016-11-18 14:39 | CP.CCUPN ---
<Polly Villanueva - Last Filed: 11/18/16 14:39> CCU Subjective - Physician Review Events Since Last Encounter (Free Text): 11/18/16 14:38 Intubated over the weekend, 6 units of FFP, 2 units of pRBC, exchange transfusion performed Subjective (Free Text): 11/18/16 14:39 Critical care progress note for Dr. Harris Villanueva, PGY-1 Pt S & E at bedside. Pt intubated, sedated, arousable to verbal and tactile stimuli. Started on levophed overnight 2/2 hypotension according to nursing. Critical Care Time Spent (in minutes): 35 CCU Objective - Vital Signs / Intake & Output Intake and Output (Last 8hrs): Intake & Output 11/17/16 11/18/16 11/18/16 22:59 06:59 14:59 Intake Total 375 125 33 Output Total 300 Balance 375 -175 33 Intake: IV 50 125 30 Blood Product 325 3 Apheresis Plts Acda Lr 2 Irr Unit [id number] Apheresis Plts Acda Lr 1 Irr 2nd Unit [id number] Red Blood Cells Cp2d As3 325 Lr Unit [id number] Output: Urine 300 2-way Urethral 300 Other: # Bowel Movements 2 - Physical Exam Head: Positive for: Atraumatic, Normocephalic Extroacular Muscles: Positive for: EOMI Conjunctiva: Positive for: Icteric. Negative for: Normal Mouth: Positive for: Dry, Other (dried blood at lip line, ET in place). Negative for: Moist Mucous Membranes, Normal Tounge (small lac on underside of tongue), Normal Teeth (poor dentition) Nose (External): Positive for: Atraumatic Neck: Positive for: Trachea Midline Respiratory/Chest: Positive for: Good Air Exchange, Rhonchi, Other (R port in place- clean and dry ). Negative for: Clear to Auscultation (Coarse expiratory breath sounds), Respiratory Distress, Accessory Muscle Use, Wheezes, Rales, Retracting Cardiovascular: Positive for: Regular Rate and Rhythm, Normal S1, S2. Negative for: Murmurs Abdomen: Negative for: Tenderness, Distention (firm), Normal Bowel Sounds ( decreased), Peritoneal Signs, Rebound, Guarding, Hernias Upper Extremity: Positive for: Normal Inspection. Negative for: Cyanosis, Edema Lower Extremity: Positive for: Edema. Negative for: Normal Inspection (Left groin with HD TLC in place- dressing with saturated sanginous strike through, site continues to ooze) Neurological: Negative for: GCS=15 (intubated, sedated), CN II-XII Intact, Motor Func Grossly Intact Skin: Positive for: Warm, Dry, Normal Color. Negative for: Rashes Psychiatric: Positive for: Other (intubated, sedated unable to assess) - Medications Active Medications: Active Medications Generic Name Dose Route Start Last Admin Trade Name Freq PRN Reason Stop Dose Admin Albuterol/Ipratropium 3 ml 11/16/16 14:00 11/18/16 13:11 Duoneb 3 Mg/0.5 Mg (3 Ml) Ud IH 3 ml [id number] ARLETTE Administration Budesonide 0.5 mg 11/16/16 20:00 11/18/16 07:27 Pulmicort Respules IH 0.5 mg [id number] ARLETTE Administration Ergocalciferol 1 cap 11/12/16 10:00 11/12/16 09:20 Drisdol 50,000 Intl Units Cap PO 1 cap QWK ARLETTE Administration Folic Acid 1 mg 11/12/16 10:00 11/17/16 19:43 Folic Acid PO Not Given DAILY [facility] Furosemide 40 mg 11/16/16 10:00 11/17/16 09:00 Lasix IVP 40 mg DAILY ARLETTE Administration Heparin Sodium (Porcine) 5,000 units 11/13/16 01:15 11/16/16 21:44 Heparin SC Not Given Q12 [facility] Protocol Hydromorphone HCl 1 mg 11/15/16 11:24 11/18/16 13:12 Dilaudid IVP 1 mg Q3H PRN Administration Pain, severe (8-10) Hydroxyurea 500 mg 11/12/16 10:00 11/17/16 19:44 Hydrea PO Not Given DAILY [facility] Vancomycin HCl 1 gm in 250 mls @ 167 mls/hr 11/15/16 11:30 11/17/16 09:30 Vancomycin 1gm IVPB 167 mls/hr DAILY [facility] Administration Protocol Cefepime HCl 1 gm in 100 mls @ 100 mls/hr 11/15/16 13:15 11/18/16 13:15 Maxipime 1gm IVPB 100 mls/hr Q24H ARLETTE Administration Protocol Dextrose 500 mls @ 20 mls/hr 11/16/16 18:45 11/17/16 18:30 Dextrose 10% In Water IV 20 mls/hr .Q24H ARLETTE Administration Sodium Bicarbonate 150 meq/ 1,150 mls @ 125 mls/hr 11/16/16 23:15 11/17/16 18 :00 Dextrose IV 125 mls/hr .[id number] ARLETTE Administration Propofol 1,000 mg in 100 mls @ 2.259 mls/hr 11/17/16 20:53 11/18/16 06:00 Diprivan IV 15 mcg/kg/min .Q24H PRN 6.777 mls/hr TITRATE PER MD ORDER Titration Protocol 5 MCG/KG/MIN NOREPINEPHRINE BIT/0.9 % NACL 4 mg in 250 mls @ 15 mls/hr 11/18/16 06:33 09:28 Levophed 4 Mg/ 250 Ml Ns Premixed IV 5 mcg/min .[id number] PRN 18.75 mls/hr TITRATE PER MD ORDER Titration Protocol 4 MCG/MIN Lactic Acid 0 ea 11/13/16 09:22 Lac-Hydrin 12% Cream (140 G) TOP DAILY PRN Wound Lactulose 20 gm 11/16/16 10:00 11/17/16 19:42 Enulose PO Not Given BID ARLETTE Midazolam HCl 1 mg 11/17/16 17:29 Versed Inj IVP Q3H PRN sedation Multivitamins/Minerals 1 tab 11/12/16 11:30 11/17/16 19:44 Therapeutic-M Tab PO Not Given DAILY ARLETTE Non-Formulary Medication 100 mcg 11/13/16 10:00 11/15/16 21:20 Mometasone [Asmanex Twisthaler 110 Mcg] IH Not Given BID ARLETTE Pantoprazole Sodium 40 mg 11/18/16 12:00 11/18/16 13:14 Protonix Inj IVP 40 mg DAILY ARLETTE Administration Rifaximin 550 mg 11/18/16 10:15 Xifaxan PO BID ARLETTE Protocol Vitamin A 1 ea 11/16/16 10:18 11/18/16 13:21 Vitamin A & D Oint Ud Foilpak TOP 1 ea Q8 PRN Administration Dry skin - Patient Studies Lab Studies: Microbiology Studies 11/14/16 18:06 Blood Culture - Preliminary Blood-Venous NO GROWTH AFTER 3 DAYS 11/14/16 16:47 Blood Culture - Preliminary Blood-Venous NO GROWTH AFTER 3 DAYS 11/15/16 21:20 MRSA Culture (Admit) - Final Nose MRSA NOT DETECTED Lab Studies 11/18/16 11/18/16 11/18/16 Range/Units 11:34 11:34 11:34 WBC (4.5-11.0) 10^3/ul RBC (3.5-6.1) 10^6/uL Hgb (12.0-16.0) g/dL Hct (36.0-48.0) % MCV (80.0-105.0) fl MCH (25.0-35.0) pg MCHC (31.0-37.0) g/dl RDW (11.5-14.5) % Plt Count (120.0-450.0) 10^3/uL MPV (7.0-11.0) fl Baso % (Auto) (0.0-3.0) % Baso # (0.0-2.0) K/mm3 Corrected WBC (Man) (4.5-11.0) K/mm3 Neutrophils % (Manual) (50.0-70.0) % Band Neutrophils % (0-2) % Lymphocytes % (Manual) (22.0-35.0) % Monocytes % (Manual) (1.0-6.0) % Eosinophils % (Manual) (0.0-3.0) % Metamyelocytes % % Myelocytes % % Nucleated RBC % % Platelet Evaluation (NORMAL) Large Platelets Polychromasia Hypochromasia Poikilocytosis (manual Anisocytosis (manual) Microcytosis (manual) Macrocytosis (manual) Spherocytes Sickle Cells Target Cells Tear Drop Cells Ovalocytes Stomatocytes [place] Cells Schistocytes Retic Count (0.5-1.5) % PT (9.9-11.8) Seconds INR (0.93-1.08) pCO2 (35-45) mm/Hg pO2 65 H (80-100) mm/Hg HCO3 (21-28) mmol/L ABG pH (7.35-7.45) ABG Total CO2 (22-28) mmol.L ABG O2 Saturation (95-98) % ABG O2 Content (15-23) ML/dl ABG Base Excess (-2.0-3.0) mmol/L ABG Hemoglobin (11.7-17.4) g/dL ABG Carboxyhemoglobin (0.5-1.5) % POC ABG HHb (Measured) (0-5) % ABG Methemoglobin (0.0-3.0) % ABG O2 Capacity (16-24) mL/dl ABG Potassium (3.6-5.2) mmol/L VBG pH 7.39 (7.32-7.43) VBG pCO2 49.0 (40-60) VBG HCO3 29.7 H (21-28) mmol/l VBG Total CO2 31.2 H (22-28) mmol.L VBG O2 Sat (Calc) 98.9 H (40-65) % VBG Base Excess 3.7 H (0.0-2.0) mmol/L VBG Potassium 3.7 (3.6-5.2) mmol/L Hgb O2 Saturation (95.0-98.0) % Glucose 131 H (65-105) mg/dl Lactate 5.8 H* (0.7-2.1) mmol/L FiO2 21.0 % Sodium 134.0 (132-148) mmol/L Potassium (3.6-5.0) mmol/L Chloride 96.0 L (98-107) mmol/L Carbon Dioxide (21-33) mmol/L Anion Gap (10-20) BUN (7-21) mg/dL Creatinine (0.5-1.4) mg/dL Est GFR ( Amer) Est GFR (Non-Af Amer) POC Glucose (mg/dL) (65-110) mg/dL Random Glucose (70-110) mg/dL Calcium (8.4-10.5) mg/dL Total Bilirubin (0.2-1.3) mg/dL AST (14-36) U/L ALT (7-56) U/L Alkaline Phosphatase (38-126) U/L Ammonia 23 (9-33) umol/L Total Protein (5.8-8.3) g/dL Albumin (3.0-4.8) g/dL Globulin gm/dL Albumin/Globulin Ratio (1.1-1.8) Arterial Blood Potassium (3.6-5.2) mmol/L Venous Blood Potassium 3.7 (3.6-5.2) mmol/L Vancomycin Trough 21.3 H* (5.0-10.0) ug/mL Random Vancomycin (20.0-40.0) ug/mL Blood Type Antibody Screen Crossmatch BBK History Checked 11/18/16 11/18/16 11/18/16 Range/Units 11:10 06:55 06:30 WBC (4.5-11.0) 10^3/ul RBC (3.5-6.1) 10^6/uL Hgb (12.0-16.0) g/dL Hct (36.0-48.0) % MCV (80.0-105.0) fl MCH (25.0-35.0) pg MCHC (31.0-37.0) g/dl RDW (11.5-14.5) % Plt Count (120.0-450.0) 10^3/uL MPV (7.0-11.0) fl Baso % (Auto) (0.0-3.0) % Baso # (0.0-2.0) K/mm3 Corrected WBC (Man) (4.5-11.0) K/mm3 Neutrophils % (Manual) (50.0-70.0) % Band Neutrophils % (0-2) % Lymphocytes % (Manual) (22.0-35.0) % Monocytes % (Manual) (1.0-6.0) % Eosinophils % (Manual) (0.0-3.0) % Metamyelocytes % % Myelocytes % % Nucleated RBC % % Platelet Evaluation (NORMAL) Large Platelets Polychromasia Hypochromasia Poikilocytosis (manual Anisocytosis (manual) Microcytosis (manual) Macrocytosis (manual) Spherocytes Sickle Cells Target Cells Tear Drop Cells Ovalocytes Stomatocytes [place] Cells Schistocytes Retic Count (0.5-1.5) % PT 24.8 H (9.9-11.8) Seconds INR 2.30 H (0.93-1.08) pCO2 27 L (35-45) mm/Hg pO2 224.0 H (80-100) mm/Hg HCO3 22.6 (21-28) mmol/L ABG pH 7.53 H (7.35-7.45) ABG Total CO2 23.4 (22-28) mmol.L ABG O2 Saturation 101.6 H (95-98) % ABG O2 Content (15-23) ML/dl ABG Base Excess 1.1 (-2.0-3.0) mmol/L ABG Hemoglobin (11.7-17.4) g/dL ABG Carboxyhemoglobin (0.5-1.5) % POC ABG HHb (Measured) (0-5) % ABG Methemoglobin (0.0-3.0) % ABG O2 Capacity (16-24) mL/dl ABG Potassium 4.2 (3.6-5.2) mmol/L VBG pH (7.32-7.43) VBG pCO2 (40-60) VBG HCO3 (21-28) mmol/l VBG Total CO2 (22-28) mmol.L VBG O2 Sat (Calc) (40-65) % VBG Base Excess (0.0-2.0) mmol/L VBG Potassium (3.6-5.2) mmol/L Hgb O2 Saturation (95.0-98.0) % Glucose 114 H (65-105) mg/dl Lactate 4.8 H* (0.7-2.1) mmol/L FiO2 100.0 % Sodium 135.0 (132-148) mmol/L Potassium (3.6-5.0) mmol/L Chloride 106.0 (98-107) mmol/L Carbon Dioxide (21-33) mmol/L Anion Gap (10-20) BUN (7-21) mg/dL Creatinine (0.5-1.4) mg/dL Est GFR ( Amer) Est GFR (Non-Af Amer) POC Glucose (mg/dL) 105 (65-110) mg/dL Random Glucose (70-110) mg/dL Calcium (8.4-10.5) mg/dL Total Bilirubin (0.2-1.3) mg/dL AST (14-36) U/L ALT (7-56) U/L Alkaline Phosphatase (38-126) U/L Ammonia (9-33) umol/L Total Protein (5.8-8.3) g/dL Albumin (3.0-4.8) g/dL Globulin gm/dL Albumin/Globulin Ratio (1.1-1.8) Arterial Blood Potassium 4.2 (3.6-5.2) mmol/L Venous Blood Potassium (3.6-5.2) mmol/L Vancomycin Trough (5.0-10.0) ug/mL Random Vancomycin (20.0-40.0) ug/mL Blood Type Antibody Screen Crossmatch BBK History Checked 11/18/16 11/18/16 11/18/16 Range/Units 06:30 06:30 03:05 WBC 14.7 H D 9.6 D (4.5-11.0) 10^3/ul RBC 3.09 L 2.78 L (3.5-6.1) 10^6/uL Hgb 9.4 L 8.5 L D (12.0-16.0) g/dL Hct 26.4 L 24.2 L (36.0-48.0) % MCV 85.4 87.1 D (80.0-105.0) fl MCH 30.4 30.6 (25.0-35.0) pg MCHC 35.6 35.1 (31.0-37.0) g/dl RDW 15.4 H 15.2 H (11.5-14.5) % Plt Count 40 L* 32 L* (120.0-450.0) 10^3/uL MPV 9.3 9.7 (7.0-11.0) fl Baso % (Auto) 0.8 (0.0-3.0) % Baso # 0.08 (0.0-2.0) K/mm3 Corrected WBC (Man) 1.7 L (4.5-11.0) K/mm3 Neutrophils % (Manual) 78 H (50.0-70.0) % Band Neutrophils % 1 (0-2) % Lymphocytes % (Manual) 15 L (22.0-35.0) % Monocytes % (Manual) 2 (1.0-6.0) % Eosinophils % (Manual) (0.0-3.0) % Metamyelocytes % 1 % Myelocytes % 3 % Nucleated RBC % 480 % Platelet Evaluation Low (NORMAL) Large Platelets Polychromasia Slight Hypochromasia 2+ Poikilocytosis (manual 1+ Anisocytosis (manual) 2+ Microcytosis (manual) Macrocytosis (manual) Spherocytes Sickle Cells 1+ Target Cells Slight Tear Drop Cells Slight Ovalocytes 1+ Stomatocytes [place] Cells 1+ Schistocytes Retic Count (0.5-1.5) % PT (9.9-11.8) Seconds INR (0.93-1.08) pCO2 (35-45) mm/Hg pO2 (80-100) mm/Hg HCO3 (21-28) mmol/L ABG pH (7.35-7.45) ABG Total CO2 (22-28) mmol.L ABG O2 Saturation (95-98) % ABG O2 Content (15-23) ML/dl ABG Base Excess (-2.0-3.0) mmol/L ABG Hemoglobin (11.7-17.4) g/dL ABG Carboxyhemoglobin (0.5-1.5) % POC ABG HHb (Measured) (0-5) % ABG Methemoglobin (0.0-3.0) % ABG O2 Capacity (16-24) mL/dl ABG Potassium (3.6-5.2) mmol/L VBG pH (7.32-7.43) VBG pCO2 (40-60) VBG HCO3 (21-28) mmol/l VBG Total CO2 (22-28) mmol.L VBG O2 Sat (Calc) (40-65) % VBG Base Excess (0.0-2.0) mmol/L VBG Potassium (3.6-5.2) mmol/L Hgb O2 Saturation (95.0-98.0) % Glucose (65-105) mg/dl Lactate (0.7-2.1) mmol/L FiO2 % Sodium 135 (132-148) mmol/L Potassium 3.6 (3.6-5.0) mmol/L Chloride 93 L (98-107) mmol/L Carbon Dioxide 30 (21-33) mmol/L Anion Gap 16 (10-20) BUN 25 H (7-21) mg/dL Creatinine 1.4 (0.5-1.4) mg/dL Est GFR ( Amer) 51 Est GFR (Non-Af Amer) 42 POC Glucose (mg/dL) (65-110) mg/dL Random Glucose 125 H (70-110) mg/dL Calcium 6.9 L* (8.4-10.5) mg/dL Total Bilirubin 19.9 H* (0.2-1.3) mg/dL AST 2638 H (14-36) U/L ALT 330 H (7-56) U/L Alkaline Phosphatase 334 H (38-126) U/L Ammonia (9-33) umol/L Total Protein 5.6 L (5.8-8.3) g/dL Albumin 2.3 L (3.0-4.8) g/dL Globulin 3.2 gm/dL Albumin/Globulin Ratio 0.7 L (1.1-1.8) Arterial Blood Potassium (3.6-5.2) mmol/L Venous Blood Potassium (3.6-5.2) mmol/L Vancomycin Trough (5.0-10.0) ug/mL Random Vancomycin (20.0-40.0) ug/mL Blood Type Antibody Screen Crossmatch BBK History Checked 11/17/16 11/17/16 11/17/16 Range/Units 21:45 18:30 16:04 WBC (4.5-11.0) 10^3/ul RBC (3.5-6.1) 10^6/uL Hgb (12.0-16.0) g/dL Hct (36.0-48.0) % MCV (80.0-105.0) fl MCH (25.0-35.0) pg MCHC (31.0-37.0) g/dl RDW (11.5-14.5) % Plt Count (120.0-450.0) 10^3/uL MPV (7.0-11.0) fl Baso % (Auto) (0.0-3.0) % Baso # (0.0-2.0) K/mm3 Corrected WBC (Man) (4.5-11.0) K/mm3 Neutrophils % (Manual) (50.0-70.0) % Band Neutrophils % (0-2) % Lymphocytes % (Manual) (22.0-35.0) % Monocytes % (Manual) (1.0-6.0) % Eosinophils % (Manual) (0.0-3.0) % Metamyelocytes % % Myelocytes % % Nucleated RBC % % Platelet Evaluation (NORMAL) Large Platelets Polychromasia Hypochromasia Poikilocytosis (manual Anisocytosis (manual) Microcytosis (manual) Macrocytosis (manual) Spherocytes Sickle Cells Target Cells Tear Drop Cells Ovalocytes Stomatocytes [place] Cells Schistocytes Retic Count (0.5-1.5) % PT (9.9-11.8) Seconds INR (0.93-1.08) pCO2 43 (35-45) mm/Hg pO2 27.0 L* (80-100) mm/Hg HCO3 21.2 (21-28) mmol/L ABG pH 7.30 L (7.35-7.45) ABG Total CO2 22.5 (22-28) mmol.L ABG O2 Saturation 52.7 L (95-98) % ABG O2 Content 3.4 L (15-23) ML/dl ABG Base Excess -4.7 L (-2.0-3.0) mmol/L ABG Hemoglobin 4.9 L (11.7-17.4) g/dL ABG Carboxyhemoglobin 4.8 H (0.5-1.5) % POC ABG HHb (Measured) 44.3 H (0-5) % ABG Methemoglobin 1.6 (0.0-3.0) % ABG O2 Capacity 6.5 L (16-24) mL/dl ABG Potassium (3.6-5.2) mmol/L VBG pH (7.32-7.43) VBG pCO2 (40-60) VBG HCO3 (21-28) mmol/l VBG Total CO2 (22-28) mmol.L VBG O2 Sat (Calc) (40-65) % VBG Base Excess (0.0-2.0) mmol/L VBG Potassium (3.6-5.2) mmol/L Hgb O2 Saturation 49.4 L (95.0-98.0) % Glucose (65-105) mg/dl Lactate (0.7-2.1) mmol/L FiO2 60.0 % Sodium (132-148) mmol/L Potassium (3.6-5.0) mmol/L Chloride (98-107) mmol/L Carbon Dioxide (21-33) mmol/L Anion Gap (10-20) BUN (7-21) mg/dL Creatinine (0.5-1.4) mg/dL Est GFR ( Amer) Est GFR (Non-Af Amer) POC Glucose (mg/dL) 177 H (65-110) mg/dL Random Glucose (70-110) mg/dL Calcium (8.4-10.5) mg/dL Total Bilirubin (0.2-1.3) mg/dL AST (14-36) U/L ALT (7-56) U/L Alkaline Phosphatase (38-126) U/L Ammonia (9-33) umol/L Total Protein (5.8-8.3) g/dL Albumin (3.0-4.8) g/dL Globulin gm/dL Albumin/Globulin Ratio (1.1-1.8) Arterial Blood Potassium (3.6-5.2) mmol/L Venous Blood Potassium (3.6-5.2) mmol/L Vancomycin Trough (5.0-10.0) ug/mL Random Vancomycin 19.8 L (20.0-40.0) ug/mL Blood Type Antibody Screen Crossmatch BBK History Checked 11/17/16 11/17/16 11/17/16 Range/Units 16:00 16:00 16:00 WBC 42.2 H* (4.5-11.0) 10^3/ul RBC 1.38 L (3.5-6.1) 10^6/uL Hgb 5.1 L* (12.0-16.0) g/dL Hct 14.2 L* (36.0-48.0) % MCV 102.9 (80.0-105.0) fl MCH 37.0 H (25.0-35.0) pg MCHC 35.9 (31.0-37.0) g/dl RDW 25.3 H (11.5-14.5) % Plt Count 123 (120.0-450.0) 10^3/uL MPV 10.9 (7.0-11.0) fl Baso % (Auto) (0.0-3.0) % Baso # (0.0-2.0) K/mm3 Corrected WBC (Man) 6.2 (4.5-11.0) K/mm3 Neutrophils % (Manual) 61 (50.0-70.0) % Band Neutrophils % 9 H (0-2) % Lymphocytes % (Manual) 19 L (22.0-35.0) % Monocytes % (Manual) 4 (1.0-6.0) % Eosinophils % (Manual) 1 (0.0-3.0) % Metamyelocytes % 1 % Myelocytes % 5 % Nucleated RBC % 583 % Platelet Evaluation Normal (NORMAL) Large Platelets Present Polychromasia Hypochromasia 2+ Poikilocytosis (manual Anisocytosis (manual) 1+ Microcytosis (manual) 2+ Macrocytosis (manual) Slight Spherocytes Slight Sickle Cells 1+ Target Cells 1+ Tear Drop Cells Ovalocytes Stomatocytes Slight [place] Cells Schistocytes Slight Retic Count 11.71 H* (0.5-1.5) % PT (9.9-11.8) Seconds INR (0.93-1.08) pCO2 (35-45) mm/Hg pO2 (80-100) mm/Hg HCO3 (21-28) mmol/L ABG pH (7.35-7.45) ABG Total CO2 (22-28) mmol.L ABG O2 Saturation (95-98) % ABG O2 Content (15-23) ML/dl ABG Base Excess (-2.0-3.0) mmol/L ABG Hemoglobin (11.7-17.4) g/dL ABG Carboxyhemoglobin (0.5-1.5) % POC ABG HHb (Measured) (0-5) % ABG Methemoglobin (0.0-3.0) % ABG O2 Capacity (16-24) mL/dl ABG Potassium (3.6-5.2) mmol/L VBG pH (7.32-7.43) VBG pCO2 (40-60) VBG HCO3 (21-28) mmol/l VBG Total CO2 (22-28) mmol.L VBG O2 Sat (Calc) (40-65) % VBG Base Excess (0.0-2.0) mmol/L VBG Potassium (3.6-5.2) mmol/L Hgb O2 Saturation (95.0-98.0) % Glucose (65-105) mg/dl Lactate (0.7-2.1) mmol/L FiO2 % Sodium 136 (132-148) mmol/L Potassium 4.7 (3.6-5.0) mmol/L Chloride 95 L (98-107) mmol/L Carbon Dioxide 18 L (21-33) mmol/L Anion Gap 28 H (10-20) BUN 39 H (7-21) mg/dL Creatinine 2.5 H (0.5-1.4) mg/dL Est GFR ( Amer) 26 Est GFR (Non-Af Amer) 22 POC Glucose (mg/dL) (65-110) mg/dL Random Glucose 150 H (70-110) mg/dL Calcium 7.6 L (8.4-10.5) mg/dL Total Bilirubin 25.7 H* (0.2-1.3) mg/dL AST 2820 H (14-36) U/L ALT 339 H (7-56) U/L Alkaline Phosphatase 311 H (38-126) U/L Ammonia (9-33) umol/L Total Protein 7.6 (5.8-8.3) g/dL Albumin 3.3 (3.0-4.8) g/dL Globulin 4.3 gm/dL Albumin/Globulin Ratio 0.8 L (1.1-1.8) Arterial Blood Potassium (3.6-5.2) mmol/L Venous Blood Potassium (3.6-5.2) mmol/L Vancomycin Trough (5.0-10.0) ug/mL Random Vancomycin (20.0-40.0) ug/mL Blood Type Antibody Screen Crossmatch BBK History Checked 11/17/16 11/16/16 Range/Units 05:35 20:00 WBC (4.5-11.0) 10^3/ul RBC (3.5-6.1) 10^6/uL Hgb (12.0-16.0) g/dL Hct (36.0-48.0) % MCV (80.0-105.0) fl MCH (25.0-35.0) pg MCHC (31.0-37.0) g/dl RDW (11.5-14.5) % Plt Count (120.0-450.0) 10^3/uL MPV (7.0-11.0) fl Baso % (Auto) (0.0-3.0) % Baso # (0.0-2.0) K/mm3 Corrected WBC (Man) (4.5-11.0) K/mm3 Neutrophils % (Manual) (50.0-70.0) % Band Neutrophils % (0-2) % Lymphocytes % (Manual) (22.0-35.0) % Monocytes % (Manual) (1.0-6.0) % Eosinophils % (Manual) (0.0-3.0) % Metamyelocytes % % Myelocytes % % Nucleated RBC % % Platelet Evaluation (NORMAL) Large Platelets Polychromasia Hypochromasia Poikilocytosis (manual Anisocytosis (manual) Microcytosis (manual) Macrocytosis (manual) Spherocytes Sickle Cells Target Cells Tear Drop Cells Ovalocytes Stomatocytes [place] Cells Schistocytes Retic Count (0.5-1.5) % PT (9.9-11.8) Seconds INR (0.93-1.08) pCO2 (35-45) mm/Hg pO2 (80-100) mm/Hg HCO3 (21-28) mmol/L ABG pH (7.35-7.45) ABG Total CO2 (22-28) mmol.L ABG O2 Saturation (95-98) % ABG O2 Content (15-23) ML/dl ABG Base Excess (-2.0-3.0) mmol/L ABG Hemoglobin (11.7-17.4) g/dL ABG Carboxyhemoglobin (0.5-1.5) % POC ABG HHb (Measured) (0-5) % ABG Methemoglobin (0.0-3.0) % ABG O2 Capacity (16-24) mL/dl ABG Potassium (3.6-5.2) mmol/L VBG pH (7.32-7.43) VBG pCO2 (40-60) VBG HCO3 (21-28) mmol/l VBG Total CO2 (22-28) mmol.L VBG O2 Sat (Calc) (40-65) % VBG Base Excess (0.0-2.0) mmol/L VBG Potassium (3.6-5.2) mmol/L Hgb O2 Saturation (95.0-98.0) % Glucose (65-105) mg/dl Lactate (0.7-2.1) mmol/L FiO2 % Sodium (132-148) mmol/L Potassium (3.6-5.0) mmol/L Chloride (98-107) mmol/L Carbon Dioxide (21-33) mmol/L Anion Gap (10-20) BUN (7-21) mg/dL Creatinine (0.5-1.4) mg/dL Est GFR ( Amer) Est GFR (Non-Af Amer) POC Glucose (mg/dL) 122 H (65-110) mg/dL Random Glucose (70-110) mg/dL Calcium (8.4-10.5) mg/dL Total Bilirubin (0.2-1.3) mg/dL AST (14-36) U/L ALT (7-56) U/L Alkaline Phosphatase (38-126) U/L Ammonia (9-33) umol/L Total Protein (5.8-8.3) g/dL Albumin (3.0-4.8) g/dL Globulin gm/dL Albumin/Globulin Ratio (1.1-1.8) Arterial Blood Potassium (3.6-5.2) mmol/L Venous Blood Potassium (3.6-5.2) mmol/L Vancomycin Trough (5.0-10.0) ug/mL Random Vancomycin (20.0-40.0) ug/mL Blood Type B POSITIVE Antibody Screen Negative Crossmatch See Detail BBK History Checked Patient has bt Laboratory Results - last 24 hr 11/16/16 11/17/16 11/17/16 20:00 05:35 16:00 WBC 42.2 H* RBC 1.38 L Hgb 5.1 L* Hct 14.2 L* MCV 102.9 MCH 37.0 H MCHC 35.9 RDW 25.3 H Plt Count 123 MPV 10.9 Baso % (Auto) Baso # Corrected WBC (Man) 6.2 Neutrophils % (Manual) 61 Band Neutrophils % 9 H Lymphocytes % (Manual) 19 L Monocytes % (Manual) 4 Eosinophils % (Manual) 1 Metamyelocytes % 1 Myelocytes % 5 Nucleated RBC % 583 Platelet Evaluation Normal Large Platelets Present Polychromasia Hypochromasia 2+ Poikilocytosis (manual Anisocytosis (manual) 1+ Microcytosis (manual) 2+ Macrocytosis (manual) Slight Spherocytes Slight Sickle Cells 1+ Target Cells 1+ Tear Drop Cells Ovalocytes Stomatocytes Slight [place] Cells Schistocytes Slight Retic Count PT INR pCO2 pO2 HCO3 ABG pH ABG Total CO2 ABG O2 Saturation ABG O2 Content ABG Base Excess ABG Hemoglobin ABG Carboxyhemoglobin POC ABG HHb (Measured) ABG Methemoglobin ABG O2 Capacity ABG Potassium VBG pH VBG pCO2 VBG HCO3 VBG Total CO2 VBG O2 Sat (Calc) VBG Base Excess VBG Potassium Hgb O2 Saturation Glucose Lactate FiO2 Sodium Potassium Chloride Carbon Dioxide Anion Gap BUN Creatinine Est GFR ( Amer) Est GFR (Non-Af Amer) POC Glucose (mg/dL) 122 H Random Glucose Calcium Total Bilirubin AST ALT Alkaline Phosphatase Ammonia Total Protein Albumin Globulin Albumin/Globulin Ratio Arterial Blood Potassium Venous Blood Potassium Vancomycin Trough Random Vancomycin Blood Type B POSITIVE Antibody Screen Negative Crossmatch See Detail BBK History Checked Patient has bt 11/17/16 11/17/16 11/17/16 16:00 16:00 16:04 WBC RBC Hgb Hct MCV MCH MCHC RDW Plt Count MPV Baso % (Auto) Baso # Corrected WBC (Man) Neutrophils % (Manual) Band Neutrophils % Lymphocytes % (Manual) Monocytes % (Manual) Eosinophils % (Manual) Metamyelocytes % Myelocytes % Nucleated RBC % Platelet Evaluation Large Platelets Polychromasia Hypochromasia Poikilocytosis (manual Anisocytosis (manual) Microcytosis (manual) Macrocytosis (manual) Spherocytes Sickle Cells Target Cells Tear Drop Cells Ovalocytes Stomatocytes [place] Cells Schistocytes Retic Count 11.71 H* PT INR pCO2 pO2 HCO3 ABG pH ABG Total CO2 ABG O2 Saturation ABG O2 Content ABG Base Excess ABG Hemoglobin ABG Carboxyhemoglobin POC ABG HHb (Measured) ABG Methemoglobin ABG O2 Capacity ABG Potassium VBG pH VBG pCO2 VBG HCO3 VBG Total CO2 VBG O2 Sat (Calc) VBG Base Excess VBG Potassium Hgb O2 Saturation Glucose Lactate FiO2 Sodium 136 Potassium 4.7 Chloride 95 L Carbon Dioxide 18 L Anion Gap 28 H BUN 39 H Creatinine 2.5 H Est GFR ( Amer) 26 Est GFR (Non-Af Amer) 22 POC Glucose (mg/dL) 177 H Random Glucose 150 H Calcium 7.6 L Total Bilirubin 25.7 H* AST 2820 H ALT 339 H Alkaline Phosphatase 311 H Ammonia Total Protein 7.6 Albumin 3.3 Globulin 4.3 Albumin/Globulin Ratio 0.8 L Arterial Blood Potassium Venous Blood Potassium Vancomycin Trough Random Vancomycin Blood Type Antibody Screen Crossmatch BBK History Checked 11/17/16 11/17/16 11/18/16 18:30 21:45 03:05 WBC 9.6 D RBC 2.78 L Hgb 8.5 L D Hct 24.2 L MCV 87.1 D MCH 30.6 MCHC 35.1 RDW 15.2 H Plt Count 32 L* MPV 9.7 Baso % (Auto) 0.8 Baso # 0.08 Corrected WBC (Man) 1.7 L Neutrophils % (Manual) 78 H Band Neutrophils % 1 Lymphocytes % (Manual) 15 L Monocytes % (Manual) 2 Eosinophils % (Manual) Metamyelocytes % 1 Myelocytes % 3 Nucleated RBC % 480 Platelet Evaluation Low Large Platelets Polychromasia Slight Hypochromasia 2+ Poikilocytosis (manual 1+ Anisocytosis (manual) 2+ Microcytosis (manual) Macrocytosis (manual) Spherocytes Sickle Cells 1+ Target Cells Slight Tear Drop Cells Slight Ovalocytes 1+ Stomatocytes [place] Cells 1+ Schistocytes Retic Count PT INR pCO2 43 pO2 27.0 L* HCO3 21.2 ABG pH 7.30 L ABG Total CO2 22.5 ABG O2 Saturation 52.7 L ABG O2 Content 3.4 L ABG Base Excess -4.7 L ABG Hemoglobin 4.9 L ABG Carboxyhemoglobin 4.8 H POC ABG HHb (Measured) 44.3 H ABG Methemoglobin 1.6 ABG O2 Capacity 6.5 L ABG Potassium VBG pH VBG pCO2 VBG HCO3 VBG Total CO2 VBG O2 Sat (Calc) VBG Base Excess VBG Potassium Hgb O2 Saturation 49.4 L Glucose Lactate FiO2 60.0 Sodium Potassium Chloride Carbon Dioxide Anion Gap BUN Creatinine Est GFR ( Amer) Est GFR (Non-Af Amer) POC Glucose (mg/dL) Random Glucose Calcium Total Bilirubin AST ALT Alkaline Phosphatase Ammonia Total Protein Albumin Globulin Albumin/Globulin Ratio Arterial Blood Potassium Venous Blood Potassium Vancomycin Trough Random Vancomycin 19.8 L Blood Type Antibody Screen Crossmatch BBK History Checked 11/18/16 11/18/16 11/18/16 06:30 06:30 06:30 WBC 14.7 H D RBC 3.09 L Hgb 9.4 L Hct 26.4 L MCV 85.4 MCH 30.4 MCHC 35.6 RDW 15.4 H Plt Count 40 L* MPV 9.3 Baso % (Auto) Baso # Corrected WBC (Man) Neutrophils % (Manual) Band Neutrophils % Lymphocytes % (Manual) Monocytes % (Manual) Eosinophils % (Manual) Metamyelocytes % Myelocytes % Nucleated RBC % Platelet Evaluation Large Platelets Polychromasia Hypochromasia Poikilocytosis (manual Anisocytosis (manual) Microcytosis (manual) Macrocytosis (manual) Spherocytes Sickle Cells Target Cells Tear Drop Cells Ovalocytes Stomatocytes [place] Cells Schistocytes Retic Count PT 24.8 H INR 2.30 H pCO2 pO2 HCO3 ABG pH ABG Total CO2 ABG O2 Saturation ABG O2 Content ABG Base Excess ABG Hemoglobin ABG Carboxyhemoglobin POC ABG HHb (Measured) ABG Methemoglobin ABG O2 Capacity ABG Potassium VBG pH VBG pCO2 VBG HCO3 VBG Total CO2 VBG O2 Sat (Calc) VBG Base Excess VBG Potassium Hgb O2 Saturation Glucose Lactate FiO2 Sodium 135 Potassium 3.6 Chloride 93 L Carbon Dioxide 30 Anion Gap 16 BUN 25 H Creatinine 1.4 Est GFR ( Amer) 51 Est GFR (Non-Af Amer) 42 POC Glucose (mg/dL) Random Glucose 125 H Calcium 6.9 L* Total Bilirubin 19.9 H* AST 2638 H ALT 330 H Alkaline Phosphatase 334 H Ammonia Total Protein 5.6 L Albumin 2.3 L Globulin 3.2 Albumin/Globulin Ratio 0.7 L Arterial Blood Potassium Venous Blood Potassium Vancomycin Trough Random Vancomycin Blood Type Antibody Screen Crossmatch BBK History Checked 11/18/16 11/18/16 11/18/16 06:55 11:10 11:34 WBC RBC Hgb Hct MCV MCH MCHC RDW Plt Count MPV Baso % (Auto) Baso # Corrected WBC (Man) Neutrophils % (Manual) Band Neutrophils % Lymphocytes % (Manual) Monocytes % (Manual) Eosinophils % (Manual) Metamyelocytes % Myelocytes % Nucleated RBC % Platelet Evaluation Large Platelets Polychromasia Hypochromasia Poikilocytosis (manual Anisocytosis (manual) Microcytosis (manual) Macrocytosis (manual) Spherocytes Sickle Cells Target Cells Tear Drop Cells Ovalocytes Stomatocytes [place] Cells Schistocytes Retic Count PT INR pCO2 27 L pO2 224.0 H 65 H HCO3 22.6 ABG pH 7.53 H ABG Total CO2 23.4 ABG O2 Saturation 101.6 H ABG O2 Content ABG Base Excess 1.1 ABG Hemoglobin ABG Carboxyhemoglobin POC ABG HHb (Measured) ABG Methemoglobin ABG O2 Capacity ABG Potassium 4.2 VBG pH 7.39 VBG pCO2 49.0 VBG HCO3 29.7 H VBG Total CO2 31.2 H VBG O2 Sat (Calc) 98.9 H VBG Base Excess 3.7 H VBG Potassium 3.7 Hgb O2 Saturation Glucose 114 H 131 H Lactate 4.8 H* 5.8 H* FiO2 100.0 21.0 Sodium 135.0 134.0 Potassium Chloride 106.0 96.0 L Carbon Dioxide Anion Gap BUN Creatinine Est GFR ( Amer) Est GFR (Non-Af Amer) POC Glucose (mg/dL) 105 Random Glucose Calcium Total Bilirubin AST ALT Alkaline Phosphatase Ammonia Total Protein Albumin Globulin Albumin/Globulin Ratio Arterial Blood Potassium 4.2 Venous Blood Potassium 3.7 Vancomycin Trough Random Vancomycin Blood Type Antibody Screen Crossmatch BBK History Checked 11/18/16 11/18/16 11:34 11:34 WBC RBC Hgb Hct MCV MCH MCHC RDW Plt Count MPV Baso % (Auto) Baso # Corrected WBC (Man) Neutrophils % (Manual) Band Neutrophils % Lymphocytes % (Manual) Monocytes % (Manual) Eosinophils % (Manual) Metamyelocytes % Myelocytes % Nucleated RBC % Platelet Evaluation Large Platelets Polychromasia Hypochromasia Poikilocytosis (manual Anisocytosis (manual) Microcytosis (manual) Macrocytosis (manual) Spherocytes Sickle Cells Target Cells Tear Drop Cells Ovalocytes Stomatocytes [place] Cells Schistocytes Retic Count PT INR pCO2 pO2 HCO3 ABG pH ABG Total CO2 ABG O2 Saturation ABG O2 Content ABG Base Excess ABG Hemoglobin ABG Carboxyhemoglobin POC ABG HHb (Measured) ABG Methemoglobin ABG O2 Capacity ABG Potassium VBG pH VBG pCO2 VBG HCO3 VBG Total CO2 VBG O2 Sat (Calc) VBG Base Excess VBG Potassium Hgb O2 Saturation Glucose Lactate FiO2 Sodium Potassium Chloride Carbon Dioxide Anion Gap BUN Creatinine Est GFR ( Amer) Est GFR (Non-Af Amer) POC Glucose (mg/dL) Random Glucose Calcium Total Bilirubin AST ALT Alkaline Phosphatase Ammonia 23 Total Protein Albumin Globulin Albumin/Globulin Ratio Arterial Blood Potassium Venous Blood Potassium Vancomycin Trough 21.3 H* Random Vancomycin Blood Type Antibody Screen Crossmatch BBK History Checked Fingerstick Blood Sugar Results: 96 Review of Systems - Review of Systems Systems not reviewed;Unavailable: Intubated Critical Care Progress Note - Ventilator Checklist Head of Bed 30 Degrees: Yes Daily Sedation Vacation: Yes Daily Assessment of Readiness to Wean: Yes Daily Spontaneous Breathing Trial: Yes PUD Prophalyxis: Yes DVT Prophylaxis: Yes Oral Care with Chlorhexidine Gluconate {CHG}: Yes - Vent Settings MODE:: PRVC TIDAL VOLUME:: 400 RESP RATE:: 15 FIO2:: 100 PEEP:: 5 - Extremities/Vascular Does the Patient have a Central Venous Catheter?: Yes Insertion Site: Femoral Vein Does the Patient have a Diaz Catheter?: Yes Does the Patient need a Diaz Catheter?: Yes Catheter Insertion Criteria: Need for accurate measurement of output in critically ill patient - Prophylaxis GI Prophylaxis GI: PPI - Prophylaxis DVT Prophylaxis DVT: SCDs - Nutrition Nutrition: Nutrition Category Date Time Status NPO Diet [DIET] Diets 11/18/16 Dinner Ordered Assessment/Plan - Assessment and Plan (Free Text) Assessment: 36F w/PMH sig for sickle cell anemia admitted to ICU w/acute liver failure 2/2 hemachromatosis, currently requiring dialysis and acute critical care intervention. Plan: Neuro intubated Sedated propofol & Versed Monitor CVS Sickle cell crisis w/acute chest syndrome Hypotensive Levophed Holding Lasix Some slight tachycardia Monitor BNP 22,700 Cardio following Pulm VBGL 7.39m, pCO2 29.7, pO2 98.9, HCO3 29.7; lactate 5.8 from 4.8 Duonebs PUlmicort Target SaO2>94% Sao2 100% on [facility] vent Protective lung mgmt strategy Nephro ESRD on HD w/Left groin dialysis TLC D10@20cc Electrolytes generally WNL Hypochloridemia 93 Ergocalciferol weekly Folic acid Strict I/O's Nephro following Surgery following for dialysis catheter GI Acute liver failure 2/2 hemachromatosis s/p exchange transfusion w/ transaminitis and hyperbilirubinemia T bili 19.9 from 25.7 AST 2638 from 2820 ALT 330 from 339 Lactulose Rifaximin Ammonia 23 Ab U/S -Minimal upper abdominal ascites. Ab U/s w/duplex - patent portal V w/heptopetal flow, limited study done on 11/14 GI following Diaz in place w/dark UOP Monitor I/O's heme Sickle cell crisis w/acute chest syndrome Dilaudid Hydroxyurea INR 2.3 from 2.06 Given 10 Vitamin K Given 6 FFP and 2 units pRBCs over weekend Hgb 9.4 from 8.5 Hct 26.4 Thrombocytopenia 40 from 32 Giving 2 of plts and 1 of FFP Monitor Heme following Endo BS 125 Target euglycemia MSK Cerebral palsy Consider PT/TO when extubated ID Afebrile overlast 24H Leukocytosis 14.7 from 9.6 Vanc trough 21.3 Holding vanco today, will recheck level tomorrow Blood cx neg x 3D, 5D urine cx neg FU procalcitonin Cefepime Psych Bipolar d/o Depressed Psych following GI/DVT ppx Protonix Holding Heparin SCDs Dispo: Pt may require Liver transplant Currently in talks w/[facility] regarding transfer, however institution does not perform liver transplantation at this time, will explore other potential options in conjunction with GI team DW attending Kay, PGY-1 36F w/ - Date & Time Date: 11/18/16 Time: 07:45 <Satish Grover - Last Filed: 11/18/16 17:25> CCU Objective - Vital Signs / Intake & Output Vital Signs (Last 4 hours): Vital Signs Pulse BP 11/18/16 15:44 102 H 11/18/16 15:43 102 H 11/18/16 15:42 102 H 11/18/16 15:41 102 H 11/18/16 15:40 102 H 11/18/16 15:39 102 H 11/18/16 15:38 102 H 11/18/16 15:37 101 H 11/18/16 15:36 102 H 11/18/16 15:35 101 H 11/18/16 15:34 102 H 11/18/16 15:33 102 H 11/18/16 15:32 103 H 11/18/16 15:31 101 H 11/18/16 15:30 102 H 86/52 L 11/18/16 15:29 101 H 11/18/16 15:28 101 H 11/18/16 15:27 101 H 11/18/16 15:26 101 H 11/18/16 15:25 100 H 11/18/16 15:24 101 H 11/18/16 15:23 102 H 11/18/16 15:22 101 H 11/18/16 15:21 101 H 11/18/16 15:20 101 H Intake and Output (Last 8hrs): Intake & Output 11/18/16 11/18/16 11/18/16 06:59 14:59 22:59 Intake Total 125 33 Output Total 300 Balance -175 33 Intake: IV 125 30 Blood Product 3 Apheresis Plts Acda Lr 2 Irr Unit [id number] Apheresis Plts Acda Lr 1 Irr 2nd Unit [id number] Output: Urine 300 2-way Urethral 300 Other: # Bowel Movements 2 - Medications Active Medications: Active Medications Generic Name Dose Route Start Last Admin Trade Name Freq PRN Reason Stop Dose Admin Albuterol/Ipratropium 3 ml 11/16/16 14:00 11/18/16 13:11 Duoneb 3 Mg/0.5 Mg (3 Ml) Ud IH 3 ml [id number] ARLETTE Administration Budesonide 0.5 mg 11/16/16 20:00 11/18/16 07:27 Pulmicort Respules IH 0.5 mg [id number] ARLETTE Administration Ergocalciferol 1 cap 11/12/16 10:00 11/12/16 09:20 Drisdol 50,000 Intl Units Cap PO 1 cap QWK ARLETTE Administration Folic Acid 1 mg 11/12/16 10:00 11/18/16 15:46 Folic Acid PO Not Given DAILY ARLETTE Furosemide 40 mg 11/16/16 10:00 11/17/16 09:00 Lasix IVP 40 mg DAILY ARLETTE Administration Heparin Sodium (Porcine) 5,000 units 11/13/16 01:15 11/16/16 21:44 Heparin SC Not Given Q12 ARLETTE Protocol Hydromorphone HCl 1 mg 11/15/16 11:24 11/18/16 13:12 Dilaudid IVP 1 mg Q3H PRN Administration Pain, severe (8-10) Hydroxyurea 500 mg 11/12/16 10:00 11/18/16 15:47 Hydrea PO Not Given DAILY ARLETTE Vancomycin HCl 1 gm in 250 mls @ 167 mls/hr 11/15/16 11:30 11/17/16 09:30 Vancomycin 1gm IVPB 167 mls/hr DAILY ARLETTE Administration Protocol Cefepime HCl 1 gm in 100 mls @ 100 mls/hr 11/15/16 13:15 11/18/16 13:15 Maxipime 1gm IVPB 100 mls/hr Q24H ARLETTE Administration Protocol Dextrose 500 mls @ 20 mls/hr 11/16/16 18:45 11/17/16 18:30 Dextrose 10% In Water IV 20 mls/hr .Q24H ARLETTE Administration Sodium Bicarbonate 150 meq/ 1,150 mls @ 125 mls/hr 11/16/16 23:15 11/17/16 18 :00 Dextrose IV 125 mls/hr .[id number] ARLETTE Administration Propofol 1,000 mg in 100 mls @ 2.259 mls/hr 11/17/16 20:53 11/18/16 06:00 Diprivan IV 15 mcg/kg/min .Q24H PRN 6.777 mls/hr TITRATE PER MD ORDER Titration Protocol 5 MCG/KG/MIN NOREPINEPHRINE BIT/0.9 % NACL 4 mg in 250 mls @ 15 mls/hr 11/18/16 06:33 09:28 Levophed 4 Mg/ 250 Ml Ns Premixed IV 5 mcg/min .[id number] PRN 18.75 mls/hr TITRATE PER MD ORDER Titration Protocol 4 MCG/MIN Lactic Acid 0 ea 11/13/16 09:22 Lac-Hydrin 12% Cream (140 G) TOP DAILY PRN Wound Lactulose 20 gm 11/16/16 10:00 11/18/16 15:46 Enulose PO Not Given BID ARLETTE Midazolam HCl 1 mg 11/17/16 17:29 Versed Inj IVP Q3H PRN sedation Multivitamins/Minerals 1 tab 11/12/16 11:30 11/18/16 15:47 Therapeutic-M Tab PO Not Given DAILY ARLETTE Non-Formulary Medication 100 mcg 11/13/16 10:00 11/15/16 21:20 Mometasone [Asmanex Twisthaler 110 Mcg] IH Not Given BID [facility] Pantoprazole Sodium 40 mg 11/18/16 12:00 11/18/16 13:14 Protonix Inj IVP 40 mg DAILY ARLETTE Administration Rifaximin 550 mg 11/18/16 10:15 11/18/16 15:47 Xifaxan PO Not Given BID [facility] Protocol Vitamin A 1 ea 11/16/16 10:18 11/18/16 13:21 Vitamin A & D Oint Ud Foilpak TOP 1 ea Q8 PRN Administration Dry skin - Patient Studies Lab Studies: Microbiology Studies 11/14/16 16:47 Blood Culture - Preliminary Blood-Venous NO GROWTH AFTER 4 DAYS 11/14/16 18:06 Blood Culture - Preliminary Blood-Venous NO GROWTH AFTER 3 DAYS Lab Studies 11/18/16 11/18/16 11/18/16 Range/Units 16:24 11:34 11:34 WBC (4.5-11.0) 10^3/ul RBC (3.5-6.1) 10^6/uL Hgb (12.0-16.0) g/dL Hct (36.0-48.0) % MCV (80.0-105.0) fl MCH (25.0-35.0) pg MCHC (31.0-37.0) g/dl RDW (11.5-14.5) % Plt Count (120.0-450.0) 10^3/uL MPV (7.0-11.0) fl Baso % (Auto) (0.0-3.0) % Baso # (0.0-2.0) K/mm3 Corrected WBC (Man) (4.5-11.0) K/mm3 Neutrophils % (Manual) (50.0-70.0) % Band Neutrophils % (0-2) % Lymphocytes % (Manual) (22.0-35.0) % Monocytes % (Manual) (1.0-6.0) % Eosinophils % (Manual) (0.0-3.0) % Metamyelocytes % % Myelocytes % % Nucleated RBC % % Platelet Evaluation (NORMAL) Large Platelets Polychromasia Hypochromasia Poikilocytosis (manual Anisocytosis (manual) Microcytosis (manual) Macrocytosis (manual) Spherocytes Sickle Cells Target Cells Tear Drop Cells Ovalocytes Stomatocytes [place] Cells Schistocytes Retic Count (0.5-1.5) % PT (9.9-11.8) Seconds INR (0.93-1.08) pCO2 (35-45) mm/Hg pO2 (80-100) mm/Hg HCO3 (21-28) mmol/L ABG pH (7.35-7.45) ABG Total CO2 (22-28) mmol.L ABG O2 Saturation (95-98) % ABG O2 Content (15-23) ML/dl ABG Base Excess (-2.0-3.0) mmol/L ABG Hemoglobin (11.7-17.4) g/dL ABG Carboxyhemoglobin (0.5-1.5) % POC ABG HHb (Measured) (0-5) % ABG Methemoglobin (0.0-3.0) % ABG O2 Capacity (16-24) mL/dl ABG Potassium (3.6-5.2) mmol/L VBG pH (7.32-7.43) VBG pCO2 (40-60) VBG HCO3 (21-28) mmol/l VBG Total CO2 (22-28) mmol.L VBG O2 Sat (Calc) (40-65) % VBG Base Excess (0.0-2.0) mmol/L VBG Potassium (3.6-5.2) mmol/L Hgb O2 Saturation (95.0-98.0) % Glucose (65-105) mg/dl Lactate (0.7-2.1) mmol/L FiO2 % Sodium (132-148) mmol/L Potassium (3.6-5.0) mmol/L Chloride (98-107) mmol/L Carbon Dioxide (21-33) mmol/L Anion Gap (10-20) BUN (7-21) mg/dL Creatinine (0.5-1.4) mg/dL Est GFR ( Amer) Est GFR (Non-Af Amer) POC Glucose (mg/dL) 124 H (65-110) mg/dL Random Glucose (70-110) mg/dL Calcium (8.4-10.5) mg/dL Total Bilirubin (0.2-1.3) mg/dL AST (14-36) U/L ALT (7-56) U/L Alkaline Phosphatase (38-126) U/L Ammonia 23 (9-33) umol/L Total Protein (5.8-8.3) g/dL Albumin (3.0-4.8) g/dL Globulin gm/dL Albumin/Globulin Ratio (1.1-1.8) Arterial Blood Potassium (3.6-5.2) mmol/L Venous Blood Potassium (3.6-5.2) mmol/L Vancomycin Trough 21.3 H* (5.0-10.0) ug/mL Random Vancomycin (20.0-40.0) ug/mL Blood Type Antibody Screen Crossmatch BBK History Checked 11/18/16 11/18/16 11/18/16 Range/Units 11:34 11:10 06:55 WBC (4.5-11.0) 10^3/ul RBC (3.5-6.1) 10^6/uL Hgb (12.0-16.0) g/dL Hct (36.0-48.0) % MCV (80.0-105.0) fl MCH (25.0-35.0) pg MCHC (31.0-37.0) g/dl RDW (11.5-14.5) % Plt Count (120.0-450.0) 10^3/uL MPV (7.0-11.0) fl Baso % (Auto) (0.0-3.0) % Baso # (0.0-2.0) K/mm3 Corrected WBC (Man) (4.5-11.0) K/mm3 Neutrophils % (Manual) (50.0-70.0) % Band Neutrophils % (0-2) % Lymphocytes % (Manual) (22.0-35.0) % Monocytes % (Manual) (1.0-6.0) % Eosinophils % (Manual) (0.0-3.0) % Metamyelocytes % % Myelocytes % % Nucleated RBC % % Platelet Evaluation (NORMAL) Large Platelets Polychromasia Hypochromasia Poikilocytosis (manual Anisocytosis (manual) Microcytosis (manual) Macrocytosis (manual) Spherocytes Sickle Cells Target Cells Tear Drop Cells Ovalocytes Stomatocytes [place] Cells Schistocytes Retic Count (0.5-1.5) % PT (9.9-11.8) Seconds INR (0.93-1.08) pCO2 27 L (35-45) mm/Hg pO2 65 H 224.0 H (80-100) mm/Hg HCO3 22.6 (21-28) mmol/L ABG pH 7.53 H (7.35-7.45) ABG Total CO2 23.4 (22-28) mmol.L ABG O2 Saturation 101.6 H (95-98) % ABG O2 Content (15-23) ML/dl ABG Base Excess 1.1 (-2.0-3.0) mmol/L ABG Hemoglobin (11.7-17.4) g/dL ABG Carboxyhemoglobin (0.5-1.5) % POC ABG HHb (Measured) (0-5) % ABG Methemoglobin (0.0-3.0) % ABG O2 Capacity (16-24) mL/dl ABG Potassium 4.2 (3.6-5.2) mmol/L VBG pH 7.39 (7.32-7.43) VBG pCO2 49.0 (40-60) VBG HCO3 29.7 H (21-28) mmol/l VBG Total CO2 31.2 H (22-28) mmol.L VBG O2 Sat (Calc) 98.9 H (40-65) % VBG Base Excess 3.7 H (0.0-2.0) mmol/L VBG Potassium 3.7 (3.6-5.2) mmol/L Hgb O2 Saturation (95.0-98.0) % Glucose 131 H 114 H (65-105) mg/dl Lactate 5.8 H* 4.8 H* (0.7-2.1) mmol/L FiO2 21.0 100.0 % Sodium 134.0 135.0 (132-148) mmol/L Potassium (3.6-5.0) mmol/L Chloride 96.0 L 106.0 (98-107) mmol/L Carbon Dioxide (21-33) mmol/L Anion Gap (10-20) BUN (7-21) mg/dL Creatinine (0.5-1.4) mg/dL Est GFR ( Amer) Est GFR (Non-Af Amer) POC Glucose (mg/dL) 105 (65-110) mg/dL Random Glucose (70-110) mg/dL Calcium (8.4-10.5) mg/dL Total Bilirubin (0.2-1.3) mg/dL AST (14-36) U/L ALT (7-56) U/L Alkaline Phosphatase (38-126) U/L Ammonia (9-33) umol/L Total Protein (5.8-8.3) g/dL Albumin (3.0-4.8) g/dL Globulin gm/dL Albumin/Globulin Ratio (1.1-1.8) Arterial Blood Potassium 4.2 (3.6-5.2) mmol/L Venous Blood Potassium 3.7 (3.6-5.2) mmol/L Vancomycin Trough (5.0-10.0) ug/mL Random Vancomycin (20.0-40.0) ug/mL Blood Type Antibody Screen Crossmatch BBK History Checked 11/18/16 11/18/16 11/18/16 Range/Units 06:30 06:30 06:30 WBC 14.7 H D (4.5-11.0) 10^3/ul RBC 3.09 L (3.5-6.1) 10^6/uL Hgb 9.4 L (12.0-16.0) g/dL Hct 26.4 L (36.0-48.0) % MCV 85.4 (80.0-105.0) fl MCH 30.4 (25.0-35.0) pg MCHC 35.6 (31.0-37.0) g/dl RDW 15.4 H (11.5-14.5) % Plt Count 40 L* (120.0-450.0) 10^3/uL MPV 9.3 (7.0-11.0) fl Baso % (Auto) (0.0-3.0) % Baso # (0.0-2.0) K/mm3 Corrected WBC (Man) (4.5-11.0) K/mm3 Neutrophils % (Manual) (50.0-70.0) % Band Neutrophils % (0-2) % Lymphocytes % (Manual) (22.0-35.0) % Monocytes % (Manual) (1.0-6.0) % Eosinophils % (Manual) (0.0-3.0) % Metamyelocytes % % Myelocytes % % Nucleated RBC % % Platelet Evaluation (NORMAL) Large Platelets Polychromasia Hypochromasia Poikilocytosis (manual Anisocytosis (manual) Microcytosis (manual) Macrocytosis (manual) Spherocytes Sickle Cells Target Cells Tear Drop Cells Ovalocytes Stomatocytes [place] Cells Schistocytes Retic Count (0.5-1.5) % PT 24.8 H (9.9-11.8) Seconds INR 2.30 H (0.93-1.08) pCO2 (35-45) mm/Hg pO2 (80-100) mm/Hg HCO3 (21-28) mmol/L ABG pH (7.35-7.45) ABG Total CO2 (22-28) mmol.L ABG O2 Saturation (95-98) % ABG O2 Content (15-23) ML/dl ABG Base Excess (-2.0-3.0) mmol/L ABG Hemoglobin (11.7-17.4) g/dL ABG Carboxyhemoglobin (0.5-1.5) % POC ABG HHb (Measured) (0-5) % ABG Methemoglobin (0.0-3.0) % ABG O2 Capacity (16-24) mL/dl ABG Potassium (3.6-5.2) mmol/L VBG pH (7.32-7.43) VBG pCO2 (40-60) VBG HCO3 (21-28) mmol/l VBG Total CO2 (22-28) mmol.L VBG O2 Sat (Calc) (40-65) % VBG Base Excess (0.0-2.0) mmol/L VBG Potassium (3.6-5.2) mmol/L Hgb O2 Saturation (95.0-98.0) % Glucose (65-105) mg/dl Lactate (0.7-2.1) mmol/L FiO2 % Sodium 135 (132-148) mmol/L Potassium 3.6 (3.6-5.0) mmol/L Chloride 93 L (98-107) mmol/L Carbon Dioxide 30 (21-33) mmol/L Anion Gap 16 (10-20) BUN 25 H (7-21) mg/dL Creatinine 1.4 (0.5-1.4) mg/dL Est GFR ( Amer) 51 Est GFR (Non-Af Amer) 42 POC Glucose (mg/dL) (65-110) mg/dL Random Glucose 125 H (70-110) mg/dL Calcium 6.9 L* (8.4-10.5) mg/dL Total Bilirubin 19.9 H* (0.2-1.3) mg/dL AST 2638 H (14-36) U/L ALT 330 H (7-56) U/L Alkaline Phosphatase 334 H (38-126) U/L Ammonia (9-33) umol/L Total Protein 5.6 L (5.8-8.3) g/dL Albumin 2.3 L (3.0-4.8) g/dL Globulin 3.2 gm/dL Albumin/Globulin Ratio 0.7 L (1.1-1.8) Arterial Blood Potassium (3.6-5.2) mmol/L Venous Blood Potassium (3.6-5.2) mmol/L Vancomycin Trough (5.0-10.0) ug/mL Random Vancomycin (20.0-40.0) ug/mL Blood Type Antibody Screen Crossmatch BBK History Checked 11/18/16 11/17/16 11/17/16 Range/Units 03:05 21:45 18:30 WBC 9.6 D (4.5-11.0) 10^3/ul RBC 2.78 L (3.5-6.1) 10^6/uL Hgb 8.5 L D (12.0-16.0) g/dL Hct 24.2 L (36.0-48.0) % MCV 87.1 D (80.0-105.0) fl MCH 30.6 (25.0-35.0) pg MCHC 35.1 (31.0-37.0) g/dl RDW 15.2 H (11.5-14.5) % Plt Count 32 L* (120.0-450.0) 10^3/uL MPV 9.7 (7.0-11.0) fl Baso % (Auto) 0.8 (0.0-3.0) % Baso # 0.08 (0.0-2.0) K/mm3 Corrected WBC (Man) 1.7 L (4.5-11.0) K/mm3 Neutrophils % (Manual) 78 H (50.0-70.0) % Band Neutrophils % 1 (0-2) % Lymphocytes % (Manual) 15 L (22.0-35.0) % Monocytes % (Manual) 2 (1.0-6.0) % Eosinophils % (Manual) (0.0-3.0) % Metamyelocytes % 1 % Myelocytes % 3 % Nucleated RBC % 480 % Platelet Evaluation Low (NORMAL) Large Platelets Polychromasia Slight Hypochromasia 2+ Poikilocytosis (manual 1+ Anisocytosis (manual) 2+ Microcytosis (manual) Macrocytosis (manual) Spherocytes Sickle Cells 1+ Target Cells Slight Tear Drop Cells Slight Ovalocytes 1+ Stomatocytes [place]ena Cells 1+ Schistocytes Retic Count (0.5-1.5) % PT (9.9-11.8) Seconds INR (0.93-1.08) pCO2 43 (35-45) mm/Hg pO2 27.0 L* (80-100) mm/Hg HCO3 21.2 (21-28) mmol/L ABG pH 7.30 L (7.35-7.45) ABG Total CO2 22.5 (22-28) mmol.L ABG O2 Saturation 52.7 L (95-98) % ABG O2 Content 3.4 L (15-23) ML/dl ABG Base Excess -4.7 L (-2.0-3.0) mmol/L ABG Hemoglobin 4.9 L (11.7-17.4) g/dL ABG Carboxyhemoglobin 4.8 H (0.5-1.5) % POC ABG HHb (Measured) 44.3 H (0-5) % ABG Methemoglobin 1.6 (0.0-3.0) % ABG O2 Capacity 6.5 L (16-24) mL/dl ABG Potassium (3.6-5.2) mmol/L VBG pH (7.32-7.43) VBG pCO2 (40-60) VBG HCO3 (21-28) mmol/l VBG Total CO2 (22-28) mmol.L VBG O2 Sat (Calc) (40-65) % VBG Base Excess (0.0-2.0) mmol/L VBG Potassium (3.6-5.2) mmol/L Hgb O2 Saturation 49.4 L (95.0-98.0) % Glucose (65-105) mg/dl Lactate (0.7-2.1) mmol/L FiO2 60.0 % Sodium (132-148) mmol/L Potassium (3.6-5.0) mmol/L Chloride (98-107) mmol/L Carbon Dioxide (21-33) mmol/L Anion Gap (10-20) BUN (7-21) mg/dL Creatinine (0.5-1.4) mg/dL Est GFR ( Amer) Est GFR (Non-Af Amer) POC Glucose (mg/dL) (65-110) mg/dL Random Glucose (70-110) mg/dL Calcium (8.4-10.5) mg/dL Total Bilirubin (0.2-1.3) mg/dL AST (14-36) U/L ALT (7-56) U/L Alkaline Phosphatase (38-126) U/L Ammonia (9-33) umol/L Total Protein (5.8-8.3) g/dL Albumin (3.0-4.8) g/dL Globulin gm/dL Albumin/Globulin Ratio (1.1-1.8) Arterial Blood Potassium (3.6-5.2) mmol/L Venous Blood Potassium (3.6-5.2) mmol/L Vancomycin Trough (5.0-10.0) ug/mL Random Vancomycin 19.8 L (20.0-40.0) ug/mL Blood Type Antibody Screen Crossmatch BBK History Checked 11/17/16 11/17/16 11/17/16 Range/Units 16:00 16:00 16:00 WBC (4.5-11.0) 10^3/ul RBC (3.5-6.1) 10^6/uL Hgb (12.0-16.0) g/dL Hct (36.0-48.0) % MCV (80.0-105.0) fl MCH (25.0-35.0) pg MCHC (31.0-37.0) g/dl RDW (11.5-14.5) % Plt Count (120.0-450.0) 10^3/uL MPV (7.0-11.0) fl Baso % (Auto) (0.0-3.0) % Baso # (0.0-2.0) K/mm3 Corrected WBC (Man) 6.2 (4.5-11.0) K/mm3 Neutrophils % (Manual) 61 (50.0-70.0) % Band Neutrophils % 9 H (0-2) % Lymphocytes % (Manual) 19 L (22.0-35.0) % Monocytes % (Manual) 4 (1.0-6.0) % Eosinophils % (Manual) 1 (0.0-3.0) % Metamyelocytes % 1 % Myelocytes % 5 % Nucleated RBC % 583 % Platelet Evaluation Normal (NORMAL) Large Platelets Present Polychromasia Hypochromasia 2+ Poikilocytosis (manual Anisocytosis (manual) 1+ Microcytosis (manual) 2+ Macrocytosis (manual) Slight Spherocytes Slight Sickle Cells 1+ Target Cells 1+ Tear Drop Cells Ovalocytes Stomatocytes Slight Aleena Cells Schistocytes Slight Retic Count 11.71 H* (0.5-1.5) % PT (9.9-11.8) Seconds INR (0.93-1.08) pCO2 (35-45) mm/Hg pO2 (80-100) mm/Hg HCO3 (21-28) mmol/L ABG pH (7.35-7.45) ABG Total CO2 (22-28) mmol.L ABG O2 Saturation (95-98) % ABG O2 Content (15-23) ML/dl ABG Base Excess (-2.0-3.0) mmol/L ABG Hemoglobin (11.7-17.4) g/dL ABG Carboxyhemoglobin (0.5-1.5) % POC ABG HHb (Measured) (0-5) % ABG Methemoglobin (0.0-3.0) % ABG O2 Capacity (16-24) mL/dl ABG Potassium (3.6-5.2) mmol/L VBG pH (7.32-7.43) VBG pCO2 (40-60) VBG HCO3 (21-28) mmol/l VBG Total CO2 (22-28) mmol.L VBG O2 Sat (Calc) (40-65) % VBG Base Excess (0.0-2.0) mmol/L VBG Potassium (3.6-5.2) mmol/L Hgb O2 Saturation (95.0-98.0) % Glucose (65-105) mg/dl Lactate (0.7-2.1) mmol/L FiO2 % Sodium (132-148) mmol/L Potassium (3.6-5.0) mmol/L Chloride (98-107) mmol/L Carbon Dioxide (21-33) mmol/L Anion Gap (10-20) BUN (7-21) mg/dL Creatinine (0.5-1.4) mg/dL Est GFR ( Amer) Est GFR (Non-Af Amer) POC Glucose (mg/dL) (65-110) mg/dL Random Glucose (70-110) mg/dL Calcium (8.4-10.5) mg/dL Total Bilirubin (0.2-1.3) mg/dL AST 2820 H (14-36) U/L ALT (7-56) U/L Alkaline Phosphatase (38-126) U/L Ammonia (9-33) umol/L Total Protein (5.8-8.3) g/dL Albumin (3.0-4.8) g/dL Globulin gm/dL Albumin/Globulin Ratio (1.1-1.8) Arterial Blood Potassium (3.6-5.2) mmol/L Venous Blood Potassium (3.6-5.2) mmol/L Vancomycin Trough (5.0-10.0) ug/mL Random Vancomycin (20.0-40.0) ug/mL Blood Type Antibody Screen Crossmatch BBK History Checked 11/16/16 Range/Units 20:00 WBC (4.5-11.0) 10^3/ul RBC (3.5-6.1) 10^6/uL Hgb (12.0-16.0) g/dL Hct (36.0-48.0) % MCV (80.0-105.0) fl MCH (25.0-35.0) pg MCHC (31.0-37.0) g/dl RDW (11.5-14.5) % Plt Count (120.0-450.0) 10^3/uL MPV (7.0-11.0) fl Baso % (Auto) (0.0-3.0) % Baso # (0.0-2.0) K/mm3 Corrected WBC (Man) (4.5-11.0) K/mm3 Neutrophils % (Manual) (50.0-70.0) % Band Neutrophils % (0-2) % Lymphocytes % (Manual) (22.0-35.0) % Monocytes % (Manual) (1.0-6.0) % Eosinophils % (Manual) (0.0-3.0) % Metamyelocytes % % Myelocytes % % Nucleated RBC % % Platelet Evaluation (NORMAL) Large Platelets Polychromasia Hypochromasia Poikilocytosis (manual Anisocytosis (manual) Microcytosis (manual) Macrocytosis (manual) Spherocytes Sickle Cells Target Cells Tear Drop Cells Ovalocytes Stomatocytes [place] Cells Schistocytes Retic Count (0.5-1.5) % PT (9.9-11.8) Seconds INR (0.93-1.08) pCO2 (35-45) mm/Hg pO2 (80-100) mm/Hg HCO3 (21-28) mmol/L ABG pH (7.35-7.45) ABG Total CO2 (22-28) mmol.L ABG O2 Saturation (95-98) % ABG O2 Content (15-23) ML/dl ABG Base Excess (-2.0-3.0) mmol/L ABG Hemoglobin (11.7-17.4) g/dL ABG Carboxyhemoglobin (0.5-1.5) % POC ABG HHb (Measured) (0-5) % ABG Methemoglobin (0.0-3.0) % ABG O2 Capacity (16-24) mL/dl ABG Potassium (3.6-5.2) mmol/L VBG pH (7.32-7.43) VBG pCO2 (40-60) VBG HCO3 (21-28) mmol/l VBG Total CO2 (22-28) mmol.L VBG O2 Sat (Calc) (40-65) % VBG Base Excess (0.0-2.0) mmol/L VBG Potassium (3.6-5.2) mmol/L Hgb O2 Saturation (95.0-98.0) % Glucose (65-105) mg/dl Lactate (0.7-2.1) mmol/L FiO2 % Sodium (132-148) mmol/L Potassium (3.6-5.0) mmol/L Chloride (98-107) mmol/L Carbon Dioxide (21-33) mmol/L Anion Gap (10-20) BUN (7-21) mg/dL Creatinine (0.5-1.4) mg/dL Est GFR ( Amer) Est GFR (Non-Af Amer) POC Glucose (mg/dL) (65-110) mg/dL Random Glucose (70-110) mg/dL Calcium (8.4-10.5) mg/dL Total Bilirubin (0.2-1.3) mg/dL AST (14-36) U/L ALT (7-56) U/L Alkaline Phosphatase (38-126) U/L Ammonia (9-33) umol/L Total Protein (5.8-8.3) g/dL Albumin (3.0-4.8) g/dL Globulin gm/dL Albumin/Globulin Ratio (1.1-1.8) Arterial Blood Potassium (3.6-5.2) mmol/L Venous Blood Potassium (3.6-5.2) mmol/L Vancomycin Trough (5.0-10.0) ug/mL Random Vancomycin (20.0-40.0) ug/mL Blood Type B POSITIVE Antibody Screen Negative Crossmatch See Detail BBK History Checked Patient has bt Laboratory Results - last 24 hr 11/16/16 11/17/16 11/17/16 20:00 16:00 16:00 WBC RBC Hgb Hct MCV MCH MCHC RDW Plt Count MPV Baso % (Auto) Baso # Corrected WBC (Man) 6.2 Neutrophils % (Manual) 61 Band Neutrophils % 9 H Lymphocytes % (Manual) 19 L Monocytes % (Manual) 4 Eosinophils % (Manual) 1 Metamyelocytes % 1 Myelocytes % 5 Nucleated RBC % 583 Platelet Evaluation Normal Large Platelets Present Polychromasia Hypochromasia 2+ Poikilocytosis (manual Anisocytosis (manual) 1+ Microcytosis (manual) 2+ Macrocytosis (manual) Slight Spherocytes Slight Sickle Cells 1+ Target Cells 1+ Tear Drop Cells Ovalocytes Stomatocytes Slight [place] Cells Schistocytes Slight Retic Count PT INR pCO2 pO2 HCO3 ABG pH ABG Total CO2 ABG O2 Saturation ABG O2 Content ABG Base Excess ABG Hemoglobin ABG Carboxyhemoglobin POC ABG HHb (Measured) ABG Methemoglobin ABG O2 Capacity ABG Potassium VBG pH VBG pCO2 VBG HCO3 VBG Total CO2 VBG O2 Sat (Calc) VBG Base Excess VBG Potassium Hgb O2 Saturation Glucose Lactate FiO2 Sodium Potassium Chloride Carbon Dioxide Anion Gap BUN Creatinine Est GFR ( Amer) Est GFR (Non-Af Amer) POC Glucose (mg/dL) Random Glucose Calcium Total Bilirubin AST 2820 H ALT Alkaline Phosphatase Ammonia Total Protein Albumin Globulin Albumin/Globulin Ratio Arterial Blood Potassium Venous Blood Potassium Vancomycin Trough Random Vancomycin Blood Type B POSITIVE Antibody Screen Negative Crossmatch See Detail BBK History Checked Patient has bt 11/17/16 11/17/16 11/17/16 16:00 18:30 21:45 WBC RBC Hgb Hct MCV MCH MCHC RDW Plt Count MPV Baso % (Auto) Baso # Corrected WBC (Man) Neutrophils % (Manual) Band Neutrophils % Lymphocytes % (Manual) Monocytes % (Manual) Eosinophils % (Manual) Metamyelocytes % Myelocytes % Nucleated RBC % Platelet Evaluation Large Platelets Polychromasia Hypochromasia Poikilocytosis (manual Anisocytosis (manual) Microcytosis (manual) Macrocytosis (manual) Spherocytes Sickle Cells Target Cells Tear Drop Cells Ovalocytes Stomatocytes [place] Cells Schistocytes Retic Count 11.71 H* PT INR pCO2 43 pO2 27.0 L* HCO3 21.2 ABG pH 7.30 L ABG Total CO2 22.5 ABG O2 Saturation 52.7 L ABG O2 Content 3.4 L ABG Base Excess -4.7 L ABG Hemoglobin 4.9 L ABG Carboxyhemoglobin 4.8 H POC ABG HHb (Measured) 44.3 H ABG Methemoglobin 1.6 ABG O2 Capacity 6.5 L ABG Potassium VBG pH VBG pCO2 VBG HCO3 VBG Total CO2 VBG O2 Sat (Calc) VBG Base Excess VBG Potassium Hgb O2 Saturation 49.4 L Glucose Lactate FiO2 60.0 Sodium Potassium Chloride Carbon Dioxide Anion Gap BUN Creatinine Est GFR ( Amer) Est GFR (Non-Af Amer) POC Glucose (mg/dL) Random Glucose Calcium Total Bilirubin AST ALT Alkaline Phosphatase Ammonia Total Protein Albumin Globulin Albumin/Globulin Ratio Arterial Blood Potassium Venous Blood Potassium Vancomycin Trough Random Vancomycin 19.8 L Blood Type Antibody Screen Crossmatch BBK History Checked 11/18/16 11/18/16 11/18/16 03:05 06:30 06:30 WBC 9.6 D 14.7 H D RBC 2.78 L 3.09 L Hgb 8.5 L D 9.4 L Hct 24.2 L 26.4 L MCV 87.1 D 85.4 MCH 30.6 30.4 MCHC 35.1 35.6 RDW 15.2 H 15.4 H Plt Count 32 L* 40 L* MPV 9.7 9.3 Baso % (Auto) 0.8 Baso # 0.08 Corrected WBC (Man) 1.7 L Neutrophils % (Manual) 78 H Band Neutrophils % 1 Lymphocytes % (Manual) 15 L Monocytes % (Manual) 2 Eosinophils % (Manual) Metamyelocytes % 1 Myelocytes % 3 Nucleated RBC % 480 Platelet Evaluation Low Large Platelets Polychromasia Slight Hypochromasia 2+ Poikilocytosis (manual 1+ Anisocytosis (manual) 2+ Microcytosis (manual) Macrocytosis (manual) Spherocytes Sickle Cells 1+ Target Cells Slight Tear Drop Cells Slight Ovalocytes 1+ Stomatocytes [place] Cells 1+ Schistocytes Retic Count PT INR pCO2 pO2 HCO3 ABG pH ABG Total CO2 ABG O2 Saturation ABG O2 Content ABG Base Excess ABG Hemoglobin ABG Carboxyhemoglobin POC ABG HHb (Measured) ABG Methemoglobin ABG O2 Capacity ABG Potassium VBG pH VBG pCO2 VBG HCO3 VBG Total CO2 VBG O2 Sat (Calc) VBG Base Excess VBG Potassium Hgb O2 Saturation Glucose Lactate FiO2 Sodium 135 Potassium 3.6 Chloride 93 L Carbon Dioxide 30 Anion Gap 16 BUN 25 H Creatinine 1.4 Est GFR ( Amer) 51 Est GFR (Non-Af Amer) 42 POC Glucose (mg/dL) Random Glucose 125 H Calcium 6.9 L* Total Bilirubin 19.9 H* AST 2638 H ALT 330 H Alkaline Phosphatase 334 H Ammonia Total Protein 5.6 L Albumin 2.3 L Globulin 3.2 Albumin/Globulin Ratio 0.7 L Arterial Blood Potassium Venous Blood Potassium Vancomycin Trough Random Vancomycin Blood Type Antibody Screen Crossmatch BBK History Checked 11/18/16 11/18/16 11/18/16 06:30 06:55 11:10 WBC RBC Hgb Hct MCV MCH MCHC RDW Plt Count MPV Baso % (Auto) Baso # Corrected WBC (Man) Neutrophils % (Manual) Band Neutrophils % Lymphocytes % (Manual) Monocytes % (Manual) Eosinophils % (Manual) Metamyelocytes % Myelocytes % Nucleated RBC % Platelet Evaluation Large Platelets Polychromasia Hypochromasia Poikilocytosis (manual Anisocytosis (manual) Microcytosis (manual) Macrocytosis (manual) Spherocytes Sickle Cells Target Cells Tear Drop Cells Ovalocytes Stomatocytes [place] Cells Schistocytes Retic Count PT 24.8 H INR 2.30 H pCO2 27 L pO2 224.0 H HCO3 22.6 ABG pH 7.53 H ABG Total CO2 23.4 ABG O2 Saturation 101.6 H ABG O2 Content ABG Base Excess 1.1 ABG Hemoglobin ABG Carboxyhemoglobin POC ABG HHb (Measured) ABG Methemoglobin ABG O2 Capacity ABG Potassium 4.2 VBG pH VBG pCO2 VBG HCO3 VBG Total CO2 VBG O2 Sat (Calc) VBG Base Excess VBG Potassium Hgb O2 Saturation Glucose 114 H Lactate 4.8 H* FiO2 100.0 Sodium 135.0 Potassium Chloride 106.0 Carbon Dioxide Anion Gap BUN Creatinine Est GFR ( Amer) Est GFR (Non-Af Amer) POC Glucose (mg/dL) 105 Random Glucose Calcium Total Bilirubin AST ALT Alkaline Phosphatase Ammonia Total Protein Albumin Globulin Albumin/Globulin Ratio Arterial Blood Potassium 4.2 Venous Blood Potassium Vancomycin Trough Random Vancomycin Blood Type Antibody Screen Crossmatch BBK History Checked 11/18/16 11/18/16 11/18/16 11:34 11:34 11:34 WBC RBC Hgb Hct MCV MCH MCHC RDW Plt Count MPV Baso % (Auto) Baso # Corrected WBC (Man) Neutrophils % (Manual) Band Neutrophils % Lymphocytes % (Manual) Monocytes % (Manual) Eosinophils % (Manual) Metamyelocytes % Myelocytes % Nucleated RBC % Platelet Evaluation Large Platelets Polychromasia Hypochromasia Poikilocytosis (manual Anisocytosis (manual) Microcytosis (manual) Macrocytosis (manual) Spherocytes Sickle Cells Target Cells Tear Drop Cells Ovalocytes Stomatocytes [place] Cells Schistocytes Retic Count PT INR pCO2 pO2 65 H HCO3 ABG pH ABG Total CO2 ABG O2 Saturation ABG O2 Content ABG Base Excess ABG Hemoglobin ABG Carboxyhemoglobin POC ABG HHb (Measured) ABG Methemoglobin ABG O2 Capacity ABG Potassium VBG pH 7.39 VBG pCO2 49.0 VBG HCO3 29.7 H VBG Total CO2 31.2 H VBG O2 Sat (Calc) 98.9 H VBG Base Excess 3.7 H VBG Potassium 3.7 Hgb O2 Saturation Glucose 131 H Lactate 5.8 H* FiO2 21.0 Sodium 134.0 Potassium Chloride 96.0 L Carbon Dioxide Anion Gap BUN Creatinine Est GFR ( Amer) Est GFR (Non-Af Amer) POC Glucose (mg/dL) Random Glucose Calcium Total Bilirubin AST ALT Alkaline Phosphatase Ammonia 23 Total Protein Albumin Globulin Albumin/Globulin Ratio Arterial Blood Potassium Venous Blood Potassium 3.7 Vancomycin Trough 21.3 H* Random Vancomycin Blood Type Antibody Screen Crossmatch BBK History Checked 11/18/16 16:24 WBC RBC Hgb Hct MCV MCH MCHC RDW Plt Count MPV Baso % (Auto) Baso # Corrected WBC (Man) Neutrophils % (Manual) Band Neutrophils % Lymphocytes % (Manual) Monocytes % (Manual) Eosinophils % (Manual) Metamyelocytes % Myelocytes % Nucleated RBC % Platelet Evaluation Large Platelets Polychromasia Hypochromasia Poikilocytosis (manual Anisocytosis (manual) Microcytosis (manual) Macrocytosis (manual) Spherocytes Sickle Cells Target Cells Tear Drop Cells Ovalocytes Stomatocytes [place] Cells Schistocytes Retic Count PT INR pCO2 pO2 HCO3 ABG pH ABG Total CO2 ABG O2 Saturation ABG O2 Content ABG Base Excess ABG Hemoglobin ABG Carboxyhemoglobin POC ABG HHb (Measured) ABG Methemoglobin ABG O2 Capacity ABG Potassium VBG pH VBG pCO2 VBG HCO3 VBG Total CO2 VBG O2 Sat (Calc) VBG Base Excess VBG Potassium Hgb O2 Saturation Glucose Lactate FiO2 Sodium Potassium Chloride Carbon Dioxide Anion Gap BUN Creatinine Est GFR ( Amer) Est GFR (Non-Af Amer) POC Glucose (mg/dL) 124 H Random Glucose Calcium Total Bilirubin AST ALT Alkaline Phosphatase Ammonia Total Protein Albumin Globulin Albumin/Globulin Ratio Arterial Blood Potassium Venous Blood Potassium Vancomycin Trough Random Vancomycin Blood Type Antibody Screen Crossmatch BBK History Checked Critical Care Progress Note - Nutrition Nutrition: Nutrition Category Date Time Status NPO Diet [DIET] Diets 11/18/16 Dinner Ordered Assessment/Plan - Assessment and Plan (Free Text) Plan: Patient seen and examined, on rounds with Dr Villanueva, agree with note, A/P. Patient is 36yo female with PMhx of sickle cell disease, on hydroxyurea, admitted to MICU with acute liver failure, sick cell crisis, acute chest syndrome, vaso-occlusive crisis, requiring exchange transfusion last night, and HD. Patient currently on Levophed 4mcg/min, with decreasing requirements. Patients liver function tests today including INR, slight improvement. Gi team currently in contact with [facility] for possible transfer, however that institution does not perform liver transplants at this time. I spoke to [facility]- Liver transplant team, Dr Mathew-fellow, and discussed the case with him, he informed me that the patient is not liver transplant candidate at this time. Will continue with aggressive care. Patient remains intubated and sedated Sickle Cell Disease Vaso-occlusive crisis s/p exchange transfusion Acute Chest Syndrome Renal failure s/p HD Coagulopathy Recommend - keep intubated, sedated, repeat ABG - Duonebs - pulm toilet - cont with broad spectrum abx, Cefepime, Vanco - check urine Lg, Strep - check procalcitonin - follow up cultures - Hold all BP meds - HD as per Renal - follow up hematology - q6hr INR, CBC, CMP - Rifaxamin, Lactulose - check Ammonia level - follow up GI - monitor FS - monitor electrolytes - titrate levopehed, goal MAP 65 - monitor HH - DVT ppx SCDs - GI ppx, Pepcid - patient at high risk for morbidity and mortality - awaiting possible transfer to [facility] critical care time: 45 minutes
[2016-11-18] MEDS: Multivitamin With Minerals Tab PO SCH (15:47)
--- NOTE | 2016-11-18 16:56 | CP.PCM.PN ---
<Liu Moya - Last Filed: 11/18/16 16:49> Subjective - Date & Time of Evaluation Date of Evaluation: 11/18/16 Time of Evaluation: 07:20 - Subjective Subjective: Medicine Progress note. Dr. Green Pt seen and examined at bedside. Patient was intubated overnight to protect airway. Dialysis access for obtained for exchange transfusion. Patient is currently intubated, sedated. Arousable to tactile and verbal stimuli. PRVC 100% fio2, 5PEEP. Requiring pressors NE@5mcg Objective - Vital Signs/Intake and Output Vital Signs (last 24 hours): Temp Pulse Resp BP Pulse Ox 98.5 F 102 H 17 86/52 L 95 11/18/16 10:26 11/18/16 15:44 11/18/16 10:26 11/18/16 15:30 11/18/16 06:00 Intake and Output: 11/18/16 11/18/16 06:59 18:59 Intake Total 500 33 Output Total 300 Balance 200 33 - Medications Medications: Current Medications Albuterol/Ipratropium (Duoneb 3 Mg/0.5 Mg (3 Ml) Ud) 3 ml IH [id number] [facility] Last Admin: 11/18/16 13:11 Dose: 3 ml Budesonide (Pulmicort Respules) 0.5 mg IH [id number] [facility] Last Admin: 11/18/16 07:27 Dose: 0.5 mg Ergocalciferol (Drisdol 50,000 Intl Units Cap) 1 cap PO QWK [facility] Last Admin: 11/12/16 09:20 Dose: 1 cap Folic Acid (Folic Acid) 1 mg PO DAILY [facility] Last Admin: 11/18/16 15:46 Dose: Not Given Furosemide (Lasix) 40 mg IVP DAILY [facility] Last Admin: 11/17/16 09:00 Dose: 40 mg Heparin Sodium (Porcine) (Heparin) 5,000 units SC Q12 ARLETTE PRN Reason: Protocol Last Admin: 11/16/16 21:44 Dose: Not Given Hydromorphone HCl (Dilaudid) 1 mg IVP Q3H PRN PRN Reason: Pain, severe (8-10) Last Admin: 11/18/16 13:12 Dose: 1 mg Hydroxyurea (Hydrea) 500 mg PO DAILY [facility] Last Admin: 11/18/16 15:47 Dose: Not Given Vancomycin HCl (Vancomycin 1gm) 1 gm in 250 mls @ 167 mls/hr IVPB DAILY ARLETTE PRN Reason: Protocol Last Admin: 11/17/16 09:30 Dose: 167 mls/hr Cefepime HCl (Maxipime 1gm) 1 gm in 100 mls @ 100 mls/hr IVPB Q24H ARLETTE PRN Reason: Protocol Last Admin: 11/18/16 13:15 Dose: 100 mls/hr Dextrose (Dextrose 10% In Water) 500 mls @ 20 mls/hr IV .Q24H [facility]LETTE Last Admin: 11/17/16 18:30 Dose: 20 mls/hr Sodium Bicarbonate 150 meq/ (Dextrose) 1,150 mls @ 125 mls/hr IV .[id number] [facility] Last Admin: 11/17/16 18:00 Dose: 125 mls/hr Propofol (Diprivan) 1,000 mg in 100 mls @ 2.259 mls/hr IV .Q24H PRN; Protocol; 5 MCG/KG/MIN PRN Reason: TITRATE PER MD ORDER Last Titration: 11/18/16 06:00 Dose: 15 mcg/kg/min, 6.777 mls/hr NOREPINEPHRINE BIT/0.9 % NACL (Levophed 4 Mg/ 250 Ml Ns Premixed) 4 mg in 250 mls @ 15 mls/hr IV .[id number] PRN; Protocol; 4 MCG/MIN PRN Reason: TITRATE PER MD ORDER Last Titration: 11/18/16 09:28 Dose: 5 mcg/min, 18.75 mls/hr Lactic Acid (Lac-Hydrin 12% Cream (140 G)) 0 ea TOP DAILY PRN PRN Reason: Wound Lactulose (Enulose) 20 gm PO BID [facility] Last Admin: 11/18/16 15:46 Dose: Not Given Midazolam HCl (Versed Inj) 1 mg IVP Q3H PRN PRN Reason: sedation Multivitamins/Minerals (Therapeutic-M Tab) 1 tab PO DAILY [facility] Last Admin: 11/18/16 15:47 Dose: Not Given Non-Formulary Medication (Mometasone [Asmanex Twisthaler 110 Mcg]) 100 mcg IH BID [facility] Last Admin: 11/15/16 21:20 Dose: Not Given Pantoprazole Sodium (Protonix Inj) 40 mg IVP DAILY [facility] Last Admin: 11/18/16 13:14 Dose: 40 mg Rifaximin (Xifaxan) 550 mg PO BID ARLETTE PRN Reason: Protocol Last Admin: 11/18/16 15:47 Dose: Not Given Vitamin A (Vitamin A & D Oint Ud Foilpak) 1 ea TOP Q8 PRN PRN Reason: Dry skin Last Admin: 11/18/16 13:21 Dose: 1 ea - Labs Labs: 11/18/16 06:30 11/18/16 06:30 PT 24.8 Seconds (9.9-11.8) H 11/18/16 06:30 INR 2.30 (0.93-1.08) H 11/18/16 06:30 - Constitutional Appears: Chronically Ill - Head Exam Head Exam: ATRAUMATIC, NORMAL INSPECTION, NORMOCEPHALIC - ENT Exam ENT Exam: Mucous Membranes Dry Additional comments: dried blood noted in mouth and lips - Respiratory Exam Respiratory Exam: absent: Rhonchi, Wheezes Additional comments: intubated, on vent. - Cardiovascular Exam Cardiovascular Exam: RRR. absent: JVD - GI/Abdominal Exam GI & Abdominal Exam: Firm, Rigid Additional comments: Patient with firm abdomen. No apparent tenderness upon palpation, however, patient is sedated - Extremities Exam Additional comments: Left groin HD access - Neurological Exam Additional comments: Intubated, sedated Assessment and Plan - Assessment and Plan (Free Text) Assessment: 36yo F with PMHx including Sickle cell disease, Bipolar disorder, Cerebral palsy , Asthma, CHF here for RUQ abd pain. Hospital course complicated by thrombocytopenia, coagulopathy. Found to have MELITON and apparent Shock liver 1. Generalized pain. likely secondary to Sickle cell crisis continue to monitor will transfuse if Hb <7 Hydroxyurea Pain management Heme following Abd US - mild ascites. Abd Xray - no signs of obstruction 2. Liver disease Abd US - patent portal vein. Transaminitis coagulopathy noted Thrombocytopenia noted. Transfuse prn likely secondary to shock liver Hyperbilirubinemia improving GI following Plans for liver transplant once medically stable to transfer to [facility] ceruloplasmin wnl lipase wnl afp wnl 3. MELITON Nephro following Plans for exchange transfusion 4. CHF CXR with some pulmonary congestion EF - 39.7% in June 2016 Cardiology following 5. Respiratory failure intubated on vent sedated continue to monitor breathing treatments ventilatory management as per ICU 6. Bacteremia GPC in Blood Cxs Urine Cxs negative leukocytosis ID following Continue IV Abx 7. Electrolyte abnormalities monitor and replete as needed 8. Hx of Bipolar Disorder continue home meds Psych consulted 9. PPx Protonix SCDs Discussed case with Dr. Norma Moya PGY1 <Marco Green - Last Filed: 11/18/16 18:42> Objective - Vital Signs/Intake and Output Vital Signs (last 24 hours): Temp Pulse Resp BP Pulse Ox 98.5 F 102 H 17 86/52 L 95 11/18/16 10:26 11/18/16 15:44 11/18/16 10:26 11/18/16 15:30 11/18/16 06:00 Intake and Output: 11/18/16 11/18/16 06:59 18:59 Intake Total 500 33 Output Total 300 Balance 200 33 - Medications Medications: Current Medications Albuterol/Ipratropium (Duoneb 3 Mg/0.5 Mg (3 Ml) Ud) 3 ml IH [id number] [facility] Last Admin: 11/18/16 13:11 Dose: 3 ml Budesonide (Pulmicort Respules) 0.5 mg IH [id number] [facility] Last Admin: 11/18/16 07:27 Dose: 0.5 mg Ergocalciferol (Drisdol 50,000 Intl Units Cap) 1 cap PO QWK [facility] Last Admin: 11/12/16 09:20 Dose: 1 cap Folic Acid (Folic Acid) 1 mg PO DAILY [facility] Last Admin: 11/18/16 15:46 Dose: Not Given Furosemide (Lasix) 40 mg IVP DAILY [facility] Last Admin: 11/17/16 09:00 Dose: 40 mg Heparin Sodium (Porcine) (Heparin) 5,000 units SC Q12 ARLETTE PRN Reason: Protocol Last Admin: 11/16/16 21:44 Dose: Not Given Hydromorphone HCl (Dilaudid) 1 mg IVP Q3H PRN PRN Reason: Pain, severe (8-10) Last Admin: 11/18/16 13:12 Dose: 1 mg Hydroxyurea (Hydrea) 500 mg PO DAILY [facility] Last Admin: 09/25/17 15:47 Dose: Not Given Vancomycin HCl (Vancomycin 1gm) 1 gm in 250 mls @ 167 mls/hr IVPB DAILY ARLETTE PRN Reason: Protocol Last Admin: 11/17/16 09:30 Dose: 167 mls/hr Cefepime HCl (Maxipime 1gm) 1 gm in 100 mls @ 100 mls/hr IVPB Q24H ARLETTE PRN Reason: Protocol Last Admin: 11/18/16 13:15 Dose: 100 mls/hr Dextrose (Dextrose 10% In Water) 500 mls @ 20 mls/hr IV .Q24H [facility] Last Admin: 11/17/16 18:30 Dose: 20 mls/hr Sodium Bicarbonate 150 meq/ (Dextrose) 1,150 mls @ 125 mls/hr IV .Q9H12M [facility] Last Admin: 11/17/16 18:00 Dose: 125 mls/hr Propofol (Diprivan) 1,000 mg in 100 mls @ 2.259 mls/hr IV .Q24H PRN; Protocol; 5 MCG/KG/MIN PRN Reason: TITRATE PER MD ORDER Last Titration: 11/18/16 06:00 Dose: 15 mcg/kg/min, 6.777 mls/hr NOREPINEPHRINE BIT/0.9 % NACL (Levophed 4 Mg/ 250 Ml Ns Premixed) 4 mg in 250 mls @ 15 mls/hr IV [id number] PRN; Protocol; 4 MCG/MIN PRN Reason: TITRATE PER MD ORDER Last Titration: 11/18/16 09:28 Dose: 5 mcg/min, 18.75 mls/hr Lactic Acid (Lac-Hydrin 12% Cream (140 G)) 0 ea TOP DAILY PRN PRN Reason: Wound Lactulose (Enulose) 20 gm PO BID [facility] Last Admin: 11/18/16 15:46 Dose: Not Given Midazolam HCl (Versed Inj) 1 mg IVP Q3H PRN PRN Reason: sedation Multivitamins/Minerals (Therapeutic-M Tab) 1 tab PO DAILY [facility] Last Admin: 11/18/16 15:47 Dose: Not Given Non-Formulary Medication (Mometasone [Asmanex Twisthaler 110 Mcg]) 100 mcg IH BID [facility] Last Admin: 11/15/16 21:20 Dose: Not Given Pantoprazole Sodium (Protonix Inj) 40 mg IVP DAILY [facility] Last Admin: 11/18/16 13:14 Dose: 40 mg Rifaximin (Xifaxan) 550 mg PO BID ARLETTE PRN Reason: Protocol Last Admin: 11/18/16 15:47 Dose: Not Given Vitamin A (Vitamin A & D Oint Ud Foilpak) 1 ea TOP Q8 PRN PRN Reason: Dry skin Last Admin: 11/18/16 13:21 Dose: 1 ea - Labs Labs: 11/18/16 06:30 11/18/16 06:30 PT 24.8 Seconds (9.9-11.8) H 11/18/16 06:30 INR 2.30 (0.93-1.08) H 11/18/16 06:30 Attending/Attestation - Attestation I have personally seen and examined this patient.: Yes I have fully participated in the care of the patient.: Yes I have reviewed all pertinent clinical information, including history, physical exam and plan: Yes Notes (Text): 11/18/16 18:35 36 year old female with past medical history of sickle cell disease/anemia, bipolar disorder, CHF and asthma who presented with sickle cell crisis. Hospital course complicated with respiratory distress s/p intubation and shock now on pressor support. GI is following for severe transaminitis. Plan is for possible transfer to [facility]. Plasmapheresis and red cell exchange as per hematology and nephrology. Continue with antibiotics as per ID for UTI. BCx x1 + for coag neg staph, possibly contaminate as repeat cultures are negative. Prognosis is guarded. Marco Green MD Hospitalist.
--- NOTE | 2016-11-18 17:55 | PN ---
DATE: SUBJECTIVE: The patient developed respiratory failure and required intubation yesterday. She is also profusely bleeding from the IV access site and orally. The patient received multiple units of fresh frozen plasma. The patient is hypotensive. PHYSICAL EXAMINATION: VITAL SIGNS: Blood pressure 95/70, heart rate 97, temperature 98.5. HEENT: Pale conjunctiva. CHEST: Absent breath sounds over the base. HEART: S1 and S2, regular. EXTREMITIES: 2+ pitting edema. LABORATORY DATA: SMA-7: Sodium 135, potassium 3.6, chloride 93, CO2 is 30, glucose 125, BUN 25 and creatinine 1.4. Calcium is 6.9, total bilirubin is 19.9, AST and ALT are 2638 and 313, and alkaline phosphatase is 334. Hemoglobin and hematocrit 9.4 and 26.4, white count 14.7, platelet count is 40,000. Today's, INR is 2.3 and PT 24.8. Abdomen ultrasound, minimal upper abdominal ascites, no large ascites. ASSESSMENT: 1. Respiratory failure. 2. Thrombocytopenia and coagulopathy. 3. Sickle cell crisis. 4. Iron overload. 5. Acute hepatitis rule out hepatic encephalopathy. 6. Significant jaundice. RECOMMENDATIONS: Continue current Diprivan infusion. Discontinue subcutaneous heparin and hydroxyurea which are discontinued so far, Levophed was started at 5 mcg per minute and on 09:30 this morning. Case was discussed with medical team. The patient is still expected to be transferred to [facility] for possible liver transplant. Overall prognosis is grave. Pedro Luis Deshpande MD
[2016-11-18 19:51] LABS: BASO # 0.16 K/mm3 (0.0-2.0); BASO % 0.6 % (0.0-3.0); MEAN CELL VOLUME 85.2 fl (80.0-105.0); MEAN CORPUSCULAR HEMOGLOBIN 31.5 pg (25.0-35.0); MEAN PLATELET VOLUME 9.4 fl (7.0-11.0); PLATELET COUNT 118 10^3/uL (120.0-450.0)
[2016-11-18 19:58] LABS: INR 2.04 (0.93-1.08)
[2016-11-18 20:03] LABS: WHITE BLOOD COUNT 26.2 10^3/ul (4.5-11.0)
[2016-11-18 20:05] LABS: VENOUS BLOOD GAS BASE EXCESS 2.8 mmol/L (0.0-2.0); VENOUS BLOOD PH 7.39 (7.32-7.43)
--- NOTE | 2016-11-18 21:44 | CP.PCM.PN ---
Objective - Vital Signs/Intake and Output Vital Signs (last 24 hours): Temp Pulse Resp BP Pulse Ox 98.5 F 102 H 17 86/52 L 95 11/18/16 10:26 11/18/16 15:44 11/18/16 10:26 11/18/16 15:30 11/18/16 06:00 Intake and Output: 11/18/16 11/19/16 18:59 06:59 Intake Total 828 220 Output Total 25 Balance 803 220 - Medications Medications: Current Medications Albuterol/Ipratropium (Duoneb 3 Mg/0.5 Mg (3 Ml) Ud) 3 ml IH [id number] [facility] Last Admin: 11/18/16 20:27 Dose: 3 ml Budesonide (Pulmicort Respules) 0.5 mg IH [id number] [facility] Last Admin: 11/18/16 20:27 Dose: 0.5 mg Ergocalciferol (Drisdol 50,000 Intl Units Cap) 1 cap PO QWK [facility] Last Admin: 11/12/16 09:20 Dose: 1 cap Folic Acid (Folic Acid) 1 mg PO DAILY [facility] Last Admin: 11/18/16 15:46 Dose: Not Given Furosemide (Lasix) 40 mg IVP DAILY [facility] Last Admin: 11/17/16 09:00 Dose: 40 mg Heparin Sodium (Porcine) (Heparin) 5,000 units SC Q12 [facility] PRN Reason: Protocol Last Admin: 11/16/16 21:44 Dose: Not Given Hydromorphone HCl (Dilaudid) 1 mg IVP Q3H PRN PRN Reason: Pain, severe (8-10) Last Admin: 11/18/16 13:12 Dose: 1 mg Hydroxyurea (Hydrea) 500 mg PO DAILY [facility] Last Admin: 11/18/16 15:47 Dose: Not Given Vancomycin HCl (Vancomycin 1gm) 1 gm in 250 mls @ 167 mls/hr IVPB DAILY [facility] PRN Reason: Protocol Last Admin: 11/17/16 09:30 Dose: 167 mls/hr Cefepime HCl (Maxipime 1gm) 1 gm in 100 mls @ 100 mls/hr IVPB Q24H [facility] PRN Reason: Protocol Last Admin: 11/18/16 13:15 Dose: 100 mls/hr Dextrose (Dextrose 10% In Water) 500 mls @ 20 mls/hr IV .Q24H [facility] Last Admin: 11/18/16 19:44 Dose: 20 mls/hr Sodium Bicarbonate 150 meq/ (Dextrose) 1,150 mls @ 125 mls/hr IV .Q9H12M [facility] Last Admin: 11/17/16 18:00 Dose: 125 mls/hr Propofol (Diprivan) 1,000 mg in 100 mls @ 2.259 mls/hr IV .Q24H PRN; Protocol; 5 MCG/KG/MIN PRN Reason: TITRATE PER MD ORDER Last Admin: 11/18/16 19:42 Dose: 15 mcg/kg/min, 6.777 mls/hr NOREPINEPHRINE BIT/0.9 % NACL (Levophed 4 Mg/ 250 Ml Ns Premixed) 4 mg in 250 mls @ 15 mls/hr IV .[id number] PRN; Protocol; 4 MCG/MIN PRN Reason: TITRATE PER MD ORDER Last Admin: 11/18/16 19:43 Dose: 5 mcg/min, 18.75 mls/hr Lactic Acid (Lac-Hydrin 12% Cream (140 G)) 0 ea TOP DAILY PRN PRN Reason: Wound Lactulose (Enulose) 20 gm PO BID [facility] Last Admin: 11/18/16 15:46 Dose: Not Given Midazolam HCl (Versed Inj) 1 mg IVP Q3H PRN PRN Reason: sedation Multivitamins/Minerals (Therapeutic-M Tab) 1 tab PO DAILY [facility] Last Admin: 11/18/16 15:47 Dose: Not Given Non-Formulary Medication (Mometasone [Asmanex Twisthaler 110 Mcg]) 100 mcg IH BID [facility] Last Admin: 11/15/16 21:20 Dose: Not Given Pantoprazole Sodium (Protonix Inj) 40 mg IVP DAILY [facility] Last Admin: 11/18/16 13:14 Dose: 40 mg Rifaximin (Xifaxan) 550 mg PO BID [facility] PRN Reason: Protocol Last Admin: 11/18/16 15:47 Dose: Not Given Vitamin A (Vitamin A & D Oint Ud Foilpak) 1 ea TOP Q8 PRN PRN Reason: Dry skin Last Admin: 11/18/16 13:21 Dose: 1 ea - Labs Labs: 11/18/16 19:35 11/18/16 06:30 PT 22.0 Seconds (9.9-11.8) H 11/18/16 19:35 INR 2.04 (0.93-1.08) H 11/18/16 19:35 Assessment and Plan (1) Acute renal failure Status: Acute (2) Acute hypoxemic respiratory failure Status: Acute (3) Acute exacerbation of CHF (congestive heart failure) Status: Acute (4) Acute liver failure Status: Acute (5) Sickle cell anemia with crisis Status: Acute
--- NOTE | 2016-11-18 21:53 | CP.PCM.PN ---
Subjective - Date & Time of Evaluation Date of Evaluation: 11/18/16 Time of Evaluation: 19:00 - Subjective Subjective: Infectious Disease Follow Up: November 18, 2016 36 yo AA female well known to me from previous hospitalizations at [facility] and [facility] presented with generalized pains and admitted for Sickle Cell vasoocclusive Crisis. The patient was [place] [facility] [place]. She returns with abdominal pain, nausea, and vomiting. The patient did not exhibit a fever while hospitalized so far but came very close with a 100.0 F. Patient with nausea and vomiting and diarrhea. Her blood pressure is lower than her usual. Started on Zosyn for antibiotic treatment. Sudden elevation of LFTs. Zosyn stopped on 11/14/2016. Impending liver failure ? Acute Kidney Injury. Noted Vancomycin restarted. Would continue with Cefepime for the time being. There is a leukocytosis of 42.0 although corrected WBC is 7.8. Patient appears swollen in general. AST and ALT are still increasing. Chelation therapy still in progress. Undergoing red cell exchange transfusion and plasmapheresis yesterday as well as hemodialysis. Patient remains intubated and ventilated. Extremely poor prognosis. The patient is not a candidate for liver transplant at this time as per the [facility] Liver transplant center. Supportive care. Renal dosing of antibiotics. Objective - Vital Signs/Intake and Output Vital Signs (last 24 hours): Temp Pulse Resp BP Pulse Ox 98.5 F 102 H 17 86/52 L 95 11/18/16 10:26 11/18/16 15:44 11/18/16 10:26 11/18/16 15:30 11/18/16 06:00 Intake and Output: 11/18/16 11/19/16 18:59 06:59 Intake Total 828 220 Output Total 25 Balance 803 220 - Medications Medications: Current Medications Albuterol/Ipratropium (Duoneb 3 Mg/0.5 Mg (3 Ml) Ud) 3 ml IH [id number] [facility] Last Admin: 11/18/16 20:27 Dose: 3 ml Budesonide (Pulmicort Respules) 0.5 mg IH [id number] [facility] Last Admin: 11/18/16 20:27 Dose: 0.5 mg Ergocalciferol (Drisdol 50,000 Intl Units Cap) 1 cap PO QWK [facility] Last Admin: 11/12/16 09:20 Dose: 1 cap Folic Acid (Folic Acid) 1 mg PO DAILY [facility] Last Admin: 11/18/16 15:46 Dose: Not Given Furosemide (Lasix) 40 mg IVP DAILY [facility] Last Admin: 11/17/16 09:00 Dose: 40 mg Heparin Sodium (Porcine) (Heparin) 5,000 units SC Q12 [facility] PRN Reason: Protocol Last Admin: 11/16/16 21:44 Dose: Not Given Hydromorphone HCl (Dilaudid) 1 mg IVP Q3H PRN PRN Reason: Pain, severe (8-10) Last Admin: 11/18/16 13:12 Dose: 1 mg Hydroxyurea (Hydrea) 500 mg PO DAILY [facility] Last Admin: 11/18/16 15:47 Dose: Not Given Vancomycin HCl (Vancomycin 1gm) 1 gm in 250 mls @ 167 mls/hr IVPB DAILY [facility] PRN Reason: Protocol Last Admin: 11/17/16 09:30 Dose: 167 mls/hr Cefepime HCl (Maxipime 1gm) 1 gm in 100 mls @ 100 mls/hr IVPB Q24H [facility] PRN Reason: Protocol Last Admin: 11/18/16 13:15 Dose: 100 mls/hr Dextrose (Dextrose 10% In Water) 500 mls @ 20 mls/hr IV .Q24H [facility] Last Admin: 11/18/16 19:44 Dose: 20 mls/hr Sodium Bicarbonate 150 meq/ (Dextrose) 1,150 mls @ 125 mls/hr IV .Q9H12M [facility] Last Admin: 11/17/16 18:00 Dose: 125 mls/hr Propofol (Diprivan) 1,000 mg in 100 mls @ 2.259 mls/hr IV .Q24H PRN; Protocol; 5 MCG/KG/MIN PRN Reason: TITRATE PER MD ORDER Last Admin: 11/18/16 19:42 Dose: 15 mcg/kg/min, 6.777 mls/hr NOREPINEPHRINE BIT/0.9 % NACL (Levophed 4 Mg/ 250 Ml Ns Premixed) 4 mg in 250 mls @ 15 mls/hr IV .[id number] PRN; Protocol; 4 MCG/MIN PRN Reason: TITRATE PER MD ORDER Last Admin: 11/18/16 19:43 Dose: 5 mcg/min, 18.75 mls/hr Lactic Acid (Lac-Hydrin 12% Cream (140 G)) 0 ea TOP DAILY PRN PRN Reason: Wound Lactulose (Enulose) 20 gm PO BID [facility] Last Admin: 11/18/16 15:46 Dose: Not Given Midazolam HCl (Versed Inj) 1 mg IVP Q3H PRN PRN Reason: sedation Multivitamins/Minerals (Therapeutic-M Tab) 1 tab PO DAILY [facility] Last Admin: 11/18/16 15:47 Dose: Not Given Non-Formulary Medication (Mometasone [Asmanex Twisthaler 110 Mcg]) 100 mcg IH BID [facility] Last Admin: 11/15/16 21:20 Dose: Not Given Pantoprazole Sodium (Protonix Inj) 40 mg IVP DAILY [facility] Last Admin: 11/18/16 13:14 Dose: 40 mg Rifaximin (Xifaxan) 550 mg PO BID [facility] PRN Reason: Protocol Last Admin: 11/18/16 15:47 Dose: Not Given Vitamin A (Vitamin A & D Oint Ud Foilpak) 1 ea TOP Q8 PRN PRN Reason: Dry skin Last Admin: 11/18/16 13:21 Dose: 1 ea - Labs Labs: 11/18/16 19:35 11/18/16 06:30 PT 22.0 Seconds (9.9-11.8) H 11/18/16 19:35 INR 2.04 (0.93-1.08) H 11/18/16 19:35 - Constitutional Appears: Toxic, No Acute Distress, Chronically Ill - Head Exam Head Exam: ATRAUMATIC, NORMOCEPHALIC - Eye Exam Eye Exam: EOMI, PERRL, Scleral icterus Pupil Exam: NORMAL ACCOMODATION, PERRL - ENT Exam ENT Exam: Mucous Membranes Moist, Normal External Ear Exam, TM's Normal Bilaterally - Neck Exam Neck Exam: Full ROM, Normal Inspection - Respiratory Exam Additional comments: intubated and ventilated. - Cardiovascular Exam Cardiovascular Exam: REGULAR RHYTHM, RRR, +S1, +S2 - GI/Abdominal Exam GI & Abdominal Exam: Soft, Normal Bowel Sounds. absent: Distended, Tenderness - Extremities Exam Extremities Exam: Joint Swelling, Pedal Edema - Neurological Exam Neurological Exam: Alert, Awake, CN II-XII Intact Additional comments: intubated and ventilated but awake Assessment and Plan - Assessment and Plan (Free Text) Assessment: 36 yo AA female with known Sickle Cell disease presenting with diarrhea and abdominal pain. Low blood pressure/borderline hypotension. Supportive care. Velarde cultures. No leukocytosis noted however. Coagulase negative staph according to FISH studies. Sudden increase in LFTs and creatinine. Continue with renal dosing of Cefepime for now. Vancomycin should be adjusted for renal function. LFT are continuing to increase. Acute Kidney Injury with creatinine of 2.5. Remains in MICU for further care. General edema of the patient. Today patient was intubated and ventilated. Increasing leukocytosis. If continues to increase, will consider use of meropenem. Noted that the patient's cultures are negative to date. LFTs remain severely elevated. 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 Extremely poor prognosis. Intubated and Ventilated. Generalized edema. Liver Cirrhosis. Not deemed a candidate for liver transplant by [facility] Liver [place]. Patient's prognosis remains poor. Thank you for allowing me to participate in the care of the patient, we will follow with you.
[2016-11-18 22:26] LABS: ARTERIAL BLOOD GAS HCO3 25.1 mmol/L (21-28); ARTERIAL BLOOD GAS O2 CAPACITY 11.2 mL/dl (16-24); ARTERIAL BLOOD GAS O2 CONTENT 11.4 ML/dl (15-23); ARTERIAL BLOOD GAS PH 7.44 (7.35-7.45); ARTERIAL BLOOD HGB O2 SAT 97.2 % (95.0-98.0); CARBOXYHEMOGLOBIN 2.3 % (0.5-1.5); HHB -1.6 % (0-5); METHEMOGLOBIN 2.1 % (0.0-3.0)
[2016-11-19] MEDS ORDERED: Meropenem 1g/NS 100mL IVPB 1 GM/100 ML PIGGYBACK IVPB SCH ×3 (00:45→10:00)
[2016-11-19] MEDS: Albuterol-Ipratrop 3 mg / 0.5 (3 ml) UD IH SCH ×4 (01:36→19:45)
[2016-11-19] MEDS ORDERED: Magnesium Sulfate 2 GM in Sodium Chloride 0.9% 100 ML IVPB ONE (03:51)
[2016-11-19 06:40] LABS: VENOUS BLOOD GAS BASE EXCESS -1.5 mmol/L (0.0-2.0); VENOUS BLOOD PH 7.37 (7.32-7.43)
[2016-11-19 06:42] LABS: BASO # 0.13 K/mm3 (0.0-2.0); BASO % 0.4 % (0.0-3.0); MEAN CELL VOLUME 86.7 fl (80.0-105.0); MEAN CORPUSCULAR HGB CONC 38.1 g/dl (31.0-37.0); MEAN PLATELET VOLUME 10.2 fl (7.0-11.0); PLATELET COUNT 90 10^3/uL (120.0-450.0); RED CELL DISTRIBUTION WIDTH 16.4 % (11.5-14.5)
[2016-11-19 06:45] LABS: HEMATOCRIT 18.9 % (36.0-48.0); WHITE BLOOD COUNT 33.2 10^3/ul (4.5-11.0)
[2016-11-19 06:58] LABS: ALB/GLOB RATIO 0.8 (1.1-1.8); MAGNESIUM 1.8 mg/dL (1.7-2.2); PHOSPHOROUS 5.3 mg/dL (2.5-4.5); TOTAL PROTEIN 5.5 g/dL (5.8-8.3)
[2016-11-19 07:07] LABS: BILIRUBIN,TOTAL 18.9 mg/dL (0.2-1.3); CALCIUM 6.7 mg/dL (8.4-10.5)
--- NOTE | 2016-11-19 07:23 | CP.PCM.PN ---
<SolitarioStephanie - Last Filed: 11/19/16 12:28> Subjective - Date & Time of Evaluation Date of Evaluation: 11/19/16 Time of Evaluation: 07:20 - Subjective Subjective: Gastroenterology Fellow/PGY5 Progress Note Patient remains intubated on ventilator and vasopressor support. Poor urine output. Nursing notes poor urine output, bleeding at dialysis femoral site, mouth and rectally. Aadenosine administered early this morning for SVT. Unable to complete a 12-point review of systems on ventilator support. Objective - Vital Signs/Intake and Output Vital Signs (last 24 hours): Temp Pulse Resp BP Pulse Ox 98 F 110 H 18 96/55 L 96 11/19/16 04:00 11/19/16 06:03 11/19/16 04:00 11/19/16 06:00 11/19/16 04:00 Intake and Output: 11/19/16 11/19/16 06:59 18:59 Intake Total 1360 Output Total 150 Balance 1210 - Medications Medications: Current Medications Albuterol/Ipratropium (Duoneb 3 Mg/0.5 Mg (3 Ml) Ud) 3 ml IH [id number] [facility] Last Admin: 11/19/16 01:36 Dose: 3 ml Budesonide (Pulmicort Respules) 0.5 mg IH [id number] [facility] Last Admin: 11/18/16 20:27 Dose: 0.5 mg Ergocalciferol (Drisdol 50,000 Intl Units Cap) 1 cap PO QWK [facility] Last Admin: 11/12/16 09:20 Dose: 1 cap Folic Acid (Folic Acid) 1 mg PO DAILY [facility] Last Admin: 11/18/16 15:46 Dose: Not Given Furosemide (Lasix) 40 mg IVP DAILY [facility] Last Admin: 11/17/16 09:00 Dose: 40 mg Heparin Sodium (Porcine) (Heparin) 5,000 units SC Q12 [facility] PRN Reason: Protocol Last Admin: 11/16/16 21:44 Dose: Not Given Hydrocortisone Sodium Succinate (Solu-Cortef) 50 mg IVP Q8 [facility] Hydromorphone HCl (Dilaudid) 1 mg IVP Q3H PRN PRN Reason: Pain, severe (8-10) Last Admin: 11/18/16 13:12 Dose: 1 mg Hydroxyurea (Hydrea) 500 mg PO DAILY [facility] Last Admin: 11/18/16 15:47 Dose: Not Given Vancomycin HCl (Vancomycin 1gm) 1 gm in 250 mls @ 167 mls/hr IVPB DAILY [facility] PRN Reason: Protocol Last Admin: 11/17/16 09:30 Dose: 167 mls/hr Cefepime HCl (Maxipime 1gm) 1 gm in 100 mls @ 100 mls/hr IVPB Q24H [facility] PRN Reason: Protocol Last Admin: 11/18/16 13:15 Dose: 100 mls/hr Dextrose (Dextrose 10% In Water) 500 mls @ 20 mls/hr IV .Q24H [facility] Last Admin: 11/18/16 19:44 Dose: 20 mls/hr Sodium Bicarbonate 150 meq/ (Dextrose) 1,150 mls @ 125 mls/hr IV .Q9H12M [facility] Last Admin: 11/17/16 18:00 Dose: 125 mls/hr Propofol (Diprivan) 1,000 mg in 100 mls @ 2.259 mls/hr IV .Q24H PRN; Protocol; 5 MCG/KG/MIN PRN Reason: TITRATE PER MD ORDER Last Titration: 11/19/16 02:31 Dose: 30 mcg/kg/min, 13.553 mls/hr NOREPINEPHRINE BIT/0.9 % NACL (Levophed 4 Mg/ 250 Ml Ns Premixed) 4 mg in 250 mls @ 15 mls/hr IV .[id number] PRN; Protocol; 4 MCG/MIN PRN Reason: TITRATE PER MD ORDER Last Titration: 11/19/16 04:00 Dose: 15 mcg/min, 56.25 mls/hr Meropenem 1g/NS 100mL IVPB (Meropenem 1g/Ns 100ml Ivpb) 1 gm in 100 mls @ 100 mls/hr IVPB Q8H [facility] PRN Reason: Protocol Stop: 11/19/16 10:59 Vasopressin 20 units/ Dextrose 101 mls @ 12.12 mls/hr IV .Q8H20M [facility]; 0.04 U/ MIN PRN Reason: Protocol Lactic Acid (Lac-Hydrin 12% Cream (140 G)) 0 ea TOP DAILY PRN PRN Reason: Wound Lactulose (Enulose) 20 gm PO BID [facility] Last Admin: 11/18/16 15:46 Dose: Not Given Midazolam HCl (Versed Inj) 1 mg IVP Q3H PRN PRN Reason: sedation Multivitamins/Minerals (Therapeutic-M Tab) 1 tab PO DAILY [facility] Last Admin: 11/18/16 15:47 Dose: Not Given Non-Formulary Medication (Mometasone [Asmanex Twisthaler 110 Mcg]) 100 mcg IH BID [facility] Last Admin: 11/15/16 21:20 Dose: Not Given Pantoprazole Sodium (Protonix Inj) 40 mg IVP DAILY [facility] Last Admin: 11/18/16 13:14 Dose: 40 mg Rifaximin (Xifaxan) 550 mg PO BID [facility] PRN Reason: Protocol Last Admin: 11/18/16 15:47 Dose: Not Given Vitamin A (Vitamin A & D Oint Ud Foilpak) 1 ea TOP Q8 PRN PRN Reason: Dry skin Last Admin: 11/18/16 13:21 Dose: 1 ea - Labs Labs: 11/19/16 06:31 11/19/16 06:31 PT 22.0 Seconds (9.9-11.8) H 11/18/16 19:35 INR 2.04 (0.93-1.08) H 11/18/16 19:35 - Constitutional Appears: Chronically Ill, Other - Head Exam Head Exam: ATRAUMATIC, NORMOCEPHALIC - Eye Exam Eye Exam: Scleral icterus Pupil Exam: PERRL. absent: Miosis, Mydriatic - ENT Exam ENT Exam: Mucous Membranes Dry Additional comments: dried blood at oropharynx, ETT in place, OGT in place with 150cc of bloody output - Neck Exam Neck Exam: Normal Inspection - Respiratory Exam Respiratory Exam: Rhonchi, Wheezes - Cardiovascular Exam Cardiovascular Exam: Tachycardia, +S1, +S2 - GI/Abdominal Exam GI & Abdominal Exam: Distended, Hypoactive Bowel Sounds Additional comments: anasarca, grimace noted to palpation - Extremities Exam Additional comments: 3+ B/L LE pitting edema, B/L UE edema - Neurological Exam Additional comments: unable to assess on ventilator with sedation; PERRL, B/L equivocal Babinski - Psychiatric Exam Additional comments: unable to assess on ventilator support with sedation - Skin Additional comments: right upper chest port-a-cath C/D/I, lower abdominal wall bruising secondary to heparin administration Assessment and Plan - Assessment and Plan (Free Text) Assessment: 36 year old female with history of sCHF, EF 35-40% with Grade 3 diastolic dysfunction, Bipolar disorder, asthma, cerebral palsy, sickle cell disease, and cirrhosis presenting with abdominal pain, nausea, and vomiting. Active treatment of hypoxic VDRF in setting of hepatic/metabolic encephalopathy, shock on vasopressor support, concernfor liver failure due to acute on chronic hyperbilirubinemia/transaminitis 2/2 acute sickle cell intrahepatic cholestasis with resultant renal failure on hemodialysis complicated by secondary hemochromatosis cirrhosis. Plan: >MELD 39 >POD0 (11/19) EGD with active bleeding from NGT/OGT upper esophagus trauma s/p epinephrine injection and Bipolar cautery with hemostasis - old blood throughout stomach without active bleeding, no varices >2 FFP and 1U pRBC today with esophagus bleed and coagulopathy >continue PPI BID, leave out NGT for healing >monitor H/H >continue Lactulose enemas, titrate to goal 2-3 BMs/ day >Hematology managing- exchange transfusions and plasmapheresis >primary team managing vasopressor support >primary team- contacted [facility]- not liver transplant candidate >[facility] Hepatology team- not transplant candidate, unstable critical status, not accepting for transfer to tertiary care, continue medical management >poor prognosis <Shaheed Renee - Last Filed: 11/19/16 12:42> Objective - Vital Signs/Intake and Output Vital Signs (last 24 hours): Temp Pulse Resp BP Pulse Ox 98 F 110 H 18 96/55 L 98 11/19/16 04:00 11/19/16 06:03 11/19/16 08:37 11/19/16 06:00 11/19/16 08:37 Intake and Output: 11/19/16 11/19/16 06:59 18:59 Intake Total 1510 Output Total 150 Balance 1360 - Medications Medications: Current Medications Albuterol/Ipratropium (Duoneb 3 Mg/0.5 Mg (3 Ml) Ud) 3 ml IH [id number] [facility] Last Admin: 11/19/16 07:34 Dose: 3 ml Budesonide (Pulmicort Respules) 0.5 mg IH [id number] [facility] Last Admin: 11/19/16 07:34 Dose: 0.5 mg Ergocalciferol (Drisdol 50,000 Intl Units Cap) 1 cap PO QWK [facility] Last Admin: 11/12/16 09:20 Dose: 1 cap Folic Acid (Folic Acid) 1 mg PO DAILY [facility] Last Admin: 11/18/16 15:46 Dose: Not Given Furosemide (Lasix) 40 mg IVP DAILY [facility] Last Admin: 11/17/16 09:00 Dose: 40 mg Heparin Sodium (Porcine) (Heparin) 5,000 units SC Q12 [facility] PRN Reason: Protocol Last Admin: 11/16/16 21:44 Dose: Not Given Hydrocortisone Sodium Succinate (Solu-Cortef) 50 mg IVP Q8 [facility] Last Admin: 11/19/16 07:32 Dose: 50 mg Hydromorphone HCl (Dilaudid) 1 mg IVP Q3H PRN PRN Reason: Pain, severe (8-10) Last Admin: 11/18/16 13:12 Dose: 1 mg Hydroxyurea (Hydrea) 500 mg PO DAILY [facility] Last Admin: 11/18/16 15:47 Dose: Not Given Vancomycin HCl (Vancomycin 1gm) 1 gm in 250 mls @ 167 mls/hr IVPB DAILY [facility] PRN Reason: Protocol Last Admin: 11/17/16 09:30 Dose: 167 mls/hr Cefepime HCl (Maxipime 1gm) 1 gm in 100 mls @ 100 mls/hr IVPB Q24H [facility] PRN Reason: Protocol Last Admin: 11/18/16 13:15 Dose: 100 mls/hr Dextrose (Dextrose 10% In Water) 500 mls @ 20 mls/hr IV .Q24H [facility] Last Admin: 11/18/16 19:44 Dose: 20 mls/hr Sodium Bicarbonate 150 meq/ (Dextrose) 1,150 mls @ 125 mls/hr IV .Q9H12M [facility] Last Admin: 11/17/16 18:00 Dose: 125 mls/hr Propofol (Diprivan) 1,000 mg in 100 mls @ 2.259 mls/hr IV .Q24H PRN; Protocol; 5 MCG/KG/MIN PRN Reason: TITRATE PER MD ORDER Last Titration: 11/19/16 02:31 Dose: 30 mcg/kg/min, 13.553 mls/hr NOREPINEPHRINE BIT/0.9 % NACL (Levophed 4 Mg/ 250 Ml Ns Premixed) 4 mg in 250 mls @ 15 mls/hr IV .[id number] PRN; Protocol; 4 MCG/MIN PRN Reason: TITRATE PER MD ORDER Last Admin: 11/19/16 07:26 Dose: 15 mcg/min, 56.25 mls/hr Vasopressin 20 units/ Dextrose 101 mls @ 12.12 mls/hr IV .Q8H20M [facility]; 0.04 U/ MIN PRN Reason: Protocol Lactic Acid (Lac-Hydrin 12% Cream (140 G)) 0 ea TOP DAILY PRN PRN Reason: Wound Lactulose (Generlac) 200 gm [place] Q6 [facility] Stop: 11/24/16 12:01 Midazolam HCl (Versed Inj) 1 mg IVP Q3H PRN PRN Reason: sedation Multivitamins/Minerals (Therapeutic-M Tab) 1 tab PO DAILY [facility] Last Admin: 11/18/16 15:47 Dose: Not Given Non-Formulary Medication (Mometasone [Asmanex Twisthaler 110 Mcg]) 100 mcg IH BID [facility] Last Admin: 11/15/16 21:20 Dose: Not Given Pantoprazole Sodium (Protonix Inj) 40 mg IVP Q12 [facility] Rifaximin (Xifaxan) 550 mg PO BID [facility] PRN Reason: Protocol Last Admin: 11/18/16 15:47 Dose: Not Given Vitamin A (Vitamin A & D Oint Ud Foilpak) 1 ea TOP Q8 PRN PRN Reason: Dry skin Last Admin: 11/18/16 13:21 Dose: 1 ea - Labs Labs: 11/19/16 10:00 11/19/16 10:00 PT 21.3 Seconds (9.9-11.8) H 11/19/16 10:00 INR 1.97 (0.93-1.08) H 11/19/16 10:00 APTT 83.0 Seconds (23.7-30.8) H* 11/19/16 10:00 Attending/Attestation - Attestation I have personally seen and examined this patient.: Yes I have fully participated in the care of the patient.: Yes I have reviewed all pertinent clinical information, including history, physical exam and plan: Yes Notes (Text): 11/19/16 12:37 36 year old female with h/o CHF, Bipolar d/o, SCD, CP, Cirrhosis a/w sickle cell crisis and now with progessive liver failure. 1. Upper GI bleeding 2. Cirrhosis 3. Hepatic encephalopathy Plan: -critically ill, hypotensive, on multiple pressors -on ventilator -developed signs of UGI bleeding today -now s/p urgent EGD showing mucosal trauma in the pharynx and upper esophagus with oozing and visible vessel s/p epi / bipolar (see note) -would not replace OGT at this time -contine PPI BID -no need for octreotide -reverse coagulopathy -discussed case with [facility] and [facility], not a candidate for transfer for consideration of liver transplant -appreciate hematology recs re: sickle cell disease -continue lactulose enemas and supportive measures per ICU
[2016-11-19] MEDS: NOREPINEPHRINE BIT/0.9 % NACL 4 MG/250 ML BAG IV PRN ×2 (07:26→21:27)
[2016-11-19] MEDS: Budesonide 0.5 mg/2 ml Inhal Susp UD IH SCH ×2 (07:34→19:45)
[2016-11-19 07:50] LABS: INR 2.05 (0.93-1.08)
[2016-11-19] MEDS: Vasopressin 20 UNITS in Dextrose 5% In Water 100 ML IV SCH ×3 (08:00→22:39)
--- NOTE | 2016-11-19 08:51 | RAD ---
HISTORY: f/u, intubated COMPARISON: 11/18/2016 FINDINGS: LUNGS: Probable subsegmental atelectasis at lung bases. No ej pulmonary infiltrate. PLEURA: No significant pleural effusion identified, no pneumothorax apparent. CARDIOVASCULAR: Heart size difficult to evaluate due to poor inspiratory effort and portable technique. Endotracheal tube tip is within 1 cm of tracheal jesu. Consider repositioning more proximally. Right central venous infusion port. OSSEOUS STRUCTURES: No significant abnormalities. VISUALIZED UPPER ABDOMEN: Normal. OTHER FINDINGS: None. IMPRESSION: Bibasilar subsegmental atelectasis. Endotracheal tube tip within 1 cm of tracheal jesu. Consider repositioning more proximally.
[2016-11-19] MEDS ORDERED: Pantoprazole 40mg/100ml IVPB 40 MG/100 ML BAG IVPB SCH (09:15)
[2016-11-19] MEDS ORDERED: Octreotide 1,250 MCG in Dextrose 5% In Water 250 ML IV SCH (09:15)
[2016-11-19 09:18] LABS: HEMATOCRIT 24.6 % (35.0-45.0); HEMOGLOBIN 8.9 g/dL (11.7-15.5); RDW 15.4 % (11.0-15.0)
--- NOTE | 2016-11-19 09:38 | CARD ---
APPROVED REPORT EKG Measurement Heart [id number] <Conclusion> Rapid SVT, new NSSTW changes
[2016-11-19] MEDS ORDERED: Phytonadione 10 MG in Sodium Chloride 0.9% 50 ML IV ONE (09:52)
[2016-11-19 10:28] LABS: ALB/GLOB RATIO 0.8 (1.1-1.8); MAGNESIUM 1.9 mg/dL (1.7-2.2); PHOSPHOROUS 5.7 mg/dL (2.5-4.5); POTASSIUM 4.3 mmol/L (3.6-5.0); TOTAL PROTEIN 5.8 g/dL (5.8-8.3)
[2016-11-19 10:47] LABS: BASO # 0.18 K/mm3 (0.0-2.0); BASO % 0.5 % (0.0-3.0); MEAN CELL VOLUME 87.4 fl (80.0-105.0); MEAN CORPUSCULAR HEMOGLOBIN 32.9 pg (25.0-35.0); MEAN CORPUSCULAR HGB CONC 37.6 g/dl (31.0-37.0); MEAN PLATELET VOLUME 10.4 fl (7.0-11.0); PLATELET COUNT 93 10^3/uL (120.0-450.0); RED CELL DISTRIBUTION WIDTH 16.5 % (11.5-14.5)
[2016-11-19 10:49] LABS: BILIRUBIN,TOTAL 19.7 mg/dL (0.2-1.3)
[2016-11-19 11:04] LABS: BAND 5 % (0-2); NEUTROPHIL 60 % (50.0-70.0)
[2016-11-19 11:05] LABS: METAMYELOCYTE 2 %; MYELOCYTE 4 %
[2016-11-19 11:06] LABS: ANISOCYTOSIS 2+; HYPOCHROMIA 2+; NUCLEATED RED BLOOD CELL 375 %; OVALOCYTES SLIGHT; PLATELET ESTIMATE LOW (NORMAL); POIKILOCYTOSIS 1+; POLYCHROMASIA 1+; SMUDGE CELLS PRESENT; SPHEROCYTE SLIGHT; TEAR DROP CELLS SLIGHT
[2016-11-19 11:10] LABS: WHITE BLOOD COUNT 36.4 10^3/ul (4.5-11.0)
[2016-11-19 11:12] LABS: HEMATOCRIT 19.4 % (36.0-48.0)
[2016-11-19] MEDS ORDERED: Propofol 10 mg/ml Inj (20 ML) ONE (11:12)
[2016-11-19] MEDS ORDERED: Etomidate 20 mg/10ml Inj IV ONE (11:13)
[2016-11-19] MEDS ORDERED: Lidocaine 2% Inj (20ml) ONE (11:13)
[2016-11-19 11:18] LABS: BAND 2 % (0-2); CORRECTED WBC 7.1 K/mm3 (4.5-11.0); METAMYELOCYTE 1 %; MYELOCYTE 3 %; NEUTROPHIL 72 % (50.0-70.0); NUCLEATED RED BLOOD CELL 410 %
[2016-11-19 11:19] LABS: ANISOCYTOSIS 1+; HYPOCHROMIA 2+; OVALOCYTES SLIGHT; PLATELET ESTIMATE LOW (NORMAL); POLYCHROMASIA SLIGHT; TEAR DROP CELLS SLIGHT
[2016-11-19 11:20] LABS: SMUDGE CELLS PRESENT
[2016-11-19 11:26] LABS: INR 1.97 (0.93-1.08)
[2016-11-19] MEDS ORDERED: Lactulose 10 gm/15 ml (Rectal Use) PR SCH (12:00)
--- NOTE | 2016-11-19 12:23 | RAD ---
HISTORY: confirm NGT placement COMPARISON: 11/19/2016 at 8:03 a.m. FINDINGS: LUNGS: Grossly limited evaluation due to very poor inspiratory effort and marked apical lordotic positioning of the patient for the examination. Opacity at left base may be artifactual. Follow-up advised. PLEURA: No significant pleural effusion identified, no pneumothorax apparent. CARDIOVASCULAR: Endotracheal tube and right central venous infusion port unchanged. New nasogastric tube extends to left upper quadrant of abdomen. OSSEOUS STRUCTURES: No significant abnormalities. VISUALIZED UPPER ABDOMEN: Normal. OTHER FINDINGS: None. IMPRESSION: Limited examination. Opacity at left base, possibly artifactual. Follow-up advised. New nasogastric tube ET tube unchanged.
[2016-11-19] MEDS: Lactulose 10 gm/15 ml (Rectal Use) PR SCH (12:30)
--- NOTE | 2016-11-19 13:29 | CP.CCUPN ---
<Johnny Gonzales - Last Filed: 11/19/16 13:22> CCU Subjective - Physician Review Subjective (Free Text): 11/19/16 13:29 Patient seen and examined at bedside in the ICU. Overnight, hypotension persisted despite application of Levophed, titrated up to 15mcg as of this AM. Remains ventilated and minimally responsive, to pain stimuli only. Hgb decreased from 9.4 to 7.2 this AM, but INR remains similar (was 2.04, today 2.05 ). NGT was placed for oral medication access, began to drain dark red blood. GI team made aware, Protonix/Octreotide drips started and 2 unit FFP/1 unit pRBCs ordered as per them. Bedside EGD was performed, found a bleeding site that was injected with Epinephrine and cauterized. Ordered switched to Protonix IV BID, stop both drips, no further NG tubes. 11/19/16 13:37 Critical Care Time Spent (in minutes): 45 CCU Objective - Vital Signs / Intake & Output Intake and Output (Last 8hrs): Intake & Output 11/18/16 11/19/16 11/19/16 22:59 06:59 14:59 Intake Total 1015 1290 Output Total 25 150 Balance 990 1140 Intake: IV 1015 1290 Left Femoral 970 right chest wall 720 Oral 0 Output: Urine 25 150 2-way Urethral 25 150 Other: # Bowel Movements 0 3 - Physical Exam Physical Exam Limitations: Positive for: Other (Intubated and sedated on Propofol) Head: Positive for: Atraumatic, Normocephalic. Negative for: Ecchymosis, Abrasion, Laceration Pupils: Positive for: PERRL, Sluggish Extroacular Muscles: Positive for: Other (not following commands, no avoidance of direct light challenge for PERRL assessment; was exhibiting some spontaneous movement of eyes and spontaneous eyelid openning while placing NG tube) Conjunctiva: Positive for: Icteric. Negative for: Normal Mouth: Positive for: Other (dried/crusted blood at lip line, but no clear sites of bleeding/oozing noted, ET in place). Negative for: Moist Mucous Membranes, Normal Tounge (small lac on underside of tongue), Normal Teeth (poor dentition) Pharnyx: Positive for: Other (some visualization of pharynx during NGT placement ; no gross bleeding/oozing sites, no masses noted) Nose (External): Positive for: Atraumatic, Other (no expistaxis or oozing/ crusting around the nares). Negative for: Abrasion, Contusion, Laceration Nose (Internal): Negative for: Epistaxis Neck: Positive for: Trachea Midline. Negative for: JVD Respiratory/Chest: Positive for: Good Air Exchange, Rhonchi, Other (R port in place- clean and dry, covered with bandaging; intubated and mechanically ventilated). Negative for: Clear to Auscultation (Mild ronchi in all haider, most prominent at expiration), Respiratory Distress, Accessory Muscle Use, Wheezes, Decreased Breath Sounds, Rales, Retracting Cardiovascular: Positive for: Normal S1, S2, Tachycardic (Rapid rate, regular rhythm). Negative for: Regular Rate and Rhythm, Murmurs, Bradycardic Abdomen: Negative for: Tenderness, Distention (firm but not grossly distended), Normal Bowel Sounds (decreased), Peritoneal Signs, Rebound, Guarding, Hernias Upper Extremity: Positive for: Edema (Moderated edematous in bilateral UE, +2 pitting edema extending from hands to mid-humerus), Swelling. Negative for: Normal Inspection, Cyanosis, NORMAL PULSES (faintly palpable radials B/L ( possibly 2/2 edema) but clearly ausculated radial pulse with Duplex) Lower Extremity: Positive for: Edema (+2-3 pitting edema in bilateral LE extending from feet to mid-thigh), Temperature Abnormalties (mild coolness to palpation at bilateral feet). Negative for: Normal Inspection (Left groin with HD TLC in place- dressing with saturated sanginous strike through, site continues to ooze), NORMAL PULSES (unable to palpate bilateral dorsalis pedis, likely 2/2 edema\), Cyanosis, Erythema Neurological: Positive for: Other (bilateral Plantar reflexes intact). Negative for: GCS=15 (intubated, sedated, score of 7 (E2, V1t, M4)), CN II-XII Intact, Motor Func Grossly Intact Skin: Positive for: Warm (except as documented in Lower extremities exam), Dry, Normal Color. Negative for: Rashes Psychiatric: Positive for: Other (intubated, sedated unable to assess) - Medications Active Medications: Active Medications Generic Name Dose Route Start Last Admin Trade Name Freq PRN Reason Stop Dose Admin Albuterol/Ipratropium 3 ml 11/16/16 14:00 11/19/16 07:34 Duoneb 3 Mg/0.5 Mg (3 Ml) Ud IH 3 ml [id number] ARLETTE Administration Budesonide 0.5 mg 11/16/16 20:00 11/19/16 07:34 Pulmicort Respules IH 0.5 mg [id number] ARLETTE Administration Ergocalciferol 1 cap 11/12/16 10:00 11/12/16 09:20 Drisdol 50,000 Intl Units Cap PO 1 cap QWK ARLETTE Administration Folic Acid 1 mg 11/12/16 10:00 11/18/16 15:46 Folic Acid PO Not Given DAILY [facility] Furosemide 40 mg 11/16/16 10:00 11/17/16 09:00 Lasix IVP 40 mg DAILY ARLETTE Administration Heparin Sodium (Porcine) 5,000 units 11/13/16 01:15 11/16/16 21:44 Heparin SC Not Given Q12 ARLETTE Protocol Hydrocortisone Sodium Succinate 50 mg 11/19/16 07:15 11/19/16 07:32 Solu-Cortef IVP 50 mg Q8 ARLETTE Administration Hydromorphone HCl 1 mg 11/15/16 11:24 11/18/16 13:12 Dilaudid IVP 1 mg Q3H PRN Administration Pain, severe (8-10) Hydroxyurea 500 mg 11/12/16 10:00 11/18/16 15:47 Hydrea PO Not Given DAILY ARLETTE Vancomycin HCl 1 gm in 250 mls @ 167 mls/hr 11/15/16 11:30 11/17/16 09:30 Vancomycin 1gm IVPB 167 mls/hr DAILY ARLETTE Administration Protocol Cefepime HCl 1 gm in 100 mls @ 100 mls/hr 11/15/16 13:15 11/18/16 13:15 Maxipime 1gm IVPB 100 mls/hr Q24H ARLETTE Administration Protocol Dextrose 500 mls @ 20 mls/hr 11/16/16 18:45 11/18/16 19:44 Dextrose 10% In Water IV 20 mls/hr .Q24H ARLETTE Administration Sodium Bicarbonate 150 meq/ 1,150 mls @ 125 mls/hr 11/16/16 23:15 11/17/16 18 :00 Dextrose IV 125 mls/hr .[id number] ARLETTE Administration Propofol 1,000 mg in 100 mls @ 2.259 mls/hr 11/17/16 20:53 11/19/16 02:31 Diprivan IV 30 mcg/kg/min .Q24H PRN 13.553 mls/hr TITRATE PER MD ORDER Titration Protocol 5 MCG/KG/MIN NOREPINEPHRINE BIT/0.9 % NACL 4 mg in 250 mls @ 15 mls/hr 11/18/16 06:33 07:26 Levophed 4 Mg/ 250 Ml Ns Premixed IV 15 mcg/min .[id number] PRN 56.25 mls/hr TITRATE PER MD ORDER Administration Protocol 4 MCG/MIN Vasopressin 20 units/ Dextrose 101 mls @ 12.12 mls/hr 11/19/16 07:15 IV .Q8H20M ARLETTE Protocol 0.04 U/MIN Lactic Acid 0 ea 11/13/16 09:22 Lac-Hydrin 12% Cream (140 G) TOP DAILY PRN Wound Lactulose 200 gm 11/19/16 12:00 Generlac MN 11/24/16 12:01 Q6 ARLETTE Midazolam HCl 1 mg 11/17/16 17:29 Versed Inj IVP Q3H PRN sedation Multivitamins/Minerals 1 tab 11/12/16 11:30 11/18/16 15:47 Therapeutic-M Tab PO Not Given DAILY [facility] Non-Formulary Medication 100 mcg 11/13/16 10:00 11/15/16 21:20 Mometasone [Asmanex Twisthaler 110 Mcg] IH Not Given BID [facility] Pantoprazole Sodium 40 mg 11/19/16 22:00 Protonix Inj IVP Q12 ARLETTE Rifaximin 550 mg 11/18/16 10:15 11/18/16 15:47 Xifaxan PO Not Given BID [facility] Protocol - Patient Studies Lab Studies: Microbiology Studies 11/14/16 18:06 Blood Culture - Preliminary Blood-Venous NO GROWTH AFTER 4 DAYS 11/14/16 16:47 Blood Culture - Preliminary Blood-Venous NO GROWTH AFTER 4 DAYS Lab Studies 11/19/16 11/19/16 11/19/16 Range/Units 11:07 10:05 10:00 WBC (4.5-11.0) 10^3/ul RBC (3.5-6.1) 10^6/uL Hgb (12.0-16.0) g/dL Hct (36.0-48.0) % MCV (80.0-105.0) fl MCH (25.0-35.0) pg MCHC (31.0-37.0) g/dl RDW (11.5-14.5) % Plt Count (120.0-450.0) 10^3/uL MPV (7.0-11.0) fl Baso % (Auto) (0.0-3.0) % Baso # (0.0-2.0) K/mm3 Corrected WBC (Man) (4.5-11.0) K/mm3 Neutrophils % (Manual) (50.0-70.0) % Band Neutrophils % (0-2) % Lymphocytes % (Manual) (22.0-35.0) % Monocytes % (Manual) (1.0-6.0) % Metamyelocytes % % Myelocytes % % Nucleated RBC % % Smudge Cells Platelet Evaluation (NORMAL) Polychromasia Hypochromasia Poikilocytosis (manual Anisocytosis (manual) Spherocytes Sickle Cells Tear Drop Cells Ovalocytes Hemoglobinopathy Red Blood Count (3.80-5.10) Mill/mcL Hemoglobinopathy Hct (35.0-45.0) % Hemoglobinopathy Hgb (11.7-15.5) g/dL Hemoglobinopathy MCV (80.0-100.0) fL Hemoglobinopathy MCH (27.0-33.0) pg Hemoglobinopathy RDW (11.0-15.0) % PT (9.9-11.8) Seconds INR (0.93-1.08) APTT (23.7-30.8) Seconds pCO2 (35-45) mm/Hg pO2 (30-55) mm/Hg HCO3 (21-28) mmol/L ABG pH (7.35-7.45) ABG Total CO2 (22-28) mmol.L ABG O2 Saturation (95-98) % ABG O2 Content (15-23) ML/dl ABG Base Excess (-2.0-3.0) mmol/L ABG Hemoglobin (11.7-17.4) g/dL ABG Carboxyhemoglobin (0.5-1.5) % POC ABG HHb (Measured) (0-5) % ABG Methemoglobin (0.0-3.0) % ABG O2 Capacity (16-24) mL/dl VBG pH (7.32-7.43) VBG pCO2 (40-60) VBG HCO3 (21-28) mmol/l VBG Total CO2 (22-28) mmol.L VBG O2 Sat (Calc) (40-65) % VBG Base Excess (0.0-2.0) mmol/L VBG Potassium (3.6-5.2) mmol/L Hgb O2 Saturation (95.0-98.0) % Sodium 132 (132-148) mmol/L Chloride 92 L (98-107) mmol/L Glucose (65-105) mg/dl Lactate (0.7-2.1) mmol/L FiO2 % Potassium 4.3 (3.6-5.0) mmol/L Carbon Dioxide 24 (21-33) mmol/L Anion Gap 20 (10-20) BUN 35 H (7-21) mg/dL Creatinine 1.8 H (0.5-1.4) mg/dL Est GFR ( Amer) 38 Est GFR (Non-Af Amer) 31 POC Glucose (mg/dL) 89 (65-110) mg/dL Random Glucose 93 (70-110) mg/dL Calcium 7.0 L (8.4-10.5) mg/dL Phosphorus 5.7 H (2.5-4.5) mg/dL Magnesium 1.9 (1.7-2.2) mg/dL Total Bilirubin 19.7 H* (0.2-1.3) mg/dL AST 2093 H (14-36) U/L ALT 296 H (7-56) U/L Alkaline Phosphatase 688 H (38-126) U/L Total Protein 5.8 (5.8-8.3) g/dL Albumin 2.5 L (3.0-4.8) g/dL Globulin 3.3 gm/dL Albumin/Globulin Ratio 0.8 L (1.1-1.8) Procalcitonin (0.19-0.49) NG/ML Venous Blood Potassium (3.6-5.2) mmol/L Vancomycin Trough (5.0-10.0) ug/mL Hemochromatos Mutation Blood Type B POSITIVE Antibody Screen Negative Crossmatch See Detail BBK History Checked Patient has bt 11/19/16 11/19/16 11/19/16 Range/Units 10:00 10:00 10:00 WBC 36.4 H* (4.5-11.0) 10^3/ul RBC 2.22 L (3.5-6.1) 10^6/uL Hgb 7.3 L (12.0-16.0) g/dL Hct 19.4 L* (36.0-48.0) % MCV 87.4 (80.0-105.0) fl MCH 32.9 (25.0-35.0) pg MCHC 37.6 H (31.0-37.0) g/dl RDW 16.5 H (11.5-14.5) % Plt Count 93 L (120.0-450.0) 10^3/uL MPV 10.4 (7.0-11.0) fl Baso % (Auto) 0.5 (0.0-3.0) % Baso # 0.18 (0.0-2.0) K/mm3 Corrected WBC (Man) 7.1 (4.5-11.0) K/mm3 Neutrophils % (Manual) 72 H (50.0-70.0) % Band Neutrophils % 2 (0-2) % Lymphocytes % (Manual) 20 L (22.0-35.0) % Monocytes % (Manual) 2 (1.0-6.0) % Metamyelocytes % 1 % Myelocytes % 3 % Nucleated RBC % 410 % Smudge Cells Present Platelet Evaluation Low (NORMAL) Polychromasia Slight Hypochromasia 2+ Poikilocytosis (manual Anisocytosis (manual) 1+ Spherocytes Sickle Cells Slight Tear Drop Cells Slight Ovalocytes Slight Hemoglobinopathy Red Blood Count (3.80-5.10) Mill/mcL Hemoglobinopathy Hct (35.0-45.0) % Hemoglobinopathy Hgb (11.7-15.5) g/dL Hemoglobinopathy MCV (80.0-100.0) fL Hemoglobinopathy MCH (27.0-33.0) pg Hemoglobinopathy RDW (11.0-15.0) % PT 21.3 H (9.9-11.8) Seconds INR 1.97 H (0.93-1.08) APTT 83.0 H* (23.7-30.8) Seconds pCO2 (35-45) mm/Hg pO2 (30-55) mm/Hg HCO3 (21-28) mmol/L ABG pH (7.35-7.45) ABG Total CO2 (22-28) mmol.L ABG O2 Saturation (95-98) % ABG O2 Content (15-23) ML/dl ABG Base Excess (-2.0-3.0) mmol/L ABG Hemoglobin (11.7-17.4) g/dL ABG Carboxyhemoglobin (0.5-1.5) % POC ABG HHb (Measured) (0-5) % ABG Methemoglobin (0.0-3.0) % ABG O2 Capacity (16-24) mL/dl VBG pH (7.32-7.43) VBG pCO2 (40-60) VBG HCO3 (21-28) mmol/l VBG Total CO2 (22-28) mmol.L VBG O2 Sat (Calc) (40-65) % VBG Base Excess (0.0-2.0) mmol/L VBG Potassium (3.6-5.2) mmol/L Hgb O2 Saturation (95.0-98.0) % Sodium (132-148) mmol/L Chloride (98-107) mmol/L Glucose (65-105) mg/dl Lactate (0.7-2.1) mmol/L FiO2 % Potassium (3.6-5.0) mmol/L Carbon Dioxide (21-33) mmol/L Anion Gap (10-20) BUN (7-21) mg/dL Creatinine (0.5-1.4) mg/dL Est GFR ( Amer) Est GFR (Non-Af Amer) POC Glucose (mg/dL) (65-110) mg/dL Random Glucose (70-110) mg/dL Calcium (8.4-10.5) mg/dL Phosphorus (2.5-4.5) mg/dL Magnesium (1.7-2.2) mg/dL Total Bilirubin (0.2-1.3) mg/dL AST (14-36) U/L ALT (7-56) U/L Alkaline Phosphatase (38-126) U/L Total Protein (5.8-8.3) g/dL Albumin (3.0-4.8) g/dL Globulin gm/dL Albumin/Globulin Ratio (1.1-1.8) Procalcitonin (0.19-0.49) NG/ML Venous Blood Potassium (3.6-5.2) mmol/L Vancomycin Trough 16.3 H* (5.0-10.0) ug/mL Hemochromatos Mutation Blood Type Antibody Screen Crossmatch BBK History Checked 11/19/16 11/19/16 11/19/16 Range/Units 06:31 06:31 06:31 WBC 33.2 H* D (4.5-11.0) 10^3/ul RBC 2.18 L (3.5-6.1) 10^6/uL Hgb 7.2 L (12.0-16.0) g/dL Hct 18.9 L* (36.0-48.0) % MCV 86.7 (80.0-105.0) fl MCH 33.0 (25.0-35.0) pg MCHC 38.1 H (31.0-37.0) g/dl RDW 16.4 H (11.5-14.5) % Plt Count 90 L (120.0-450.0) 10^3/uL MPV 10.2 (7.0-11.0) fl Baso % (Auto) 0.4 (0.0-3.0) % Baso # 0.13 (0.0-2.0) K/mm3 Corrected WBC (Man) 7.0 (4.5-11.0) K/mm3 Neutrophils % (Manual) 60 (50.0-70.0) % Band Neutrophils % 5 H (0-2) % Lymphocytes % (Manual) 28 (22.0-35.0) % Monocytes % (Manual) 1 (1.0-6.0) % Metamyelocytes % 2 % Myelocytes % 4 % Nucleated RBC % 375 % Smudge Cells Present Platelet Evaluation Low (NORMAL) Polychromasia 1+ Hypochromasia 2+ Poikilocytosis (manual 1+ Anisocytosis (manual) 2+ Spherocytes Slight Sickle Cells Slight Tear Drop Cells Slight Ovalocytes Slight Hemoglobinopathy Red Blood Count (3.80-5.10) Mill/mcL Hemoglobinopathy Hct (35.0-45.0) % Hemoglobinopathy Hgb (11.7-15.5) g/dL Hemoglobinopathy MCV (80.0-100.0) fL Hemoglobinopathy MCH (27.0-33.0) pg Hemoglobinopathy RDW (11.0-15.0) % PT 22.1 H (9.9-11.8) Seconds INR 2.05 H (0.93-1.08) APTT (23.7-30.8) Seconds pCO2 (35-45) mm/Hg pO2 (30-55) mm/Hg HCO3 (21-28) mmol/L ABG pH (7.35-7.45) ABG Total CO2 (22-28) mmol.L ABG O2 Saturation (95-98) % ABG O2 Content (15-23) ML/dl ABG Base Excess (-2.0-3.0) mmol/L ABG Hemoglobin (11.7-17.4) g/dL ABG Carboxyhemoglobin (0.5-1.5) % POC ABG HHb (Measured) (0-5) % ABG Methemoglobin (0.0-3.0) % ABG O2 Capacity (16-24) mL/dl VBG pH (7.32-7.43) VBG pCO2 (40-60) VBG HCO3 (21-28) mmol/l VBG Total CO2 (22-28) mmol.L VBG O2 Sat (Calc) (40-65) % VBG Base Excess (0.0-2.0) mmol/L VBG Potassium (3.6-5.2) mmol/L Hgb O2 Saturation (95.0-98.0) % Sodium 133 (132-148) mmol/L Chloride 93 L (98-107) mmol/L Glucose (65-105) mg/dl Lactate (0.7-2.1) mmol/L FiO2 % Potassium 4.0 (3.6-5.0) mmol/L Carbon Dioxide 23 (21-33) mmol/L Anion Gap 21 H (10-20) BUN 33 H (7-21) mg/dL Creatinine 1.8 H (0.5-1.4) mg/dL Est GFR ( Amer) 38 Est GFR (Non-Af Amer) 31 POC Glucose (mg/dL) (65-110) mg/dL Random Glucose 81 (70-110) mg/dL Calcium 6.7 L* (8.4-10.5) mg/dL Phosphorus 5.3 H (2.5-4.5) mg/dL Magnesium 1.8 (1.7-2.2) mg/dL Total Bilirubin 18.9 H* (0.2-1.3) mg/dL AST 1970 H (14-36) U/L ALT 283 H (7-56) U/L Alkaline Phosphatase 616 H D (38-126) U/L Total Protein 5.5 L (5.8-8.3) g/dL Albumin 2.4 L (3.0-4.8) g/dL Globulin 3.2 gm/dL Albumin/Globulin Ratio 0.8 L (1.1-1.8) Procalcitonin (0.19-0.49) NG/ML Venous Blood Potassium (3.6-5.2) mmol/L Vancomycin Trough (5.0-10.0) ug/mL Hemochromatos Mutation Blood Type Antibody Screen Crossmatch BBK History Checked 11/19/16 11/19/16 11/18/16 Range/Units 06:31 05:56 23:12 WBC (4.5-11.0) 10^3/ul RBC (3.5-6.1) 10^6/uL Hgb (12.0-16.0) g/dL Hct (36.0-48.0) % MCV (80.0-105.0) fl MCH (25.0-35.0) pg MCHC (31.0-37.0) g/dl RDW (11.5-14.5) % Plt Count (120.0-450.0) 10^3/uL MPV (7.0-11.0) fl Baso % (Auto) (0.0-3.0) % Baso # (0.0-2.0) K/mm3 Corrected WBC (Man) (4.5-11.0) K/mm3 Neutrophils % (Manual) (50.0-70.0) % Band Neutrophils % (0-2) % Lymphocytes % (Manual) (22.0-35.0) % Monocytes % (Manual) (1.0-6.0) % Metamyelocytes % % Myelocytes % % Nucleated RBC % % Smudge Cells Platelet Evaluation (NORMAL) Polychromasia Hypochromasia Poikilocytosis (manual Anisocytosis (manual) Spherocytes Sickle Cells Tear Drop Cells Ovalocytes Hemoglobinopathy Red Blood Count (3.80-5.10) Mill/mcL Hemoglobinopathy Hct (35.0-45.0) % Hemoglobinopathy Hgb (11.7-15.5) g/dL Hemoglobinopathy MCV (80.0-100.0) fL Hemoglobinopathy MCH (27.0-33.0) pg Hemoglobinopathy RDW (11.0-15.0) % PT (9.9-11.8) Seconds INR (0.93-1.08) APTT (23.7-30.8) Seconds pCO2 (35-45) mm/Hg pO2 78 H (30-55) mm/Hg HCO3 (21-28) mmol/L ABG pH (7.35-7.45) ABG Total CO2 (22-28) mmol.L ABG O2 Saturation (95-98) % ABG O2 Content (15-23) ML/dl ABG Base Excess (-2.0-3.0) mmol/L ABG Hemoglobin (11.7-17.4) g/dL ABG Carboxyhemoglobin (0.5-1.5) % POC ABG HHb (Measured) (0-5) % ABG Methemoglobin (0.0-3.0) % ABG O2 Capacity (16-24) mL/dl VBG pH 7.37 (7.32-7.43) VBG pCO2 41.0 (40-60) VBG HCO3 23.7 (21-28) mmol/l VBG Total CO2 25.0 (22-28) mmol.L VBG O2 Sat (Calc) 100.3 H (40-65) % VBG Base Excess -1.5 L (0.0-2.0) mmol/L VBG Potassium 4.0 (3.6-5.2) mmol/L Hgb O2 Saturation (95.0-98.0) % Sodium 132.0 (132-148) mmol/L Chloride 97.0 L (98-107) mmol/L Glucose 87 (65-105) mg/dl Lactate 9.1 H* (0.7-2.1) mmol/L FiO2 21.0 % Potassium (3.6-5.0) mmol/L Carbon Dioxide (21-33) mmol/L Anion Gap (10-20) BUN (7-21) mg/dL Creatinine (0.5-1.4) mg/dL Est GFR ( Amer) Est GFR (Non-Af Amer) POC Glucose (mg/dL) 81 100 (65-110) mg/dL Random Glucose (70-110) mg/dL Calcium (8.4-10.5) mg/dL Phosphorus (2.5-4.5) mg/dL Magnesium (1.7-2.2) mg/dL Total Bilirubin (0.2-1.3) mg/dL AST (14-36) U/L ALT (7-56) U/L Alkaline Phosphatase (38-126) U/L Total Protein (5.8-8.3) g/dL Albumin (3.0-4.8) g/dL Globulin gm/dL Albumin/Globulin Ratio (1.1-1.8) Procalcitonin (0.19-0.49) NG/ML Venous Blood Potassium 4.0 (3.6-5.2) mmol/L Vancomycin Trough (5.0-10.0) ug/mL Hemochromatos Mutation Blood Type Antibody Screen Crossmatch BBK History Checked 11/18/16 11/18/16 11/18/16 Range/Units 22:15 19:35 19:35 WBC 26.2 H* D (4.5-11.0) 10^3/ul RBC 2.70 L (3.5-6.1) 10^6/uL Hgb 8.5 L (12.0-16.0) g/dL Hct 23.0 L (36.0-48.0) % MCV 85.2 (80.0-105.0) fl MCH 31.5 (25.0-35.0) pg MCHC 37.0 (31.0-37.0) g/dl RDW 16.0 H (11.5-14.5) % Plt Count 118 L (120.0-450.0) 10^3/uL MPV 9.4 (7.0-11.0) fl Baso % (Auto) 0.6 (0.0-3.0) % Baso # 0.16 (0.0-2.0) K/mm3 Corrected WBC (Man) (4.5-11.0) K/mm3 Neutrophils % (Manual) (50.0-70.0) % Band Neutrophils % (0-2) % Lymphocytes % (Manual) (22.0-35.0) % Monocytes % (Manual) (1.0-6.0) % Metamyelocytes % % Myelocytes % % Nucleated RBC % % Smudge Cells Platelet Evaluation (NORMAL) Polychromasia Hypochromasia Poikilocytosis (manual Anisocytosis (manual) Spherocytes Sickle Cells Tear Drop Cells Ovalocytes Hemoglobinopathy Red Blood Count (3.80-5.10) Mill/mcL Hemoglobinopathy Hct (35.0-45.0) % Hemoglobinopathy Hgb (11.7-15.5) g/dL Hemoglobinopathy MCV (80.0-100.0) fL Hemoglobinopathy MCH (27.0-33.0) pg Hemoglobinopathy RDW (11.0-15.0) % PT 22.0 H (9.9-11.8) Seconds INR 2.04 H (0.93-1.08) APTT (23.7-30.8) Seconds pCO2 37 (35-45) mm/Hg pO2 260.0 H (30-55) mm/Hg HCO3 25.1 (21-28) mmol/L ABG pH 7.44 (7.35-7.45) ABG Total CO2 26.2 (22-28) mmol.L ABG O2 Saturation 101.7 H (95-98) % ABG O2 Content 11.4 L (15-23) ML/dl ABG Base Excess 0.9 (-2.0-3.0) mmol/L ABG Hemoglobin 7.8 L (11.7-17.4) g/dL ABG Carboxyhemoglobin 2.3 H (0.5-1.5) % POC ABG HHb (Measured) -1.6 L (0-5) % ABG Methemoglobin 2.1 (0.0-3.0) % ABG O2 Capacity 11.2 L (16-24) mL/dl VBG pH (7.32-7.43) VBG pCO2 (40-60) VBG HCO3 (21-28) mmol/l VBG Total CO2 (22-28) mmol.L VBG O2 Sat (Calc) (40-65) % VBG Base Excess (0.0-2.0) mmol/L VBG Potassium (3.6-5.2) mmol/L Hgb O2 Saturation 97.2 (95.0-98.0) % Sodium (132-148) mmol/L Chloride (98-107) mmol/L Glucose (65-105) mg/dl Lactate (0.7-2.1) mmol/L FiO2 100.0 % Potassium (3.6-5.0) mmol/L Carbon Dioxide (21-33) mmol/L Anion Gap (10-20) BUN (7-21) mg/dL Creatinine (0.5-1.4) mg/dL Est GFR ( Amer) Est GFR (Non-Af Amer) POC Glucose (mg/dL) (65-110) mg/dL Random Glucose (70-110) mg/dL Calcium (8.4-10.5) mg/dL Phosphorus (2.5-4.5) mg/dL Magnesium (1.7-2.2) mg/dL Total Bilirubin (0.2-1.3) mg/dL AST (14-36) U/L ALT (7-56) U/L Alkaline Phosphatase (38-126) U/L Total Protein (5.8-8.3) g/dL Albumin (3.0-4.8) g/dL Globulin gm/dL Albumin/Globulin Ratio (1.1-1.8) Procalcitonin (0.19-0.49) NG/ML Venous Blood Potassium (3.6-5.2) mmol/L Vancomycin Trough (5.0-10.0) ug/mL Hemochromatos Mutation Blood Type Antibody Screen Crossmatch BBK History Checked 11/18/16 11/18/16 11/18/16 Range/Units 19:35 16:24 11:34 WBC (4.5-11.0) 10^3/ul RBC (3.5-6.1) 10^6/uL Hgb (12.0-16.0) g/dL Hct (36.0-48.0) % MCV (80.0-105.0) fl MCH (25.0-35.0) pg MCHC (31.0-37.0) g/dl RDW (11.5-14.5) % Plt Count (120.0-450.0) 10^3/uL MPV (7.0-11.0) fl Baso % (Auto) (0.0-3.0) % Baso # (0.0-2.0) K/mm3 Corrected WBC (Man) (4.5-11.0) K/mm3 Neutrophils % (Manual) (50.0-70.0) % Band Neutrophils % (0-2) % Lymphocytes % (Manual) (22.0-35.0) % Monocytes % (Manual) (1.0-6.0) % Metamyelocytes % % Myelocytes % % Nucleated RBC % % Smudge Cells Platelet Evaluation (NORMAL) Polychromasia Hypochromasia Poikilocytosis (manual Anisocytosis (manual) Spherocytes Sickle Cells Tear Drop Cells Ovalocytes Hemoglobinopathy Red Blood Count (3.80-5.10) Mill/mcL Hemoglobinopathy Hct (35.0-45.0) % Hemoglobinopathy Hgb (11.7-15.5) g/dL Hemoglobinopathy MCV (80.0-100.0) fL Hemoglobinopathy MCH (27.0-33.0) pg Hemoglobinopathy RDW (11.0-15.0) % PT (9.9-11.8) Seconds INR (0.93-1.08) APTT (23.7-30.8) Seconds pCO2 (35-45) mm/Hg pO2 72 H (30-55) mm/Hg HCO3 (21-28) mmol/L ABG pH (7.35-7.45) ABG Total CO2 (22-28) mmol.L ABG O2 Saturation (95-98) % ABG O2 Content (15-23) ML/dl ABG Base Excess (-2.0-3.0) mmol/L ABG Hemoglobin (11.7-17.4) g/dL ABG Carboxyhemoglobin (0.5-1.5) % POC ABG HHb (Measured) (0-5) % ABG Methemoglobin (0.0-3.0) % ABG O2 Capacity (16-24) mL/dl VBG pH 7.39 (7.32-7.43) VBG pCO2 47.0 (40-60) VBG HCO3 28.5 H (21-28) mmol/l VBG Total CO2 29.9 H (22-28) mmol.L VBG O2 Sat (Calc) 100.0 H (40-65) % VBG Base Excess 2.8 H (0.0-2.0) mmol/L VBG Potassium 3.8 (3.6-5.2) mmol/L Hgb O2 Saturation (95.0-98.0) % Sodium 133.0 (132-148) mmol/L Chloride 96.0 L (98-107) mmol/L Glucose 113 H (65-105) mg/dl Lactate 6.0 H* (0.7-2.1) mmol/L FiO2 21.0 % Potassium (3.6-5.0) mmol/L Carbon Dioxide (21-33) mmol/L Anion Gap (10-20) BUN (7-21) mg/dL Creatinine (0.5-1.4) mg/dL Est GFR ( Amer) Est GFR (Non-Af Amer) POC Glucose (mg/dL) 124 H (65-110) mg/dL Random Glucose (70-110) mg/dL Calcium (8.4-10.5) mg/dL Phosphorus (2.5-4.5) mg/dL Magnesium (1.7-2.2) mg/dL Total Bilirubin (0.2-1.3) mg/dL AST (14-36) U/L ALT (7-56) U/L Alkaline Phosphatase (38-126) U/L Total Protein (5.8-8.3) g/dL Albumin (3.0-4.8) g/dL Globulin gm/dL Albumin/Globulin Ratio (1.1-1.8) Procalcitonin 3.42 H (0.19-0.49) NG/ML Venous Blood Potassium 3.8 (3.6-5.2) mmol/L Vancomycin Trough (5.0-10.0) ug/mL Hemochromatos Mutation Blood Type Antibody Screen Crossmatch BBK History Checked 11/18/16 11/14/16 Range/Units 03:05 16:47 WBC (4.5-11.0) 10^3/ul RBC (3.5-6.1) 10^6/uL Hgb (12.0-16.0) g/dL Hct (36.0-48.0) % MCV (80.0-105.0) fl MCH (25.0-35.0) pg MCHC (31.0-37.0) g/dl RDW (11.5-14.5) % Plt Count (120.0-450.0) 10^3/uL MPV (7.0-11.0) fl Baso % (Auto) (0.0-3.0) % Baso # (0.0-2.0) K/mm3 Corrected WBC (Man) (4.5-11.0) K/mm3 Neutrophils % (Manual) (50.0-70.0) % Band Neutrophils % (0-2) % Lymphocytes % (Manual) (22.0-35.0) % Monocytes % (Manual) (1.0-6.0) % Metamyelocytes % % Myelocytes % % Nucleated RBC % % Smudge Cells Platelet Evaluation (NORMAL) Polychromasia Hypochromasia Poikilocytosis (manual Anisocytosis (manual) Spherocytes Sickle Cells Tear Drop Cells Ovalocytes Hemoglobinopathy Red Blood Count 2.82 L (3.80-5.10) Mill/mcL Hemoglobinopathy Hct 24.6 L (35.0-45.0) % Hemoglobinopathy Hgb 8.9 L (11.7-15.5) g/dL Hemoglobinopathy MCV 87.3 (80.0-100.0) fL Hemoglobinopathy MCH 31.5 (27.0-33.0) pg Hemoglobinopathy RDW 15.4 H (11.0-15.0) % PT (9.9-11.8) Seconds INR (0.93-1.08) APTT (23.7-30.8) Seconds pCO2 (35-45) mm/Hg pO2 (30-55) mm/Hg HCO3 (21-28) mmol/L ABG pH (7.35-7.45) ABG Total CO2 (22-28) mmol.L ABG O2 Saturation (95-98) % ABG O2 Content (15-23) ML/dl ABG Base Excess (-2.0-3.0) mmol/L ABG Hemoglobin (11.7-17.4) g/dL ABG Carboxyhemoglobin (0.5-1.5) % POC ABG HHb (Measured) (0-5) % ABG Methemoglobin (0.0-3.0) % ABG O2 Capacity (16-24) mL/dl VBG pH (7.32-7.43) VBG pCO2 (40-60) VBG HCO3 (21-28) mmol/l VBG Total CO2 (22-28) mmol.L VBG O2 Sat (Calc) (40-65) % VBG Base Excess (0.0-2.0) mmol/L VBG Potassium (3.6-5.2) mmol/L Hgb O2 Saturation (95.0-98.0) % Sodium (132-148) mmol/L Chloride (98-107) mmol/L Glucose (65-105) mg/dl Lactate (0.7-2.1) mmol/L FiO2 % Potassium (3.6-5.0) mmol/L Carbon Dioxide (21-33) mmol/L Anion Gap (10-20) BUN (7-21) mg/dL Creatinine (0.5-1.4) mg/dL Est GFR ( Amer) Est GFR (Non-Af Amer) POC Glucose (mg/dL) (65-110) mg/dL Random Glucose (70-110) mg/dL Calcium (8.4-10.5) mg/dL Phosphorus (2.5-4.5) mg/dL Magnesium (1.7-2.2) mg/dL Total Bilirubin (0.2-1.3) mg/dL AST (14-36) U/L ALT (7-56) U/L Alkaline Phosphatase (38-126) U/L Total Protein (5.8-8.3) g/dL Albumin (3.0-4.8) g/dL Globulin gm/dL Albumin/Globulin Ratio (1.1-1.8) Procalcitonin (0.19-0.49) NG/ML Venous Blood Potassium (3.6-5.2) mmol/L Vancomycin Trough (5.0-10.0) ug/mL Hemochromatos Mutation see note Blood Type Antibody Screen Crossmatch BBK History Checked Laboratory Results - last 24 hr 11/14/16 11/18/16 11/18/16 16:47 03:05 11:34 WBC RBC Hgb Hct MCV MCH MCHC RDW Plt Count MPV Baso % (Auto) Baso # Corrected WBC (Man) Neutrophils % (Manual) Band Neutrophils % Lymphocytes % (Manual) Monocytes % (Manual) Metamyelocytes % Myelocytes % Nucleated RBC % Smudge Cells Platelet Evaluation Polychromasia Hypochromasia Poikilocytosis (manual Anisocytosis (manual) Spherocytes Sickle Cells Tear Drop Cells Ovalocytes Hemoglobinopathy Red Blood Count 2.82 L Hemoglobinopathy Hct 24.6 L Hemoglobinopathy Hgb 8.9 L Hemoglobinopathy MCV 87.3 Hemoglobinopathy MCH 31.5 Hemoglobinopathy RDW 15.4 H PT INR APTT pCO2 pO2 HCO3 ABG pH ABG Total CO2 ABG O2 Saturation ABG O2 Content ABG Base Excess ABG Hemoglobin ABG Carboxyhemoglobin POC ABG HHb (Measured) ABG Methemoglobin ABG O2 Capacity VBG pH VBG pCO2 VBG HCO3 VBG Total CO2 VBG O2 Sat (Calc) VBG Base Excess VBG Potassium Hgb O2 Saturation Sodium Chloride Glucose Lactate FiO2 Potassium Carbon Dioxide Anion Gap BUN Creatinine Est GFR ( Amer) Est GFR (Non-Af Amer) POC Glucose (mg/dL) Random Glucose Calcium Phosphorus Magnesium Total Bilirubin AST ALT Alkaline Phosphatase Total Protein Albumin Globulin Albumin/Globulin Ratio Procalcitonin 3.42 H Venous Blood Potassium Vancomycin Trough Hemochromatos Mutation see note Blood Type Antibody Screen Crossmatch BBK History Checked 11/18/16 11/18/16 11/18/16 16:24 19:35 19:35 WBC 26.2 H* D RBC 2.70 L Hgb 8.5 L Hct 23.0 L MCV 85.2 MCH 31.5 MCHC 37.0 RDW 16.0 H Plt Count 118 L MPV 9.4 Baso % (Auto) 0.6 Baso # 0.16 Corrected WBC (Man) Neutrophils % (Manual) Band Neutrophils % Lymphocytes % (Manual) Monocytes % (Manual) Metamyelocytes % Myelocytes % Nucleated RBC % Smudge Cells Platelet Evaluation Polychromasia Hypochromasia Poikilocytosis (manual Anisocytosis (manual) Spherocytes Sickle Cells Tear Drop Cells Ovalocytes Hemoglobinopathy Red Blood Count Hemoglobinopathy Hct Hemoglobinopathy Hgb Hemoglobinopathy MCV Hemoglobinopathy MCH Hemoglobinopathy RDW PT INR APTT pCO2 pO2 72 H HCO3 ABG pH ABG Total CO2 ABG O2 Saturation ABG O2 Content ABG Base Excess ABG Hemoglobin ABG Carboxyhemoglobin POC ABG HHb (Measured) ABG Methemoglobin ABG O2 Capacity VBG pH 7.39 VBG pCO2 47.0 VBG HCO3 28.5 H VBG Total CO2 29.9 H VBG O2 Sat (Calc) 100.0 H VBG Base Excess 2.8 H VBG Potassium 3.8 Hgb O2 Saturation Sodium 133.0 Chloride 96.0 L Glucose 113 H Lactate 6.0 H* FiO2 21.0 Potassium Carbon Dioxide Anion Gap BUN Creatinine Est GFR ( Amer) Est GFR (Non-Af Amer) POC Glucose (mg/dL) 124 H Random Glucose Calcium Phosphorus Magnesium Total Bilirubin AST ALT Alkaline Phosphatase Total Protein Albumin Globulin Albumin/Globulin Ratio Procalcitonin Venous Blood Potassium 3.8 Vancomycin Trough Hemochromatos Mutation Blood Type Antibody Screen Crossmatch BBK History Checked 11/18/16 11/18/16 11/18/16 19:35 22:15 23:12 WBC RBC Hgb Hct MCV MCH MCHC RDW Plt Count MPV Baso % (Auto) Baso # Corrected WBC (Man) Neutrophils % (Manual) Band Neutrophils % Lymphocytes % (Manual) Monocytes % (Manual) Metamyelocytes % Myelocytes % Nucleated RBC % Smudge Cells Platelet Evaluation Polychromasia Hypochromasia Poikilocytosis (manual Anisocytosis (manual) Spherocytes Sickle Cells Tear Drop Cells Ovalocytes Hemoglobinopathy Red Blood Count Hemoglobinopathy Hct Hemoglobinopathy Hgb Hemoglobinopathy MCV Hemoglobinopathy MCH Hemoglobinopathy RDW PT 22.0 H INR 2.04 H APTT pCO2 37 pO2 260.0 H HCO3 25.1 ABG pH 7.44 ABG Total CO2 26.2 ABG O2 Saturation 101.7 H ABG O2 Content 11.4 L ABG Base Excess 0.9 ABG Hemoglobin 7.8 L ABG Carboxyhemoglobin 2.3 H POC ABG HHb (Measured) -1.6 L ABG Methemoglobin 2.1 ABG O2 Capacity 11.2 L VBG pH VBG pCO2 VBG HCO3 VBG Total CO2 VBG O2 Sat (Calc) VBG Base Excess VBG Potassium Hgb O2 Saturation 97.2 Sodium Chloride Glucose Lactate FiO2 100.0 Potassium Carbon Dioxide Anion Gap BUN Creatinine Est GFR ( Amer) Est GFR (Non-Af Amer) POC Glucose (mg/dL) 100 Random Glucose Calcium Phosphorus Magnesium Total Bilirubin AST ALT Alkaline Phosphatase Total Protein Albumin Globulin Albumin/Globulin Ratio Procalcitonin Venous Blood Potassium Vancomycin Trough Hemochromatos Mutation Blood Type Antibody Screen Crossmatch BBK History Checked 11/19/16 11/19/16 11/19/16 05:56 06:31 06:31 WBC RBC Hgb Hct MCV MCH MCHC RDW Plt Count MPV Baso % (Auto) Baso # Corrected WBC (Man) Neutrophils % (Manual) Band Neutrophils % Lymphocytes % (Manual) Monocytes % (Manual) Metamyelocytes % Myelocytes % Nucleated RBC % Smudge Cells Platelet Evaluation Polychromasia Hypochromasia Poikilocytosis (manual Anisocytosis (manual) Spherocytes Sickle Cells Tear Drop Cells Ovalocytes Hemoglobinopathy Red Blood Count Hemoglobinopathy Hct Hemoglobinopathy Hgb Hemoglobinopathy MCV Hemoglobinopathy MCH Hemoglobinopathy RDW PT 22.1 H INR 2.05 H APTT pCO2 pO2 78 H HCO3 ABG pH ABG Total CO2 ABG O2 Saturation ABG O2 Content ABG Base Excess ABG Hemoglobin ABG Carboxyhemoglobin POC ABG HHb (Measured) ABG Methemoglobin ABG O2 Capacity VBG pH 7.37 VBG pCO2 41.0 VBG HCO3 23.7 VBG Total CO2 25.0 VBG O2 Sat (Calc) 100.3 H VBG Base Excess -1.5 L VBG Potassium 4.0 Hgb O2 Saturation Sodium 132.0 Chloride 97.0 L Glucose 87 Lactate 9.1 H* FiO2 21.0 Potassium Carbon Dioxide Anion Gap BUN Creatinine Est GFR ( Amer) Est GFR (Non-Af Amer) POC Glucose (mg/dL) 81 Random Glucose Calcium Phosphorus Magnesium Total Bilirubin AST ALT Alkaline Phosphatase Total Protein Albumin Globulin Albumin/Globulin Ratio Procalcitonin Venous Blood Potassium 4.0 Vancomycin Trough Hemochromatos Mutation Blood Type Antibody Screen Crossmatch BBK History Checked 11/19/16 11/19/16 11/19/16 06:31 06:31 10:00 WBC 33.2 H* D RBC 2.18 L Hgb 7.2 L Hct 18.9 L* MCV 86.7 MCH 33.0 MCHC 38.1 H RDW 16.4 H Plt Count 90 L MPV 10.2 Baso % (Auto) 0.4 Baso # 0.13 Corrected WBC (Man) 7.0 Neutrophils % (Manual) 60 Band Neutrophils % 5 H Lymphocytes % (Manual) 28 Monocytes % (Manual) 1 Metamyelocytes % 2 Myelocytes % 4 Nucleated RBC % 375 Smudge Cells Present Platelet Evaluation Low Polychromasia 1+ Hypochromasia 2+ Poikilocytosis (manual 1+ Anisocytosis (manual) 2+ Spherocytes Slight Sickle Cells Slight Tear Drop Cells Slight Ovalocytes Slight Hemoglobinopathy Red Blood Count Hemoglobinopathy Hct Hemoglobinopathy Hgb Hemoglobinopathy MCV Hemoglobinopathy MCH Hemoglobinopathy RDW PT INR APTT pCO2 pO2 HCO3 ABG pH ABG Total CO2 ABG O2 Saturation ABG O2 Content ABG Base Excess ABG Hemoglobin ABG Carboxyhemoglobin POC ABG HHb (Measured) ABG Methemoglobin ABG O2 Capacity VBG pH VBG pCO2 VBG HCO3 VBG Total CO2 VBG O2 Sat (Calc) VBG Base Excess VBG Potassium Hgb O2 Saturation Sodium 133 Chloride 93 L Glucose Lactate FiO2 Potassium 4.0 Carbon Dioxide 23 Anion Gap 21 H BUN 33 H Creatinine 1.8 H Est GFR ( Amer) 38 Est GFR (Non-Af Amer) 31 POC Glucose (mg/dL) Random Glucose 81 Calcium 6.7 L* Phosphorus 5.3 H Magnesium 1.8 Total Bilirubin 18.9 H* AST 1970 H ALT 283 H Alkaline Phosphatase 616 H D Total Protein 5.5 L Albumin 2.4 L Globulin 3.2 Albumin/Globulin Ratio 0.8 L Procalcitonin Venous Blood Potassium Vancomycin Trough 16.3 H* Hemochromatos Mutation Blood Type Antibody Screen Crossmatch BBK History Checked 11/19/16 11/19/16 11/19/16 10:00 10:00 10:00 WBC 36.4 H* RBC 2.22 L Hgb 7.3 L Hct 19.4 L* MCV 87.4 MCH 32.9 MCHC 37.6 H RDW 16.5 H Plt Count 93 L MPV 10.4 Baso % (Auto) 0.5 Baso # 0.18 Corrected WBC (Man) 7.1 Neutrophils % (Manual) 72 H Band Neutrophils % 2 Lymphocytes % (Manual) 20 L Monocytes % (Manual) 2 Metamyelocytes % 1 Myelocytes % 3 Nucleated RBC % 410 Smudge Cells Present Platelet Evaluation Low Polychromasia Slight Hypochromasia 2+ Poikilocytosis (manual Anisocytosis (manual) 1+ Spherocytes Sickle Cells Slight Tear Drop Cells Slight Ovalocytes Slight Hemoglobinopathy Red Blood Count Hemoglobinopathy Hct Hemoglobinopathy Hgb Hemoglobinopathy MCV Hemoglobinopathy MCH Hemoglobinopathy RDW PT 21.3 H INR 1.97 H APTT 83.0 H* pCO2 pO2 HCO3 ABG pH ABG Total CO2 ABG O2 Saturation ABG O2 Content ABG Base Excess ABG Hemoglobin ABG Carboxyhemoglobin POC ABG HHb (Measured) ABG Methemoglobin ABG O2 Capacity VBG pH VBG pCO2 VBG HCO3 VBG Total CO2 VBG O2 Sat (Calc) VBG Base Excess VBG Potassium Hgb O2 Saturation Sodium 132 Chloride 92 L Glucose Lactate FiO2 Potassium 4.3 Carbon Dioxide 24 Anion Gap 20 BUN 35 H Creatinine 1.8 H Est GFR ( Amer) 38 Est GFR (Non-Af Amer) 31 POC Glucose (mg/dL) Random Glucose 93 Calcium 7.0 L Phosphorus 5.7 H Magnesium 1.9 Total Bilirubin 19.7 H* AST 2093 H ALT 296 H Alkaline Phosphatase 688 H Total Protein 5.8 Albumin 2.5 L Globulin 3.3 Albumin/Globulin Ratio 0.8 L Procalcitonin Venous Blood Potassium Vancomycin Trough Hemochromatos Mutation Blood Type Antibody Screen Crossmatch BBK History Checked 11/19/16 11/19/16 10:05 11:07 WBC RBC Hgb Hct MCV MCH MCHC RDW Plt Count MPV Baso % (Auto) Baso # Corrected WBC (Man) Neutrophils % (Manual) Band Neutrophils % Lymphocytes % (Manual) Monocytes % (Manual) Metamyelocytes % Myelocytes % Nucleated RBC % Smudge Cells Platelet Evaluation Polychromasia Hypochromasia Poikilocytosis (manual Anisocytosis (manual) Spherocytes Sickle Cells Tear Drop Cells Ovalocytes Hemoglobinopathy Red Blood Count Hemoglobinopathy Hct Hemoglobinopathy Hgb Hemoglobinopathy MCV Hemoglobinopathy MCH Hemoglobinopathy RDW PT INR APTT pCO2 pO2 HCO3 ABG pH ABG Total CO2 ABG O2 Saturation ABG O2 Content ABG Base Excess ABG Hemoglobin ABG Carboxyhemoglobin POC ABG HHb (Measured) ABG Methemoglobin ABG O2 Capacity VBG pH VBG pCO2 VBG HCO3 VBG Total CO2 VBG O2 Sat (Calc) VBG Base Excess VBG Potassium Hgb O2 Saturation Sodium Chloride Glucose Lactate FiO2 Potassium Carbon Dioxide Anion Gap BUN Creatinine Est GFR ( Amer) Est GFR (Non-Af Amer) POC Glucose (mg/dL) 89 Random Glucose Calcium Phosphorus Magnesium Total Bilirubin AST ALT Alkaline Phosphatase Total Protein Albumin Globulin Albumin/Globulin Ratio Procalcitonin Venous Blood Potassium Vancomycin Trough Hemochromatos Mutation Blood Type B POSITIVE Antibody Screen Negative Crossmatch See Detail BBK History Checked Patient has bt EKG/Cardiology Studies: Cardiology / EKG Studies 11/19/16 03:52 EKG [ELECTROCARDIOGRAM] Stat Comment: Reason For Exam: evaluate for arrythmia Fingerstick Blood Sugar Results: 81 Review of Systems - Review of Systems Systems not reviewed;Unavailable: Other (intubated and sedated) Critical Care Progress Note - Nutrition Nutrition: Nutrition Category Date Time Status NPO Diet [DIET] Diets 11/18/16 Dinner Ordered Assessment/Plan - Assessment and Plan (Free Text) Assessment: This is a 36 yo AA F with PMH of Sickle cell disease, Bipolar disorder, cerebral palsy, Asthma, and CHF who initially presented to [facility] [place] [place] with RUQ abd pain , and later developed Sickle cell crisis, Acute Chest Syndrome, GI bleed, and now has MODS including hepatic failure (2/2 hemochromatosis from multiple transfusions vs vaso-occlusive crisis), renal failure, and respiratory failure requiring intubation. Denied for transfer to [facility] and [facility], not a candidate for liver transplant as per [facility]. Prognosis is grim. Plan: Neuro: -Sedated on propofol, goal RASS is +1 -maintain normothermia -Some arousal and spontaneous eye opening with placement of NG tube, otherwise only withdraws from pain Pulm: -Intubated and sedated, on PRVC at 50%/5 Peep/15 RR/400 TV -VBG today reviewed -Maintain SaO2 > 92%, paO2 > 60, titrate vent accordingly -Protective lung ventilation strategies, low tidal volumes, VAP bundle, Aspiration precautions Cardio: -Shock requiring dual vasopressor support, currently on Levophed 15 mcgs/kg/hr and Vasopressin 0.04 -Shock likely hemorrhagic shock (from GI bleed + coagulapathy 2/2 liver failure ) vs distributive due to sepsis, likely multifactorial -Maintain MAP > 65 -Tachycardia 100-115, likely 2/2 levophed, but remains hemodynamically stable, so sign of abnormal rhythm, continue to monitor -s/p multiple transfusions, 1 unit pRBCs and 2 FFP today; total transfusions since admission: 9 pRBC, 7 FFP, 2 Platelets -Vit K given 10mg x1 for INR 2.05 -S/p HD and exchange pheresis on 10/17, no HD today as per Nephro as unable to tolerate any volume loss due to shock state -Dr. Deshpande (Cardio) on board, appreciate all recs GI: -NPO, no feeds due to possible GI bleed -Lactulose MN -Protonix IVP 40mg BID for ppx -Likely GI bleed given continued loss, dark red blood draining from NG tube placed in AM; GI aware, started on Protonix and Octreotide drips, bedside EGD performed, bleed found and injected with Epi/cauterized -As per GI: Octreotide and Protonix drips can be stopped, Protonix BID IVP for ppx, NGT removed for EGD and no further NG tube placements -Diarrhea, but no reported melanotic stools -Coagulpathy 2/2 Acute hepatic failure, INR 2.05, 2.04 yesterday, given Vit K 10mg IVP x1 and 2 units FFP ordered -Acute hepatic failure 2/2 acquired hemochromatosis from repeated transfusions vs acute vaso-occlusive crisis vs shock liver -Dr. Duong (GI) on board, appreciate all recs -Not a candidate for Liver Transplant as per [facility] Renal: -Cr increased from 1.4 to 1.8 today -Acute renal failure, likely 2/2 shock vs vaso-occlusive crisis -S/p HD and exchange pheresis on 10/17, no HD today as per Nephro as unable to tolerate any volume loss due to shock state -Bloody urine output -Monitor I's and O's -Monitor and replete electrolytes as needed -Maintain Euglycemia (BG 140-180) -S/p hemodialysis catheter placement by Surgery on 11/17 -Dr. Perez (Nephro) on board, appreciate all recs Heme: -Coagulopathy 2/2 acute hepatic failure -s/p multiple transfusions, 1 unit pRBCs and 2 FFP today; total transfusions since admission: 9 pRBC, 7 FFP, 2 Platelets -S/p Vit K 10mg IVP x1 -No AC given acute GI bleeding, s/p epi-injection and cauterization of GI bleed today -Dr. Palacios (Heme-onc) on board, appreciate all recs ID: -WBC elevated at 33.2, afebrile -Dr. Batres (ID) following, continue Cefepime and Vanco (renally dosed), considering Merrem -1x blood culture on admission (+) for Coag negative Staph on 11/13, all remaining cultures negative -Lactate progressively worsening, 12.1 at last draw, more likely s/s MODS than infectious etiology Dispo: ICU, receiving pressor support, intubated and ventilated, s/p bedside EGD , acute liver failure maximally managed medically, not a candidate for transplant; pending Palliative discussion with family FEN: NPO, no feeds due to GI bleed, D10W 20cc/hr Access: Peripheral IVs, ETT, R-chest port Consults: ID, Nephro, Heme-onc, GI, Cardio, Psych, Surgery Code Status: Full code, pending Palliative discussion with family Patient seen, reviewed, and discussed with attending, Dr. Grover. <Satish Grover - Last Filed: 11/19/16 18:43> CCU Objective - Vital Signs / Intake & Output Vital Signs (Last 4 hours): Vital Signs Temp Pulse Resp BP 11/19/16 17:24 98.5 F 118 H 20 100/0 L Intake and Output (Last 8hrs): Intake & Output 11/19/16 11/19/16 11/19/16 06:59 14:59 22:59 Intake Total 1290 0 Output Total 150 Balance 1140 0 Intake: IV 1290 Left Femoral 970 Oral 0 Blood Product 0 Red Blood Cells Cpd As1 0 Lr Unit [id number] Output: Urine 150 2-way Urethral 150 Other: # Bowel Movements 3 - Medications Active Medications: Active Medications Generic Name Dose Route Start Last Admin Trade Name Freq PRN Reason Stop Dose Admin Albuterol/Ipratropium 3 ml 11/16/16 14:00 11/19/16 13:42 Duoneb 3 Mg/0.5 Mg (3 Ml) Ud IH 3 ml [id number] ARLETTE Administration Budesonide 0.5 mg 11/16/16 20:00 11/19/16 07:34 Pulmicort Respules IH 0.5 mg [id number] ARLETTE Administration Ergocalciferol 1 cap 11/12/16 10:00 11/19/16 14:47 Drisdol 50,000 Intl Units Cap PO Not Given QWK ARLETTE Folic Acid 1 mg 11/12/16 10:00 11/19/16 14:47 Folic Acid PO Not Given DAILY ARLETTE Furosemide 40 mg 11/16/16 10:00 11/17/16 09:00 Lasix IVP 40 mg DAILY ARLETTE Administration Heparin Sodium (Porcine) 5,000 units 11/13/16 01:15 11/16/16 21:44 Heparin SC Not Given Q12 ARLETTE Protocol Hydrocortisone Sodium Succinate 50 mg 11/19/16 07:15 11/19/16 14:57 Solu-Cortef IVP 50 mg Q8 ARLETTE Administration Hydromorphone HCl 1 mg 11/15/16 11:24 11/18/16 13:12 Dilaudid IVP 1 mg Q3H PRN Administration Pain, severe (8-10) Hydroxyurea 500 mg 11/12/16 10:00 11/19/16 14:48 Hydrea PO Not Given DAILY ARLETTE Vancomycin HCl 1 gm in 250 mls @ 167 mls/hr 11/15/16 11:30 11/19/16 14:54 Vancomycin 1gm IVPB 167 mls/hr DAILY ARLETTE Administration Protocol Cefepime HCl 1 gm in 100 mls @ 100 mls/hr 11/15/16 13:15 11/19/16 14:49 Maxipime 1gm IVPB 100 mls/hr Q24H ARLETTE Administration Protocol Dextrose 500 mls @ 20 mls/hr 11/16/16 18:45 11/18/16 19:44 Dextrose 10% In Water IV 20 mls/hr .Q24H ARLETTE Administration Sodium Bicarbonate 150 meq/ 1,150 mls @ 125 mls/hr 11/16/16 23:15 11/17/16 18 :00 Dextrose IV 125 mls/hr .[id number] ARLETTE Administration Propofol 1,000 mg in 100 mls @ 2.259 mls/hr 11/17/16 20:53 11/19/16 02:31 Diprivan IV 30 mcg/kg/min .Q24H PRN 13.553 mls/hr TITRATE PER MD ORDER Titration Protocol 5 MCG/KG/MIN NOREPINEPHRINE BIT/0.9 % NACL 4 mg in 250 mls @ 15 mls/hr 11/18/16 06:33 07:26 Levophed 4 Mg/ 250 Ml Ns Premixed IV 15 mcg/min .[id number] PRN 56.25 mls/hr TITRATE PER MD ORDER Administration Protocol 4 MCG/MIN Vasopressin 20 units/ Dextrose 101 mls @ 12.12 mls/hr 11/19/16 07:15 08:00 IV 12.12 mls/hr .Q8H20M ARLETTE Administration Protocol 0.04 U/MIN Lactic Acid 0 ea 11/13/16 09:22 Lac-Hydrin 12% Cream (140 G) TOP DAILY PRN Wound Lactulose 200 gm 11/19/16 12:00 11/19/16 12:30 Generlac MN 11/24/16 12:01 200 gm Q6 ARLETTE Administration Midazolam HCl 1 mg 11/17/16 17:29 Versed Inj IVP Q3H PRN sedation Multivitamins/Minerals 1 tab 11/12/16 11:30 11/19/16 14:53 Therapeutic-M Tab PO Not Given DAILY [facility] Non-Formulary Medication 100 mcg 11/13/16 10:00 11/15/16 21:20 Mometasone [Asmanex Twisthaler 110 Mcg] IH Not Given BID [facility] Pantoprazole Sodium 40 mg 11/19/16 22:00 Protonix Inj IVP Q12 ARLETTE Rifaximin 550 mg 11/18/16 10:15 11/19/16 14:57 Xifaxan PO Not Given BID [facility] Protocol - Patient Studies Lab Studies: Microbiology Studies 11/14/16 18:06 Blood Culture - Final Blood-Venous NO GROWTH AFTER 5 DAYS Gram Stain - Final TEST NOT PERFORMED 11/14/16 16:47 Blood Culture - Final Blood-Venous NO GROWTH AFTER 5 DAYS Gram Stain - Final TEST NOT PERFORMED Lab Studies 11/19/16 11/19/16 11/19/16 Range/Units 15:44 13:43 11:07 WBC (4.5-11.0) 10^3/ul RBC (3.5-6.1) 10^6/uL Hgb (12.0-16.0) g/dL Hct (36.0-48.0) % MCV (80.0-105.0) fl MCH (25.0-35.0) pg MCHC (31.0-37.0) g/dl RDW (11.5-14.5) % Plt Count (120.0-450.0) 10^3/uL MPV (7.0-11.0) fl Baso % (Auto) (0.0-3.0) % Baso # (0.0-2.0) K/mm3 Corrected WBC (Man) (4.5-11.0) K/mm3 Neutrophils % (Manual) (50.0-70.0) % Band Neutrophils % (0-2) % Lymphocytes % (Manual) (22.0-35.0) % Monocytes % (Manual) (1.0-6.0) % Metamyelocytes % % Myelocytes % % Nucleated RBC % % Smudge Cells Platelet Evaluation (NORMAL) Polychromasia Hypochromasia Poikilocytosis (manual Anisocytosis (manual) Spherocytes Sickle Cells Tear Drop Cells Ovalocytes Hemoglobinopathy Red Blood Count (3.80-5.10) Mill/mcL Hemoglobinopathy Hct (35.0-45.0) % Hemoglobinopathy Hgb (11.7-15.5) g/dL Hemoglobinopathy MCV (80.0-100.0) fL Hemoglobinopathy MCH (27.0-33.0) pg Hemoglobinopathy RDW (11.0-15.0) % PT (9.9-11.8) Seconds INR (0.93-1.08) APTT (23.7-30.8) Seconds pCO2 (35-45) mm/Hg pO2 41 (30-55) mm/Hg HCO3 (21-28) mmol/L ABG pH (7.35-7.45) ABG Total CO2 (22-28) mmol.L ABG O2 Saturation (95-98) % ABG O2 Content (15-23) ML/dl ABG Base Excess (-2.0-3.0) mmol/L ABG Hemoglobin (11.7-17.4) g/dL ABG Carboxyhemoglobin (0.5-1.5) % POC ABG HHb (Measured) (0-5) % ABG Methemoglobin (0.0-3.0) % ABG O2 Capacity (16-24) mL/dl VBG pH 7.19 L* (7.32-7.43) VBG pCO2 49.0 (40-60) VBG HCO3 18.7 L (21-28) mmol/l VBG Total CO2 20.2 L (22-28) mmol.L VBG O2 Sat (Calc) 75.1 H (40-65) % VBG Base Excess -9.6 L (0.0-2.0) mmol/L VBG Potassium 4.6 (3.6-5.2) mmol/L Hgb O2 Saturation (95.0-98.0) % Sodium 131.0 L (132-148) mmol/L Chloride 96.0 L (98-107) mmol/L Glucose 83 (65-105) mg/dl Lactate 12.1 H* (0.7-2.1) mmol/L FiO2 21.0 % Potassium (3.6-5.0) mmol/L Carbon Dioxide (21-33) mmol/L Anion Gap (10-20) BUN (7-21) mg/dL Creatinine (0.5-1.4) mg/dL Est GFR ( Amer) Est GFR (Non-Af Amer) POC Glucose (mg/dL) 89 (65-110) mg/dL Random Glucose (70-110) mg/dL Calcium (8.4-10.5) mg/dL Phosphorus (2.5-4.5) mg/dL Magnesium (1.7-2.2) mg/dL Total Bilirubin (0.2-1.3) mg/dL AST (14-36) U/L ALT (7-56) U/L Alkaline Phosphatase (38-126) U/L Total Protein (5.8-8.3) g/dL Albumin (3.0-4.8) g/dL Globulin gm/dL Albumin/Globulin Ratio (1.1-1.8) Venous Blood Potassium 4.6 (3.6-5.2) mmol/L Stool Occult Blood Positive H (NEGATIVE) Vancomycin Trough (5.0-10.0) ug/mL Blood Type Antibody Screen Crossmatch BBK History Checked 11/19/16 11/19/16 11/19/16 Range/Units 10:05 10:00 10:00 WBC (4.5-11.0) 10^3/ul RBC (3.5-6.1) 10^6/uL Hgb (12.0-16.0) g/dL Hct (36.0-48.0) % MCV (80.0-105.0) fl MCH (25.0-35.0) pg MCHC (31.0-37.0) g/dl RDW (11.5-14.5) % Plt Count (120.0-450.0) 10^3/uL MPV (7.0-11.0) fl Baso % (Auto) (0.0-3.0) % Baso # (0.0-2.0) K/mm3 Corrected WBC (Man) (4.5-11.0) K/mm3 Neutrophils % (Manual) (50.0-70.0) % Band Neutrophils % (0-2) % Lymphocytes % (Manual) (22.0-35.0) % Monocytes % (Manual) (1.0-6.0) % Metamyelocytes % % Myelocytes % % Nucleated RBC % % Smudge Cells Platelet Evaluation (NORMAL) Polychromasia Hypochromasia Poikilocytosis (manual Anisocytosis (manual) Spherocytes Sickle Cells Tear Drop Cells Ovalocytes Hemoglobinopathy Red Blood Count (3.80-5.10) Mill/mcL Hemoglobinopathy Hct (35.0-45.0) % Hemoglobinopathy Hgb (11.7-15.5) g/dL Hemoglobinopathy MCV (80.0-100.0) fL Hemoglobinopathy MCH (27.0-33.0) pg Hemoglobinopathy RDW (11.0-15.0) % PT 21.3 H (9.9-11.8) Seconds INR 1.97 H (0.93-1.08) APTT 83.0 H* (23.7-30.8) Seconds pCO2 (35-45) mm/Hg pO2 (30-55) mm/Hg HCO3 (21-28) mmol/L ABG pH (7.35-7.45) ABG Total CO2 (22-28) mmol.L ABG O2 Saturation (95-98) % ABG O2 Content (15-23) ML/dl ABG Base Excess (-2.0-3.0) mmol/L ABG Hemoglobin (11.7-17.4) g/dL ABG Carboxyhemoglobin (0.5-1.5) % POC ABG HHb (Measured) (0-5) % ABG Methemoglobin (0.0-3.0) % ABG O2 Capacity (16-24) mL/dl VBG pH (7.32-7.43) VBG pCO2 (40-60) VBG HCO3 (21-28) mmol/l VBG Total CO2 (22-28) mmol.L VBG O2 Sat (Calc) (40-65) % VBG Base Excess (0.0-2.0) mmol/L VBG Potassium (3.6-5.2) mmol/L Hgb O2 Saturation (95.0-98.0) % Sodium 132 (132-148) mmol/L Chloride 92 L (98-107) mmol/L Glucose (65-105) mg/dl Lactate (0.7-2.1) mmol/L FiO2 % Potassium 4.3 (3.6-5.0) mmol/L Carbon Dioxide 24 (21-33) mmol/L Anion Gap 20 (10-20) BUN 35 H (7-21) mg/dL Creatinine 1.8 H (0.5-1.4) mg/dL Est GFR ( Amer) 38 Est GFR (Non-Af Amer) 31 POC Glucose (mg/dL) (65-110) mg/dL Random Glucose 93 (70-110) mg/dL Calcium 7.0 L (8.4-10.5) mg/dL Phosphorus 5.7 H (2.5-4.5) mg/dL Magnesium 1.9 (1.7-2.2) mg/dL Total Bilirubin 19.7 H* (0.2-1.3) mg/dL AST 2093 H (14-36) U/L ALT 296 H (7-56) U/L Alkaline Phosphatase 688 H (38-126) U/L Total Protein 5.8 (5.8-8.3) g/dL Albumin 2.5 L (3.0-4.8) g/dL Globulin 3.3 gm/dL Albumin/Globulin Ratio 0.8 L (1.1-1.8) Venous Blood Potassium (3.6-5.2) mmol/L Stool Occult Blood (NEGATIVE) Vancomycin Trough (5.0-10.0) ug/mL Blood Type B POSITIVE Antibody Screen Negative Crossmatch See Detail BBK History Checked Patient has bt 11/19/16 11/19/16 11/19/16 Range/Units 10:00 10:00 06:31 WBC 36.4 H* (4.5-11.0) 10^3/ul RBC 2.22 L (3.5-6.1) 10^6/uL Hgb 7.3 L (12.0-16.0) g/dL Hct 19.4 L* (36.0-48.0) % MCV 87.4 (80.0-105.0) fl MCH 32.9 (25.0-35.0) pg MCHC 37.6 H (31.0-37.0) g/dl RDW 16.5 H (11.5-14.5) % Plt Count 93 L (120.0-450.0) 10^3/uL MPV 10.4 (7.0-11.0) fl Baso % (Auto) 0.5 (0.0-3.0) % Baso # 0.18 (0.0-2.0) K/mm3 Corrected WBC (Man) 7.1 (4.5-11.0) K/mm3 Neutrophils % (Manual) 72 H (50.0-70.0) % Band Neutrophils % 2 (0-2) % Lymphocytes % (Manual) 20 L (22.0-35.0) % Monocytes % (Manual) 2 (1.0-6.0) % Metamyelocytes % 1 % Myelocytes % 3 % Nucleated RBC % 410 % Smudge Cells Present Platelet Evaluation Low (NORMAL) Polychromasia Slight Hypochromasia 2+ Poikilocytosis (manual Anisocytosis (manual) 1+ Spherocytes Sickle Cells Slight Tear Drop Cells Slight Ovalocytes Slight Hemoglobinopathy Red Blood Count (3.80-5.10) Mill/mcL Hemoglobinopathy Hct (35.0-45.0) % Hemoglobinopathy Hgb (11.7-15.5) g/dL Hemoglobinopathy MCV (80.0-100.0) fL Hemoglobinopathy MCH (27.0-33.0) pg Hemoglobinopathy RDW (11.0-15.0) % PT (9.9-11.8) Seconds INR (0.93-1.08) APTT (23.7-30.8) Seconds pCO2 (35-45) mm/Hg pO2 (30-55) mm/Hg HCO3 (21-28) mmol/L ABG pH (7.35-7.45) ABG Total CO2 (22-28) mmol.L ABG O2 Saturation (95-98) % ABG O2 Content (15-23) ML/dl ABG Base Excess (-2.0-3.0) mmol/L ABG Hemoglobin (11.7-17.4) g/dL ABG Carboxyhemoglobin (0.5-1.5) % POC ABG HHb (Measured) (0-5) % ABG Methemoglobin (0.0-3.0) % ABG O2 Capacity (16-24) mL/dl VBG pH (7.32-7.43) VBG pCO2 (40-60) VBG HCO3 (21-28) mmol/l VBG Total CO2 (22-28) mmol.L VBG O2 Sat (Calc) (40-65) % VBG Base Excess (0.0-2.0) mmol/L VBG Potassium (3.6-5.2) mmol/L Hgb O2 Saturation (95.0-98.0) % Sodium 133 (132-148) mmol/L Chloride 93 L (98-107) mmol/L Glucose (65-105) mg/dl Lactate (0.7-2.1) mmol/L FiO2 % Potassium 4.0 (3.6-5.0) mmol/L Carbon Dioxide 23 (21-33) mmol/L Anion Gap 21 H (10-20) BUN 33 H (7-21) mg/dL Creatinine 1.8 H (0.5-1.4) mg/dL Est GFR ( Amer) 38 Est GFR (Non-Af Amer) 31 POC Glucose (mg/dL) (65-110) mg/dL Random Glucose 81 (70-110) mg/dL Calcium 6.7 L* (8.4-10.5) mg/dL Phosphorus 5.3 H (2.5-4.5) mg/dL Magnesium 1.8 (1.7-2.2) mg/dL Total Bilirubin 18.9 H* (0.2-1.3) mg/dL AST 1970 H (14-36) U/L ALT 283 H (7-56) U/L Alkaline Phosphatase 616 H D (38-126) U/L Total Protein 5.5 L (5.8-8.3) g/dL Albumin 2.4 L (3.0-4.8) g/dL Globulin 3.2 gm/dL Albumin/Globulin Ratio 0.8 L (1.1-1.8) Venous Blood Potassium (3.6-5.2) mmol/L Stool Occult Blood (NEGATIVE) Vancomycin Trough 16.3 H* (5.0-10.0) ug/mL Blood Type Antibody Screen Crossmatch BBK History Checked 11/19/16 11/19/16 11/19/16 Range/Units 06:31 06:31 06:31 WBC 33.2 H* D (4.5-11.0) 10^3/ul RBC 2.18 L (3.5-6.1) 10^6/uL Hgb 7.2 L (12.0-16.0) g/dL Hct 18.9 L* (36.0-48.0) % MCV 86.7 (80.0-105.0) fl MCH 33.0 (25.0-35.0) pg MCHC 38.1 H (31.0-37.0) g/dl RDW 16.4 H (11.5-14.5) % Plt Count 90 L (120.0-450.0) 10^3/uL MPV 10.2 (7.0-11.0) fl Baso % (Auto) 0.4 (0.0-3.0) % Baso # 0.13 (0.0-2.0) K/mm3 Corrected WBC (Man) 7.0 (4.5-11.0) K/mm3 Neutrophils % (Manual) 60 (50.0-70.0) % Band Neutrophils % 5 H (0-2) % Lymphocytes % (Manual) 28 (22.0-35.0) % Monocytes % (Manual) 1 (1.0-6.0) % Metamyelocytes % 2 % Myelocytes % 4 % Nucleated RBC % 375 % Smudge Cells Present Platelet Evaluation Low (NORMAL) Polychromasia 1+ Hypochromasia 2+ Poikilocytosis (manual 1+ Anisocytosis (manual) 2+ Spherocytes Slight Sickle Cells Slight Tear Drop Cells Slight Ovalocytes Slight Hemoglobinopathy Red Blood Count (3.80-5.10) Mill/mcL Hemoglobinopathy Hct (35.0-45.0) % Hemoglobinopathy Hgb (11.7-15.5) g/dL Hemoglobinopathy MCV (80.0-100.0) fL Hemoglobinopathy MCH (27.0-33.0) pg Hemoglobinopathy RDW (11.0-15.0) % PT 22.1 H (9.9-11.8) Seconds INR 2.05 H (0.93-1.08) APTT (23.7-30.8) Seconds pCO2 (35-45) mm/Hg pO2 78 H (30-55) mm/Hg HCO3 (21-28) mmol/L ABG pH (7.35-7.45) ABG Total CO2 (22-28) mmol.L ABG O2 Saturation (95-98) % ABG O2 Content (15-23) ML/dl ABG Base Excess (-2.0-3.0) mmol/L ABG Hemoglobin (11.7-17.4) g/dL ABG Carboxyhemoglobin (0.5-1.5) % POC ABG HHb (Measured) (0-5) % ABG Methemoglobin (0.0-3.0) % ABG O2 Capacity (16-24) mL/dl VBG pH 7.37 (7.32-7.43) VBG pCO2 41.0 (40-60) VBG HCO3 23.7 (21-28) mmol/l VBG Total CO2 25.0 (22-28) mmol.L VBG O2 Sat (Calc) 100.3 H (40-65) % VBG Base Excess -1.5 L (0.0-2.0) mmol/L VBG Potassium 4.0 (3.6-5.2) mmol/L Hgb O2 Saturation (95.0-98.0) % Sodium 132.0 (132-148) mmol/L Chloride 97.0 L (98-107) mmol/L Glucose 87 (65-105) mg/dl Lactate 9.1 H* (0.7-2.1) mmol/L FiO2 21.0 % Potassium (3.6-5.0) mmol/L Carbon Dioxide (21-33) mmol/L Anion Gap (10-20) BUN (7-21) mg/dL Creatinine (0.5-1.4) mg/dL Est GFR ( Amer) Est GFR (Non-Af Amer) POC Glucose (mg/dL) (65-110) mg/dL Random Glucose (70-110) mg/dL Calcium (8.4-10.5) mg/dL Phosphorus (2.5-4.5) mg/dL Magnesium (1.7-2.2) mg/dL Total Bilirubin (0.2-1.3) mg/dL AST (14-36) U/L ALT (7-56) U/L Alkaline Phosphatase (38-126) U/L Total Protein (5.8-8.3) g/dL Albumin (3.0-4.8) g/dL Globulin gm/dL Albumin/Globulin Ratio (1.1-1.8) Venous Blood Potassium 4.0 (3.6-5.2) mmol/L Stool Occult Blood (NEGATIVE) Vancomycin Trough (5.0-10.0) ug/mL Blood Type Antibody Screen Crossmatch BBK History Checked 11/19/16 11/18/16 11/18/16 Range/Units 05:56 23:12 22:15 WBC (4.5-11.0) 10^3/ul RBC (3.5-6.1) 10^6/uL Hgb (12.0-16.0) g/dL Hct (36.0-48.0) % MCV (80.0-105.0) fl MCH (25.0-35.0) pg MCHC (31.0-37.0) g/dl RDW (11.5-14.5) % Plt Count (120.0-450.0) 10^3/uL MPV (7.0-11.0) fl Baso % (Auto) (0.0-3.0) % Baso # (0.0-2.0) K/mm3 Corrected WBC (Man) (4.5-11.0) K/mm3 Neutrophils % (Manual) (50.0-70.0) % Band Neutrophils % (0-2) % Lymphocytes % (Manual) (22.0-35.0) % Monocytes % (Manual) (1.0-6.0) % Metamyelocytes % % Myelocytes % % Nucleated RBC % % Smudge Cells Platelet Evaluation (NORMAL) Polychromasia Hypochromasia Poikilocytosis (manual Anisocytosis (manual) Spherocytes Sickle Cells Tear Drop Cells Ovalocytes Hemoglobinopathy Red Blood Count (3.80-5.10) Mill/mcL Hemoglobinopathy Hct (35.0-45.0) % Hemoglobinopathy Hgb (11.7-15.5) g/dL Hemoglobinopathy MCV (80.0-100.0) fL Hemoglobinopathy MCH (27.0-33.0) pg Hemoglobinopathy RDW (11.0-15.0) % PT (9.9-11.8) Seconds INR (0.93-1.08) APTT (23.7-30.8) Seconds pCO2 37 (35-45) mm/Hg pO2 260.0 H (30-55) mm/Hg HCO3 25.1 (21-28) mmol/L ABG pH 7.44 (7.35-7.45) ABG Total CO2 26.2 (22-28) mmol.L ABG O2 Saturation 101.7 H (95-98) % ABG O2 Content 11.4 L (15-23) ML/dl ABG Base Excess 0.9 (-2.0-3.0) mmol/L ABG Hemoglobin 7.8 L (11.7-17.4) g/dL ABG Carboxyhemoglobin 2.3 H (0.5-1.5) % POC ABG HHb (Measured) -1.6 L (0-5) % ABG Methemoglobin 2.1 (0.0-3.0) % ABG O2 Capacity 11.2 L (16-24) mL/dl VBG pH (7.32-7.43) VBG pCO2 (40-60) VBG HCO3 (21-28) mmol/l VBG Total CO2 (22-28) mmol.L VBG O2 Sat (Calc) (40-65) % VBG Base Excess (0.0-2.0) mmol/L VBG Potassium (3.6-5.2) mmol/L Hgb O2 Saturation 97.2 (95.0-98.0) % Sodium (132-148) mmol/L Chloride (98-107) mmol/L Glucose (65-105) mg/dl Lactate (0.7-2.1) mmol/L FiO2 100.0 % Potassium (3.6-5.0) mmol/L Carbon Dioxide (21-33) mmol/L Anion Gap (10-20) BUN (7-21) mg/dL Creatinine (0.5-1.4) mg/dL Est GFR ( Amer) Est GFR (Non-Af Amer) POC Glucose (mg/dL) 81 100 (65-110) mg/dL Random Glucose (70-110) mg/dL Calcium (8.4-10.5) mg/dL Phosphorus (2.5-4.5) mg/dL Magnesium (1.7-2.2) mg/dL Total Bilirubin (0.2-1.3) mg/dL AST (14-36) U/L ALT (7-56) U/L Alkaline Phosphatase (38-126) U/L Total Protein (5.8-8.3) g/dL Albumin (3.0-4.8) g/dL Globulin gm/dL Albumin/Globulin Ratio (1.1-1.8) Venous Blood Potassium (3.6-5.2) mmol/L Stool Occult Blood (NEGATIVE) Vancomycin Trough (5.0-10.0) ug/mL Blood Type Antibody Screen Crossmatch BBK History Checked 11/18/16 11/18/16 11/18/16 Range/Units 19:35 19:35 19:35 WBC 26.2 H* D (4.5-11.0) 10^3/ul RBC 2.70 L (3.5-6.1) 10^6/uL Hgb 8.5 L (12.0-16.0) g/dL Hct 23.0 L (36.0-48.0) % MCV 85.2 (80.0-105.0) fl MCH 31.5 (25.0-35.0) pg MCHC 37.0 (31.0-37.0) g/dl RDW 16.0 H (11.5-14.5) % Plt Count 118 L (120.0-450.0) 10^3/uL MPV 9.4 (7.0-11.0) fl Baso % (Auto) 0.6 (0.0-3.0) % Baso # 0.16 (0.0-2.0) K/mm3 Corrected WBC (Man) (4.5-11.0) K/mm3 Neutrophils % (Manual) (50.0-70.0) % Band Neutrophils % (0-2) % Lymphocytes % (Manual) (22.0-35.0) % Monocytes % (Manual) (1.0-6.0) % Metamyelocytes % % Myelocytes % % Nucleated RBC % % Smudge Cells Platelet Evaluation (NORMAL) Polychromasia Hypochromasia Poikilocytosis (manual Anisocytosis (manual) Spherocytes Sickle Cells Tear Drop Cells Ovalocytes Hemoglobinopathy Red Blood Count (3.80-5.10) Mill/mcL Hemoglobinopathy Hct (35.0-45.0) % Hemoglobinopathy Hgb (11.7-15.5) g/dL Hemoglobinopathy MCV (80.0-100.0) fL Hemoglobinopathy MCH (27.0-33.0) pg Hemoglobinopathy RDW (11.0-15.0) % PT 22.0 H (9.9-11.8) Seconds INR 2.04 H (0.93-1.08) APTT (23.7-30.8) Seconds pCO2 (35-45) mm/Hg pO2 72 H (30-55) mm/Hg HCO3 (21-28) mmol/L ABG pH (7.35-7.45) ABG Total CO2 (22-28) mmol.L ABG O2 Saturation (95-98) % ABG O2 Content (15-23) ML/dl ABG Base Excess (-2.0-3.0) mmol/L ABG Hemoglobin (11.7-17.4) g/dL ABG Carboxyhemoglobin (0.5-1.5) % POC ABG HHb (Measured) (0-5) % ABG Methemoglobin (0.0-3.0) % ABG O2 Capacity (16-24) mL/dl VBG pH 7.39 (7.32-7.43) VBG pCO2 47.0 (40-60) VBG HCO3 28.5 H (21-28) mmol/l VBG Total CO2 29.9 H (22-28) mmol.L VBG O2 Sat (Calc) 100.0 H (40-65) % VBG Base Excess 2.8 H (0.0-2.0) mmol/L VBG Potassium 3.8 (3.6-5.2) mmol/L Hgb O2 Saturation (95.0-98.0) % Sodium 133.0 (132-148) mmol/L Chloride 96.0 L (98-107) mmol/L Glucose 113 H (65-105) mg/dl Lactate 6.0 H* (0.7-2.1) mmol/L FiO2 21.0 % Potassium (3.6-5.0) mmol/L Carbon Dioxide (21-33) mmol/L Anion Gap (10-20) BUN (7-21) mg/dL Creatinine (0.5-1.4) mg/dL Est GFR ( Amer) Est GFR (Non-Af Amer) POC Glucose (mg/dL) (65-110) mg/dL Random Glucose (70-110) mg/dL Calcium (8.4-10.5) mg/dL Phosphorus (2.5-4.5) mg/dL Magnesium (1.7-2.2) mg/dL Total Bilirubin (0.2-1.3) mg/dL AST (14-36) U/L ALT (7-56) U/L Alkaline Phosphatase (38-126) U/L Total Protein (5.8-8.3) g/dL Albumin (3.0-4.8) g/dL Globulin gm/dL Albumin/Globulin Ratio (1.1-1.8) Venous Blood Potassium 3.8 (3.6-5.2) mmol/L Stool Occult Blood (NEGATIVE) Vancomycin Trough (5.0-10.0) ug/mL Blood Type Antibody Screen Crossmatch BBK History Checked 11/18/16 11/16/16 Range/Units 03:05 20:00 WBC (4.5-11.0) 10^3/ul RBC (3.5-6.1) 10^6/uL Hgb (12.0-16.0) g/dL Hct (36.0-48.0) % MCV (80.0-105.0) fl MCH (25.0-35.0) pg MCHC (31.0-37.0) g/dl RDW (11.5-14.5) % Plt Count (120.0-450.0) 10^3/uL MPV (7.0-11.0) fl Baso % (Auto) (0.0-3.0) % Baso # (0.0-2.0) K/mm3 Corrected WBC (Man) (4.5-11.0) K/mm3 Neutrophils % (Manual) (50.0-70.0) % Band Neutrophils % (0-2) % Lymphocytes % (Manual) (22.0-35.0) % Monocytes % (Manual) (1.0-6.0) % Metamyelocytes % % Myelocytes % % Nucleated RBC % % Smudge Cells Platelet Evaluation (NORMAL) Polychromasia Hypochromasia Poikilocytosis (manual Anisocytosis (manual) Spherocytes Sickle Cells Tear Drop Cells Ovalocytes Hemoglobinopathy Red Blood Count 2.82 L (3.80-5.10) Mill/mcL Hemoglobinopathy Hct 24.6 L (35.0-45.0) % Hemoglobinopathy Hgb 8.9 L (11.7-15.5) g/dL Hemoglobinopathy MCV 87.3 (80.0-100.0) fL Hemoglobinopathy MCH 31.5 (27.0-33.0) pg Hemoglobinopathy RDW 15.4 H (11.0-15.0) % PT (9.9-11.8) Seconds INR (0.93-1.08) APTT (23.7-30.8) Seconds pCO2 (35-45) mm/Hg pO2 (30-55) mm/Hg HCO3 (21-28) mmol/L ABG pH (7.35-7.45) ABG Total CO2 (22-28) mmol.L ABG O2 Saturation (95-98) % ABG O2 Content (15-23) ML/dl ABG Base Excess (-2.0-3.0) mmol/L ABG Hemoglobin (11.7-17.4) g/dL ABG Carboxyhemoglobin (0.5-1.5) % POC ABG HHb (Measured) (0-5) % ABG Methemoglobin (0.0-3.0) % ABG O2 Capacity (16-24) mL/dl VBG pH (7.32-7.43) VBG pCO2 (40-60) VBG HCO3 (21-28) mmol/l VBG Total CO2 (22-28) mmol.L VBG O2 Sat (Calc) (40-65) % VBG Base Excess (0.0-2.0) mmol/L VBG Potassium (3.6-5.2) mmol/L Hgb O2 Saturation (95.0-98.0) % Sodium (132-148) mmol/L Chloride (98-107) mmol/L Glucose (65-105) mg/dl Lactate (0.7-2.1) mmol/L FiO2 % Potassium (3.6-5.0) mmol/L Carbon Dioxide (21-33) mmol/L Anion Gap (10-20) BUN (7-21) mg/dL Creatinine (0.5-1.4) mg/dL Est GFR ( Amer) Est GFR (Non-Af Amer) POC Glucose (mg/dL) (65-110) mg/dL Random Glucose (70-110) mg/dL Calcium (8.4-10.5) mg/dL Phosphorus (2.5-4.5) mg/dL Magnesium (1.7-2.2) mg/dL Total Bilirubin (0.2-1.3) mg/dL AST (14-36) U/L ALT (7-56) U/L Alkaline Phosphatase (38-126) U/L Total Protein (5.8-8.3) g/dL Albumin (3.0-4.8) g/dL Globulin gm/dL Albumin/Globulin Ratio (1.1-1.8) Venous Blood Potassium (3.6-5.2) mmol/L Stool Occult Blood (NEGATIVE) Vancomycin Trough (5.0-10.0) ug/mL Blood Type B POSITIVE Antibody Screen Negative Crossmatch See Detail BBK History Checked Patient has bt Laboratory Results - last 24 hr 11/16/16 11/18/16 11/18/16 20:00 03:05 19:35 WBC RBC Hgb Hct MCV MCH MCHC RDW Plt Count MPV Baso % (Auto) Baso # Corrected WBC (Man) Neutrophils % (Manual) Band Neutrophils % Lymphocytes % (Manual) Monocytes % (Manual) Metamyelocytes % Myelocytes % Nucleated RBC % Smudge Cells Platelet Evaluation Polychromasia Hypochromasia Poikilocytosis (manual Anisocytosis (manual) Spherocytes Sickle Cells Tear Drop Cells Ovalocytes Hemoglobinopathy Red Blood Count 2.82 L Hemoglobinopathy Hct 24.6 L Hemoglobinopathy Hgb 8.9 L Hemoglobinopathy MCV 87.3 Hemoglobinopathy MCH 31.5 Hemoglobinopathy RDW 15.4 H PT INR APTT pCO2 pO2 72 H HCO3 ABG pH ABG Total CO2 ABG O2 Saturation ABG O2 Content ABG Base Excess ABG Hemoglobin ABG Carboxyhemoglobin POC ABG HHb (Measured) ABG Methemoglobin ABG O2 Capacity VBG pH 7.39 VBG pCO2 47.0 VBG HCO3 28.5 H VBG Total CO2 29.9 H VBG O2 Sat (Calc) 100.0 H VBG Base Excess 2.8 H VBG Potassium 3.8 Hgb O2 Saturation Sodium 133.0 Chloride 96.0 L Glucose 113 H Lactate 6.0 H* FiO2 21.0 Potassium Carbon Dioxide Anion Gap BUN Creatinine Est GFR ( Amer) Est GFR (Non-Af Amer) POC Glucose (mg/dL) Random Glucose Calcium Phosphorus Magnesium Total Bilirubin AST ALT Alkaline Phosphatase Total Protein Albumin Globulin Albumin/Globulin Ratio Venous Blood Potassium 3.8 Stool Occult Blood Vancomycin Trough Blood Type B POSITIVE Antibody Screen Negative Crossmatch See Detail BBK History Checked Patient has bt 11/18/16 11/18/16 11/18/16 19:35 19:35 22:15 WBC 26.2 H* D RBC 2.70 L Hgb 8.5 L Hct 23.0 L MCV 85.2 MCH 31.5 MCHC 37.0 RDW 16.0 H Plt Count 118 L MPV 9.4 Baso % (Auto) 0.6 Baso # 0.16 Corrected WBC (Man) Neutrophils % (Manual) Band Neutrophils % Lymphocytes % (Manual) Monocytes % (Manual) Metamyelocytes % Myelocytes % Nucleated RBC % Smudge Cells Platelet Evaluation Polychromasia Hypochromasia Poikilocytosis (manual Anisocytosis (manual) Spherocytes Sickle Cells Tear Drop Cells Ovalocytes Hemoglobinopathy Red Blood Count Hemoglobinopathy Hct Hemoglobinopathy Hgb Hemoglobinopathy MCV Hemoglobinopathy MCH Hemoglobinopathy RDW PT 22.0 H INR 2.04 H APTT pCO2 37 pO2 260.0 H HCO3 25.1 ABG pH 7.44 ABG Total CO2 26.2 ABG O2 Saturation 101.7 H ABG O2 Content 11.4 L ABG Base Excess 0.9 ABG Hemoglobin 7.8 L ABG Carboxyhemoglobin 2.3 H POC ABG HHb (Measured) -1.6 L ABG Methemoglobin 2.1 ABG O2 Capacity 11.2 L VBG pH VBG pCO2 VBG HCO3 VBG Total CO2 VBG O2 Sat (Calc) VBG Base Excess VBG Potassium Hgb O2 Saturation 97.2 Sodium Chloride Glucose Lactate FiO2 100.0 Potassium Carbon Dioxide Anion Gap BUN Creatinine Est GFR ( Amer) Est GFR (Non-Af Amer) POC Glucose (mg/dL) Random Glucose Calcium Phosphorus Magnesium Total Bilirubin AST ALT Alkaline Phosphatase Total Protein Albumin Globulin Albumin/Globulin Ratio Venous Blood Potassium Stool Occult Blood Vancomycin Trough Blood Type Antibody Screen Crossmatch BBK History Checked 11/18/16 11/19/16 11/19/16 23:12 05:56 06:31 WBC RBC Hgb Hct MCV MCH MCHC RDW Plt Count MPV Baso % (Auto) Baso # Corrected WBC (Man) Neutrophils % (Manual) Band Neutrophils % Lymphocytes % (Manual) Monocytes % (Manual) Metamyelocytes % Myelocytes % Nucleated RBC % Smudge Cells Platelet Evaluation Polychromasia Hypochromasia Poikilocytosis (manual Anisocytosis (manual) Spherocytes Sickle Cells Tear Drop Cells Ovalocytes Hemoglobinopathy Red Blood Count Hemoglobinopathy Hct Hemoglobinopathy Hgb Hemoglobinopathy MCV Hemoglobinopathy MCH Hemoglobinopathy RDW PT INR APTT pCO2 pO2 78 H HCO3 ABG pH ABG Total CO2 ABG O2 Saturation ABG O2 Content ABG Base Excess ABG Hemoglobin ABG Carboxyhemoglobin POC ABG HHb (Measured) ABG Methemoglobin ABG O2 Capacity VBG pH 7.37 VBG pCO2 41.0 VBG HCO3 23.7 VBG Total CO2 25.0 VBG O2 Sat (Calc) 100.3 H VBG Base Excess -1.5 L VBG Potassium 4.0 Hgb O2 Saturation Sodium 132.0 Chloride 97.0 L Glucose 87 Lactate 9.1 H* FiO2 21.0 Potassium Carbon Dioxide Anion Gap BUN Creatinine Est GFR ( Amer) Est GFR (Non-Af Amer) POC Glucose (mg/dL) 100 81 Random Glucose Calcium Phosphorus Magnesium Total Bilirubin AST ALT Alkaline Phosphatase Total Protein Albumin Globulin Albumin/Globulin Ratio Venous Blood Potassium 4.0 Stool Occult Blood Vancomycin Trough Blood Type Antibody Screen Crossmatch BBK History Checked 11/19/16 11/19/16 11/19/16 06:31 06:31 06:31 WBC 33.2 H* D RBC 2.18 L Hgb 7.2 L Hct 18.9 L* MCV 86.7 MCH 33.0 MCHC 38.1 H RDW 16.4 H Plt Count 90 L MPV 10.2 Baso % (Auto) 0.4 Baso # 0.13 Corrected WBC (Man) 7.0 Neutrophils % (Manual) 60 Band Neutrophils % 5 H Lymphocytes % (Manual) 28 Monocytes % (Manual) 1 Metamyelocytes % 2 Myelocytes % 4 Nucleated RBC % 375 Smudge Cells Present Platelet Evaluation Low Polychromasia 1+ Hypochromasia 2+ Poikilocytosis (manual 1+ Anisocytosis (manual) 2+ Spherocytes Slight Sickle Cells Slight Tear Drop Cells Slight Ovalocytes Slight Hemoglobinopathy Red Blood Count Hemoglobinopathy Hct Hemoglobinopathy Hgb Hemoglobinopathy MCV Hemoglobinopathy MCH Hemoglobinopathy RDW PT 22.1 H INR 2.05 H APTT pCO2 pO2 HCO3 ABG pH ABG Total CO2 ABG O2 Saturation ABG O2 Content ABG Base Excess ABG Hemoglobin ABG Carboxyhemoglobin POC ABG HHb (Measured) ABG Methemoglobin ABG O2 Capacity VBG pH VBG pCO2 VBG HCO3 VBG Total CO2 VBG O2 Sat (Calc) VBG Base Excess VBG Potassium Hgb O2 Saturation Sodium 133 Chloride 93 L Glucose Lactate FiO2 Potassium 4.0 Carbon Dioxide 23 Anion Gap 21 H BUN 33 H Creatinine 1.8 H Est GFR ( Amer) 38 Est GFR (Non-Af Amer) 31 POC Glucose (mg/dL) Random Glucose 81 Calcium 6.7 L* Phosphorus 5.3 H Magnesium 1.8 Total Bilirubin 18.9 H* AST 1970 H ALT 283 H Alkaline Phosphatase 616 H D Total Protein 5.5 L Albumin 2.4 L Globulin 3.2 Albumin/Globulin Ratio 0.8 L Venous Blood Potassium Stool Occult Blood Vancomycin Trough Blood Type Antibody Screen Crossmatch BBK History Checked 11/19/16 11/19/16 11/19/16 10:00 10:00 10:00 WBC 36.4 H* RBC 2.22 L Hgb 7.3 L Hct 19.4 L* MCV 87.4 MCH 32.9 MCHC 37.6 H RDW 16.5 H Plt Count 93 L MPV 10.4 Baso % (Auto) 0.5 Baso # 0.18 Corrected WBC (Man) 7.1 Neutrophils % (Manual) 72 H Band Neutrophils % 2 Lymphocytes % (Manual) 20 L Monocytes % (Manual) 2 Metamyelocytes % 1 Myelocytes % 3 Nucleated RBC % 410 Smudge Cells Present Platelet Evaluation Low Polychromasia Slight Hypochromasia 2+ Poikilocytosis (manual Anisocytosis (manual) 1+ Spherocytes Sickle Cells Slight Tear Drop Cells Slight Ovalocytes Slight Hemoglobinopathy Red Blood Count Hemoglobinopathy Hct Hemoglobinopathy Hgb Hemoglobinopathy MCV Hemoglobinopathy MCH Hemoglobinopathy RDW PT 21.3 H INR 1.97 H APTT 83.0 H* pCO2 pO2 HCO3 ABG pH ABG Total CO2 ABG O2 Saturation ABG O2 Content ABG Base Excess ABG Hemoglobin ABG Carboxyhemoglobin POC ABG HHb (Measured) ABG Methemoglobin ABG O2 Capacity VBG pH VBG pCO2 VBG HCO3 VBG Total CO2 VBG O2 Sat (Calc) VBG Base Excess VBG Potassium Hgb O2 Saturation Sodium Chloride Glucose Lactate FiO2 Potassium Carbon Dioxide Anion Gap BUN Creatinine Est GFR ( Amer) Est GFR (Non-Af Amer) POC Glucose (mg/dL) Random Glucose Calcium Phosphorus Magnesium Total Bilirubin AST ALT Alkaline Phosphatase Total Protein Albumin Globulin Albumin/Globulin Ratio Venous Blood Potassium Stool Occult Blood Vancomycin Trough 16.3 H* Blood Type Antibody Screen Crossmatch BBK History Checked 11/19/16 11/19/16 11/19/16 10:00 10:05 11:07 WBC RBC Hgb Hct MCV MCH MCHC RDW Plt Count MPV Baso % (Auto) Baso # Corrected WBC (Man) Neutrophils % (Manual) Band Neutrophils % Lymphocytes % (Manual) Monocytes % (Manual) Metamyelocytes % Myelocytes % Nucleated RBC % Smudge Cells Platelet Evaluation Polychromasia Hypochromasia Poikilocytosis (manual Anisocytosis (manual) Spherocytes Sickle Cells Tear Drop Cells Ovalocytes Hemoglobinopathy Red Blood Count Hemoglobinopathy Hct Hemoglobinopathy Hgb Hemoglobinopathy MCV Hemoglobinopathy MCH Hemoglobinopathy RDW PT INR APTT pCO2 pO2 HCO3 ABG pH ABG Total CO2 ABG O2 Saturation ABG O2 Content ABG Base Excess ABG Hemoglobin ABG Carboxyhemoglobin POC ABG HHb (Measured) ABG Methemoglobin ABG O2 Capacity VBG pH VBG pCO2 VBG HCO3 VBG Total CO2 VBG O2 Sat (Calc) VBG Base Excess VBG Potassium Hgb O2 Saturation Sodium 132 Chloride 92 L Glucose Lactate FiO2 Potassium 4.3 Carbon Dioxide 24 Anion Gap 20 BUN 35 H Creatinine 1.8 H Est GFR ( Amer) 38 Est GFR (Non-Af Amer) 31 POC Glucose (mg/dL) 89 Random Glucose 93 Calcium 7.0 L Phosphorus 5.7 H Magnesium 1.9 Total Bilirubin 19.7 H* AST 2093 H ALT 296 H Alkaline Phosphatase 688 H Total Protein 5.8 Albumin 2.5 L Globulin 3.3 Albumin/Globulin Ratio 0.8 L Venous Blood Potassium Stool Occult Blood Vancomycin Trough Blood Type B POSITIVE Antibody Screen Negative Crossmatch See Detail BBK History Checked Patient has bt 11/19/16 11/19/16 13:43 15:44 WBC RBC Hgb Hct MCV MCH MCHC RDW Plt Count MPV Baso % (Auto) Baso # Corrected WBC (Man) Neutrophils % (Manual) Band Neutrophils % Lymphocytes % (Manual) Monocytes % (Manual) Metamyelocytes % Myelocytes % Nucleated RBC % Smudge Cells Platelet Evaluation Polychromasia Hypochromasia Poikilocytosis (manual Anisocytosis (manual) Spherocytes Sickle Cells Tear Drop Cells Ovalocytes Hemoglobinopathy Red Blood Count Hemoglobinopathy Hct Hemoglobinopathy Hgb Hemoglobinopathy MCV Hemoglobinopathy MCH Hemoglobinopathy RDW PT INR APTT pCO2 pO2 41 HCO3 ABG pH ABG Total CO2 ABG O2 Saturation ABG O2 Content ABG Base Excess ABG Hemoglobin ABG Carboxyhemoglobin POC ABG HHb (Measured) ABG Methemoglobin ABG O2 Capacity VBG pH 7.19 L* VBG pCO2 49.0 VBG HCO3 18.7 L VBG Total CO2 20.2 L VBG O2 Sat (Calc) 75.1 H VBG Base Excess -9.6 L VBG Potassium 4.6 Hgb O2 Saturation Sodium 131.0 L Chloride 96.0 L Glucose 83 Lactate 12.1 H* FiO2 21.0 Potassium Carbon Dioxide Anion Gap BUN Creatinine Est GFR ( Amer) Est GFR (Non-Af Amer) POC Glucose (mg/dL) Random Glucose Calcium Phosphorus Magnesium Total Bilirubin AST ALT Alkaline Phosphatase Total Protein Albumin Globulin Albumin/Globulin Ratio Venous Blood Potassium 4.6 Stool Occult Blood Positive H Vancomycin Trough Blood Type Antibody Screen Crossmatch BBK History Checked EKG/Cardiology Studies: Cardiology / EKG Studies 11/19/16 03:52 EKG [ELECTROCARDIOGRAM] Stat Comment: Reason For Exam: evaluate for arrythmia Critical Care Progress Note - Nutrition Nutrition: Nutrition Category Date Time Status NPO Diet [DIET] Diets 11/18/16 Dinner Ordered Assessment/Plan - Assessment and Plan (Free Text) Plan: Patient seen and examined, on rounds with resident, agree with note, A/P with following exceptions/additions. Patient is 36yo female with PMhx of sickle cell disease, on hydroxyurea, admitted to MICU with acute liver failure, sick cell crisis, acute chest syndrome, vaso-occlusive crisis, requiring exchange transfusion, septic shock and HD. Patient currently on Levophed 15 mcg/min, Vasopressin added this morning, as well as stress dose steroids. Patient today with more rigid abdomen, increasing lactate, will obtain CT A/P. I spoke to [facility]-Liver transplant team, Dr Mathew-fellow yesterday, and discussed the case with him, he informed me that the patient is not liver transplant candidate at this time. [facility] Heptaology attending Dr Martines informed me today that that institution will not accept her for further care as their liver transplant program is on hold for now. Will continue with aggressive care. Patient remains intubated and sedated Had a extensive discussion today with mother. Family understands the acuity and critical illness of the patient. Status EGD today with cautery. Patient continues to have oozing, and bloody output from lovett. Will transfuse 2u FFP, Vit K, and 1u PRBC today Sickle Cell Disease Vaso-occlusive crisis s/p exchange transfusion Acute Chest Syndrome Renal failure s/p HD Coagulopathy Septic Shock Liver failure without hepatic coma Recommend - keep intubated, sedated, repeat ABG - Duonebs - cont with broad spectrum abx, Cefepime, Vanco, would talk to ID about broadening abx to Merrem - check procalcitonin - transfuse 2u FFP, Vit K, and 1u PRBC - Obtain CT A/P without contrast - check Hgb S % - follow up cultures - HD as per Renal - follow up hematology, may need another exchange transfusion - q6hr INR, CBC, CMP - Rifaxamin, Lactulose - check Ammonia level - follow up GI - monitor FS - monitor electrolytes - titrate levopehed, goal MAP 65 - monitor HH - DVT ppx SCDs - GI ppx, Pepcid - patient at high risk for morbidity and mortality critical care time: 45 minutes
[2016-11-19 13:48] LABS: VENOUS BLOOD GAS BASE EXCESS -9.6 mmol/L (0.0-2.0)
[2016-11-19 13:52] LABS: VENOUS BLOOD PH 7.19 (7.32-7.43)
[2016-11-19] MEDS: Ergocalciferol 50,000 Intl Units Cap PO SCH (14:47)
[2016-11-19] MEDS: Cefepime 1gm in NS 100ml 1 GM/100 ML BAG IVPB SCH (14:49)
[2016-11-19] MEDS: Multivitamin With Minerals Tab PO SCH (14:53)
[2016-11-19] MEDS: Vancomycin 1gm in NS 250ml 1 GM/250 ML BAG IVPB SCH (14:54)
--- NOTE | 2016-11-19 19:24 | CT ---
PROCEDURE: CT Abdomen and Pelvis without intravenous contrast HISTORY: assess structures, abd fullness. History of cholecystectomy, history of splenectomy. COMPARISON: Comparison is made to the previous study dated 12/22/2015 TECHNIQUE: Axial and reformatted coronal and sagittal CT images of the abdomen and pelvis were obtained without IV or oral contrast administration.. Contrast Dose: 0 Radiation dose: Total exam DLP = 1081.76 mGy-cm. This CT exam was performed using one or more of the following dose reduction techniques: Automated exposure control, adjustment of the mA and/or kV according to patient size, and/or use of iterative reconstruction technique. FINDINGS: LOWER THORAX: Airspace consolidation at the lower lobes are noted larger on the right may represent atelectasis or aspiration or pneumonia. The heart is enlarged. LIVER: The liver is again has irregular contour and abnormal appearance with relatively enlargement of the caudate and left liver lobe suggestive of cirrhosis. There is diffuse high attenuation of the liver parenchyma of uncertain etiology. GALLBLADDER AND BILE DUCTS: The gallbladder is not visualized consistent with prior cholecystectomy. PANCREAS: Unremarkable. No gross lesion or ductal dilatation. SPLEEN: The spleen is not visualized. ADRENALS: Unremarkable. No mass. KIDNEYS AND URETERS: Unremarkable. No hydronephrosis. No solid mass. VASCULATURE: There is catheter in the left femoral vein extending to the left common iliac vein likely represent hemodialysis catheter. . No aortic aneurysm. BOWEL: There is diffuse large bowel wall thickening more prominent at the ascending transverse and descending colon. There is no evidence of pneumatosis. No evidence ofsmall bowel obstruction. APPENDIX: There is no evidence of appendicitis. PERITONEUM: Small to moderate amount of free fluid in the abdomen and pelvis. No evidence of free air. LYMPH NODES: Unremarkable. No enlarged lymph nodes. BLADDER: Diffuse urinary bladder wall thickening. The Diaz catheter is seen at low position. REPRODUCTIVE: Unremarkable. BONES: Heterogeneous attenuation of the osseous structures consistent with the patient's history of sickle-cell disease . OTHER FINDINGS: Moderate anasarca is noted . IMPRESSION: Bilateral lower lobe airspace consolidation may represent atelectasis pneumonia or acute chest syndrome. Cardiomegaly. Hepatomegaly with diffuse increased attenuation of the liver. Small to moderate amount of ascites. Diffuse large bowel wall thickening suspicious for colitis. Moderate anasarca. Low position of the Diaz catheter. Diffuse wall thickening of the urinary bladder suspicious for cystitis.
--- NOTE | 2016-11-19 19:37 | CP.PCM.PN ---
Subjective - Date & Time of Evaluation Date of Evaluation: 11/19/16 Time of Evaluation: 18:00 - Subjective Subjective: Infectious Disease Follow Up: November 19, 2016 36 yo AA female well known to me from previous hospitalizations at [facility] and [facility] presented with generalized pains and admitted for Sickle Cell vasoocclusive Crisis. The patient was just discharged from [facility] [place] [facility] a few days ago. She returns with abdominal pain, nausea, and vomiting. The patient did not exhibit a fever while hospitalized so far but came very close with a 100.0 F. Patient with nausea and vomiting and diarrhea. Her blood pressure is lower than her usual. Started on Zosyn for antibiotic treatment. Sudden elevation of LFTs. Zosyn stopped on 11/14/2016. Impending liver failure ? Acute Kidney Injury. Noted Vancomycin restarted. Would continue with Cefepime for the time being. There is a leukocytosis of 42.0 although corrected WBC is 7.8. Patient appears swollen in general. AST and ALT are still increasing. Chelation therapy still in progress. Undergoing red cell exchange transfusion and plasmapheresis yesterday as well as hemodialysis. Patient remains intubated and ventilated. Extremely poor prognosis. The patient is not a candidate for liver transplant at this time as per the [facility] transplant center. Remained hypotensive overnight despite pressor medications. The patient is poorly responsive. Taken to EGD for cauterization. Supportive care. Renal dosing of antibiotics. Prognosis dismal. Objective - Vital Signs/Intake and Output Vital Signs (last 24 hours): Temp Pulse Resp BP Pulse Ox 98.2 F 117 H 20 100/0 L 98 11/19/16 18:26 11/19/16 18:26 11/19/16 18:26 11/19/16 18:26 11/19/16 11:41 Intake and Output: 11/19/16 11/20/16 18:59 06:59 Intake Total 0 Balance 0 - Medications Medications: Current Medications Albuterol/Ipratropium (Duoneb 3 Mg/0.5 Mg (3 Ml) Ud) 3 ml IH [id number] [facility] Last Admin: 11/19/16 13:42 Dose: 3 ml Budesonide (Pulmicort Respules) 0.5 mg IH [id number] [facility] Last Admin: 11/19/16 07:34 Dose: 0.5 mg Ergocalciferol (Drisdol 50,000 Intl Units Cap) 1 cap PO QWK [facility] Last Admin: 11/19/16 14:47 Dose: Not Given Folic Acid (Folic Acid) 1 mg PO DAILY [facility] Last Admin: 11/19/16 14:47 Dose: Not Given Furosemide (Lasix) 40 mg IVP DAILY [facility] Last Admin: 11/17/16 09:00 Dose: 40 mg Heparin Sodium (Porcine) (Heparin) 5,000 units SC Q12 [facility] PRN Reason: Protocol Last Admin: 11/16/16 21:44 Dose: Not Given Hydrocortisone Sodium Succinate (Solu-Cortef) 50 mg IVP Q8 [facility] Last Admin: 11/19/16 14:57 Dose: 50 mg Hydromorphone HCl (Dilaudid) 1 mg IVP Q3H PRN PRN Reason: Pain, severe (8-10) Last Admin: 11/18/16 13:12 Dose: 1 mg Hydroxyurea (Hydrea) 500 mg PO DAILY [facility] Last Admin: 11/19/16 14:48 Dose: Not Given Vancomycin HCl (Vancomycin 1gm) 1 gm in 250 mls @ 167 mls/hr IVPB DAILY [facility] PRN Reason: Protocol Last Admin: 11/19/16 14:54 Dose: 167 mls/hr Cefepime HCl (Maxipime 1gm) 1 gm in 100 mls @ 100 mls/hr IVPB Q24H [facility] PRN Reason: Protocol Last Admin: 11/19/16 14:49 Dose: 100 mls/hr Dextrose (Dextrose 10% In Water) 500 mls @ 20 mls/hr IV .Q24H [facility] Last Admin: 11/18/16 19:44 Dose: 20 mls/hr Sodium Bicarbonate 150 meq/ (Dextrose) 1,150 mls @ 125 mls/hr IV .Q9H12M [facility] Last Admin: 11/17/16 18:00 Dose: 125 mls/hr Propofol (Diprivan) 1,000 mg in 100 mls @ 2.259 mls/hr IV .Q24H PRN; Protocol; 5 MCG/KG/MIN PRN Reason: TITRATE PER MD ORDER Last Titration: 11/19/16 02:31 Dose: 30 mcg/kg/min, 13.553 mls/hr NOREPINEPHRINE BIT/0.9 % NACL (Levophed 4 Mg/ 250 Ml Ns Premixed) 4 mg in 250 mls @ 15 mls/hr IV .[id number] PRN; Protocol; 4 MCG/MIN PRN Reason: TITRATE PER MD ORDER Last Admin: 11/19/16 07:26 Dose: 15 mcg/min, 56.25 mls/hr Vasopressin 20 units/ Dextrose 101 mls @ 12.12 mls/hr IV .Q8H20M [facility]LETTE; 0.04 U/ MIN PRN Reason: Protocol Last Admin: 11/19/16 08:00 Dose: 12.12 mls/hr Metronidazole (Flagyl) 500 mg in 100 mls @ 100 mls/hr IVPB Q8 [facility] PRN Reason: Protocol Lactic Acid (Lac-Hydrin 12% Cream (140 G)) 0 ea TOP DAILY PRN PRN Reason: Wound Lactulose (Generlac) 200 gm ID Q6 [facility]TTE Stop: 11/24/16 12:01 Last Admin: 11/19/16 12:30 Dose: 200 gm Midazolam HCl (Versed Inj) 1 mg IVP Q3H PRN PRN Reason: sedation Multivitamins/Minerals (Therapeutic-M Tab) 1 tab PO DAILY [facility] Last Admin: 11/19/16 14:53 Dose: Not Given Non-Formulary Medication (Mometasone [Asmanex Twisthaler 110 Mcg]) 100 mcg IH BID [facility] Last Admin: 11/15/16 21:20 Dose: Not Given Pantoprazole Sodium (Protonix Inj) 40 mg IVP Q12 [facility] Rifaximin (Xifaxan) 550 mg PO BID [facility]TTE PRN Reason: Protocol Last Admin: 11/19/16 14:57 Dose: Not Given - Labs Labs: 11/19/16 10:00 11/19/16 10:00 PT 21.3 Seconds (9.9-11.8) H 11/19/16 10:00 INR 1.97 (0.93-1.08) H 11/19/16 10:00 APTT 83.0 Seconds (23.7-30.8) H* 11/19/16 10:00 - Constitutional Appears: Toxic, Chronically Ill - Head Exam Additional comments: intubated and ventilated. +1 edema of the face. - Eye Exam Eye Exam: EOMI, PERRL Pupil Exam: NORMAL ACCOMODATION, PERRL - ENT Exam ENT Exam: Mucous Membranes Moist, Normal External Ear Exam, TM's Normal Bilaterally - Neck Exam Neck Exam: Full ROM, Normal Inspection - Respiratory Exam Additional comments: intubated and ventilated - Cardiovascular Exam Cardiovascular Exam: REGULAR RHYTHM, RRR, +S1, +S2 - GI/Abdominal Exam GI & Abdominal Exam: Distended, Soft, Hypoactive Bowel Sounds - Extremities Exam Extremities Exam: Joint Swelling, Pedal Edema - Neurological Exam Neurological Exam: absent: Alert, Awake Additional comments: intubated and sedated... poorly responsive today. - Psychiatric Exam Additional comments: Poorly responsive Assessment and Plan - Assessment and Plan (Free Text) Assessment: 36 yo AA female with known Sickle Cell disease presenting with diarrhea and abdominal pain. Low blood pressure/borderline hypotension. Supportive care. Velarde cultures. No leukocytosis noted however. Coagulase negative staph according to FISH studies. Sudden increase in LFTs and creatinine. Continue with renal dosing of Cefepime for now. Vancomycin should be adjusted for renal function. LFT are continuing to increase. Acute Kidney Injury with creatinine of 2.5. Remains in MICU for further care. General edema of the patient. Today patient was intubated and ventilated. Increasing leukocytosis. If continues to increase, will consider use of meropenem. Noted that the patient's cultures are negative to date. LFTs remain severely elevated. 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 Extremely poor prognosis. Intubated and Ventilated. Generalized edema. Liver Cirrhosis. Not deemed a candidate for liver transplant by [facility] [place]. EGD done today with cauterization of an ulcer. Patient's prognosis remains poor to dismal. Thank you for allowing me to participate in the care of the patient, we will follow with you.
--- NOTE | 2016-11-19 20:03 | CP.PCM.CON ---
History of Present Illness - History of Present Illness History of Present Illness: General Surgery Consult Note. Dr. Chandra Hx obtained by chart review. 36yo F with PMHx of Cerebral Palsy, CHF, Sickle cell disease, Bipolar Disorder, Asthma, Liver Cirrhosis initially came to the hospital for evaluation of abdominal pain. Patient has had a complicated hospital course. Patient with likely vasoocclusive sickle cell disease with hepatic failure, worsening respiratory state, intubated on vent. Patient underwent Red cell exchange transfusion with no significant response. Patient found to have acute upper GI bleed today, bedside EGD performed with cautery and epi injection. Currently, patient has evidence of multiorgan failure. CT abd performed and surgical consult requested for possibility of surgical colitis. ROS unobtainable due to patient condition. PMHx: Sickle Cell Disease, Bipolar Disorder, Asthma, Cerebral Palsy, CHF, Liver Cirrhosis PSHx: Cholecystectomy, Portacath Allergy: Tylenol, ASA, Oxycodone, Morphine Review of Systems - Review of Systems Systems not reviewed;Unavailable: Intubated Past Patient History - Infectious Disease Hx of Infectious Diseases: None - Tetanus Immunizations Tetanus Immunization: Up to Date - Past Medical History & Family History Past Medical History?: Yes - Past Social History Smoking Status: Former Smoker - CARDIAC Hx Cardiac Disorders: Yes Hx Hypertension: Yes - PULMONARY Hx Asthma: Yes - NEUROLOGICAL Hx Neurological Disorder: No Other/Comment: CP - HEENT Hx HEENT Problems: No - RENAL Hx Chronic Kidney Disease: No - ENDOCRINE/METABOLIC Hx Endocrine Disorders: Yes - HEMATOLOGICAL/ONCOLOGICAL Hx Blood Transfusions: Yes Hx Blood Transfusion Reaction: No - INTEGUMENTARY Hx Dermatological Problems: Yes Hx Eczema: Yes - MUSCULOSKELETAL/RHEUMATOLOGICAL Hx Falls: No - GASTROINTESTINAL Hx Gastrointestinal Disorders: Yes Hx Gastroesophageal Reflux: Yes Hx Pancreatitis: Yes - GENITOURINARY/GYNECOLOGICAL Hx Genitourinary Disorders: Yes Hx Urinary Tract Infection: Yes - PSYCHIATRIC Hx Psychophysiologic Disorder: Yes Hx Anxiety: Yes Hx Bipolar Disorder: Yes Hx Substance Use: No - SURGICAL HISTORY Hx Surgeries: Yes - ANESTHESIA Hx Anesthesia Reactions: No Hx Malignant Hyperthermia: No Meds Allergies/Adverse Reactions: Allergies Allergy/AdvReac Type Severity Reaction Status Date / Time acetaminophen Allergy RASH Verified 09/24/16 12:42 aspirin Allergy RASH Verified 09/24/16 12:42 coconut oil Allergy RASH Verified 09/24/16 12:42 morphine Allergy SWELLING Verified 09/24/16 12:42 mushroom Allergy URTICARIA Verified 09/24/16 12:42 oxycodone Allergy RASH Verified 09/24/16 12:42 - Medications Medications: Current Medications Albuterol/Ipratropium (Duoneb 3 Mg/0.5 Mg (3 Ml) Ud) 3 ml IH [id number] [facility] Last Admin: 11/19/16 19:45 Dose: 3 ml Budesonide (Pulmicort Respules) 0.5 mg IH [id number] [facility] Last Admin: 11/19/16 19:45 Dose: 0.5 mg Ergocalciferol (Drisdol 50,000 Intl Units Cap) 1 cap PO QWK [facility] Last Admin: 11/19/16 14:47 Dose: Not Given Folic Acid (Folic Acid) 1 mg PO DAILY [facility] Last Admin: 11/19/16 14:47 Dose: Not Given Furosemide (Lasix) 40 mg IVP DAILY [facility] Last Admin: 11/17/16 09:00 Dose: 40 mg Heparin Sodium (Porcine) (Heparin) 5,000 units SC Q12 [facility] PRN Reason: Protocol Last Admin: 11/16/16 21:44 Dose: Not Given Hydrocortisone Sodium Succinate (Solu-Cortef) 50 mg IVP Q8 [facility] Last Admin: 11/19/16 14:57 Dose: 50 mg Hydromorphone HCl (Dilaudid) 1 mg IVP Q3H PRN PRN Reason: Pain, severe (8-10) Last Admin: 11/18/16 13:12 Dose: 1 mg Hydroxyurea (Hydrea) 500 mg PO DAILY [facility] Last Admin: 11/19/16 14:48 Dose: Not Given Vancomycin HCl (Vancomycin 1gm) 1 gm in 250 mls @ 167 mls/hr IVPB DAILY [facility] PRN Reason: Protocol Last Admin: 11/19/16 14:54 Dose: 167 mls/hr Cefepime HCl (Maxipime 1gm) 1 gm in 100 mls @ 100 mls/hr IVPB Q24H [facility] PRN Reason: Protocol Last Admin: 11/19/16 14:49 Dose: 100 mls/hr Dextrose (Dextrose 10% In Water) 500 mls @ 20 mls/hr IV .Q24H [facility] Last Admin: 11/18/16 19:44 Dose: 20 mls/hr Sodium Bicarbonate 150 meq/ (Dextrose) 1,150 mls @ 125 mls/hr IV .Q9H12M [facility] Last Admin: 11/17/16 18:00 Dose: 125 mls/hr Propofol (Diprivan) 1,000 mg in 100 mls @ 2.259 mls/hr IV .Q24H PRN; Protocol; 5 MCG/KG/MIN PRN Reason: TITRATE PER MD ORDER Last Titration: 11/19/16 02:31 Dose: 30 mcg/kg/min, 13.553 mls/hr NOREPINEPHRINE BIT/0.9 % NACL (Levophed 4 Mg/ 250 Ml Ns Premixed) 4 mg in 250 mls @ 15 mls/hr IV .[id number] PRN; Protocol; 4 MCG/MIN PRN Reason: TITRATE PER MD ORDER Last Admin: 11/19/16 07:26 Dose: 15 mcg/min, 56.25 mls/hr Vasopressin 20 units/ Dextrose 101 mls @ 12.12 mls/hr IV .Q8H20M ARLETTE; 0.04 U/ MIN PRN Reason: Protocol Last Admin: 11/19/16 08:00 Dose: 12.12 mls/hr Metronidazole (Flagyl) 500 mg in 100 mls @ 100 mls/hr IVPB Q8 [facility] PRN Reason: Protocol Piperacillin Sod/Tazobactam Sod (Zosyn 2.25 Gm In 0.9% 100 Ml) 2.25 gm in 100 mls @ 100 mls/hr IVPB Q6 [facility] PRN Reason: Protocol Stop: 11/20/16 06:59 Lactic Acid (Lac-Hydrin 12% Cream (140 G)) 0 ea TOP DAILY PRN PRN Reason: Wound Lactulose (Generlac) 200 gm [place] Q6 [facility] Stop: 11/24/16 12:01 Last Admin: 11/19/16 12:30 Dose: 200 gm Midazolam HCl (Versed Inj) 1 mg IVP Q3H PRN PRN Reason: sedation Multivitamins/Minerals (Therapeutic-M Tab) 1 tab PO DAILY [facility] Last Admin: 11/19/16 14:53 Dose: Not Given Non-Formulary Medication (Mometasone [Asmanex Twisthaler 110 Mcg]) 100 mcg IH BID [facility] Last Admin: 11/15/16 21:20 Dose: Not Given Pantoprazole Sodium (Protonix Inj) 40 mg IVP Q12 [facility] Rifaximin (Xifaxan) 550 mg PO BID [facility] PRN Reason: Protocol Last Admin: 11/19/16 14:57 Dose: Not Given Physical Exam - Constitutional Appears: Chronically Ill - Head Exam Head Exam: ATRAUMATIC, NORMOCEPHALIC Additional comments: Intubated and sedated, on vent - Eye Exam Additional comments: Does not respond to verbal stimuli. Minimal eye movement and opening to painful stimuli - ENT Exam Additional comments: Dried blood noted around ET tube - Respiratory Exam Respiratory Exam: Decreased Breath Sounds, Rhonchi, Wheezes Additional comments: Intubated and on vent - Cardiovascular Exam Cardiovascular Exam: RRR, +S1, +S2. absent: JVD - GI/Abdominal Exam GI & Abdominal Exam: Firm. absent: Distended, Guarding, Rebound, Rigid, Tenderness Additional comments: NGT to suction with red output noted - Exam Additional comments: lovett in place with dark output noted - Extremities Exam Extremities exam: Positive for: normal inspection. Negative for: calf tenderness - Neurological Exam Additional comments: Intubated and sedated - Skin Skin Exam: Warm Results - Vital Signs Recent Vital Signs: Last Vital Signs Temp 98.2 F 11/19/16 18:26 Pulse 117 H 11/19/16 18:26 Resp 20 11/19/16 18:26 BP 100/0 L 11/19/16 18:26 Pulse Ox 98 11/19/16 11:41 - Labs Result Diagrams: 11/19/16 10:00 11/19/16 10:00 Labs: Laboratory Results - last 24 hr 11/16/16 11/18/16 11/18/16 20:00 03:05 19:35 WBC RBC Hgb Hct MCV MCH MCHC RDW Plt Count MPV Baso % (Auto) Baso # Corrected WBC (Man) Neutrophils % (Manual) Band Neutrophils % Lymphocytes % (Manual) Monocytes % (Manual) Metamyelocytes % Myelocytes % Nucleated RBC % Smudge Cells Platelet Evaluation Polychromasia Hypochromasia Poikilocytosis (manual Anisocytosis (manual) Spherocytes Sickle Cells Tear Drop Cells Ovalocytes Hemoglobinopathy Red Blood Count 2.82 L Hemoglobinopathy Hct 24.6 L Hemoglobinopathy Hgb 8.9 L Hemoglobinopathy MCV 87.3 Hemoglobinopathy MCH 31.5 Hemoglobinopathy RDW 15.4 H PT INR APTT pCO2 pO2 72 H HCO3 ABG pH ABG Total CO2 ABG O2 Saturation ABG O2 Content ABG Base Excess ABG Hemoglobin ABG Carboxyhemoglobin POC ABG HHb (Measured) ABG Methemoglobin ABG O2 Capacity VBG pH 7.39 VBG pCO2 47.0 VBG HCO3 28.5 H VBG Total CO2 29.9 H VBG O2 Sat (Calc) 100.0 H VBG Base Excess 2.8 H VBG Potassium 3.8 Hgb O2 Saturation Sodium 133.0 Chloride 96.0 L Glucose 113 H Lactate 6.0 H* FiO2 21.0 Potassium Carbon Dioxide Anion Gap BUN Creatinine Est GFR ( Amer) Est GFR (Non-Af Amer) POC Glucose (mg/dL) Random Glucose Calcium Phosphorus Magnesium Total Bilirubin AST ALT Alkaline Phosphatase Total Protein Albumin Globulin Albumin/Globulin Ratio Venous Blood Potassium 3.8 Stool Occult Blood Vancomycin Trough Blood Type B POSITIVE Antibody Screen Negative Crossmatch See Detail BBK History Checked Patient has bt 11/18/16 11/18/16 11/18/16 19:35 22:15 23:12 WBC 26.2 H* D RBC 2.70 L Hgb 8.5 L Hct 23.0 L MCV 85.2 MCH 31.5 MCHC 37.0 RDW 16.0 H Plt Count 118 L MPV 9.4 Baso % (Auto) 0.6 Baso # 0.16 Corrected WBC (Man) Neutrophils % (Manual) Band Neutrophils % Lymphocytes % (Manual) Monocytes % (Manual) Metamyelocytes % Myelocytes % Nucleated RBC % Smudge Cells Platelet Evaluation Polychromasia Hypochromasia Poikilocytosis (manual Anisocytosis (manual) Spherocytes Sickle Cells Tear Drop Cells Ovalocytes Hemoglobinopathy Red Blood Count Hemoglobinopathy Hct Hemoglobinopathy Hgb Hemoglobinopathy MCV Hemoglobinopathy MCH Hemoglobinopathy RDW PT INR APTT pCO2 37 pO2 260.0 H HCO3 25.1 ABG pH 7.44 ABG Total CO2 26.2 ABG O2 Saturation 101.7 H ABG O2 Content 11.4 L ABG Base Excess 0.9 ABG Hemoglobin 7.8 L ABG Carboxyhemoglobin 2.3 H POC ABG HHb (Measured) -1.6 L ABG Methemoglobin 2.1 ABG O2 Capacity 11.2 L VBG pH VBG pCO2 VBG HCO3 VBG Total CO2 VBG O2 Sat (Calc) VBG Base Excess VBG Potassium Hgb O2 Saturation 97.2 Sodium Chloride Glucose Lactate FiO2 100.0 Potassium Carbon Dioxide Anion Gap BUN Creatinine Est GFR ( Amer) Est GFR (Non-Af Amer) POC Glucose (mg/dL) 100 Random Glucose Calcium Phosphorus Magnesium Total Bilirubin AST ALT Alkaline Phosphatase Total Protein Albumin Globulin Albumin/Globulin Ratio Venous Blood Potassium Stool Occult Blood Vancomycin Trough Blood Type Antibody Screen Crossmatch BBK History Checked 11/19/16 11/19/16 11/19/16 05:56 06:31 06:31 WBC RBC Hgb Hct MCV MCH MCHC RDW Plt Count MPV Baso % (Auto) Baso # Corrected WBC (Man) Neutrophils % (Manual) Band Neutrophils % Lymphocytes % (Manual) Monocytes % (Manual) Metamyelocytes % Myelocytes % Nucleated RBC % Smudge Cells Platelet Evaluation Polychromasia Hypochromasia Poikilocytosis (manual Anisocytosis (manual) Spherocytes Sickle Cells Tear Drop Cells Ovalocytes Hemoglobinopathy Red Blood Count Hemoglobinopathy Hct Hemoglobinopathy Hgb Hemoglobinopathy MCV Hemoglobinopathy MCH Hemoglobinopathy RDW PT 22.1 H INR 2.05 H APTT pCO2 pO2 78 H HCO3 ABG pH ABG Total CO2 ABG O2 Saturation ABG O2 Content ABG Base Excess ABG Hemoglobin ABG Carboxyhemoglobin POC ABG HHb (Measured) ABG Methemoglobin ABG O2 Capacity VBG pH 7.37 VBG pCO2 41.0 VBG HCO3 23.7 VBG Total CO2 25.0 VBG O2 Sat (Calc) 100.3 H VBG Base Excess -1.5 L VBG Potassium 4.0 Hgb O2 Saturation Sodium 132.0 Chloride 97.0 L Glucose 87 Lactate 9.1 H* FiO2 21.0 Potassium Carbon Dioxide Anion Gap BUN Creatinine Est GFR ( Amer) Est GFR (Non-Af Amer) POC Glucose (mg/dL) 81 Random Glucose Calcium Phosphorus Magnesium Total Bilirubin AST ALT Alkaline Phosphatase Total Protein Albumin Globulin Albumin/Globulin Ratio Venous Blood Potassium 4.0 Stool Occult Blood Vancomycin Trough Blood Type Antibody Screen Crossmatch BBK History Checked 11/19/16 11/19/16 11/19/16 06:31 06:31 10:00 WBC 33.2 H* D RBC 2.18 L Hgb 7.2 L Hct 18.9 L* MCV 86.7 MCH 33.0 MCHC 38.1 H RDW 16.4 H Plt Count 90 L MPV 10.2 Baso % (Auto) 0.4 Baso # 0.13 Corrected WBC (Man) 7.0 Neutrophils % (Manual) 60 Band Neutrophils % 5 H Lymphocytes % (Manual) 28 Monocytes % (Manual) 1 Metamyelocytes % 2 Myelocytes % 4 Nucleated RBC % 375 Smudge Cells Present Platelet Evaluation Low Polychromasia 1+ Hypochromasia 2+ Poikilocytosis (manual 1+ Anisocytosis (manual) 2+ Spherocytes Slight Sickle Cells Slight Tear Drop Cells Slight Ovalocytes Slight Hemoglobinopathy Red Blood Count Hemoglobinopathy Hct Hemoglobinopathy Hgb Hemoglobinopathy MCV Hemoglobinopathy MCH Hemoglobinopathy RDW PT INR APTT pCO2 pO2 HCO3 ABG pH ABG Total CO2 ABG O2 Saturation ABG O2 Content ABG Base Excess ABG Hemoglobin ABG Carboxyhemoglobin POC ABG HHb (Measured) ABG Methemoglobin ABG O2 Capacity VBG pH VBG pCO2 VBG HCO3 VBG Total CO2 VBG O2 Sat (Calc) VBG Base Excess VBG Potassium Hgb O2 Saturation Sodium 133 Chloride 93 L Glucose Lactate FiO2 Potassium 4.0 Carbon Dioxide 23 Anion Gap 21 H BUN 33 H Creatinine 1.8 H Est GFR ( Amer) 38 Est GFR (Non-Af Amer) 31 POC Glucose (mg/dL) Random Glucose 81 Calcium 6.7 L* Phosphorus 5.3 H Magnesium 1.8 Total Bilirubin 18.9 H* AST 1970 H ALT 283 H Alkaline Phosphatase 616 H D Total Protein 5.5 L Albumin 2.4 L Globulin 3.2 Albumin/Globulin Ratio 0.8 L Venous Blood Potassium Stool Occult Blood Vancomycin Trough 16.3 H* Blood Type Antibody Screen Crossmatch BBK History Checked 11/19/16 11/19/16 11/19/16 10:00 10:00 10:00 WBC 36.4 H* RBC 2.22 L Hgb 7.3 L Hct 19.4 L* MCV 87.4 MCH 32.9 MCHC 37.6 H RDW 16.5 H Plt Count 93 L MPV 10.4 Baso % (Auto) 0.5 Baso # 0.18 Corrected WBC (Man) 7.1 Neutrophils % (Manual) 72 H Band Neutrophils % 2 Lymphocytes % (Manual) 20 L Monocytes % (Manual) 2 Metamyelocytes % 1 Myelocytes % 3 Nucleated RBC % 410 Smudge Cells Present Platelet Evaluation Low Polychromasia Slight Hypochromasia 2+ Poikilocytosis (manual Anisocytosis (manual) 1+ Spherocytes Sickle Cells Slight Tear Drop Cells Slight Ovalocytes Slight Hemoglobinopathy Red Blood Count Hemoglobinopathy Hct Hemoglobinopathy Hgb Hemoglobinopathy MCV Hemoglobinopathy MCH Hemoglobinopathy RDW PT 21.3 H INR 1.97 H APTT 83.0 H* pCO2 pO2 HCO3 ABG pH ABG Total CO2 ABG O2 Saturation ABG O2 Content ABG Base Excess ABG Hemoglobin ABG Carboxyhemoglobin POC ABG HHb (Measured) ABG Methemoglobin ABG O2 Capacity VBG pH VBG pCO2 VBG HCO3 VBG Total CO2 VBG O2 Sat (Calc) VBG Base Excess VBG Potassium Hgb O2 Saturation Sodium 132 Chloride 92 L Glucose Lactate FiO2 Potassium 4.3 Carbon Dioxide 24 Anion Gap 20 BUN 35 H Creatinine 1.8 H Est GFR ( Amer) 38 Est GFR (Non-Af Amer) 31 POC Glucose (mg/dL) Random Glucose 93 Calcium 7.0 L Phosphorus 5.7 H Magnesium 1.9 Total Bilirubin 19.7 H* AST 2093 H ALT 296 H Alkaline Phosphatase 688 H Total Protein 5.8 Albumin 2.5 L Globulin 3.3 Albumin/Globulin Ratio 0.8 L Venous Blood Potassium Stool Occult Blood Vancomycin Trough Blood Type Antibody Screen Crossmatch BBK History Checked 11/19/16 11/19/16 11/19/16 10:05 11:07 13:43 WBC RBC Hgb Hct MCV MCH MCHC RDW Plt Count MPV Baso % (Auto) Baso # Corrected WBC (Man) Neutrophils % (Manual) Band Neutrophils % Lymphocytes % (Manual) Monocytes % (Manual) Metamyelocytes % Myelocytes % Nucleated RBC % Smudge Cells Platelet Evaluation Polychromasia Hypochromasia Poikilocytosis (manual Anisocytosis (manual) Spherocytes Sickle Cells Tear Drop Cells Ovalocytes Hemoglobinopathy Red Blood Count Hemoglobinopathy Hct Hemoglobinopathy Hgb Hemoglobinopathy MCV Hemoglobinopathy MCH Hemoglobinopathy RDW PT INR APTT pCO2 pO2 41 HCO3 ABG pH ABG Total CO2 ABG O2 Saturation ABG O2 Content ABG Base Excess ABG Hemoglobin ABG Carboxyhemoglobin POC ABG HHb (Measured) ABG Methemoglobin ABG O2 Capacity VBG pH 7.19 L* VBG pCO2 49.0 VBG HCO3 18.7 L VBG Total CO2 20.2 L VBG O2 Sat (Calc) 75.1 H VBG Base Excess -9.6 L VBG Potassium 4.6 Hgb O2 Saturation Sodium 131.0 L Chloride 96.0 L Glucose 83 Lactate 12.1 H* FiO2 21.0 Potassium Carbon Dioxide Anion Gap BUN Creatinine Est GFR ( Amer) Est GFR (Non-Af Amer) POC Glucose (mg/dL) 89 Random Glucose Calcium Phosphorus Magnesium Total Bilirubin AST ALT Alkaline Phosphatase Total Protein Albumin Globulin Albumin/Globulin Ratio Venous Blood Potassium 4.6 Stool Occult Blood Vancomycin Trough Blood Type B POSITIVE Antibody Screen Negative Crossmatch See Detail BBK History Checked Patient has bt 11/19/16 15:44 WBC RBC Hgb Hct MCV MCH MCHC RDW Plt Count MPV Baso % (Auto) Baso # Corrected WBC (Man) Neutrophils % (Manual) Band Neutrophils % Lymphocytes % (Manual) Monocytes % (Manual) Metamyelocytes % Myelocytes % Nucleated RBC % Smudge Cells Platelet Evaluation Polychromasia Hypochromasia Poikilocytosis (manual Anisocytosis (manual) Spherocytes Sickle Cells Tear Drop Cells Ovalocytes Hemoglobinopathy Red Blood Count Hemoglobinopathy Hct Hemoglobinopathy Hgb Hemoglobinopathy MCV Hemoglobinopathy MCH Hemoglobinopathy RDW PT INR APTT pCO2 pO2 HCO3 ABG pH ABG Total CO2 ABG O2 Saturation ABG O2 Content ABG Base Excess ABG Hemoglobin ABG Carboxyhemoglobin POC ABG HHb (Measured) ABG Methemoglobin ABG O2 Capacity VBG pH VBG pCO2 VBG HCO3 VBG Total CO2 VBG O2 Sat (Calc) VBG Base Excess VBG Potassium Hgb O2 Saturation Sodium Chloride Glucose Lactate FiO2 Potassium Carbon Dioxide Anion Gap BUN Creatinine Est GFR ( Amer) Est GFR (Non-Af Amer) POC Glucose (mg/dL) Random Glucose Calcium Phosphorus Magnesium Total Bilirubin AST ALT Alkaline Phosphatase Total Protein Albumin Globulin Albumin/Globulin Ratio Venous Blood Potassium Stool Occult Blood Positive H Vancomycin Trough Blood Type Antibody Screen Crossmatch BBK History Checked Assessment & Plan - Assessment and Plan (Free Text) Assessment: 36yo F with multi-organ failure secondary to sickle cell vasoocclusive disease. Surgery reconsulted for colitis. - CT noted with evidence of ANASARCA, ascites, hepatomegaly. Thickened colon noted. Suspect colitis, however, likely edema. - Leukocytosis noted - Liver failure. Worsening LFTs - coagulopathy - Upper GI bleed likely secondary to OG tube trauma - Do not replace gastric tube - f/u GI recs - Abx as per ID - Check stool C.Diff - Address coagulopathy - Continue to medically maximize - Patient is not a surgical candidate at this time - Prognosis poor Further recs as per Dr. Prateek Moya PGY1 surgery pager: [phone]
--- NOTE | 2016-11-19 20:03 | CP.PCM.PN ---
<GriffinLiu johnson - Last Filed: 11/19/16 20:39> Subjective - Date & Time of Evaluation Date of Evaluation: 11/19/16 Time of Evaluation: 09:30 - Subjective Subjective: Medicine Progress note. Dr. Green Pt seen and examined at bedside. Patient continues to be on the vent. Sedated. On pressors, NE @15mcg. Minimally responsive to tactile stimuli. NGT placed by ICU team, with dark red blood noted. Plan for bedside EGD. Diaz with darker urine output. Objective - Vital Signs/Intake and Output Vital Signs (last 24 hours): Temp Pulse Resp BP Pulse Ox 98.2 F 117 H 20 100/0 L 98 11/19/16 18:26 11/19/16 18:26 11/19/16 18:26 11/19/16 18:26 11/19/16 11:41 Intake and Output: 11/19/16 11/20/16 18:59 06:59 Intake Total 0 375 Balance 0 375 - Medications Medications: Current Medications Albuterol/Ipratropium (Duoneb 3 Mg/0.5 Mg (3 Ml) Ud) 3 ml IH [id number] [facility] Last Admin: 11/19/16 19:45 Dose: 3 ml Budesonide (Pulmicort Respules) 0.5 mg IH [id number] [facility] Last Admin: 11/19/16 19:45 Dose: 0.5 mg Ergocalciferol (Drisdol 50,000 Intl Units Cap) 1 cap PO QWK [facility] Last Admin: 11/19/16 14:47 Dose: Not Given Folic Acid (Folic Acid) 1 mg PO DAILY [facility] Last Admin: 11/19/16 14:47 Dose: Not Given Furosemide (Lasix) 40 mg IVP DAILY [facility] Last Admin: 11/17/16 09:00 Dose: 40 mg Heparin Sodium (Porcine) (Heparin) 5,000 units SC Q12 [facility] PRN Reason: Protocol Last Admin: 11/16/16 21:44 Dose: Not Given Hydrocortisone Sodium Succinate (Solu-Cortef) 50 mg IVP Q8 [facility] Last Admin: 11/19/16 14:57 Dose: 50 mg Hydromorphone HCl (Dilaudid) 1 mg IVP Q3H PRN PRN Reason: Pain, severe (8-10) Last Admin: 11/18/16 13:12 Dose: 1 mg Hydroxyurea (Hydrea) 500 mg PO DAILY [facility] Last Admin: 11/19/16 14:48 Dose: Not Given Vancomycin HCl (Vancomycin 1gm) 1 gm in 250 mls @ 167 mls/hr IVPB DAILY [facility] PRN Reason: Protocol Last Admin: 11/19/16 14:54 Dose: 167 mls/hr Cefepime HCl (Maxipime 1gm) 1 gm in 100 mls @ 100 mls/hr IVPB Q24H [facility] PRN Reason: Protocol Last Admin: 11/19/16 14:49 Dose: 100 mls/hr Dextrose (Dextrose 10% In Water) 500 mls @ 20 mls/hr IV .Q24H [facility] Last Admin: 11/18/16 19:44 Dose: 20 mls/hr Sodium Bicarbonate 150 meq/ (Dextrose) 1,150 mls @ 125 mls/hr IV .Q9H12M [facility] Last Admin: 11/17/16 18:00 Dose: 125 mls/hr Propofol (Diprivan) 1,000 mg in 100 mls @ 2.259 mls/hr IV .Q24H PRN; Protocol; 5 MCG/KG/MIN PRN Reason: TITRATE PER MD ORDER Last Titration: 11/19/16 02:31 Dose: 30 mcg/kg/min, 13.553 mls/hr NOREPINEPHRINE BIT/0.9 % NACL (Levophed 4 Mg/ 250 Ml Ns Premixed) 4 mg in 250 mls @ 15 mls/hr IV .[id number] PRN; Protocol; 4 MCG/MIN PRN Reason: TITRATE PER MD ORDER Last Admin: 11/19/16 07:26 Dose: 15 mcg/min, 56.25 mls/hr Vasopressin 20 units/ Dextrose 101 mls @ 12.12 mls/hr IV .Q8H20M [facility]; 0.04 U/ MIN PRN Reason: Protocol Last Admin: 11/19/16 08:00 Dose: 12.12 mls/hr Metronidazole (Flagyl) 500 mg in 100 mls @ 100 mls/hr IVPB Q8 [facility] PRN Reason: Protocol Piperacillin Sod/Tazobactam Sod (Zosyn 2.25 Gm In 0.9% 100 Ml) 2.25 gm in 100 mls @ 100 mls/hr IVPB Q6 [facility] PRN Reason: Protocol Stop: 11/20/16 06:59 Lactic Acid (Lac-Hydrin 12% Cream (140 G)) 0 ea TOP DAILY PRN PRN Reason: Wound Lactulose (Generlac) 200 gm [place] Q6 [facility] Stop: 11/24/16 12:01 Last Admin: 11/19/16 12:30 Dose: 200 gm Midazolam HCl (Versed Inj) 1 mg IVP Q3H PRN PRN Reason: sedation Multivitamins/Minerals (Therapeutic-M Tab) 1 tab PO DAILY [facility] Last Admin: 11/19/16 14:53 Dose: Not Given Non-Formulary Medication (Mometasone [Asmanex Twisthaler 110 Mcg]) 100 mcg IH BID [facility] Last Admin: 11/15/16 21:20 Dose: Not Given Pantoprazole Sodium (Protonix Inj) 40 mg IVP Q12 [facility] Rifaximin (Xifaxan) 550 mg PO BID [facility] PRN Reason: Protocol Last Admin: 11/19/16 14:57 Dose: Not Given - Labs Labs: 11/19/16 10:00 11/19/16 10:00 PT 21.3 Seconds (9.9-11.8) H 11/19/16 10:00 INR 1.97 (0.93-1.08) H 11/19/16 10:00 APTT 83.0 Seconds (23.7-30.8) H* 11/19/16 10:00 - Constitutional Appears: Chronically Ill - Head Exam Head Exam: NORMOCEPHALIC Additional comments: Intubated and sedated. NG tube in place. - Eye Exam Eye Exam: Scleral icterus Additional comments: no spontaneous eye movement noted. - ENT Exam Additional comments: dried blood noted at the mouth. Intubated. - Respiratory Exam Respiratory Exam: Rhonchi (Rhonchi present at all haider. ), Wheezes - Cardiovascular Exam Cardiovascular Exam: RRR. absent: JVD - GI/Abdominal Exam GI & Abdominal Exam: Firm (improved firmness compared to yesterday. ). absent: Distended, Guarding, Rigid, Tenderness - Exam Additional comments: Diaz in place. Dark colored urine output noted - Extremities Exam Extremities Exam: Pedal Edema. absent: Calf Tenderness Additional comments: left groin HD access noted - Neurological Exam Additional comments: Intubated and sedated - Skin Skin Exam: Warm Assessment and Plan - Assessment and Plan (Free Text) Assessment: 36yo F with PMHx including Sickle cell disease, Bipolar disorder, Cerebral palsy , Asthma, CHF here for RUQ abd pain. Hospital course complicated by thrombocytopenia, coagulopathy. Found to have MELITON and apparent Shock liver 1. Likely Vaso-occlusive crisis secondary to sickle cell disease continue to monitor will transfuse if Hb <7 Hydroxyurea Pain management Heme following Abd US - mild ascites. Abd Xray - no signs of obstruction 2. Liver disease ICU team discussed case with [facility]: not a candidate for transfer for liver transplant Abd US - patent portal vein. Transaminitis coagulopathy noted Thrombocytopenia noted. Transfuse prn Hyperbilirubinemia improving GI following Plans for liver transplant once medically stable to transfer to [facility] ceruloplasmin wnl lipase wnl afp wnl 3. Upper GI bleed noted bloody output from NGT. Bedside EGD by GI performed area of bleeding cauterized and epi injected continue to monitor octreotide drip protonix 40 q12 4. MELITON Nephro following no further plans for dialysis for now will continue to follow clinically 5. CHF CXR with some pulmonary congestion EF - 39.7% in June 2016 Cardiology following 6. Respiratory failure intubated on vent sedated continue to monitor breathing treatments ventilatory management as per ICU 7. Leukocytosis worsening Coag neg in Blood Cxs - likely contaminate Urine Cxs negative ID following Continue IV Abx Send stool for cdiff 7. Electrolyte abnormalities monitor and replete as needed 8. Hx of Bipolar Disorder continue home meds Psych consulted 9. PPx Protonix SCDs Discussed case with Dr. Norma Moya PGY1 <Marco Green - Last Filed: 11/20/16 07:59> Objective - Vital Signs/Intake and Output Vital Signs (last 24 hours): Temp Pulse Resp BP Pulse Ox 97.6 F 101 H 20 124/84 98 11/20/16 04:00 11/20/16 04:55 11/19/16 18:26 11/20/16 04:45 11/19/16 11:41 Intake and Output: 11/20/16 11/20/16 06:59 18:59 Intake Total 538 Balance 538 - Medications Medications: Current Medications Albuterol/Ipratropium (Duoneb 3 Mg/0.5 Mg (3 Ml) Ud) 3 ml IH [id number] [facility] Last Admin: 11/20/16 07:14 Dose: 3 ml Budesonide (Pulmicort Respules) 0.5 mg IH [id number] [facility] Last Admin: 11/20/16 07:14 Dose: 0.5 mg Ergocalciferol (Drisdol 50,000 Intl Units Cap) 1 cap PO QWK [facility] Last Admin: 11/19/16 14:47 Dose: Not Given Folic Acid (Folic Acid) 1 mg PO DAILY [facility] Last Admin: 11/19/16 14:47 Dose: Not Given Furosemide (Lasix) 40 mg IVP DAILY [facility] Last Admin: 11/17/16 09:00 Dose: 40 mg Heparin Sodium (Porcine) (Heparin) 5,000 units SC Q12 [facility] PRN Reason: Protocol Last Admin: 11/16/16 21:44 Dose: Not Given Hydrocortisone Sodium Succinate (Solu-Cortef) 50 mg IVP Q8 [facility] Last Admin: 11/20/16 06:51 Dose: 50 mg Hydromorphone HCl (Dilaudid) 1 mg IVP Q3H PRN PRN Reason: Pain, severe (8-10) Last Admin: 11/18/16 13:12 Dose: 1 mg Hydroxyurea (Hydrea) 500 mg PO DAILY [facility] Last Admin: 11/19/16 14:48 Dose: Not Given Vancomycin HCl (Vancomycin 1gm) 1 gm in 250 mls @ 167 mls/hr IVPB DAILY [facility] PRN Reason: Protocol Last Admin: 11/19/16 14:54 Dose: 167 mls/hr Cefepime HCl (Maxipime 1gm) 1 gm in 100 mls @ 100 mls/hr IVPB Q24H [facility] PRN Reason: Protocol Last Admin: 11/19/16 14:49 Dose: 100 mls/hr Dextrose (Dextrose 10% In Water) 500 mls @ 20 mls/hr IV .Q24H [facility] Last Admin: 11/19/16 19:00 Dose: 20 mls/hr Propofol (Diprivan) 1,000 mg in 100 mls @ 2.259 mls/hr IV .Q24H PRN; Protocol; 5 MCG/KG/MIN PRN Reason: TITRATE PER MD ORDER Last Admin: 11/20/16 03:59 Dose: 50 mcg/kg/min, 22.589 mls/hr NOREPINEPHRINE BIT/0.9 % NACL (Levophed 4 Mg/ 250 Ml Ns Premixed) 4 mg in 250 mls @ 15 mls/hr IV .[id number] PRN; Protocol; 4 MCG/MIN PRN Reason: TITRATE PER MD ORDER Last Titration: 11/20/16 03:35 Dose: 5 mcg/min, 18.75 mls/hr Vasopressin 20 units/ Dextrose 101 mls @ 12.12 mls/hr IV .Q8H20M [facility]; 0.04 U/ MIN PRN Reason: Protocol Last Admin: 11/19/16 22:39 Dose: 12.12 mls/hr Metronidazole (Flagyl) 500 mg in 100 mls @ 100 mls/hr IVPB Q8 [facility] PRN Reason: Protocol Last Admin: 11/20/16 06:45 Dose: 100 mls/hr Sodium Bicarbonate 150 meq/ (Dextrose) 1,150 mls @ 125 mls/hr IV .Q9H12M [facility] Last Admin: 11/19/16 23:45 Dose: 125 mls/hr Dobutamine HCl/Dextrose (Dobutamine/Dextrose 5% 500mg/250ml) 500 mg in 250 mls @ 5.647 mls/hr IV .Q24H PRN; Protocol; 2.5 MCG/KG/MIN PRN Reason: TITRATE PER PROTOCOL Lactic Acid (Lac-Hydrin 12% Cream (140 G)) 0 ea TOP DAILY PRN PRN Reason: Wound Lactulose (Generlac) 200 gm [place] Q6 [facility] Stop: 11/24/16 12:01 Last Admin: 11/20/16 06:49 Dose: 200 gm Midazolam HCl (Versed Inj) 1 mg IVP Q3H PRN PRN Reason: sedation Multivitamins/Minerals (Therapeutic-M Tab) 1 tab PO DAILY [facility] Last Admin: 11/19/16 14:53 Dose: Not Given Non-Formulary Medication (Mometasone [Asmanex Twisthaler 110 Mcg]) 100 mcg IH BID [facility] Last Admin: 11/15/16 21:20 Dose: Not Given Pantoprazole Sodium (Protonix Inj) 40 mg IVP Q12 [facility] Last Admin: 11/19/16 21:34 Dose: 40 mg Rifaximin (Xifaxan) 550 mg PO BID [facility] PRN Reason: Protocol Last Admin: 11/19/16 14:57 Dose: Not Given - Labs Labs: 11/20/16 06:00 11/20/16 06:00 PT 22.7 Seconds (9.9-11.8) H 11/20/16 06:00 INR 2.05 (0.93-1.08) H 11/20/16 06:00 APTT 83.0 Seconds (23.7-30.8) H* 11/19/16 10:00 Attending/Attestation - Attestation I have personally seen and examined this patient.: Yes I have fully participated in the care of the patient.: Yes I have reviewed all pertinent clinical information, including history, physical exam and plan: Yes Notes (Text): 11/19/16 36 year old female with past medical history of sickle cell disease/anemia, bipolar disorder, CHF and asthma who presented with sickle cell crisis. Hospital course complicated with respiratory distress s/p intubation, shock on vasopressor support and now GIB started on protonix and octeotride. GI is following for severe transaminitis and GIB as above. Plan is for EGD today. Discussions were made regarding possible transfer to [facility] or [facility]. Plasmapheresis and red cell exchange as per hematology and nephrology. Continue with antibiotics as per ID for UTI. BCx x1 + for coag neg staph, possibly contaminate as repeat cultures are negative. Prognosis is guarded. Marco Green MD Hospitalist.
[2016-11-19 20:17] LABS: VENOUS BLOOD PH 7.27 (7.32-7.43)
--- NOTE | 2016-11-19 21:01 | OP ---
PROCEDURE DATE: PREOPERATIVE DIAGNOSIS: Multisystem organ failure. POSTOPERATIVE DIAGNOSIS: Multisystem organ failure. OPERATION PERFORMED: Attempted left internal jugular central line and the left femoral dialysis catheter. DESCRIPTION OF PROCEDURE: In the floor ICU bed 1, patient was placed in Trendelenburg after the consent was obtained, time-out taken. The ultrasound was sterilely prepped and identified the patent left internal jugular. The resident attempted successfully to gain access; however, he could not thread the guidewire twice. I accessed the vein with the ultrasound machine and by anatomical landmarks. Both times, the guidewire would get to the midline, but not cross it. Guidewire was attempted, therefore we abandoned this procedure. Pressure dressing was applied. Later, the left femoral vein was access using sterile gloves, prepped and the usual time-out. The Doppler was used to find the artery. The ultrasound was unsuccessful in identifying the vein because of the tremendous edema. Going medial to the marked artery, the needle found the vein. It was accessed with the guidewire. It was dilated and the triple lumen dialysis catheter was placed. Sutured in place. X-ray show this to be in good position. The catheter was filled with saline and capped, sutured in place. A light dressing was applied. Corona Chandra MD
[2016-11-19] MEDS: metroNIDAZOLE IV 500 mg/100 ml 500 MG/100 ML BAG IVPB SCH (21:25)
--- NOTE | 2016-11-19 22:02 | CP.PCM.PN ---
Subjective - Date & Time of Evaluation Date of Evaluation: 11/19/16 Time of Evaluation: 18:00 - Subjective Subjective: Vented, on pressors s/p EGD today s/p 1U PRBC and 2U FFP Objective - Vital Signs/Intake and Output Vital Signs (last 24 hours): Temp Pulse Resp BP Pulse Ox 98.2 F 114 H 20 100/0 L 98 11/19/16 18:26 11/19/16 20:19 11/19/16 18:26 11/19/16 18:26 11/19/16 11:41 Intake and Output: 11/19/16 11/20/16 18:59 06:59 Intake Total 1655 375 Output Total 250 Balance 1405 375 - Medications Medications: Current Medications Albuterol/Ipratropium (Duoneb 3 Mg/0.5 Mg (3 Ml) Ud) 3 ml IH [id number] [facility] Last Admin: 11/19/16 19:45 Dose: 3 ml Budesonide (Pulmicort Respules) 0.5 mg IH [id number] [facility] Last Admin: 11/19/16 19:45 Dose: 0.5 mg Ergocalciferol (Drisdol 50,000 Intl Units Cap) 1 cap PO QWK [facility] Last Admin: 11/19/16 14:47 Dose: Not Given Folic Acid (Folic Acid) 1 mg PO DAILY [facility] Last Admin: 11/19/16 14:47 Dose: Not Given Furosemide (Lasix) 40 mg IVP DAILY [facility] Last Admin: 11/17/16 09:00 Dose: 40 mg Heparin Sodium (Porcine) (Heparin) 5,000 units SC Q12 [facility] PRN Reason: Protocol Last Admin: 11/16/16 21:44 Dose: Not Given Hydrocortisone Sodium Succinate (Solu-Cortef) 50 mg IVP Q8 [facility] Last Admin: 11/19/16 21:39 Dose: 50 mg Hydromorphone HCl (Dilaudid) 1 mg IVP Q3H PRN PRN Reason: Pain, severe (8-10) Last Admin: 11/18/16 13:12 Dose: 1 mg Hydroxyurea (Hydrea) 500 mg PO DAILY [facility] Last Admin: 11/19/16 14:48 Dose: Not Given Vancomycin HCl (Vancomycin 1gm) 1 gm in 250 mls @ 167 mls/hr IVPB DAILY [facility] PRN Reason: Protocol Last Admin: 11/19/16 14:54 Dose: 167 mls/hr Cefepime HCl (Maxipime 1gm) 1 gm in 100 mls @ 100 mls/hr IVPB Q24H [facility] PRN Reason: Protocol Last Admin: 11/19/16 14:49 Dose: 100 mls/hr Dextrose (Dextrose 10% In Water) 500 mls @ 20 mls/hr IV .Q24H [facility] Last Admin: 11/19/16 19:00 Dose: 20 mls/hr Sodium Bicarbonate 150 meq/ (Dextrose) 1,150 mls @ 125 mls/hr IV .Q9H12M [facility] Last Admin: 11/17/16 18:00 Dose: 125 mls/hr Propofol (Diprivan) 1,000 mg in 100 mls @ 2.259 mls/hr IV .Q24H PRN; Protocol; 5 MCG/KG/MIN PRN Reason: TITRATE PER MD ORDER Last Titration: 11/19/16 02:31 Dose: 30 mcg/kg/min, 13.553 mls/hr NOREPINEPHRINE BIT/0.9 % NACL (Levophed 4 Mg/ 250 Ml Ns Premixed) 4 mg in 250 mls @ 15 mls/hr IV .[id number] PRN; Protocol; 4 MCG/MIN PRN Reason: TITRATE PER MD ORDER Last Admin: 11/19/16 21:27 Dose: 15 mcg/min, 56.25 mls/hr Vasopressin 20 units/ Dextrose 101 mls @ 12.12 mls/hr IV .Q8H20M [facility]; 0.04 U/ MIN PRN Reason: Protocol Last Admin: 11/19/16 08:00 Dose: 12.12 mls/hr Metronidazole (Flagyl) 500 mg in 100 mls @ 100 mls/hr IVPB Q8 [facility] PRN Reason: Protocol Last Admin: 11/19/16 21:25 Dose: 100 mls/hr Piperacillin Sod/Tazobactam Sod (Zosyn 2.25 Gm In 0.9% 100 Ml) 2.25 gm in 100 mls @ 100 mls/hr IVPB Q6 [facility] PRN Reason: Protocol Stop: 11/20/16 06:59 Lactic Acid (Lac-Hydrin 12% Cream (140 G)) 0 ea TOP DAILY PRN PRN Reason: Wound Lactulose (Generlac) 200 gm [place] Q6 [facility] Stop: 11/24/16 12:01 Last Admin: 11/19/16 12:30 Dose: 200 gm Midazolam HCl (Versed Inj) 1 mg IVP Q3H PRN PRN Reason: sedation Multivitamins/Minerals (Therapeutic-M Tab) 1 tab PO DAILY [facility] Last Admin: 11/19/16 14:53 Dose: Not Given Non-Formulary Medication (Mometasone [Asmanex Twisthaler 110 Mcg]) 100 mcg IH BID [facility] Last Admin: 11/15/16 21:20 Dose: Not Given Pantoprazole Sodium (Protonix Inj) 40 mg IVP Q12 [facility] Last Admin: 11/19/16 21:34 Dose: 40 mg Rifaximin (Xifaxan) 550 mg PO BID [facility] PRN Reason: Protocol Last Admin: 11/19/16 14:57 Dose: Not Given - Labs Labs: 11/19/16 10:00 11/19/16 10:00 PT 21.3 Seconds (9.9-11.8) H 11/19/16 10:00 INR 1.97 (0.93-1.08) H 11/19/16 10:00 APTT 83.0 Seconds (23.7-30.8) H* 11/19/16 10:00 - Head Exam Head Exam: ATRAUMATIC - Eye Exam Eye Exam: Normal appearance - ENT Exam ENT Exam: Mucous Membranes Dry Additional comments: oral mucosal bleeding noted - Respiratory Exam Respiratory Exam: Decreased Breath Sounds - Cardiovascular Exam Cardiovascular Exam: +S1, +S2 - GI/Abdominal Exam GI & Abdominal Exam: Rigid - Extremities Exam Extremities Exam: Pedal Edema Assessment and Plan (1) Coagulopathy Assessment & Plan: liver disease s/p FFP rule out DIC; fibrinogen sent to receive 2U cryopercipitate given bleeding Status: Acute (2) Thrombocytopenia Assessment & Plan: rule out DIC for cryopercipitate transfusion Status: Acute (3) Sickle cell pain crisis Assessment & Plan: with multi organ failure s/p apheresis red cell exchange repeat hgb S% will consider repeat red cell exchange to maintain hgb S< 30% Status: Acute (4) Iron overload due to repeated red blood cell transfusions Assessment & Plan: on chronic chelation liver transplant centers have declined transfer Status: Acute (5) Leukocytosis Assessment & Plan: on antibiotics Status: Acute
--- NOTE | 2016-11-19 22:13 | PN ---
DATE: SUBJECTIVE: The patient underwent an endoscopy at the bedside. The findings are red blood was found in the upper third of the esophagus and there was visible vessel and mucosal trauma and oozing of blood in the upper third of the esophagus approximately 20 cm from the incisors. This restrictive etiology is esophagogastric tube trauma. Area was successfully injected with epinephrine for hemostasis. There is no evidence of esophageal varices. was found in the gastric fundus. second part of jejunum and third part of the jejunum were normal. No endoscopic evidence of bleeding in the entire examined jejunum and recommendation was to observe clinical course and discontinue vasopressin and to continue transfusion. The process of transferring the patient to [facility] is being held because of the information obtained that liver transplant program is on suspension at [facility]. PHYSICAL EXAMINATION: VITAL SIGNS: Blood pressure 110/70, heart rate 110, temperature 98. HEENT: Pale conjunctivae. CHEST: Bilateral rhonchi. EXTREMITIES: 2+ pitting edema. LABORATORY DATA: SMA-7: Sodium 132, potassium 4.2, chloride 92, CO2 24, glucose 93, BUN 35, creatinine 1.8. Today's bilirubin is 19.7. AST and ALT are 93 and 296 respectively. Alkaline phosphatase is elevated at 688. Hemoglobin and hematocrit 7.3 and 19.4 respectively, white count 36.4, and platelet count 93,000. ASSESSMENT: 1. Respiratory failure. 2. Liver failure. 3. Underlying sepsis. 4. Anemia and thrombocytopenia. 5. Coagulopathy. Today's INR is 1.97 and PTT is 83. 6. Associated bleeding, most likely traumatic. 7. Sickle cell disease. RECOMMENDATIONS: Continue current IV fluids and IV Dilaudid p.r.n. Continue current pressors including Levophed and vasopressin. Overall prognosis is grave. Pedro Luis Deshpande MD
[2016-11-19 23:45] LABS: VENOUS BLOOD PH 7.27 (7.32-7.43)
[2016-11-19] MEDS: Sodium Bicarbonate 8.4% 150 MEQ in Dextrose 5% In Water 1,000 ML IV SCH (23:45)
[2016-11-19] MEDS: Propofol 10 mg/ml 1,000 MG/100 ML VIAL IV PRN (23:45)
[2016-11-20] MEDS: Lactulose 10 gm/15 ml (Rectal Use) PR SCH ×6 (01:00→18:55)
[2016-11-20] MEDS: Piperacillin/Tazobact 2.25gm 2.25 GM/100 ML BAG IVPB SCH ×2 (01:30→06:53)
[2016-11-20] MEDS: Albuterol-Ipratrop 3 mg / 0.5 (3 ml) UD IH SCH ×4 (02:40→20:10)
[2016-11-20] MEDS: metroNIDAZOLE IV 500 mg/100 ml 500 MG/100 ML BAG IVPB SCH ×4 (02:42→21:54)
[2016-11-20] MEDS: NOREPINEPHRINE BIT/0.9 % NACL 4 MG/250 ML BAG IV PRN (02:43)
[2016-11-20] MEDS: Propofol 10 mg/ml 1,000 MG/100 ML VIAL IV PRN (03:59)
--- NOTE | 2016-11-20 07:03 | CP.PCM.PN ---
<SolitarioStephanie - Last Filed: 11/20/16 13:12> Subjective - Date & Time of Evaluation Date of Evaluation: 11/20/16 Time of Evaluation: 06:56 - Subjective Subjective: Gastroenterology Fellow/PGY5 Progress Note Patient remains intubated on sedation and vasopressor support. Nursing notes MAP improved overnight with Levophed titrated off and currently remains on vasopressin. Lactulose administered with moderate amounts of clots present overnight. Unable to complete a 12-point review of systems on ventilator support. Objective - Vital Signs/Intake and Output Vital Signs (last 24 hours): Temp Pulse Resp BP Pulse Ox 97.6 F 101 H 20 124/84 98 11/20/16 04:00 11/20/16 04:55 11/19/16 18:26 11/20/16 04:45 11/19/16 11:41 Intake and Output: 11/19/16 11/20/16 18:59 06:59 Intake Total 1655 538 Output Total 250 Balance 1405 538 - Medications Medications: Current Medications Albuterol/Ipratropium (Duoneb 3 Mg/0.5 Mg (3 Ml) Ud) 3 ml IH [id number] [facility] Last Admin: 11/20/16 02:40 Dose: 3 ml Budesonide (Pulmicort Respules) 0.5 mg IH [id number] [facility] Last Admin: 11/19/16 19:45 Dose: 0.5 mg Ergocalciferol (Drisdol 50,000 Intl Units Cap) 1 cap PO QWK [facility] Last Admin: 11/19/16 14:47 Dose: Not Given Folic Acid (Folic Acid) 1 mg PO DAILY [facility] Last Admin: 11/19/16 14:47 Dose: Not Given Furosemide (Lasix) 40 mg IVP DAILY [facility] Last Admin: 11/17/16 09:00 Dose: 40 mg Heparin Sodium (Porcine) (Heparin) 5,000 units SC Q12 [facility] PRN Reason: Protocol Last Admin: 11/16/16 21:44 Dose: Not Given Hydrocortisone Sodium Succinate (Solu-Cortef) 50 mg IVP Q8 [facility] Last Admin: 11/19/16 21:39 Dose: 50 mg Hydromorphone HCl (Dilaudid) 1 mg IVP Q3H PRN PRN Reason: Pain, severe (8-10) Last Admin: 11/18/16 13:12 Dose: 1 mg Hydroxyurea (Hydrea) 500 mg PO DAILY [facility] Last Admin: 11/19/16 14:48 Dose: Not Given Vancomycin HCl (Vancomycin 1gm) 1 gm in 250 mls @ 167 mls/hr IVPB DAILY [facility] PRN Reason: Protocol Last Admin: 11/19/16 14:54 Dose: 167 mls/hr Cefepime HCl (Maxipime 1gm) 1 gm in 100 mls @ 100 mls/hr IVPB Q24H [facility] PRN Reason: Protocol Last Admin: 11/19/16 14:49 Dose: 100 mls/hr Dextrose (Dextrose 10% In Water) 500 mls @ 20 mls/hr IV .Q24H [facility] Last Admin: 11/19/16 19:00 Dose: 20 mls/hr Propofol (Diprivan) 1,000 mg in 100 mls @ 2.259 mls/hr IV .Q24H PRN; Protocol; 5 MCG/KG/MIN PRN Reason: TITRATE PER MD ORDER Last Admin: 11/20/16 03:59 Dose: 50 mcg/kg/min, 22.589 mls/hr NOREPINEPHRINE BIT/0.9 % NACL (Levophed 4 Mg/ 250 Ml Ns Premixed) 4 mg in 250 mls @ 15 mls/hr IV .Q94Q34G PRN; Protocol; 4 MCG/MIN PRN Reason: TITRATE PER MD ORDER Last Titration: 11/20/16 03:35 Dose: 5 mcg/min, 18.75 mls/hr Vasopressin 20 units/ Dextrose 101 mls @ 12.12 mls/hr IV .Q8H20M [facility]; 0.04 U/ MIN PRN Reason: Protocol Last Admin: 11/19/16 22:39 Dose: 12.12 mls/hr Metronidazole (Flagyl) 500 mg in 100 mls @ 100 mls/hr IVPB Q8 [facility] PRN Reason: Protocol Last Admin: 11/20/16 02:42 Dose: Not Given Piperacillin Sod/Tazobactam Sod (Zosyn 2.25 Gm In 0.9% 100 Ml) 2.25 gm in 100 mls @ 100 mls/hr IVPB Q6 [facility] PRN Reason: Protocol Stop: 11/20/16 06:59 Last Admin: 11/20/16 01:30 Dose: 100 mls/hr Sodium Bicarbonate 150 meq/ (Dextrose) 1,150 mls @ 125 mls/hr IV .Q9H12M [facility] Last Admin: 11/19/16 23:45 Dose: 125 mls/hr Lactic Acid (Lac-Hydrin 12% Cream (140 G)) 0 ea TOP DAILY PRN PRN Reason: Wound Lactulose (Generlac) 200 gm GA Q6 [facility] Stop: 11/24/16 12:01 Last Admin: 11/20/16 01:00 Dose: 200 gm Midazolam HCl (Versed Inj) 1 mg IVP Q3H PRN PRN Reason: sedation Multivitamins/Minerals (Therapeutic-M Tab) 1 tab PO DAILY [facility] Last Admin: 11/19/16 14:53 Dose: Not Given Non-Formulary Medication (Mometasone [Asmanex Twisthaler 110 Mcg]) 100 mcg IH BID [facility] Last Admin: 11/15/16 21:20 Dose: Not Given Pantoprazole Sodium (Protonix Inj) 40 mg IVP Q12 [facility] Last Admin: 11/19/16 21:34 Dose: 40 mg Rifaximin (Xifaxan) 550 mg PO BID [facility] PRN Reason: Protocol Last Admin: 11/19/16 14:57 Dose: Not Given - Labs Labs: 11/19/16 10:00 11/19/16 10:00 PT 21.3 Seconds (9.9-11.8) H 11/19/16 10:00 INR 1.97 (0.93-1.08) H 11/19/16 10:00 APTT 83.0 Seconds (23.7-30.8) H* 11/19/16 10:00 - Constitutional Appears: Chronically Ill, Other - Head Exam Head Exam: ATRAUMATIC, NORMOCEPHALIC - Eye Exam Eye Exam: PERRL, Scleral icterus Pupil Exam: PERRL. absent: Miosis, Mydriatic - ENT Exam ENT Exam: Mucous Membranes Dry Additional comments: ETT in place, dried blood in oropharynx - Neck Exam Neck Exam: Normal Inspection - Respiratory Exam Respiratory Exam: Decreased Breath Sounds, Rhonchi. absent: Rales - Cardiovascular Exam Cardiovascular Exam: Tachycardia, +S1, +S2. absent: Gallop - GI/Abdominal Exam GI & Abdominal Exam: Distended, Firm, Tenderness, Hypoactive Bowel Sounds Additional comments: grimace present on palpation, hepatomegaly - Extremities Exam Additional comments: 3+ B/L LE pitting edema, B/L UE edema - Neurological Exam Additional comments: unable to assess on ventilator - Psychiatric Exam Additional comments: unable to assess on ventilator support - Skin Skin Exam: Dry, Intact Additional comments: right Port-a-cath site- C/D/I, left femoral hemodialysis cath site- with oozing- dressing in place Assessment and Plan - Assessment and Plan (Free Text) Assessment: 36 year old female with history of sCHF, EF 35-40% with Grade 3 diastolic dysfunction, Bipolar disorder, asthma, cerebral palsy, sickle cell disease, and cirrhosis presenting with abdominal pain, nausea, and vomiting. Active treatment of hypoxic VDRF in setting of hepatic/metabolic encephalopathy, shock on vasopressor support, Upper GI bleed 2/2 traumatic gastric tube placement POD1 (11/19) EGD showing upper 1/3 esophagus visible vessel with mucosal trauma/ active oozing s/p epinephrine injection/BiPolar cautery, acute liver failure 2/ 2 acute sickle cell intrahepatic cholestasis with resultant renal failure complicated by secondary hemochromatosis cirrhosis. Plan: >MELD 39 (11/19), today 33 >GI Bleed with coagulopathy- received FFP, pRBC, cryoprecipitate yesterday >continue PPI BID, recommend no placement of gastric tube for healing >monitor H/H >hepatic encephalopathy- continue Lactulose enemas, titrate to goal 2-3 BMs/ day >shock- multifactorial, on vasopressor support >nephrology managing renal failure >Hematology managing- exchange transfusions and plasmapheresis, pending Hb S >[facility] and [facility]- not transplant candidate, unstable critical status >ID managing- on broad spectrum antibiotic coverage >pending Cdiff >colitis- ischemic/infectious CT A/P- thickening of ascending/transverse/ descending colon - passing blood clots- suspicious for ischemic pathology given vaso- occlusive crisis >surgery managing- not surgical candidate >family discussion held by phone with mother yesterday in regards to GI bleed and liver failure with understanding of unstable critical clinical status precludes liver transplant as discussed with [facility] and [facility] >poor prognosis <Edwin Sanchez MD - Last Filed: 11/20/16 15:49> Objective - Vital Signs/Intake and Output Vital Signs (last 24 hours): Temp Pulse Resp BP Pulse Ox 97.9 F 97 H 15 105/87 99 11/20/16 12:00 11/20/16 15:16 11/20/16 07:51 11/20/16 15:15 11/20/16 13:00 Intake and Output: 11/20/16 11/20/16 06:59 18:59 Intake Total 2932 2 Output Total 500 Balance 2432 2 - Medications Medications: Current Medications Albuterol/Ipratropium (Duoneb 3 Mg/0.5 Mg (3 Ml) Ud) 3 ml IH [id number] [facility] Last Admin: 11/20/16 13:07 Dose: 3 ml Budesonide (Pulmicort Respules) 0.5 mg IH [id number] [facility] Last Admin: 11/20/16 07:14 Dose: 0.5 mg Ergocalciferol (Drisdol 50,000 Intl Units Cap) 1 cap PO QWK [facility] Last Admin: 11/19/16 14:47 Dose: Not Given Folic Acid (Folic Acid) 1 mg PO DAILY [facility] Last Admin: 11/20/16 09:28 Dose: Not Given Furosemide (Lasix) 40 mg IVP DAILY [facility] Last Admin: 11/17/16 09:00 Dose: 40 mg Heparin Sodium (Porcine) (Heparin) 5,000 units SC Q12 [facility] PRN Reason: Protocol Last Admin: 11/16/16 21:44 Dose: Not Given Heparin Sodium (Porcine) (Heparin) 5,000 units IVP ONCE ONE PRN Reason: Protocol Stop: 11/20/16 17:31 Heparin Sodium (Porcine) (Heparin) 5,000 units IVP ONCE ONE PRN Reason: Protocol Stop: 11/20/16 17:31 Hydrocortisone Sodium Succinate (Solu-Cortef) 50 mg IVP Q8 [facility] Last Admin: 11/20/16 14:51 Dose: 50 mg Hydromorphone HCl (Dilaudid) 1 mg IVP Q3H PRN PRN Reason: Pain, severe (8-10) Last Admin: 11/20/16 11:02 Dose: 1 mg Hydroxyurea (Hydrea) 500 mg PO DAILY [facility] Last Admin: 11/20/16 09:36 Dose: Not Given Vancomycin HCl (Vancomycin 1gm) 1 gm in 250 mls @ 167 mls/hr IVPB DAILY [facility] PRN Reason: Protocol Last Admin: 11/20/16 10:12 Dose: 167 mls/hr Cefepime HCl (Maxipime 1gm) 1 gm in 100 mls @ 100 mls/hr IVPB Q24H [facility] PRN Reason: Protocol Last Admin: 11/19/16 14:49 Dose: 100 mls/hr Dextrose (Dextrose 10% In Water) 500 mls @ 20 mls/hr IV .Q24H [facility] Last Admin: 11/19/16 19:00 Dose: 20 mls/hr Propofol (Diprivan) 1,000 mg in 100 mls @ 2.259 mls/hr IV .Q24H PRN; Protocol; 5 MCG/KG/MIN PRN Reason: TITRATE PER MD ORDER Last Admin: 11/20/16 03:59 Dose: 50 mcg/kg/min, 22.589 mls/hr NOREPINEPHRINE BIT/0.9 % NACL (Levophed 4 Mg/ 250 Ml Ns Premixed) 4 mg in 250 mls @ 15 mls/hr IV .[id number] PRN; Protocol; 4 MCG/MIN PRN Reason: TITRATE PER MD ORDER Last Titration: 11/20/16 15:30 Dose: 6 mcg/min, 22.5 mls/hr Vasopressin 20 units/ Dextrose 101 mls @ 12.12 mls/hr IV .Q8H20M [facility]; 0.04 U/ MIN PRN Reason: Protocol Last Admin: 11/19/16 22:39 Dose: 12.12 mls/hr Metronidazole (Flagyl) 500 mg in 100 mls @ 100 mls/hr IVPB Q8 [facility] PRN Reason: Protocol Last Admin: 11/20/16 06:45 Dose: 100 mls/hr Sodium Bicarbonate 150 meq/ (Dextrose) 1,150 mls @ 125 mls/hr IV .Q9H12M [facility] Last Admin: 11/20/16 10:10 Dose: 125 mls/hr Dobutamine HCl/Dextrose (Dobutamine/Dextrose 5% 500mg/250ml) 500 mg in 250 mls @ 5.647 mls/hr IV .Q24H PRN; Protocol; 2.5 MCG/KG/MIN PRN Reason: TITRATE PER PROTOCOL Last Admin: 11/20/16 07:57 Dose: 5.647 mls/hr Albumin Human (Albumin Human 5% (12.5 Gm/250 Ml)) 250 mls @ 3 mls/min IVPB ONCE ONE Stop: 11/20/16 16:04 Lactic Acid (Lac-Hydrin 12% Cream (140 G)) 0 ea TOP DAILY PRN PRN Reason: Wound Lactulose (Generlac) 200 gm [place] Q6 [facility] Stop: 11/24/16 12:01 Last Admin: 11/20/16 06:49 Dose: 200 gm Midazolam HCl (Versed Inj) 1 mg IVP Q3H PRN PRN Reason: sedation Multivitamins/Minerals (Therapeutic-M Tab) 1 tab PO DAILY [facility] Last Admin: 11/20/16 09:36 Dose: Not Given Non-Formulary Medication (Mometasone [Asmanex Twisthaler 110 Mcg]) 100 mcg IH BID [facility] Last Admin: 11/15/16 21:20 Dose: Not Given Pantoprazole Sodium (Protonix Inj) 40 mg IVP Q12 [facility] Last Admin: 11/20/16 09:35 Dose: 40 mg Rifaximin (Xifaxan) 550 mg PO BID [facility]E PRN Reason: Protocol Last Admin: 11/19/16 14:57 Dose: Not Given - Labs Labs: 11/20/16 06:00 11/20/16 08:28 PT 22.7 Seconds (9.9-11.8) H 11/20/16 06:00 INR 2.05 (0.93-1.08) H 11/20/16 06:00 APTT 83.0 Seconds (23.7-30.8) H* 11/19/16 10:00 Attending/Attestation - Attestation I have personally seen and examined this patient.: Yes I have fully participated in the care of the patient.: Yes I have reviewed all pertinent clinical information, including history, physical exam and plan: Yes Notes (Text): 11/20/16 15:44 patient seen on GI rounds this am. 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 Had discussion with sister in law today regarding liver/ kidney transplant candidacy and transfer options. Explained that both academic centers had not accepted her as a transfer or transplant evaluation candidate. Still on two pressors today with HD in progress. No s/s of GI bleeding today. s/p urgent EGD showing mucosal trauma in the pharynx and upper esophagus with oozing and visible vessel s/p epi / bipolar -would not replace OGT at this time. PPI bid. Correct coagulopathy. Poor prognosis
[2016-11-20 07:06] LABS: BASO # 0.14 K/mm3 (0.0-2.0); BASO % 0.4 % (0.0-3.0); MEAN CELL VOLUME 86.2 fl (80.0-105.0); MEAN CORPUSCULAR HGB CONC 39.4 g/dl (31.0-37.0); MEAN PLATELET VOLUME 11.1 fl (7.0-11.0); PLATELET COUNT 62 10^3/uL (120.0-450.0); RED CELL DISTRIBUTION WIDTH 17.1 % (11.5-14.5)
[2016-11-20] MEDS: Budesonide 0.5 mg/2 ml Inhal Susp UD IH SCH ×2 (07:14→20:10)
[2016-11-20 07:23] LABS: ALB/GLOB RATIO 0.9 (1.1-1.8); MAGNESIUM 1.8 mg/dL (1.7-2.2); PHOSPHOROUS 7.1 mg/dL (2.5-4.5); POTASSIUM 3.7 mmol/L (3.6-5.0); TOTAL PROTEIN 5.9 g/dL (5.8-8.3)
[2016-11-20 07:29] LABS: HEMATOCRIT 17.5 % (36.0-48.0)
[2016-11-20 07:46] LABS: CALCIUM 6.9 mg/dL (8.4-10.5)
[2016-11-20 07:47] LABS: BILIRUBIN,TOTAL 21.2 mg/dL (0.2-1.3)
[2016-11-20 07:50] LABS: INR 2.05 (0.93-1.08)
[2016-11-20 07:53] LABS: ABG MECHANICAL RATE 15; ARTERIAL BLOOD GAS HCO3 21.7 mmol/L (21-28); ATERIAL BLOOD GAS PEEP 5
[2016-11-20] MEDS: DOBUTamine 500mg/250ml D5W 500 MG/250 ML BAG IV PRN (07:57)
--- NOTE | 2016-11-20 08:14 | CP.PCM.PN ---
Subjective - Date & Time of Evaluation Date of Evaluation: 11/20/16 Time of Evaluation: 07:20 Objective - Vital Signs/Intake and Output Vital Signs (last 24 hours): Temp Pulse Resp BP Pulse Ox 97.6 F 93 H 20 103/68 98 11/20/16 04:00 11/20/16 07:57 11/19/16 18:26 11/20/16 07:57 11/19/16 11:41 Intake and Output: 11/20/16 11/20/16 06:59 18:59 Intake Total 538 Balance 538 - Medications Medications: Current Medications Albuterol/Ipratropium (Duoneb 3 Mg/0.5 Mg (3 Ml) Ud) 3 ml IH [id number] [facility] Last Admin: 11/20/16 07:14 Dose: 3 ml Budesonide (Pulmicort Respules) 0.5 mg IH [id number] [facility] Last Admin: 11/20/16 07:14 Dose: 0.5 mg Ergocalciferol (Drisdol 50,000 Intl Units Cap) 1 cap PO QWK [facility] Last Admin: 11/19/16 14:47 Dose: Not Given Folic Acid (Folic Acid) 1 mg PO DAILY [facility] Last Admin: 11/19/16 14:47 Dose: Not Given Furosemide (Lasix) 40 mg IVP DAILY [facility] Last Admin: 11/17/16 09:00 Dose: 40 mg Heparin Sodium (Porcine) (Heparin) 5,000 units SC Q12 [facility] PRN Reason: Protocol Last Admin: 11/16/16 21:44 Dose: Not Given Hydrocortisone Sodium Succinate (Solu-Cortef) 50 mg IVP Q8 [facility] Last Admin: 11/20/16 06:51 Dose: 50 mg Hydromorphone HCl (Dilaudid) 1 mg IVP Q3H PRN PRN Reason: Pain, severe (8-10) Last Admin: 11/18/16 13:12 Dose: 1 mg Hydroxyurea (Hydrea) 500 mg PO DAILY [facility] Last Admin: 11/19/16 14:48 Dose: Not Given Vancomycin HCl (Vancomycin 1gm) 1 gm in 250 mls @ 167 mls/hr IVPB DAILY [facility] PRN Reason: Protocol Last Admin: 11/19/16 14:54 Dose: 167 mls/hr Cefepime HCl (Maxipime 1gm) 1 gm in 100 mls @ 100 mls/hr IVPB Q24H [facility] PRN Reason: Protocol Last Admin: 11/19/16 14:49 Dose: 100 mls/hr Dextrose (Dextrose 10% In Water) 500 mls @ 20 mls/hr IV .Q24H [facility] Last Admin: 11/19/16 19:00 Dose: 20 mls/hr Propofol (Diprivan) 1,000 mg in 100 mls @ 2.259 mls/hr IV .Q24H PRN; Protocol; 5 MCG/KG/MIN PRN Reason: TITRATE PER MD ORDER Last Admin: 11/20/16 03:59 Dose: 50 mcg/kg/min, 22.589 mls/hr NOREPINEPHRINE BIT/0.9 % NACL (Levophed 4 Mg/ 250 Ml Ns Premixed) 4 mg in 250 mls @ 15 mls/hr IV .[id number] PRN; Protocol; 4 MCG/MIN PRN Reason: TITRATE PER MD ORDER Last Titration: 11/20/16 03:35 Dose: 5 mcg/min, 18.75 mls/hr Vasopressin 20 units/ Dextrose 101 mls @ 12.12 mls/hr IV .Q8H20M [facility]; 0.04 U/ MIN PRN Reason: Protocol Last Admin: 11/19/16 22:39 Dose: 12.12 mls/hr Metronidazole (Flagyl) 500 mg in 100 mls @ 100 mls/hr IVPB Q8 [facility] PRN Reason: Protocol Last Admin: 11/20/16 06:45 Dose: 100 mls/hr Sodium Bicarbonate 150 meq/ (Dextrose) 1,150 mls @ 125 mls/hr IV .Q9H12M [facility] Last Admin: 11/19/16 23:45 Dose: 125 mls/hr Dobutamine HCl/Dextrose (Dobutamine/Dextrose 5% 500mg/250ml) 500 mg in 250 mls @ 5.647 mls/hr IV .Q24H PRN; Protocol; 2.5 MCG/KG/MIN PRN Reason: TITRATE PER PROTOCOL Last Admin: 11/20/16 07:57 Dose: 5.647 mls/hr Lactic Acid (Lac-Hydrin 12% Cream (140 G)) 0 ea TOP DAILY PRN PRN Reason: Wound Lactulose (Generlac) 200 gm [place] Q6 [facility] Stop: 11/24/16 12:01 Last Admin: 11/20/16 06:49 Dose: 200 gm Midazolam HCl (Versed Inj) 1 mg IVP Q3H PRN PRN Reason: sedation Multivitamins/Minerals (Therapeutic-M Tab) 1 tab PO DAILY [facility] Last Admin: 11/19/16 14:53 Dose: Not Given Non-Formulary Medication (Mometasone [Asmanex Twisthaler 110 Mcg]) 100 mcg IH BID [facility] Last Admin: 11/15/16 21:20 Dose: Not Given Pantoprazole Sodium (Protonix Inj) 40 mg IVP Q12 [facility] Last Admin: 11/19/16 21:34 Dose: 40 mg Rifaximin (Xifaxan) 550 mg PO BID [facility] PRN Reason: Protocol Last Admin: 11/19/16 14:57 Dose: Not Given - Labs Labs: 11/20/16 06:00 11/20/16 06:00 PT 22.7 Seconds (9.9-11.8) H 11/20/16 06:00 INR 2.05 (0.93-1.08) H 11/20/16 06:00 APTT 83.0 Seconds (23.7-30.8) H* 11/19/16 10:00
--- NOTE | 2016-11-20 08:20 | RAD ---
HISTORY: intubated, f/u COMPARISON: Portable chest 11/19/2016. FINDINGS: Endotracheal tube is not significantly changed in position as well as right chest port. Study is still somewhat underpenetrated. Increase history volume has been captured with limited patchy airspace disease seen the left perihilar and bilateral medial basilar regions, improved in the interval. LUNGS: No active pulmonary disease. PLEURA: No significant pleural effusion identified, no pneumothorax apparent. CARDIOVASCULAR: Stir is stable cardiomediastinal silhouette. No definite pulmonary vascular derangement identified once again. OSSEOUS STRUCTURES: No significant abnormalities. VISUALIZED UPPER ABDOMEN: Normal. OTHER FINDINGS: None. IMPRESSION: Mild residual bilateral medial basilar and left perihilar airspace disease. No interval pleural effusion or pneumothorax bilaterally.
--- NOTE | 2016-11-20 08:20 | CP.PCM.PN ---
Subjective - Date & Time of Evaluation Date of Evaluation: 11/19/16 Time of Evaluation: 11:00 - Subjective Subjective: Patient being started on 2nd vasopressor today due to hypotension; Objective - Vital Signs/Intake and Output Vital Signs (last 24 hours): Temp Pulse Resp BP Pulse Ox 97.6 F 93 H 20 103/68 98 11/20/16 04:00 11/20/16 07:57 11/19/16 18:26 11/20/16 07:57 11/19/16 11:41 Intake and Output: 11/20/16 11/20/16 06:59 18:59 Intake Total 538 Balance 538 - Medications Medications: Current Medications Albuterol/Ipratropium (Duoneb 3 Mg/0.5 Mg (3 Ml) Ud) 3 ml IH [id number] [facility] Last Admin: 11/20/16 07:14 Dose: 3 ml Budesonide (Pulmicort Respules) 0.5 mg IH [id number] [facility] Last Admin: 11/20/16 07:14 Dose: 0.5 mg Ergocalciferol (Drisdol 50,000 Intl Units Cap) 1 cap PO QWK [facility] Last Admin: 11/19/16 14:47 Dose: Not Given Folic Acid (Folic Acid) 1 mg PO DAILY [facility] Last Admin: 11/19/16 14:47 Dose: Not Given Furosemide (Lasix) 40 mg IVP DAILY [facility] Last Admin: 11/17/16 09:00 Dose: 40 mg Heparin Sodium (Porcine) (Heparin) 5,000 units SC Q12 [facility] PRN Reason: Protocol Last Admin: 11/16/16 21:44 Dose: Not Given Hydrocortisone Sodium Succinate (Solu-Cortef) 50 mg IVP Q8 [facility] Last Admin: 11/20/16 06:51 Dose: 50 mg Hydromorphone HCl (Dilaudid) 1 mg IVP Q3H PRN PRN Reason: Pain, severe (8-10) Last Admin: 11/18/16 13:12 Dose: 1 mg Hydroxyurea (Hydrea) 500 mg PO DAILY [facility] Last Admin: 11/19/16 14:48 Dose: Not Given Vancomycin HCl (Vancomycin 1gm) 1 gm in 250 mls @ 167 mls/hr IVPB DAILY [facility] PRN Reason: Protocol Last Admin: 11/19/16 14:54 Dose: 167 mls/hr Cefepime HCl (Maxipime 1gm) 1 gm in 100 mls @ 100 mls/hr IVPB Q24H [facility] PRN Reason: Protocol Last Admin: 11/19/16 14:49 Dose: 100 mls/hr Dextrose (Dextrose 10% In Water) 500 mls @ 20 mls/hr IV .Q24H [facility] Last Admin: 11/19/16 19:00 Dose: 20 mls/hr Propofol (Diprivan) 1,000 mg in 100 mls @ 2.259 mls/hr IV .Q24H PRN; Protocol; 5 MCG/KG/MIN PRN Reason: TITRATE PER MD ORDER Last Admin: 11/20/16 03:59 Dose: 50 mcg/kg/min, 22.589 mls/hr NOREPINEPHRINE BIT/0.9 % NACL (Levophed 4 Mg/ 250 Ml Ns Premixed) 4 mg in 250 mls @ 15 mls/hr IV .[id number] PRN; Protocol; 4 MCG/MIN PRN Reason: TITRATE PER MD ORDER Last Titration: 11/20/16 03:35 Dose: 5 mcg/min, 18.75 mls/hr Vasopressin 20 units/ Dextrose 101 mls @ 12.12 mls/hr IV .Q8H20M [facility]; 0.04 U/ MIN PRN Reason: Protocol Last Admin: 11/19/16 22:39 Dose: 12.12 mls/hr Metronidazole (Flagyl) 500 mg in 100 mls @ 100 mls/hr IVPB Q8 [facility] PRN Reason: Protocol Last Admin: 11/20/16 06:45 Dose: 100 mls/hr Sodium Bicarbonate 150 meq/ (Dextrose) 1,150 mls @ 125 mls/hr IV .Q9H12M [facility] Last Admin: 11/19/16 23:45 Dose: 125 mls/hr Dobutamine HCl/Dextrose (Dobutamine/Dextrose 5% 500mg/250ml) 500 mg in 250 mls @ 5.647 mls/hr IV .Q24H PRN; Protocol; 2.5 MCG/KG/MIN PRN Reason: TITRATE PER PROTOCOL Last Admin: 11/20/16 07:57 Dose: 5.647 mls/hr Lactic Acid (Lac-Hydrin 12% Cream (140 G)) 0 ea TOP DAILY PRN PRN Reason: Wound Lactulose (Generlac) 200 gm [place] Q6 [facility] Stop: 11/24/16 12:01 Last Admin: 11/20/16 06:49 Dose: 200 gm Midazolam HCl (Versed Inj) 1 mg IVP Q3H PRN PRN Reason: sedation Multivitamins/Minerals (Therapeutic-M Tab) 1 tab PO DAILY [facility] Last Admin: 11/19/16 14:53 Dose: Not Given Non-Formulary Medication (Mometasone [Asmanex Twisthaler 110 Mcg]) 100 mcg IH BID [facility] Last Admin: 11/15/16 21:20 Dose: Not Given Pantoprazole Sodium (Protonix Inj) 40 mg IVP Q12 [facility] Last Admin: 11/19/16 21:34 Dose: 40 mg Rifaximin (Xifaxan) 550 mg PO BID [facility] PRN Reason: Protocol Last Admin: 11/19/16 14:57 Dose: Not Given - Labs Labs: 11/20/16 06:00 11/20/16 06:00 PT 22.7 Seconds (9.9-11.8) H 11/20/16 06:00 INR 2.05 (0.93-1.08) H 11/20/16 06:00 APTT 83.0 Seconds (23.7-30.8) H* 11/19/16 10:00 - Eye Exam Eye Exam: Scleral icterus - ENT Exam ENT Exam: Mucous Membranes Moist - Respiratory Exam Respiratory Exam: Rhonchi. absent: NORMAL BREATHING PATTERN - Cardiovascular Exam Cardiovascular Exam: REGULAR RHYTHM, +S1, +S2 - GI/Abdominal Exam GI & Abdominal Exam: Distended, Soft - Extremities Exam Additional comments: becoming markedly edematous; - Neurological Exam Additional comments: sedated; not responding to verbal stimuli; - Skin Additional comments: jaundiced; Assessment and Plan (1) Acute renal failure Assessment & Plan: Oliguric renal failure in the setting of acute liver injury/SS vaso-occlusive crisis; relatively stable lytes; becoming very edematous but hypotensive and requiring progressive vasopressor support; -will hold off on HD today and re-assess tomorrow; Status: Acute (2) Acute hypoxemic respiratory failure Assessment & Plan: FIO2 down to 60%, no need for UF at this time per critical care team; Status: Acute (3) Acute exacerbation of CHF (congestive heart failure) Assessment & Plan: Markedly edematous but unclear intravascular volume status; holding off on UF for now; Status: Acute (4) Acute liver failure Status: Acute (5) Sickle cell anemia with crisis Status: Acute
[2016-11-20 08:41] LABS: ALB/GLOB RATIO 0.8 (1.1-1.8); POTASSIUM 3.7 mmol/L (3.6-5.0); TOTAL PROTEIN 5.7 g/dL (5.8-8.3)
[2016-11-20 08:43] LABS: METAMYELOCYTE 2 %; MYELOCYTE 4 %; NEUTROPHIL 78 % (50.0-70.0)
[2016-11-20 08:44] LABS: HYPOCHROMIA 3+; PLATELET ESTIMATE LOW (NORMAL); POLYCHROMASIA 1+
[2016-11-20 08:45] LABS: ANISOCYTOSIS 2+; OVALOCYTES SLIGHT; POIKILOCYTOSIS 1+; SPHEROCYTE SLIGHT; TEAR DROP CELLS SLIGHT
[2016-11-20 08:47] LABS: NUCLEATED RED BLOOD CELL 380 %
[2016-11-20 08:49] LABS: WHITE BLOOD COUNT 33.6 10^3/ul (4.5-11.0)
[2016-11-20 08:52] LABS: CALCIUM 6.7 mg/dL (8.4-10.5)
[2016-11-20 08:53] LABS: BILIRUBIN,TOTAL 20.1 mg/dL (0.2-1.3)
[2016-11-20] MEDS: Multivitamin With Minerals Tab PO SCH (09:36)
[2016-11-20] MEDS: Sodium Bicarbonate 8.4% 150 MEQ in Dextrose 5% In Water 1,000 ML IV SCH (10:10)
[2016-11-20] MEDS: Vancomycin 1gm in NS 250ml 1 GM/250 ML BAG IVPB SCH (10:12)
[2016-11-20] MEDS: HYDROmorphone 0.5 mg/0.5 ml ISec IVP PRN ×2 (11:02→16:02)
--- NOTE | 2016-11-20 12:24 | PN ---
DATE: SUBJECTIVE: The patient is currently sedated on the ventilator and is on dobutamine as well as Levophed infusion. PHYSICAL EXAMINATION VITAL SIGNS: Blood pressure 90/89, heart rate 98 and temperature 98.4. HEENT: Fascial edema and jaundiced skin. HEART: S1 and S2 regular. CHEST: Absent breath sounds over the bases. EXTREMITIES: 2+ leg edema. LABORATORY DATA: Hemoglobin and hematocrit 6.9 and 17.5, white count 33,600, and platelet count 62,000. Today's BUN and creatinine are 39 and 2.0. Potassium is within normal limits. Calcium is 6.7. Abdominopelvic CT scan performed yesterday revealed bilateral lower lobe airspace consolidation, may represent atelectasis, pneumonia or acute chest syndrome. Cardiomegaly, hepatomegaly with increased attenuation of the liver. Small to moderate ascites. Moderate anasarca. ASSESSMENT: 1. Respiratory failure. 2. Hepatic failure. 3. Acute renal insufficiency. 4. Coagulopathy and thrombocytopenia. 5. Thrombotic esophageal bleeding. RECOMMENDATIONS: The case was discussed with Dr. Rai Perez, drink mixer in the ICU. Continue current norepinephrine and deferoxamine infusion. The patient underwent hemodialysis once so far. Continue current vasopressin. Overall, prognosis is grave. May consider vitamin K in the meantime. Pedro Luis Deshpande MD
--- NOTE | 2016-11-20 13:05 | CP.PCM.PN ---
<Juan C Frias - Last Filed: 11/20/16 12:52> Subjective - Date & Time of Evaluation Date of Evaluation: 11/20/16 Time of Evaluation: 12:52 - Subjective Subjective: Pt seen and examined at bedside. Pt with no change or acute events overnight. Pt remains intubated and sedated in the ICU. Objective - Vital Signs/Intake and Output Vital Signs (last 24 hours): Temp Pulse Resp BP Pulse Ox 97.9 F 91 H 15 96/64 L 99 11/20/16 12:00 11/20/16 12:00 11/20/16 07:51 11/20/16 11:59 11/20/16 12:00 Intake and Output: 11/20/16 11/20/16 06:59 18:59 Intake Total 2932 Output Total 500 Balance 2432 - Medications Medications: Current Medications Albuterol/Ipratropium (Duoneb 3 Mg/0.5 Mg (3 Ml) Ud) 3 ml IH [id number] [facility] Last Admin: 11/20/16 07:14 Dose: 3 ml Budesonide (Pulmicort Respules) 0.5 mg IH [id number] [facility] Last Admin: 11/20/16 07:14 Dose: 0.5 mg Ergocalciferol (Drisdol 50,000 Intl Units Cap) 1 cap PO QWK [facility] Last Admin: 11/19/16 14:47 Dose: Not Given Folic Acid (Folic Acid) 1 mg PO DAILY [facility] Last Admin: 11/20/16 09:28 Dose: Not Given Furosemide (Lasix) 40 mg IVP DAILY [facility] Last Admin: 11/17/16 09:00 Dose: 40 mg Heparin Sodium (Porcine) (Heparin) 5,000 units SC Q12 [facility] PRN Reason: Protocol Last Admin: 11/16/16 21:44 Dose: Not Given Hydrocortisone Sodium Succinate (Solu-Cortef) 50 mg IVP Q8 [facility] Last Admin: 11/20/16 06:51 Dose: 50 mg Hydromorphone HCl (Dilaudid) 1 mg IVP Q3H PRN PRN Reason: Pain, severe (8-10) Last Admin: 11/20/16 11:02 Dose: 1 mg Hydroxyurea (Hydrea) 500 mg PO DAILY [facility] Last Admin: 11/20/16 09:36 Dose: Not Given Vancomycin HCl (Vancomycin 1gm) 1 gm in 250 mls @ 167 mls/hr IVPB DAILY [facility] PRN Reason: Protocol Last Admin: 11/20/16 10:12 Dose: 167 mls/hr Cefepime HCl (Maxipime 1gm) 1 gm in 100 mls @ 100 mls/hr IVPB Q24H [facility] PRN Reason: Protocol Last Admin: 11/19/16 14:49 Dose: 100 mls/hr Dextrose (Dextrose 10% In Water) 500 mls @ 20 mls/hr IV .Q24H [facility] Last Admin: 11/19/16 19:00 Dose: 20 mls/hr Propofol (Diprivan) 1,000 mg in 100 mls @ 2.259 mls/hr IV .Q24H PRN; Protocol; 5 MCG/KG/MIN PRN Reason: TITRATE PER MD ORDER Last Admin: 11/20/16 03:59 Dose: 50 mcg/kg/min, 22.589 mls/hr NOREPINEPHRINE BIT/0.9 % NACL (Levophed 4 Mg/ 250 Ml Ns Premixed) 4 mg in 250 mls @ 15 mls/hr IV .M25P24D PRN; Protocol; 4 MCG/MIN PRN Reason: TITRATE PER MD ORDER Last Titration: 11/20/16 05:00 Dose: 0 mcg/min, 0 mls/hr Vasopressin 20 units/ Dextrose 101 mls @ 12.12 mls/hr IV .Q8H20M [facility]TTE; 0.04 U/ MIN PRN Reason: Protocol Last Admin: 11/19/16 22:39 Dose: 12.12 mls/hr Metronidazole (Flagyl) 500 mg in 100 mls @ 100 mls/hr IVPB Q8 [facility] PRN Reason: Protocol Last Admin: 11/20/16 06:45 Dose: 100 mls/hr Sodium Bicarbonate 150 meq/ (Dextrose) 1,150 mls @ 125 mls/hr IV .Q9H12M [facility] Last Admin: 11/20/16 10:10 Dose: 125 mls/hr Dobutamine HCl/Dextrose (Dobutamine/Dextrose 5% 500mg/250ml) 500 mg in 250 mls @ 5.647 mls/hr IV .Q24H PRN; Protocol; 2.5 MCG/KG/MIN PRN Reason: TITRATE PER PROTOCOL Last Admin: 11/20/16 07:57 Dose: 5.647 mls/hr Lactic Acid (Lac-Hydrin 12% Cream (140 G)) 0 ea TOP DAILY PRN PRN Reason: Wound Lactulose (Generlac) 200 gm [place] Q6 [facility] Stop: 11/24/16 12:01 Last Admin: 11/20/16 06:49 Dose: 200 gm Midazolam HCl (Versed Inj) 1 mg IVP Q3H PRN PRN Reason: sedation Multivitamins/Minerals (Therapeutic-M Tab) 1 tab PO DAILY [facility] Last Admin: 11/20/16 09:36 Dose: Not Given Non-Formulary Medication (Mometasone [Asmanex Twisthaler 110 Mcg]) 100 mcg IH BID [facility] Last Admin: 11/15/16 21:20 Dose: Not Given Pantoprazole Sodium (Protonix Inj) 40 mg IVP Q12 [facility] Last Admin: 11/20/16 09:35 Dose: 40 mg Rifaximin (Xifaxan) 550 mg PO BID [facility] PRN Reason: Protocol Last Admin: 11/19/16 14:57 Dose: Not Given - Labs Labs: 11/20/16 06:00 11/20/16 08:28 PT 22.7 Seconds (9.9-11.8) H 11/20/16 06:00 INR 2.05 (0.93-1.08) H 11/20/16 06:00 APTT 83.0 Seconds (23.7-30.8) H* 11/19/16 10:00 - Constitutional Appears: Toxic, In Acute Distress - Head Exam Head Exam: ATRAUMATIC, NORMAL INSPECTION, NORMOCEPHALIC - ENT Exam ENT Exam: Mucous Membranes Dry - Neck Exam Neck Exam: Normal Inspection. absent: Lymphadenopathy - Respiratory Exam Respiratory Exam: Rhonchi (b/l), Respiratory Distress. absent: Decreased Breath Sounds, Rales, Wheezes Additional comments: Intubated - Cardiovascular Exam Cardiovascular Exam: RRR, +S1, +S2 - GI/Abdominal Exam GI & Abdominal Exam: Distended, Firm, Normal Bowel Sounds. absent: Tenderness - Extremities Exam Extremities Exam: Pedal Edema (+1 b/l). absent: Calf Tenderness - Neurological Exam Neurological Exam: Alert, Awake, Oriented x3 - Skin Skin Exam: Intact, Normal Color, Warm Assessment and Plan - Assessment and Plan (Free Text) Plan: 36 y/o F with PMH of Sickle cell disease, Bipolar disorder, Cerebral palsy, Asthma, CHF here for likely vaso-occlusive crisis complicated by liver failure. Hospital course complicated by thrombocytopenia, coagulopathy. Pt subsequently found to have MELITON. 1. Likely Vaso-occlusive crisis secondary to sickle cell disease Monitor Hg closely will transfuse if Hb <7 Continue Hydroxyurea Heme following, awaiting recs 2. Liver disease Patient not a candidate for liver transplantation at this time Transaminitis, elevated Thrombocytopenia worsening Hyperbilirubinemia worsening GI following 3. Upper GI bleed S/p bedside EGD Bleed cauterized and injected Continue to monitor Hg Octreotide and Protonix drips stopped Protonix 40 q12 daily 4. MELITON Nephro following Continues to be oliguric No dialysis at this time 5. CHF Continue Lasix 40 mg daily EF - 39.7% in June 2016 Cardiology following 6. Respiratory failure intubated and sedated Continue breathing treatments ventilatory management as per ICU 7. Leukocytosis Blood cultures negative Urine cultures negative ID following Continue IV Abx 8. Electrolyte abnormalities Replete as needed 9. PPx Protonix SCDs Rodriguez, PGY-2 <Marco Green - Last Filed: 11/20/16 17:07> Objective - Vital Signs/Intake and Output Vital Signs (last 24 hours): Temp Pulse Resp BP Pulse Ox 97.9 F 97 H 15 105/87 99 11/20/16 12:00 11/20/16 15:16 11/20/16 07:51 11/20/16 15:15 11/20/16 13:00 Intake and Output: 11/20/16 11/20/16 06:59 18:59 Intake Total 2932 2 Output Total 500 Balance 2432 2 - Medications Medications: Current Medications Albuterol/Ipratropium (Duoneb 3 Mg/0.5 Mg (3 Ml) Ud) 3 ml IH [id number] [facility] Last Admin: 11/20/16 13:07 Dose: 3 ml Budesonide (Pulmicort Respules) 0.5 mg IH [id number] [facility] Last Admin: 11/20/16 07:14 Dose: 0.5 mg Ergocalciferol (Drisdol 50,000 Intl Units Cap) 1 cap PO QWK [facility] Last Admin: 11/19/16 14:47 Dose: Not Given Folic Acid (Folic Acid) 1 mg PO DAILY [facility] Last Admin: 11/20/16 09:28 Dose: Not Given Furosemide (Lasix) 40 mg IVP DAILY [facility] Last Admin: 11/17/16 09:00 Dose: 40 mg Heparin Sodium (Porcine) (Heparin) 5,000 units SC Q12 [facility] PRN Reason: Protocol Last Admin: 11/16/16 21:44 Dose: Not Given Heparin Sodium (Porcine) (Heparin) 5,000 units IVP ONCE ONE PRN Reason: Protocol Stop: 11/20/16 17:31 Hydrocortisone Sodium Succinate (Solu-Cortef) 50 mg IVP Q8 [facility] Last Admin: 11/20/16 14:51 Dose: 50 mg Hydromorphone HCl (Dilaudid) 1 mg IVP Q3H PRN PRN Reason: Pain, severe (8-10) Last Admin: 11/20/16 16:02 Dose: 1 mg Hydroxyurea (Hydrea) 500 mg PO DAILY [facility] Last Admin: 11/20/16 09:36 Dose: Not Given Vancomycin HCl (Vancomycin 1gm) 1 gm in 250 mls @ 167 mls/hr IVPB DAILY [facility] PRN Reason: Protocol Last Admin: 11/20/16 10:12 Dose: 167 mls/hr Cefepime HCl (Maxipime 1gm) 1 gm in 100 mls @ 100 mls/hr IVPB Q24H [facility] PRN Reason: Protocol Last Admin: 11/19/16 14:49 Dose: 100 mls/hr Dextrose (Dextrose 10% In Water) 500 mls @ 20 mls/hr IV .Q24H [facility] Last Admin: 11/19/16 19:00 Dose: 20 mls/hr Propofol (Diprivan) 1,000 mg in 100 mls @ 2.259 mls/hr IV .Q24H PRN; Protocol; 5 MCG/KG/MIN PRN Reason: TITRATE PER MD ORDER Last Admin: 11/20/16 03:59 Dose: 50 mcg/kg/min, 22.589 mls/hr NOREPINEPHRINE BIT/0.9 % NACL (Levophed 4 Mg/ 250 Ml Ns Premixed) 4 mg in 250 mls @ 15 mls/hr IV .[id number] PRN; Protocol; 4 MCG/MIN PRN Reason: TITRATE PER MD ORDER Last Titration: 11/20/16 15:30 Dose: 6 mcg/min, 22.5 mls/hr Vasopressin 20 units/ Dextrose 101 mls @ 12.12 mls/hr IV .Q8H20M [facility]E; 0.04 U/ MIN PRN Reason: Protocol Last Admin: 11/19/16 22:39 Dose: 12.12 mls/hr Metronidazole (Flagyl) 500 mg in 100 mls @ 100 mls/hr IVPB Q8 [facility] PRN Reason: Protocol Last Admin: 11/20/16 06:45 Dose: 100 mls/hr Sodium Bicarbonate 150 meq/ (Dextrose) 1,150 mls @ 125 mls/hr IV .Q9H12M [facility] Last Admin: 11/20/16 10:10 Dose: 125 mls/hr Dobutamine HCl/Dextrose (Dobutamine/Dextrose 5% 500mg/250ml) 500 mg in 250 mls @ 5.647 mls/hr IV .Q24H PRN; Protocol; 2.5 MCG/KG/MIN PRN Reason: TITRATE PER PROTOCOL Last Admin: 11/20/16 07:57 Dose: 5.647 mls/hr Lactic Acid (Lac-Hydrin 12% Cream (140 G)) 0 ea TOP DAILY PRN PRN Reason: Wound Lactulose (Generlac) 200 gm [place] Q6 [facility] Stop: 11/24/16 12:01 Last Admin: 11/20/16 06:49 Dose: 200 gm Midazolam HCl (Versed Inj) 1 mg IVP Q3H PRN PRN Reason: sedation Multivitamins/Minerals (Therapeutic-M Tab) 1 tab PO DAILY [facility] Last Admin: 11/20/16 09:36 Dose: Not Given Non-Formulary Medication (Mometasone [Asmanex Twisthaler 110 Mcg]) 100 mcg IH BID [facility] Last Admin: 11/15/16 21:20 Dose: Not Given Pantoprazole Sodium (Protonix Inj) 40 mg IVP Q12 [facility] Last Admin: 11/20/16 09:35 Dose: 40 mg Rifaximin (Xifaxan) 550 mg PO BID [facility] PRN Reason: Protocol Last Admin: 11/19/16 14:57 Dose: Not Given - Labs Labs: 11/20/16 06:00 11/20/16 08:28 PT 22.7 Seconds (9.9-11.8) H 11/20/16 06:00 INR 2.05 (0.93-1.08) H 11/20/16 06:00 APTT 83.0 Seconds (23.7-30.8) H* 11/19/16 10:00 Attending/Attestation - Attestation I have personally seen and examined this patient.: Yes I have fully participated in the care of the patient.: Yes I have reviewed all pertinent clinical information, including history, physical exam and plan: Yes Notes (Text): 11/20/16 17:05 36 year old female with past medical history of sickle cell disease/anemia, bipolar disorder, CHF and asthma who presented with sickle cell crisis. Hospital course complicated with respiratory distress s/p intubation, shock on vasopressor support and GB s/p EGD with cauterization. She is being followed by GI, ID and nephrology. Continue with antibiotics as per ID. Plasmapheresis and red cell exchange as per hematology and nephrology. Prognosis is guarded. Marco Green MD Hospitalist.
--- NOTE | 2016-11-20 13:27 | CP.PCM.PN ---
Subjective - Date & Time of Evaluation Date of Evaluation: 11/20/16 Time of Evaluation: 14:00 - Subjective Subjective: Vented, receiving dialysis For repeat red cell exchange after dialysis Objective - Vital Signs/Intake and Output Vital Signs (last 24 hours): Temp Pulse Resp BP Pulse Ox 97.9 F 91 H 15 96/64 L 99 11/20/16 12:00 11/20/16 12:00 11/20/16 07:51 11/20/16 11:59 11/20/16 12:00 Intake and Output: 11/20/16 11/20/16 06:59 18:59 Intake Total 2932 Output Total 500 Balance 2432 - Medications Medications: Current Medications Albuterol/Ipratropium (Duoneb 3 Mg/0.5 Mg (3 Ml) Ud) 3 ml IH [id number] [facility] Last Admin: 11/20/16 13:07 Dose: 3 ml Budesonide (Pulmicort Respules) 0.5 mg IH [id number] [facility] Last Admin: 11/20/16 07:14 Dose: 0.5 mg Ergocalciferol (Drisdol 50,000 Intl Units Cap) 1 cap PO QWK [facility] Last Admin: 11/19/16 14:47 Dose: Not Given Folic Acid (Folic Acid) 1 mg PO DAILY [facility] Last Admin: 11/20/16 09:28 Dose: Not Given Furosemide (Lasix) 40 mg IVP DAILY [facility] Last Admin: 11/17/16 09:00 Dose: 40 mg Heparin Sodium (Porcine) (Heparin) 5,000 units SC Q12 [facility] PRN Reason: Protocol Last Admin: 11/16/16 21:44 Dose: Not Given Hydrocortisone Sodium Succinate (Solu-Cortef) 50 mg IVP Q8 [facility] Last Admin: 11/20/16 06:51 Dose: 50 mg Hydromorphone HCl (Dilaudid) 1 mg IVP Q3H PRN PRN Reason: Pain, severe (8-10) Last Admin: 11/20/16 11:02 Dose: 1 mg Hydroxyurea (Hydrea) 500 mg PO DAILY [facility] Last Admin: 11/20/16 09:36 Dose: Not Given Vancomycin HCl (Vancomycin 1gm) 1 gm in 250 mls @ 167 mls/hr IVPB DAILY [facility] PRN Reason: Protocol Last Admin: 11/20/16 10:12 Dose: 167 mls/hr Cefepime HCl (Maxipime 1gm) 1 gm in 100 mls @ 100 mls/hr IVPB Q24H [facility] PRN Reason: Protocol Last Admin: 11/19/16 14:49 Dose: 100 mls/hr Dextrose (Dextrose 10% In Water) 500 mls @ 20 mls/hr IV .Q24H [facility] Last Admin: 11/19/16 19:00 Dose: 20 mls/hr Propofol (Diprivan) 1,000 mg in 100 mls @ 2.259 mls/hr IV .Q24H PRN; Protocol; 5 MCG/KG/MIN PRN Reason: TITRATE PER MD ORDER Last Admin: 11/20/16 03:59 Dose: 50 mcg/kg/min, 22.589 mls/hr NOREPINEPHRINE BIT/0.9 % NACL (Levophed 4 Mg/ 250 Ml Ns Premixed) 4 mg in 250 mls @ 15 mls/hr IV .[id number] PRN; Protocol; 4 MCG/MIN PRN Reason: TITRATE PER MD ORDER Last Titration: 11/20/16 05:00 Dose: 0 mcg/min, 0 mls/hr Vasopressin 20 units/ Dextrose 101 mls @ 12.12 mls/hr IV .Q8H20M [facility]TTE; 0.04 U/ MIN PRN Reason: Protocol Last Admin: 11/19/16 22:39 Dose: 12.12 mls/hr Metronidazole (Flagyl) 500 mg in 100 mls @ 100 mls/hr IVPB Q8 [facility] PRN Reason: Protocol Last Admin: 11/20/16 06:45 Dose: 100 mls/hr Sodium Bicarbonate 150 meq/ (Dextrose) 1,150 mls @ 125 mls/hr IV .Q9H12M [facility] Last Admin: 11/20/16 10:10 Dose: 125 mls/hr Dobutamine HCl/Dextrose (Dobutamine/Dextrose 5% 500mg/250ml) 500 mg in 250 mls @ 5.647 mls/hr IV .Q24H PRN; Protocol; 2.5 MCG/KG/MIN PRN Reason: TITRATE PER PROTOCOL Last Admin: 11/20/16 07:57 Dose: 5.647 mls/hr Lactic Acid (Lac-Hydrin 12% Cream (140 G)) 0 ea TOP DAILY PRN PRN Reason: Wound Lactulose (Generlac) 200 gm [place] Q6 [facility] Stop: 11/24/16 12:01 Last Admin: 11/20/16 06:49 Dose: 200 gm Midazolam HCl (Versed Inj) 1 mg IVP Q3H PRN PRN Reason: sedation Multivitamins/Minerals (Therapeutic-M Tab) 1 tab PO DAILY [facility] Last Admin: 11/20/16 09:36 Dose: Not Given Non-Formulary Medication (Mometasone [Asmanex Twisthaler 110 Mcg]) 100 mcg IH BID [facility] Last Admin: 11/15/16 21:20 Dose: Not Given Pantoprazole Sodium (Protonix Inj) 40 mg IVP Q12 [facility] Last Admin: 11/20/16 09:35 Dose: 40 mg Rifaximin (Xifaxan) 550 mg PO BID [facility] PRN Reason: Protocol Last Admin: 11/19/16 14:57 Dose: Not Given - Labs Labs: 11/20/16 06:00 11/20/16 08:28 PT 22.7 Seconds (9.9-11.8) H 11/20/16 06:00 INR 2.05 (0.93-1.08) H 11/20/16 06:00 APTT 83.0 Seconds (23.7-30.8) H* 11/19/16 10:00 - Head Exam Head Exam: ATRAUMATIC - Eye Exam Eye Exam: Scleral icterus - ENT Exam ENT Exam: Mucous Membranes Dry - Respiratory Exam Respiratory Exam: Decreased Breath Sounds - Cardiovascular Exam Cardiovascular Exam: +S1, +S2 - GI/Abdominal Exam GI & Abdominal Exam: Normal Bowel Sounds - Extremities Exam Extremities Exam: Pedal Edema Assessment and Plan (1) Coagulopathy Assessment & Plan: liver disease nutritional component Status: Acute (2) Thrombocytopenia Assessment & Plan: repeat fibrinogen Status: Acute (3) Sickle cell pain crisis Assessment & Plan: multiorgan failure for repeat red cell exchange Status: Acute (4) Iron overload due to repeated red blood cell transfusions Assessment & Plan: with liver disease concern for cirrhosis liver transpant transfer declined by 2 centers Status: Acute (5) Leukocytosis Assessment & Plan: on antibiotics Status: Acute
--- NOTE | 2016-11-20 13:40 | CP.PCM.PN ---
Subjective - Date & Time of Evaluation Date of Evaluation: 11/20/16 Time of Evaluation: 11:30 - Subjective Subjective: Infectious Disease Follow Up: November 20, 2016 36 yo AA female well known to me from previous hospitalizations at [facility] and [facility] presented with generalized pains and admitted for Sickle Cell vasoocclusive Crisis. The patient was just discharged from [facility] a few days ago. She returns with abdominal pain, nausea, and vomiting. The patient did not exhibit a fever while hospitalized so far but came very close with a 100.0 F. Patient with nausea and vomiting and diarrhea. Her blood pressure is lower than her usual. Started on Zosyn for antibiotic treatment. Sudden elevation of LFTs. Zosyn stopped on 11/14/2016. Impending liver failure ? Acute Kidney Injury. Noted Vancomycin restarted. Would continue with Cefepime for the time being. There is a leukocytosis of 42.0 although corrected WBC is 7.8. Patient appears swollen in general. AST and ALT are still increasing. Chelation therapy still in progress. Undergoing red cell exchange transfusion and plasmapheresis yesterday as well as hemodialysis. Patient remains intubated and ventilated. Extremely poor prognosis. The patient is not a candidate for liver transplant at this time as per the [facility] Liver transplant center. Remained hypotensive overnight despite pressor medications. The patient is poorly responsive. Taken to EGD for cauterization. Supportive care. Renal dosing of antibiotics. Prognosis dismal. Having another red cell exchange. Objective - Vital Signs/Intake and Output Vital Signs (last 24 hours): Temp Pulse Resp BP Pulse Ox 97.9 F 91 H 15 96/64 L 99 11/20/16 12:00 11/20/16 12:00 11/20/16 07:51 11/20/16 11:59 11/20/16 12:00 Intake and Output: 11/20/16 11/20/16 06:59 18:59 Intake Total 2932 Output Total 500 Balance 2432 - Medications Medications: Current Medications Albuterol/Ipratropium (Duoneb 3 Mg/0.5 Mg (3 Ml) Ud) 3 ml IH [id number] [facility] Last Admin: 11/20/16 13:07 Dose: 3 ml Budesonide (Pulmicort Respules) 0.5 mg IH [id number] [facility] Last Admin: 11/20/16 07:14 Dose: 0.5 mg Ergocalciferol (Drisdol 50,000 Intl Units Cap) 1 cap PO QWK [facility] Last Admin: 11/19/16 14:47 Dose: Not Given Folic Acid (Folic Acid) 1 mg PO DAILY [facility] Last Admin: 11/20/16 09:28 Dose: Not Given Furosemide (Lasix) 40 mg IVP DAILY [facility] Last Admin: 11/17/16 09:00 Dose: 40 mg Heparin Sodium (Porcine) (Heparin) 5,000 units SC Q12 [facility] PRN Reason: Protocol Last Admin: 11/16/16 21:44 Dose: Not Given Hydrocortisone Sodium Succinate (Solu-Cortef) 50 mg IVP Q8 [facility] Last Admin: 11/20/16 06:51 Dose: 50 mg Hydromorphone HCl (Dilaudid) 1 mg IVP Q3H PRN PRN Reason: Pain, severe (8-10) Last Admin: 11/20/16 11:02 Dose: 1 mg Hydroxyurea (Hydrea) 500 mg PO DAILY [facility] Last Admin: 11/20/16 09:36 Dose: Not Given Vancomycin HCl (Vancomycin 1gm) 1 gm in 250 mls @ 167 mls/hr IVPB DAILY [facility] PRN Reason: Protocol Last Admin: 11/20/16 10:12 Dose: 167 mls/hr Cefepime HCl (Maxipime 1gm) 1 gm in 100 mls @ 100 mls/hr IVPB Q24H [facility] PRN Reason: Protocol Last Admin: 11/19/16 14:49 Dose: 100 mls/hr Dextrose (Dextrose 10% In Water) 500 mls @ 20 mls/hr IV .Q24H [facility] Last Admin: 11/19/16 19:00 Dose: 20 mls/hr Propofol (Diprivan) 1,000 mg in 100 mls @ 2.259 mls/hr IV .Q24H PRN; Protocol; 5 MCG/KG/MIN PRN Reason: TITRATE PER MD ORDER Last Admin: 11/20/16 03:59 Dose: 50 mcg/kg/min, 22.589 mls/hr NOREPINEPHRINE BIT/0.9 % NACL (Levophed 4 Mg/ 250 Ml Ns Premixed) 4 mg in 250 mls @ 15 mls/hr IV .[id number] PRN; Protocol; 4 MCG/MIN PRN Reason: TITRATE PER MD ORDER Last Titration: 11/20/16 05:00 Dose: 0 mcg/min, 0 mls/hr Vasopressin 20 units/ Dextrose 101 mls @ 12.12 mls/hr IV .Q8H20M [facility]; 0.04 U/ MIN PRN Reason: Protocol Last Admin: 11/19/16 22:39 Dose: 12.12 mls/hr Metronidazole (Flagyl) 500 mg in 100 mls @ 100 mls/hr IVPB Q8 [facility] PRN Reason: Protocol Last Admin: 11/20/16 06:45 Dose: 100 mls/hr Sodium Bicarbonate 150 meq/ (Dextrose) 1,150 mls @ 125 mls/hr IV .Q9H12M [facility] Last Admin: 11/20/16 10:10 Dose: 125 mls/hr Dobutamine HCl/Dextrose (Dobutamine/Dextrose 5% 500mg/250ml) 500 mg in 250 mls @ 5.647 mls/hr IV .Q24H PRN; Protocol; 2.5 MCG/KG/MIN PRN Reason: TITRATE PER PROTOCOL Last Admin: 11/20/16 07:57 Dose: 5.647 mls/hr Lactic Acid (Lac-Hydrin 12% Cream (140 G)) 0 ea TOP DAILY PRN PRN Reason: Wound Lactulose (Generlac) 200 gm TN Q6 [facility] Stop: 11/24/16 12:01 Last Admin: 11/20/16 06:49 Dose: 200 gm Midazolam HCl (Versed Inj) 1 mg IVP Q3H PRN PRN Reason: sedation Multivitamins/Minerals (Therapeutic-M Tab) 1 tab PO DAILY [facility] Last Admin: 11/20/16 09:36 Dose: Not Given Non-Formulary Medication (Mometasone [Asmanex Twisthaler 110 Mcg]) 100 mcg IH BID [facility] Last Admin: 11/15/16 21:20 Dose: Not Given Pantoprazole Sodium (Protonix Inj) 40 mg IVP Q12 [facility] Last Admin: 11/20/16 09:35 Dose: 40 mg Rifaximin (Xifaxan) 550 mg PO BID [facility] PRN Reason: Protocol Last Admin: 11/19/16 14:57 Dose: Not Given - Labs Labs: 11/20/16 06:00 11/20/16 08:28 PT 22.7 Seconds (9.9-11.8) H 11/20/16 06:00 INR 2.05 (0.93-1.08) H 11/20/16 06:00 APTT 83.0 Seconds (23.7-30.8) H* 11/19/16 10:00 - Constitutional Appears: Non-toxic, Chronically Ill - Head Exam Additional comments: intubated and ventilated. +1 edema of the face. - Eye Exam Eye Exam: EOMI, PERRL Pupil Exam: NORMAL ACCOMODATION, PERRL - ENT Exam ENT Exam: Mucous Membranes Moist, Normal External Ear Exam, TM's Normal Bilaterally - Neck Exam Neck Exam: Full ROM, Normal Inspection - Respiratory Exam Additional comments: intubated and ventilated. - Cardiovascular Exam Cardiovascular Exam: REGULAR RHYTHM, RRR, +S1, +S2 - GI/Abdominal Exam GI & Abdominal Exam: Distended, Soft, Hypoactive Bowel Sounds - Extremities Exam Extremities Exam: Joint Swelling, Pedal Edema - Neurological Exam Neurological Exam: absent: Alert, Awake Additional comments: intubated, ventilated, and sedated... poorly responsive today. - Psychiatric Exam Additional comments: poorly responsive. Assessment and Plan - Assessment and Plan (Free Text) Assessment: 36 yo AA female with known Sickle Cell disease presenting with diarrhea and abdominal pain. Low blood pressure/borderline hypotension. Supportive care. Velarde cultures. No leukocytosis noted however. Coagulase negative staph according to FISH studies. Sudden increase in LFTs and creatinine. Continue with renal dosing of Cefepime for now. Vancomycin should be adjusted for renal function. LFT are continuing to increase. Acute Kidney Injury with creatinine of 2.0. Remains in MICU for further care. General edema of the patient. Today patient was intubated and ventilated. Increasing leukocytosis. If continues to increase, will consider use of meropenem. Noted that the patient's cultures are negative to date. LFTs remain severely elevated. 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 Extremely poor prognosis. Intubated and Ventilated. Generalized edema. Liver Cirrhosis. Not deemed a candidate for liver transplant by [facility] Liver center. Patient is receiving hemodialysis. EGD done yesterday with cauterization of an ulcer. Patient's prognosis remains poor to dismal. Thank you for allowing me to participate in the care of the patient, we will follow with you.
[2016-11-20] MEDS ORDERED: DiphenhydrAMINE 50 mg/ml Inj IVP ONE (14:00)
--- NOTE | 2016-11-20 14:02 | PN ---
DATE: 11/20/2016 SUBJECTIVE: The patient is seen and examined at bedside. She is sedated with propofol; however, it was just turned off for daily sedation vacation. The patient is on PRVC and the setting is 400/15/5/40% on FiO2 of 50%. Her ABG shows 7.4/35/123. Lactic acid went down to 7.7 from 10.9. PHYSICAL EXAMINATION: VITAL SIGNS: The patient is off vasopressin and norepinephrine; her blood pressure fluctuated between 91 systolic and 103 systolic. Currently, it is 103/68. End-tidal CO2 on the monitor 32 (correspond on ABG to pCO2 of 35), respiratory rate 16. Oxygen saturation 100%. Heart rate 98. HEENT: ENT, head and neck, atraumatic. HEART: Regular rate and rhythm. S1, S2 distant. LUNGS: Decreased breath sounds bilaterally. Few crackles bilaterally. ABDOMEN: Soft. Anasarca present, mildly distended. No peritoneal signs. MUSCULOSKELETAL EXAM: 1+ bilateral pedal and ankle edema. NEUROLOGIC: The patient is sedated. SKIN: Moist. PSYCHIATRY: The patient is sedated. LABORATORY DATA: AB.4/35/123. Lactate 7.7. Sodium 132, potassium 3.7, chloride 91, carbon dioxide 19, BUN 38, creatinine 2. Bilirubin 21.2. ALT 244, AST is pending. Hemoglobin 6.9, platelet count 62, WBC is pending (we will discuss with hematology service, Dr. Palacios, whether or not transfuse 1 unit of blood). Microbiology: Blood culture from 5 days ago negative. Blood culture from 6 days ago negative except for coagulase-negative Staphylococcus, which might be a contamination. CAT scan of the abdomen and pelvis yesterday revealed mild ascites; cystitis; diffuse large bowel wall thickening, suspicious for colitis (surgical consultation obtained, no surgical intervention at present time); hepatomegaly with diffuse increased inflammation of the liver; bilateral lower lobe airspace consolidation; severe cardiomegaly (echocardiogram ordered and dobutamine empirically started). Chest x-ray showed low volumes and bilateral congestion, endotracheal tube in correction position. ASSESSMENT AND PLAN: This is a 36-year-old lady with distributive shock and multiorgan system failure in the setting of likely sickle cell crisis, with or without acute chest syndrome. The patient is status post exchange transfusion. Hemoglobin S percentage is pending. She is off pressor support. Cardiomegaly on CAT scan is concerning and echocardiogram is pending. We will see if small dose of dobutamine drip would improve her overall hemodynamics and respiratory status (longstanding sickle cell disease basically predispose patients to pulmonary hypertension which may be getting worse in the setting of distributive shock, invasive positive-pressure ventilation and pneumonia). We will also send urine for Legionella and streptococcal antigen. We will send sputum culture. We will send serology of influenza for analysis as well. If the patient maintains her hemodynamics off pressors, we will proceed with inquiring nephrology service about dialysis session with removal of extra fluid. Followup of hematology service as to whether or not, repeat exchange blood transfusion, is pending as well. Yesterday's CAT scan revealed possibility of colitis. Stool for Clostridium difficile is pending. The patient's antibiotics were changed to include Flagyl. Infectious disease service followup is appreciated. We will maintain blood glucose within 140 to 180 range with a NICE-SUGAR trial. The patient is on stress-dose steroids, which we will start to taper soon. Liver changes suspicious for end-stage liver disease are worrisome. Tertiary centers including [facility] as well as [facility] were contacted; however, she was not deemed to be a candidate for liver transplant at present time. Gastroenterology service is following her as well. She is status post EGD yesterday which did not reveal any stigmata of recent bleeding or any lesions that would require therapeutic intervention. We stopped propofol and waiting for her to wake up to proceed with weaning trial. Proceeding with dialysis would help with the fluid balance as well. Neurologic: The patient is off propofol, starting to waking up. We will proceed with daily sedation vacation. Of note, the patient has underlying history of cerebral palsy. Pulmonary: Once the patient is more alert and awake, we will try to optimize her fluid balance and to proceed with weaning trial. Meanwhile, we will continue with protective lung ventilation strategy maintaining tidal volume 6 to 8 mL per predicted body weight and plateau pressure of less than 30. We will continue with conservative fluid and oxygen management. FiO2 down to 40%. We will continue with VAP bundle including oral hygiene. Deep venous thrombosis and gastrointestinal prophylaxis. Pulmonary toilet. Cardiovascular: The patient has cardiomegaly on CAT scan. Echocardiogram is pending. Dobutamine is therefore started to see if that beneficially affect her hemodynamics and respiratory status as well. The patient is off pressor support. Her lactic acid trended down. Part of lactic acidosis is likely related to type B lactic acidosis due to her liver failure. Gastroenterology: The patient is status post EGD which did not reveal any lesions that would require therapeutic intervention or stigmata of recent bleeding. The patient appears to have signs of end-stage liver disease, whether or not related to her sickle cell disease. Tertiary centers including [facility] and [facility] were contacted; however, she was not deemed to be a candidate for transplant in relation at the present time. Endocrine: We will continue with blood glucose within 140 to 180 range with a NICE-SUGAR trial. We will start tapering down her stress-dose steroids once she maintains her hemodynamics appropriately and steadily. Infectious disease: The patient is on meropenem, vancomycin, and Flagyl. Stool for Clostridium difficile ordered. Urine for Legionella and streptococcal antigens are ordered as well. Infectious disease service is following her as well. Sputum culture and influenza serology were sent as well. Hematology: The patient has sickle cell disease and likely has major component of vasoocclusive crisis contributing to her present condition. Hematology service is following her. She is status post exchange transfusion and might potentially benefit from repeating it. Hemoglobin S percentage is pending with a goal to maintain it below 30%. Possibility of hemophagocytic lymphohistiocytosis will be discussed with hematology as well. Unfortunately, her ferritin level may not be reliable as she had multiple blood transfusions in the past. Renal: We will touch base with renal service about another dialysis session which may help with optimizing her fluid balance and wean her off mechanical ventilation. We will continue to target euvolemia, glycemia, normothermia, and oxygen saturation more than 90%. We will continue with deep venous thrombosis and gastrointestinal prophylaxis. ccm time 40 min Rene Newton MD MTDMckayla
[2016-11-20] MEDS ORDERED: Midazolam 2 MG/2 ML VIAL IVP ONE (17:24)
[2016-11-20] MEDS: Midazolam 2 MG/2 ML VIAL IVP PRN ×3 (17:27→23:37)
[2016-11-20] MEDS: Cefepime 1gm in NS 100ml 1 GM/100 ML BAG IVPB SCH ×2 (17:48→22:37)
[2016-11-20] MEDS ORDERED: Albumin Human 5% (12.5 gm/250 ml) IV ONE (18:51)
[2016-11-20 20:43] LABS: BASO # 0.09 K/mm3 (0.0-2.0); BASO % 0.6 % (0.0-3.0); HEMATOCRIT 25.5 % (36.0-48.0); MEAN CELL VOLUME 83.9 fl (80.0-105.0); MEAN CORPUSCULAR HEMOGLOBIN 29.6 pg (25.0-35.0); MEAN CORPUSCULAR HGB CONC 35.3 g/dl (31.0-37.0); MEAN PLATELET VOLUME 10.3 fl (7.0-11.0); RED CELL DISTRIBUTION WIDTH 14.9 % (11.5-14.5); WHITE BLOOD COUNT 13.9 10^3/ul (4.5-11.0)
[2016-11-20 20:47] LABS: VENOUS BLOOD GAS BASE EXCESS 0.6 mmol/L (0.0-2.0); VENOUS BLOOD PH 7.36 (7.32-7.43)
[2016-11-20 20:53] LABS: ALB/GLOB RATIO 0.9 (1.1-1.8); POTASSIUM 3.3 mmol/L (3.6-5.0); TOTAL PROTEIN 5.2 g/dL (5.8-8.3)
[2016-11-20 20:56] LABS: CALCIUM 6.5 mg/dL (8.4-10.5)
[2016-11-20 21:11] LABS: PLATELET COUNT 15 10^3/uL (120.0-450.0)
[2016-11-21] MEDS: Lactulose 10 gm/15 ml (Rectal Use) PR SCH ×4 (01:09→18:49)
[2016-11-21 01:18] LABS: VENOUS BLOOD GAS BASE EXCESS 1.8 mmol/L (0.0-2.0); VENOUS BLOOD PH 7.34 (7.32-7.43)
[2016-11-21] MEDS: Albuterol-Ipratrop 3 mg / 0.5 (3 ml) UD IH SCH ×4 (02:20→19:40)
[2016-11-21] MEDS: NOREPINEPHRINE BIT/0.9 % NACL 4 MG/250 ML BAG IV PRN (02:37)
--- NOTE | 2016-11-21 04:48 | CP.PCM.PN ---
Subjective - Date & Time of Evaluation Date of Evaluation: 11/20/16 Time of Evaluation: 10:00 - Subjective Subjective: Patient sedated; s/p EGD yesterday showing blood and visible vessel in upper third of esoghagus that was cauterized; off vasopressors and started on dobutamine; Objective - Vital Signs/Intake and Output Vital Signs (last 24 hours): Temp Pulse Resp BP Pulse Ox 97.9 F 99 H 17 111/77 100 11/21/16 00:00 11/21/16 03:00 11/20/16 22:47 11/21/16 02:45 11/21/16 02:45 Intake and Output: 11/20/16 11/21/16 18:59 06:59 Intake Total 22 503 Balance 22 503 - Medications Medications: Current Medications Albuterol/Ipratropium (Duoneb 3 Mg/0.5 Mg (3 Ml) Ud) 3 ml IH [id number] [facility] Last Admin: 11/21/16 02:20 Dose: 3 ml Budesonide (Pulmicort Respules) 0.5 mg IH [id number] [facility] Last Admin: 11/20/16 20:10 Dose: 0.5 mg Ergocalciferol (Drisdol 50,000 Intl Units Cap) 1 cap PO QWK [facility] Last Admin: 11/19/16 14:47 Dose: Not Given Folic Acid (Folic Acid) 1 mg PO DAILY [facility] Last Admin: 11/20/16 09:28 Dose: Not Given Furosemide (Lasix) 40 mg IVP DAILY [facility] Last Admin: 11/17/16 09:00 Dose: 40 mg Heparin Sodium (Porcine) (Heparin) 5,000 units SC Q12 [facility] PRN Reason: Protocol Last Admin: 11/16/16 21:44 Dose: Not Given Hydrocortisone Sodium Succinate (Solu-Cortef) 50 mg IVP Q8 [facility] Last Admin: 11/20/16 21:53 Dose: 50 mg Hydromorphone HCl (Dilaudid) 1 mg IVP Q3H PRN PRN Reason: Pain, severe (8-10) Last Admin: 11/20/16 16:02 Dose: 1 mg Hydroxyurea (Hydrea) 500 mg PO DAILY [facility] Last Admin: 11/20/16 09:36 Dose: Not Given Vancomycin HCl (Vancomycin 1gm) 1 gm in 250 mls @ 167 mls/hr IVPB DAILY [facility] PRN Reason: Protocol Last Admin: 11/20/16 10:12 Dose: 167 mls/hr Cefepime HCl (Maxipime 1gm) 1 gm in 100 mls @ 100 mls/hr IVPB Q24H [facility] PRN Reason: Protocol Last Admin: 11/20/16 22:37 Dose: 100 mls/hr Dextrose (Dextrose 10% In Water) 500 mls @ 20 mls/hr IV .Q24H [facility] Last Admin: 11/20/16 17:46 Dose: 20 mls/hr Propofol (Diprivan) 1,000 mg in 100 mls @ 2.259 mls/hr IV .Q24H PRN; Protocol; 5 MCG/KG/MIN PRN Reason: TITRATE PER MD ORDER Last Admin: 11/20/16 03:59 Dose: 50 mcg/kg/min, 22.589 mls/hr NOREPINEPHRINE BIT/0.9 % NACL (Levophed 4 Mg/ 250 Ml Ns Premixed) 4 mg in 250 mls @ 15 mls/hr IV .[id number] PRN; Protocol; 4 MCG/MIN PRN Reason: TITRATE PER MD ORDER Last Titration: 11/21/16 03:00 Dose: 5 mcg/min, 18.75 mls/hr Vasopressin 20 units/ Dextrose 101 mls @ 12.12 mls/hr IV .Q8H20M [facility]; 0.04 U/ MIN PRN Reason: Protocol Last Admin: 11/19/16 22:39 Dose: 12.12 mls/hr Metronidazole (Flagyl) 500 mg in 100 mls @ 100 mls/hr IVPB Q8 [facility] PRN Reason: Protocol Last Admin: 11/20/16 21:54 Dose: 100 mls/hr Dobutamine HCl/Dextrose (Dobutamine/Dextrose 5% 500mg/250ml) 500 mg in 250 mls @ 5.647 mls/hr IV .Q24H PRN; Protocol; 2.5 MCG/KG/MIN PRN Reason: TITRATE PER PROTOCOL Last Admin: 11/20/16 07:57 Dose: 5.647 mls/hr Calcium Gluconate 1,000 mg/ (Sodium Chloride) 110 mls @ 110 mls/hr IVPB ONCE ONE Stop: 11/21/16 05:26 Lactic Acid (Lac-Hydrin 12% Cream (140 G)) 0 ea TOP DAILY PRN PRN Reason: Wound Lactulose (Generlac) 200 gm DC Q6 [facility] Stop: 11/24/16 12:01 Last Admin: 11/21/16 01:09 Dose: 200 gm Midazolam HCl (Versed Inj) 1 mg IVP Q3H PRN PRN Reason: sedation Last Admin: 11/20/16 23:37 Dose: 1 mg Multivitamins/Minerals (Therapeutic-M Tab) 1 tab PO DAILY [facility] Last Admin: 11/20/16 09:36 Dose: Not Given Non-Formulary Medication (Mometasone [Asmanex Twisthaler 110 Mcg]) 100 mcg IH BID [facility] Last Admin: 11/15/16 21:20 Dose: Not Given Pantoprazole Sodium (Protonix Inj) 40 mg IVP Q12 [facility] Last Admin: 11/20/16 21:54 Dose: 40 mg Rifaximin (Xifaxan) 550 mg PO BID [facility] PRN Reason: Protocol Last Admin: 11/19/16 14:57 Dose: Not Given - Labs Labs: 11/20/16 20:31 11/20/16 20:31 PT 22.7 Seconds (9.9-11.8) H 11/20/16 06:00 INR 2.05 (0.93-1.08) H 11/20/16 06:00 APTT 83.0 Seconds (23.7-30.8) H* 11/19/16 10:00 - Constitutional Appears: Toxic - Eye Exam Eye Exam: Scleral icterus - ENT Exam ENT Exam: Mucous Membranes Moist - Respiratory Exam Respiratory Exam: Rales, Rhonchi - Cardiovascular Exam Cardiovascular Exam: REGULAR RHYTHM, +S1, +S2 - GI/Abdominal Exam GI & Abdominal Exam: Distended, Soft - Extremities Exam Additional comments: markedly edematous; - Neurological Exam Additional comments: sedated; Assessment and Plan (1) Acute renal failure Assessment & Plan: Likely ATN but cannot rule out vaso-occlusive etiology initially; received HD today mainly for UF in the setting of possible decompensated CHF, able to only achieve 1.1 L UF in setting of hypotension despite being restarted on vasopressin for HD; -will attempt UF session tomorrow -avoid nephrotoxic agents (no NSAIDS ie. ketorolac) Status: Acute (2) Acute hypoxemic respiratory failure Status: Acute (3) Acute exacerbation of CHF (congestive heart failure) Status: Acute (4) Acute liver failure Status: Acute (5) Sickle cell anemia with crisis Assessment & Plan: s/p red cell exchange today in setting of multi-organ failure; low Ca likely due to both citrate chelation as well as bicarb administration; -stop bicarb drip, will correct acidosis with HD -giving calcium gluconate 1 g Status: Acute
[2016-11-21] MEDS: metroNIDAZOLE IV 500 mg/100 ml 500 MG/100 ML BAG IVPB SCH ×3 (05:09→22:21)
[2016-11-21 06:01] LABS: ARTERIAL BLOOD GAS HCO3 22.7 mmol/L (21-28); ARTERIAL BLOOD GAS PH 7.42 (7.35-7.45)
[2016-11-21] MEDS: Midazolam 2 MG/2 ML VIAL IVP PRN (06:08)
[2016-11-21 06:41] LABS: VENOUS BLOOD PH 7.37 (7.32-7.43)
[2016-11-21 06:43] LABS: MEAN CELL VOLUME 80.9 fl (80.0-105.0); MEAN CORPUSCULAR HEMOGLOBIN 31.5 pg (25.0-35.0); MEAN CORPUSCULAR HGB CONC 38.9 g/dl (31.0-37.0); MEAN PLATELET VOLUME 8.5 fl (7.0-11.0); PLATELET COUNT 93 10^3/uL (120.0-450.0); RED CELL DISTRIBUTION WIDTH 15.4 % (11.5-14.5); WHITE BLOOD COUNT 21.3 10^3/ul (4.5-11.0)
--- NOTE | 2016-11-21 07:11 | CP.CCUPN ---
<Johnny Gonzales - Last Filed: 11/21/16 09:51> CCU Subjective - Physician Review Subjective (Free Text): 11/21/16 07:08 Patient seen and examined at bedside in the ICU. Overnight, was weaned down off pressor support, now off Vasopressin and Levophed completely. Remains off sedation with propofol, but as per nursing, did require 3 doses of versed throughout the evening and overnight when she would become agitated and bite down on her endotrachial tube. This AM, patient remains mildly responsive to painful stimuli and loud verbal stimuli, but is otherwise unresponsive, and not following commands. CCU Objective - Vital Signs / Intake & Output Vital Signs (Last 4 hours): Vital Signs Pulse BP Pulse Ox 11/21/16 06:46 103 H 104/61 100 11/21/16 06:39 104 H 11/21/16 06:38 102 H 11/21/16 06:37 101 H 11/21/16 06:34 100 H 11/21/16 06:33 98 H 11/21/16 06:32 100 H 11/21/16 06:31 101 H 99/76 L 11/21/16 06:29 102 H 11/21/16 06:22 98 H 11/21/16 06:15 100 H 122/74 97 11/21/16 06:00 107 H 124/62 99 11/21/16 05:48 103 H 11/21/16 05:47 98 H 11/21/16 05:46 101 H 11/21/16 05:45 102 H 117/88 100 11/21/16 05:30 102 H 103/72 100 11/21/16 05:15 101 H 113/81 100 11/21/16 05:00 100 H 109/71 100 11/21/16 04:45 98 H 115/66 100 11/21/16 04:30 101 H 109/66 100 11/21/16 04:15 100 H 118/64 98 11/21/16 04:00 100 H 114/66 100 11/21/16 03:45 100 H 114/70 100 11/21/16 03:30 99 H 121/64 100 11/21/16 03:15 98 H 116/72 100 Intake and Output (Last 8hrs): Intake & Output 11/20/16 11/21/16 11/21/16 22:59 06:59 14:59 Intake Total 512 520 Output Total 170 Balance 512 350 Intake: IV 222 520 D10W 240 Left Femoral 67 right chest wall 200 Blood Product 290 Apheresis Plts Acda Lr 290 Irr Unit [id number] Output: Urine 170 2-way Urethral 170 - Physical Exam Head: Positive for: Atraumatic, Normocephalic. Negative for: Ecchymosis, Abrasion, Laceration Pupils: Positive for: PERRL, Sluggish. Negative for: Non-Reactive Extroacular Muscles: Positive for: Other (not following commands, some avoidance of direct light challenge for PERRL assessment; exhibiting some spontaneous movement of eyes and spontaneous eyelid openning) Conjunctiva: Positive for: Icteric. Negative for: Normal, Injected Mouth: Positive for: Other (dried/crusted blood at lip line, but no clear sites of bleeding/oozing noted, ET in place). Negative for: Moist Mucous Membranes, Normal Tounge (small lac on underside of tongue), Normal Teeth (poor dentition) Pharnyx: Positive for: Other (some visualization of pharynx during NGT placement ; no gross bleeding/oozing sites, no masses noted) Nose (External): Positive for: Atraumatic, Other (no expistaxis or oozing/ crusting around the nares). Negative for: Abrasion, Contusion, Laceration Nose (Internal): Negative for: Epistaxis Neck: Positive for: Trachea Midline. Negative for: JVD Respiratory/Chest: Positive for: Good Air Exchange, Rhonchi, Other (R port in place- clean and dry, covered with bandaging; intubated and mechanically ventilated). Negative for: Clear to Auscultation (Mild ronchi in all haider, most prominent at expiration), Respiratory Distress, Accessory Muscle Use, Wheezes, Decreased Breath Sounds, Rales, Retracting Cardiovascular: Positive for: Normal S1, S2, Tachycardic (Rapid rate, regular rhythm). Negative for: Regular Rate and Rhythm, Murmurs, Bradycardic Abdomen: Positive for: Distention (increased firmness, some distention, but not rigid). Negative for: Tenderness, Normal Bowel Sounds (decreased and distant bowel sounds), Peritoneal Signs, Rebound, Guarding, Hernias Back: Positive for: Normal Inspection Upper Extremity: Positive for: Edema (Moderated edematous in bilateral UE, +2 pitting edema extending from hands to mid-humerus), Swelling, Temperature Abnormalties (mild coolness to palpation at bilateral hands). Negative for: Normal Inspection, Cyanosis, NORMAL PULSES (faintly palpable radials B/L ( possibly 2/2 edema) but clearly ausculated radial pulse with Duplex) Lower Extremity: Positive for: Edema (+2-3 pitting edema in bilateral LE extending from feet to mid-thigh), Temperature Abnormalties (mild coolness to palpation at bilateral feet). Negative for: Normal Inspection (Left groin with HD TLC in place- dressing with saturated sanginous strike through, site continues to ooze), NORMAL PULSES (unable to palpate bilateral dorsalis pedis, likely 2/2 edema, but clearly demonstrated with bedside doppler), Cyanosis, Erythema Neurological: Positive for: Other (bilateral Plantar reflexes intact, some spontaneous eye openings). Negative for: GCS=15 (intubated, off sedation, score of 9 (E4 V1t M4)), CN II-XII Intact, Speech Normal, Motor Func Grossly Intact Skin: Positive for: Warm (except as documented in extremities exam), Dry, Normal Color. Negative for: Rashes Psychiatric: Positive for: Other (intubated, no longer sedated but non-verbal and not following commands so unable to assess) - Medications Active Medications: Active Medications Generic Name Dose Route Start Last Admin Trade Name Freq PRN Reason Stop Dose Admin Albuterol/Ipratropium 3 ml 11/16/16 14:00 11/21/16 02:20 Duoneb 3 Mg/0.5 Mg (3 Ml) Ud IH 3 ml [id number] ARLETTE Administration Budesonide 0.5 mg 11/16/16 20:00 11/20/16 20:10 Pulmicort Respules IH 0.5 mg [id number] ARLETTE Administration Ergocalciferol 1 cap 11/12/16 10:00 11/19/16 14:47 Drisdol 50,000 Intl Units Cap PO Not Given QWK ARLETTE Folic Acid 1 mg 11/12/16 10:00 11/20/16 09:28 Folic Acid PO Not Given DAILY ARLETTE Furosemide 40 mg 11/16/16 10:00 11/17/16 09:00 Lasix IVP 40 mg DAILY ARLETTE Administration Heparin Sodium (Porcine) 5,000 units 11/13/16 01:15 11/16/16 21:44 Heparin SC Not Given Q12 ARLETTE Protocol Hydrocortisone Sodium Succinate 50 mg 11/19/16 07:15 11/21/16 05:10 Solu-Cortef IVP 50 mg Q8 ARLETTE Administration Hydromorphone HCl 1 mg 11/15/16 11:24 11/20/16 16:02 Dilaudid IVP 1 mg Q3H PRN Administration Pain, severe (8-10) Hydroxyurea 500 mg 11/12/16 10:00 11/20/16 09:36 Hydrea PO Not Given DAILY ARLETTE Vancomycin HCl 1 gm in 250 mls @ 167 mls/hr 11/15/16 11:30 11/20/16 10:12 Vancomycin 1gm IVPB 167 mls/hr DAILY ARLETTE Administration Protocol Cefepime HCl 1 gm in 100 mls @ 100 mls/hr 11/15/16 13:15 11/20/16 22:37 Maxipime 1gm IVPB 100 mls/hr Q24H ARLETTE Administration Protocol Dextrose 500 mls @ 20 mls/hr 11/16/16 18:45 11/20/16 17:46 Dextrose 10% In Water IV 20 mls/hr .Q24H ARLETTE Administration Propofol 1,000 mg in 100 mls @ 2.259 mls/hr 11/17/16 20:53 11/20/16 03:59 Diprivan IV 50 mcg/kg/min .Q24H PRN 22.589 mls/hr TITRATE PER MD ORDER Administration Protocol 5 MCG/KG/MIN NOREPINEPHRINE BIT/0.9 % NACL 4 mg in 250 mls @ 15 mls/hr 11/18/16 06:33 03:00 Levophed 4 Mg/ 250 Ml Ns Premixed IV 5 mcg/min .[id number] PRN 18.75 mls/hr TITRATE PER MD ORDER Titration Protocol 4 MCG/MIN Vasopressin 20 units/ Dextrose 101 mls @ 12.12 mls/hr 11/19/16 07:15 22:39 IV 12.12 mls/hr .[id number] ARLETTE Administration Protocol 0.04 U/MIN Metronidazole 500 mg in 100 mls @ 100 mls/hr 11/19/16 19:15 11/21/16 05:09 Flagyl IVPB 100 mls/hr Q8 ARLETTE Administration Protocol Dobutamine HCl/Dextrose 500 mg in 250 mls @ 5.647 mls/hr 11/20/16 07:32 11/20 07:57 Dobutamine/Dextrose 5% 500mg/250ml IV 5.647 mls/hr .Q24H PRN Administration TITRATE PER PROTOCOL Protocol 2.5 MCG/KG/MIN Lactic Acid 0 ea 11/13/16 09:22 Lac-Hydrin 12% Cream (140 G) TOP DAILY PRN Wound Lactulose 200 gm 11/19/16 12:00 11/21/16 05:10 Generlac TN 11/24/16 12:01 200 gm Q6 ARLETTE Administration Midazolam HCl 1 mg 11/17/16 17:29 11/21/16 06:08 Versed Inj IVP 1 mg Q3H PRN Administration sedation Multivitamins/Minerals 1 tab 11/12/16 11:30 11/20/16 09:36 Therapeutic-M Tab PO Not Given DAILY ARLETTE Non-Formulary Medication 100 mcg 11/13/16 10:00 11/15/16 21:20 Mometasone [Asmanex Twisthaler 110 Mcg] IH Not Given BID ARLETTE Pantoprazole Sodium 40 mg 11/19/16 22:00 11/20/16 21:54 Protonix Inj IVP 40 mg Q12 ARLETTE Administration Rifaximin 550 mg 11/18/16 10:15 11/19/16 14:57 Xifaxan PO Not Given BID [facility] Protocol - Patient Studies Lab Studies: Microbiology Studies 11/19/16 15:44 C. difficile Antigen & Toxin A,B (M - Final Stool Lab Studies 11/21/16 11/21/16 11/21/16 Range/Units 06:00 05:45 00:40 WBC (4.5-11.0) 10^3/ul RBC (3.5-6.1) 10^6/uL Hgb (12.0-16.0) g/dL Hct (36.0-48.0) % MCV (80.0-105.0) fl MCH (25.0-35.0) pg MCHC (31.0-37.0) g/dl RDW (11.5-14.5) % Plt Count (120.0-450.0) 10^3/uL MPV (7.0-11.0) fl Baso % (Auto) (0.0-3.0) % Baso # (0.0-2.0) K/mm3 Corrected WBC (Man) (4.5-11.0) K/mm3 Neutrophils % (Manual) (50.0-70.0) % Lymphocytes % (Manual) (22.0-35.0) % Monocytes % (Manual) (1.0-6.0) % Metamyelocytes % % Myelocytes % % Nucleated RBC % % Platelet Evaluation (NORMAL) Polychromasia Hypochromasia Poikilocytosis (manual Anisocytosis (manual) Spherocytes Sickle Cells Tear Drop Cells Ovalocytes PT (9.9-11.8) Seconds INR (0.93-1.08) pCO2 35 (35-45) mm/Hg pO2 64 H 168.0 H 56 H (80-100) mm/Hg HCO3 22.7 (21-28) mmol/L ABG pH 7.42 (7.35-7.45) ABG Total CO2 23.8 (22-28) mmol.L ABG O2 Saturation 101.0 H (95-98) % ABG Base Excess -1.3 (-2.0-3.0) mmol/L ABG Potassium 2.8 L (3.6-5.2) mmol/L VBG pH 7.37 7.34 (7.32-7.43) VBG pCO2 53.0 53.0 (40-60) VBG HCO3 30.6 H 28.6 H (21-28) mmol/l VBG Total CO2 32.2 H 30.2 H (22-28) mmol.L VBG O2 Sat (Calc) 97.9 H 95.8 H (40-65) % VBG Base Excess 4.0 H 1.8 (0.0-2.0) mmol/L VBG Potassium 3.1 L 3.2 L (3.6-5.2) mmol/L Glucose 159 H 130 H 184 H (65-105) mg/dl Lactate 4.8 H* 3.7 H 5.0 H* (0.7-2.1) mmol/L Mechanical Rate FiO2 21.0 40.0 21.0 % Tidal Volume PEEP Sodium 134.0 138.0 133.0 (132-148) mmol/L Potassium (3.6-5.0) mmol/L Chloride 97.0 L 108.0 H 97.0 L (98-107) mmol/L Carbon Dioxide (21-33) mmol/L Anion Gap (10-20) BUN (7-21) mg/dL Creatinine (0.5-1.4) mg/dL Est GFR ( Amer) Est GFR (Non-Af Amer) POC Glucose (mg/dL) (65-110) mg/dL Random Glucose (70-110) mg/dL Calcium (8.4-10.5) mg/dL Phosphorus (2.5-4.5) mg/dL Magnesium (1.7-2.2) mg/dL Total Bilirubin (0.2-1.3) mg/dL AST (14-36) U/L ALT (7-56) U/L Alkaline Phosphatase (38-126) U/L Total Creatine Kinase (35-230) U/L Total Protein (5.8-8.3) g/dL Albumin (3.0-4.8) g/dL Globulin gm/dL Albumin/Globulin Ratio (1.1-1.8) Arterial Blood Potassium 2.8 L (3.6-5.2) mmol/L Venous Blood Potassium 3.1 L 3.2 L (3.6-5.2) mmol/L Influenza Typ A,B (EIA) (NEGATIVE) Ur L.pneumophila Ag (NEGATIVE) Blood Type Antibody Screen Crossmatch BBK History Checked 11/20/16 11/20/16 11/20/16 Range/Units 20:31 20:31 20:31 WBC 13.9 H D (4.5-11.0) 10^3/ul RBC 3.04 L (3.5-6.1) 10^6/uL Hgb 9.0 L D (12.0-16.0) g/dL Hct 25.5 L (36.0-48.0) % MCV 83.9 (80.0-105.0) fl MCH 29.6 (25.0-35.0) pg MCHC 35.3 (31.0-37.0) g/dl RDW 14.9 H (11.5-14.5) % Plt Count 15 L* (120.0-450.0) 10^3/uL MPV 10.3 (7.0-11.0) fl Baso % (Auto) 0.6 (0.0-3.0) % Baso # 0.09 (0.0-2.0) K/mm3 Corrected WBC (Man) (4.5-11.0) K/mm3 Neutrophils % (Manual) (50.0-70.0) % Lymphocytes % (Manual) (22.0-35.0) % Monocytes % (Manual) (1.0-6.0) % Metamyelocytes % % Myelocytes % % Nucleated RBC % % Platelet Evaluation (NORMAL) Polychromasia Hypochromasia Poikilocytosis (manual Anisocytosis (manual) Spherocytes Sickle Cells Tear Drop Cells Ovalocytes PT (9.9-11.8) Seconds INR (0.93-1.08) pCO2 (35-45) mm/Hg pO2 22 L (80-100) mm/Hg HCO3 (21-28) mmol/L ABG pH (7.35-7.45) ABG Total CO2 (22-28) mmol.L ABG O2 Saturation (95-98) % ABG Base Excess (-2.0-3.0) mmol/L ABG Potassium (3.6-5.2) mmol/L VBG pH 7.36 (7.32-7.43) VBG pCO2 47.0 (40-60) VBG HCO3 26.6 (21-28) mmol/l VBG Total CO2 28.0 (22-28) mmol.L VBG O2 Sat (Calc) 73.7 H (40-65) % VBG Base Excess 0.6 (0.0-2.0) mmol/L VBG Potassium 3.4 L (3.6-5.2) mmol/L Glucose 197 H (65-105) mg/dl Lactate 6.4 H* (0.7-2.1) mmol/L Mechanical Rate FiO2 21.0 % Tidal Volume PEEP Sodium 133.0 134 (132-148) mmol/L Potassium 3.3 L (3.6-5.0) mmol/L Chloride 96.0 L 93 L (98-107) mmol/L Carbon Dioxide 26 (21-33) mmol/L Anion Gap 18 (10-20) BUN 37 H (7-21) mg/dL Creatinine 1.7 H (0.5-1.4) mg/dL Est GFR ( Amer) 41 Est GFR (Non-Af Amer) 34 POC Glucose (mg/dL) (65-110) mg/dL Random Glucose 173 H (70-110) mg/dL Calcium 6.5 L* (8.4-10.5) mg/dL Phosphorus (2.5-4.5) mg/dL Magnesium (1.7-2.2) mg/dL Total Bilirubin 19.0 H* (0.2-1.3) mg/dL AST 1113 H (14-36) U/L ALT 184 H (7-56) U/L Alkaline Phosphatase 512 H D (38-126) U/L Total Creatine Kinase 165 (35-230) U/L Total Protein 5.2 L (5.8-8.3) g/dL Albumin 2.5 L (3.0-4.8) g/dL Globulin 2.7 gm/dL Albumin/Globulin Ratio 0.9 L (1.1-1.8) Arterial Blood Potassium (3.6-5.2) mmol/L Venous Blood Potassium 3.4 L (3.6-5.2) mmol/L Influenza Typ A,B (EIA) (NEGATIVE) Ur L.pneumophila Ag (NEGATIVE) Blood Type Antibody Screen Crossmatch BBK History Checked 11/20/16 11/20/16 11/20/16 Range/Units 11:27 08:28 08:28 WBC (4.5-11.0) 10^3/ul RBC (3.5-6.1) 10^6/uL Hgb (12.0-16.0) g/dL Hct (36.0-48.0) % MCV (80.0-105.0) fl MCH (25.0-35.0) pg MCHC (31.0-37.0) g/dl RDW (11.5-14.5) % Plt Count (120.0-450.0) 10^3/uL MPV (7.0-11.0) fl Baso % (Auto) (0.0-3.0) % Baso # (0.0-2.0) K/mm3 Corrected WBC (Man) (4.5-11.0) K/mm3 Neutrophils % (Manual) (50.0-70.0) % Lymphocytes % (Manual) (22.0-35.0) % Monocytes % (Manual) (1.0-6.0) % Metamyelocytes % % Myelocytes % % Nucleated RBC % % Platelet Evaluation (NORMAL) Polychromasia Hypochromasia Poikilocytosis (manual Anisocytosis (manual) Spherocytes Sickle Cells Tear Drop Cells Ovalocytes PT (9.9-11.8) Seconds INR (0.93-1.08) pCO2 (35-45) mm/Hg pO2 (80-100) mm/Hg HCO3 (21-28) mmol/L ABG pH (7.35-7.45) ABG Total CO2 (22-28) mmol.L ABG O2 Saturation (95-98) % ABG Base Excess (-2.0-3.0) mmol/L ABG Potassium (3.6-5.2) mmol/L VBG pH (7.32-7.43) VBG pCO2 (40-60) VBG HCO3 (21-28) mmol/l VBG Total CO2 (22-28) mmol.L VBG O2 Sat (Calc) (40-65) % VBG Base Excess (0.0-2.0) mmol/L VBG Potassium (3.6-5.2) mmol/L Glucose (65-105) mg/dl Lactate (0.7-2.1) mmol/L Mechanical Rate FiO2 % Tidal Volume PEEP Sodium 132 (132-148) mmol/L Potassium 3.7 (3.6-5.0) mmol/L Chloride 90 L (98-107) mmol/L Carbon Dioxide 22 (21-33) mmol/L Anion Gap 24 H (10-20) BUN 39 H (7-21) mg/dL Creatinine 2.0 H (0.5-1.4) mg/dL Est GFR ( Amer) 34 Est GFR (Non-Af Amer) 28 POC Glucose (mg/dL) 198 H (65-110) mg/dL Random Glucose 188 H (70-110) mg/dL Calcium 6.7 L* (8.4-10.5) mg/dL Phosphorus (2.5-4.5) mg/dL Magnesium (1.7-2.2) mg/dL Total Bilirubin 20.1 H* (0.2-1.3) mg/dL AST 1478 H (14-36) U/L ALT 230 H (7-56) U/L Alkaline Phosphatase 651 H (38-126) U/L Total Creatine Kinase (35-230) U/L Total Protein 5.7 L (5.8-8.3) g/dL Albumin 2.6 L (3.0-4.8) g/dL Globulin 3.1 gm/dL Albumin/Globulin Ratio 0.8 L (1.1-1.8) Arterial Blood Potassium (3.6-5.2) mmol/L Venous Blood Potassium (3.6-5.2) mmol/L Influenza Typ A,B (EIA) Negative for flu a/b (NEGATIVE) Ur L.pneumophila Ag (NEGATIVE) Blood Type Antibody Screen Crossmatch BBK History Checked 11/20/16 11/20/16 11/20/16 Range/Units 08:00 07:50 07:37 WBC (4.5-11.0) 10^3/ul RBC (3.5-6.1) 10^6/uL Hgb (12.0-16.0) g/dL Hct (36.0-48.0) % MCV (80.0-105.0) fl MCH (25.0-35.0) pg MCHC (31.0-37.0) g/dl RDW (11.5-14.5) % Plt Count (120.0-450.0) 10^3/uL MPV (7.0-11.0) fl Baso % (Auto) (0.0-3.0) % Baso # (0.0-2.0) K/mm3 Corrected WBC (Man) (4.5-11.0) K/mm3 Neutrophils % (Manual) (50.0-70.0) % Lymphocytes % (Manual) (22.0-35.0) % Monocytes % (Manual) (1.0-6.0) % Metamyelocytes % % Myelocytes % % Nucleated RBC % % Platelet Evaluation (NORMAL) Polychromasia Hypochromasia Poikilocytosis (manual Anisocytosis (manual) Spherocytes Sickle Cells Tear Drop Cells Ovalocytes PT (9.9-11.8) Seconds INR (0.93-1.08) pCO2 35 (35-45) mm/Hg pO2 123.0 H (80-100) mm/Hg HCO3 21.7 (21-28) mmol/L ABG pH 7.40 (7.35-7.45) ABG Total CO2 22.8 (22-28) mmol.L ABG O2 Saturation 101.0 H (95-98) % ABG Base Excess -2.5 L (-2.0-3.0) mmol/L ABG Potassium 3.1 L (3.6-5.2) mmol/L VBG pH (7.32-7.43) VBG pCO2 (40-60) VBG HCO3 (21-28) mmol/l VBG Total CO2 (22-28) mmol.L VBG O2 Sat (Calc) (40-65) % VBG Base Excess (0.0-2.0) mmol/L VBG Potassium (3.6-5.2) mmol/L Glucose 191 H (65-105) mg/dl Lactate 7.7 H* (0.7-2.1) mmol/L Mechanical Rate 15 FiO2 50.0 % Tidal Volume 400 PEEP 5 Sodium 133.0 (132-148) mmol/L Potassium (3.6-5.0) mmol/L Chloride 98.0 (98-107) mmol/L Carbon Dioxide (21-33) mmol/L Anion Gap (10-20) BUN (7-21) mg/dL Creatinine (0.5-1.4) mg/dL Est GFR ( Amer) Est GFR (Non-Af Amer) POC Glucose (mg/dL) 211 H (65-110) mg/dL Random Glucose (70-110) mg/dL Calcium (8.4-10.5) mg/dL Phosphorus (2.5-4.5) mg/dL Magnesium (1.7-2.2) mg/dL Total Bilirubin (0.2-1.3) mg/dL AST (14-36) U/L ALT (7-56) U/L Alkaline Phosphatase (38-126) U/L Total Creatine Kinase (35-230) U/L Total Protein (5.8-8.3) g/dL Albumin (3.0-4.8) g/dL Globulin gm/dL Albumin/Globulin Ratio (1.1-1.8) Arterial Blood Potassium 3.1 L (3.6-5.2) mmol/L Venous Blood Potassium (3.6-5.2) mmol/L Influenza Typ A,B (EIA) (NEGATIVE) Ur L.pneumophila Ag Negative (NEGATIVE) Blood Type Antibody Screen Crossmatch BBK History Checked 11/20/16 11/20/16 11/20/16 Range/Units 06:00 06:00 06:00 WBC 33.6 H* (4.5-11.0) 10^3/ul RBC 2.03 L (3.5-6.1) 10^6/uL Hgb 6.9 L* (12.0-16.0) g/dL Hct 17.5 L* (36.0-48.0) % MCV 86.2 (80.0-105.0) fl MCH 34.0 (25.0-35.0) pg MCHC 39.4 H (31.0-37.0) g/dl RDW 17.1 H (11.5-14.5) % Plt Count 62 L (120.0-450.0) 10^3/uL MPV 11.1 H (7.0-11.0) fl Baso % (Auto) 0.4 (0.0-3.0) % Baso # 0.14 (0.0-2.0) K/mm3 Corrected WBC (Man) 7.0 (4.5-11.0) K/mm3 Neutrophils % (Manual) 78 H (50.0-70.0) % Lymphocytes % (Manual) 15 L (22.0-35.0) % Monocytes % (Manual) 1 (1.0-6.0) % Metamyelocytes % 2 % Myelocytes % 4 % Nucleated RBC % 380 % Platelet Evaluation Low (NORMAL) Polychromasia 1+ Hypochromasia 3+ Poikilocytosis (manual 1+ Anisocytosis (manual) 2+ Spherocytes Slight Sickle Cells Slight Tear Drop Cells Slight Ovalocytes Slight PT 22.7 H (9.9-11.8) Seconds INR 2.05 H (0.93-1.08) pCO2 (35-45) mm/Hg pO2 (80-100) mm/Hg HCO3 (21-28) mmol/L ABG pH (7.35-7.45) ABG Total CO2 (22-28) mmol.L ABG O2 Saturation (95-98) % ABG Base Excess (-2.0-3.0) mmol/L ABG Potassium (3.6-5.2) mmol/L VBG pH (7.32-7.43) VBG pCO2 (40-60) VBG HCO3 (21-28) mmol/l VBG Total CO2 (22-28) mmol.L VBG O2 Sat (Calc) (40-65) % VBG Base Excess (0.0-2.0) mmol/L VBG Potassium (3.6-5.2) mmol/L Glucose (65-105) mg/dl Lactate (0.7-2.1) mmol/L Mechanical Rate FiO2 % Tidal Volume PEEP Sodium 132 (132-148) mmol/L Potassium 3.7 (3.6-5.0) mmol/L Chloride 91 L (98-107) mmol/L Carbon Dioxide 19 L (21-33) mmol/L Anion Gap 26 H (10-20) BUN 38 H (7-21) mg/dL Creatinine 2.0 H (0.5-1.4) mg/dL Est GFR ( Amer) 34 Est GFR (Non-Af Amer) 28 POC Glucose (mg/dL) (65-110) mg/dL Random Glucose 188 H (70-110) mg/dL Calcium 6.9 L* (8.4-10.5) mg/dL Phosphorus 7.1 H (2.5-4.5) mg/dL Magnesium 1.8 (1.7-2.2) mg/dL Total Bilirubin 21.2 H* (0.2-1.3) mg/dL AST 1642 H (14-36) U/L ALT 244 H (7-56) U/L Alkaline Phosphatase 719 H (38-126) U/L Total Creatine Kinase (35-230) U/L Total Protein 5.9 (5.8-8.3) g/dL Albumin 2.8 L (3.0-4.8) g/dL Globulin 3.2 gm/dL Albumin/Globulin Ratio 0.9 L (1.1-1.8) Arterial Blood Potassium (3.6-5.2) mmol/L Venous Blood Potassium (3.6-5.2) mmol/L Influenza Typ A,B (EIA) (NEGATIVE) Ur L.pneumophila Ag (NEGATIVE) Blood Type Antibody Screen Crossmatch BBK History Checked 11/19/16 Range/Units 10:05 WBC (4.5-11.0) 10^3/ul RBC (3.5-6.1) 10^6/uL Hgb (12.0-16.0) g/dL Hct (36.0-48.0) % MCV (80.0-105.0) fl MCH (25.0-35.0) pg MCHC (31.0-37.0) g/dl RDW (11.5-14.5) % Plt Count (120.0-450.0) 10^3/uL MPV (7.0-11.0) fl Baso % (Auto) (0.0-3.0) % Baso # (0.0-2.0) K/mm3 Corrected WBC (Man) (4.5-11.0) K/mm3 Neutrophils % (Manual) (50.0-70.0) % Lymphocytes % (Manual) (22.0-35.0) % Monocytes % (Manual) (1.0-6.0) % Metamyelocytes % % Myelocytes % % Nucleated RBC % % Platelet Evaluation (NORMAL) Polychromasia Hypochromasia Poikilocytosis (manual Anisocytosis (manual) Spherocytes Sickle Cells Tear Drop Cells Ovalocytes PT (9.9-11.8) Seconds INR (0.93-1.08) pCO2 (35-45) mm/Hg pO2 (80-100) mm/Hg HCO3 (21-28) mmol/L ABG pH (7.35-7.45) ABG Total CO2 (22-28) mmol.L ABG O2 Saturation (95-98) % ABG Base Excess (-2.0-3.0) mmol/L ABG Potassium (3.6-5.2) mmol/L VBG pH (7.32-7.43) VBG pCO2 (40-60) VBG HCO3 (21-28) mmol/l VBG Total CO2 (22-28) mmol.L VBG O2 Sat (Calc) (40-65) % VBG Base Excess (0.0-2.0) mmol/L VBG Potassium (3.6-5.2) mmol/L Glucose (65-105) mg/dl Lactate (0.7-2.1) mmol/L Mechanical Rate FiO2 % Tidal Volume PEEP Sodium (132-148) mmol/L Potassium (3.6-5.0) mmol/L Chloride (98-107) mmol/L Carbon Dioxide (21-33) mmol/L Anion Gap (10-20) BUN (7-21) mg/dL Creatinine (0.5-1.4) mg/dL Est GFR ( Amer) Est GFR (Non-Af Amer) POC Glucose (mg/dL) (65-110) mg/dL Random Glucose (70-110) mg/dL Calcium (8.4-10.5) mg/dL Phosphorus (2.5-4.5) mg/dL Magnesium (1.7-2.2) mg/dL Total Bilirubin (0.2-1.3) mg/dL AST (14-36) U/L ALT (7-56) U/L Alkaline Phosphatase (38-126) U/L Total Creatine Kinase (35-230) U/L Total Protein (5.8-8.3) g/dL Albumin (3.0-4.8) g/dL Globulin gm/dL Albumin/Globulin Ratio (1.1-1.8) Arterial Blood Potassium (3.6-5.2) mmol/L Venous Blood Potassium (3.6-5.2) mmol/L Influenza Typ A,B (EIA) (NEGATIVE) Ur L.pneumophila Ag (NEGATIVE) Blood Type B POSITIVE Antibody Screen Negative Crossmatch See Detail BBK History Checked Patient has bt Laboratory Results - last 24 hr 11/19/16 11/20/16 11/20/16 10:05 06:00 06:00 WBC 33.6 H* RBC 2.03 L Hgb 6.9 L* Hct 17.5 L* MCV 86.2 MCH 34.0 MCHC 39.4 H RDW 17.1 H Plt Count 62 L MPV 11.1 H Baso % (Auto) 0.4 Baso # 0.14 Corrected WBC (Man) 7.0 Neutrophils % (Manual) 78 H Lymphocytes % (Manual) 15 L Monocytes % (Manual) 1 Metamyelocytes % 2 Myelocytes % 4 Nucleated RBC % 380 Platelet Evaluation Low Polychromasia 1+ Hypochromasia 3+ Poikilocytosis (manual 1+ Anisocytosis (manual) 2+ Spherocytes Slight Sickle Cells Slight Tear Drop Cells Slight Ovalocytes Slight PT 22.7 H INR 2.05 H pCO2 pO2 HCO3 ABG pH ABG Total CO2 ABG O2 Saturation ABG Base Excess ABG Potassium VBG pH VBG pCO2 VBG HCO3 VBG Total CO2 VBG O2 Sat (Calc) VBG Base Excess VBG Potassium Glucose Lactate Mechanical Rate FiO2 Tidal Volume PEEP Sodium Potassium Chloride Carbon Dioxide Anion Gap BUN Creatinine Est GFR ( Amer) Est GFR (Non-Af Amer) POC Glucose (mg/dL) Random Glucose Calcium Phosphorus Magnesium Total Bilirubin AST ALT Alkaline Phosphatase Total Creatine Kinase Total Protein Albumin Globulin Albumin/Globulin Ratio Arterial Blood Potassium Venous Blood Potassium Influenza Typ A,B (EIA) Ur L.pneumophila Ag Blood Type B POSITIVE Antibody Screen Negative Crossmatch See Detail BBK History Checked Patient has bt 11/20/16 11/20/16 11/20/16 06:00 07:37 07:50 WBC RBC Hgb Hct MCV MCH MCHC RDW Plt Count MPV Baso % (Auto) Baso # Corrected WBC (Man) Neutrophils % (Manual) Lymphocytes % (Manual) Monocytes % (Manual) Metamyelocytes % Myelocytes % Nucleated RBC % Platelet Evaluation Polychromasia Hypochromasia Poikilocytosis (manual Anisocytosis (manual) Spherocytes Sickle Cells Tear Drop Cells Ovalocytes PT INR pCO2 35 pO2 123.0 H HCO3 21.7 ABG pH 7.40 ABG Total CO2 22.8 ABG O2 Saturation 101.0 H ABG Base Excess -2.5 L ABG Potassium 3.1 L VBG pH VBG pCO2 VBG HCO3 VBG Total CO2 VBG O2 Sat (Calc) VBG Base Excess VBG Potassium Glucose 191 H Lactate 7.7 H* Mechanical Rate 15 FiO2 50.0 Tidal Volume 400 PEEP 5 Sodium 132 133.0 Potassium 3.7 Chloride 91 L 98.0 Carbon Dioxide 19 L Anion Gap 26 H BUN 38 H Creatinine 2.0 H Est GFR ( Amer) 34 Est GFR (Non-Af Amer) 28 POC Glucose (mg/dL) Random Glucose 188 H Calcium 6.9 L* Phosphorus 7.1 H Magnesium 1.8 Total Bilirubin 21.2 H* AST 1642 H ALT 244 H Alkaline Phosphatase 719 H Total Creatine Kinase Total Protein 5.9 Albumin 2.8 L Globulin 3.2 Albumin/Globulin Ratio 0.9 L Arterial Blood Potassium 3.1 L Venous Blood Potassium Influenza Typ A,B (EIA) Ur L.pneumophila Ag Negative Blood Type Antibody Screen Crossmatch BBK History Checked 11/20/16 11/20/16 11/20/16 08:00 08:28 08:28 WBC RBC Hgb Hct MCV MCH MCHC RDW Plt Count MPV Baso % (Auto) Baso # Corrected WBC (Man) Neutrophils % (Manual) Lymphocytes % (Manual) Monocytes % (Manual) Metamyelocytes % Myelocytes % Nucleated RBC % Platelet Evaluation Polychromasia Hypochromasia Poikilocytosis (manual Anisocytosis (manual) Spherocytes Sickle Cells Tear Drop Cells Ovalocytes PT INR pCO2 pO2 HCO3 ABG pH ABG Total CO2 ABG O2 Saturation ABG Base Excess ABG Potassium VBG pH VBG pCO2 VBG HCO3 VBG Total CO2 VBG O2 Sat (Calc) VBG Base Excess VBG Potassium Glucose Lactate Mechanical Rate FiO2 Tidal Volume PEEP Sodium 132 Potassium 3.7 Chloride 90 L Carbon Dioxide 22 Anion Gap 24 H BUN 39 H Creatinine 2.0 H Est GFR ( Amer) 34 Est GFR (Non-Af Amer) 28 POC Glucose (mg/dL) 211 H Random Glucose 188 H Calcium 6.7 L* Phosphorus Magnesium Total Bilirubin 20.1 H* AST 1478 H ALT 230 H Alkaline Phosphatase 651 H Total Creatine Kinase Total Protein 5.7 L Albumin 2.6 L Globulin 3.1 Albumin/Globulin Ratio 0.8 L Arterial Blood Potassium Venous Blood Potassium Influenza Typ A,B (EIA) Negative for flu a/b Ur L.pneumophila Ag Blood Type Antibody Screen Crossmatch BBK History Checked 11/20/16 11/20/16 11/20/16 11:27 20:31 20:31 WBC 13.9 H D RBC 3.04 L Hgb 9.0 L D Hct 25.5 L MCV 83.9 MCH 29.6 MCHC 35.3 RDW 14.9 H Plt Count 15 L* MPV 10.3 Baso % (Auto) 0.6 Baso # 0.09 Corrected WBC (Man) Neutrophils % (Manual) Lymphocytes % (Manual) Monocytes % (Manual) Metamyelocytes % Myelocytes % Nucleated RBC % Platelet Evaluation Polychromasia Hypochromasia Poikilocytosis (manual Anisocytosis (manual) Spherocytes Sickle Cells Tear Drop Cells Ovalocytes PT INR pCO2 pO2 HCO3 ABG pH ABG Total CO2 ABG O2 Saturation ABG Base Excess ABG Potassium VBG pH VBG pCO2 VBG HCO3 VBG Total CO2 VBG O2 Sat (Calc) VBG Base Excess VBG Potassium Glucose Lactate Mechanical Rate FiO2 Tidal Volume PEEP Sodium 134 Potassium 3.3 L Chloride 93 L Carbon Dioxide 26 Anion Gap 18 BUN 37 H Creatinine 1.7 H Est GFR ( Amer) 41 Est GFR (Non-Af Amer) 34 POC Glucose (mg/dL) 198 H Random Glucose 173 H Calcium 6.5 L* Phosphorus Magnesium Total Bilirubin 19.0 H* AST 1113 H ALT 184 H Alkaline Phosphatase 512 H D Total Creatine Kinase 165 Total Protein 5.2 L Albumin 2.5 L Globulin 2.7 Albumin/Globulin Ratio 0.9 L Arterial Blood Potassium Venous Blood Potassium Influenza Typ A,B (EIA) Ur L.pneumophila Ag Blood Type Antibody Screen Crossmatch BBK History Checked 11/20/16 11/21/16 11/21/16 20:31 00:40 05:45 WBC RBC Hgb Hct MCV MCH MCHC RDW Plt Count MPV Baso % (Auto) Baso # Corrected WBC (Man) Neutrophils % (Manual) Lymphocytes % (Manual) Monocytes % (Manual) Metamyelocytes % Myelocytes % Nucleated RBC % Platelet Evaluation Polychromasia Hypochromasia Poikilocytosis (manual Anisocytosis (manual) Spherocytes Sickle Cells Tear Drop Cells Ovalocytes PT INR pCO2 35 pO2 22 L 56 H 168.0 H HCO3 22.7 ABG pH 7.42 ABG Total CO2 23.8 ABG O2 Saturation 101.0 H ABG Base Excess -1.3 ABG Potassium 2.8 L VBG pH 7.36 7.34 VBG pCO2 47.0 53.0 VBG HCO3 26.6 28.6 H VBG Total CO2 28.0 30.2 H VBG O2 Sat (Calc) 73.7 H 95.8 H VBG Base Excess 0.6 1.8 VBG Potassium 3.4 L 3.2 L Glucose 197 H 184 H 130 H Lactate 6.4 H* 5.0 H* 3.7 H Mechanical Rate FiO2 21.0 21.0 40.0 Tidal Volume PEEP Sodium 133.0 133.0 138.0 Potassium Chloride 96.0 L 97.0 L 108.0 H Carbon Dioxide Anion Gap BUN Creatinine Est GFR ( Amer) Est GFR (Non-Af Amer) POC Glucose (mg/dL) Random Glucose Calcium Phosphorus Magnesium Total Bilirubin AST ALT Alkaline Phosphatase Total Creatine Kinase Total Protein Albumin Globulin Albumin/Globulin Ratio Arterial Blood Potassium 2.8 L Venous Blood Potassium 3.4 L 3.2 L Influenza Typ A,B (EIA) Ur L.pneumophila Ag Blood Type Antibody Screen Crossmatch BBK History Checked 11/21/16 06:00 WBC RBC Hgb Hct MCV MCH MCHC RDW Plt Count MPV Baso % (Auto) Baso # Corrected WBC (Man) Neutrophils % (Manual) Lymphocytes % (Manual) Monocytes % (Manual) Metamyelocytes % Myelocytes % Nucleated RBC % Platelet Evaluation Polychromasia Hypochromasia Poikilocytosis (manual Anisocytosis (manual) Spherocytes Sickle Cells Tear Drop Cells Ovalocytes PT INR pCO2 pO2 64 H HCO3 ABG pH ABG Total CO2 ABG O2 Saturation ABG Base Excess ABG Potassium VBG pH 7.37 VBG pCO2 53.0 VBG HCO3 30.6 H VBG Total CO2 32.2 H VBG O2 Sat (Calc) 97.9 H VBG Base Excess 4.0 H VBG Potassium 3.1 L Glucose 159 H Lactate 4.8 H* Mechanical Rate FiO2 21.0 Tidal Volume PEEP Sodium 134.0 Potassium Chloride 97.0 L Carbon Dioxide Anion Gap BUN Creatinine Est GFR ( Amer) Est GFR (Non-Af Amer) POC Glucose (mg/dL) Random Glucose Calcium Phosphorus Magnesium Total Bilirubin AST ALT Alkaline Phosphatase Total Creatine Kinase Total Protein Albumin Globulin Albumin/Globulin Ratio Arterial Blood Potassium Venous Blood Potassium 3.1 L Influenza Typ A,B (EIA) Ur L.pneumophila Ag Blood Type Antibody Screen Crossmatch BBK History Checked Fingerstick Blood Sugar Results: 183 Review of Systems - Review of Systems Systems not reviewed;Unavailable: Intubated Critical Care Progress Note - Nutrition Nutrition: Nutrition Category Date Time Status NPO Diet [DIET] Diets 11/18/16 Dinner Ordered Assessment/Plan - Assessment and Plan (Free Text) Assessment: This is a 36 yo AA F with PMH of Sickle cell disease, Bipolar disorder, cerebral palsy, Asthma, and CHF who [place] [facility] [place] , and later developed Sickle cell crisis, Acute Chest Syndrome, GI bleed, and now has MODS including hepatic failure (2/2 hemochromatosis from multiple transfusions vs vaso-occlusive crisis), renal failure, and respiratory failure requiring intubation. Denied for transfer to [facility] and [facility], not a candidate for liver transplant as per DCU. S/p another round of hemodialysis and exchange transfusion, now off pressor support. Plan: Neuro: -Currently off sedation pending pressure support trial -maintain normothermia -Some arousal and spontaneous eye opening, otherwise only withdraws from pain, not following commands Pulm: -Intubated and sedated, on PRVC at 40%/5 Peep/15 RR/400 TV -AM ABG reviewed, pCO2 35, pO2 168, HCO3 22.7, pH 7.42, on FiO2 40%; off sedation for > 12 hours, will attempt pressure support trial to assess for possible extubation -Maintain SaO2 > 92%, paO2 > 60, titrate vent accordingly -Protective lung ventilation strategies, low tidal volumes, VAP bundle, Aspiration precautions -CXR today reviewed, poor lung volumes possible 2/2 positioning vs fluid overload, appears unchanged from prior CXR, cardiomegaly noted Cardio: -Shock requiring dual vasopressor support has resolved, currently off pressor support -Hypovolemic shock (from GI bleed + coagulapathy 2/2 liver failure) vs distributive (sepsis vs viscosity 2/2 vaso-occlusive), likely multifactorial -Maintain MAP > 65 -Tachycardia 100's, likely 2/2 levophed, but remains hemodynamically stable -s/p multiple transfusions; total transfusions since admission: 17 pRBC, 9 FFP, 3 Platelets, 2 Cryoprecipitate -INR 1.81 -S/p 2nd HD and 2nd exchange pheresis yesterday (11/20) -Cardiomegaly on CXR, most recent echo (June 2016) notable for EF 35-40%, normal size LV with nml wall thickness, trace AR, mild-mod MR, and mod TR -Continue Dobutamine -Dr. Deshpande (Cardio) on board, appreciate all recs GI: -NPO, no feeds due to possible GI bleed -Lactulose TN -Protonix IVP 40mg BID for ppx as per GI -Bedside EGD performed on 11/19, bleed found and injected with Epi/cauterized, thought to be 2/2 trauma from NGT placement -Diarrhea, but no reported melanotic stools; C. diff sent due to collitis visualized on abd/pelvis CT, toxin negative/antigen positive -Coagulpathy 2/2 Acute hepatic failure, INR 1.81 -Acute hepatic failure 2/2 acquired hemochromatosis from repeated transfusions vs acute vaso-occlusive crisis vs shock liver -Dr. Duong (GI) on board, appreciate all recs -Not a candidate for Liver Transplant as per [facility] Renal: -Cr 1.8 today (was 1.7) -Acute renal failure, likely 2/2 shock vs vaso-occlusive crisis -S/p 2nd rounds of HD and exchange pheresis yesterday (11/20) -Bloody urine output -Monitor I's and O's -Monitor and replete electrolytes as needed -Maintain Euglycemia (BG 140-180) -S/p hemodialysis catheter placement by Surgery on 11/17 -Dr. Perez (Nephro) on board, appreciate all recs Heme: -Coagulopathy 2/2 acute hepatic failure -S/p 2nd rounds of HD and exchange pheresis yesterday (11/20) -s/p multiple transfusions; total transfusions since admission: 17 pRBC, 9 FFP, 3 Platelets, 2 Cryoprecipitate -INR improved to 1.81 today, platelets 93 (from 15) -Fibrinogen decreased from 245 to 141.2 -Hemoglobin S pending, want <= 30 as per Heme-onc -No AC given possible GI bleeding and coagulopathy from hepatic failure -Dr. Palacios (Heme-onc) on board, appreciate all recs ID: -WBC improved to 21.3 -Dr. Batres (ID) following, continue Cefepime and Vanco (renally dosed), considering Merrem; will f/u with ID regarding Merrem -Started Flagyl IV q8 for possible collitis, s/p 1 dose Merrem and 2x doses Zosyn -1x blood culture on admission (+) for Coag negative Staph on 11/13, all remaining cultures negative -C Diff sent, antigen positive/toxin negative -Lactate improved to 4.8 on ABG Dispo: ICU, now off pressor support, intubated and ventilated, s/p 2nd transfusion exchange and HD, pending pressure support trial for possible extubation; denied for transplant by [facility], denies for tertiary tare transfer by [facility] and [facility] FEN: NPO, no feeds due to GI bleed, D10W 20cc/hr Access: Peripheral IVs, ETT, R-chest port; NO NGT as per GI Consults: ID, Nephro, Heme-onc, GI, Cardio, Psych, Surgery, Palliative Code Status: Full code Patient seen, reviewed, and discussed with attending, Dr. Newton. <Rene Newton B - Last Filed: 11/21/16 16:10> CCU Objective - Vital Signs / Intake & Output Vital Signs (Last 4 hours): Vital Signs Temp Pulse Resp BP Pulse Ox 11/21/16 16:01 100 H 25 H 11/21/16 16:00 97.8 F 99 H 16 11/21/16 15:59 96 H 25 H 11/21/16 15:53 102 H 25 H 11/21/16 15:52 101 H 17 11/21/16 15:50 103 H 20 11/21/16 15:49 103 H 18 11/21/16 15:48 101 H 25 H 11/21/16 15:47 101 H 20 11/21/16 15:31 100 H 19 103/59 L 100 11/21/16 15:15 98 H 12 108/71 99 11/21/16 15:08 102 H 21 86/65 L 99 11/21/16 15:07 103 H 27 H 11/21/16 15:01 102 H 19 11/21/16 15:00 105 H 15 84/71 L 99 11/21/16 14:47 107 H 22 114/83 99 11/21/16 14:45 109 H 12 85/41 L 98 11/21/16 14:35 107 H 28 H 11/21/16 14:34 106 H 19 98/65 L 11/21/16 14:33 102 H 18 100 11/21/16 14:32 105 H 23 11/21/16 14:31 104 H 28 H 11/21/16 14:16 103 H 29 H 95/75 L 100 11/21/16 14:00 100 H 24 109/77 98 11/21/16 13:45 102 H 22 115/79 99 11/21/16 13:30 102 H 21 99/67 L 98 11/21/16 13:00 103 H 23 111/75 98 11/21/16 12:30 105 H 23 108/77 99 Intake and Output (Last 8hrs): Intake & Output 11/21/16 11/21/16 11/21/16 06:59 14:59 22:59 Intake Total 701 Output Total 400 Balance 301 Weight 170 lb 11.2 oz 170 lb Intake: IV 701 D10W 240 Left Femoral 67 right chest wall 200 Output: Urine 400 2-way Urethral 400 - Medications Active Medications: Active Medications Generic Name Dose Route Start Last Admin Trade Name Freq PRN Reason Stop Dose Admin Albuterol/Ipratropium 3 ml 11/16/16 14:00 11/21/16 13:33 Duoneb 3 Mg/0.5 Mg (3 Ml) Ud IH 3 ml [id number] ARLETTE Administration Budesonide 0.5 mg 11/16/16 20:00 11/21/16 07:34 Pulmicort Respules IH 0.5 mg [id number] ARLETTE Administration Ergocalciferol 1 cap 11/12/16 10:00 11/19/16 14:47 Drisdol 50,000 Intl Units Cap PO Not Given QWK ARLETTE Folic Acid 1 mg 11/12/16 10:00 11/21/16 10:07 Folic Acid PO Not Given DAILY ARLETTE Furosemide 40 mg 11/16/16 10:00 11/17/16 09:00 Lasix IVP 40 mg DAILY ARLETTE Administration Heparin Sodium (Porcine) 5,000 units 11/13/16 01:15 11/16/16 21:44 Heparin SC Not Given Q12 ARLETTE Protocol Hydrocortisone Sodium Succinate 50 mg 11/19/16 07:15 11/21/16 14:40 Solu-Cortef IVP 50 mg Q8 ARLETTE Administration Hydroxyurea 500 mg 11/12/16 10:00 11/21/16 10:08 Hydrea PO Not Given DAILY ARLETTE Vancomycin HCl 1 gm in 250 mls @ 167 mls/hr 11/15/16 11:30 11/20/16 10:12 Vancomycin 1gm IVPB 167 mls/hr DAILY ARLETTE Administration Protocol Cefepime HCl 1 gm in 100 mls @ 100 mls/hr 11/15/16 13:15 11/21/16 12:38 Maxipime 1gm IVPB 100 mls/hr Q24H ARLETTE Administration Protocol Dextrose 500 mls @ 20 mls/hr 11/16/16 18:45 11/20/16 17:46 Dextrose 10% In Water IV 20 mls/hr .Q24H ARLETTE Administration Propofol 1,000 mg in 100 mls @ 2.259 mls/hr 11/17/16 20:53 11/20/16 03:59 Diprivan IV 50 mcg/kg/min .Q24H PRN 22.589 mls/hr TITRATE PER MD ORDER Administration Protocol 5 MCG/KG/MIN NOREPINEPHRINE BIT/0.9 % NACL 4 mg in 250 mls @ 15 mls/hr 11/18/16 06:33 06:50 Levophed 4 Mg/ 250 Ml Ns Premixed IV 0 mcg/min .[id number] PRN 0 mls/hr TITRATE PER MD ORDER Titration Protocol 4 MCG/MIN Vasopressin 20 units/ Dextrose 101 mls @ 12.12 mls/hr 11/19/16 07:15 22:39 IV 12.12 mls/hr .[id number] ARLETTE Administration Protocol 0.04 U/MIN Metronidazole 500 mg in 100 mls @ 100 mls/hr 11/19/16 19:15 11/21/16 14:47 Flagyl IVPB 100 mls/hr Q8 ARLETTE Administration Protocol Dobutamine HCl/Dextrose 500 mg in 250 mls @ 5.647 mls/hr 11/20/16 07:32 11/21 07:49 Dobutamine/Dextrose 5% 500mg/250ml IV 5.647 mls/hr .Q24H PRN Administration TITRATE PER PROTOCOL Protocol 2.5 MCG/KG/MIN Lactic Acid 0 ea 11/13/16 09:22 Lac-Hydrin 12% Cream (140 G) TOP DAILY PRN Wound Lactulose 200 gm 11/19/16 12:00 11/21/16 05:10 Generlac TN 11/24/16 12:01 200 gm Q6 ARLETTE Administration Multivitamins/Minerals 1 tab 11/12/16 11:30 11/21/16 10:07 Therapeutic-M Tab PO Not Given DAILY ARLETTE Pantoprazole Sodium 40 mg 11/19/16 22:00 11/21/16 10:06 Protonix Inj IVP 40 mg Q12 ARLETTE Administration Rifaximin 550 mg 11/18/16 10:15 11/19/16 14:57 Xifaxan PO Not Given BID [facility] Protocol - Patient Studies Lab Studies: Microbiology Studies 11/19/16 15:44 C. difficile Antigen & Toxin A,B (M - Final Stool Lab Studies 11/21/16 11/21/16 11/21/16 Range/Units 09:54 08:36 06:00 WBC (4.5-11.0) 10^3/ul RBC (3.5-6.1) 10^6/uL Hgb (12.0-16.0) g/dL Hct (36.0-48.0) % MCV (80.0-105.0) fl MCH (25.0-35.0) pg MCHC (31.0-37.0) g/dl RDW (11.5-14.5) % Plt Count (120.0-450.0) 10^3/uL Manual Plt Count 116 L (120-450) K/mm3 MPV (7.0-11.0) fl Baso % (Auto) (0.0-3.0) % Baso # (0.0-2.0) K/mm3 Corrected WBC (Man) (4.5-11.0) K/mm3 Neutrophils % (Manual) (50.0-70.0) % Band Neutrophils % (0-2) % Lymphocytes % (Manual) (22.0-35.0) % Monocytes % (Manual) (1.0-6.0) % Nucleated RBC % % Platelet Evaluation (NORMAL) Hypochromasia Poikilocytosis (manual Anisocytosis (manual) Microcytosis (manual) Ovalocytes Acanthocytes (Spur) Hemoglobinopathy Red Blood Count (3.80-5.10) Mill/mcL Hemoglobinopathy Hct (35.0-45.0) % Hemoglobinopathy Hgb (11.7-15.5) g/dL Hemoglobinopathy MCV (80.0-100.0) fL Hemoglobinopathy MCH (27.0-33.0) pg Hemoglobinopathy RDW (11.0-15.0) % PT (9.9-11.8) Seconds INR (0.93-1.08) Fibrinogen (187-400) mg/dL pCO2 42 (35-45) mm/Hg pO2 103.0 H (30-55) mm/Hg HCO3 28.5 H (21-28) mmol/L ABG pH 7.44 (7.35-7.45) ABG Total CO2 29.8 H (22-28) mmol.L ABG O2 Saturation 100.8 H (95-98) % ABG O2 Content 10.8 L (15-23) ML/dl ABG Base Excess 4.0 H (-2.0-3.0) mmol/L ABG Hemoglobin 7.9 L (11.7-17.4) g/dL ABG Carboxyhemoglobin 2.6 H (0.5-1.5) % POC ABG HHb (Measured) -0.8 L (0-5) % ABG Methemoglobin 2.5 (0.0-3.0) % ABG O2 Capacity 10.7 L (16-24) mL/dl ABG Potassium (3.6-5.2) mmol/L VBG pH (7.32-7.43) VBG pCO2 (40-60) VBG HCO3 (21-28) mmol/l VBG Total CO2 (22-28) mmol.L VBG O2 Sat (Calc) (40-65) % VBG Base Excess (0.0-2.0) mmol/L VBG Potassium (3.6-5.2) mmol/L Hgb O2 Saturation 95.6 (95.0-98.0) % Sodium (132-148) mmol/L Chloride (98-107) mmol/L Glucose (65-105) mg/dl Lactate (0.7-2.1) mmol/L FiO2 40.0 % Potassium (3.6-5.0) mmol/L Carbon Dioxide (21-33) mmol/L Anion Gap (10-20) BUN (7-21) mg/dL Creatinine (0.5-1.4) mg/dL Est GFR ( Amer) Est GFR (Non-Af Amer) Random Glucose (70-110) mg/dL Calcium (8.4-10.5) mg/dL Phosphorus (2.5-4.5) mg/dL Magnesium (1.7-2.2) mg/dL Total Bilirubin (0.2-1.3) mg/dL AST (14-36) U/L ALT (7-56) U/L Alkaline Phosphatase (38-126) U/L Total Creatine Kinase (35-230) U/L Total Protein (5.8-8.3) g/dL Albumin (3.0-4.8) g/dL Globulin gm/dL Albumin/Globulin Ratio (1.1-1.8) Arterial Blood Potassium (3.6-5.2) mmol/L Venous Blood Potassium (3.6-5.2) mmol/L Vancomycin Trough 21.9 H* (5.0-10.0) ug/mL Ur L.pneumophila Ag (NEGATIVE) Blood Type Antibody Screen Crossmatch BBK History Checked 11/21/16 11/21/16 11/21/16 Range/Units 06:00 06:00 06:00 WBC 21.3 H D (4.5-11.0) 10^3/ul RBC 2.57 L (3.5-6.1) 10^6/uL Hgb 8.1 L (12.0-16.0) g/dL Hct 20.8 L* (36.0-48.0) % MCV 80.9 D (80.0-105.0) fl MCH 31.5 (25.0-35.0) pg MCHC 38.9 H (31.0-37.0) g/dl RDW 15.4 H (11.5-14.5) % Plt Count 93 L (120.0-450.0) 10^3/uL Manual Plt Count (120-450) K/mm3 MPV 8.5 (7.0-11.0) fl Baso % (Auto) (0.0-3.0) % Baso # (0.0-2.0) K/mm3 Corrected WBC (Man) 3.2 L (4.5-11.0) K/mm3 Neutrophils % (Manual) 70 (50.0-70.0) % Band Neutrophils % 4 H (0-2) % Lymphocytes % (Manual) 16 L (22.0-35.0) % Monocytes % (Manual) 10 H (1.0-6.0) % Nucleated RBC % 566 % Platelet Evaluation Low (NORMAL) Hypochromasia Slight Poikilocytosis (manual 1+ Anisocytosis (manual) Slight Microcytosis (manual) 1+ Ovalocytes Slight Acanthocytes (Spur) 1+ Hemoglobinopathy Red Blood Count (3.80-5.10) Mill/mcL Hemoglobinopathy Hct (35.0-45.0) % Hemoglobinopathy Hgb (11.7-15.5) g/dL Hemoglobinopathy MCV (80.0-100.0) fL Hemoglobinopathy MCH (27.0-33.0) pg Hemoglobinopathy RDW (11.0-15.0) % PT (9.9-11.8) Seconds INR (0.93-1.08) Fibrinogen (187-400) mg/dL pCO2 (35-45) mm/Hg pO2 64 H (30-55) mm/Hg HCO3 (21-28) mmol/L ABG pH (7.35-7.45) ABG Total CO2 (22-28) mmol.L ABG O2 Saturation (95-98) % ABG O2 Content (15-23) ML/dl ABG Base Excess (-2.0-3.0) mmol/L ABG Hemoglobin (11.7-17.4) g/dL ABG Carboxyhemoglobin (0.5-1.5) % POC ABG HHb (Measured) (0-5) % ABG Methemoglobin (0.0-3.0) % ABG O2 Capacity (16-24) mL/dl ABG Potassium (3.6-5.2) mmol/L VBG pH 7.37 (7.32-7.43) VBG pCO2 53.0 (40-60) VBG HCO3 30.6 H (21-28) mmol/l VBG Total CO2 32.2 H (22-28) mmol.L VBG O2 Sat (Calc) 97.9 H (40-65) % VBG Base Excess 4.0 H (0.0-2.0) mmol/L VBG Potassium 3.1 L (3.6-5.2) mmol/L Hgb O2 Saturation (95.0-98.0) % Sodium 134.0 136 (132-148) mmol/L Chloride 97.0 L 93 L (98-107) mmol/L Glucose 159 H (65-105) mg/dl Lactate 4.8 H* (0.7-2.1) mmol/L FiO2 21.0 % Potassium 3.1 L (3.6-5.0) mmol/L Carbon Dioxide 29 (21-33) mmol/L Anion Gap 17 (10-20) BUN 39 H (7-21) mg/dL Creatinine 1.8 H (0.5-1.4) mg/dL Est GFR ( Amer) 38 Est GFR (Non-Af Amer) 31 Random Glucose 144 H (70-110) mg/dL Calcium 7.0 L (8.4-10.5) mg/dL Phosphorus 5.1 H (2.5-4.5) mg/dL Magnesium 1.5 L (1.7-2.2) mg/dL Total Bilirubin 20.7 H* (0.2-1.3) mg/dL AST 749 H D (14-36) U/L ALT 168 H (7-56) U/L Alkaline Phosphatase 484 H (38-126) U/L Total Creatine Kinase (35-230) U/L Total Protein 5.4 L (5.8-8.3) g/dL Albumin 2.6 L (3.0-4.8) g/dL Globulin 2.7 gm/dL Albumin/Globulin Ratio 1.0 L (1.1-1.8) Arterial Blood Potassium (3.6-5.2) mmol/L Venous Blood Potassium 3.1 L (3.6-5.2) mmol/L Vancomycin Trough (5.0-10.0) ug/mL Ur L.pneumophila Ag (NEGATIVE) Blood Type Antibody Screen Crossmatch BBK History Checked 11/21/16 11/21/16 11/21/16 Range/Units 06:00 05:45 00:40 WBC (4.5-11.0) 10^3/ul RBC (3.5-6.1) 10^6/uL Hgb (12.0-16.0) g/dL Hct (36.0-48.0) % MCV (80.0-105.0) fl MCH (25.0-35.0) pg MCHC (31.0-37.0) g/dl RDW (11.5-14.5) % Plt Count (120.0-450.0) 10^3/uL Manual Plt Count (120-450) K/mm3 MPV (7.0-11.0) fl Baso % (Auto) (0.0-3.0) % Baso # (0.0-2.0) K/mm3 Corrected WBC (Man) (4.5-11.0) K/mm3 Neutrophils % (Manual) (50.0-70.0) % Band Neutrophils % (0-2) % Lymphocytes % (Manual) (22.0-35.0) % Monocytes % (Manual) (1.0-6.0) % Nucleated RBC % % Platelet Evaluation (NORMAL) Hypochromasia Poikilocytosis (manual Anisocytosis (manual) Microcytosis (manual) Ovalocytes Acanthocytes (Spur) Hemoglobinopathy Red Blood Count (3.80-5.10) Mill/mcL Hemoglobinopathy Hct (35.0-45.0) % Hemoglobinopathy Hgb (11.7-15.5) g/dL Hemoglobinopathy MCV (80.0-100.0) fL Hemoglobinopathy MCH (27.0-33.0) pg Hemoglobinopathy RDW (11.0-15.0) % PT 19.5 H (9.9-11.8) Seconds INR 1.81 H (0.93-1.08) Fibrinogen 141.2 L (187-400) mg/dL pCO2 35 (35-45) mm/Hg pO2 168.0 H 56 H (30-55) mm/Hg HCO3 22.7 (21-28) mmol/L ABG pH 7.42 (7.35-7.45) ABG Total CO2 23.8 (22-28) mmol.L ABG O2 Saturation 101.0 H (95-98) % ABG O2 Content (15-23) ML/dl ABG Base Excess -1.3 (-2.0-3.0) mmol/L ABG Hemoglobin (11.7-17.4) g/dL ABG Carboxyhemoglobin (0.5-1.5) % POC ABG HHb (Measured) (0-5) % ABG Methemoglobin (0.0-3.0) % ABG O2 Capacity (16-24) mL/dl ABG Potassium 2.8 L (3.6-5.2) mmol/L VBG pH 7.34 (7.32-7.43) VBG pCO2 53.0 (40-60) VBG HCO3 28.6 H (21-28) mmol/l VBG Total CO2 30.2 H (22-28) mmol.L VBG O2 Sat (Calc) 95.8 H (40-65) % VBG Base Excess 1.8 (0.0-2.0) mmol/L VBG Potassium 3.2 L (3.6-5.2) mmol/L Hgb O2 Saturation (95.0-98.0) % Sodium 138.0 133.0 (132-148) mmol/L Chloride 108.0 H 97.0 L (98-107) mmol/L Glucose 130 H 184 H (65-105) mg/dl Lactate 3.7 H 5.0 H* (0.7-2.1) mmol/L FiO2 40.0 21.0 % Potassium (3.6-5.0) mmol/L Carbon Dioxide (21-33) mmol/L Anion Gap (10-20) BUN (7-21) mg/dL Creatinine (0.5-1.4) mg/dL Est GFR ( Amer) Est GFR (Non-Af Amer) Random Glucose (70-110) mg/dL Calcium (8.4-10.5) mg/dL Phosphorus (2.5-4.5) mg/dL Magnesium (1.7-2.2) mg/dL Total Bilirubin (0.2-1.3) mg/dL AST (14-36) U/L ALT (7-56) U/L Alkaline Phosphatase (38-126) U/L Total Creatine Kinase (35-230) U/L Total Protein (5.8-8.3) g/dL Albumin (3.0-4.8) g/dL Globulin gm/dL Albumin/Globulin Ratio (1.1-1.8) Arterial Blood Potassium 2.8 L (3.6-5.2) mmol/L Venous Blood Potassium 3.2 L (3.6-5.2) mmol/L Vancomycin Trough (5.0-10.0) ug/mL Ur L.pneumophila Ag (NEGATIVE) Blood Type Antibody Screen Crossmatch BBK History Checked 11/20/16 11/20/16 11/20/16 Range/Units 20:31 20:31 20:31 WBC 13.9 H D (4.5-11.0) 10^3/ul RBC 3.04 L (3.5-6.1) 10^6/uL Hgb 9.0 L D (12.0-16.0) g/dL Hct 25.5 L (36.0-48.0) % MCV 83.9 (80.0-105.0) fl MCH 29.6 (25.0-35.0) pg MCHC 35.3 (31.0-37.0) g/dl RDW 14.9 H (11.5-14.5) % Plt Count 15 L* (120.0-450.0) 10^3/uL Manual Plt Count (120-450) K/mm3 MPV 10.3 (7.0-11.0) fl Baso % (Auto) 0.6 (0.0-3.0) % Baso # 0.09 (0.0-2.0) K/mm3 Corrected WBC (Man) (4.5-11.0) K/mm3 Neutrophils % (Manual) (50.0-70.0) % Band Neutrophils % (0-2) % Lymphocytes % (Manual) (22.0-35.0) % Monocytes % (Manual) (1.0-6.0) % Nucleated RBC % % Platelet Evaluation (NORMAL) Hypochromasia Poikilocytosis (manual Anisocytosis (manual) Microcytosis (manual) Ovalocytes Acanthocytes (Spur) Hemoglobinopathy Red Blood Count (3.80-5.10) Mill/mcL Hemoglobinopathy Hct (35.0-45.0) % Hemoglobinopathy Hgb (11.7-15.5) g/dL Hemoglobinopathy MCV (80.0-100.0) fL Hemoglobinopathy MCH (27.0-33.0) pg Hemoglobinopathy RDW (11.0-15.0) % PT (9.9-11.8) Seconds INR (0.93-1.08) Fibrinogen (187-400) mg/dL pCO2 (35-45) mm/Hg pO2 22 L (30-55) mm/Hg HCO3 (21-28) mmol/L ABG pH (7.35-7.45) ABG Total CO2 (22-28) mmol.L ABG O2 Saturation (95-98) % ABG O2 Content (15-23) ML/dl ABG Base Excess (-2.0-3.0) mmol/L ABG Hemoglobin (11.7-17.4) g/dL ABG Carboxyhemoglobin (0.5-1.5) % POC ABG HHb (Measured) (0-5) % ABG Methemoglobin (0.0-3.0) % ABG O2 Capacity (16-24) mL/dl ABG Potassium (3.6-5.2) mmol/L VBG pH 7.36 (7.32-7.43) VBG pCO2 47.0 (40-60) VBG HCO3 26.6 (21-28) mmol/l VBG Total CO2 28.0 (22-28) mmol.L VBG O2 Sat (Calc) 73.7 H (40-65) % VBG Base Excess 0.6 (0.0-2.0) mmol/L VBG Potassium 3.4 L (3.6-5.2) mmol/L Hgb O2 Saturation (95.0-98.0) % Sodium 133.0 134 (132-148) mmol/L Chloride 96.0 L 93 L (98-107) mmol/L Glucose 197 H (65-105) mg/dl Lactate 6.4 H* (0.7-2.1) mmol/L FiO2 21.0 % Potassium 3.3 L (3.6-5.0) mmol/L Carbon Dioxide 26 (21-33) mmol/L Anion Gap 18 (10-20) BUN 37 H (7-21) mg/dL Creatinine 1.7 H (0.5-1.4) mg/dL Est GFR ( Amer) 41 Est GFR (Non-Af Amer) 34 Random Glucose 173 H (70-110) mg/dL Calcium 6.5 L* (8.4-10.5) mg/dL Phosphorus (2.5-4.5) mg/dL Magnesium (1.7-2.2) mg/dL Total Bilirubin 19.0 H* (0.2-1.3) mg/dL AST 1113 H (14-36) U/L ALT 184 H (7-56) U/L Alkaline Phosphatase 512 H D (38-126) U/L Total Creatine Kinase 165 (35-230) U/L Total Protein 5.2 L (5.8-8.3) g/dL Albumin 2.5 L (3.0-4.8) g/dL Globulin 2.7 gm/dL Albumin/Globulin Ratio 0.9 L (1.1-1.8) Arterial Blood Potassium (3.6-5.2) mmol/L Venous Blood Potassium 3.4 L (3.6-5.2) mmol/L Vancomycin Trough (5.0-10.0) ug/mL Ur L.pneumophila Ag (NEGATIVE) Blood Type Antibody Screen Crossmatch BBK History Checked 11/20/16 11/20/16 11/19/16 Range/Units 17:40 07:37 10:05 WBC (4.5-11.0) 10^3/ul RBC (3.5-6.1) 10^6/uL Hgb (12.0-16.0) g/dL Hct (36.0-48.0) % MCV (80.0-105.0) fl MCH (25.0-35.0) pg MCHC (31.0-37.0) g/dl RDW (11.5-14.5) % Plt Count (120.0-450.0) 10^3/uL Manual Plt Count (120-450) K/mm3 MPV (7.0-11.0) fl Baso % (Auto) (0.0-3.0) % Baso # (0.0-2.0) K/mm3 Corrected WBC (Man) (4.5-11.0) K/mm3 Neutrophils % (Manual) (50.0-70.0) % Band Neutrophils % (0-2) % Lymphocytes % (Manual) (22.0-35.0) % Monocytes % (Manual) (1.0-6.0) % Nucleated RBC % % Platelet Evaluation (NORMAL) Hypochromasia Poikilocytosis (manual Anisocytosis (manual) Microcytosis (manual) Ovalocytes Acanthocytes (Spur) Hemoglobinopathy Red Blood Count 3.11 L (3.80-5.10) Mill/mcL Hemoglobinopathy Hct 27.2 L (35.0-45.0) % Hemoglobinopathy Hgb 9.5 L (11.7-15.5) g/dL Hemoglobinopathy MCV 87.4 (80.0-100.0) fL Hemoglobinopathy MCH 30.7 (27.0-33.0) pg Hemoglobinopathy RDW 15.2 H (11.0-15.0) % PT (9.9-11.8) Seconds INR (0.93-1.08) Fibrinogen (187-400) mg/dL pCO2 (35-45) mm/Hg pO2 (30-55) mm/Hg HCO3 (21-28) mmol/L ABG pH (7.35-7.45) ABG Total CO2 (22-28) mmol.L ABG O2 Saturation (95-98) % ABG O2 Content (15-23) ML/dl ABG Base Excess (-2.0-3.0) mmol/L ABG Hemoglobin (11.7-17.4) g/dL ABG Carboxyhemoglobin (0.5-1.5) % POC ABG HHb (Measured) (0-5) % ABG Methemoglobin (0.0-3.0) % ABG O2 Capacity (16-24) mL/dl ABG Potassium (3.6-5.2) mmol/L VBG pH (7.32-7.43) VBG pCO2 (40-60) VBG HCO3 (21-28) mmol/l VBG Total CO2 (22-28) mmol.L VBG O2 Sat (Calc) (40-65) % VBG Base Excess (0.0-2.0) mmol/L VBG Potassium (3.6-5.2) mmol/L Hgb O2 Saturation (95.0-98.0) % Sodium (132-148) mmol/L Chloride (98-107) mmol/L Glucose (65-105) mg/dl Lactate (0.7-2.1) mmol/L FiO2 % Potassium (3.6-5.0) mmol/L Carbon Dioxide (21-33) mmol/L Anion Gap (10-20) BUN (7-21) mg/dL Creatinine (0.5-1.4) mg/dL Est GFR ( Amer) Est GFR (Non-Af Amer) Random Glucose (70-110) mg/dL Calcium (8.4-10.5) mg/dL Phosphorus (2.5-4.5) mg/dL Magnesium (1.7-2.2) mg/dL Total Bilirubin (0.2-1.3) mg/dL AST (14-36) U/L ALT (7-56) U/L Alkaline Phosphatase (38-126) U/L Total Creatine Kinase (35-230) U/L Total Protein (5.8-8.3) g/dL Albumin (3.0-4.8) g/dL Globulin gm/dL Albumin/Globulin Ratio (1.1-1.8) Arterial Blood Potassium (3.6-5.2) mmol/L Venous Blood Potassium (3.6-5.2) mmol/L Vancomycin Trough (5.0-10.0) ug/mL Ur L.pneumophila Ag Negative (NEGATIVE) Blood Type B POSITIVE Antibody Screen Negative Crossmatch See Detail BBK History Checked Patient has bt 11/16/16 Range/Units 20:00 WBC (4.5-11.0) 10^3/ul RBC (3.5-6.1) 10^6/uL Hgb (12.0-16.0) g/dL Hct (36.0-48.0) % MCV (80.0-105.0) fl MCH (25.0-35.0) pg MCHC (31.0-37.0) g/dl RDW (11.5-14.5) % Plt Count (120.0-450.0) 10^3/uL Manual Plt Count (120-450) K/mm3 MPV (7.0-11.0) fl Baso % (Auto) (0.0-3.0) % Baso # (0.0-2.0) K/mm3 Corrected WBC (Man) (4.5-11.0) K/mm3 Neutrophils % (Manual) (50.0-70.0) % Band Neutrophils % (0-2) % Lymphocytes % (Manual) (22.0-35.0) % Monocytes % (Manual) (1.0-6.0) % Nucleated RBC % % Platelet Evaluation (NORMAL) Hypochromasia Poikilocytosis (manual Anisocytosis (manual) Microcytosis (manual) Ovalocytes Acanthocytes (Spur) Hemoglobinopathy Red Blood Count (3.80-5.10) Mill/mcL Hemoglobinopathy Hct (35.0-45.0) % Hemoglobinopathy Hgb (11.7-15.5) g/dL Hemoglobinopathy MCV (80.0-100.0) fL Hemoglobinopathy MCH (27.0-33.0) pg Hemoglobinopathy RDW (11.0-15.0) % PT (9.9-11.8) Seconds INR (0.93-1.08) Fibrinogen (187-400) mg/dL pCO2 (35-45) mm/Hg pO2 (30-55) mm/Hg HCO3 (21-28) mmol/L ABG pH (7.35-7.45) ABG Total CO2 (22-28) mmol.L ABG O2 Saturation (95-98) % ABG O2 Content (15-23) ML/dl ABG Base Excess (-2.0-3.0) mmol/L ABG Hemoglobin (11.7-17.4) g/dL ABG Carboxyhemoglobin (0.5-1.5) % POC ABG HHb (Measured) (0-5) % ABG Methemoglobin (0.0-3.0) % ABG O2 Capacity (16-24) mL/dl ABG Potassium (3.6-5.2) mmol/L VBG pH (7.32-7.43) VBG pCO2 (40-60) VBG HCO3 (21-28) mmol/l VBG Total CO2 (22-28) mmol.L VBG O2 Sat (Calc) (40-65) % VBG Base Excess (0.0-2.0) mmol/L VBG Potassium (3.6-5.2) mmol/L Hgb O2 Saturation (95.0-98.0) % Sodium (132-148) mmol/L Chloride (98-107) mmol/L Glucose (65-105) mg/dl Lactate (0.7-2.1) mmol/L FiO2 % Potassium (3.6-5.0) mmol/L Carbon Dioxide (21-33) mmol/L Anion Gap (10-20) BUN (7-21) mg/dL Creatinine (0.5-1.4) mg/dL Est GFR ( Amer) Est GFR (Non-Af Amer) Random Glucose (70-110) mg/dL Calcium (8.4-10.5) mg/dL Phosphorus (2.5-4.5) mg/dL Magnesium (1.7-2.2) mg/dL Total Bilirubin (0.2-1.3) mg/dL AST (14-36) U/L ALT (7-56) U/L Alkaline Phosphatase (38-126) U/L Total Creatine Kinase (35-230) U/L Total Protein (5.8-8.3) g/dL Albumin (3.0-4.8) g/dL Globulin gm/dL Albumin/Globulin Ratio (1.1-1.8) Arterial Blood Potassium (3.6-5.2) mmol/L Venous Blood Potassium (3.6-5.2) mmol/L Vancomycin Trough (5.0-10.0) ug/mL Ur L.pneumophila Ag (NEGATIVE) Blood Type Antibody Screen Crossmatch See Detail BBK History Checked Laboratory Results - last 24 hr 11/16/16 11/19/16 11/20/16 20:00 10:05 07:37 WBC RBC Hgb Hct MCV MCH MCHC RDW Plt Count Manual Plt Count MPV Baso % (Auto) Baso # Corrected WBC (Man) Neutrophils % (Manual) Band Neutrophils % Lymphocytes % (Manual) Monocytes % (Manual) Nucleated RBC % Platelet Evaluation Hypochromasia Poikilocytosis (manual Anisocytosis (manual) Microcytosis (manual) Ovalocytes Acanthocytes (Spur) Hemoglobinopathy Red Blood Count Hemoglobinopathy Hct Hemoglobinopathy Hgb Hemoglobinopathy MCV Hemoglobinopathy MCH Hemoglobinopathy RDW PT INR Fibrinogen pCO2 pO2 HCO3 ABG pH ABG Total CO2 ABG O2 Saturation ABG O2 Content ABG Base Excess ABG Hemoglobin ABG Carboxyhemoglobin POC ABG HHb (Measured) ABG Methemoglobin ABG O2 Capacity ABG Potassium VBG pH VBG pCO2 VBG HCO3 VBG Total CO2 VBG O2 Sat (Calc) VBG Base Excess VBG Potassium Hgb O2 Saturation Sodium Chloride Glucose Lactate FiO2 Potassium Carbon Dioxide Anion Gap BUN Creatinine Est GFR ( Amer) Est GFR (Non-Af Amer) Random Glucose Calcium Phosphorus Magnesium Total Bilirubin AST ALT Alkaline Phosphatase Total Creatine Kinase Total Protein Albumin Globulin Albumin/Globulin Ratio Arterial Blood Potassium Venous Blood Potassium Vancomycin Trough Ur L.pneumophila Ag Negative Blood Type B POSITIVE Antibody Screen Negative Crossmatch See Detail See Detail BBK History Checked Patient has bt 11/20/16 11/20/16 11/20/16 17:40 20:31 20:31 WBC 13.9 H D RBC 3.04 L Hgb 9.0 L D Hct 25.5 L MCV 83.9 MCH 29.6 MCHC 35.3 RDW 14.9 H Plt Count 15 L* Manual Plt Count MPV 10.3 Baso % (Auto) 0.6 Baso # 0.09 Corrected WBC (Man) Neutrophils % (Manual) Band Neutrophils % Lymphocytes % (Manual) Monocytes % (Manual) Nucleated RBC % Platelet Evaluation Hypochromasia Poikilocytosis (manual Anisocytosis (manual) Microcytosis (manual) Ovalocytes Acanthocytes (Spur) Hemoglobinopathy Red Blood Count 3.11 L Hemoglobinopathy Hct 27.2 L Hemoglobinopathy Hgb 9.5 L Hemoglobinopathy MCV 87.4 Hemoglobinopathy MCH 30.7 Hemoglobinopathy RDW 15.2 H PT INR Fibrinogen pCO2 pO2 HCO3 ABG pH ABG Total CO2 ABG O2 Saturation ABG O2 Content ABG Base Excess ABG Hemoglobin ABG Carboxyhemoglobin POC ABG HHb (Measured) ABG Methemoglobin ABG O2 Capacity ABG Potassium VBG pH VBG pCO2 VBG HCO3 VBG Total CO2 VBG O2 Sat (Calc) VBG Base Excess VBG Potassium Hgb O2 Saturation Sodium 134 Chloride 93 L Glucose Lactate FiO2 Potassium 3.3 L Carbon Dioxide 26 Anion Gap 18 BUN 37 H Creatinine 1.7 H Est GFR ( Amer) 41 Est GFR (Non-Af Amer) 34 Random Glucose 173 H Calcium 6.5 L* Phosphorus Magnesium Total Bilirubin 19.0 H* AST 1113 H ALT 184 H Alkaline Phosphatase 512 H D Total Creatine Kinase 165 Total Protein 5.2 L Albumin 2.5 L Globulin 2.7 Albumin/Globulin Ratio 0.9 L Arterial Blood Potassium Venous Blood Potassium Vancomycin Trough Ur L.pneumophila Ag Blood Type Antibody Screen Crossmatch BBK History Checked 11/20/16 11/21/16 11/21/16 20:31 00:40 05:45 WBC RBC Hgb Hct MCV MCH MCHC RDW Plt Count Manual Plt Count MPV Baso % (Auto) Baso # Corrected WBC (Man) Neutrophils % (Manual) Band Neutrophils % Lymphocytes % (Manual) Monocytes % (Manual) Nucleated RBC % Platelet Evaluation Hypochromasia Poikilocytosis (manual Anisocytosis (manual) Microcytosis (manual) Ovalocytes Acanthocytes (Spur) Hemoglobinopathy Red Blood Count Hemoglobinopathy Hct Hemoglobinopathy Hgb Hemoglobinopathy MCV Hemoglobinopathy MCH Hemoglobinopathy RDW PT INR Fibrinogen pCO2 35 pO2 22 L 56 H 168.0 H HCO3 22.7 ABG pH 7.42 ABG Total CO2 23.8 ABG O2 Saturation 101.0 H ABG O2 Content ABG Base Excess -1.3 ABG Hemoglobin ABG Carboxyhemoglobin POC ABG HHb (Measured) ABG Methemoglobin ABG O2 Capacity ABG Potassium 2.8 L VBG pH 7.36 7.34 VBG pCO2 47.0 53.0 VBG HCO3 26.6 28.6 H VBG Total CO2 28.0 30.2 H VBG O2 Sat (Calc) 73.7 H 95.8 H VBG Base Excess 0.6 1.8 VBG Potassium 3.4 L 3.2 L Hgb O2 Saturation Sodium 133.0 133.0 138.0 Chloride 96.0 L 97.0 L 108.0 H Glucose 197 H 184 H 130 H Lactate 6.4 H* 5.0 H* 3.7 H FiO2 21.0 21.0 40.0 Potassium Carbon Dioxide Anion Gap BUN Creatinine Est GFR ( Amer) Est GFR (Non-Af Amer) Random Glucose Calcium Phosphorus Magnesium Total Bilirubin AST ALT Alkaline Phosphatase Total Creatine Kinase Total Protein Albumin Globulin Albumin/Globulin Ratio Arterial Blood Potassium 2.8 L Venous Blood Potassium 3.4 L 3.2 L Vancomycin Trough Ur L.pneumophila Ag Blood Type Antibody Screen Crossmatch BBK History Checked 11/21/16 11/21/16 11/21/16 06:00 06:00 06:00 WBC 21.3 H D RBC 2.57 L Hgb 8.1 L Hct 20.8 L* MCV 80.9 D MCH 31.5 MCHC 38.9 H RDW 15.4 H Plt Count 93 L Manual Plt Count MPV 8.5 Baso % (Auto) Baso # Corrected WBC (Man) 3.2 L Neutrophils % (Manual) 70 Band Neutrophils % 4 H Lymphocytes % (Manual) 16 L Monocytes % (Manual) 10 H Nucleated RBC % 566 Platelet Evaluation Low Hypochromasia Slight Poikilocytosis (manual 1+ Anisocytosis (manual) Slight Microcytosis (manual) 1+ Ovalocytes Slight Acanthocytes (Spur) 1+ Hemoglobinopathy Red Blood Count Hemoglobinopathy Hct Hemoglobinopathy Hgb Hemoglobinopathy MCV Hemoglobinopathy MCH Hemoglobinopathy RDW PT 19.5 H INR 1.81 H Fibrinogen 141.2 L pCO2 pO2 HCO3 ABG pH ABG Total CO2 ABG O2 Saturation ABG O2 Content ABG Base Excess ABG Hemoglobin ABG Carboxyhemoglobin POC ABG HHb (Measured) ABG Methemoglobin ABG O2 Capacity ABG Potassium VBG pH VBG pCO2 VBG HCO3 VBG Total CO2 VBG O2 Sat (Calc) VBG Base Excess VBG Potassium Hgb O2 Saturation Sodium 136 Chloride 93 L Glucose Lactate FiO2 Potassium 3.1 L Carbon Dioxide 29 Anion Gap 17 BUN 39 H Creatinine 1.8 H Est GFR ( Amer) 38 Est GFR (Non-Af Amer) 31 Random Glucose 144 H Calcium 7.0 L Phosphorus 5.1 H Magnesium 1.5 L Total Bilirubin 20.7 H* AST 749 H D ALT 168 H Alkaline Phosphatase 484 H Total Creatine Kinase Total Protein 5.4 L Albumin 2.6 L Globulin 2.7 Albumin/Globulin Ratio 1.0 L Arterial Blood Potassium Venous Blood Potassium Vancomycin Trough Ur L.pneumophila Ag Blood Type Antibody Screen Crossmatch BBK History Checked 11/21/16 11/21/16 11/21/16 06:00 06:00 08:36 WBC RBC Hgb Hct MCV MCH MCHC RDW Plt Count Manual Plt Count 116 L MPV Baso % (Auto) Baso # Corrected WBC (Man) Neutrophils % (Manual) Band Neutrophils % Lymphocytes % (Manual) Monocytes % (Manual) Nucleated RBC % Platelet Evaluation Hypochromasia Poikilocytosis (manual Anisocytosis (manual) Microcytosis (manual) Ovalocytes Acanthocytes (Spur) Hemoglobinopathy Red Blood Count Hemoglobinopathy Hct Hemoglobinopathy Hgb Hemoglobinopathy MCV Hemoglobinopathy MCH Hemoglobinopathy RDW PT INR Fibrinogen pCO2 42 pO2 64 H 103.0 H HCO3 28.5 H ABG pH 7.44 ABG Total CO2 29.8 H ABG O2 Saturation 100.8 H ABG O2 Content 10.8 L ABG Base Excess 4.0 H ABG Hemoglobin 7.9 L ABG Carboxyhemoglobin 2.6 H POC ABG HHb (Measured) -0.8 L ABG Methemoglobin 2.5 ABG O2 Capacity 10.7 L ABG Potassium VBG pH 7.37 VBG pCO2 53.0 VBG HCO3 30.6 H VBG Total CO2 32.2 H VBG O2 Sat (Calc) 97.9 H VBG Base Excess 4.0 H VBG Potassium 3.1 L Hgb O2 Saturation 95.6 Sodium 134.0 Chloride 97.0 L Glucose 159 H Lactate 4.8 H* FiO2 21.0 40.0 Potassium Carbon Dioxide Anion Gap BUN Creatinine Est GFR ( Amer) Est GFR (Non-Af Amer) Random Glucose Calcium Phosphorus Magnesium Total Bilirubin AST ALT Alkaline Phosphatase Total Creatine Kinase Total Protein Albumin Globulin Albumin/Globulin Ratio Arterial Blood Potassium Venous Blood Potassium 3.1 L Vancomycin Trough Ur L.pneumophila Ag Blood Type Antibody Screen Crossmatch BBK History Checked 11/21/16 09:54 WBC RBC Hgb Hct MCV MCH MCHC RDW Plt Count Manual Plt Count MPV Baso % (Auto) Baso # Corrected WBC (Man) Neutrophils % (Manual) Band Neutrophils % Lymphocytes % (Manual) Monocytes % (Manual) Nucleated RBC % Platelet Evaluation Hypochromasia Poikilocytosis (manual Anisocytosis (manual) Microcytosis (manual) Ovalocytes Acanthocytes (Spur) Hemoglobinopathy Red Blood Count Hemoglobinopathy Hct Hemoglobinopathy Hgb Hemoglobinopathy MCV Hemoglobinopathy MCH Hemoglobinopathy RDW PT INR Fibrinogen pCO2 pO2 HCO3 ABG pH ABG Total CO2 ABG O2 Saturation ABG O2 Content ABG Base Excess ABG Hemoglobin ABG Carboxyhemoglobin POC ABG HHb (Measured) ABG Methemoglobin ABG O2 Capacity ABG Potassium VBG pH VBG pCO2 VBG HCO3 VBG Total CO2 VBG O2 Sat (Calc) VBG Base Excess VBG Potassium Hgb O2 Saturation Sodium Chloride Glucose Lactate FiO2 Potassium Carbon Dioxide Anion Gap BUN Creatinine Est GFR ( Amer) Est GFR (Non-Af Amer) Random Glucose Calcium Phosphorus Magnesium Total Bilirubin AST ALT Alkaline Phosphatase Total Creatine Kinase Total Protein Albumin Globulin Albumin/Globulin Ratio Arterial Blood Potassium Venous Blood Potassium Vancomycin Trough 21.9 H* Ur L.pneumophila Ag Blood Type Antibody Screen Crossmatch BBK History Checked Critical Care Progress Note - Nutrition Nutrition: Nutrition Category Date Time Status NPO Diet [DIET] Diets 11/18/16 Dinner Ordered Attending/Attestation - Attestation I have personally seen and examined this patient.: Yes I have fully participated in the care of the patient.: Yes I have reviewed all pertinent clinical information: Yes Notes (Text): 11/21/16 16:[address] Newton note
[2016-11-21 07:19] LABS: MAGNESIUM 1.5 mg/dL (1.7-2.2); PHOSPHOROUS 5.1 mg/dL (2.5-4.5); POTASSIUM 3.1 mmol/L (3.6-5.0); TOTAL PROTEIN 5.4 g/dL (5.8-8.3)
[2016-11-21 07:30] LABS: BILIRUBIN,TOTAL 20.7 mg/dL (0.2-1.3)
[2016-11-21 07:33] LABS: FIBRINOGEN 141.2 mg/dL (187-400); INR 1.81 (0.93-1.08)
[2016-11-21] MEDS: Budesonide 0.5 mg/2 ml Inhal Susp UD IH SCH ×2 (07:34→19:40)
--- NOTE | 2016-11-21 07:40 | RAD ---
HISTORY: intubated, f/u COMPARISON: Portable chest 11/20/2016. FINDINGS: Endotracheal tube and right chest port are unchanged in position. LUNGS: Limited inspiratory volume again appreciated. Medial left basilar airspace disease is unchanged with medial right basilar opacity diminished. No significant perihilar airspace changes representing interval improvement. PLEURA: No significant pleural effusion identified, no pneumothorax apparent. CARDIOVASCULAR: Cardiac silhouette appears stable remaining somewhat prominent with no pulmonary derangement identified. OSSEOUS STRUCTURES: No significant abnormalities. VISUALIZED UPPER ABDOMEN: Normal. OTHER FINDINGS: None. IMPRESSION: Mild interval improvement in airspace disease bilaterally though significant residual remains as left lower lobe posterior to the heart. Stable prominent cardiac silhouette.
[2016-11-21 07:41] LABS: HEMATOCRIT 20.8 % (36.0-48.0)
[2016-11-21] MEDS: DOBUTamine 500mg/250ml D5W 500 MG/250 ML BAG IV PRN (07:49)
--- NOTE | 2016-11-21 08:07 | CP.PCM.PN ---
<SolitarioStephanie - Last Filed: 11/21/16 08:39> Subjective - Date & Time of Evaluation Date of Evaluation: 11/21/16 Time of Evaluation: 08:04 - Subjective Subjective: Gastroenterology Fellow/PGY5 Progress Note Patient remains intubated, off sedation with versed as needed and on dobutamine support. 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 Unable to complete a 12-point review of systems on ventilator support. Objective - Vital Signs/Intake and Output Vital Signs (last 24 hours): Temp Pulse Resp BP Pulse Ox 97.8 F 108 H 17 123/81 99 11/21/16 04:00 11/21/16 07:49 11/20/16 22:47 11/21/16 07:49 11/21/16 07:15 Intake and Output: 11/21/16 11/21/16 06:59 18:59 Intake Total 1191 Output Total 400 Balance 791 - Medications Medications: Current Medications Albuterol/Ipratropium (Duoneb 3 Mg/0.5 Mg (3 Ml) Ud) 3 ml IH [id number] [facility] Last Admin: 11/21/16 07:34 Dose: 3 ml Budesonide (Pulmicort Respules) 0.5 mg IH [id number] [facility] Last Admin: 11/21/16 07:34 Dose: 0.5 mg Ergocalciferol (Drisdol 50,000 Intl Units Cap) 1 cap PO QWK [facility] Last Admin: 11/19/16 14:47 Dose: Not Given Folic Acid (Folic Acid) 1 mg PO DAILY [facility] Last Admin: 11/20/16 09:28 Dose: Not Given Furosemide (Lasix) 40 mg IVP DAILY [facility] Last Admin: 11/17/16 09:00 Dose: 40 mg Heparin Sodium (Porcine) (Heparin) 5,000 units SC Q12 [facility] PRN Reason: Protocol Last Admin: 11/16/16 21:44 Dose: Not Given Hydrocortisone Sodium Succinate (Solu-Cortef) 50 mg IVP Q8 [facility] Last Admin: 11/21/16 05:10 Dose: 50 mg Hydromorphone HCl (Dilaudid) 1 mg IVP Q3H PRN PRN Reason: Pain, severe (8-10) Last Admin: 11/20/16 16:02 Dose: 1 mg Hydroxyurea (Hydrea) 500 mg PO DAILY [facility] Last Admin: 11/20/16 09:36 Dose: Not Given Vancomycin HCl (Vancomycin 1gm) 1 gm in 250 mls @ 167 mls/hr IVPB DAILY [facility] PRN Reason: Protocol Last Admin: 11/20/16 10:12 Dose: 167 mls/hr Cefepime HCl (Maxipime 1gm) 1 gm in 100 mls @ 100 mls/hr IVPB Q24H [facility] PRN Reason: Protocol Last Admin: 11/20/16 22:37 Dose: 100 mls/hr Dextrose (Dextrose 10% In Water) 500 mls @ 20 mls/hr IV .Q24H [facility] Last Admin: 11/20/16 17:46 Dose: 20 mls/hr Propofol (Diprivan) 1,000 mg in 100 mls @ 2.259 mls/hr IV .Q24H PRN; Protocol; 5 MCG/KG/MIN PRN Reason: TITRATE PER MD ORDER Last Admin: 11/20/16 03:59 Dose: 50 mcg/kg/min, 22.589 mls/hr NOREPINEPHRINE BIT/0.9 % NACL (Levophed 4 Mg/ 250 Ml Ns Premixed) 4 mg in 250 mls @ 15 mls/hr IV .[id number] PRN; Protocol; 4 MCG/MIN PRN Reason: TITRATE PER MD ORDER Last Titration: 11/21/16 06:50 Dose: 0 mcg/min, 0 mls/hr Vasopressin 20 units/ Dextrose 101 mls @ 12.12 mls/hr IV .Q8H20M [facility]; 0.04 U/ MIN PRN Reason: Protocol Last Admin: 11/19/16 22:39 Dose: 12.12 mls/hr Metronidazole (Flagyl) 500 mg in 100 mls @ 100 mls/hr IVPB Q8 [facility] PRN Reason: Protocol Last Admin: 11/21/16 05:09 Dose: 100 mls/hr Dobutamine HCl/Dextrose (Dobutamine/Dextrose 5% 500mg/250ml) 500 mg in 250 mls @ 5.647 mls/hr IV .Q24H PRN; Protocol; 2.5 MCG/KG/MIN PRN Reason: TITRATE PER PROTOCOL Last Admin: 11/21/16 07:49 Dose: 5.647 mls/hr Lactic Acid (Lac-Hydrin 12% Cream (140 G)) 0 ea TOP DAILY PRN PRN Reason: Wound Lactulose (Generlac) 200 gm AL Q6 [facility] Stop: 11/24/16 12:01 Last Admin: 11/21/16 05:10 Dose: 200 gm Midazolam HCl (Versed Inj) 1 mg IVP Q3H PRN PRN Reason: sedation Last Admin: 11/21/16 06:08 Dose: 1 mg Multivitamins/Minerals (Therapeutic-M Tab) 1 tab PO DAILY [facility] Last Admin: 11/20/16 09:36 Dose: Not Given Non-Formulary Medication (Mometasone [Asmanex Twisthaler 110 Mcg]) 100 mcg IH BID [facility] Last Admin: 11/15/16 21:20 Dose: Not Given Pantoprazole Sodium (Protonix Inj) 40 mg IVP Q12 [facility] Last Admin: 11/20/16 21:54 Dose: 40 mg Rifaximin (Xifaxan) 550 mg PO BID [facility] PRN Reason: Protocol Last Admin: 11/19/16 14:57 Dose: Not Given - Labs Labs: 11/21/16 06:00 11/21/16 06:00 PT 19.5 Seconds (9.9-11.8) H 11/21/16 06:00 INR 1.81 (0.93-1.08) H 11/21/16 06:00 APTT 83.0 Seconds (23.7-30.8) H* 11/19/16 10:00 - Constitutional Appears: Chronically Ill, Other - Head Exam Head Exam: ATRAUMATIC, NORMOCEPHALIC - Eye Exam Eye Exam: PERRL, Scleral icterus Pupil Exam: PERRL. absent: Miosis, Mydriatic - ENT Exam ENT Exam: Mucous Membranes Dry, Normal Oropharynx - Neck Exam Neck Exam: Normal Inspection - Respiratory Exam Respiratory Exam: Rhonchi. absent: Wheezes - Cardiovascular Exam Cardiovascular Exam: Tachycardia, +S1, +S2. absent: Rubs - GI/Abdominal Exam GI & Abdominal Exam: Distended, Soft, Hypoactive Bowel Sounds, Organomegaly. absent: Tenderness, Rebound - Extremities Exam Additional comments: 2-3+ B/L LE pitting edema, B/L UE edema - Neurological Exam Additional comments: on ventilator support, unable to assess - Psychiatric Exam Additional comments: on ventilator support, unable to assess - Skin Skin Exam: Dry, Intact, Normal Color, Warm Additional comments: right port-a-cath site C/D/I, left femoral dialysis site with dressing in place C/D/I Assessment and Plan - Assessment and Plan (Free Text) Assessment: 36 year old female with history of sCHF, EF 35-40% with Grade 3 diastolic dysfunction, Bipolar disorder, asthma, cerebral palsy, sickle cell disease, and cirrhosis presenting with abdominal pain, nausea, and vomiting. Active treatment of hypoxic VDRF in setting of hepatic/metabolic encephalopathy, shock on vasopressor support, Upper GI bleed 2/2 traumatic gastric tube placement POD2 (11/19) EGD showing upper 1/3 esophagus visible vessel with mucosal trauma/ active oozing s/p epinephrine injection/BiPolar cautery, progressive liver failure 2/2 acute sickle cell intrahepatic cholestasis with resultant renal injury complicated by secondary hemochromatosis. Plan: >MELD 33 (11/20), today 36 >improved urine output overnight, sedation weaned, vasopressors being titrated down >on cpap trial >11/20 received dialysis ultrafiltration with 1.1Liters removed >11/20 received RBC exchange >correct coagulopathy >continue Lactulose enemas, titrate to goal 2-3 BMs/ day >continue PPI BID, recommend no placement of gastric tube for healing >[facility] and [facility]- not transplant candidate, unstable critical status >11/19 and 11/20 family discussion held explaining liver failure, critical clinical status, and not transplant candidate-[facility] and [facility] >will follow clinical condition and re-assess clinical status >poor prognosis <Shaheed Renee - Last Filed: 11/21/16 09:12> Objective - Vital Signs/Intake and Output Vital Signs (last 24 hours): Temp Pulse Resp BP Pulse Ox 97.8 F 108 H 17 123/81 99 11/21/16 04:00 11/21/16 07:49 11/20/16 22:47 11/21/16 07:49 11/21/16 07:15 Intake and Output: 11/21/16 11/21/16 06:59 18:59 Intake Total 1191 Output Total 400 Balance 791 - Medications Medications: Current Medications Albuterol/Ipratropium (Duoneb 3 Mg/0.5 Mg (3 Ml) Ud) 3 ml IH [id number] [facility] Last Admin: 11/21/16 07:34 Dose: 3 ml Budesonide (Pulmicort Respules) 0.5 mg IH [id number] [facility] Last Admin: 11/21/16 07:34 Dose: 0.5 mg Ergocalciferol (Drisdol 50,000 Intl Units Cap) 1 cap PO QWK [facility] Last Admin: 11/19/16 14:47 Dose: Not Given Folic Acid (Folic Acid) 1 mg PO DAILY [facility] Last Admin: 11/20/16 09:28 Dose: Not Given Furosemide (Lasix) 40 mg IVP DAILY [facility] Last Admin: 11/17/16 09:00 Dose: 40 mg Heparin Sodium (Porcine) (Heparin) 5,000 units SC Q12 [facility] PRN Reason: Protocol Last Admin: 11/16/16 21:44 Dose: Not Given Hydrocortisone Sodium Succinate (Solu-Cortef) 50 mg IVP Q8 [facility] Last Admin: 11/21/16 05:10 Dose: 50 mg Hydromorphone HCl (Dilaudid) 1 mg IVP Q3H PRN PRN Reason: Pain, severe (8-10) Last Admin: 11/20/16 16:02 Dose: 1 mg Hydroxyurea (Hydrea) 500 mg PO DAILY [facility] Last Admin: 11/20/16 09:36 Dose: Not Given Vancomycin HCl (Vancomycin 1gm) 1 gm in 250 mls @ 167 mls/hr IVPB DAILY [facility] PRN Reason: Protocol Last Admin: 11/20/16 10:12 Dose: 167 mls/hr Cefepime HCl (Maxipime 1gm) 1 gm in 100 mls @ 100 mls/hr IVPB Q24H [facility] PRN Reason: Protocol Last Admin: 11/20/16 22:37 Dose: 100 mls/hr Dextrose (Dextrose 10% In Water) 500 mls @ 20 mls/hr IV .Q24H [facility] Last Admin: 11/20/16 17:46 Dose: 20 mls/hr Propofol (Diprivan) 1,000 mg in 100 mls @ 2.259 mls/hr IV .Q24H PRN; Protocol; 5 MCG/KG/MIN PRN Reason: TITRATE PER MD ORDER Last Admin: 11/20/16 03:59 Dose: 50 mcg/kg/min, 22.589 mls/hr NOREPINEPHRINE BIT/0.9 % NACL (Levophed 4 Mg/ 250 Ml Ns Premixed) 4 mg in 250 mls @ 15 mls/hr IV .[id number] PRN; Protocol; 4 MCG/MIN PRN Reason: TITRATE PER MD ORDER Last Titration: 11/21/16 06:50 Dose: 0 mcg/min, 0 mls/hr Vasopressin 20 units/ Dextrose 101 mls @ 12.12 mls/hr IV .Q8H20M [facility]; 0.04 U/ MIN PRN Reason: Protocol Last Admin: 11/19/16 22:39 Dose: 12.12 mls/hr Metronidazole (Flagyl) 500 mg in 100 mls @ 100 mls/hr IVPB Q8 [facility] PRN Reason: Protocol Last Admin: 11/21/16 05:09 Dose: 100 mls/hr Dobutamine HCl/Dextrose (Dobutamine/Dextrose 5% 500mg/250ml) 500 mg in 250 mls @ 5.647 mls/hr IV .Q24H PRN; Protocol; 2.5 MCG/KG/MIN PRN Reason: TITRATE PER PROTOCOL Last Admin: 11/21/16 07:49 Dose: 5.647 mls/hr Lactic Acid (Lac-Hydrin 12% Cream (140 G)) 0 ea TOP DAILY PRN PRN Reason: Wound Lactulose (Generlac) 200 gm AL Q6 [facility] Stop: 11/24/16 12:01 Last Admin: 11/21/16 05:10 Dose: 200 gm Multivitamins/Minerals (Therapeutic-M Tab) 1 tab PO DAILY [facility] Last Admin: 11/20/16 09:36 Dose: Not Given Pantoprazole Sodium (Protonix Inj) 40 mg IVP Q12 [facility] Last Admin: 11/20/16 21:54 Dose: 40 mg Rifaximin (Xifaxan) 550 mg PO BID [facility] PRN Reason: Protocol Last Admin: 11/19/16 14:57 Dose: Not Given - Labs Labs: 11/21/16 06:00 11/21/16 06:00 PT 19.5 Seconds (9.9-11.8) H 11/21/16 06:00 INR 1.81 (0.93-1.08) H 11/21/16 06:00 APTT 83.0 Seconds (23.7-30.8) H* 11/19/16 10:00 Attending/Attestation - Attestation I have personally seen and examined this patient.: Yes I have fully participated in the care of the patient.: Yes I have reviewed all pertinent clinical information, including history, physical exam and plan: Yes Notes (Text): 11/21/16 09:08 36 year old female with h/o CHF, Bipolar disorder, asthma, CP, SCD, and cirrhosis admitted to ICU with respiratory failure, septic shock on pressor support, upper GI bleeding, and cirrhosis with decompensation in the setting of sickle crisis. 1. Cirrhosis 2. Upper GI bleeding 3. Hepatic encephalopathy Plan: -some improvement today, decreased pressor support, improving respiratory status and possible extubation today -weaning sedation per ICU -no signs of GI bleeding today -remains critically ill with decompensated cirrhosis -receievd UF / Red cell exchange yesterday -continue PPI IV BID -[facility] declined transfer for consideration of liver transplant -continue aggressive supportive measures
[2016-11-21 08:43] LABS: ARTERIAL BLOOD GAS HCO3 28.5 mmol/L (21-28); ARTERIAL BLOOD GAS O2 CAPACITY 10.7 mL/dl (16-24); ARTERIAL BLOOD GAS O2 CONTENT 10.8 ML/dl (15-23); ARTERIAL BLOOD GAS PH 7.44 (7.35-7.45); ARTERIAL BLOOD HGB O2 SAT 95.6 % (95.0-98.0); CARBOXYHEMOGLOBIN 2.6 % (0.5-1.5); HHB -0.8 % (0-5); METHEMOGLOBIN 2.5 % (0.0-3.0)
[2016-11-21 08:54] LABS: ANISOCYTOSIS SLIGHT; BAND 4 % (0-2); CORRECTED WBC 3.2 K/mm3 (4.5-11.0); HYPOCHROMIA SLIGHT; MICROCYTOSIS 1+; NEUTROPHIL 70 % (50.0-70.0); NUCLEATED RED BLOOD CELL 566 %; PLATELET ESTIMATE LOW (NORMAL); POIKILOCYTOSIS 1+
[2016-11-21 08:55] LABS: OVALOCYTES SLIGHT
[2016-11-21 09:01] LABS: HEMATOCRIT 27.2 % (35.0-45.0); HEMOGLOBIN 9.5 g/dL (11.7-15.5); RDW 15.2 % (11.0-15.0)
[2016-11-21] MEDS ORDERED: Magnesium Sulfate 2 GM in Sodium Chloride 0.9% 100 ML IVPB ONE (09:25)
[2016-11-21] MEDS: Multivitamin With Minerals Tab PO SCH (10:07)
[2016-11-21] MEDS: HYDROmorphone 0.5 mg/0.5 ml ISec IVP PRN (11:32)
[2016-11-21] MEDS ORDERED: Phytonadione 10 MG in Sodium Chloride 0.9% 50 ML IV ONE (11:34)
[2016-11-21] MEDS ORDERED: Phytonadione 10 mg/ml Inj (Adult) ONE (11:41)
--- NOTE | 2016-11-21 11:43 | CP.PCM.PN ---
Subjective - Date & Time of Evaluation Date of Evaluation: 11/21/16 Time of Evaluation: 11:10 - Subjective Subjective: Patient S&E at bedside. Patient is off pressors. Currently extubated and on high flow O2. Patient opens eyes to verbal and painful stimuli. Does not follow simple commands. Objective - Vital Signs/Intake and Output Vital Signs (last 24 hours): Temp Pulse Resp BP Pulse Ox 97.8 F 102 H 21 113/74 98 11/21/16 08:00 11/21/16 11:00 11/21/16 11:00 11/21/16 11:00 11/21/16 11:00 Intake and Output: 11/21/16 11/21/16 06:59 18:59 Intake Total 1191 Output Total 400 Balance 791 - Medications Medications: Current Medications Albuterol/Ipratropium (Duoneb 3 Mg/0.5 Mg (3 Ml) Ud) 3 ml IH [id number] [facility] Last Admin: 11/21/16 07:34 Dose: 3 ml Budesonide (Pulmicort Respules) 0.5 mg IH [id number] [facility] Last Admin: 11/21/16 07:34 Dose: 0.5 mg Ergocalciferol (Drisdol 50,000 Intl Units Cap) 1 cap PO QWK [facility] Last Admin: 11/19/16 14:47 Dose: Not Given Folic Acid (Folic Acid) 1 mg PO DAILY [facility] Last Admin: 11/21/16 10:07 Dose: Not Given Furosemide (Lasix) 40 mg IVP DAILY [facility] Last Admin: 11/17/16 09:00 Dose: 40 mg Heparin Sodium (Porcine) (Heparin) 5,000 units SC Q12 [facility] PRN Reason: Protocol Last Admin: 11/16/16 21:44 Dose: Not Given Hydrocortisone Sodium Succinate (Solu-Cortef) 50 mg IVP Q8 [facility] Last Admin: 11/21/16 05:10 Dose: 50 mg Hydromorphone HCl (Dilaudid) 1 mg IVP Q3H PRN PRN Reason: Pain, severe (8-10) Last Admin: 11/21/16 11:32 Dose: 1 mg Hydroxyurea (Hydrea) 500 mg PO DAILY [facility] Last Admin: 11/21/16 10:08 Dose: Not Given Vancomycin HCl (Vancomycin 1gm) 1 gm in 250 mls @ 167 mls/hr IVPB DAILY [facility] PRN Reason: Protocol Last Admin: 11/20/16 10:12 Dose: 167 mls/hr Cefepime HCl (Maxipime 1gm) 1 gm in 100 mls @ 100 mls/hr IVPB Q24H [facility] PRN Reason: Protocol Last Admin: 11/20/16 22:37 Dose: 100 mls/hr Dextrose (Dextrose 10% In Water) 500 mls @ 20 mls/hr IV .Q24H [facility] Last Admin: 11/20/16 17:46 Dose: 20 mls/hr Propofol (Diprivan) 1,000 mg in 100 mls @ 2.259 mls/hr IV .Q24H PRN; Protocol; 5 MCG/KG/MIN PRN Reason: TITRATE PER MD ORDER Last Admin: 11/20/16 03:59 Dose: 50 mcg/kg/min, 22.589 mls/hr NOREPINEPHRINE BIT/0.9 % NACL (Levophed 4 Mg/ 250 Ml Ns Premixed) 4 mg in 250 mls @ 15 mls/hr IV .[id number] PRN; Protocol; 4 MCG/MIN PRN Reason: TITRATE PER MD ORDER Last Titration: 11/21/16 06:50 Dose: 0 mcg/min, 0 mls/hr Vasopressin 20 units/ Dextrose 101 mls @ 12.12 mls/hr IV .Q8H20M [facility]; 0.04 U/ MIN PRN Reason: Protocol Last Admin: 11/19/16 22:39 Dose: 12.12 mls/hr Metronidazole (Flagyl) 500 mg in 100 mls @ 100 mls/hr IVPB Q8 [facility] PRN Reason: Protocol Last Admin: 11/21/16 05:09 Dose: 100 mls/hr Dobutamine HCl/Dextrose (Dobutamine/Dextrose 5% 500mg/250ml) 500 mg in 250 mls @ 5.647 mls/hr IV .Q24H PRN; Protocol; 2.5 MCG/KG/MIN PRN Reason: TITRATE PER PROTOCOL Last Admin: 11/21/16 07:49 Dose: 5.647 mls/hr Potassium Chloride (Potassium Chloride 20 Meq/100 Ml) 20 meq in 100 mls @ 50 mls/hr IVPB Q2H [facility] Stop: 11/21/16 13:29 Last Admin: 11/21/16 09:44 Dose: 50 mls/hr Phytonadione 10 mg/ Sodium (Chloride) 51 mls @ 100 mls/hr IV ONCE ONE Stop: 11/21/16 12:04 Lactic Acid (Lac-Hydrin 12% Cream (140 G)) 0 ea TOP DAILY PRN PRN Reason: Wound Lactulose (Generlac) 200 gm LA Q6 [facility] Stop: 11/24/16 12:01 Last Admin: 11/21/16 05:10 Dose: 200 gm Multivitamins/Minerals (Therapeutic-M Tab) 1 tab PO DAILY [facility] Last Admin: 11/21/16 10:07 Dose: Not Given Pantoprazole Sodium (Protonix Inj) 40 mg IVP Q12 [facility] Last Admin: 11/21/16 10:06 Dose: 40 mg Rifaximin (Xifaxan) 550 mg PO BID [facility] PRN Reason: Protocol Last Admin: 11/19/16 14:57 Dose: Not Given - Labs Labs: 11/21/16 06:00 11/21/16 06:00 PT 19.5 Seconds (9.9-11.8) H 11/21/16 06:00 INR 1.81 (0.93-1.08) H 11/21/16 06:00 APTT 83.0 Seconds (23.7-30.8) H* 11/19/16 10:00 - Constitutional Appears: Chronically Ill - Head Exam Head Exam: NORMOCEPHALIC - Eye Exam Eye Exam: Scleral icterus - ENT Exam ENT Exam: Mucous Membranes Dry - Respiratory Exam Respiratory Exam: NORMAL BREATHING PATTERN - Cardiovascular Exam Cardiovascular Exam: Tachycardia, +S1, +S2 - GI/Abdominal Exam GI & Abdominal Exam: Distended, Tenderness. absent: Soft Additional comments: Moans to deep palpation of abdomen - Neurological Exam Neurological Exam: absent: Alert, Oriented x3 - Skin Skin Exam: Warm Assessment and Plan - Assessment and Plan (Free Text) Assessment: 36yo F with multi-organ failure secondary to sickle cell vasoocclusive disease. Surgery consulted for possible colitis. - Colitis, unlikely. Changes in bowel likely 2/2 to edema - Liver failure. Worsening LFTs - Abx as per ID - Medical management per ICU team - No plan for sugical intervention. Patient is poor candidate and very high risk. - Prognosis poor -Will sign off. Re-consult if needed. Thank you. Further recs as per Dr. Prateek Rodgers PGY-2
--- NOTE | 2016-11-21 12:19 | PN ---
DATE: 11/21/2016 SUBJECTIVE: The patient is seen and examined at bedside. She is off propofol drip; however, required several Versed shots p.r.n. overnight. She is on pressure support 5/5 with a FiO2 of 40%. Her tidal volume up to 400 and rapid shallow breathing index less than 100. Her end-tidal CO2 on the monitor 37. ABG is pending. She is off pressors. She is on dobutamine 5 mcg/kg/minute. PHYSICAL EXAMINATION VITAL SIGNS: Her blood pressure is 123/81 with heart rate 108. HEENT: Head and neck atraumatic. LUNGS: Few crackles bibasilary. HEART: Regular rate and rhythm. S1 and S2 distant. ABDOMEN: Soft, nontender, mildly distended. MUSCULOSKELETAL EXAM: A 1+to 2+ bilateral pedal and ankle edema, however, appears to be a little better than yesterday. SKIN: Moist. PSYCHIATRIC: The patient is responding to touch stimuli. Of note, urine output somewhat picked up and was 400 mL last night. Her creatinine went down to 1.7 from 2. LABORATORY DATA: WBC 21.3, hemoglobin 8.1, platelet count 93. INR 1.81. Fibrinogen 141.2. Sodium 136, potassium 3.1 (the patient is on hemodialysis), chloride 93, carbon dioxide is 29, BUN 39, creatinine 1.8 and glucose 144. Total bilirubin 20.7. AST is 749 down from 1113, ALT 168, alkaline phosphatase 484. MEDICATIONS: DuoNeb every 6 hours, Pulmicort every 12 hours, D10 at 20 mL/hour, dobutamine, Flagyl, folic acid, hydrocortisone 50 mg IV q. 8 hours, Dilaudid p.r.n., hydroxyurea 500 mg p.o. daily, lactulose, cefepime, Versed p.r.n., Protonix, and deferoxamine. ASSESSMENT AND PLAN: This is a 36-year-old lady with distributive shock with multiorgan system failure including renal failure, respiratory failure and liver failure. The patient hemodynamically improved. She is off of pressors. She got two exchange transfusions since her admission to ICU and the last one was yesterday. She also underwent dialysis yesterday as well. Her urine output started to flower buncher or picker. Her white cell count is going down. Overall, lactic acidosis is improving slightly. The patient tolerated presure support trial and if ABG is acceptable the patient will be extubated to BiPAP. We will continue to target euvolemia, euglycemia, normothermia and oxygen saturation more than 90%. We will continue with deep venous thrombosis and gastrointestinal prophylaxis. We will continue with broad-spectrum antibiotics as well follow septic workup. ID service, GI service, and hematology service are on board. Addendum: successfully extubated, to HFNC 40/60. Comfortable hemodynamically and respiratory nicole stable. HD is in progress. On dobutamine 5 mcg/kg/min ccm time 40 min Rene Newton MD MTDD
[2016-11-21] MEDS: Cefepime 1gm in NS 100ml 1 GM/100 ML BAG IVPB SCH (12:38)
--- NOTE | 2016-11-21 14:26 | CP.PCM.CON ---
History of Present Illness - History of Present Illness History of Present Illness: Palliative consult requested by Dr Tory Green Reason: Goals of care 36 year female with history of sickle cell disease, bipolar disorder, cerebral palsy and asthma who presented with RUQ abdominal pain., nausea and vomiting. She also reported having diarrhea. She denied SOB, fever,chills or urinary symptoms. She was admitted in sickle cell crisis. She as transferred to ICU after she developed shortness of breath requiring intubation and acute renal failure.Patient remains in multi organ failure. PMHx: CP, bipolar disorder, sickle cell disease, bilateral hip surgery, asthma. Social History: Former smoker, no alcohol or drug use. Single, lives in a intermediate. Family History: Sister and nephew have Sickle cell disease. Maternal aunt had breast cancer. Advance Care Planning: The patient does not have an Advanced Directive. R3view of System: Unable to obtain, patient intubated, altered mental staus Past Patient History - Infectious Disease Hx of Infectious Diseases: None - Tetanus Immunizations Tetanus Immunization: Up to Date - Past Medical History & Family History Past Medical History?: Yes - Past Social History Smoking Status: Former Smoker - CARDIAC Hx Cardiac Disorders: Yes Hx Hypertension: Yes - PULMONARY Hx Asthma: Yes - NEUROLOGICAL Hx Neurological Disorder: No Other/Comment: CP - HEENT Hx HEENT Problems: No - RENAL Hx Chronic Kidney Disease: No - ENDOCRINE/METABOLIC Hx Endocrine Disorders: Yes - HEMATOLOGICAL/ONCOLOGICAL Hx Blood Transfusions: Yes Hx Blood Transfusion Reaction: No - INTEGUMENTARY Hx Dermatological Problems: Yes Hx Eczema: Yes - MUSCULOSKELETAL/RHEUMATOLOGICAL Hx Falls: No - GASTROINTESTINAL Hx Gastrointestinal Disorders: Yes Hx Gastroesophageal Reflux: Yes Hx Pancreatitis: Yes - GENITOURINARY/GYNECOLOGICAL Hx Genitourinary Disorders: Yes Hx Urinary Tract Infection: Yes - PSYCHIATRIC Hx Psychophysiologic Disorder: Yes Hx Anxiety: Yes Hx Bipolar Disorder: Yes Hx Substance Use: No - SURGICAL HISTORY Hx Surgeries: Yes - ANESTHESIA Hx Anesthesia Reactions: No Hx Malignant Hyperthermia: No Meds Allergies/Adverse Reactions: Allergies Allergy/AdvReac Type Severity Reaction Status Date / Time acetaminophen Allergy RASH Verified 09/24/16 12:42 aspirin Allergy RASH Verified 09/24/16 12:42 coconut oil Allergy RASH Verified 09/24/16 12:42 morphine Allergy SWELLING Verified 09/24/16 12:42 mushroom Allergy URTICARIA Verified 09/24/16 12:42 oxycodone Allergy RASH Verified 09/24/16 12:42 - Medications Medications: Current Medications Albuterol/Ipratropium (Duoneb 3 Mg/0.5 Mg (3 Ml) Ud) 3 ml IH [id number] [facility] Last Admin: 11/21/16 13:33 Dose: 3 ml Budesonide (Pulmicort Respules) 0.5 mg IH [id number] [facility] Last Admin: 11/21/16 07:34 Dose: 0.5 mg Ergocalciferol (Drisdol 50,000 Intl Units Cap) 1 cap PO QWK [facility] Last Admin: 11/19/16 14:47 Dose: Not Given Folic Acid (Folic Acid) 1 mg PO DAILY [facility] Last Admin: 11/21/16 10:07 Dose: Not Given Furosemide (Lasix) 40 mg IVP DAILY [facility] Last Admin: 11/17/16 09:00 Dose: 40 mg Heparin Sodium (Porcine) (Heparin) 5,000 units SC Q12 ARLETTE PRN Reason: Protocol Last Admin: 11/16/16 21:44 Dose: Not Given Hydrocortisone Sodium Succinate (Solu-Cortef) 50 mg IVP Q8 [facility] Last Admin: 11/21/16 05:10 Dose: 50 mg Hydroxyurea (Hydrea) 500 mg PO DAILY [facility] Last Admin: 11/21/16 10:08 Dose: Not Given Vancomycin HCl (Vancomycin 1gm) 1 gm in 250 mls @ 167 mls/hr IVPB DAILY [facility] PRN Reason: Protocol Last Admin: 11/20/16 10:12 Dose: 167 mls/hr Cefepime HCl (Maxipime 1gm) 1 gm in 100 mls @ 100 mls/hr IVPB Q24H ARLETTE PRN Reason: Protocol Last Admin: 11/21/16 12:38 Dose: 100 mls/hr Dextrose (Dextrose 10% In Water) 500 mls @ 20 mls/hr IV .Q24H ARLETTE Last Admin: 11/20/16 17:46 Dose: 20 mls/hr Propofol (Diprivan) 1,000 mg in 100 mls @ 2.259 mls/hr IV .Q24H PRN; Protocol; 5 MCG/KG/MIN PRN Reason: TITRATE PER MD ORDER Last Admin: 11/20/16 03:59 Dose: 50 mcg/kg/min, 22.589 mls/hr NOREPINEPHRINE BIT/0.9 % NACL (Levophed 4 Mg/ 250 Ml Ns Premixed) 4 mg in 250 mls @ 15 mls/hr IV .[id number] PRN; Protocol; 4 MCG/MIN PRN Reason: TITRATE PER MD ORDER Last Titration: 11/21/16 06:50 Dose: 0 mcg/min, 0 mls/hr Vasopressin 20 units/ Dextrose 101 mls @ 12.12 mls/hr IV .[id number] ARLETTE; 0.04 U/ MIN PRN Reason: Protocol Last Admin: 11/19/16 22:39 Dose: 12.12 mls/hr Metronidazole (Flagyl) 500 mg in 100 mls @ 100 mls/hr IVPB Q8 ARLETTE PRN Reason: Protocol Last Admin: 11/21/16 05:09 Dose: 100 mls/hr Dobutamine HCl/Dextrose (Dobutamine/Dextrose 5% 500mg/250ml) 500 mg in 250 mls @ 5.647 mls/hr IV .Q24H PRN; Protocol; 2.5 MCG/KG/MIN PRN Reason: TITRATE PER PROTOCOL Last Admin: 11/21/16 07:49 Dose: 5.647 mls/hr Lactic Acid (Lac-Hydrin 12% Cream (140 G)) 0 ea TOP DAILY PRN PRN Reason: Wound Lactulose (Generlac) 200 gm TX Q6 [facility] Stop: 11/24/16 12:01 Last Admin: 11/21/16 05:10 Dose: 200 gm Multivitamins/Minerals (Therapeutic-M Tab) 1 tab PO DAILY [facility] Last Admin: 11/21/16 10:07 Dose: Not Given Pantoprazole Sodium (Protonix Inj) 40 mg IVP Q12 [facility] Last Admin: 11/21/16 10:06 Dose: 40 mg Rifaximin (Xifaxan) 550 mg PO BID ARLETTE PRN Reason: Protocol Last Admin: 11/19/16 14:57 Dose: Not Given Physical Exam - Constitutional Appears: Chronically Ill - Eye Exam Eye Exam: Normal appearance, PERRL - ENT Exam ENT Exam: Mucous Membranes Moist - Neck Exam Neck exam: Positive for: Normal Inspection - Respiratory Exam Respiratory Exam: Decreased Breath Sounds, Rales - Cardiovascular Exam Cardiovascular Exam: +S1, +S2 - GI/Abdominal Exam GI & Abdominal Exam: Diminished Bowel Sounds, Distended (2), Soft - Extremities Exam Additional comments: lower extremity edema - Neurological Exam Neurological exam: Altered - Skin Skin Exam: Dry, Warm - Additional Findings Additional findings: Palliative performance scale rating 30 % Results - Vital Signs Recent Vital Signs: Last Vital Signs Temp 97.8 F 11/21/16 08:00 Pulse 105 H 11/21/16 12:30 Resp 23 11/21/16 12:30 BP 108/77 11/21/16 12:30 Pulse Ox 99 11/21/16 12:30 - Labs Result Diagrams: 11/21/16 06:00 11/21/16 06:00 Labs: Laboratory Results - last 24 hr 11/16/16 11/19/16 11/20/16 20:00 10:05 07:37 WBC RBC Hgb Hct MCV MCH MCHC RDW Plt Count Manual Plt Count MPV Baso % (Auto) Baso # Corrected WBC (Man) Neutrophils % (Manual) Band Neutrophils % Lymphocytes % (Manual) Monocytes % (Manual) Nucleated RBC % Platelet Evaluation Hypochromasia Poikilocytosis (manual Anisocytosis (manual) Microcytosis (manual) Ovalocytes Acanthocytes (Spur) Hemoglobinopathy Red Blood Count Hemoglobinopathy Hct Hemoglobinopathy Hgb Hemoglobinopathy MCV Hemoglobinopathy MCH Hemoglobinopathy RDW PT INR Fibrinogen pCO2 pO2 HCO3 ABG pH ABG Total CO2 ABG O2 Saturation ABG O2 Content ABG Base Excess ABG Hemoglobin ABG Carboxyhemoglobin POC ABG HHb (Measured) ABG Methemoglobin ABG O2 Capacity ABG Potassium VBG pH VBG pCO2 VBG HCO3 VBG Total CO2 VBG O2 Sat (Calc) VBG Base Excess VBG Potassium Hgb O2 Saturation Sodium Chloride Glucose Lactate FiO2 Potassium Carbon Dioxide Anion Gap BUN Creatinine Est GFR ( Amer) Est GFR (Non-Af Amer) POC Glucose (mg/dL) Random Glucose Calcium Phosphorus Magnesium Total Bilirubin AST ALT Alkaline Phosphatase Total Creatine Kinase Total Protein Albumin Globulin Albumin/Globulin Ratio Arterial Blood Potassium Venous Blood Potassium Vancomycin Trough Ur L.pneumophila Ag Negative Blood Type B POSITIVE Antibody Screen Negative Crossmatch See Detail See Detail BBK History Checked Patient has bt 11/20/16 11/20/16 11/20/16 11:27 17:40 20:31 WBC 13.9 H D RBC 3.04 L Hgb 9.0 L D Hct 25.5 L MCV 83.9 MCH 29.6 MCHC 35.3 RDW 14.9 H Plt Count 15 L* Manual Plt Count MPV 10.3 Baso % (Auto) 0.6 Baso # 0.09 Corrected WBC (Man) Neutrophils % (Manual) Band Neutrophils % Lymphocytes % (Manual) Monocytes % (Manual) Nucleated RBC % Platelet Evaluation Hypochromasia Poikilocytosis (manual Anisocytosis (manual) Microcytosis (manual) Ovalocytes Acanthocytes (Spur) Hemoglobinopathy Red Blood Count 3.11 L Hemoglobinopathy Hct 27.2 L Hemoglobinopathy Hgb 9.5 L Hemoglobinopathy MCV 87.4 Hemoglobinopathy MCH 30.7 Hemoglobinopathy RDW 15.2 H PT INR Fibrinogen pCO2 pO2 HCO3 ABG pH ABG Total CO2 ABG O2 Saturation ABG O2 Content ABG Base Excess ABG Hemoglobin ABG Carboxyhemoglobin POC ABG HHb (Measured) ABG Methemoglobin ABG O2 Capacity ABG Potassium VBG pH VBG pCO2 VBG HCO3 VBG Total CO2 VBG O2 Sat (Calc) VBG Base Excess VBG Potassium Hgb O2 Saturation Sodium Chloride Glucose Lactate FiO2 Potassium Carbon Dioxide Anion Gap BUN Creatinine Est GFR ( Amer) Est GFR (Non-Af Amer) POC Glucose (mg/dL) 198 H Random Glucose Calcium Phosphorus Magnesium Total Bilirubin AST ALT Alkaline Phosphatase Total Creatine Kinase Total Protein Albumin Globulin Albumin/Globulin Ratio Arterial Blood Potassium Venous Blood Potassium Vancomycin Trough Ur L.pneumophila Ag Blood Type Antibody Screen Crossmatch BBK History Checked 11/20/16 11/20/16 11/21/16 20:31 20:31 00:40 WBC RBC Hgb Hct MCV MCH MCHC RDW Plt Count Manual Plt Count MPV Baso % (Auto) Baso # Corrected WBC (Man) Neutrophils % (Manual) Band Neutrophils % Lymphocytes % (Manual) Monocytes % (Manual) Nucleated RBC % Platelet Evaluation Hypochromasia Poikilocytosis (manual Anisocytosis (manual) Microcytosis (manual) Ovalocytes Acanthocytes (Spur) Hemoglobinopathy Red Blood Count Hemoglobinopathy Hct Hemoglobinopathy Hgb Hemoglobinopathy MCV Hemoglobinopathy MCH Hemoglobinopathy RDW PT INR Fibrinogen pCO2 pO2 22 L 56 H HCO3 ABG pH ABG Total CO2 ABG O2 Saturation ABG O2 Content ABG Base Excess ABG Hemoglobin ABG Carboxyhemoglobin POC ABG HHb (Measured) ABG Methemoglobin ABG O2 Capacity ABG Potassium VBG pH 7.36 7.34 VBG pCO2 47.0 53.0 VBG HCO3 26.6 28.6 H VBG Total CO2 28.0 30.2 H VBG O2 Sat (Calc) 73.7 H 95.8 H VBG Base Excess 0.6 1.8 VBG Potassium 3.4 L 3.2 L Hgb O2 Saturation Sodium 134 133.0 133.0 Chloride 93 L 96.0 L 97.0 L Glucose 197 H 184 H Lactate 6.4 H* 5.0 H* FiO2 21.0 21.0 Potassium 3.3 L Carbon Dioxide 26 Anion Gap 18 BUN 37 H Creatinine 1.7 H Est GFR ( Amer) 41 Est GFR (Non-Af Amer) 34 POC Glucose (mg/dL) Random Glucose 173 H Calcium 6.5 L* Phosphorus Magnesium Total Bilirubin 19.0 H* AST 1113 H ALT 184 H Alkaline Phosphatase 512 H D Total Creatine Kinase 165 Total Protein 5.2 L Albumin 2.5 L Globulin 2.7 Albumin/Globulin Ratio 0.9 L Arterial Blood Potassium Venous Blood Potassium 3.4 L 3.2 L Vancomycin Trough Ur L.pneumophila Ag Blood Type Antibody Screen Crossmatch BBK History Checked 11/21/16 11/21/16 11/21/16 05:45 06:00 06:00 WBC 21.3 H D RBC 2.57 L Hgb 8.1 L Hct 20.8 L* MCV 80.9 D MCH 31.5 MCHC 38.9 H RDW 15.4 H Plt Count 93 L Manual Plt Count MPV 8.5 Baso % (Auto) Baso # Corrected WBC (Man) 3.2 L Neutrophils % (Manual) 70 Band Neutrophils % 4 H Lymphocytes % (Manual) 16 L Monocytes % (Manual) 10 H Nucleated RBC % 566 Platelet Evaluation Low Hypochromasia Slight Poikilocytosis (manual 1+ Anisocytosis (manual) Slight Microcytosis (manual) 1+ Ovalocytes Slight Acanthocytes (Spur) 1+ Hemoglobinopathy Red Blood Count Hemoglobinopathy Hct Hemoglobinopathy Hgb Hemoglobinopathy MCV Hemoglobinopathy MCH Hemoglobinopathy RDW PT 19.5 H INR 1.81 H Fibrinogen 141.2 L pCO2 35 pO2 168.0 H HCO3 22.7 ABG pH 7.42 ABG Total CO2 23.8 ABG O2 Saturation 101.0 H ABG O2 Content ABG Base Excess -1.3 ABG Hemoglobin ABG Carboxyhemoglobin POC ABG HHb (Measured) ABG Methemoglobin ABG O2 Capacity ABG Potassium 2.8 L VBG pH VBG pCO2 VBG HCO3 VBG Total CO2 VBG O2 Sat (Calc) VBG Base Excess VBG Potassium Hgb O2 Saturation Sodium 138.0 Chloride 108.0 H Glucose 130 H Lactate 3.7 H FiO2 40.0 Potassium Carbon Dioxide Anion Gap BUN Creatinine Est GFR ( Amer) Est GFR (Non-Af Amer) POC Glucose (mg/dL) Random Glucose Calcium Phosphorus Magnesium Total Bilirubin AST ALT Alkaline Phosphatase Total Creatine Kinase Total Protein Albumin Globulin Albumin/Globulin Ratio Arterial Blood Potassium 2.8 L Venous Blood Potassium Vancomycin Trough Ur L.pneumophila Ag Blood Type Antibody Screen Crossmatch BBK History Checked 11/21/16 11/21/16 11/21/16 06:00 06:00 06:00 WBC RBC Hgb Hct MCV MCH MCHC RDW Plt Count Manual Plt Count 116 L MPV Baso % (Auto) Baso # Corrected WBC (Man) Neutrophils % (Manual) Band Neutrophils % Lymphocytes % (Manual) Monocytes % (Manual) Nucleated RBC % Platelet Evaluation Hypochromasia Poikilocytosis (manual Anisocytosis (manual) Microcytosis (manual) Ovalocytes Acanthocytes (Spur) Hemoglobinopathy Red Blood Count Hemoglobinopathy Hct Hemoglobinopathy Hgb Hemoglobinopathy MCV Hemoglobinopathy MCH Hemoglobinopathy RDW PT INR Fibrinogen pCO2 pO2 64 H HCO3 ABG pH ABG Total CO2 ABG O2 Saturation ABG O2 Content ABG Base Excess ABG Hemoglobin ABG Carboxyhemoglobin POC ABG HHb (Measured) ABG Methemoglobin ABG O2 Capacity ABG Potassium VBG pH 7.37 VBG pCO2 53.0 VBG HCO3 30.6 H VBG Total CO2 32.2 H VBG O2 Sat (Calc) 97.9 H VBG Base Excess 4.0 H VBG Potassium 3.1 L Hgb O2 Saturation Sodium 136 134.0 Chloride 93 L 97.0 L Glucose 159 H Lactate 4.8 H* FiO2 21.0 Potassium 3.1 L Carbon Dioxide 29 Anion Gap 17 BUN 39 H Creatinine 1.8 H Est GFR ( Amer) 38 Est GFR (Non-Af Amer) 31 POC Glucose (mg/dL) Random Glucose 144 H Calcium 7.0 L Phosphorus 5.1 H Magnesium 1.5 L Total Bilirubin 20.7 H* AST 749 H D ALT 168 H Alkaline Phosphatase 484 H Total Creatine Kinase Total Protein 5.4 L Albumin 2.6 L Globulin 2.7 Albumin/Globulin Ratio 1.0 L Arterial Blood Potassium Venous Blood Potassium 3.1 L Vancomycin Trough Ur L.pneumophila Ag Blood Type Antibody Screen Crossmatch BBK History Checked 11/21/16 11/21/16 08:36 09:54 WBC RBC Hgb Hct MCV MCH MCHC RDW Plt Count Manual Plt Count MPV Baso % (Auto) Baso # Corrected WBC (Man) Neutrophils % (Manual) Band Neutrophils % Lymphocytes % (Manual) Monocytes % (Manual) Nucleated RBC % Platelet Evaluation Hypochromasia Poikilocytosis (manual Anisocytosis (manual) Microcytosis (manual) Ovalocytes Acanthocytes (Spur) Hemoglobinopathy Red Blood Count Hemoglobinopathy Hct Hemoglobinopathy Hgb Hemoglobinopathy MCV Hemoglobinopathy MCH Hemoglobinopathy RDW PT INR Fibrinogen pCO2 42 pO2 103.0 H HCO3 28.5 H ABG pH 7.44 ABG Total CO2 29.8 H ABG O2 Saturation 100.8 H ABG O2 Content 10.8 L ABG Base Excess 4.0 H ABG Hemoglobin 7.9 L ABG Carboxyhemoglobin 2.6 H POC ABG HHb (Measured) -0.8 L ABG Methemoglobin 2.5 ABG O2 Capacity 10.7 L ABG Potassium VBG pH VBG pCO2 VBG HCO3 VBG Total CO2 VBG O2 Sat (Calc) VBG Base Excess VBG Potassium Hgb O2 Saturation 95.6 Sodium Chloride Glucose Lactate FiO2 40.0 Potassium Carbon Dioxide Anion Gap BUN Creatinine Est GFR ( Amer) Est GFR (Non-Af Amer) POC Glucose (mg/dL) Random Glucose Calcium Phosphorus Magnesium Total Bilirubin AST ALT Alkaline Phosphatase Total Creatine Kinase Total Protein Albumin Globulin Albumin/Globulin Ratio Arterial Blood Potassium Venous Blood Potassium Vancomycin Trough 21.9 H* Ur L.pneumophila Ag Blood Type Antibody Screen Crossmatch BBK History Checked Assessment & Plan - Assessment and Plan (Free Text) Assessment: 36 year old female with history of CP, bipolar disorder,sickle cell anemia who was admitted in sickle cell crisis and has subsequently developed mutli organ failure. Patient was extubated earlier today. Patient's mother at bedside. DARWIN Erwin also present. Mother states she is hoping that daughter's health will improve. She wants to take her home. Mother states she hates seeing her daughter suffer like this. When asked if mother would want us to intubate if needed in the future, mother stated she did not, but she has other family members who she wanted to confer with. In the interim, patients sister in law Ruby called and we continued our conversation while she was on speaker phone. Ruby was adamant that patient not be made DNR/DNI at this time. Ruby insisted that her mother in law not sign any paperwork. Ruby stated that patient may still be able to bounce back from this illness. Darek Oseguera then asked if patient was a "hospice care ". I explained that her daughter met criteria for hospice/comfort care. Ruby then stated that family was not ready for end of life care. I acknowledged their concerns and affirmed that patient would remain full code and hospice was not an option that they were interested at this time. A short time later, Ruby asked for speaker to be turned off and wanted to talk with me privately. Ruby stated that she is an "ICU nurse" in [place] and that she understands that the patients is in multi organ failure and that her prognosis is very poor. Ruby also verbalized that her sister in law is no longer a candidate for liver transplant. Ruby inferred that the family has not come to terms with the gravity of patient's condition. She states the "family still holds on to hope that patient will recover and return home". I assured Ruby that Palliative services was here to provide support for family. DARWIN Erwin provided family with options for local company intermodal truck driver care. Time spent in discussion with family regarding goals of care and advance care planning, 45 minutes Plan: Advance care planning Palliative support
[2016-11-21 16:10] LABS: VENOUS BLOOD PH 7.34 (7.32-7.43)
[2016-11-21 16:23] LABS: MAGNESIUM 2.2 mg/dL (1.7-2.2); POTASSIUM 3.7 mmol/L (3.6-5.0)
--- NOTE | 2016-11-21 18:18 | CP.PCM.PN ---
<GriffinLiu - Last Filed: 11/21/16 18:15> Subjective - Date & Time of Evaluation Date of Evaluation: 11/21/16 Time of Evaluation: 09:45 - Subjective Subjective: Medicine Progress note. Dr. Green Pt seen and examined at bedside. No acute events overnight. Patient still not responding to verbal or tactile stimuli. Intubated currently, however on pressure support with plans for possible extubation. Off pressors currently, doubutamine for cardiac fxn. Objective - Vital Signs/Intake and Output Vital Signs (last 24 hours): Temp Pulse Resp BP Pulse Ox 97.8 F 100 H 31 H 103/59 L 100 11/21/16 16:00 11/21/16 16:01 11/21/16 16:01 11/21/16 15:31 11/21/16 15:31 Intake and Output: 11/21/16 11/21/16 06:59 18:59 Intake Total 1191 Output Total 400 Balance 791 - Medications Medications: Current Medications Albuterol/Ipratropium (Duoneb 3 Mg/0.5 Mg (3 Ml) Ud) 3 ml IH [id number] [facility] Last Admin: 11/21/16 13:33 Dose: 3 ml Budesonide (Pulmicort Respules) 0.5 mg IH [id number] [facility] Last Admin: 11/21/16 07:34 Dose: 0.5 mg Ergocalciferol (Drisdol 50,000 Intl Units Cap) 1 cap PO QWK [facility] Last Admin: 11/19/16 14:47 Dose: Not Given Folic Acid (Folic Acid) 1 mg PO DAILY [facility] Last Admin: 11/21/16 10:07 Dose: Not Given Furosemide (Lasix) 40 mg IVP DAILY [facility] Last Admin: 11/17/16 09:00 Dose: 40 mg Heparin Sodium (Porcine) (Heparin) 5,000 units SC Q12 [facility] PRN Reason: Protocol Last Admin: 11/16/16 21:44 Dose: Not Given Hydrocortisone Sodium Succinate (Solu-Cortef) 50 mg IVP Q8 [facility] Last Admin: 11/21/16 14:40 Dose: 50 mg Hydroxyurea (Hydrea) 500 mg PO DAILY [facility] Last Admin: 11/21/16 10:08 Dose: Not Given Vancomycin HCl (Vancomycin 1gm) 1 gm in 250 mls @ 167 mls/hr IVPB DAILY [facility] PRN Reason: Protocol Last Admin: 11/20/16 10:12 Dose: 167 mls/hr Cefepime HCl (Maxipime 1gm) 1 gm in 100 mls @ 100 mls/hr IVPB Q24H [facility] PRN Reason: Protocol Last Admin: 11/21/16 12:38 Dose: 100 mls/hr Dextrose (Dextrose 10% In Water) 500 mls @ 20 mls/hr IV .Q24H [facility] Last Admin: 11/20/16 17:46 Dose: 20 mls/hr Propofol (Diprivan) 1,000 mg in 100 mls @ 2.259 mls/hr IV .Q24H PRN; Protocol; 5 MCG/KG/MIN PRN Reason: TITRATE PER MD ORDER Last Admin: 11/20/16 03:59 Dose: 50 mcg/kg/min, 22.589 mls/hr NOREPINEPHRINE BIT/0.9 % NACL (Levophed 4 Mg/ 250 Ml Ns Premixed) 4 mg in 250 mls @ 15 mls/hr IV .[id number] PRN; Protocol; 4 MCG/MIN PRN Reason: TITRATE PER MD ORDER Last Titration: 11/21/16 06:50 Dose: 0 mcg/min, 0 mls/hr Vasopressin 20 units/ Dextrose 101 mls @ 12.12 mls/hr IV .Q8H20M [facility]; 0.04 U/ MIN PRN Reason: Protocol Last Admin: 11/19/16 22:39 Dose: 12.12 mls/hr Metronidazole (Flagyl) 500 mg in 100 mls @ 100 mls/hr IVPB Q8 [facility] PRN Reason: Protocol Last Admin: 11/21/16 14:47 Dose: 100 mls/hr Dobutamine HCl/Dextrose (Dobutamine/Dextrose 5% 500mg/250ml) 500 mg in 250 mls @ 5.647 mls/hr IV .Q24H PRN; Protocol; 2.5 MCG/KG/MIN PRN Reason: TITRATE PER PROTOCOL Last Admin: 11/21/16 07:49 Dose: 5.647 mls/hr Lactic Acid (Lac-Hydrin 12% Cream (140 G)) 0 ea TOP DAILY PRN PRN Reason: Wound Lactulose (Generlac) 200 gm [place] Q6 [facility] Stop: 11/24/16 12:01 Last Admin: 11/21/16 05:10 Dose: 200 gm Multivitamins/Minerals (Therapeutic-M Tab) 1 tab PO DAILY [facility] Last Admin: 11/21/16 10:07 Dose: Not Given Pantoprazole Sodium (Protonix Inj) 40 mg IVP Q12 [facility] Last Admin: 11/21/16 10:06 Dose: 40 mg Rifaximin (Xifaxan) 550 mg PO BID [facility] PRN Reason: Protocol Last Admin: 11/19/16 14:57 Dose: Not Given - Labs Labs: 11/21/16 06:00 11/21/16 16:01 PT 19.5 Seconds (9.9-11.8) H 11/21/16 06:00 INR 1.81 (0.93-1.08) H 11/21/16 06:00 APTT 83.0 Seconds (23.7-30.8) H* 11/19/16 10:00 - Constitutional Appears: Chronically Ill - Head Exam Head Exam: ATRAUMATIC, NORMAL INSPECTION, NORMOCEPHALIC Additional comments: Intubated - Eye Exam Additional comments: does not have spontaneous eye opening. - ENT Exam Additional comments: intubated - Respiratory Exam Respiratory Exam: Rhonchi (diffuse rhonchi bilaterally) Additional comments: intubated on pressure support - Cardiovascular Exam Cardiovascular Exam: +S1, +S2. absent: JVD - GI/Abdominal Exam Additional comments: distended, firm. no apparent tenderness. No rebound, no guarding. - Extremities Exam Extremities Exam: Pedal Edema. absent: Calf Tenderness - Neurological Exam Additional comments: not sedated. Does not respond to verbal or tactile stimuli. Does have spontaneous movements, minimal - Skin Skin Exam: Dry, Normal Color, Warm Assessment and Plan - Assessment and Plan (Free Text) Assessment: 36 y/o F with PMH of Sickle cell disease, Bipolar disorder, Cerebral palsy, Asthma, CHF here for likely vaso-occlusive crisis complicated by liver failure. Hospital course complicated by thrombocytopenia, coagulopathy. Pt subsequently found to have MELITON. 1. Likely Vaso-occlusive crisis secondary to sickle cell disease Monitor Hg closely will transfuse if Hb <7 Continue Hydroxyurea Heme following, awaiting recs received exchange transfusion again 11/20 2. Liver disease Patient not a candidate for liver transplantation at this time Transaminitis, elevated Thrombocytopenia worsening Hyperbilirubinemia worsening GI following 3. Upper GI bleed likely secondary to OG trauma S/p bedside EGD on 11/19 Bleed cauterized and injected Continue to monitor Hb Protonix 40 q12 daily 4. Possible Colitis CT - evidence of some possible colitis C.Diff antigen positive, toxin negative repeat stool cdiff Surgery following Low suspicion for colitis Patient is not a candidate for surgery 5. MELITON Nephro following Continues to be oliguric No dialysis at this time 6. CHF Continue Lasix 40 mg daily on Dobutamine drip EF - 39.7% in June 2016 Cardiology following 7. Respiratory failure intubated on pressure support, possible extubation Continue breathing treatments ventilatory management as per ICU 8. Leukocytosis Blood cultures negative Urine cultures negative ID following Continue IV Abx 9. Electrolyte abnormalities Replete as needed 10. PPx Protonix SCDs Dispo: f/u Palliative care recs patient with very poor prognosis encourage family involvement in decision making Discussed case with Dr. Norma Moya PGY1 <Marco Green - Last Filed: 11/21/16 18:45> Objective - Vital Signs/Intake and Output Vital Signs (last 24 hours): Temp Pulse Resp BP Pulse Ox 97.8 F 103 H 33 H 104/74 99 11/21/16 16:00 11/21/16 18:01 11/21/16 18:01 11/21/16 18:01 11/21/16 18:01 Intake and Output: 11/21/16 11/21/16 06:59 18:59 Intake Total 1191 Output Total 400 200 Balance 791 -200 - Medications Medications: Current Medications Albuterol/Ipratropium (Duoneb 3 Mg/0.5 Mg (3 Ml) Ud) 3 ml IH [id number] [facility] Last Admin: 11/21/16 13:33 Dose: 3 ml Budesonide (Pulmicort Respules) 0.5 mg IH [id number] [facility] Last Admin: 11/21/16 07:34 Dose: 0.5 mg Ergocalciferol (Drisdol 50,000 Intl Units Cap) 1 cap PO QWK [facility] Last Admin: 11/19/16 14:47 Dose: Not Given Folic Acid (Folic Acid) 1 mg PO DAILY [facility] Last Admin: 11/21/16 10:07 Dose: Not Given Furosemide (Lasix) 40 mg IVP DAILY [facility] Last Admin: 11/17/16 09:00 Dose: 40 mg Heparin Sodium (Porcine) (Heparin) 5,000 units SC Q12 [facility] PRN Reason: Protocol Last Admin: 11/16/16 21:44 Dose: Not Given Hydrocortisone Sodium Succinate (Solu-Cortef) 50 mg IVP Q8 [facility] Last Admin: 11/21/16 14:40 Dose: 50 mg Hydroxyurea (Hydrea) 500 mg PO DAILY [facility] Last Admin: 11/21/16 10:08 Dose: Not Given Vancomycin HCl (Vancomycin 1gm) 1 gm in 250 mls @ 167 mls/hr IVPB DAILY [facility] PRN Reason: Protocol Last Admin: 11/20/16 10:12 Dose: 167 mls/hr Cefepime HCl (Maxipime 1gm) 1 gm in 100 mls @ 100 mls/hr IVPB Q24H [facility] PRN Reason: Protocol Last Admin: 11/21/16 12:38 Dose: 100 mls/hr Dextrose (Dextrose 10% In Water) 500 mls @ 20 mls/hr IV .Q24H [facility] Last Admin: 11/20/16 17:46 Dose: 20 mls/hr Propofol (Diprivan) 1,000 mg in 100 mls @ 2.259 mls/hr IV .Q24H PRN; Protocol; 5 MCG/KG/MIN PRN Reason: TITRATE PER MD ORDER Last Admin: 11/20/16 03:59 Dose: 50 mcg/kg/min, 22.589 mls/hr NOREPINEPHRINE BIT/0.9 % NACL (Levophed 4 Mg/ 250 Ml Ns Premixed) 4 mg in 250 mls @ 15 mls/hr IV .[id number] PRN; Protocol; 4 MCG/MIN PRN Reason: TITRATE PER MD ORDER Last Titration: 11/21/16 06:50 Dose: 0 mcg/min, 0 mls/hr Vasopressin 20 units/ Dextrose 101 mls @ 12.12 mls/hr IV .Q8H20M [facility]; 0.04 U/ MIN PRN Reason: Protocol Last Admin: 11/19/16 22:39 Dose: 12.12 mls/hr Metronidazole (Flagyl) 500 mg in 100 mls @ 100 mls/hr IVPB Q8 [facility] PRN Reason: Protocol Last Admin: 11/21/16 14:47 Dose: 100 mls/hr Dobutamine HCl/Dextrose (Dobutamine/Dextrose 5% 500mg/250ml) 500 mg in 250 mls @ 5.647 mls/hr IV .Q24H PRN; Protocol; 2.5 MCG/KG/MIN PRN Reason: TITRATE PER PROTOCOL Last Admin: 11/21/16 07:49 Dose: 5.647 mls/hr Lactic Acid (Lac-Hydrin 12% Cream (140 G)) 0 ea TOP DAILY PRN PRN Reason: Wound Lactulose (Generlac) 200 gm GA Q6 [facility] Stop: 11/24/16 12:01 Last Admin: 11/21/16 18:28 Dose: Not Given Multivitamins/Minerals (Therapeutic-M Tab) 1 tab PO DAILY [facility] Last Admin: 11/21/16 10:07 Dose: Not Given Pantoprazole Sodium (Protonix Inj) 40 mg IVP Q12 [facility] Last Admin: 11/21/16 10:06 Dose: 40 mg Rifaximin (Xifaxan) 550 mg PO BID [facility] PRN Reason: Protocol Last Admin: 11/19/16 14:57 Dose: Not Given - Labs Labs: 11/21/16 06:00 11/21/16 16:01 PT 19.5 Seconds (9.9-11.8) H 11/21/16 06:00 INR 1.81 (0.93-1.08) H 11/21/16 06:00 APTT 83.0 Seconds (23.7-30.8) H* 11/19/16 10:00 Attending/Attestation - Attestation I have personally seen and examined this patient.: Yes I have fully participated in the care of the patient.: Yes I have reviewed all pertinent clinical information, including history, physical exam and plan: Yes Notes (Text): 11/21/16 18:44 36 year old female with past medical history of sickle cell disease/anemia, bipolar disorder, CHF and asthma who presented with sickle cell crisis. Hospital course complicated with respiratory distress s/p intubation, shock on vasopressor support and GB s/p EGD with cauterization. She is being followed by GI, ID and nephrology. Continue with antibiotics as per ID. She is not a candidate for liver transplant per [facility]. Plasmapheresis, UF and red cell exchange as per hematology and nephrology. Will replete and repeat lytes. Prognosis is guarded. Marco Green MD Hospitalist.
--- NOTE | 2016-11-21 19:15 | CP.PCM.PN ---
Subjective - Date & Time of Evaluation Date of Evaluation: 11/21/16 Time of Evaluation: 17:00 - Subjective Subjective: Infectious Disease Follow Up: November 21, 2016 36 yo AA female well known to me from previous hospitalizations at [facility] and [facility] presented with generalized pains and admitted for Sickle Cell vasoocclusive Crisis. The patient was just discharged from [facility] a few days ago. She returns with abdominal pain, nausea, and vomiting. The patient did not exhibit a fever while hospitalized so far but came very close with a 100.0 F. Patient with nausea and vomiting and diarrhea. Her blood pressure is lower than her usual. Started on Zosyn for antibiotic treatment. Sudden elevation of LFTs. Zosyn stopped on 11/14/2016. Impending liver failure ? Acute Kidney Injury. Noted Vancomycin restarted. Would continue with Cefepime for the time being. There is a leukocytosis of 42.0 although corrected WBC is 7.8. Patient appears swollen in general. AST and ALT are still increasing. Chelation therapy still in progress. Undergoing red cell exchange transfusion and plasmapheresis yesterday as well as hemodialysis. Patient remains intubated and ventilated. Extremely poor prognosis. The patient is not a candidate for liver transplant at this time as per the [facility] Liver transplant center. The patient is poorly responsive. Taken to EGD for cauterization. Supportive care. Renal dosing of antibiotics. Prognosis dismal. Patient had 2 red cell exchanges. Multiorgan failure. Extubated today. At best opens eyes but does not follow orders. Objective - Vital Signs/Intake and Output Vital Signs (last 24 hours): Temp Pulse Resp BP Pulse Ox 97.8 F 103 H 33 H 104/74 99 11/21/16 16:00 11/21/16 18:01 11/21/16 18:01 11/21/16 18:01 11/21/16 18:01 Intake and Output: 11/21/16 11/22/16 18:59 06:59 Output Total 200 Balance -200 - Medications Medications: Current Medications Albuterol/Ipratropium (Duoneb 3 Mg/0.5 Mg (3 Ml) Ud) 3 ml IH [id number] [facility] Last Admin: 11/21/16 13:33 Dose: 3 ml Budesonide (Pulmicort Respules) 0.5 mg IH [id number] [facility] Last Admin: 11/21/16 07:34 Dose: 0.5 mg Ergocalciferol (Drisdol 50,000 Intl Units Cap) 1 cap PO QWK [facility] Last Admin: 11/19/16 14:47 Dose: Not Given Folic Acid (Folic Acid) 1 mg PO DAILY [facility] Last Admin: 11/21/16 10:07 Dose: Not Given Furosemide (Lasix) 40 mg IVP DAILY [facility] Last Admin: 11/17/16 09:00 Dose: 40 mg Heparin Sodium (Porcine) (Heparin) 5,000 units SC Q12 [facility] PRN Reason: Protocol Last Admin: 11/16/16 21:44 Dose: Not Given Hydrocortisone Sodium Succinate (Solu-Cortef) 50 mg IVP Q8 [facility] Last Admin: 11/21/16 14:40 Dose: 50 mg Hydroxyurea (Hydrea) 500 mg PO DAILY [facility] Last Admin: 11/21/16 10:08 Dose: Not Given Vancomycin HCl (Vancomycin 1gm) 1 gm in 250 mls @ 167 mls/hr IVPB DAILY [facility] PRN Reason: Protocol Last Admin: 11/20/16 10:12 Dose: 167 mls/hr Cefepime HCl (Maxipime 1gm) 1 gm in 100 mls @ 100 mls/hr IVPB Q24H [facility] PRN Reason: Protocol Last Admin: 11/21/16 12:38 Dose: 100 mls/hr Dextrose (Dextrose 10% In Water) 500 mls @ 20 mls/hr IV .Q24H [facility] Last Admin: 11/21/16 18:49 Dose: 20 mls/hr Propofol (Diprivan) 1,000 mg in 100 mls @ 2.259 mls/hr IV .Q24H PRN; Protocol; 5 MCG/KG/MIN PRN Reason: TITRATE PER MD ORDER Last Admin: 11/20/16 03:59 Dose: 50 mcg/kg/min, 22.589 mls/hr NOREPINEPHRINE BIT/0.9 % NACL (Levophed 4 Mg/ 250 Ml Ns Premixed) 4 mg in 250 mls @ 15 mls/hr IV .[id number] PRN; Protocol; 4 MCG/MIN PRN Reason: TITRATE PER MD ORDER Last Titration: 11/21/16 06:50 Dose: 0 mcg/min, 0 mls/hr Vasopressin 20 units/ Dextrose 101 mls @ 12.12 mls/hr IV .Q8H20M [facility]; 0.04 U/ MIN PRN Reason: Protocol Last Admin: 11/19/16 22:39 Dose: 12.12 mls/hr Metronidazole (Flagyl) 500 mg in 100 mls @ 100 mls/hr IVPB Q8 [facility] PRN Reason: Protocol Last Admin: 11/21/16 14:47 Dose: 100 mls/hr Dobutamine HCl/Dextrose (Dobutamine/Dextrose 5% 500mg/250ml) 500 mg in 250 mls @ 5.647 mls/hr IV .Q24H PRN; Protocol; 2.5 MCG/KG/MIN PRN Reason: TITRATE PER PROTOCOL Last Admin: 11/21/16 07:49 Dose: 5.647 mls/hr Lactic Acid (Lac-Hydrin 12% Cream (140 G)) 0 ea TOP DAILY PRN PRN Reason: Wound Lactulose (Generlac) 200 gm [place] Q6 [facility] Stop: 11/24/16 12:01 Last Admin: 11/21/16 18:49 Dose: 200 gm Multivitamins/Minerals (Therapeutic-M Tab) 1 tab PO DAILY [facility] Last Admin: 11/21/16 10:07 Dose: Not Given Pantoprazole Sodium (Protonix Inj) 40 mg IVP Q12 [facility] Last Admin: 11/21/16 10:06 Dose: 40 mg Rifaximin (Xifaxan) 550 mg PO BID [facility] PRN Reason: Protocol Last Admin: 11/19/16 14:57 Dose: Not Given - Labs Labs: 11/21/16 06:00 11/21/16 16:01 PT 19.5 Seconds (9.9-11.8) H 11/21/16 06:00 INR 1.81 (0.93-1.08) H 11/21/16 06:00 APTT 83.0 Seconds (23.7-30.8) H* 11/19/16 10:00 - Constitutional Appears: Non-toxic, Chronically Ill - Head Exam Additional comments: extubated. +1 edema of face - Eye Exam Eye Exam: EOMI, PERRL Pupil Exam: NORMAL ACCOMODATION, PERRL - ENT Exam ENT Exam: Mucous Membranes Moist, Normal External Ear Exam, TM's Normal Bilaterally - Neck Exam Neck Exam: Full ROM, Normal Inspection - Respiratory Exam Additional comments: intubated and ventilated. - Cardiovascular Exam Cardiovascular Exam: REGULAR RHYTHM, RRR, +S1, +S2 - GI/Abdominal Exam GI & Abdominal Exam: Distended, Soft, Hypoactive Bowel Sounds - Extremities Exam Extremities Exam: Joint Swelling, Pedal Edema - Neurological Exam Neurological Exam: Awake. absent: Alert Additional comments: At best opens eyes. Does not follow commands. - Psychiatric Exam Additional comments: poorly responsive. Assessment and Plan - Assessment and Plan (Free Text) Assessment: 36 yo AA female with known Sickle Cell disease presenting with diarrhea and abdominal pain. Low blood pressure/borderline hypotension. Supportive care. Velarde cultures. No leukocytosis noted however. Coagulase negative staph according to FISH studies. Sudden increase in LFTs and creatinine. Continue with renal dosing of Cefepime for now. Vancomycin should be adjusted for renal function. LFT are continuing to increase. Acute Kidney Injury with creatinine of 2.0. Remains in MICU for further care. General edema of the patient. Today patient was intubated and ventilated. Increasing leukocytosis. If continues to increase, will consider use of meropenem. Noted that the patient's cultures are negative to date. LFTs remain severely elevated. 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 Extremely poor prognosis. Extubated today. Generalized edema. Liver Cirrhosis. Not deemed a candidate for liver transplant by [facility] Liver rome. Patient is receiving hemodialysis. Multi-organ failure. EGD done yesterday with cauterization of an ulcer. Patient's prognosis remains poor to dismal. Thank you for allowing me to participate in the care of the patient, we will follow with you.
--- NOTE | 2016-11-21 20:22 | PN ---
DATE: SUBJECTIVE: The patient was extubated, she is off pressors and she underwent hemodialysis today. PHYSICAL EXAMINATION VITAL SIGNS: Blood pressure 104/74, heart rate 103, respirations 33, temperature 97.8. HEENT: Pale conjunctiva. CHEST: Absent breath sounds at the bases. HEART: S1 and S2 regular and distant. EXTREMITIES: A 2+ leg and 2+ arm edema. LABORATORY DATA: Hemoglobin and hematocrit 8.1 and 20.8, white count 21.3, platelet count 93,000. Today's SMA-7; sodium 138, potassium 3.1, chloride 93, CO2 29, glucose 144, BUN 39, creatinine 1.8, total bilirubin 20.7, AST and ALT are 749 and 168 respectively. Alkaline phosphorus 484. ASSESSMENT: 1. Congestive heart failure. The patient's ejection fraction was estimated at 35% to 40% on an echocardiogram study in 06/2016. 2. Status post respiratory failure. 3. Acute renal failure. 4. Liver failure. 5. Anemia and thrombocytopenia. 6. Coagulopathy. RECOMMENDATIONS: Continue current IV Flagyl and IV cefepime. The case was discussed at length with the patient's mother at the beside. Cardiac nicole the patient is very much stable from the CHF point of view and major clinical problems are liver failure as well as acute renal failure, coagulopathy, and recent GI bleeding. Pedro Luis Deshpande MD
--- NOTE | 2016-11-21 23:24 | CP.PCM.PN ---
Objective - Vital Signs/Intake and Output Vital Signs (last 24 hours): Temp Pulse Resp BP Pulse Ox 97.8 F 103 H 33 H 104/74 99 11/21/16 16:00 11/21/16 18:01 11/21/16 18:01 11/21/16 18:01 11/21/16 18:01 Intake and Output: 11/21/16 11/22/16 18:59 06:59 Output Total 200 Balance -200 - Medications Medications: Current Medications Albuterol/Ipratropium (Duoneb 3 Mg/0.5 Mg (3 Ml) Ud) 3 ml IH [id number] [facility] Last Admin: 11/21/16 19:40 Dose: 3 ml Budesonide (Pulmicort Respules) 0.5 mg IH [id number] [facility] Last Admin: 11/21/16 19:40 Dose: 0.5 mg Ergocalciferol (Drisdol 50,000 Intl Units Cap) 1 cap PO QWK [facility] Last Admin: 11/19/16 14:47 Dose: Not Given Folic Acid (Folic Acid) 1 mg PO DAILY [facility] Last Admin: 11/21/16 10:07 Dose: Not Given Furosemide (Lasix) 40 mg IVP DAILY [facility] Last Admin: 11/17/16 09:00 Dose: 40 mg Heparin Sodium (Porcine) (Heparin) 5,000 units SC Q12 [facility] PRN Reason: Protocol Last Admin: 11/16/16 21:44 Dose: Not Given Hydrocortisone Sodium Succinate (Solu-Cortef) 50 mg IVP Q8 [facility] Last Admin: 11/21/16 22:02 Dose: 50 mg Hydroxyurea (Hydrea) 500 mg PO DAILY [facility] Last Admin: 11/21/16 10:08 Dose: Not Given Vancomycin HCl (Vancomycin 1gm) 1 gm in 250 mls @ 167 mls/hr IVPB DAILY [facility] PRN Reason: Protocol Last Admin: 11/20/16 10:12 Dose: 167 mls/hr Cefepime HCl (Maxipime 1gm) 1 gm in 100 mls @ 100 mls/hr IVPB Q24H [facility] PRN Reason: Protocol Last Admin: 11/21/16 12:38 Dose: 100 mls/hr Dextrose (Dextrose 10% In Water) 500 mls @ 20 mls/hr IV .Q24H [facility] Last Admin: 11/21/16 18:49 Dose: 20 mls/hr Propofol (Diprivan) 1,000 mg in 100 mls @ 2.259 mls/hr IV .Q24H PRN; Protocol; 5 MCG/KG/MIN PRN Reason: TITRATE PER MD ORDER Last Admin: 11/20/16 03:59 Dose: 50 mcg/kg/min, 22.589 mls/hr NOREPINEPHRINE BIT/0.9 % NACL (Levophed 4 Mg/ 250 Ml Ns Premixed) 4 mg in 250 mls @ 15 mls/hr IV .[id number] PRN; Protocol; 4 MCG/MIN PRN Reason: TITRATE PER MD ORDER Last Titration: 11/21/16 06:50 Dose: 0 mcg/min, 0 mls/hr Vasopressin 20 units/ Dextrose 101 mls @ 12.12 mls/hr IV .Q8H20M [facility]; 0.04 U/ MIN PRN Reason: Protocol Last Admin: 11/19/16 22:39 Dose: 12.12 mls/hr Metronidazole (Flagyl) 500 mg in 100 mls @ 100 mls/hr IVPB Q8 [facility] PRN Reason: Protocol Last Admin: 11/21/16 22:21 Dose: 100 mls/hr Dobutamine HCl/Dextrose (Dobutamine/Dextrose 5% 500mg/250ml) 500 mg in 250 mls @ 5.647 mls/hr IV .Q24H PRN; Protocol; 2.5 MCG/KG/MIN PRN Reason: TITRATE PER PROTOCOL Last Admin: 11/21/16 07:49 Dose: 5.647 mls/hr Lactic Acid (Lac-Hydrin 12% Cream (140 G)) 0 ea TOP DAILY PRN PRN Reason: Wound Lactulose (Generlac) 200 gm [place] Q6 [facility] Stop: 11/24/16 12:01 Last Admin: 11/21/16 18:49 Dose: 200 gm Multivitamins/Minerals (Therapeutic-M Tab) 1 tab PO DAILY [facility] Last Admin: 11/21/16 10:07 Dose: Not Given Pantoprazole Sodium (Protonix Inj) 40 mg IVP Q12 [facility] Last Admin: 11/21/16 22:21 Dose: 40 mg Rifaximin (Xifaxan) 550 mg PO BID [facility] PRN Reason: Protocol Last Admin: 11/19/16 14:57 Dose: Not Given - Labs Labs: 11/21/16 06:00 11/21/16 16:01 PT 19.5 Seconds (9.9-11.8) H 11/21/16 06:00 INR 1.81 (0.93-1.08) H 11/21/16 06:00 APTT 83.0 Seconds (23.7-30.8) H* 11/19/16 10:00 Assessment and Plan (1) Acute renal failure Status: Acute (2) Acute hypoxemic respiratory failure Status: Acute (3) Acute exacerbation of CHF (congestive heart failure) Status: Acute (4) Acute liver failure Status: Acute (5) Sickle cell anemia with crisis Status: Acute
[2016-11-22] MEDS ORDERED: HYDROmorphone 1 mg/ml ISec IVP ONE (00:36)
[2016-11-22] MEDS: Lactulose 10 gm/15 ml (Rectal Use) PR SCH ×4 (01:30→17:25)
[2016-11-22] MEDS: Albuterol-Ipratrop 3 mg / 0.5 (3 ml) UD IH SCH ×4 (02:53→19:41)
[2016-11-22] MEDS: metroNIDAZOLE IV 500 mg/100 ml 500 MG/100 ML BAG IVPB SCH ×4 (05:36→21:33)
[2016-11-22 06:45] LABS: BASO # 0.16 K/mm3 (0.0-2.0); BASO % 0.4 % (0.0-3.0); MEAN CORPUSCULAR HEMOGLOBIN 30.4 pg (25.0-35.0); MEAN CORPUSCULAR HGB CONC 37.1 g/dl (31.0-37.0); RED CELL DISTRIBUTION WIDTH 16.3 % (11.5-14.5)
[2016-11-22 06:51] LABS: INR 1.95 (0.93-1.08)
--- NOTE | 2016-11-22 07:00 | CP.PCM.PN ---
<SolitarioStephanie - Last Filed: 11/22/16 10:30> Subjective - Date & Time of Evaluation Date of Evaluation: 11/22/16 Time of Evaluation: 06:57 - Subjective Subjective: Gastroenterology Fellow/PGY5 Progress Note Patient extubated with intermittent appropriate responses to questioning. Continues on dobutamine support. Nursing notes incomplete ability to clear oral secretions overnight. Unable to complete a 12-point review of systems on ventilator support. Objective - Vital Signs/Intake and Output Vital Signs (last 24 hours): Temp Pulse Resp BP Pulse Ox 97 F L 99 H 18 93/72 L 99 11/22/16 04:00 11/22/16 04:00 11/22/16 04:00 11/22/16 04:00 11/22/16 04:00 Intake and Output: 11/21/16 11/22/16 18:59 06:59 Output Total 200 Balance -200 - Medications Medications: Current Medications Albuterol/Ipratropium (Duoneb 3 Mg/0.5 Mg (3 Ml) Ud) 3 ml IH [id number] [facility] Last Admin: 11/22/16 02:53 Dose: 3 ml Budesonide (Pulmicort Respules) 0.5 mg IH [id number] [facility] Last Admin: 11/21/16 19:40 Dose: 0.5 mg Ergocalciferol (Drisdol 50,000 Intl Units Cap) 1 cap PO QWK [facility] Last Admin: 11/19/16 14:47 Dose: Not Given Folic Acid (Folic Acid) 1 mg PO DAILY [facility] Last Admin: 11/21/16 10:07 Dose: Not Given Furosemide (Lasix) 40 mg IVP DAILY [facility] Last Admin: 11/17/16 09:00 Dose: 40 mg Heparin Sodium (Porcine) (Heparin) 5,000 units SC Q12 [facility] PRN Reason: Protocol Last Admin: 11/16/16 21:44 Dose: Not Given Hydrocortisone Sodium Succinate (Solu-Cortef) 50 mg IVP Q8 [facility] Last Admin: 11/22/16 05:39 Dose: 50 mg Hydroxyurea (Hydrea) 500 mg PO DAILY [facility] Last Admin: 11/21/16 10:08 Dose: Not Given Vancomycin HCl (Vancomycin 1gm) 1 gm in 250 mls @ 167 mls/hr IVPB DAILY [facility] PRN Reason: Protocol Last Admin: 11/20/16 10:12 Dose: 167 mls/hr Cefepime HCl (Maxipime 1gm) 1 gm in 100 mls @ 100 mls/hr IVPB Q24H [facility] PRN Reason: Protocol Last Admin: 11/21/16 12:38 Dose: 100 mls/hr Dextrose (Dextrose 10% In Water) 500 mls @ 20 mls/hr IV .Q24H [facility] Last Admin: 11/21/16 18:49 Dose: 20 mls/hr Propofol (Diprivan) 1,000 mg in 100 mls @ 2.259 mls/hr IV .Q24H PRN; Protocol; 5 MCG/KG/MIN PRN Reason: TITRATE PER MD ORDER Last Admin: 11/20/16 03:59 Dose: 50 mcg/kg/min, 22.589 mls/hr NOREPINEPHRINE BIT/0.9 % NACL (Levophed 4 Mg/ 250 Ml Ns Premixed) 4 mg in 250 mls @ 15 mls/hr IV .Q03V03H PRN; Protocol; 4 MCG/MIN PRN Reason: TITRATE PER MD ORDER Last Titration: 11/21/16 06:50 Dose: 0 mcg/min, 0 mls/hr Vasopressin 20 units/ Dextrose 101 mls @ 12.12 mls/hr IV .Q8H20M [facility]TT[facility]; 0.04 U/ MIN PRN Reason: Protocol Last Admin: 11/19/16 22:39 Dose: 12.12 mls/hr Metronidazole (Flagyl) 500 mg in 100 mls @ 100 mls/hr IVPB Q8 [facility] PRN Reason: Protocol Last Admin: 11/22/16 05:36 Dose: 100 mls/hr Dobutamine HCl/Dextrose (Dobutamine/Dextrose 5% 500mg/250ml) 500 mg in 250 mls @ 5.647 mls/hr IV .Q24H PRN; Protocol; 2.5 MCG/KG/MIN PRN Reason: TITRATE PER PROTOCOL Last Admin: 11/21/16 07:49 Dose: 5.647 mls/hr Lactic Acid (Lac-Hydrin 12% Cream (140 G)) 0 ea TOP DAILY PRN PRN Reason: Wound Lactulose (Generlac) 200 gm HI Q6 [facility] Stop: 11/24/16 12:01 Last Admin: 11/22/16 05:38 Dose: 200 gm Multivitamins/Minerals (Therapeutic-M Tab) 1 tab PO DAILY [facility] Last Admin: 11/21/16 10:07 Dose: Not Given Pantoprazole Sodium (Protonix Inj) 40 mg IVP Q12 [facility] Last Admin: 11/21/16 22:21 Dose: 40 mg Rifaximin (Xifaxan) 550 mg PO BID [facility]E PRN Reason: Protocol Last Admin: 11/19/16 14:57 Dose: Not Given - Labs Labs: 11/21/16 06:00 11/21/16 16:01 PT 19.5 Seconds (9.9-11.8) H 11/21/16 06:00 INR 1.81 (0.93-1.08) H 11/21/16 06:00 APTT 83.0 Seconds (23.7-30.8) H* 11/19/16 10:00 - Constitutional Appears: Chronically Ill, Other - Head Exam Head Exam: ATRAUMATIC, NORMOCEPHALIC - Eye Exam Eye Exam: PERRL, Scleral icterus Pupil Exam: PERRL. absent: Miosis, Mydriatic - ENT Exam ENT Exam: Mucous Membranes Dry, Normal Oropharynx - Neck Exam Neck Exam: Normal Inspection - Respiratory Exam Respiratory Exam: Rhonchi. absent: Decreased Breath Sounds, Wheezes - Cardiovascular Exam Cardiovascular Exam: Tachycardia, +S1, +S2. absent: Rubs - GI/Abdominal Exam GI & Abdominal Exam: Distended, Soft, Hypoactive Bowel Sounds, Organomegaly. absent: Rebound - Extremities Exam Additional comments: 2-3+ B/L LE pitting edema, B/L UE edema - Neurological Exam Neurological Exam: Altered, Awake. absent: Oriented x3 - Psychiatric Exam Psychiatric exam: Agitated Additional comments: moans to questioning during exam - Skin Skin Exam: Dry, Intact, Normal Color, Warm Assessment and Plan - Assessment and Plan (Free Text) Assessment: 36 year old female with history of sCHF, EF 35-40% with Grade 3 diastolic dysfunction, Bipolar disorder, asthma, cerebral palsy, sickle cell disease, and cirrhosis presenting with abdominal pain, nausea, and vomiting. Active treatment of hypoxic VDRF in setting of hepatic/metabolic encephalopathy s/p extubation 11/21, improving shock on vasopressor support, Upper GI bleed 2/2 traumatic gastric tube placement POD3(11/19) EGD showing upper 1/3 esophagus visible vessel with mucosal trauma/active oozing s/p epinephrine injection/ BiPolar cautery, progressive liver failure 2/2 acute sickle cell intrahepatic cholestasis with resultant renal injury complicated by secondary hemochromatosis. Plan: >MELD 36 >no overt signs of recurrent GI blood loss >continue PPI BID, recommend no placement of gastric tube for healing >continue Lactulose enemas, titrate to goal 2-3 BMs/ day >swallow evaluation today >if able to tolerate PO, may consider transition to PO Lactulose >nephrology managing- 11/21 received dialysis >Hematology managing- 11/20 received RBC exchange, ordered HIT/IFTIKHAR >[facility]- not transplant candidate >palliative consult- family discussion- FULL CODE, continue aggressive measures >poor prognosis <Yusuf Garcia - Last Filed: 11/22/16 11:06> Objective - Vital Signs/Intake and Output Vital Signs (last 24 hours): Temp Pulse Resp BP Pulse Ox 97 F L 95 H 18 95/68 L 100 11/22/16 10:34 11/22/16 10:34 11/22/16 10:34 11/22/16 10:34 11/22/16 09:01 Intake and Output: 11/22/16 11/22/16 06:59 18:59 Intake Total 576 0 Output Total 100 Balance 476 0 - Medications Medications: Current Medications Albuterol/Ipratropium (Duoneb 3 Mg/0.5 Mg (3 Ml) Ud) 3 ml IH [id number] [facility] Last Admin: 11/22/16 07:54 Dose: 3 ml Ergocalciferol (Drisdol 50,000 Intl Units Cap) 1 cap PO QWK [facility] Last Admin: 11/19/16 14:47 Dose: Not Given Folic Acid (Folic Acid) 1 mg PO DAILY [facility] Last Admin: 11/22/16 10:41 Dose: Not Given Furosemide (Lasix) 40 mg IVP DAILY [facility] Last Admin: 11/17/16 09:00 Dose: 40 mg Heparin Sodium (Porcine) (Heparin) 5,000 units SC Q12 [facility] PRN Reason: Protocol Last Admin: 11/16/16 21:44 Dose: Not Given Hydrocortisone Sodium Succinate (Solu-Cortef) 50 mg IVP Q8 [facility] Last Admin: 11/22/16 05:39 Dose: 50 mg Hydroxyurea (Hydrea) 500 mg PO DAILY [facility] Last Admin: 11/22/16 10:41 Dose: Not Given Vancomycin HCl (Vancomycin 1gm) 1 gm in 250 mls @ 167 mls/hr IVPB DAILY [facility] PRN Reason: Protocol Last Admin: 11/20/16 10:12 Dose: 167 mls/hr Cefepime HCl (Maxipime 1gm) 1 gm in 100 mls @ 100 mls/hr IVPB Q24H [facility] PRN Reason: Protocol Last Admin: 11/21/16 12:38 Dose: 100 mls/hr Dextrose (Dextrose 10% In Water) 500 mls @ 20 mls/hr IV .Q24H [facility] Last Admin: 11/21/16 18:49 Dose: 20 mls/hr Metronidazole (Flagyl) 500 mg in 100 mls @ 100 mls/hr IVPB Q8 [facility] PRN Reason: Protocol Last Admin: 11/22/16 05:36 Dose: 100 mls/hr Dobutamine HCl/Dextrose (Dobutamine/Dextrose 5% 500mg/250ml) 500 mg in 250 mls @ 5.647 mls/hr IV .Q24H PRN; Protocol; 2.5 MCG/KG/MIN PRN Reason: TITRATE PER PROTOCOL Last Admin: 11/22/16 09:11 Dose: 5.647 mls/hr Potassium Chloride (Potassium Chloride 10 Meq/100 Ml) 10 meq in 100 mls @ 100 mls/hr IVPB Q2H [facility] Stop: 11/22/16 11:29 Last Admin: 11/22/16 10:42 Dose: 100 mls/hr Lactic Acid (Lac-Hydrin 12% Cream (140 G)) 0 ea TOP DAILY PRN PRN Reason: Wound Lactulose (Generlac) 200 gm HI Q6 [facility] Stop: 11/24/16 12:01 Last Admin: 11/22/16 05:38 Dose: 200 gm Multivitamins/Minerals (Therapeutic-M Tab) 1 tab PO DAILY [facility] Last Admin: 11/22/16 10:51 Dose: Not Given Pantoprazole Sodium (Protonix Inj) 40 mg IVP Q12 [facility] Last Admin: 11/22/16 10:48 Dose: 40 mg Rifaximin (Xifaxan) 550 mg PO BID [facility] PRN Reason: Protocol Last Admin: 11/19/16 14:57 Dose: Not Given - Labs Labs: 11/22/16 06:10 11/22/16 06:10 PT 21.1 Seconds (9.9-11.8) H 11/22/16 06:10 INR 1.95 (0.93-1.08) H 11/22/16 06:10 APTT 83.0 Seconds (23.7-30.8) H* 11/19/16 10:00 Attending/Attestation - Attestation I have personally seen and examined this patient.: Yes I have fully participated in the care of the patient.: Yes I have reviewed all pertinent clinical information, including history, physical exam and plan: Yes Notes (Text): 11/22/16 10:57 I have seen and examined patient with GI fellow. No acute events overnight, s/ p extubation yesterday. She remains in critical care unit on dobumatime infusion. She remains lethargic and not able to participate in meaningful conversation. She mainly groans and is not able to follow simple commands. No reported abdominal pain, nausea, vomiting. Review of vitals from today shows hypotension, tachycardia. CHF Acute sickle cell crisis Cirrhosis secondary to suspected hemochromatosis Multiorgan system dysfunction Bipolar, cerebral palsy Shock on vasopressor support Thrombocytopenia - Awaiting speech/swallow evaluation today, though patient on clinical examination is clearly unable to follow simple commands - Continue with lactulose enema - Dialysis management as per nephrology team - Follow up hematology recommendations regarding thrombocytopenia, s/p plasma exchange therapy - Would suggest not placing NGT for enteral feeding given profound thrombocytopenia. Patient not endoscopic candidate for gastrostomy placement. If she fails swallow evaluation, would consider TPN for nutritional support for time being. - LFTs trending down, continue to monitor - H/H stable, no overt bleeding noted, monitor - Multiple discussions held with two separate liver transplant centers who are not willing to accept transfer of patient at this time given overall poor prognosis and unlikely candidacy for organ transplant. In this unfortunate situation, suggest focus on patient comfort. No further planned GI interventions, will sign off case. Discussed with brake repair mechanic and medical staff.
[2016-11-22 07:08] LABS: ALB/GLOB RATIO 0.9 (1.1-1.8); HEMATOCRIT 20.5 % (36.0-48.0); PHOSPHOROUS 5.6 mg/dL (2.5-4.5); PLATELET COUNT 18 10^3/uL (120.0-450.0); POTASSIUM 3.6 mmol/L (3.6-5.0); TOTAL PROTEIN 5.6 g/dL (5.8-8.3)
[2016-11-22 07:09] LABS: WHITE BLOOD COUNT 36.5 10^3/ul (4.5-11.0)
[2016-11-22 07:30] LABS: CALCIUM 6.9 mg/dL (8.4-10.5)
[2016-11-22 07:31] LABS: BILIRUBIN,TOTAL 19.9 mg/dL (0.2-1.3)
[2016-11-22] MEDS: Budesonide 0.5 mg/2 ml Inhal Susp UD IH SCH (07:54)
--- NOTE | 2016-11-22 08:33 | RAD ---
HISTORY: intubated, f/u COMPARISON: 11/21/2016. FINDINGS: There has been interval extubation. The right IJV line terminates in the right atrium. LUNGS: There are persistent low lung volumes. There is interval development of haziness in both lungs PLEURA: Suspect layering pleural effusions, no pneumothorax apparent. CARDIOVASCULAR: Normal. OSSEOUS STRUCTURES: No significant abnormalities. VISUALIZED UPPER ABDOMEN: Normal. OTHER FINDINGS: None. IMPRESSION: Suspect layering pleural effusions. Low lung volumes may be related to poor inspiratory effort.
[2016-11-22 09:00] LABS: CORRECTED WBC 5.7 K/mm3 (4.5-11.0); MYELOCYTE 4 %; NEUTROPHIL 72 % (50.0-70.0); NUCLEATED RED BLOOD CELL 540 %; PLATELET ESTIMATE LOW (NORMAL); POIKILOCYTOSIS SLIGHT
[2016-11-22 09:01] LABS: OVALOCYTES SLIGHT
[2016-11-22 09:11] LABS: BASOPHIL 0 % (0.0-1.0); EOSINOPHIL 0 % (0.0-3.0)
[2016-11-22] MEDS: DOBUTamine 500mg/250ml D5W 500 MG/250 ML BAG IV PRN (09:11)
[2016-11-22] MEDS: Multivitamin With Minerals Tab PO SCH (10:51)
[2016-11-22] MEDS: Vancomycin 1gm in NS 250ml 1 GM/250 ML BAG IVPB SCH (11:01)
--- NOTE | 2016-11-22 11:46 | PN ---
SUBJECTIVE: A 36-year-old female with past medical history of sickle cell disease, CHF with systolic dysfunction, admitted with sickle cell vaso-occlusive crisis, possible acute chest syndrome, acute liver failure, and acute renal failure; nephrology is following for the same. The patient is status post ultrafiltration session yesterday with approximately 2 L fluid removed, status post extubation yesterday, still on high-flow oxygen. PHYSICAL EXAMINATION: VITAL SIGNS: This morning, blood pressure 106/50, heart rate 91, respirations 20, temperature 97, and O2 saturations 100% on high-flow oxygen. GENERAL: Mild distress. Not able to communicate. HEENT: Icteric. RESPIRATORY: Rhonchorous sounds bilaterally. CARDIOVASCULAR: Heart, S1 and S2 normal. No murmurs. No gallops. No rubs. ABDOMEN: Distended, firm, tender. EXTREMITIES: Markedly edematous legs. SKIN: Warm. No cyanosis. NEUROLOGIC: Not consistently following commands. LABORATORY DATA: This morning, CBC: WBC 36.5; hemoglobin 7.6; hematocrit 20.5; platelets 18, down from 93 yesterday. Chemistry panel: Sodium 135, potassium 3.6, chloride 94, bicarbonate 27, BUN 46, creatinine 1.9, glucose 118, calcium 6.9, phosphorous 5.6, T-bili 19.9, AST 693, ALT 153, and albumin 2.6. Vancomycin trough from yesterday 21.9. ASSESSMENT AND PLAN: 1. Acute renal failure. At this point multifactorial in the setting of hypotension, acute liver failure and congestive heart failure with systolic dysfunction, oliguric renal failure, status post ultrafiltration only session yesterday, stable electrolyte status. The patient appears to be in volume excess despite low-normal blood pressures. We will repeat ultrafiltration only session with goal ultrafiltration of 2 L over 2.5 hours. 2. Congestive heart failure with systolic dysfunction, appears to be in acute exacerbation requiring high FiO2, will benefit from ultrafiltration session. 3. Sickle cell vaso-occlusive crisis, likely contributing to acute renal failure. Ideally would want to give IV fluids; however, at this point, the patient is already volume overloaded and in decompensated congestive heart failure, likely also has component of acute tubular necrosis as well; therefore, we will continue to remove fluid via hemodialysis/ultrafiltration. Avoid nonsteroidal antiinflammatory drugs for pain in the setting of acute renal failure. 4. Electrolyte disturbance. The patient with mild hypocalcemia when corrected for serum albumin; no need to replenish unless the patient is symptomatic or hypertensive or having EKG changes. 5. Systemic inflammatory response syndrome. The patient being covered empirically with vancomycin and cefepime. Cefepime being dosed at 1 g q. 24 hours, correctly dosed for severe sepsis and acute renal failure. Vancomycin dose held yesterday after trough level being elevated, should repeat level before re-dosing today as the patient had only an ultrafiltration session, not a full hemodialysis session yesterday. 6. Abdominal distention, possibility for abdominal compartment syndrome, which may be contributing to acute renal failure, need to obtain bladder pressure if elevated, need to consider abdominal paracentesis to decompress. Rai Perez MD
--- NOTE | 2016-11-22 12:40 | CP.CCUPN ---
<Johnny Gonzales - Last Filed: 11/22/16 12:43> CCU Subjective - Physician Review Subjective (Free Text): 11/22/16 12:38 Patient seen and examined at bedside in the ICU. Remains extubated, off pressors, on high flow nasal canula satting well. As per nursing, overnight, patient was able to appropriately nod yes/no to questions, but still remains mainly non-verbal, only able to groan in pain or verbalize the word "mom." This AM, still not following most commands, but is awake and more alert to staff in room. Intermittently groans in pain, not nodding yes/no to questions. CCU Objective - Vital Signs / Intake & Output Vital Signs (Last 4 hours): Vital Signs Temp Pulse Resp BP Pulse Ox 11/22/16 12:05 94 H 76 H 110/49 L 93 L 11/22/16 12:00 97 F L 11/22/16 11:36 97 F L 113 H 17 110/49 L 11/22/16 11:34 97.4 F L 78 16 86/48 L 92 L 11/22/16 11:31 56/21 L 89 L 11/22/16 11:27 108 H 20 11/22/16 11:02 99 H 16 105/39 L 100 11/22/16 11:00 112 H 23 96 11/22/16 10:51 96 F L 104 H 16 105/39 L 11/22/16 10:34 97 F L 95 H 18 95/68 L 11/22/16 10:30 100 H 14 95/68 L 94 L 11/22/16 10:00 98 H 12 96/49 L 100 11/22/16 09:31 95 H 20 94/64 L 99 11/22/16 09:01 95 H 17 106/50 L 100 11/22/16 09:00 91 H 20 100 11/22/16 08:50 93 H 18 99/66 L 100 Intake and Output (Last 8hrs): Intake & Output 11/21/16 11/22/16 11/22/16 22:59 06:59 14:59 Intake Total 576 288 Output Total 200 100 Balance -200 476 288 Weight 77.111 kg 77.111 kg Intake: IV 376 D10W 240 Left Femoral 136 Left Hand 0 right chest wall 0 Oral 0 Tube Feeding 0 TPN/PPN 0 Blood Product 0 288 Apheresis Plts Acda Lr 288 Irr Unit [id number] Lipid 0 Albumin 0 Other 200 Output: Urine 200 100 2-way Urethral 200 100 Urine, Voided 0 Stool 0 Urine/Stool Mix 0 Emesis 0 Oral Regurgitation 0 Other 0 Other: # Voids 2-way Urethral 0 Urine, Voided 0 # Bowel Movements 0 - Physical Exam Head: Positive for: Atraumatic, Normocephalic. Negative for: Ecchymosis, Abrasion, Laceration Pupils: Positive for: PERRL. Negative for: Non-Reactive Extroacular Muscles: Positive for: Other (not following commands but atempting to avoid direct light challenge for PERRL assessment; exhibiting some spontaneous movement of eyes and spontaneous eyelid openning) Conjunctiva: Positive for: Icteric. Negative for: Normal, Injected Mouth: Negative for: Moist Mucous Membranes, Normal Tounge (small lac on underside of tongue), Normal Teeth (poor dentition) Pharnyx: Positive for: Other (no gross bleeding/oozing sites). Negative for: ERYTHEMA, EXUDATE Nose (External): Positive for: Atraumatic, Other (no expistaxis or oozing/ crusting around the nares). Negative for: Abrasion, Contusion, Laceration Nose (Internal): Negative for: Epistaxis Neck: Positive for: Normal Range of Motion (rotational ROM intact, spontaneously moving head back and forth in bed), Trachea Midline. Negative for : JVD Respiratory/Chest: Positive for: Good Air Exchange, Rhonchi, Other (R port in place- clean and dry, covered with bandaging; wearing High-flow nasal canula and satting well). Negative for: Clear to Auscultation (Mild ronchi in all haider, most prominent at expiration), Respiratory Distress, Accessory Muscle Use, Wheezes, Decreased Breath Sounds, Rales, Retracting Cardiovascular: Positive for: Normal S1, S2, Tachycardic (Rapid rate, regular rhythm). Negative for: Regular Rate and Rhythm, Murmurs, Irregular Rhythm, Bradycardic Abdomen: Positive for: Distention (increased firmness/distention,). Negative for: Tenderness, Normal Bowel Sounds (decreased and distant bowel sounds), Peritoneal Signs, Rebound, Guarding, Hernias Back: Positive for: Normal Inspection Upper Extremity: Positive for: Edema (Moderated edematous in bilateral UE, +2 pitting edema extending from hands to mid-humerus), Swelling, Temperature Abnormalties (mild coolness to palpation at bilateral hands). Negative for: Normal Inspection, Cyanosis, NORMAL PULSES (faintly palpable radials B/L ( possibly 2/2 edema) but clearly ausculated radial pulse with Duplex) Lower Extremity: Positive for: Edema (+2-3 pitting edema in bilateral LE extending from feet to mid-thigh), Temperature Abnormalties (mild coolness to palpation at bilateral feet). Negative for: Normal Inspection (Left groin with HD TLC in place- dressing with saturated sanginous strike through, site continues to ooze), NORMAL PULSES (unable to palpate bilateral dorsalis pedis, likely 2/2 edema, but clearly demonstrated with bedside doppler), Cyanosis, Erythema Neurological: Positive for: Other (bilateral Plantar reflexes intact, some spontaneous eye openings). Negative for: GCS=15 (score of 10 (E4 V2 M4)), CN II -XII Intact, Speech Normal, Motor Func Grossly Intact Skin: Positive for: Warm (except as documented in extremities exam), Dry, Normal Color. Negative for: Rashes Psychiatric: Positive for: Other (unable to assess, non-verbal, not following most commands) - Medications Active Medications: Active Medications Generic Name Dose Route Start Last Admin Trade Name Freq PRN Reason Stop Dose Admin Albuterol/Ipratropium 3 ml 11/16/16 14:00 11/22/16 07:54 Duoneb 3 Mg/0.5 Mg (3 Ml) Ud IH 3 ml [id number] ARLETTE Administration Ergocalciferol 1 cap 11/12/16 10:00 11/19/16 14:47 Drisdol 50,000 Intl Units Cap PO Not Given QWK ARLETTE Folic Acid 1 mg 11/12/16 10:00 11/22/16 10:41 Folic Acid PO Not Given DAILY ARLETTE Furosemide 40 mg 11/16/16 10:00 11/17/16 09:00 Lasix IVP 40 mg DAILY ARLETTE Administration Heparin Sodium (Porcine) 5,000 units 11/13/16 01:15 11/16/16 21:44 Heparin SC Not Given Q12 ARLETTE Protocol Hydrocortisone Sodium Succinate 50 mg 11/19/16 07:15 11/22/16 05:39 Solu-Cortef IVP 50 mg Q8 ARLETTE Administration Hydroxyurea 500 mg 11/12/16 10:00 11/22/16 10:41 Hydrea PO Not Given DAILY ARLETTE Vancomycin HCl 1 gm in 250 mls @ 167 mls/hr 11/15/16 11:30 11/22/16 11:01 Vancomycin 1gm IVPB 167 mls/hr DAILY ARLETTE Administration Protocol Cefepime HCl 1 gm in 100 mls @ 100 mls/hr 11/15/16 13:15 11/21/16 12:38 Maxipime 1gm IVPB 100 mls/hr Q24H ARLETTE Administration Protocol Dextrose 500 mls @ 20 mls/hr 11/16/16 18:45 11/21/16 18:49 Dextrose 10% In Water IV 20 mls/hr .Q24H ARLETTE Administration Metronidazole 500 mg in 100 mls @ 100 mls/hr 11/19/16 19:15 11/22/16 05:36 Flagyl IVPB 100 mls/hr Q8 ARLETTE Administration Protocol Dobutamine HCl/Dextrose 500 mg in 250 mls @ 5.647 mls/hr 11/20/16 07:32 11/22 09:11 Dobutamine/Dextrose 5% 500mg/250ml IV 5.647 mls/hr .Q24H PRN Administration TITRATE PER PROTOCOL Protocol 2.5 MCG/KG/MIN Lactic Acid 0 ea 11/13/16 09:22 Lac-Hydrin 12% Cream (140 G) TOP DAILY PRN Wound Lactulose 200 gm 11/19/16 12:00 11/22/16 12:11 Generlac SC 11/24/16 12:01 Not Given Q6 [facility] Multivitamins/Minerals 1 tab 11/12/16 11:30 11/22/16 10:51 Therapeutic-M Tab PO Not Given DAILY [facility] Pantoprazole Sodium 40 mg 11/19/16 22:00 11/22/16 10:48 Protonix Inj IVP 40 mg Q12 ARLETTE Administration Rifaximin 550 mg 11/18/16 10:15 11/19/16 14:57 Xifaxan PO Not Given BID [facility] Protocol - Patient Studies Lab Studies: Lab Studies 11/22/16 11/22/16 11/22/16 Range/Units 11:33 07:24 06:10 WBC (4.5-11.0) 10^3/ul RBC (3.5-6.1) 10^6/uL Hgb (12.0-16.0) g/dL Hct (36.0-48.0) % MCV (80.0-105.0) fl MCH (25.0-35.0) pg MCHC (31.0-37.0) g/dl RDW (11.5-14.5) % Plt Count (120.0-450.0) 10^3/uL Manual Plt Count 18 L* (120-450) K/mm3 Baso % (Auto) (0.0-3.0) % Baso # (0.0-2.0) K/mm3 Corrected WBC (Man) (4.5-11.0) K/mm3 Neutrophils % (Manual) (50.0-70.0) % Lymphocytes % (Manual) (22.0-35.0) % Monocytes % (Manual) (1.0-6.0) % Eosinophils % (Manual) (0.0-3.0) % Basophils % (Manual) (0.0-1.0) % Myelocytes % % Nucleated RBC % % Platelet Evaluation (NORMAL) Poikilocytosis (manual Sickle Cells Ovalocytes PT (9.9-11.8) Seconds INR (0.93-1.08) Fibrinogen (187-400) mg/dL pO2 (30-55) mm/Hg VBG pH (7.32-7.43) VBG pCO2 (40-60) VBG HCO3 (21-28) mmol/l VBG Total CO2 (22-28) mmol.L VBG O2 Sat (Calc) (40-65) % VBG Base Excess (0.0-2.0) mmol/L VBG Potassium (3.6-5.2) mmol/L Sodium 135 (132-148) mmol/L Chloride 94 L (98-107) mmol/L Glucose (65-105) mg/dl Lactate (0.7-2.1) mmol/L FiO2 % Potassium 3.6 (3.6-5.0) mmol/L Carbon Dioxide 27 (21-33) mmol/L Anion Gap 18 (10-20) BUN 46 H (7-21) mg/dL Creatinine 1.9 H (0.5-1.4) mg/dL Est GFR ( Amer) 36 Est GFR (Non-Af Amer) 30 POC Glucose (mg/dL) 146 H (65-110) mg/dL Random Glucose 118 H (70-110) mg/dL Calcium 6.9 L* (8.4-10.5) mg/dL Phosphorus 5.6 H (2.5-4.5) mg/dL Magnesium 2.0 (1.7-2.2) mg/dL Total Bilirubin 19.9 H* (0.2-1.3) mg/dL AST 693 H (14-36) U/L ALT 153 H (7-56) U/L Alkaline Phosphatase 594 H D (38-126) U/L Total Protein 5.6 L (5.8-8.3) g/dL Albumin 2.6 L (3.0-4.8) g/dL Globulin 3.0 gm/dL Albumin/Globulin Ratio 0.9 L (1.1-1.8) Venous Blood Potassium (3.6-5.2) mmol/L 11/22/16 11/22/16 11/22/16 Range/Units 06:10 06:10 05:48 WBC 36.5 H* D (4.5-11.0) 10^3/ul RBC 2.50 L (3.5-6.1) 10^6/uL Hgb 7.6 L (12.0-16.0) g/dL Hct 20.5 L* (36.0-48.0) % MCV 82.0 (80.0-105.0) fl MCH 30.4 (25.0-35.0) pg MCHC 37.1 H (31.0-37.0) g/dl RDW 16.3 H (11.5-14.5) % Plt Count 18 L* (120.0-450.0) 10^3/uL Manual Plt Count (120-450) K/mm3 Baso % (Auto) 0.4 (0.0-3.0) % Baso # 0.16 (0.0-2.0) K/mm3 Corrected WBC (Man) 5.7 (4.5-11.0) K/mm3 Neutrophils % (Manual) 72 H (50.0-70.0) % Lymphocytes % (Manual) 17 L (22.0-35.0) % Monocytes % (Manual) 7 H (1.0-6.0) % Eosinophils % (Manual) 0 (0.0-3.0) % Basophils % (Manual) 0 (0.0-1.0) % Myelocytes % 4 % Nucleated RBC % 540 % Platelet Evaluation Low (NORMAL) Poikilocytosis (manual Slight Sickle Cells Slight Ovalocytes Slight PT 21.1 H (9.9-11.8) Seconds INR 1.95 H (0.93-1.08) Fibrinogen 120.0 L (187-400) mg/dL pO2 (30-55) mm/Hg VBG pH (7.32-7.43) VBG pCO2 (40-60) VBG HCO3 (21-28) mmol/l VBG Total CO2 (22-28) mmol.L VBG O2 Sat (Calc) (40-65) % VBG Base Excess (0.0-2.0) mmol/L VBG Potassium (3.6-5.2) mmol/L Sodium (132-148) mmol/L Chloride (98-107) mmol/L Glucose (65-105) mg/dl Lactate (0.7-2.1) mmol/L FiO2 % Potassium (3.6-5.0) mmol/L Carbon Dioxide (21-33) mmol/L Anion Gap (10-20) BUN (7-21) mg/dL Creatinine (0.5-1.4) mg/dL Est GFR ( Amer) Est GFR (Non-Af Amer) POC Glucose (mg/dL) 97 (65-110) mg/dL Random Glucose (70-110) mg/dL Calcium (8.4-10.5) mg/dL Phosphorus (2.5-4.5) mg/dL Magnesium (1.7-2.2) mg/dL Total Bilirubin (0.2-1.3) mg/dL AST (14-36) U/L ALT (7-56) U/L Alkaline Phosphatase (38-126) U/L Total Protein (5.8-8.3) g/dL Albumin (3.0-4.8) g/dL Globulin gm/dL Albumin/Globulin Ratio (1.1-1.8) Venous Blood Potassium (3.6-5.2) mmol/L 11/21/16 11/21/16 11/21/16 Range/Units 23:39 16:24 16:01 WBC (4.5-11.0) 10^3/ul RBC (3.5-6.1) 10^6/uL Hgb (12.0-16.0) g/dL Hct (36.0-48.0) % MCV (80.0-105.0) fl MCH (25.0-35.0) pg MCHC (31.0-37.0) g/dl RDW (11.5-14.5) % Plt Count (120.0-450.0) 10^3/uL Manual Plt Count (120-450) K/mm3 Baso % (Auto) (0.0-3.0) % Baso # (0.0-2.0) K/mm3 Corrected WBC (Man) (4.5-11.0) K/mm3 Neutrophils % (Manual) (50.0-70.0) % Lymphocytes % (Manual) (22.0-35.0) % Monocytes % (Manual) (1.0-6.0) % Eosinophils % (Manual) (0.0-3.0) % Basophils % (Manual) (0.0-1.0) % Myelocytes % % Nucleated RBC % % Platelet Evaluation (NORMAL) Poikilocytosis (manual Sickle Cells Ovalocytes PT (9.9-11.8) Seconds INR (0.93-1.08) Fibrinogen (187-400) mg/dL pO2 55 (30-55) mm/Hg VBG pH 7.34 (7.32-7.43) VBG pCO2 49.0 (40-60) VBG HCO3 26.4 (21-28) mmol/l VBG Total CO2 27.9 (22-28) mmol.L VBG O2 Sat (Calc) 92.8 H (40-65) % VBG Base Excess 0.0 (0.0-2.0) mmol/L VBG Potassium 3.7 (3.6-5.2) mmol/L Sodium 134.0 (132-148) mmol/L Chloride 96.0 L (98-107) mmol/L Glucose 131 H (65-105) mg/dl Lactate 5.8 H* (0.7-2.1) mmol/L FiO2 21.0 % Potassium (3.6-5.0) mmol/L Carbon Dioxide (21-33) mmol/L Anion Gap (10-20) BUN (7-21) mg/dL Creatinine (0.5-1.4) mg/dL Est GFR ( Amer) Est GFR (Non-Af Amer) POC Glucose (mg/dL) 144 H 138 H (65-110) mg/dL Random Glucose (70-110) mg/dL Calcium (8.4-10.5) mg/dL Phosphorus (2.5-4.5) mg/dL Magnesium (1.7-2.2) mg/dL Total Bilirubin (0.2-1.3) mg/dL AST (14-36) U/L ALT (7-56) U/L Alkaline Phosphatase (38-126) U/L Total Protein (5.8-8.3) g/dL Albumin (3.0-4.8) g/dL Globulin gm/dL Albumin/Globulin Ratio (1.1-1.8) Venous Blood Potassium 3.7 (3.6-5.2) mmol/L 11/21/16 11/21/16 11/21/16 Range/Units 16:01 11:07 07:47 WBC (4.5-11.0) 10^3/ul RBC (3.5-6.1) 10^6/uL Hgb (12.0-16.0) g/dL Hct (36.0-48.0) % MCV (80.0-105.0) fl MCH (25.0-35.0) pg MCHC (31.0-37.0) g/dl RDW (11.5-14.5) % Plt Count (120.0-450.0) 10^3/uL Manual Plt Count (120-450) K/mm3 Baso % (Auto) (0.0-3.0) % Baso # (0.0-2.0) K/mm3 Corrected WBC (Man) (4.5-11.0) K/mm3 Neutrophils % (Manual) (50.0-70.0) % Lymphocytes % (Manual) (22.0-35.0) % Monocytes % (Manual) (1.0-6.0) % Eosinophils % (Manual) (0.0-3.0) % Basophils % (Manual) (0.0-1.0) % Myelocytes % % Nucleated RBC % % Platelet Evaluation (NORMAL) Poikilocytosis (manual Sickle Cells Ovalocytes PT (9.9-11.8) Seconds INR (0.93-1.08) Fibrinogen (187-400) mg/dL pO2 (30-55) mm/Hg VBG pH (7.32-7.43) VBG pCO2 (40-60) VBG HCO3 (21-28) mmol/l VBG Total CO2 (22-28) mmol.L VBG O2 Sat (Calc) (40-65) % VBG Base Excess (0.0-2.0) mmol/L VBG Potassium (3.6-5.2) mmol/L Sodium (132-148) mmol/L Chloride (98-107) mmol/L Glucose (65-105) mg/dl Lactate (0.7-2.1) mmol/L FiO2 % Potassium 3.7 (3.6-5.0) mmol/L Carbon Dioxide (21-33) mmol/L Anion Gap (10-20) BUN (7-21) mg/dL Creatinine (0.5-1.4) mg/dL Est GFR ( Amer) Est GFR (Non-Af Amer) POC Glucose (mg/dL) 154 H 148 H (65-110) mg/dL Random Glucose (70-110) mg/dL Calcium (8.4-10.5) mg/dL Phosphorus (2.5-4.5) mg/dL Magnesium 2.2 (1.7-2.2) mg/dL Total Bilirubin (0.2-1.3) mg/dL AST (14-36) U/L ALT (7-56) U/L Alkaline Phosphatase (38-126) U/L Total Protein (5.8-8.3) g/dL Albumin (3.0-4.8) g/dL Globulin gm/dL Albumin/Globulin Ratio (1.1-1.8) Venous Blood Potassium (3.6-5.2) mmol/L 11/21/16 Range/Units 00:37 WBC (4.5-11.0) 10^3/ul RBC (3.5-6.1) 10^6/uL Hgb (12.0-16.0) g/dL Hct (36.0-48.0) % MCV (80.0-105.0) fl MCH (25.0-35.0) pg MCHC (31.0-37.0) g/dl RDW (11.5-14.5) % Plt Count (120.0-450.0) 10^3/uL Manual Plt Count (120-450) K/mm3 Baso % (Auto) (0.0-3.0) % Baso # (0.0-2.0) K/mm3 Corrected WBC (Man) (4.5-11.0) K/mm3 Neutrophils % (Manual) (50.0-70.0) % Lymphocytes % (Manual) (22.0-35.0) % Monocytes % (Manual) (1.0-6.0) % Eosinophils % (Manual) (0.0-3.0) % Basophils % (Manual) (0.0-1.0) % Myelocytes % % Nucleated RBC % % Platelet Evaluation (NORMAL) Poikilocytosis (manual Sickle Cells Ovalocytes PT (9.9-11.8) Seconds INR (0.93-1.08) Fibrinogen (187-400) mg/dL pO2 (30-55) mm/Hg VBG pH (7.32-7.43) VBG pCO2 (40-60) VBG HCO3 (21-28) mmol/l VBG Total CO2 (22-28) mmol.L VBG O2 Sat (Calc) (40-65) % VBG Base Excess (0.0-2.0) mmol/L VBG Potassium (3.6-5.2) mmol/L Sodium (132-148) mmol/L Chloride (98-107) mmol/L Glucose (65-105) mg/dl Lactate (0.7-2.1) mmol/L FiO2 % Potassium (3.6-5.0) mmol/L Carbon Dioxide (21-33) mmol/L Anion Gap (10-20) BUN (7-21) mg/dL Creatinine (0.5-1.4) mg/dL Est GFR ( Amer) Est GFR (Non-Af Amer) POC Glucose (mg/dL) 183 H (65-110) mg/dL Random Glucose (70-110) mg/dL Calcium (8.4-10.5) mg/dL Phosphorus (2.5-4.5) mg/dL Magnesium (1.7-2.2) mg/dL Total Bilirubin (0.2-1.3) mg/dL AST (14-36) U/L ALT (7-56) U/L Alkaline Phosphatase (38-126) U/L Total Protein (5.8-8.3) g/dL Albumin (3.0-4.8) g/dL Globulin gm/dL Albumin/Globulin Ratio (1.1-1.8) Venous Blood Potassium (3.6-5.2) mmol/L Laboratory Results - last 24 hr 11/21/16 11/21/16 11/21/16 00:37 07:47 11:07 WBC RBC Hgb Hct MCV MCH MCHC RDW Plt Count Manual Plt Count Baso % (Auto) Baso # Corrected WBC (Man) Neutrophils % (Manual) Lymphocytes % (Manual) Monocytes % (Manual) Eosinophils % (Manual) Basophils % (Manual) Myelocytes % Nucleated RBC % Platelet Evaluation Poikilocytosis (manual Sickle Cells Ovalocytes PT INR Fibrinogen pO2 VBG pH VBG pCO2 VBG HCO3 VBG Total CO2 VBG O2 Sat (Calc) VBG Base Excess VBG Potassium Sodium Chloride Glucose Lactate FiO2 Potassium Carbon Dioxide Anion Gap BUN Creatinine Est GFR ( Amer) Est GFR (Non-Af Amer) POC Glucose (mg/dL) 183 H 148 H 154 H Random Glucose Calcium Phosphorus Magnesium Total Bilirubin AST ALT Alkaline Phosphatase Total Protein Albumin Globulin Albumin/Globulin Ratio Venous Blood Potassium 11/21/16 11/21/16 11/21/16 16:01 16:01 16:24 WBC RBC Hgb Hct MCV MCH MCHC RDW Plt Count Manual Plt Count Baso % (Auto) Baso # Corrected WBC (Man) Neutrophils % (Manual) Lymphocytes % (Manual) Monocytes % (Manual) Eosinophils % (Manual) Basophils % (Manual) Myelocytes % Nucleated RBC % Platelet Evaluation Poikilocytosis (manual Sickle Cells Ovalocytes PT INR Fibrinogen pO2 55 VBG pH 7.34 VBG pCO2 49.0 VBG HCO3 26.4 VBG Total CO2 27.9 VBG O2 Sat (Calc) 92.8 H VBG Base Excess 0.0 VBG Potassium 3.7 Sodium 134.0 Chloride 96.0 L Glucose 131 H Lactate 5.8 H* FiO2 21.0 Potassium 3.7 Carbon Dioxide Anion Gap BUN Creatinine Est GFR ( Amer) Est GFR (Non-Af Amer) POC Glucose (mg/dL) 138 H Random Glucose Calcium Phosphorus Magnesium 2.2 Total Bilirubin AST ALT Alkaline Phosphatase Total Protein Albumin Globulin Albumin/Globulin Ratio Venous Blood Potassium 3.7 11/21/16 11/22/16 11/22/16 23:39 05:48 06:10 WBC RBC Hgb Hct MCV MCH MCHC RDW Plt Count Manual Plt Count Baso % (Auto) Baso # Corrected WBC (Man) Neutrophils % (Manual) Lymphocytes % (Manual) Monocytes % (Manual) Eosinophils % (Manual) Basophils % (Manual) Myelocytes % Nucleated RBC % Platelet Evaluation Poikilocytosis (manual Sickle Cells Ovalocytes PT 21.1 H INR 1.95 H Fibrinogen 120.0 L pO2 VBG pH VBG pCO2 VBG HCO3 VBG Total CO2 VBG O2 Sat (Calc) VBG Base Excess VBG Potassium Sodium Chloride Glucose Lactate FiO2 Potassium Carbon Dioxide Anion Gap BUN Creatinine Est GFR ( Amer) Est GFR (Non-Af Amer) POC Glucose (mg/dL) 144 H 97 Random Glucose Calcium Phosphorus Magnesium Total Bilirubin AST ALT Alkaline Phosphatase Total Protein Albumin Globulin Albumin/Globulin Ratio Venous Blood Potassium 11/22/16 11/22/16 11/22/16 06:10 06:10 07:24 WBC 36.5 H* D RBC 2.50 L Hgb 7.6 L Hct 20.5 L* MCV 82.0 MCH 30.4 MCHC 37.1 H RDW 16.3 H Plt Count 18 L* Manual Plt Count 18 L* Baso % (Auto) 0.4 Baso # 0.16 Corrected WBC (Man) 5.7 Neutrophils % (Manual) 72 H Lymphocytes % (Manual) 17 L Monocytes % (Manual) 7 H Eosinophils % (Manual) 0 Basophils % (Manual) 0 Myelocytes % 4 Nucleated RBC % 540 Platelet Evaluation Low Poikilocytosis (manual Slight Sickle Cells Slight Ovalocytes Slight PT INR Fibrinogen pO2 VBG pH VBG pCO2 VBG HCO3 VBG Total CO2 VBG O2 Sat (Calc) VBG Base Excess VBG Potassium Sodium 135 Chloride 94 L Glucose Lactate FiO2 Potassium 3.6 Carbon Dioxide 27 Anion Gap 18 BUN 46 H Creatinine 1.9 H Est GFR ( Amer) 36 Est GFR (Non-Af Amer) 30 POC Glucose (mg/dL) Random Glucose 118 H Calcium 6.9 L* Phosphorus 5.6 H Magnesium 2.0 Total Bilirubin 19.9 H* AST 693 H ALT 153 H Alkaline Phosphatase 594 H D Total Protein 5.6 L Albumin 2.6 L Globulin 3.0 Albumin/Globulin Ratio 0.9 L Venous Blood Potassium 11/22/16 11:33 WBC RBC Hgb Hct MCV MCH MCHC RDW Plt Count Manual Plt Count Baso % (Auto) Baso # Corrected WBC (Man) Neutrophils % (Manual) Lymphocytes % (Manual) Monocytes % (Manual) Eosinophils % (Manual) Basophils % (Manual) Myelocytes % Nucleated RBC % Platelet Evaluation Poikilocytosis (manual Sickle Cells Ovalocytes PT INR Fibrinogen pO2 VBG pH VBG pCO2 VBG HCO3 VBG Total CO2 VBG O2 Sat (Calc) VBG Base Excess VBG Potassium Sodium Chloride Glucose Lactate FiO2 Potassium Carbon Dioxide Anion Gap BUN Creatinine Est GFR ( Amer) Est GFR (Non-Af Amer) POC Glucose (mg/dL) 146 H Random Glucose Calcium Phosphorus Magnesium Total Bilirubin AST ALT Alkaline Phosphatase Total Protein Albumin Globulin Albumin/Globulin Ratio Venous Blood Potassium Fingerstick Blood Sugar Results: 146 Review of Systems - Review of Systems Systems not reviewed;Unavailable: Other (non-verbal) Critical Care Progress Note - Nutrition Nutrition: Nutrition Category Date Time Status NPO Diet [DIET] Diets 11/18/16 Dinner Ordered Assessment/Plan - Assessment and Plan (Free Text) Assessment: This is a 36 yo AA F with PMH of Sickle cell disease, Bipolar disorder, cerebral palsy, Asthma, and CHF who initially presented to [facility] with RUQ abd pain , and later developed Sickle cell crisis, Acute Chest Syndrome, GI bleed, and now has MODS including hepatic failure (2/2 hemochromatosis from multiple transfusions vs vaso-occlusive crisis), renal failure, and respiratory failure requiring intubation. Denied for transfer to [facility] and [facility], not a candidate for liver transplant as per [facility]. S/p 2 rounds of transfusion exchange and 3 rounds of HD, pending another HD today. Plan: Neuro: -Extubated and non-sedated, awake and intermittently alert but not following most commands -maintain normothermia -GCS 10 (E4 V2 M4) -Head CT to r/o CVA given sickle cell hx and continued lethargic/poorly responsive state, f/u -Hold any sedating meds given lethargic condition, want to assess degree of mental capacity recovery s/p sedation Pulm: -Extubated, satting well on High flow nasal canula -Maintain SaO2 > 92% -CXR today reviewed, read as possible layering pleural effusions, poor lung volumes possible 2/2 poor inspiratory efforts Cardio: -Shock requiring dual vasopressor support has resolved, remains off pressor support -Hypovolemic shock (from GI bleed + coagulapathy 2/2 liver failure) vs distributive (sepsis vs viscosity 2/2 vaso-occlusive), likely multifactorial -Maintain MAP > 65 -borderline tachycardic, HR high 90's to 100's, hemodynamically stable -s/p multiple transfusions, 1 platelets and 1 cryo today; total transfusions since admission: 17 pRBC, 9 FFP, 4 Platelets, 3 Cryoprecipitate -INR increased 1.81 to 1.95, Fibrinogen decreased from 141.2 to 120; as per Heme -onc, Fibrinogen check tomorrow AM, if < 100 given another unit of cryoprecipitate -S/p 3rd HD and 2nd exchange transfusion -Cardiomegaly on CXR, most recent echo (June 2016) notable for EF 35-40%, normal size LV with nml wall thickness, trace AR, mild-mod MR, and mod TR -Continue Dobutamine -Dr. Deshpande (Cardio) on board, appreciate all recs -LE duplex to r/o LE DVT, will f/u GI: -NPO, pending swallow study -Lactulose SC -Protonix IVP 40mg BID for ppx as per GI -Bedside EGD performed on 11/19, bleed found and injected with Epi/cauterized, thought to be 2/2 trauma from NGT placement -Diarrhea, but no reported melanotic stools; C. diff sent due to collitis visualized on abd/pelvis CT, toxin negative/antigen positive -Coagulpathy 2/2 Acute hepatic failure, INR 1.95 today -Acute hepatic failure 2/2 acquired hemochromatosis from repeated transfusions vs acute vaso-occlusive crisis vs shock liver -Dr. Duong (GI) on board, appreciate all recs; as per GI no further interventions indicated from GI standpoint, will sign off -Not a candidate for Liver Transplant as per [facility] Renal: -Cr 1.9 today (was 1.8) -Acute renal failure, likely 2/2 shock vs vaso-occlusive crisis -S/p 3rd rounds of HD, 2nd exchange transfusion -Bloody urine output, decreased urine output -Monitor I's and O's -Monitor and replete electrolytes as needed -Maintain Euglycemia (BG 140-180) -S/p hemodialysis catheter placement by Surgery on 11/17 -Dr. Perez (Nephro) on board, appreciate all recs; planning another round of HD today, as per Heme-onc, NO heparin with HD today Heme: -Coagulopathy 2/2 acute hepatic failure -S/p 2rd round of HD, 2nd exchange transfusion -s/p multiple transfusions, 1 platelets and 1 cryo today; total transfusions since admission: 17 pRBC, 9 FFP, 4 Platelets, 3 Cryoprecipitate -INR increased 1.81 to 1.95, Fibrinogen decreased from 141.2 to 120; as per Heme -onc, Fibrinogen check tomorrow AM, if < 100 given another unit of cryoprecipitate -Platelets 18 on automatic and manual counts, 1 unit platelets ordered -Fibrinogen decreased from 141.2 to 120; as per Heme-onc recheck tomorrow AM and if < 100 give another unit of Cryo -Hemoglobin S pending, want <= 30 as per Heme-onc -No AC given possible GI bleeding and coagulopathy from hepatic failure -Dr. Palacios (Heme-onc) on board, appreciate all recs ID: -WBC increased to 36.5 -Dr. Batres (ID) following, continue Cefepime and Vanco (renally dosed), Flagyl IV q8 -1x blood culture on admission (+) for Coag negative Staph on 11/13, all remaining cultures negative -C Diff sent, antigen positive/toxin negative, pending repeat check -Lactate improved to 4.8 on ABG yesterday Dispo: ICU, off pressors and extubated to high-flow nasal canula, pending another HD; denied for transplant by [facility], denies for tertiary tare transfer by [facility] and [facility]: NPO, no feeds due to GI bleed, D10W 20cc/hr; pending swallow study Access: Peripheral IVs, R-chest port; NO NGT as per GI Consults: ID, Nephro, Heme-onc, GI (signed off), Cardio, Psych, Surgery, Palliative Code Status: Full code Patient seen, reviewed, and discussed with attending, Dr. Noble <Real ANGUIANO,[facility] H - Last Filed: 11/22/16 18:17> CCU Objective - Vital Signs / Intake & Output Vital Signs (Last 4 hours): Vital Signs Temp Pulse Resp BP Pulse Ox 11/22/16 18:02 53 L 12 82/42 L 98 11/22/16 18:00 66 14 0/0 L 98 11/22/16 17:59 53 L 18 94/44 L 98 11/22/16 17:52 59 L 15 102/44 L 97 11/22/16 17:30 93 H 16 84/48 L 99 11/22/16 17:17 87 20 89/56 L 85 L 11/22/16 17:00 99 H 20 89 L 11/22/16 16:59 103 H 15 79/45 L 89 L 11/22/16 16:37 105 H 20 91/48 L 96 11/22/16 16:17 99 H 10 L 99/44 L 96 11/22/16 16:14 98 H 21 66/41 L 98 11/22/16 16:02 100 H 16 89/37 L 97 11/22/16 16:00 97 F L 92 H 14 95 11/22/16 15:44 98 H 15 84/45 L 98 11/22/16 15:39 97 H 12 89/49 L 100 11/22/16 15:30 57 L 24 84/50 L 93 L 11/22/16 15:02 55 L 28 H 106/50 L 97 11/22/16 15:01 56 L 18 97 11/22/16 15:00 55 L 14 97 11/22/16 14:31 98 H 17 125/69 93 L Intake and Output (Last 8hrs): Intake & Output 11/22/16 11/22/16 11/22/16 06:59 14:59 22:59 Intake Total 576 288 Output Total 100 130 Balance 476 288 -130 Weight 170 lb Intake: IV 376 D10W 240 Left Femoral 136 Left Hand 0 right chest wall 0 Oral 0 Tube Feeding 0 TPN/PPN 0 Blood Product 0 288 Apheresis Plts Acda Lr 288 Irr Unit [id number] Lipid 0 Albumin 0 Other 200 Output: Urine 100 130 2-way Urethral 100 130 Urine, Voided 0 Stool 0 Urine/Stool Mix 0 Emesis 0 Oral Regurgitation 0 Other 0 Other: # Voids 2-way Urethral 0 Urine, Voided 0 # Bowel Movements 0 - Medications Active Medications: Active Medications Generic Name Dose Route Start Last Admin Trade Name Freq PRN Reason Stop Dose Admin Albuterol/Ipratropium 3 ml 11/16/16 14:00 11/22/16 13:21 Duoneb 3 Mg/0.5 Mg (3 Ml) Ud IH 3 ml [id number] ARLETTE Administration Ergocalciferol 1 cap 11/12/16 10:00 11/19/16 14:47 Drisdol 50,000 Intl Units Cap PO Not Given QWK ARLETTE Folic Acid 1 mg 11/12/16 10:00 11/22/16 10:41 Folic Acid PO Not Given DAILY ARLETTE Furosemide 40 mg 11/16/16 10:00 11/17/16 09:00 Lasix IVP 40 mg DAILY ARLETTE Administration Heparin Sodium (Porcine) 5,000 units 11/13/16 01:15 11/16/16 21:44 Heparin SC Not Given Q12 ARLETTE Protocol Hydrocortisone Sodium Succinate 50 mg 11/19/16 07:15 11/22/16 15:10 Solu-Cortef IVP 50 mg Q8 ARLETTE Administration Hydroxyurea 500 mg 11/12/16 10:00 11/22/16 10:41 Hydrea PO Not Given DAILY ARLETTE Vancomycin HCl 1 gm in 250 mls @ 167 mls/hr 11/15/16 11:30 11/22/16 11:01 Vancomycin 1gm IVPB 167 mls/hr DAILY ARLETTE Administration Protocol Cefepime HCl 1 gm in 100 mls @ 100 mls/hr 11/15/16 13:15 11/22/16 13:24 Maxipime 1gm IVPB 100 mls/hr Q24H ARLETTE Administration Protocol Dextrose 500 mls @ 20 mls/hr 11/16/16 18:45 11/21/16 18:49 Dextrose 10% In Water IV 20 mls/hr .Q24H ARLETTE Administration Metronidazole 500 mg in 100 mls @ 100 mls/hr 11/19/16 19:15 11/22/16 15:16 Flagyl IVPB 100 mls/hr Q8 ARLETTE Administration Protocol Dobutamine HCl/Dextrose 500 mg in 250 mls @ 5.647 mls/hr 11/20/16 07:32 11/22 09:11 Dobutamine/Dextrose 5% 500mg/250ml IV 5.647 mls/hr .Q24H PRN Administration TITRATE PER PROTOCOL Protocol 2.5 MCG/KG/MIN Lactic Acid 0 ea 11/13/16 09:22 Lac-Hydrin 12% Cream (140 G) TOP DAILY PRN Wound Lactulose 200 gm 11/19/16 12:00 11/22/16 17:25 Generlac SC 11/24/16 12:01 Not Given Q6 ARLETTE Multivitamins/Minerals 1 tab 11/12/16 11:30 11/22/16 10:51 Therapeutic-M Tab PO Not Given DAILY ARLETTE Pantoprazole Sodium 40 mg 11/19/16 22:00 11/22/16 10:48 Protonix Inj IVP 40 mg Q12 ARLETTE Administration Rifaximin 550 mg 11/18/16 10:15 11/19/16 14:57 Xifaxan PO Not Given BID ARLETTE Protocol - Patient Studies Lab Studies: Lab Studies 11/22/16 11/22/16 11/22/16 Range/Units 11:33 07:24 06:10 WBC (4.5-11.0) 10^3/ul RBC (3.5-6.1) 10^6/uL Hgb (12.0-16.0) g/dL Hct (36.0-48.0) % MCV (80.0-105.0) fl MCH (25.0-35.0) pg MCHC (31.0-37.0) g/dl RDW (11.5-14.5) % Plt Count (120.0-450.0) 10^3/uL Manual Plt Count 18 L* (120-450) K/mm3 Baso % (Auto) (0.0-3.0) % Baso # (0.0-2.0) K/mm3 Corrected WBC (Man) (4.5-11.0) K/mm3 Neutrophils % (Manual) (50.0-70.0) % Lymphocytes % (Manual) (22.0-35.0) % Monocytes % (Manual) (1.0-6.0) % Eosinophils % (Manual) (0.0-3.0) % Basophils % (Manual) (0.0-1.0) % Myelocytes % % Nucleated RBC % % Platelet Evaluation (NORMAL) Poikilocytosis (manual Sickle Cells Ovalocytes PT (9.9-11.8) Seconds INR (0.93-1.08) Fibrinogen (187-400) mg/dL Sodium 135 (132-148) mmol/L Potassium 3.6 (3.6-5.0) mmol/L Chloride 94 L (98-107) mmol/L Carbon Dioxide 27 (21-33) mmol/L Anion Gap 18 (10-20) BUN 46 H (7-21) mg/dL Creatinine 1.9 H (0.5-1.4) mg/dL Est GFR ( Amer) 36 Est GFR (Non-Af Amer) 30 POC Glucose (mg/dL) 146 H (65-110) mg/dL Random Glucose 118 H (70-110) mg/dL Calcium 6.9 L* (8.4-10.5) mg/dL Phosphorus 5.6 H (2.5-4.5) mg/dL Magnesium 2.0 (1.7-2.2) mg/dL Total Bilirubin 19.9 H* (0.2-1.3) mg/dL AST 693 H (14-36) U/L ALT 153 H (7-56) U/L Alkaline Phosphatase 594 H D (38-126) U/L Total Protein 5.6 L (5.8-8.3) g/dL Albumin 2.6 L (3.0-4.8) g/dL Globulin 3.0 gm/dL Albumin/Globulin Ratio 0.9 L (1.1-1.8) Crossmatch 11/22/16 11/22/16 11/22/16 Range/Units 06:10 06:10 05:48 WBC 36.5 H* D (4.5-11.0) 10^3/ul RBC 2.50 L (3.5-6.1) 10^6/uL Hgb 7.6 L (12.0-16.0) g/dL Hct 20.5 L* (36.0-48.0) % MCV 82.0 (80.0-105.0) fl MCH 30.4 (25.0-35.0) pg MCHC 37.1 H (31.0-37.0) g/dl RDW 16.3 H (11.5-14.5) % Plt Count 18 L* (120.0-450.0) 10^3/uL Manual Plt Count (120-450) K/mm3 Baso % (Auto) 0.4 (0.0-3.0) % Baso # 0.16 (0.0-2.0) K/mm3 Corrected WBC (Man) 5.7 (4.5-11.0) K/mm3 Neutrophils % (Manual) 72 H (50.0-70.0) % Lymphocytes % (Manual) 17 L (22.0-35.0) % Monocytes % (Manual) 7 H (1.0-6.0) % Eosinophils % (Manual) 0 (0.0-3.0) % Basophils % (Manual) 0 (0.0-1.0) % Myelocytes % 4 % Nucleated RBC % 540 % Platelet Evaluation Low (NORMAL) Poikilocytosis (manual Slight Sickle Cells Slight Ovalocytes Slight PT 21.1 H (9.9-11.8) Seconds INR 1.95 H (0.93-1.08) Fibrinogen 120.0 L (187-400) mg/dL Sodium (132-148) mmol/L Potassium (3.6-5.0) mmol/L Chloride (98-107) mmol/L Carbon Dioxide (21-33) mmol/L Anion Gap (10-20) BUN (7-21) mg/dL Creatinine (0.5-1.4) mg/dL Est GFR ( Amer) Est GFR (Non-Af Amer) POC Glucose (mg/dL) 97 (65-110) mg/dL Random Glucose (70-110) mg/dL Calcium (8.4-10.5) mg/dL Phosphorus (2.5-4.5) mg/dL Magnesium (1.7-2.2) mg/dL Total Bilirubin (0.2-1.3) mg/dL AST (14-36) U/L ALT (7-56) U/L Alkaline Phosphatase (38-126) U/L Total Protein (5.8-8.3) g/dL Albumin (3.0-4.8) g/dL Globulin gm/dL Albumin/Globulin Ratio (1.1-1.8) Crossmatch 11/21/16 11/21/16 11/21/16 Range/Units 23:39 16:24 11:07 WBC (4.5-11.0) 10^3/ul RBC (3.5-6.1) 10^6/uL Hgb (12.0-16.0) g/dL Hct (36.0-48.0) % MCV (80.0-105.0) fl MCH (25.0-35.0) pg MCHC (31.0-37.0) g/dl RDW (11.5-14.5) % Plt Count (120.0-450.0) 10^3/uL Manual Plt Count (120-450) K/mm3 Baso % (Auto) (0.0-3.0) % Baso # (0.0-2.0) K/mm3 Corrected WBC (Man) (4.5-11.0) K/mm3 Neutrophils % (Manual) (50.0-70.0) % Lymphocytes % (Manual) (22.0-35.0) % Monocytes % (Manual) (1.0-6.0) % Eosinophils % (Manual) (0.0-3.0) % Basophils % (Manual) (0.0-1.0) % Myelocytes % % Nucleated RBC % % Platelet Evaluation (NORMAL) Poikilocytosis (manual Sickle Cells Ovalocytes PT (9.9-11.8) Seconds INR (0.93-1.08) Fibrinogen (187-400) mg/dL Sodium (132-148) mmol/L Potassium (3.6-5.0) mmol/L Chloride (98-107) mmol/L Carbon Dioxide (21-33) mmol/L Anion Gap (10-20) BUN (7-21) mg/dL Creatinine (0.5-1.4) mg/dL Est GFR ( Amer) Est GFR (Non-Af Amer) POC Glucose (mg/dL) 144 H 138 H 154 H (65-110) mg/dL Random Glucose (70-110) mg/dL Calcium (8.4-10.5) mg/dL Phosphorus (2.5-4.5) mg/dL Magnesium (1.7-2.2) mg/dL Total Bilirubin (0.2-1.3) mg/dL AST (14-36) U/L ALT (7-56) U/L Alkaline Phosphatase (38-126) U/L Total Protein (5.8-8.3) g/dL Albumin (3.0-4.8) g/dL Globulin gm/dL Albumin/Globulin Ratio (1.1-1.8) Crossmatch 11/21/16 11/21/16 11/19/16 Range/Units 07:47 00:37 10:05 WBC (4.5-11.0) 10^3/ul RBC (3.5-6.1) 10^6/uL Hgb (12.0-16.0) g/dL Hct (36.0-48.0) % MCV (80.0-105.0) fl MCH (25.0-35.0) pg MCHC (31.0-37.0) g/dl RDW (11.5-14.5) % Plt Count (120.0-450.0) 10^3/uL Manual Plt Count (120-450) K/mm3 Baso % (Auto) (0.0-3.0) % Baso # (0.0-2.0) K/mm3 Corrected WBC (Man) (4.5-11.0) K/mm3 Neutrophils % (Manual) (50.0-70.0) % Lymphocytes % (Manual) (22.0-35.0) % Monocytes % (Manual) (1.0-6.0) % Eosinophils % (Manual) (0.0-3.0) % Basophils % (Manual) (0.0-1.0) % Myelocytes % % Nucleated RBC % % Platelet Evaluation (NORMAL) Poikilocytosis (manual Sickle Cells Ovalocytes PT (9.9-11.8) Seconds INR (0.93-1.08) Fibrinogen (187-400) mg/dL Sodium (132-148) mmol/L Potassium (3.6-5.0) mmol/L Chloride (98-107) mmol/L Carbon Dioxide (21-33) mmol/L Anion Gap (10-20) BUN (7-21) mg/dL Creatinine (0.5-1.4) mg/dL Est GFR ( Amer) Est GFR (Non-Af Amer) POC Glucose (mg/dL) 148 H 183 H (65-110) mg/dL Random Glucose (70-110) mg/dL Calcium (8.4-10.5) mg/dL Phosphorus (2.5-4.5) mg/dL Magnesium (1.7-2.2) mg/dL Total Bilirubin (0.2-1.3) mg/dL AST (14-36) U/L ALT (7-56) U/L Alkaline Phosphatase (38-126) U/L Total Protein (5.8-8.3) g/dL Albumin (3.0-4.8) g/dL Globulin gm/dL Albumin/Globulin Ratio (1.1-1.8) Crossmatch See Detail Laboratory Results - last 24 hr 11/19/16 11/21/16 11/21/16 10:05 00:37 07:47 WBC RBC Hgb Hct MCV MCH MCHC RDW Plt Count Manual Plt Count Baso % (Auto) Baso # Corrected WBC (Man) Neutrophils % (Manual) Lymphocytes % (Manual) Monocytes % (Manual) Eosinophils % (Manual) Basophils % (Manual) Myelocytes % Nucleated RBC % Platelet Evaluation Poikilocytosis (manual Sickle Cells Ovalocytes PT INR Fibrinogen Sodium Potassium Chloride Carbon Dioxide Anion Gap BUN Creatinine Est GFR ( Amer) Est GFR (Non-Af Amer) POC Glucose (mg/dL) 183 H 148 H Random Glucose Calcium Phosphorus Magnesium Total Bilirubin AST ALT Alkaline Phosphatase Total Protein Albumin Globulin Albumin/Globulin Ratio Crossmatch See Detail 11/21/16 11/21/16 11/21/16 11:07 16:24 23:39 WBC RBC Hgb Hct MCV MCH MCHC RDW Plt Count Manual Plt Count Baso % (Auto) Baso # Corrected WBC (Man) Neutrophils % (Manual) Lymphocytes % (Manual) Monocytes % (Manual) Eosinophils % (Manual) Basophils % (Manual) Myelocytes % Nucleated RBC % Platelet Evaluation Poikilocytosis (manual Sickle Cells Ovalocytes PT INR Fibrinogen Sodium Potassium Chloride Carbon Dioxide Anion Gap BUN Creatinine Est GFR ( Amer) Est GFR (Non-Af Amer) POC Glucose (mg/dL) 154 H 138 H 144 H Random Glucose Calcium Phosphorus Magnesium Total Bilirubin AST ALT Alkaline Phosphatase Total Protein Albumin Globulin Albumin/Globulin Ratio Crossmatch 11/22/16 11/22/16 11/22/16 05:48 06:10 06:10 WBC 36.5 H* D RBC 2.50 L Hgb 7.6 L Hct 20.5 L* MCV 82.0 MCH 30.4 MCHC 37.1 H RDW 16.3 H Plt Count 18 L* Manual Plt Count Baso % (Auto) 0.4 Baso # 0.16 Corrected WBC (Man) 5.7 Neutrophils % (Manual) 72 H Lymphocytes % (Manual) 17 L Monocytes % (Manual) 7 H Eosinophils % (Manual) 0 Basophils % (Manual) 0 Myelocytes % 4 Nucleated RBC % 540 Platelet Evaluation Low Poikilocytosis (manual Slight Sickle Cells Slight Ovalocytes Slight PT 21.1 H INR 1.95 H Fibrinogen 120.0 L Sodium Potassium Chloride Carbon Dioxide Anion Gap BUN Creatinine Est GFR ( Amer) Est GFR (Non-Af Amer) POC Glucose (mg/dL) 97 Random Glucose Calcium Phosphorus Magnesium Total Bilirubin AST ALT Alkaline Phosphatase Total Protein Albumin Globulin Albumin/Globulin Ratio Crossmatch 11/22/16 11/22/16 11/22/16 06:10 07:24 11:33 WBC RBC Hgb Hct MCV MCH MCHC RDW Plt Count Manual Plt Count 18 L* Baso % (Auto) Baso # Corrected WBC (Man) Neutrophils % (Manual) Lymphocytes % (Manual) Monocytes % (Manual) Eosinophils % (Manual) Basophils % (Manual) Myelocytes % Nucleated RBC % Platelet Evaluation Poikilocytosis (manual Sickle Cells Ovalocytes PT INR Fibrinogen Sodium 135 Potassium 3.6 Chloride 94 L Carbon Dioxide 27 Anion Gap 18 BUN 46 H Creatinine 1.9 H Est GFR ( Amer) 36 Est GFR (Non-Af Amer) 30 POC Glucose (mg/dL) 146 H Random Glucose 118 H Calcium 6.9 L* Phosphorus 5.6 H Magnesium 2.0 Total Bilirubin 19.9 H* AST 693 H ALT 153 H Alkaline Phosphatase 594 H D Total Protein 5.6 L Albumin 2.6 L Globulin 3.0 Albumin/Globulin Ratio 0.9 L Crossmatch Critical Care Progress Note - Nutrition Nutrition: Nutrition Category Date Time Status NPO Diet [DIET] Diets 11/18/16 Dinner Ordered Attending/Attestation - Attestation I have personally seen and examined this patient.: Yes I have fully participated in the care of the patient.: Yes I have reviewed all pertinent clinical information: Yes Notes (Text): 11/22/16 18:13 36 y/o F w/ SC disease w/ MODS S/P Exchange transfusion and on HD currently . Extubated with mental status improved from earlier. Tight distended abdomen noted, ascites and or bowel edema. Increased bladder pressure noted,surgery team aware. Thrombocytopenia and borderline DIC. Cryo and platelets given. Hemo/onc and Nephrology also following closely. Empiric abx on board for acute chest syndrome and possible sepsis. Reduced EF% ad Liver cirrhosis. Not a tx candidate per [facility] and [facility]. Hepatology team signed off today. Poor prognosis, palliative care following. cc time 55 min
--- NOTE | 2016-11-22 13:04 | CT ---
PROCEDURE: CT HEAD WITHOUT CONTRAST. HISTORY: Hyporeactive, r/o stroke COMPARISON: 11/05/2016. TECHNIQUE: Axial computed tomography images were obtained through the head/brain without intravenous contrast. Radiation dose: Total exam DLP = 1080.79 mGy-cm. This CT exam was performed using one or more of the following dose reduction techniques: Automated exposure control, adjustment of the mA and/or kV according to patient size, and/or use of iterative reconstruction technique. FINDINGS: HEMORRHAGE: No intracranial hemorrhage. BRAIN: There is no mass, mass effect or abnormal extra-axial fluid collection. VENTRICLES: There is mild age-related global parenchymal volume loss and proportionate enlargement of the ventricles and cortical sulci. CALVARIUM: The skull base and calvarium are normal. PARANASAL SINUSES: There is a retention cyst/polyp in the right maxillary sinus, left frontal sinus and mild mucosal thickening in the right ethmoid air cells. MASTOID AIR CELLS: Predominantly clear. OTHER FINDINGS: None. IMPRESSION: No acute intracranial abnormality. If there is a persistent focal neurologic deficit and an ongoing clinical concern for acute infarction, an MRI of the brain without intravenous contrast would be a more sensitive modality for evaluation of hyperacute/acute ischemic infarction. Mild age-related global parenchymal volume loss.
[2016-11-22] MEDS: Cefepime 1gm in NS 100ml 1 GM/100 ML BAG IVPB SCH (13:24)
--- NOTE | 2016-11-22 17:30 | CP.PCM.PN ---
Subjective - Date & Time of Evaluation Date of Evaluation: 11/22/16 Time of Evaluation: 16:00 - Subjective Subjective: Infectious Disease Follow Up: November 22, 2016 36 yo AA female well known to me from previous hospitalizations at [facility] and [facility] presented with generalized pains and admitted for Sickle Cell vasoocclusive Crisis. The patient was just discharged from [facility] a few days ago. She returns with abdominal pain, nausea, and vomiting. The patient did not exhibit a fever while hospitalized so far but came very close with a 100.0 F. Patient with nausea and vomiting and diarrhea. Her blood pressure is lower than her usual. Started on Zosyn for antibiotic treatment. Sudden elevation of LFTs. Zosyn stopped on 11/14/2016. Impending liver failure ? Acute Kidney Injury. Noted Vancomycin restarted. Would continue with Cefepime for the time being. There is a leukocytosis of 42.0 although corrected WBC is 7.8. Patient appears swollen in general. AST and ALT are still increasing. Chelation therapy still in progress. Undergoing red cell exchange transfusion and plasmapheresis yesterday as well as hemodialysis. Patient remains intubated and ventilated. Extremely poor prognosis. The patient is not a candidate for liver transplant at this time as per the [facility] Liver transplant center. The patient is poorly responsive. Taken to EGD for cauterization. Supportive care. Renal dosing of antibiotics. Prognosis dismal. Patient had 2 red cell exchanges. Multiorgan failure. Extubated yesterday and off pressors. The patient can nod yes/no answers. Objective - Vital Signs/Intake and Output Vital Signs (last 24 hours): Temp Pulse Resp BP Pulse Ox 97 F L 56 L 18 106/50 L 97 11/22/16 12:00 11/22/16 15:01 11/22/16 15:01 11/22/16 15:02 11/22/16 15:01 Intake and Output: 11/22/16 11/22/16 06:59 18:59 Intake Total 576 288 Output Total 100 Balance 476 288 - Medications Medications: Current Medications Albuterol/Ipratropium (Duoneb 3 Mg/0.5 Mg (3 Ml) Ud) 3 ml IH [id number] ARLETTE Last Admin: 11/22/16 13:21 Dose: 3 ml Ergocalciferol (Drisdol 50,000 Intl Units Cap) 1 cap PO QWK [facility] Last Admin: 11/19/16 14:47 Dose: Not Given Folic Acid (Folic Acid) 1 mg PO DAILY [facility] Last Admin: 11/22/16 10:41 Dose: Not Given Furosemide (Lasix) 40 mg IVP DAILY [facility] Last Admin: 11/17/16 09:00 Dose: 40 mg Heparin Sodium (Porcine) (Heparin) 5,000 units SC Q12 ARLETTE PRN Reason: Protocol Last Admin: 11/16/16 21:44 Dose: Not Given Hydrocortisone Sodium Succinate (Solu-Cortef) 50 mg IVP Q8 [facility] Last Admin: 11/22/16 15:10 Dose: 50 mg Hydroxyurea (Hydrea) 500 mg PO DAILY [facility] Last Admin: 11/22/16 10:41 Dose: Not Given Vancomycin HCl (Vancomycin 1gm) 1 gm in 250 mls @ 167 mls/hr IVPB DAILY [facility] PRN Reason: Protocol Last Admin: 11/22/16 11:01 Dose: 167 mls/hr Cefepime HCl (Maxipime 1gm) 1 gm in 100 mls @ 100 mls/hr IVPB Q24H [facility] PRN Reason: Protocol Last Admin: 11/22/16 13:24 Dose: 100 mls/hr Dextrose (Dextrose 10% In Water) 500 mls @ 20 mls/hr IV .Q24H [facility] Last Admin: 11/21/16 18:49 Dose: 20 mls/hr Metronidazole (Flagyl) 500 mg in 100 mls @ 100 mls/hr IVPB Q8 [facility] PRN Reason: Protocol Last Admin: 11/22/16 15:16 Dose: 100 mls/hr Dobutamine HCl/Dextrose (Dobutamine/Dextrose 5% 500mg/250ml) 500 mg in 250 mls @ 5.647 mls/hr IV .Q24H PRN; Protocol; 2.5 MCG/KG/MIN PRN Reason: TITRATE PER PROTOCOL Last Admin: 11/22/16 09:11 Dose: 5.647 mls/hr Lactic Acid (Lac-Hydrin 12% Cream (140 G)) 0 ea TOP DAILY PRN PRN Reason: Wound Lactulose (Generlac) 200 gm TX Q6 [facility] Stop: 11/24/16 12:01 Last Admin: 11/22/16 12:11 Dose: Not Given Multivitamins/Minerals (Therapeutic-M Tab) 1 tab PO DAILY [facility] Last Admin: 11/22/16 10:51 Dose: Not Given Pantoprazole Sodium (Protonix Inj) 40 mg IVP Q12 [facility] Last Admin: 11/22/16 10:48 Dose: 40 mg Rifaximin (Xifaxan) 550 mg PO BID [facility] PRN Reason: Protocol Last Admin: 11/19/16 14:57 Dose: Not Given - Labs Labs: 11/22/16 06:10 11/22/16 06:10 PT 21.1 Seconds (9.9-11.8) H 11/22/16 06:10 INR 1.95 (0.93-1.08) H 11/22/16 06:10 APTT 83.0 Seconds (23.7-30.8) H* 11/19/16 10:00 - Constitutional Appears: Non-toxic, Chronically Ill - Head Exam Additional comments: +1 edema of the face. - Eye Exam Eye Exam: EOMI, PERRL Pupil Exam: NORMAL ACCOMODATION, PERRL - ENT Exam ENT Exam: Mucous Membranes Moist, Normal External Ear Exam, TM's Normal Bilaterally - Neck Exam Neck Exam: Full ROM, Normal Inspection - Respiratory Exam Respiratory Exam: Decreased Breath Sounds, NORMAL BREATHING PATTERN. absent: Rales, Rhonchi, Wheezes - Cardiovascular Exam Cardiovascular Exam: REGULAR RHYTHM, RRR, +S1, +S2 - GI/Abdominal Exam GI & Abdominal Exam: Distended, Soft, Normal Bowel Sounds. absent: Tenderness - Extremities Exam Extremities Exam: Joint Swelling, Pedal Edema - Neurological Exam Neurological Exam: Alert, Awake Additional comments: nursing states she has been able to nod yes/no answers. - Psychiatric Exam Additional comments: opens eyes. difficult to assess further. Can track people in room. Assessment and Plan - Assessment and Plan (Free Text) Assessment: 36 yo AA female with known Sickle Cell disease presenting with diarrhea and abdominal pain. Low blood pressure/borderline hypotension. Supportive care. Velarde cultures. No leukocytosis noted however. Coagulase negative staph according to FISH studies. Sudden increase in LFTs and creatinine. Continue with renal dosing of Cefepime for now. Vancomycin should be adjusted for renal function. LFT are continuing to increase. Acute Kidney Injury with creatinine of 1.9. Remains in MICU for further care. General edema of the patient. Increasing leukocytosis. If continues to increase, will consider use of meropenem. Noted that the patient's cultures are negative to date. LFTs remain severely elevated. 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 Extremely poor prognosis. Extubated today. Generalized edema. Liver Cirrhosis. Not deemed a candidate for liver transplant by [facility] Liver silt. Patient is receiving hemodialysis. Multi-organ failure. EGD done with cauterization of an ulcer during this hospitalization. Patient's prognosis remains poor. She has been extubated and is off pressor medications. Thank you for allowing me to participate in the care of the patient, we will follow with you.
--- NOTE | 2016-11-22 17:58 | CP.PCM.PN ---
<Liu Moya - Last Filed: 11/22/16 17:54> Subjective - Date & Time of Evaluation Date of Evaluation: 11/22/16 Time of Evaluation: 09:30 - Subjective Subjective: Medicine Progress note. Dr. Green Pt seen and examined at bedside. Extubated yesterday, on high flow O2. Patient has some spontaneous movements. Is not responding to verbal or tactile stimuli appropriately. No Fevers. Abd firm. Lovett in place with dark colored urine. Objective - Vital Signs/Intake and Output Vital Signs (last 24 hours): Temp Pulse Resp BP Pulse Ox 97 F L 99 H 20 79/45 L 89 L 11/22/16 16:00 11/22/16 17:00 11/22/16 17:00 11/22/16 16:59 11/22/16 17:00 Intake and Output: 11/22/16 11/22/16 06:59 18:59 Intake Total 576 288 Output Total 100 130 Balance 476 158 - Medications Medications: Current Medications Albuterol/Ipratropium (Duoneb 3 Mg/0.5 Mg (3 Ml) Ud) 3 ml IH [id number] [facility] Last Admin: 11/22/16 13:21 Dose: 3 ml Ergocalciferol (Drisdol 50,000 Intl Units Cap) 1 cap PO QWK [facility] Last Admin: 11/19/16 14:47 Dose: Not Given Folic Acid (Folic Acid) 1 mg PO DAILY [facility] Last Admin: 11/22/16 10:41 Dose: Not Given Furosemide (Lasix) 40 mg IVP DAILY [facility] Last Admin: 11/17/16 09:00 Dose: 40 mg Heparin Sodium (Porcine) (Heparin) 5,000 units SC Q12 [facility] PRN Reason: Protocol Last Admin: 11/16/16 21:44 Dose: Not Given Hydrocortisone Sodium Succinate (Solu-Cortef) 50 mg IVP Q8 [facility] Last Admin: 11/22/16 15:10 Dose: 50 mg Hydroxyurea (Hydrea) 500 mg PO DAILY [facility] Last Admin: 11/22/16 10:41 Dose: Not Given Vancomycin HCl (Vancomycin 1gm) 1 gm in 250 mls @ 167 mls/hr IVPB DAILY [facility] PRN Reason: Protocol Last Admin: 11/22/16 11:01 Dose: 167 mls/hr Cefepime HCl (Maxipime 1gm) 1 gm in 100 mls @ 100 mls/hr IVPB Q24H [facility] PRN Reason: Protocol Last Admin: 11/22/16 13:24 Dose: 100 mls/hr Dextrose (Dextrose 10% In Water) 500 mls @ 20 mls/hr IV .Q24H [facility] Last Admin: 11/21/16 18:49 Dose: 20 mls/hr Metronidazole (Flagyl) 500 mg in 100 mls @ 100 mls/hr IVPB Q8 [facility] PRN Reason: Protocol Last Admin: 11/22/16 15:16 Dose: 100 mls/hr Dobutamine HCl/Dextrose (Dobutamine/Dextrose 5% 500mg/250ml) 500 mg in 250 mls @ 5.647 mls/hr IV .Q24H PRN; Protocol; 2.5 MCG/KG/MIN PRN Reason: TITRATE PER PROTOCOL Last Admin: 11/22/16 09:11 Dose: 5.647 mls/hr Lactic Acid (Lac-Hydrin 12% Cream (140 G)) 0 ea TOP DAILY PRN PRN Reason: Wound Lactulose (Generlac) 200 gm MT Q6 [facility] Stop: 11/24/16 12:01 Last Admin: 11/22/16 17:25 Dose: Not Given Multivitamins/Minerals (Therapeutic-M Tab) 1 tab PO DAILY [facility] Last Admin: 11/22/16 10:51 Dose: Not Given Pantoprazole Sodium (Protonix Inj) 40 mg IVP Q12 [facility] Last Admin: 11/22/16 10:48 Dose: 40 mg Rifaximin (Xifaxan) 550 mg PO BID [facility] PRN Reason: Protocol Last Admin: 11/19/16 14:57 Dose: Not Given - Labs Labs: 11/22/16 06:10 11/22/16 06:10 PT 21.1 Seconds (9.9-11.8) H 11/22/16 06:10 INR 1.95 (0.93-1.08) H 11/22/16 06:10 APTT 83.0 Seconds (23.7-30.8) H* 11/19/16 10:00 - Constitutional Appears: Older Than Stated Age - Head Exam Head Exam: ATRAUMATIC, NORMAL INSPECTION, NORMOCEPHALIC Additional comments: high flow O2 in place - Eye Exam Additional comments: does not exhibit spontaneous eye movements to verbal cues - Respiratory Exam Respiratory Exam: Rhonchi (diffuse), Wheezes (diffuse) Additional comments: on high flow O2 - GI/Abdominal Exam GI & Abdominal Exam: Firm Additional comments: Abd with no rebound or guarding. It is more firm compared to yesterday - Exam Additional comments: lovett in place with dark colored urine noted - Neurological Exam Additional comments: does not respond with purposeful movements - Skin Skin Exam: Dry, Intact, Normal Color, Warm Assessment and Plan - Assessment and Plan (Free Text) Assessment: 36 y/o F with PMH of Sickle cell disease, Bipolar disorder, Cerebral palsy, Asthma, CHF here for likely vaso-occlusive crisis complicated by liver failure. Hospital course complicated by thrombocytopenia, coagulopathy. Pt subsequently found to have MELITON. 1. Likely Vaso-occlusive crisis secondary to sickle cell disease Monitor Hb closely will transfuse if Hb <7 Continue Hydroxyurea Heme following, awaiting recs transfusion exchange as per Heme and Nephro 2. Liver disease Patient not a candidate for liver transplantation at this time Transaminitis, elevated Thrombocytopenia worsening Hyperbilirubinemia elevated and stable GI following 3. Upper GI bleed likely secondary to OG trauma S/p bedside EGD on 11/19 Bleed cauterized and injected Continue to monitor Hb Protonix 40 q12 daily 4. Possible Colitis CT - evidence of possible colitis C.Diff antigen positive, toxin negative repeat stool cdiff Surgery following Low suspicion for colitis Patient is not a candidate for surgery 5. MELITON Nephro following Continues to be oliguric No dialysis at this time 6. CHF Continue Lasix 40 mg daily on Dobutamine drip EF - 39.7% in June 2016 Cardiology following 7. Respiratory failure Extubated on 11/21, on High flow O2 Continue breathing treatments 8. Leukocytosis Blood cultures negative Urine cultures negative ID following Continue IV Abx 9. Electrolyte abnormalities Replete as needed 10. PPx Protonix SCDs Dispo: f/u Palliative care recs patient with very poor prognosis encourage family involvement in decision making Discussed case with Dr. Norma Moya PGY1 <Marco Green - Last Filed: 11/22/16 21:14> Objective - Vital Signs/Intake and Output Vital Signs (last 24 hours): Temp Pulse Resp BP Pulse Ox 97 F L 53 L 12 82/42 L 98 11/22/16 16:00 11/22/16 18:02 11/22/16 18:02 11/22/16 18:02 11/22/16 18:02 Intake and Output: 11/22/16 11/23/16 18:59 06:59 Intake Total 288 Output Total 130 Balance 158 - Medications Medications: Current Medications Albuterol/Ipratropium (Duoneb 3 Mg/0.5 Mg (3 Ml) Ud) 3 ml IH [id number] [facility] Last Admin: 11/22/16 19:41 Dose: 3 ml Ergocalciferol (Drisdol 50,000 Intl Units Cap) 1 cap PO QWK [facility] Last Admin: 11/19/16 14:47 Dose: Not Given Folic Acid (Folic Acid) 1 mg PO DAILY [facility] Last Admin: 11/22/16 10:41 Dose: Not Given Furosemide (Lasix) 40 mg IVP DAILY [facility] Last Admin: 11/17/16 09:00 Dose: 40 mg Heparin Sodium (Porcine) (Heparin) 5,000 units SC Q12 [facility] PRN Reason: Protocol Last Admin: 11/16/16 21:44 Dose: Not Given Hydrocortisone Sodium Succinate (Solu-Cortef) 50 mg IVP Q8 [facility] Last Admin: 11/22/16 15:10 Dose: 50 mg Hydroxyurea (Hydrea) 500 mg PO DAILY [facility] Last Admin: 11/22/16 10:41 Dose: Not Given Vancomycin HCl (Vancomycin 1gm) 1 gm in 250 mls @ 167 mls/hr IVPB DAILY [facility] PRN Reason: Protocol Last Admin: 11/22/16 11:01 Dose: 167 mls/hr Cefepime HCl (Maxipime 1gm) 1 gm in 100 mls @ 100 mls/hr IVPB Q24H [facility] PRN Reason: Protocol Last Admin: 11/22/16 13:24 Dose: 100 mls/hr Dextrose (Dextrose 10% In Water) 500 mls @ 20 mls/hr IV .Q24H [facility] Last Admin: 11/22/16 18:37 Dose: 20 mls/hr Metronidazole (Flagyl) 500 mg in 100 mls @ 100 mls/hr IVPB Q8 [facility] PRN Reason: Protocol Last Admin: 11/22/16 15:16 Dose: 100 mls/hr Dobutamine HCl/Dextrose (Dobutamine/Dextrose 5% 500mg/250ml) 500 mg in 250 mls @ 5.647 mls/hr IV .Q24H PRN; Protocol; 2.5 MCG/KG/MIN PRN Reason: TITRATE PER PROTOCOL Last Admin: 11/22/16 09:11 Dose: 5.647 mls/hr Lactic Acid (Lac-Hydrin 12% Cream (140 G)) 0 ea TOP DAILY PRN PRN Reason: Wound Lactulose (Generlac) 200 gm MT Q6 [facility] Stop: 11/24/16 12:01 Last Admin: 11/22/16 17:25 Dose: Not Given Multivitamins/Minerals (Therapeutic-M Tab) 1 tab PO DAILY [facility] Last Admin: 11/22/16 10:51 Dose: Not Given Pantoprazole Sodium (Protonix Inj) 40 mg IVP Q12 [facility] Last Admin: 11/22/16 10:48 Dose: 40 mg Rifaximin (Xifaxan) 550 mg PO BID [facility] PRN Reason: Protocol Last Admin: 11/19/16 14:57 Dose: Not Given - Labs Labs: 11/22/16 06:10 11/22/16 06:10 PT 21.1 Seconds (9.9-11.8) H 11/22/16 06:10 INR 1.95 (0.93-1.08) H 11/22/16 06:10 APTT 83.0 Seconds (23.7-30.8) H* 11/19/16 10:00 Attending/Attestation - Attestation I have personally seen and examined this patient.: Yes I have fully participated in the care of the patient.: Yes I have reviewed all pertinent clinical information, including history, physical exam and plan: Yes Notes (Text): 11/22/16 21:13 36 year old female with past medical history of sickle cell disease/anemia, bipolar disorder, CHF and asthma who presented with sickle cell crisis. Hospital course complicated with respiratory distress s/p intubation, shock on vasopressor support and GB s/p EGD with cauterization. Patient is s/p extubation. Currently on high flow oxygen. CT head was ordered. She is being followed by GI, ID and nephrology. Continue with antibiotics as per ID. She is not a candidate for liver transplant per [facility]. Plasmapheresis, UF and red cell exchange as per hematology and nephrology. Prognosis is guarded. Palliative care evaluation was appreciated. Marco Green MD Hospitalist.
--- NOTE | 2016-11-22 21:14 | US ---
HISTORY: Leg pain and swelling. Evaluate for DVT PHYSICIAN(S): Noé Whalen MD. TECHNIQUE: Duplex sonography and color-flow Doppler with graded compression were used to evaluate the deep venous systems of both lower extremities. The exam is very limited by edema and body habitus FINDINGS: The visualized deep venous systems of both lower extremities are sonographically normal and compressible. Normal wave forms and augmentation are seen. There is no sonographic evidence for deep venous thrombosis in the visualized segments of both lower extremities. IMPRESSION: No sonographic evidence for deep venous thrombosis in the visualized segments of both lower extremities. Very limited study.
[2016-11-23] MEDS: Lactulose 10 gm/15 ml (Rectal Use) PR SCH ×3 (01:00→17:14)
[2016-11-23] MEDS: Albuterol-Ipratrop 3 mg / 0.5 (3 ml) UD IH SCH ×4 (01:46→19:40)
[2016-11-23 05:44] LABS: ARTERIAL BLOOD GAS HCO3 24.9 mmol/L (21-28); ARTERIAL BLOOD GAS PH 7.46 (7.35-7.45)
[2016-11-23 05:53] LABS: ALB/GLOB RATIO 0.9 (1.1-1.8); BILIRUBIN,DIRECT 18.7 mg/dL (0.0-0.4); CALCIUM 7.1 mg/dL (8.4-10.5); MAGNESIUM 1.9 mg/dL (1.7-2.2); PHOSPHOROUS 5.5 mg/dL (2.5-4.5); POTASSIUM 3.5 mmol/L (3.6-5.0); TOTAL PROTEIN 5.7 g/dL (5.8-8.3)
[2016-11-23] MEDS: metroNIDAZOLE IV 500 mg/100 ml 500 MG/100 ML BAG IVPB SCH ×3 (06:09→22:27)
[2016-11-23 06:13] LABS: MEAN CELL VOLUME 83.7 fl (80.0-105.0); MEAN CORPUSCULAR HEMOGLOBIN 30.7 pg (25.0-35.0); MEAN CORPUSCULAR HGB CONC 36.7 g/dl (31.0-37.0); MEAN PLATELET VOLUME 9.3 fl (7.0-11.0); PLATELET COUNT 59 10^3/uL (120.0-450.0); RED CELL DISTRIBUTION WIDTH 16.7 % (11.5-14.5)
[2016-11-23 06:14] LABS: BILIRUBIN,TOTAL 19.8 mg/dL (0.2-1.3)
[2016-11-23 06:42] LABS: WHITE BLOOD COUNT 54.2 10^3/ul (4.5-11.0)
[2016-11-23 06:55] LABS: FIBRINOGEN 149.4 mg/dL (187-400)
--- NOTE | 2016-11-23 07:49 | CP.PCM.PN ---
<Liu Moya - Last Filed: 11/23/16 11:03> Subjective - Date & Time of Evaluation Date of Evaluation: 11/23/16 Time of Evaluation: 07:45 - Subjective Subjective: Medicine Progress note. Dr. Green Pt seen and examined at bedside. No acute events overnight. Diaz in place, UOP - 115/12hrs dark colored output. No F/C. Patient is more responsive today. She responds to questions with minimal head movement, nonverbal. Does exhibit spontaneous eye movement. Does follow simple commands. Denies any pain. Objective - Vital Signs/Intake and Output Vital Signs (last 24 hours): Temp Pulse Resp BP Pulse Ox 97.9 F 98 H 17 100/65 95 11/23/16 04:00 11/23/16 06:50 11/23/16 06:50 11/23/16 06:50 11/23/16 06:50 Intake and Output: 11/23/16 11/23/16 06:59 18:59 Intake Total 434 Output Total 150 Balance 284 - Medications Medications: Current Medications Albuterol/Ipratropium (Duoneb 3 Mg/0.5 Mg (3 Ml) Ud) 3 ml IH [id number] [facility] Last Admin: 11/23/16 01:46 Dose: 3 ml Ergocalciferol (Drisdol 50,000 Intl Units Cap) 1 cap PO QWK [facility] Last Admin: 11/19/16 14:47 Dose: Not Given Folic Acid (Folic Acid) 1 mg PO DAILY [facility] Last Admin: 11/22/16 10:41 Dose: Not Given Furosemide (Lasix) 40 mg IVP DAILY [facility] Last Admin: 11/17/16 09:00 Dose: 40 mg Heparin Sodium (Porcine) (Heparin) 5,000 units SC Q12 [facility] PRN Reason: Protocol Last Admin: 11/16/16 21:44 Dose: Not Given Hydrocortisone Sodium Succinate (Solu-Cortef) 50 mg IVP Q8 [facility] Last Admin: 11/23/16 06:12 Dose: 50 mg Hydroxyurea (Hydrea) 500 mg PO DAILY [facility] Last Admin: 11/22/16 10:41 Dose: Not Given Vancomycin HCl (Vancomycin 1gm) 1 gm in 250 mls @ 167 mls/hr IVPB DAILY [facility] PRN Reason: Protocol Last Admin: 11/22/16 11:01 Dose: 167 mls/hr Cefepime HCl (Maxipime 1gm) 1 gm in 100 mls @ 100 mls/hr IVPB Q24H [facility] PRN Reason: Protocol Last Admin: 11/22/16 13:24 Dose: 100 mls/hr Dextrose (Dextrose 10% In Water) 500 mls @ 20 mls/hr IV .Q24H [facility] Last Admin: 11/22/16 18:37 Dose: 20 mls/hr Metronidazole (Flagyl) 500 mg in 100 mls @ 100 mls/hr IVPB Q8 [facility] PRN Reason: Protocol Last Admin: 11/23/16 06:09 Dose: 100 mls/hr Dobutamine HCl/Dextrose (Dobutamine/Dextrose 5% 500mg/250ml) 500 mg in 250 mls @ 5.647 mls/hr IV .Q24H PRN; Protocol; 2.5 MCG/KG/MIN PRN Reason: TITRATE PER PROTOCOL Last Admin: 11/22/16 09:11 Dose: 5.647 mls/hr Lactic Acid (Lac-Hydrin 12% Cream (140 G)) 0 ea TOP DAILY PRN PRN Reason: Wound Lactulose (Generlac) 200 gm NM Q6 [facility] Stop: 11/24/16 12:01 Last Admin: 11/23/16 06:10 Dose: 200 gm Multivitamins/Minerals (Therapeutic-M Tab) 1 tab PO DAILY [facility] Last Admin: 11/22/16 10:51 Dose: Not Given Pantoprazole Sodium (Protonix Inj) 40 mg IVP Q12 [facility] Last Admin: 11/22/16 21:32 Dose: 40 mg Rifaximin (Xifaxan) 550 mg PO BID [facility] PRN Reason: Protocol Last Admin: 11/19/16 14:57 Dose: Not Given - Labs Labs: 11/23/16 05:10 11/23/16 05:10 PT 21.6 Seconds (9.9-11.8) H 11/23/16 05:10 INR 2.00 (0.93-1.08) H 11/23/16 05:10 APTT 83.0 Seconds (23.7-30.8) H* 11/19/16 10:00 - Constitutional Appears: Toxic, Older Than Stated Age - Head Exam Head Exam: ATRAUMATIC, NORMAL INSPECTION, NORMOCEPHALIC - Eye Exam Eye Exam: EOMI, Scleral icterus Additional comments: severe scleral icterus. - ENT Exam ENT Exam: Mucous Membranes Moist Additional comments: on high flow O2 - Respiratory Exam Respiratory Exam: Rales, Rhonchi, Wheezes - Cardiovascular Exam Cardiovascular Exam: RRR, +S1, +S2. absent: JVD - GI/Abdominal Exam GI & Abdominal Exam: Firm. absent: Distended, Guarding, Rigid, Tenderness, Rebound - Extremities Exam Additional comments: Bilateral pretibial edema. - Neurological Exam Neurological Exam: Awake Additional comments: does exhibit tracking. Responds with minimal head nodding. Does not respond verbally. - Skin Skin Exam: Warm Additional comments: Diffuse jaundice Assessment and Plan - Assessment and Plan (Free Text) Assessment: 36 y/o F with PMH of Sickle cell disease, Bipolar disorder, Cerebral palsy, Asthma, CHF here for likely vaso-occlusive crisis complicated by progressive liver failure, intrahepatic cholestasis. Hospital course complicated by thrombocytopenia, coagulopathy, leukocytosis, MELITON, hepatic encephalopathy. On Dobutamine support. 1. Likely Vaso-occlusive crisis secondary to sickle cell disease Monitor Hb closely will transfuse if Hb <7 Continue Hydroxyurea Heme following, awaiting recs transfusion exchange as per Heme and Nephro 2. Liver disease Patient not a candidate for liver transplantation at this time as per discussion with [facility] and [facility]. Transaminitis Thrombocytopenia Hyperbilirubinemia elevated and stable. Intrahepatic Hepatology signed off prognosis poor 3. Upper GI bleed likely secondary to OG trauma S/p bedside EGD on 11/19 Bleed cauterized and injected Continue to monitor Hb, stable Protonix 40 q12 daily 4. Possible Colitis CT - evidence of possible colitis C.Diff antigen positive, toxin negative repeat stool cdiff Surgery following Low suspicion for colitis Patient is not a candidate for surgery 5. MELITON Nephro following Continues to be oliguric Dialysis recs as per nephro Bladder pressure increased yesterday, not a surgical candidate. 6. CHF Continue Lasix 40 mg daily on Dobutamine drip EF - 39.7% in June 2016 Cardiology following 7. Respiratory failure Extubated on 11/21, on High flow O2 Continue breathing treatments 8. Leukocytosis Blood cultures negative Urine cultures negative CDiff antigen positive, toxin negative awaiting repeat stool cdiff ID following Continue IV Abx 9. Electrolyte abnormalities Replete as needed 10. PPx Protonix SCDs Dispo: f/u Swallow recs. Consider TPN if cannot tolerate PO. f/u Palliative care recs patient with very poor prognosis encourage family involvement in decision making Discussed case with Dr. Norma Moya PGY1 <Marco Green - Last Filed: 11/23/16 17:13> Objective - Vital Signs/Intake and Output Vital Signs (last 24 hours): Temp Pulse Resp BP Pulse Ox 97.7 F 72 18 116/53 L 100 11/23/16 12:00 11/23/16 14:32 11/23/16 14:32 11/23/16 14:31 11/23/16 14:30 Intake and Output: 11/23/16 11/23/16 06:59 18:59 Intake Total 434 Output Total 150 Balance 284 - Medications Medications: Current Medications Albuterol/Ipratropium (Duoneb 3 Mg/0.5 Mg (3 Ml) Ud) 3 ml IH [id number] [facility] Last Admin: 11/23/16 13:25 Dose: 3 ml Ergocalciferol (Drisdol 50,000 Intl Units Cap) 1 cap PO QWK [facility] Last Admin: 11/19/16 14:47 Dose: Not Given Folic Acid (Folic Acid) 1 mg PO DAILY [facility] Last Admin: 11/22/16 10:41 Dose: Not Given Furosemide (Lasix) 40 mg IVP DAILY [facility] Last Admin: 11/17/16 09:00 Dose: 40 mg Heparin Sodium (Porcine) (Heparin) 5,000 units SC Q12 [facility] PRN Reason: Protocol Last Admin: 11/16/16 21:44 Dose: Not Given Hydrocortisone Sodium Succinate (Solu-Cortef) 50 mg IVP Q8 [facility] Last Admin: 11/23/16 15:24 Dose: 50 mg Hydroxyurea (Hydrea) 500 mg PO DAILY [facility] Last Admin: 11/22/16 10:41 Dose: Not Given Vancomycin HCl (Vancomycin 1gm) 1 gm in 250 mls @ 167 mls/hr IVPB DAILY [facility] PRN Reason: Protocol Last Admin: 11/23/16 09:27 Dose: 167 mls/hr Cefepime HCl (Maxipime 1gm) 1 gm in 100 mls @ 100 mls/hr IVPB Q24H [facility] PRN Reason: Protocol Last Admin: 11/23/16 15:24 Dose: 100 mls/hr Dextrose (Dextrose 10% In Water) 500 mls @ 20 mls/hr IV .Q24H [facility] Last Admin: 11/22/16 18:37 Dose: 20 mls/hr Metronidazole (Flagyl) 500 mg in 100 mls @ 100 mls/hr IVPB Q8 [facility] PRN Reason: Protocol Last Admin: 11/23/16 15:25 Dose: 100 mls/hr Dobutamine HCl/Dextrose (Dobutamine/Dextrose 5% 500mg/250ml) 500 mg in 250 mls @ 5.647 mls/hr IV .Q24H PRN; Protocol; 2.5 MCG/KG/MIN PRN Reason: TITRATE PER PROTOCOL Last Admin: 11/23/16 09:19 Dose: 5.647 mls/hr Lactic Acid (Lac-Hydrin 12% Cream (140 G)) 0 ea TOP DAILY PRN PRN Reason: Wound Lactulose (Generlac) 200 gm NM Q6 [facility] Stop: 11/24/16 12:01 Last Admin: 11/23/16 06:10 Dose: 200 gm Multivitamins/Minerals (Therapeutic-M Tab) 1 tab PO DAILY [facility] Last Admin: 11/22/16 10:51 Dose: Not Given Pantoprazole Sodium (Protonix Inj) 40 mg IVP Q12 [facility] Last Admin: 11/22/16 21:32 Dose: 40 mg Rifaximin (Xifaxan) 550 mg PO BID [facility] PRN Reason: Protocol Last Admin: 11/19/16 14:57 Dose: Not Given - Labs Labs: 11/23/16 05:10 11/23/16 05:10 PT 21.6 Seconds (9.9-11.8) H 11/23/16 05:10 INR 2.00 (0.93-1.08) H 11/23/16 05:10 APTT 83.0 Seconds (23.7-30.8) H* 11/19/16 10:00 Attending/Attestation - Attestation I have personally seen and examined this patient.: Yes I have fully participated in the care of the patient.: Yes I have reviewed all pertinent clinical information, including history, physical exam and plan: Yes Notes (Text): 11/23/16 17:10 36 year old female with past medical history of sickle cell disease/anemia, bipolar disorder, CHF and asthma who presented with sickle cell crisis. Hospital course complicated with respiratory distress s/p intubation, shock on vasopressor support and GB s/p EGD with cauterization. Patient is s/p extubation. Currently on high flow oxygen. Her mental status has improved today. She is being followed by GI, ID and nephrology. CDif Antigen +. Continue with antibiotics as per ID. She is not a candidate for liver transplant per [facility]. Plasmapheresis, UF and red cell exchange as per hematology and nephrology. Will replete and repeat lytes. Prognosis is guarded. Palliative care evaluation was appreciated. Marco Green MD Hospitalist.
--- NOTE | 2016-11-23 08:24 | CP.CCUPN ---
<Alejo Felix - Last Filed: 11/23/16 12:41> CCU Subjective - Physician Review Subjective (Free Text): 11/23/16 08:06 Patient s/e at bedside in ICU. Patient remains off sedation and with HFNC O2. Patient is able to open eyes and track across room, she is unable to follow commands. According to report patient is more alert and awake over past 24 hours. Patient is non-verbal with grunting and moaning to pain. Overnight patient was given soft restraints due to her pulling at her lines. CCU Objective - Vital Signs / Intake & Output Vital Signs (Last 4 hours): Vital Signs Pulse Resp BP Pulse Ox 11/23/16 06:50 98 H 17 100/65 95 11/23/16 06:45 93 H 15 11/23/16 06:00 90 13 99/50 L 99 11/23/16 05:30 87 13 99/51 L 98 11/23/16 05:00 89 13 103/71 99 11/23/16 04:30 88 14 95/54 L 99 Intake and Output (Last 8hrs): Intake & Output 11/22/16 11/23/16 11/23/16 22:59 06:59 14:59 Intake Total 434 Output Total 130 150 Balance -130 284 Weight 183 lb 7 oz Intake: IV 234 D10W 110 Left Femoral 124 Other 200 Output: Urine 130 150 2-way Urethral 130 150 Other: # Bowel Movements 3 3 - Physical Exam Head: Positive for: Atraumatic, Normocephalic. Negative for: Ecchymosis, Abrasion, Laceration Pupils: Positive for: PERRL. Negative for: Non-Reactive Extroacular Muscles: Positive for: Other (not following commands but atempting to avoid direct light challenge for PERRL assessment, able to track across room , PERRL ) Conjunctiva: Positive for: Icteric. Negative for: Normal, Injected Mouth: Negative for: Moist Mucous Membranes, Normal Tounge (small lac on underside of tongue), Normal Teeth (poor dentition) Pharnyx: Positive for: Other (no gross bleeding/oozing sites). Negative for: ERYTHEMA, EXUDATE Nose (External): Positive for: Atraumatic, Other (no expistaxis or oozing/ crusting around the nares). Negative for: Abrasion, Contusion, Laceration Nose (Internal): Negative for: Epistaxis Neck: Positive for: Normal Range of Motion (rotational ROM intact, spontaneously moving head back and forth in bed), Trachea Midline. Negative for : JVD Respiratory/Chest: Positive for: Good Air Exchange, Rhonchi, Other (R port in place- clean and dry, covered with bandaging; wearing High-flow nasal canula and satting well). Negative for: Clear to Auscultation (Mild ronchi in all haider, most prominent at expiration), Respiratory Distress, Accessory Muscle Use, Wheezes, Decreased Breath Sounds, Rales, Retracting Cardiovascular: Positive for: Normal S1, S2, Tachycardic (Rapid rate, regular rhythm). Negative for: Regular Rate and Rhythm, Murmurs, Irregular Rhythm, Bradycardic Abdomen: Positive for: Distention (increased firmness/distention,). Negative for: Tenderness, Normal Bowel Sounds (decreased and distant bowel sounds), Peritoneal Signs, Rebound, Guarding, Hernias Back: Positive for: Normal Inspection Upper Extremity: Positive for: Edema (Moderated edematous in bilateral UE, +2 pitting edema extending from hands to mid-humerus), Swelling, Temperature Abnormalties (mild coolness to palpation at bilateral hands). Negative for: Normal Inspection, Cyanosis, NORMAL PULSES (faintly palpable radials B/L ( possibly 2/2 edema) but clearly ausculated radial pulse with Duplex) Lower Extremity: Positive for: Edema (+2-3 pitting edema in bilateral LE extending from feet to mid-thigh), Temperature Abnormalties (mild coolness to palpation at bilateral feet). Negative for: Normal Inspection (Left groin with HD TLC in place- dressing with saturated sanginous strike through, site continues to ooze), NORMAL PULSES (unable to palpate bilateral dorsalis pedis, likely 2/2 edema, but clearly demonstrated with bedside doppler), Cyanosis, Erythema Neurological: Positive for: Other (bilateral Plantar reflexes intact, some spontaneous eye openings). Negative for: GCS=15 (score of 10 (E4 V2 M4)), CN II -XII Intact, Speech Normal, Motor Func Grossly Intact Skin: Positive for: Warm (except as documented in extremities exam), Dry, Normal Color. Negative for: Rashes Psychiatric: Positive for: Other (unable to assess, non-verbal, not following most commands) - Medications Active Medications: Active Medications Generic Name Dose Route Start Last Admin Trade Name Raghav PRN Reason Stop Dose Admin Albuterol/Ipratropium 3 ml 11/16/16 14:00 11/23/16 01:46 Duoneb 3 Mg/0.5 Mg (3 Ml) Ud IH 3 ml [id number] ARLETTE Administration Ergocalciferol 1 cap 11/12/16 10:00 11/19/16 14:47 Drisdol 50,000 Intl Units Cap PO Not Given QWK ARLETTE Folic Acid 1 mg 11/12/16 10:00 11/22/16 10:41 Folic Acid PO Not Given DAILY ARLETTE Furosemide 40 mg 11/16/16 10:00 11/17/16 09:00 Lasix IVP 40 mg DAILY ARLETTE Administration Heparin Sodium (Porcine) 5,000 units 11/13/16 01:15 11/16/16 21:44 Heparin SC Not Given Q12 ARLETTE Protocol Hydrocortisone Sodium Succinate 50 mg 11/19/16 07:15 11/23/16 06:12 Solu-Cortef IVP 50 mg Q8 ARLETTE Administration Hydroxyurea 500 mg 11/12/16 10:00 11/22/16 10:41 Hydrea PO Not Given DAILY ARLETTE Vancomycin HCl 1 gm in 250 mls @ 167 mls/hr 11/15/16 11:30 11/22/16 11:01 Vancomycin 1gm IVPB 167 mls/hr DAILY ARLETTE Administration Protocol Cefepime HCl 1 gm in 100 mls @ 100 mls/hr 11/15/16 13:15 11/22/16 13:24 Maxipime 1gm IVPB 100 mls/hr Q24H ARLETTE Administration Protocol Dextrose 500 mls @ 20 mls/hr 11/16/16 18:45 11/22/16 18:37 Dextrose 10% In Water IV 20 mls/hr .Q24H ARLETTE Administration Metronidazole 500 mg in 100 mls @ 100 mls/hr 11/19/16 19:15 11/23/16 06:09 Flagyl IVPB 100 mls/hr Q8 ARLETTE Administration Protocol Dobutamine HCl/Dextrose 500 mg in 250 mls @ 5.647 mls/hr 11/20/16 07:32 11/22 09:11 Dobutamine/Dextrose 5% 500mg/250ml IV 5.647 mls/hr .Q24H PRN Administration TITRATE PER PROTOCOL Protocol 2.5 MCG/KG/MIN Lactic Acid 0 ea 11/13/16 09:22 Lac-Hydrin 12% Cream (140 G) TOP DAILY PRN Wound Lactulose 200 gm 11/19/16 12:00 11/23/16 06:10 Generlac MO 11/24/16 12:01 200 gm Q6 ARLETTE Administration Multivitamins/Minerals 1 tab 11/12/16 11:30 11/22/16 10:51 Therapeutic-M Tab PO Not Given DAILY ARLETTE Pantoprazole Sodium 40 mg 11/19/16 22:00 11/22/16 21:32 Protonix Inj IVP 40 mg Q12 ARLETTE Administration Rifaximin 550 mg 11/18/16 10:15 11/19/16 14:57 Xifaxan PO Not Given BID ARLETTE Protocol - Patient Studies Lab Studies: Lab Studies 11/23/16 11/23/16 11/23/16 Range/Units 06:24 05:25 05:10 WBC (4.5-11.0) 10^3/ul RBC (3.5-6.1) 10^6/uL Hgb (12.0-16.0) g/dL Hct (36.0-48.0) % MCV (80.0-105.0) fl MCH (25.0-35.0) pg MCHC (31.0-37.0) g/dl RDW (11.5-14.5) % Plt Count (120.0-450.0) 10^3/uL Manual Plt Count (120-450) K/mm3 MPV (7.0-11.0) fl Corrected WBC (Man) (4.5-11.0) K/mm3 Neutrophils % (Manual) (50.0-70.0) % Lymphocytes % (Manual) (22.0-35.0) % Monocytes % (Manual) (1.0-6.0) % Eosinophils % (Manual) (0.0-3.0) % Basophils % (Manual) (0.0-1.0) % Myelocytes % % Nucleated RBC % % Platelet Evaluation (NORMAL) Poikilocytosis (manual Sickle Cells Ovalocytes PT (9.9-11.8) Seconds INR (0.93-1.08) Fibrinogen (187-400) mg/dL pCO2 35 (35-45) mm/Hg pO2 113.0 H (80-100) mm/Hg HCO3 24.9 (21-28) mmol/L ABG pH 7.46 H (7.35-7.45) ABG Total CO2 26.0 (22-28) mmol.L ABG O2 Saturation 100.9 H (95-98) % ABG Base Excess 1.4 (-2.0-3.0) mmol/L ABG Potassium 3.6 (3.6-5.2) mmol/L Glucose 130 H (65-105) mg/dl Lactate 2.4 H (0.7-2.1) mmol/L FiO2 40.0 % Sodium 132.0 134 (132-148) mmol/L Potassium 3.5 L (3.6-5.0) mmol/L Chloride 102.0 95 L (98-107) mmol/L Carbon Dioxide 26 (21-33) mmol/L Anion Gap 17 (10-20) BUN 54 H (7-21) mg/dL Creatinine 1.9 H (0.5-1.4) mg/dL Est GFR ( Amer) 36 Est GFR (Non-Af Amer) 30 POC Glucose (mg/dL) 159 H (65-110) mg/dL Random Glucose 129 H (70-110) mg/dL Calcium 7.1 L (8.4-10.5) mg/dL Phosphorus 5.5 H (2.5-4.5) mg/dL Magnesium 1.9 (1.7-2.2) mg/dL Total Bilirubin 19.8 H* (0.2-1.3) mg/dL Direct Bilirubin 18.7 H (0.0-0.4) mg/dL AST 541 H D (14-36) U/L ALT 134 H (7-56) U/L Alkaline Phosphatase 613 H (38-126) U/L Total Protein 5.7 L (5.8-8.3) g/dL Albumin 2.7 L (3.0-4.8) g/dL Globulin 3.0 gm/dL Albumin/Globulin Ratio 0.9 L (1.1-1.8) Arterial Blood Potassium 3.6 (3.6-5.2) mmol/L Crossmatch 11/23/16 11/23/16 11/22/16 Range/Units 05:10 05:10 22:24 WBC 54.2 H* D (4.5-11.0) 10^3/ul RBC 2.51 L (3.5-6.1) 10^6/uL Hgb 7.7 L (12.0-16.0) g/dL Hct 21.0 L (36.0-48.0) % MCV 83.7 (80.0-105.0) fl MCH 30.7 (25.0-35.0) pg MCHC 36.7 (31.0-37.0) g/dl RDW 16.7 H (11.5-14.5) % Plt Count 59 L (120.0-450.0) 10^3/uL Manual Plt Count (120-450) K/mm3 MPV 9.3 (7.0-11.0) fl Corrected WBC (Man) (4.5-11.0) K/mm3 Neutrophils % (Manual) (50.0-70.0) % Lymphocytes % (Manual) (22.0-35.0) % Monocytes % (Manual) (1.0-6.0) % Eosinophils % (Manual) (0.0-3.0) % Basophils % (Manual) (0.0-1.0) % Myelocytes % % Nucleated RBC % % Platelet Evaluation (NORMAL) Poikilocytosis (manual Sickle Cells Ovalocytes PT 21.6 H (9.9-11.8) Seconds INR 2.00 H (0.93-1.08) Fibrinogen 149.4 L (187-400) mg/dL pCO2 (35-45) mm/Hg pO2 (80-100) mm/Hg HCO3 (21-28) mmol/L ABG pH (7.35-7.45) ABG Total CO2 (22-28) mmol.L ABG O2 Saturation (95-98) % ABG Base Excess (-2.0-3.0) mmol/L ABG Potassium (3.6-5.2) mmol/L Glucose (65-105) mg/dl Lactate (0.7-2.1) mmol/L FiO2 % Sodium (132-148) mmol/L Potassium (3.6-5.0) mmol/L Chloride (98-107) mmol/L Carbon Dioxide (21-33) mmol/L Anion Gap (10-20) BUN (7-21) mg/dL Creatinine (0.5-1.4) mg/dL Est GFR ( Amer) Est GFR (Non-Af Amer) POC Glucose (mg/dL) 134 H (65-110) mg/dL Random Glucose (70-110) mg/dL Calcium (8.4-10.5) mg/dL Phosphorus (2.5-4.5) mg/dL Magnesium (1.7-2.2) mg/dL Total Bilirubin (0.2-1.3) mg/dL Direct Bilirubin (0.0-0.4) mg/dL AST (14-36) U/L ALT (7-56) U/L Alkaline Phosphatase (38-126) U/L Total Protein (5.8-8.3) g/dL Albumin (3.0-4.8) g/dL Globulin gm/dL Albumin/Globulin Ratio (1.1-1.8) Arterial Blood Potassium (3.6-5.2) mmol/L Crossmatch 11/22/16 11/22/16 11/22/16 Range/Units 11:33 07:24 06:10 WBC (4.5-11.0) 10^3/ul RBC (3.5-6.1) 10^6/uL Hgb (12.0-16.0) g/dL Hct (36.0-48.0) % MCV (80.0-105.0) fl MCH (25.0-35.0) pg MCHC (31.0-37.0) g/dl RDW (11.5-14.5) % Plt Count (120.0-450.0) 10^3/uL Manual Plt Count 18 L* (120-450) K/mm3 MPV (7.0-11.0) fl Corrected WBC (Man) 5.7 (4.5-11.0) K/mm3 Neutrophils % (Manual) 72 H (50.0-70.0) % Lymphocytes % (Manual) 17 L (22.0-35.0) % Monocytes % (Manual) 7 H (1.0-6.0) % Eosinophils % (Manual) 0 (0.0-3.0) % Basophils % (Manual) 0 (0.0-1.0) % Myelocytes % 4 % Nucleated RBC % 540 % Platelet Evaluation Low (NORMAL) Poikilocytosis (manual Slight Sickle Cells Slight Ovalocytes Slight PT (9.9-11.8) Seconds INR (0.93-1.08) Fibrinogen (187-400) mg/dL pCO2 (35-45) mm/Hg pO2 (80-100) mm/Hg HCO3 (21-28) mmol/L ABG pH (7.35-7.45) ABG Total CO2 (22-28) mmol.L ABG O2 Saturation (95-98) % ABG Base Excess (-2.0-3.0) mmol/L ABG Potassium (3.6-5.2) mmol/L Glucose (65-105) mg/dl Lactate (0.7-2.1) mmol/L FiO2 % Sodium (132-148) mmol/L Potassium (3.6-5.0) mmol/L Chloride (98-107) mmol/L Carbon Dioxide (21-33) mmol/L Anion Gap (10-20) BUN (7-21) mg/dL Creatinine (0.5-1.4) mg/dL Est GFR ( Amer) Est GFR (Non-Af Amer) POC Glucose (mg/dL) 146 H (65-110) mg/dL Random Glucose (70-110) mg/dL Calcium (8.4-10.5) mg/dL Phosphorus (2.5-4.5) mg/dL Magnesium (1.7-2.2) mg/dL Total Bilirubin (0.2-1.3) mg/dL Direct Bilirubin (0.0-0.4) mg/dL AST (14-36) U/L ALT (7-56) U/L Alkaline Phosphatase (38-126) U/L Total Protein (5.8-8.3) g/dL Albumin (3.0-4.8) g/dL Globulin gm/dL Albumin/Globulin Ratio (1.1-1.8) Arterial Blood Potassium (3.6-5.2) mmol/L Crossmatch 11/19/16 Range/Units 10:05 WBC (4.5-11.0) 10^3/ul RBC (3.5-6.1) 10^6/uL Hgb (12.0-16.0) g/dL Hct (36.0-48.0) % MCV (80.0-105.0) fl MCH (25.0-35.0) pg MCHC (31.0-37.0) g/dl RDW (11.5-14.5) % Plt Count (120.0-450.0) 10^3/uL Manual Plt Count (120-450) K/mm3 MPV (7.0-11.0) fl Corrected WBC (Man) (4.5-11.0) K/mm3 Neutrophils % (Manual) (50.0-70.0) % Lymphocytes % (Manual) (22.0-35.0) % Monocytes % (Manual) (1.0-6.0) % Eosinophils % (Manual) (0.0-3.0) % Basophils % (Manual) (0.0-1.0) % Myelocytes % % Nucleated RBC % % Platelet Evaluation (NORMAL) Poikilocytosis (manual Sickle Cells Ovalocytes PT (9.9-11.8) Seconds INR (0.93-1.08) Fibrinogen (187-400) mg/dL pCO2 (35-45) mm/Hg pO2 (80-100) mm/Hg HCO3 (21-28) mmol/L ABG pH (7.35-7.45) ABG Total CO2 (22-28) mmol.L ABG O2 Saturation (95-98) % ABG Base Excess (-2.0-3.0) mmol/L ABG Potassium (3.6-5.2) mmol/L Glucose (65-105) mg/dl Lactate (0.7-2.1) mmol/L FiO2 % Sodium (132-148) mmol/L Potassium (3.6-5.0) mmol/L Chloride (98-107) mmol/L Carbon Dioxide (21-33) mmol/L Anion Gap (10-20) BUN (7-21) mg/dL Creatinine (0.5-1.4) mg/dL Est GFR ( Amer) Est GFR (Non-Af Amer) POC Glucose (mg/dL) (65-110) mg/dL Random Glucose (70-110) mg/dL Calcium (8.4-10.5) mg/dL Phosphorus (2.5-4.5) mg/dL Magnesium (1.7-2.2) mg/dL Total Bilirubin (0.2-1.3) mg/dL Direct Bilirubin (0.0-0.4) mg/dL AST (14-36) U/L ALT (7-56) U/L Alkaline Phosphatase (38-126) U/L Total Protein (5.8-8.3) g/dL Albumin (3.0-4.8) g/dL Globulin gm/dL Albumin/Globulin Ratio (1.1-1.8) Arterial Blood Potassium (3.6-5.2) mmol/L Crossmatch See Detail Laboratory Results - last 24 hr 11/19/16 11/22/16 11/22/16 10:05 06:10 07:24 WBC RBC Hgb Hct MCV MCH MCHC RDW Plt Count Manual Plt Count 18 L* MPV Corrected WBC (Man) 5.7 Neutrophils % (Manual) 72 H Lymphocytes % (Manual) 17 L Monocytes % (Manual) 7 H Eosinophils % (Manual) 0 Basophils % (Manual) 0 Myelocytes % 4 Nucleated RBC % 540 Platelet Evaluation Low Poikilocytosis (manual Slight Sickle Cells Slight Ovalocytes Slight PT INR Fibrinogen pCO2 pO2 HCO3 ABG pH ABG Total CO2 ABG O2 Saturation ABG Base Excess ABG Potassium Glucose Lactate FiO2 Sodium Potassium Chloride Carbon Dioxide Anion Gap BUN Creatinine Est GFR ( Amer) Est GFR (Non-Af Amer) POC Glucose (mg/dL) Random Glucose Calcium Phosphorus Magnesium Total Bilirubin Direct Bilirubin AST ALT Alkaline Phosphatase Total Protein Albumin Globulin Albumin/Globulin Ratio Arterial Blood Potassium Crossmatch See Detail 11/22/16 11/22/16 11/23/16 11:33 22:24 05:10 WBC RBC Hgb Hct MCV MCH MCHC RDW Plt Count Manual Plt Count MPV Corrected WBC (Man) Neutrophils % (Manual) Lymphocytes % (Manual) Monocytes % (Manual) Eosinophils % (Manual) Basophils % (Manual) Myelocytes % Nucleated RBC % Platelet Evaluation Poikilocytosis (manual Sickle Cells Ovalocytes PT 21.6 H INR 2.00 H Fibrinogen 149.4 L pCO2 pO2 HCO3 ABG pH ABG Total CO2 ABG O2 Saturation ABG Base Excess ABG Potassium Glucose Lactate FiO2 Sodium Potassium Chloride Carbon Dioxide Anion Gap BUN Creatinine Est GFR ( Amer) Est GFR (Non-Af Amer) POC Glucose (mg/dL) 146 H 134 H Random Glucose Calcium Phosphorus Magnesium Total Bilirubin Direct Bilirubin AST ALT Alkaline Phosphatase Total Protein Albumin Globulin Albumin/Globulin Ratio Arterial Blood Potassium Crossmatch 11/23/16 11/23/16 11/23/16 05:10 05:10 05:25 WBC 54.2 H* D RBC 2.51 L Hgb 7.7 L Hct 21.0 L MCV 83.7 MCH 30.7 MCHC 36.7 RDW 16.7 H Plt Count 59 L Manual Plt Count MPV 9.3 Corrected WBC (Man) Neutrophils % (Manual) Lymphocytes % (Manual) Monocytes % (Manual) Eosinophils % (Manual) Basophils % (Manual) Myelocytes % Nucleated RBC % Platelet Evaluation Poikilocytosis (manual Sickle Cells Ovalocytes PT INR Fibrinogen pCO2 35 pO2 113.0 H HCO3 24.9 ABG pH 7.46 H ABG Total CO2 26.0 ABG O2 Saturation 100.9 H ABG Base Excess 1.4 ABG Potassium 3.6 Glucose 130 H Lactate 2.4 H FiO2 40.0 Sodium 134 132.0 Potassium 3.5 L Chloride 95 L 102.0 Carbon Dioxide 26 Anion Gap 17 BUN 54 H Creatinine 1.9 H Est GFR ( Amer) 36 Est GFR (Non-Af Amer) 30 POC Glucose (mg/dL) Random Glucose 129 H Calcium 7.1 L Phosphorus 5.5 H Magnesium 1.9 Total Bilirubin 19.8 H* Direct Bilirubin 18.7 H AST 541 H D ALT 134 H Alkaline Phosphatase 613 H Total Protein 5.7 L Albumin 2.7 L Globulin 3.0 Albumin/Globulin Ratio 0.9 L Arterial Blood Potassium 3.6 Crossmatch 11/23/16 06:24 WBC RBC Hgb Hct MCV MCH MCHC RDW Plt Count Manual Plt Count MPV Corrected WBC (Man) Neutrophils % (Manual) Lymphocytes % (Manual) Monocytes % (Manual) Eosinophils % (Manual) Basophils % (Manual) Myelocytes % Nucleated RBC % Platelet Evaluation Poikilocytosis (manual Sickle Cells Ovalocytes PT INR Fibrinogen pCO2 pO2 HCO3 ABG pH ABG Total CO2 ABG O2 Saturation ABG Base Excess ABG Potassium Glucose Lactate FiO2 Sodium Potassium Chloride Carbon Dioxide Anion Gap BUN Creatinine Est GFR ( Amer) Est GFR (Non-Af Amer) POC Glucose (mg/dL) 159 H Random Glucose Calcium Phosphorus Magnesium Total Bilirubin Direct Bilirubin AST ALT Alkaline Phosphatase Total Protein Albumin Globulin Albumin/Globulin Ratio Arterial Blood Potassium Crossmatch Fingerstick Blood Sugar Results: 154 Review of Systems - Review of Systems Review of Systems: unable to attain 2/2 patient non-verbal status Critical Care Progress Note - Nutrition Nutrition: Nutrition Category Date Time Status NPO Diet [DIET] Diets 11/18/16 Dinner Ordered Assessment/Plan - Assessment and Plan (Free Text) Assessment: This is a 36 yo AA F with PMH of Sickle cell disease, Bipolar disorder, cerebral palsy, Asthma, and CHF who initially presented to [facility] [place] with RUQ abd pain , and later developed Sickle cell crisis, Acute Chest Syndrome, GI bleed, and now has MODS including hepatic failure (2/2 hemochromatosis from multiple transfusions vs vaso-occlusive crisis), renal failure, and respiratory failure requiring intubation. Denied for transfer to [facility] and [facility], not a candidate for liver transplant as per [facility]. Patient has been extubated and is on HFNC with appropriate O2 saturation. Plan: Neuro: Patient off sedation GCS 10 (E4 V2 M4) Head CT from 11/22 showing no acute intracranial abnormality, mild age related global parenchymal Pulm: Pt extubated and tolerating HFNC 50L O2 Goal SaO2 >92% CXR today shows mild improvement from yesterday Continue to monitor with daily CXR Cardio: Shock requiring pressor support resolved Hypovolemic shock likely 2/2 to GI bleed vs. Distributive shock likely 2/2 sepsis vs. increased viscosity 2/2 vaso-occlusive crisis HR 90's - stable Dobutamine IV CXR showing cardiomegaly with most recent echo in June of 2010 showing 35-40% doppler b/l LE US negative Renal: Cr 1.9 today (yest 1.9) s/p 3 rounds of HD and 2 rounds of exchange transfusion UOP- 200mL past 24Hr, minimal UOP this AM 75mL over five hours Monitor I and O's, monitor and replace electrolytes as needed Nephrology following, continue ultrafiltration of fluid GI: Acute hepatic failure 2/2 acquired hemochromatosis from multiple blood transfusions vs. vaso-occlusive crisis vs. shock liver Monitor LFTs, coags GI has signed off Protonix Patient noted to not be candidate for liver transplant : Diaz catheter in place Bladder pressure increased Heme: Coagulopathy 2/2 Hepatic Failure, s/p multiple transfusions Heme/Onc (Dr. Palacios) following INR of 2.0 today Fibrinogen 149 HgbS pending ID: WBC [id number], Afebrile ID followign with recs of IV Vanc and Cefepime renally dosed with HD C. diff antigen positive, antigen negative, flagyl IV Q8H Lactate is 2.4 Dispo: ICU, off pressors and extubated to high-flow nasal canula, pending another HD; denied for transplant by [facility], denies for tertiary care transfer by [facility] and [facility] FEN: NPO, no feeds due to GI bleed, D10W 20cc/hr; pending swallow study Access: Peripheral IVs, R-chest port; NO NGT as per GI Consults: ID, Nephro, Heme-onc, GI (signed off), Cardio, Psych, Surgery, Palliative Code Status: Full code - Date & Time Date: 11/23/16 Time: 12:41 <Real ANGUIANO,Arnie H - Last Filed: 11/23/16 12:54> CCU Objective - Vital Signs / Intake & Output Vital Signs (Last 4 hours): Vital Signs Pulse Resp BP 11/23/16 11:15 94 H 11/23/16 11:14 89 10 L 11/23/16 11:13 95 H 22 11/23/16 11:12 95 H 14 11/23/16 11:11 106 H 26 H 11/23/16 11:10 91 H 18 11/23/16 11:09 88 19 11/23/16 11:08 95 H 21 11/23/16 11:07 99 H 11/23/16 11:06 94 H 16 11/23/16 11:05 93 H 19 11/23/16 11:04 93 H 17 11/23/16 11:03 92 H 11/23/16 11:02 99 H 12 11/23/16 11:01 98 H 11/23/16 11:00 124/87 11/23/16 10:59 96 H 14 11/23/16 10:58 98 H 20 11/23/16 10:57 93 H 24 11/23/16 10:56 94 H 18 11/23/16 10:55 86 11/23/16 10:54 95 H 16 11/23/16 10:53 95 H 11/23/16 10:52 92 H 11/23/16 10:51 101 H 11/23/16 10:50 99 H 11/23/16 09:19 94 H 126/54 L Intake and Output (Last 8hrs): Intake & Output 11/22/16 11/23/16 11/23/16 22:59 06:59 14:59 Intake Total 434 Output Total 130 150 Balance -130 284 Weight 183 lb 7 oz Intake: IV 234 D10W 110 Left Femoral 124 Other 200 Output: Urine 130 [address] 2-way Urethral 130 150 Other: # Bowel Movements 3 3 - Medications Active Medications: Active Medications Generic Name Dose Route Start Last Admin Trade Name Freq PRN Reason Stop Dose Admin Albuterol/Ipratropium 3 ml 11/16/16 14:00 11/23/16 08:41 Duoneb 3 Mg/0.5 Mg (3 Ml) Ud IH 3 ml [id number] ARLETTE Administration Ergocalciferol 1 cap 11/12/16 10:00 11/19/16 14:47 Drisdol 50,000 Intl Units Cap PO Not Given QWK ARLETTE Folic Acid 1 mg 11/12/16 10:00 11/22/16 10:41 Folic Acid PO Not Given DAILY ARLETTE Furosemide 40 mg 11/16/16 10:00 11/17/16 09:00 Lasix IVP 40 mg DAILY ARLETTE Administration Heparin Sodium (Porcine) 5,000 units 11/13/16 01:15 11/16/16 21:44 Heparin SC Not Given Q12 ARLETTE Protocol Hydrocortisone Sodium Succinate 50 mg 11/19/16 07:15 11/23/16 06:12 Solu-Cortef IVP 50 mg Q8 ARLETTE Administration Hydroxyurea 500 mg 11/12/16 10:00 11/22/16 10:41 Hydrea PO Not Given DAILY ARLETTE Vancomycin HCl 1 gm in 250 mls @ 167 mls/hr 11/15/16 11:30 11/23/16 09:27 Vancomycin 1gm IVPB 167 mls/hr DAILY ARLETTE Administration Protocol Cefepime HCl 1 gm in 100 mls @ 100 mls/hr 11/15/16 13:15 11/22/16 13:24 Maxipime 1gm IVPB 100 mls/hr Q24H ARLETTE Administration Protocol Dextrose 500 mls @ 20 mls/hr 11/16/16 18:45 11/22/16 18:37 Dextrose 10% In Water IV 20 mls/hr .Q24H ARLETTE Administration Metronidazole 500 mg in 100 mls @ 100 mls/hr 11/19/16 19:15 11/23/16 06:09 Flagyl IVPB 100 mls/hr Q8 ARLETTE Administration Protocol Dobutamine HCl/Dextrose 500 mg in 250 mls @ 5.647 mls/hr 11/20/16 07:32 11/23 09:19 Dobutamine/Dextrose 5% 500mg/250ml IV 5.647 mls/hr .Q24H PRN Administration TITRATE PER PROTOCOL Protocol 2.5 MCG/KG/MIN Lactic Acid 0 ea 11/13/16 09:22 Lac-Hydrin 12% Cream (140 G) TOP DAILY PRN Wound Lactulose 200 gm 11/19/16 12:00 11/23/16 06:10 Generlac MO 11/24/16 12:01 200 gm Q6 ARLETTE Administration Multivitamins/Minerals 1 tab 11/12/16 11:30 11/22/16 10:51 Therapeutic-M Tab PO Not Given DAILY ARLETTE Pantoprazole Sodium 40 mg 11/19/16 22:00 11/22/16 21:32 Protonix Inj IVP 40 mg Q12 ARLETTE Administration Rifaximin 550 mg 11/18/16 10:15 11/19/16 14:57 Xifaxan PO Not Given BID ARLETTE Protocol - Patient Studies Lab Studies: Lab Studies 11/23/16 11/23/16 11/23/16 Range/Units 11:14 07:53 06:24 WBC (4.5-11.0) 10^3/ul RBC (3.5-6.1) 10^6/uL Hgb (12.0-16.0) g/dL Hct (36.0-48.0) % MCV (80.0-105.0) fl MCH (25.0-35.0) pg MCHC (31.0-37.0) g/dl RDW (11.5-14.5) % Plt Count (120.0-450.0) 10^3/uL MPV (7.0-11.0) fl Corrected WBC (Man) (4.5-11.0) K/mm3 Neutrophils % (Manual) (50.0-70.0) % Band Neutrophils % (0-2) % Lymphocytes % (Manual) (22.0-35.0) % Monocytes % (Manual) (1.0-6.0) % Metamyelocytes % % Myelocytes % % Nucleated RBC % % Platelet Evaluation (NORMAL) Large Platelets Hemoglobin A (>96.0) Percent Hemoglobin A2 (1.8-3.5) Percent Hemoglobin C (0.0-0.0) Percent Hemoglobin F () (<2.0) Percent Hemoglobin S (0.0-0.0) Percent Variant Hemoglobin (0.0-0.0) Percent Hemoglobinopathy Interp PT (9.9-11.8) Seconds INR (0.93-1.08) Fibrinogen (187-400) mg/dL pCO2 (35-45) mm/Hg pO2 (80-100) mm/Hg HCO3 (21-28) mmol/L ABG pH (7.35-7.45) ABG Total CO2 (22-28) mmol.L ABG O2 Saturation (95-98) % ABG Base Excess (-2.0-3.0) mmol/L ABG Potassium (3.6-5.2) mmol/L Glucose (65-105) mg/dl Lactate (0.7-2.1) mmol/L FiO2 % Sodium (132-148) mmol/L Potassium (3.6-5.0) mmol/L Chloride (98-107) mmol/L Carbon Dioxide (21-33) mmol/L Anion Gap (10-20) BUN (7-21) mg/dL Creatinine (0.5-1.4) mg/dL Est GFR ( Amer) Est GFR (Non-Af Amer) POC Glucose (mg/dL) 148 H 132 H 159 H (65-110) mg/dL Random Glucose (70-110) mg/dL Calcium (8.4-10.5) mg/dL Phosphorus (2.5-4.5) mg/dL Magnesium (1.7-2.2) mg/dL Total Bilirubin (0.2-1.3) mg/dL Direct Bilirubin (0.0-0.4) mg/dL AST (14-36) U/L ALT (7-56) U/L Alkaline Phosphatase (38-126) U/L Total Protein (5.8-8.3) g/dL Albumin (3.0-4.8) g/dL Globulin gm/dL Albumin/Globulin Ratio (1.1-1.8) Arterial Blood Potassium (3.6-5.2) mmol/L Crossmatch 11/23/16 11/23/16 11/23/16 Range/Units 05:25 05:10 05:10 WBC 54.2 H* D (4.5-11.0) 10^3/ul RBC 2.51 L (3.5-6.1) 10^6/uL Hgb 7.7 L (12.0-16.0) g/dL Hct 21.0 L (36.0-48.0) % MCV 83.7 (80.0-105.0) fl MCH 30.7 (25.0-35.0) pg MCHC 36.7 (31.0-37.0) g/dl RDW 16.7 H (11.5-14.5) % Plt Count 59 L (120.0-450.0) 10^3/uL MPV 9.3 (7.0-11.0) fl Corrected WBC (Man) 10.7 (4.5-11.0) K/mm3 Neutrophils % (Manual) 82 H (50.0-70.0) % Band Neutrophils % 1 (0-2) % Lymphocytes % (Manual) 8 L (22.0-35.0) % Monocytes % (Manual) 7 H (1.0-6.0) % Metamyelocytes % 1 % Myelocytes % 1 % Nucleated RBC % 406 % Platelet Evaluation Low (NORMAL) Large Platelets Present Hemoglobin A (>96.0) Percent Hemoglobin A2 (1.8-3.5) Percent Hemoglobin C (0.0-0.0) Percent Hemoglobin F () (<2.0) Percent Hemoglobin S (0.0-0.0) Percent Variant Hemoglobin (0.0-0.0) Percent Hemoglobinopathy Interp PT (9.9-11.8) Seconds INR (0.93-1.08) Fibrinogen (187-400) mg/dL pCO2 35 (35-45) mm/Hg pO2 113.0 H (80-100) mm/Hg HCO3 24.9 (21-28) mmol/L ABG pH 7.46 H (7.35-7.45) ABG Total CO2 26.0 (22-28) mmol.L ABG O2 Saturation 100.9 H (95-98) % ABG Base Excess 1.4 (-2.0-3.0) mmol/L ABG Potassium 3.6 (3.6-5.2) mmol/L Glucose 130 H (65-105) mg/dl Lactate 2.4 H (0.7-2.1) mmol/L FiO2 40.0 % Sodium 132.0 134 (132-148) mmol/L Potassium 3.5 L (3.6-5.0) mmol/L Chloride 102.0 95 L (98-107) mmol/L Carbon Dioxide 26 (21-33) mmol/L Anion Gap 17 (10-20) BUN 54 H (7-21) mg/dL Creatinine 1.9 H (0.5-1.4) mg/dL Est GFR ( Amer) 36 Est GFR (Non-Af Amer) 30 POC Glucose (mg/dL) (65-110) mg/dL Random Glucose 129 H (70-110) mg/dL Calcium 7.1 L (8.4-10.5) mg/dL Phosphorus 5.5 H (2.5-4.5) mg/dL Magnesium 1.9 (1.7-2.2) mg/dL Total Bilirubin 19.8 H* (0.2-1.3) mg/dL Direct Bilirubin 18.7 H (0.0-0.4) mg/dL AST 541 H D (14-36) U/L ALT 134 H (7-56) U/L Alkaline Phosphatase 613 H (38-126) U/L Total Protein 5.7 L (5.8-8.3) g/dL Albumin 2.7 L (3.0-4.8) g/dL Globulin 3.0 gm/dL Albumin/Globulin Ratio 0.9 L (1.1-1.8) Arterial Blood Potassium 3.6 (3.6-5.2) mmol/L Crossmatch 11/23/16 11/22/16 11/19/16 Range/Units 05:10 22:24 10:05 WBC (4.5-11.0) 10^3/ul RBC (3.5-6.1) 10^6/uL Hgb (12.0-16.0) g/dL Hct (36.0-48.0) % MCV (80.0-105.0) fl MCH (25.0-35.0) pg MCHC (31.0-37.0) g/dl RDW (11.5-14.5) % Plt Count (120.0-450.0) 10^3/uL MPV (7.0-11.0) fl Corrected WBC (Man) (4.5-11.0) K/mm3 Neutrophils % (Manual) (50.0-70.0) % Band Neutrophils % (0-2) % Lymphocytes % (Manual) (22.0-35.0) % Monocytes % (Manual) (1.0-6.0) % Metamyelocytes % % Myelocytes % % Nucleated RBC % % Platelet Evaluation (NORMAL) Large Platelets Hemoglobin A (>96.0) Percent Hemoglobin A2 (1.8-3.5) Percent Hemoglobin C (0.0-0.0) Percent Hemoglobin F () (<2.0) Percent Hemoglobin S (0.0-0.0) Percent Variant Hemoglobin (0.0-0.0) Percent Hemoglobinopathy Interp PT 21.6 H (9.9-11.8) Seconds INR 2.00 H (0.93-1.08) Fibrinogen 149.4 L (187-400) mg/dL pCO2 (35-45) mm/Hg pO2 (80-100) mm/Hg HCO3 (21-28) mmol/L ABG pH (7.35-7.45) ABG Total CO2 (22-28) mmol.L ABG O2 Saturation (95-98) % ABG Base Excess (-2.0-3.0) mmol/L ABG Potassium (3.6-5.2) mmol/L Glucose (65-105) mg/dl Lactate (0.7-2.1) mmol/L FiO2 % Sodium (132-148) mmol/L Potassium (3.6-5.0) mmol/L Chloride (98-107) mmol/L Carbon Dioxide (21-33) mmol/L Anion Gap (10-20) BUN (7-21) mg/dL Creatinine (0.5-1.4) mg/dL Est GFR ( Amer) Est GFR (Non-Af Amer) POC Glucose (mg/dL) 134 H (65-110) mg/dL Random Glucose (70-110) mg/dL Calcium (8.4-10.5) mg/dL Phosphorus (2.5-4.5) mg/dL Magnesium (1.7-2.2) mg/dL Total Bilirubin (0.2-1.3) mg/dL Direct Bilirubin (0.0-0.4) mg/dL AST (14-36) U/L ALT (7-56) U/L Alkaline Phosphatase (38-126) U/L Total Protein (5.8-8.3) g/dL Albumin (3.0-4.8) g/dL Globulin gm/dL Albumin/Globulin Ratio (1.1-1.8) Arterial Blood Potassium (3.6-5.2) mmol/L Crossmatch See Detail 11/18/16 Range/Units 03:05 WBC (4.5-11.0) 10^3/ul RBC (3.5-6.1) 10^6/uL Hgb (12.0-16.0) g/dL Hct (36.0-48.0) % MCV (80.0-105.0) fl MCH (25.0-35.0) pg MCHC (31.0-37.0) g/dl RDW (11.5-14.5) % Plt Count (120.0-450.0) 10^3/uL MPV (7.0-11.0) fl Corrected WBC (Man) (4.5-11.0) K/mm3 Neutrophils % (Manual) (50.0-70.0) % Band Neutrophils % (0-2) % Lymphocytes % (Manual) (22.0-35.0) % Monocytes % (Manual) (1.0-6.0) % Metamyelocytes % % Myelocytes % % Nucleated RBC % % Platelet Evaluation (NORMAL) Large Platelets Hemoglobin A 91.3 L (>96.0) Percent Hemoglobin A2 2.5 (1.8-3.5) Percent Hemoglobin C 0.0 (0.0-0.0) Percent Hemoglobin F () <1.0 (<2.0) Percent Hemoglobin S 5.2 H (0.0-0.0) Percent Variant Hemoglobin 0.0 (0.0-0.0) Percent Hemoglobinopathy Interp See note PT (9.9-11.8) Seconds INR (0.93-1.08) Fibrinogen (187-400) mg/dL pCO2 (35-45) mm/Hg pO2 (80-100) mm/Hg HCO3 (21-28) mmol/L ABG pH (7.35-7.45) ABG Total CO2 (22-28) mmol.L ABG O2 Saturation (95-98) % ABG Base Excess (-2.0-3.0) mmol/L ABG Potassium (3.6-5.2) mmol/L Glucose (65-105) mg/dl Lactate (0.7-2.1) mmol/L FiO2 % Sodium (132-148) mmol/L Potassium (3.6-5.0) mmol/L Chloride (98-107) mmol/L Carbon Dioxide (21-33) mmol/L Anion Gap (10-20) BUN (7-21) mg/dL Creatinine (0.5-1.4) mg/dL Est GFR ( Amer) Est GFR (Non-Af Amer) POC Glucose (mg/dL) (65-110) mg/dL Random Glucose (70-110) mg/dL Calcium (8.4-10.5) mg/dL Phosphorus (2.5-4.5) mg/dL Magnesium (1.7-2.2) mg/dL Total Bilirubin (0.2-1.3) mg/dL Direct Bilirubin (0.0-0.4) mg/dL AST (14-36) U/L ALT (7-56) U/L Alkaline Phosphatase (38-126) U/L Total Protein (5.8-8.3) g/dL Albumin (3.0-4.8) g/dL Globulin gm/dL Albumin/Globulin Ratio (1.1-1.8) Arterial Blood Potassium (3.6-5.2) mmol/L Crossmatch Laboratory Results - last 24 hr 11/18/16 11/19/16 11/22/16 03:05 10:05 22:24 WBC RBC Hgb Hct MCV MCH MCHC RDW Plt Count MPV Corrected WBC (Man) Neutrophils % (Manual) Band Neutrophils % Lymphocytes % (Manual) Monocytes % (Manual) Metamyelocytes % Myelocytes % Nucleated RBC % Platelet Evaluation Large Platelets Hemoglobin A 91.3 L Hemoglobin A2 2.5 Hemoglobin C 0.0 Hemoglobin F () <1.0 Hemoglobin S 5.2 H Variant Hemoglobin 0.0 Hemoglobinopathy Interp See note PT INR Fibrinogen pCO2 pO2 HCO3 ABG pH ABG Total CO2 ABG O2 Saturation ABG Base Excess ABG Potassium Glucose Lactate FiO2 Sodium Potassium Chloride Carbon Dioxide Anion Gap BUN Creatinine Est GFR ( Amer) Est GFR (Non-Af Amer) POC Glucose (mg/dL) 134 H Random Glucose Calcium Phosphorus Magnesium Total Bilirubin Direct Bilirubin AST ALT Alkaline Phosphatase Total Protein Albumin Globulin Albumin/Globulin Ratio Arterial Blood Potassium Crossmatch See Detail 11/23/16 11/23/16 11/23/16 05:10 05:10 05:10 WBC 54.2 H* D RBC 2.51 L Hgb 7.7 L Hct 21.0 L MCV 83.7 MCH 30.7 MCHC 36.7 RDW 16.7 H Plt Count 59 L MPV 9.3 Corrected WBC (Man) 10.7 Neutrophils % (Manual) 82 H Band Neutrophils % 1 Lymphocytes % (Manual) 8 L Monocytes % (Manual) 7 H Metamyelocytes % 1 Myelocytes % 1 Nucleated RBC % 406 Platelet Evaluation Low Large Platelets Present Hemoglobin A Hemoglobin A2 Hemoglobin C Hemoglobin F () Hemoglobin S Variant Hemoglobin Hemoglobinopathy Interp PT 21.6 H INR 2.00 H Fibrinogen 149.4 L pCO2 pO2 HCO3 ABG pH ABG Total CO2 ABG O2 Saturation ABG Base Excess ABG Potassium Glucose Lactate FiO2 Sodium 134 Potassium 3.5 L Chloride 95 L Carbon Dioxide 26 Anion Gap 17 BUN 54 H Creatinine 1.9 H Est GFR ( Amer) 36 Est GFR (Non-Af Amer) 30 POC Glucose (mg/dL) Random Glucose 129 H Calcium 7.1 L Phosphorus 5.5 H Magnesium 1.9 Total Bilirubin 19.8 H* Direct Bilirubin 18.7 H AST 541 H D ALT 134 H Alkaline Phosphatase 613 H Total Protein 5.7 L Albumin 2.7 L Globulin 3.0 Albumin/Globulin Ratio 0.9 L Arterial Blood Potassium Crossmatch 11/23/16 11/23/16 11/23/16 05:25 06:24 07:53 WBC RBC Hgb Hct MCV MCH MCHC RDW Plt Count MPV Corrected WBC (Man) Neutrophils % (Manual) Band Neutrophils % Lymphocytes % (Manual) Monocytes % (Manual) Metamyelocytes % Myelocytes % Nucleated RBC % Platelet Evaluation Large Platelets Hemoglobin A Hemoglobin A2 Hemoglobin C Hemoglobin F () Hemoglobin S Variant Hemoglobin Hemoglobinopathy Interp PT INR Fibrinogen pCO2 35 pO2 113.0 H HCO3 24.9 ABG pH 7.46 H ABG Total CO2 26.0 ABG O2 Saturation 100.9 H ABG Base Excess 1.4 ABG Potassium 3.6 Glucose 130 H Lactate 2.4 H FiO2 40.0 Sodium 132.0 Potassium Chloride 102.0 Carbon Dioxide Anion Gap BUN Creatinine Est GFR ( Amer) Est GFR (Non-Af Amer) POC Glucose (mg/dL) 159 H 132 H Random Glucose Calcium Phosphorus Magnesium Total Bilirubin Direct Bilirubin AST ALT Alkaline Phosphatase Total Protein Albumin Globulin Albumin/Globulin Ratio Arterial Blood Potassium 3.6 Crossmatch 11/23/16 11:14 WBC RBC Hgb Hct MCV MCH MCHC RDW Plt Count MPV Corrected WBC (Man) Neutrophils % (Manual) Band Neutrophils % Lymphocytes % (Manual) Monocytes % (Manual) Metamyelocytes % Myelocytes % Nucleated RBC % Platelet Evaluation Large Platelets Hemoglobin A Hemoglobin A2 Hemoglobin C Hemoglobin F () Hemoglobin S Variant Hemoglobin Hemoglobinopathy Interp PT INR Fibrinogen pCO2 pO2 HCO3 ABG pH ABG Total CO2 ABG O2 Saturation ABG Base Excess ABG Potassium Glucose Lactate FiO2 Sodium Potassium Chloride Carbon Dioxide Anion Gap BUN Creatinine Est GFR ( Amer) Est GFR (Non-Af Amer) POC Glucose (mg/dL) 148 H Random Glucose Calcium Phosphorus Magnesium Total Bilirubin Direct Bilirubin AST ALT Alkaline Phosphatase Total Protein Albumin Globulin Albumin/Globulin Ratio Arterial Blood Potassium Crossmatch Critical Care Progress Note - Nutrition Nutrition: Nutrition Category Date Time Status NPO Diet [DIET] Diets 11/18/16 Dinner Ordered Attending/Attestation - Attestation I have personally seen and examined this patient.: Yes I have fully participated in the care of the patient.: Yes I have reviewed all pertinent clinical information: Yes Notes (Text): 11/23/16 12:51 36 y/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 Platelets recovering w/ transfusions. No bleeding noted. INR appx 2.0 Will try to increase urine output despite elevated CR and elevated bladder pressure. ON empiric abx and C.Diff antigen +. CX neg. Poor prognosis overall. WBC adjusted . Afebrile. Palliative care on board.
[2016-11-23 09:05] LABS: HEMOGLOBIN F <1.0 Percent (<2.0)
[2016-11-23] MEDS: DOBUTamine 500mg/250ml D5W 500 MG/250 ML BAG IV PRN (09:19)
[2016-11-23] MEDS: Vancomycin 1gm in NS 250ml 1 GM/250 ML BAG IVPB SCH (09:27)
--- NOTE | 2016-11-23 09:28 | RAD ---
HISTORY: intubated, f/u COMPARISON: 11/22/2016 FINDINGS: LUNGS: Bilateral perihilar opacities somewhat improved compared to prior examination. This may be due in part to differences in technique, however. There is focal opacity at the right lung base not appreciated previously. PLEURA: No significant pleural effusion identified, no pneumothorax apparent. CARDIOVASCULAR: There is congestive change. Right central venous infusion port noted. OSSEOUS STRUCTURES: No significant abnormalities. VISUALIZED UPPER ABDOMEN: Normal. OTHER FINDINGS: None. IMPRESSION: Congestive change and perihilar opacity bilaterally. Right basilar opacity. Possible developing pneumonia. Cannot rule out congestive heart failure. Right central venous infusion port.
[2016-11-23 11:33] LABS: BAND 1 % (0-2); CORRECTED WBC 10.7 K/mm3 (4.5-11.0); LARGE PLATELETS PRESENT; METAMYELOCYTE 1 %; MYELOCYTE 1 %; NEUTROPHIL 82 % (50.0-70.0); NUCLEATED RED BLOOD CELL 406 %; PLATELET ESTIMATE LOW (NORMAL)
--- NOTE | 2016-11-23 14:13 | PN ---
SUBJECTIVE: The patient appears comfortable. She is still on Dobutrex infusion. No reported ventricular arrhythmia. PHYSICAL EXAMINATION: VITAL SIGNS: Blood pressure 124/87, heart rate 93, temperature 97.6. HEENT: Pale conjunctivae. CHEST: Absent breath sounds over the bases. HEART: S1 and S2, regular. ABDOMEN: Soft. EXTREMITIES: 2+ arm and leg edema. LABORATORY DATA: Hemoglobin and hematocrit 7.7 and 21.0; white count 54,200; platelet count 69,000. SMA-7: Sodium 134, potassium 3.5, chloride 95, CO2 of 26, glucose 129, BUN 54, creatinine 1.9, total bilirubin is 19.8, AST and ALT are 541 and 134 respectively. Alkaline phosphatase is 613. ASSESSMENT: 1. Status post respiratory failure. 2. Liver failure. 3. Congestive heart failure. 4. Anemia and thrombocytopenia. 5. Acute renal failure, requiring hemodialysis. RECOMMENDATIONS: I did review the chest x-ray, which is consistent with [id number] CHF. Continue current Dobutrex infusion. Continue IV Flagyl. Subcutaneous heparin is on hold because of thrombocytopenia. Continue IV vancomycin and Solu-Cortef. Case will be discussed with Dr. Perez. Pedro Luis Deshpande MD
[2016-11-23] MEDS: Cefepime 1gm in NS 100ml 1 GM/100 ML BAG IVPB SCH (15:24)
--- NOTE | 2016-11-23 18:04 | CP.PCM.PN ---
Subjective - Date & Time of Evaluation Date of Evaluation: 11/21/16 Time of Evaluation: 13:00 - Subjective Subjective: Clinically improved after repeat red cell exchange Objective - Vital Signs/Intake and Output Vital Signs (last 24 hours): Temp Pulse Resp BP Pulse Ox 97.7 F 72 18 116/53 L 100 11/23/16 12:00 11/23/16 14:32 11/23/16 14:32 11/23/16 14:31 11/23/16 14:30 Intake and Output: 11/23/16 11/23/16 06:59 18:59 Intake Total 434 Output Total 150 Balance 284 - Medications Medications: Current Medications Albuterol/Ipratropium (Duoneb 3 Mg/0.5 Mg (3 Ml) Ud) 3 ml IH [id number] [facility] Last Admin: 11/23/16 13:25 Dose: 3 ml Ergocalciferol (Drisdol 50,000 Intl Units Cap) 1 cap PO QWK [facility] Last Admin: 11/19/16 14:47 Dose: Not Given Folic Acid (Folic Acid) 1 mg PO DAILY [facility] Last Admin: 11/23/16 17:14 Dose: Not Given Furosemide (Lasix) 40 mg IVP DAILY [facility] Last Admin: 11/17/16 09:00 Dose: 40 mg Heparin Sodium (Porcine) (Heparin) 5,000 units SC Q12 [facility] PRN Reason: Protocol Last Admin: 11/16/16 21:44 Dose: Not Given Hydrocortisone Sodium Succinate (Solu-Cortef) 50 mg IVP Q8 [facility] Last Admin: 11/23/16 15:24 Dose: 50 mg Hydroxyurea (Hydrea) 500 mg PO DAILY [facility] Last Admin: 11/22/16 10:41 Dose: Not Given Vancomycin HCl (Vancomycin 1gm) 1 gm in 250 mls @ 167 mls/hr IVPB DAILY [facility] PRN Reason: Protocol Last Admin: 11/23/16 09:27 Dose: 167 mls/hr Cefepime HCl (Maxipime 1gm) 1 gm in 100 mls @ 100 mls/hr IVPB Q24H [facility] PRN Reason: Protocol Last Admin: 11/23/16 15:24 Dose: 100 mls/hr Dextrose (Dextrose 10% In Water) 500 mls @ 20 mls/hr IV .Q24H [facility] Last Admin: 11/22/16 18:37 Dose: 20 mls/hr Metronidazole (Flagyl) 500 mg in 100 mls @ 100 mls/hr IVPB Q8 [facility] PRN Reason: Protocol Last Admin: 11/23/16 15:25 Dose: 100 mls/hr Dobutamine HCl/Dextrose (Dobutamine/Dextrose 5% 500mg/250ml) 500 mg in 250 mls @ 5.647 mls/hr IV .Q24H PRN; Protocol; 2.5 MCG/KG/MIN PRN Reason: TITRATE PER PROTOCOL Last Admin: 11/23/16 09:19 Dose: 5.647 mls/hr Lactic Acid (Lac-Hydrin 12% Cream (140 G)) 0 ea TOP DAILY PRN PRN Reason: Wound Lactulose (Generlac) 200 gm HI Q6 [facility] Stop: 11/24/16 12:01 Last Admin: 11/23/16 17:14 Dose: Not Given Multivitamins/Minerals (Therapeutic-M Tab) 1 tab PO DAILY [facility] Last Admin: 11/22/16 10:51 Dose: Not Given Pantoprazole Sodium (Protonix Inj) 40 mg IVP Q12 [facility] Last Admin: 11/22/16 21:32 Dose: 40 mg Rifaximin (Xifaxan) 550 mg PO BID [facility]E PRN Reason: Protocol Last Admin: 11/19/16 14:57 Dose: Not Given - Labs Labs: 11/23/16 05:10 11/23/16 05:10 PT 21.6 Seconds (9.9-11.8) H 11/23/16 05:10 INR 2.00 (0.93-1.08) H 11/23/16 05:10 APTT 83.0 Seconds (23.7-30.8) H* 11/19/16 10:00 - Head Exam Head Exam: ATRAUMATIC - ENT Exam ENT Exam: Mucous Membranes Dry - Respiratory Exam Respiratory Exam: NORMAL BREATHING PATTERN - Cardiovascular Exam Cardiovascular Exam: +S1, +S2 - GI/Abdominal Exam GI & Abdominal Exam: Normal Bowel Sounds - Rectal Exam Rectal Exam: NORMAL INSPECTION Assessment and Plan (1) Coagulopathy Assessment & Plan: DIC ? pheresis releated DIC platelet and cryopercipitate transfusion Status: Acute (2) Thrombocytopenia Assessment & Plan: DIC s/p thrombocytopenia Status: Acute (3) Sickle cell pain crisis Assessment & Plan: s/p red cell exchange x 2 Status: Acute (4) Iron overload due to repeated red blood cell transfusions Assessment & Plan: chelation liver disease Status: Acute (5) Leukocytosis Status: Acute
--- NOTE | 2016-11-23 18:14 | CP.PCM.PN ---
Subjective - Date & Time of Evaluation Date of Evaluation: 11/22/16 Time of Evaluation: 18:30 - Subjective Subjective: Extubated, lethargic, family at bedside Objective - Vital Signs/Intake and Output Vital Signs (last 24 hours): Temp Pulse Resp BP Pulse Ox 97.7 F 72 18 116/53 L 100 11/23/16 12:00 11/23/16 14:32 11/23/16 14:32 11/23/16 14:31 11/23/16 14:30 Intake and Output: 11/23/16 11/23/16 06:59 18:59 Intake Total 434 Output Total 150 Balance 284 - Medications Medications: Current Medications Albuterol/Ipratropium (Duoneb 3 Mg/0.5 Mg (3 Ml) Ud) 3 ml IH [id number] [facility] Last Admin: 11/23/16 13:25 Dose: 3 ml Ergocalciferol (Drisdol 50,000 Intl Units Cap) 1 cap PO QWK [facility] Last Admin: 11/19/16 14:47 Dose: Not Given Folic Acid (Folic Acid) 1 mg PO DAILY [facility] Last Admin: 11/23/16 17:14 Dose: Not Given Furosemide (Lasix) 40 mg IVP DAILY [facility] Last Admin: 11/17/16 09:00 Dose: 40 mg Heparin Sodium (Porcine) (Heparin) 5,000 units SC Q12 [facility] PRN Reason: Protocol Last Admin: 11/16/16 21:44 Dose: Not Given Hydrocortisone Sodium Succinate (Solu-Cortef) 50 mg IVP Q8 [facility] Last Admin: 11/23/16 15:24 Dose: 50 mg Hydroxyurea (Hydrea) 500 mg PO DAILY [facility] Last Admin: 11/22/16 10:41 Dose: Not Given Vancomycin HCl (Vancomycin 1gm) 1 gm in 250 mls @ 167 mls/hr IVPB DAILY [facility] PRN Reason: Protocol Last Admin: 11/23/16 09:27 Dose: 167 mls/hr Cefepime HCl (Maxipime 1gm) 1 gm in 100 mls @ 100 mls/hr IVPB Q24H [facility] PRN Reason: Protocol Last Admin: 11/23/16 15:24 Dose: 100 mls/hr Dextrose (Dextrose 10% In Water) 500 mls @ 20 mls/hr IV .Q24H [facility] Last Admin: 11/22/16 18:37 Dose: 20 mls/hr Metronidazole (Flagyl) 500 mg in 100 mls @ 100 mls/hr IVPB Q8 [facility] PRN Reason: Protocol Last Admin: 11/23/16 15:25 Dose: 100 mls/hr Dobutamine HCl/Dextrose (Dobutamine/Dextrose 5% 500mg/250ml) 500 mg in 250 mls @ 5.647 mls/hr IV .Q24H PRN; Protocol; 2.5 MCG/KG/MIN PRN Reason: TITRATE PER PROTOCOL Last Admin: 11/23/16 09:19 Dose: 5.647 mls/hr Lactic Acid (Lac-Hydrin 12% Cream (140 G)) 0 ea TOP DAILY PRN PRN Reason: Wound Lactulose (Generlac) 200 gm CO Q6 [facility] Stop: 11/24/16 12:01 Last Admin: 11/23/16 17:14 Dose: Not Given Multivitamins/Minerals (Therapeutic-M Tab) 1 tab PO DAILY [facility] Last Admin: 11/22/16 10:51 Dose: Not Given Pantoprazole Sodium (Protonix Inj) 40 mg IVP Q12 [facility] Last Admin: 11/22/16 21:32 Dose: 40 mg Rifaximin (Xifaxan) 550 mg PO BID [facility] PRN Reason: Protocol Last Admin: 11/19/16 14:57 Dose: Not Given - Labs Labs: 11/23/16 05:10 11/23/16 05:10 PT 21.6 Seconds (9.9-11.8) H 11/23/16 05:10 INR 2.00 (0.93-1.08) H 11/23/16 05:10 APTT 83.0 Seconds (23.7-30.8) H* 11/19/16 10:00 - Head Exam Head Exam: ATRAUMATIC - Eye Exam Eye Exam: Scleral icterus - ENT Exam ENT Exam: Mucous Membranes Dry - Respiratory Exam Respiratory Exam: Decreased Breath Sounds - Cardiovascular Exam Cardiovascular Exam: +S1, +S2 - GI/Abdominal Exam GI & Abdominal Exam: Normal Bowel Sounds - Extremities Exam Extremities Exam: Pedal Edema Assessment and Plan (1) Coagulopathy Assessment & Plan: DIC cryopercipitate if fibrinogen < 100 Status: Acute (2) Thrombocytopenia Assessment & Plan: DIC s/p platelet transfusion Status: Acute (3) Sickle cell pain crisis Assessment & Plan: s/p red cell exchange x 2 LFTs improving on dialysis Status: Acute (4) Iron overload due to repeated red blood cell transfusions Assessment & Plan: liver disease chelation Status: Acute (5) Leukocytosis Assessment & Plan: on antibiotics Status: Acute
--- NOTE | 2016-11-23 18:44 | CP.PCM.PN ---
Subjective - Date & Time of Evaluation Date of Evaluation: 11/23/16 Time of Evaluation: 17:00 - Subjective Subjective: Infectious Disease Follow Up: November 23, 2016 36 yo AA female well known to me from previous hospitalizations at [facility] and [facility] presented with generalized pains and admitted for Sickle Cell vasoocclusive Crisis. The patient was just [place] [facility] [place] few days ago. She returns with abdominal pain, nausea, and vomiting. The patient did not exhibit a fever while hospitalized so far but came very close with a 100.0 F. Patient with nausea and vomiting and diarrhea. Her blood pressure is lower than her usual. Started on Zosyn for antibiotic treatment. Sudden elevation of LFTs. Zosyn stopped on 11/14/2016. Impending liver failure ? Acute Kidney Injury. Noted Vancomycin restarted. Would continue with Cefepime for the time being. There is a leukocytosis of 42.0 although corrected WBC is 7.8. Patient appears swollen in general. AST and ALT are still increasing. Chelation therapy still in progress. Undergoing red cell exchange transfusion and plasmapheresis yesterday as well as hemodialysis. Patient remains intubated and ventilated. Extremely poor prognosis. The patient is not a candidate for liver transplant at this time as per the [facility] Liver transplant center. The patient is poorly responsive. Taken to EGD for cauterization. Supportive care. Renal dosing of antibiotics. Prognosis dismal. Patient had 2 red cell exchanges. Multiorgan failure. Extubated yesterday and off pressors. The patient can nod yes/no answers but doesn't always follow commands. She is able to track. Objective - Vital Signs/Intake and Output Vital Signs (last 24 hours): Temp Pulse Resp BP Pulse Ox 98.2 F 86 14 101/47 L 100 11/23/16 16:00 11/23/16 18:01 11/23/16 18:01 11/23/16 18:01 11/23/16 18:01 Intake and Output: 11/23/16 11/23/16 06:59 18:59 Intake Total 434 Output Total 150 Balance 284 - Medications Medications: Current Medications Albuterol/Ipratropium (Duoneb 3 Mg/0.5 Mg (3 Ml) Ud) 3 ml IH [id number] ARLETTE Last Admin: 11/23/16 13:25 Dose: 3 ml Ergocalciferol (Drisdol 50,000 Intl Units Cap) 1 cap PO QWK [facility] Last Admin: 11/19/16 14:47 Dose: Not Given Folic Acid (Folic Acid) 1 mg PO DAILY [facility] Last Admin: 11/23/16 17:14 Dose: Not Given Furosemide (Lasix) 40 mg IVP DAILY [facility] Last Admin: 11/17/16 09:00 Dose: 40 mg Heparin Sodium (Porcine) (Heparin) 5,000 units SC Q12 [facility] PRN Reason: Protocol Last Admin: 11/16/16 21:44 Dose: Not Given Hydrocortisone Sodium Succinate (Solu-Cortef) 50 mg IVP Q8 [facility] Last Admin: 11/23/16 15:24 Dose: 50 mg Hydroxyurea (Hydrea) 500 mg PO DAILY [facility] Last Admin: 11/22/16 10:41 Dose: Not Given Vancomycin HCl (Vancomycin 1gm) 1 gm in 250 mls @ 167 mls/hr IVPB DAILY [facility] PRN Reason: Protocol Last Admin: 11/23/16 09:27 Dose: 167 mls/hr Cefepime HCl (Maxipime 1gm) 1 gm in 100 mls @ 100 mls/hr IVPB Q24H [facility] PRN Reason: Protocol Last Admin: 11/23/16 15:24 Dose: 100 mls/hr Dextrose (Dextrose 10% In Water) 500 mls @ 20 mls/hr IV .Q24H [facility] Last Admin: 11/22/16 18:37 Dose: 20 mls/hr Metronidazole (Flagyl) 500 mg in 100 mls @ 100 mls/hr IVPB Q8 [facility] PRN Reason: Protocol Last Admin: 11/23/16 15:25 Dose: 100 mls/hr Dobutamine HCl/Dextrose (Dobutamine/Dextrose 5% 500mg/250ml) 500 mg in 250 mls @ 5.647 mls/hr IV .Q24H PRN; Protocol; 2.5 MCG/KG/MIN PRN Reason: TITRATE PER PROTOCOL Last Admin: 11/23/16 09:19 Dose: 5.647 mls/hr Lactic Acid (Lac-Hydrin 12% Cream (140 G)) 0 ea TOP DAILY PRN PRN Reason: Wound Lactulose (Generlac) 200 gm GA Q6 [facility] Stop: 11/24/16 12:01 Last Admin: 11/23/16 17:14 Dose: Not Given Multivitamins/Minerals (Therapeutic-M Tab) 1 tab PO DAILY [facility] Last Admin: 11/22/16 10:51 Dose: Not Given Pantoprazole Sodium (Protonix Inj) 40 mg IVP Q12 [facility] Last Admin: 11/22/16 21:32 Dose: 40 mg Rifaximin (Xifaxan) 550 mg PO BID [facility] PRN Reason: Protocol Last Admin: 11/19/16 14:57 Dose: Not Given - Labs Labs: 11/23/16 05:10 11/23/16 05:10 PT 21.6 Seconds (9.9-11.8) H 11/23/16 05:10 INR 2.00 (0.93-1.08) H 11/23/16 05:10 APTT 83.0 Seconds (23.7-30.8) H* 11/19/16 10:00 - Constitutional Appears: Non-toxic, Chronically Ill - Head Exam Additional comments: +1 edema of the face. - Eye Exam Eye Exam: EOMI, PERRL Pupil Exam: NORMAL ACCOMODATION, PERRL - ENT Exam ENT Exam: Mucous Membranes Moist, Normal External Ear Exam, TM's Normal Bilaterally - Neck Exam Neck Exam: Full ROM, Normal Inspection - Respiratory Exam Respiratory Exam: Decreased Breath Sounds, NORMAL BREATHING PATTERN. absent: Rales, Rhonchi, Wheezes - Cardiovascular Exam Cardiovascular Exam: REGULAR RHYTHM, RRR, +S1, +S2 - GI/Abdominal Exam GI & Abdominal Exam: Distended, Soft, Normal Bowel Sounds. absent: Tenderness - Extremities Exam Extremities Exam: Joint Swelling, Pedal Edema - Neurological Exam Neurological Exam: Alert, Awake Additional comments: nursing states she has been able to nod yes/no answers. - Psychiatric Exam Additional comments: opens eyes. difficult to assess further. Can track people in room. Assessment and Plan - Assessment and Plan (Free Text) Assessment: 36 yo AA female with known Sickle Cell disease presenting with diarrhea and abdominal pain. Low blood pressure/borderline hypotension. Supportive care. Velarde cultures. No leukocytosis noted however. Coagulase negative staph according to FISH studies. Sudden increase in LFTs and creatinine. Continue with renal dosing of Cefepime for now. Vancomycin should be adjusted for renal function. LFT are continuing to increase. Acute Kidney Injury with creatinine of 1.9. Remains in MICU for further care. General edema of the patient. Increasing leukocytosis. If continues to increase, will consider use of meropenem. Noted that the patient's cultures are negative to date. LFTs remain severely elevated. 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 Extremely poor prognosis. Extubated today. Generalized edema. Liver Cirrhosis. Not deemed a candidate for liver transplant by [facility] [place]. Patient is receiving hemodialysis. Multi-organ failure. EGD done with cauterization of an ulcer during this hospitalization. Patient's prognosis remains poor. She has been extubated and is off pressor medications. She is now awake and can track but doesn't follow commands. Thank you for allowing me to participate in the care of the patient, we will follow with you.
[2016-11-24] MEDS: Albuterol-Ipratrop 3 mg / 0.5 (3 ml) UD IH SCH ×4 (02:35→20:42)
[2016-11-24] MEDS: Lactulose 10 gm/15 ml (Rectal Use) PR SCH ×3 (04:48→12:30)
[2016-11-24 06:10] LABS: MEAN CELL VOLUME 85.9 fl (80.0-105.0); MEAN CORPUSCULAR HEMOGLOBIN 30.9 pg (25.0-35.0); MEAN PLATELET VOLUME 10.2 fl (7.0-11.0); PLATELET COUNT 39 10^3/uL (120.0-450.0); RED CELL DISTRIBUTION WIDTH 17.4 % (11.5-14.5)
[2016-11-24 06:17] LABS: ALB/GLOB RATIO 0.8 (1.1-1.8); CALCIUM 7.1 mg/dL (8.4-10.5); MAGNESIUM 1.9 mg/dL (1.7-2.2); PHOSPHOROUS 5.4 mg/dL (2.5-4.5); POTASSIUM 3.5 mmol/L (3.6-5.0); TOTAL PROTEIN 5.9 g/dL (5.8-8.3)
[2016-11-24 06:25] LABS: HEMATOCRIT 21.4 % (36.0-48.0); WHITE BLOOD COUNT 65.1 10^3/ul (4.5-11.0)
[2016-11-24 06:26] LABS: BILIRUBIN,TOTAL 19.7 mg/dL (0.2-1.3)
[2016-11-24] MEDS: DOBUTamine 500mg/250ml D5W 500 MG/250 ML BAG IV PRN (06:53)
[2016-11-24] MEDS: metroNIDAZOLE IV 500 mg/100 ml 500 MG/100 ML BAG IVPB SCH ×3 (06:54→21:14)
--- NOTE | 2016-11-24 08:45 | RAD ---
HISTORY: intubated, f/u COMPARISON: 11/23/2016 FINDINGS: LUNGS: Right perihilar opacity. Possible left perihilar opacity obscured partially by left heart border. Opacity at right lung base has improved. . PLEURA: No significant pleural effusion identified, no pneumothorax apparent. CARDIOVASCULAR: Normal heart size. Right central venous infusion port. Mild congestive change. OSSEOUS STRUCTURES: No significant abnormalities. VISUALIZED UPPER ABDOMEN: Normal. OTHER FINDINGS: None. IMPRESSION: Persistent perihilar opacities. Improved right basilar opacity.
[2016-11-24 08:58] LABS: INR 2.08 (0.93-1.08); PARTIAL THROMBOPLASTIN TIME 54.5 Seconds (23.7-30.8)
[2016-11-24 09:10] LABS: BAND 1 % (0-2); CORRECTED WBC 9.7 K/mm3 (4.5-11.0); NEUTROPHIL 86 % (50.0-70.0); NUCLEATED RED BLOOD CELL 574 %
[2016-11-24 09:11] LABS: ANISOCYTOSIS SLIGHT; PLATELET ESTIMATE LOW (NORMAL)
--- NOTE | 2016-11-24 09:18 | CP.CCUPN ---
<Aljeo Felix - Last Filed: 11/24/16 13:08> CCU Subjective - Physician Review Subjective (Free Text): 11/24/16 09:19 Patient s/e at bedside in ICU. Patient remains off sedation and on NC 3L with appropriate SaO2. No acute events overnight per report. Patient continues to be non-verbal and unable to follow simple commands. Patient is hemodynamically stable at this time requiring only dobutamine IV. Patient influenza titer has come back 1:32 signifying possible recent or past infection. Patient is afebrile. CCU Objective - Vital Signs / Intake & Output Vital Signs (Last 4 hours): Vital Signs Pulse Resp BP Pulse Ox 11/24/16 08:00 92 H 14 95/68 L 98 11/24/16 07:46 14 11/24/16 07:30 86 13 98/40 L 89 L 11/24/16 07:00 88 22 93/37 L 99 11/24/16 06:30 86 13 93/49 L 100 11/24/16 06:00 87 18 90/55 L 99 11/24/16 05:30 92 H 16 100/73 94 L 11/24/16 05:00 90 15 93/37 L 95 Intake and Output (Last 8hrs): Intake & Output 11/23/16 11/24/16 11/24/16 22:59 06:59 14:59 Intake Total 880 496 Output Total 100 90 Balance 780 406 Intake: IV 680 496 D10W 240 Left Femoral 420 376 Left Hand 10 right chest wall 10 120 Oral 0 Other 200 Output: Urine 100 90 2-way Urethral 100 90 Urine, Voided 0 Emesis 0 Oral Regurgitation 0 Other 0 Other: # Voids Urine, Voided 0 # Bowel Movements 1 - Physical Exam Head: Positive for: Atraumatic, Normocephalic. Negative for: Ecchymosis, Abrasion, Laceration Pupils: Positive for: PERRL. Negative for: Non-Reactive Extroacular Muscles: Positive for: Other (not following commands but atempting to avoid direct light challenge for PERRL assessment, able to track across room , PERRL ) Conjunctiva: Positive for: Icteric. Negative for: Normal, Injected Mouth: Negative for: Moist Mucous Membranes, Normal Tounge (small lac on underside of tongue), Normal Teeth (poor dentition) Pharnyx: Positive for: Other (no gross bleeding/oozing sites). Negative for: ERYTHEMA, EXUDATE Nose (External): Positive for: Atraumatic, Other (no expistaxis or oozing/ crusting around the nares). Negative for: Abrasion, Contusion, Laceration Nose (Internal): Negative for: Epistaxis Neck: Positive for: Normal Range of Motion (rotational ROM intact, spontaneously moving head back and forth in bed), Trachea Midline. Negative for : JVD Respiratory/Chest: Positive for: Good Air Exchange, Rhonchi, Other (R port in place- clean and dry, covered with bandaging; wearing High-flow nasal canula and satting well). Negative for: Clear to Auscultation (Mild ronchi in all haider, most prominent at expiration), Respiratory Distress, Accessory Muscle Use, Wheezes, Decreased Breath Sounds, Rales, Retracting Cardiovascular: Positive for: Normal S1, S2, Tachycardic (Rapid rate, regular rhythm). Negative for: Regular Rate and Rhythm, Murmurs, Irregular Rhythm, Bradycardic Abdomen: Positive for: Distention (increased firmness/distention,). Negative for: Tenderness, Normal Bowel Sounds (decreased and distant bowel sounds), Peritoneal Signs, Rebound, Guarding, Hernias Back: Positive for: Normal Inspection Upper Extremity: Positive for: Edema (Moderated edematous in bilateral UE, +2 pitting edema extending from hands to mid-humerus), Swelling, Temperature Abnormalties (mild coolness to palpation at bilateral hands). Negative for: Normal Inspection, Cyanosis, NORMAL PULSES (faintly palpable radials B/L ( possibly 2/2 edema) but clearly ausculated radial pulse with Duplex) Lower Extremity: Positive for: Edema (+2-3 pitting edema in bilateral LE extending from feet to mid-thigh), Temperature Abnormalties (mild coolness to palpation at bilateral feet). Negative for: Normal Inspection (Left groin with HD TLC in place- dressing with saturated sanginous strike through, site continues to ooze), NORMAL PULSES (unable to palpate bilateral dorsalis pedis, likely 2/2 edema, but clearly demonstrated with bedside doppler), Cyanosis, Erythema Neurological: Positive for: Other (bilateral Plantar reflexes intact, some spontaneous eye openings). Negative for: GCS=15 (score of 10 (E4 V2 M4)), CN II -XII Intact, Speech Normal, Motor Func Grossly Intact Skin: Positive for: Warm (except as documented in extremities exam), Dry, Normal Color. Negative for: Rashes Psychiatric: Positive for: Other (unable to assess, non-verbal, not following most commands) - Medications Active Medications: Active Medications Generic Name Dose Route Start Last Admin Trade Name Freq PRN Reason Stop Dose Admin Albuterol/Ipratropium 3 ml 11/16/16 14:00 11/24/16 07:42 Duoneb 3 Mg/0.5 Mg (3 Ml) Ud IH 3 ml [id number] ARLETTE Administration Ergocalciferol 1 cap 11/12/16 10:00 11/19/16 14:47 Drisdol 50,000 Intl Units Cap PO Not Given QWK ARLETTE Folic Acid 1 mg 11/12/16 10:00 11/23/16 17:14 Folic Acid PO Not Given DAILY ARLETTE Furosemide 40 mg 11/16/16 10:00 11/17/16 09:00 Lasix IVP 40 mg DAILY ARLETTE Administration Heparin Sodium (Porcine) 5,000 units 11/13/16 01:15 11/16/16 21:44 Heparin SC Not Given Q12 ARLETTE Protocol Hydrocortisone Sodium Succinate 50 mg 11/19/16 07:15 11/24/16 06:58 Solu-Cortef IVP 50 mg Q8 ARLETTE Administration Hydroxyurea 500 mg 11/12/16 10:00 11/23/16 21:52 Hydrea PO Not Given DAILY ARLETTE Vancomycin HCl 1 gm in 250 mls @ 167 mls/hr 11/15/16 11:30 11/23/16 09:27 Vancomycin 1gm IVPB 167 mls/hr DAILY ARLETTE Administration Protocol Cefepime HCl 1 gm in 100 mls @ 100 mls/hr 11/15/16 13:15 11/23/16 15:24 Maxipime 1gm IVPB 100 mls/hr Q24H ARLETTE Administration Protocol Dextrose 500 mls @ 20 mls/hr 11/16/16 18:45 11/23/16 21:51 Dextrose 10% In Water IV Not Given .Q24H ARLETTE Metronidazole 500 mg in 100 mls @ 100 mls/hr 11/19/16 19:15 11/24/16 06:54 Flagyl IVPB 100 mls/hr Q8 ARLETTE Administration Protocol Dobutamine HCl/Dextrose 500 mg in 250 mls @ 5.647 mls/hr 11/20/16 07:32 11/24 06:53 Dobutamine/Dextrose 5% 500mg/250ml IV 5.647 mls/hr .Q24H PRN Administration TITRATE PER PROTOCOL Protocol 2.5 MCG/KG/MIN Potassium Chloride 20 meq in 100 mls @ 50 mls/hr 11/24/16 07:15 Potassium Chloride 20 Meq/100 Ml IVPB 11/24/16 11:14 Q2H ARLETTE Lactic Acid 0 ea 11/13/16 09:22 Lac-Hydrin 12% Cream (140 G) TOP DAILY PRN Wound Lactulose 200 gm 11/19/16 12:00 11/24/16 06:55 Generlac NV 11/24/16 12:01 200 gm Q6 ARLETTE Administration Multivitamins/Minerals 1 tab 11/12/16 11:30 11/22/16 10:51 Therapeutic-M Tab PO Not Given DAILY ARLETTE Pantoprazole Sodium 40 mg 11/19/16 22:00 11/23/16 22:27 Protonix Inj IVP 40 mg Q12 ARLETTE Administration Rifaximin 550 mg 11/18/16 10:15 11/19/16 14:57 Xifaxan PO Not Given BID ARLETTE Protocol - Patient Studies Lab Studies: Lab Studies 11/24/16 11/24/16 11/24/16 Range/Units 07:27 05:45 05:45 WBC 65.1 H* D (4.5-11.0) 10^3/ul RBC 2.49 L (3.5-6.1) 10^6/uL Hgb 7.7 L (12.0-16.0) g/dL Hct 21.4 L (36.0-48.0) % MCV 85.9 (80.0-105.0) fl MCH 30.9 (25.0-35.0) pg MCHC 36.0 (31.0-37.0) g/dl RDW 17.4 H (11.5-14.5) % Plt Count 39 L* (120.0-450.0) 10^3/uL MPV 10.2 (7.0-11.0) fl Corrected WBC (Man) (4.5-11.0) K/mm3 Neutrophils % (Manual) (50.0-70.0) % Band Neutrophils % (0-2) % Lymphocytes % (Manual) (22.0-35.0) % Monocytes % (Manual) (1.0-6.0) % Metamyelocytes % % Myelocytes % % Nucleated RBC % % Platelet Evaluation (NORMAL) Large Platelets Hemoglobin A (>96.0) Percent Hemoglobin A2 (1.8-3.5) Percent Hemoglobin C (0.0-0.0) Percent Hemoglobin F () (<2.0) Percent Hemoglobin S (0.0-0.0) Percent Variant Hemoglobin (0.0-0.0) Percent Hemoglobinopathy Interp Sodium 133 (132-148) mmol/L Potassium 3.5 L (3.6-5.0) mmol/L Chloride 95 L (98-107) mmol/L Carbon Dioxide 25 (21-33) mmol/L Anion Gap 17 (10-20) BUN 58 H (7-21) mg/dL Creatinine 2.1 H (0.5-1.4) mg/dL Est GFR ( Amer) 32 Est GFR (Non-Af Amer) 26 POC Glucose (mg/dL) 128 H (65-110) mg/dL Random Glucose 117 H (70-110) mg/dL Calcium 7.1 L (8.4-10.5) mg/dL Phosphorus 5.4 H (2.5-4.5) mg/dL Magnesium 1.9 (1.7-2.2) mg/dL Total Bilirubin 19.7 H* (0.2-1.3) mg/dL AST 445 H (14-36) U/L ALT 118 H (7-56) U/L Alkaline Phosphatase 660 H (38-126) U/L Total Protein 5.9 (5.8-8.3) g/dL Albumin 2.7 L (3.0-4.8) g/dL Globulin 3.2 gm/dL Albumin/Globulin Ratio 0.8 L (1.1-1.8) Influenza Type A Ab (<1:8) titer Influenza Type B Ab (<1:8) titer 11/23/16 11/23/16 11/23/16 Range/Units 22:34 15:32 11:14 WBC (4.5-11.0) 10^3/ul RBC (3.5-6.1) 10^6/uL Hgb (12.0-16.0) g/dL Hct (36.0-48.0) % MCV (80.0-105.0) fl MCH (25.0-35.0) pg MCHC (31.0-37.0) g/dl RDW (11.5-14.5) % Plt Count (120.0-450.0) 10^3/uL MPV (7.0-11.0) fl Corrected WBC (Man) (4.5-11.0) K/mm3 Neutrophils % (Manual) (50.0-70.0) % Band Neutrophils % (0-2) % Lymphocytes % (Manual) (22.0-35.0) % Monocytes % (Manual) (1.0-6.0) % Metamyelocytes % % Myelocytes % % Nucleated RBC % % Platelet Evaluation (NORMAL) Large Platelets Hemoglobin A (>96.0) Percent Hemoglobin A2 (1.8-3.5) Percent Hemoglobin C (0.0-0.0) Percent Hemoglobin F () (<2.0) Percent Hemoglobin S (0.0-0.0) Percent Variant Hemoglobin (0.0-0.0) Percent Hemoglobinopathy Interp Sodium (132-148) mmol/L Potassium (3.6-5.0) mmol/L Chloride (98-107) mmol/L Carbon Dioxide (21-33) mmol/L Anion Gap (10-20) BUN (7-21) mg/dL Creatinine (0.5-1.4) mg/dL Est GFR ( Amer) Est GFR (Non-Af Amer) POC Glucose (mg/dL) 142 H 156 H 148 H (65-110) mg/dL Random Glucose (70-110) mg/dL Calcium (8.4-10.5) mg/dL Phosphorus (2.5-4.5) mg/dL Magnesium (1.7-2.2) mg/dL Total Bilirubin (0.2-1.3) mg/dL AST (14-36) U/L ALT (7-56) U/L Alkaline Phosphatase (38-126) U/L Total Protein (5.8-8.3) g/dL Albumin (3.0-4.8) g/dL Globulin gm/dL Albumin/Globulin Ratio (1.1-1.8) Influenza Type A Ab (<1:8) titer Influenza Type B Ab (<1:8) titer 11/23/16 11/20/16 11/18/16 Range/Units 05:10 08:28 03:05 WBC (4.5-11.0) 10^3/ul RBC (3.5-6.1) 10^6/uL Hgb (12.0-16.0) g/dL Hct (36.0-48.0) % MCV (80.0-105.0) fl MCH (25.0-35.0) pg MCHC (31.0-37.0) g/dl RDW (11.5-14.5) % Plt Count (120.0-450.0) 10^3/uL MPV (7.0-11.0) fl Corrected WBC (Man) 10.7 (4.5-11.0) K/mm3 Neutrophils % (Manual) 82 H (50.0-70.0) % Band Neutrophils % 1 (0-2) % Lymphocytes % (Manual) 8 L (22.0-35.0) % Monocytes % (Manual) 7 H (1.0-6.0) % Metamyelocytes % 1 % Myelocytes % 1 % Nucleated RBC % 406 % Platelet Evaluation Low (NORMAL) Large Platelets Present Hemoglobin A 91.3 L (>96.0) Percent Hemoglobin A2 2.5 (1.8-3.5) Percent Hemoglobin C 0.0 (0.0-0.0) Percent Hemoglobin F () <1.0 (<2.0) Percent Hemoglobin S 5.2 H (0.0-0.0) Percent Variant Hemoglobin 0.0 (0.0-0.0) Percent Hemoglobinopathy Interp See note Sodium (132-148) mmol/L Potassium (3.6-5.0) mmol/L Chloride (98-107) mmol/L Carbon Dioxide (21-33) mmol/L Anion Gap (10-20) BUN (7-21) mg/dL Creatinine (0.5-1.4) mg/dL Est GFR ( Amer) Est GFR (Non-Af Amer) POC Glucose (mg/dL) (65-110) mg/dL Random Glucose (70-110) mg/dL Calcium (8.4-10.5) mg/dL Phosphorus (2.5-4.5) mg/dL Magnesium (1.7-2.2) mg/dL Total Bilirubin (0.2-1.3) mg/dL AST (14-36) U/L ALT (7-56) U/L Alkaline Phosphatase (38-126) U/L Total Protein (5.8-8.3) g/dL Albumin (3.0-4.8) g/dL Globulin gm/dL Albumin/Globulin Ratio (1.1-1.8) Influenza Type A Ab 1:32 H (<1:8) titer Influenza Type B Ab 1:16 H (<1:8) titer Laboratory Results - last 24 hr 11/18/16 11/20/16 11/23/16 03:05 08:28 05:10 WBC RBC Hgb Hct MCV MCH MCHC RDW Plt Count MPV Corrected WBC (Man) 10.7 Neutrophils % (Manual) 82 H Band Neutrophils % 1 Lymphocytes % (Manual) 8 L Monocytes % (Manual) 7 H Metamyelocytes % 1 Myelocytes % 1 Nucleated RBC % 406 Platelet Evaluation Low Large Platelets Present Hemoglobin A 91.3 L Hemoglobin A2 2.5 Hemoglobin C 0.0 Hemoglobin F () <1.0 Hemoglobin S 5.2 H Variant Hemoglobin 0.0 Hemoglobinopathy Interp See note Sodium Potassium Chloride Carbon Dioxide Anion Gap BUN Creatinine Est GFR ( Amer) Est GFR (Non-Af Amer) POC Glucose (mg/dL) Random Glucose Calcium Phosphorus Magnesium Total Bilirubin AST ALT Alkaline Phosphatase Total Protein Albumin Globulin Albumin/Globulin Ratio Influenza Type A Ab 1:32 H Influenza Type B Ab 1:16 H 11/23/16 11/23/16 11/23/16 11:14 15:32 22:34 WBC RBC Hgb Hct MCV MCH MCHC RDW Plt Count MPV Corrected WBC (Man) Neutrophils % (Manual) Band Neutrophils % Lymphocytes % (Manual) Monocytes % (Manual) Metamyelocytes % Myelocytes % Nucleated RBC % Platelet Evaluation Large Platelets Hemoglobin A Hemoglobin A2 Hemoglobin C Hemoglobin F () Hemoglobin S Variant Hemoglobin Hemoglobinopathy Interp Sodium Potassium Chloride Carbon Dioxide Anion Gap BUN Creatinine Est GFR ( Amer) Est GFR (Non-Af Amer) POC Glucose (mg/dL) 148 H 156 H 142 H Random Glucose Calcium Phosphorus Magnesium Total Bilirubin AST ALT Alkaline Phosphatase Total Protein Albumin Globulin Albumin/Globulin Ratio Influenza Type A Ab Influenza Type B Ab 11/24/16 11/24/16 11/24/16 05:45 05:45 07:27 WBC 65.1 H* D RBC 2.49 L Hgb 7.7 L Hct 21.4 L MCV 85.9 MCH 30.9 MCHC 36.0 RDW 17.4 H Plt Count 39 L* MPV 10.2 Corrected WBC (Man) Neutrophils % (Manual) Band Neutrophils % Lymphocytes % (Manual) Monocytes % (Manual) Metamyelocytes % Myelocytes % Nucleated RBC % Platelet Evaluation Large Platelets Hemoglobin A Hemoglobin A2 Hemoglobin C Hemoglobin F () Hemoglobin S Variant Hemoglobin Hemoglobinopathy Interp Sodium 133 Potassium 3.5 L Chloride 95 L Carbon Dioxide 25 Anion Gap 17 BUN 58 H Creatinine 2.1 H Est GFR ( Amer) 32 Est GFR (Non-Af Amer) 26 POC Glucose (mg/dL) 128 H Random Glucose 117 H Calcium 7.1 L Phosphorus 5.4 H Magnesium 1.9 Total Bilirubin 19.7 H* AST 445 H ALT 118 H Alkaline Phosphatase 660 H Total Protein 5.9 Albumin 2.7 L Globulin 3.2 Albumin/Globulin Ratio 0.8 L Influenza Type A Ab Influenza Type B Ab Fingerstick Blood Sugar Results: 128 Critical Care Progress Note - Nutrition Nutrition: Nutrition Category Date Time Status NPO Diet [DIET] Diets 11/18/16 Dinner Ordered Assessment/Plan - Assessment and Plan (Free Text) Assessment: This is a 36 yo AA F with PMH of Sickle cell disease, Bipolar disorder, cerebral palsy, Asthma, and CHF who initially presented to [facility] with RUQ abd pain , and later developed Sickle cell crisis, Acute Chest Syndrome, GI bleed, and now has MODS including hepatic failure (2/2 hemochromatosis from multiple transfusions vs vaso-occlusive crisis), renal failure, and respiratory failure requiring intubation. Denied for transfer to [facility] and [facility], not a candidate for liver transplant as per [facility]. Patient now on NC and tolerating Plan: Neuro: Patient off sedation GCS 10 (E4 V2 M4) Head CT from 11/22 showing no acute intracranial abnormality, mild age related global parenchymal Poor ability to follow simple commands, tracks in room, non-verbal Pulm: Pt changed from HFNC to NC 3L and tolerating well with appropriate SaO2>92% Goal SaO2 >92% CXR mostly unchanged showing some improvement of right basilar opacity Continue to monitor with daily CXR Cardio: Shock requiring pressor support resolved Hypovolemic shock likely 2/2 to GI bleed vs. Distributive shock likely 2/2 sepsis vs. increased viscosity 2/2 vaso-occlusive crisis HR 90's - stable Dobutamine IV CXR showing cardiomegaly with most recent echo in June of 2010 showing 35-40% doppler b/l LE US negative Renal: Cr 2.1 today (yest 1.9) s/p 3 rounds of HD and 2 rounds of exchange transfusion UOP- 190, dark nya urine need to increase UOP in setting of elevated Cr Monitor I and O's, monitor and replace electrolytes as needed Nephrology following, plan for full HD tomorrow GI: Acute hepatic failure 2/2 acquired hemochromatosis from multiple blood transfusions vs. vaso-occlusive crisis vs. shock liver Monitor LFTs, coags GI has signed off Protonix Patient noted to not be candidate for liver transplant : Diaz catheter in place Elevated bladder pressure, intervention at this time on hold 2/2 patient critical status Heme: Coagulopathy 2/2 Hepatic Failure, s/p multiple transfusions Heme/Onc (Dr. Palacios) following INR of 2.08 today Fibrinogen 149 HgbS pending ID: [id number], Afebrile ID following with recs of IV Vanc and Cefepime renally dosed with HD C. diff antigen positive, antigen negative, flagyl IV Q8H Influenza type A Ab titer 1:32 and Influenza type B Ab titer 1:16 signifying possible recent or past infection Dispo: ICU, off pressors and now on NC and tolerating pending another HD; denied for transplant by [facility], denies for tertiary care transfer by [facility] and [facility] , prognosis poor FEN: NPO, no feeds due to GI bleed, D10W 20cc/hr; Access: Peripheral IVs, R-chest port; NO NGT as per GI Consults: ID, Nephro, Heme-onc, GI (signed off), Cardio, Psych, Surgery, Palliative Code Status: Full code Case and plan discussed with attending - Date & Time Date: 11/24/16 Time: 08:55 <Real ANGUIANO,Arnie H - Last Filed: 11/24/16 13:33> CCU Objective - Vital Signs / Intake & Output Intake and Output (Last 8hrs): Intake & Output 11/23/16 11/24/16 11/24/16 22:59 06:59 14:59 Intake Total 880 496 Output Total 100 90 Balance 780 406 Intake: IV 680 496 D10W 240 Left Femoral 420 376 Left Hand 10 right chest wall 10 120 Oral 0 Other 200 Output: Urine 100 90 2-way Urethral 100 90 Urine, Voided 0 Emesis 0 Oral Regurgitation 0 Other 0 Other: # Voids Urine, Voided 0 # Bowel Movements 1 - Medications Active Medications: Active Medications Generic Name Dose Route Start Last Admin Trade Name Freq PRN Reason Stop Dose Admin Albuterol/Ipratropium 3 ml 11/16/16 14:00 11/24/16 13:05 Duoneb 3 Mg/0.5 Mg (3 Ml) Ud IH 3 ml [id number] ARLETTE Administration Ergocalciferol 1 cap 11/12/16 10:00 11/19/16 14:47 Drisdol 50,000 Intl Units Cap PO Not Given QWK ARLETTE Folic Acid 1 mg 11/12/16 10:00 11/24/16 09:48 Folic Acid PO Not Given DAILY ARLETTE Furosemide 40 mg 11/16/16 10:00 11/17/16 09:00 Lasix IVP 40 mg DAILY ARLETTE Administration Heparin Sodium (Porcine) 5,000 units 11/13/16 01:15 11/16/16 21:44 Heparin SC Not Given Q12 ARLETTE Protocol Hydrocortisone Sodium Succinate 50 mg 11/19/16 07:15 11/24/16 06:58 Solu-Cortef IVP 50 mg Q8 ARLETTE Administration Hydroxyurea 500 mg 11/12/16 10:00 11/24/16 09:24 Hydrea PO Not Given DAILY ARLETTE Vancomycin HCl 1 gm in 250 mls @ 167 mls/hr 11/15/16 11:30 11/24/16 09:41 Vancomycin 1gm IVPB 167 mls/hr DAILY ARLETTE Administration Protocol Cefepime HCl 1 gm in 100 mls @ 100 mls/hr 11/15/16 13:15 11/23/16 15:24 Maxipime 1gm IVPB 100 mls/hr Q24H ARLETTE Administration Protocol Dextrose 500 mls @ 20 mls/hr 11/16/16 18:45 11/23/16 21:51 Dextrose 10% In Water IV Not Given .Q24H ARLETTE Metronidazole 500 mg in 100 mls @ 100 mls/hr 11/19/16 19:15 11/24/16 06:54 Flagyl IVPB 100 mls/hr Q8 ARLETTE Administration Protocol Dobutamine HCl/Dextrose 500 mg in 250 mls @ 5.647 mls/hr 11/20/16 07:32 11/24 06:53 Dobutamine/Dextrose 5% 500mg/250ml IV 5.647 mls/hr .Q24H PRN Administration TITRATE PER PROTOCOL Protocol 2.5 MCG/KG/MIN Lactic Acid 0 ea 11/13/16 09:22 Lac-Hydrin 12% Cream (140 G) TOP DAILY PRN Wound Multivitamins/Minerals 1 tab 11/12/16 11:30 11/24/16 09:48 Therapeutic-M Tab PO Not Given DAILY ARLETTE Pantoprazole Sodium 40 mg 11/19/16 22:00 11/24/16 09:46 Protonix Inj IVP 40 mg Q12 ARLETTE Administration Rifaximin 550 mg 11/18/16 10:15 11/19/16 14:57 Xifaxan PO Not Given BID [facility] Protocol - Patient Studies Lab Studies: Lab Studies 11/24/16 11/24/16 11/24/16 Range/Units 11:28 08:00 07:27 WBC (4.5-11.0) 10^3/ul RBC (3.5-6.1) 10^6/uL Hgb (12.0-16.0) g/dL Hct (36.0-48.0) % MCV (80.0-105.0) fl MCH (25.0-35.0) pg MCHC (31.0-37.0) g/dl RDW (11.5-14.5) % Plt Count (120.0-450.0) 10^3/uL MPV (7.0-11.0) fl Corrected WBC (Man) (4.5-11.0) K/mm3 Neutrophils % (Manual) (50.0-70.0) % Band Neutrophils % (0-2) % Lymphocytes % (Manual) (22.0-35.0) % Monocytes % (Manual) (1.0-6.0) % Nucleated RBC % % Platelet Evaluation (NORMAL) Anisocytosis (manual) PT 22.5 H (9.9-11.8) Seconds INR 2.08 H (0.93-1.08) APTT 54.5 H (23.7-30.8) Seconds Sodium (132-148) mmol/L Potassium (3.6-5.0) mmol/L Chloride (98-107) mmol/L Carbon Dioxide (21-33) mmol/L Anion Gap (10-20) BUN (7-21) mg/dL Creatinine (0.5-1.4) mg/dL Est GFR ( Amer) Est GFR (Non-Af Amer) POC Glucose (mg/dL) 160 H 128 H (65-110) mg/dL Random Glucose (70-110) mg/dL Calcium (8.4-10.5) mg/dL Phosphorus (2.5-4.5) mg/dL Magnesium (1.7-2.2) mg/dL Total Bilirubin (0.2-1.3) mg/dL AST (14-36) U/L ALT (7-56) U/L Alkaline Phosphatase (38-126) U/L Total Protein (5.8-8.3) g/dL Albumin (3.0-4.8) g/dL Globulin gm/dL Albumin/Globulin Ratio (1.1-1.8) Influenza Type A Ab (<1:8) titer Influenza Type B Ab (<1:8) titer 11/24/16 11/24/16 11/23/16 Range/Units 05:45 05:45 22:34 WBC 65.1 H* D (4.5-11.0) 10^3/ul RBC 2.49 L (3.5-6.1) 10^6/uL Hgb 7.7 L (12.0-16.0) g/dL Hct 21.4 L (36.0-48.0) % MCV 85.9 (80.0-105.0) fl MCH 30.9 (25.0-35.0) pg MCHC 36.0 (31.0-37.0) g/dl RDW 17.4 H (11.5-14.5) % Plt Count 39 L* (120.0-450.0) 10^3/uL MPV 10.2 (7.0-11.0) fl Corrected WBC (Man) 9.7 (4.5-11.0) K/mm3 Neutrophils % (Manual) 86 H (50.0-70.0) % Band Neutrophils % 1 (0-2) % Lymphocytes % (Manual) 7 L (22.0-35.0) % Monocytes % (Manual) 6 (1.0-6.0) % Nucleated RBC % 574 % Platelet Evaluation Low (NORMAL) Anisocytosis (manual) Slight PT (9.9-11.8) Seconds INR (0.93-1.08) APTT (23.7-30.8) Seconds Sodium 133 (132-148) mmol/L Potassium 3.5 L (3.6-5.0) mmol/L Chloride 95 L (98-107) mmol/L Carbon Dioxide 25 (21-33) mmol/L Anion Gap 17 (10-20) BUN 58 H (7-21) mg/dL Creatinine 2.1 H (0.5-1.4) mg/dL Est GFR ( Amer) 32 Est GFR (Non-Af Amer) 26 POC Glucose (mg/dL) 142 H (65-110) mg/dL Random Glucose 117 H (70-110) mg/dL Calcium 7.1 L (8.4-10.5) mg/dL Phosphorus 5.4 H (2.5-4.5) mg/dL Magnesium 1.9 (1.7-2.2) mg/dL Total Bilirubin 19.7 H* (0.2-1.3) mg/dL AST 445 H (14-36) U/L ALT 118 H (7-56) U/L Alkaline Phosphatase 660 H (38-126) U/L Total Protein 5.9 (5.8-8.3) g/dL Albumin 2.7 L (3.0-4.8) g/dL Globulin 3.2 gm/dL Albumin/Globulin Ratio 0.8 L (1.1-1.8) Influenza Type A Ab (<1:8) titer Influenza Type B Ab (<1:8) titer 11/23/16 11/20/16 Range/Units 15:32 08:28 WBC (4.5-11.0) 10^3/ul RBC (3.5-6.1) 10^6/uL Hgb (12.0-16.0) g/dL Hct (36.0-48.0) % MCV (80.0-105.0) fl MCH (25.0-35.0) pg MCHC (31.0-37.0) g/dl RDW (11.5-14.5) % Plt Count (120.0-450.0) 10^3/uL MPV (7.0-11.0) fl Corrected WBC (Man) (4.5-11.0) K/mm3 Neutrophils % (Manual) (50.0-70.0) % Band Neutrophils % (0-2) % Lymphocytes % (Manual) (22.0-35.0) % Monocytes % (Manual) (1.0-6.0) % Nucleated RBC % % Platelet Evaluation (NORMAL) Anisocytosis (manual) PT (9.9-11.8) Seconds INR (0.93-1.08) APTT (23.7-30.8) Seconds Sodium (132-148) mmol/L Potassium (3.6-5.0) mmol/L Chloride (98-107) mmol/L Carbon Dioxide (21-33) mmol/L Anion Gap (10-20) BUN (7-21) mg/dL Creatinine (0.5-1.4) mg/dL Est GFR ( Amer) Est GFR (Non-Af Amer) POC Glucose (mg/dL) 156 H (65-110) mg/dL Random Glucose (70-110) mg/dL Calcium (8.4-10.5) mg/dL Phosphorus (2.5-4.5) mg/dL Magnesium (1.7-2.2) mg/dL Total Bilirubin (0.2-1.3) mg/dL AST (14-36) U/L ALT (7-56) U/L Alkaline Phosphatase (38-126) U/L Total Protein (5.8-8.3) g/dL Albumin (3.0-4.8) g/dL Globulin gm/dL Albumin/Globulin Ratio (1.1-1.8) Influenza Type A Ab 1:32 H (<1:8) titer Influenza Type B Ab 1:16 H (<1:8) titer Laboratory Results - last 24 hr 11/20/16 11/23/16 11/23/16 08:28 15:32 22:34 WBC RBC Hgb Hct MCV MCH MCHC RDW Plt Count MPV Corrected WBC (Man) Neutrophils % (Manual) Band Neutrophils % Lymphocytes % (Manual) Monocytes % (Manual) Nucleated RBC % Platelet Evaluation Anisocytosis (manual) PT INR APTT Sodium Potassium Chloride Carbon Dioxide Anion Gap BUN Creatinine Est GFR ( Amer) Est GFR (Non-Af Amer) POC Glucose (mg/dL) 156 H 142 H Random Glucose Calcium Phosphorus Magnesium Total Bilirubin AST ALT Alkaline Phosphatase Total Protein Albumin Globulin Albumin/Globulin Ratio Influenza Type A Ab 1:32 H Influenza Type B Ab 1:16 H 11/24/16 11/24/16 11/24/16 05:45 05:45 07:27 WBC 65.1 H* D RBC 2.49 L Hgb 7.7 L Hct 21.4 L MCV 85.9 MCH 30.9 MCHC 36.0 RDW 17.4 H Plt Count 39 L* MPV 10.2 Corrected WBC (Man) 9.7 Neutrophils % (Manual) 86 H Band Neutrophils % 1 Lymphocytes % (Manual) 7 L Monocytes % (Manual) 6 Nucleated RBC % 574 Platelet Evaluation Low Anisocytosis (manual) Slight PT INR APTT Sodium 133 Potassium 3.5 L Chloride 95 L Carbon Dioxide 25 Anion Gap 17 BUN 58 H Creatinine 2.1 H Est GFR ( Amer) 32 Est GFR (Non-Af Amer) 26 POC Glucose (mg/dL) 128 H Random Glucose 117 H Calcium 7.1 L Phosphorus 5.4 H Magnesium 1.9 Total Bilirubin 19.7 H* AST 445 H ALT 118 H Alkaline Phosphatase 660 H Total Protein 5.9 Albumin 2.7 L Globulin 3.2 Albumin/Globulin Ratio 0.8 L Influenza Type A Ab Influenza Type B Ab 11/24/16 11/24/16 08:00 11:28 WBC RBC Hgb Hct MCV MCH MCHC RDW Plt Count MPV Corrected WBC (Man) Neutrophils % (Manual) Band Neutrophils % Lymphocytes % (Manual) Monocytes % (Manual) Nucleated RBC % Platelet Evaluation Anisocytosis (manual) PT 22.5 H INR 2.08 H APTT 54.5 H Sodium Potassium Chloride Carbon Dioxide Anion Gap BUN Creatinine Est GFR ( Amer) Est GFR (Non-Af Amer) POC Glucose (mg/dL) 160 H Random Glucose Calcium Phosphorus Magnesium Total Bilirubin AST ALT Alkaline Phosphatase Total Protein Albumin Globulin Albumin/Globulin Ratio Influenza Type A Ab Influenza Type B Ab Critical Care Progress Note - Nutrition Nutrition: Nutrition Category Date Time Status NPO Diet [DIET] Diets 11/18/16 Dinner Ordered Attending/Attestation - Attestation I have personally seen and examined this patient.: Yes I have fully participated in the care of the patient.: Yes I have reviewed all pertinent clinical information: Yes Notes (Text): 11/24/16 13:29 36 y/o F w/ SC disease. S/P MODS and septic shock. Currently improving, but continues to require UF/ HD for fluid removal. On empiric abx for infection, likely viral. All cx neg. C.Diff antigen + On NC breathing comfortably. Keep net neg fluid balance daily. Nephrology following along. S/P exchange transfusion x2, HD x3, UF x 1. Poor overall prognosis. Mental status not improved. Family awarew/ palliative care following along. Thromobocytopenia stable, but > 20K cc time 55 min
[2016-11-24] MEDS: Vancomycin 1gm in NS 250ml 1 GM/250 ML BAG IVPB SCH (09:41)
[2016-11-24] MEDS: Multivitamin With Minerals Tab PO SCH ×2 (09:43→09:48)
--- NOTE | 2016-11-24 10:18 | CP.PCM.PN ---
Subjective - Date & Time of Evaluation Date of Evaluation: 11/24/16 Time of Evaluation: 10:13 - Subjective Subjective: Patient admitted with sickle cell vaso-occlusive crisis, acute liver injury, acutely decompensated systolic CHF and acute renal failure; s/p UF session yesterday; has been able to come off high flow oxygen since yesterday; not able to respond to verbal stimuli; Objective - Vital Signs/Intake and Output Vital Signs (last 24 hours): Temp Pulse Resp BP Pulse Ox 96.8 F L 92 H 14 95/68 L 98 11/24/16 04:00 11/24/16 08:00 11/24/16 08:00 11/24/16 08:00 11/24/16 08:00 Intake and Output: 11/24/16 11/24/16 06:59 18:59 Intake Total 496 Output Total 90 Balance 406 - Medications Medications: Current Medications Albuterol/Ipratropium (Duoneb 3 Mg/0.5 Mg (3 Ml) Ud) 3 ml IH [id number] [facility] Last Admin: 11/24/16 07:42 Dose: 3 ml Ergocalciferol (Drisdol 50,000 Intl Units Cap) 1 cap PO QWK [facility] Last Admin: 11/19/16 14:47 Dose: Not Given Folic Acid (Folic Acid) 1 mg PO DAILY [facility] Last Admin: 11/24/16 09:48 Dose: Not Given Furosemide (Lasix) 40 mg IVP DAILY [facility] Last Admin: 11/17/16 09:00 Dose: 40 mg Heparin Sodium (Porcine) (Heparin) 5,000 units SC Q12 [facility] PRN Reason: Protocol Last Admin: 11/16/16 21:44 Dose: Not Given Hydrocortisone Sodium Succinate (Solu-Cortef) 50 mg IVP Q8 [facility] Last Admin: 11/24/16 06:58 Dose: 50 mg Hydroxyurea (Hydrea) 500 mg PO DAILY [facility] Last Admin: 11/24/16 09:24 Dose: Not Given Vancomycin HCl (Vancomycin 1gm) 1 gm in 250 mls @ 167 mls/hr IVPB DAILY [facility] PRN Reason: Protocol Last Admin: 11/24/16 09:41 Dose: 167 mls/hr Cefepime HCl (Maxipime 1gm) 1 gm in 100 mls @ 100 mls/hr IVPB Q24H [facility] PRN Reason: Protocol Last Admin: 11/23/16 15:24 Dose: 100 mls/hr Dextrose (Dextrose 10% In Water) 500 mls @ 20 mls/hr IV .Q24H [facility] Last Admin: 11/23/16 21:51 Dose: Not Given Metronidazole (Flagyl) 500 mg in 100 mls @ 100 mls/hr IVPB Q8 [facility] PRN Reason: Protocol Last Admin: 11/24/16 06:54 Dose: 100 mls/hr Dobutamine HCl/Dextrose (Dobutamine/Dextrose 5% 500mg/250ml) 500 mg in 250 mls @ 5.647 mls/hr IV .Q24H PRN; Protocol; 2.5 MCG/KG/MIN PRN Reason: TITRATE PER PROTOCOL Last Admin: 11/24/16 06:53 Dose: 5.647 mls/hr Potassium Chloride (Potassium Chloride 20 Meq/100 Ml) 20 meq in 100 mls @ 50 mls/hr IVPB Q2H [facility] Stop: 11/24/16 11:14 Last Admin: 11/24/16 09:44 Dose: 50 mls/hr Lactic Acid (Lac-Hydrin 12% Cream (140 G)) 0 ea TOP DAILY PRN PRN Reason: Wound Lactulose (Generlac) 200 gm OR Q6 [facility] Stop: 11/24/16 12:01 Last Admin: 11/24/16 06:55 Dose: 200 gm Multivitamins/Minerals (Therapeutic-M Tab) 1 tab PO DAILY [facility] Last Admin: 11/24/16 09:48 Dose: Not Given Pantoprazole Sodium (Protonix Inj) 40 mg IVP Q12 [facility] Last Admin: 11/24/16 09:46 Dose: 40 mg Rifaximin (Xifaxan) 550 mg PO BID [facility] PRN Reason: Protocol Last Admin: 11/19/16 14:57 Dose: Not Given - Labs Labs: 11/24/16 05:45 11/24/16 05:45 PT 22.5 Seconds (9.9-11.8) H 11/24/16 08:00 INR 2.08 (0.93-1.08) H 11/24/16 08:00 APTT 54.5 Seconds (23.7-30.8) H 11/24/16 08:00 - Constitutional Appears: Toxic, Chronically Ill - Eye Exam Eye Exam: Scleral icterus - ENT Exam ENT Exam: Mucous Membranes Moist - Respiratory Exam Additional comments: bilateral wheezes; tachypneic; - Cardiovascular Exam Cardiovascular Exam: +S1, +S2. absent: Gallop - GI/Abdominal Exam GI & Abdominal Exam: Distended, Firm. absent: Tenderness - Extremities Exam Additional comments: markedly edematous legs; - Neurological Exam Neurological Exam: Altered - Psychiatric Exam Psychiatric exam: absent: Agitated - Skin Skin Exam: Warm. absent: Cyanosis Assessment and Plan (1) Acute renal failure Assessment & Plan: Multifactorial at this point (sickle cell vaso-occlusion, ATN, compartment syndrome); oliguric renal failure; stable electrolyte status; s/p UF sessions the past 3 days with lower FIO2 requirement today; -no need for HD today, plan for full HD session tomorrow; Status: Acute (2) Acute hypoxemic respiratory failure Assessment & Plan: Improved with UF sessions; will continue to UF on HD tomorrow; Status: Acute (3) Acute exacerbation of CHF (congestive heart failure) Assessment & Plan: Systolic dysfunction; on dobutamine; lasix will not work with this degree of renal failure; UF as above; Status: Acute (4) Acute liver failure Status: Acute (5) Sickle cell anemia with crisis Assessment & Plan: Hgb relatively stable; transfuse prn; Status: Acute
--- NOTE | 2016-11-24 10:25 | CP.PCM.PN ---
Subjective - Date & Time of Evaluation Date of Evaluation: 11/23/16 Time of Evaluation: 12:00 - Subjective Subjective: Patient s/p UF session yesterday; tries to verbalize; Objective - Vital Signs/Intake and Output Vital Signs (last 24 hours): Temp Pulse Resp BP Pulse Ox 96.8 F L 92 H 14 95/68 L 98 11/24/16 04:00 11/24/16 08:00 11/24/16 08:00 11/24/16 08:00 11/24/16 08:00 Intake and Output: 11/24/16 11/24/16 06:59 18:59 Intake Total 496 Output Total 90 Balance 406 - Medications Medications: Current Medications Albuterol/Ipratropium (Duoneb 3 Mg/0.5 Mg (3 Ml) Ud) 3 ml IH [id number] [facility] Last Admin: 11/24/16 07:42 Dose: 3 ml Ergocalciferol (Drisdol 50,000 Intl Units Cap) 1 cap PO QWK [facility] Last Admin: 11/19/16 14:47 Dose: Not Given Folic Acid (Folic Acid) 1 mg PO DAILY [facility] Last Admin: 11/24/16 09:48 Dose: Not Given Furosemide (Lasix) 40 mg IVP DAILY [facility] Last Admin: 11/17/16 09:00 Dose: 40 mg Heparin Sodium (Porcine) (Heparin) 5,000 units SC Q12 [facility] PRN Reason: Protocol Last Admin: 11/16/16 21:44 Dose: Not Given Hydrocortisone Sodium Succinate (Solu-Cortef) 50 mg IVP Q8 [facility] Last Admin: 11/24/16 06:58 Dose: 50 mg Hydroxyurea (Hydrea) 500 mg PO DAILY [facility] Last Admin: 11/24/16 09:24 Dose: Not Given Vancomycin HCl (Vancomycin 1gm) 1 gm in 250 mls @ 167 mls/hr IVPB DAILY [facility] PRN Reason: Protocol Last Admin: 11/24/16 09:41 Dose: 167 mls/hr Cefepime HCl (Maxipime 1gm) 1 gm in 100 mls @ 100 mls/hr IVPB Q24H [facility] PRN Reason: Protocol Last Admin: 11/23/16 15:24 Dose: 100 mls/hr Dextrose (Dextrose 10% In Water) 500 mls @ 20 mls/hr IV .Q24H [facility] Last Admin: 11/23/16 21:51 Dose: Not Given Metronidazole (Flagyl) 500 mg in 100 mls @ 100 mls/hr IVPB Q8 [facility] PRN Reason: Protocol Last Admin: 11/24/16 06:54 Dose: 100 mls/hr Dobutamine HCl/Dextrose (Dobutamine/Dextrose 5% 500mg/250ml) 500 mg in 250 mls @ 5.647 mls/hr IV .Q24H PRN; Protocol; 2.5 MCG/KG/MIN PRN Reason: TITRATE PER PROTOCOL Last Admin: 11/24/16 06:53 Dose: 5.647 mls/hr Potassium Chloride (Potassium Chloride 20 Meq/100 Ml) 20 meq in 100 mls @ 50 mls/hr IVPB Q2H [facility] Stop: 11/24/16 11:14 Last Admin: 11/24/16 09:44 Dose: 50 mls/hr Lactic Acid (Lac-Hydrin 12% Cream (140 G)) 0 ea TOP DAILY PRN PRN Reason: Wound Lactulose (Generlac) 200 gm TN Q6 [facility] Stop: 11/24/16 12:01 Last Admin: 11/24/16 06:55 Dose: 200 gm Multivitamins/Minerals (Therapeutic-M Tab) 1 tab PO DAILY [facility] Last Admin: 11/24/16 09:48 Dose: Not Given Pantoprazole Sodium (Protonix Inj) 40 mg IVP Q12 [facility] Last Admin: 11/24/16 09:46 Dose: 40 mg Rifaximin (Xifaxan) 550 mg PO BID [facility] PRN Reason: Protocol Last Admin: 11/19/16 14:57 Dose: Not Given - Labs Labs: 11/24/16 05:45 11/24/16 05:45 PT 22.5 Seconds (9.9-11.8) H 11/24/16 08:00 INR 2.08 (0.93-1.08) H 11/24/16 08:00 APTT 54.5 Seconds (23.7-30.8) H 11/24/16 08:00 - Constitutional Appears: Toxic, Chronically Ill - Eye Exam Eye Exam: Scleral icterus - ENT Exam ENT Exam: Mucous Membranes Moist - Respiratory Exam Additional comments: tachypneic; - Cardiovascular Exam Cardiovascular Exam: +S1, +S2. absent: Gallop - GI/Abdominal Exam GI & Abdominal Exam: Distended, Firm - Extremities Exam Additional comments: markedly edematous ext; - Neurological Exam Neurological Exam: Awake - Psychiatric Exam Psychiatric exam: absent: Agitated - Skin Skin Exam: Warm. absent: Cyanosis Assessment and Plan (1) Acute renal failure Assessment & Plan: Multifactorial; bladder pressure of 22 indicating a component of abdominal compartment syndrome as well; oliguric renal failure; stable lytes; UF session today with 2L goal; Status: Acute (2) Acute hypoxemic respiratory failure Assessment & Plan: Still on high flow O2, UF will help; Status: Acute (3) Acute exacerbation of CHF (congestive heart failure) Assessment & Plan: With systolic dysfunction, on dobutamine; given IV lasix with no significant improvement in UO; UF as above; Status: Acute (4) Acute liver failure Status: Acute (5) Sickle cell anemia with crisis Assessment & Plan: Hgb relatively stable, transfuse per heme recs; Status: Acute
[2016-11-24] MEDS: Cefepime 1gm in NS 100ml 1 GM/100 ML BAG IVPB SCH (14:11)
--- NOTE | 2016-11-24 15:48 | PN ---
DATE: SUBJECTIVE: The patient is lethargic. Yesterday, she became hypotensive while undergoing ultrafiltration and Dobutrex was increased 5 mcg/kg/minute. She did failed swallow evaluation. PHYSICAL EXAMINATION: VITAL SIGNS: Blood pressure 95/68, heart rate 92, temperature 97.4, respirations 14. HEENT: Deep jaundiced and pale conjunctivae. CHEST: Diminished breath sounds bilaterally. HEART: S1 and S2, regular. EXTREMITIES: 1+ edema; however, left arm edema is 2+. LABORATORY DATA: Hemoglobin and hematocrit 7.7 and 21.4, white count , and platelet count is 89,000. Today's BUN and creatinine are 58 and 2.1 respectively. Glucose is 117, potassium 3.5, total bilirubin is 19.7. ASSESSMENT: 1. Congestive heart failure. 2. Liver failure and coagulopathy, today's INR is 2.08. 3. Sickle cell disease. 4. Thrombocytopenia. RECOMMENDATIONS: Continue current IV Maxipime, IV Flagyl. Continue IV Solu-Cortef. Continue Lasix 40 mg intravenously daily. Maintain Dobutrex at 5 mcg/kg/minute. The case was discussed with Dr. Green. Pedro Luis Deshpande MD
--- NOTE | 2016-11-24 17:18 | CP.PCM.PN ---
<Liu Moya - Last Filed: 11/24/16 17:14> Subjective - Date & Time of Evaluation Date of Evaluation: 11/24/16 Time of Evaluation: 08:00 - Subjective Subjective: Medicine Progress note. Dr. Green Pt seen and examined at bedside. Patient is awake, but does not respond to questioning. She tracks with her eyes. Non-verbal. Objective - Vital Signs/Intake and Output Vital Signs (last 24 hours): Temp Pulse Resp BP Pulse Ox 97.4 F L 92 H 14 95/68 L 98 11/24/16 08:00 11/24/16 08:00 11/24/16 08:00 11/24/16 08:00 11/24/16 08:00 Intake and Output: 11/24/16 11/24/16 06:59 18:59 Intake Total 496 Output Total 90 Balance 406 - Medications Medications: Current Medications Albuterol/Ipratropium (Duoneb 3 Mg/0.5 Mg (3 Ml) Ud) 3 ml IH [id number] [facility] Last Admin: 11/24/16 13:05 Dose: 3 ml Ergocalciferol (Drisdol 50,000 Intl Units Cap) 1 cap PO QWK [facility] Last Admin: 11/19/16 14:47 Dose: Not Given Folic Acid (Folic Acid) 1 mg PO DAILY [facility] Last Admin: 11/24/16 09:48 Dose: Not Given Furosemide (Lasix) 40 mg IVP DAILY [facility] Last Admin: 11/17/16 09:00 Dose: 40 mg Heparin Sodium (Porcine) (Heparin) 5,000 units SC Q12 [facility] PRN Reason: Protocol Last Admin: 11/16/16 21:44 Dose: Not Given Hydrocortisone Sodium Succinate (Solu-Cortef) 50 mg IVP Q8 [facility] Last Admin: 11/24/16 14:12 Dose: 50 mg Hydroxyurea (Hydrea) 500 mg PO DAILY [facility] Last Admin: 11/24/16 09:24 Dose: Not Given Vancomycin HCl (Vancomycin 1gm) 1 gm in 250 mls @ 167 mls/hr IVPB DAILY [facility] PRN Reason: Protocol Last Admin: 11/24/16 09:41 Dose: 167 mls/hr Cefepime HCl (Maxipime 1gm) 1 gm in 100 mls @ 100 mls/hr IVPB Q24H [facility] PRN Reason: Protocol Last Admin: 11/24/16 14:11 Dose: 100 mls/hr Dextrose (Dextrose 10% In Water) 500 mls @ 20 mls/hr IV .Q24H [facility] Last Admin: 11/23/16 21:51 Dose: Not Given Metronidazole (Flagyl) 500 mg in 100 mls @ 100 mls/hr IVPB Q8 [facility] PRN Reason: Protocol Last Admin: 11/24/16 14:11 Dose: 100 mls/hr Dobutamine HCl/Dextrose (Dobutamine/Dextrose 5% 500mg/250ml) 500 mg in 250 mls @ 5.647 mls/hr IV .Q24H PRN; Protocol; 2.5 MCG/KG/MIN PRN Reason: TITRATE PER PROTOCOL Last Admin: 11/24/16 06:53 Dose: 5.647 mls/hr Lactic Acid (Lac-Hydrin 12% Cream (140 G)) 0 ea TOP DAILY PRN PRN Reason: Wound Multivitamins/Minerals (Therapeutic-M Tab) 1 tab PO DAILY [facility] Last Admin: 11/24/16 09:48 Dose: Not Given Pantoprazole Sodium (Protonix Inj) 40 mg IVP Q12 [facility] Last Admin: 11/24/16 09:46 Dose: 40 mg Rifaximin (Xifaxan) 550 mg PO BID [facility] PRN Reason: Protocol Last Admin: 11/19/16 14:57 Dose: Not Given - Labs Labs: 11/24/16 05:45 11/24/16 05:45 PT 22.5 Seconds (9.9-11.8) H 11/24/16 08:00 INR 2.08 (0.93-1.08) H 11/24/16 08:00 APTT 54.5 Seconds (23.7-30.8) H 11/24/16 08:00 - Constitutional Appears: Toxic, Older Than Stated Age - Head Exam Head Exam: ATRAUMATIC, NORMAL INSPECTION, NORMOCEPHALIC - Eye Exam Eye Exam: EOMI, Scleral icterus (severe scleral icterus) - ENT Exam ENT Exam: Mucous Membranes Moist - Respiratory Exam Additional comments: diffuse mild crackles and rhonchi - Cardiovascular Exam Cardiovascular Exam: RRR, +S1, +S2 - GI/Abdominal Exam GI & Abdominal Exam: Firm. absent: Guarding, Rigid, Tenderness - Extremities Exam Additional comments: Bilateral pitting pretibial edema - Neurological Exam Neurological Exam: Awake Additional comments: Does not respond appropriately to questions. Non-verbal - Skin Skin Exam: Warm Additional comments: diffuse edema and jaundice Assessment and Plan - Assessment and Plan (Free Text) Assessment: 36 y/o F with PMH of Sickle cell disease, Bipolar disorder, Cerebral palsy, Asthma, decompensated systolic CHF here with Multi-organ failure due vaso- occlusive crisis. Hospital course complicated by thrombocytopenia, coagulopathy , leukocytosis, MELITON, hepatic encephalopathy, progressive liver failure, intrahepatic cholestasis. On Dobutamine support. 1. Likely Vaso-occlusive crisis secondary to sickle cell disease Monitor Hb closely transfuse if Hb <7 Continue Hydroxyurea transfusion exchange as per Heme and Nephro 2. Liver disease Patient not a candidate for liver transplantation at this time as per discussion with [facility] and [facility]. Transaminitis Thrombocytopenia Hyperbilirubinemia elevated and stable. Intrahepatic Hepatology signed off prognosis poor 3. Upper GI bleed secondary to OG trauma S/p bedside EGD on 11/19 Bleed cauterized and injected Continue to monitor Hb, stable Protonix 40 q12 4. Possible Colitis Leukocytosis, afebrile CT - evidence of possible colitis C.Diff antigen positive, toxin negative awaiting repeat stool cdiff Surgery signed off Low suspicion for colitis Patient is not a candidate for surgery On Abx ID following 5. MELITON Nephro following Continues to be oliguric Dialysis recs as per nephro Bladder pressure increased yesterday, not a surgical candidate. Will continue HD Tx tomorrow 6. Decompensated systolic CHF as per nephrology will not respond to Lasix on Dobutamine drip EF - 39.7% in June 2016 Cardiology following 7. Respiratory failure Extubated on 11/21, on High flow O2 Continue breathing treatments 8. Electrolyte abnormalities Replete as needed 9. PPx Protonix SCDs anticoagulation contraindicated Dispo: f/u Swallow recs. Consider TPN if cannot tolerate PO. f/u Palliative care recs patient with very poor prognosis encourage family involvement in decision making Discussed case with Dr. Norma Moya PGY1 <Marco Green - Last Filed: 11/24/16 18:45> Objective - Vital Signs/Intake and Output Vital Signs (last 24 hours): Temp Pulse Resp BP Pulse Ox 97.4 F L 97 H 31 H 119/70 97 11/24/16 08:00 11/24/16 18:30 11/24/16 18:30 11/24/16 18:01 11/24/16 18:30 Intake and Output: 11/24/16 11/24/16 06:59 18:59 Intake Total 496 Output Total 90 Balance 406 - Medications Medications: Current Medications Albuterol/Ipratropium (Duoneb 3 Mg/0.5 Mg (3 Ml) Ud) 3 ml IH [id number] [facility] Last Admin: 11/24/16 13:05 Dose: 3 ml Ergocalciferol (Drisdol 50,000 Intl Units Cap) 1 cap PO QWK [facility] Last Admin: 11/19/16 14:47 Dose: Not Given Folic Acid (Folic Acid) 1 mg PO DAILY [facility] Last Admin: 11/24/16 09:48 Dose: Not Given Furosemide (Lasix) 40 mg IVP DAILY [facility] Last Admin: 11/17/16 09:00 Dose: 40 mg Heparin Sodium (Porcine) (Heparin) 5,000 units SC Q12 [facility] PRN Reason: Protocol Last Admin: 11/16/16 21:44 Dose: Not Given Hydrocortisone Sodium Succinate (Solu-Cortef) 50 mg IVP Q8 [facility] Last Admin: 11/24/16 14:12 Dose: 50 mg Hydroxyurea (Hydrea) 500 mg PO DAILY [facility] Last Admin: 11/24/16 09:24 Dose: Not Given Vancomycin HCl (Vancomycin 1gm) 1 gm in 250 mls @ 167 mls/hr IVPB DAILY [facility] PRN Reason: Protocol Last Admin: 11/24/16 09:41 Dose: 167 mls/hr Cefepime HCl (Maxipime 1gm) 1 gm in 100 mls @ 100 mls/hr IVPB Q24H [facility] PRN Reason: Protocol Last Admin: 11/24/16 14:11 Dose: 100 mls/hr Dextrose (Dextrose 10% In Water) 500 mls @ 20 mls/hr IV .Q24H [facility] Last Admin: 11/23/16 21:51 Dose: Not Given Metronidazole (Flagyl) 500 mg in 100 mls @ 100 mls/hr IVPB Q8 [facility] PRN Reason: Protocol Last Admin: 11/24/16 14:11 Dose: 100 mls/hr Dobutamine HCl/Dextrose (Dobutamine/Dextrose 5% 500mg/250ml) 500 mg in 250 mls @ 5.647 mls/hr IV .Q24H PRN; Protocol; 2.5 MCG/KG/MIN PRN Reason: TITRATE PER PROTOCOL Last Admin: 11/24/16 06:53 Dose: 5.647 mls/hr Lactic Acid (Lac-Hydrin 12% Cream (140 G)) 0 ea TOP DAILY PRN PRN Reason: Wound Multivitamins/Minerals (Therapeutic-M Tab) 1 tab PO DAILY [facility] Last Admin: 11/24/16 09:48 Dose: Not Given Pantoprazole Sodium (Protonix Inj) 40 mg IVP Q12 [facility] Last Admin: 11/24/16 09:46 Dose: 40 mg Rifaximin (Xifaxan) 550 mg PO BID [facility] PRN Reason: Protocol Last Admin: 11/19/16 14:57 Dose: Not Given - Labs Labs: 11/24/16 05:45 11/24/16 05:45 PT 22.5 Seconds (9.9-11.8) H 11/24/16 08:00 INR 2.08 (0.93-1.08) H 11/24/16 08:00 APTT 54.5 Seconds (23.7-30.8) H 11/24/16 08:00 Attending/Attestation - Attestation I have personally seen and examined this patient.: Yes I have fully participated in the care of the patient.: Yes I have reviewed all pertinent clinical information, including history, physical exam and plan: Yes Notes (Text): 11/24/16 18:43 36 year old female with past medical history of sickle cell disease/anemia, bipolar disorder, CHF and asthma who presented with sickle cell crisis. Hospital course complicated with respiratory distress s/p intubation, shock on vasopressor support and GB s/p EGD with cauterization. Patient is s/p extubation. Continue to taper Fi02 requirements as tolerated. Her mental status has improved today. She is being followed by GI, ID and nephrology. CDif Antigen +. Continue with antibiotics as per ID. She is not a candidate for liver transplant per [facility]. Plasmapheresis, UF and red cell exchange as per hematology and nephrology. Case was discussed with Dr. Batres today. Nephrology note reviewed as well. Prognosis is guarded. Palliative care evaluation was appreciated. Marco Green MD Hospitalist.
--- NOTE | 2016-11-24 19:19 | CP.PCM.PN ---
Subjective - Date & Time of Evaluation Date of Evaluation: 11/24/16 Time of Evaluation: 17:30 - Subjective Subjective: Infectious Disease Follow Up: November 24, 2016 36 yo AA female well known to me from previous hospitalizations at [facility] and [facility] presented with generalized pains and admitted for Sickle Cell vasoocclusive Crisis. The patient was just discharged from [facility] a few days ago. She returns with abdominal pain, nausea, and vomiting. The patient did not exhibit a fever while hospitalized so far but came very close with a 100.0 F. Patient with nausea and vomiting and diarrhea. Her blood pressure is lower than her usual. Started on Zosyn for antibiotic treatment. Sudden elevation of LFTs. Zosyn stopped on 11/14/2016. Impending liver failure ? Acute Kidney Injury. Noted Vancomycin restarted. Would continue with Cefepime for the time being. There is a leukocytosis of 42.0 although corrected WBC is 7.8. Patient appears swollen in general. AST and ALT are still increasing. Chelation therapy still in progress. Undergoing red cell exchange transfusion and plasmapheresis yesterday as well as hemodialysis. Patient remains intubated and ventilated. Extremely poor prognosis. The patient is not a candidate for liver transplant at this time as per the [facility] Liver transplant center. The patient is poorly responsive. Taken to EGD for cauterization. Supportive care. Renal dosing of antibiotics. Prognosis dismal. Patient had 2 red cell exchanges. Multiorgan failure. Extubated and off pressors. The patient can nod yes/no answers on occasion but doesn't always follow commands. She is able to track. Objective - Vital Signs/Intake and Output Vital Signs (last 24 hours): Temp Pulse Resp BP Pulse Ox 97.4 F L 97 H 31 H 119/70 97 11/24/16 08:00 11/24/16 18:30 11/24/16 18:30 11/24/16 18:01 11/24/16 18:30 - Medications Medications: Current Medications Albuterol/Ipratropium (Duoneb 3 Mg/0.5 Mg (3 Ml) Ud) 3 ml IH [id number] [facility] Last Admin: 11/24/16 13:05 Dose: 3 ml Ergocalciferol (Drisdol 50,000 Intl Units Cap) 1 cap PO QWK [facility] Last Admin: 11/19/16 14:47 Dose: Not Given Folic Acid (Folic Acid) 1 mg PO DAILY [facility] Last Admin: 11/24/16 09:48 Dose: Not Given Furosemide (Lasix) 40 mg IVP DAILY [facility] Last Admin: 11/17/16 09:00 Dose: 40 mg Heparin Sodium (Porcine) (Heparin) 5,000 units SC Q12 [facility] PRN Reason: Protocol Last Admin: 11/16/16 21:44 Dose: Not Given Hydrocortisone Sodium Succinate (Solu-Cortef) 50 mg IVP Q8 [facility] Last Admin: 11/24/16 14:12 Dose: 50 mg Hydroxyurea (Hydrea) 500 mg PO DAILY [facility] Last Admin: 11/24/16 09:24 Dose: Not Given Vancomycin HCl (Vancomycin 1gm) 1 gm in 250 mls @ 167 mls/hr IVPB DAILY [facility] PRN Reason: Protocol Last Admin: 11/24/16 09:41 Dose: 167 mls/hr Cefepime HCl (Maxipime 1gm) 1 gm in 100 mls @ 100 mls/hr IVPB Q24H [facility] PRN Reason: Protocol Last Admin: 11/24/16 14:11 Dose: 100 mls/hr Dextrose (Dextrose 10% In Water) 500 mls @ 20 mls/hr IV .Q24H [facility] Last Admin: 11/23/16 21:51 Dose: Not Given Metronidazole (Flagyl) 500 mg in 100 mls @ 100 mls/hr IVPB Q8 [facility] PRN Reason: Protocol Last Admin: 11/24/16 14:11 Dose: 100 mls/hr Dobutamine HCl/Dextrose (Dobutamine/Dextrose 5% 500mg/250ml) 500 mg in 250 mls @ 5.647 mls/hr IV .Q24H PRN; Protocol; 2.5 MCG/KG/MIN PRN Reason: TITRATE PER PROTOCOL Last Admin: 11/24/16 06:53 Dose: 5.647 mls/hr Lactic Acid (Lac-Hydrin 12% Cream (140 G)) 0 ea TOP DAILY PRN PRN Reason: Wound Multivitamins/Minerals (Therapeutic-M Tab) 1 tab PO DAILY [facility] Last Admin: 11/24/16 09:48 Dose: Not Given Pantoprazole Sodium (Protonix Inj) 40 mg IVP Q12 [facility] Last Admin: 11/24/16 09:46 Dose: 40 mg Rifaximin (Xifaxan) 550 mg PO BID [facility] PRN Reason: Protocol Last Admin: 11/19/16 14:57 Dose: Not Given - Labs Labs: 11/24/16 05:45 11/24/16 05:45 PT 22.5 Seconds (9.9-11.8) H 11/24/16 08:00 INR 2.08 (0.93-1.08) H 11/24/16 08:00 APTT 54.5 Seconds (23.7-30.8) H 11/24/16 08:00 - Constitutional Appears: Non-toxic, No Acute Distress, Chronically Ill - Head Exam Head Exam: ATRAUMATIC, NORMOCEPHALIC - Eye Exam Eye Exam: EOMI, PERRL Pupil Exam: NORMAL ACCOMODATION, PERRL - ENT Exam ENT Exam: Mucous Membranes Moist, Normal External Ear Exam, TM's Normal Bilaterally - Neck Exam Neck Exam: Full ROM, Normal Inspection - Respiratory Exam Respiratory Exam: Clear to Ausculation Bilateral, NORMAL BREATHING PATTERN. absent: Rales, Rhonchi, Wheezes - Cardiovascular Exam Cardiovascular Exam: REGULAR RHYTHM, RRR, +S1, +S2 - GI/Abdominal Exam GI & Abdominal Exam: Distended, Soft, Normal Bowel Sounds. absent: Tenderness - Extremities Exam Extremities Exam: Joint Swelling, Pedal Edema - Neurological Exam Neurological Exam: Alert, Awake Additional comments: AAO x 1, tracks - Psychiatric Exam Additional comments: opens eyes. difficult to assess further. Can track people in room. - Skin Additional comments: general edema. Assessment and Plan - Assessment and Plan (Free Text) Assessment: 36 yo AA female with known Sickle Cell disease presenting with diarrhea and abdominal pain. Low blood pressure/borderline hypotension. Supportive care. Velarde cultures. No leukocytosis noted however. Coagulase negative staph according to FISH studies. Sudden increase in LFTs and creatinine. Continue with renal dosing of Cefepime for now. Vancomycin should be adjusted for renal function. LFT are continuing to increase. Acute Kidney Injury with creatinine of 1.9. Remains in MICU for further care. General edema of the patient. Increasing leukocytosis. If continues to increase, will consider use of meropenem. Noted that the patient's cultures are negative to date. LFTs remain severely elevated. 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 Extremely poor prognosis. Extubated today. Generalized edema. Liver Cirrhosis. Not deemed a candidate for liver transplant by [facility] Liver [facility]abo. Patient is receiving hemodialysis. Multi-organ failure. EGD done with cauterization of an ulcer during this hospitalization. Patient's prognosis remains poor. She has been extubated and is off pressor medications. She is now awake and can track but doesn't follow commands. No new issues. Thank you for allowing me to participate in the care of the patient, we will follow with you.
[2016-11-25] MEDS: Albuterol-Ipratrop 3 mg / 0.5 (3 ml) UD IH SCH ×4 (02:48→20:43)
[2016-11-25] MEDS: metroNIDAZOLE IV 500 mg/100 ml 500 MG/100 ML BAG IVPB SCH ×3 (05:28→21:34)
[2016-11-25] MEDS: DOBUTamine 500mg/250ml D5W 500 MG/250 ML BAG IV PRN (05:28)
[2016-11-25 06:11] LABS: ARTERIAL BLOOD GAS HCO3 20.6 mmol/L (21-28); ARTERIAL BLOOD GAS PH 7.43 (7.35-7.45)
[2016-11-25 06:14] LABS: BASO # 0.18 K/mm3 (0.0-2.0); BASO % 0.3 % (0.0-3.0); MEAN CELL VOLUME 87.3 fl (80.0-105.0); MEAN CORPUSCULAR HGB CONC 35.5 g/dl (31.0-37.0); RED CELL DISTRIBUTION WIDTH 19.4 % (11.5-14.5)
[2016-11-25 06:19] LABS: HEMATOCRIT 21.4 % (36.0-48.0)
[2016-11-25 06:29] LABS: ALB/GLOB RATIO 0.8 (1.1-1.8); CALCIUM 7.1 mg/dL (8.4-10.5); MAGNESIUM 1.8 mg/dL (1.7-2.2); PHOSPHOROUS 5.8 mg/dL (2.5-4.5); TOTAL PROTEIN 5.7 g/dL (5.8-8.3)
[2016-11-25 06:32] LABS: WHITE BLOOD COUNT 67.6 10^3/ul (4.5-11.0)
[2016-11-25 06:33] LABS: PLATELET COUNT 36 10^3/uL (120.0-450.0)
[2016-11-25 06:44] LABS: BILIRUBIN,TOTAL 19.7 mg/dL (0.2-1.3)
--- NOTE | 2016-11-25 07:45 | RAD ---
HISTORY: intubated, f/u COMPARISON: Portable chest 11/24/2016. FINDINGS: Right-sided chest port unchanged in position. LUNGS: History volume remains limited improvement in airspace disease seen at the right lung medially. There is likely improvement in left perihilar/medial basilar airspace disease as well. PLEURA: No definite pleural effusion bilaterally or pneumothorax. CARDIOVASCULAR: Cardiac silhouette remains prominent. No pulmonary derangement. OSSEOUS STRUCTURES: No significant abnormalities. VISUALIZED UPPER ABDOMEN: Normal. OTHER FINDINGS: None. IMPRESSION: Improving bilateral infiltrates as discussed above. Stable cardiomegaly.
[2016-11-25] MEDS ORDERED: Magnesium Sulfate 1 gm in D5W 1 GM/100 ML BAG IVPB ONE (08:48)
[2016-11-25] MEDS: Multivitamin With Minerals Tab PO SCH (09:45)
[2016-11-25] MEDS: Vancomycin 1gm in NS 250ml 1 GM/250 ML BAG IVPB SCH (09:48)
[2016-11-25 10:19] LABS: UFH SRA RESULT Negative (Negative)
--- NOTE | 2016-11-25 10:24 | CP.PCM.PN ---
Subjective - Date & Time of Evaluation Date of Evaluation: 11/25/16 Time of Evaluation: 10:21 - Subjective Subjective: 36 yo F admitted w/ sickle cell vaso-occlusive crisis, acute liver injury, acute hypoxemic resp failure and acute renal failure; Patient still not following commands, not responding to verbal stimuli; no diarrhea per nursing staff; not yet being fed (no NGT due to visible esophageal vessel/GI bleed); Objective - Vital Signs/Intake and Output Vital Signs (last 24 hours): Temp Pulse Resp BP Pulse Ox 97.1 F L 118 H 15 103/42 L 99 11/25/16 04:00 11/25/16 08:00 11/25/16 08:00 11/25/16 08:00 11/25/16 08:00 Intake and Output: 11/25/16 11/25/16 06:59 18:59 Intake Total 436 Output Total 100 Balance 336 - Medications Medications: Current Medications Albuterol/Ipratropium (Duoneb 3 Mg/0.5 Mg (3 Ml) Ud) 3 ml IH [id number] [facility] Last Admin: 11/25/16 07:56 Dose: 3 ml Ergocalciferol (Drisdol 50,000 Intl Units Cap) 1 cap PO QWK [facility] Last Admin: 11/19/16 14:47 Dose: Not Given Folic Acid (Folic Acid) 1 mg PO DAILY [facility] Last Admin: 11/25/16 09:45 Dose: Not Given Furosemide (Lasix) 40 mg IVP DAILY [facility] Last Admin: 11/17/16 09:00 Dose: 40 mg Heparin Sodium (Porcine) (Heparin) 5,000 units SC Q12 [facility] PRN Reason: Protocol Last Admin: 11/16/16 21:44 Dose: Not Given Hydrocortisone Sodium Succinate (Solu-Cortef) 50 mg IVP Q8 [facility] Last Admin: 11/25/16 05:27 Dose: 50 mg Hydroxyurea (Hydrea) 500 mg PO DAILY [facility] Last Admin: 11/25/16 09:45 Dose: Not Given Vancomycin HCl (Vancomycin 1gm) 1 gm in 250 mls @ 167 mls/hr IVPB DAILY [facility] PRN Reason: Protocol Last Admin: 11/25/16 09:48 Dose: 167 mls/hr Cefepime HCl (Maxipime 1gm) 1 gm in 100 mls @ 100 mls/hr IVPB Q24H [facility] PRN Reason: Protocol Last Admin: 11/24/16 14:11 Dose: 100 mls/hr Dextrose (Dextrose 10% In Water) 500 mls @ 20 mls/hr IV .Q24H [facility] Last Admin: 11/23/16 21:51 Dose: Not Given Metronidazole (Flagyl) 500 mg in 100 mls @ 100 mls/hr IVPB Q8 [facility] PRN Reason: Protocol Last Admin: 11/25/16 05:28 Dose: 100 mls/hr Dobutamine HCl/Dextrose (Dobutamine/Dextrose 5% 500mg/250ml) 500 mg in 250 mls @ 5.647 mls/hr IV .Q24H PRN; Protocol; 2.5 MCG/KG/MIN PRN Reason: TITRATE PER PROTOCOL Last Admin: 11/25/16 05:28 Dose: 5.647 mls/hr Lactic Acid (Lac-Hydrin 12% Cream (140 G)) 0 ea TOP DAILY PRN PRN Reason: Wound Multivitamins/Minerals (Therapeutic-M Tab) 1 tab PO DAILY [facility] Last Admin: 11/25/16 09:45 Dose: Not Given Pantoprazole Sodium (Protonix Inj) 40 mg IVP Q12 [facility] Last Admin: 11/25/16 09:48 Dose: 40 mg Rifaximin (Xifaxan) 550 mg PO BID [facility] PRN Reason: Protocol Last Admin: 11/19/16 14:57 Dose: Not Given - Labs Labs: 11/25/16 05:20 11/25/16 05:20 PT 22.5 Seconds (9.9-11.8) H 11/24/16 08:00 INR 2.08 (0.93-1.08) H 11/24/16 08:00 APTT 54.5 Seconds (23.7-30.8) H 11/24/16 08:00 - Constitutional Appears: Chronically Ill - Eye Exam Eye Exam: Scleral icterus - ENT Exam ENT Exam: Mucous Membranes Moist - Respiratory Exam Respiratory Exam: Clear to Ausculation Bilateral Additional comments: mildly tachypneic; - Cardiovascular Exam Cardiovascular Exam: REGULAR RHYTHM, +S1, +S2 - GI/Abdominal Exam GI & Abdominal Exam: Firm, Tenderness - Extremities Exam Additional comments: markedly edematous ext; - Neurological Exam Neurological Exam: Altered, Awake - Psychiatric Exam Psychiatric exam: absent: Agitated - Skin Skin Exam: Warm. absent: Cyanosis Assessment and Plan (1) Acute renal failure Assessment & Plan: Multifactorial in setting of sickle cell vaso-occlusive crisis, hypotension and intra-abdominal htn/compartment syndrome (bladder pressure as high as 22); oliguric renal failure; stable lytes but markedly edematous; decompression of abd likely not feasible given patient's multiple co-morbidities; will try to keep net negative fluid balance with HD/UF 4-5 times per week; -HD today, 3.5 hrs, 2L net UF goal Status: Acute (2) Acute hypoxemic respiratory failure Assessment & Plan: Overall improved with decreased FIO2 requirement; worsened by low lung volumes; will try to keep net neg with HD/UF; Status: Acute (3) Acute exacerbation of CHF (congestive heart failure) Assessment & Plan: With systolic dysfunction; on dobutamine; low/normal BP today but will try to keep net neg as above; Status: Acute (4) Acute liver failure Assessment & Plan: Possibly causing HRS (which may account for low BP); if BP persistently low, may need to be restarted on pressors in an attempt to reverse process (ie. splanchnic vasodilation causing acute renal failure), will monitor; Status: Acute (5) Sickle cell anemia with crisis Assessment & Plan: s/p 2 exchange transfusions; hgb stable; f/u with heme for further transfusion recs if hgb drops; Status: Acute
[2016-11-25] MEDS: Vasopressin 20 UNITS in Dextrose 5% In Water 100 ML IV SCH ×2 (10:59→21:00)
--- NOTE | 2016-11-25 11:05 | CP.CCUPN ---
<Johnny Gonzales - Last Filed: 11/25/16 11:41> CCU Subjective - Physician Review Subjective (Free Text): 11/25/16 11:00 Patient seen and examined at bedside in the ICU. Remains extubated, off pressors, and was weaned from High flow NC to regular NC over the weekend. Overnight, no acute events reported. Patient's mental status deteriorated over the weekend; previously able to shake head yes/no appropriately to some questions and follow some commands, now awake and only intermittently alert and not following any commands. Does not appear to be in acute distress, tracks staff when entering room and will orient to loud verbal or noxious physical stimuli. CCU Objective - Vital Signs / Intake & Output Vital Signs (Last 4 hours): Vital Signs Temp Pulse Resp BP Pulse Ox 11/25/16 10:30 95 H 14 73/43 L 94 L 11/25/16 10:28 96 H 13 85/52 L 94 L 11/25/16 10:00 99 H 15 97/43 L 95 11/25/16 09:48 96 H 14 82/45 L 96 11/25/16 09:30 96 H 13 82/52 L 97 11/25/16 09:00 99 H 15 88/50 L 96 11/25/16 08:30 100 H 22 85/52 L 95 11/25/16 08:00 96.9 F L 100 H 22 85/52 L 95 11/25/16 07:30 92 H 14 93/36 L 96 Intake and Output (Last 8hrs): Intake & Output 11/24/16 11/25/16 11/25/16 22:59 06:59 14:59 Intake Total 1235 436 Output Total 0 100 Balance 1235 336 Weight 84.822 kg Intake: IV 1035 436 D10W 240 240 Left Femoral 135 60 Left Hand 10 right chest wall 650 136 Oral 0 Other 200 Output: Urine 0 100 2-way Urethral 0 100 Urine, Voided 0 Emesis 0 Oral Regurgitation 0 Other 0 Other: # Voids Urine, Voided 0 # Bowel Movements 1 - Physical Exam Head: Positive for: Atraumatic, Normocephalic. Negative for: Ecchymosis, Abrasion, Laceration Pupils: Positive for: PERRL. Negative for: Sluggish, Non-Reactive, Pinpoint Extroacular Muscles: Positive for: Other (not following commands but attempting to avoid direct light challenge for PERRL assessment; able to track across room) Conjunctiva: Positive for: Icteric. Negative for: Normal, Injected Mouth: Negative for: Moist Mucous Membranes, Normal Tounge (small lac on underside of tongue), Normal Teeth (poor dentition) Pharnyx: Positive for: Other (no gross bleeding/oozing sites) Nose (External): Positive for: Atraumatic, Other (no expistaxis or oozing/ crusting around the nares). Negative for: Abrasion, Contusion, Laceration Nose (Internal): Negative for: Epistaxis Neck: Positive for: Normal Range of Motion (Able to move head appropriately to track staff/loud verbal/noxious physical stimuli), Trachea Midline. Negative for: JVD Respiratory/Chest: Positive for: Good Air Exchange, Wheezes (end-expiratory ), Rhonchi (diffusely ronchorous in all haider, presents with inspiration and expiration, also ausculated in neck), Other (R port in place- clean and dry, covered with bandaging; wearing regular nasal canula at 5L and satting well). Negative for: Clear to Auscultation (Mild ronchi in all haider, most prominent at expiration), Respiratory Distress, Accessory Muscle Use, Decreased Breath Sounds, Rales, Retracting Cardiovascular: Positive for: Normal S1, S2, Tachycardic (Rapid rate, regular rhythm). Negative for: Regular Rate and Rhythm, Murmurs, Irregular Rhythm, Bradycardic Abdomen: Positive for: Distention (increased firmness/distention, not rigid). Negative for: Tenderness, Normal Bowel Sounds (decreased and distant bowel sounds), Rebound, Guarding, Hernias Back: Positive for: Normal Inspection Upper Extremity: Positive for: Edema (Improved edema in bilateral UE (decreased R>L), +1 pitting edema extending from hand to mid-humerus of RUE, +1-2 pitting edema extending from hand to mid-humerus of LUE), Swelling, Temperature Abnormalties (mild coolness to palpation at bilateral hands). Negative for: Normal Inspection, Cyanosis, NORMAL PULSES (faintly palpable radials B/L ( possibly 2/2 edema)Duplex) Lower Extremity: Positive for: Edema (+3 pitting edema in bilateral LE extending from feet to mid-thigh), Temperature Abnormalties (mild coolness to palpation at bilateral feet). Negative for: Normal Inspection (Left groin with HD TLC in place- dressing with saturated sanginous strike through, site continues to ooze), NORMAL PULSES (unable to palpate bilateral dorsalis pedis, likely 2/2 edema, but clearly demonstrated with bedside doppler), Cyanosis, Erythema Neurological: Positive for: Other (bilateral Plantar reflexes intact, intermittently moving head and eyes to track staff in room). Negative for: GCS= 15 (score of 9 (E4 V1 M4)), CN II-XII Intact (unable to fully assess, not following commands; Pupilary reflex intact, some scattered eye movements to avoid direct light, protecting airway ), Speech Normal (non-verbal), Motor Func Grossly Intact Skin: Positive for: Warm (except as documented in extremities exam), Dry, Normal Color. Negative for: Rashes Psychiatric: Positive for: Other (unable to assess, non-verbal, not following any command or nodding/shaking head for any questions) - Medications Active Medications: Active Medications Generic Name Dose Route Start Last Admin Trade Name Freq PRN Reason Stop Dose Admin Albuterol/Ipratropium 3 ml 11/16/16 14:00 11/25/16 07:56 Duoneb 3 Mg/0.5 Mg (3 Ml) Ud IH 3 ml [id number] ARLETTE Administration Ergocalciferol 1 cap 11/12/16 10:00 11/19/16 14:47 Drisdol 50,000 Intl Units Cap PO Not Given QWK ARLETTE Folic Acid 1 mg 11/12/16 10:00 11/25/16 09:45 Folic Acid PO Not Given DAILY ARLETTE Furosemide 40 mg 11/16/16 10:00 11/17/16 09:00 Lasix IVP 40 mg DAILY ARLETTE Administration Heparin Sodium (Porcine) 5,000 units 11/13/16 01:15 11/16/16 21:44 Heparin SC Not Given Q12 [facility] Protocol Hydrocortisone Sodium Succinate 50 mg 11/19/16 07:15 11/25/16 05:27 Solu-Cortef IVP 50 mg Q8 ARLETTE Administration Hydroxyurea 500 mg 11/12/16 10:00 11/25/16 09:45 Hydrea PO Not Given DAILY ARLETTE Vancomycin HCl 1 gm in 250 mls @ 167 mls/hr 11/15/16 11:30 11/25/16 09:48 Vancomycin 1gm IVPB 167 mls/hr DAILY ARLETTE Administration Protocol Cefepime HCl 1 gm in 100 mls @ 100 mls/hr 11/15/16 13:15 11/24/16 14:11 Maxipime 1gm IVPB 100 mls/hr Q24H ARLETTE Administration Protocol Dextrose 500 mls @ 20 mls/hr 11/16/16 18:45 11/23/16 21:51 Dextrose 10% In Water IV Not Given .Q24H ARLETTE Metronidazole 500 mg in 100 mls @ 100 mls/hr 11/19/16 19:15 11/25/16 05:28 Flagyl IVPB 100 mls/hr Q8 ARLETTE Administration Protocol Dobutamine HCl/Dextrose 500 mg in 250 mls @ 5.647 mls/hr 11/20/16 07:32 11/25 05:28 Dobutamine/Dextrose 5% 500mg/250ml IV 5.647 mls/hr .Q24H PRN Administration TITRATE PER PROTOCOL Protocol 2.5 MCG/KG/MIN Vasopressin 20 units/ Dextrose 101 mls @ 9.09 mls/hr 11/25/16 10:45 IV .Q11H7M [facility] Protocol 0.03 U/MIN Lactic Acid 0 ea 11/13/16 09:22 Lac-Hydrin 12% Cream (140 G) TOP DAILY PRN Wound Multivitamins/Minerals 1 tab 11/12/16 11:30 11/25/16 09:45 Therapeutic-M Tab PO Not Given DAILY [facility] Pantoprazole Sodium 40 mg 11/19/16 22:00 11/25/16 09:48 Protonix Inj IVP 40 mg Q12 ARLETTE Administration Rifaximin 550 mg 11/18/16 10:15 11/19/16 14:57 Xifaxan PO Not Given BID [facility] Protocol - Patient Studies Lab Studies: Lab Studies 11/25/16 11/25/16 11/25/16 Range/Units 06:08 05:20 05:20 WBC 67.6 H* (4.5-11.0) 10^3/ul RBC 2.45 L (3.5-6.1) 10^6/uL Hgb 7.6 L (12.0-16.0) g/dL Hct 21.4 L (36.0-48.0) % MCV 87.3 (80.0-105.0) fl MCH 31.0 (25.0-35.0) pg MCHC 35.5 (31.0-37.0) g/dl RDW 19.4 H (11.5-14.5) % Plt Count 36 L* (120.0-450.0) 10^3/uL Baso % (Auto) 0.3 (0.0-3.0) % Baso # 0.18 (0.0-2.0) K/mm3 pCO2 31 L (35-45) mm/Hg pO2 71.0 L (80-100) mm/Hg HCO3 20.6 L (21-28) mmol/L ABG pH 7.43 (7.35-7.45) ABG Total CO2 21.6 L (22-28) mmol.L ABG O2 Saturation 101.0 H (95-98) % ABG Base Excess -2.7 L (-2.0-3.0) mmol/L ABG Potassium 3.6 (3.6-5.2) mmol/L Glucose 102 (65-105) mg/dl Lactate 2.6 H (0.7-2.1) mmol/L FiO2 36.0 % Sodium 133.0 131 L (132-148) mmol/L Potassium 4.0 (3.6-5.0) mmol/L Chloride 102.0 94 L (98-107) mmol/L Carbon Dioxide 21 (21-33) mmol/L Anion Gap 20 (10-20) BUN 62 H (7-21) mg/dL Creatinine 2.6 H (0.5-1.4) mg/dL Est GFR ( Amer) 25 Est GFR (Non-Af Amer) 21 POC Glucose (mg/dL) (65-110) mg/dL Random Glucose 110 (70-110) mg/dL Calcium 7.1 L (8.4-10.5) mg/dL Phosphorus 5.8 H (2.5-4.5) mg/dL Magnesium 1.8 (1.7-2.2) mg/dL Total Bilirubin 19.7 H* (0.2-1.3) mg/dL AST 357 H (14-36) U/L ALT 96 H (7-56) U/L Alkaline Phosphatase 668 H (38-126) U/L Total Protein 5.7 L (5.8-8.3) g/dL Albumin 2.6 L (3.0-4.8) g/dL Globulin 3.1 gm/dL Albumin/Globulin Ratio 0.8 L (1.1-1.8) UF Heparin Interp (Negative) Arterial Blood Potassium 3.6 (3.6-5.2) mmol/L IFTIKHAR UFH Low Dose 0.1 % Release IFTIKHAR UFH Low Dose 0.5 % Release IFTIKHAR UFH High Dose 100 % Release 11/25/16 11/24/16 11/24/16 Range/Units 04:21 21:45 19:24 WBC (4.5-11.0) 10^3/ul RBC (3.5-6.1) 10^6/uL Hgb (12.0-16.0) g/dL Hct (36.0-48.0) % MCV (80.0-105.0) fl MCH (25.0-35.0) pg MCHC (31.0-37.0) g/dl RDW (11.5-14.5) % Plt Count (120.0-450.0) 10^3/uL Baso % (Auto) (0.0-3.0) % Baso # (0.0-2.0) K/mm3 pCO2 (35-45) mm/Hg pO2 (80-100) mm/Hg HCO3 (21-28) mmol/L ABG pH (7.35-7.45) ABG Total CO2 (22-28) mmol.L ABG O2 Saturation (95-98) % ABG Base Excess (-2.0-3.0) mmol/L ABG Potassium (3.6-5.2) mmol/L Glucose (65-105) mg/dl Lactate (0.7-2.1) mmol/L FiO2 % Sodium (132-148) mmol/L Potassium (3.6-5.0) mmol/L Chloride (98-107) mmol/L Carbon Dioxide (21-33) mmol/L Anion Gap (10-20) BUN (7-21) mg/dL Creatinine (0.5-1.4) mg/dL Est GFR ( Amer) Est GFR (Non-Af Amer) POC Glucose (mg/dL) 124 H 128 H 116 H (65-110) mg/dL Random Glucose (70-110) mg/dL Calcium (8.4-10.5) mg/dL Phosphorus (2.5-4.5) mg/dL Magnesium (1.7-2.2) mg/dL Total Bilirubin (0.2-1.3) mg/dL AST (14-36) U/L ALT (7-56) U/L Alkaline Phosphatase (38-126) U/L Total Protein (5.8-8.3) g/dL Albumin (3.0-4.8) g/dL Globulin gm/dL Albumin/Globulin Ratio (1.1-1.8) UF Heparin Interp (Negative) Arterial Blood Potassium (3.6-5.2) mmol/L IFTIKHAR UFH Low Dose 0.1 % Release IFTIKHAR UFH Low Dose 0.5 % Release IFTIKHAR UFH High Dose 100 % Release 11/24/16 11/24/16 11/21/16 Range/Units 16:19 11:28 06:00 WBC (4.5-11.0) 10^3/ul RBC (3.5-6.1) 10^6/uL Hgb (12.0-16.0) g/dL Hct (36.0-48.0) % MCV (80.0-105.0) fl MCH (25.0-35.0) pg MCHC (31.0-37.0) g/dl RDW (11.5-14.5) % Plt Count (120.0-450.0) 10^3/uL Baso % (Auto) (0.0-3.0) % Baso # (0.0-2.0) K/mm3 pCO2 (35-45) mm/Hg pO2 (80-100) mm/Hg HCO3 (21-28) mmol/L ABG pH (7.35-7.45) ABG Total CO2 (22-28) mmol.L ABG O2 Saturation (95-98) % ABG Base Excess (-2.0-3.0) mmol/L ABG Potassium (3.6-5.2) mmol/L Glucose (65-105) mg/dl Lactate (0.7-2.1) mmol/L FiO2 % Sodium (132-148) mmol/L Potassium (3.6-5.0) mmol/L Chloride (98-107) mmol/L Carbon Dioxide (21-33) mmol/L Anion Gap (10-20) BUN (7-21) mg/dL Creatinine (0.5-1.4) mg/dL Est GFR ( Amer) Est GFR (Non-Af Amer) POC Glucose (mg/dL) 115 H 160 H (65-110) mg/dL Random Glucose (70-110) mg/dL Calcium (8.4-10.5) mg/dL Phosphorus (2.5-4.5) mg/dL Magnesium (1.7-2.2) mg/dL Total Bilirubin (0.2-1.3) mg/dL AST (14-36) U/L ALT (7-56) U/L Alkaline Phosphatase (38-126) U/L Total Protein (5.8-8.3) g/dL Albumin (3.0-4.8) g/dL Globulin gm/dL Albumin/Globulin Ratio (1.1-1.8) UF Heparin Interp Negative (Negative) Arterial Blood Potassium (3.6-5.2) mmol/L IFTIKHAR UFH Low Dose 0.1 0 % Release IFTIKHAR UFH Low Dose 0.5 0 % Release IFTIKHAR UFH High Dose 100 0 % Release Laboratory Results - last 24 hr 11/21/16 11/24/16 11/24/16 06:00 11:28 16:19 WBC RBC Hgb Hct MCV MCH MCHC RDW Plt Count Baso % (Auto) Baso # pCO2 pO2 HCO3 ABG pH ABG Total CO2 ABG O2 Saturation ABG Base Excess ABG Potassium Glucose Lactate FiO2 Sodium Potassium Chloride Carbon Dioxide Anion Gap BUN Creatinine Est GFR ( Amer) Est GFR (Non-Af Amer) POC Glucose (mg/dL) 160 H 115 H Random Glucose Calcium Phosphorus Magnesium Total Bilirubin AST ALT Alkaline Phosphatase Total Protein Albumin Globulin Albumin/Globulin Ratio UF Heparin Interp Negative Arterial Blood Potassium IFTIKHAR UFH Low Dose 0.1 0 IFTIKHAR UFH Low Dose 0.5 0 IFTIKHAR UFH High Dose 100 0 11/24/16 11/24/16 11/25/16 19:24 21:45 04:21 WBC RBC Hgb Hct MCV MCH MCHC RDW Plt Count Baso % (Auto) Baso # pCO2 pO2 HCO3 ABG pH ABG Total CO2 ABG O2 Saturation ABG Base Excess ABG Potassium Glucose Lactate FiO2 Sodium Potassium Chloride Carbon Dioxide Anion Gap BUN Creatinine Est GFR ( Amer) Est GFR (Non-Af Amer) POC Glucose (mg/dL) 116 H 128 H 124 H Random Glucose Calcium Phosphorus Magnesium Total Bilirubin AST ALT Alkaline Phosphatase Total Protein Albumin Globulin Albumin/Globulin Ratio UF Heparin Interp Arterial Blood Potassium IFTIKHAR UFH Low Dose 0.1 IFTIKHAR UFH Low Dose 0.5 IFTIKHAR UFH High Dose 100 11/25/16 11/25/16 11/25/16 05:20 05:20 06:08 WBC 67.6 H* RBC 2.45 L Hgb 7.6 L Hct 21.4 L MCV 87.3 MCH 31.0 MCHC 35.5 RDW 19.4 H Plt Count 36 L* Baso % (Auto) 0.3 Baso # 0.18 pCO2 31 L pO2 71.0 L HCO3 20.6 L ABG pH 7.43 ABG Total CO2 21.6 L ABG O2 Saturation 101.0 H ABG Base Excess -2.7 L ABG Potassium 3.6 Glucose 102 Lactate 2.6 H FiO2 36.0 Sodium 131 L 133.0 Potassium 4.0 Chloride 94 L 102.0 Carbon Dioxide 21 Anion Gap 20 BUN 62 H Creatinine 2.6 H Est GFR ( Amer) 25 Est GFR (Non-Af Amer) 21 POC Glucose (mg/dL) Random Glucose 110 Calcium 7.1 L Phosphorus 5.8 H Magnesium 1.8 Total Bilirubin 19.7 H* AST 357 H ALT 96 H Alkaline Phosphatase 668 H Total Protein 5.7 L Albumin 2.6 L Globulin 3.1 Albumin/Globulin Ratio 0.8 L UF Heparin Interp Arterial Blood Potassium 3.6 IFTIKHAR UFH Low Dose 0.1 IFTIKHAR UFH Low Dose 0.5 IFTIKHAR UFH High Dose 100 Fingerstick Blood Sugar Results: 128 Review of Systems - Review of Systems Systems not reviewed;Unavailable: Intubated Critical Care Progress Note - Nutrition Nutrition: Nutrition Category Date Time Status NPO Diet [DIET] Diets 11/18/16 Dinner Ordered Assessment/Plan - Assessment and Plan (Free Text) Assessment: This is a 36 yo AA F with PMH of Sickle cell disease, Bipolar disorder, cerebral palsy, Asthma, and CHF who initially presented to [facility] [place] with RUQ abd pain , and later developed Sickle cell crisis, Acute Chest Syndrome, GI bleed, and now has MODS. Denied for transfer to [facility] and [facility], not a candidate for liver transplant as per [facility]. Patient now on regular NC and tolerating well. Pending tunnel cath for long-term dialysis, PICC for TPN, and evaluation for LTAC. Prognosis remains poor. Plan: Neuro: -Patient off sedation -GCS 9 (E4 V1 M4); worsening mental status, no longer following any command or nodding yes/no to any questions -Head CT from 11/22 showing no acute intracranial abnormality, mild age related global parenchymal -Non-verbal, not following any commands, minimal spontaneous movements Pulm: -Pt changed from HFNC to NC 5L and tolerating well, satting > 92% consistently -Goal SaO2 > 92% -CXR with improved bilateral infiltrates, persisting cardiomegaly -ABG this AM reviewed, -Continue to monitor with daily CXR Cardio: -Shock requiring dual-pressor support resolved; hypotensive this AM so started on Vasopressin 0.03 -Hypovolemic shock likely 2/2 to GI bleed vs. Distributive shock likely 2/2 sepsis vs. increased viscosity 2/2 vaso-occlusive crisis -HR 90's - stable -Dobutamine IV for improved cardiac function in the setting of cardiomegaly with reduced EF (35-40% on June 2016 Echo) and hypotension -doppler b/l LE US negative GI: -Acute hepatic failure 2/2 acquired hemochromatosis from multiple blood transfusions vs. vaso-occlusive crisis vs. shock liver -Monitor LFTs, coags -GI has signed off -Protonix -Patient noted to not be candidate for liver transplant -As per GI, not a candidate for NGT or Gastrostomy tube, will need TPN; IR consulted for PICC line for TPN Renal: -Cr 2.6 today (yest 2.1) -s/p 4 rounds of HD and 2 rounds of exchange transfusion -Urine output decreased to 100cc, dark nya urine -given decreasing urine output and worsening renal function despite dialysis, concern for abdominal compartment syndrome, surgery reconsulted to assess and provide input -Monitor I and O's, monitor and replace electrolytes as needed -Nephrology following, plan for HD today -IR consulted for Tunnel cath for terminal operator HD Heme: -Coagulopathy 2/2 Hepatic Failure, s/p multiple transfusions -Heme/Onc (Dr. Palacios) following -INR of 2.08 yesterday -Fibrinogen 149 -HgbS pending ID: -WBC 67.6, Afebrile -ID following with recs of IV Vanc and Cefepime renally dosed with HD -C. diff antigen positive, antigen negative, flagyl IV Q8H -Influenza type A Ab titer 1:32 and Influenza type B Ab titer 1:16 signifying possible recent or past infection, will follow up with ID for recs Dispo: ICU, off pressors and now on NC and tolerating pending another HD; denied for transplant by [facility], denies for tertiary care transfer by [facility] and [facility] , prognosis poor; pending Tunnel cath for terminal operator dialysis, PICC line for TPN , then assessment for LTAC FEN: NPO, no feeds due to GI bleed, D10W 20cc/hr; Access: Peripheral IVs, R-chest port; NO NGT as per GI Consults: ID, Nephro, Heme-onc, GI (signed off), Cardio, Psych, Surgery, Palliative Code Status: Full code Case and plan discussed with attending, Dr. Newton <Rene Newton - Last Filed: 11/25/16 13:54> CCU Objective - Vital Signs / Intake & Output Vital Signs (Last 4 hours): Vital Signs Pulse Resp BP Pulse Ox 11/25/16 10:59 77/53 L 11/25/16 10:30 95 H 14 73/43 L 94 L 11/25/16 10:28 96 H 13 85/52 L 94 L 11/25/16 10:00 99 H 15 97/43 L 95 11/25/16 09:48 96 H 14 82/45 L 96 Intake and Output (Last 8hrs): Intake & Output 11/24/16 11/25/16 11/25/16 22:59 06:59 14:59 Intake Total 1235 436 Output Total 0 100 Balance 1235 336 Weight 187 lb Intake: IV 1035 436 D10W 240 240 Left Femoral 135 60 Left Hand 10 right chest wall 650 136 Oral 0 Other 200 Output: Urine 0 100 2-way Urethral 0 100 Urine, Voided 0 Emesis 0 Oral Regurgitation 0 Other 0 Other: # Voids Urine, Voided 0 # Bowel Movements 1 - Medications Active Medications: Active Medications Generic Name Dose Route Start Last Admin Trade Name Raghav PRN Reason Stop Dose Admin Albuterol/Ipratropium 3 ml 11/16/16 14:00 11/25/16 13:18 Duoneb 3 Mg/0.5 Mg (3 Ml) Ud IH 3 ml [id number] ARLETTE Administration Ergocalciferol 1 cap 11/12/16 10:00 11/19/16 14:47 Drisdol 50,000 Intl Units Cap PO Not Given QWK ARLETTE Folic Acid 1 mg 11/12/16 10:00 11/25/16 09:45 Folic Acid PO Not Given DAILY ARLETTE Furosemide 40 mg 11/16/16 10:00 11/17/16 09:00 Lasix IVP 40 mg DAILY ARLETTE Administration Heparin Sodium (Porcine) 5,000 units 11/13/16 01:15 11/16/16 21:44 Heparin SC Not Given Q12 ARLETTE Protocol Hydrocortisone Sodium Succinate 50 mg 11/19/16 07:15 11/25/16 05:27 Solu-Cortef IVP 50 mg Q8 ARLETTE Administration Hydroxyurea 500 mg 11/12/16 10:00 11/25/16 09:45 Hydrea PO Not Given DAILY ARLETTE Vancomycin HCl 1 gm in 250 mls @ 167 mls/hr 11/15/16 11:30 11/25/16 09:48 Vancomycin 1gm IVPB 167 mls/hr DAILY ARLETTE Administration Protocol Cefepime HCl 1 gm in 100 mls @ 100 mls/hr 11/15/16 13:15 11/24/16 14:11 Maxipime 1gm IVPB 100 mls/hr Q24H ARLETTE Administration Protocol Dextrose 500 mls @ 20 mls/hr 11/16/16 18:45 11/23/16 21:51 Dextrose 10% In Water IV Not Given .Q24H ARLETTE Metronidazole 500 mg in 100 mls @ 100 mls/hr 11/19/16 19:15 11/25/16 05:28 Flagyl IVPB 100 mls/hr Q8 ARLETTE Administration Protocol Dobutamine HCl/Dextrose 500 mg in 250 mls @ 5.647 mls/hr 11/20/16 07:32 11/25 05:28 Dobutamine/Dextrose 5% 500mg/250ml IV 5.647 mls/hr .Q24H PRN Administration TITRATE PER PROTOCOL Protocol 2.5 MCG/KG/MIN Vasopressin 20 units/ Dextrose 101 mls @ 9.09 mls/hr 11/25/16 10:45 11/25/16 10:59 IV 9.09 mls/hr .Q11H7M ARLETTE Administration Protocol 0.03 U/MIN Lactic Acid 0 ea 11/13/16 09:22 Lac-Hydrin 12% Cream (140 G) TOP DAILY PRN Wound Multivitamins/Minerals 1 tab 11/12/16 11:30 11/25/16 09:45 Therapeutic-M Tab PO Not Given DAILY ARLETTE Pantoprazole Sodium 40 mg 11/19/16 22:00 11/25/16 09:48 Protonix Inj IVP 40 mg Q12 ARLETTE Administration Rifaximin 550 mg 11/18/16 10:15 11/19/16 14:57 Xifaxan PO Not Given BID ARLETTE Protocol - Patient Studies Lab Studies: Lab Studies 11/25/16 11/25/16 11/25/16 Range/Units 13:22 13:20 06:08 WBC (4.5-11.0) 10^3/ul RBC (3.5-6.1) 10^6/uL Hgb (12.0-16.0) g/dL Hct (36.0-48.0) % MCV (80.0-105.0) fl MCH (25.0-35.0) pg MCHC (31.0-37.0) g/dl RDW (11.5-14.5) % Plt Count (120.0-450.0) 10^3/uL Baso % (Auto) (0.0-3.0) % Baso # (0.0-2.0) K/mm3 Corrected WBC (Man) (4.5-11.0) K/mm3 Neutrophils % (Manual) (50.0-70.0) % Band Neutrophils % (0-2) % Lymphocytes % (Manual) (22.0-35.0) % Monocytes % (Manual) (1.0-6.0) % Metamyelocytes % % Myelocytes % % Nucleated RBC % % Platelet Evaluation (NORMAL) Polychromasia Hypochromasia Poikilocytosis (manual Anisocytosis (manual) Spherocytes Sickle Cells Tear Drop Cells Ovalocytes Aleena Cells Schistocytes PT 23.0 H (9.9-11.8) Seconds INR 2.13 H (0.93-1.08) APTT 57.7 H (23.7-30.8) Seconds pCO2 31 L (35-45) mm/Hg pO2 43 71.0 L (80-100) mm/Hg HCO3 20.6 L (21-28) mmol/L ABG pH 7.43 (7.35-7.45) ABG Total CO2 21.6 L (22-28) mmol.L ABG O2 Saturation 101.0 H (95-98) % ABG Base Excess -2.7 L (-2.0-3.0) mmol/L ABG Potassium 3.6 (3.6-5.2) mmol/L VBG pH 7.39 (7.32-7.43) VBG pCO2 44.0 (40-60) VBG HCO3 26.6 (21-28) mmol/l VBG Total CO2 28.0 (22-28) mmol.L VBG O2 Sat (Calc) 84.5 H (40-65) % VBG Base Excess 1.2 (0.0-2.0) mmol/L VBG Potassium 3.7 (3.6-5.2) mmol/L Glucose 119 H 102 (65-105) mg/dl Lactate 1.9 2.6 H (0.7-2.1) mmol/L FiO2 21.0 36.0 % Sodium 133.0 133.0 (132-148) mmol/L Potassium (3.6-5.0) mmol/L Chloride 100.0 102.0 (98-107) mmol/L Carbon Dioxide (21-33) mmol/L Anion Gap (10-20) BUN (7-21) mg/dL Creatinine (0.5-1.4) mg/dL Est GFR ( Amer) Est GFR (Non-Af Amer) POC Glucose (mg/dL) (65-110) mg/dL Random Glucose (70-110) mg/dL Calcium (8.4-10.5) mg/dL Phosphorus (2.5-4.5) mg/dL Magnesium (1.7-2.2) mg/dL Total Bilirubin (0.2-1.3) mg/dL AST (14-36) U/L ALT (7-56) U/L Alkaline Phosphatase (38-126) U/L Total Protein (5.8-8.3) g/dL Albumin (3.0-4.8) g/dL Globulin gm/dL Albumin/Globulin Ratio (1.1-1.8) UF Heparin Interp (Negative) Arterial Blood Potassium 3.6 (3.6-5.2) mmol/L Venous Blood Potassium 3.7 (3.6-5.2) mmol/L IFTIKHAR UFH Low Dose 0.1 % Release IFTIKHAR UFH Low Dose 0.5 % Release IFTIKHAR UFH High Dose 100 % Release 11/25/16 11/25/16 11/25/16 Range/Units 05:20 05:20 04:21 WBC 67.6 H* (4.5-11.0) 10^3/ul RBC 2.45 L (3.5-6.1) 10^6/uL Hgb 7.6 L (12.0-16.0) g/dL Hct 21.4 L (36.0-48.0) % MCV 87.3 (80.0-105.0) fl MCH 31.0 (25.0-35.0) pg MCHC 35.5 (31.0-37.0) g/dl RDW 19.4 H (11.5-14.5) % Plt Count 36 L* (120.0-450.0) 10^3/uL Baso % (Auto) 0.3 (0.0-3.0) % Baso # 0.18 (0.0-2.0) K/mm3 Corrected WBC (Man) 13.0 H (4.5-11.0) K/mm3 Neutrophils % (Manual) 86 H (50.0-70.0) % Band Neutrophils % 2 (0-2) % Lymphocytes % (Manual) 4 L (22.0-35.0) % Monocytes % (Manual) 2 (1.0-6.0) % Metamyelocytes % 3 % Myelocytes % 3 % Nucleated RBC % 420 % Platelet Evaluation Low (NORMAL) Polychromasia Slight Hypochromasia 1+ Poikilocytosis (manual Slight Anisocytosis (manual) 2+ Spherocytes Slight Sickle Cells Slight Tear Drop Cells Slight Ovalocytes Slight Java Cells Slight Schistocytes Slight PT (9.9-11.8) Seconds INR (0.93-1.08) APTT (23.7-30.8) Seconds pCO2 (35-45) mm/Hg pO2 (80-100) mm/Hg HCO3 (21-28) mmol/L ABG pH (7.35-7.45) ABG Total CO2 (22-28) mmol.L ABG O2 Saturation (95-98) % ABG Base Excess (-2.0-3.0) mmol/L ABG Potassium (3.6-5.2) mmol/L VBG pH (7.32-7.43) VBG pCO2 (40-60) VBG HCO3 (21-28) mmol/l VBG Total CO2 (22-28) mmol.L VBG O2 Sat (Calc) (40-65) % VBG Base Excess (0.0-2.0) mmol/L VBG Potassium (3.6-5.2) mmol/L Glucose (65-105) mg/dl Lactate (0.7-2.1) mmol/L FiO2 % Sodium 131 L (132-148) mmol/L Potassium 4.0 (3.6-5.0) mmol/L Chloride 94 L (98-107) mmol/L Carbon Dioxide 21 (21-33) mmol/L Anion Gap 20 (10-20) BUN 62 H (7-21) mg/dL Creatinine 2.6 H (0.5-1.4) mg/dL Est GFR ( Amer) 25 Est GFR (Non-Af Amer) 21 POC Glucose (mg/dL) 124 H (65-110) mg/dL Random Glucose 110 (70-110) mg/dL Calcium 7.1 L (8.4-10.5) mg/dL Phosphorus 5.8 H (2.5-4.5) mg/dL Magnesium 1.8 (1.7-2.2) mg/dL Total Bilirubin 19.7 H* (0.2-1.3) mg/dL AST 357 H (14-36) U/L ALT 96 H (7-56) U/L Alkaline Phosphatase 668 H (38-126) U/L Total Protein 5.7 L (5.8-8.3) g/dL Albumin 2.6 L (3.0-4.8) g/dL Globulin 3.1 gm/dL Albumin/Globulin Ratio 0.8 L (1.1-1.8) UF Heparin Interp (Negative) Arterial Blood Potassium (3.6-5.2) mmol/L Venous Blood Potassium (3.6-5.2) mmol/L IFTIKHAR UFH Low Dose 0.1 % Release IFTIKHAR UFH Low Dose 0.5 % Release IFTIKHAR UFH High Dose 100 % Release 11/24/16 11/24/16 11/24/16 Range/Units 21:45 19:24 16:19 WBC (4.5-11.0) 10^3/ul RBC (3.5-6.1) 10^6/uL Hgb (12.0-16.0) g/dL Hct (36.0-48.0) % MCV (80.0-105.0) fl MCH (25.0-35.0) pg MCHC (31.0-37.0) g/dl RDW (11.5-14.5) % Plt Count (120.0-450.0) 10^3/uL Baso % (Auto) (0.0-3.0) % Baso # (0.0-2.0) K/mm3 Corrected WBC (Man) (4.5-11.0) K/mm3 Neutrophils % (Manual) (50.0-70.0) % Band Neutrophils % (0-2) % Lymphocytes % (Manual) (22.0-35.0) % Monocytes % (Manual) (1.0-6.0) % Metamyelocytes % % Myelocytes % % Nucleated RBC % % Platelet Evaluation (NORMAL) Polychromasia Hypochromasia Poikilocytosis (manual Anisocytosis (manual) Spherocytes Sickle Cells Tear Drop Cells Ovalocytes [place] Cells Schistocytes PT (9.9-11.8) Seconds INR (0.93-1.08) APTT (23.7-30.8) Seconds pCO2 (35-45) mm/Hg pO2 (80-100) mm/Hg HCO3 (21-28) mmol/L ABG pH (7.35-7.45) ABG Total CO2 (22-28) mmol.L ABG O2 Saturation (95-98) % ABG Base Excess (-2.0-3.0) mmol/L ABG Potassium (3.6-5.2) mmol/L VBG pH (7.32-7.43) VBG pCO2 (40-60) VBG HCO3 (21-28) mmol/l VBG Total CO2 (22-28) mmol.L VBG O2 Sat (Calc) (40-65) % VBG Base Excess (0.0-2.0) mmol/L VBG Potassium (3.6-5.2) mmol/L Glucose (65-105) mg/dl Lactate (0.7-2.1) mmol/L FiO2 % Sodium (132-148) mmol/L Potassium (3.6-5.0) mmol/L Chloride (98-107) mmol/L Carbon Dioxide (21-33) mmol/L Anion Gap (10-20) BUN (7-21) mg/dL Creatinine (0.5-1.4) mg/dL Est GFR ( Amer) Est GFR (Non-Af Amer) POC Glucose (mg/dL) 128 H 116 H 115 H (65-110) mg/dL Random Glucose (70-110) mg/dL Calcium (8.4-10.5) mg/dL Phosphorus (2.5-4.5) mg/dL Magnesium (1.7-2.2) mg/dL Total Bilirubin (0.2-1.3) mg/dL AST (14-36) U/L ALT (7-56) U/L Alkaline Phosphatase (38-126) U/L Total Protein (5.8-8.3) g/dL Albumin (3.0-4.8) g/dL Globulin gm/dL Albumin/Globulin Ratio (1.1-1.8) UF Heparin Interp (Negative) Arterial Blood Potassium (3.6-5.2) mmol/L Venous Blood Potassium (3.6-5.2) mmol/L IFTIKHAR UFH Low Dose 0.1 % Release IFTIKHAR UFH Low Dose 0.5 % Release IFTIKHAR UFH High Dose 100 % Release 11/21/16 Range/Units 06:00 WBC (4.5-11.0) 10^3/ul RBC (3.5-6.1) 10^6/uL Hgb (12.0-16.0) g/dL Hct (36.0-48.0) % MCV (80.0-105.0) fl MCH (25.0-35.0) pg MCHC (31.0-37.0) g/dl RDW (11.5-14.5) % Plt Count (120.0-450.0) 10^3/uL Baso % (Auto) (0.0-3.0) % Baso # (0.0-2.0) K/mm3 Corrected WBC (Man) (4.5-11.0) K/mm3 Neutrophils % (Manual) (50.0-70.0) % Band Neutrophils % (0-2) % Lymphocytes % (Manual) (22.0-35.0) % Monocytes % (Manual) (1.0-6.0) % Metamyelocytes % % Myelocytes % % Nucleated RBC % % Platelet Evaluation (NORMAL) Polychromasia Hypochromasia Poikilocytosis (manual Anisocytosis (manual) Spherocytes Sickle Cells Tear Drop Cells Ovalocytes [place] Cells Schistocytes PT (9.9-11.8) Seconds INR (0.93-1.08) APTT (23.7-30.8) Seconds pCO2 (35-45) mm/Hg pO2 (80-100) mm/Hg HCO3 (21-28) mmol/L ABG pH (7.35-7.45) ABG Total CO2 (22-28) mmol.L ABG O2 Saturation (95-98) % ABG Base Excess (-2.0-3.0) mmol/L ABG Potassium (3.6-5.2) mmol/L VBG pH (7.32-7.43) VBG pCO2 (40-60) VBG HCO3 (21-28) mmol/l VBG Total CO2 (22-28) mmol.L VBG O2 Sat (Calc) (40-65) % VBG Base Excess (0.0-2.0) mmol/L VBG Potassium (3.6-5.2) mmol/L Glucose (65-105) mg/dl Lactate (0.7-2.1) mmol/L FiO2 % Sodium (132-148) mmol/L Potassium (3.6-5.0) mmol/L Chloride (98-107) mmol/L Carbon Dioxide (21-33) mmol/L Anion Gap (10-20) BUN (7-21) mg/dL Creatinine (0.5-1.4) mg/dL Est GFR ( Amer) Est GFR (Non-Af Amer) POC Glucose (mg/dL) (65-110) mg/dL Random Glucose (70-110) mg/dL Calcium (8.4-10.5) mg/dL Phosphorus (2.5-4.5) mg/dL Magnesium (1.7-2.2) mg/dL Total Bilirubin (0.2-1.3) mg/dL AST (14-36) U/L ALT (7-56) U/L Alkaline Phosphatase (38-126) U/L Total Protein (5.8-8.3) g/dL Albumin (3.0-4.8) g/dL Globulin gm/dL Albumin/Globulin Ratio (1.1-1.8) UF Heparin Interp Negative (Negative) Arterial Blood Potassium (3.6-5.2) mmol/L Venous Blood Potassium (3.6-5.2) mmol/L IFTIKHAR UFH Low Dose 0.1 0 % Release IFTIKHAR UFH Low Dose 0.5 0 % Release IFTIKHAR UFH High Dose 100 0 % Release Laboratory Results - last 24 hr 11/21/16 11/24/16 11/24/16 06:00 16:19 19:24 WBC RBC Hgb Hct MCV MCH MCHC RDW Plt Count Baso % (Auto) Baso # Corrected WBC (Man) Neutrophils % (Manual) Band Neutrophils % Lymphocytes % (Manual) Monocytes % (Manual) Metamyelocytes % Myelocytes % Nucleated RBC % Platelet Evaluation Polychromasia Hypochromasia Poikilocytosis (manual Anisocytosis (manual) Spherocytes Sickle Cells Tear Drop Cells Ovalocytes [place] Cells Schistocytes PT INR APTT pCO2 pO2 HCO3 ABG pH ABG Total CO2 ABG O2 Saturation ABG Base Excess ABG Potassium VBG pH VBG pCO2 VBG HCO3 VBG Total CO2 VBG O2 Sat (Calc) VBG Base Excess VBG Potassium Glucose Lactate FiO2 Sodium Potassium Chloride Carbon Dioxide Anion Gap BUN Creatinine Est GFR ( Amer) Est GFR (Non-Af Amer) POC Glucose (mg/dL) 115 H 116 H Random Glucose Calcium Phosphorus Magnesium Total Bilirubin AST ALT Alkaline Phosphatase Total Protein Albumin Globulin Albumin/Globulin Ratio UF Heparin Interp Negative Arterial Blood Potassium Venous Blood Potassium IFTIKHAR UFH Low Dose 0.1 0 IFTIKHAR UFH Low Dose 0.5 0 IFTIKHAR UFH High Dose 100 0 11/24/16 11/25/16 11/25/16 21:45 04:21 05:20 WBC 67.6 H* RBC 2.45 L Hgb 7.6 L Hct 21.4 L MCV 87.3 MCH 31.0 MCHC 35.5 RDW 19.4 H Plt Count 36 L* Baso % (Auto) 0.3 Baso # 0.18 Corrected WBC (Man) 13.0 H Neutrophils % (Manual) 86 H Band Neutrophils % 2 Lymphocytes % (Manual) 4 L Monocytes % (Manual) 2 Metamyelocytes % 3 Myelocytes % 3 Nucleated RBC % 420 Platelet Evaluation Low Polychromasia Slight Hypochromasia 1+ Poikilocytosis (manual Slight Anisocytosis (manual) 2+ Spherocytes Slight Sickle Cells Slight Tear Drop Cells Slight Ovalocytes Slight [place] Cells Slight Schistocytes Slight PT INR APTT pCO2 pO2 HCO3 ABG pH ABG Total CO2 ABG O2 Saturation ABG Base Excess ABG Potassium VBG pH VBG pCO2 VBG HCO3 VBG Total CO2 VBG O2 Sat (Calc) VBG Base Excess VBG Potassium Glucose Lactate FiO2 Sodium Potassium Chloride Carbon Dioxide Anion Gap BUN Creatinine Est GFR ( Amer) Est GFR (Non-Af Amer) POC Glucose (mg/dL) 128 H 124 H Random Glucose Calcium Phosphorus Magnesium Total Bilirubin AST ALT Alkaline Phosphatase Total Protein Albumin Globulin Albumin/Globulin Ratio UF Heparin Interp Arterial Blood Potassium Venous Blood Potassium IFTIKHAR UFH Low Dose 0.1 IFTIKHAR UFH Low Dose 0.5 IFTIKHAR UFH High Dose 100 11/25/16 11/25/16 11/25/16 05:20 06:08 13:20 WBC RBC Hgb Hct MCV MCH MCHC RDW Plt Count Baso % (Auto) Baso # Corrected WBC (Man) Neutrophils % (Manual) Band Neutrophils % Lymphocytes % (Manual) Monocytes % (Manual) Metamyelocytes % Myelocytes % Nucleated RBC % Platelet Evaluation Polychromasia Hypochromasia Poikilocytosis (manual Anisocytosis (manual) Spherocytes Sickle Cells Tear Drop Cells Ovalocytes [place] Cells Schistocytes PT 23.0 H INR 2.13 H APTT 57.7 H pCO2 31 L pO2 71.0 L HCO3 20.6 L ABG pH 7.43 ABG Total CO2 21.6 L ABG O2 Saturation 101.0 H ABG Base Excess -2.7 L ABG Potassium 3.6 VBG pH VBG pCO2 VBG HCO3 VBG Total CO2 VBG O2 Sat (Calc) VBG Base Excess VBG Potassium Glucose 102 Lactate 2.6 H FiO2 36.0 Sodium 131 L 133.0 Potassium 4.0 Chloride 94 L 102.0 Carbon Dioxide 21 Anion Gap 20 BUN 62 H Creatinine 2.6 H Est GFR ( Amer) 25 Est GFR (Non-Af Amer) 21 POC Glucose (mg/dL) Random Glucose 110 Calcium 7.1 L Phosphorus 5.8 H Magnesium 1.8 Total Bilirubin 19.7 H* AST 357 H ALT 96 H Alkaline Phosphatase 668 H Total Protein 5.7 L Albumin 2.6 L Globulin 3.1 Albumin/Globulin Ratio 0.8 L UF Heparin Interp Arterial Blood Potassium 3.6 Venous Blood Potassium IFTIKHAR UFH Low Dose 0.1 IFTIKHAR UFH Low Dose 0.5 IFTIKHAR UFH High Dose 100 11/25/16 13:22 WBC RBC Hgb Hct MCV MCH MCHC RDW Plt Count Baso % (Auto) Baso # Corrected WBC (Man) Neutrophils % (Manual) Band Neutrophils % Lymphocytes % (Manual) Monocytes % (Manual) Metamyelocytes % Myelocytes % Nucleated RBC % Platelet Evaluation Polychromasia Hypochromasia Poikilocytosis (manual Anisocytosis (manual) Spherocytes Sickle Cells Tear Drop Cells Ovalocytes [place] Cells Schistocytes PT INR APTT pCO2 pO2 43 HCO3 ABG pH ABG Total CO2 ABG O2 Saturation ABG Base Excess ABG Potassium VBG pH 7.39 VBG pCO2 44.0 VBG HCO3 26.6 VBG Total CO2 28.0 VBG O2 Sat (Calc) 84.5 H VBG Base Excess 1.2 VBG Potassium 3.7 Glucose 119 H Lactate 1.9 FiO2 21.0 Sodium 133.0 Potassium Chloride 100.0 Carbon Dioxide Anion Gap BUN Creatinine Est GFR ( Amer) Est GFR (Non-Af Amer) POC Glucose (mg/dL) Random Glucose Calcium Phosphorus Magnesium Total Bilirubin AST ALT Alkaline Phosphatase Total Protein Albumin Globulin Albumin/Globulin Ratio UF Heparin Interp Arterial Blood Potassium Venous Blood Potassium 3.7 IFTIKHAR UFH Low Dose 0.1 IFTIKHAR UFH Low Dose 0.5 IFTIKHAR UFH High Dose 100 Critical Care Progress Note - Nutrition Nutrition: Nutrition Category Date Time Status NPO Diet [DIET] Diets 11/18/16 Dinner Ordered Attending/Attestation - Attestation I have personally seen and examined this patient.: Yes I have fully participated in the care of the patient.: Yes I have reviewed all pertinent clinical information: Yes Notes (Text): 11/25/16 13:39 36 yo female recovering from distributive shock with MOSF. maintian ventilation and gas exchange well, BP is borderline. Might be multifactorial and may or may not represent shock pathophysiology. Her lactic acidosis substantially improved , she was extubated few days ago successfully, however her MELITON and AMS persist. Her abdo is soft, however nephro service brought up concern for ACS->even though I doubt it, will get surgery to comment on it and rule that out. Patient is afebrile and no leukocytosis (on manual exam)-->unlikely septic shock, besides patient is still on abx to complete the course. CXR: improved infiltrates, no PTX. Patient is known to have moderate LV systolic dysfunction and is on Dobutrex now, which she tolerates pretty well. Patient is on stress dose steroids taper and unlikely have adrenal insufficiency at present time. Patient might have benefited from midodrine, but NPO as failed swallow study and no NGT as per GI service. Will try vasopressin to see if BP would improve. Spoke with Dr. Perez-->may need correction HD: will get tunnelled catheter in and will remove temporary one. Patient 10 days is NPO, will start TPN (see above ), will get dedicated PICC line. DVT/GI prophylaxis. ccm time 40 min
[2016-11-25 12:20] LABS: BAND 2 % (0-2); METAMYELOCYTE 3 %; MYELOCYTE 3 %; NEUTROPHIL 86 % (50.0-70.0)
[2016-11-25 12:21] LABS: ANISOCYTOSIS 2+; HYPOCHROMIA 1+; PLATELET ESTIMATE LOW (NORMAL); POIKILOCYTOSIS SLIGHT; POLYCHROMASIA SLIGHT
[2016-11-25 12:22] LABS: SPHEROCYTE SLIGHT; TEAR DROP CELLS SLIGHT
[2016-11-25 12:23] LABS: BURR CELLS SLIGHT; OVALOCYTES SLIGHT
[2016-11-25 12:24] LABS: NUCLEATED RED BLOOD CELL 420 %
[2016-11-25 13:29] LABS: VENOUS BLOOD GAS BASE EXCESS 1.2 mmol/L (0.0-2.0); VENOUS BLOOD PH 7.39 (7.32-7.43)
[2016-11-25 13:34] LABS: INR 2.13 (0.93-1.08); PARTIAL THROMBOPLASTIN TIME 57.7 Seconds (23.7-30.8)
--- NOTE | 2016-11-25 14:48 | CP.PCM.CON ---
History of Present Illness - History of Present Illness History of Present Illness: General Surgery Progress Note for Dr. Chandra Reason for consult: suspected abdominal compartment syndrome 36 F with PMH of Renal failure requiring HD, Cerebral Palsy, CHF, Sickle cell disease, Bipolar Disorder, Asthma, Liver Cirrhosis with complicated hospital course. 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 She is s/p exchange transfusion. Patient was recently extubated. Surgery was reconsulted for suspected abdominal compartment syndrome. Patient has had decreasing urine output in last few days currently 100c/24hrs. Patient is nonverbal and does not answer question eventhough she reacts to verbal and nonverbal stimuli. ROS unobtainable. PMH: Sickle Cell Disease, Bipolar Disorder, Asthma, Cerebral Palsy, CHF, Liver Cirrhosis, Renal failure requiring HD PSH: Cholecystectomy, Portacath, dialysis catheter placement Allergy: Tylenol, ASA, Oxycodone, Morphine, mushroom, coconut Review of Systems - Review of Systems Systems not reviewed;Unavailable: Acuity of Condition Past Patient History - Infectious Disease Hx of Infectious Diseases: None - Tetanus Immunizations Tetanus Immunization: Up to Date - Past Medical History & Family History Past Medical History?: Yes - Past Social History Smoking Status: Former Smoker - CARDIAC Hx Cardiac Disorders: Yes Hx Hypertension: Yes - PULMONARY Hx Asthma: Yes - NEUROLOGICAL Hx Neurological Disorder: No Other/Comment: CP - HEENT Hx HEENT Problems: No - RENAL Hx Chronic Kidney Disease: No - ENDOCRINE/METABOLIC Hx Endocrine Disorders: Yes - HEMATOLOGICAL/ONCOLOGICAL Hx Blood Transfusions: Yes Hx Blood Transfusion Reaction: No - INTEGUMENTARY Hx Dermatological Problems: Yes Hx Eczema: Yes - MUSCULOSKELETAL/RHEUMATOLOGICAL Hx Falls: No - GASTROINTESTINAL Hx Gastrointestinal Disorders: Yes Hx Gastroesophageal Reflux: Yes Hx Pancreatitis: Yes - GENITOURINARY/GYNECOLOGICAL Hx Genitourinary Disorders: Yes Hx Urinary Tract Infection: Yes - PSYCHIATRIC Hx Psychophysiologic Disorder: Yes Hx Anxiety: Yes Hx Bipolar Disorder: Yes Hx Substance Use: No - SURGICAL HISTORY Hx Surgeries: Yes - ANESTHESIA Hx Anesthesia Reactions: No Hx Malignant Hyperthermia: No Meds Allergies/Adverse Reactions: Allergies Allergy/AdvReac Type Severity Reaction Status Date / Time acetaminophen Allergy RASH Verified 09/24/16 12:42 aspirin Allergy RASH Verified 09/24/16 12:42 coconut oil Allergy RASH Verified 09/24/16 12:42 morphine Allergy SWELLING Verified 09/24/16 12:42 mushroom Allergy URTICARIA Verified 09/24/16 12:42 oxycodone Allergy RASH Verified 09/24/16 12:42 - Medications Medications: Current Medications Albuterol/Ipratropium (Duoneb 3 Mg/0.5 Mg (3 Ml) Ud) 3 ml [facility] [id number] Last Admin: 11/25/16 13:18 Dose: 3 ml Ergocalciferol (Drisdol 50,000 Intl Units Cap) 1 cap PO QWK [facility] Last Admin: 11/19/16 14:47 Dose: Not Given Folic Acid (Folic Acid) 1 mg PO DAILY [facility] Last Admin: 11/25/16 09:45 Dose: Not Given Furosemide (Lasix) 40 mg IVP DAILY [facility] Last Admin: 11/17/16 09:00 Dose: 40 mg Heparin Sodium (Porcine) (Heparin) 5,000 units SC Q12 [facility] PRN Reason: Protocol Last Admin: 11/16/16 21:44 Dose: Not Given Hydrocortisone Sodium Succinate (Solu-Cortef) 50 mg IVP Q12H [facility] Hydroxyurea (Hydrea) 500 mg PO DAILY [facility] Last Admin: 11/25/16 09:45 Dose: Not Given Vancomycin HCl (Vancomycin 1gm) 1 gm in 250 mls @ 167 mls/hr IVPB DAILY [facility] PRN Reason: Protocol Last Admin: 11/25/16 09:48 Dose: 167 mls/hr Cefepime HCl (Maxipime 1gm) 1 gm in 100 mls @ 100 mls/hr IVPB Q24H [facility] PRN Reason: Protocol Last Admin: 11/24/16 14:11 Dose: 100 mls/hr Dextrose (Dextrose 10% In Water) 500 mls @ 20 mls/hr IV .Q24H [facility] Last Admin: 11/23/16 21:51 Dose: Not Given Metronidazole (Flagyl) 500 mg in 100 mls @ 100 mls/hr IVPB Q8 [facility] PRN Reason: Protocol Last Admin: 11/25/16 05:28 Dose: 100 mls/hr Dobutamine HCl/Dextrose (Dobutamine/Dextrose 5% 500mg/250ml) 500 mg in 250 mls @ 5.647 mls/hr IV .Q24H PRN; Protocol; 2.5 MCG/KG/MIN PRN Reason: TITRATE PER PROTOCOL Last Admin: 11/25/16 05:28 Dose: 5.647 mls/hr Vasopressin 20 units/ Dextrose 101 mls @ 9.09 mls/hr IV .Q11H7M ARLETTE; 0.03 U/MIN PRN Reason: Protocol Last Admin: 11/25/16 10:59 Dose: 9.09 mls/hr Lactic Acid (Lac-Hydrin 12% Cream (140 G)) 0 ea TOP DAILY PRN PRN Reason: Wound Multivitamins/Minerals (Therapeutic-M Tab) 1 tab PO DAILY [facility]LETT[facility] Last Admin: 11/25/16 09:45 Dose: Not Given Pantoprazole Sodium (Protonix Inj) 40 mg IVP Q12 [facility] Last Admin: 11/25/16 09:48 Dose: 40 mg Rifaximin (Xifaxan) 550 mg PO BID [facility] PRN Reason: Protocol Last Admin: 11/19/16 14:57 Dose: Not Given Physical Exam - Constitutional Appears: No Acute Distress, Chronically Ill - Head Exam Head Exam: ATRAUMATIC, NORMOCEPHALIC - ENT Exam ENT Exam: Mucous Membranes Moist - Respiratory Exam Respiratory Exam: NORMAL BREATHING PATTERN - Cardiovascular Exam Cardiovascular Exam: REGULAR RHYTHM - GI/Abdominal Exam GI & Abdominal Exam: Distended, Firm, Tenderness (diffuse). absent: Guarding, Rebound - Extremities Exam Extremities exam: Positive for: pedal edema Additional comments: lower extremities mildly contracted - Neurological Exam Neurological exam: Alert - Psychiatric Exam Psychiatric exam: Flat Affect - Skin Skin Exam: Dry, Warm Results - Vital Signs Recent Vital Signs: Last Vital Signs Temp 98.2 F 11/25/16 12:00 Pulse 92 H 11/25/16 12:00 Resp 12 11/25/16 12:00 BP 91/46 L 11/25/16 12:00 Pulse Ox 95 11/25/16 12:00 - Labs Result Diagrams: 11/26/16 05:25 11/26/16 05:25 Labs: Laboratory Results - last 24 hr 11/21/16 11/24/16 11/24/16 06:00 16:19 19:24 WBC RBC Hgb Hct MCV MCH MCHC RDW Plt Count Baso % (Auto) Baso # Corrected WBC (Man) Neutrophils % (Manual) Band Neutrophils % Lymphocytes % (Manual) Monocytes % (Manual) Metamyelocytes % Myelocytes % Nucleated RBC % Platelet Evaluation Polychromasia Hypochromasia Poikilocytosis (manual Anisocytosis (manual) Spherocytes Sickle Cells Tear Drop Cells Ovalocytes [place] Cells Schistocytes PT INR APTT pCO2 pO2 HCO3 ABG pH ABG Total CO2 ABG O2 Saturation ABG Base Excess ABG Potassium VBG pH VBG pCO2 VBG HCO3 VBG Total CO2 VBG O2 Sat (Calc) VBG Base Excess VBG Potassium Glucose Lactate FiO2 Sodium Potassium Chloride Carbon Dioxide Anion Gap BUN Creatinine Est GFR ( Amer) Est GFR (Non-Af Amer) POC Glucose (mg/dL) 115 H 116 H Random Glucose Calcium Phosphorus Magnesium Total Bilirubin AST ALT Alkaline Phosphatase Total Protein Albumin Globulin Albumin/Globulin Ratio UF Heparin Interp Negative Arterial Blood Potassium Venous Blood Potassium IFTIKHAR UFH Low Dose 0.1 0 IFTIKHAR UFH Low Dose 0.5 0 IFTIKHAR UFH High Dose 100 0 11/24/16 11/25/16 11/25/16 21:45 04:21 05:20 WBC 67.6 H* RBC 2.45 L Hgb 7.6 L Hct 21.4 L MCV 87.3 MCH 31.0 MCHC 35.5 RDW 19.4 H Plt Count 36 L* Baso % (Auto) 0.3 Baso # 0.18 Corrected WBC (Man) 13.0 H Neutrophils % (Manual) 86 H Band Neutrophils % 2 Lymphocytes % (Manual) 4 L Monocytes % (Manual) 2 Metamyelocytes % 3 Myelocytes % 3 Nucleated RBC % 420 Platelet Evaluation Low Polychromasia Slight Hypochromasia 1+ Poikilocytosis (manual Slight Anisocytosis (manual) 2+ Spherocytes Slight Sickle Cells Slight Tear Drop Cells Slight Ovalocytes Slight [place] Cells Slight Schistocytes Slight PT INR APTT pCO2 pO2 HCO3 ABG pH ABG Total CO2 ABG O2 Saturation ABG Base Excess ABG Potassium VBG pH VBG pCO2 VBG HCO3 VBG Total CO2 VBG O2 Sat (Calc) VBG Base Excess VBG Potassium Glucose Lactate FiO2 Sodium Potassium Chloride Carbon Dioxide Anion Gap BUN Creatinine Est GFR ( Amer) Est GFR (Non-Af Amer) POC Glucose (mg/dL) 128 H 124 H Random Glucose Calcium Phosphorus Magnesium Total Bilirubin AST ALT Alkaline Phosphatase Total Protein Albumin Globulin Albumin/Globulin Ratio UF Heparin Interp Arterial Blood Potassium Venous Blood Potassium IFTIKHAR UFH Low Dose 0.1 IFTIKHAR UFH Low Dose 0.5 IFTIKHAR UFH High Dose 100 10/04/1211/25/16 11/25/16 05:20 06:08 13:20 WBC RBC Hgb Hct MCV MCH MCHC RDW Plt Count Baso % (Auto) Baso # Corrected WBC (Man) Neutrophils % (Manual) Band Neutrophils % Lymphocytes % (Manual) Monocytes % (Manual) Metamyelocytes % Myelocytes % Nucleated RBC % Platelet Evaluation Polychromasia Hypochromasia Poikilocytosis (manual Anisocytosis (manual) Spherocytes Sickle Cells Tear Drop Cells Ovalocytes [place] Cells Schistocytes PT 23.0 H INR 2.13 H APTT 57.7 H pCO2 31 L pO2 71.0 L HCO3 20.6 L ABG pH 7.43 ABG Total CO2 21.6 L ABG O2 Saturation 101.0 H ABG Base Excess -2.7 L ABG Potassium 3.6 VBG pH VBG pCO2 VBG HCO3 VBG Total CO2 VBG O2 Sat (Calc) VBG Base Excess VBG Potassium Glucose 102 Lactate 2.6 H FiO2 36.0 Sodium 131 L 133.0 Potassium 4.0 Chloride 94 L 102.0 Carbon Dioxide 21 Anion Gap 20 BUN 62 H Creatinine 2.6 H Est GFR ( Amer) 25 Est GFR (Non-Af Amer) 21 POC Glucose (mg/dL) Random Glucose 110 Calcium 7.1 L Phosphorus 5.8 H Magnesium 1.8 Total Bilirubin 19.7 H* AST 357 H ALT 96 H Alkaline Phosphatase 668 H Total Protein 5.7 L Albumin 2.6 L Globulin 3.1 Albumin/Globulin Ratio 0.8 L UF Heparin Interp Arterial Blood Potassium 3.6 Venous Blood Potassium IFTIKHAR UFH Low Dose 0.1 IFTIKHAR UFH Low Dose 0.5 IFTIKHAR UFH High Dose 100 11/25/16 13:22 WBC RBC Hgb Hct MCV MCH MCHC RDW Plt Count Baso % (Auto) Baso # Corrected WBC (Man) Neutrophils % (Manual) Band Neutrophils % Lymphocytes % (Manual) Monocytes % (Manual) Metamyelocytes % Myelocytes % Nucleated RBC % Platelet Evaluation Polychromasia Hypochromasia Poikilocytosis (manual Anisocytosis (manual) Spherocytes Sickle Cells Tear Drop Cells Ovalocytes [place] Cells Schistocytes PT INR APTT pCO2 pO2 43 HCO3 ABG pH ABG Total CO2 ABG O2 Saturation ABG Base Excess ABG Potassium VBG pH 7.39 VBG pCO2 44.0 VBG HCO3 26.6 VBG Total CO2 28.0 VBG O2 Sat (Calc) 84.5 H VBG Base Excess 1.2 VBG Potassium 3.7 Glucose 119 H Lactate 1.9 FiO2 21.0 Sodium 133.0 Potassium Chloride 100.0 Carbon Dioxide Anion Gap BUN Creatinine Est GFR ( Amer) Est GFR (Non-Af Amer) POC Glucose (mg/dL) Random Glucose Calcium Phosphorus Magnesium Total Bilirubin AST ALT Alkaline Phosphatase Total Protein Albumin Globulin Albumin/Globulin Ratio UF Heparin Interp Arterial Blood Potassium Venous Blood Potassium 3.7 IFTIKHAR UFH Low Dose 0.1 IFTIKHAR UFH Low Dose 0.5 IFTIKHAR UFH High Dose 100 Assessment & Plan - Assessment and Plan (Free Text) Plan: 36 F with suspected abdominal compartment syndrome -CT abd/pelvis -Repeat abdominal pressure -Thrombocytopenia, Anemia, Coagulopathic, and history of severe sickle cell disease -Patient is poor surgical candidate -further recs as per Dr. Prateek Benoit PGY1
--- NOTE | 2016-11-25 15:27 | CP.PCM.PN ---
<Landon Melchor - Last Filed: 11/25/16 19:00> Subjective - Date & Time of Evaluation Date of Evaluation: 11/25/16 Time of Evaluation: 07:24 - Subjective Subjective: Patient was seen and examined at bedside this morning. The patient is able to track, however doesn't respond to command. The remainder of ROS unobtainable due to current clinical condition. Objective - Vital Signs/Intake and Output Vital Signs (last 24 hours): Temp Pulse Resp BP Pulse Ox 98.2 F 92 H 12 91/46 L 95 11/25/16 12:00 11/25/16 12:00 11/25/16 12:00 11/25/16 12:00 11/25/16 12:00 Intake and Output: 11/25/16 11/25/16 06:59 18:59 Intake Total 436 Output Total 100 Balance 336 - Medications Medications: Current Medications Albuterol/Ipratropium (Duoneb 3 Mg/0.5 Mg (3 Ml) Ud) 3 ml IH [id number] [facility] Last Admin: 11/25/16 13:18 Dose: 3 ml Ergocalciferol (Drisdol 50,000 Intl Units Cap) 1 cap PO QWK [facility] Last Admin: 11/19/16 14:47 Dose: Not Given Folic Acid (Folic Acid) 1 mg PO DAILY [facility] Last Admin: 11/25/16 09:45 Dose: Not Given Furosemide (Lasix) 40 mg IVP DAILY [facility] Last Admin: 11/17/16 09:00 Dose: 40 mg Heparin Sodium (Porcine) (Heparin) 5,000 units SC Q12 [facility] PRN Reason: Protocol Last Admin: 11/16/16 21:44 Dose: Not Given Hydrocortisone Sodium Succinate (Solu-Cortef) 50 mg IVP Q12H [facility] Hydroxyurea (Hydrea) 500 mg PO DAILY [facility] Last Admin: 11/25/16 09:45 Dose: Not Given Vancomycin HCl (Vancomycin 1gm) 1 gm in 250 mls @ 167 mls/hr IVPB DAILY [facility] PRN Reason: Protocol Last Admin: 11/25/16 09:48 Dose: 167 mls/hr Cefepime HCl (Maxipime 1gm) 1 gm in 100 mls @ 100 mls/hr IVPB Q24H [facility] PRN Reason: Protocol Last Admin: 11/24/16 14:11 Dose: 100 mls/hr Dextrose (Dextrose 10% In Water) 500 mls @ 20 mls/hr IV .Q24H [facility] Last Admin: 11/23/16 21:51 Dose: Not Given Metronidazole (Flagyl) 500 mg in 100 mls @ 100 mls/hr IVPB Q8 [facility] PRN Reason: Protocol Last Admin: 11/25/16 05:28 Dose: 100 mls/hr Dobutamine HCl/Dextrose (Dobutamine/Dextrose 5% 500mg/250ml) 500 mg in 250 mls @ 5.647 mls/hr IV .Q24H PRN; Protocol; 2.5 MCG/KG/MIN PRN Reason: TITRATE PER PROTOCOL Last Admin: 11/25/16 05:28 Dose: 5.647 mls/hr Vasopressin 20 units/ Dextrose 101 mls @ 9.09 mls/hr IV .Q11H7M [facility]; 0.03 U/MIN PRN Reason: Protocol Last Admin: 11/25/16 10:59 Dose: 9.09 mls/hr Lactic Acid (Lac-Hydrin 12% Cream (140 G)) 0 ea TOP DAILY PRN PRN Reason: Wound Multivitamins/Minerals (Therapeutic-M Tab) 1 tab PO DAILY [facility] Last Admin: 11/25/16 09:45 Dose: Not Given Pantoprazole Sodium (Protonix Inj) 40 mg IVP Q12 [facility] Last Admin: 11/25/16 09:48 Dose: 40 mg Rifaximin (Xifaxan) 550 mg PO BID [facility] PRN Reason: Protocol Last Admin: 11/19/16 14:57 Dose: Not Given - Labs Labs: 11/25/16 05:20 11/25/16 05:20 PT 23.0 Seconds (9.9-11.8) H 11/25/16 13:20 INR 2.13 (0.93-1.08) H 11/25/16 13:20 APTT 57.7 Seconds (23.7-30.8) H 11/25/16 13:20 - Head Exam Head Exam: ATRAUMATIC, NORMAL INSPECTION, NORMOCEPHALIC - Eye Exam Eye Exam: Normal appearance, PERRL. absent: Periorbital tenderness Pupil Exam: PERRL - Neck Exam Neck Exam: Normal Inspection - Respiratory Exam Respiratory Exam: Decreased Breath Sounds - Cardiovascular Exam Cardiovascular Exam: REGULAR RHYTHM, +S1, +S2 - GI/Abdominal Exam GI & Abdominal Exam: Firm, Rigid - Extremities Exam Extremities Exam: Joint Swelling, Pedal Edema - Neurological Exam Neurological Exam: Altered Assessment and Plan - Assessment and Plan (Free Text) Assessment: 36 y/o F with PMH of Sickle cell disease, Bipolar disorder, Cerebral palsy, Asthma, CHF here for likely vaso-occlusive crisis complicated by progressive liver failure, intrahepatic cholestasis. Hospital course complicated by thrombocytopenia, coagulopathy, leukocytosis, MELITON, hepatic encephalopathy. On Dobutamine support. Plan: 1. Likely Vaso-occlusive crisis -secondary to sickle cell disease -Monitor Hb closely -will transfuse if Hb <7 -Continue Hydroxyurea -Heme following, awaiting recs -transfusion exchange as per Heme and Nephro -Surgery re-consulted. Will f/u with rec's tomorrow. 2. Liver disease -Patient not a candidate for liver transplantation at this time as per discussion with [facility] and [facility]. -Family doesn't want Hospice care. LTEC placement pending. -Transaminitis -Thrombocytopenia -Hyperbilirubinemia elevated and stable. Intrahepatic -Hepatology signed off -prognosis poor 3. Upper GI bleed -likely secondary to OG trauma -S/p bedside EGD on 11/19 -Bleed cauterized and injected -Continue to monitor Hb, stable -Protonix 40 q12 daily 4. Possible Colitis -CT - evidence of possible colitis -C.Diff antigen positive, toxin negative -repeat stool cdiff -Surgery following -Low suspicion for colitis -Patient is not a candidate for surgery 5. MELITON -Nephro following -Continues to be oliguric -Dialysis recs as per nephro -Bladder pressure increased yesterday, not a surgical candidate. 6. CHF -Continue Lasix 40 mg daily -on Dobutamine drip -EF - 39.7% in June 2016 -Cardiology following 7. Respiratory failure -Extubated on 11/21, on High flow O2 -Continue breathing treatments 8. Leukocytosis -Blood cultures negative -Urine cultures negative -CDiff antigen positive, toxin negative -awaiting repeat stool cdiff -ID following -Continue IV Abx 9. Electrolyte abnormalities Replete as needed. Will follow with serial cmp's. 10. PPx Protonix SCDs <Elzbieta ANGUIANO,Jena - Last Filed: 11/26/16 11:43> Objective - Vital Signs/Intake and Output Vital Signs (last 24 hours): Temp Pulse Resp BP Pulse Ox 97.9 F 108 H 17 95/53 L 97 11/26/16 11:05 11/26/16 11:05 11/26/16 11:05 11/26/16 11:05 11/26/16 06:00 Intake and Output: 11/26/16 11/26/16 06:59 18:59 Intake Total 862 322 Output Total 150 Balance 712 322 - Medications Medications: Current Medications Albumin Human (Albumin Human 25% (12.5 Gm/50 Ml)) 12.5 gm IV Q6H [facility] Last Admin: 11/26/16 10:24 Dose: 12.5 gm Albuterol/Ipratropium (Duoneb 3 Mg/0.5 Mg (3 Ml) Ud) 3 ml IH [id number] [facility] Last Admin: 11/26/16 08:09 Dose: 3 ml Albuterol/Ipratropium (Duoneb 3 Mg/0.5 Mg (3 Ml) Ud) 3 ml IH [id number] PRN PRN Reason: SOB, congestion, desats Last Admin: 11/25/16 18:20 Dose: 3 ml Ergocalciferol (Drisdol 50,000 Intl Units Cap) 1 cap PO QWK [facility] Last Admin: 11/26/16 10:31 Dose: Not Given Folic Acid (Folic Acid) 1 mg PO DAILY [facility] Last Admin: 11/26/16 10:31 Dose: Not Given Furosemide (Lasix) 40 mg IVP DAILY [facility] Last Admin: 11/17/16 09:00 Dose: 40 mg Heparin Sodium (Porcine) (Heparin) 5,000 units SC Q12 [facility] PRN Reason: Protocol Last Admin: 11/16/16 21:44 Dose: Not Given Hydrocortisone Sodium Succinate (Solu-Cortef) 50 mg IVP Q12H [facility] Last Admin: 11/26/16 02:00 Dose: 50 mg Hydroxyurea (Hydrea) 500 mg PO DAILY [facility] Last Admin: 11/26/16 10:31 Dose: Not Given Vancomycin HCl (Vancomycin 1gm) 1 gm in 250 mls @ 167 mls/hr IVPB DAILY [facility] PRN Reason: Protocol Last Admin: 11/25/16 09:48 Dose: 167 mls/hr Dextrose (Dextrose 10% In Water) 500 mls @ 20 mls/hr IV .Q24H [facility] Last Admin: 11/25/16 18:42 Dose: 20 mls/hr Metronidazole (Flagyl) 500 mg in 100 mls @ 100 mls/hr IVPB Q8 [facility] PRN Reason: Protocol Last Admin: 11/26/16 05:15 Dose: 100 mls/hr Dobutamine HCl/Dextrose (Dobutamine/Dextrose 5% 500mg/250ml) 500 mg in 250 mls @ 5.647 mls/hr IV .Q24H PRN; Protocol; 2.5 MCG/KG/MIN PRN Reason: TITRATE PER PROTOCOL Last Admin: 11/25/16 05:28 Dose: 5.647 mls/hr Vasopressin 20 units/ Dextrose 101 mls @ 9.09 mls/hr IV .Q11H7M [facility]; 0.03 U/MIN PRN Reason: Protocol Last Admin: 11/25/16 21:00 Dose: 9.09 mls/hr Levetiracetam 1,000 mg/ Sodium (Chloride) 110 mls @ 460 mls/hr IV Q12 [facility] Last Admin: 11/26/16 10:46 Dose: 460 mls/hr Lactic Acid (Lac-Hydrin 12% Cream (140 G)) 0 ea TOP DAILY PRN PRN Reason: Wound Multivitamins/Minerals (Therapeutic-M Tab) 1 tab PO DAILY [facility] Last Admin: 11/26/16 10:31 Dose: Not Given Pantoprazole Sodium (Protonix Inj) 40 mg IVP Q12 [facility] Last Admin: 11/25/16 21:35 Dose: 40 mg Rifaximin (Xifaxan) 550 mg PO BID [facility] PRN Reason: Protocol Last Admin: 11/19/16 14:57 Dose: Not Given - Labs Labs: 11/26/16 05:25 11/26/16 05:25 PT 26.3 Seconds (9.9-11.8) H 11/26/16 05:25 INR 2.44 (0.93-1.08) H 11/26/16 05:25 APTT 78.1 Seconds (23.7-30.8) H* 11/26/16 05:25 Attending/Attestation - Attestation I have personally seen and examined this patient.: Yes I have fully participated in the care of the patient.: Yes I have reviewed all pertinent clinical information, including history, physical exam and plan: Yes Notes (Text): 11/26/16 11:37 Patient was seen and examined with medical research tech. 36 year old female with PMH of sickle cell disease/anemia, bipolar disorder, CHF and asthma was admitted with sickle cell crisis. Hospital course was complicated with acute liver failure, oligouric renal failure and intubation for respiratory distress .s/p intubation, shock on vasopressor .Patient is SP Plasmapheresis, UF and red cell exchange . Patient is s/p extubation. Continue to taper Fi02 requirements as tolerated. Her mental status is still poor.CT head was negative for acute infarct or intra cranial bleeding.She is on Dobutamine for CHF.LFT are coming down. Surgery is consulted for tense abdomen, Patient does has very high leukocytosis, cultures are negative so far. Patient is full code at this time. Prognosis is guarded.
[2016-11-25] MEDS ORDERED: Albumin Human 5% (12.5 gm/250 ml) IV SCH (16:00)
[2016-11-25] MEDS: Cefepime 1gm in NS 100ml 1 GM/100 ML BAG IVPB SCH (17:13)
--- NOTE | 2016-11-25 17:51 | PN ---
SUBJECTIVE: The patient is allowed to undergo hemodialysis. She is lethargic and nonverbal.. PHYSICAL EXAMINATION VITAL SIGNS: Blood pressure 91/46, heart rate 92, temperature 98.2, and respirations 12. HEENT: Deeply jaundiced with pale conjunctiva. CHEST: Diminished breath sounds bilaterally. ABDOMEN: Ascites. EXTREMITIES: 2+ pitting edema. LABORATORY DATA: Today white count is 67.6, Hemoglobin and hematocrit 7.6 and 21.4, and platelet count 36,000. Today's BUN and creatinine are 62 and 2.6. Sodium is 131 and potassium 4.0. Total bilirubin is 19.7. Today's chest x-ray report, improving bilateral infiltrates, trace cardiomegaly. A head CT scan performed three days ago, no acute intracranial abnormality. ASSESSMENT: 1. Congestive heart failure. 2. Status post respiratory failure. 3. Acute liver failure. 4. Sickle cell disease. 5. Acute renal failure. 6. Anemia and thrombocytopenia. 7. Deep jaundice. RECOMMENDATIONS: Case was discussed with Dr. Perez, public relations professional. The patient will be maintained on Dobutrex infusion, bronchodilators, IV Flagyl, and IV vancomycin. The patient was started on vasopressin today. Pedro Luis Deshpande MD
[2016-11-25] MEDS: Albuterol-Ipratrop 3 mg / 0.5 (3 ml) UD IH PRN (18:20)
[2016-11-25] MEDS ORDERED: levETIRAcetam 1,000 MG in Sodium Chloride 0.9% 100 ML IV STA (18:20)
--- NOTE | 2016-11-25 20:54 | CT ---
EXAM: CT Abdomen and Pelvis Without Intravenous Contrast EXAM DATE/TIME: 11/25/2016 3:11 PM CLINICAL HISTORY: 36 years old, female; Pain; Abdominal pain; Acute; Additional info: Abd compartment syndrome; sickle cell disease; splenectomy TECHNIQUE: Axial computed tomography images of the abdomen and pelvis without intravenous contrast. All CT scans at this facility use one or more dose reduction techniques, viz.: automated exposure control; ma/kV adjustment per patient size (including targeted exams where dose is matched to indication; i.e. head); or iterative reconstruction technique. Coronal and sagittal reformatted images were created and reviewed. COMPARISON: CT - ABD PELVIS W/O PO OR IV CONT 11/19/2016 6:30:16 PM FINDINGS: Lower thorax: The heart is enlarged. There is streak artifact from a vascular catheter. There is airspace disease with air bronchograms in both lower lobes. There is patchy airspace disease in the remaining visualized lung zones. There is loculated fluid in the fissures on the right. There is a small effusion at the left base. There is a hiatal hernia ABDOMEN: Liver: There is diffuse increased attenuation of the liver relative to kidneys, unchanged. Hepatic contours are nodular. There is prominence of the left and caudate lobes. Gallbladder and bile ducts: Gallbladder is absent. Common duct is prominent. Pancreas: Pancreas is mildly atrophic. Spleen: The spleen is absent. There are linear calcifications in the left upper quadrant. Adrenals: unremarkable Kidneys and ureters: Unremarkable Stomach and bowel: Stomach is almost empty. Rotation is normal. Proximal and mid small bowel is decompressed. There are mildly dilated mid small bowel loops. There is a small amount of contrast in mildly distended distal small bowel loops and terminal ileum. There is faint amount of contrast in the cecum. There is diffuse colonic wall thickening. Appendix: Appendix is not visualized. PELVIS: Bladder: Bladder is almost completely empty.A Diaz catheter is in place. Reproductive: Uterus and adnexal structures are unremarkable. ABDOMEN and PELVIS: Intraperitoneal space: There is ascites in the abdomen and pelvis. There is no free air. Bones/joints: Bony structures are osteopenic. There is a coarse trabecular pattern. Motion limits evaluation of the ribs. There is degenerative disc disease at multiple levels. Soft tissues: There is diffuse body wall edema. Vasculature: There are phleboliths. There are vascular calcifications. Lymph nodes: There is no pathologic adenopathy. Tubes, lines and devices: There is a left femoral venous catheter with the tip in the distal external iliac vein. IMPRESSION: Diffuse increased attenuation of the liver suggest hemachromatosis; absent spleen; the cholecystectomy with prominent common duct; probable ileus, no obstruction; diffuse colonic wall thickening consistent with colitis; continued ascites and anasarca; increasing airspace disease at the lung bases with increasing pleural effusions; cardiomegaly and atherosclerotic disease; osseous findings consistent with history of sickle cell disease Additional findings as described above.
--- NOTE | 2016-11-25 21:04 | CP.PCM.PN ---
Subjective - Date & Time of Evaluation Date of Evaluation: 11/25/16 Time of Evaluation: 18:30 - Subjective Subjective: Infectious Disease Follow Up: November 25, 2016 36 yo AA female well known to me from previous hospitalizations at [facility] and [facility] presented with generalized pains and admitted for Sickle Cell vasoocclusive Crisis. The patient was just [place] [facility] [place] ago. She returns with abdominal pain, nausea, and vomiting. The patient did not exhibit a fever while hospitalized so far but came very close with a 100.0 F. Patient with nausea and vomiting and diarrhea. Her blood pressure is lower than her usual. Started on Zosyn for antibiotic treatment. Sudden elevation of LFTs. Zosyn stopped on 11/14/2016. Impending liver failure ? Acute Kidney Injury. Noted Vancomycin restarted. Would continue with Cefepime for the time being. There is a leukocytosis of 42.0 although corrected WBC is 7.8. Patient appears swollen in general. AST and ALT are still increasing. Chelation therapy still in progress. Undergoing red cell exchange transfusion and plasmapheresis yesterday as well as hemodialysis. Patient remains intubated and ventilated. Extremely poor prognosis. The patient is not a candidate for liver transplant at this time as per the [facility] Liver transplant center. The patient is poorly responsive. Taken to EGD for cauterization. Supportive care. Renal dosing of antibiotics. Prognosis dismal. Patient had 2 red cell exchanges. Multiorgan failure. Extubated and off pressors. The patient can nod yes/no answers on occasion but doesn't always follow commands. She is able to track. The patient mentation has been worsening over the weekend. Again the patient's overall prognosis is very poor. Objective - Vital Signs/Intake and Output Vital Signs (last 24 hours): Temp Pulse Resp BP Pulse Ox 98.2 F 92 H 12 91/46 L 95 11/25/16 12:00 11/25/16 12:00 11/25/16 12:00 11/25/16 12:00 11/25/16 12:00 - Medications Medications: Current Medications Albuterol/Ipratropium (Duoneb 3 Mg/0.5 Mg (3 Ml) Ud) 3 ml IH [id number] [facility] Last Admin: 11/25/16 20:43 Dose: 3 ml Albuterol/Ipratropium (Duoneb 3 Mg/0.5 Mg (3 Ml) Ud) 3 ml IH [id number] PRN PRN Reason: SOB, congestion, desats Last Admin: 11/25/16 18:20 Dose: 3 ml Ergocalciferol (Drisdol 50,000 Intl Units Cap) 1 cap PO QWK [facility] Last Admin: 11/19/16 14:47 Dose: Not Given Folic Acid (Folic Acid) 1 mg PO DAILY [facility] Last Admin: 11/25/16 09:45 Dose: Not Given Furosemide (Lasix) 40 mg IVP DAILY [facility] Last Admin: 11/17/16 09:00 Dose: 40 mg Heparin Sodium (Porcine) (Heparin) 5,000 units SC Q12 [facility] PRN Reason: Protocol Last Admin: 11/16/16 21:44 Dose: Not Given Hydrocortisone Sodium Succinate (Solu-Cortef) 50 mg IVP Q12H [facility] Last Admin: 11/25/16 17:14 Dose: 50 mg Hydroxyurea (Hydrea) 500 mg PO DAILY [facility] Last Admin: 11/25/16 09:45 Dose: Not Given Vancomycin HCl (Vancomycin 1gm) 1 gm in 250 mls @ 167 mls/hr IVPB DAILY [facility] PRN Reason: Protocol Last Admin: 11/25/16 09:48 Dose: 167 mls/hr Cefepime HCl (Maxipime 1gm) 1 gm in 100 mls @ 100 mls/hr IVPB Q24H [facility] PRN Reason: Protocol Last Admin: 11/25/16 17:13 Dose: 100 mls/hr Dextrose (Dextrose 10% In Water) 500 mls @ 20 mls/hr IV .Q24H [facility] Last Admin: 11/25/16 18:42 Dose: 20 mls/hr Metronidazole (Flagyl) 500 mg in 100 mls @ 100 mls/hr IVPB Q8 [facility] PRN Reason: Protocol Last Admin: 11/25/16 17:15 Dose: 100 mls/hr Dobutamine HCl/Dextrose (Dobutamine/Dextrose 5% 500mg/250ml) 500 mg in 250 mls @ 5.647 mls/hr IV .Q24H PRN; Protocol; 2.5 MCG/KG/MIN PRN Reason: TITRATE PER PROTOCOL Last Admin: 11/25/16 05:28 Dose: 5.647 mls/hr Vasopressin 20 units/ Dextrose 101 mls @ 9.09 mls/hr IV .Q11H7M [facility]; 0.03 U/MIN PRN Reason: Protocol Last Admin: 11/25/16 10:59 Dose: 9.09 mls/hr Albumin Human (Albumin Human 5% (12.5 Gm/250 Ml)) 250 mls @ 40 mls/hr IV Q6H [facility] Stop: 11/26/16 03:59 Last Admin: 11/25/16 17:32 Dose: 40 mls/hr Levetiracetam 1,000 mg/ Sodium (Chloride) 110 mls @ 460 mls/hr IV Q12 [facility] Lactic Acid (Lac-Hydrin 12% Cream (140 G)) 0 ea TOP DAILY PRN PRN Reason: Wound Multivitamins/Minerals (Therapeutic-M Tab) 1 tab PO DAILY [facility] Last Admin: 11/25/16 09:45 Dose: Not Given Pantoprazole Sodium (Protonix Inj) 40 mg IVP Q12 [facility] Last Admin: 11/25/16 09:48 Dose: 40 mg Rifaximin (Xifaxan) 550 mg PO BID [facility] PRN Reason: Protocol Last Admin: 11/19/16 14:57 Dose: Not Given - Labs Labs: 11/25/16 05:20 11/25/16 05:20 PT 23.0 Seconds (9.9-11.8) H 11/25/16 13:20 INR 2.13 (0.93-1.08) H 11/25/16 13:20 APTT 57.7 Seconds (23.7-30.8) H 11/25/16 13:20 - Constitutional Appears: Non-toxic, No Acute Distress, Chronically Ill - Head Exam Additional comments: +1 facial swelling. - Eye Exam Eye Exam: EOMI, PERRL Pupil Exam: NORMAL ACCOMODATION, PERRL - ENT Exam ENT Exam: Mucous Membranes Moist, Normal External Ear Exam, TM's Normal Bilaterally - Neck Exam Neck Exam: Full ROM, Normal Inspection - Respiratory Exam Respiratory Exam: Decreased Breath Sounds, NORMAL BREATHING PATTERN. absent: Rales, Rhonchi, Wheezes - Cardiovascular Exam Cardiovascular Exam: REGULAR RHYTHM, RRR, +S1, +S2 - GI/Abdominal Exam GI & Abdominal Exam: Distended, Soft, Normal Bowel Sounds. absent: Tenderness - Extremities Exam Extremities Exam: Joint Swelling, Pedal Edema - Neurological Exam Neurological Exam: Awake Additional comments: AAO x 0-1, tracks, not following commands now. - Psychiatric Exam Additional comments: opens eyes. difficult to assess further. Can track people in room. - Skin Additional comments: general edema. Assessment and Plan - Assessment and Plan (Free Text) Assessment: 36 yo AA female with known Sickle Cell disease presenting with diarrhea and abdominal pain. Low blood pressure/borderline hypotension. Supportive care. Velarde cultures. No leukocytosis noted however. Coagulase negative staph according to FISH studies. Sudden increase in LFTs and creatinine. Continue with renal dosing of Cefepime for now. Vancomycin should be adjusted for renal function. LFT are continuing to increase. Acute Kidney Injury with creatinine of 1.9. Remains in MICU for further care. General edema of the patient. Increasing leukocytosis. If continues to increase, will consider use of meropenem. Noted that the patient's cultures are negative to date. LFTs remain severely elevated. 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 Extremely poor prognosis. Extubated today. Generalized edema. Liver Cirrhosis. Not deemed a candidate for liver transplant by [facility] Liver center. Patient is receiving hemodialysis. Multi-organ failure. EGD done with cauterization of an ulcer during this hospitalization. Patient's prognosis remains poor. She has been extubated and is off pressor medications. She is now awake and can track but doesn't follow commands. Mentation has been worsening over the weekend. Thank you for allowing me to participate in the care of the patient, we will follow with you.
--- NOTE | 2016-11-25 21:18 | CT ---
EXAM: CT Head Without Intravenous Contrast EXAM DATE/TIME: 11/25/2016 6:15 PM CLINICAL HISTORY: 36 years old, female; Signs and symptoms; Altered mental status/memory loss; Additional info: Worsening AMS, rule out new acute process TECHNIQUE: Axial computed tomography images of the head/brain without intravenous contrast. All CT scans at this facility use one or more dose reduction techniques, viz.: automated exposure control; ma/kV adjustment per patient size (including targeted exams where dose is matched to indication; i.e. head); or iterative reconstruction technique. COMPARISON: CT - HEAD W/O CONTRAST 11/22/2016 11:53:49 AM FINDINGS: Artifacts: Motion artifact degrades image quality. Brain: There is dilatation of sulci gyri and ventricles. There is no midline shift. There is decreased attenuation in periventricular white matter. There is posterior parietal encephalomalacia, unchanged. There are no focal masses. There are no focal hemorrhages. Faye-white differentiation is visualized. Ventricles: See above Bones: Cranial vault is intact. Soft tissues: unremarkable Sinuses: There is mucoperiosteal thickening in ethmoid and frontal sinuses. There is an air-fluid level in the right maxillary sinus. There is a retention cyst/polyp in the sphenoid. Ears and mastoids: Middle ears and mastoids are unremarkable. Orbits: Orbital contents are unremarkable. IMPRESSION: Atrophy and small vessel disease greater than expected for patient this age; no acute intracranial abnormality; continued sinusitis
[2016-11-25] MEDS ORDERED: Phytonadione 10 MG in Sodium Chloride 0.9% 50 ML IV ONE (22:26)
[2016-11-26] MEDS: Albuterol-Ipratrop 3 mg / 0.5 (3 ml) UD IH SCH ×4 (01:28→20:01)
[2016-11-26] MEDS: metroNIDAZOLE IV 500 mg/100 ml 500 MG/100 ML BAG IVPB SCH ×3 (05:15→21:00)
[2016-11-26 06:05] LABS: BASO # 0.16 K/mm3 (0.0-2.0); BASO % 0.3 % (0.0-3.0); MEAN CELL VOLUME 88.7 fl (80.0-105.0); MEAN CORPUSCULAR HEMOGLOBIN 31.4 pg (25.0-35.0); MEAN CORPUSCULAR HGB CONC 35.4 g/dl (31.0-37.0); PLATELET COUNT 42 10^3/uL (120.0-450.0); RED CELL DISTRIBUTION WIDTH 20.9 % (11.5-14.5)
[2016-11-26 06:24] LABS: INR 2.44 (0.93-1.08)
[2016-11-26 06:25] LABS: HEMATOCRIT 18.1 % (36.0-48.0); WHITE BLOOD COUNT 58.7 10^3/ul (4.5-11.0)
[2016-11-26 06:27] LABS: PARTIAL THROMBOPLASTIN TIME 78.1 Seconds (23.7-30.8)
[2016-11-26 07:18] LABS: CALCIUM 7.4 mg/dL (8.4-10.5); MAGNESIUM 1.8 mg/dL (1.7-2.2); PHOSPHOROUS 4.4 mg/dL (2.5-4.5); POTASSIUM 3.6 mmol/L (3.6-5.0); TOTAL PROTEIN 5.8 g/dL (5.8-8.3)
[2016-11-26 07:20] LABS: BILIRUBIN,TOTAL 21.3 mg/dL (0.2-1.3)
--- NOTE | 2016-11-26 07:38 | CP.PCM.PN ---
Subjective - Date & Time of Evaluation Date of Evaluation: 11/26/16 Time of Evaluation: 07:38 - Subjective Subjective: General Surgery Progress Note for Dr. Chandra Patient seen and examined at bedside. Patient was given vitamin k and ordered 2 units of platelets overnight. Patient lying in bed uncomfortably. Patient is alert but does not respond to questioning. She does react to verbal and tactile stimuli. ROS unobtainable. Objective - Vital Signs/Intake and Output Vital Signs (last 24 hours): Temp Pulse Resp BP Pulse Ox 97.5 F L 104 H 14 93/53 L 97 11/26/16 04:00 11/26/16 06:00 11/26/16 06:00 11/26/16 06:00 11/26/16 06:00 Intake and Output: 11/26/16 11/26/16 06:59 18:59 Intake Total 862 Output Total 150 Balance 712 - Medications Medications: Current Medications Albuterol/Ipratropium (Duoneb 3 Mg/0.5 Mg (3 Ml) Ud) 3 ml IH [id number] [facility] Last Admin: 11/26/16 01:28 Dose: 3 ml Albuterol/Ipratropium (Duoneb 3 Mg/0.5 Mg (3 Ml) Ud) 3 ml IH [id number] PRN PRN Reason: SOB, congestion, desats Last Admin: 11/25/16 18:20 Dose: 3 ml Ergocalciferol (Drisdol 50,000 Intl Units Cap) 1 cap PO QWK [facility] Last Admin: 11/19/16 14:47 Dose: Not Given Folic Acid (Folic Acid) 1 mg PO DAILY [facility] Last Admin: 11/25/16 09:45 Dose: Not Given Furosemide (Lasix) 40 mg IVP DAILY [facility] Last Admin: 11/17/16 09:00 Dose: 40 mg Heparin Sodium (Porcine) (Heparin) 5,000 units SC Q12 [facility] PRN Reason: Protocol Last Admin: 11/16/16 21:44 Dose: Not Given Hydrocortisone Sodium Succinate (Solu-Cortef) 50 mg IVP Q12H [facility] Last Admin: 11/26/16 02:00 Dose: 50 mg Hydroxyurea (Hydrea) 500 mg PO DAILY [facility] Last Admin: 11/25/16 09:45 Dose: Not Given Vancomycin HCl (Vancomycin 1gm) 1 gm in 250 mls @ 167 mls/hr IVPB DAILY [facility] PRN Reason: Protocol Last Admin: 11/25/16 09:48 Dose: 167 mls/hr Dextrose (Dextrose 10% In Water) 500 mls @ 20 mls/hr IV .Q24H [facility] Last Admin: 11/25/16 18:42 Dose: 20 mls/hr Metronidazole (Flagyl) 500 mg in 100 mls @ 100 mls/hr IVPB Q8 [facility] PRN Reason: Protocol Last Admin: 11/26/16 05:15 Dose: 100 mls/hr Dobutamine HCl/Dextrose (Dobutamine/Dextrose 5% 500mg/250ml) 500 mg in 250 mls @ 5.647 mls/hr IV .Q24H PRN; Protocol; 2.5 MCG/KG/MIN PRN Reason: TITRATE PER PROTOCOL Last Admin: 11/25/16 05:28 Dose: 5.647 mls/hr Vasopressin 20 units/ Dextrose 101 mls @ 9.09 mls/hr IV .Q11H7M [facility]; 0.03 U/MIN PRN Reason: Protocol Last Admin: 11/25/16 21:00 Dose: 9.09 mls/hr Levetiracetam 1,000 mg/ Sodium (Chloride) 110 mls @ 460 mls/hr IV Q12 [facility] Lactic Acid (Lac-Hydrin 12% Cream (140 G)) 0 ea TOP DAILY PRN PRN Reason: Wound Multivitamins/Minerals (Therapeutic-M Tab) 1 tab PO DAILY [facility] Last Admin: 11/25/16 09:45 Dose: Not Given Pantoprazole Sodium (Protonix Inj) 40 mg IVP Q12 [facility] Last Admin: 11/25/16 21:35 Dose: 40 mg Rifaximin (Xifaxan) 550 mg PO BID [facility] PRN Reason: Protocol Last Admin: 11/19/16 14:57 Dose: Not Given - Labs Labs: 11/26/16 05:25 11/26/16 05:25 PT 26.3 Seconds (9.9-11.8) H 11/26/16 05:25 INR 2.44 (0.93-1.08) H 11/26/16 05:25 APTT 78.1 Seconds (23.7-30.8) H* 11/26/16 05:25 - Constitutional Appears: In Acute Distress (mild, pain), Chronically Ill - Head Exam Head Exam: ATRAUMATIC, NORMOCEPHALIC - ENT Exam ENT Exam: Mucous Membranes Moist - Respiratory Exam Respiratory Exam: NORMAL BREATHING PATTERN Additional comments: portacath in r chest - Cardiovascular Exam Cardiovascular Exam: Tachycardia - GI/Abdominal Exam GI & Abdominal Exam: Distended, Firm, Tenderness (diffuse). absent: Guarding, Rebound Additional comments: dialysis catheter in L groin - Extremities Exam Extremities Exam: Pedal Edema - Neurological Exam Neurological Exam: Alert, Awake - Psychiatric Exam Psychiatric exam: Flat Affect - Skin Skin Exam: Dry, Warm Assessment and Plan - Assessment and Plan (Free Text) Plan: 36 F with abdominal compartment syndrome -Monitor abdominal pressure -2 units platelets -Patient is poor surgical candidate - recommend IR tap -further recs as per Dr. Prateek Benoit PGY1
[2016-11-26 07:47] LABS: RETIC% 10.88 % (0.5-1.5)
[2016-11-26] MEDS: Albumin Human 25% (12.5 gm/50 ml) IV SCH ×3 (10:24→20:26)
[2016-11-26] MEDS: Multivitamin With Minerals Tab PO SCH (10:31)
[2016-11-26] MEDS: Ergocalciferol 50,000 Intl Units Cap PO SCH (10:31)
[2016-11-26] MEDS: levETIRAcetam 1,000 MG in Sodium Chloride 0.9% 100 ML IV SCH ×2 (10:46→21:02)
--- NOTE | 2016-11-26 11:17 | CP.PCM.PN ---
<Landon Melchor - Last Filed: 11/26/16 11:19> Subjective - Date & Time of Evaluation Date of Evaluation: 11/26/16 Time of Evaluation: 09:14 - Subjective Subjective: Patient was seen and examined at bedside. Per nursing the patient is expected to undergo abdominal decompression per surgery. No acute events overnight. ROS unobtainable due to patient's current clinical condition. Objective - Vital Signs/Intake and Output Vital Signs (last 24 hours): Temp Pulse Resp BP Pulse Ox 97.9 F 108 H 17 95/53 L 97 11/26/16 11:05 11/26/16 11:05 11/26/16 11:05 11/26/16 11:05 11/26/16 06:00 Intake and Output: 11/26/16 11/26/16 06:59 18:59 Intake Total 862 322 Output Total 150 Balance 712 322 - Medications Medications: Current Medications Albumin Human (Albumin Human 25% (12.5 Gm/50 Ml)) 12.5 gm IV Q6H [facility] Last Admin: 11/26/16 10:24 Dose: 12.5 gm Albuterol/Ipratropium (Duoneb 3 Mg/0.5 Mg (3 Ml) Ud) 3 ml IH [id number] [facility] Last Admin: 11/26/16 08:09 Dose: 3 ml Albuterol/Ipratropium (Duoneb 3 Mg/0.5 Mg (3 Ml) Ud) 3 ml IH [id number] PRN PRN Reason: SOB, congestion, desats Last Admin: 11/25/16 18:20 Dose: 3 ml Ergocalciferol (Drisdol 50,000 Intl Units Cap) 1 cap PO QWK [facility] Last Admin: 11/26/16 10:31 Dose: Not Given Folic Acid (Folic Acid) 1 mg PO DAILY [facility] Last Admin: 11/26/16 10:31 Dose: Not Given Furosemide (Lasix) 40 mg IVP DAILY [facility] Last Admin: 11/17/16 09:00 Dose: 40 mg Heparin Sodium (Porcine) (Heparin) 5,000 units SC Q12 [facility] PRN Reason: Protocol Last Admin: 11/16/16 21:44 Dose: Not Given Hydrocortisone Sodium Succinate (Solu-Cortef) 50 mg IVP Q12H [facility] Last Admin: 11/26/16 02:00 Dose: 50 mg Hydroxyurea (Hydrea) 500 mg PO DAILY [facility] Last Admin: 11/26/16 10:31 Dose: Not Given Vancomycin HCl (Vancomycin 1gm) 1 gm in 250 mls @ 167 mls/hr IVPB DAILY [facility] PRN Reason: Protocol Last Admin: 11/25/16 09:48 Dose: 167 mls/hr Dextrose (Dextrose 10% In Water) 500 mls @ 20 mls/hr IV .Q24H [facility] Last Admin: 11/25/16 18:42 Dose: 20 mls/hr Metronidazole (Flagyl) 500 mg in 100 mls @ 100 mls/hr IVPB Q8 [facility] PRN Reason: Protocol Last Admin: 11/26/16 05:15 Dose: 100 mls/hr Dobutamine HCl/Dextrose (Dobutamine/Dextrose 5% 500mg/250ml) 500 mg in 250 mls @ 5.647 mls/hr IV .Q24H PRN; Protocol; 2.5 MCG/KG/MIN PRN Reason: TITRATE PER PROTOCOL Last Admin: 11/25/16 05:28 Dose: 5.647 mls/hr Vasopressin 20 units/ Dextrose 101 mls @ 9.09 mls/hr IV .Q11H7M [facility]; 0.03 U/MIN PRN Reason: Protocol Last Admin: 11/25/16 21:00 Dose: 9.09 mls/hr Levetiracetam 1,000 mg/ Sodium (Chloride) 110 mls @ 460 mls/hr IV Q12 [facility] Last Admin: 11/26/16 10:46 Dose: 460 mls/hr Lactic Acid (Lac-Hydrin 12% Cream (140 G)) 0 ea TOP DAILY PRN PRN Reason: Wound Multivitamins/Minerals (Therapeutic-M Tab) 1 tab PO DAILY [facility] Last Admin: 11/26/16 10:31 Dose: Not Given Pantoprazole Sodium (Protonix Inj) 40 mg IVP Q12 [facility] Last Admin: 11/25/16 21:35 Dose: 40 mg Rifaximin (Xifaxan) 550 mg PO BID [facility] PRN Reason: Protocol Last Admin: 11/19/16 14:57 Dose: Not Given - Labs Labs: 11/26/16 05:25 11/26/16 05:25 PT 26.3 Seconds (9.9-11.8) H 11/26/16 05:25 INR 2.44 (0.93-1.08) H 11/26/16 05:25 APTT 78.1 Seconds (23.7-30.8) H* 11/26/16 05:25 - Constitutional Appears: Toxic, Cachectic, Chronically Ill - Head Exam Head Exam: ATRAUMATIC, NORMAL INSPECTION, NORMOCEPHALIC - Eye Exam Eye Exam: EOMI, Normal appearance, PERRL Pupil Exam: PERRL. absent: NORMAL ACCOMODATION - ENT Exam ENT Exam: Mucous Membranes Moist - Neck Exam Neck Exam: Normal Inspection - Respiratory Exam Respiratory Exam: Decreased Breath Sounds, Rhonchi, Wheezes. absent: Chest Wall Tenderness, Respiratory Distress - Cardiovascular Exam Cardiovascular Exam: REGULAR RHYTHM, +S1, +S2. absent: Gallop, Rubs - GI/Abdominal Exam GI & Abdominal Exam: Rigid - Extremities Exam Extremities Exam: Pedal Edema. absent: Full ROM - Neurological Exam Neurological Exam: Altered, Motor Sensory Deficit Assessment and Plan - Assessment and Plan (Free Text) Assessment: 36 y/o F with PMH of Sickle cell disease, Bipolar disorder, Cerebral palsy, Asthma, CHF here for likely vaso-occlusive crisis complicated by progressive liver failure, intrahepatic cholestasis. Hospital course complicated by thrombocytopenia, coagulopathy, leukocytosis, MELITON, hepatic encephalopathy. On Dobutamine and Vasopressin for support. Plan: 1. Likely Vaso-occlusive crisis -secondary to sickle cell disease -Hb 6.4 today. Transfused 1 Unit of PRBC's. -will transfuse if Hb <7. Will transfuse as needed. -Continue Hydroxyurea -Heme following, awaiting recs -transfusion exchange as per Heme and Nephro -Surgery re-consulted. Patient expected to undergo abdominal decompression surgery this afternoon. Will f/u in the morning. 2. Liver disease -Patient not a candidate for liver transplantation at this time as per discussion with [facility] and [facility]. -Family doesn't want Hospice care. LTEC placement pending. -Transaminitis -Thrombocytopenia -Hyperbilirubinemia elevated and stable. Intrahepatic -Hepatology signed off -prognosis poor 3. Upper GI bleed -likely secondary to OG trauma -S/p bedside EGD on 11/19 -Bleed cauterized and injected -Patient s/p 2 Platelets and 1 FFP. Will continue to monitor closely. -Continue Protonix 40 q12 daily 4. Possible Colitis -CT - evidence of possible colitis -C.Diff antigen positive, toxin negative -repeat stool cdiff -Surgery following -Low suspicion for colitis -Patient is not a candidate for surgery 5. MELITON -Nephro following -Continues to be oliguric -Dialysis recs as per nephro -Bladder pressure increased yesterday, not a surgical candidate. 6. CHF -Continue Lasix 40 mg daily -on Dobutamine and Vasopressin drip -EF - 39.7% in June 2016 -Cardiology following 7. Respiratory failure -Extubated on 11/21, on High flow O2 -Continue breathing treatments 8. Leukocytosis -WBC count trending down. Will continue to monitor closely. -Blood cultures negative -Urine cultures negative -CDiff antigen positive, toxin negative -awaiting repeat stool cdiff -ID following -Continue IV Abx 9. Electrolyte abnormalities Replete as needed. Will follow with serial cmp's. 10. PPx Protonix SCDs <Jena Ruff - Last Filed: 11/28/16 14:20> Objective - Vital Signs/Intake and Output Vital Signs (last 24 hours): Temp Pulse Resp BP Pulse Ox 98 F 127 H 30 H 101/52 L 96 11/28/16 12:00 11/28/16 13:05 11/28/16 13:05 11/28/16 13:00 11/28/16 12:59 Intake and Output: 11/28/16 11/28/16 06:59 18:59 Intake Total 1997 Output Total 2470 Balance -472 - Medications Medications: Current Medications Albumin Human (Albumin Human 25% (12.5 Gm/50 Ml)) 12.5 gm IV Q6H [facility] Last Admin: 11/28/16 10:26 Dose: 12.5 gm Albuterol/Ipratropium (Duoneb 3 Mg/0.5 Mg (3 Ml) Ud) 3 ml IH [id number] [facility] Last Admin: 11/28/16 13:24 Dose: 3 ml Albuterol/Ipratropium (Duoneb 3 Mg/0.5 Mg (3 Ml) Ud) 3 ml IH [id number] PRN PRN Reason: SOB, congestion, desats Last Admin: 11/28/16 06:08 Dose: 3 ml Furosemide (Lasix) 40 mg IVP DAILY [facility] Last Admin: 11/17/16 09:00 Dose: 40 mg Heparin Sodium (Porcine) (Heparin) 5,000 units SC Q12 [facility] PRN Reason: Protocol Last Admin: 11/16/16 21:44 Dose: Not Given Hydrocortisone Sodium Succinate (Solu-Cortef) 50 mg IVP Q12H [facility] Last Admin: 11/28/16 01:41 Dose: 50 mg Metronidazole (Flagyl) 500 mg in 100 mls @ 100 mls/hr IVPB Q8 [facility] PRN Reason: Protocol Last Admin: 11/28/16 05:31 Dose: 100 mls/hr Dobutamine HCl/Dextrose (Dobutamine/Dextrose 5% 500mg/250ml) 500 mg in 250 mls @ 5.647 mls/hr IV .Q24H PRN; Protocol; 2.5 MCG/KG/MIN PRN Reason: TITRATE PER PROTOCOL Last Admin: 11/27/16 06:33 Dose: 5.647 mls/hr Vasopressin 20 units/ Dextrose 101 mls @ 9.09 mls/hr IV .Q11H7M [facility]; 0.03 U/MIN PRN Reason: Protocol Last Admin: 11/25/16 21:00 Dose: 9.09 mls/hr Multivitamins/Vitamin C 10 ml/Amino Acids/Electrolytes/Dextrose 2,010 mls @ 83 mls/hr IV .Q24H [facility] Stop: 11/29/16 17:59 Last Admin: 11/27/16 21:11 Dose: 83 mls/hr Fat Emulsion Intravenous (Intralipid 20%) 250 mls @ 21 mls/hr IV MWF@1800 [facility] Stop: 11/29/16 17:59 Last Admin: 11/27/16 21:11 Dose: 21 mls/hr Levetiracetam 750 mg/ Sodium (Chloride) 107.5 mls @ 460 mls/hr IV Q12 [facility] Last Admin: 11/28/16 10:05 Dose: 460 mls/hr Pantoprazole Sodium (Protonix Inj) 40 mg IVP Q12 [facility] Last Admin: 11/28/16 10:00 Dose: 40 mg Rifaximin (Xifaxan) 550 mg PO BID [facility] PRN Reason: Protocol Last Admin: 11/19/16 14:57 Dose: Not Given - Labs Labs: 11/28/16 06:00 11/28/16 06:00 PT 27.7 Seconds (9.9-11.8) H 11/28/16 06:00 INR 2.56 (0.93-1.08) H 11/28/16 06:00 APTT 85.3 Seconds (23.7-30.8) H* 11/28/16 06:00 Attending/Attestation - Attestation I have personally seen and examined this patient.: Yes I have fully participated in the care of the patient.: Yes I have reviewed all pertinent clinical information, including history, physical exam and plan: Yes Notes (Text): 11/28/16 14:18 Patient was seen and examined with medical chief technician. 36 year old female with PMH of sickle cell disease/anemia, bipolar disorder, CHF and asthma was admitted with sickle cell crisis. Hospital course was complicated with acute liver failure, oligouric renal failure and intubation for respiratory distress .s/p intubation, shock on vasopressor .Patient is SP Plasmapheresis, UF and red cell exchange . Patient was ectubated , her mental status is very poor, so far able to maintain air way.Patient underwent Paracentesis today, will follow up studies. Surgery is consulted for tense abdomen, no plan for surgical intervention as per surgery.Patient is a high risk patient. Patient does has very high leukocytosis, cultures are negative so far. Patient is full code at this time. Prognosis is guarded.
--- NOTE | 2016-11-26 11:19 | CP.PCM.CON ---
<Shahla Gannon - Last Filed: 11/26/16 11:14> History of Present Illness - History of Present Illness History of Present Illness: Neurology Consult Note for Geraldine Gardner PGY2 Reason for consult: worsening mental status, facial twitching r/o seizure This is a 36Y F with PMH sickle cell disease, cerebral palsy, CHF, asthma and bipolar disorder admitted 2 weeks ago for RUQ pain with n/v/d. She was found to have MELITON, hypotension, transaminitis secondary to acute chest syndrome. She had a complicated course in the ICU which included intubation secondary to hepatic encephalopathy, dialysis for MELITON as well as exchange transfusion for acute occlusive sickle cell crisis. Patient is currently extubated and on pressors. She is still receiving dialysis and was started on TPN. As per powder compounder, patient was noted to have R facial twitching. She is awake and alert, but is not speaking. Head CT was noted to be negative for acute pathology and noted to have atrophy and small vessel disease. Upon examination, patient is awake and alert. She is moaning and non-verbal. She is able to follow some commands, but is not consistent. ROS could not be obtained. Patient was thought to have abdominal compartment syndrome and was scheduled for surgery. At this time her abdominal pressure has improved and surgery was cancelled. PMH: Sickle cell disease, cerebral palsy, CHF, asthma, bipolar disorder PSH: Cholecystectomy, bilateral hip surgery Home med: As per MAR ALL: ASA, coconut oil, Mushroom, Morphine, Oxycodone, Percocet SH: Denies tobacco, EtOH or drug use. Lives in prison. FH: Sickle cell disease (Sister), Breast cancer (Aunt-Maternal) Review of Systems - Review of Systems Systems not reviewed;Unavailable: Altered Mental Status Past Patient History - Infectious Disease Hx of Infectious Diseases: None - Tetanus Immunizations Tetanus Immunization: Up to Date - Past Medical History & Family History Past Medical History?: Yes - Past Social History Smoking Status: Former Smoker Alcohol: None Drugs: Denies - CARDIAC Hx Cardiac Disorders: Yes Hx Hypertension: Yes - PULMONARY Hx Asthma: Yes - NEUROLOGICAL Hx Neurological Disorder: No Other/Comment: CP - HEENT Hx HEENT Problems: No - RENAL Hx Chronic Kidney Disease: No - ENDOCRINE/METABOLIC Hx Endocrine Disorders: Yes - HEMATOLOGICAL/ONCOLOGICAL Hx Blood Transfusions: Yes Hx Blood Transfusion Reaction: No - INTEGUMENTARY Hx Dermatological Problems: Yes Hx Eczema: Yes - MUSCULOSKELETAL/RHEUMATOLOGICAL Hx Falls: No - GASTROINTESTINAL Hx Gastrointestinal Disorders: Yes Hx Gastroesophageal Reflux: Yes Hx Pancreatitis: Yes - GENITOURINARY/GYNECOLOGICAL Hx Genitourinary Disorders: Yes Hx Urinary Tract Infection: Yes - PSYCHIATRIC Hx Psychophysiologic Disorder: Yes Hx Anxiety: Yes Hx Bipolar Disorder: Yes Hx Substance Use: No - SURGICAL HISTORY Hx Surgeries: Yes - ANESTHESIA Hx Anesthesia Reactions: No Hx Malignant Hyperthermia: No Meds Allergies/Adverse Reactions: Allergies Allergy/AdvReac Type Severity Reaction Status Date / Time acetaminophen Allergy RASH Verified 09/24/16 12:42 aspirin Allergy RASH Verified 09/24/16 12:42 coconut oil Allergy RASH Verified 09/24/16 12:42 morphine Allergy SWELLING Verified 09/24/16 12:42 mushroom Allergy URTICARIA Verified 09/24/16 12:42 oxycodone Allergy RASH Verified 09/24/16 12:42 - Medications Medications: Current Medications Albumin Human (Albumin Human 25% (12.5 Gm/50 Ml)) 12.5 gm IV Q6H [facility] Last Admin: 11/26/16 10:24 Dose: 12.5 gm Albuterol/Ipratropium (Duoneb 3 Mg/0.5 Mg (3 Ml) Ud) 3 ml IH [id number] [facility] Last Admin: 11/26/16 08:09 Dose: 3 ml Albuterol/Ipratropium (Duoneb 3 Mg/0.5 Mg (3 Ml) Ud) 3 ml IH [id number] PRN PRN Reason: SOB, congestion, desats Last Admin: 11/25/16 18:20 Dose: 3 ml Ergocalciferol (Drisdol 50,000 Intl Units Cap) 1 cap PO QWK [facility] Last Admin: 11/26/16 10:31 Dose: Not Given Folic Acid (Folic Acid) 1 mg PO DAILY [facility] Last Admin: 11/26/16 10:31 Dose: Not Given Furosemide (Lasix) 40 mg IVP DAILY [facility] Last Admin: 11/17/16 09:00 Dose: 40 mg Heparin Sodium (Porcine) (Heparin) 5,000 units SC Q12 [facility] PRN Reason: Protocol Last Admin: 11/16/16 21:44 Dose: Not Given Hydrocortisone Sodium Succinate (Solu-Cortef) 50 mg IVP Q12H [facility] Last Admin: 11/26/16 02:00 Dose: 50 mg Hydroxyurea (Hydrea) 500 mg PO DAILY [facility] Last Admin: 11/26/16 10:31 Dose: Not Given Vancomycin HCl (Vancomycin 1gm) 1 gm in 250 mls @ 167 mls/hr IVPB DAILY [facility] PRN Reason: Protocol Last Admin: 11/25/16 09:48 Dose: 167 mls/hr Dextrose (Dextrose 10% In Water) 500 mls @ 20 mls/hr IV .Q24H [facility] Last Admin: 11/25/16 18:42 Dose: 20 mls/hr Metronidazole (Flagyl) 500 mg in 100 mls @ 100 mls/hr IVPB Q8 [facility] PRN Reason: Protocol Last Admin: 11/26/16 05:15 Dose: 100 mls/hr Dobutamine HCl/Dextrose (Dobutamine/Dextrose 5% 500mg/250ml) 500 mg in 250 mls @ 5.647 mls/hr IV .Q24H PRN; Protocol; 2.5 MCG/KG/MIN PRN Reason: TITRATE PER PROTOCOL Last Admin: 11/25/16 05:28 Dose: 5.647 mls/hr Vasopressin 20 units/ Dextrose 101 mls @ 9.09 mls/hr IV .Q11H7M [facility]E; 0.03 U/MIN PRN Reason: Protocol Last Admin: 11/25/16 21:00 Dose: 9.09 mls/hr Levetiracetam 1,000 mg/ Sodium (Chloride) 110 mls @ 460 mls/hr IV Q12 [facility] Last Admin: 11/26/16 10:46 Dose: 460 mls/hr Lactic Acid (Lac-Hydrin 12% Cream (140 G)) 0 ea TOP DAILY PRN PRN Reason: Wound Multivitamins/Minerals (Therapeutic-M Tab) 1 tab PO DAILY [facility] Last Admin: 11/26/16 10:31 Dose: Not Given Pantoprazole Sodium (Protonix Inj) 40 mg IVP Q12 [facility] Last Admin: 11/25/16 21:35 Dose: 40 mg Rifaximin (Xifaxan) 550 mg PO BID [facility]E PRN Reason: Protocol Last Admin: 11/19/16 14:57 Dose: Not Given Physical Exam - Constitutional Appears: No Acute Distress, Chronically Ill - Head Exam Head Exam: ATRAUMATIC, NORMAL INSPECTION, NORMOCEPHALIC - Eye Exam Eye Exam: PERRL, Scleral icterus Pupil Exam: PERRL - ENT Exam ENT Exam: Mucous Membranes Dry - Respiratory Exam Respiratory Exam: Rhonchi, NORMAL BREATHING PATTERN. absent: Rales, Wheezes - Cardiovascular Exam Cardiovascular Exam: REGULAR RHYTHM, +S1, +S2. absent: Gallop, Rubs, Systolic Murmur - GI/Abdominal Exam GI & Abdominal Exam: Normal Bowel Sounds, Soft. absent: Mass, Rebound, Rigid, Tenderness - Extremities Exam Extremities exam: Positive for: pedal edema (+ 4 bilaterally lower extremities, + 3 bilaterally in upper extremities ) - Neurological Exam Neurological exam: Alert, CN II-XII Intact Additional comments: Neurological exam limited due to AMS. - Expanded Neurological Exam Expanded Coma Scale Eye Opening: SPONTANEOUS Coma Scale Motor Response: OBEYS COMMANDS Coma Scale Verbal: Confused Coma Scale Total: 14 - Skin Skin Exam: Dry, Normal Color, Warm Results - Vital Signs Recent Vital Signs: Last Vital Signs Temp 97.9 F 11/26/16 11:05 Pulse 108 H 11/26/16 11:05 Resp 17 11/26/16 11:05 BP 95/53 L 11/26/16 11:05 Pulse Ox 97 11/26/16 06:00 - Labs Result Diagrams: 11/26/16 05:25 11/26/16 05:25 Labs: Laboratory Results - last 24 hr 11/20/16 11/25/16 11/25/16 08:28 05:20 11:53 WBC RBC Hgb Hct MCV MCH MCHC RDW Plt Count Baso % (Auto) Baso # Corrected WBC (Man) 13.0 H Neutrophils % (Manual) 86 H Band Neutrophils % 2 Lymphocytes % (Manual) 4 L Monocytes % (Manual) 2 Metamyelocytes % 3 Myelocytes % 3 Nucleated RBC % 420 Platelet Evaluation Low Polychromasia Slight Hypochromasia 1+ Poikilocytosis (manual Slight Anisocytosis (manual) 2+ Spherocytes Slight Sickle Cells Slight Tear Drop Cells Slight Ovalocytes Slight [place] Cells Slight Schistocytes Slight Retic Count PT INR APTT pO2 VBG pH VBG pCO2 VBG HCO3 VBG Total CO2 VBG O2 Sat (Calc) VBG Base Excess VBG Potassium Sodium Chloride Glucose Lactate FiO2 Potassium Carbon Dioxide Anion Gap BUN Creatinine Est GFR ( Amer) Est GFR (Non-Af Amer) POC Glucose (mg/dL) 145 H Random Glucose Calcium Phosphorus Magnesium Total Bilirubin AST ALT Alkaline Phosphatase Total Protein Albumin Globulin Albumin/Globulin Ratio Venous Blood Potassium Ur Strep pneumoniae Ag Not detected 11/25/16 11/25/16 11/25/16 13:20 13:22 17:59 WBC RBC Hgb Hct MCV MCH MCHC RDW Plt Count Baso % (Auto) Baso # Corrected WBC (Man) Neutrophils % (Manual) Band Neutrophils % Lymphocytes % (Manual) Monocytes % (Manual) Metamyelocytes % Myelocytes % Nucleated RBC % Platelet Evaluation Polychromasia Hypochromasia Poikilocytosis (manual Anisocytosis (manual) Spherocytes Sickle Cells Tear Drop Cells Ovalocytes [place] Cells Schistocytes Retic Count PT 23.0 H INR 2.13 H APTT 57.7 H pO2 43 VBG pH 7.39 VBG pCO2 44.0 VBG HCO3 26.6 VBG Total CO2 28.0 VBG O2 Sat (Calc) 84.5 H VBG Base Excess 1.2 VBG Potassium 3.7 Sodium 133.0 Chloride 100.0 Glucose 119 H Lactate 1.9 FiO2 21.0 Potassium Carbon Dioxide Anion Gap BUN Creatinine Est GFR ( Amer) Est GFR (Non-Af Amer) POC Glucose (mg/dL) 129 H Random Glucose Calcium Phosphorus Magnesium Total Bilirubin AST ALT Alkaline Phosphatase Total Protein Albumin Globulin Albumin/Globulin Ratio Venous Blood Potassium 3.7 Ur Strep pneumoniae Ag 11/26/16 11/26/16 11/26/16 00:07 05:25 05:25 WBC 58.7 H* RBC 2.04 L Hgb 6.4 L* Hct 18.1 L* MCV 88.7 MCH 31.4 MCHC 35.4 RDW 20.9 H Plt Count 42 L* Baso % (Auto) 0.3 Baso # 0.16 Corrected WBC (Man) Neutrophils % (Manual) Band Neutrophils % Lymphocytes % (Manual) Monocytes % (Manual) Metamyelocytes % Myelocytes % Nucleated RBC % Platelet Evaluation Polychromasia Hypochromasia Poikilocytosis (manual Anisocytosis (manual) Spherocytes Sickle Cells Tear Drop Cells Ovalocytes [place] Cells Schistocytes Retic Count PT 26.3 H INR 2.44 H APTT 78.1 H* pO2 VBG pH VBG pCO2 VBG HCO3 VBG Total CO2 VBG O2 Sat (Calc) VBG Base Excess VBG Potassium Sodium Chloride Glucose Lactate FiO2 Potassium Carbon Dioxide Anion Gap BUN Creatinine Est GFR ( Amer) Est GFR (Non-Af Amer) POC Glucose (mg/dL) 152 H Random Glucose Calcium Phosphorus Magnesium Total Bilirubin AST ALT Alkaline Phosphatase Total Protein Albumin Globulin Albumin/Globulin Ratio Venous Blood Potassium Ur Strep pneumoniae Ag 11/26/16 11/26/16 11/26/16 05:25 05:25 06:05 WBC RBC Hgb Hct MCV MCH MCHC RDW Plt Count Baso % (Auto) Baso # Corrected WBC (Man) Neutrophils % (Manual) Band Neutrophils % Lymphocytes % (Manual) Monocytes % (Manual) Metamyelocytes % Myelocytes % Nucleated RBC % Platelet Evaluation Polychromasia Hypochromasia Poikilocytosis (manual Anisocytosis (manual) Spherocytes Sickle Cells Tear Drop Cells Ovalocytes [place] Cells Schistocytes Retic Count 10.88 H* PT INR APTT pO2 VBG pH VBG pCO2 VBG HCO3 VBG Total CO2 VBG O2 Sat (Calc) VBG Base Excess VBG Potassium Sodium 135 Chloride 97 L Glucose Lactate FiO2 Potassium 3.6 Carbon Dioxide 24 Anion Gap 18 BUN 40 H Creatinine 1.9 H Est GFR ( Amer) 36 Est GFR (Non-Af Amer) 30 POC Glucose (mg/dL) 159 H Random Glucose 125 H Calcium 7.4 L Phosphorus 4.4 Magnesium 1.8 Total Bilirubin 21.3 H* AST 279 H D ALT 77 H Alkaline Phosphatase 575 H Total Protein 5.8 Albumin 2.9 L Globulin 3.0 Albumin/Globulin Ratio 1.0 L Venous Blood Potassium Ur Strep pneumoniae Ag Assessment & Plan - Assessment and Plan (Free Text) Assessment: This is a 36Y F with H sickle cell disease, cerebral palsy, CHF, asthma and bipolar disorder admitted 2 weeks ago for RUQ pain with n/v/d. She was found to have MELITON, hypotension, transaminitis secondary to acute chest syndrome with complicated ICU course and multiorgan dysfunction. Head CT negative for acute pathology, but shows atrophy and small vessel disease. Patient found to have AMS and R facial twitching that was not noted on exam. She is noted to have hyperbilirubinemia as well as hypotension despite being on pressors. Twitching can be secondary to history of cerebral palsy as well as metabolic derangements. AMS can be secondary to metabolic derangements alone with cerebral hypoperfusion. Plan: - EEG done - Maintain adequate hydration - Maintain SBP in 120-130s for cerebral perfusion - Continue Keppra BID - do not recommend other anticonvulsants due to transaminitis - continue present management as per ICU Case seen, discussed and reviewed with attending, Dr. Marcus. Geraldine Gannon PGY2 - Date & Time Date: 11/26/16 Time: 08:00 <Blake Marcus - Last Filed: 11/26/16 13:02> Meds - Medications Medications: Current Medications Albumin Human (Albumin Human 25% (12.5 Gm/50 Ml)) 12.5 gm IV Q6H [facility] Last Admin: 11/26/16 10:24 Dose: 12.5 gm Albuterol/Ipratropium (Duoneb 3 Mg/0.5 Mg (3 Ml) Ud) 3 ml IH [id number] [facility] Last Admin: 11/26/16 08:09 Dose: 3 ml Albuterol/Ipratropium (Duoneb 3 Mg/0.5 Mg (3 Ml) Ud) 3 ml IH [id number] PRN PRN Reason: SOB, congestion, desats Last Admin: 11/25/16 18:20 Dose: 3 ml Ergocalciferol (Drisdol 50,000 Intl Units Cap) 1 cap PO QWK [facility] Last Admin: 11/26/16 10:31 Dose: Not Given Folic Acid (Folic Acid) 1 mg PO DAILY [facility] Last Admin: 11/26/16 10:31 Dose: Not Given Furosemide (Lasix) 40 mg IVP DAILY [facility] Last Admin: 11/17/16 09:00 Dose: 40 mg Heparin Sodium (Porcine) (Heparin) 5,000 units SC Q12 [facility] PRN Reason: Protocol Last Admin: 11/16/16 21:44 Dose: Not Given Hydrocortisone Sodium Succinate (Solu-Cortef) 50 mg IVP Q12H [facility] Last Admin: 11/26/16 02:00 Dose: 50 mg Hydroxyurea (Hydrea) 500 mg PO DAILY [facility] Last Admin: 11/26/16 10:31 Dose: Not Given Vancomycin HCl (Vancomycin 1gm) 1 gm in 250 mls @ 167 mls/hr IVPB DAILY [facility] PRN Reason: Protocol Last Admin: 11/26/16 12:24 Dose: 167 mls/hr Dextrose (Dextrose 10% In Water) 500 mls @ 20 mls/hr IV .Q24H [facility] Last Admin: 11/25/16 18:42 Dose: 20 mls/hr Metronidazole (Flagyl) 500 mg in 100 mls @ 100 mls/hr IVPB Q8 [facility] PRN Reason: Protocol Last Admin: 11/26/16 05:15 Dose: 100 mls/hr Dobutamine HCl/Dextrose (Dobutamine/Dextrose 5% 500mg/250ml) 500 mg in 250 mls @ 5.647 mls/hr IV .Q24H PRN; Protocol; 2.5 MCG/KG/MIN PRN Reason: TITRATE PER PROTOCOL Last Admin: 11/25/16 05:28 Dose: 5.647 mls/hr Vasopressin 20 units/ Dextrose 101 mls @ 9.09 mls/hr IV .Q11H7M [facility]; 0.03 U/MIN PRN Reason: Protocol Last Admin: 11/25/16 21:00 Dose: 9.09 mls/hr Levetiracetam 1,000 mg/ Sodium (Chloride) 110 mls @ 460 mls/hr IV Q12 [facility] Last Admin: 11/26/16 10:46 Dose: 460 mls/hr Multivitamins/Vitamin C 10 ml/Amino Acids/Electrolytes/Dextrose 2,010 mls @ 83 mls/hr IV .Q24H [facility] Stop: 11/29/16 17:59 Fat Emulsion Intravenous (Intralipid 20%) 250 mls @ 21 mls/hr IV MWF@1800 [facility] Stop: 11/29/16 17:59 Lactic Acid (Lac-Hydrin 12% Cream (140 G)) 0 ea TOP DAILY PRN PRN Reason: Wound Multivitamins/Minerals (Therapeutic-M Tab) 1 tab PO DAILY [facility] Last Admin: 11/26/16 10:31 Dose: Not Given Pantoprazole Sodium (Protonix Inj) 40 mg IVP Q12 [facility] Last Admin: 11/26/16 12:24 Dose: 40 mg Rifaximin (Xifaxan) 550 mg PO BID [facility] PRN Reason: Protocol Last Admin: 11/19/16 14:57 Dose: Not Given Results - Vital Signs Recent Vital Signs: Last Vital Signs Temp 98 F 11/26/16 12:14 Pulse 113 H 11/26/16 12:14 Resp 20 11/26/16 12:14 BP 105/66 11/26/16 12:14 Pulse Ox 97 11/26/16 06:00 - Labs Result Diagrams: 11/26/16 05:25 11/26/16 05:25 Labs: Laboratory Results - last 24 hr 11/20/16 11/25/16 11/25/16 08:28 11:53 13:20 WBC RBC Hgb Hct MCV MCH MCHC RDW Plt Count Baso % (Auto) Baso # Retic Count PT 23.0 H INR 2.13 H APTT 57.7 H pO2 VBG pH VBG pCO2 VBG HCO3 VBG Total CO2 VBG O2 Sat (Calc) VBG Base Excess VBG Potassium Sodium Chloride Glucose Lactate FiO2 Potassium Carbon Dioxide Anion Gap BUN Creatinine Est GFR ( Amer) Est GFR (Non-Af Amer) POC Glucose (mg/dL) 145 H Random Glucose Calcium Phosphorus Magnesium Total Bilirubin AST ALT Alkaline Phosphatase Total Protein Albumin Globulin Albumin/Globulin Ratio Venous Blood Potassium Ur Strep pneumoniae Ag Not detected Blood Type Antibody Screen Crossmatch BBK History Checked 11/25/16 11/25/16 11/26/16 13:22 17:59 00:07 WBC RBC Hgb Hct MCV MCH MCHC RDW Plt Count Baso % (Auto) Baso # Retic Count PT INR APTT pO2 43 VBG pH 7.39 VBG pCO2 44.0 VBG HCO3 26.6 VBG Total CO2 28.0 VBG O2 Sat (Calc) 84.5 H VBG Base Excess 1.2 VBG Potassium 3.7 Sodium 133.0 Chloride 100.0 Glucose 119 H Lactate 1.9 FiO2 21.0 Potassium Carbon Dioxide Anion Gap BUN Creatinine Est GFR ( Amer) Est GFR (Non-Af Amer) POC Glucose (mg/dL) 129 H 152 H Random Glucose Calcium Phosphorus Magnesium Total Bilirubin AST ALT Alkaline Phosphatase Total Protein Albumin Globulin Albumin/Globulin Ratio Venous Blood Potassium 3.7 Ur Strep pneumoniae Ag Blood Type Antibody Screen Crossmatch BBK History Checked 11/26/16 11/26/16 11/26/16 05:25 05:25 05:25 WBC 58.7 H* RBC 2.04 L Hgb 6.4 L* Hct 18.1 L* MCV 88.7 MCH 31.4 MCHC 35.4 RDW 20.9 H Plt Count 42 L* Baso % (Auto) 0.3 Baso # 0.16 Retic Count PT 26.3 H INR 2.44 H APTT 78.1 H* pO2 VBG pH VBG pCO2 VBG HCO3 VBG Total CO2 VBG O2 Sat (Calc) VBG Base Excess VBG Potassium Sodium 135 Chloride 97 L Glucose Lactate FiO2 Potassium 3.6 Carbon Dioxide 24 Anion Gap 18 BUN 40 H Creatinine 1.9 H Est GFR ( Amer) 36 Est GFR (Non-Af Amer) 30 POC Glucose (mg/dL) Random Glucose 125 H Calcium 7.4 L Phosphorus 4.4 Magnesium 1.8 Total Bilirubin 21.3 H* AST 279 H D ALT 77 H Alkaline Phosphatase 575 H Total Protein 5.8 Albumin 2.9 L Globulin 3.0 Albumin/Globulin Ratio 1.0 L Venous Blood Potassium Ur Strep pneumoniae Ag Blood Type Antibody Screen Crossmatch BBK History Checked 11/26/16 11/26/16 11/26/16 05:25 06:05 11:42 WBC RBC Hgb Hct MCV MCH MCHC RDW Plt Count Baso % (Auto) Baso # Retic Count 10.88 H* PT INR APTT pO2 VBG pH VBG pCO2 VBG HCO3 VBG Total CO2 VBG O2 Sat (Calc) VBG Base Excess VBG Potassium Sodium Chloride Glucose Lactate FiO2 Potassium Carbon Dioxide Anion Gap BUN Creatinine Est GFR ( Amer) Est GFR (Non-Af Amer) POC Glucose (mg/dL) 159 H Random Glucose Calcium Phosphorus Magnesium Total Bilirubin AST ALT Alkaline Phosphatase Total Protein Albumin Globulin Albumin/Globulin Ratio Venous Blood Potassium Ur Strep pneumoniae Ag Blood Type B POSITIVE Antibody Screen Negative Crossmatch See Detail BBK History Checked Patient has bt Attending/Attestation - Attestation I have personally seen and examined this patient.: Yes I have fully participated in the care of the patient.: Yes I have reviewed all pertinent clinical information: Yes
[2016-11-26] MEDS: Vancomycin 1gm in NS 250ml 1 GM/250 ML BAG IVPB SCH (12:24)
[2016-11-26] MEDS: Albumin Human 5% (12.5 gm/250 ml) IV SCH ×2 (12:58→12:59)
--- NOTE | 2016-11-26 14:29 | PN ---
DATE: SUBJECTIVE: The patient is lethargic and appears to be in discomfort. She is still on Dobutrex at 5 mcg/kg/min. PHYSICAL EXAMINATION VITAL SIGNS: Blood pressure 95/53, heart rate 108, temperature 97.9, respiration 17. HEENT: Pale conjunctivae. HEART: S1 and S2 regular. CHEST: Diminished breath sounds bilaterally. ABDOMEN: Mild ascites. EXTREMITIES: 2+ pitting edema. LABORATORY DATA: Hemoglobin and hematocrit 6.4 and 18.1, white count 58.7, and platelet count is 42,000. Today's BUN and creatinine are 40 and 1.9 respectively, glucose is 125, total bilirubin 21.3. Alkaline phosphatase 575. CT scan without contrast performed yesterday, atrophy and small vessel disease, greater than expected for the patient's age. No acute intracranial abnormality. Abdomen and pelvis CT scan, diffuse increased attenuation of the liver suggesting hemochromatosis, absent spleen, cholecystectomy with prominent common duct, probably ileus. No obstruction. Diffuse chronic wall thickening consistent with colitis. Continued ascites and anasarca. Increasing airspace disease in the lung bases, increasing pleural effusion, cardiomegaly. ASSESSMENT: 1. Status post respiratory failure. 2. Systolic heart failure. 3. Acute liver failure. 4. Ascites. 5. Anemia and thrombocytopenia. 6. Iron overload with possible liver hemochromatosis. CONDITIONS: Case was discussed with Dr. Perez. Continue current supportive measures including IV albumin. Continue also IV Flagyl and vasopressin. Abdominal paracentesis may be considered. Pedro Luis Deshpande MD
--- NOTE | 2016-11-26 14:37 | PN ---
DATE: 11/26/2016 SUBJECTIVE: The patient is seen and examined at bedside. Her mental status is unchanged. She is tracking objects with her eyes, however, not responding to verbal commands. Her CAT scan of the head yesterday did not reveal new acute intracranial pathologies, just atrophy and small vessel disease. The patient is on vasopressin 0.03 units/minute and dobutamine 5 mcg/kg/minute. Her blood pressure varies between 85 and 100 systolic, (VBG yesterday did not reveal any lactic acidosis and lactic acid level was 1.9). PHYSICAL EXAMINATION: VITAL SIGNS: Oxygen saturation 97% on nasal cannula, respiratory rate 14, heart rate 104, and temperature 97.5. HEENT: Head and neck, atraumatic. LUNGS: Decreased breath sounds bilaterally. HEART: Regular rate and rhythm. S1 and S2 distant. ABDOMEN: Soft, some anasarca present, not very much distended. No rebound tenderness. No voluntary or involuntary guarding. MUSCULOSKELETAL: Trace to 1+ bilateral pedal and ankle edema. NEUROLOGIC: The patient has cerebral palsy and prior to admission was wheelchair bound. She, however, was noted to move both upper extremities. SKIN: Moist. PSYCHIATRIC: The patient is tracking objects with her eyes, but not following verbal commands. LABORATORY DATA: WBC 8.7 (automatic counting, manually counted WBC is pending). Hemoglobin 6.4 and platelet count 42. Sodium 135, potassium 3.6,chloride 97, BUN 40, creatinine 1.9 down from 2.6 (status post hemodialysis yesterday), glucose 125, bilirubin 21.3, AST 279, ALT is 77, and alkaline phosphatase 575. MEDICATIONS: Albumin hyperoncotic and as a bolus x2 (hyperoncotic every 6 hours bolus 500 mL of 5% albumin), DuoNeb every 6 hours, D10 at 20 cc/hr per hour, TPN is pending, dobutamine, Flagyl, hydrocortisone 50 mg IV q.12 hours, Keppra, and Protonix. ASSESSMENT AND PLAN: This is a 36-year-old lady with underlying sickle cell disease and multiple vasoocclusive crises in the past complicated by stroke as a child, who came this time with distributive shock with multiorgan system failure presumably due to infection. Treated empirically with antibiotics, fluid resuscitation and supportive measures: IPV and TEACHER EMOTIONALLY IMPAIRED with subsequent improvement in end-organ status. The patient was successfully extubated after two exchange blood transfusions. Her urine output, however, never did stop and her blood pressure remained borderline. Concern for abdominal compartment syndrome was raised. Surgical consult was obtained and repeated CAT scan showed moderate ascites. Discussed this with Dr. Chandra, who mentioned that urinary bladder pressure went down from 24 yesterday to 14 mmHg today morning. Paracenthesis of moderate ascites observed on CT abdomen will be done by Dr. Whalen today. FFP and platelets were ordered. As was mentioned before it is hard to point finger at a etiology of borderline blood pressure. Possibility of new baseline BP due to chronic liver insufficiency in combination with renal failure is there. No clear cut evidence of shock syndrome The patient's lactic acidosis resolved, which also indicates likelihood of resolution of her global tissue hypoperfusion. The patient's mental status still altered. Repeated CAT scan of the head yesterday did not reveal any acute intracranial abnormalities. Neurology consult obtained. EEG is pending. Some twitching of her face muscles was noted yesterday and Keppra was given. The twitching is not seen today. Official EEG report is pending and Dr. Blake Marcus's consult appreciated. The patient remained on empiric broad-spectrum antibiotics and ID Service is following her as well. We will continue with hyperoncotic albumin supplementation and judicious fluid management. The patient is going for PICC line and tunneled catheter for chronic dialysis today by Dr. Noé Whalen. We will continue to target euvolemia, euglycemia, normothermia, and oxygen saturation more than 90%. We will continue with deep venous thrombosis and gastrointestinal prophylaxis. ccm time 40 min Rene Newton MD [facility]IS[facility]
--- NOTE | 2016-11-26 16:44 | PN ---
DATE: SUBJECTIVE: Karuna Oseguera is seen in consult as her reevaluation. I have seen this woman about a week ago, at which time, the patient was not a surgical candidate, comatose, and intubated with blood pressure at 80, on multiple pressors. INR is being very high with bilirubin over 20. I did not think she will survive any operation at all. We are asked to reevaluate the patient as the patient is improved. She is extubated and somewhat responsive. Presently, she is afebrile with a pulse of about 115, blood pressure between 80 and 120 on pressors. Getting albumin, dobutamine, heparin, Lasix, vancomycin, vasopressin, and rifaximin. CAT scan done yesterday officially read has showing diffuse attenuation of liver suggesting hemochromatosis, absent spleen, cholecystectomy with prominent common duct, ileus, no obstruction, colonic wall thickening consistent with colitis, ascites, anasarca, increasing pleural effusions, cardiomegaly, atherosclerotic disease, and with sickle cell. LABORATORY DATA: Laboratory is remarkable for white count of 58.7 somewhat down, hemoglobin 6.4, and platelet count . Coags; PTT is 78 and the PT is 26.3 with an INR of 2.44. Chemistry is remarkable for total bilirubin of 21.3, direct at some point was 18.7 that is on 30, alkaline phosphatase is 500, ALT is 77, and AST is 79. Hepatitis A, B and C are negative. Fluids positive somewhat. Hemochromatosis gene is not present. PHYSICAL EXAMINATION: GENERAL: The patient is sitting, eyes open, somewhat responsive, and does not talk. NECK: No neck vein distention. CHEST: Clear. HEART: Without murmur. ABDOMEN: Distended, firm, but not hard, tender without guarding or rebound. ASSESSMENT AND PLAN: The patient has anasarca throughout. The urine pressure was reported yesterday 25, today at 18, to be repeated. The initial step will be to drain the ascites and I spoke with Noé Whalen and he will be doing that today. The patient certainly has I believe some increased pressure in the abdomen, but if this does not work, we will move forward with a laparotomy and probably leave it with an open abdomen. Being aware that all the problems with the open abdomen. The patient is at very high risk for surgery, but I no longer believe it to be prohibitive. We will discuss with GI about sigmoidoscopy. For now surgery is deferred. A drainage of the abdominal ascites to move forward. C. diff has been repeated and negative, negative. C. diff on 11/19/2016, B antigen was positive, but the toxin was not. Corona Chandra MD
--- NOTE | 2016-11-26 18:08 | CP.PCM.PN ---
Subjective - Date & Time of Evaluation Date of Evaluation: 11/23/16 Time of Evaluation: 16:00 - Subjective Subjective: Appears comfortable, opens eyes but non verbal Objective - Vital Signs/Intake and Output Vital Signs (last 24 hours): Temp Pulse Resp BP Pulse Ox 97 F L 111 H 20 100/64 92 L 11/26/16 16:35 11/26/16 16:35 11/26/16 16:35 11/26/16 16:35 11/26/16 13:00 Intake and Output: 11/26/16 11/26/16 06:59 18:59 Intake Total 862 568 Output Total 150 Balance 712 568 - Medications Medications: Current Medications Albumin Human (Albumin Human 25% (12.5 Gm/50 Ml)) 12.5 gm IV Q6H [facility] Last Admin: 11/26/16 14:28 Dose: 12.5 gm Albuterol/Ipratropium (Duoneb 3 Mg/0.5 Mg (3 Ml) Ud) 3 ml IH [id number] [facility] Last Admin: 11/26/16 15:27 Dose: 3 ml Albuterol/Ipratropium (Duoneb 3 Mg/0.5 Mg (3 Ml) Ud) 3 ml IH [id number] PRN PRN Reason: SOB, congestion, desats Last Admin: 11/25/16 18:20 Dose: 3 ml Ergocalciferol (Drisdol 50,000 Intl Units Cap) 1 cap PO QWK [facility] Last Admin: 11/26/16 10:31 Dose: Not Given Folic Acid (Folic Acid) 1 mg PO DAILY [facility] Last Admin: 11/26/16 10:31 Dose: Not Given Furosemide (Lasix) 40 mg IVP DAILY [facility] Last Admin: 11/17/16 09:00 Dose: 40 mg Heparin Sodium (Porcine) (Heparin) 5,000 units SC Q12 [facility] PRN Reason: Protocol Last Admin: 11/16/16 21:44 Dose: Not Given Hydrocortisone Sodium Succinate (Solu-Cortef) 50 mg IVP Q12H [facility] Last Admin: 11/26/16 17:14 Dose: 50 mg Hydroxyurea (Hydrea) 500 mg PO DAILY [facility] Last Admin: 11/26/16 10:31 Dose: Not Given Vancomycin HCl (Vancomycin 1gm) 1 gm in 250 mls @ 167 mls/hr IVPB DAILY [facility] PRN Reason: Protocol Last Admin: 11/26/16 12:24 Dose: 167 mls/hr Dextrose (Dextrose 10% In Water) 500 mls @ 20 mls/hr IV .Q24H [facility] Last Admin: 11/25/16 18:42 Dose: 20 mls/hr Metronidazole (Flagyl) 500 mg in 100 mls @ 100 mls/hr IVPB Q8 [facility] PRN Reason: Protocol Last Admin: 11/26/16 17:14 Dose: 100 mls/hr Dobutamine HCl/Dextrose (Dobutamine/Dextrose 5% 500mg/250ml) 500 mg in 250 mls @ 5.647 mls/hr IV .Q24H PRN; Protocol; 2.5 MCG/KG/MIN PRN Reason: TITRATE PER PROTOCOL Last Admin: 11/25/16 05:28 Dose: 5.647 mls/hr Vasopressin 20 units/ Dextrose 101 mls @ 9.09 mls/hr IV .Q11H7M [facility]; 0.03 U/MIN PRN Reason: Protocol Last Admin: 11/25/16 21:00 Dose: 9.09 mls/hr Levetiracetam 1,000 mg/ Sodium (Chloride) 110 mls @ 460 mls/hr IV Q12 [facility] Last Admin: 11/26/16 10:46 Dose: 460 mls/hr Multivitamins/Vitamin C 10 ml/Amino Acids/Electrolytes/Dextrose 2,010 mls @ 83 mls/hr IV .Q24H [facility] Stop: 11/29/16 17:59 Fat Emulsion Intravenous (Intralipid 20%) 250 mls @ 21 mls/hr IV MWF@1800 [facility] Stop: 11/29/16 17:59 Lactic Acid (Lac-Hydrin 12% Cream (140 G)) 0 ea TOP DAILY PRN PRN Reason: Wound Multivitamins/Minerals (Therapeutic-M Tab) 1 tab PO DAILY [facility] Last Admin: 11/26/16 10:31 Dose: Not Given Pantoprazole Sodium (Protonix Inj) 40 mg IVP Q12 [facility] Last Admin: 11/26/16 12:24 Dose: 40 mg Rifaximin (Xifaxan) 550 mg PO BID [facility] PRN Reason: Protocol Last Admin: 11/19/16 14:57 Dose: Not Given - Labs Labs: 11/26/16 05:25 10/03/17 05:25 PT 26.3 Seconds (9.9-11.8) H 11/26/16 05:25 INR 2.44 (0.93-1.08) H 11/26/16 05:25 APTT 78.1 Seconds (23.7-30.8) H* 11/26/16 05:25 - Head Exam Head Exam: ATRAUMATIC - Eye Exam Eye Exam: Scleral icterus - ENT Exam ENT Exam: Mucous Membranes Dry - Respiratory Exam Respiratory Exam: NORMAL BREATHING PATTERN - Cardiovascular Exam Cardiovascular Exam: +S1, +S2 - GI/Abdominal Exam GI & Abdominal Exam: Normal Bowel Sounds - Extremities Exam Extremities Exam: Pedal Edema Assessment and Plan (1) Coagulopathy Assessment & Plan: DIC, fibrinogen slightly improved likely nutritional component. Status: Acute (2) Thrombocytopenia Assessment & Plan: secondary to DIC, possible sepsis heparin Ab negative Status: Acute (3) Sickle cell pain crisis Assessment & Plan: vasoclussive crisis with multiorgan failure s/p red cell exchange x 2 with improvement in hgb S to 5% Status: Acute (4) Iron overload due to repeated red blood cell transfusions Assessment & Plan: with liver injury Status: Acute (5) Leukocytosis Assessment & Plan: on antibiotics Status: Acute
--- NOTE | 2016-11-26 18:14 | CP.PCM.PN ---
Subjective - Date & Time of Evaluation Date of Evaluation: 11/25/16 Time of Evaluation: 19:45 - Subjective Subjective: Appears comfortable, opens eyes but nonverbal Objective - Vital Signs/Intake and Output Vital Signs (last 24 hours): Temp Pulse Resp BP Pulse Ox 97 F L 111 H 20 100/64 92 L 11/26/16 16:35 11/26/16 16:35 11/26/16 16:35 11/26/16 16:35 11/26/16 13:00 Intake and Output: 11/26/16 11/26/16 06:59 18:59 Intake Total 862 568 Output Total 150 Balance 712 568 - Medications Medications: Current Medications Albumin Human (Albumin Human 25% (12.5 Gm/50 Ml)) 12.5 gm IV Q6H [facility] Last Admin: 11/26/16 14:28 Dose: 12.5 gm Albuterol/Ipratropium (Duoneb 3 Mg/0.5 Mg (3 Ml) Ud) 3 ml IH [id number] [facility] Last Admin: 11/26/16 15:27 Dose: 3 ml Albuterol/Ipratropium (Duoneb 3 Mg/0.5 Mg (3 Ml) Ud) 3 ml IH [id number] PRN PRN Reason: SOB, congestion, desats Last Admin: 11/25/16 18:20 Dose: 3 ml Ergocalciferol (Drisdol 50,000 Intl Units Cap) 1 cap PO QWK [facility] Last Admin: 11/26/16 10:31 Dose: Not Given Folic Acid (Folic Acid) 1 mg PO DAILY [facility] Last Admin: 11/26/16 10:31 Dose: Not Given Furosemide (Lasix) 40 mg IVP DAILY [facility] Last Admin: 11/17/16 09:00 Dose: 40 mg Heparin Sodium (Porcine) (Heparin) 5,000 units SC Q12 [facility] PRN Reason: Protocol Last Admin: 11/16/16 21:44 Dose: Not Given Hydrocortisone Sodium Succinate (Solu-Cortef) 50 mg IVP Q12H [facility] Last Admin: 11/26/16 17:14 Dose: 50 mg Hydroxyurea (Hydrea) 500 mg PO DAILY [facility] Last Admin: 11/26/16 10:31 Dose: Not Given Vancomycin HCl (Vancomycin 1gm) 1 gm in 250 mls @ 167 mls/hr IVPB DAILY [facility] PRN Reason: Protocol Last Admin: 11/26/16 12:24 Dose: 167 mls/hr Dextrose (Dextrose 10% In Water) 500 mls @ 20 mls/hr IV .Q24H [facility] Last Admin: 11/25/16 18:42 Dose: 20 mls/hr Metronidazole (Flagyl) 500 mg in 100 mls @ 100 mls/hr IVPB Q8 [facility] PRN Reason: Protocol Last Admin: 11/26/16 17:14 Dose: 100 mls/hr Dobutamine HCl/Dextrose (Dobutamine/Dextrose 5% 500mg/250ml) 500 mg in 250 mls @ 5.647 mls/hr IV .Q24H PRN; Protocol; 2.5 MCG/KG/MIN PRN Reason: TITRATE PER PROTOCOL Last Admin: 11/25/16 05:28 Dose: 5.647 mls/hr Vasopressin 20 units/ Dextrose 101 mls @ 9.09 mls/hr IV .Q11H7M [facility]; 0.03 U/MIN PRN Reason: Protocol Last Admin: 11/25/16 21:00 Dose: 9.09 mls/hr Levetiracetam 1,000 mg/ Sodium (Chloride) 110 mls @ 460 mls/hr IV Q12 [facility] Last Admin: 11/26/16 10:46 Dose: 460 mls/hr Multivitamins/Vitamin C 10 ml/Amino Acids/Electrolytes/Dextrose 2,010 mls @ 83 mls/hr IV .Q24H [facility] Stop: 11/29/16 17:59 Last Admin: 11/26/16 18:00 Dose: 83 mls/hr Fat Emulsion Intravenous (Intralipid 20%) 250 mls @ 21 mls/hr IV MWF@1800 [facility] Stop: 11/29/16 17:59 Lactic Acid (Lac-Hydrin 12% Cream (140 G)) 0 ea TOP DAILY PRN PRN Reason: Wound Multivitamins/Minerals (Therapeutic-M Tab) 1 tab PO DAILY [facility] Last Admin: 11/26/16 10:31 Dose: Not Given Pantoprazole Sodium (Protonix Inj) 40 mg IVP Q12 [facility] Last Admin: 11/26/16 12:24 Dose: 40 mg Rifaximin (Xifaxan) 550 mg PO BID [facility] PRN Reason: Protocol Last Admin: 11/19/16 14:57 Dose: Not Given - Labs Labs: 11/26/16 05:25 11/26/16 05:25 PT 26.3 Seconds (9.9-11.8) H 11/26/16 05:25 INR 2.44 (0.93-1.08) H 11/26/16 05:25 APTT 78.1 Seconds (23.7-30.8) H* 11/26/16 05:25 - Head Exam Head Exam: ATRAUMATIC - Eye Exam Eye Exam: Scleral icterus - ENT Exam ENT Exam: Mucous Membranes Dry - Respiratory Exam Respiratory Exam: NORMAL BREATHING PATTERN - Cardiovascular Exam Cardiovascular Exam: +S1, +S2 - GI/Abdominal Exam GI & Abdominal Exam: Normal Bowel Sounds - Extremities Exam Extremities Exam: Pedal Edema Assessment and Plan (1) Coagulopathy Assessment & Plan: DIC, repeat fibrinogen nutritional Status: Acute (2) Thrombocytopenia Assessment & Plan: DIC heparin Ab negative Status: Acute (3) Sickle cell pain crisis Assessment & Plan: vasoclussive crisis with multiorgan failure s/p red cell exchange x 2 with improvement in hgb S to 5% Status: Acute (4) Iron overload due to repeated red blood cell transfusions Assessment & Plan: liver disease Status: Acute (5) Leukocytosis Assessment & Plan: on antibiotics Status: Acute
--- NOTE | 2016-11-26 18:19 | CP.PCM.PN ---
Subjective - Date & Time of Evaluation Date of Evaluation: 11/26/16 Time of Evaluation: 17:00 - Subjective Subjective: Appears comfortable, opens eyes non verbal Objective - Vital Signs/Intake and Output Vital Signs (last 24 hours): Temp Pulse Resp BP Pulse Ox 97 F L 111 H 20 100/64 92 L 11/26/16 16:35 11/26/16 16:35 11/26/16 16:35 11/26/16 16:35 11/26/16 13:00 Intake and Output: 11/26/16 11/26/16 06:59 18:59 Intake Total 862 568 Output Total 150 Balance 712 568 - Medications Medications: Current Medications Albumin Human (Albumin Human 25% (12.5 Gm/50 Ml)) 12.5 gm IV Q6H [facility] Last Admin: 11/26/16 14:28 Dose: 12.5 gm Albuterol/Ipratropium (Duoneb 3 Mg/0.5 Mg (3 Ml) Ud) 3 ml IH [id number] [facility] Last Admin: 11/26/16 15:27 Dose: 3 ml Albuterol/Ipratropium (Duoneb 3 Mg/0.5 Mg (3 Ml) Ud) 3 ml IH [id number] PRN PRN Reason: SOB, congestion, desats Last Admin: 11/25/16 18:20 Dose: 3 ml Ergocalciferol (Drisdol 50,000 Intl Units Cap) 1 cap PO QWK [facility] Last Admin: 11/26/16 10:31 Dose: Not Given Folic Acid (Folic Acid) 1 mg PO DAILY [facility] Last Admin: 11/26/16 10:31 Dose: Not Given Furosemide (Lasix) 40 mg IVP DAILY [facility] Last Admin: 11/17/16 09:00 Dose: 40 mg Heparin Sodium (Porcine) (Heparin) 5,000 units SC Q12 [facility] PRN Reason: Protocol Last Admin: 11/16/16 21:44 Dose: Not Given Hydrocortisone Sodium Succinate (Solu-Cortef) 50 mg IVP Q12H [facility] Last Admin: 11/26/16 17:14 Dose: 50 mg Hydroxyurea (Hydrea) 500 mg PO DAILY [facility] Last Admin: 11/26/16 10:31 Dose: Not Given Vancomycin HCl (Vancomycin 1gm) 1 gm in 250 mls @ 167 mls/hr IVPB DAILY [facility] PRN Reason: Protocol Last Admin: 11/26/16 12:24 Dose: 167 mls/hr Dextrose (Dextrose 10% In Water) 500 mls @ 20 mls/hr IV .Q24H [facility] Last Admin: 11/25/16 18:42 Dose: 20 mls/hr Metronidazole (Flagyl) 500 mg in 100 mls @ 100 mls/hr IVPB Q8 [facility] PRN Reason: Protocol Last Admin: 11/26/16 17:14 Dose: 100 mls/hr Dobutamine HCl/Dextrose (Dobutamine/Dextrose 5% 500mg/250ml) 500 mg in 250 mls @ 5.647 mls/hr IV .Q24H PRN; Protocol; 2.5 MCG/KG/MIN PRN Reason: TITRATE PER PROTOCOL Last Admin: 11/25/16 05:28 Dose: 5.647 mls/hr Vasopressin 20 units/ Dextrose 101 mls @ 9.09 mls/hr IV .Q11H7M [facility]; 0.03 U/MIN PRN Reason: Protocol Last Admin: 11/25/16 21:00 Dose: 9.09 mls/hr Levetiracetam 1,000 mg/ Sodium (Chloride) 110 mls @ 460 mls/hr IV Q12 [facility] Last Admin: 11/26/16 10:46 Dose: 460 mls/hr Multivitamins/Vitamin C 10 ml/Amino Acids/Electrolytes/Dextrose 2,010 mls @ 83 mls/hr IV .Q24H [facility] Stop: 11/29/16 17:59 Last Admin: 11/26/16 18:00 Dose: 83 mls/hr Fat Emulsion Intravenous (Intralipid 20%) 250 mls @ 21 mls/hr IV MWF@1800 [facility] Stop: 11/29/16 17:59 Lactic Acid (Lac-Hydrin 12% Cream (140 G)) 0 ea TOP DAILY PRN PRN Reason: Wound Multivitamins/Minerals (Therapeutic-M Tab) 1 tab PO DAILY [facility] Last Admin: 11/26/16 10:31 Dose: Not Given Pantoprazole Sodium (Protonix Inj) 40 mg IVP Q12 [facility] Last Admin: 11/26/16 12:24 Dose: 40 mg Rifaximin (Xifaxan) 550 mg PO BID [facility] PRN Reason: Protocol Last Admin: 11/19/16 14:57 Dose: Not Given - Labs Labs: 11/26/16 05:25 11/26/16 05:25 PT 26.3 Seconds (9.9-11.8) H 11/26/16 05:25 INR 2.44 (0.93-1.08) H 11/26/16 05:25 APTT 78.1 Seconds (23.7-30.8) H* 11/26/16 05:25 - Head Exam Head Exam: ATRAUMATIC - Eye Exam Eye Exam: Normal appearance - ENT Exam ENT Exam: Mucous Membranes Dry - Respiratory Exam Respiratory Exam: NORMAL BREATHING PATTERN - Cardiovascular Exam Cardiovascular Exam: +S1, +S2 - GI/Abdominal Exam GI & Abdominal Exam: Normal Bowel Sounds - Extremities Exam Extremities Exam: Pedal Edema Assessment and Plan (1) Coagulopathy Assessment & Plan: DIC, will repeat fibrinogen nutritional Status: Acute (2) Thrombocytopenia Assessment & Plan: DIC heparin Ab negative Status: Acute (3) Sickle cell pain crisis Assessment & Plan: vasoclussive crisis with multiorgan failure s/p red cell exchange x 2 with improvement in hgb S to 5% Status: Acute (4) Iron overload due to repeated red blood cell transfusions Assessment & Plan: with liver disease Status: Acute (5) Leukocytosis Assessment & Plan: on antibiotics Status: Acute
--- NOTE | 2016-11-26 18:33 | CP.PCM.PN ---
Subjective - Date & Time of Evaluation Date of Evaluation: 11/26/16 Time of Evaluation: 10:00 - Subjective Subjective: Patient still not able to follow commands or respond to verbal stimuli; Objective - Vital Signs/Intake and Output Vital Signs (last 24 hours): Temp Pulse Resp BP Pulse Ox 97 F L 111 H 20 100/64 92 L 11/26/16 16:35 11/26/16 16:35 11/26/16 16:35 11/26/16 16:35 11/26/16 13:00 Intake and Output: 11/26/16 11/26/16 06:59 18:59 Intake Total 862 568 Output Total 150 Balance 712 568 - Medications Medications: Current Medications Albumin Human (Albumin Human 25% (12.5 Gm/50 Ml)) 12.5 gm IV Q6H [facility] Last Admin: 11/26/16 14:28 Dose: 12.5 gm Albuterol/Ipratropium (Duoneb 3 Mg/0.5 Mg (3 Ml) Ud) 3 ml IH [id number] [facility] Last Admin: 11/26/16 15:27 Dose: 3 ml Albuterol/Ipratropium (Duoneb 3 Mg/0.5 Mg (3 Ml) Ud) 3 ml IH [id number] PRN PRN Reason: SOB, congestion, desats Last Admin: 11/25/16 18:20 Dose: 3 ml Ergocalciferol (Drisdol 50,000 Intl Units Cap) 1 cap PO QWK [facility] Last Admin: 11/26/16 10:31 Dose: Not Given Folic Acid (Folic Acid) 1 mg PO DAILY [facility] Last Admin: 11/26/16 10:31 Dose: Not Given Furosemide (Lasix) 40 mg IVP DAILY [facility] Last Admin: 11/17/16 09:00 Dose: 40 mg Heparin Sodium (Porcine) (Heparin) 5,000 units SC Q12 [facility] PRN Reason: Protocol Last Admin: 11/16/16 21:44 Dose: Not Given Hydrocortisone Sodium Succinate (Solu-Cortef) 50 mg IVP Q12H [facility] Last Admin: 11/26/16 17:14 Dose: 50 mg Hydroxyurea (Hydrea) 500 mg PO DAILY [facility] Last Admin: 11/26/16 10:31 Dose: Not Given Vancomycin HCl (Vancomycin 1gm) 1 gm in 250 mls @ 167 mls/hr IVPB DAILY [facility] PRN Reason: Protocol Last Admin: 11/26/16 12:24 Dose: 167 mls/hr Dextrose (Dextrose 10% In Water) 500 mls @ 20 mls/hr IV .Q24H [facility] Last Admin: 11/25/16 18:42 Dose: 20 mls/hr Metronidazole (Flagyl) 500 mg in 100 mls @ 100 mls/hr IVPB Q8 [facility] PRN Reason: Protocol Last Admin: 11/26/16 17:14 Dose: 100 mls/hr Dobutamine HCl/Dextrose (Dobutamine/Dextrose 5% 500mg/250ml) 500 mg in 250 mls @ 5.647 mls/hr IV .Q24H PRN; Protocol; 2.5 MCG/KG/MIN PRN Reason: TITRATE PER PROTOCOL Last Admin: 11/25/16 05:28 Dose: 5.647 mls/hr Vasopressin 20 units/ Dextrose 101 mls @ 9.09 mls/hr IV .Q11H7M [facility]; 0.03 U/MIN PRN Reason: Protocol Last Admin: 11/25/16 21:00 Dose: 9.09 mls/hr Levetiracetam 1,000 mg/ Sodium (Chloride) 110 mls @ 460 mls/hr IV Q12 [facility] Last Admin: 11/26/16 10:46 Dose: 460 mls/hr Multivitamins/Vitamin C 10 ml/Amino Acids/Electrolytes/Dextrose 2,010 mls @ 83 mls/hr IV .Q24H [facility] Stop: 11/29/16 17:59 Last Admin: 11/26/16 18:00 Dose: 83 mls/hr Fat Emulsion Intravenous (Intralipid 20%) 250 mls @ 21 mls/hr IV MWF@1800 [facility] Stop: 11/29/16 17:59 Lactic Acid (Lac-Hydrin 12% Cream (140 G)) 0 ea TOP DAILY PRN PRN Reason: Wound Multivitamins/Minerals (Therapeutic-M Tab) 1 tab PO DAILY [facility] Last Admin: 11/26/16 10:31 Dose: Not Given Pantoprazole Sodium (Protonix Inj) 40 mg IVP Q12 [facility] Last Admin: 11/26/16 12:24 Dose: 40 mg Rifaximin (Xifaxan) 550 mg PO BID [facility] PRN Reason: Protocol Last Admin: 11/19/16 14:57 Dose: Not Given - Labs Labs: 11/26/16 05:25 11/26/16 05:25 PT 26.3 Seconds (9.9-11.8) H 11/26/16 05:25 INR 2.44 (0.93-1.08) H 11/26/16 05:25 APTT 78.1 Seconds (23.7-30.8) H* 11/26/16 05:25 - Constitutional Appears: Confused - Head Exam Head Exam: NORMAL INSPECTION - Eye Exam Eye Exam: Scleral icterus - ENT Exam ENT Exam: Mucous Membranes Moist - Respiratory Exam Additional comments: rales present; - Cardiovascular Exam Cardiovascular Exam: RRR, +S1, +S2 - GI/Abdominal Exam GI & Abdominal Exam: Distended, Firm - Extremities Exam Additional comments: markedly edematous ext; - Neurological Exam Neurological Exam: Altered, Awake - Skin Skin Exam: Warm. absent: Cyanosis Assessment and Plan (1) Acute renal failure Assessment & Plan: Multifactorial with likely component of compartment syndrome (bladder pressure 22) due to edematous abdominal wall and gut as well as ascites; agree with critical care team IR consult for possible paracentesis as patient is poor surgical candidate; otherwise we will continue HD/UF sessions 4-5 times per week in an attempt to achieve net negative fluid balances; agree with A-line placement for accurate BP as this will allow us to achieve UF goals; -change temp HD cath to tunneled cath; no sign of any improvement in renal function in this patient with oliguric renal failure; Status: Acute (2) Acute hypoxemic respiratory failure Assessment & Plan: Overall much improved, may benefit from paracentesis to increase lung volumes; Status: Acute (3) Acute exacerbation of CHF (congestive heart failure) Assessment & Plan: Total body fluid overloaded, attempting net neg fluid balances with UF/HD; Status: Acute (4) Acute liver failure Status: Acute (5) Sickle cell anemia with crisis Assessment & Plan: s/p 2 prbc exchange transfusions with improvement in Hgb S levels (should help vaso-occlusive component of MELITON); f/u with heme; Status: Acute
[2016-11-26 18:38] LABS: BODY FLUID TYPE PERITONEAL/ASCITES
[2016-11-26 19:03] LABS: BF GROSS APPEARANCE SL CLOUDY (CLEAR)
[2016-11-26 19:05] LABS: BODY FLUID TOTAL COUNT 100 (0-0)
--- NOTE | 2016-11-26 19:12 | CP.PCM.PN ---
Subjective - Date & Time of Evaluation Date of Evaluation: 11/26/16 Time of Evaluation: 17:00 - Subjective Subjective: Infectious Disease Follow Up: November 26, 2016 36 yo AA female well known to me from previous hospitalizations at [facility] and [facility] presented with generalized pains and admitted for Sickle Cell vasoocclusive Crisis. The patient was just discharged from [facility] [place] a few days ago. She returns with abdominal pain, nausea, and vomiting. The patient did not exhibit a fever while hospitalized so far but came very close with a 100.0 F. Patient with nausea and vomiting and diarrhea. Her blood pressure is lower than her usual. Started on Zosyn for antibiotic treatment. Sudden elevation of LFTs. Zosyn stopped on 11/14/2016. Impending liver failure ? Acute Kidney Injury. Noted Vancomycin restarted. Would continue with Cefepime for the time being. There is a leukocytosis of 67.8 although corrected WBC is 13.0. Patient appears swollen in general. AST and ALT are still elevated but downtrending. Chelation therapy still in progress. Undergoing red cell exchange transfusion and plasmapheresis yesterday as well as hemodialysis. Patient remains intubated and ventilated. Extremely poor prognosis. The patient is not a candidate for liver transplant at this time as per the [facility] Liver transplant center. The patient is poorly responsive. Taken to EGD for cauterization. Supportive care. Renal dosing of antibiotics. Prognosis dismal. Patient had 2 red cell exchanges. Multiorgan failure. Extubated and off pressors. The patient can nod yes/no answers on occasion but doesn't always follow commands. She is able to track. The patient mentation has been worsening over the weekend. Again the patient's overall prognosis is very poor. She on HD... she has HD 4 to 5 times a week. On antibiotics for almost the entirety of this hospitalization. Will stop antibiotics at this time. Objective - Vital Signs/Intake and Output Vital Signs (last 24 hours): Temp Pulse Resp BP Pulse Ox 97 F L 111 H 20 100/64 92 L 11/26/16 16:35 11/26/16 16:35 11/26/16 16:35 11/26/16 16:35 11/26/16 13:00 Intake and Output: 11/26/16 11/26/16 06:59 18:59 Intake Total 862 568 Output Total 150 Balance 712 568 - Medications Medications: Current Medications Albumin Human (Albumin Human 25% (12.5 Gm/50 Ml)) 12.5 gm IV Q6H [facility] Last Admin: 11/26/16 14:28 Dose: 12.5 gm Albuterol/Ipratropium (Duoneb 3 Mg/0.5 Mg (3 Ml) Ud) 3 ml IH [id number] [facility] Last Admin: 11/26/16 15:27 Dose: 3 ml Albuterol/Ipratropium (Duoneb 3 Mg/0.5 Mg (3 Ml) Ud) 3 ml IH [id number] PRN PRN Reason: SOB, congestion, desats Last Admin: 11/25/16 18:20 Dose: 3 ml Ergocalciferol (Drisdol 50,000 Intl Units Cap) 1 cap PO QWK [facility] Last Admin: 11/26/16 10:31 Dose: Not Given Folic Acid (Folic Acid) 1 mg PO DAILY [facility] Last Admin: 11/26/16 10:31 Dose: Not Given Furosemide (Lasix) 40 mg IVP DAILY [facility] Last Admin: 11/17/16 09:00 Dose: 40 mg Heparin Sodium (Porcine) (Heparin) 5,000 units SC Q12 [facility] PRN Reason: Protocol Last Admin: 11/16/16 21:44 Dose: Not Given Hydrocortisone Sodium Succinate (Solu-Cortef) 50 mg IVP Q12H [facility] Last Admin: 11/26/16 17:14 Dose: 50 mg Hydroxyurea (Hydrea) 500 mg PO DAILY [facility] Last Admin: 11/26/16 10:31 Dose: Not Given Vancomycin HCl (Vancomycin 1gm) 1 gm in 250 mls @ 167 mls/hr IVPB DAILY [facility] PRN Reason: Protocol Last Admin: 11/26/16 12:24 Dose: 167 mls/hr Dextrose (Dextrose 10% In Water) 500 mls @ 20 mls/hr IV .Q24H [facility] Last Admin: 11/25/16 18:42 Dose: 20 mls/hr Metronidazole (Flagyl) 500 mg in 100 mls @ 100 mls/hr IVPB Q8 [facility] PRN Reason: Protocol Last Admin: 11/26/16 17:14 Dose: 100 mls/hr Dobutamine HCl/Dextrose (Dobutamine/Dextrose 5% 500mg/250ml) 500 mg in 250 mls @ 5.647 mls/hr IV .Q24H PRN; Protocol; 2.5 MCG/KG/MIN PRN Reason: TITRATE PER PROTOCOL Last Admin: 11/25/16 05:28 Dose: 5.647 mls/hr Vasopressin 20 units/ Dextrose 101 mls @ 9.09 mls/hr IV .Q11H7M [facility]LETTE; 0.03 U/MIN PRN Reason: Protocol Last Admin: 11/25/16 21:00 Dose: 9.09 mls/hr Levetiracetam 1,000 mg/ Sodium (Chloride) 110 mls @ 460 mls/hr IV Q12 [facility] Last Admin: 11/26/16 10:46 Dose: 460 mls/hr Multivitamins/Vitamin C 10 ml/Amino Acids/Electrolytes/Dextrose 2,010 mls @ 83 mls/hr IV .Q24H [facility] Stop: 11/29/16 17:59 Last Admin: 11/26/16 18:00 Dose: 83 mls/hr Fat Emulsion Intravenous (Intralipid 20%) 250 mls @ 21 mls/hr IV MWF@1800 [facility] Stop: 11/29/16 17:59 Lactic Acid (Lac-Hydrin 12% Cream (140 G)) 0 ea TOP DAILY PRN PRN Reason: Wound Multivitamins/Minerals (Therapeutic-M Tab) 1 tab PO DAILY [facility] Last Admin: 11/26/16 10:31 Dose: Not Given Pantoprazole Sodium (Protonix Inj) 40 mg IVP Q12 [facility] Last Admin: 11/26/16 12:24 Dose: 40 mg Rifaximin (Xifaxan) 550 mg PO BID [facility] PRN Reason: Protocol Last Admin: 11/19/16 14:57 Dose: Not Given - Labs Labs: 11/26/16 05:25 11/26/16 05:25 PT 26.3 Seconds (9.9-11.8) H 11/26/16 05:25 INR 2.44 (0.93-1.08) H 11/26/16 05:25 APTT 78.1 Seconds (23.7-30.8) H* 11/26/16 05:25 - Constitutional Appears: Non-toxic, No Acute Distress, Chronically Ill - Head Exam Additional comments: +1 facial swelling. - Eye Exam Eye Exam: EOMI, PERRL Pupil Exam: NORMAL ACCOMODATION, PERRL - ENT Exam ENT Exam: Mucous Membranes Moist, Normal External Ear Exam, TM's Normal Bilaterally - Neck Exam Neck Exam: Full ROM, Normal Inspection - Respiratory Exam Respiratory Exam: Decreased Breath Sounds, NORMAL BREATHING PATTERN. absent: Rales, Rhonchi, Wheezes - Cardiovascular Exam Cardiovascular Exam: REGULAR RHYTHM, RRR, +S1, +S2 - GI/Abdominal Exam GI & Abdominal Exam: Distended, Soft, Normal Bowel Sounds. absent: Tenderness - Extremities Exam Extremities Exam: Joint Swelling, Pedal Edema - Neurological Exam Neurological Exam: Awake Additional comments: AAO x 0-1, tracks, not following commands now. - Psychiatric Exam Additional comments: opens eyes. difficult to assess further. Can track people in room. - Skin Additional comments: general edema. Assessment and Plan - Assessment and Plan (Free Text) Assessment: 36 yo AA female with known Sickle Cell disease presenting with diarrhea and abdominal pain. Low blood pressure/borderline hypotension. Supportive care. Velarde cultures. No leukocytosis noted however. Coagulase negative staph according to FISH studies. Sudden increase in LFTs and creatinine. Continue with renal dosing of Cefepime for now. Vancomycin should be adjusted for renal function. LFT are continuing to increase. Acute Kidney Injury with creatinine of 1.9. Remains in MICU for further care. General edema of the patient. Increasing leukocytosis. Noted that the patient's cultures are negative to date. LFTs remain severely elevated. 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 Extremely poor prognosis. Extubated today. Generalized edema. Liver Cirrhosis. Not deemed a candidate for liver transplant by [facility] [place]. Patient is receiving hemodialysis. Multi-organ failure. EGD done with cauterization of an ulcer during this hospitalization. Patient's prognosis remains poor. She has been extubated and is off pressor medications. She is now awake and can track but doesn't follow commands. Mentation has been worsening over the weekend. White count is elevated ( corrected WBC was up to 13). Will stop antibiotics at this time and monitor. Thank you for allowing me to participate in the care of the patient, we will follow with you.
--- NOTE | 2016-11-26 19:41 | US ---
PROCEDURE: Ultrasound guided paracentesis. HISTORY: Ascites and abdominal pain. Possible compartment syndrome. Needs paracentesis. PHYSICIAN(S): Noé Whalen MD. TECHNIQUE: The relative risks and indications for the procedure were explained to the patient's mother and informed written consent obtained. Sonography of the abdomen was performed in a supine position. This revealed a small amount of non-loculated ascites, greatest in the lower abdomen. A puncture site was selected and the area was prepped and draped in the usual sterile fashion. 1% Xylocaine was used to anesthetize the skin and soft tissues. A 7 Divehi paracentesis catheter was trocared into the lower abdomenand 2600 cc of [place], green fluid aspirated. The appropriate labs were sent. IMPRESSION: Ultrasound-guided paracentesis in the lower abdomen. 2600 cc of fluid were aspirated. Labs were sent
[2016-11-27] MEDS: Albuterol-Ipratrop 3 mg / 0.5 (3 ml) UD IH SCH ×4 (01:11→20:00)
[2016-11-27] MEDS: Albumin Human 25% (12.5 gm/50 ml) IV SCH ×4 (02:09→21:10)
[2016-11-27] MEDS: metroNIDAZOLE IV 500 mg/100 ml 500 MG/100 ML BAG IVPB SCH ×3 (05:02→22:07)
[2016-11-27 06:14] LABS: BASO # 0.25 K/mm3 (0.0-2.0); BASO % 0.5 % (0.0-3.0); HEMATOCRIT 24.1 % (36.0-48.0); MEAN CELL VOLUME 87.6 fl (80.0-105.0); MEAN CORPUSCULAR HEMOGLOBIN 31.3 pg (25.0-35.0); MEAN CORPUSCULAR HGB CONC 35.7 g/dl (31.0-37.0); MEAN PLATELET VOLUME 9.8 fl (7.0-11.0); PLATELET COUNT 59 10^3/uL (120.0-450.0); RED CELL DISTRIBUTION WIDTH 18.3 % (11.5-14.5)
[2016-11-27 06:26] LABS: WHITE BLOOD COUNT 53.2 10^3/ul (4.5-11.0)
[2016-11-27 06:29] LABS: ALB/GLOB RATIO 1.2 (1.1-1.8); CALCIUM 7.9 mg/dL (8.4-10.5); MAGNESIUM 1.8 mg/dL (1.7-2.2); PHOSPHOROUS 4.1 mg/dL (2.5-4.5); POTASSIUM 3.2 mmol/L (3.6-5.0); TOTAL PROTEIN 6.5 g/dL (5.8-8.3)
[2016-11-27 06:31] LABS: FIBRINOGEN 132.6 mg/dL (187-400); INR 2.52 (0.93-1.08); PARTIAL THROMBOPLASTIN TIME 64.8 Seconds (23.7-30.8)
[2016-11-27] MEDS: DOBUTamine 500mg/250ml D5W 500 MG/250 ML BAG IV PRN (06:33)
--- NOTE | 2016-11-27 08:31 | CP.PCM.PN ---
<Shahla Gannon - Last Filed: 11/27/16 10:48> Subjective - Date & Time of Evaluation Date of Evaluation: 11/27/16 Time of Evaluation: 08:23 - Subjective Subjective: Neurology Progress Note for Geraldine Gardner PGY2 Patient seen and examined at bedside. As per nursing, there were no acute overnight events. Patient is resting in bed. She is not speaking upon interview. ROS could not be obtained. She is noted to have GCS of 10. She is opening eyes spontaneously, withdraws to pain and only responds with sounds. Objective - Vital Signs/Intake and Output Vital Signs (last 24 hours): Temp Pulse Resp BP Pulse Ox 97.5 F L 112 H 20 128/80 94 L 11/26/16 20:00 11/27/16 06:33 11/27/16 06:15 11/27/16 06:33 11/27/16 06:31 - Medications Medications: Current Medications Albumin Human (Albumin Human 25% (12.5 Gm/50 Ml)) 12.5 gm IV Q6H [facility] Last Admin: 11/27/16 02:09 Dose: 12.5 gm Albuterol/Ipratropium (Duoneb 3 Mg/0.5 Mg (3 Ml) Ud) 3 ml IH [id number] [facility] Last Admin: 11/27/16 07:34 Dose: 3 ml Albuterol/Ipratropium (Duoneb 3 Mg/0.5 Mg (3 Ml) Ud) 3 ml IH [id number] PRN PRN Reason: SOB, congestion, desats Last Admin: 11/25/16 18:20 Dose: 3 ml Ergocalciferol (Drisdol 50,000 Intl Units Cap) 1 cap PO QWK [facility] Last Admin: 11/26/16 10:31 Dose: Not Given Folic Acid (Folic Acid) 1 mg PO DAILY [facility] Last Admin: 11/26/16 10:31 Dose: Not Given Furosemide (Lasix) 40 mg IVP DAILY [facility] Last Admin: 11/17/16 09:00 Dose: 40 mg Heparin Sodium (Porcine) (Heparin) 5,000 units SC Q12 [facility] PRN Reason: Protocol Last Admin: 11/16/16 21:44 Dose: Not Given Hydrocortisone Sodium Succinate (Solu-Cortef) 50 mg IVP Q12H [facility] Last Admin: 11/27/16 02:07 Dose: 50 mg Hydroxyurea (Hydrea) 500 mg PO DAILY [facility] Last Admin: 11/26/16 10:31 Dose: Not Given Metronidazole (Flagyl) 500 mg in 100 mls @ 100 mls/hr IVPB Q8 [facility] PRN Reason: Protocol Last Admin: 11/27/16 05:02 Dose: 100 mls/hr Dobutamine HCl/Dextrose (Dobutamine/Dextrose 5% 500mg/250ml) 500 mg in 250 mls @ 5.647 mls/hr IV .Q24H PRN; Protocol; 2.5 MCG/KG/MIN PRN Reason: TITRATE PER PROTOCOL Last Admin: 11/27/16 06:33 Dose: 5.647 mls/hr Vasopressin 20 units/ Dextrose 101 mls @ 9.09 mls/hr IV .Q11H7M [facility]; 0.03 U/MIN PRN Reason: Protocol Last Admin: 11/25/16 21:00 Dose: 9.09 mls/hr Levetiracetam 1,000 mg/ Sodium (Chloride) 110 mls @ 460 mls/hr IV Q12 [facility] Last Admin: 11/26/16 21:02 Dose: 460 mls/hr Multivitamins/Vitamin C 10 ml/Amino Acids/Electrolytes/Dextrose 2,010 mls @ 83 mls/hr IV .Q24H [facility] Stop: 11/29/16 17:59 Last Admin: 11/26/16 18:00 Dose: 83 mls/hr Fat Emulsion Intravenous (Intralipid 20%) 250 mls @ 21 mls/hr IV MWF@1800 [facility] Stop: 11/29/16 17:59 Lactic Acid (Lac-Hydrin 12% Cream (140 G)) 0 ea TOP DAILY PRN PRN Reason: Wound Multivitamins/Minerals (Therapeutic-M Tab) 1 tab PO DAILY [facility] Last Admin: 11/26/16 10:31 Dose: Not Given Pantoprazole Sodium (Protonix Inj) 40 mg IVP Q12 [facility] Last Admin: 11/26/16 21:00 Dose: 40 mg Rifaximin (Xifaxan) 550 mg PO BID [facility] PRN Reason: Protocol Last Admin: 11/19/16 14:57 Dose: Not Given - Labs Labs: 11/27/16 05:50 11/27/16 05:50 PT 27.2 Seconds (9.9-11.8) H 11/27/16 05:50 INR 2.52 (0.93-1.08) H 11/27/16 05:50 APTT 64.8 Seconds (23.7-30.8) H 11/27/16 05:50 - Constitutional Appears: No Acute Distress - Head Exam Head Exam: ATRAUMATIC, NORMAL INSPECTION, NORMOCEPHALIC - Eye Exam Eye Exam: PERRL, Scleral icterus Pupil Exam: PERRL, Unequal - ENT Exam ENT Exam: Mucous Membranes Moist - Neck Exam Neck Exam: Full ROM - Respiratory Exam Respiratory Exam: Rhonchi, NORMAL BREATHING PATTERN. absent: Wheezes - Cardiovascular Exam Cardiovascular Exam: REGULAR RHYTHM, +S1, +S2. absent: Gallop, Rubs, Murmur - GI/Abdominal Exam GI & Abdominal Exam: Distended, Soft, Normal Bowel Sounds. absent: Tenderness - Extremities Exam Extremities Exam: Pedal Edema. absent: Calf Tenderness Additional comments: in all 4 extremities - Neurological Exam Neurological Exam: Alert, Awake, CN II-XII Intact - Skin Skin Exam: Dry, Normal Color, Warm Assessment and Plan - Assessment and Plan (Free Text) Assessment: This is a 36Y F with PMH sickle cell disease, cerebral palsy, CHF, asthma and bipolar disorder admitted 2 weeks ago for RUQ pain with n/v/d. She was found to have MELITON, hypotension, transaminitis secondary to acute chest syndrome with complicated ICU course and multiorgan dysfunction. Head CT negative for acute pathology, but shows atrophy and small vessel disease. Patient found to have AMS and R facial twitching that was not noted on exam. She is noted to have hyperbilirubinemia as well as hypotension despite being on pressors with DIC. Twitching can be secondary to history of cerebral palsy as well as metabolic derangements. AMS can be secondary to metabolic derangements alone with cerebral hypoperfusion. EEG showed bilateral slow wave forms which correlates with bilaterally cerebral dysfunction which can be secondary to metabolic derangement. This am, patient's pupils noted to be asymmetric, but both reactive to light. Since pt is in DIC, pt is at risk for intracerebral hemorrhage. Head CT was done which did not show any acute pathology without evidence of bleed. Plan: - If there are further neurological changes- recommend brain MRI - Continue adequate hydration - Maintain SBP in 120-130s for cerebral perfusion - Continue Keppra BID - Do NOT recommend other anticonvulsants due to transaminitis Case seen, discussed and reviewed with attending, Dr. Marcus. Geraldine Gannon PGY2 <Blake Marcus - Last Filed: 11/27/16 14:10> Objective - Vital Signs/Intake and Output Vital Signs (last 24 hours): Temp Pulse Resp BP Pulse Ox 97.6 F 112 H 20 128/80 94 L 11/27/16 12:00 11/27/16 06:33 11/27/16 06:15 11/27/16 06:33 11/27/16 06:31 - Medications Medications: Current Medications Albumin Human (Albumin Human 25% (12.5 Gm/50 Ml)) 12.5 gm IV Q6H [facility] Last Admin: 11/27/16 08:58 Dose: 12.5 gm Albuterol/Ipratropium (Duoneb 3 Mg/0.5 Mg (3 Ml) Ud) 3 ml IH [id number] [facility] Last Admin: 11/27/16 13:51 Dose: 3 ml Albuterol/Ipratropium (Duoneb 3 Mg/0.5 Mg (3 Ml) Ud) 3 ml IH [id number] PRN PRN Reason: SOB, congestion, desats Last Admin: 11/25/16 18:20 Dose: 3 ml Furosemide (Lasix) 40 mg IVP DAILY [facility] Last Admin: 11/17/16 09:00 Dose: 40 mg Heparin Sodium (Porcine) (Heparin) 5,000 units SC Q12 [facility] PRN Reason: Protocol Last Admin: 11/16/16 21:44 Dose: Not Given Hydrocortisone Sodium Succinate (Solu-Cortef) 50 mg IVP Q12H [facility] Last Admin: 11/27/16 02:07 Dose: 50 mg Metronidazole (Flagyl) 500 mg in 100 mls @ 100 mls/hr IVPB Q8 [facility] PRN Reason: Protocol Last Admin: 11/27/16 05:02 Dose: 100 mls/hr Dobutamine HCl/Dextrose (Dobutamine/Dextrose 5% 500mg/250ml) 500 mg in 250 mls @ 5.647 mls/hr IV .Q24H PRN; Protocol; 2.5 MCG/KG/MIN PRN Reason: TITRATE PER PROTOCOL Last Admin: 11/27/16 06:33 Dose: 5.647 mls/hr Vasopressin 20 units/ Dextrose 101 mls @ 9.09 mls/hr IV .Q11H7M [facility]; 0.03 U/MIN PRN Reason: Protocol Last Admin: 11/25/16 21:00 Dose: 9.09 mls/hr Levetiracetam 1,000 mg/ Sodium (Chloride) 110 mls @ 460 mls/hr IV Q12 [facility] Last Admin: 11/27/16 10:12 Dose: 460 mls/hr Multivitamins/Vitamin C 10 ml/Amino Acids/Electrolytes/Dextrose 2,010 mls @ 83 mls/hr IV .Q24H [facility] Stop: 11/29/16 17:59 Last Admin: 11/26/16 18:00 Dose: 83 mls/hr Fat Emulsion Intravenous (Intralipid 20%) 250 mls @ 21 mls/hr IV MWF@1800 [facility] Stop: 11/29/16 17:59 Lactic Acid (Lac-Hydrin 12% Cream (140 G)) 0 ea TOP DAILY PRN PRN Reason: Wound Pantoprazole Sodium (Protonix Inj) 40 mg IVP Q12 [facility] Last Admin: 11/27/16 10:16 Dose: 40 mg Rifaximin (Xifaxan) 550 mg PO BID [facility] PRN Reason: Protocol Last Admin: 11/19/16 14:57 Dose: Not Given - Labs Labs: 11/27/16 05:50 11/27/16 05:50 PT 27.2 Seconds (9.9-11.8) H 11/27/16 05:50 INR 2.52 (0.93-1.08) H 11/27/16 05:50 APTT 64.8 Seconds (23.7-30.8) H 11/27/16 05:50 Attending/Attestation - Attestation I have personally seen and examined this patient.: Yes I have fully participated in the care of the patient.: Yes I have reviewed all pertinent clinical information, including history, physical exam and plan: Yes
--- NOTE | 2016-11-27 09:56 | CT ---
PROCEDURE: CT HEAD WITHOUT CONTRAST. HISTORY: R dilated pupil as compared to left, new COMPARISON: 11/25/2016 TECHNIQUE: Axial computed tomography images were obtained through the head/brain without intravenous contrast. Radiation dose: Total exam DLP = 775 mGy-cm. This CT exam was performed using one or more of the following dose reduction techniques: Automated exposure control, adjustment of the mA and/or kV according to patient size, and/or use of iterative reconstruction technique. FINDINGS: HEMORRHAGE: No intracranial hemorrhage. BRAIN: No mass effect or edema. Global cerebral atrophy - bleed to be greater than that expected for patient's 36 years of age is noted VENTRICLES: Unremarkable. No hydrocephalus. CALVARIUM: Unremarkable. PARANASAL SINUSES: The retention cyst/polyp in the right maxillary sinus, left frontal sinus, left sphenoid air cell and mild mucosal thickening in the right ethmoid air cells are similar appear. MASTOID AIR CELLS: Unremarkable as visualized. No inflammatory changes. OTHER FINDINGS: Motion artifact renoted -present on prior study is well IMPRESSION: No interval intracranial hemorrhage or mass effect the global cerebral atrophy is believe greater than that expected for patient's 36 years of age If there is a persistent focal neurologic deficit and an ongoing clinical concern for acute infarction, an MRI of the brain without intravenous contrast would be a more sensitive modality for evaluation of hyperacute/acute ischemic infarction.
[2016-11-27] MEDS: levETIRAcetam 1,000 MG in Sodium Chloride 0.9% 100 ML IV SCH ×2 (10:12→22:05)
[2016-11-27] MEDS: Multivitamin With Minerals Tab PO SCH (10:18)
[2016-11-27] MEDS ORDERED: Lidocaine 2% Inj (20ml) ONE (11:21)
[2016-11-27] MEDS ORDERED: Midazolam 2 MG/2 ML VIAL ONE (12:00)
[2016-11-27] MEDS ORDERED: DOBUTamine 500mg/250ml D5W 500 MG/250 ML BAG ONE (12:03)
--- NOTE | 2016-11-27 12:03 | CP.PCM.PN ---
Subjective - Date & Time of Evaluation Date of Evaluation: 11/27/16 Time of Evaluation: 07:30 - Subjective Subjective: General Surgery Progress Note for Dr. Chandra Patient seen and examined at bedside. No acute event overnight. Patient had IR tap yesterday with 2 L of ascitic fluid removed. Patient is still alert but does not respond to questioning. She does react to verbal and tactile stimuli. She is scheduled for dialysis today. Objective - Vital Signs/Intake and Output Vital Signs (last 24 hours): Temp Pulse Resp BP Pulse Ox 97.5 F L 112 H 20 128/80 94 L 11/26/16 20:00 11/27/16 06:33 11/27/16 06:15 11/27/16 06:33 11/27/16 06:31 - Medications Medications: Current Medications Albumin Human (Albumin Human 25% (12.5 Gm/50 Ml)) 12.5 gm IV Q6H [facility] Last Admin: 11/27/16 08:58 Dose: 12.5 gm Albuterol/Ipratropium (Duoneb 3 Mg/0.5 Mg (3 Ml) Ud) 3 ml IH [id number] [facility] Last Admin: 11/27/16 07:34 Dose: 3 ml Albuterol/Ipratropium (Duoneb 3 Mg/0.5 Mg (3 Ml) Ud) 3 ml IH [id number] PRN PRN Reason: SOB, congestion, desats Last Admin: 11/25/16 18:20 Dose: 3 ml Furosemide (Lasix) 40 mg IVP DAILY [facility] Last Admin: 11/17/16 09:00 Dose: 40 mg Heparin Sodium (Porcine) (Heparin) 5,000 units SC Q12 [facility] PRN Reason: Protocol Last Admin: 11/16/16 21:44 Dose: Not Given Hydrocortisone Sodium Succinate (Solu-Cortef) 50 mg IVP Q12H [facility] Last Admin: 11/27/16 02:07 Dose: 50 mg Metronidazole (Flagyl) 500 mg in 100 mls @ 100 mls/hr IVPB Q8 [facility] PRN Reason: Protocol Last Admin: 11/27/16 05:02 Dose: 100 mls/hr Dobutamine HCl/Dextrose (Dobutamine/Dextrose 5% 500mg/250ml) 500 mg in 250 mls @ 5.647 mls/hr IV .Q24H PRN; Protocol; 2.5 MCG/KG/MIN PRN Reason: TITRATE PER PROTOCOL Last Admin: 11/27/16 06:33 Dose: 5.647 mls/hr Vasopressin 20 units/ Dextrose 101 mls @ 9.09 mls/hr IV .Q11H7M [facility]; 0.03 U/MIN PRN Reason: Protocol Last Admin: 11/25/16 21:00 Dose: 9.09 mls/hr Levetiracetam 1,000 mg/ Sodium (Chloride) 110 mls @ 460 mls/hr IV Q12 [facility] Last Admin: 11/27/16 10:12 Dose: 460 mls/hr Multivitamins/Vitamin C 10 ml/Amino Acids/Electrolytes/Dextrose 2,010 mls @ 83 mls/hr IV .Q24H [facility] Stop: 11/29/16 17:59 Last Admin: 11/26/16 18:00 Dose: 83 mls/hr Fat Emulsion Intravenous (Intralipid 20%) 250 mls @ 21 mls/hr IV MWF@1800 [facility] Stop: 11/29/16 17:59 Lactic Acid (Lac-Hydrin 12% Cream (140 G)) 0 ea TOP DAILY PRN PRN Reason: Wound Pantoprazole Sodium (Protonix Inj) 40 mg IVP Q12 [facility] Last Admin: 11/27/16 10:16 Dose: 40 mg Rifaximin (Xifaxan) 550 mg PO BID [facility] PRN Reason: Protocol Last Admin: 11/19/16 14:57 Dose: Not Given - Labs Labs: 11/27/16 05:50 11/27/16 05:50 PT 27.2 Seconds (9.9-11.8) H 11/27/16 05:50 INR 2.52 (0.93-1.08) H 11/27/16 05:50 APTT 64.8 Seconds (23.7-30.8) H 11/27/16 05:50 - Constitutional Appears: In Acute Distress (labored breathing, uncomfortable), Chronically Ill - Head Exam Head Exam: ATRAUMATIC, NORMOCEPHALIC - ENT Exam ENT Exam: Mucous Membranes Moist - Respiratory Exam Additional comments: labored breathing r sided portacath in chest - Cardiovascular Exam Cardiovascular Exam: Tachycardia - GI/Abdominal Exam GI & Abdominal Exam: Distended, Firm - Extremities Exam Extremities Exam: Pedal Edema Additional comments: all 4 extremities edematous dialysis catheter in L groin - Neurological Exam Neurological Exam: Alert, Awake - Psychiatric Exam Psychiatric exam: Flat Affect - Skin Skin Exam: Dry, Warm Assessment and Plan - Assessment and Plan (Free Text) Plan: 36 F with abdominal compartment syndrome, s/p IR tap POD #1 -Monitor abdominal pressure, s/p IR tap it was 13 (2 L of ascitic fluid removed ) -Serial abd exam -JHON -Monitor labs -Patient is poor surgical candidate -No surgical intervention at this time -further recs as per Dr. Prateek Benoit PGY1
[2016-11-27] MEDS ORDERED: Iodixanol 320 MG/ML 100 ML BOTTLE IV ONE (12:30)
--- NOTE | 2016-11-27 12:46 | CP.CCUPN ---
<Johnny Gonzales - Last Filed: 11/27/16 16:38> CCU Subjective - Physician Review Subjective (Free Text): 11/27/16 12:43 Patient seen and examined at bedside in the ICU. Remains extubated, off pressors, on regular NC. Yesterday, underwent paracentesis, with 2.6L removed; repeat bladder pressure after procedure noted to be 14. Overnight, no acute events reported. Patient's mental status remains unchanged from prior exam; not following commands, minimal tracking of staff in room, and non-verbal. Does not appear to be in acute distress. Was newly found to have a dilated R pupil as compared to L on exam this AM, Neurology notified. CCU Objective - Vital Signs / Intake & Output Vital Signs (Last 4 hours): Vital Signs Temp 11/27/16 12:00 97.6 F Intake and Output (Last 8hrs): Intake & Output 11/26/16 11/27/16 11/27/16 22:59 06:59 14:59 Intake Total 20 Balance 20 Intake: Blood Product 0 Red Blood Cells Cpd As1 0 Lr Unit [id number] Other 20 Red Blood Cells Cpd As1 20 Lr Unit [id number] - Physical Exam Head: Positive for: Atraumatic, Normocephalic. Negative for: Ecchymosis, Abrasion, Laceration Pupils: Positive for: PERRL, Other (Unequal, R pupil dilated as compared to L, but both reactive to light). Negative for: Sluggish, Non-Reactive, Pinpoint Extroacular Muscles: Positive for: Other (not following commands, minimal attempts to avoid direct light challenge for PERRL assessment; able to track across room but doing so less now, more likely due to mental status than occular issue) Conjunctiva: Positive for: Icteric. Negative for: Normal, Injected Mouth: Positive for: Normal Lips, Normal Tounge (healed lac on underside of tongue). Negative for: Moist Mucous Membranes, Normal Teeth (poor dentition) Pharnyx: Positive for: Other (no gross bleeding/oozing sites) Nose (External): Positive for: Atraumatic, Other (no expistaxis or oozing/ crusting around the nares). Negative for: Abrasion, Contusion, Laceration Nose (Internal): Negative for: Epistaxis Neck: Positive for: Normal Range of Motion (Able to move head appropriately to track staff/loud verbal/noxious physical stimuli, doing so less frequently, but passive ROM if head remains intact), Trachea Midline. Negative for: JVD Respiratory/Chest: Positive for: Good Air Exchange, Rhonchi (diffusely ronchorous in all haider, presents with inspiration and expiration, also ausculated in neck), Other (R port in place- clean and dry, covered with bandaging; wearing regular nasal canula at 5L and satting well). Negative for: Clear to Auscultation (Mild ronchi in all haider, most prominent at expiration) , Respiratory Distress, Accessory Muscle Use, Decreased Breath Sounds, Rales, Retracting Cardiovascular: Positive for: Normal S1, S2, Tachycardic (Rapid rate, regular rhythm). Negative for: Regular Rate and Rhythm, Murmurs, Irregular Rhythm, Bradycardic Abdomen: Positive for: Distention (improved firmness/distension s/p paracentesis , but still notable firmness on exam). Negative for: Tenderness, Normal Bowel Sounds (decreased and distant bowel sounds), Rebound, Guarding, Hernias Back: Positive for: Normal Inspection Upper Extremity: Positive for: Edema (Improved edema in bilateral UE, +1-2 pitting edema extending from hand to mid-humerus of RUE, +1-2 pitting edema extending from hand to mid-humerus of LUE), Swelling, Temperature Abnormalties ( mild coolness to palpation at bilateral hands). Negative for: Normal Inspection , Cyanosis, NORMAL PULSES (faintly palpable radials B/L (possibly 2/2 edema) Duplex) Lower Extremity: Positive for: Edema (+3 pitting edema in bilateral LE extending from feet to mid-thigh), Temperature Abnormalties (coolness to palpation at bilateral feet). Negative for: Normal Inspection (Left groin with HD TLC in place- dressing with saturated sanginous strike through, site continues to ooze), NORMAL PULSES (unable to palpate bilateral dorsalis pedis, likely 2/2 edema, but clearly demonstrated with bedside doppler), Cyanosis, Erythema Neurological: Positive for: Other (bilateral Plantar reflexes intact, intermittently moving head and eyes to track staff in room). Negative for: GCS= 15 (score of 9 (E4 V1 M4)), CN II-XII Intact (unable to fully assess, not following commands; Pupilary reflex intact, some scattered eye movements to avoid direct light, protecting airway ), Speech Normal (non-verbal), Motor Func Grossly Intact Skin: Positive for: Warm (except as documented in extremities exams), Dry, Normal Color. Negative for: Rashes Psychiatric: Positive for: Other (unable to assess, non-verbal, not following any command or nodding/shaking head for any questions) - Medications Active Medications: Active Medications Generic Name Dose Route Start Last Admin Trade Name Freq PRN Reason Stop Dose Admin Albumin Human 12.5 gm 11/26/16 08:15 11/27/16 08:58 Albumin Human 25% (12.5 Gm/50 Ml) IV 12.5 gm Q6H ARLETTE Administration Albuterol/Ipratropium 3 ml 11/16/16 14:00 11/27/16 07:34 Duoneb 3 Mg/0.5 Mg (3 Ml) Ud IH 3 ml [id number] ARLETTE Administration Albuterol/Ipratropium 3 ml 11/25/16 18:11 11/25/16 18:20 Duoneb 3 Mg/0.5 Mg (3 Ml) Ud IH 3 ml [id number] PRN Administration SOB, congestion, desats Furosemide 40 mg 11/16/16 10:00 11/17/16 09:00 Lasix IVP 40 mg DAILY ARLETTE Administration Heparin Sodium (Porcine) 5,000 units 11/13/16 01:15 11/16/16 21:44 Heparin SC Not Given Q12 ARLETTE Protocol Hydrocortisone Sodium Succinate 50 mg 11/25/16 14:00 11/27/16 02:07 Solu-Cortef IVP 50 mg Q12H ARLETTE Administration Metronidazole 500 mg in 100 mls @ 100 mls/hr 11/19/16 19:15 11/27/16 05:02 Flagyl IVPB 100 mls/hr Q8 ARLETTE Administration Protocol Dobutamine HCl/Dextrose 500 mg in 250 mls @ 5.647 mls/hr 11/20/16 07:32 11/27 06:33 Dobutamine/Dextrose 5% 500mg/250ml IV 5.647 mls/hr .Q24H PRN Administration TITRATE PER PROTOCOL Protocol 2.5 MCG/KG/MIN Vasopressin 20 units/ Dextrose 101 mls @ 9.09 mls/hr 11/25/16 10:45 11/25/16 21:00 IV 9.09 mls/hr .Q11H7M ARLETTE Administration Protocol 0.03 U/MIN Levetiracetam 1,000 mg/ Sodium 110 mls @ 460 mls/hr 11/26/16 10:00 11/27/16 10:12 Chloride IV 460 mls/hr Q12 ARLETTE Administration Multivitamins/Vitamin C 10 ml/ 2,010 mls @ 83 mls/hr 11/26/16 18:00 11/26/16 18:00 Amino Acids/Electrolytes/ IV 11/29/16 17:59 83 mls/hr Dextrose .Q24H ARLETTE Administration Fat Emulsion Intravenous 250 mls @ 21 mls/hr 11/27/16 18:00 Intralipid 20% IV 11/29/16 17:59 MWF@1800 ARLETTE Lactic Acid 0 ea 11/13/16 09:22 Lac-Hydrin 12% Cream (140 G) TOP DAILY PRN Wound Pantoprazole Sodium 40 mg 11/19/16 22:00 11/27/16 10:16 Protonix Inj IVP 40 mg Q12 ARLETTE Administration Rifaximin 550 mg 11/18/16 10:15 11/19/16 14:57 Xifaxan PO Not Given BID [facility] Protocol - Patient Studies Lab Studies: Lab Studies 11/27/16 11/27/16 11/27/16 Range/Units 06:25 05:50 05:50 WBC (4.5-11.0) 10^3/ul RBC (3.5-6.1) 10^6/uL Hgb (12.0-16.0) g/dL Hct (36.0-48.0) % MCV (80.0-105.0) fl MCH (25.0-35.0) pg MCHC (31.0-37.0) g/dl RDW (11.5-14.5) % Plt Count (120.0-450.0) 10^3/uL MPV (7.0-11.0) fl Baso % (Auto) (0.0-3.0) % Baso # (0.0-2.0) K/mm3 PT 27.2 H (9.9-11.8) Seconds INR 2.52 H (0.93-1.08) APTT 64.8 H (23.7-30.8) Seconds Fibrinogen 132.6 L (187-400) mg/dL Sodium 136 (132-148) mmol/L Potassium 3.2 L (3.6-5.0) mmol/L Chloride 97 L (98-107) mmol/L Carbon Dioxide 18 L (21-33) mmol/L Anion Gap 24 H (10-20) BUN 42 H (7-21) mg/dL Creatinine 2.1 H (0.7-1.2) mg/dL Est GFR ( Amer) 32 Est GFR (Non-Af Amer) 26 POC Glucose (mg/dL) 255 H (65-110) mg/dL Random Glucose 214 H (70-110) mg/dL Calcium 7.9 L (8.4-10.5) mg/dL Phosphorus 4.1 (2.5-4.5) mg/dL Magnesium 1.8 (1.7-2.2) mg/dL Total Bilirubin 24.0 H* (0.2-1.3) mg/dL AST 220 H D (14-36) U/L ALT 60 H (7-56) U/L Alkaline Phosphatase 450 H D (38-126) U/L Total Protein 6.5 (5.8-8.3) g/dL Albumin 3.5 (3.0-4.8) g/dL Globulin 3.0 gm/dL Albumin/Globulin Ratio 1.2 (1.1-1.8) Fluid Source Fluid Appearance (CLEAR) Fluid WBC (0.0-300.0) /uL Fluid RBC (0.0-0.0) /uL Fluid Tot Cell Count (0-0) Fluid Neutrophils (0-0) % Fluid Lymphocytes (0-0) % Fld Monocyte/Macrophag Fluid Comment Heparin-induced Plt Ab Blood Type Antibody Screen Crossmatch BBK History Checked 11/27/16 11/27/16 11/26/16 Range/Units 05:50 00:13 18:37 WBC 53.2 H* (4.5-11.0) 10^3/ul RBC 2.75 L (3.5-6.1) 10^6/uL Hgb 8.6 L D (12.0-16.0) g/dL Hct 24.1 L (36.0-48.0) % MCV 87.6 (80.0-105.0) fl MCH 31.3 (25.0-35.0) pg MCHC 35.7 (31.0-37.0) g/dl RDW 18.3 H (11.5-14.5) % Plt Count 59 L (120.0-450.0) 10^3/uL MPV 9.8 (7.0-11.0) fl Baso % (Auto) 0.5 (0.0-3.0) % Baso # 0.25 (0.0-2.0) K/mm3 PT (9.9-11.8) Seconds INR (0.93-1.08) APTT (23.7-30.8) Seconds Fibrinogen (187-400) mg/dL Sodium (132-148) mmol/L Potassium (3.6-5.0) mmol/L Chloride (98-107) mmol/L Carbon Dioxide (21-33) mmol/L Anion Gap (10-20) BUN (7-21) mg/dL Creatinine (0.7-1.2) mg/dL Est GFR ( Amer) Est GFR (Non-Af Amer) POC Glucose (mg/dL) 258 H (65-110) mg/dL Random Glucose (70-110) mg/dL Calcium (8.4-10.5) mg/dL Phosphorus (2.5-4.5) mg/dL Magnesium (1.7-2.2) mg/dL Total Bilirubin (0.2-1.3) mg/dL AST (14-36) U/L ALT (7-56) U/L Alkaline Phosphatase (38-126) U/L Total Protein (5.8-8.3) g/dL Albumin (3.0-4.8) g/dL Globulin gm/dL Albumin/Globulin Ratio (1.1-1.8) Fluid Source Peritoneal/ascites Fluid Appearance Sl cloudy (CLEAR) Fluid WBC 2714.0 H (0.0-300.0) /uL Fluid RBC 1188.0 H (0.0-0.0) /uL Fluid Tot Cell Count 100 H (0-0) Fluid Neutrophils 85.3 H (0-0) % Fluid Lymphocytes 14.7 H (0-0) % Fld Monocyte/Macrophag TEST NOT PERFORMED Fluid Comment Yellow color Heparin-induced Plt Ab Blood Type Antibody Screen Crossmatch BBK History Checked 11/26/16 11/26/16 11/26/16 Range/Units 18:23 11:48 11:42 WBC (4.5-11.0) 10^3/ul RBC (3.5-6.1) 10^6/uL Hgb (12.0-16.0) g/dL Hct (36.0-48.0) % MCV (80.0-105.0) fl MCH (25.0-35.0) pg MCHC (31.0-37.0) g/dl RDW (11.5-14.5) % Plt Count (120.0-450.0) 10^3/uL MPV (7.0-11.0) fl Baso % (Auto) (0.0-3.0) % Baso # (0.0-2.0) K/mm3 PT (9.9-11.8) Seconds INR (0.93-1.08) APTT (23.7-30.8) Seconds Fibrinogen (187-400) mg/dL Sodium (132-148) mmol/L Potassium (3.6-5.0) mmol/L Chloride (98-107) mmol/L Carbon Dioxide (21-33) mmol/L Anion Gap (10-20) BUN (7-21) mg/dL Creatinine (0.7-1.2) mg/dL Est GFR ( Amer) Est GFR (Non-Af Amer) POC Glucose (mg/dL) 130 H 145 H (65-110) mg/dL Random Glucose (70-110) mg/dL Calcium (8.4-10.5) mg/dL Phosphorus (2.5-4.5) mg/dL Magnesium (1.7-2.2) mg/dL Total Bilirubin (0.2-1.3) mg/dL AST (14-36) U/L ALT (7-56) U/L Alkaline Phosphatase (38-126) U/L Total Protein (5.8-8.3) g/dL Albumin (3.0-4.8) g/dL Globulin gm/dL Albumin/Globulin Ratio (1.1-1.8) Fluid Source Fluid Appearance (CLEAR) Fluid WBC (0.0-300.0) /uL Fluid RBC (0.0-0.0) /uL Fluid Tot Cell Count (0-0) Fluid Neutrophils (0-0) % Fluid Lymphocytes (0-0) % Fld Monocyte/Macrophag Fluid Comment Heparin-induced Plt Ab Blood Type B POSITIVE Antibody Screen Negative Crossmatch See Detail BBK History Checked Patient has bt 11/21/16 Range/Units 06:00 WBC (4.5-11.0) 10^3/ul RBC (3.5-6.1) 10^6/uL Hgb (12.0-16.0) g/dL Hct (36.0-48.0) % MCV (80.0-105.0) fl MCH (25.0-35.0) pg MCHC (31.0-37.0) g/dl RDW (11.5-14.5) % Plt Count (120.0-450.0) 10^3/uL MPV (7.0-11.0) fl Baso % (Auto) (0.0-3.0) % Baso # (0.0-2.0) K/mm3 PT (9.9-11.8) Seconds INR (0.93-1.08) APTT (23.7-30.8) Seconds Fibrinogen (187-400) mg/dL Sodium (132-148) mmol/L Potassium (3.6-5.0) mmol/L Chloride (98-107) mmol/L Carbon Dioxide (21-33) mmol/L Anion Gap (10-20) BUN (7-21) mg/dL Creatinine (0.7-1.2) mg/dL Est GFR ( Amer) Est GFR (Non-Af Amer) POC Glucose (mg/dL) (65-110) mg/dL Random Glucose (70-110) mg/dL Calcium (8.4-10.5) mg/dL Phosphorus (2.5-4.5) mg/dL Magnesium (1.7-2.2) mg/dL Total Bilirubin (0.2-1.3) mg/dL AST (14-36) U/L ALT (7-56) U/L Alkaline Phosphatase (38-126) U/L Total Protein (5.8-8.3) g/dL Albumin (3.0-4.8) g/dL Globulin gm/dL Albumin/Globulin Ratio (1.1-1.8) Fluid Source Fluid Appearance (CLEAR) Fluid WBC (0.0-300.0) /uL Fluid RBC (0.0-0.0) /uL Fluid Tot Cell Count (0-0) Fluid Neutrophils (0-0) % Fluid Lymphocytes (0-0) % Fld Monocyte/Macrophag Fluid Comment Heparin-induced Plt Ab TNP Blood Type Antibody Screen Crossmatch BBK History Checked Laboratory Results - last 24 hr 11/21/16 11/26/16 11/26/16 06:00 11:42 11:48 WBC RBC Hgb Hct MCV MCH MCHC RDW Plt Count MPV Baso % (Auto) Baso # PT INR APTT Fibrinogen Sodium Potassium Chloride Carbon Dioxide Anion Gap BUN Creatinine Est GFR ( Amer) Est GFR (Non-Af Amer) POC Glucose (mg/dL) 145 H Random Glucose Calcium Phosphorus Magnesium Total Bilirubin AST ALT Alkaline Phosphatase Total Protein Albumin Globulin Albumin/Globulin Ratio Fluid Source Fluid Appearance Fluid WBC Fluid RBC Fluid Tot Cell Count Fluid Neutrophils Fluid Lymphocytes Fld Monocyte/Macrophag Fluid Comment Heparin-induced Plt Ab TNP Blood Type B POSITIVE Antibody Screen Negative Crossmatch See Detail BBK History Checked Patient has bt 11/26/16 11/26/16 11/27/16 18:23 18:37 00:13 WBC RBC Hgb Hct MCV MCH MCHC RDW Plt Count MPV Baso % (Auto) Baso # PT INR APTT Fibrinogen Sodium Potassium Chloride Carbon Dioxide Anion Gap BUN Creatinine Est GFR ( Amer) Est GFR (Non-Af Amer) POC Glucose (mg/dL) 130 H 258 H Random Glucose Calcium Phosphorus Magnesium Total Bilirubin AST ALT Alkaline Phosphatase Total Protein Albumin Globulin Albumin/Globulin Ratio Fluid Source Peritoneal/ascites Fluid Appearance Sl cloudy Fluid WBC 2714.0 H Fluid RBC 1188.0 H Fluid Tot Cell Count 100 H Fluid Neutrophils 85.3 H Fluid Lymphocytes 14.7 H Fld Monocyte/Macrophag TEST NOT PERFORMED Fluid Comment Yellow color Heparin-induced Plt Ab Blood Type Antibody Screen Crossmatch BBK History Checked 10/04/17 10/04/17 10/04/17 05:50 05:50 05:50 WBC 53.2 H* RBC 2.75 L Hgb 8.6 L D Hct 24.1 L MCV 87.6 MCH 31.3 MCHC 35.7 RDW 18.3 H Plt Count 59 L MPV 9.8 Baso % (Auto) 0.5 Baso # 0.25 PT 27.2 H INR 2.52 H APTT 64.8 H Fibrinogen 132.6 L Sodium 136 Potassium 3.2 L Chloride 97 L Carbon Dioxide 18 L Anion Gap 24 H BUN 42 H Creatinine 2.1 H Est GFR ( Amer) 32 Est GFR (Non-Af Amer) 26 POC Glucose (mg/dL) Random Glucose 214 H Calcium 7.9 L Phosphorus 4.1 Magnesium 1.8 Total Bilirubin 24.0 H* AST 220 H D ALT 60 H Alkaline Phosphatase 450 H D Total Protein 6.5 Albumin 3.5 Globulin 3.0 Albumin/Globulin Ratio 1.2 Fluid Source Fluid Appearance Fluid WBC Fluid RBC Fluid Tot Cell Count Fluid Neutrophils Fluid Lymphocytes Fld Monocyte/Macrophag Fluid Comment Heparin-induced Plt Ab Blood Type Antibody Screen Crossmatch BBK History Checked 11/27/16 06:25 WBC RBC Hgb Hct MCV MCH MCHC RDW Plt Count MPV Baso % (Auto) Baso # PT INR APTT Fibrinogen Sodium Potassium Chloride Carbon Dioxide Anion Gap BUN Creatinine Est GFR ( Amer) Est GFR (Non-Af Amer) POC Glucose (mg/dL) 255 H Random Glucose Calcium Phosphorus Magnesium Total Bilirubin AST ALT Alkaline Phosphatase Total Protein Albumin Globulin Albumin/Globulin Ratio Fluid Source Fluid Appearance Fluid WBC Fluid RBC Fluid Tot Cell Count Fluid Neutrophils Fluid Lymphocytes Fld Monocyte/Macrophag Fluid Comment Heparin-induced Plt Ab Blood Type Antibody Screen Crossmatch BBK History Checked Fingerstick Blood Sugar Results: 159 Review of Systems - Review of Systems Systems not reviewed;Unavailable: Altered Mental Status (non-verbal, not nodding /shaking head to answer questions) Critical Care Progress Note - Nutrition Nutrition: Nutrition Category Date Time Status NPO Diet [DIET] Diets 11/18/16 Dinner Ordered Assessment/Plan - Assessment and Plan (Free Text) Assessment: This is a 36 yo AA F with PMH of Sickle cell disease, Bipolar disorder, cerebral palsy, Asthma, and CHF who [place] [facility] [place] , and later developed Sickle cell crisis, Acute Chest Syndrome, GI bleed, and now has MODS. Denied for transfer to [facility] and [facility], not a candidate for liver transplant as per I[facility]. Patient now on regular NC and tolerating well. Pending tunnel cath for long-term dialysis and evaluation for LTAC. Now pending workup for dilated R pupil, concerning for CVA. Prognosis remains poor. Plan: Neuro: -Patient off sedation -GCS 9 (E4 V1 M4); persisting worsened mental status, no longer following any command or nodding yes/no to any questions -Head CT from 11/22 showing no acute intracranial abnormality, mild age related global parenchymal -Dilated R pupil on exam today, head CT obtained to r/o CVA, head CT negative for acute process, pending MRI as per Neuro -Neuro (Dr. Marcus) following, appreciate all recs -Non-verbal, not following any commands, minimal spontaneous movements Pulm: -On NC 5L and tolerating well, satting > 92% consistently -Goal SaO2 > 92% -CXR with improved bilateral infiltrates, persisting cardiomegaly Cardio: -Shock requiring dual-pressor support resolved; Vasopressin restarted for brief hypotensive episode, now resolved and discontinued -Hypovolemic shock likely 2/2 to GI bleed vs. Distributive shock likely 2/2 sepsis vs. increased viscosity 2/2 vaso-occlusive crisis -HR 90's - stable -Dobutamine IV for improved cardic function in the setting of cardiomegaly with reduced EF (35-40% on June 2016 Echo) and hypotension -doppler b/l LE US negative GI: -Acute hepatic failure 2/2 acquired hemochromatosis from multiple blood transfusions vs. vaso-occlusive crisis vs. shock liver -Monitor LFTs, coags -GI has signed off -Protonix -Patient noted to not be candidate for liver transplant -As per GI, not a candidate for NGT or Gastrostomy tube, will need TPN; tolerating TPN feeds via port-a-cath; will discuss with GI possibility of Dobhoff for PO meds that lack IV formulation -S/p paracentesis yesterday, 2.6L drawn off, cytology not consistent with SBP, but already covered with current abx regimen -As per Surgery, Bladder pressure improved to 14 after paracentesis, unlikely abdominal compartment syndrome, no surgery indicated Renal: -Cr 2.1 today (yest 1.9) -s/p 5 rounds of HD and 2 rounds of exchange transfusion -Urine output increased to 150cc, dark nya urine -given decreasing urine output and worsening renal function despite dialysis, concern for abdominal compartment syndrome, surgery reconsulted to assess and provide input -Monitor I and O's, monitor and replace electrolytes as needed -Nephrology following, appreciate all recs -Pending tunnel cath for watermelon inspector HD, likely today Heme: -Coagulopathy 2/2 Hepatic Failure, s/p multiple transfusions -Heme/Onc (Dr. Palacios) following -INR of 2.52, was 2.44 yesterday -Fibrinogen 132.6 -HgbS 5.2 post-first round of transfusion exchange, pending HgbS after 2nd exchange ID: -WBC 53.2, Afebrile -ID following, holding abx and monitoring as per ID -C. diff antigen positive, antigen negative, holding abx as per ID -Influenza type A Ab titer 1:32 and Influenza type B Ab titer 1:16 signifying possible recent or past infection Dispo: ICU, off pressors and now on NC and tolerating, TPN via port-a-cath; denied for transplant by [facility], denied for tertiary care transfer by [facility] and [facility] , prognosis poor; pending Tunnel cath for fci dialysis, then assessment for LTAC FEN: NPO, no feeds due to GI bleed, D10W 20cc/hr; Access: Peripheral IVs, R-chest port; NO NGT as per GI Consults: ID, Nephro, Heme-onc, GI (signed off), Cardio, Psych, Surgery, Palliative Code Status: Full code Case and plan discussed with attending, Dr. Noble <Real AN[facility] - Last Filed: 11/27/16 17:04> CCU Objective - Vital Signs / Intake & Output Vital Signs (Last 4 hours): Vital Signs Temp Pulse Resp BP Pulse Ox 11/27/16 16:31 106 H 22 83/49 L 97 11/27/16 16:30 107 H 22 95 11/27/16 16:23 107 H 23 90/43 L 98 11/27/16 16:22 106 H 22 11/27/16 16:21 105 H 19 11/27/16 16:20 105 H 22 11/27/16 16:19 106 H 22 11/27/16 16:18 106 H 23 11/27/16 16:17 106 H 21 11/27/16 16:15 107 H 23 11/27/16 16:01 102 H 21 124/78 99 11/27/16 16:00 97.8 F 103 H 20 97 11/27/16 15:49 108 H 22 108/43 L 96 11/27/16 15:48 108 H 22 11/27/16 15:46 108 H 22 75/28 L 97 11/27/16 15:31 109 H 23 92/48 L 94 L 11/27/16 15:30 108 H 23 77/38 L 94 L 11/27/16 15:22 109 H 23 98/50 L 95 11/27/16 15:02 112 H 24 107/60 100 11/27/16 15:00 108 H 22 96 11/27/16 14:45 110 H 21 104/58 L 97 11/27/16 14:30 111 H 21 103/44 L 97 11/27/16 14:19 110 H 19 130/79 91 L 11/27/16 14:07 105 H 18 108/59 L 96 11/27/16 14:00 107 H 110/67 96 11/27/16 13:58 106 H 16 11/27/16 13:53 106 H 19 11/27/16 13:52 104 H 18 11/27/16 13:10 105 H 17 11/27/16 13:09 105 H 27 H 11/27/16 13:08 105 H 15 11/27/16 13:07 105 H 18 11/27/16 13:06 105 H 15 - Medications Active Medications: Active Medications Generic Name Dose Route Start Last Admin Trade Name Zeeshanq PRN Reason Stop Dose Admin Albumin Human 12.5 gm 11/26/16 08:15 11/27/16 14:55 Albumin Human 25% (12.5 Gm/50 Ml) IV 12.5 gm Q6H ARLETTE Administration Albuterol/Ipratropium 3 ml 11/16/16 14:00 11/27/16 13:51 Duoneb 3 Mg/0.5 Mg (3 Ml) Ud IH 3 ml [id number] ARLETTE Administration Albuterol/Ipratropium 3 ml 11/25/16 18:11 11/25/16 18:20 Duoneb 3 Mg/0.5 Mg (3 Ml) Ud IH 3 ml [id number] PRN Administration SOB, congestion, desats Furosemide 40 mg 11/16/16 10:00 11/17/16 09:00 Lasix IVP 40 mg DAILY ARLETTE Administration Heparin Sodium (Porcine) 5,000 units 11/13/16 01:15 11/16/16 21:44 Heparin SC Not Given Q12 ARLETTE Protocol Hydrocortisone Sodium Succinate 50 mg 11/25/16 14:00 11/27/16 14:51 Solu-Cortef IVP 50 mg Q12H ARLETTE Administration Metronidazole 500 mg in 100 mls @ 100 mls/hr 11/19/16 19:15 11/27/16 14:52 Flagyl IVPB 100 mls/hr Q8 ARLETTE Administration Protocol Dobutamine HCl/Dextrose 500 mg in 250 mls @ 5.647 mls/hr 11/20/16 07:32 11/27 06:33 Dobutamine/Dextrose 5% 500mg/250ml IV 5.647 mls/hr .Q24H PRN Administration TITRATE PER PROTOCOL Protocol 2.5 MCG/KG/MIN Vasopressin 20 units/ Dextrose 101 mls @ 9.09 mls/hr 11/25/16 10:45 11/25/16 21:00 IV 9.09 mls/hr .Q11H7M ARLETTE Administration Protocol 0.03 U/MIN Levetiracetam 1,000 mg/ Sodium 110 mls @ 460 mls/hr 11/26/16 10:00 11/27/16 10:12 Chloride IV 460 mls/hr Q12 ARLETTE Administration Multivitamins/Vitamin C 10 ml/ 2,010 mls @ 83 mls/hr 11/26/16 18:00 11/26/16 18:00 Amino Acids/Electrolytes/ IV 11/29/16 17:59 83 mls/hr Dextrose .Q24H ARLETTE Administration Fat Emulsion Intravenous 250 mls @ 21 mls/hr 11/27/16 18:00 Intralipid 20% IV 11/29/16 17:59 [id number]@1800 ARLETTE Lactic Acid 0 ea 11/13/16 09:22 Lac-Hydrin 12% Cream (140 G) TOP DAILY PRN Wound Pantoprazole Sodium 40 mg 11/19/16 22:00 11/27/16 10:16 Protonix Inj IVP 40 mg Q12 ARLETTE Administration Rifaximin 550 mg 11/18/16 10:15 11/19/16 14:57 Xifaxan PO Not Given BID [facility] Protocol - Patient Studies Lab Studies: Microbiology Studies 11/26/16 18:37 Gram Stain - Final Ascitic Fluid Lab Studies 11/27/16 11/27/16 11/27/16 Range/Units 11:17 06:25 05:50 WBC (4.5-11.0) 10^3/ul RBC (3.5-6.1) 10^6/uL Hgb (12.0-16.0) g/dL Hct (36.0-48.0) % MCV (80.0-105.0) fl MCH (25.0-35.0) pg MCHC (31.0-37.0) g/dl RDW (11.5-14.5) % Plt Count (120.0-450.0) 10^3/uL MPV (7.0-11.0) fl Baso % (Auto) (0.0-3.0) % Baso # (0.0-2.0) K/mm3 PT (9.9-11.8) Seconds INR (0.93-1.08) APTT (23.7-30.8) Seconds Fibrinogen (187-400) mg/dL Sodium 136 (132-148) mmol/L Potassium 3.2 L (3.6-5.0) mmol/L Chloride 97 L (98-107) mmol/L Carbon Dioxide 18 L (21-33) mmol/L Anion Gap 24 H (10-20) BUN 42 H (7-21) mg/dL Creatinine 2.1 H (0.7-1.2) mg/dL Est GFR ( Amer) 32 Est GFR (Non-Af Amer) 26 POC Glucose (mg/dL) 270 H 255 H (65-110) mg/dL Random Glucose 214 H (70-110) mg/dL Calcium 7.9 L (8.4-10.5) mg/dL Phosphorus 4.1 (2.5-4.5) mg/dL Magnesium 1.8 (1.7-2.2) mg/dL Total Bilirubin 24.0 H* (0.2-1.3) mg/dL AST 220 H D (14-36) U/L ALT 60 H (7-56) U/L Alkaline Phosphatase 450 H D (38-126) U/L Total Protein 6.5 (5.8-8.3) g/dL Albumin 3.5 (3.0-4.8) g/dL Globulin 3.0 gm/dL Albumin/Globulin Ratio 1.2 (1.1-1.8) Fluid Source Fluid Appearance (CLEAR) Fluid WBC (0.0-300.0) /uL Fluid RBC (0.0-0.0) /uL Fluid Tot Cell Count (0-0) Fluid Neutrophils (0-0) % Fluid Lymphocytes (0-0) % Fld Monocyte/Macrophag Fluid Comment Heparin-induced Plt Ab Blood Type Antibody Screen Crossmatch BBK History Checked 11/27/16 11/27/16 11/27/16 Range/Units 05:50 05:50 00:13 WBC 53.2 H* (4.5-11.0) 10^3/ul RBC 2.75 L (3.5-6.1) 10^6/uL Hgb 8.6 L D (12.0-16.0) g/dL Hct 24.1 L (36.0-48.0) % MCV 87.6 (80.0-105.0) fl MCH 31.3 (25.0-35.0) pg MCHC 35.7 (31.0-37.0) g/dl RDW 18.3 H (11.5-14.5) % Plt Count 59 L (120.0-450.0) 10^3/uL MPV 9.8 (7.0-11.0) fl Baso % (Auto) 0.5 (0.0-3.0) % Baso # 0.25 (0.0-2.0) K/mm3 PT 27.2 H (9.9-11.8) Seconds INR 2.52 H (0.93-1.08) APTT 64.8 H (23.7-30.8) Seconds Fibrinogen 132.6 L (187-400) mg/dL Sodium (132-148) mmol/L Potassium (3.6-5.0) mmol/L Chloride (98-107) mmol/L Carbon Dioxide (21-33) mmol/L Anion Gap (10-20) BUN (7-21) mg/dL Creatinine (0.7-1.2) mg/dL Est GFR ( Amer) Est GFR (Non-Af Amer) POC Glucose (mg/dL) 258 H (65-110) mg/dL Random Glucose (70-110) mg/dL Calcium (8.4-10.5) mg/dL Phosphorus (2.5-4.5) mg/dL Magnesium (1.7-2.2) mg/dL Total Bilirubin (0.2-1.3) mg/dL AST (14-36) U/L ALT (7-56) U/L Alkaline Phosphatase (38-126) U/L Total Protein (5.8-8.3) g/dL Albumin (3.0-4.8) g/dL Globulin gm/dL Albumin/Globulin Ratio (1.1-1.8) Fluid Source Fluid Appearance (CLEAR) Fluid WBC (0.0-300.0) /uL Fluid RBC (0.0-0.0) /uL Fluid Tot Cell Count (0-0) Fluid Neutrophils (0-0) % Fluid Lymphocytes (0-0) % Fld Monocyte/Macrophag Fluid Comment Heparin-induced Plt Ab Blood Type Antibody Screen Crossmatch BBK History Checked 11/26/16 11/26/16 11/26/16 Range/Units 18:37 18:23 11:42 WBC (4.5-11.0) 10^3/ul RBC (3.5-6.1) 10^6/uL Hgb (12.0-16.0) g/dL Hct (36.0-48.0) % MCV (80.0-105.0) fl MCH (25.0-35.0) pg MCHC (31.0-37.0) g/dl RDW (11.5-14.5) % Plt Count (120.0-450.0) 10^3/uL MPV (7.0-11.0) fl Baso % (Auto) (0.0-3.0) % Baso # (0.0-2.0) K/mm3 PT (9.9-11.8) Seconds INR (0.93-1.08) APTT (23.7-30.8) Seconds Fibrinogen (187-400) mg/dL Sodium (132-148) mmol/L Potassium (3.6-5.0) mmol/L Chloride (98-107) mmol/L Carbon Dioxide (21-33) mmol/L Anion Gap (10-20) BUN (7-21) mg/dL Creatinine (0.7-1.2) mg/dL Est GFR ( Amer) Est GFR (Non-Af Amer) POC Glucose (mg/dL) 130 H (65-110) mg/dL Random Glucose (70-110) mg/dL Calcium (8.4-10.5) mg/dL Phosphorus (2.5-4.5) mg/dL Magnesium (1.7-2.2) mg/dL Total Bilirubin (0.2-1.3) mg/dL AST (14-36) U/L ALT (7-56) U/L Alkaline Phosphatase (38-126) U/L Total Protein (5.8-8.3) g/dL Albumin (3.0-4.8) g/dL Globulin gm/dL Albumin/Globulin Ratio (1.1-1.8) Fluid Source Peritoneal/ascites Fluid Appearance Sl cloudy (CLEAR) Fluid WBC 2714.0 H (0.0-300.0) /uL Fluid RBC 1188.0 H (0.0-0.0) /uL Fluid Tot Cell Count 100 H (0-0) Fluid Neutrophils 85.3 H (0-0) % Fluid Lymphocytes 14.7 H (0-0) % Fld Monocyte/Macrophag TEST NOT PERFORMED Fluid Comment Yellow color Heparin-induced Plt Ab Blood Type B POSITIVE Antibody Screen Negative Crossmatch See Detail BBK History Checked Patient has bt 11/21/16 Range/Units 06:00 WBC (4.5-11.0) 10^3/ul RBC (3.5-6.1) 10^6/uL Hgb (12.0-16.0) g/dL Hct (36.0-48.0) % MCV (80.0-105.0) fl MCH (25.0-35.0) pg MCHC (31.0-37.0) g/dl RDW (11.5-14.5) % Plt Count (120.0-450.0) 10^3/uL MPV (7.0-11.0) fl Baso % (Auto) (0.0-3.0) % Baso # (0.0-2.0) K/mm3 PT (9.9-11.8) Seconds INR (0.93-1.08) APTT (23.7-30.8) Seconds Fibrinogen (187-400) mg/dL Sodium (132-148) mmol/L Potassium (3.6-5.0) mmol/L Chloride (98-107) mmol/L Carbon Dioxide (21-33) mmol/L Anion Gap (10-20) BUN (7-21) mg/dL Creatinine (0.7-1.2) mg/dL Est GFR ( Amer) Est GFR (Non-Af Amer) POC Glucose (mg/dL) (65-110) mg/dL Random Glucose (70-110) mg/dL Calcium (8.4-10.5) mg/dL Phosphorus (2.5-4.5) mg/dL Magnesium (1.7-2.2) mg/dL Total Bilirubin (0.2-1.3) mg/dL AST (14-36) U/L ALT (7-56) U/L Alkaline Phosphatase (38-126) U/L Total Protein (5.8-8.3) g/dL Albumin (3.0-4.8) g/dL Globulin gm/dL Albumin/Globulin Ratio (1.1-1.8) Fluid Source Fluid Appearance (CLEAR) Fluid WBC (0.0-300.0) /uL Fluid RBC (0.0-0.0) /uL Fluid Tot Cell Count (0-0) Fluid Neutrophils (0-0) % Fluid Lymphocytes (0-0) % Fld Monocyte/Macrophag Fluid Comment Heparin-induced Plt Ab TNP Blood Type Antibody Screen Crossmatch BBK History Checked Laboratory Results - last 24 hr 11/21/16 11/26/16 11/26/16 06:00 11:42 18:23 WBC RBC Hgb Hct MCV MCH MCHC RDW Plt Count MPV Baso % (Auto) Baso # PT INR APTT Fibrinogen Sodium Potassium Chloride Carbon Dioxide Anion Gap BUN Creatinine Est GFR ( Amer) Est GFR (Non-Af Amer) POC Glucose (mg/dL) 130 H Random Glucose Calcium Phosphorus Magnesium Total Bilirubin AST ALT Alkaline Phosphatase Total Protein Albumin Globulin Albumin/Globulin Ratio Fluid Source Fluid Appearance Fluid WBC Fluid RBC Fluid Tot Cell Count Fluid Neutrophils Fluid Lymphocytes Fld Monocyte/Macrophag Fluid Comment Heparin-induced Plt Ab TNP Blood Type B POSITIVE Antibody Screen Negative Crossmatch See Detail BBK History Checked Patient has bt 11/26/16 11/27/16 11/27/16 18:37 00:13 05:50 WBC 53.2 H* RBC 2.75 L Hgb 8.6 L D Hct 24.1 L MCV 87.6 MCH 31.3 MCHC 35.7 RDW 18.3 H Plt Count 59 L MPV 9.8 Baso % (Auto) 0.5 Baso # 0.25 PT INR APTT Fibrinogen Sodium Potassium Chloride Carbon Dioxide Anion Gap BUN Creatinine Est GFR ( Amer) Est GFR (Non-Af Amer) POC Glucose (mg/dL) 258 H Random Glucose Calcium Phosphorus Magnesium Total Bilirubin AST ALT Alkaline Phosphatase Total Protein Albumin Globulin Albumin/Globulin Ratio Fluid Source Peritoneal/ascites Fluid Appearance Sl cloudy Fluid WBC 2714.0 H Fluid RBC 1188.0 H Fluid Tot Cell Count 100 H Fluid Neutrophils 85.3 H Fluid Lymphocytes 14.7 H Fld Monocyte/Macrophag TEST NOT PERFORMED Fluid Comment Yellow color Heparin-induced Plt Ab Blood Type Antibody Screen Crossmatch BBK History Checked 11/27/16 11/27/16 11/27/16 05:50 05:50 06:25 WBC RBC Hgb Hct MCV MCH MCHC RDW Plt Count MPV Baso % (Auto) Baso # PT 27.2 H INR 2.52 H APTT 64.8 H Fibrinogen 132.6 L Sodium 136 Potassium 3.2 L Chloride 97 L Carbon Dioxide 18 L Anion Gap 24 H BUN 42 H Creatinine 2.1 H Est GFR ( Amer) 32 Est GFR (Non-Af Amer) 26 POC Glucose (mg/dL) 255 H Random Glucose 214 H Calcium 7.9 L Phosphorus 4.1 Magnesium 1.8 Total Bilirubin 24.0 H* AST 220 H D ALT 60 H Alkaline Phosphatase 450 H D Total Protein 6.5 Albumin 3.5 Globulin 3.0 Albumin/Globulin Ratio 1.2 Fluid Source Fluid Appearance Fluid WBC Fluid RBC Fluid Tot Cell Count Fluid Neutrophils Fluid Lymphocytes Fld Monocyte/Macrophag Fluid Comment Heparin-induced Plt Ab Blood Type Antibody Screen Crossmatch BBK History Checked 11/27/16 11:17 WBC RBC Hgb Hct MCV MCH MCHC RDW Plt Count MPV Baso % (Auto) Baso # PT INR APTT Fibrinogen Sodium Potassium Chloride Carbon Dioxide Anion Gap BUN Creatinine Est GFR ( Amer) Est GFR (Non-Af Amer) POC Glucose (mg/dL) 270 H Random Glucose Calcium Phosphorus Magnesium Total Bilirubin AST ALT Alkaline Phosphatase Total Protein Albumin Globulin Albumin/Globulin Ratio Fluid Source Fluid Appearance Fluid WBC Fluid RBC Fluid Tot Cell Count Fluid Neutrophils Fluid Lymphocytes Fld Monocyte/Macrophag Fluid Comment Heparin-induced Plt Ab Blood Type Antibody Screen Crossmatch BBK History Checked Critical Care Progress Note - Nutrition Nutrition: Nutrition Category Date Time Status NPO Diet [DIET] Diets 11/18/16 Dinner Ordered Attending/Attestation - Attestation I have personally seen and examined this patient.: Yes I have fully participated in the care of the patient.: Yes I have reviewed all pertinent clinical information: Yes Notes (Text): 11/27/16 17:02 36 y/o F w/ SC disease AMS likely from hepatic encephalopathy . Liver cirrhosis and CHF ESRD on HD briefly, on UF and urine output low. Finished empiric abx course. Adjusted WBC WNL. No more fevers. On iron chelating therapy, platelets > 20K, INR< 2 and HGB appx 7. Followed by Heme/ONC and nephrology. dvt p ppi Stable for NH transfer cc time 65 min
--- NOTE | 2016-11-27 13:49 | CP.PCM.PN ---
<Landon Melchor - Last Filed: 11/27/16 13:52> Subjective - Date & Time of Evaluation Date of Evaluation: 11/27/16 Time of Evaluation: 08:16 - Subjective Subjective: Patient was seen and examined at bedside. Per nursing there were no acute events overnight. The patient does not respond to stimuli. ROS unobtainable due to current clinical condition. Objective - Vital Signs/Intake and Output Vital Signs (last 24 hours): Temp Pulse Resp BP Pulse Ox 97.6 F 112 H 20 128/80 94 L 11/27/16 12:00 11/27/16 06:33 11/27/16 06:15 11/27/16 06:33 11/27/16 06:31 - Medications Medications: Current Medications Albumin Human (Albumin Human 25% (12.5 Gm/50 Ml)) 12.5 gm IV Q6H [facility] Last Admin: 11/27/16 08:58 Dose: 12.5 gm Albuterol/Ipratropium (Duoneb 3 Mg/0.5 Mg (3 Ml) Ud) 3 ml IH [id number] ARLETTE Last Admin: 11/27/16 07:34 Dose: 3 ml Albuterol/Ipratropium (Duoneb 3 Mg/0.5 Mg (3 Ml) Ud) 3 ml IH [id number] PRN PRN Reason: SOB, congestion, desats Last Admin: 11/25/16 18:20 Dose: 3 ml Furosemide (Lasix) 40 mg IVP DAILY [facility] Last Admin: 11/17/16 09:00 Dose: 40 mg Heparin Sodium (Porcine) (Heparin) 5,000 units SC Q12 ARLETTE PRN Reason: Protocol Last Admin: 11/16/16 21:44 Dose: Not Given Hydrocortisone Sodium Succinate (Solu-Cortef) 50 mg IVP Q12H [facility]LETTE Last Admin: 11/27/16 02:07 Dose: 50 mg Metronidazole (Flagyl) 500 mg in 100 mls @ 100 mls/hr IVPB Q8 ARLETTE PRN Reason: Protocol Last Admin: 11/27/16 05:02 Dose: 100 mls/hr Dobutamine HCl/Dextrose (Dobutamine/Dextrose 5% 500mg/250ml) 500 mg in 250 mls @ 5.647 mls/hr IV .Q24H PRN; Protocol; 2.5 MCG/KG/MIN PRN Reason: TITRATE PER PROTOCOL Last Admin: 11/27/16 06:33 Dose: 5.647 mls/hr Vasopressin 20 units/ Dextrose 101 mls @ 9.09 mls/hr IV .Q11H7M ARLETTE; 0.03 U/MIN PRN Reason: Protocol Last Admin: 11/25/16 21:00 Dose: 9.09 mls/hr Levetiracetam 1,000 mg/ Sodium (Chloride) 110 mls @ 460 mls/hr IV Q12 [facility] Last Admin: 11/27/16 10:12 Dose: 460 mls/hr Multivitamins/Vitamin C 10 ml/Amino Acids/Electrolytes/Dextrose 2,010 mls @ 83 mls/hr IV .Q24H [facility] Stop: 11/29/16 17:59 Last Admin: 11/26/16 18:00 Dose: 83 mls/hr Fat Emulsion Intravenous (Intralipid 20%) 250 mls @ 21 mls/hr IV MWF@1800 [facility] Stop: 11/29/16 17:59 Lactic Acid (Lac-Hydrin 12% Cream (140 G)) 0 ea TOP DAILY PRN PRN Reason: Wound Pantoprazole Sodium (Protonix Inj) 40 mg IVP Q12 [facility] Last Admin: 11/27/16 10:16 Dose: 40 mg Rifaximin (Xifaxan) 550 mg PO BID ARLETTE PRN Reason: Protocol Last Admin: 11/19/16 14:57 Dose: Not Given - Labs Labs: 11/27/16 05:50 11/27/16 05:50 PT 27.2 Seconds (9.9-11.8) H 11/27/16 05:50 INR 2.52 (0.93-1.08) H 11/27/16 05:50 APTT 64.8 Seconds (23.7-30.8) H 11/27/16 05:50 - Constitutional Appears: Toxic, Older Than Stated Age, Chronically Ill - Head Exam Head Exam: ATRAUMATIC, NORMAL INSPECTION, NORMOCEPHALIC - Eye Exam Eye Exam: EOMI, Normal appearance, Periorbital tenderness, PERRL Pupil Exam: NORMAL ACCOMODATION, PERRL. absent: Irregular, Unequal - ENT Exam ENT Exam: Mucous Membranes Moist, Normal Oropharynx - Neck Exam Neck Exam: Normal Inspection. absent: Lymphadenopathy, Thyromegaly - Respiratory Exam Respiratory Exam: Rhonchi, Stridor. absent: Clear to Ausculation Bilateral, NORMAL BREATHING PATTERN - Cardiovascular Exam Cardiovascular Exam: REGULAR RHYTHM, +S1, +S2. absent: Gallop, RRR, Rubs - GI/Abdominal Exam GI & Abdominal Exam: Firm, Rigid - Extremities Exam Extremities Exam: Pedal Edema - Neurological Exam Neurological Exam: Altered - Skin Skin Exam: Dry Assessment and Plan - Assessment and Plan (Free Text) Assessment: 36 y/o F with PMH of Sickle cell disease, Bipolar disorder, Cerebral palsy, Asthma, CHF here for likely vaso-occlusive crisis complicated by progressive liver failure, intrahepatic cholestasis. Hospital course complicated by thrombocytopenia, coagulopathy, leukocytosis, MELITON, hepatic encephalopathy. On Dobutamine for support. Plan: 1. Likely Vaso-occlusive crisis -secondary to sickle cell disease -Hb 8.6today. s/p 1 Unit of PRBC's yesterday. -will transfuse if Hb <7. Will transfuse as needed. -Continue Hydroxyurea -Heme following, awaiting recs -transfusion exchange as per Heme and Nephro -Surgery rec's appreciated. 2. Liver disease -Patient not a candidate for liver transplantation at this time as per discussion with [facility] and [facility]. -Family doesn't want Hospice care. LTEC placement pending. -Transaminitis -Thrombocytopenia -Hyperbilirubinemia elevated and stable. Intrahepatic -Hepatology signed off -prognosis poor 3. Upper GI bleed -likely secondary to OG trauma -S/p bedside EGD on 11/19 -Patient s/p 2 Platelets and 1 FFP. Will continue to monitor closely. -Continue Protonix 40 q12 daily 4. Possible Colitis -CT - evidence of possible colitis -repeat CDiff negative. -Surgery rec's appreciated. -Low suspicion for colitis -Patient is not a candidate for surgery 5. MELITON -Nephro following -Continues to be oliguric -Dialysis recs as per nephro -Bladder pressure increased yesterday, not a surgical candidate. 6. CHF -Continue Lasix 40 mg daily -Continue Dobutamine drip -EF - 39.7% in June 2016 -Cardiology following 7. Respiratory failure -Extubated on 11/21, on High flow O2 -Continue breathing treatments 8. Leukocytosis -WBC count trending down. Will continue to monitor closely. -Blood cultures negative -Urine cultures negative -repeat CDiff negative. -ID following -Continue IV Abx 9. Electrolyte abnormalities Replete as needed. Will follow with serial cmp's. 10. PPx Protonix SCDs <[email or web address] - Last Filed: 11/28/16 14:32> Objective - Vital Signs/Intake and Output Vital Signs (last 24 hours): Temp Pulse Resp BP Pulse Ox 98 F 127 H 30 H 101/52 L 96 11/28/16 12:00 11/28/16 13:05 11/28/16 13:05 11/28/16 13:00 11/28/16 12:59 Intake and Output: 11/28/16 11/28/16 06:59 18:59 Intake Total 1997 Output Total 2470 Balance -472 - Medications Medications: Current Medications Albumin Human (Albumin Human 25% (12.5 Gm/50 Ml)) 12.5 gm IV Q6H [facility] Last Admin: 11/28/16 10:26 Dose: 12.5 gm Albuterol/Ipratropium (Duoneb 3 Mg/0.5 Mg (3 Ml) Ud) 3 ml IH [id number] ARLETTE Last Admin: 11/28/16 13:24 Dose: 3 ml Albuterol/Ipratropium (Duoneb 3 Mg/0.5 Mg (3 Ml) Ud) 3 ml IH [id number] PRN PRN Reason: SOB, congestion, desats Last Admin: 11/28/16 06:08 Dose: 3 ml Furosemide (Lasix) 40 mg IVP DAILY [facility] Last Admin: 11/17/16 09:00 Dose: 40 mg Heparin Sodium (Porcine) (Heparin) 5,000 units SC Q12 ARLETTE PRN Reason: Protocol Last Admin: 11/16/16 21:44 Dose: Not Given Hydrocortisone Sodium Succinate (Solu-Cortef) 50 mg IVP Q12H ARLETTE Last Admin: 11/28/16 01:41 Dose: 50 mg Metronidazole (Flagyl) 500 mg in 100 mls @ 100 mls/hr IVPB Q8 ARLETTE PRN Reason: Protocol Last Admin: 11/28/16 05:31 Dose: 100 mls/hr Dobutamine HCl/Dextrose (Dobutamine/Dextrose 5% 500mg/250ml) 500 mg in 250 mls @ 5.647 mls/hr IV .Q24H PRN; Protocol; 2.5 MCG/KG/MIN PRN Reason: TITRATE PER PROTOCOL Last Admin: 11/27/16 06:33 Dose: 5.647 mls/hr Vasopressin 20 units/ Dextrose 101 mls @ 9.09 mls/hr IV .Q11H7M ARLETTE; 0.03 U/MIN PRN Reason: Protocol Last Admin: 11/25/16 21:00 Dose: 9.09 mls/hr Multivitamins/Vitamin C 10 ml/Amino Acids/Electrolytes/Dextrose 2,010 mls @ 83 mls/hr IV .Q24H [facility]LETTE Stop: 11/29/16 17:59 Last Admin: 11/27/16 21:11 Dose: 83 mls/hr Fat Emulsion Intravenous (Intralipid 20%) 250 mls @ 21 mls/hr IV MWF@1800 [facility]LE[facility]E Stop: 11/29/16 17:59 Last Admin: 11/27/16 21:11 Dose: 21 mls/hr Levetiracetam 750 mg/ Sodium (Chloride) 107.5 mls @ 460 mls/hr IV Q12 ARLETTE Last Admin: 11/28/16 10:05 Dose: 460 mls/hr Pantoprazole Sodium (Protonix Inj) 40 mg IVP Q12 [facility]LETTE Last Admin: 11/28/16 10:00 Dose: 40 mg Rifaximin (Xifaxan) 550 mg PO BID ARLETTE PRN Reason: Protocol Last Admin: 11/19/16 14:57 Dose: Not Given - Labs Labs: 11/28/16 06:00 11/28/16 06:00 PT 27.7 Seconds (9.9-11.8) H 11/28/16 06:00 INR 2.56 (0.93-1.08) H 11/28/16 06:00 APTT 85.3 Seconds (23.7-30.8) H* 11/28/16 06:00 Attending/Attestation - Attestation I have personally seen and examined this patient.: Yes I have fully participated in the care of the patient.: Yes I have reviewed all pertinent clinical information, including history, physical exam and plan: Yes Notes (Text): 11/28/16 14:22 Patient was seen and examined with medical staff coordinator. 36 year old female with PMH of sickle cell disease/anemia, bipolar disorder, CHF and asthma was admitted with sickle cell crisis. Hospital course was complicated with acute liver failure, oligouric renal failure and intubation for respiratory distress .s/p intubation, shock on vasopressor .Patient is SP Plasmapheresis, UF and red cell exchange .Patient was extubated , her mental status is very poor, so far able to maintain air way.MRI of brain was negative for any acute infarct or any bleeding.Patient is on Keppra.Neurology is following. Hypoxia is better.Patient is scheduled for HD cathether placement today, on dobutamine for CHF Surgery is consulted for tense abdomen, no plan for surgical intervention as per surgery as Patient is a high risk patient.Patient abdomen is less distended and less tense after Paracentesis. Patient is currently on HD , may need long term care social worker dialysis. Patient is full code at this time. Prognosis is guarded.
--- NOTE | 2016-11-27 14:12 | MRI ---
PROCEDURE: MRI BRAIN WITHOUT CONTRAST HISTORY: Dilated R pupil, r/o stroke COMPARISON: CT of the head 11/27/2016 TECHNIQUE: Multiplanar, multisequence MR images of the brain were obtained without intravenous contrast enhancement. FINDINGS: HEMORRHAGE: None DWI: No evidence of an acute or early subacute infarction. BRAIN PARENCHYMA: No mass effect or edema. There is severe atrophy especially in the parietal lobes bilaterally. This is much greater than expected in this age group and suggests previous injury. Small bilateral subdural fluid collections are seen with a maximum thickness of 5 mm. There is no acute infarct VENTRICLES: Unremarkable. No hydrocephalus. CRANIUM: Unremarkable. ORBITS: Grossly unremarkable. PARANASAL SINUSES/MASTOIDS: Clear VASCULAR SYSTEM: Skull base flow voids intact. OTHER FINDINGS: None. IMPRESSION: Severe atrophy for this age group especially in the parietal lobes. Small bilateral subdural fluid collections.
--- NOTE | 2016-11-27 14:52 | CP.PCM.PN ---
Subjective - Date & Time of Evaluation Date of Evaluation: 11/27/16 Time of Evaluation: 13:30 - Subjective Subjective: Infectious Disease Follow Up: November 27, 2016 36 yo AA female well known to me from previous hospitalizations at [facility] and [facility] presented with generalized pains and admitted for Sickle Cell vasoocclusive Crisis. The patient was just discharged from [facility] a few days ago. She returns with abdominal pain, nausea, and vomiting. The patient did not exhibit a fever while hospitalized so far but came very close with a 100.0 F. Patient with nausea and vomiting and diarrhea. Her blood pressure is lower than her usual. Started on Zosyn for antibiotic treatment. Sudden elevation of LFTs. Zosyn stopped on 11/14/2016. Impending liver failure ? Acute Kidney Injury. Noted Vancomycin restarted. Would continue with Cefepime for the time being. There is a leukocytosis of 67.8 although corrected WBC is 13.0. Patient appears swollen in general. AST and ALT are still elevated but downtrending. Chelation therapy still in progress. Undergoing red cell exchange transfusion and plasmapheresis yesterday as well as hemodialysis. Patient remains intubated and ventilated. Extremely poor prognosis. The patient is not a candidate for liver transplant at this time as per the [facility] Liver transplant center. The patient is poorly responsive. Taken to EGD for cauterization. Supportive care. Renal dosing of antibiotics. Prognosis dismal. Patient had 2 red cell exchanges. Multiorgan failure. Extubated and off pressors. The patient can nod yes/no answers on occasion but doesn't always follow commands. She is able to track. The patient mentation has been worsening over the weekend. Again the patient's overall prognosis is very poor. She on HD... she has HD 4 to 5 times a week. On antibiotics for almost the entirety of this hospitalization. Off antibiotics at this time. Objective - Vital Signs/Intake and Output Vital Signs (last 24 hours): Temp Pulse Resp BP Pulse Ox 97.6 F 112 H 20 128/80 94 L 11/27/16 12:00 11/27/16 06:33 11/27/16 06:15 11/27/16 06:33 11/27/16 06:31 - Medications Medications: Current Medications Albumin Human (Albumin Human 25% (12.5 Gm/50 Ml)) 12.5 gm IV Q6H [facility]LETTE Last Admin: 11/27/16 08:58 Dose: 12.5 gm Albuterol/Ipratropium (Duoneb 3 Mg/0.5 Mg (3 Ml) Ud) 3 ml IH [id number] [facility]LETTE Last Admin: 11/27/16 13:51 Dose: 3 ml Albuterol/Ipratropium (Duoneb 3 Mg/0.5 Mg (3 Ml) Ud) 3 ml IH [id number] PRN PRN Reason: SOB, congestion, desats Last Admin: 11/25/16 18:20 Dose: 3 ml Furosemide (Lasix) 40 mg IVP DAILY [facility] Last Admin: 11/17/16 09:00 Dose: 40 mg Heparin Sodium (Porcine) (Heparin) 5,000 units SC Q12 [facility]LETTE PRN Reason: Protocol Last Admin: 11/16/16 21:44 Dose: Not Given Hydrocortisone Sodium Succinate (Solu-Cortef) 50 mg IVP Q12H [facility] Last Admin: 11/27/16 02:07 Dose: 50 mg Metronidazole (Flagyl) 500 mg in 100 mls @ 100 mls/hr IVPB Q8 [facility]LETTE PRN Reason: Protocol Last Admin: 11/27/16 05:02 Dose: 100 mls/hr Dobutamine HCl/Dextrose (Dobutamine/Dextrose 5% 500mg/250ml) 500 mg in 250 mls @ 5.647 mls/hr IV .Q24H PRN; Protocol; 2.5 MCG/KG/MIN PRN Reason: TITRATE PER PROTOCOL Last Admin: 11/27/16 06:33 Dose: 5.647 mls/hr Vasopressin 20 units/ Dextrose 101 mls @ 9.09 mls/hr IV .Q11H7M ARLETTE; 0.03 U/MIN PRN Reason: Protocol Last Admin: 11/25/16 21:00 Dose: 9.09 mls/hr Levetiracetam 1,000 mg/ Sodium (Chloride) 110 mls @ 460 mls/hr IV Q12 [facility] Last Admin: 11/27/16 10:12 Dose: 460 mls/hr Multivitamins/Vitamin C 10 ml/Amino Acids/Electrolytes/Dextrose 2,010 mls @ 83 mls/hr IV .Q24H [facility] Stop: 11/29/16 17:59 Last Admin: 11/26/16 18:00 Dose: 83 mls/hr Fat Emulsion Intravenous (Intralipid 20%) 250 mls @ 21 mls/hr IV MWF@1800 [facility] Stop: 11/29/16 17:59 Lactic Acid (Lac-Hydrin 12% Cream (140 G)) 0 ea TOP DAILY PRN PRN Reason: Wound Pantoprazole Sodium (Protonix Inj) 40 mg IVP Q12 [facility] Last Admin: 11/27/16 10:16 Dose: 40 mg Rifaximin (Xifaxan) 550 mg PO BID [facility]LETTE PRN Reason: Protocol Last Admin: 11/19/16 14:57 Dose: Not Given - Labs Labs: 11/27/16 05:50 11/27/16 05:50 PT 27.2 Seconds (9.9-11.8) H 11/27/16 05:50 INR 2.52 (0.93-1.08) H 11/27/16 05:50 APTT 64.8 Seconds (23.7-30.8) H 11/27/16 05:50 - Constitutional Appears: Non-toxic, No Acute Distress, Chronically Ill - Head Exam Additional comments: +1 facial swelling. - Eye Exam Eye Exam: EOMI, PERRL Pupil Exam: NORMAL ACCOMODATION, PERRL - ENT Exam ENT Exam: Mucous Membranes Moist, Normal External Ear Exam, TM's Normal Bilaterally - Neck Exam Neck Exam: Full ROM, Normal Inspection - Respiratory Exam Respiratory Exam: Decreased Breath Sounds. absent: Rales, Rhonchi, Wheezes - Cardiovascular Exam Cardiovascular Exam: REGULAR RHYTHM, RRR, +S1, +S2 - GI/Abdominal Exam GI & Abdominal Exam: Distended, Soft, Normal Bowel Sounds. absent: Tenderness - Extremities Exam Extremities Exam: Joint Swelling, Pedal Edema - Neurological Exam Neurological Exam: Awake Additional comments: AAO x 0-1, tracks, not following commands now. - Psychiatric Exam Additional comments: opens eyes. difficult to assess further. Can track people in room. - Skin Additional comments: general edema Assessment and Plan - Assessment and Plan (Free Text) Assessment: 36 yo AA female with known Sickle Cell disease presenting with diarrhea and abdominal pain. Low blood pressure/borderline hypotension. Supportive care. Velarde cultures. No leukocytosis noted however. Coagulase negative staph according to FISH studies. Sudden increase in LFTs and creatinine. Continue with renal dosing of Cefepime for now. Vancomycin should be adjusted for renal function. LFT are continuing to increase. Acute Kidney Injury with creatinine of 1.9. Remains in MICU for further care. General edema of the patient. Increasing leukocytosis. Noted that the patient's cultures are negative to date. LFTs remain severely elevated. 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 Extremely poor prognosis. Extubated today. Generalized edema. Liver Cirrhosis. Not deemed a candidate for liver transplant by [facility]. Patient is receiving hemodialysis. Multi-organ failure. EGD done with cauterization of an ulcer during this hospitalization. Patient's prognosis remains poor. She has been extubated and is off pressor medications. She is now awake and can track but doesn't follow commands. Mentation has been worsening over the weekend. White count is elevated ( corrected WBC was up to 13) and currently at 53.2. Stopped antibiotics at this time and monitor. Her prognosis remains poor. Thank you for allowing me to participate in the care of the patient, we will follow with you.
[2016-11-27] MEDS ORDERED: Fat Emulsion 20% IV 250 ML IV SCH (18:00)
--- NOTE | 2016-11-27 21:37 | PN ---
SUBJECTIVE: The patient is lethargic. She is currently undergoing hemodialysis. PHYSICAL EXAMINATION: VITAL SIGNS: Blood pressure 83/49, heart rate 106, respirations 22, temperature 98. HEENT: Deep jaundice and pale conjunctivae. CHEST: Diminished breath sounds bilaterally. HEART: S1 and S2 regular. EXTREMITIES: 1 to 2+ edema of the four extremities. LABORATORY DATA: Today's white count is 53,200, hemoglobin and hematocrit 8.6 and 24.1, platelet count is 59,000. Today's BUN and creatinine are 42 and 2.1, potassium is 3.2, total bilirubin has risen to 24 and alkaline phosphatase to 450. Brain MRI revealed severe atrophy for her age group, especially in the parietal lobe. Small bilateral subdural fluid collection. ASSESSMENT: 1. Cardiomyopathy. 2. Liver failure and deep jaundice. 3. Ascites, status post thoracentesis with the removal of 2600 mL of fluid. RECOMMENDATIONS: Continue current Dobutrex infusion. Continue IV Flagyl. Subcutaneous heparin is on hold as well as IV Lasix. Pedro Luis Deshpande MD
--- NOTE | 2016-11-27 22:57 | VASCULAR ---
PROCEDURE: Ultrasound and fluoroscopic tunneled left IJ dialysis catheter. CLINICAL HISTORY: Cerebral palsy. Acute renal failure. Needs dialysis access. PHYSICIAN(S): Noé Whalen M.D. TECHNIQUE: The relative risks and indications for the procedure were explained to the patient's mother and informed written consent obtained. The patient was placed supine on the arteriography table and the left neck/chest was prepped and draped in the usual sterile fashion. 1% Xylocaine was used to anesthetize the skin and soft tissues at the puncture site. Conscious sedation and monitoring were provided throughout the procedure by a nurse. Under direct ultrasound guidance, the leftinternal jugular vein was punctured with a micropuncture set. A guidewire would not advance centrally. Contrast injection revealed an irregular left innominate vein with multiple stenoses. Eventually, A 0.035 Glidewire was advanced into the IVC. Sequential dilatation was performed with subsequent placement of a 32 cmCannon II catheter with its tip in the right atrium. A retrograde tunnel below the left clavicle was performed. The catheter was trimmed and the hub attached. Both ports aspirate and inject easily. The catheter was secured and a dressing applied. The patient tolerated the procedure well. IMPRESSION: 1. Ultrasound and fluoroscopically placed left IJ tunneled dialysis catheter.
[2016-11-27 22:58] LABS: ARTERIAL BLOOD GAS HCO3 21.1 mmol/L (21-28); ARTERIAL BLOOD GAS O2 CAPACITY 11.3 mL/dl (16-24); ARTERIAL BLOOD GAS O2 CONTENT 11.2 ML/dl (15-23); ARTERIAL BLOOD GAS PH 7.44 (7.35-7.45); ARTERIAL BLOOD HGB O2 SAT 93.4 % (95.0-98.0); CARBOXYHEMOGLOBIN 3.9 % (0.5-1.5); HHB 0.5 % (0-5); METHEMOGLOBIN 2.3 % (0.0-3.0)
[2016-11-28] MEDS: Albuterol-Ipratrop 3 mg / 0.5 (3 ml) UD IH SCH ×4 (01:28→21:05)
[2016-11-28] MEDS: Albumin Human 25% (12.5 gm/50 ml) IV SCH ×4 (01:41→21:24)
--- NOTE | 2016-11-28 05:01 | CP.PCM.PN ---
Subjective - Date & Time of Evaluation Date of Evaluation: 11/27/16 Time of Evaluation: 11:00 - Subjective Subjective: Patient s/p IR paracentesis yesterday; started on TPN; for change of temp HD cath to tunneled catheter today; Objective - Vital Signs/Intake and Output Vital Signs (last 24 hours): Temp Pulse Resp BP Pulse Ox 99.8 F H 123 H 25 H 98/47 L 95 11/28/16 00:00 11/28/16 02:00 11/27/16 22:30 11/28/16 02:00 11/28/16 02:00 Intake and Output: 11/27/16 11/28/16 18:59 06:59 Intake Total 250 Output Total 2350 Balance -2100 - Medications Medications: Current Medications Albumin Human (Albumin Human 25% (12.5 Gm/50 Ml)) 12.5 gm IV Q6H [facility] Last Admin: 11/28/16 01:41 Dose: 12.5 gm Albuterol/Ipratropium (Duoneb 3 Mg/0.5 Mg (3 Ml) Ud) 3 ml IH [id number] [facility]TTE Last Admin: 11/28/16 01:28 Dose: 3 ml Albuterol/Ipratropium (Duoneb 3 Mg/0.5 Mg (3 Ml) Ud) 3 ml IH [id number] PRN PRN Reason: SOB, congestion, desats Last Admin: 11/25/16 18:20 Dose: 3 ml Furosemide (Lasix) 40 mg IVP DAILY [facility] Last Admin: 11/17/16 09:00 Dose: 40 mg Heparin Sodium (Porcine) (Heparin) 5,000 units SC Q12 [facility]E PRN Reason: Protocol Last Admin: 11/16/16 21:44 Dose: Not Given Hydrocortisone Sodium Succinate (Solu-Cortef) 50 mg IVP Q12H [facility] Last Admin: 11/28/16 01:41 Dose: 50 mg Metronidazole (Flagyl) 500 mg in 100 mls @ 100 mls/hr IVPB Q8 [facility]E PRN Reason: Protocol Last Admin: 11/27/16 22:07 Dose: 100 mls/hr Dobutamine HCl/Dextrose (Dobutamine/Dextrose 5% 500mg/250ml) 500 mg in 250 mls @ 5.647 mls/hr IV .Q24H PRN; Protocol; 2.5 MCG/KG/MIN PRN Reason: TITRATE PER PROTOCOL Last Admin: 11/27/16 06:33 Dose: 5.647 mls/hr Vasopressin 20 units/ Dextrose 101 mls @ 9.09 mls/hr IV .Q11H7M [facility]LETTE; 0.03 U/MIN PRN Reason: Protocol Last Admin: 11/25/16 21:00 Dose: 9.09 mls/hr Levetiracetam 1,000 mg/ Sodium (Chloride) 110 mls @ 460 mls/hr IV Q12 [facility] Last Admin: 11/27/16 22:05 Dose: 460 mls/hr Multivitamins/Vitamin C 10 ml/Amino Acids/Electrolytes/Dextrose 2,010 mls @ 83 mls/hr IV .Q24H [facility] Stop: 11/29/16 17:59 Last Admin: 11/27/16 21:11 Dose: 83 mls/hr Fat Emulsion Intravenous (Intralipid 20%) 250 mls @ 21 mls/hr IV MWF@1800 [facility] Stop: 11/29/16 17:59 Last Admin: 11/27/16 21:11 Dose: 21 mls/hr Lactic Acid (Lac-Hydrin 12% Cream (140 G)) 0 ea TOP DAILY PRN PRN Reason: Wound Pantoprazole Sodium (Protonix Inj) 40 mg IVP Q12 [facility] Last Admin: 11/27/16 22:10 Dose: 40 mg Rifaximin (Xifaxan) 550 mg PO BID [facility]LETTE PRN Reason: Protocol Last Admin: 11/19/16 14:57 Dose: Not Given - Labs Labs: 11/27/16 05:50 11/27/16 05:50 PT 27.2 Seconds (9.9-11.8) H 11/27/16 05:50 INR 2.52 (0.93-1.08) H 11/27/16 05:50 APTT 64.8 Seconds (23.7-30.8) H 11/27/16 05:50 - Constitutional Appears: Confused - Eye Exam Eye Exam: Scleral icterus - ENT Exam ENT Exam: Mucous Membranes Moist - Respiratory Exam Respiratory Exam: Clear to Ausculation Bilateral. absent: Rales, Rhonchi - Cardiovascular Exam Cardiovascular Exam: RRR, +S1, +S2 - GI/Abdominal Exam GI & Abdominal Exam: Firm - Extremities Exam Additional comments: markedly edematous; - Neurological Exam Neurological Exam: Awake - Psychiatric Exam Psychiatric exam: absent: Agitated - Skin Skin Exam: Warm. absent: Cyanosis Assessment and Plan (1) Acute renal failure Assessment & Plan: Multifactorial; now s/p IR paracentesis with 2600 cc of fluid removed and improvement in abd pressure; still oliguric renal failure; getting tunneled HD catheter in anticipation of oil heaterman need for HD which she can receive at [facility] or other facility; however, at this point, patient cannot be deemed ESRD as HD was just initiated on 11/17; need at least 4 weeks to make this technical designation; nevertheless, should preserve peripheral/central veins; as patient has port-a-cath that is now functioning after tPA given yesterday, PICC line placement being cancelled; -continuing with HD three times per week with additional UF sessions 1-2 times per week to maintain negative fluid balances; Status: Acute (2) Acute hypoxemic respiratory failure Assessment & Plan: Still requiring supplemental O2 but lungs seem clear; trying to keep neg fluid balance with HD/UF; Status: Acute (3) Acute exacerbation of CHF (congestive heart failure) Assessment & Plan: With systolic dysfunction; UF/HD as above; Status: Acute (4) Acute liver failure Status: Acute (5) Sickle cell anemia with crisis Assessment & Plan: s/p 2 prbc exchange transfusions; f/u with heme; Status: Acute
[2016-11-28] MEDS: metroNIDAZOLE IV 500 mg/100 ml 500 MG/100 ML BAG IVPB SCH ×3 (05:31→21:26)
[2016-11-28] MEDS: Albuterol-Ipratrop 3 mg / 0.5 (3 ml) UD IH PRN (06:08)
[2016-11-28 06:46] LABS: INR 2.56 (0.93-1.08)
[2016-11-28 07:34] LABS: PARTIAL THROMBOPLASTIN TIME 85.3 Seconds (23.7-30.8)
[2016-11-28 07:59] LABS: MEAN CELL VOLUME 88.2 fl (80.0-105.0); MEAN CORPUSCULAR HEMOGLOBIN 32.3 pg (25.0-35.0); MEAN CORPUSCULAR HGB CONC 36.6 g/dl (31.0-37.0); PLATELET COUNT 33 10^3/uL (120.0-450.0); RED CELL DISTRIBUTION WIDTH 19.2 % (11.5-14.5)
[2016-11-28 08:02] LABS: HEMATOCRIT 23.2 % (36.0-48.0)
--- NOTE | 2016-11-28 08:09 | EEG ---
DATE: 11/27/2016 CONDITION OF THE RECORDING: Awake. No hypoventilation. No photic stimulation was done. The patient has a past history of renal failure, cerebral palsy, sickle cell, bipolar, liver cirrhosis. MEDICATIONS: Keppra. DESCRIPTION: Background activity of this tracing was full of muscle artifact and reading through the artifacts reveals 8 cycles per second alpha-like activities, small amount of beta activity is 16-20 cycle per second was noted and the tracing theta activity 5 to 7 cycles were noted. Drowsiness, mixed beta and theta activity were seen. Because of muscle artifact unable to see any paroxysmal activity in the records. IMPRESSION: Mild cerebral dysfunction, diffuse. Jose Marcus MD
[2016-11-28 08:12] LABS: WHITE BLOOD COUNT 66.2 10^3/ul (4.5-11.0)
[2016-11-28 08:15] LABS: ALB/GLOB RATIO 1.1 (1.1-1.8); CALCIUM 8.3 mg/dL (8.4-10.5); MAGNESIUM 1.8 mg/dL (1.7-2.2); PHOSPHOROUS 2.7 mg/dL (2.5-4.5); POTASSIUM 3.9 mmol/L (3.6-5.0); TOTAL PROTEIN 6.3 g/dL (5.8-8.3)
[2016-11-28 08:21] LABS: BILIRUBIN,TOTAL 24.3 mg/dL (0.2-1.3)
--- NOTE | 2016-11-28 09:44 | CP.PCM.PN ---
<Shahla Gannon - Last Filed: 11/28/16 09:40> Subjective - Date & Time of Evaluation Date of Evaluation: 11/28/16 Time of Evaluation: 09:40 - Subjective Subjective: Neurology Progress Note for Geraldine Gardner PGY2 Patient seen and examined at bedside. As per nursing, there were no acute overnight events. Patient had dialysis catheter placement yesterday without complications. This am she is lethargic and moaning. GCS: 9. ROS could not be obtained. Objective - Vital Signs/Intake and Output Vital Signs (last 24 hours): Temp Pulse Resp BP Pulse Ox 99.8 F H 122 H 24 114/58 L 97 11/28/16 04:00 11/28/16 06:30 11/28/16 07:23 11/28/16 06:30 11/28/16 07:23 Intake and Output: 11/28/16 11/28/16 06:59 18:59 Intake Total 1998 Output Total 2470 Balance -472 - Medications Medications: Current Medications Albumin Human (Albumin Human 25% (12.5 Gm/50 Ml)) 12.5 gm IV Q6H [facility] Last Admin: 11/28/16 01:41 Dose: 12.5 gm Albuterol/Ipratropium (Duoneb 3 Mg/0.5 Mg (3 Ml) Ud) 3 ml IH [id number] ARLETTE Last Admin: 11/28/16 07:20 Dose: 3 ml Albuterol/Ipratropium (Duoneb 3 Mg/0.5 Mg (3 Ml) Ud) 3 ml IH [id number] PRN PRN Reason: SOB, congestion, desats Last Admin: 11/28/16 06:08 Dose: 3 ml Furosemide (Lasix) 40 mg IVP DAILY [facility] Last Admin: 11/17/16 09:00 Dose: 40 mg Heparin Sodium (Porcine) (Heparin) 5,000 units SC Q12 [facility]LETTE PRN Reason: Protocol Last Admin: 11/16/16 21:44 Dose: Not Given Hydrocortisone Sodium Succinate (Solu-Cortef) 50 mg IVP Q12H [facility] Last Admin: 11/28/16 01:41 Dose: 50 mg Metronidazole (Flagyl) 500 mg in 100 mls @ 100 mls/hr IVPB Q8 [facility]LETTE PRN Reason: Protocol Last Admin: 11/28/16 05:31 Dose: 100 mls/hr Dobutamine HCl/Dextrose (Dobutamine/Dextrose 5% 500mg/250ml) 500 mg in 250 mls @ 5.647 mls/hr IV .Q24H PRN; Protocol; 2.5 MCG/KG/MIN PRN Reason: TITRATE PER PROTOCOL Last Admin: 11/27/16 06:33 Dose: 5.647 mls/hr Vasopressin 20 units/ Dextrose 101 mls @ 9.09 mls/hr IV .Q11H7M ARLETTE; 0.03 U/MIN PRN Reason: Protocol Last Admin: 11/25/16 21:00 Dose: 9.09 mls/hr Multivitamins/Vitamin C 10 ml/Amino Acids/Electrolytes/Dextrose 2,010 mls @ 83 mls/hr IV .Q24H [facility] Stop: 11/29/16 17:59 Last Admin: 11/27/16 21:11 Dose: 83 mls/hr Fat Emulsion Intravenous (Intralipid 20%) 250 mls @ 21 mls/hr IV MWF@1800 [facility] Stop: 11/29/16 17:59 Last Admin: 11/27/16 21:11 Dose: 21 mls/hr Pantoprazole Sodium (Protonix Inj) 40 mg IVP Q12 [facility] Last Admin: 11/27/16 22:10 Dose: 40 mg Rifaximin (Xifaxan) 550 mg PO BID [facility]LETTE PRN Reason: Protocol Last Admin: 11/19/16 14:57 Dose: Not Given - Labs Labs: 11/28/16 06:00 11/28/16 06:00 PT 27.7 Seconds (9.9-11.8) H 11/28/16 06:00 INR 2.56 (0.93-1.08) H 11/28/16 06:00 APTT 85.3 Seconds (23.7-30.8) H* 11/28/16 06:00 - Constitutional Appears: Chronically Ill - Head Exam Head Exam: ATRAUMATIC, NORMAL INSPECTION, NORMOCEPHALIC - Eye Exam Eye Exam: PERRL, Scleral icterus Pupil Exam: PERRL, Unequal (R pupil 1mm>L pupil ) - ENT Exam ENT Exam: Mucous Membranes Dry - Respiratory Exam Respiratory Exam: Rhonchi, NORMAL BREATHING PATTERN. absent: Rales, Wheezes - Cardiovascular Exam Cardiovascular Exam: Tachycardia, REGULAR RHYTHM, +S1, +S2. absent: Gallop, Rubs, Murmur - GI/Abdominal Exam GI & Abdominal Exam: Distended, Firm, Normal Bowel Sounds. absent: Tenderness - Extremities Exam Extremities Exam: Pedal Edema. absent: Calf Tenderness - Neurological Exam Neurological Exam: Awake, CN II-XII Intact. absent: Oriented x3 Additional comments: GCS: 9. (E4, V2, M3) - Skin Skin Exam: Dry, Warm. absent: Normal Color (jaundice) Assessment and Plan - Assessment and Plan (Free Text) Assessment: This is a 36Y F with PMH sickle cell disease, cerebral palsy, CHF, asthma and bipolar disorder admitted 2 weeks ago for RUQ pain with n/v/d. She was found to have MELITON, hypotension, transaminitis secondary to acute chest syndrome with complicated ICU course and multiorgan dysfunction. Head CT negative for acute pathology, but shows atrophy and small vessel disease. Patient found to have AMS and R facial twitching that was not noted on exam. She is noted to have hyperbilirubinemia as well as hypotension despite being on pressors with DIC. Twitching can be secondary to history of cerebral palsy as well as metabolic derangements. AMS can be secondary to metabolic derangements alone with cerebral hypoperfusion. EEG showed bilateral slow wave forms which correlates with bilaterally cerebral dysfunction which can be secondary to metabolic derangement. Head CT was ordered for unequal pupils which showed atrophy, but no acute changes or evidence of bleed. MRI was done which atrophy and small bilateral subdural fluid collections, which was reviewed by myself as well as Dr. Marcus. No evidence of bleed noted. Plan: - Will decrease Keppra to 750mg BID - Continue adequate hydration for optimal cerebral perfusion (Maintain SBP 120- 130s) - Do NOT recommend other anticonvulsants due to transaminitis No further neurological work up is needed at this time. Thank you for this consultation. Please re-consult if needed. Case seen, discussed and reviewed with attending, Dr. Marcus. Geraldine Gannon PGY2 <Blake Marcus - Last Filed: 11/28/16 13:50> Objective - Vital Signs/Intake and Output Vital Signs (last 24 hours): Temp Pulse Resp BP Pulse Ox 98 F 127 H 30 H 101/52 L 96 11/28/16 12:00 11/28/16 13:05 11/28/16 13:05 11/28/16 13:00 11/28/16 12:59 Intake and Output: 11/28/16 11/28/16 06:59 18:59 Intake Total 1997 Output Total 2470 Balance -472 - Medications Medications: Current Medications Albumin Human (Albumin Human 25% (12.5 Gm/50 Ml)) 12.5 gm IV Q6H [facility] Last Admin: 11/28/16 10:26 Dose: 12.5 gm Albuterol/Ipratropium (Duoneb 3 Mg/0.5 Mg (3 Ml) Ud) 3 ml IH [id number] [facility]LETTE Last Admin: 11/28/16 13:24 Dose: 3 ml Albuterol/Ipratropium (Duoneb 3 Mg/0.5 Mg (3 Ml) Ud) 3 ml IH [id number] PRN PRN Reason: SOB, congestion, desats Last Admin: 11/28/16 06:08 Dose: 3 ml Furosemide (Lasix) 40 mg IVP DAILY [facility] Last Admin: 11/17/16 09:00 Dose: 40 mg Heparin Sodium (Porcine) (Heparin) 5,000 units SC Q12 [facility]LETTE PRN Reason: Protocol Last Admin: 11/16/16 21:44 Dose: Not Given Hydrocortisone Sodium Succinate (Solu-Cortef) 50 mg IVP Q12H [facility] Last Admin: 11/28/16 01:41 Dose: 50 mg Metronidazole (Flagyl) 500 mg in 100 mls @ 100 mls/hr IVPB Q8 [facility]LETTE PRN Reason: Protocol Last Admin: 11/28/16 05:31 Dose: 100 mls/hr Dobutamine HCl/Dextrose (Dobutamine/Dextrose 5% 500mg/250ml) 500 mg in 250 mls @ 5.647 mls/hr IV .Q24H PRN; Protocol; 2.5 MCG/KG/MIN PRN Reason: TITRATE PER PROTOCOL Last Admin: 11/27/16 06:33 Dose: 5.647 mls/hr Vasopressin 20 units/ Dextrose 101 mls @ 9.09 mls/hr IV .Q11H7M [facility]LETTE; 0.03 U/MIN PRN Reason: Protocol Last Admin: 11/25/16 21:00 Dose: 9.09 mls/hr Multivitamins/Vitamin C 10 ml/Amino Acids/Electrolytes/Dextrose 2,010 mls @ 83 mls/hr IV .Q24H [facility] Stop: 11/29/16 17:59 Last Admin: 11/27/16 21:11 Dose: 83 mls/hr Fat Emulsion Intravenous (Intralipid 20%) 250 mls @ 21 mls/hr IV MWF@1800 [facility] Stop: 11/29/16 17:59 Last Admin: 11/27/16 21:11 Dose: 21 mls/hr Levetiracetam 750 mg/ Sodium (Chloride) 107.5 mls @ 460 mls/hr IV Q12 [facility] Last Admin: 11/28/16 10:05 Dose: 460 mls/hr Pantoprazole Sodium (Protonix Inj) 40 mg IVP Q12 [facility] Last Admin: 11/28/16 10:00 Dose: 40 mg Rifaximin (Xifaxan) 550 mg PO BID [facility]LETTE PRN Reason: Protocol Last Admin: 11/19/16 14:57 Dose: Not Given - Labs Labs: 11/28/16 06:00 11/28/16 06:00 PT 27.7 Seconds (9.9-11.8) H 11/28/16 06:00 INR 2.56 (0.93-1.08) H 11/28/16 06:00 APTT 85.3 Seconds (23.7-30.8) H* 11/28/16 06:00 Attending/Attestation - Attestation I have personally seen and examined this patient.: Yes I have fully participated in the care of the patient.: Yes I have reviewed all pertinent clinical information, including history, physical exam and plan: Yes
--- NOTE | 2016-11-28 10:23 | CP.PCM.PN ---
Subjective - Date & Time of Evaluation Date of Evaluation: 11/28/16 Time of Evaluation: 09:30 - Subjective Subjective: General Surgery Progress Note for Dr. Chandra Patient seen and examined at bedside. No acute event overnight. She is s/p IR tap POD #2 and s/p permacath placement POD #1. Patient is still alert, awake, and reacts to verbal and tactile stimuli. Terminal respiratory secretions are present. Objective - Vital Signs/Intake and Output Vital Signs (last 24 hours): Temp Pulse Resp BP Pulse Ox 99.8 F H 122 H 24 114/58 L 97 11/28/16 04:00 11/28/16 06:30 11/28/16 07:23 11/28/16 06:30 11/28/16 07:23 Intake and Output: 11/28/16 11/28/16 06:59 18:59 Intake Total 1997 Output Total 2470 Balance -472 - Medications Medications: Current Medications Albumin Human (Albumin Human 25% (12.5 Gm/50 Ml)) 12.5 gm IV Q6H ARLETTE Last Admin: 11/28/16 01:41 Dose: 12.5 gm Albuterol/Ipratropium (Duoneb 3 Mg/0.5 Mg (3 Ml) Ud) 3 ml IH [id number] ARLETTE Last Admin: 11/28/16 07:20 Dose: 3 ml Albuterol/Ipratropium (Duoneb 3 Mg/0.5 Mg (3 Ml) Ud) 3 ml IH [id number] PRN PRN Reason: SOB, congestion, desats Last Admin: 11/28/16 06:08 Dose: 3 ml Furosemide (Lasix) 40 mg IVP DAILY ARLETTE Last Admin: 11/17/16 09:00 Dose: 40 mg Heparin Sodium (Porcine) (Heparin) 5,000 units SC Q12 ARLETTE PRN Reason: Protocol Last Admin: 11/16/16 21:44 Dose: Not Given Hydrocortisone Sodium Succinate (Solu-Cortef) 50 mg IVP Q12H ARLETTE Last Admin: 11/28/16 01:41 Dose: 50 mg Metronidazole (Flagyl) 500 mg in 100 mls @ 100 mls/hr IVPB Q8 ARLETTE PRN Reason: Protocol Last Admin: 11/28/16 05:31 Dose: 100 mls/hr Dobutamine HCl/Dextrose (Dobutamine/Dextrose 5% 500mg/250ml) 500 mg in 250 mls @ 5.647 mls/hr IV .Q24H PRN; Protocol; 2.5 MCG/KG/MIN PRN Reason: TITRATE PER PROTOCOL Last Admin: 11/27/16 06:33 Dose: 5.647 mls/hr Vasopressin 20 units/ Dextrose 101 mls @ 9.09 mls/hr IV .Q11H7M ARLETTE; 0.03 U/MIN PRN Reason: Protocol Last Admin: 11/25/16 21:00 Dose: 9.09 mls/hr Multivitamins/Vitamin C 10 ml/Amino Acids/Electrolytes/Dextrose 2,010 mls @ 83 mls/hr IV .Q24H ARLETTE Stop: 11/29/16 17:59 Last Admin: 11/27/16 21:11 Dose: 83 mls/hr Fat Emulsion Intravenous (Intralipid 20%) 250 mls @ 21 mls/hr IV MWF@1800 ARLETTE Stop: 11/29/16 17:59 Last Admin: 11/27/16 21:11 Dose: 21 mls/hr Levetiracetam 750 mg/ Sodium (Chloride) 107.5 mls @ 460 mls/hr IV Q12 ARLETTE Last Admin: 11/28/16 10:05 Dose: 460 mls/hr Pantoprazole Sodium (Protonix Inj) 40 mg IVP Q12 ARLETTE Last Admin: 11/28/16 10:00 Dose: 40 mg Rifaximin (Xifaxan) 550 mg PO BID ARLETTE PRN Reason: Protocol Last Admin: 11/19/16 14:57 Dose: Not Given - Labs Labs: 11/28/16 06:00 11/28/16 06:00 PT 27.7 Seconds (9.9-11.8) H 11/28/16 06:00 INR 2.56 (0.93-1.08) H 11/28/16 06:00 APTT 85.3 Seconds (23.7-30.8) H* 11/28/16 06:00 - Constitutional Appears: No Acute Distress, Chronically Ill - Head Exam Head Exam: ATRAUMATIC, NORMOCEPHALIC - Eye Exam Additional comments: both pupils reactive, 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) - ENT Exam ENT Exam: Mucous Membranes Moist - Neck Exam Additional comments: R sided permacath placement - Respiratory Exam Additional comments: terminal respiratory secretions with slightly labored breathing pattern - Cardiovascular Exam Cardiovascular Exam: Tachycardia - GI/Abdominal Exam GI & Abdominal Exam: Distended, Firm - Extremities Exam Extremities Exam: Pedal Edema Additional comments: edematous extremities - Neurological Exam Neurological Exam: Alert, Awake - Psychiatric Exam Psychiatric exam: Flat Affect - Skin Skin Exam: Dry, Normal Color Assessment and Plan - Assessment and Plan (Free Text) Plan: 36 F with abdominal compartment syndrome, s/p IR tap POD #2, s/p permacath POD # 1 -Serial abd exam -Patient is poor surgical candidate -No surgical intervention at this time -DANNY Benoit PGY1
[2016-11-28 10:30] LABS: HEMOGLOBIN F <1.0 Percent (<2.0)
--- NOTE | 2016-11-28 11:25 | RAD ---
HISTORY: Shortness of breath COMPARISON: 11/25/2016. FINDINGS: The right MediPort terminates at the cavoatrial junction. The left PermCath terminates in the right atrium. LUNGS: There are low lung volumes which may be related to poor inspiratory effort. There is mild pulmonary venous congestion. There is bibasilar atelectasis. PLEURA: No significant pleural effusion identified, no pneumothorax apparent. CARDIOVASCULAR: Normal. OSSEOUS STRUCTURES: No significant abnormalities. VISUALIZED UPPER ABDOMEN: Normal. OTHER FINDINGS: None. IMPRESSION: 1. Left PermCath terminates in the right atrium. No pneumothorax. 2. Right MediPort terminates at the cavoatrial junction. 3. Mild pulmonary venous congestion and bibasilar atelectasis.
--- NOTE | 2016-11-28 11:28 | CP.CCUPN ---
<Alejo Felix - Last Filed: 11/28/16 11:29> CCU Subjective - Physician Review Subjective (Free Text): 11/28/2016 11:00 Patient s/e this AM in ICU. Patient continues to be non verbal with limited response and inability to follow commands. Patient is in process of approval for LTAC placement and potential transfer. At this time conversations with family have been ongoing. No acute events overnight were reported. In past 24H patient had repeat Head CT found to show no acute change, Head MRI done to confirm which showed severe atrophy in the parietal lobes with some collection of subdural fluid, EEG was done showing only mild cerebral dysfunction, pt also had HD tunnel catheter placed via IR for continued HD. CCU Objective - Vital Signs / Intake & Output Vital Signs (Last 4 hours): Vital Signs Resp Pulse Ox 11/28/16 07:23 24 97 Intake and Output (Last 8hrs): Intake & Output 11/27/16 11/28/16 11/28/16 22:59 06:59 14:59 Intake Total 250 1748 Output Total 2350 120 Balance -2100 1628 Weight 169 lb 12.095 oz Intake: IV 400 right chest wall 400 TPN/PPN 996 Lipid 252 Albumin 50 100 Other 200 Output: Urine 50 120 2-way Urethral 50 120 Other 2300 Urine, Voided 2300 - Physical Exam Head: Positive for: Atraumatic, Normocephalic. Negative for: Ecchymosis, Abrasion, Laceration Pupils: Positive for: PERRL, Other (Unequal, R pupil dilated as compared to L, but both reactive to light). Negative for: Sluggish, Non-Reactive, Pinpoint Extroacular Muscles: Positive for: Other (not following commands, minimal attempts to avoid direct light challenge for PERRL assessment; able to track across room but doing so less now, more likely due to mental status than occular issue) Conjunctiva: Positive for: Icteric. Negative for: Normal, Injected Mouth: Positive for: Normal Lips, Normal Tounge (healed lac on underside of tongue), Other (dried red blood in and around mouth). Negative for: Moist Mucous Membranes, Normal Teeth (poor dentition) Pharnyx: Positive for: Other (no gross bleeding/oozing sites) Nose (External): Positive for: Atraumatic, Other (no expistaxis or oozing/ crusting around the nares). Negative for: Abrasion, Contusion, Laceration Nose (Internal): Negative for: Epistaxis Neck: Positive for: Normal Range of Motion (Able to move head appropriately to track staff/loud verbal/noxious physical stimuli, doing so less frequently, but passive ROM if head remains intact), Trachea Midline. Negative for: JVD Respiratory/Chest: Positive for: Good Air Exchange, Rhonchi (diffusely ronchorous in all haider, presents with inspiration and expiration, also ausculated in neck), Other (R port in place- clean and dry, covered with bandaging; wearing regular nasal canula at 5L and satting well). Negative for: Clear to Auscultation (Mild ronchi in all haider, most prominent at expiration) , Respiratory Distress, Accessory Muscle Use, Decreased Breath Sounds, Rales, Retracting Cardiovascular: Positive for: Normal S1, S2, Tachycardic (Rapid rate, regular rhythm). Negative for: Regular Rate and Rhythm, Murmurs, Irregular Rhythm, Bradycardic Abdomen: Positive for: Distention (improved firmness/distension s/p paracentesis , but still notable firmness on exam). Negative for: Tenderness, Normal Bowel Sounds (decreased and distant bowel sounds), Rebound, Guarding, Hernias Back: Positive for: Normal Inspection Upper Extremity: Positive for: Edema (Improved edema in bilateral UE, +1-2 pitting edema extending from hand to mid-humerus of RUE, +1-2 pitting edema extending from hand to mid-humerus of LUE), Swelling, Temperature Abnormalties ( mild coolness to palpation at bilateral hands). Negative for: Normal Inspection , Cyanosis, NORMAL PULSES (faintly palpable radials B/L (possibly 2/2 edema) Duplex) Lower Extremity: Positive for: Edema (+3 pitting edema in bilateral LE extending from feet to mid-thigh), Temperature Abnormalties (coolness to palpation at bilateral feet). Negative for: Normal Inspection (Left groin with HD TLC in place- dressing with saturated sanginous strike through, site continues to ooze), NORMAL PULSES (unable to palpate bilateral dorsalis pedis, likely 2/2 edema, but clearly demonstrated with bedside doppler), Cyanosis, Erythema Neurological: Positive for: Other (bilateral Plantar reflexes intact, intermittently moving head and eyes to track staff in room). Negative for: GCS= 15 (score of 9 (E4 V1 M4)), CN II-XII Intact (unable to fully assess, not following commands; Pupilary reflex intact, some scattered eye movements to avoid direct light, protecting airway ), Speech Normal (non-verbal), Motor Func Grossly Intact Skin: Positive for: Warm (except as documented in extremities exams), Dry, Normal Color. Negative for: Rashes Psychiatric: Positive for: Other (unable to assess, non-verbal, not following any command or nodding/shaking head for any questions) - Medications Active Medications: Active Medications Generic Name Dose Route Start Last Admin Trade Name Freq PRN Reason Stop Dose Admin Albumin Human 12.5 gm 11/26/16 08:15 11/28/16 10:26 Albumin Human 25% (12.5 Gm/50 Ml) IV 12.5 gm Q6H ARLETTE Administration Albuterol/Ipratropium 3 ml 11/16/16 14:00 11/28/16 07:20 Duoneb 3 Mg/0.5 Mg (3 Ml) Ud IH 3 ml [id number] ARLETTE Administration Albuterol/Ipratropium 3 ml 11/25/16 18:11 11/28/16 06:08 Duoneb 3 Mg/0.5 Mg (3 Ml) Ud IH 3 ml [id number] PRN Administration SOB, congestion, desats Furosemide 40 mg 11/16/16 10:00 11/17/16 09:00 Lasix IVP 40 mg DAILY ARLETTE Administration Heparin Sodium (Porcine) 5,000 units 11/13/16 01:15 11/16/16 21:44 Heparin SC Not Given Q12 ARLETTE Protocol Hydrocortisone Sodium Succinate 50 mg 11/25/16 14:00 11/28/16 01:41 Solu-Cortef IVP 50 mg Q12H ARLETTE Administration Metronidazole 500 mg in 100 mls @ 100 mls/hr 11/19/16 19:15 11/28/16 05:31 Flagyl IVPB 100 mls/hr Q8 ARLETTE Administration Protocol Dobutamine HCl/Dextrose 500 mg in 250 mls @ 5.647 mls/hr 11/20/16 07:32 11/27 06:33 Dobutamine/Dextrose 5% 500mg/250ml IV 5.647 mls/hr .Q24H PRN Administration TITRATE PER PROTOCOL Protocol 2.5 MCG/KG/MIN Vasopressin 20 units/ Dextrose 101 mls @ 9.09 mls/hr 11/25/16 10:45 11/25/16 21:00 IV 9.09 mls/hr .Q11H7M ARLETTE Administration Protocol 0.03 U/MIN Multivitamins/Vitamin C 10 ml/ 2,010 mls @ 83 mls/hr 11/26/16 18:00 11/27/16 21:11 Amino Acids/Electrolytes/ IV 11/29/16 17:59 83 mls/hr Dextrose .Q24H ARLETTE Administration Fat Emulsion Intravenous 250 mls @ 21 mls/hr 11/27/16 18:00 11/27/16 21:11 Intralipid 20% IV 11/29/16 17:59 21 mls/hr MWF@1800 ARLETTE Administration Levetiracetam 750 mg/ Sodium 107.5 mls @ 460 mls/hr 11/28/16 09:40 11/28/16 10:05 Chloride IV 460 mls/hr Q12 ARLETTE Administration Pantoprazole Sodium 40 mg 11/19/16 22:00 11/28/16 10:00 Protonix Inj IVP 40 mg Q12 ARLETTE Administration Rifaximin 550 mg 11/18/16 10:15 11/19/16 14:57 Xifaxan PO Not Given BID [facility] Protocol - Patient Studies Lab Studies: Microbiology Studies 11/26/16 18:37 Gram Stain - Final Ascitic Fluid Lab Studies 11/28/16 11/28/16 11/28/16 Range/Units 06:00 06:00 06:00 WBC 66.2 H* D (4.5-11.0) 10^3/ul RBC 2.63 L (3.5-6.1) 10^6/uL Hgb 8.5 L (12.0-16.0) g/dL Hct 23.2 L (36.0-48.0) % MCV 88.2 (80.0-105.0) fl MCH 32.3 (25.0-35.0) pg MCHC 36.6 (31.0-37.0) g/dl RDW 19.2 H (11.5-14.5) % Plt Count 33 L* (120.0-450.0) 10^3/uL Baso # 1.00 (0.0-2.0) K/mm3 Hemoglobin A (>96.0) Percent Hemoglobin A2 (1.8-3.5) Percent Hemoglobin C (0.0-0.0) Percent Hemoglobin F () (<2.0) Percent Hemoglobin S (0.0-0.0) Percent Variant Hemoglobin (0.0-0.0) Percent Hemoglobinopathy Interp PT 27.7 H (9.9-11.8) Seconds INR 2.56 H (0.93-1.08) APTT 85.3 H* (23.7-30.8) Seconds pCO2 (35-45) mm/Hg pO2 (80-100) mm/Hg HCO3 (21-28) mmol/L ABG pH (7.35-7.45) ABG Total CO2 (22-28) mmol.L ABG O2 Saturation (95-98) % ABG O2 Content (15-23) ML/dl ABG Base Excess (-2.0-3.0) mmol/L ABG Hemoglobin (11.7-17.4) g/dL ABG Carboxyhemoglobin (0.5-1.5) % POC ABG HHb (Measured) (0-5) % ABG Methemoglobin (0.0-3.0) % ABG O2 Capacity (16-24) mL/dl Hgb O2 Saturation (95.0-98.0) % FiO2 % Sodium 134 (132-148) mmol/L Potassium 3.9 (3.6-5.0) mmol/L Chloride 98 (98-107) mmol/L Carbon Dioxide 20 L (21-33) mmol/L Anion Gap 20 (10-20) BUN 27 H (7-21) mg/dL Creatinine 1.4 H (0.7-1.2) mg/dL Est GFR ( Amer) 51 Est GFR (Non-Af Amer) 42 POC Glucose (mg/dL) (65-110) mg/dL Random Glucose 189 H (70-110) mg/dL Calcium 8.3 L (8.4-10.5) mg/dL Phosphorus 2.7 (2.5-4.5) mg/dL Magnesium 1.8 (1.7-2.2) mg/dL Total Bilirubin 24.3 H* (0.2-1.3) mg/dL AST 154 H D (14-36) U/L ALT 38 (7-56) U/L Alkaline Phosphatase 342 H D (38-126) U/L Total Protein 6.3 (5.8-8.3) g/dL Albumin 3.3 (3.0-4.8) g/dL Globulin 2.9 gm/dL Albumin/Globulin Ratio 1.1 (1.1-1.8) 11/27/16 11/27/16 11/20/16 Range/Units 22:55 11:17 17:40 WBC (4.5-11.0) 10^3/ul RBC (3.5-6.1) 10^6/uL Hgb (12.0-16.0) g/dL Hct (36.0-48.0) % MCV (80.0-105.0) fl MCH (25.0-35.0) pg MCHC (31.0-37.0) g/dl RDW (11.5-14.5) % Plt Count (120.0-450.0) 10^3/uL Baso # (0.0-2.0) K/mm3 Hemoglobin A 96.7 (>96.0) Percent Hemoglobin A2 2.3 (1.8-3.5) Percent Hemoglobin C 0.0 (0.0-0.0) Percent Hemoglobin F () <1.0 (<2.0) Percent Hemoglobin S 1.0 H (0.0-0.0) Percent Variant Hemoglobin 0.0 (0.0-0.0) Percent Hemoglobinopathy Interp See note PT (9.9-11.8) Seconds INR (0.93-1.08) APTT (23.7-30.8) Seconds pCO2 31 L (35-45) mm/Hg pO2 66.0 L (80-100) mm/Hg HCO3 21.1 (21-28) mmol/L ABG pH 7.44 (7.35-7.45) ABG Total CO2 22.1 (22-28) mmol.L ABG O2 Saturation 99.5 H (95-98) % ABG O2 Content 11.2 L (15-23) ML/dl ABG Base Excess -2.6 L (-2.0-3.0) mmol/L ABG Hemoglobin 8.5 L (11.7-17.4) g/dL ABG Carboxyhemoglobin 3.9 H (0.5-1.5) % POC ABG HHb (Measured) 0.5 (0-5) % ABG Methemoglobin 2.3 (0.0-3.0) % ABG O2 Capacity 11.3 L (16-24) mL/dl Hgb O2 Saturation 93.4 L (95.0-98.0) % FiO2 36.0 % Sodium (132-148) mmol/L Potassium (3.6-5.0) mmol/L Chloride (98-107) mmol/L Carbon Dioxide (21-33) mmol/L Anion Gap (10-20) BUN (7-21) mg/dL Creatinine (0.7-1.2) mg/dL Est GFR ( Amer) Est GFR (Non-Af Amer) POC Glucose (mg/dL) 270 H (65-110) mg/dL Random Glucose (70-110) mg/dL Calcium (8.4-10.5) mg/dL Phosphorus (2.5-4.5) mg/dL Magnesium (1.7-2.2) mg/dL Total Bilirubin (0.2-1.3) mg/dL AST (14-36) U/L ALT (7-56) U/L Alkaline Phosphatase (38-126) U/L Total Protein (5.8-8.3) g/dL Albumin (3.0-4.8) g/dL Globulin gm/dL Albumin/Globulin Ratio (1.1-1.8) Laboratory Results - last 24 hr 11/20/16 11/27/16 11/27/16 17:40 11:17 22:55 WBC RBC Hgb Hct MCV MCH MCHC RDW Plt Count Baso # Hemoglobin A 96.7 Hemoglobin A2 2.3 Hemoglobin C 0.0 Hemoglobin F () <1.0 Hemoglobin S 1.0 H Variant Hemoglobin 0.0 Hemoglobinopathy Interp See note PT INR APTT pCO2 31 L pO2 66.0 L HCO3 21.1 ABG pH 7.44 ABG Total CO2 22.1 ABG O2 Saturation 99.5 H ABG O2 Content 11.2 L ABG Base Excess -2.6 L ABG Hemoglobin 8.5 L ABG Carboxyhemoglobin 3.9 H POC ABG HHb (Measured) 0.5 ABG Methemoglobin 2.3 ABG O2 Capacity 11.3 L Hgb O2 Saturation 93.4 L FiO2 36.0 Sodium Potassium Chloride Carbon Dioxide Anion Gap BUN Creatinine Est GFR ( Amer) Est GFR (Non-Af Amer) POC Glucose (mg/dL) 270 H Random Glucose Calcium Phosphorus Magnesium Total Bilirubin AST ALT Alkaline Phosphatase Total Protein Albumin Globulin Albumin/Globulin Ratio 11/28/16 11/28/16 11/28/16 06:00 06:00 06:00 WBC 66.2 H* D RBC 2.63 L Hgb 8.5 L Hct 23.2 L MCV 88.2 MCH 32.3 MCHC 36.6 RDW 19.2 H Plt Count 33 L* Baso # 1.00 Hemoglobin A Hemoglobin A2 Hemoglobin C Hemoglobin F () Hemoglobin S Variant Hemoglobin Hemoglobinopathy Interp PT 27.7 H INR 2.56 H APTT 85.3 H* pCO2 pO2 HCO3 ABG pH ABG Total CO2 ABG O2 Saturation ABG O2 Content ABG Base Excess ABG Hemoglobin ABG Carboxyhemoglobin POC ABG HHb (Measured) ABG Methemoglobin ABG O2 Capacity Hgb O2 Saturation FiO2 Sodium 134 Potassium 3.9 Chloride 98 Carbon Dioxide 20 L Anion Gap 20 BUN 27 H Creatinine 1.4 H Est GFR ( Amer) 51 Est GFR (Non-Af Amer) 42 POC Glucose (mg/dL) Random Glucose 189 H Calcium 8.3 L Phosphorus 2.7 Magnesium 1.8 Total Bilirubin 24.3 H* AST 154 H D ALT 38 Alkaline Phosphatase 342 H D Total Protein 6.3 Albumin 3.3 Globulin 2.9 Albumin/Globulin Ratio 1.1 Fingerstick Blood Sugar Results: 201 Review of Systems - Review of Systems Review of Systems: ROS unable to obtain due to pt being non verbal at this time Critical Care Progress Note - Nutrition Nutrition: Nutrition Category Date Time Status NPO Diet [DIET] Diets 11/18/16 Dinner Ordered Assessment/Plan - Assessment and Plan (Free Text) Assessment: This is a 36 yo AA F with PMH of Sickle cell disease, Bipolar disorder, cerebral palsy, Asthma, and CHF who initially presented to [facility] [place] with RUQ abd pain , and later developed Sickle cell crisis, Acute Chest Syndrome, GI bleed, and now has MODS. Denied for transfer to [facility] and [facility], not a candidate for liver transplant as per [facility]. Patient now on regular NC and tolerating well. Pending tunnel cath for long-term dialysis and evaluation for LTAC. Now pending workup for dilated R pupil, concerning for CVA. Prognosis remains poor. Plan: Plan: Neuro: -Patient off sedation -GCS 9 (E4 V1 M4); persisting worsened mental status, no longer following any command or nodding yes/no to any questions -Head CT from 11/22 showing no acute intracranial abnormality, mild age related global parenchymal -Dilated R pupil on exam today, head CT obtained to r/o CVA, head CT negative for acute process -MRI showing severe atrophy of parietal lobes, and small b/l subdural fluid collection -Neuro (Dr. Marcus) recommending Keppra 750mg BID, signing off -EEG showign mild cerebral dysfunction diffusely but noted for muscle twitching and limited read -Non-verbal, not following any commands, minimal spontaneous movements Pulm: -On NC and tolerating well, satting > 90% consistently, requiring some suction of blood and fluid from back of throat -Goal SaO2 > 92% -CXR with improved bilateral infiltrates, persisting cardiomegaly Cardio: -Shock requiring dual-pressor support resolved; Vasopressin restarted for brief hypotensive episode, now resolved and discontinued -Hypovolemic shock likely 2/2 to GI bleed vs. Distributive shock likely 2/2 sepsis vs. increased viscosity 2/2 vaso-occlusive crisis -HR tachycardic, possibly 2/2 -Dobutamine IV for improved cardic function in the setting of cardiomegaly with reduced EF (35-40% on June 2016 Echo) and hypotension -doppler b/l LE US negative GI: -Acute hepatic failure 2/2 acquired hemochromatosis from multiple blood transfusions vs. vaso-occlusive crisis vs. shock liver -Monitor LFTs, coags -GI has signed off -Protonix -Patient noted to not be candidate for liver transplant -As per GI, not a candidate for NGT or Gastrostomy tube, will need TPN; tolerating TPN feeds via port-a-cath; will discuss with GI possibility of Dobhoff for PO meds that lack IV formulation -S/p paracentesis, 2.6L drawn off, cytology not consistent with SBP, but already covered with current abx regimen -As per Surgery, Bladder pressure improved to 14 after paracentesis, unlikely abdominal compartment syndrome, no surgery indicated Renal: -Cr 1.4 today (yest 2.1) -s/p 5 rounds of HD and 2 rounds of exchange transfusion -Monitor I and O's, monitor and replace electrolytes as needed -Nephrology following, appreciate all recs -Pending tunnel cath for retirement HD, likely today Heme: -Coagulopathy 2/2 Hepatic Failure, s/p multiple transfusions -Heme/Onc (Dr. Palacios) following -INR of 2.56, was 2.52 yesterday -Fibrinogen 132.6 yesterday -HgbS 5.2 post-first round of transfusion exchange, pending HgbS after 2nd exchange ID: -WBC 66.2, Afebrile -Awaiting corrected count -ID following -Receiving abx for coverage of SBP -C. diff antigen positive, antigen negative, holding abx as per ID -Influenza type A Ab titer 1:32 and Influenza type B Ab titer 1:16 signifying possible recent or past infection Dispo: ICU, off pressors and now on NC and tolerating, TPN via port-a-cath; denied for transplant by [facility], denied for tertiary care transfer by [facility] and [facility] , prognosis poor; pending Tunnel cath for retirement dialysis, then assessment for LTAC FEN: NPO, no feeds due to GI bleed, D10W 20cc/hr; Access: Peripheral IVs, R-chest port; NO NGT as per GI Consults: ID, Nephro, Heme-onc, GI (signed off), Cardio, Psych, Surgery, Palliative Code Status: Full code Patient seen, further recommendations per Dr. Noble - Date & Time Date: 11/28/16 Time: 11:00 <Real ANGUIANO,Kathleenasmita H - Last Filed: 11/28/16 15:57> CCU Objective - Vital Signs / Intake & Output Vital Signs (Last 4 hours): Vital Signs Temp Pulse Resp BP Pulse Ox 11/28/16 13:05 127 H 27 H 11/28/16 13:04 127 H 29 H 11/28/16 13:03 111 H 26 H 11/28/16 13:02 125 H 27 H 11/28/16 13:01 125 H 11/28/16 13:00 101/52 L 11/28/16 12:59 124 H 96 11/28/16 12:30 123 H 29 H 106/51 L 96 11/28/16 12:00 98 F 125 H 113/46 L 95 Intake and Output (Last 8hrs): Intake & Output 11/28/16 11/28/16 11/28/16 06:59 14:59 22:59 Intake Total 1748 Output Total 120 Balance 1628 Weight 169 lb 12.095 oz 177 lb Intake: IV 400 right chest wall 400 TPN/PPN 996 Lipid 252 Albumin 100 Output: Urine 120 2-way Urethral 120 - Medications Active Medications: Active Medications Generic Name Dose Route Start Last Admin Trade Name Freq PRN Reason Stop Dose Admin Albumin Human 12.5 gm 11/26/16 08:15 11/28/16 10:26 Albumin Human 25% (12.5 Gm/50 Ml) IV 12.5 gm Q6H ARLETTE Administration Albuterol/Ipratropium 3 ml 11/16/16 14:00 11/28/16 13:24 Duoneb 3 Mg/0.5 Mg (3 Ml) Ud IH 3 ml [id number] ARLETTE Administration Albuterol/Ipratropium 3 ml 11/25/16 18:11 11/28/16 06:08 Duoneb 3 Mg/0.5 Mg (3 Ml) Ud IH 3 ml [id number] PRN Administration SOB, congestion, desats Furosemide 40 mg 11/16/16 10:00 11/17/16 09:00 Lasix IVP 40 mg DAILY ARLETTE Administration Heparin Sodium (Porcine) 5,000 units 11/13/16 01:15 11/16/16 21:44 Heparin SC Not Given Q12 ARLETTE Protocol Hydrocortisone Sodium Succinate 50 mg 11/25/16 14:00 11/28/16 01:41 Solu-Cortef IVP 50 mg Q12H ARLETTE Administration Metronidazole 500 mg in 100 mls @ 100 mls/hr 11/19/16 19:15 11/28/16 05:31 Flagyl IVPB 100 mls/hr Q8 ARLETTE Administration Protocol Dobutamine HCl/Dextrose 500 mg in 250 mls @ 5.647 mls/hr 11/20/16 07:32 11/27 06:33 Dobutamine/Dextrose 5% 500mg/250ml IV 5.647 mls/hr .Q24H PRN Administration TITRATE PER PROTOCOL Protocol 2.5 MCG/KG/MIN Vasopressin 20 units/ Dextrose 101 mls @ 9.09 mls/hr 11/25/16 10:45 11/25/16 21:00 IV 9.09 mls/hr .Q11H7M ARLETTE Administration Protocol 0.03 U/MIN Multivitamins/Vitamin C 10 ml/ 2,010 mls @ 83 mls/hr 11/26/16 18:00 11/27/16 21:11 Amino Acids/Electrolytes/ IV 11/29/16 17:59 83 mls/hr Dextrose .Q24H ARLETTE Administration Fat Emulsion Intravenous 250 mls @ 21 mls/hr 11/27/16 18:00 11/27/16 21:11 Intralipid 20% IV 11/29/16 17:59 21 mls/hr MWF@1800 ARLETTE Administration Levetiracetam 750 mg/ Sodium 107.5 mls @ 460 mls/hr 11/28/16 09:40 11/28/16 10:05 Chloride IV 460 mls/hr Q12 ARLETTE Administration Pantoprazole Sodium 40 mg 11/19/16 22:00 11/28/16 10:00 Protonix Inj IVP 40 mg Q12 ARLETTE Administration Rifaximin 550 mg 11/18/16 10:15 11/19/16 14:57 Xifaxan PO Not Given BID [facility] Protocol - Patient Studies Lab Studies: Microbiology Studies 11/26/16 18:37 Gram Stain - Final Ascitic Fluid Lab Studies 11/28/16 11/28/16 11/28/16 Range/Units 15:30 11:16 07:56 WBC (4.5-11.0) 10^3/ul RBC (3.5-6.1) 10^6/uL Hgb (12.0-16.0) g/dL Hct (36.0-48.0) % MCV (80.0-105.0) fl MCH (25.0-35.0) pg MCHC (31.0-37.0) g/dl RDW (11.5-14.5) % Plt Count (120.0-450.0) 10^3/uL Baso # (0.0-2.0) K/mm3 Corrected WBC (Man) (4.5-11.0) K/mm3 Neutrophils % (Manual) (50.0-70.0) % Band Neutrophils % (0-2) % Lymphocytes % (Manual) (22.0-35.0) % Atypical Lymphs % (0.0-0.0) % Monocytes % (Manual) (1.0-6.0) % Eosinophils % (Manual) (0.0-3.0) % Myelocytes % % Nucleated RBC % % Smudge Cells Platelet Evaluation (NORMAL) Polychromasia Hypochromasia Poikilocytosis (manual Anisocytosis (manual) Spherocytes Sickle Cells Tear Drop Cells Aleena Cells Schistocytes Hemoglobin A (>96.0) Percent Hemoglobin A2 (1.8-3.5) Percent Hemoglobin C (0.0-0.0) Percent Hemoglobin F () (<2.0) Percent Hemoglobin S (0.0-0.0) Percent Variant Hemoglobin (0.0-0.0) Percent Hemoglobinopathy Interp PT (9.9-11.8) Seconds INR (0.93-1.08) APTT (23.7-30.8) Seconds pCO2 (35-45) mm/Hg pO2 (80-100) mm/Hg HCO3 (21-28) mmol/L ABG pH (7.35-7.45) ABG Total CO2 (22-28) mmol.L ABG O2 Saturation (95-98) % ABG O2 Content (15-23) ML/dl ABG Base Excess (-2.0-3.0) mmol/L ABG Hemoglobin (11.7-17.4) g/dL ABG Carboxyhemoglobin (0.5-1.5) % POC ABG HHb (Measured) (0-5) % ABG Methemoglobin (0.0-3.0) % ABG O2 Capacity (16-24) mL/dl Hgb O2 Saturation (95.0-98.0) % FiO2 % Sodium (132-148) mmol/L Potassium (3.6-5.0) mmol/L Chloride (98-107) mmol/L Carbon Dioxide (21-33) mmol/L Anion Gap (10-20) BUN (7-21) mg/dL Creatinine (0.7-1.2) mg/dL Est GFR ( Amer) Est GFR (Non-Af Amer) POC Glucose (mg/dL) 181 H 208 H 229 H (65-110) mg/dL Random Glucose (70-110) mg/dL Calcium (8.4-10.5) mg/dL Phosphorus (2.5-4.5) mg/dL Magnesium (1.7-2.2) mg/dL Total Bilirubin (0.2-1.3) mg/dL AST (14-36) U/L ALT (7-56) U/L Alkaline Phosphatase (38-126) U/L Total Protein (5.8-8.3) g/dL Albumin (3.0-4.8) g/dL Globulin gm/dL Albumin/Globulin Ratio (1.1-1.8) 11/28/16 11/28/16 11/28/16 Range/Units 06:00 06:00 06:00 WBC 66.2 H* D (4.5-11.0) 10^3/ul RBC 2.63 L (3.5-6.1) 10^6/uL Hgb 8.5 L (12.0-16.0) g/dL Hct 23.2 L (36.0-48.0) % MCV 88.2 (80.0-105.0) fl MCH 32.3 (25.0-35.0) pg MCHC 36.6 (31.0-37.0) g/dl RDW 19.2 H (11.5-14.5) % Plt Count 33 L* (120.0-450.0) 10^3/uL Baso # (0.0-2.0) K/mm3 Corrected WBC (Man) 11.6 H (4.5-11.0) K/mm3 Neutrophils % (Manual) 50 (50.0-70.0) % Band Neutrophils % 3 H (0-2) % Lymphocytes % (Manual) 39 H (22.0-35.0) % Atypical Lymphs % 4 H (0.0-0.0) % Monocytes % (Manual) 2 (1.0-6.0) % Eosinophils % (Manual) 1 (0.0-3.0) % Myelocytes % 1 % Nucleated RBC % 469 % Smudge Cells Present Platelet Evaluation Low (NORMAL) Polychromasia 1+ Hypochromasia 2+ Poikilocytosis (manual 2+ Anisocytosis (manual) 3+ Spherocytes Slight Sickle Cells Slight Tear Drop Cells Slight Aleena Cells Slight Schistocytes Slight Hemoglobin A (>96.0) Percent Hemoglobin A2 (1.8-3.5) Percent Hemoglobin C (0.0-0.0) Percent Hemoglobin F () (<2.0) Percent Hemoglobin S (0.0-0.0) Percent Variant Hemoglobin (0.0-0.0) Percent Hemoglobinopathy Interp PT 27.7 H (9.9-11.8) Seconds INR 2.56 H (0.93-1.08) APTT 85.3 H* (23.7-30.8) Seconds pCO2 (35-45) mm/Hg pO2 (80-100) mm/Hg HCO3 (21-28) mmol/L ABG pH (7.35-7.45) ABG Total CO2 (22-28) mmol.L ABG O2 Saturation (95-98) % ABG O2 Content (15-23) ML/dl ABG Base Excess (-2.0-3.0) mmol/L ABG Hemoglobin (11.7-17.4) g/dL ABG Carboxyhemoglobin (0.5-1.5) % POC ABG HHb (Measured) (0-5) % ABG Methemoglobin (0.0-3.0) % ABG O2 Capacity (16-24) mL/dl Hgb O2 Saturation (95.0-98.0) % FiO2 % Sodium 134 (132-148) mmol/L Potassium 3.9 (3.6-5.0) mmol/L Chloride 98 (98-107) mmol/L Carbon Dioxide 20 L (21-33) mmol/L Anion Gap 20 (10-20) BUN 27 H (7-21) mg/dL Creatinine 1.4 H (0.7-1.2) mg/dL Est GFR ( Amer) 51 Est GFR (Non-Af Amer) 42 POC Glucose (mg/dL) (65-110) mg/dL Random Glucose 189 H (70-110) mg/dL Calcium 8.3 L (8.4-10.5) mg/dL Phosphorus 2.7 (2.5-4.5) mg/dL Magnesium 1.8 (1.7-2.2) mg/dL Total Bilirubin 24.3 H* (0.2-1.3) mg/dL AST 154 H D (14-36) U/L ALT 38 (7-56) U/L Alkaline Phosphatase 342 H D (38-126) U/L Total Protein 6.3 (5.8-8.3) g/dL Albumin 3.3 (3.0-4.8) g/dL Globulin 2.9 gm/dL Albumin/Globulin Ratio 1.1 (1.1-1.8) 11/27/16 11/27/16 11/27/16 Range/Units 23:25 22:55 11:17 WBC (4.5-11.0) 10^3/ul RBC (3.5-6.1) 10^6/uL Hgb (12.0-16.0) g/dL Hct (36.0-48.0) % MCV (80.0-105.0) fl MCH (25.0-35.0) pg MCHC (31.0-37.0) g/dl RDW (11.5-14.5) % Plt Count (120.0-450.0) 10^3/uL Baso # (0.0-2.0) K/mm3 Corrected WBC (Man) (4.5-11.0) K/mm3 Neutrophils % (Manual) (50.0-70.0) % Band Neutrophils % (0-2) % Lymphocytes % (Manual) (22.0-35.0) % Atypical Lymphs % (0.0-0.0) % Monocytes % (Manual) (1.0-6.0) % Eosinophils % (Manual) (0.0-3.0) % Myelocytes % % Nucleated RBC % % Smudge Cells Platelet Evaluation (NORMAL) Polychromasia Hypochromasia Poikilocytosis (manual Anisocytosis (manual) Spherocytes Sickle Cells Tear Drop Cells [place] Cells Schistocytes Hemoglobin A (>96.0) Percent Hemoglobin A2 (1.8-3.5) Percent Hemoglobin C (0.0-0.0) Percent Hemoglobin F () (<2.0) Percent Hemoglobin S (0.0-0.0) Percent Variant Hemoglobin (0.0-0.0) Percent Hemoglobinopathy Interp PT (9.9-11.8) Seconds INR (0.93-1.08) APTT (23.7-30.8) Seconds pCO2 31 L (35-45) mm/Hg pO2 66.0 L (80-100) mm/Hg HCO3 21.1 (21-28) mmol/L ABG pH 7.44 (7.35-7.45) ABG Total CO2 22.1 (22-28) mmol.L ABG O2 Saturation 99.5 H (95-98) % ABG O2 Content 11.2 L (15-23) ML/dl ABG Base Excess -2.6 L (-2.0-3.0) mmol/L ABG Hemoglobin 8.5 L (11.7-17.4) g/dL ABG Carboxyhemoglobin 3.9 H (0.5-1.5) % POC ABG HHb (Measured) 0.5 (0-5) % ABG Methemoglobin 2.3 (0.0-3.0) % ABG O2 Capacity 11.3 L (16-24) mL/dl Hgb O2 Saturation 93.4 L (95.0-98.0) % FiO2 36.0 % Sodium (132-148) mmol/L Potassium (3.6-5.0) mmol/L Chloride (98-107) mmol/L Carbon Dioxide (21-33) mmol/L Anion Gap (10-20) BUN (7-21) mg/dL Creatinine (0.7-1.2) mg/dL Est GFR ( Amer) Est GFR (Non-Af Amer) POC Glucose (mg/dL) 201 H 270 H (65-110) mg/dL Random Glucose (70-110) mg/dL Calcium (8.4-10.5) mg/dL Phosphorus (2.5-4.5) mg/dL Magnesium (1.7-2.2) mg/dL Total Bilirubin (0.2-1.3) mg/dL AST (14-36) U/L ALT (7-56) U/L Alkaline Phosphatase (38-126) U/L Total Protein (5.8-8.3) g/dL Albumin (3.0-4.8) g/dL Globulin gm/dL Albumin/Globulin Ratio (1.1-1.8) 11/20/16 Range/Units 17:40 WBC (4.5-11.0) 10^3/ul RBC (3.5-6.1) 10^6/uL Hgb (12.0-16.0) g/dL Hct (36.0-48.0) % MCV (80.0-105.0) fl MCH (25.0-35.0) pg MCHC (31.0-37.0) g/dl RDW (11.5-14.5) % Plt Count (120.0-450.0) 10^3/uL Baso # (0.0-2.0) K/mm3 Corrected WBC (Man) (4.5-11.0) K/mm3 Neutrophils % (Manual) (50.0-70.0) % Band Neutrophils % (0-2) % Lymphocytes % (Manual) (22.0-35.0) % Atypical Lymphs % (0.0-0.0) % Monocytes % (Manual) (1.0-6.0) % Eosinophils % (Manual) (0.0-3.0) % Myelocytes % % Nucleated RBC % % Smudge Cells Platelet Evaluation (NORMAL) Polychromasia Hypochromasia Poikilocytosis (manual Anisocytosis (manual) Spherocytes Sickle Cells Tear Drop Cells [place] Cells Schistocytes Hemoglobin A 96.7 (>96.0) Percent Hemoglobin A2 2.3 (1.8-3.5) Percent Hemoglobin C 0.0 (0.0-0.0) Percent Hemoglobin F () <1.0 (<2.0) Percent Hemoglobin S 1.0 H (0.0-0.0) Percent Variant Hemoglobin 0.0 (0.0-0.0) Percent Hemoglobinopathy Interp See note PT (9.9-11.8) Seconds INR (0.93-1.08) APTT (23.7-30.8) Seconds pCO2 (35-45) mm/Hg pO2 (80-100) mm/Hg HCO3 (21-28) mmol/L ABG pH (7.35-7.45) ABG Total CO2 (22-28) mmol.L ABG O2 Saturation (95-98) % ABG O2 Content (15-23) ML/dl ABG Base Excess (-2.0-3.0) mmol/L ABG Hemoglobin (11.7-17.4) g/dL ABG Carboxyhemoglobin (0.5-1.5) % POC ABG HHb (Measured) (0-5) % ABG Methemoglobin (0.0-3.0) % ABG O2 Capacity (16-24) mL/dl Hgb O2 Saturation (95.0-98.0) % FiO2 % Sodium (132-148) mmol/L Potassium (3.6-5.0) mmol/L Chloride (98-107) mmol/L Carbon Dioxide (21-33) mmol/L Anion Gap (10-20) BUN (7-21) mg/dL Creatinine (0.7-1.2) mg/dL Est GFR ( Amer) Est GFR (Non-Af Amer) POC Glucose (mg/dL) (65-110) mg/dL Random Glucose (70-110) mg/dL Calcium (8.4-10.5) mg/dL Phosphorus (2.5-4.5) mg/dL Magnesium (1.7-2.2) mg/dL Total Bilirubin (0.2-1.3) mg/dL AST (14-36) U/L ALT (7-56) U/L Alkaline Phosphatase (38-126) U/L Total Protein (5.8-8.3) g/dL Albumin (3.0-4.8) g/dL Globulin gm/dL Albumin/Globulin Ratio (1.1-1.8) Laboratory Results - last 24 hr 11/20/16 11/27/16 11/27/16 17:40 11:17 22:55 WBC RBC Hgb Hct MCV MCH MCHC RDW Plt Count Baso # Corrected WBC (Man) Neutrophils % (Manual) Band Neutrophils % Lymphocytes % (Manual) Atypical Lymphs % Monocytes % (Manual) Eosinophils % (Manual) Myelocytes % Nucleated RBC % Smudge Cells Platelet Evaluation Polychromasia Hypochromasia Poikilocytosis (manual Anisocytosis (manual) Spherocytes Sickle Cells Tear Drop Cells [place] Cells Schistocytes Hemoglobin A 96.7 Hemoglobin A2 2.3 Hemoglobin C 0.0 Hemoglobin F () <1.0 Hemoglobin S 1.0 H Variant Hemoglobin 0.0 Hemoglobinopathy Interp See note PT INR APTT pCO2 31 L pO2 66.0 L HCO3 21.1 ABG pH 7.44 ABG Total CO2 22.1 ABG O2 Saturation 99.5 H ABG O2 Content 11.2 L ABG Base Excess -2.6 L ABG Hemoglobin 8.5 L ABG Carboxyhemoglobin 3.9 H POC ABG HHb (Measured) 0.5 ABG Methemoglobin 2.3 ABG O2 Capacity 11.3 L Hgb O2 Saturation 93.4 L FiO2 36.0 Sodium Potassium Chloride Carbon Dioxide Anion Gap BUN Creatinine Est GFR ( Amer) Est GFR (Non-Af Amer) POC Glucose (mg/dL) 270 H Random Glucose Calcium Phosphorus Magnesium Total Bilirubin AST ALT Alkaline Phosphatase Total Protein Albumin Globulin Albumin/Globulin Ratio 11/27/16 11/28/16 11/28/16 23:25 06:00 06:00 WBC 66.2 H* D RBC 2.63 L Hgb 8.5 L Hct 23.2 L MCV 88.2 MCH 32.3 MCHC 36.6 RDW 19.2 H Plt Count 33 L* Baso # Corrected WBC (Man) 11.6 H Neutrophils % (Manual) 50 Band Neutrophils % 3 H Lymphocytes % (Manual) 39 H Atypical Lymphs % 4 H Monocytes % (Manual) 2 Eosinophils % (Manual) 1 Myelocytes % 1 Nucleated RBC % 469 Smudge Cells Present Platelet Evaluation Low Polychromasia 1+ Hypochromasia 2+ Poikilocytosis (manual 2+ Anisocytosis (manual) 3+ Spherocytes Slight Sickle Cells Slight Tear Drop Cells Slight [place] Cells Slight Schistocytes Slight Hemoglobin A Hemoglobin A2 Hemoglobin C Hemoglobin F () Hemoglobin S Variant Hemoglobin Hemoglobinopathy Interp PT 27.7 H INR 2.56 H APTT 85.3 H* pCO2 pO2 HCO3 ABG pH ABG Total CO2 ABG O2 Saturation ABG O2 Content ABG Base Excess ABG Hemoglobin ABG Carboxyhemoglobin POC ABG HHb (Measured) ABG Methemoglobin ABG O2 Capacity Hgb O2 Saturation FiO2 Sodium Potassium Chloride Carbon Dioxide Anion Gap BUN Creatinine Est GFR ( Amer) Est GFR (Non-Af Amer) POC Glucose (mg/dL) 201 H Random Glucose Calcium Phosphorus Magnesium Total Bilirubin AST ALT Alkaline Phosphatase Total Protein Albumin Globulin Albumin/Globulin Ratio 11/28/16 11/28/16 11/28/16 06:00 07:56 11:16 WBC RBC Hgb Hct MCV MCH MCHC RDW Plt Count Baso # Corrected WBC (Man) Neutrophils % (Manual) Band Neutrophils % Lymphocytes % (Manual) Atypical Lymphs % Monocytes % (Manual) Eosinophils % (Manual) Myelocytes % Nucleated RBC % Smudge Cells Platelet Evaluation Polychromasia Hypochromasia Poikilocytosis (manual Anisocytosis (manual) Spherocytes Sickle Cells Tear Drop Cells [place] Cells Schistocytes Hemoglobin A Hemoglobin A2 Hemoglobin C Hemoglobin F () Hemoglobin S Variant Hemoglobin Hemoglobinopathy Interp PT INR APTT pCO2 pO2 HCO3 ABG pH ABG Total CO2 ABG O2 Saturation ABG O2 Content ABG Base Excess ABG Hemoglobin ABG Carboxyhemoglobin POC ABG HHb (Measured) ABG Methemoglobin ABG O2 Capacity Hgb O2 Saturation FiO2 Sodium 134 Potassium 3.9 Chloride 98 Carbon Dioxide 20 L Anion Gap 20 BUN 27 H Creatinine 1.4 H Est GFR ( Amer) 51 Est GFR (Non-Af Amer) 42 POC Glucose (mg/dL) 229 H 208 H Random Glucose 189 H Calcium 8.3 L Phosphorus 2.7 Magnesium 1.8 Total Bilirubin 24.3 H* AST 154 H D ALT 38 Alkaline Phosphatase 342 H D Total Protein 6.3 Albumin 3.3 Globulin 2.9 Albumin/Globulin Ratio 1.1 11/28/16 15:30 WBC RBC Hgb Hct MCV MCH MCHC RDW Plt Count Baso # Corrected WBC (Man) Neutrophils % (Manual) Band Neutrophils % Lymphocytes % (Manual) Atypical Lymphs % Monocytes % (Manual) Eosinophils % (Manual) Myelocytes % Nucleated RBC % Smudge Cells Platelet Evaluation Polychromasia Hypochromasia Poikilocytosis (manual Anisocytosis (manual) Spherocytes Sickle Cells Tear Drop Cells [place] Cells Schistocytes Hemoglobin A Hemoglobin A2 Hemoglobin C Hemoglobin F () Hemoglobin S Variant Hemoglobin Hemoglobinopathy Interp PT INR APTT pCO2 pO2 HCO3 ABG pH ABG Total CO2 ABG O2 Saturation ABG O2 Content ABG Base Excess ABG Hemoglobin ABG Carboxyhemoglobin POC ABG HHb (Measured) ABG Methemoglobin ABG O2 Capacity Hgb O2 Saturation FiO2 Sodium Potassium Chloride Carbon Dioxide Anion Gap BUN Creatinine Est GFR ( Amer) Est GFR (Non-Af Amer) POC Glucose (mg/dL) 181 H Random Glucose Calcium Phosphorus Magnesium Total Bilirubin AST ALT Alkaline Phosphatase Total Protein Albumin Globulin Albumin/Globulin Ratio Critical Care Progress Note - Nutrition Nutrition: Nutrition Category Date Time Status NPO Diet [DIET] Diets 11/18/16 Dinner Ordered Attending/Attestation - Attestation I have personally seen and examined this patient.: Yes I have fully participated in the care of the patient.: Yes I have reviewed all pertinent clinical information: Yes Notes (Text): 11/28/16 15:52 36 y/o F w. SC disease w/ MODS Resolution of her septic shock . S/p extubation, noted to have difficulty clearing secretions. Chest pt/ nebs needed. AMS secondary to hepatic encephalopathy . Lactulose to be restarted vis NGT or DF as tolerated. MELITON, s/p HD, urien output minimal . Would suggest tracheostomy due to MS issues and difficulty protecting airway. poor prognosis Thrombocytopenia noted, keep platelets > 50k. cc time 55 min
[2016-11-28 11:37] LABS: ATYPICAL LYMPHOCYTE 4 % (0.0-0.0); BAND 3 % (0-2); EOSINOPHIL 1 % (0.0-3.0); MYELOCYTE 1 %; NEUTROPHIL 50 % (50.0-70.0)
[2016-11-28 11:38] LABS: ANISOCYTOSIS 3+; CORRECTED WBC 11.6 K/mm3 (4.5-11.0); HYPOCHROMIA 2+; NUCLEATED RED BLOOD CELL 469 %; PLATELET ESTIMATE LOW (NORMAL); POIKILOCYTOSIS 2+; POLYCHROMASIA 1+
[2016-11-28 11:39] LABS: BURR CELLS SLIGHT; SMUDGE CELLS PRESENT; SPHEROCYTE SLIGHT; TEAR DROP CELLS SLIGHT
--- NOTE | 2016-11-28 15:24 | RAD ---
HISTORY: dobhoff tube placement COMPARISON: 11/28/2016 FINDINGS: Enteric tube terminates in the stomach. The left perma catheter terminates in the right atrium. The right MediPort catheter terminates at the cavoatrial junction. LUNGS: There are low lung volumes. There is confluent airspace disease in the right perihilar region and left lower lobe. There is mild pulmonary venous congestion. PLEURA: No significant pleural effusion identified, no pneumothorax apparent. CARDIOVASCULAR: Normal. OSSEOUS STRUCTURES: No significant abnormalities. VISUALIZED UPPER ABDOMEN: Normal. OTHER FINDINGS: None. IMPRESSION: 1. Enteric tube terminates in the stomach. 2. Stable position of the right MediPort and left PermCath. 3. Confluent airspace disease in the right perihilar region may represent atelectasis or mild alveolar edema. Also noted is persistent mild pulmonary venous congestion. Low lung volumes may be related to poor inspiratory effort.
--- NOTE | 2016-11-28 15:58 | CP.PCM.PN ---
<Landon Melchor - Last Filed: 11/28/16 16:06> Subjective - Date & Time of Evaluation Date of Evaluation: 11/28/16 Time of Evaluation: 15:56 - Subjective Subjective: Patient was seen and examined at bedside. Per nursing there were no acute events overnight. Patient is in process of approval for LTAC placement and potential transfer. The patient doesn't respond to any stimuli. ROS unobtainable due to current clinical condition. Objective - Vital Signs/Intake and Output Vital Signs (last 24 hours): Temp Pulse Resp BP Pulse Ox 98 F 127 H 30 H 101/52 L 96 11/28/16 12:00 11/28/16 13:05 11/28/16 13:05 11/28/16 13:00 11/28/16 12:59 Intake and Output: 11/28/16 11/28/16 06:59 18:59 Intake Total 1997 Output Total 2470 Balance -472 - Medications Medications: Current Medications Albumin Human (Albumin Human 25% (12.5 Gm/50 Ml)) 12.5 gm IV Q6H [facility] Last Admin: 11/28/16 10:26 Dose: 12.5 gm Albuterol/Ipratropium (Duoneb 3 Mg/0.5 Mg (3 Ml) Ud) 3 ml IH [id number] ARLETTE Last Admin: 11/28/16 13:24 Dose: 3 ml Albuterol/Ipratropium (Duoneb 3 Mg/0.5 Mg (3 Ml) Ud) 3 ml IH [id number] PRN PRN Reason: SOB, congestion, desats Last Admin: 11/28/16 06:08 Dose: 3 ml Furosemide (Lasix) 40 mg IVP DAILY [facility] Last Admin: 11/17/16 09:00 Dose: 40 mg Heparin Sodium (Porcine) (Heparin) 5,000 units SC Q12 ARLETTE PRN Reason: Protocol Last Admin: 11/16/16 21:44 Dose: Not Given Hydrocortisone Sodium Succinate (Solu-Cortef) 50 mg IVP Q12H ARLETTE Last Admin: 11/28/16 01:41 Dose: 50 mg Metronidazole (Flagyl) 500 mg in 100 mls @ 100 mls/hr IVPB Q8 ARLETTE PRN Reason: Protocol Last Admin: 11/28/16 05:31 Dose: 100 mls/hr Dobutamine HCl/Dextrose (Dobutamine/Dextrose 5% 500mg/250ml) 500 mg in 250 mls @ 5.647 mls/hr IV .Q24H PRN; Protocol; 2.5 MCG/KG/MIN PRN Reason: TITRATE PER PROTOCOL Last Admin: 11/27/16 06:33 Dose: 5.647 mls/hr Vasopressin 20 units/ Dextrose 101 mls @ 9.09 mls/hr IV .Q11H7M ARLETTE; 0.03 U/MIN PRN Reason: Protocol Last Admin: 11/25/16 21:00 Dose: 9.09 mls/hr Multivitamins/Vitamin C 10 ml/Amino Acids/Electrolytes/Dextrose 2,010 mls @ 83 mls/hr IV .Q24H ARLETTE Stop: 11/29/16 17:59 Last Admin: 11/27/16 21:11 Dose: 83 mls/hr Fat Emulsion Intravenous (Intralipid 20%) 250 mls @ 21 mls/hr IV MWF@1800 ARLETTE Stop: 11/29/16 17:59 Last Admin: 11/27/16 21:11 Dose: 21 mls/hr Levetiracetam 750 mg/ Sodium (Chloride) 107.5 mls @ 460 mls/hr IV Q12 ARLETTE Last Admin: 11/28/16 10:05 Dose: 460 mls/hr Pantoprazole Sodium (Protonix Inj) 40 mg IVP Q12 ARLETTE Last Admin: 11/28/16 10:00 Dose: 40 mg Rifaximin (Xifaxan) 550 mg PO BID ARLETTE PRN Reason: Protocol Last Admin: 11/19/16 14:57 Dose: Not Given - Labs Labs: 11/28/16 06:00 11/28/16 06:00 PT 27.7 Seconds (9.9-11.8) H 11/28/16 06:00 INR 2.56 (0.93-1.08) H 11/28/16 06:00 APTT 85.3 Seconds (23.7-30.8) H* 11/28/16 06:00 Assessment and Plan - Assessment and Plan (Free Text) Assessment: 36 y/o F with PMH of Sickle cell disease, Bipolar disorder, Cerebral palsy, Asthma, CHF here for likely vaso-occlusive crisis complicated by progressive liver failure, intrahepatic cholestasis. Hospital course complicated by thrombocytopenia, coagulopathy, leukocytosis, MELITON, hepatic encephalopathy. On Dobutamine for support. Plan: 1. Likely Vaso-occlusive crisis -secondary to sickle cell disease -Hb 8.5today. s/p 1 Unit of PRBC's yesterday. -will transfuse if Hb <7. Will transfuse as needed. -Continue Hydroxyurea -Heme following, awaiting recs -transfusion exchange as per Heme and Nephro -Surgery rec's appreciated. 2. Liver disease -Patient not a candidate for liver transplantation at this time as per discussion with [facility] and [facility]. -Family doesn't want Hospice care. LTEC acceptance pending. Clinical outcome is poor. -Transaminitis -Thrombocytopenia -Hyperbilirubinemia elevated and stable. Intrahepatic -Hepatology signed off -prognosis poor 3. Upper GI bleed -likely secondary to OG trauma -S/p bedside EGD on 11/19 -Patient s/p 2 Platelets and 1 FFP. Will continue to monitor closely. -Continue Protonix 40 q12 daily 4. Possible Colitis -CT - evidence of possible colitis -repeat CDiff negative. -Surgery rec's appreciated. -Low suspicion for colitis -Patient is not a candidate for surgery 5. MELITON -Nephro following -Continues to be oliguric -Dialysis recs as per nephro -Bladder pressure increased yesterday, not a surgical candidate. 6. CHF -Continue Lasix 40 mg daily -Continue Dobutamine drip -EF - 39.7% in June 2016 -Cardiology following 7. Respiratory failure -Extubated on 11/21, on High flow O2 -Continue breathing treatments 8. Leukocytosis -WBC count trending down. Will continue to monitor closely. -Blood cultures negative -Urine cultures negative -repeat CDiff negative. -ID following -Continue IV Abx 9. Electrolyte abnormalities Replete as needed. Will follow with serial cmp's. 10. PPx Protonix SCDs <Jena Ruff - Last Filed: 11/29/16 15:35> Objective - Vital Signs/Intake and Output Vital Signs (last 24 hours): Temp Pulse Resp BP Pulse Ox 98.3 F 89 19 81/33 L 100 11/29/16 08:00 11/29/16 09:02 11/29/16 09:07 11/29/16 08:02 11/29/16 08:02 Intake and Output: 11/29/16 11/29/16 06:59 18:59 Intake Total 1096 Output Total 25 Balance 1071 - Labs Labs: 11/29/16 05:30 11/29/16 05:30 PT 39.7 Seconds (9.9-11.8) H* 11/29/16 05:30 INR 3.68 (0.93-1.08) H* 11/29/16 05:30 APTT 140.3 Seconds (23.7-30.8) H* 11/29/16 05:30 Attending/Attestation - Attestation I have personally seen and examined this patient.: Yes I have fully participated in the care of the patient.: Yes I have reviewed all pertinent clinical information, including history, physical exam and plan: Yes Notes (Text): 11/29/16 15:30 Patient was seen and examined with medical library assistant. We had a family meeting with patient mother, ICU attending was in the meeting.Patient over all condition , management plan and prognosis was explained. Patient mother has decided to make her DNR/DNI. Patient will be DNR/DNI. Prognosis is guarded.
--- NOTE | 2016-11-28 17:41 | CP.PCM.PN ---
Subjective - Date & Time of Evaluation Date of Evaluation: 11/28/16 Time of Evaluation: 17:00 - Subjective Subjective: Infectious Disease Follow Up: November 28, 2016 36 yo AA female well known to me from previous hospitalizations at [facility] and [facility] presented with generalized pains and admitted for Sickle Cell vasoocclusive Crisis. The patient was just discharged from [facility] a few days ago. She returns with abdominal pain, nausea, and vomiting. The patient did not exhibit a fever while hospitalized so far but came very close with a 100.0 F. Patient with nausea and vomiting and diarrhea. Her blood pressure is lower than her usual. Started on Zosyn for antibiotic treatment. Sudden elevation of LFTs. Zosyn stopped on 11/14/2016. Impending liver failure ? Acute Kidney Injury. Noted Vancomycin restarted. Would continue with Cefepime for the time being. There is a leukocytosis of 67.8 although corrected WBC is 13.0. Patient appears swollen in general. AST and ALT are still elevated but downtrending. Chelation therapy still in progress. Undergoing red cell exchange transfusion and plasmapheresis yesterday as well as hemodialysis. Patient remains intubated and ventilated. Extremely poor prognosis. The patient is not a candidate for liver transplant at this time as per the [facility] Liver transplant center. Supportive care. Renal dosing of antibiotics. Prognosis dismal. Patient had 2 red cell exchanges during this hospitalization. Multiorgan failure. Extubated and off pressors. The patient has eyes open but little response now compared to a few days ago. She rarely tracks. The patient mentation has been worsening since the past weekend. Again the patient' s overall prognosis is very poor. She on HD... she has HD 4 to 5 times a week. Family want Full Code in effect despite the patient's berenice On antibiotics for almost the entirety of this hospitalization. Off antibiotics at this time. Objective - Vital Signs/Intake and Output Vital Signs (last 24 hours): Temp Pulse Resp BP Pulse Ox 98 F 127 H 30 H 101/52 L 96 11/28/16 12:00 11/28/16 13:05 11/28/16 13:05 11/28/16 13:00 11/28/16 12:59 Intake and Output: 11/28/16 11/28/16 06:59 18:59 Intake Total 1998 Output Total 2470 Balance -472 - Medications Medications: Current Medications Albumin Human (Albumin Human 25% (12.5 Gm/50 Ml)) 12.5 gm IV Q6H [facility] Last Admin: 11/28/16 10:26 Dose: 12.5 gm Albuterol/Ipratropium (Duoneb 3 Mg/0.5 Mg (3 Ml) Ud) 3 ml IH [id number] ARLETTE Last Admin: 11/28/16 13:24 Dose: 3 ml Albuterol/Ipratropium (Duoneb 3 Mg/0.5 Mg (3 Ml) Ud) 3 ml IH [id number] PRN PRN Reason: SOB, congestion, desats Last Admin: 11/28/16 06:08 Dose: 3 ml Furosemide (Lasix) 40 mg IVP DAILY [facility] Last Admin: 11/17/16 09:00 Dose: 40 mg Heparin Sodium (Porcine) (Heparin) 5,000 units SC Q12 ARLETTE PRN Reason: Protocol Last Admin: 11/16/16 21:44 Dose: Not Given Hydrocortisone Sodium Succinate (Solu-Cortef) 50 mg IVP Q12H [facility] Last Admin: 11/28/16 01:41 Dose: 50 mg Metronidazole (Flagyl) 500 mg in 100 mls @ 100 mls/hr IVPB Q8 ARLETTE PRN Reason: Protocol Last Admin: 11/28/16 05:31 Dose: 100 mls/hr Dobutamine HCl/Dextrose (Dobutamine/Dextrose 5% 500mg/250ml) 500 mg in 250 mls @ 5.647 mls/hr IV .Q24H PRN; Protocol; 2.5 MCG/KG/MIN PRN Reason: TITRATE PER PROTOCOL Last Admin: 11/27/16 06:33 Dose: 5.647 mls/hr Vasopressin 20 units/ Dextrose 101 mls @ 9.09 mls/hr IV .Q11H7M ARLETTE; 0.03 U/MIN PRN Reason: Protocol Last Admin: 11/25/16 21:00 Dose: 9.09 mls/hr Multivitamins/Vitamin C 10 ml/Amino Acids/Electrolytes/Dextrose 2,010 mls @ 83 mls/hr IV .Q24H ARLETTE Stop: 11/29/16 17:59 Last Admin: 11/27/16 21:11 Dose: 83 mls/hr Fat Emulsion Intravenous (Intralipid 20%) 250 mls @ 21 mls/hr IV MWF@1800 [facility] Stop: 11/29/16 17:59 Last Admin: 11/27/16 21:11 Dose: 21 mls/hr Levetiracetam 750 mg/ Sodium (Chloride) 107.5 mls @ 460 mls/hr IV Q12 [facility] Last Admin: 11/28/16 10:05 Dose: 460 mls/hr Lactulose (Enulose) 20 gm PO Q3H ARLETTE Pantoprazole Sodium (Protonix Inj) 40 mg IVP Q12 [facility] Last Admin: 11/28/16 10:00 Dose: 40 mg Rifaximin (Xifaxan) 550 mg PO BID ARLETTE PRN Reason: Protocol Last Admin: 11/19/16 14:57 Dose: Not Given Rifaximin (Xifaxan) 550 mg PO BID [facility] PRN Reason: Protocol - Labs Labs: 11/28/16 06:00 11/28/16 06:00 PT 27.7 Seconds (9.9-11.8) H 11/28/16 06:00 INR 2.56 (0.93-1.08) H 11/28/16 06:00 APTT 85.3 Seconds (23.7-30.8) H* 11/28/16 06:00 - Constitutional Appears: No Acute Distress, Chronically Ill - Head Exam Additional comments: +1 swelling of the face - Eye Exam Eye Exam: PERRL Pupil Exam: NORMAL ACCOMODATION - ENT Exam ENT Exam: Mucous Membranes Moist, Normal External Ear Exam, TM's Normal Bilaterally - Respiratory Exam Respiratory Exam: Decreased Breath Sounds. absent: Rales, Rhonchi, Wheezes - Cardiovascular Exam Cardiovascular Exam: Tachycardia, RRR, +S1, +S2 - GI/Abdominal Exam GI & Abdominal Exam: Distended, Soft, Normal Bowel Sounds. absent: Tenderness - Extremities Exam Extremities Exam: Joint Swelling, Pedal Edema - Neurological Exam Additional comments: AAO x 0, rarely tracks, poorly responsive. - Psychiatric Exam Additional comments: Unable to test - Skin Additional comments: general edema. Assessment and Plan - Assessment and Plan (Free Text) Assessment: 36 yo AA female with known Sickle Cell disease presenting with diarrhea and abdominal pain. Low blood pressure/borderline hypotension. Supportive care. Velarde cultures. No leukocytosis noted however. Coagulase negative staph according to FISH studies. Sudden increase in LFTs and creatinine. Continue with renal dosing of Cefepime for now. Vancomycin should be adjusted for renal function. LFT are continuing to increase. Acute Kidney Injury with creatinine of 1.4 now that is overall improving. Remains in MICU for further care. General edema of the patient. Increasing leukocytosis. Noted that the patient's cultures are negative to date. LFTs remain severely elevated. 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 Extremely poor prognosis. Extubated today. Generalized edema. Liver Cirrhosis. Not deemed a candidate for liver transplant by [facility] Liver center. Patient is receiving hemodialysis. Multi-organ failure. EGD done with cauterization of an ulcer during this hospitalization. Patient's prognosis remains poor. She has been extubated and is off pressor medications. She is now awake and can track but doesn't follow commands. Mentation has been worsening over the weekend. White count is elevated ( corrected WBC was up to 11.2) and currently at 66.2. Stopped antibiotics at this time and monitor. Her prognosis remains extremely poor to the point I would call it dismal. The patient remains critically ill. Thank you for allowing me to participate in the care of the patient, we will follow with you.
--- NOTE | 2016-11-28 18:07 | CP.PCM.PCO ---
Physician Communication Note - Physician Communication Note Physician Communication Note: Family meeting was held ,mother has decided to make patient DNR/DNI,
--- NOTE | 2016-11-28 18:07 | CP.PCM.PN ---
Subjective - Date & Time of Evaluation Date of Evaluation: 11/28/16 Time of Evaluation: 18:00 - Subjective Subjective: I had an extensive conversation with the patient's mother about goals of care. The patient is seen to be more encephalopathic and struggling to breath. She was suctioned and placed on BIPAP when the mother walked in. I had discussed the next steps in the presence of the palliative care team, hospitalist and respiratory therapist. The mother understood the risks of not intubating and requested us to not escalate care and make her daughter DNR/DNI. She understood the multiorgan failure that the patient is going through. Objective - Vital Signs/Intake and Output Vital Signs (last 24 hours): Temp Pulse Resp BP Pulse Ox 98 F 127 H 30 H 101/52 L 96 11/28/16 12:00 11/28/16 13:05 11/28/16 13:05 11/28/16 13:00 11/28/16 12:59 Intake and Output: 11/28/16 11/28/16 06:59 18:59 Intake Total 1998 Output Total 2470 Balance -472 - Medications Medications: Current Medications Albumin Human (Albumin Human 25% (12.5 Gm/50 Ml)) 12.5 gm IV Q6H [facility] Last Admin: 11/28/16 17:31 Dose: 12.5 gm Albuterol/Ipratropium (Duoneb 3 Mg/0.5 Mg (3 Ml) Ud) 3 ml IH [id number] [facility] Last Admin: 11/28/16 13:24 Dose: 3 ml Albuterol/Ipratropium (Duoneb 3 Mg/0.5 Mg (3 Ml) Ud) 3 ml IH [id number] PRN PRN Reason: SOB, congestion, desats Last Admin: 11/28/16 06:08 Dose: 3 ml Furosemide (Lasix) 40 mg IVP DAILY [facility] Last Admin: 11/17/16 09:00 Dose: 40 mg Heparin Sodium (Porcine) (Heparin) 5,000 units SC Q12 [facility] PRN Reason: Protocol Last Admin: 11/16/16 21:44 Dose: Not Given Hydrocortisone Sodium Succinate (Solu-Cortef) 50 mg IVP Q12H [facility] Last Admin: 11/28/16 01:41 Dose: 50 mg Metronidazole (Flagyl) 500 mg in 100 mls @ 100 mls/hr IVPB Q8 [facility] PRN Reason: Protocol Last Admin: 11/28/16 05:31 Dose: 100 mls/hr Dobutamine HCl/Dextrose (Dobutamine/Dextrose 5% 500mg/250ml) 500 mg in 250 mls @ 5.647 mls/hr IV .Q24H PRN; Protocol; 2.5 MCG/KG/MIN PRN Reason: TITRATE PER PROTOCOL Last Admin: 11/27/16 06:33 Dose: 5.647 mls/hr Vasopressin 20 units/ Dextrose 101 mls @ 9.09 mls/hr IV .Q11H7M [facility]; 0.03 U/MIN PRN Reason: Protocol Last Admin: 11/25/16 21:00 Dose: 9.09 mls/hr Multivitamins/Vitamin C 10 ml/Amino Acids/Electrolytes/Dextrose 2,010 mls @ 83 mls/hr IV .Q24H [facility] Stop: 11/29/16 17:59 Last Admin: 11/28/16 17:34 Dose: 83 mls/hr Fat Emulsion Intravenous (Intralipid 20%) 250 mls @ 21 mls/hr IV MWF@1800 [facility] Stop: 11/29/16 17:59 Last Admin: 11/27/16 21:11 Dose: 21 mls/hr Levetiracetam 750 mg/ Sodium (Chloride) 107.5 mls @ 460 mls/hr IV Q12 [facility] Last Admin: 11/28/16 10:05 Dose: 460 mls/hr Lactulose (Enulose) 20 gm PO Q3H [facility] Pantoprazole Sodium (Protonix Inj) 40 mg IVP Q12 [facility] Last Admin: 11/28/16 10:00 Dose: 40 mg Rifaximin (Xifaxan) 550 mg PO BID [facility] PRN Reason: Protocol Last Admin: 11/19/16 14:57 Dose: Not Given Rifaximin (Xifaxan) 550 mg PO BID [facility] PRN Reason: Protocol Last Admin: 11/28/16 17:59 Dose: 550 mg - Labs Labs: 11/28/16 06:00 11/28/16 06:00 PT 27.7 Seconds (9.9-11.8) H 11/28/16 06:00 INR 2.56 (0.93-1.08) H 11/28/16 06:00 APTT 85.3 Seconds (23.7-30.8) H* 11/28/16 06:00
--- NOTE | 2016-11-28 18:08 | CP.PCM.PN ---
Subjective - Date & Time of Evaluation Date of Evaluation: 11/28/16 Time of Evaluation: 17:00 - Subjective Subjective: Unresponsive,irregular breathing. Objective - Vital Signs/Intake and Output Vital Signs (last 24 hours): Temp Pulse Resp BP Pulse Ox 98 F 127 H 30 H 101/52 L 96 11/28/16 12:00 11/28/16 13:05 11/28/16 13:05 11/28/16 13:00 11/28/16 12:59 Intake and Output: 11/28/16 11/28/16 06:59 18:59 Intake Total 1997 Output Total 0 Balance -472 - Medications Medications: Current Medications Albumin Human (Albumin Human 25% (12.5 Gm/50 Ml)) 12.5 gm IV Q6H [facility] Last Admin: 11/28/16 17:31 Dose: 12.5 gm Albuterol/Ipratropium (Duoneb 3 Mg/0.5 Mg (3 Ml) Ud) 3 ml IH [id number] [facility] Last Admin: 11/28/16 13:24 Dose: 3 ml Albuterol/Ipratropium (Duoneb 3 Mg/0.5 Mg (3 Ml) Ud) 3 ml IH [id number] PRN PRN Reason: SOB, congestion, desats Last Admin: 11/28/16 06:08 Dose: 3 ml Furosemide (Lasix) 40 mg IVP DAILY [facility] Last Admin: 11/17/16 09:00 Dose: 40 mg Heparin Sodium (Porcine) (Heparin) 5,000 units SC Q12 [facility] PRN Reason: Protocol Last Admin: 11/16/16 21:44 Dose: Not Given Hydrocortisone Sodium Succinate (Solu-Cortef) 50 mg IVP Q12H [facility] Last Admin: 11/28/16 01:41 Dose: 50 mg Metronidazole (Flagyl) 500 mg in 100 mls @ 100 mls/hr IVPB Q8 [facility] PRN Reason: Protocol Last Admin: 11/28/16 05:31 Dose: 100 mls/hr Dobutamine HCl/Dextrose (Dobutamine/Dextrose 5% 500mg/250ml) 500 mg in 250 mls @ 5.647 mls/hr IV .Q24H PRN; Protocol; 2.5 MCG/KG/MIN PRN Reason: TITRATE PER PROTOCOL Last Admin: 11/27/16 06:33 Dose: 5.647 mls/hr Vasopressin 20 units/ Dextrose 101 mls @ 9.09 mls/hr IV .Q11H7M [facility]; 0.03 U/MIN PRN Reason: Protocol Last Admin: 11/25/16 21:00 Dose: 9.09 mls/hr Multivitamins/Vitamin C 10 ml/Amino Acids/Electrolytes/Dextrose 2,010 mls @ 83 mls/hr IV .Q24H [facility] Stop: 11/29/16 17:59 Last Admin: 11/28/16 17:34 Dose: 83 mls/hr Fat Emulsion Intravenous (Intralipid 20%) 250 mls @ 21 mls/hr IV MWF@1800 [facility] Stop: 11/29/16 17:59 Last Admin: 11/27/16 21:11 Dose: 21 mls/hr Levetiracetam 750 mg/ Sodium (Chloride) 107.5 mls @ 460 mls/hr IV Q12 [facility] Last Admin: 11/28/16 10:05 Dose: 460 mls/hr Lactulose (Enulose) 20 gm PO Q3H [facility] Pantoprazole Sodium (Protonix Inj) 40 mg IVP Q12 [facility] Last Admin: 11/28/16 10:00 Dose: 40 mg Rifaximin (Xifaxan) 550 mg PO BID [facility] PRN Reason: Protocol Last Admin: 11/19/16 14:57 Dose: Not Given Rifaximin (Xifaxan) 550 mg PO BID [facility] PRN Reason: Protocol Last Admin: 11/28/16 17:59 Dose: 550 mg - Labs Labs: 11/28/16 06:00 11/28/16 06:00 PT 27.7 Seconds (9.9-11.8) H 11/28/16 06:00 INR 2.56 (0.93-1.08) H 11/28/16 06:00 APTT 85.3 Seconds (23.7-30.8) H* 11/28/16 06:00 - Constitutional Appears: Cachectic, Chronically Ill - Eye Exam Eye Exam: Scleral icterus Pupil Exam: Unequal - ENT Exam ENT Exam: Mucous Membranes Moist - Respiratory Exam Respiratory Exam: Decreased Breath Sounds - Cardiovascular Exam Cardiovascular Exam: REGULAR RHYTHM, +S1, +S2 - GI/Abdominal Exam GI & Abdominal Exam: Soft, Diminished Bowel Sounds - Exam Additional comments: oliguria - Extremities Exam Additional comments: edematous - Neurological Exam Neurological Exam: Altered - Skin Skin Exam: Dry Additional comments: jaundice Assessment and Plan - Assessment and Plan (Free Text) Assessment: 36 year old female with 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 Mother at bedside. Dr Silverman, Dr Ruff explained the severity of daughters condition. Mother verbalizes understanding of her daughters situation. Mother states that she knows her daughters organs are failing and that she is nearing end of life. Mother does not want aggressive life prolonging measures such as CPR and intubation. Mother expressed that she wants her daughter made DNR/DNI in the presence of myself, Dr Arnie Silverman and Dr. Yeyo Ruff. Mother slowly accepting that despite multiple medical interventions, daughters condition continues to decline and that she is nearing end of life.Psychosocial support given> Spitiual support offered Time spent in goals of care and end of life counseling , 30 minutes Plan: Palliative support, end of life counseling DNR/DNI
--- NOTE | 2016-11-28 18:38 | CP.PCM.PN ---
Subjective - Date & Time of Evaluation Date of Evaluation: 11/28/16 Time of Evaluation: 11:00 - Subjective Subjective: Patient not responding to verbal stimuli; Objective - Vital Signs/Intake and Output Vital Signs (last 24 hours): Temp Pulse Resp BP Pulse Ox 98.1 F 117 H 25 H 79/37 L 98 11/28/16 16:00 11/28/16 18:30 11/28/16 18:30 11/28/16 18:30 11/28/16 18:30 Intake and Output: 11/28/16 11/28/16 06:59 18:59 Intake Total 1997 Output Total 2470 Balance -472 - Medications Medications: Current Medications Albumin Human (Albumin Human 25% (12.5 Gm/50 Ml)) 12.5 gm IV Q6H [facility] Last Admin: 11/28/16 17:31 Dose: 12.5 gm Albuterol/Ipratropium (Duoneb 3 Mg/0.5 Mg (3 Ml) Ud) 3 ml IH [id number] [facility] Last Admin: 11/28/16 13:24 Dose: 3 ml Albuterol/Ipratropium (Duoneb 3 Mg/0.5 Mg (3 Ml) Ud) 3 ml IH [id number] PRN PRN Reason: SOB, congestion, desats Last Admin: 11/28/16 06:08 Dose: 3 ml Furosemide (Lasix) 40 mg IVP DAILY [facility] Last Admin: 11/17/16 09:00 Dose: 40 mg Heparin Sodium (Porcine) (Heparin) 5,000 units SC Q12 [facility] PRN Reason: Protocol Last Admin: 11/16/16 21:44 Dose: Not Given Hydrocortisone Sodium Succinate (Solu-Cortef) 50 mg IVP Q12H [facility] Last Admin: 11/28/16 18:28 Dose: 50 mg Metronidazole (Flagyl) 500 mg in 100 mls @ 100 mls/hr IVPB Q8 [facility] PRN Reason: Protocol Last Admin: 11/28/16 18:28 Dose: 100 mls/hr Dobutamine HCl/Dextrose (Dobutamine/Dextrose 5% 500mg/250ml) 500 mg in 250 mls @ 5.647 mls/hr IV .Q24H PRN; Protocol; 2.5 MCG/KG/MIN PRN Reason: TITRATE PER PROTOCOL Last Admin: 11/27/16 06:33 Dose: 5.647 mls/hr Vasopressin 20 units/ Dextrose 101 mls @ 9.09 mls/hr IV .Q11H7M [facility]; 0.03 U/MIN PRN Reason: Protocol Last Admin: 11/25/16 21:00 Dose: 9.09 mls/hr Multivitamins/Vitamin C 10 ml/Amino Acids/Electrolytes/Dextrose 2,010 mls @ 83 mls/hr IV .Q24H [facility] Stop: 11/29/16 17:59 Last Admin: 11/28/16 17:34 Dose: 83 mls/hr Fat Emulsion Intravenous (Intralipid 20%) 250 mls @ 21 mls/hr IV MWF@1800 [facility] Stop: 11/29/16 17:59 Last Admin: 11/27/16 21:11 Dose: 21 mls/hr Levetiracetam 750 mg/ Sodium (Chloride) 107.5 mls @ 460 mls/hr IV Q12 [facility] Last Admin: 11/28/16 10:05 Dose: 460 mls/hr Lactulose (Enulose) 20 gm PO Q3H [facility] Last Admin: 11/28/16 18:29 Dose: 20 gm Pantoprazole Sodium (Protonix Inj) 40 mg IVP Q12 [facility] Last Admin: 11/28/16 10:00 Dose: 40 mg Rifaximin (Xifaxan) 550 mg PO BID [facility] PRN Reason: Protocol Last Admin: 11/19/16 14:57 Dose: Not Given Rifaximin (Xifaxan) 550 mg PO BID [facility] PRN Reason: Protocol Last Admin: 11/28/16 17:59 Dose: 550 mg - Labs Labs: 11/28/16 06:00 11/28/16 06:00 PT 27.7 Seconds (9.9-11.8) H 11/28/16 06:00 INR 2.56 (0.93-1.08) H 11/28/16 06:00 APTT 85.3 Seconds (23.7-30.8) H* 11/28/16 06:00 - Constitutional Appears: In Acute Distress, Confused - Eye Exam Eye Exam: Scleral icterus - ENT Exam ENT Exam: Mucous Membranes Moist - Respiratory Exam Respiratory Exam: Respiratory Distress Additional comments: tachypneic - Cardiovascular Exam Additional comments: muffled heart sounds - GI/Abdominal Exam GI & Abdominal Exam: Firm - Extremities Exam Additional comments: markedly edematous - Neurological Exam Neurological Exam: Altered, Awake - Skin Skin Exam: Warm. absent: Cyanosis Assessment and Plan (1) Acute renal failure Assessment & Plan: Multifactorial; oliguric renal failure, HD dependent; attempted extra UF session today in order to try to keep net even fluid balances but unable to reach goal due to hypotension; due for full HD session tomorrow; patient's mother was explained why we are doing dialysis and that she may choose to discontinue it at any time (which may be a reasonable choice given multiple co- morbidities and poor overall prognosis); Status: Acute (2) Acute hypoxemic respiratory failure Assessment & Plan: More tachypneic today, unclear why; FIO2 requirement overall improved; however, now placed on BIPAP to assist respiration; trying to UF to decrease any pulmonary vascular congestion; Status: Acute (3) Acute exacerbation of CHF (congestive heart failure) Assessment & Plan: With systolic dysfunction; on dobutamine; CXR being read as increased pulm vascular congestion; UF as above; Status: Acute (4) Acute liver failure Assessment & Plan: No sign of recovery; may be causing HRS; HD/UF as above until family decides to withdraw; Status: Acute (5) Sickle cell anemia with crisis Status: Acute
[2016-11-29] MEDS: Albumin Human 25% (12.5 gm/50 ml) IV SCH ×2 (01:39→08:24)
[2016-11-29] MEDS: Albuterol-Ipratrop 3 mg / 0.5 (3 ml) UD IH SCH ×2 (01:40→07:30)
[2016-11-29] MEDS: metroNIDAZOLE IV 500 mg/100 ml 500 MG/100 ML BAG IVPB SCH (05:18)
[2016-11-29 06:34] LABS: MEAN CELL VOLUME 90.5 fl (80.0-105.0); MEAN CORPUSCULAR HEMOGLOBIN 31.8 pg (25.0-35.0); MEAN CORPUSCULAR HGB CONC 35.2 g/dl (31.0-37.0); RED CELL DISTRIBUTION WIDTH 19.9 % (11.5-14.5)
[2016-11-29 06:45] LABS: PARTIAL THROMBOPLASTIN TIME 140.3 Seconds (23.7-30.8)
[2016-11-29 06:46] LABS: INR 3.68 (0.93-1.08); WHITE BLOOD COUNT 54.8 10^3/ul (4.5-11.0)
[2016-11-29 06:47] LABS: HEMATOCRIT 19.9 % (36.0-48.0); PLATELET COUNT 11 10^3/uL (120.0-450.0)
[2016-11-29 07:01] LABS: ALB/GLOB RATIO 1.1 (1.1-1.8); CALCIUM 8.5 mg/dL (8.4-10.5); MAGNESIUM 1.8 mg/dL (1.7-2.2); PHOSPHOROUS 3.1 mg/dL (2.5-4.5); POTASSIUM 4.1 mmol/L (3.6-5.0); TOTAL PROTEIN 5.6 g/dL (5.8-8.3)
[2016-11-29 07:39] LABS: EOSINOPHIL 2 % (0.0-3.0); METAMYELOCYTE 8 %; MYELOCYTE 10 %
[2016-11-29 07:40] LABS: CORRECTED WBC 3.6 K/mm3 (4.5-11.0); NUCLEATED RED BLOOD CELL 1440 %
[2016-11-29 07:46] LABS: ANISOCYTOSIS 3+; NEUTROPHIL 44 % (50.0-70.0); TARGET CELLS SLIGHT
[2016-11-29 07:48] LABS: PLATELET ESTIMATE LOW (NORMAL); POIKILOCYTOSIS SLIGHT; POLYCHROMASIA SLIGHT
[2016-11-29 07:51] LABS: BAND 13 % (0-2)
[2016-11-29 07:57] LABS: BILIRUBIN,TOTAL 25.3 mg/dL (0.2-1.3)
--- NOTE | 2016-11-29 08:20 | CP.PCM.PN ---
Subjective - Date & Time of Evaluation Date of Evaluation: 11/29/16 Time of Evaluation: 08:14 - Subjective Subjective: Surgery progress note for Dr. Chandra Patient seen and examined at bedside. Patient had no acute events overnight. ROS could not be obtained because patient is nonverbal. Objective - Vital Signs/Intake and Output Vital Signs (last 24 hours): Temp Pulse Resp BP Pulse Ox 97 F L 99 H 28 H 65/29 L 76 L 11/28/16 20:00 11/29/16 07:32 11/29/16 06:27 11/29/16 06:13 11/29/16 06:12 Intake and Output: 11/29/16 11/29/16 06:59 18:59 Intake Total 1096 Output Total 25 Balance 1071 - Medications Medications: Current Medications Albumin Human (Albumin Human 25% (12.5 Gm/50 Ml)) 12.5 gm IV Q6H [facility] Last Admin: 11/29/16 01:39 Dose: 12.5 gm Albuterol/Ipratropium (Duoneb 3 Mg/0.5 Mg (3 Ml) Ud) 3 ml IH [id number] [facility] Last Admin: 11/29/16 07:30 Dose: 3 ml Albuterol/Ipratropium (Duoneb 3 Mg/0.5 Mg (3 Ml) Ud) 3 ml IH [id number] PRN PRN Reason: SOB, congestion, desats Last Admin: 11/28/16 06:08 Dose: 3 ml Furosemide (Lasix) 40 mg IVP DAILY [facility] Last Admin: 11/17/16 09:00 Dose: 40 mg Heparin Sodium (Porcine) (Heparin) 5,000 units SC Q12 [facility] PRN Reason: Protocol Last Admin: 11/16/16 21:44 Dose: Not Given Hydrocortisone Sodium Succinate (Solu-Cortef) 50 mg IVP Q12H [facility] Last Admin: 11/29/16 01:39 Dose: 50 mg Metronidazole (Flagyl) 500 mg in 100 mls @ 100 mls/hr IVPB Q8 [facility] PRN Reason: Protocol Last Admin: 11/29/16 05:18 Dose: 100 mls/hr Vasopressin 20 units/ Dextrose 101 mls @ 9.09 mls/hr IV .Q11H7M [facility]; 0.03 U/MIN PRN Reason: Protocol Last Admin: 11/25/16 21:00 Dose: 9.09 mls/hr Multivitamins/Vitamin C 10 ml/Amino Acids/Electrolytes/Dextrose 2,010 mls @ 83 mls/hr IV .Q24H [facility] Stop: 11/29/16 17:59 Last Admin: 11/28/16 17:34 Dose: 83 mls/hr Fat Emulsion Intravenous (Intralipid 20%) 250 mls @ 21 mls/hr IV MWF@1800 [facility] Stop: 11/29/16 17:59 Last Admin: 11/27/16 21:11 Dose: 21 mls/hr Levetiracetam 750 mg/ Sodium (Chloride) 107.5 mls @ 460 mls/hr IV Q12 [facility] Last Admin: 11/28/16 22:03 Dose: 460 mls/hr Lactulose (Enulose) 20 gm PO Q3H [facility] Last Admin: 11/29/16 05:14 Dose: 20 gm Pantoprazole Sodium (Protonix Inj) 40 mg IVP Q12 [facility] Last Admin: 11/28/16 10:00 Dose: 40 mg Rifaximin (Xifaxan) 550 mg PO BID [facility] PRN Reason: Protocol Last Admin: 11/19/16 14:57 Dose: Not Given Rifaximin (Xifaxan) 550 mg PO BID [facility] PRN Reason: Protocol Last Admin: 11/28/16 17:59 Dose: 550 mg - Labs Labs: 11/29/16 05:30 11/29/16 05:30 PT 39.7 Seconds (9.9-11.8) H* 11/29/16 05:30 INR 3.68 (0.93-1.08) H* 11/29/16 05:30 APTT 140.3 Seconds (23.7-30.8) H* 11/29/16 05:30 - Constitutional Appears: Chronically Ill - Head Exam Head Exam: ATRAUMATIC, NORMOCEPHALIC - Eye Exam Eye Exam: Scleral icterus Pupil Exam: Mydriatic (right pupil ), Unequal - Respiratory Exam Additional comments: on BiPAP terminal respiratory secretions - Cardiovascular Exam Cardiovascular Exam: Tachycardia - GI/Abdominal Exam GI & Abdominal Exam: Distended, Firm Additional comments: edematous - Rectal Exam Rectal Exam: absent: Hemorrhoids, Fecal Impaction Additional comments: No rectal tone No ej blood - Extremities Exam Additional comments: edematous extremities - Neurological Exam Additional comments: non verbal limited responses does not follow commands - Skin Skin Exam: Dry, Intact, Warm Assessment and Plan - Assessment and Plan (Free Text) Assessment: 36 F with abdominal compartment syndrome, s/p IR tap POD #3, s/p permacath POD # 2 Plan: * No surgical intervention at this time - patient is a poor surgical candidate * f/u FOBT * Patient is DNR/DNI * Serial abdominal exams * Diaz was removed and bladder pressures cannot be assessed at this time * Further recs per Dr. Prateek Velez, PGY-1
--- NOTE | 2016-11-29 09:10 | CP.PCM.PRO ---
Pronouncement of Note - Clinical Findings Physical Exam: No Response Verbal/Painful Stimuli, Absent Peripheral Pulses{ Carotid & Femoral}, Absent Heart & Breath Sounds, No Pupillary Light Reflex, No Corneal Reflex, Pupils Fixed & Dilated, Absence of Vital Signs - Pronouncement Time Time of Pronouncement of : 09:09 - Notifications Pronouncement Notifications: Family Notified (Mother at bedside), Atending Notified Chocolate Maker Notified: No - Autopsy Autopsy Requested: No - [place] [id number]
[2016-11-29 09:26] VITALS: TEMP 98.3
[2016-11-29 09:34] VITALS: BP 81/33; PULSE 89; RESP 19; O2SAT 100
--- NOTE | 2016-11-29 12:10 | CP.PCM.DIS ---
<Landon Melchor - Last Filed: 11/29/16 14:43> Provider - Provider Date of Admission: 11/13/16 17:02 Attending physician: Jena Ruff MD Time Spent in preparation of Discharge (in minutes): 5 Hospital Course - Lab Results Lab Results: Micro Results 11/26/16 18:37 Ascitic Fluid Gram Stain - Final 11/26/16 18:37 Ascitic Fluid Anaerobic Culture - Final NO ANAEROBES ISOLATED. 11/26/16 18:37 Ascitic Fluid Body Fluid Culture - Preliminary NO GROWTH AFTER 24 HOURS 11/26/16 18:37 Abdominal Fluid Fungal Culture - Preliminary 11/24/16 15:00 Stool C. difficile Antigen & Toxin A,B (M - Final 11/19/16 15:44 Stool C. difficile Antigen & Toxin A,B (M - Final 11/14/16 18:06 Blood-Venous Blood Culture - Final NO GROWTH AFTER 5 DAYS 11/14/16 18:06 Blood-Venous Gram Stain - Final TEST NOT PERFORMED 11/14/16 16:47 Blood-Venous Blood Culture - Final NO GROWTH AFTER 5 DAYS 11/14/16 16:47 Blood-Venous Gram Stain - Final TEST NOT PERFORMED 11/15/16 21:20 Nose MRSA Culture (Admit) - Final MRSA NOT DETECTED 11/15/16 00:20 Urine,Catheterized Urine Culture - Final No Growth (<1,000 CFU/ML) Most Recent Lab Values WBC 54.8 10^3/ul (4.5-11.0) H* 11/29/16 05:30 RBC 2.20 10^6/uL (3.5-6.1) L 11/29/16 05:30 Hgb 7.0 g/dL (12.0-16.0) L 11/29/16 05:30 Hct 19.9 % (36.0-48.0) L* 11/29/16 05:30 MCV 90.5 fl (80.0-105.0) 11/29/16 05:30 MCH 31.8 pg (25.0-35.0) 11/29/16 05:30 MCHC 35.2 g/dl (31.0-37.0) 11/29/16 05:30 RDW 19.9 % (11.5-14.5) H 11/29/16 05:30 Plt Count 11 10^3/uL (120.0-450.0) L* 11/29/16 05:30 Manual Plt Count 18 K/mm3 (120-450) L* 11/22/16 07:24 MPV 9.8 fl (7.0-11.0) 11/27/16 05:50 Gran % TEST NOT PERFORMED 11/17/16 06:30 Lymph % (Auto) TEST NOT PERFORMED 11/17/16 06:30 [place] % (Auto) TEST NOT PERFORMED 11/17/16 06:30 Eos % (Auto) TEST NOT PERFORMED 11/17/16 06:30 Baso % (Auto) 2.0 % (0.0-3.0) 11/29/16 05:30 Gran # TEST NOT PERFORMED 11/17/16 06:30 Lymph # TEST NOT PERFORMED 11/17/16 06:30 [place] # TEST NOT PERFORMED 11/17/16 06:30 Eos # TEST NOT PERFORMED 11/17/16 06:30 Baso # 1.10 K/mm3 (0.0-2.0) 11/29/16 05:30 Corrected WBC (Man) 3.6 K/mm3 (4.5-11.0) L 11/29/16 05:30 Neutrophils % (Manual) 44 % (50.0-70.0) L 11/29/16 05:30 Band Neutrophils % 13 % (0-2) H* 11/29/16 05:30 Lymphocytes % (Manual) 10 % (22.0-35.0) L 11/29/16 05:30 Atypical Lymphs % 4 % (0.0-0.0) H 11/28/16 06:00 Monocytes % (Manual) 13 % (1.0-6.0) H 11/29/16 05:30 Eosinophils % (Manual) 2 % (0.0-3.0) 11/29/16 05:30 Basophils % (Manual) 0 % (0.0-1.0) 11/22/16 06:10 Metamyelocytes % 8 % 11/29/16 05:30 Myelocytes % 10 % 11/29/16 05:30 Promyelocytes % 1 % 11/15/16 07:03 Nucleated RBC % 1440 % 11/29/16 05:30 Smudge Cells Present 11/28/16 06:00 Platelet Evaluation Low (NORMAL) 11/29/16 05:30 Large Platelets Present 11/23/16 05:10 Polychromasia Slight 11/29/16 05:30 Hypochromasia 2+ 11/28/16 06:00 Poikilocytosis (manual Slight 11/29/16 05:30 Basophilic Stippling 2+ 11/11/16 21:20 Anisocytosis (manual) 3+ 11/29/16 05:30 Microcytosis (manual) 1+ 11/21/16 06:00 Macrocytosis (manual) Slight 11/17/16 16:00 Spherocytes Slight 11/28/16 06:00 Sickle Cells Slight 11/29/16 05:30 Target Cells Slight 11/29/16 05:30 Tear Drop Cells Slight 11/28/16 06:00 Ovalocytes Slight 11/25/16 05:20 Stomatocytes Slight 11/17/16 16:00 [place] Cells Slight 11/28/16 06:00 Acanthocytes (Spur) 1+ 11/21/16 06:00 Schistocytes Slight 11/28/16 06:00 Retic Count 10.88 % (0.5-1.5) H* 11/26/16 05:25 Hemoglobin A 96.7 Percent (>96.0) 11/20/16 17:40 Hemoglobin A2 2.3 Percent (1.8-3.5) 11/20/16 17:40 Hemoglobin C 0.0 Percent (0.0-0.0) 11/20/16 17:40 Hemoglobin F () <1.0 Percent (<2.0) 11/20/16 17:40 Hemoglobin S 1.0 Percent (0.0-0.0) H 11/20/16 17:40 Variant Hemoglobin 0.0 Percent (0.0-0.0) 11/20/16 17:40 Hemoglobinopathy Red Blood Count 3.11 Mill/mcL (3.80-5.10) L 11/20/16 17:40 Hemoglobinopathy Hct 27.2 % (35.0-45.0) L 11/20/16 17:40 Hemoglobinopathy Hgb 9.5 g/dL (11.7-15.5) L 11/20/16 17:40 Hemoglobinopathy MCV 87.4 fL (80.0-100.0) 11/20/16 17:40 Hemoglobinopathy MCH 30.7 pg (27.0-33.0) 11/20/16 17:40 Hemoglobinopathy RDW 15.2 % (11.0-15.0) H 11/20/16 17:40 Hemoglobinopathy Interp See note 11/20/16 17:40 PT 39.7 Seconds (9.9-11.8) H* 11/29/16 05:30 INR 3.68 (0.93-1.08) H* 11/29/16 05:30 APTT 140.3 Seconds (23.7-30.8) H* 11/29/16 05:30 Fibrinogen 132.6 mg/dL (187-400) L 11/27/16 05:50 Factor II Activity 28 % (70-150) L 11/14/16 16:47 Factor V Activity 11 % (65-150) L 11/14/16 16:47 Factor VIII Activity 404 % (50-180) H 11/14/16 16:47 pCO2 31 mm/Hg (35-45) L 11/27/16 22:55 pO2 66.0 mm/Hg (80-100) L 11/27/16 22:55 HCO3 21.1 mmol/L (21-28) 11/27/16 22:55 ABG pH 7.44 (7.35-7.45) 11/27/16 22:55 ABG Total CO2 22.1 mmol.L (22-28) 11/27/16 22:55 ABG O2 Saturation 99.5 % (95-98) H 11/27/16 22:55 ABG O2 Content 11.2 ML/dl (15-23) L 11/27/16 22:55 ABG Base Excess -2.6 mmol/L (-2.0-3.0) L 11/27/16 22:55 ABG Hemoglobin 8.5 g/dL (11.7-17.4) L 11/27/16 22:55 ABG Carboxyhemoglobin 3.9 % (0.5-1.5) H 11/27/16 22:55 POC ABG HHb (Measured) 0.5 % (0-5) 11/27/16 22:55 ABG Methemoglobin 2.3 % (0.0-3.0) 11/27/16 22:55 ABG O2 Capacity 11.3 mL/dl (16-24) L 11/27/16 22:55 ABG Potassium 3.6 mmol/L (3.6-5.2) 11/25/16 06:08 VBG pH 7.39 (7.32-7.43) 11/25/16 13:22 VBG pCO2 44.0 (40-60) 11/25/16 13:22 VBG HCO3 26.6 mmol/l (21-28) 11/25/16 13:22 VBG Total CO2 28.0 mmol.L (22-28) 11/25/16 13:22 VBG O2 Sat (Calc) 84.5 % (40-65) H 11/25/16 13:22 VBG Base Excess 1.2 mmol/L (0.0-2.0) 11/25/16 13:22 VBG Potassium 3.7 mmol/L (3.6-5.2) 11/25/16 13:22 Hgb O2 Saturation 93.4 % (95.0-98.0) L 11/27/16 22:55 Sodium 133.0 mmol/L (132-148) 11/25/16 13:22 Chloride 100.0 mmol/L (98-107) 11/25/16 13:22 Glucose 119 mg/dl (65-105) H 11/25/16 13:22 Lactate 1.9 mmol/L (0.7-2.1) 11/25/16 13:22 Mechanical Rate 15 11/20/16 07:50 FiO2 36.0 % 11/27/16 22:55 Tidal Volume 400 11/20/16 07:50 PEEP 5 11/20/16 07:50 Sodium 134 mmol/L (132-148) 11/29/16 05:30 Potassium 4.1 mmol/L (3.6-5.0) 11/29/16 05:30 Chloride 97 mmol/L (95-110) 11/29/16 05:30 Carbon Dioxide 20 mmol/L (21-33) L 11/29/16 05:30 Anion Gap 21 (10-20) H 11/29/16 05:30 BUN 33 mg/dL (7-21) H 11/29/16 05:30 Creatinine 1.9 mg/dL (0.7-1.2) H 11/29/16 05:30 Est GFR ( Amer) 36 11/29/16 05:30 Est GFR (Non-Af Amer) 30 11/29/16 05:30 POC Glucose (mg/dL) 130 mg/dL (65-110) H 11/29/16 07:52 Random Glucose 105 mg/dL (70-110) 11/29/16 05:30 Lactic Acid 3.8 mmol/L (0.7-2.1) H 11/15/16 09:46 Calcium 8.5 mg/dL (8.4-10.5) 11/29/16 05:30 Phosphorus 3.1 mg/dL (2.5-4.5) 11/29/16 05:30 Magnesium 1.8 mg/dL (1.7-2.2) 11/29/16 05:30 Iron 410 ug/dL (45-180) H 11/14/16 14:24 TIBC 160 ug/dL (265-497) L 11/14/16 14:24 % Saturation 257 % (20-55) H 11/14/16 14:24 Ferritin > 54717.0 ng/mL 11/14/16 14:24 Total Bilirubin 25.3 mg/dL (0.2-1.3) H* 11/29/16 05:30 Direct Bilirubin 18.7 mg/dL (0.0-0.4) H 11/23/16 05:10 AST 167 U/L (14-36) H 11/29/16 05:30 ALT 46 U/L (7-56) 11/29/16 05:30 Alkaline Phosphatase 177 U/L (38-126) H D 11/29/16 05:30 Ammonia 23 umol/L (9-33) 11/18/16 11:34 Lactate Dehydrogenase 3656 U/L (333-699) H 11/15/16 09:45 Total Creatine Kinase 165 U/L (35-230) 11/20/16 20:31 Troponin I 0.10 ng/mL D 11/15/16 09:45 NT-Pro-B Natriuret Pep 92598 pg/mL (0-450) H 11/15/16 07:00 Total Protein 5.6 g/dL (5.8-8.3) L 11/29/16 05:30 Albumin 2.9 g/dL (3.0-4.8) L 11/29/16 05:30 Globulin 2.7 gm/dL 11/29/16 05:30 Albumin/Globulin Ratio 1.1 (1.1-1.8) 11/29/16 05:30 Ceruloplasmin 44 mg/dL (18-53) 11/14/16 16:47 Lipase 188 U/L (23-300) 11/11/16 21:20 Alpha Fetoprotein < 0.8 ng/mL (0.0-7.5) 11/15/16 07:32 UF Heparin Interp Negative (Negative) 11/21/16 06:00 Procalcitonin 3.42 NG/ML (0.19-0.49) H 11/18/16 11:34 Beta HCG, Quant < 2.39 mIU/mL (0-6.15) 11/14/16 14:24 Arterial Blood Potassium 3.6 mmol/L (3.6-5.2) 11/25/16 06:08 Venous Blood Potassium 3.7 mmol/L (3.6-5.2) 11/25/16 13:22 Urine Color Brown (YELLOW) 11/15/16 19:26 Urine Appearance Cloudy (CLEAR) 11/15/16 19:26 Urine pH 6.5 (4.7-8.0) 11/15/16 19:26 Ur Specific [place] 1.020 (1.005-1.035) 11/15/16 19:26 Urine Protein 100 mg/dL (<30 mg/dL) H 11/15/16 19:26 Urine Glucose (UA) 250 mg/dL (NEGATIVE) H 11/15/16 19:26 Urine Ketones Trace mg/dL (NEGATIVE) H 11/15/16 19:26 Urine Blood Large (NEGATIVE) H 11/15/16 19:26 Urine Nitrate Positive (NEGATIVE) H 11/15/16 19:26 Urine Bilirubin Large (NEGATIVE) H 11/15/16 19:26 Urine Urobilinogen 4.0 E.U./dL (<1 E.U./dL) H 11/15/16 19:26 Ur Leukocyte Esterase Trace [place]/uL (NEGATIVE) H 11/15/16 19:26 Urine RBC 10 - 15 /hpf (0-2) 11/15/16 19:26 Urine WBC 2 - 5 /hpf (0-6) 11/15/16 19:26 Ur Epithelial Cells 3 - 4 /hpf (0-5) 11/15/16 19:26 Amorphous Sediment Small 11/15/16 00:20 Urine Bacteria Mod (NEG) 11/15/16 19:26 Urine Osmolality 322 mosm/kg (50-645) 11/15/16 00:20 Ur Random Creatinine 70 mg/dL 11/15/16 19:26 U Random Total Protein Cancelled 11/15/16 00:20 Ur Random Sodium 83 meq/L 11/15/16 19:26 Ur Random Potassium 66.7 meq/L 11/15/16 00:20 Ur Random Urea Nitrogn 146 mg/dL 11/15/16 19:26 Fluid Source Peritoneal/ascites 11/26/16 18:37 Fluid Appearance Sl cloudy (CLEAR) 11/26/16 18:37 Fluid WBC 2714.0 /uL (0.0-300.0) H 11/26/16 18:37 Fluid RBC 1188.0 /uL (0.0-0.0) H 11/26/16 18:37 Fluid Tot Cell Count 100 (0-0) H 11/26/16 18:37 Fluid Neutrophils 85.3 % (0-0) H 11/26/16 18:37 Fluid Lymphocytes 14.7 % (0-0) H 11/26/16 18:37 Fld Monocyte/Macrophag TEST NOT PERFORMED 11/26/16 18:37 Fluid Albumin 0.4 g/dL 11/26/16 18:37 Fluid Comment Yellow color 11/26/16 18:37 Stool Occult Blood Positive (NEGATIVE) H 11/19/16 15:44 Vancomycin Trough 21.9 ug/mL (5.0-10.0) H* 11/21/16 09:54 Random Vancomycin 19.8 ug/mL (20.0-40.0) L 11/17/16 21:45 Salicylates < 1 mg/dL (2.0-20.0) L 11/14/16 14:24 Urine Opiates Screen Positive (NEGATIVE) H 11/15/16 00:20 Urine Methadone Screen Negative (NEGATIVE) 11/15/16 00:20 Acetaminophen < 10.0 ug/ml (10.0-20.0) L 11/14/16 14:24 Ur Barbiturates Screen Negative (NEGATIVE) 11/15/16 00:20 Ur Phencyclidine Scrn Negative (NEGATIVE) 11/15/16 00:20 Ur Amphetamines Screen Negative (NEGATIVE) 11/15/16 00:20 U Benzodiazepines Scrn Negative (NEGATIVE) 11/15/16 00:20 U Oth Cocaine Metabols Negative (NEGATIVE) 11/15/16 00:20 U Cannabinoids Screen Negative (NEGATIVE) 11/15/16 00:20 Heparin-induced Plt Ab TNP 11/21/16 06:00 IFTIKHAR UFH Low Dose 0.1 0 % Release 11/21/16 06:00 IFTIKHAR UFH Low Dose 0.5 0 % Release 11/21/16 06:00 IFTIKHAR UFH High Dose 100 0 % Release 11/21/16 06:00 Hepatitis A IgM Ab Negative (NEGATIVE) 11/15/16 19:50 Hep Bs Antigen Negative (NEGATIVE) 11/15/16 19:50 Hep B Core IgM Ab Negative (NEGATIVE) 11/15/16 19:50 Hepatitis C Antibody Negative (NEGATIVE) 11/15/16 19:50 Influenza Typ A,B (EIA) Negative for flu a/b (NEGATIVE) 11/20/16 08:28 Influenza Type A Ab 1:32 titer (<1:8) H 11/20/16 08:28 Influenza Type B Ab 1:16 titer (<1:8) H 11/20/16 08:28 Ur L.pneumophila Ag Negative (NEGATIVE) 11/20/16 07:37 Ur Strep pneumoniae Ag Not detected 11/20/16 08:28 Hemochromatos Mutation see note 11/14/16 16:47 Blood Type B POSITIVE 11/26/16 11:42 Antibody Screen Negative 11/26/16 11:42 Crossmatch See Detail 11/26/16 11:42 BBK History Checked Patient has bt 11/26/16 11:42 - Hospital Course Hospital Course: 36 year old AA female with past medical history of sickle cell disease, Bipolar disorder, cerebral palsy, Asthma, and CHF presents to the emergency department complaining of abdominal pain located in the RUQ. She states the pain started today, and describes it as a constant pain. She also states she has been vomiting up bile and has been nauseous. In addition, she says she has had diarrhea today several times with the stool being looser than normal but not completely water like. Her last meal was 5 hours ago and she ate hamburger helper. She denies CP, SOB, numbness/tingling, fever, chills, dysuria or hematuria. While admitted the patient was seen by Gastroenterology, Hematology , Nephrology, Cardiology, Psychiatry and Hospice care. Patient retic count after being admitted was 18.37 however the patient was showing clinical signs of improvement and was expected to be discharged pending tolerating oral diet and if blood pressure improved. The blood pressure didn't improve and she was given 1 liter of Fluid at 250 ml/hr. The patient sugars dropped into the low 20's and she was given D50. Patient was showing sings of of volume overload and strict i's and o's, and weight check was started. Lab work showed an elevated BNP, MELITON and shock liver and it was determined she should move to ICU. While in the ICU it was determined she should be put on liver transplant list and the necessary work began to get approved at [facility] or [facility] for liver transplant. Overnight the patient began to desat and she was intubated and put on pressors for blood pressure control. Hospital course was complicated with acute liver failure, oligouric renal failure and intubation for respiratory distress .s/p intubation, shock on vasopressor .Patient is SP Plasmapheresis, UF and red cell exchange . Total Units of PRBC transfused: 19 Total FFP given: 9 Irrad/Leuk Red Pheresis Plts:4 Leuk Red Pheresis Plts: 2 Patient was extubated , her mental status was very poor, so far able to maintain air way.MRI of brain was negative for any acute infarct or any bleeding. Hospital course was further complicated with respiratory complications and she was put on BIPAP. The patient had serial chest xrays while admitted. The patient also had a brain MRI that showed small bilateral subdural fluid collections and severe atrophy in the parietal lobes. The patient also had a cath done were she had a IJ catether for placement. The patients abdomen became tense. The patient was seen by the surgery team for possible abdominal decompression surgery due to abdominal pressures elevation. The patient was then seen by Interventional radialogy and a paracentesis was done and they removed 2 liters of fluid. Patient showed signs of MODS including hepatic failure (2/2 hemochromatosis from multiple transfusions vs vaso-occlusive crisis). Attempts were at liver transplant failed when [facility] and [facility] deemed her not a candidate for surgery. The patient had an enlarged pupil on the right in comparison to the left and she had a stat head Ct done that showed no acute processes. The patient also had a lower extremity u/s done that was negative for dvt's. The patient also had an abdomen xray that showed no signs of acute bowel obstruction. The patient was made DNR/DNI by the family and earlier this morning the patient . Discharge Exam - Head Exam Head Exam: ATRAUMATIC, NORMOCEPHALIC Discharge Plan - Follow Up Plan Condition: FAIR Disposition: WITH WITHOUT AUTOPSY <Jena Ruff - Last Filed: 11/30/16 11:53> Provider - Provider Date of Admission: 11/13/16 17:02 Attending physician: Jena Ruff MD Hospital Course - Lab Results Lab Results: Micro Results 11/26/16 18:37 Ascitic Fluid Gram Stain - Final 11/26/16 18:37 Ascitic Fluid Anaerobic Culture - Final NO ANAEROBES ISOLATED. 11/26/16 18:37 Ascitic Fluid Body Fluid Culture - Final [place] 11/26/16 18:37 Abdominal Fluid Fungal Culture - Preliminary 11/24/16 15:00 Stool C. difficile Antigen & Toxin A,B (M - Final 11/19/16 15:44 Stool C. difficile Antigen & Toxin A,B (M - Final 11/14/16 18:06 Blood-Venous Blood Culture - Final NO GROWTH AFTER 5 DAYS 11/14/16 18:06 Blood-Venous Gram Stain - Final TEST NOT PERFORMED 11/14/16 16:47 Blood-Venous Blood Culture - Final NO GROWTH AFTER 5 DAYS 11/14/16 16:47 Blood-Venous Gram Stain - Final TEST NOT PERFORMED 11/15/16 21:20 Nose MRSA Culture (Admit) - Final MRSA NOT DETECTED 11/15/16 00:20 Urine,Catheterized Urine Culture - Final No Growth (<1,000 CFU/ML) Most Recent Lab Values WBC 54.8 10^3/ul (4.5-11.0) H* 11/29/16 05:30 RBC 2.20 10^6/uL (3.5-6.1) L 11/29/16 05:30 Hgb 7.0 g/dL (12.0-16.0) L 11/29/16 05:30 Hct 19.9 % (36.0-48.0) L* 11/29/16 05:30 MCV 90.5 fl (80.0-105.0) 11/29/16 05:30 MCH 31.8 pg (25.0-35.0) 11/29/16 05:30 MCHC 35.2 g/dl (31.0-37.0) 11/29/16 05:30 RDW 19.9 % (11.5-14.5) H 11/29/16 05:30 Plt Count 11 10^3/uL (120.0-450.0) L* 11/29/16 05:30 Manual Plt Count 18 K/mm3 (120-450) L* 11/22/16 07:24 MPV 9.8 fl (7.0-11.0) 11/27/16 05:50 Gran % TEST NOT PERFORMED 11/17/16 06:30 Lymph % (Auto) TEST NOT PERFORMED 11/17/16 06:30 [place] % (Auto) TEST NOT PERFORMED 11/17/16 06:30 Eos % (Auto) TEST NOT PERFORMED 11/17/16 06:30 Baso % (Auto) 2.0 % (0.0-3.0) 11/29/16 05:30 Gran # TEST NOT PERFORMED 11/17/16 06:30 Lymph # TEST NOT PERFORMED 11/17/16 06:30 [place] # TEST NOT PERFORMED 11/17/16 06:30 Eos # TEST NOT PERFORMED 11/17/16 06:30 Baso # 1.10 K/mm3 (0.0-2.0) 11/29/16 05:30 Corrected WBC (Man) 3.6 K/mm3 (4.5-11.0) L 11/29/16 05:30 Neutrophils % (Manual) 44 % (50.0-70.0) L 11/29/16 05:30 Band Neutrophils % 13 % (0-2) H* 11/29/16 05:30 Lymphocytes % (Manual) 10 % (22.0-35.0) L 11/29/16 05:30 Atypical Lymphs % 4 % (0.0-0.0) H 11/28/16 06:00 Monocytes % (Manual) 13 % (1.0-6.0) H 11/29/16 05:30 Eosinophils % (Manual) 2 % (0.0-3.0) 11/29/16 05:30 Basophils % (Manual) 0 % (0.0-1.0) 11/22/16 06:10 Metamyelocytes % 8 % 11/29/16 05:30 Myelocytes % 10 % 11/29/16 05:30 Promyelocytes % 1 % 11/15/16 07:03 Nucleated RBC % 1440 % 11/29/16 05:30 Smudge Cells Present 11/28/16 06:00 Platelet Evaluation Low (NORMAL) 11/29/16 05:30 Large Platelets Present 11/23/16 05:10 Polychromasia Slight 11/29/16 05:30 Hypochromasia 2+ 11/28/16 06:00 Poikilocytosis (manual Slight 11/29/16 05:30 Basophilic Stippling 2+ 11/11/16 21:20 Anisocytosis (manual) 3+ 11/29/16 05:30 Microcytosis (manual) 1+ 11/21/16 06:00 Macrocytosis (manual) Slight 11/17/16 16:00 Spherocytes Slight 11/28/16 06:00 Sickle Cells Slight 11/29/16 05:30 Target Cells Slight 11/29/16 05:30 Tear Drop Cells Slight 11/28/16 06:00 Ovalocytes Slight 11/25/16 05:20 Stomatocytes Slight 11/17/16 16:00 [place] Cells Slight 11/28/16 06:00 Acanthocytes (Spur) 1+ 11/21/16 06:00 Schistocytes Slight 11/28/16 06:00 Retic Count 10.88 % (0.5-1.5) H* 11/26/16 05:25 Hemoglobin A 96.7 Percent (>96.0) 11/20/16 17:40 Hemoglobin A2 2.3 Percent (1.8-3.5) 11/20/16 17:40 Hemoglobin C 0.0 Percent (0.0-0.0) 11/20/16 17:40 Hemoglobin F () <1.0 Percent (<2.0) 11/20/16 17:40 Hemoglobin S 1.0 Percent (0.0-0.0) H 11/20/16 17:40 Variant Hemoglobin 0.0 Percent (0.0-0.0) 11/20/16 17:40 Hemoglobinopathy Red Blood Count 3.11 Mill/mcL (3.80-5.10) L 11/20/16 17:40 Hemoglobinopathy Hct 27.2 % (35.0-45.0) L 11/20/16 17:40 Hemoglobinopathy Hgb 9.5 g/dL (11.7-15.5) L 11/20/16 17:40 Hemoglobinopathy MCV 87.4 fL (80.0-100.0) 11/20/16 17:40 Hemoglobinopathy MCH 30.7 pg (27.0-33.0) 11/20/16 17:40 Hemoglobinopathy RDW 15.2 % (11.0-15.0) H 11/20/16 17:40 Hemoglobinopathy Interp See note 11/20/16 17:40 PT 39.7 Seconds (9.9-11.8) H* 11/29/16 05:30 INR 3.68 (0.93-1.08) H* 11/29/16 05:30 APTT 140.3 Seconds (23.7-30.8) H* 11/29/16 05:30 Fibrinogen 132.6 mg/dL (187-400) L 11/27/16 05:50 Factor II Activity 28 % (70-150) L 11/14/16 16:47 Factor V Activity 11 % (65-150) L 11/14/16 16:47 Factor VIII Activity 404 % (50-180) H 11/14/16 16:47 pCO2 31 mm/Hg (35-45) L 11/27/16 22:55 pO2 66.0 mm/Hg (80-100) L 11/27/16 22:55 HCO3 21.1 mmol/L (21-28) 11/27/16 22:55 ABG pH 7.44 (7.35-7.45) 11/27/16 22:55 ABG Total CO2 22.1 mmol.L (22-28) 11/27/16 22:55 ABG O2 Saturation 99.5 % (95-98) H 11/27/16 22:55 ABG O2 Content 11.2 ML/dl (15-23) L 11/27/16 22:55 ABG Base Excess -2.6 mmol/L (-2.0-3.0) L 11/27/16 22:55 ABG Hemoglobin 8.5 g/dL (11.7-17.4) L 11/27/16 22:55 ABG Carboxyhemoglobin 3.9 % (0.5-1.5) H 11/27/16 22:55 POC ABG HHb (Measured) 0.5 % (0-5) 11/27/16 22:55 ABG Methemoglobin 2.3 % (0.0-3.0) 11/27/16 22:55 ABG O2 Capacity 11.3 mL/dl (16-24) L 11/27/16 22:55 ABG Potassium 3.6 mmol/L (3.6-5.2) 11/25/16 06:08 VBG pH 7.39 (7.32-7.43) 11/25/16 13:22 VBG pCO2 44.0 (40-60) 11/25/16 13:22 VBG HCO3 26.6 mmol/l (21-28) 11/25/16 13:22 VBG Total CO2 28.0 mmol.L (22-28) 11/25/16 13:22 VBG O2 Sat (Calc) 84.5 % (40-65) H 11/25/16 13:22 VBG Base Excess 1.2 mmol/L (0.0-2.0) 11/25/16 13:22 VBG Potassium 3.7 mmol/L (3.6-5.2) 11/25/16 13:22 Hgb O2 Saturation 93.4 % (95.0-98.0) L 11/27/16 22:55 Sodium 133.0 mmol/L (132-148) 11/25/16 13:22 Chloride 100.0 mmol/L (98-107) 11/25/16 13:22 Glucose 119 mg/dl (65-105) H 11/25/16 13:22 Lactate 1.9 mmol/L (0.7-2.1) 11/25/16 13:22 Mechanical Rate 15 11/20/16 07:50 FiO2 36.0 % 11/27/16 22:55 Tidal Volume 400 11/20/16 07:50 PEEP 5 11/20/16 07:50 Sodium 134 mmol/L (132-148) 11/29/16 05:30 Potassium 4.1 mmol/L (3.6-5.0) 11/29/16 05:30 Chloride 97 mmol/L (95-110) 11/29/16 05:30 Carbon Dioxide 20 mmol/L (21-33) L 11/29/16 05:30 Anion Gap 21 (10-20) H 11/29/16 05:30 BUN 33 mg/dL (7-21) H 11/29/16 05:30 Creatinine 1.9 mg/dL (0.7-1.2) H 11/29/16 05:30 Est GFR ( Amer) 36 11/29/16 05:30 Est GFR (Non-Af Amer) 30 11/29/16 05:30 POC Glucose (mg/dL) 130 mg/dL (65-110) H 11/29/16 07:52 Random Glucose 105 mg/dL (70-110) 11/29/16 05:30 Lactic Acid 3.8 mmol/L (0.7-2.1) H 11/15/16 09:46 Calcium 8.5 mg/dL (8.4-10.5) 11/29/16 05:30 Phosphorus 3.1 mg/dL (2.5-4.5) 11/29/16 05:30 Magnesium 1.8 mg/dL (1.7-2.2) 11/29/16 05:30 Iron 410 ug/dL (45-180) H 11/14/16 14:24 TIBC 160 ug/dL (265-497) L 11/14/16 14:24 % Saturation 257 % (20-55) H 11/14/16 14:24 Ferritin > 34813.0 ng/mL 11/14/16 14:24 Total Bilirubin 25.3 mg/dL (0.2-1.3) H* 11/29/16 05:30 Direct Bilirubin 18.7 mg/dL (0.0-0.4) H 11/23/16 05:10 AST 167 U/L (14-36) H 11/29/16 05:30 ALT 46 U/L (7-56) 11/29/16 05:30 Alkaline Phosphatase 177 U/L (38-126) H D 11/29/16 05:30 Ammonia 23 umol/L (9-33) 11/18/16 11:34 Lactate Dehydrogenase 3656 U/L (333-699) H 11/15/16 09:45 Total Creatine Kinase 165 U/L (35-230) 11/20/16 20:31 Troponin I 0.10 ng/mL D 11/15/16 09:45 NT-Pro-B Natriuret Pep 23672 pg/mL (0-450) H 11/15/16 07:00 Total Protein 5.6 g/dL (5.8-8.3) L 11/29/16 05:30 Albumin 2.9 g/dL (3.0-4.8) L 11/29/16 05:30 Globulin 2.7 gm/dL 11/29/16 05:30 Albumin/Globulin Ratio 1.1 (1.1-1.8) 11/29/16 05:30 Ceruloplasmin 44 mg/dL (18-53) 11/14/16 16:47 Lipase 188 U/L (23-300) 11/11/16 21:20 Alpha Fetoprotein < 0.8 ng/mL (0.0-7.5) 11/15/16 07:32 UF Heparin Interp Negative (Negative) 11/21/16 06:00 Procalcitonin 3.42 NG/ML (0.19-0.49) H 11/18/16 11:34 Beta HCG, Quant < 2.39 mIU/mL (0-6.15) 11/14/16 14:24 Arterial Blood Potassium 3.6 mmol/L (3.6-5.2) 11/25/16 06:08 Venous Blood Potassium 3.7 mmol/L (3.6-5.2) 11/25/16 13:22 Urine Color Brown (YELLOW) 11/15/16 19:26 Urine Appearance Cloudy (CLEAR) 11/15/16 19:26 Urine pH 6.5 (4.7-8.0) 11/15/16 19:26 Ur Specific Dewey 1.020 (1.005-1.035) 11/15/16 19:26 Urine Protein 100 mg/dL (<30 mg/dL) H 11/15/16 19:26 Urine Glucose (UA) 250 mg/dL (NEGATIVE) H 11/15/16 19:26 Urine Ketones Trace mg/dL (NEGATIVE) H 11/15/16 19:26 Urine Blood Large (NEGATIVE) H 11/15/16 19:26 Urine Nitrate Positive (NEGATIVE) H 11/15/16 19:26 Urine Bilirubin Large (NEGATIVE) H 11/15/16 19:26 Urine Urobilinogen 4.0 E.U./dL (<1 E.U./dL) H 11/15/16 19:26 Ur Leukocyte Esterase Trace Luz/uL (NEGATIVE) H 11/15/16 19:26 Urine RBC 10 - 15 /hpf (0-2) 11/15/16 19:26 Urine WBC 2 - 5 /hpf (0-6) 11/15/16 19:26 Ur Epithelial Cells 3 - 4 /hpf (0-5) 11/15/16 19:26 Amorphous Sediment Small 11/15/16 00:20 Urine Bacteria Mod (NEG) 11/15/16 19:26 Urine Osmolality 322 mosm/kg (50-645) 11/15/16 00:20 Ur Random Creatinine 70 mg/dL 11/15/16 19:26 U Random Total Protein Cancelled 11/15/16 00:20 Ur Random Sodium 83 meq/L 11/15/16 19:26 Ur Random Potassium 66.7 meq/L 11/15/16 00:20 Ur Random Urea Nitrogn 146 mg/dL 11/15/16 19:26 Fluid Source Peritoneal/ascites 11/26/16 18:37 Fluid Appearance Sl cloudy (CLEAR) 11/26/16 18:37 Fluid WBC 2714.0 /uL (0.0-300.0) H 11/26/16 18:37 Fluid RBC 1188.0 /uL (0.0-0.0) H 11/26/16 18:37 Fluid Tot Cell Count 100 (0-0) H 11/26/16 18:37 Fluid Neutrophils 85.3 % (0-0) H 11/26/16 18:37 Fluid Lymphocytes 14.7 % (0-0) H 11/26/16 18:37 Fld Monocyte/Macrophag TEST NOT PERFORMED 11/26/16 18:37 Fluid Albumin 0.4 g/dL 11/26/16 18:37 Fluid Comment Yellow color 11/26/16 18:37 Peritoneal Lipase 11.0 (h) u/l 11/26/16 18:37 Stool Occult Blood Positive (NEGATIVE) H 11/29/16 12:33 Vancomycin Trough 21.9 ug/mL (5.0-10.0) H* 11/21/16 09:54 Random Vancomycin 19.8 ug/mL (20.0-40.0) L 11/17/16 21:45 Salicylates < 1 mg/dL (2.0-20.0) L 11/14/16 14:24 Urine Opiates Screen Positive (NEGATIVE) H 11/15/16 00:20 Urine Methadone Screen Negative (NEGATIVE) 11/15/16 00:20 Acetaminophen < 10.0 ug/ml (10.0-20.0) L 11/14/16 14:24 Ur Barbiturates Screen Negative (NEGATIVE) 11/15/16 00:20 Ur Phencyclidine Scrn Negative (NEGATIVE) 11/15/16 00:20 Ur Amphetamines Screen Negative (NEGATIVE) 11/15/16 00:20 U Benzodiazepines Scrn Negative (NEGATIVE) 11/15/16 00:20 U Oth Cocaine Metabols Negative (NEGATIVE) 11/15/16 00:20 U Cannabinoids Screen Negative (NEGATIVE) 11/15/16 00:20 Heparin-induced Plt Ab TNP 11/21/16 06:00 IFTIKHAR UFH Low Dose 0.1 0 % Release 11/21/16 06:00 IFTIKHAR UFH Low Dose 0.5 0 % Release 11/21/16 06:00 IFTIKHAR UFH High Dose 100 0 % Release 11/21/16 06:00 Hepatitis A IgM Ab Negative (NEGATIVE) 11/15/16 19:50 Hep Bs Antigen Negative (NEGATIVE) 11/15/16 19:50 Hep B Core IgM Ab Negative (NEGATIVE) 11/15/16 19:50 Hepatitis C Antibody Negative (NEGATIVE) 11/15/16 19:50 Influenza Typ A,B (EIA) Negative for flu a/b (NEGATIVE) 11/20/16 08:28 Influenza Type A Ab 1:32 titer (<1:8) H 11/20/16 08:28 Influenza Type B Ab 1:16 titer (<1:8) H 11/20/16 08:28 Ur L.pneumophila Ag Negative (NEGATIVE) 11/20/16 07:37 Ur Strep pneumoniae Ag Not detected 11/20/16 08:28 Hemochromatos Mutation see note 11/14/16 16:47 Blood Type B POSITIVE 11/26/16 11:42 Antibody Screen Negative 11/26/16 11:42 Crossmatch See Detail 11/26/16 11:42 BBK History Checked Patient has bt 11/26/16 11:42 Attending/Attestation - Attestation I have personally seen and examined this patient.: Yes I have fully participated in the care of the patient.: Yes I have reviewed all pertinent clinical information, including history, physical exam and plan: Yes Notes (Text): 11/30/16 11:48 36 year old female with PMH of sickle cell disease/anemia, bipolar disorder, CHF and asthma was admitted with sickle cell crisis. Hospital course was complicated with acute liver failure, oligouric renal failure and intubation for respiratory distress .s/p intubation, shock on vasopressor .Patient HAD Plasmapheresis, UF and red cell exchange .Patient was extubated , but her mental status was very poor, so far able to maintain air way.MRI of brain was negative for any acute infarct or any bleeding. Patient condition did not improve, patient was made DNR/DNI by her mother after family meeting. This morning patient was found to be pulse less , there was no respiration. no code was called as patient was DNR/DNI. 11/30/16 11:52
--- NOTE | 2016-11-29 13:20 | CP.PCM.PN ---
Subjective - Date & Time of Evaluation Date of Evaluation: 11/27/16 Time of Evaluation: 11:00 - Subjective Subjective: Tracks with eyes but nonverbal Objective - Vital Signs/Intake and Output Vital Signs (last 24 hours): Temp Pulse Resp BP Pulse Ox 98.3 F 89 19 81/33 L 100 11/29/16 08:00 11/29/16 09:02 11/29/16 09:07 11/29/16 08:02 11/29/16 08:02 Intake and Output: 11/29/16 11/29/16 06:59 18:59 Intake Total 1096 Output Total 25 Balance 1071 - Medications Medications: Current Medications Albumin Human (Albumin Human 25% (12.5 Gm/50 Ml)) 12.5 gm IV Q6H [facility] Last Admin: 11/29/16 08:24 Dose: 12.5 gm Albuterol/Ipratropium (Duoneb 3 Mg/0.5 Mg (3 Ml) Ud) 3 ml IH [id number] [facility]E Last Admin: 11/29/16 07:30 Dose: 3 ml Albuterol/Ipratropium (Duoneb 3 Mg/0.5 Mg (3 Ml) Ud) 3 ml IH [id number] PRN PRN Reason: SOB, congestion, desats Last Admin: 11/28/16 06:08 Dose: 3 ml Furosemide (Lasix) 40 mg IVP DAILY [facility] Last Admin: 11/17/16 09:00 Dose: 40 mg Heparin Sodium (Porcine) (Heparin) 5,000 units SC Q12 [facility] PRN Reason: Protocol Last Admin: 11/16/16 21:44 Dose: Not Given Hydrocortisone Sodium Succinate (Solu-Cortef) 50 mg IVP Q12H [facility] Last Admin: 11/29/16 01:39 Dose: 50 mg Metronidazole (Flagyl) 500 mg in 100 mls @ 100 mls/hr IVPB Q8 [facility] PRN Reason: Protocol Last Admin: 11/29/16 05:18 Dose: 100 mls/hr Vasopressin 20 units/ Dextrose 101 mls @ 9.09 mls/hr IV .Q11H7M [facility]; 0.03 U/MIN PRN Reason: Protocol Last Admin: 11/25/16 21:00 Dose: 9.09 mls/hr Multivitamins/Vitamin C 10 ml/Amino Acids/Electrolytes/Dextrose 2,010 mls @ 83 mls/hr IV .Q24H [facility] Stop: 11/29/16 17:59 Last Admin: 11/28/16 17:34 Dose: 83 mls/hr Fat Emulsion Intravenous (Intralipid 20%) 250 mls @ 21 mls/hr IV MWF@1800 [facility] Stop: 11/29/16 17:59 Last Admin: 11/27/16 21:11 Dose: 21 mls/hr Levetiracetam 750 mg/ Sodium (Chloride) 107.5 mls @ 460 mls/hr IV Q12 [facility] Last Admin: 11/28/16 22:03 Dose: 460 mls/hr Lactulose (Enulose) 20 gm PO Q3H [facility] Last Admin: 11/29/16 08:21 Dose: 20 gm Pantoprazole Sodium (Protonix Inj) 40 mg IVP Q12 [facility] Last Admin: 11/28/16 10:00 Dose: 40 mg Rifaximin (Xifaxan) 550 mg PO BID [facility] PRN Reason: Protocol Last Admin: 11/19/16 14:57 Dose: Not Given Rifaximin (Xifaxan) 550 mg PO BID [facility] PRN Reason: Protocol Last Admin: 11/28/16 17:59 Dose: 550 mg - Labs Labs: 11/29/16 05:30 11/29/16 05:30 PT 39.7 Seconds (9.9-11.8) H* 11/29/16 05:30 INR 3.68 (0.93-1.08) H* 11/29/16 05:30 APTT 140.3 Seconds (23.7-30.8) H* 11/29/16 05:30 - Head Exam Head Exam: ATRAUMATIC - Eye Exam Eye Exam: Scleral icterus - ENT Exam ENT Exam: Mucous Membranes Dry - Respiratory Exam Respiratory Exam: Decreased Breath Sounds - Cardiovascular Exam Cardiovascular Exam: +S1, +S2 - GI/Abdominal Exam GI & Abdominal Exam: Normal Bowel Sounds - Extremities Exam Extremities Exam: Pedal Edema Assessment and Plan (1) Coagulopathy Assessment & Plan: DIC nutritional s/p vit k, cryopercipitate Status: Acute (2) Thrombocytopenia Assessment & Plan: secondary to DIC s/p plt transfusion Status: Acute (3) Sickle cell pain crisis Assessment & Plan: with multiorgan failure s/p red cell exchange x 2 Status: Acute (4) Iron overload due to repeated red blood cell transfusions Assessment & Plan: with liver disease transfer declined by outside hospital Status: Acute (5) Leukocytosis Assessment & Plan: on antibiotics likely reactive component from sickle cell Status: Acute
--- NOTE | 2016-11-29 13:22 | CP.PCM.PN ---
Subjective - Date & Time of Evaluation Date of Evaluation: 11/28/16 Time of Evaluation: 19:00 - Subjective Subjective: On bipap, family at bedside, irregular breathing Objective - Vital Signs/Intake and Output Vital Signs (last 24 hours): Temp Pulse Resp BP Pulse Ox 98.3 F 89 19 81/33 L 100 11/29/16 08:00 11/29/16 09:02 11/29/16 09:07 11/29/16 08:02 11/29/16 08:02 Intake and Output: 11/29/16 11/29/16 06:59 18:59 Intake Total 1096 Output Total 25 Balance 1071 - Medications Medications: Current Medications Albumin Human (Albumin Human 25% (12.5 Gm/50 Ml)) 12.5 gm IV Q6H [facility] Last Admin: 11/29/16 08:24 Dose: 12.5 gm Albuterol/Ipratropium (Duoneb 3 Mg/0.5 Mg (3 Ml) Ud) 3 ml IH [id number] [facility] Last Admin: 11/29/16 07:30 Dose: 3 ml Albuterol/Ipratropium (Duoneb 3 Mg/0.5 Mg (3 Ml) Ud) 3 ml IH [id number] PRN PRN Reason: SOB, congestion, desats Last Admin: 11/28/16 06:08 Dose: 3 ml Furosemide (Lasix) 40 mg IVP DAILY [facility] Last Admin: 11/17/16 09:00 Dose: 40 mg Heparin Sodium (Porcine) (Heparin) 5,000 units SC Q12 [facility] PRN Reason: Protocol Last Admin: 11/16/16 21:44 Dose: Not Given Hydrocortisone Sodium Succinate (Solu-Cortef) 50 mg IVP Q12H [facility] Last Admin: 11/29/16 01:39 Dose: 50 mg Metronidazole (Flagyl) 500 mg in 100 mls @ 100 mls/hr IVPB Q8 [facility] PRN Reason: Protocol Last Admin: 11/29/16 05:18 Dose: 100 mls/hr Vasopressin 20 units/ Dextrose 101 mls @ 9.09 mls/hr IV .Q11H7M [facility]; 0.03 U/MIN PRN Reason: Protocol Last Admin: 11/25/16 21:00 Dose: 9.09 mls/hr Multivitamins/Vitamin C 10 ml/Amino Acids/Electrolytes/Dextrose 2,010 mls @ 83 mls/hr IV .Q24H [facility] Stop: 11/29/16 17:59 Last Admin: 11/28/16 17:34 Dose: 83 mls/hr Fat Emulsion Intravenous (Intralipid 20%) 250 mls @ 21 mls/hr IV MWF@1800 [facility] Stop: 11/29/16 17:59 Last Admin: 11/27/16 21:11 Dose: 21 mls/hr Levetiracetam 750 mg/ Sodium (Chloride) 107.5 mls @ 460 mls/hr IV Q12 [facility] Last Admin: 11/28/16 22:03 Dose: 460 mls/hr Lactulose (Enulose) 20 gm PO Q3H [facility] Last Admin: 11/29/16 08:21 Dose: 20 gm Pantoprazole Sodium (Protonix Inj) 40 mg IVP Q12 [facility] Last Admin: 11/28/16 10:00 Dose: 40 mg Rifaximin (Xifaxan) 550 mg PO BID [facility] PRN Reason: Protocol Last Admin: 11/19/16 14:57 Dose: Not Given Rifaximin (Xifaxan) 550 mg PO BID [facility] PRN Reason: Protocol Last Admin: 11/28/16 17:59 Dose: 550 mg - Labs Labs: 11/29/16 05:30 11/29/16 05:30 PT 39.7 Seconds (9.9-11.8) H* 11/29/16 05:30 INR 3.68 (0.93-1.08) H* 11/29/16 05:30 APTT 140.3 Seconds (23.7-30.8) H* 11/29/16 05:30 - Head Exam Head Exam: ATRAUMATIC - Eye Exam Eye Exam: Scleral icterus - ENT Exam ENT Exam: Mucous Membranes Dry - Respiratory Exam Respiratory Exam: Decreased Breath Sounds - Cardiovascular Exam Cardiovascular Exam: +S1, +S2 - GI/Abdominal Exam GI & Abdominal Exam: Normal Bowel Sounds - Extremities Exam Extremities Exam: Pedal Edema Assessment and Plan (1) Sickle cell pain crisis Assessment & Plan: with multiorgan failure s/p red cell exchange x 2 Status: Acute (2) Iron overload due to repeated red blood cell transfusions Assessment & Plan: with liver disease declined transfer by outside hospital for liver transplant evaluation Status: Acute (3) Coagulopathy Assessment & Plan: DIC, nutritional s/p vit k, FFP, cryopercipitate Status: Acute (4) Thrombocytopenia Assessment & Plan: DIC s/p plt transfusion Status: Acute (5) Leukocytosis Assessment & Plan: on antibiotics reactive to sickle cell Status: Acute
== END 2016-11-29 09:09 | DRG 581 ==
LOC: ED 20:35 → ERH 21:50 → 5RNO 23:18 → OBSVTOIN 11-13 17:02 → CCU 11-15 10:43
PROVIDERS: ADMIT Hospitalist; ATTEND Internal Medicine
PROC: 30233K1 Transfusion of Nonautologous Frozen Plasma into Peripheral Vein, Percutaneous Approach (ICD-10-PCS; 2016-11-16)
PROC: 5A1945Z Respiratory Ventilation, 24-96 Consecutive Hours (ICD-10-PCS; principal; 2016-11-17)
PROC: 0BH18EZ Insertion of Endotracheal Airway into Trachea, Via Natural or Artificial Opening Endoscopic (ICD-10-PCS; 2016-11-17)
PROC: 5A1D70Z Performance of Urinary Filtration, Intermittent, Less than 6 Hours Per Day (ICD-10-PCS; 2016-11-17)
PROC: 06HN33Z Insertion of Infusion Device into Left Femoral Vein, Percutaneous Approach (ICD-10-PCS; 2016-11-17)
PROC: 30233N1 Transfusion of Nonautologous Red Blood Cells into Peripheral Vein, Percutaneous Approach (ICD-10-PCS; 2016-11-17)
PROC: 6A551Z2 Pheresis of Platelets, Multiple (ICD-10-PCS; 2016-11-18)
PROC: 06HY33Z Insertion of Infusion Device into Lower Vein, Percutaneous Approach (ICD-10-PCS; 2016-11-19)
PROC: 3E033XZ Introduction of Vasopressor into Peripheral Vein, Percutaneous Approach (ICD-10-PCS; 2016-11-19)
PROC: 3E0G8GC Introduction of Other Therapeutic Substance into Upper GI, Via Natural or Artificial Opening Endoscopic (ICD-10-PCS; 2016-11-19)
PROC: 0DJ08ZZ Inspection of Upper Intestinal Tract, Via Natural or Artificial Opening Endoscopic (ICD-10-PCS; 2016-11-19)
PROC: 0W9G3ZX Drainage of Peritoneal Cavity, Percutaneous Approach, Diagnostic (ICD-10-PCS; 2016-11-26)
PROC: 02H633Z Insertion of Infusion Device into Right Atrium, Percutaneous Approach (ICD-10-PCS; 2016-11-27)
PROC: B544ZZA Ultrasonography of Left Jugular Veins, Guidance (ICD-10-PCS; 2016-11-27)
PROC: 5A09357 Assistance with Respiratory Ventilation, Less than 24 Consecutive Hours, Continuous Positive Airway Pressure (ICD-10-PCS; 2016-11-28)
DX: A41.9 Sepsis, unspecified organism (principal); D57.01 Hb-SS disease with acute chest syndrome; K72.00 Acute and subacute hepatic failure without coma; J96.01 Acute respiratory failure with hypoxia; N17.0 Acute kidney failure with tubular necrosis; D65 Disseminated intravascular coagulation [defibrination syndrome]; G93.41 Metabolic encephalopathy; N18.6 End stage renal disease; R18.8 Other ascites; I50.23 Acute on chronic systolic (congestive) heart failure; R65.21 Severe sepsis with septic shock; I42.9 Cardiomyopathy, unspecified; N39.0 Urinary tract infection, site not specified; K74.60 Unspecified cirrhosis of liver; E87.5 Hyperkalemia; E87.2 Acidosis; I13.2 Hypertensive heart and chronic kidney disease with heart failure and with stage 5 chronic kidney disease, or end stage renal disease; R57.1 Hypovolemic shock; E83.111 Hemochromatosis due to repeated red blood cell transfusions; E83.42 Hypomagnesemia; J45.909 Unspecified asthma, uncomplicated; G80.9 Cerebral palsy, unspecified; F31.9 Bipolar disorder, unspecified; E16.2 Hypoglycemia, unspecified; I27.20 Pulmonary hypertension, unspecified; T85.838A Hemorrhage due to other internal prosthetic devices, implants and grafts, initial encounter; Y84.8 Other medical procedures as the cause of abnormal reaction of the patient, or of later complication, without mention of misadventure at the time of the procedure; M79.A3 Nontraumatic compartment syndrome of abdomen; E83.51 Hypocalcemia; B95.2 Enterococcus as the cause of diseases classified elsewhere; Z66 Do not resuscitate; K52.9 Noninfective gastroenteritis and colitis, unspecified; R40.2420 Glasgow coma scale score 9-12, unspecified time; Z87.891 Personal history of nicotine dependence; Z99.2 Dependence on renal dialysis; Z88.5 Allergy status to narcotic agent; Z88.6 Allergy status to analgesic agent